=== PATIENT | male | born 1965 | race Caucasian/White ===

== ENCOUNTER 2021-02-02 20:21 | Emergency (ER) | payer SELFPAY ==
--- OUTSIDE RECORDS SUMMARY | 2021-02-02 20:24 | XMS REPORT | Continuity of Care Document ---
:1965 Author Organization [facility] t Address [address] [place] [address] Care Team Providers Name Role Phone Unavailable Unavailable Unavailable Problems This patient has no known problems. Allergies, Adverse Reactions, Alerts This patient has no known allergies or adverse reactions. Medications Ordered Filled Start Stop Current Ordering Indication Dosage Frequency Signature Comments Components Source Medication Medication Date Date Medication? Clinician (SIG) Name Name Glimepiride Glimepiride 2018-0 Yes Nichelle [address] [facility] Procedures This patient has no known procedures. Encounters Start End Encounter Admission Attending Care Care Encounter Source Date/Time Date/Time Type Type Clinicians Facility Department ID 2020-07-09 2020-07-09 Outpatient [facility] [id number] [facility] 2020-03-13 2020-03-13 Outpatient [facility] [id number] [facility] 2019-11-20 2019-11-20 [facility] [id number] [facility] 14:20[facility]00 14:20:00 [facility] Outpat[facility] ent Clinics 2019-11-19 2019-11-19 [facility] [id number] [facility] 11:47:00 11:47:00 [facility] Medicine Outpat[facility] Clinics 2019-09-19 2019-09-19 [facility] [id number] [facility] 10:20:00 10:20:00 [facility] Medicine Outpati ent Clinics 2019-09-17 2019-09-17 [facility] [id number] 09:17:00 09:17:00 [facility] Medicine Outpati ent Clinics 2019-09-10 2019-09-10 [facility] [id number] [facility] 15:32:00 15:32:00 [facility] Medicine Outpati ent Clinics 2018-09-04 2018-09-04 [facility] [id number] [facility] 15[facility]00[facility]00 15:00:00 [facility] Results This patient has no known results.
--- NOTE | 2021-02-02 21:58 | ER ---
Nurse's Notes [facility] Name: Boyd Jones Age: 55 yrs Sex: Male : 1965 Arrival Date: 02/02/2021 Time: 20:23 Bed Waiting Private MD: Diagnosis: ED Course: 02/02 20:23 Patient arrived in ED. bp1 20:38 Patient's name was called from ER lobby. No response. bb 21:58 Patient's name was called from ER lobby. No response. Unable to locate patient. Will bb disposition as left without being seen by a provider. Administered Medications: No medications were administered Outcome: 21:58 Patient left the ED. bb Signatures: Sally Astorga RN RN bb Misti Frank bp1
== END 2021-02-02 21:58 | disposition left against medical advice (07) ==
LOC: ER 20:21
DX: Z02.9 Encounter for administrative examinations, unspecified (principal)

== ENCOUNTER 2021-03-10 16:58 | Emergency (ER) | payer SELFPAY ==
[2021-03-10 19:18] LABS: SARS-COV-2 RT PCR POSITIVE (NEGATIVE)
[2021-03-10] MEDS ORDERED: IBUPROFEN 400 MG TAB ONE (21:53)
[2021-03-10] MEDS ORDERED: CASIRIVIMAB/IMDEVIMAB 10 ML VIAL ONE ×2 (22:09→22:11)
[2021-03-10] MEDS ORDERED: NA CHLORIDE 0.9% 250 ML ONE (22:11)
--- NOTE | 2021-03-11 00:48 | ER ---
[facility]'s Notes [facility] Name: Boyd Jones Age: 55 yrs Sex: Male : 1965 Arrival Date: 03/10/2021 Time: 16:59 Bed 30 Private MD: Nichelle Alvares Diagnosis: Coronavirus infection, unspecified Presentation: 03/10 17:26 Chief complaint: Patient states: Cough, SOB, low grade fever, loss of taste since ll1 Tuesday. Coronavirus screen: Vaccine status: Patient reports being unvaccinated. Client denies travel out of the [place] in the last 14 days. congestion, cough unrelated to allergies, difficulty breathing, fatigue, fever, headache, loss of taste or smell, Client presents with at least one sign or symptom that may indicate coronavirus-19. Standard/surgical mask placed on the client. Ebola Screen: Patient denies travel to an Ebola-affected area in the 21 days before illness onset. Initial Sepsis Screen: Does the patient meet any 2 criteria? HR > 90 bpm. No. Patient's initial sepsis screen is negative. Does the patient have a suspected source of infection? Yes: Productive cough/pneumonia. Risk Assessment: Do you want to hurt yourself or someone else? Patient reports no desire to harm self or others. Onset of symptoms was March 08, 2021. 17:26 Method Of Arrival: Ambulatory ll1 17:26 Acuity: LARISSA 3 ll1 Triage Assessment: 19:00 General: Appears uncomfortable. Pain: Complains of pain in face. cc4 19:00 General: Behavior is calm, cooperative. Respiratory: No deficits noted. Reports cc4 Nonproductive cough, sneezing, headache x 2 days Airway is patent. 19:00 Respiratory: Onset: The symptoms/episode began/occurred yesterday. cc4 19:00 Respiratory: the patient has mild shortness of breath. cc4 Historical: - Allergies: 17:25 No Known Allergies; ll1 - PMHx: 17:25 Diabetes - NIDDM; ll1 - PSHx: 17:25 None; ll1 - Immunization history:: Client reports having NOT received the Covid vaccine. Flu vaccine status is unknown. - Social history:: Smoking status: Patient denies any tobacco usage or history of. - Code Status:: Full code. Screenin:00 Abuse screen: Denies threats or abuse. Nutritional screening: No deficits noted. cc4 Tuberculosis screening: No symptoms or risk factors identified. Never had TB. Fall Risk None identified. Assessment: 19:00 Respiratory: Airway is patent Breath sounds are clear. cc4 19:00 Respiratory: Respiratory effort is even, unlabored, SOB on exertion. cc4 19:00 Cardiovascular: Rhythm is sinus rhythm No ectopy noted. cc4 22:10 Reassessment: Patient appears in no apparent distress at this time. IVPB Rengen-cov cc4 120mg/ml/250ml NS hung \T\ infusing with no difficulty left wrist saline lock; consent signed; information on Regen given to pt \T\ read.. 23:15 Reassessment: Patient appears in no apparent distress at this time. Reports decreasing cc4 headache; Regen-cov infusion complete with no adverse reaction; VSS; instructed on monitoring x 1 hour with v/u.. 03/11 01:15 Reassessment: Patient appears in no apparent distress at this time. Bicillin LA 1.2 mu cc4 given IM RUOQ gluteal, antonella. well.. 01:45 Reassessment: c/o chills; denies any SOB; no rash noted; no resp distress noted; J. cc4 CE Hitchcock notified with new order received; acetaminophen 1 g given po with discharge instructions, v/u.. Vital Signs: 03/10 17:26 BP 116 / 78; Pulse 93; Resp 17; Temp 98.6; Pulse Ox 99% ; Weight 108.86 kg; Height 5 ll1 ft. 9 in. (175.26 cm); Pain 8/10; 18:55 BP 116 / 76; Pulse 88; Resp 20; Pulse Ox 97% on R/A; ll1 21:30 BP 113 / 92; Pulse 81; Resp 22; Temp 99.4; Pulse Ox 100% on R/A; cc4 22:10 BP 120 / 81; Pulse 83; Resp 20; Pulse Ox 98% on R/A; cc4 23:15 BP 108 / 78; Pulse 81; Resp 20; Temp 99.2; Pulse Ox 97% on R/A; cc4 23:15 BP 108 / 78; Pulse 81; Resp 20; Temp 99.2(O); cc4 03/11 01:30 Temp 98.8(O); dc2 01:45 BP 143 / 81; Pulse 89; Resp 20; Temp 98.8(O); cc4 03/10 17:26 Body Mass Index 35.44 (108.86 kg, 175.26 cm) ll1 ED Course: 03/10 16:59 Patient arrived in ED. am2 16:59 Nichelle Alvares FNP-C is Private Physician. am2 17:25 Arm band placed on. ll1 17:27 Triage completed. ll1 19:00 Patient has correct armband on for positive identification. Bed in low position. Side cc4 rails up X 1. traffic monitor specialist on. Pulse ox on. NIBP on. 19:00 No provider procedures requiring assistance completed. COVID swab sent to lab. Flu cc4 and/or RSV swab sent to lab. Strep swab sent to lab. 19:03 Andrew Trent PA is PHCP. jacinto 19:03 Gonzalo Jones MD is Attending Physician. jacinto 19:14 Leanne Bauer is Primary Nurse. kh1 21:31 Inserted saline lock: 22 gauge in left wrist, using aseptic technique. vg1 03/11 01:45 IV discontinued, bleeding controlled, No redness/swelling at site. Pressure dressing cc4 applied. Administered Medications: 03/10 21:53 Drug: Ibuprofen 400 mg Route: PO; cc4 22:10 Drug: Casirivimab-Imdevimab Dose Pack 120 mg/mL-120 mg/mL (EUA) 1 application Route: cc4 IV; Rate: calculated rate; Site: left wrist; 23:15 Follow up: BP 108 / 78; Pulse 81 bpm; Resp 20 bpm; Temp 99.2 Oral; Response: No adverse cc4 reaction 03/11 01:10 Drug: Bicillin L-A (penicillin G Benzathine) 1.2 million units Route: IM; Site: right cc4 gluteus; 01:45 Follow up: Response: No adverse reaction cc4 01:45 Drug: Tylenol 1000 mg Route: PO; cc4 Outcome: 03/10 19:00 Condition: stable cc4 03/11 00:48 Discharge ordered by . thalia 01:45 Discharged to home via wheelchair. cc4 01:45 Condition: unchanged 01:45 Discharge instructions given to patient, Instructed on discharge instructions, follow up and referral plans. medication usage, Demonstrated understanding of instructions, follow-up care, medications. 03:13 Patient left the ED. cc4 Signatures: Andrew Trent PA PA jmm Moreno, Amanda am2 Garcia, Victoria, RN RN vg1 Nano Goncalves RN RN ll1 Leanne Bauer 1 Kathy Marin cc4 Krystal Larkin RN RN dc2 Corrections: (The following items were deleted from the chart) 03/10 23:44 23:33 Cardiovascular: Rhythm is sinus rhythm No ectopy. cc4 cc4 03/11 02:51 02:43 BP 143 / 81; Pulse 89 bpm; Resp 18 bpm; Temp 98.8; Response: No adverse reaction cc4 cc4
--- NOTE | 2021-03-11 00:48 | EDPHYS ---
Physician Documentation [facility] Name: Boyd Jones Age: 55 yrs Sex: Male : 1965 Arrival Date: 03/10/2021 Time: 16:59 Bed 30 Private MD: Nichelle Alvares ED Physician Gonzalo Jones HPI: 03/10 23:38 This 55 yrs old Male presents to ER via Ambulatory with complaints of Cough, jmm Breathing Difficulty. 23:38 The patient or guardian reports cough. Onset: The symptoms/episode began/occurred jmm gradually. Modifying factors: The symptoms are alleviated by nothing, the symptoms are aggravated by nothing. This is a 55 year old male with a history of dm that presents to the ED with complaints of sore throat, cough, shortness of breath beginning this past Tuesday. Is not immunized for coronavirus. . Historical: - Allergies: 17:25 No Known Allergies; ll1 - PMHx: 17:25 Diabetes - NIDDM; ll1 - PSHx: 17:25 None; ll1 - Immunization history:: Client reports having NOT received the Covid vaccine. Flu vaccine status is unknown. - Social history:: Smoking status: Patient denies any tobacco usage or history of. - Code Status:: Full code. ROS: 23:38 Constitutional: Positive for body aches, fatigue, fever. jmm 23:38 Cardiovascular: Positive for chest pain, with cough. 23:38 All other systems are negative. Exam: 23:38 Constitutional: This is a well developed, well nourished patient who is awake, alert, jmm and in no acute distress. Head/Face: atraumatic. Eyes: EOMI, no conjunctival erythema appreciated ENT: Moist Mucus Membranes Neck: Trachea midline, Supple Chest/axilla: Normal chest wall appearance and motion. Cardiovascular: Regular rate and rhythm. No edema appreciated Respiratory: Normal respirations, no respiratory distress appreciated Abdomen/GI: Non distended, soft Back: Normal ROM Skin: General appearance color normal MS/ Extremity: Moves all extremities, no obvious deformities appreciated, no edema noted to the lower extremities Neuro: Awake and alert, normal gait Psych: Behavior is normal, Mood is normal, Patient is cooperative and pleasant Vital Signs: 17:26 BP 116 / 78; Pulse 93; Resp 17; Temp 98.6; Pulse Ox 99% ; Weight 108.86 kg; Height 5 ll1 ft. 9 in. (175.26 cm); Pain 8/10; 18:55 BP 116 / 76; Pulse 88; Resp 20; Pulse Ox 97% on R/A; ll1 21:30 BP 113 / 92; Pulse 81; Resp 22; Temp 99.4; Pulse Ox 100% on R/A; cc4 22:10 BP 120 / 81; Pulse 83; Resp 20; Pulse Ox 98% on R/A; cc4 23:15 BP 108 / 78; Pulse 81; Resp 20; Temp 99.2; Pulse Ox 97% on R/A; cc4 23:15 BP 108 / 78; Pulse 81; Resp 20; Temp 99.2(O); cc4 03/11 01:30 Temp 98.8(O); dc2 01:45 BP 143 / 81; Pulse 89; Resp 20; Temp 98.8(O); cc4 03/10 17:26 Body Mass Index 35.44 (108.86 kg, 175.26 cm) ll1 MDM: 03/10 19:42 Patient medically screened. [facility] 03/11 00:44 Data reviewed: vital signs, nurses notes. Counseling: I had a detailed discussion with thalia the patient and/or guardian regarding: the historical points, exam findings, and any diagnostic results supporting the discharge/admit diagnosis, lab results, radiology results, the need for outpatient follow up, to return to the emergency department if symptoms worsen or persist or if there are any questions or concerns that arise at home. 03/10 17:29 Order name: Strep; Complete Time: 19:04 [facility] 03/10 19:19 Order name: COVID-19/FLU A+B; Complete Time: 19:43 [facility] 03/10 17:29 Order name: Droplet/Contact Precautions; Complete Time: 19:33 ll1 03/10 17:29 Order name: Labs collected and sent; Complete Time: 17:34 ll1 03/10 17:29 Order name: O2 Per Protocol; Complete Time: 19:33 ll1 Administered Medications: 03/10 21:53 Drug: Ibuprofen 400 mg Route: PO; cc4 22:10 Drug: Casirivimab-Imdevimab Dose Pack 120 mg/mL-120 mg/mL (EUA) 1 application Route: cc4 IV; Rate: calculated rate; Site: left wrist; 23:15 Follow up: BP 108 / 78; Pulse 81 bpm; Resp 20 bpm; Temp 99.2 Oral; Response: No adverse cc4 reaction 03/11 01:10 Drug: Bicillin L-A (penicillin G Benzathine) 1.2 million units Route: IM; Site: right cc4 gluteus; 01:45 Follow up: Response: No adverse reaction cc4 01:45 Drug: Tylenol 1000 mg Route: PO; cc4 Disposition: 07:21 Co-signature as Attending Physician, Gonzalo Jones MD I agree with the assessment and hattie plan of care. Disposition Summary: 03/11/21 00:48 Discharge Ordered Location: Home [facility] Condition: Stable [facility] Diagnosis - Coronavirus infection, unspecified [facility] Followup: jm - With: Private Physician - When: 2 - 3 days - Reason: Recheck today's complaints, Continuance of care, Re-evaluation by your physician Discharge Instructions: - Discharge Summary Sheet [facility] - COVID-19 [facility] Forms: - Medication Reconciliation Form [facility] - Thank You Letter jm - Antibiotic Education jm - Prescription Opioid Use [facility] Signatures: Dispatcher [employer] EDGonzalo Lora MD MD cha Mickail, Joel, PA PA jmm Lewis, Lynsay, RN RN ll1 Kathy Marin cc4 Corrections: (The following items were deleted from the chart) 03/10 18:00 17:30 Influenza Screen (A ordered. EDMS EDMS 18:00 17:30 Influenza Screen (A \T\ B)+[id number].BRZ ordered. EDMS EDMS
[2021-03-11] MEDS ORDERED: PEN G BENZ LA 1.2MU/2ML SYRINGE IM ONE (01:34)
[2021-03-11] MEDS ORDERED: ACETAMINOPHEN 500 MG TAB ONE (02:12)
[2021-03-11 04:46] VITALS: O2SAT 97
[2021-03-11 04:47] VITALS: TEMP 98.8
[2021-03-11 04:48] VITALS: BP 143/81
== END 2021-03-11 03:13 | disposition home or self-care (01) ==
LOC: ER 16:58
DX: U07.1 COVID-19 (principal); E11.9 Type 2 diabetes mellitus without complications
CPT/HCPCS: 0240U; 87081; 96372; 96374; 99284; J0561; J7050

== ENCOUNTER 2021-03-26 10:06 | Inpatient (IN) | payer SELFPAY ==
[2021-03-26 10:47] LABS: Absolute Lymphocytes (CBC) 1.1 K/uL (0.7-4.9); Basophils % 0.2 % (0-1.3); Hematocrit 43.3 % (39.6-49.0); Lymphocytes % 8.5 % (15.3-44.8); MPV 8.8 fL (7.6-11.3); RBC Red Blood Cell Count 4.78 M/uL (4.33-5.43)
[2021-03-26 10:53] LABS: Protime INR 1.26
[2021-03-26] MEDS ORDERED: NA CHLORIDE 0.9% 1,000 ML ONE (11:01)
[2021-03-26] MEDS ORDERED: ACETAMINOPHEN 500 MG TAB ONE (11:01)
[2021-03-26 11:10] LABS: ALT/SGPT 116 U/L (12-78); AST/SGOT 50 U/L (15-37); Alkaline Phosphatase 112 U/L (45-117); BUN Blood Urea Nitrogen 25 mg/dL (7-18); Bicarbonate 26 mmol/L (21-32); Bilirubin Direct 0.2 mg/dL (0-0.2); Bilirubin Total 0.4 mg/dL (0.2-1.0); Ferritin 1553.5 ng/mL (26-388); Glucose Level 345 mg/dL (74-106); Magnesium 1.6 mg/dL (1.8-2.4); NT PRO-BNP 1221 pg/mL (<125); Potassium 4.1 mmol/L (3.5-5.1); Protein, Total 7.9 g/dL (6.4-8.2); Sodium Level 134 mmol/L (136-145); Troponin (Emerg Dept Use Only) < 0.02 ng/mL (0.0-0.045)
--- NOTE | 2021-03-26 11:12 | RAD REPORT ---
EXAM DESCRIPTION: RAD - Chest Single View - 03/26/2021 10:59 am CLINICAL HISTORY: Cough;Dyspnea Chest pain. COMPARISON: CHEST SINGLE VIEW dated 01/27/2010 FINDINGS: Portable technique limits examination quality. Moderate bibasilar pulmonary opacities are present, greater on the right, most compatible with underl chanelle COVID infection. The heart is normal in size. No displaced fractures.
--- NOTE | 2021-03-26 11:18 | EDPHYS ---
Physician Documentation [facility] Name: Boyd Jones Age: 55 yrs Sex: Male : 1965 Arrival Date: 03/26/2021 Time: 10:08 Bed 24 Private MD: Gonzalo Ronquillo HPI: 03/26 10:45 This 55 yrs old Male presents to ER via EMS with complaints of cp and sob, hattie covid. 10:45 The patient has shortness of breath at rest, with light activity. Onset: The hattie symptoms/episode began/occurred last night. Duration: The symptoms are continuous, and are steadily getting worse. The patient's shortness of breath is aggravated by coughing, exertion, light activity, is alleviated by sitting up, application of supplemental oxygen. The patient or guardian reports chest pain that is located primarily in the anterior chest wall, chest diffusely. Onset: last night. The patient or guardian reports airway noise, cough, difficulty breathing, flu symptoms. Modifying factors: The symptoms are alleviated by elevating head, remaining still, rest, the symptoms are aggravated by activity, lying flat, talking. The pain does not radiate. Associated signs and symptoms: Pertinent positives: non-productive cough, fever. Historical: - Allergies: 10:20 No Known Allergies; tc5 - PMHx: 10:20 Hypertensive disorder; tc5 - Immunization history:: Adult Immunizations not up to date, Client reports having NOT received the Covid vaccine. Last tetanus immunization: > 10 years ago. - Social history:: Smoking status: Patient denies any tobacco usage or history of. Patient uses alcohol, occasionally. - Family history:: not pertinent. ROS: 10:45 Eyes: Negative for injury, pain, redness, and discharge, ENT: Negative for injury, hattie pain, and discharge, Neck: Negative for injury, pain, and swelling, Cardiovascular: Negative for chest pain, palpitations, and edema, Abdomen/GI: Negative for abdominal pain, nausea, vomiting, diarrhea, and constipation, Back: Negative for injury and pain, : Negative for injury, bleeding, discharge, and swelling, MS/Extremity: Negative for injury and deformity, Skin: Negative for injury, rash, and discoloration, Neuro: Negative for headache, weakness, numbness, tingling, and seizure, Psych: Negative for depression, anxiety, suicide ideation, homicidal ideation, and hallucinations, Allergy/Immunology: Negative for hives, rash, and allergies, Endocrine: Negative for neck swelling, polydipsia, polyuria, polyphagia, and marked weight changes, Hematologic/Lymphatic: Negative for swollen nodes, abnormal bleeding, and unusual bruising. 10:45 Constitutional: Positive for body aches, fatigue, fever. 10:45 Constitutional: Positive for Exam: 10:47 Head/Face: Normocephalic, atraumatic. Eyes: Pupils equal round and reactive to light, hattie extra-ocular motions intact. Lids and lashes normal. Conjunctiva and sclera are non-icteric and not injected. Cornea within normal limits. Periorbital areas with no swelling, redness, or edema. Back: No spinal tenderness. No costovertebral tenderness. Full range of motion. Neuro: Awake and alert, GCS 15, oriented to person, place, time, and situation. Cranial nerves II-XII grossly intact. Motor strength 5/5 in all extremities. Sensory grossly intact. Cerebellar exam normal. Normal gait. Psych: Awake, alert, with orientation to person, place and time. Behavior, mood, and affect are within normal limits. 10:47 Constitutional: The patient appears febrile, in obvious distress, mildly distressed, moderately distressed. 10:47 Cardiovascular: Rate: tachycardic, Rhythm: regular, Pulses: Pulses are 4+ in bilateral radial, brachial, femoral, popliteal, posterior tibial and and dorsalis pedis arteries.. Heart sounds: normal, Edema: is not appreciated, JVD: is not appreciated. 10:47 ECG was reviewed by the Attending Physician. Vital Signs: 10:17 BP 118 / 75; Pulse 114; Resp 30; Temp 100.8; Pulse Ox 96% 5 lpm ; Weight 108.86 kg; tc5 Height 5 ft. 9 in. (175.26 cm); Pain 10/10; 11:50 BP 108 / 79; Pulse 98; Resp 28; Pulse Ox 98% 5 lpm ; tc5 12:35 BP 86 / 61; Pulse 90; Resp 15; Pulse Ox 96% 5 lpm ; tc5 13:45 BP 90 / 59; Pulse 83; Resp 18; Pulse Ox 95% on 5 lpm NC; vg1 10:17 Body Mass Index 35.44 (108.86 kg, 175.26 cm) tc5 MDM: 10:08 Patient medically screened. hattie 10:49 Differential diagnosis: Anxiety Reaction Bronchitis Chronic Obstructive Pulmonary hattie Disease bronchitis, flu, URI, Myocardial Infarction pneumonia, pulmonary edema, reactive airway disease, Unstable Angina. Antibiotic administration: Rocephin and Zithromax given. HEART Score: History: Slightly Suspicious (0), ECG: Non specific repolarization disturbance / LBTB / PM (1), Age: > 45 and < 65 years (1), Risk Factors: > or = 3 Risk factors for atherosclerotic disease (2), [Hypertension] [+ Family HX] [Obesity] Troponin: < or = 1 x Normal Limit (0). The patient was not given aspirin in the Emergency Department. Not indicated due to patient's past medical history. The patient's Wells Deep Vein Thrombosis Score was calculated as follows: the patient has recently been bedridden for more than three days or has received major surgery in the last four weeks (1 Pt) Total Score: 1 to 2 points. This patient was found to be at moderate risk for a deep vein thrombosis by using the Well's assessment criteria Heart Rate >100 BPM (1.5 Pts) Imm/Surg in last 4 wks (1.5 Pts) Total Score: 3-6 Pts - Mod Risk. The patient's pulmonary embolism risk score was calculated as follows: the patients heart rate is greater than 100 beats per minute (1.5 Pts) patient has experienced immobilization or surgery in the last four weeks (1.5 Pts) the patient has a history of a previous deep vein thrombosis or pulmonary embolism (1.5 Pts) Total Score: 3-6 points. This patient was found to be at moderate risk for a pulmonary embolism by using the Well's assessment criteria the patients heart rate is greater than 100 beats per minute (1.5 Pts) patient has experienced immobilization or surgery in the last four weeks (1.5 Pts) Total Score: 3-6 points. This patient was found to be at moderate risk for a pulmonary embolism by using the Well's assessment criteria. DARLINE Risk Score: 1 - Three or more CAD risk factors, TOTAL SCORE = 1. Immunization status: Influenza vaccine: Data reviewed: vital signs, nurses notes, lab test result(s), EKG, radiologic studies, CT scan, plain films. Data interpreted: night monitor: rate is 114 beats/min, rhythm is regular, Pulse oximetry: on room air is 96 %. Test interpretation: by ED physician or midlevel provider: ECG, plain radiologic studies. 03/26 10:10 Order name: Basic Metabolic Panel; Complete Time: 11:25 [facility] 03/26 10:10 Order name: CBC with Diff [facility] 03/26 10:10 Order name: LFT's; Complete Time: 11:25 [facility] 03/26 10:10 Order name: Magnesium; Complete Time: 11:25 [facility] 03/26 10:10 Order name: NT PRO-BNP; Complete Time: 11:25 [facility] 03/26 10:10 Order name: PT-INR; Complete Time: 11:00 [facility] 03/26 10:10 Order name: Troponin (emerg Dept Use Only); Complete Time: 11:25 [facility] 03/26 10:10 Order name: Ferritin; Complete Time: 11:25 [facility] 03/26 10:10 Order name: CRP; Complete Time: 11:25 [facility] 03/26 10:26 Order name: Glucose, Ancillary Testing; Complete Time: 11:00 [facility] 03/26 10:31 Order name: Blood Culture Adult (2) [facility] 03/26 10:31 Order name: Lactate; Complete Time: 11:25 [facility] 03/26 10:59 Order name: SARS-COV-2 RT PCR [facility] 03/26 10:10 Order name: XRAY Chest (1 view); Complete Time: 11:25 [facility] 03/26 10:10 Order name: CT Chest For PE Angio [facility] 03/26 11:11 Order name: INCENTIVE SPIROMETRY [facility] 03/26 12:29 Order name: Manual Differential [facility] 03/26 13:15 Order name: Glucose, Ancillary Testing [facility] 03/26 10:10 Order name: EKG; Complete Time: 10:11 [facility] 03/26 10:10 Order name: Cardiac monitoring; Complete Time: 10:20 [facility] 03/26 10:10 Order name: EKG - Nurse/Tech; Complete Time: 10:20 [facility] 03/26 10:10 Order name: IV Saline Lock; Complete Time: 10:20 [facility] 03/26 10:10 Order name: Labs collected and sent; Complete Time: 12:24 [facility] 03/26 10:10 Order name: O2 Per Protocol; Complete Time: 10:20 [facility] 03/26 10:10 Order name: O2 Sat Monitoring; Complete Time: 10:20 [facility] 03/26 10:10 Order name: Urine Dipstick-Ancillary (obtain specimen) [facility] EC:47 Rate is 123 beats/min. Rhythm is regular. QRS [place] is Normal. MD interval is normal. hattie QRS interval is normal. QT interval is normal. No Q waves. T waves are Normal. No ST changes noted. Clinical impression: Sinus tachycardia and No evidence of ischemia. Interpreted by me. Reviewed by me. Administered Medications: 10:35 Drug: Tylenol 1000 mg Route: PO; tc5 11:18 Follow up: Response: No adverse reaction tc5 10:42 Drug: NS 0.9% 1000 ml Route: IV; Rate: 1 bolus; Site: left antecubital; tc5 11:10 Drug: Lovenox (enoxaparin) 100 mg Route: Sub-Q; Site: abdomen; tc5 16:05 Follow up: Response: No adverse reaction tc5 11:15 Drug: Rocephin (cefTRIAXone) 1 grams Route: IV; Rate: per protocol; Site: left tc5 antecubital; 11:15 Drug: Pepcid (famotidine) 20 mg Route: IVP; Site: left antecubital; tc5 16:06 Follow up: Response: No adverse reaction tc5 11:50 Drug: Zithromax (azithromycin) 500 mg Route: IVPB; Infused Over: 1 hrs; Site: left hand;tc5 12:20 Drug: Aspirin Chewable Tablet 162 mg Route: PO; tc5 16:04 Follow up: Response: No adverse reaction tc5 12:25 Drug: SOLU-Medrol (methylPrednisoLONE) 125 mg Route: IVP; Site: left antecubital; tc5 16:04 Follow up: Response: No adverse reaction tc5 12:26 Drug: Zofran (Ondansetron) 4 mg Route: IVP; Site: left antecubital; tc5 16:05 Follow up: Response: No adverse reaction tc5 12:28 Drug: morphine 2 mg Route: IVP; Site: left antecubital; tc5 16:05 Follow up: Response: No adverse reaction; Pain is decreased tc5 13:03 Drug: Singulair 10 mg Route: PO; tc5 16:05 Follow up: Response: No adverse reaction tc5 Point of Care Testing: Blood Glucose: 10:24 Blood Glucose: 334 mg/dL; tc5 Ranges: Critical Glucose Levels:Adult <50 mg/dl or >400 mg/dl <40 mg/dl or >180 mg/dl Disposition Summary: 03/26/21 11:17 Hospitalization Ordered Hospitalization Status: Inpatient Admission hattie Provider: Tao Tabor cha Location: Telemetry/MedSurg (Inpatient) hattie Condition: Fair hattie Problem: new hattie Symptoms: have improved hattie Bed/Room Type: Standard [facility] Room Assignment: 402(03/26/21 14:52) dw Diagnosis - Chest pain on breathing hattie - Coronavirus infection, unspecified hattie - Pneumonia due to SARS-associated coronavirus hattie - Pulmonary embolism without acute cor pulmonale hattie - Fever, unspecified hattie - Dyspnea hattie Forms: - Medication Reconciliation Form hattie - SBAR form hattie Signatures: Dispatcher [employer] EDMS Michelle Kaufman RN RN Gonzalo Gonzalez MD MD cha Attema, Lee la3 Kavita Rothman RN RN tc5 Corrections: (The following items were deleted from the chart) 10:59 10:45 CORONAVIRUS+[id number].BRZ ordered. EDCA EDMS 14:52 11:17 hattie dw
--- NOTE | 2021-03-26 11:18 | ER ---
Nurse's Notes [facility] Name: Boyd Jones Age: 55 yrs Sex: Male : 1965 Arrival Date: 03/26/2021 Time: 10:08 Bed 24 Private MD: Diagnosis: Chest pain on breathing;Coronavirus infection, unspecified;Pneumonia due to SARS-associated coronavirus;Pulmonary embolism without acute cor pulmonale;Fever, unspecified;Dyspnea Presentation: 03/26 10:17 Chief complaint: EMS states: increased SOB, COVID pos 03/05/21, discharged from the [facility] hospital yesterday on home 02. Coronavirus screen: Vaccine status: Patient reports being unvaccinated. Client presents with at least one sign or symptom that may indicate coronavirus-19. Provider contacted for isolation considerations. Client reports previous positive COVID test result. Ebola Screen: No symptoms or risks identified at this time. Initial Sepsis Screen: Does the patient meet any 2 criteria? RR > 20 per min. HR > 90 bpm. Risk Assessment: Do you want to hurt yourself or someone else? Patient reports no desire to harm self or others. Onset of symptoms was March 25, 2021 at 22:00. 10:17 Method Of Arrival: EMS: [facility] 10:17 Acuity: LARISSA 2 [facility] Triage Assessment: 10:22 General: Appears distressed, Behavior is cooperative, anxious. Pain: Complains of pain tc5 in diaphragm. Neuro: No deficits noted. Cardiovascular: No deficits noted. ST on monitor.. Respiratory: Reports shortness of breath pain with movement pain with respiration since yesterday Respiratory effort is shallow, Respiratory pattern is tachypnea. GI: No deficits noted. : No deficits noted. Historical: - Allergies: 10:20 No Known Allergies; tc5 - PMHx: 10:20 Hypertensive disorder; tc5 - Immunization history:: Adult Immunizations not up to date, Client reports having NOT received the Covid vaccine. Last tetanus immunization: > 10 years ago. - Social history:: Smoking status: Patient denies any tobacco usage or history of. Patient uses alcohol, occasionally. - Family history:: not pertinent. Assessment: 10:24 Reassessment: No changes from previously documented assessment. General: Appears tc5 distressed, Behavior is cooperative, anxious. Pain: Complains of pain in chest. Vital Signs: 10:17 BP 118 / 75; Pulse 114; Resp 30; Temp 100.8; Pulse Ox 96% 5 lpm ; Weight 108.86 kg; tc5 Height 5 ft. 9 in. (175.26 cm); Pain 10/10; 11:50 BP 108 / 79; Pulse 98; Resp 28; Pulse Ox 98% 5 lpm ; tc5 12:35 BP 86 / 61; Pulse 90; Resp 15; Pulse Ox 96% 5 lpm ; tc5 13:45 BP 90 / 59; Pulse 83; Resp 18; Pulse Ox 95% on 5 lpm NC; vg1 10:17 Body Mass Index 35.44 (108.86 kg, 175.26 cm) tc5 ED Course: 10:08 Patient arrived in ED. em1 10:08 Gonzalo Jones MD is Attending Physician. hattie 10:17 Kavita Rothman, RN is Primary Nurse. tc5 10:20 Triage completed. tc5 10:20 EKG done, by ED staff, reviewed by Gonzalo Jones MD. vg1 10:24 Inserted saline lock: 20 gauge in left hand, using aseptic technique. ,using aseptic tc5 technique. placed by ems. 10:30 Missed attempt(s): 20 gauge in right antecubital area. vg1 10:59 XRAY Chest (1 view) In Process Unspecified. EDMS 11:12 Tao Tabor MD is Hospitalizing Provider. hattie 11:31 CT Chest For PE Angio In Process Unspecified. EDMS Administered Medications: 10:35 Drug: Tylenol 1000 mg Route: PO; tc5 11:18 Follow up: Response: No adverse reaction tc5 10:42 Drug: NS 0.9% 1000 ml Route: IV; Rate: 1 bolus; Site: left antecubital; tc5 11:10 Drug: Lovenox (enoxaparin) 100 mg Route: Sub-Q; Site: abdomen; tc5 16:05 Follow up: Response: No adverse reaction tc5 11:15 Drug: Rocephin (cefTRIAXone) 1 grams Route: IV; Rate: per protocol; Site: left tc5 antecubital; 11:15 Drug: Pepcid (famotidine) 20 mg Route: IVP; Site: left antecubital; tc5 16:06 Follow up: Response: No adverse reaction tc5 11:50 Drug: Zithromax (azithromycin) 500 mg Route: IVPB; Infused Over: 1 hrs; Site: left hand;tc5 12:20 Drug: Aspirin Chewable Tablet 162 mg Route: PO; tc5 16:04 Follow up: Response: No adverse reaction tc5 12:25 Drug: SOLU-Medrol (methylPrednisoLONE) 125 mg Route: IVP; Site: left antecubital; tc5 16:04 Follow up: Response: No adverse reaction tc5 12:26 Drug: Zofran (Ondansetron) 4 mg Route: IVP; Site: left antecubital; tc5 16:05 Follow up: Response: No adverse reaction tc5 12:28 Drug: morphine 2 mg Route: IVP; Site: left antecubital; tc5 16:05 Follow up: Response: No adverse reaction; Pain is decreased tc5 13:03 Drug: Singulair 10 mg Route: PO; tc5 16:05 Follow up: Response: No adverse reaction tc5 Point of Care Testing: Blood Glucose: 10:24 Blood Glucose: 334 mg/dL; tc5 Ranges: Outcome: 11:17 Decision to Hospitalize by Provider. [facility] 16:53 Patient left the ED. iw Signatures: Dispatcher [employer] EDGonzalo Lora MD MD cha Williams, Irene, RN RN Azael Agawral Victoria, RN RN vg1 Kavita Rothman RN RN tc5
[2021-03-26] MEDS ORDERED: AZITHROMYCIN 500 MG INJ IVPB ONE (11:26)
[2021-03-26] MEDS ORDERED: ENOXAPARIN 100 MG/ML SYR SQ ONE (11:26)
[2021-03-26] MEDS ORDERED: FAMOTIDINE 20 MG/2 ML VIAL IV ONE (11:27)
[2021-03-26] MEDS ORDERED: NA CHLORIDE 0.9% 250 ML ONE (11:27)
[2021-03-26] MEDS ORDERED: CEFTRIAXONE 1000 MG/VIAL ONE (11:27)
--- NOTE | 2021-03-26 11:58 | RAD REPORT ---
EXAM DESCRIPTION: CT - Chest For Pe Angio - 03/26/2021 11:31 am CLINICAL HISTORY: Chest pain. Chest pain;Dyspnea COMPARISON: Chest Single View dated 03/26/2021 TECHNIQUE: CT angiogram of the pulmonary arteries was performed with MIP. All CT scans are performed using dose optimization technique as appropriate and may include automated exposure control or mA/KV adjustment according to patient size. FINDINGS: No evidence of pulmonary thromboembolism. No acute aortic finding demonstrated. There is extensive bilateral pulmonary opacities present, greater on the right. Small right pleural effusion present. Small amount of the fluid is loculated in the right fissure. No concerning bony finding. IMPRESSION: No evidence of pulmonary thromboembolism. Extensive bilateral pulmonary opacities are present, greater on the right, with small amount of right pleural fluid. Infection/ pneumonia is felt to be most likely.
[2021-03-26] MEDS ORDERED: MONTELUKAST 10 MG TAB PO ONE (12:00)
[2021-03-26] MEDS ORDERED: ACETAMINOPHEN 500 MG TAB PO PRN (12:08)
[2021-03-26] MEDS ORDERED: ONDANSETRON 4 MG/2 ML VIAL IV PRN (12:08)
[2021-03-26 12:28] LABS: Platelet Estimate ADEQ
--- NOTE | 2021-03-26 12:28 | P.HP ---
Certification for Inpatient Patient admitted to: Inpatient With expected LOS: >2 Midnights Patient will require the following post-hospital care: Other (Oxygen) Practitioner: I am a practitioner with admitting privileges, knowledge of patient current condition, hospital course, and medical plan of care. Services: Services provided to patient in accordance with Admission requirements found in Title 42 Section 412.3 of the Code of Federal Regulations <Juan Manuel James - Last Filed: 03/26/21 14:28> Patient History Date of Service: 03/26/21 Primary Care Provider: Dr. Alvares Reason for admission: Covid Pneumonia History of Present Illness: Chest Single View - 03/26/2021 10:59 am CLINICAL HISTORY: Cough;Dyspnea COMPARISON: CHEST SINGLE VIEW dated 01/27/2010 FINDINGS: Moderate bibasilar pulmonary opacities are present, greater on the right, most compatible with underlying COVID infection. The heart is normal in size. No displaced fractures. CT - Chest For Pe Angio - 03/26/2021 11:31 am CLINICAL HISTORY: Chest pain. COMPARISON: Chest Single View dated 03/26/2021 FINDINGS: No evidence of pulmonary thromboembolism. No acute aortic finding demonstrated. There is extensive bilateral pulmonary opacities present, greater on the right. Small right pleural effusion present. Small amount of the fluid is loculated in the right fissure. No concerning bony finding. IMPRESSION: No evidence of pulmonary thromboembolism. Extensive bilateral pulmonary opacities are present, greater on the right, with small amount of right pleural fluid. Infection/ pneumonia is felt to be most likely. Patient labs are remarkable for blood sugar of 345, AST of 50, ALT of 116, magnesium of 1.6, a BNP of 1221, a ferritin of 1553.5, CRP of 67. Patient's lactate was 1.5 and the troponin was less than 0.2. The patient became ill approximately 2 weeks ago. He was diagnosed with Covid and came here for the antibodies. Shortly thereafter he became more ill and went to [facility] where he was admitted for 5 days. At the end of this 5 days he was discharged to home. He was home 1 day. The evening of that first day he developed severe chest pain with inspiration. He came to the emergency room in the morning. He was noted to be short of breath and having grunting respirations. His CT did not indicate any further pulmonary emboli. He does however have multi lobar pneumonia. He is on nasal cannula oxygen at 5 L with O2 sats of 95%. Any movement causes significant dyspnea. Home medications list reviewed: Yes - Past Medical/Surgical History Diabetic: Yes -: DM -: COVID-19 pneumonia -: Dyspnea on exertion -: Multifocal pneumonia -: Pulmonary embolism -: Cholelithiasis -: Abdominal pain -: Neuropathy -: Right knee sx/repair Psychosocial/ Personal History: Currently unemployed. Lives at home by himself - Family History Father -: Diabetes Mother -: Heart disease Sister -: Heart disease - Social History Smoking Status: Never smoker Alcohol use: Yes CD- Drugs: No Caffeine use: Yes Place of Residence: Home <Juan Manuel James - Last Filed: 03/26/21 14:28> Date of Service: 03/26/21 <Tao Tabor - Last Filed: 03/29/21 20:58> Allergies No Known Allergies Allergy (Unverified 09/06/17 15:47) Home Medications: Metformin HCl 1,000 mg PO BID 12/18/18 Review of Systems 10-point ROS is otherwise unremarkable General: Fever, Weakness, Malaise Eyes: Unremarkable ENT: Unremarkable Respiratory: Cough, Shortness of Breath, SOB with Excertion Cardiovascular: Chest Pain Gastrointestinal: Abdominal Pain Genitourinary: Unremarkable Musculoskeletal: Other (Neuropathy) Integumentary: Unremarkable Neurological: Unremarkable Lymphatics: Unremarkable <Juan Manuel James - Last Filed: 03/26/21 14:28> Physical Examination - Physical Exam General: Alert, Oriented x3, Moderate distress HEENT: Atraumatic, Normocephalic Neck: Supple, JVD not distended Respiratory: Diminished, Other (Grunting on expiration, unable to take deep breaths. ) Cardiovascular: Normal pulses, Regular rate/rhythm Capillary refill: <2 Seconds Gastrointestinal: Soft and benign, Non-distended, Other (Complains of cramp like pains in lower back radiating around right abdomen) Musculoskeletal: No swelling, No contractures, No erythema Integumentary: No rashes, No breakdown Neurological: Normal speech, Normal strength at 5/5 x4 extr, Normal tone External genitalia: Deferred Rectal: Deferred - Studies Laboratory Data (last 24 hrs) 03/26/21 10:38: PT 14.5 H, INR 1.26 03/26/21 10:38: WBC 12.60 H, Hgb 14.6, Hct 43.3, Plt Count 309 03/26/21 10:38: Sodium 134 L, Potassium 4.1, BUN 25 H, Creatinine 1.09, Glucose 345 H, Magnesium 1.6 L, Total Bilirubin 0.4, AST 50 H, ALT 116 H, Alkaline Phosphatase 112 <Juan Manuel James - Last Filed: 03/26/21 14:28> Assessment and Plan - Plan Assessment: COVID-19 Pneumonia Dyspnea on exertion Multifocal pneumonia Prior pulmonary embolism Diabetes Plan: Covid 19 Pneumonia: Oxygen titrated to Sat of 93% or greater. Standard labs plus d-dimer, crp and ferritin. Solumedrol 80mg bid and vitamins. Dyspnea on exertion: Pt on O2, monitored for SATs, morphine and Ativan prn. Multifocal pneumonia: Rocephin and Zithromax IV QD Prior pulmonary embolism: Eliquis 5mg bid Diabetes: Continue Metformin and Glimepiride. Sliding scale as necessary Neuropathy : Continue Gabapentin 600mg tid. DVT PPx: Eliquis 5mg BID CODE STATUS: Full Code Discharge Plan: Home Plan to discharge in: Unknown - Advance Directives Does patient have a Living Will: No Does patient have a Durable POA for Healthcare: No - Code Status/Comfort Care Code Status Assessed: Yes Code Status: Full Code Critical Care: No Time Spent Managing Pts Care (In Minutes): 70 <Juan Manuel James - Last Filed: 03/26/21 14:28> - Problems (Diagnosis) (1) 2019 novel coronavirus-infected pneumonia (NCIP) Current Visit: Yes Status: Acute (2) Pulmonary embolism Current Visit: Yes Status: Acute Qualifiers: Pulmonary embolism type: other Chronicity: chronic Acute cor pulmonale presence: without acute cor pulmonale Qualified Code(s): I27.82 - Chronic pulmonary embolism (3) Hypoxemia Current Visit: Yes Status: Acute (4) Anxiety disorder Current Visit: Yes Status: Acute <Tao Tabor - Last Filed: 03/29/21 20:58> Date of Service: 03/26/21 Subjective Agree with plan of care per HPI as mentioned above Review of Systems 10-point ROS is otherwise unremarkable Physical Examination - Vital Signs Reviewed - Physical Exam General: Alert, In no apparent distress, Oriented x3 Respiratory: Diminished, Crackles/rales Cardiovascular: Regular rate/rhythm, Normal S1 S2, No murmurs Gastrointestinal: Normal bowel sounds, Soft and benign, Non-distended, No tenderness Neurological: Normal speech, Normal tone, Normal affect Assessment & Plan - Problems (Diagnosis) (1) 2019 novel coronavirus-infected pneumonia (NCIP) Current Visit: Yes Status: Acute (2) Pulmonary embolism Current Visit: Yes Status: Acute Qualifiers: Pulmonary embolism type: other Chronicity: chronic Acute cor pulmonale presence: without acute cor pulmonale Qualified Code(s): I27.82 - Chronic pulmonary embolism (3) Hypoxemia Current Visit: Yes Status: Acute (4) Anxiety disorder Current Visit: Yes Status: Acute - Plan Continue with plan of care as mentioned below: 1. Continue with IV steroids 2. Monitor inflammatory markers 3. Repeat chest x-ray 4. O2 per protocol 5. Pulmonary consultation 6. Continue Dulero 7. Continue anti coagulation 8. GI and DVT prophylaxis Discharge Plan: Home Plan to discharge in: Greater than 2 days - Advance Directives Does patient have a Living Will: No Does patient have a Durable POA for Healthcare: No - Code Status/Comfort Care Code Status: Full Code Critical Care: No Time Spent Managing PTS Care (In Minutes): 35 <Tao Tabor - Last Filed: 03/29/21 20:58>
[2021-03-26 12:29] LABS: Blood Morphology Comment NOT SEEN (NOT SEEN)
[2021-03-26] MEDS ORDERED: METHYLPREDNISOLONE 125 MG INJ ONE (12:39)
[2021-03-26] MEDS ORDERED: ONDANSETRON 4 MG/2 ML VIAL ONE (12:39)
[2021-03-26] MEDS ORDERED: ASPIRIN 81 MG CHEWABLE TABLET ONE (12:40)
[2021-03-26] MEDS ORDERED: MORPHINE 4 MG/ML SYR ONE (12:42)
[2021-03-26] MEDS ORDERED: MORPHINE 2 MG/ML SYR IV PRN (12:54)
[2021-03-26] MEDS ORDERED: LORazepam 2 MG/ML VIAL IV PRN (12:54)
[2021-03-26] MEDS ORDERED: NA CHLORIDE 0.9% 1,000 ML IV SCH (13:00)
[2021-03-26 13:18] VITALS: BMI 35.4
[2021-03-26] MEDS ORDERED: INSULIN -REGULAR HUMAN 50 UNIT/0.5 ML ML SQ SCH (16:30)
[2021-03-26] MEDS ORDERED: METFORMIN HCL 500 MG TAB PO SCH (17:00)
[2021-03-26] MEDS: GLIMEPIRIDE 2 MG TABLET PO SCH (17:32)
[2021-03-26] MEDS: GABAPENTIN 300 MG CAP PO SCH ×2 (17:32→20:49)
[2021-03-26] MEDS ORDERED: MORPHINE 4 MG/ML SYR IV PRN (17:52)
[2021-03-26] MEDS ORDERED: GLUCAGON 1 MG/VIAL IM PRN (17:56)
[2021-03-26] MEDS ORDERED: D50W 25 GM/50 ML SYRINGE IV PRN (17:56)
[2021-03-26] MEDS ORDERED: ALBUMIN HUMAN 25% 100 ML IV ONE (17:58)
[2021-03-26] MEDS ORDERED: FENTANYL CITR 100 MCG/2 ML IV PRN (17:59)
[2021-03-26 18:19] LABS: Urine Appearance CLEAR (Clear); Urine Bilirubin NEGATIVE (Negative); Urine Blood NEGATIVE (Negative); Urine Color YELLOW (Yellow); Urine Glucose 3+ (Negative); Urine Protein NEGATIVE (Negative); Urine Specific Gravity >=1.030 (1.005-1.030); Urine Urobilinogen 0.2 mg/dL (0.2-1.0)
[2021-03-26 18:25] LABS: Urine Microscopic Reflex NO UMIC
[2021-03-26] MEDS: FAMOTIDINE 20 MG/2 ML VIAL IV SCH (20:49)
[2021-03-26] MEDS: FENTANYL CITR 100 MCG/2 ML IV PRN (20:50)
[2021-03-26] MEDS: APIXABAN 5 MG TABLET PO SCH (20:50)
[2021-03-26] MEDS ORDERED: METHYLPREDNISOLONE 40 MG INJ IV SCH (21:00)
[2021-03-26] MEDS: METHYLPREDNISOLONE 40 MG INJ IV SCH (21:00)
[2021-03-26] MEDS: INSULIN -REGULAR HUMAN 50 UNIT/0.5 ML ML SQ SCH (21:53)
[2021-03-27 06:42] LABS: Absolute Lymphocytes (CBC) 0.8 K/uL (0.7-4.9); Basophils % 0.2 % (0-1.3); Hematocrit 35.5 % (39.6-49.0); Lymphocytes % 5.2 % (15.3-44.8); MPV 8.8 fL (7.6-11.3); RBC Red Blood Cell Count 3.95 M/uL (4.33-5.43)
[2021-03-27 07:04] LABS: ALT/SGPT 81 U/L (12-78); AST/SGOT 15 U/L (15-37); Albumin 2.5 g/dL (3.4-5.0); Alkaline Phosphatase 86 U/L (45-117); BUN Blood Urea Nitrogen 25 mg/dL (7-18); Bicarbonate 26 mmol/L (21-32); Bilirubin Total 0.3 mg/dL (0.2-1.0); Ferritin 1292.3 ng/mL (26-388); Glucose Level 231 mg/dL (74-106); HDL Cholesterol 43 mg/dL (40-60); LDL Cholesterol, Calculated 94 (<130); Magnesium 1.9 mg/dL (1.8-2.4); Potassium 4.3 mmol/L (3.5-5.1); Protein, Total 6.6 g/dL (6.4-8.2); Sodium Level 135 mmol/L (136-145)
[2021-03-27] MEDS: VITAMIN D 1000 UNIT TAB PO SCH (08:59)
[2021-03-27] MEDS: GABAPENTIN 300 MG CAP PO SCH ×3 (08:59→20:40)
[2021-03-27] MEDS: METHYLPREDNISOLONE 40 MG INJ IV SCH (08:59)
[2021-03-27] MEDS: APIXABAN 5 MG TABLET PO SCH ×2 (09:00→20:41)
[2021-03-27] MEDS ORDERED: lisinopriL 20 MG TAB PO SCH (09:00)
[2021-03-27] MEDS: ZINC SULFATE 220 MG CAP PO SCH (09:00)
[2021-03-27] MEDS: FAMOTIDINE 20 MG/2 ML VIAL IV SCH ×2 (09:00→20:42)
[2021-03-27] MEDS ORDERED: CEFTRIAXONE 1 GM/NS 50 ML 1 GM/50 ML BAG IV SCH (09:00)
[2021-03-27] MEDS ORDERED: AZITHROMYCIN IV 250 MG in NA CHLORIDE 0.9% 250 ML IVPB SCH (09:00)
[2021-03-27] MEDS: GLIMEPIRIDE 2 MG TABLET PO SCH ×2 (09:00→16:58)
[2021-03-27] MEDS: ASCORBIC ACID 500 MG TABLET PO SCH (09:00)
[2021-03-27] MEDS: THIAMINE HCL 100 MG TABLET PO SCH (09:00)
[2021-03-27] MEDS: INSULIN -REGULAR HUMAN 50 UNIT/0.5 ML ML SQ SCH ×4 (09:16→20:41)
[2021-03-27] MEDS: FENTANYL CITR 100 MCG/2 ML IV PRN ×3 (09:33→20:42)
--- NOTE | 2021-03-27 12:47 | P.CNS ---
Date of Consult: 03/27/21 Primary Care Provider: Dr. Alvares Chief Complaint: Covid Pneumonia History of Present Illness: Patient is 55 years of age 71 diagnosed with coronavirus has had progressive dyspnea became worse and it appeared in the emergency room Saturations satisfactory is on 6 L been sick for about 2 weeks and he got antibiotics for coronavirus 7 admitted to [facility] for 5 days. Dyspnea on minimal exertion Allergies No Known Allergies Allergy (Unverified 09/06/17 15:47) Home Medications: Metformin HCl 1,000 mg PO BID 12/18/18 - Past Medical/Surgical History Diabetic: Yes -: DM -: COVID-19 pneumonia -: Dyspnea on exertion -: Multifocal pneumonia -: Pulmonary embolism -: Cholelithiasis -: Abdominal pain -: Neuropathy -: Right knee sx/repair Psychosocial/ Personal History: Currently unemployed. Lives at home by himself - Family History Father Medical History: Diabetes Mother Medical History: Heart disease Sister Medical History: Heart disease - Social History Alcohol use: Yes CD- Drugs: No Caffeine use: Yes Place of Residence: Home Review of Systems General: Weakness Respiratory: Shortness of Breath Physical Examination Temp Pulse Resp BP Pulse Ox 98.1 F 78 18 131/77 96 03/27/21 12:00 03/27/21 12:00 03/27/21 12:00 03/27/21 12:00 03/27/21 12:00 General: Alert, Oriented x3, Cooperative - Problems (1) 2019 novel coronavirus-infected pneumonia (NCIP) Current Visit: Yes Status: Acute Plan: Patient is 55 years of age admitted with coronavirus pneumonia he has some loculations on the right side patchy changes in the lower lobes white count is mildly elevated CT scan reviewed no pulmonary emboli 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 l evofloxacin have underlying bacterial pneumonia titrate sat to 90% 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 prednisone
[2021-03-27] MEDS ORDERED: dexAMETHasone 4 MG/ML VIAL IV ONE (17:00)
[2021-03-27] MEDS ORDERED: clonazePAM 1 MG TAB PO ONE (17:00)
[2021-03-27] MEDS ORDERED: FUROSEMIDE 20 MG/ 2ML VIAL IV ONE (17:00)
--- NOTE | 2021-03-27 17:16 | RAD REPORT ---
EXAM DESCRIPTION: [place] Single View03/27/2021 5:03 pm CLINICAL HISTORY: Shortness of breath COMPARISON: March 26, 2021 FINDINGS: Fluid is loculated within the right major fissure. Mild improvement within the bilateral pulmonary opacities. Heart is mildly enlarged
[2021-03-27] MEDS ORDERED: INSULIN 70/30 100 UNITS/ML SQ ONE (17:56)
[2021-03-27] MEDS ORDERED: HYDRALAZINE HCL 20 MG/ML VIAL IV PRN (20:38)
[2021-03-27] MEDS: dexAMETHasone 4 MG TAB PO SCH (20:40)
[2021-03-27] MEDS: clonazePAM 0.5 MG TAB PO SCH (20:40)
[2021-03-27] MEDS: DULERA 200/5 (MOMETASONE/FORMOTEROL) INHALER IH SCH (22:06)
[2021-03-28 04:41] LABS: Absolute Lymphocytes (CBC) 0.7 K/uL (0.7-4.9); Basophils % 0.1 % (0-1.3); Hematocrit 37.3 % (39.6-49.0); RBC Red Blood Cell Count 4.12 M/uL (4.33-5.43)
[2021-03-28 05:09] LABS: ALT/SGPT 51 U/L (12-78); AST/SGOT 12 U/L (15-37); Albumin 2.2 g/dL (3.4-5.0); Alkaline Phosphatase 78 U/L (45-117); BUN Blood Urea Nitrogen 22 mg/dL (7-18); Bicarbonate 28 mmol/L (21-32); Bilirubin Total 0.3 mg/dL (0.2-1.0); Ferritin 1631.8 ng/mL (26-388); Glucose Level 239 mg/dL (74-106); Magnesium 1.8 mg/dL (1.8-2.4); Potassium 4.2 mmol/L (3.5-5.1); Protein, Total 6.7 g/dL (6.4-8.2); Sodium Level 135 mmol/L (136-145)
[2021-03-28] MEDS ORDERED: MAGNESIUM SULFATE 1 gm IVPB 1 GM/100 ML BAG IV ONE (08:00)
[2021-03-28] MEDS: FAMOTIDINE 20 MG/2 ML VIAL IV SCH ×2 (09:06→20:09)
[2021-03-28] MEDS: VITAMIN D 1000 UNIT TAB PO SCH (09:07)
[2021-03-28] MEDS: levoFLOXacin 750 MG TAB PO SCH (09:07)
[2021-03-28] MEDS: GLIMEPIRIDE 2 MG TABLET PO SCH ×2 (09:07→16:47)
[2021-03-28] MEDS: ASCORBIC ACID 500 MG TABLET PO SCH (09:07)
[2021-03-28] MEDS: dexAMETHasone 4 MG TAB PO SCH ×2 (09:07→20:09)
[2021-03-28] MEDS: ZINC SULFATE 220 MG CAP PO SCH (09:07)
[2021-03-28] MEDS: APIXABAN 5 MG TABLET PO SCH ×2 (09:07→20:08)
[2021-03-28] MEDS: GABAPENTIN 300 MG CAP PO SCH ×3 (09:07→20:08)
[2021-03-28] MEDS: clonazePAM 0.5 MG TAB PO SCH ×3 (09:08→20:08)
[2021-03-28] MEDS: THIAMINE HCL 100 MG TABLET PO SCH (09:08)
[2021-03-28] MEDS: INSULIN -REGULAR HUMAN 50 UNIT/0.5 ML ML SQ SCH ×4 (09:08→20:09)
[2021-03-28] MEDS: DULERA 200/5 (MOMETASONE/FORMOTEROL) INHALER IH SCH ×2 (10:59→20:09)
[2021-03-29 05:04] LABS: Absolute Lymphocytes (CBC) 0.5 K/uL (0.7-4.9); Basophils % 0.1 % (0-1.3); Hematocrit 35.3 % (39.6-49.0); Lymphocytes % 4.7 % (15.3-44.8); MPV 8.9 fL (7.6-11.3); RBC Red Blood Cell Count 3.94 M/uL (4.33-5.43)
[2021-03-29 06:00] LABS: ALT/SGPT 61 U/L (12-78); AST/SGOT 20 U/L (15-37); Alkaline Phosphatase 83 U/L (45-117); BUN Blood Urea Nitrogen 17 mg/dL (7-18); Bicarbonate 26 mmol/L (21-32); Bilirubin Total 0.4 mg/dL (0.2-1.0); Glucose Level 279 mg/dL (74-106); Magnesium 1.7 mg/dL (1.8-2.4); Potassium 4.3 mmol/L (3.5-5.1); Protein, Total 6.2 g/dL (6.4-8.2); Sodium Level 135 mmol/L (136-145)
[2021-03-29] MEDS: VITAMIN D 1000 UNIT TAB PO SCH (08:02)
[2021-03-29] MEDS: ASCORBIC ACID 500 MG TABLET PO SCH (08:02)
[2021-03-29] MEDS: GLIMEPIRIDE 2 MG TABLET PO SCH ×2 (08:03→16:49)
[2021-03-29] MEDS: dexAMETHasone 4 MG TAB PO SCH ×2 (08:03→20:20)
[2021-03-29] MEDS: THIAMINE HCL 100 MG TABLET PO SCH (08:03)
[2021-03-29] MEDS: levoFLOXacin 750 MG TAB PO SCH (08:03)
[2021-03-29] MEDS: GABAPENTIN 300 MG CAP PO SCH ×3 (08:03→20:20)
[2021-03-29] MEDS: ZINC SULFATE 220 MG CAP PO SCH (08:03)
[2021-03-29] MEDS: APIXABAN 5 MG TABLET PO SCH ×2 (08:04→20:20)
[2021-03-29] MEDS: clonazePAM 0.5 MG TAB PO SCH ×3 (08:04→20:20)
[2021-03-29] MEDS: INSULIN -REGULAR HUMAN 50 UNIT/0.5 ML ML SQ SCH ×4 (08:04→20:21)
[2021-03-29] MEDS: FAMOTIDINE 20 MG/2 ML VIAL IV SCH ×2 (08:04→20:20)
[2021-03-29] MEDS: DULERA 200/5 (MOMETASONE/FORMOTEROL) INHALER IH SCH ×2 (08:05→21:00)
[2021-03-29] MEDS ORDERED: MAGNESIUM SULFATE 1 gm IVPB 1 GM/100 ML BAG IV ONE (09:00)
--- NOTE | 2021-03-29 10:41 | P.PN ---
Subjective Date of Service: 03/29/21 Primary Care Provider: Dr. Alvares Chief Complaint: Covid Pneumonia Subjective: Improving (Patient is doing well no new complaints) Review of Systems Respiratory: Shortness of Breath Physical Examination - Vital Signs Temperature: 97.9 F Blood Pressure: 132/76 Pulse: 75 Respirations: 16 Pulse Ox (%): 96 - Physical Exam General: Alert, In no apparent distress, Oriented x3 Assessment & Plan - Problems (Diagnosis) (1) 2019 novel coronavirus-infected pneumonia (NCIP) Current Visit: Yes Status: Acute Plan: Patient is doing much better oxygenation satisfactory labs chemistries all reviewed evaluate for discharge
--- NOTE | 2021-03-29 20:53 | P.PN ---
Subjective Date of Service: 03/27/21 Patient's chart was reviewed. Patient was at [facility] for 2-3 weeks. Patient was treated for COVID-19 pneumonia and pulmonary embolism. Patient was on BiPAP and then placed on high-flow oxygen. Patient recovered and was sent home with prescriptions for steroids, cough medication, inhaler therapy, and anticoagulation-Eliquis 5mg po BID. However, patient did not get his prescriptions filled when he got home. I spoke to the daughter and he still has not got the prescription filled. Patient became more short of breath at home. Patient came to our emergency room for further evaluation. Patient was hypoxic. Patient will be admitted for further treatment plan. Review of Systems 10-point ROS is otherwise unremarkable Physical Examination - Vital Signs Temperature: 97.9 F Blood Pressure: 123/77 Pulse: 81 Respirations: 18 Pulse Ox (%): 95 - Physical Exam General: Alert, In no apparent distress, Oriented x3 Respiratory: Diminished, Crackles/rales Cardiovascular: Regular rate/rhythm, Normal S1 S2, No murmurs Gastrointestinal: Normal bowel sounds, Soft and benign, Non-distended, No tenderness Musculoskeletal: No tenderness Integumentary: No rashes Neurological: Normal speech, Normal tone, Normal affect Lymphatics: No axilla or inguinal lymphadenopathy - Studies Medications List Reviewed: Yes Assessment & Plan - Problems (Diagnosis) (1) 2019 novel coronavirus-infected pneumonia (NCIP) Current Visit: Yes Status: Acute (2) Pulmonary embolism Current Visit: Yes Status: Acute Qualifiers: Pulmonary embolism type: other Chronicity: chronic Acute cor pulmonale presence: without acute cor pulmonale Qualified Code(s): I27.82 - Chronic pulmonary embolism (3) Hypoxemia Current Visit: Yes Status: Acute (4) Anxiety disorder Current Visit: Yes Status: Acute - Plan 1. Continue with IV steroids 2. Monitor inflammatory markers 3. Repeat chest x-ray 4. O2 per protocol 5. Pulmonary consultation 6. Continue Dulero 7. Continue anti coagulation 8. GI and DVT prophylaxis Discharge Plan: Home Plan to discharge in: Greater than 2 days - Advance Directives Does patient have a Living Will: No Does patient have a Durable POA for Healthcare: No - Code Status/Comfort Care Code Status: Full Code Critical Care: No Time Spent Managing PTS Care (In Minutes): 35
--- NOTE | 2021-03-29 21:00 | P.PN ---
Date of Service: 03/28/21 Subjective Patient oxygenation has improved. Patient still hypoxic. Review of Systems 10-point ROS is otherwise unremarkable Physical Examination - Vital Signs Reviewed - Physical Exam General: Alert, In no apparent distress, Oriented x3 Respiratory: Diminished, Crackles/rales Cardiovascular: Regular rate/rhythm, Normal S1 S2, No murmurs Gastrointestinal: Normal bowel sounds, Soft and benign, Non-distended, No tenderness Neurological: Normal speech, Normal tone, Normal affect Assessment & Plan - Problems (Diagnosis) (1) 2019 novel coronavirus-infected pneumonia (NCIP) Current Visit: Yes Status: Acute (2) Pulmonary embolism Current Visit: Yes Status: Acute Qualifiers: Pulmonary embolism type: other Chronicity: chronic Acute cor pulmonale presence: without acute cor pulmonale Qualified Code(s): I27.82 - Chronic pulmonary embolism (3) Hypoxemia Current Visit: Yes Status: Acute (4) Anxiety disorder Current Visit: Yes Status: Acute - Plan Continue with plan of care as mentioned below: 1. Continue with oral steroids 2. Monitor inflammatory markers as they're significantly elevated 3. Anxiolytics 4. O2 per protocol 5. Pulmonary consultation appreciated 6. Continue Dulero 7. Continue anti coagulation 8. GI and DVT prophylaxis
--- NOTE | 2021-03-29 21:01 | P.PN ---
Date of Service: 03/29/21 Subjective Patient feeling much better. Patient's daughter has not got medications. They do have a card for the Eliquis. They received an Eliquis card that will take care of 6 refills. Review of Systems 10-point ROS is otherwise unremarkable Physical Examination - Vital Signs Reviewed - Physical Exam General: Alert, In no apparent distress, Oriented x3 Respiratory: Diminished, Crackles/rales Cardiovascular: Regular rate/rhythm, Normal S1 S2, No murmurs Gastrointestinal: Normal bowel sounds, Soft and benign, Non-distended, No tenderness Neurological: Normal speech, Normal tone, Normal affect Assessment & Plan - Problems (Diagnosis) (1) 2019 novel coronavirus-infected pneumonia (NCIP) Current Visit: Yes Status: Acute (2) Pulmonary embolism Current Visit: Yes Status: Acute Qualifiers: Pulmonary embolism type: other Chronicity: chronic Acute cor pulmonale presence: without acute cor pulmonale Qualified Code(s): I27.82 - Chronic pulmonary embolism (3) Hypoxemia Current Visit: Yes Status: Acute (4) Anxiety disorder Current Visit: Yes Status: Acute - Plan Continue with plan of care as mentioned below: 1. Continue with oral steroids 2. Monitor inflammatory markers as they're significantly elevated 3. Anxiolytics 4. O2 per protocol 5. Pulmonary consultation appreciated 6. Continue Dulero 7. Continue anti coagulation 8. GI and DVT prophylaxis
--- NOTE | 2021-03-30 07:48 | ECHO ---
HEIGHT: 5 ft 9 in WEIGHT: 239 lb 13.807 oz DATE OF STUDY: 03/27/[address]: Tao Tabor MD 2-DIMENSIONAL: YES M.MODE: YES DOPPLER: YES COLOR FLOW: YES TDS: NO PORTABLE: NO DEFINITY: NO BUBBLE STUDY: NO DIAGNOSIS: CONGESTION HEART FAILURE CARDIAC HISTORY: CATHERIZATION: NO SURGERY: NO PROSTHETIC VALVE: NO PACEMAKER: NO MEASUREMENTS (cm) DIASTOLIC (NORMALS) SYSTOLIC (NORMALS) IVSd 1.0 (0.6-1.2) LA Diam 3.9 (1.9-4.0) LVEF 68% LVIDd 4.1 (3.5-5.7) LVIDs 2.6 (2.0-3.5) %FS 37% LVPWd 1.1 (0.6-1.2) Ao Diam 3.1 (2.0-3.7) 2 DIMENSIONAL ASSESSMENT: RIGHT ATRIUM: NORMAL LEFT ATRIUM: NORMAL RIGHT VENTRICLE: NORMAL LEFT VENTRICLE: NORMAL TRICUSPID VALVE: NORMAL MITRAL VALVE: NORMAL PULMONIC VALVE: NORMAL AORTIC VALVE: NORMAL PERICARDIAL EFFUSION: NONE AORTIC ROOT: NORMAL LEFT VENTRICULAR WALL MOTION: NORMAL DOPPLER/COLOR FLOW: NORMAL COMMENTS: NORMAL LEFT VENTRICULAR EJECTION FRACTION 60-65%. NORMAL WALL MOTION. TECHNOLOGIST: Daniel RAMIREZ
[2021-03-30 08:12] VITALS: BP 143/84; TEMP 97.4
[2021-03-30] MEDS: ASCORBIC ACID 500 MG TABLET PO SCH (08:12)
[2021-03-30] MEDS: THIAMINE HCL 100 MG TABLET PO SCH (08:12)
[2021-03-30] MEDS: dexAMETHasone 4 MG TAB PO SCH (08:12)
[2021-03-30] MEDS: clonazePAM 0.5 MG TAB PO SCH (08:12)
[2021-03-30] MEDS: APIXABAN 5 MG TABLET PO SCH (08:12)
[2021-03-30] MEDS: GLIMEPIRIDE 2 MG TABLET PO SCH (08:12)
[2021-03-30] MEDS: INSULIN -REGULAR HUMAN 50 UNIT/0.5 ML ML SQ SCH (08:12)
[2021-03-30] MEDS: VITAMIN D 1000 UNIT TAB PO SCH (08:12)
[2021-03-30] MEDS: GABAPENTIN 300 MG CAP PO SCH (08:12)
[2021-03-30] MEDS: ZINC SULFATE 220 MG CAP PO SCH (08:12)
[2021-03-30] MEDS: DULERA 200/5 (MOMETASONE/FORMOTEROL) INHALER IH SCH (08:13)
[2021-03-30] MEDS: FAMOTIDINE 20 MG/2 ML VIAL IV SCH (08:28)
[2021-03-30 09:19] VITALS: O2SAT 94
--- NOTE | 2021-03-30 09:32 | P.DS ---
Admission Date: 03/26/21 Discharge Date: 03/30/21 Primary Care Provider: Louis Alvares NP Disposition: ROUTINE DISCHARGE Discharge Condition: GOOD Reason for Admission: Covid Pneumonia Consultations: Pulmonary-Dr. Govea Procedures: COVID: Positive CXR: FINDINGS: Moderate bibasilar pulmonary opacities are present, greater on the right, most compatible with underlying COVID infection. The heart is normal in size. No displaced fractures. CT Chest: COMPARISON: Chest Single View dated 03/26/2021 FINDINGS: No evidence of pulmonary thromboembolism. No acute aortic finding demonstrated. There is extensive bilateral pulmonary opacities present, greater on the right. Small right pleural effusion present. Small amount of the fluid is loculated in the right fissure. No concerning bony finding. IMPRESSION: No evidence of pulmonary thromboembolism. Extensive bilateral pulmonary opacities are present, greater on the right, with small amount of right pleural fluid. Infection/ pneumonia is felt to be most likely. ECHO: MEASUREMENTS (cm) DIASTOLIC (NORMALS) SYSTOLIC (NORMALS) IVSd 1.0 (0.6-1.2) LA Diam 3.9 (1.9-4.0) LVEF 68% LVIDd 4.1 (3.5-5.7) LVIDs 2.6 (2.0-3.5) %FS 37% LVPWd 1.1 (0.6-1.2) Ao Diam 3.1 (2.0-3.7) 2 DIMENSIONAL ASSESSMENT: RIGHT ATRIUM: NORMAL LEFT ATRIUM: NORMAL RIGHT VENTRICLE: NORMAL LEFT VENTRICLE: NORMAL TRICUSPID VALVE: NORMAL MITRAL VALVE: NORMAL PULMONIC VALVE: NORMAL AORTIC VALVE: NORMAL PERICARDIAL EFFUSION: NONE AORTIC ROOT: NORMAL LEFT VENTRICULAR WALL MOTION: NORMAL DOPPLER/COLOR FLOW: NORMAL COMMENTS: NORMAL LEFT VENTRICULAR EJECTION FRACTION 60-65%. NORMAL WALL MOTION. Follow up CXR: COMPARISON: March 26, 2021 FINDINGS: Fluid is loculated within the right major fissure. Mild improvement within the bilateral pulmonary opacities. Heart is mildly enlarged Medical Problem List: Dyspnea secondary to bilateral Covid pneumonia with hypoxia with loculated fluid within the right major fissure Hx of Bilateral subsegmental pulmonary embolism without strain Anxiety disorder Diabetes mellitus type 2 Brief History of Present Illness: 55-year-old male with history of anxiety who was recently diagnosed with Covid pneumonia and hospitalized at [facility]. He was there for 5 days. He was found to have subsegmental bilateral pulmonary embolism. He was discharged with home oxygen. Since his discharge he has been having some increasing shortness of breath. Patient was reevaluated in the emergency room. Patient found to have multi lobar pneumonia consistent of Covid pneumonia. Patient required 5 L of oxygen. Patient admitted for treatment. Hospital Course: Patient presented with dyspnea secondary to bilateral Covid pneumonia with hypoxia with loculated fluid within the right major fissure. Patient was recently hospitalized at [facility]. He was found to have bilateral subsegmental pulmonary embolism without any cardiac strain. The patient was treated there for 5 days and sent home with home oxygen. He returned to our hospital requiring more oxygen. He was found to have loculated fluid. Patient was seen and evaluated by pulmonology. His condition has improved. Patient now down to 3 L per nasal cannula. Patient without significant shortness of breath. At discharge the patient will continue with home oxygen to maintain sats above 93%. Currently on 3 L per nasal cannula. Recommend to monitor his oxygen saturations daily. Pulmonology will help wean him off oxygen. At discharge the patient will continue with prednisone 20 mg 1 pill twice daily for 7 days then 1 pill once daily for 7 days. The patient will also continue with Levaquin 750 mg once daily for 5 days along with Dulera 2 puffs twice daily. The patient will continue with vitamin supplementation including vitamin C 500 mg daily, vitamin D 2000 units daily, thiamine 100 mg daily, and zinc 220 mg daily. Patient will continue with COVID-19 recommendations on isolation for at least 10 days. Patient will continue with handwashing, facemask use, social distancing. Recommend to continue incentive spirometer and proning. Recommend follow-up with PCP within 1 week to follow-up this hospitalization and continue his care. Recommend follow-up with pulmonology within 1 week to follow-up his hospitalization and further help wean him off oxygen. Recommend to recheck chest x-ray in 2 to 4 weeks to monitor resolution of loculated fluid. Patient with anxiety disorder. At discharge patient will continue with his curr ent medications. Patient with diabetes mellitus type 2. At discharge patient will continue with Metformin 1000 mg 1 pill twice daily. Recommend to monitor his blood sugars at least twice daily. Recommend to maintain blood sugar less than 140 fasting and less than 200 after meals. Recommend to recheck hemoglobin A1c every 3 months to monitor his progress. Recommend follow-up with PCP in 1 week to monitor his progress and continue his care for diabetes. As mentioned above patient with history of bilateral subsegmental pulmonary embolism. Repeat echocardiogram shows no cardiac strain. At discharge patient will continue with Eliquis 5 mg 1 pill twice daily. Patient will continue with medication for at least 3 to 6 months. Recommend follow-up with pulmonology to further monitor and adjust medication. Vital Signs/Physical Exam: Temp Pulse Resp BP Pulse Ox 97.4 F 66 20 143/84 H 94 03/30/21 08:00 03/30/21 08:00 03/30/21 08:00 03/30/21 08:00 03/30/21 08:00 General: Alert, In no apparent distress, Oriented x3, Cooperative HEENT: Atraumatic Neck: Supple Respiratory: Clear to auscultation bilaterally, Normal air movement, Other (Currently on 3 L per nasal cannula) Cardiovascular: Normal pulses, Regular rate/rhythm Gastrointestinal: Normal bowel sounds, No ascites Musculoskeletal: No erythema, No tenderness, No warmth Integumentary: No tenderness/swelling Neurological: Normal speech, Normal strength at 5/5 x4 extr, Normal tone Laboratory Data at Discharge: WBC 11.30 K/uL (4.3-10.9) H D 03/29/21 04:36 Hgb 12.0 g/dL (13.6-17.9) L 03/29/21 04:36 Hct 35.3 % (39.6-49.0) L 03/29/21 04:36 Plt Count 231 K/uL (152-406) 03/29/21 04:36 PT 14.5 SECONDS (9.5-12.5) H 03/26/21 10:38 INR 1.26 03/26/21 10:38 Sodium 135 mmol/L (136-145) L 03/29/21 04:36 Potassium 4.3 mmol/L (3.5-5.1) 03/29/21 04:36 BUN 17 mg/dL (7-18) 03/29/21 04:36 Creatinine 0.77 mg/dL (0.55-1.3) 03/29/21 04:36 Glucose 279 mg/dL (74-106) H 03/29/21 04:36 Magnesium 1.7 mg/dL (1.8-2.4) L 03/29/21 04:36 Total Bilirubin 0.4 mg/dL (0.2-1.0) 03/29/21 04:36 AST 20 U/L (15-37) 03/29/21 04:36 ALT 61 U/L (12-78) 03/29/21 04:36 Alkaline Phosphatase 83 U/L (45-117) 03/29/21 04:36 Troponin I < 0.02 ng/mL (0.0-0.045) 03/26/21 20:43 Triglycerides 89 mg/dL (<150) 03/27/21 06:16 Cholesterol 155 mg/dL (<200) 03/27/21 06:16 HDL Cholesterol 43 mg/dL (40-60) 03/27/21 06:16 Cholesterol/HDL Ratio 3.60 03/27/21 06:16 Home Medications: Metformin HCl 1,000 mg PO BID 12/18/18 Apixaban [Eliquis] 5 mg PO BID tablet 03/29/21 Mometasone/Formoterol [Dulera 200 Mcg/5 Mcg Inhaler] 2 puff IH BID #1 inhaler 03/29/21 levoFLOXacin [Levaquin*] 750 mg PO DAILY #5 tab 03/29/21 Ascorbic Acid [Vitamin C*] 500 mg PO DAILY #30 tablet 03/30/21 Cholecalciferol (Vitamin D3) [Vitamin D 1000 Iu Tab*] 2,000 unit PO DAILY #60 tab 03/30/21 Thiamine HCl [Vitamin B-1*] 100 mg PO DAILY #30 tablet 03/30/21 Zinc Sulfate [Zinc Sulfate*] 220 mg PO DAILY #30 cap 03/30/21 predniSONE [Prednisone*] 20 mg PO SEECOM #21 tab 03/30/21 New Medications: Mometasone/Formoterol [Dulera 200 Mcg/5 Mcg Inhaler] 2 puff IH BID #1 inhaler levoFLOXacin [Levaquin*] 750 mg PO DAILY #5 tab predniSONE [Prednisone*] 20 mg PO SEECOM #21 tab Thiamine HCl [Vitamin B-1*] 100 mg PO DAILY #30 tablet Ascorbic Acid [Vitamin C*] 500 mg PO DAILY #30 tablet Cholecalciferol (Vitamin D3) [Vitamin D 1000 Iu Tab*] 2,000 unit PO DAILY #60 tab Zinc Sulfate [Zinc Sulfate*] 220 mg PO DAILY #30 cap Physician Discharge Instructions: Patient presented with dyspnea secondary to bilateral Covid pneumonia with hypoxia with loculated fluid within the right major fissure. Patient was recen tly hospitalized at [facility]. He was found to have bilateral subsegmental pulmonary embolism without any cardiac strain. The patient was treated there for 5 days and sent home with home oxygen. He returned to our hospital requiring more oxygen. He was found to have loculated fluid. Patient was seen and evaluated by pulmonology. His condition has improved. Patient now down to 3 L per nasal cannula. Patient without significant shortness of breath. At discharge the patient will continue with home oxygen to maintain sats above 93%. Currently on 3 L per nasal cannula. Recommend to monitor his oxygen saturations daily. Pulmonology will help wean him off oxygen. At discharge the patient will continue with prednisone 20 mg 1 pill twice daily for 7 days then 1 pill once daily for 7 days. The patient will also continue with Levaquin 750 mg once daily for 5 days along with Dulera 2 puffs twice daily. The patient will continue with vitamin supplementation including vitamin C 500 mg daily, vitamin D 2000 units daily, thiamine 100 mg daily, and zinc 220 mg daily. Patient will continue with COVID-19 recommendations on isolation for at least 10 days. Patient will continue with handwashing, facemask use, social distancing. Recommend to continue incentive spirometer and proning. Recommend follow-up with PCP within 1 week to follow-up this hospitalization and continue his care. Recommend follow-up with pulmonology within 1 week to follow-up his hospitalization and further help wean him off oxygen. Recommend to recheck chest x-ray in 2 to 4 weeks to monitor resolution of loculated fluid. Patient with anxiety disorder. At discharge patient will continue with his current medications. Patient with diabetes mellitus type 2. At discharge patient will continue with Metformin 1000 mg 1 pill twice daily. Recommend to monitor his blood sugars at least twice daily. Recommend to maintain blood sugar less than 140 fasting and less than 200 after meals. Recommend to recheck hemoglobin A1c every 3 months to monitor his progress. Recommend follow-up with PCP in 1 week to monitor his progress and continue his care for diabetes. As mentioned above patient with history of bilateral subsegmental pulmonary embolism. Repeat echocardiogram shows no cardiac strain. At discharge patient will continue with Eliquis 5 mg 1 pill twice daily. Patient will continue with medication for at least 3 to 6 months. Recommend follow-up with pulmonology to further monitor and adjust medication. RETURN TO THE ER IF symptoms worsen CALL or TEXT DR. CASAS AT [phone] IF ANY QUESTIONS REGARDING HOSPITAL STAY. PLEASE CALL THE FLOOR AT [phone] IF ANY MEDICATION OR NURSING QUESTIONS. Diet: AHA Activity: Fall precautions Followup: NONE,NONE [Primary Care Provider] - Time spent managing pt's care (in minutes): 55
[2021-03-30] MEDS: levoFLOXacin 750 MG TAB PO SCH (10:46)
== END 2021-03-30 11:57 | disposition home or self-care (01) | DRG 177 ==
LOC: ER 10:06 → ERHOLD 12:04 → 4TH 16:33
PROVIDERS: ADMIT Hospitalist; ATTEND Hospitalist
DX: U07.1 COVID-19 (principal); J12.82 Pneumonia due to coronavirus disease 2019; J91.8 Pleural effusion in other conditions classified elsewhere; F41.9 Anxiety disorder, unspecified; R09.02 Hypoxemia; E11.40 Type 2 diabetes mellitus with diabetic neuropathy, unspecified; Z86.711 Personal history of pulmonary embolism
CPT/HCPCS: 36415; 71045; 71275; 80048; 80053; 80061; 80076; 81003; 82728; 82947; 83605; 83735; 83880; 84484; 85025; 85379; 85610; 86140; 87040; 93005; 93306; 94760; 96372; 99284; J0360; J0456; J0696; J1100; J1650; J1815; J1940; J2405; J2920; J2930; J3010; J3475; J7030; J7050; J7606; J8540; P9047; Q9967; U0003

== ENCOUNTER 2021-04-07 14:03 | Inpatient (IN) | payer SELFPAY ==
[2021-04-07 16:34] LABS: Absolute Lymphocytes (CBC) 1.1 K/uL (0.7-4.9); Basophils % 0.2 % (0-1.3); Lymphocytes % 9.3 % (15.3-44.8); Protime INR 1.52
[2021-04-07 16:38] LABS: ALT/SGPT 44 U/L (12-78); AST/SGOT 10 U/L (15-37); Albumin 2.4 g/dL (3.4-5.0); Alkaline Phosphatase 101 U/L (45-117); BUN Blood Urea Nitrogen 16 mg/dL (7-18); Bicarbonate 27 mmol/L (21-32); Bilirubin Direct < 0.1 mg/dL (0-0.2); Bilirubin Total 0.3 mg/dL (0.2-1.0); Magnesium 1.7 mg/dL (1.8-2.4); NT PRO-BNP 249 pg/mL (<125); Protein, Total 7.1 g/dL (6.4-8.2); Sodium Level 132 mmol/L (136-145); Troponin (Emerg Dept Use Only) < 0.02 ng/mL (0.0-0.045)
[2021-04-07 16:40] LABS: Glucose Level 537 mg/dL (74-106)
--- NOTE | 2021-04-07 16:50 | RAD REPORT ---
EXAM DESCRIPTION: [facility] Single View04/07/2021 4:05 pm CLINICAL HISTORY: Congestion COMPARISON: March 27, 2021 FINDINGS: Moderate bilateral pulmonary opacities. Heart is mildly enlarged. Small pleural effusions IMPRESSION: Moderate bilateral pulmonary opacities may represent pneumonia
--- NOTE | 2021-04-07 17:05 | EDPHYS ---
Physician Documentation [facility] Name: Boyd Jones Age: 55 yrs Sex: Male : 1965 Arrival Date: 04/07/2021 Time: 14:08 Bed 8 Private MD: ED Physician Tao Du HPI: 04/07 15:54 This 55 yrs old Male presents to ER via Wheelchair with complaints of ma2 Shortness Of Breath - +covid pnuemonia, Back Pain. 15:54 The patient has shortness of breath with light activity. Onset: The symptoms/episode ma2 began/occurred gradually, 2 week(s) ago. Associated signs and symptoms: Pertinent negatives: productive cough, fever, loss of consciousness, numbness in extremities. Severity of symptoms: At their worst the symptoms were moderate in the emergency department the symptoms are unchanged. The patient has experienced similar episodes in the past. has covid on home O2 3 l via nc, here with right sided chest pressure and congestion and worsening of cough . Historical: - Allergies: 14:20 No Known Allergies; vg1 - Home Meds: 14:20 Unable to obtain [Active]; vg1 - PMHx: 14:20 Diabetes - NIDDM; Hypertensive disorder; vg1 - Immunization history:: Adult Immunizations up to date, Client reports having NOT received the Covid vaccine. - Social history:: Smoking status: Patient denies any tobacco usage or history of. Patient/guardian denies using alcohol, street drugs, The patient lives with family. - Family history:: not pertinent. ROS: 15:54 Constitutional: Negative for fever, chills, and weight loss. ma2 15:54 All other systems are negative. Exam: 15:54 Constitutional: This is a well developed, well nourished patient who is awake, alert, ma2 and in no acute distress. Head/Face: Normocephalic, atraumatic. Eyes: Pupils equal round and reactive to light, extra-ocular motions intact. Lids and lashes normal. Conjunctiva and sclera are non-icteric and not injected. Cornea within normal limits. Periorbital areas with no swelling, redness, or edema. ENT: Nares patent. No nasal discharge, no septal abnormalities noted. Tympanic membranes are normal and external auditory canals are clear. Oropharynx with no redness, swelling, or masses, exudates, or evidence of obstruction, uvula midline. Mucous membranes moist. Neck: Trachea midline, no thyromegaly or masses palpated, and no cervical lymphadenopathy. Supple, full range of motion without nuchal rigidity, or vertebral point tenderness. No Meningismus. Chest/axilla: Normal chest wall appearance and motion. Nontender with no deformity. No lesions are appreciated. Cardiovascular: Regular rate and rhythm with a normal S1 and S2. No gallops, murmurs, or rubs. Normal PMI, no JVD. No pulse deficits. Respiratory: on 3l O2 via NC, spo2 is 95%, otherwise Lungs have equal breath sounds bilaterally, clear to auscultation and percussion. No rales, rhonchi or wheezes noted. No increased work of breathing, no retractions or nasal flaring. Abdomen/GI: Soft, non-tender, with normal bowel sounds. No distension or tympany. No guarding or rebound. No evidence of tenderness throughout. Skin: Warm, dry with normal turgor. Normal color with no rashes, no lesions, and no evidence of cellulitis. MS/ Extremity: Pulses equal, no cyanosis. Neurovascular intact. Full, normal range of motion. Neuro: Awake and alert, GCS 15, oriented to person, place, time, and situation. Cranial nerves II-XII grossly intact. Motor strength 5/5 in all extremities. Sensory grossly intact. Cerebellar exam normal. Normal gait. Vital Signs: 14:16 BP 122 / 83; Pulse 95; Resp 24; Temp 98.5; Pulse Ox 95% on 3 lpm NC; Weight 98.88 kg; vg1 Height 5 ft. 9 in. (175.26 cm); Pain 7/10; 16:47 BP 117 / 64; Pulse 86; Pulse Ox 96% on 3 lpm NC; ap3 17:30 BP 133 / 87; Pulse 80; Pulse Ox 94% on 3 lpm NC; ap3 18:30 BP 110 / 77; Pulse 79; Pulse Ox 96% on 3 lpm NC; ap3 19:39 BP 125 / 83; Pulse 78; Resp 20; Pulse Ox 95% on 3 lpm NC; Pain 3/10; ms4 14:16 Body Mass Index 32.19 (98.88 kg, 175.26 cm) vg1 MDM: 15:29 Patient medically screened. ma2 15:54 Differential diagnosis: Anemia Anxiety Reaction Bronchitis pneumonia, Psychogenic ma2 reactive airway disease. 17:03 Data reviewed: vital signs, nurses notes. Counseling: I had a detailed discussion with ma2 the patient and/or guardian regarding: the historical points, exam findings, and any diagnostic results supporting the discharge/admit diagnosis, the presence of at least one elevated blood pressure reading (>120/80) during this emergency department visit, the need for outpatient follow up. ED course: will admit with chest pain for acs rule out . 04/07 15:43 Order name: Basic Metabolic Panel [facility] 04/07 15:43 Order name: CBC with Diff [facility] 04/07 15:43 Order name: LFT's; Complete Time: 16:41 dc2 04/07 15:43 Order name: Magnesium; Complete Time: 16:41 dc2 04/07 15:43 Order name: NT PRO-BNP; Complete Time: 16:41 dc2 04/07 15:43 Order name: PT-INR; Complete Time: 16:39 dc2 04/07 15:43 Order name: Troponin (emerg Dept Use Only); Complete Time: 16:41 ma2 04/07 15:43 Order name: XRAY Chest (1 view); Complete Time: 16:56 dc2 04/07 15:43 Order name: Basic Metabolic Panel; Complete Time: 16:41 EDMS 04/07 15:43 Order name: CBC with Automated Diff; Complete Time: 16:41 EDFL 04/07 17:59 Order name: COVID-19 (Coronavirus) Document "Date of Onset" if Symptomatic bd 04/07 19:50 Order name: Glucose, Ancillary Testing EDFL 04/07 15:43 Order name: EKG; Complete Time: 15:43 ma2 04/07 15:43 Order name: Cardiac monitoring; Complete Time: 16:08 dc2 04/07 15:43 Order name: EKG - Nurse/Tech; Complete Time: 16:24 ma2 04/07 15:43 Order name: IV Saline Lock; Complete Time: 15:59 ma2 04/07 15:43 Order name: Labs collected and sent; Complete Time: 15:59 ma2 04/07 15:43 Order name: O2 Per Protocol; Complete Time: 15:44 ma2 04/07 15:43 Order name: O2 Sat Monitoring; Complete Time: 15:44 ma2 Administered Medications: 16:58 Drug: NS 0.9% 500 ml Route: IV; Rate: 1 bolus; Site: right forearm; ap3 18:52 Follow up: IV Status: Completed infusion; IV Intake: 1000ml ap3 17:00 Drug: Insulin Regular Human 5 units {Co-Signature: ap3 (Dayan Arevalo RN).} Route: ld1 IVP; Site: right wrist; 18:34 Follow up: Response: No adverse reaction ap3 18:48 Drug: AZITHromycin 500 mg Route: IVPB; Infused Over: 1 hrs; Site: right wrist; ap3 Disposition Summary: 04/07/21 17:04 Hospitalization Ordered Hospitalization Status: Observation ma2 Provider: Cesario Magallanes ma2 Location: Telemetry/MedSurg (observation) ma2 Condition: Stable ma2 Problem: new ma2 Symptoms: are unchanged ma2 Bed/Room Type: Standard [facility] Room Assignment: [id number](04/07/21 18:46) bd Diagnosis - Chest pain, unspecified ma2 - Other viral pneumonia - COVID ma2 Discharge Instructions: - Discharge Summary Sheet ma2 Forms: - Medication Reconciliation Form ma2 - SBAR form ma2 Prescriptions: - Zithromax Z-Colton 250 mg Oral Tablet - take 1 tablet by ORAL route as directed for 5 days Day 1 - take two (2) tablets ma2 one time. Day 2, 3, 4 , 5 take one (1) tablet once daily.; 6 tablet; Refills: 0, Product Selection Permitted Signatures: Dispatcher [employer] EDDomenica Quintanilla Mohammad, MD MD ma2 Dayan Arevalo RN RN ap3 Edith Lakhani RN RN vg1 Radha Alcantara RN RN ld1 Dayan Arevalo RN ap3 Corrections: (The following items were deleted from the chart) 18:46 17:04 ma2 bd
--- NOTE | 2021-04-07 17:05 | ER ---
Nurse's Notes [facility] Name: Boyd Jones Age: 55 yrs Sex: Male : 1965 Arrival Date: 04/07/2021 Time: 14:08 Bed 8 Private MD: Diagnosis: Chest pain, unspecified;Other viral pneumonia-COVID Presentation: 04/07 14:16 Chief complaint: Patient states: Pt was d/c from hospital about a week ago. States vg1 Right side ABD pain, back pain and chest pain. States when coughing becomes shortness of breath and when taking a deep breath gets a sharp pain in back. Denies NVD. Coronavirus screen: Vaccine status: Patient reports being unvaccinated. Client denies travel out of the [place] in the last 14 days. Client presents with at least one sign or symptom that may indicate coronavirus-19. Standard/surgical mask placed on the client. Ebola Screen: Patient negative for fever greater than or equal to 101.5 degrees Fahrenheit, and additional compatible Ebola Virus Disease symptoms. Initial Sepsis Screen: Does the patient meet any 2 criteria? No. Patient's initial sepsis screen is negative. Does the patient have a suspected source of infection? No. Patient's initial sepsis screen is negative. Risk Assessment: Do you want to hurt yourself or someone else? Patient reports no desire to harm self or others. Onset of symptoms was April 07, 2021. 14:16 Method Of Arrival: Wheelchair vg1 14:16 Acuity: LARISSA 3 vg1 Triage Assessment: 14:20 General: Appears in no apparent distress. uncomfortable, Behavior is calm, cooperative. vg1 Pain: Complains of pain in posterior aspect of left lateral abdomen, right upper quadrant and right lower quadrant, upper right chest. Respiratory: Reports shortness of breath at rest on exertion cough that is productive, Onset: The symptoms/episode began/occurred yesterday, the patient has moderate shortness of breath. Historical: - Allergies: 14:20 No Known Allergies; vg1 - Home Meds: 14:20 Unable to obtain [Active]; vg1 - PMHx: 14:20 Diabetes - NIDDM; Hypertensive disorder; vg1 - Immunization history:: Adult Immunizations up to date, Client reports having NOT received the Covid vaccine. - Social history:: Smoking status: Patient denies any tobacco usage or history of. Patient/guardian denies using alcohol, street drugs, The patient lives with family. - Family history:: not pertinent. Screenin:00 Abuse screen: Denies threats or abuse. Nutritional screening: No deficits noted. ap3 Tuberculosis screening: No symptoms or risk factors identified. Fall Risk None identified. Assessment: 15:59 General: Appears in no apparent distress. comfortable, Behavior is calm, cooperative, ap3 appropriate for age. Pain: Complains of pain in chest Aggravated by coughing. Neuro: Level of Consciousness is awake, alert, obeys commands, Oriented to person, place, time, situation, Appropriate for age Moves all extremities. Gait is steady, Speech is normal. Cardiovascular: Capillary refill < 3 seconds Patient's skin is warm and dry. Cardiovascular: Rhythm is regular. Respiratory: Airway is patent Respiratory effort is even, unlabored, Breath sounds are clear bilaterally. Respiratory: Reports cough that is productive. EENT: Reports nasal congestion. 17:24 Reassessment: Patient and/or family updated on plan of care and expected duration. Pain ap3 level reassessed. Patient is alert, oriented x 3, equal unlabored respirations, skin warm/dry/pink. 19:38 Reassessment: report given to 4th floor. repeat cbg 247. patient to be transported to ne4 407. Vital Signs: 14:16 BP 122 / 83; Pulse 95; Resp 24; Temp 98.5; Pulse Ox 95% on 3 lpm NC; Weight 98.88 kg; vg1 Height 5 ft. 9 in. (175.26 cm); Pain 7/10; 16:47 BP 117 / 64; Pulse 86; Pulse Ox 96% on 3 lpm NC; ap3 17:30 BP 133 / 87; Pulse 80; Pulse Ox 94% on 3 lpm NC; ap3 18:30 BP 110 / 77; Pulse 79; Pulse Ox 96% on 3 lpm NC; ap3 19:39 BP 125 / 83; Pulse 78; Resp 20; Pulse Ox 95% on 3 lpm NC; Pain 3/10; ms4 14:16 Body Mass Index 32.19 (98.88 kg, 175.26 cm) vg1 ED Course: 14:08 Patient arrived in ED. as 14:20 Triage completed. vg1 14:20 Arm band placed on. vg1 15:23 Patient placed in an exam room, on a stretcher. ll1 15:29 Tao Du MD is Attending Physician. ma2 15:30 Dayan Arevalo, RN is Primary Nurse. ap3 15:59 Inserted saline lock: 20 gauge in right wrist, using aseptic technique. Blood collected.ap3 16:00 Patient has correct armband on for positive identification. monitoring analyst on. Pulse ap3 ox on. NIBP on. Door closed. Noise minimized. 16:05 XRAY Chest (1 view) In Process Unspecified. EDMS 17:04 Cesario Magallanes is Hospitalizing Provider. ma2 18:51 COVID swab sent to lab. ap3 19:19 Primary Nurse role handed off by Dayan Arevalo, JUVENCIO tt3 Administered Medications: 16:58 Drug: NS 0.9% 500 ml Route: IV; Rate: 1 bolus; Site: right forearm; ap3 18:52 Follow up: IV Status: Completed infusion; IV Intake: 1000ml ap3 17:00 Drug: Insulin Regular Human 5 units {Co-Signature: ap3 (Dayan Arevalo RN).} Route: ld1 IVP; Site: right wrist; 18:34 Follow up: Response: No adverse reaction ap3 18:48 Drug: AZITHromycin 500 mg Route: IVPB; Infused Over: 1 hrs; Site: right wrist; ap3 Intake: 18:52 IV: 1000ml; Total: 1000ml. ap3 Outcome: 17:04 Decision to Hospitalize by Provider. ma2 20:00 Patient left the ED. ms4 Signatures: Dispatcher [employer] EDCT Kajal Ghosh as Tao Du MD MD ma2 Dayan Arevalo, RN RN ap3 Edith Lakhani RN RN vg1 Nano Goncalves RN RN priscilla1 Diego Wood tt3 Radha Alcantara RN RN ld1 Iliana Mcnulty RN RN ms4 Dayan Arevalo RN ap3 Corrections: (The following items were deleted from the chart) 14:22 14:16 BP 122 / 83; Pulse 95bpm; Resp 20bpm; Pulse Ox 95% 3 lpm Nasal Cannula; Temp vg1 98.5F; 98.88 kg; Height 5 ft. 9 in.; BMI: 32.1; Pain 7/10; vg1
[2021-04-07] MEDS ORDERED: INSULIN -REGULAR HUMAN 50 UNIT/0.5 ML ML ONE (17:16)
[2021-04-07] MEDS ORDERED: NA CHLORIDE 0.9% 1,000 ML ONE (17:16)
--- NOTE | 2021-04-07 18:32 | P.HP ---
Certification for Inpatient Patient admitted to: Observation With expected LOS: <2 Midnights Practitioner: I am a practitioner with admitting privileges, knowledge of patient current condition, hospital course, and medical plan of care. Services: Services provided to patient in accordance with Admission requirements found in Title 42 Section 412.3 of the Code of Federal Regulations Patient History Date of Service: 04/07/21 Reason for admission: Chest pain History of Present Illness: 55-year-old gentleman with a history of pulmonary embolism, if recently hospitalized on 03/26, treated for COVID pneumonia and discharged on 03/30 presented to the emergency department with a complaint of chest pain. Patient reports for frequent nonproductive cough with chest pain as a result of the cough. He also complains of chest pain worse with deep breathing. Initial troponin negative. EKG shows right bundle branch block with no ischemic changes. Chest x-ray demonstrated moderate bilateral pulmonary infiltrates. Patient hospitalized for further management. Allergies No Known Allergies Allergy (Unverified 09/06/17 15:47) Home Medications: Metformin HCl 1,000 mg PO BID 12/18/18 Apixaban [Eliquis] 5 mg PO BID tablet 03/29/21 Mometasone/Formoterol [Dulera 200 Mcg/5 Mcg Inhaler] 2 puff IH BID #1 inhaler 03/29/21 levoFLOXacin [Levaquin*] 750 mg PO DAILY #5 tab 03/29/21 Ascorbic Acid [Vitamin C*] 500 mg PO DAILY #30 tablet 03/30/21 Cholecalciferol (Vitamin D3) [Vitamin D 1000 Iu Tab*] 2,000 unit PO DAILY #60 ta b 03/30/21 Thiamine HCl [Vitamin B-1*] 100 mg PO DAILY #30 tablet 03/30/21 Zinc Sulfate [Zinc Sulfate*] 220 mg PO DAILY #30 cap 03/30/21 predniSONE [Prednisone*] 20 mg PO SEECOM #21 tab 03/30/21 - Past Medical/Surgical History Diabetic: Yes -: DM -: COVID-19 pneumonia -: Dyspnea on exertion -: Multifocal pneumonia -: Pulmonary embolism -: Cholelithiasis -: Abdominal pain -: Neuropathy -: Right knee sx/repair Psychosocial/ Personal History: Currently unemployed. Lives at home by himself - Family History Father -: Diabetes Mother -: Heart disease Sister -: Heart disease - Social History Alcohol use: Yes CD- Drugs: No Caffeine use: Yes Review of Systems Other: Except as documented, all other systems reviewed and negative. Physical Examination - Physical Exam General: Alert, Oriented x3, Mild distress HEENT: Atraumatic, Mucous membr. moist/pink Neck: Supple, JVD not distended Respiratory: Normal air movement, Other (Bilateral crackles) Cardiovascular: No edema, Regular rate/rhythm, Normal S1 S2 Gastrointestinal: Normal bowel sounds, Soft and benign, Non-distended, No tenderness Musculoskeletal: No swelling, No tenderness Integumentary: No rashes, No erythema Neurological: Normal speech, Normal strength at 5/5 x4 extr Lymphatics: No axilla or inguinal lymphadenopathy - Studies Laboratory Data (last 24 hrs) 04/07/21 15:57: PT 17.6 H, INR 1.52 04/07/21 15:57: WBC 11.60 H, Hgb 12.4 L, Hct 38.0 L, Plt Count 236 04/07/21 15:57: Sodium 132 L, Potassium 4.0, BUN 16, Creatinine 1.00, Glucose 537 H*, Magnesium 1.7 L, Total Bilirubin 0.3, AST 10 L, ALT 44, Alkaline Phosphatase 101 Assessment and Plan - Problems (Diagnosis) (1) Chest pain Current Visit: Yes Status: Acute (2) Pleurisy Current Visit: Yes Status: Acute (3) History of pulmonary embolus (PE) Current Visit: Yes Status: Acute (4) Diabetes Current Visit: No Status: Acute - Plan Place under observation. Trend troponin. Chest pain likely noncardiac pain and secondary to cough and pleurisy. Supportive measures with antitissives. IV morphine p.r.n. for pain. Morphine may also help with the coughing. Restart IV steroid. Insulin sliding scale for glucose management. Oxygen p.r.n. - Advance Directives Does patient have a Living Will: No Does patient have a Durable POA for Healthcare: No
[2021-04-07] MEDS ORDERED: AZITHROMYCIN 500 MG INJ IVPB ONE (19:07)
[2021-04-07] MEDS ORDERED: NA CHLORIDE 0.9% 250 ML ONE (19:07)
[2021-04-07] MEDS ORDERED: GLUCAGON 1 MG/VIAL IM PRN (20:06)
[2021-04-07] MEDS ORDERED: D50W 25 GM/50 ML SYRINGE IV PRN (20:06)
[2021-04-07] MEDS ORDERED: ACETAMINOPHEN 500 MG TAB PO PRN (20:06)
[2021-04-07] MEDS: INSULIN -REGULAR HUMAN 50 UNIT/0.5 ML ML SQ SCH (21:00)
--- NOTE | 2021-04-07 21:07 | RAD REPORT ---
EXAM DESCRIPTION: CT - Chest For Pe Angio - 04/07/2021 8:47 pm CLINICAL HISTORY: Chest pain COMPARISON: March 26, 2021 TECHNIQUE: Dynamically enhanced axial 3 mm thick images of the chest were obtained during administra tion of <100> mL Isovue 370 IV contrast. Coronal and oblique reconstruction images were generated and reviewed. Exam utilizes a protocol for optimal evaluation of pulmonary arterial tree. Maximum intensity projections 3D imaging was utilized All CT scans are performed using dose optimization technique as appropriate and may include automated exposure control or mA/KV adjustment according to patient size. FINDINGS: A pulmonary embolus is not seen. A thoracic aortic aneurysm is not noted. A pericardial effusion is not seen. A 5 centimeter cavitary lesion the right lower lobe. A small to moderate right pleural effusion which contains air. Mild right middle lobe, right upper lobe and left lung opacities Esophagus is distended IMPRESSION: Negative for a pulmonary embolism. 5 centimeter cavitary lesion right lower lobe likely an abscess. Small to moderate right pleural effusion which contains air and an enhancing wall probably either an empyema or bronchopulmonary fistula Mild additional bilateral pulmonary opacities probably pneumonia
[2021-04-07 21:28] LABS: HDL Cholesterol 38 mg/dL (40-60); LDL Cholesterol, Calculated 105 (<130); Troponin I < 0.02 ng/mL (0.0-0.045)
[2021-04-07 21:36] VITALS: BMI 4402.5
[2021-04-07] MEDS: METHYLPREDNISOLONE 40 MG INJ IV SCH (22:29)
[2021-04-07] MEDS: APIXABAN 2.5 MG TABLET PO SCH (22:29)
[2021-04-07] MEDS: BENZONATATE 100 MG CAP PO PRN (22:44)
[2021-04-08 04:25] LABS: Absolute Lymphocytes (CBC) 0.3 K/uL (0.7-4.9); Basophils % 0.2 % (0-1.3); Hematocrit 35.7 % (39.6-49.0); Lymphocytes % 3.4 % (15.3-44.8); MPV 8.6 fL (7.6-11.3); RBC Red Blood Cell Count 3.96 M/uL (4.33-5.43)
[2021-04-08 04:46] LABS: BUN Blood Urea Nitrogen 16 mg/dL (7-18); Bicarbonate 27 mmol/L (21-32); Ferritin 1012.4 ng/mL (26-388); Potassium 4.6 mmol/L (3.5-5.1); Sodium Level 133 mmol/L (136-145)
[2021-04-08 05:20] LABS: Glucose Level 476 mg/dL (74-106)
[2021-04-08] MEDS ORDERED: INSULIN GLARGINE 100 UNITS/ML SQ ONE (06:10)
[2021-04-08 06:40] LABS: Blood Morphology Comment NOT SEEN (NOT SEEN); Platelet Estimate ADEQ
[2021-04-08] MEDS: ASPIRIN EC 81 MG TAB PO SCH (07:20)
[2021-04-08] MEDS: APIXABAN 2.5 MG TABLET PO SCH ×2 (07:20→20:27)
[2021-04-08] MEDS: METHYLPREDNISOLONE 40 MG INJ IV SCH ×2 (07:20→20:27)
[2021-04-08] MEDS: INSULIN -REGULAR HUMAN 50 UNIT/0.5 ML ML SQ SCH ×4 (08:28→20:27)
[2021-04-08] MEDS ORDERED: Levofloxacin 750mg IV 750 MG/150 ML BAG IV SCH (12:00)
--- NOTE | 2021-04-08 16:04 | P.PN ---
Subjective Date of Service: 04/08/21 Chief Complaint: Chest pain Patient reports persistent cough. Also reports shortness of breath. He is stable on 3 L oxygen by nasal canula. Physical Examination - Vital Signs Temperature: 97.8 F Blood Pressure: 133/71 Pulse: 75 Respirations: 18 Pulse Ox (%): 96 - Physical Exam General: Alert, In no apparent distress, Oriented x3 HEENT: Mucous membr. moist/pink Neck: JVD not distended Respiratory: Normal air movement, Crackles/rales (Bilateral) Cardiovascular: Regular rate/rhythm, Normal S1 S2 Gastrointestinal: Normal bowel sounds, Soft and benign, Non-distended, No ascites, No tenderness Musculoskeletal: No swelling, No tenderness Integumentary: No rashes, No erythema Neurological: Normal speech, Normal strength at 5/5 x4 extr Lymphatics: No axilla or inguinal lymphadenopathy - Studies Laboratory Data (last 24 hrs) 04/08/21 03:51: Sodium 133 L, Potassium 4.6, BUN 16, Creatinine 0.73, Glucose 476 H* 04/08/21 03:51: WBC 10.20, Hgb 12.4 L, Hct 35.7 L, Plt Count 209 04/08/21 00:41: Troponin I < 0.02 04/07/21 20:33: Troponin I < 0.02, Triglycerides 109, Cholesterol 165, HDL Cholesterol 38 L, Cholesterol/HDL Ratio 4.34 04/07/21 15:57: PT 17.6 H, INR 1.52 04/07/21 15:57: WBC 11.60 H, Hgb 12.4 L, Hct 38.0 L, Plt Count 236 04/07/21 15:57: Sodium 132 L, Potassium 4.0, BUN 16, Creatinine 1.00, Glucose 537 H*, Magnesium 1.7 L, Total Bilirubin 0.3, AST 10 L, ALT 44, Alkaline Phosphatase 101 Assessment And Plan - Current Problems (Diagnosis) (1) Chest pain Current Visit: Yes Status: Acute (2) Pleurisy Current Visit: Yes Status: Acute (3) History of pulmonary embolus (PE) Current Visit: Yes Status: Acute (4) Diabetes Current Visit: No Status: Acute (5) Lung abscess Current Visit: Yes Status: Acute - Plan Pneumonia due to COVID 19/secondary bacterial pneumonia/lung abscess/acute respiratory failure with hypoxia: * Patient completed oral Levaquin at home. * Patient started on IV Levaquin and Zosyn. * Follow blood cultures * Obtain sputum culture * Consult to pulmonary * Titrate oxygen * Chest physiotherapy * Supportive measures with antitussives * Pain management as needed. * Continue IV steroid Chest pain * Noncardiac secondary to pleurisy. * Troponin trended negative * IV morphine p.r.n. for pain. DM type 2 with hyperglycemia * Patient with severe hyperglycemia. * Steroid contributing to the hyperglycemia. * Blood sugar management with Lantus insulin and insulin sliding scale
[2021-04-08] MEDS ORDERED: D50W 25 GM/50 ML SYRINGE IV PRN (16:09)
[2021-04-08] MEDS ORDERED: GLUCAGON 1 MG/VIAL IM PRN (16:09)
[2021-04-08] MEDS: PIPER TAZO 3.375 GM in NA CHLORIDE 0.9% 100 ML IV SCH (17:53)
[2021-04-08] MEDS: BENZONATATE 100 MG CAP PO PRN (18:05)
[2021-04-08] MEDS: MORPHINE 2 MG/ML SYR IV PRN (18:05)
[2021-04-08] MEDS: INSULIN GLARGINE 100 UNITS/ML SQ SCH (20:27)
[2021-04-09] MEDS: PIPER TAZO 3.375 GM in NA CHLORIDE 0.9% 100 ML IV SCH ×2 (00:35→07:41)
[2021-04-09 03:43] LABS: Absolute Lymphocytes (CBC) 0.6 K/uL (0.7-4.9); Basophils % 0.1 % (0-1.3); Hematocrit 35.6 % (39.6-49.0); Lymphocytes % 5.8 % (15.3-44.8); MPV 8.6 fL (7.6-11.3); RBC Red Blood Cell Count 3.96 M/uL (4.33-5.43)
[2021-04-09 04:01] LABS: BUN Blood Urea Nitrogen 19 mg/dL (7-18); Bicarbonate 26 mmol/L (21-32); Glucose Level 351 mg/dL (74-106); Potassium 4.3 mmol/L (3.5-5.1); Sodium Level 133 mmol/L (136-145)
[2021-04-09] MEDS: INSULIN GLARGINE 100 UNITS/ML SQ SCH ×2 (07:39→20:47)
[2021-04-09] MEDS: INSULIN -REGULAR HUMAN 50 UNIT/0.5 ML ML SQ SCH ×4 (07:39→20:48)
[2021-04-09] MEDS: APIXABAN 2.5 MG TABLET PO SCH (07:40)
[2021-04-09] MEDS: METHYLPREDNISOLONE 40 MG INJ IV SCH (07:40)
[2021-04-09] MEDS: ASPIRIN EC 81 MG TAB PO SCH (07:40)
[2021-04-09] MEDS: BENZONATATE 100 MG CAP PO PRN (07:40)
[2021-04-09] MEDS ORDERED: CEFTRIAXONE 1 GM/NS 50 ML 1 GM/50 ML BAG IV SCH (09:00)
[2021-04-09] MEDS ORDERED: AZITHROMYCIN IV 500 MG in NA CHLORIDE 0.9% 250 ML IVPB SCH (09:00)
--- NOTE | 2021-04-09 11:15 | P.CNS ---
Date of Consult: 04/09/21 Chief Complaint: Chest pain History of Present Illness: Patient is a 55-year male with a past medical of history pulmonary embolism and was recently hospitalized for COVID 19 PNA on 03/26 discharged on 03/30 presented to the emergency department due to atypical chest pain. Patient s tates that is his chest pain is worse with respiration and coughing. He reports a productive cough of yellow/green tinged foul-smelling sputum for the past 2 weeks. Patient is on 3 L of oxygen at home status post COVID. Chest x-ray showed a 5 cm cavitary lesion concerning for pulmonary abscess as well as a right-sided pleural effusion with air concerning for empyema versus bronchial funding specialist. Also showed pulmonary opacities concerning for pneumonia. The Infectious disease, has been consulted to manage the patient's antibiotic regimen. The patient received a single dose of Levaquin and is now on Zosyn. Patient currently denying nausea/vomiting/diarrhea. Patient reports atypical chest pain worse with respirations/coughing and productive cough of green/yellow tinged sputum. Allergies No Known Allergies Allergy (Unverified 09/06/17 15:47) Home Medications: Metformin HCl 1,000 mg PO BID 12/18/18 Apixaban [Eliquis] 5 mg PO BID tablet 03/29/21 Thiamine HCl [Vitamin B-1*] 100 mg PO DAILY #30 tablet 03/30/21 Ascorbic Acid [Vitamin C*] 1,000 mg PO DAILY 04/07/21 Colchicine 0.6 mg PO DAILY 04/07/21 Fenofibrate 160 mg PO DAILY 04/07/21 Gabapentin 600 mg PO TID 04/07/21 Glimepiride 4 mg PO BID 04/07/21 Zinc Sulfate [Zinc Sulfate*] 50 mg PO DAILY 04/07/21 lisinopriL [Lisinopril] 20 mg PO DAILY 04/07/21 predniSONE [Prednisone*] 5 mg PO SEECOM 04/07/21 - Past Medical/Surgical History Diabetic: Yes -: DM -: COVID-19 pneumonia -: Dyspnea on exertion -: Multifocal pneumonia -: Pulmonary embolism -: Cholelithiasis -: Abdominal pain -: Neuropathy -: Right knee sx/repair Psychosocial/ Personal History: Currently unemployed. Lives at home by himself - Family History Father Medical History: Diabetes Mother Medical History: Heart disease Sister Medical History: Heart disease - Social History Alcohol use: Yes CD- Drugs: No Caffeine use: No Place of Residence: Home Review of Systems 10-point ROS is otherwise unremarkable Physical Examination Temp Pulse Resp BP Pulse Ox 97.9 F 80 20 131/76 95 04/09/21 07:36 04/09/21 07:36 04/09/21 07:36 04/09/21 07:36 04/09/21 07:36 General: Alert, In no apparent distress, Oriented x3 HEENT: Atraumatic, Normocephalic Neck: Supple, 2+ carotid pulse no bruit Respiratory: Other (Decreased breath sounds and a right lower lobe. Bibasilar crackles/rales) Cardiovascular: No edema, Normal pulses, Regular rate/rhythm Capillary refill: <2 Seconds Gastrointestinal: Normal bowel sounds, Soft and benign, Non-distended Musculoskeletal: No clubbing, No swelling, No contractures Integumentary: No rashes, No breakdown, No significant lesion Neurological: Normal speech External genitalia: Deferred Rectal: Deferred Conclusions/Impression: Antibiotics: Zosyn Start: 04/09 Assessment/plan Pulmonary absent CT chest showed a 5 cm cavitary lesion in the right lower lobe concerning for pulmonary abscess. Blood and sputum cultures pending. QuantiFERON gold pending. Patient started on IV Zosyn on 04/09. Clinically patient is improving, has been afebrile with no leukocytosis. If patient continues to improve clinically can switch to oral antibiotic such as Augmentin. Patient will need treatment for 3-4 weeks. Recommend follow up outpatient with pulmonology. Right-sided empyema vs bronchial pulmonary fistula Continue current antibiotics, recommend repeat imaging. Diabetes Continue sliding scale insulin Anemia Continue to monitor H&H Protein caloric malnutrition: Moderate Recommend supplemental Ensure protein drinks Medical management per primary team Continue to monitor CBC and BMP Continue to monitor for signs of infection Plan of care discussed with Dr. Merino Thank you for consultation.
--- NOTE | 2021-04-09 12:46 | P.CNS ---
Date of Consult: 04/09/21 Reason for Consult: Shortness of breath Chief Complaint: Chest pain History of Present Illness: Patient is 55 years of age history of Covid pulmonary embolism been having problems over the past month hospitalized twice came in worsening shortness of breath and chest pain x-ray was abnormal patient is compliant Allergies No Known Allergies Allergy (Unverified 09/06/17 15:47) Home Medications: Metformin HCl 1,000 mg PO BID 12/18/18 Apixaban [Eliquis] 5 mg PO BID tablet 03/29/21 Thiamine HCl [Vitamin B-1*] 100 mg PO DAILY #30 tablet 03/30/21 Ascorbic Acid [Vitamin C*] 1,000 mg PO DAILY 04/07/21 Colchicine 0.6 mg PO DAILY 04/07/21 Fenofibrate 160 mg PO DAILY 04/07/21 Gabapentin 600 mg PO TID 04/07/21 Glimepiride 4 mg PO BID 04/07/21 Zinc Sulfate [Zinc Sulfate*] 50 mg PO DAILY 04/07/21 lisinopriL [Lisinopril] 20 mg PO DAILY 04/07/21 predniSONE [Prednisone*] 5 mg PO SEECOM 04/07/21 - Past Medical/Surgical History Diabetic: Yes -: DM -: COVID-19 pneumonia -: Dyspnea on exertion -: Multifocal pneumonia -: Pulmonary embolism -: Cholelithiasis -: Abdominal pain -: Neuropathy -: Right knee sx/repair Psychosocial/ Personal History: Currently unemployed. Lives at home by himself - Family History Father Medical History: Diabetes Mother Medical History: Heart disease Sister Medical History: Heart disease - Social History Alcohol use: Yes CD- Drugs: No Caffeine use: No Place of Residence: Home Review of Systems 10-point ROS is otherwise unremarkable General: Weakness Respiratory: Cough, Shortness of Breath Physical Examination Temp Pulse Resp BP Pulse Ox 97.9 F 80 20 120/81 93 04/09/21 11:15 04/09/21 11:15 04/09/21 11:15 04/09/21 11:15 04/09/21 11:15 General: Alert, Oriented x3 HEENT: Atraumatic Neck: Supple Respiratory: Clear to auscultation bilaterally Cardiovascular: No edema, Normal S1 S2 Gastrointestinal: Normal bowel sounds, Soft and benign - Problems (1) Pneumonia Current Visit: Yes Status: Acute Plan: Patient is 55 years of age recurrent hospital admissions has been having problems since his Covid infection history of pulmonary embolism on anticoagulation CT scan shows stability and abscess in the right lower lobe plan to reduce his steroids continue with Zosyn later changed him over to Augmentin and doxycycline for 2-week oxygenation vital signs all stable vital signs stable oxygenation satisfactory stable for discharge follow-up with me in 2 weeks Qualifiers: Lung location: lower lobe of lung
--- NOTE | 2021-04-09 14:34 | P.PN ---
Subjective Date of Service: 04/09/21 Chief Complaint: Chest pain Patient reports persistent cough. He reports cough with minimal movement. He is not tolerating room air. He reports improvement in the pleurisy. Physical Examination - Vital Signs Temperature: 97.9 F Blood Pressure: 120/81 Pulse: 80 Respirations: 20 Pulse Ox (%): 93 - Physical Exam General: Alert, In no apparent distress, Oriented x3 HEENT: Mucous membr. moist/pink Neck: JVD not distended Respiratory: Crackles/rales (Bilateral, worse on the right) Cardiovascular: No edema, Regular rate/rhythm, Normal S1 S2 Gastrointestinal: Soft and benign, Non-distended, No tenderness Musculoskeletal: No swelling Integumentary: No rashes Neurological: Normal strength at 5/5 x4 extr Assessment And Plan - Current Problems (Diagnosis) (1) Chest pain Current Visit: Yes Status: Acute (2) Pleurisy Current Visit: Yes Status: Acute (3) History of pulmonary embolus (PE) Current Visit: Yes Status: Acute (4) Diabetes Current Visit: No Status: Acute (5) Lung abscess Current Visit: Yes Status: Acute - Plan Pneumonia due to COVID 19/secondary bacterial pneumonia/lung abscess/acute respiratory failure with hypoxia: * Patient completed oral Levaquin at home. * Pulmonary input appreciated. * Infectious disease input appreciated. * Antibiotics changed to oral argument and doxycycline. * Follow blood cultures * Sputum culture is pending * Blood cultures: No growth to date. * Patient is currently tolerating room air. * Chest physiotherapy * Supportive measures with antitussives * Pain management as needed. * Steroid discontinued by pulmonary. Chest pain * Noncardiac secondary to pleurisy. * Troponin trended negative * IV morphine p.r.n. for pain. DM type 2 with hyperglycemia * Patient with severe hyperglycemia. * Steroid contributing to the hyperglycemia. * Blood sugar management with Lantus insulin and insulin sliding scale
[2021-04-09] MEDS ORDERED: COLCHICINE 0.6 MG PO SCH (14:38)
[2021-04-09] MEDS: DOXYCYCLINE 100 MG CAP PO SCH (20:46)
[2021-04-09] MEDS: AMOX/K CLAV 875 MG TAB PO SCH (20:46)
[2021-04-09] MEDS: GABAPENTIN 300 MG CAP PO SCH (20:47)
[2021-04-09] MEDS: APIXABAN 5 MG TABLET PO SCH (20:47)
[2021-04-09] MEDS: MORPHINE 2 MG/ML SYR IV PRN (20:48)
[2021-04-09] MEDS ORDERED: APIXABAN 5 MG TABLET PO SCH (21:00)
[2021-04-09] MEDS ORDERED: HOME MED 1 EA UNK (Gabapentin [Gabapentin] 600 MG Tablet) PO SCH (21:00)
[2021-04-10] MEDS: BENZONATATE 100 MG CAP PO PRN ×2 (01:55→08:33)
[2021-04-10 05:12] LABS: Absolute Lymphocytes (CBC) 1.7 K/uL (0.7-4.9); Basophils % 0.2 % (0-1.3); Hematocrit 38.7 % (39.6-49.0); Lymphocytes % 19.1 % (15.3-44.8); MPV 8.6 fL (7.6-11.3); RBC Red Blood Cell Count 4.31 M/uL (4.33-5.43)
[2021-04-10 05:26] LABS: BUN Blood Urea Nitrogen 18 mg/dL (7-18); Bicarbonate 29 mmol/L (21-32); Glucose Level 148 mg/dL (74-106); Potassium 3.6 mmol/L (3.5-5.1); Sodium Level 138 mmol/L (136-145)
[2021-04-10] MEDS: INSULIN -REGULAR HUMAN 50 UNIT/0.5 ML ML SQ SCH ×2 (07:30→11:37)
[2021-04-10] MEDS ORDERED: ASCORBIC ACID 500 MG TABLET PO SCH (08:00)
[2021-04-10] MEDS: AMOX/K CLAV 875 MG TAB PO SCH (08:33)
[2021-04-10] MEDS: ASPIRIN EC 81 MG TAB PO SCH (08:33)
[2021-04-10] MEDS: GABAPENTIN 300 MG CAP PO SCH (08:33)
[2021-04-10] MEDS: APIXABAN 5 MG TABLET PO SCH (08:33)
[2021-04-10] MEDS: DOXYCYCLINE 100 MG CAP PO SCH (08:33)
[2021-04-10] MEDS: INSULIN GLARGINE 100 UNITS/ML SQ SCH (08:34)
[2021-04-10 08:46] VITALS: TEMP 97.9
[2021-04-10] MEDS ORDERED: COLCHICINE 0.6 MG TAB PO SCH (09:00)
[2021-04-10] MEDS ORDERED: FENOFIBRATE 160 MG TAB PO SCH (09:00)
[2021-04-10] MEDS ORDERED: lisinopriL 20 MG TAB PO SCH (09:00)
[2021-04-10] MEDS ORDERED: ZINC SULFATE 220 MG CAP PO SCH (09:00)
[2021-04-10 09:29] VITALS: O2SAT 93
[2021-04-10 11:43] VITALS: BP 120/71
--- NOTE | 2021-04-10 12:26 | P.DS ---
Admission Date: 04/08/21 Discharge Date: 04/10/21 Disposition: ROUTINE DISCHARGE Discharge Condition: FAIR Reason for Admission: Chest pain - Problems (1) Chest pain Current Visit: Yes Status: Acute (2) Pleurisy Current Visit: Yes Status: Acute (3) History of pulmonary embolus (PE) Current Visit: Yes Status: Acute (4) Diabetes Current Visit: No Status: Acute (5) Lung abscess Current Visit: Yes Status: Acute Brief History of Present Illness: 55-year-old gentleman with a history of pulmonary embolism, if recently hospitalized on 03/26, treated for COVID pneumonia and discharged on 03/30 presented to the emergency department with a complaint of chest pain. Patient reports for frequent nonproductive cough with chest pain as a result of the cough. He also complains of chest pain worse with deep breathing. Initial troponin negative. EKG shows right bundle branch block with no ischemic changes. Chest x-ray demonstrated moderate bilateral pulmonary infiltrates. Patient hospitalized for further management. Hospital Course: Patient admitted to the medical and started on aggressive antibiotic therapy- initially IV Rocephin and Zithromax. CT chest done showed right lower lung cavitary lesion consistent with lung abscess. Infectious diseases and pulmonary consulted. Antibiotics changed to IV Levaquin and Zosyn. Patient clinically improved dole was still coughing. He was weaned off oxygen and has tolerated room air for a couple of days. Patient deemed stable for discharge per pulmonary-Dr. Govea. Dr. Govea recommend Augmentin and doxycycline for 2 weeks. He will also follow up with him in the office. Infectious disease recommended Quantiferon Gold test which was sent and the result is pending. This needs to be followed as an outpatient. Vital Signs/Physical Exam: Temp Pulse Resp BP Pulse Ox 97.9 F 92 H 18 120/71 93 04/10/21 11:42 04/10/21 11:42 04/10/21 11:42 04/10/21 11:42 04/10/21 11:42 General: Alert, In no apparent distress, Oriented x3 HEENT: Mucous membr. moist/pink Neck: JVD not distended Respiratory: Normal air movement, Crackles/rales (Bibasilar) Cardiovascular: No edema, Regular rate/rhythm, Normal S1 S2 Gastrointestinal: Normal bowel sounds, Soft and benign, Non-distended Musculoskeletal: No swelling Integumentary: No rashes Neurological: Normal strength at 5/5 x4 extr Laboratory Data at Discharge: WBC 9.10 K/uL (4.3-10.9) 04/10/21 04:37 Hgb 13.0 g/dL (13.6-17.9) L 04/10/21 04:37 Hct 38.7 % (39.6-49.0) L 04/10/21 04:37 Plt Count 248 K/uL (152-406) 04/10/21 04:37 PT 17.6 SECONDS (9.5-12.5) H 04/07/21 15:57 INR 1.52 04/07/21 15:57 Sodium 138 mmol/L (136-145) 04/10/21 04:37 Potassium 3.6 mmol/L (3.5-5.1) 04/10/21 04:37 BUN 18 mg/dL (7-18) 04/10/21 04:37 Creatinine 0.68 mg/dL (0.55-1.3) 04/10/21 04:37 Glucose 148 mg/dL (74-106) H 04/10/21 04:37 Magnesium 1.7 mg/dL (1.8-2.4) L 04/07/21 15:57 Total Bilirubin 0.3 mg/dL (0.2-1.0) 04/07/21 15:57 AST 10 U/L (15-37) L 04/07/21 15:57 ALT 44 U/L (12-78) 04/07/21 15:57 Alkaline Phosphatase 101 U/L (45-117) 04/07/21 15:57 Troponin I < 0.02 ng/mL (0.0-0.045) 04/08/21 00:41 Triglycerides 109 mg/dL (<150) 04/07/21 20:33 Cholesterol 165 mg/dL (<200) 04/07/21 20:33 HDL Cholesterol 38 mg/dL (40-60) L 04/07/21 20:33 Cholesterol/HDL Ratio 4.34 04/07/21 20:33 Home Medications: Metformin HCl 1,000 mg PO BID 12/18/18 Apixaban [Eliquis] 5 mg PO BID tablet 03/29/21 Thiamine HCl [Vitamin B-1*] 100 mg PO DAILY #30 tablet 03/30/21 Ascorbic Acid [Vitamin C*] 1,000 mg PO DAILY 04/07/21 Colchicine 0.6 mg PO DAILY 04/07/21 Fenofibrate 160 mg PO DAILY 04/07/21 Gabapentin 600 mg PO TID 04/07/21 Glimepiride 4 mg PO BID 04/07/21 Zinc Sulfate [Zinc Sulfate*] 50 mg PO DAILY 04/07/21 lisinopriL [Lisinopril] 20 mg PO DAILY 04/07/21 Amox/Clavulanate [Augmentin 875-125 Tab*] 875 mg PO BID #26 tab 04/10/21 Benzonatate [Tessalon Perle*] 100 mg PO Q6H PRN #30 cap 04/10/21 Doxycycline Hyclate 100 mg PO BID #26 capsule 04/10/21 Guaif/Dm [Robitussin Dm] 10 ml PO QID PRN #60 ucup 04/10/21 New Medications: Amox/Clavulanate [Augmentin 875-125 Tab*] 875 mg PO BID #26 tab Doxycycline Hyclate 100 mg PO BID #26 capsule Guaif/Dm [Robitussin Dm] 10 ml PO QID PRN #60 ucup PRN Reason: Cough Benzonatate [Tessalon Perle*] 100 mg PO Q6H PRN #30 cap PRN Reason: Cough Diet: ADA Activity: Ad griffin Followup: Nichelle Alvares NP [Primary Care Provider] - 1-2 Weeks Ronaldo Govea MD [ACTIVE - CAN ADMIT] - 1 Week Time spent managing pt's care (in minutes): 36
== END 2021-04-10 13:45 | disposition home or self-care (01) | DRG 178 ==
LOC: ER 14:03 → ERHOLD 18:12 → 4TH 19:24 → OBSVTOIN 04-08 08:12
PROVIDERS: ADMIT Internal Medicine; ATTEND Internal Medicine
DX: J85.1 Abscess of lung with pneumonia (principal); E44.0 Moderate protein-calorie malnutrition; E11.65 Type 2 diabetes mellitus with hyperglycemia; D64.9 Anemia, unspecified; I45.10 Unspecified right bundle-branch block; U09.9 Post COVID-19 condition, unspecified; R09.1 Pleurisy; R07.9 Chest pain, unspecified; Z86.711 Personal history of pulmonary embolism; Z79.84 Long term (current) use of oral hypoglycemic drugs; Z68.32 Body mass index [BMI] 32.0-32.9, adult; Z79.01 Long term (current) use of anticoagulants; Z79.52 Long term (current) use of systemic steroids; Z79.899 Other long term (current) drug therapy; Z56.0 Unemployment, unspecified; Z60.2 Problems related to living alone; Z20.822 Contact with and (suspected) exposure to COVID-19
CPT/HCPCS: 36415; 71045; 71275; 80048; 80061; 80076; 82728; 82947; 83735; 83880; 84484; 85025; 85610; 86140; 86480; 87040; 87070; 87205; 93005; 94760; 96361; 96374; 96375; 99284; G0378; J0456; J1815; J2270; J2543; J2920; J7030; J7050; Q9967; U0003

== ENCOUNTER 2022-06-15 11:43 | Emergency (ER) | payer SELFPAY ==
--- OUTSIDE RECORDS SUMMARY | 2022-06-15 11:47 | XMS REPORT | Continuity of Care Document ---
:1965 Author Organization [facility] t Address [address] [place] [address] Care Team Providers Name Role Phone Nichelle Quevedo Attending Clinician Unavailable SOLE Attending Clinician Unavailable Tati Garcia Attending Clinician [phone] SOLE Admitting Clinician Unavailable Payers Payer Name Policy Type Policy Number Effective Date Expiration Date S ource Problems Condition Condition Condition Status Onset Resolution Last Treating Co mments Source Name Details Category Date Date Treatment Clinician Date Diabetes Diabetes Problem Active Sween y mellitus Mellitus 01-05 Commun i 00:00: ty [facility] Neuropathy Neuropathy Problem Active S weeny 01-05 Communi 00:00: ty 00 [facility] Hypertensi Hypertensi Problem Active Tosha amaya 7-19 Communi disorder Disorder 00:00: ty 00 Hospita Clinics Gout Gout Problem Active [facility] [id number] Constipati Problem Active Com mon on, [facility] Peripheral Peripheral Problem Active C ommon neuropathy neuropathy Sp khai - [facility] Hyperlipid Hyperlipid Problem Active C ommon emia emia [facility] [id number] Essential Problem Active Comm on hypertensi Spirit on [facility] [id number] 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 Social History Social Habit Start Date Stop Date Quantity Comments Source History of Tobacco Use Co mmon [facility] Sex Assigned At Com [facility] Smoking Status Start Date Stop Date Source Never Smoker [facility] Medications Ordered Filled Start Stop Current Ordering Indication Dosage Frequency Signature Comments Components Source Medication Medication Date Date Medication? Clinician (SIG) Name Name Indomethaci Indomethaci 2021- No 1{capsu QD Indomethac n ER 75 MG n ER 75 MG 08-10 le_with in ER 75 00:00: 00:00 _food} MG 00 :00 Indomethaci Indomethaci 2021- No 1{capsu QD Indomethac n ER 75 MG n ER 75 MG 08-10 le_with in ER 75 00:00: 00:00 _food} MG 00 :00 Indomethaci Indomethaci 2021- No 1{capsu QD Indomethac n ER 75 MG n ER 75 MG 08-10 le_with in ER 75 00:00: 00:00 _food} MG 00 :00 Indomethaci Indomethaci 2021- No 1{capsu QD Indomethac n ER 75 MG n ER 75 MG 08-10 le_with in ER 75 00:00: 00:00 _food} MG 00 :00 Lactulose Lactulose 2- No 15{ml} QD Lactulose 10 GM/15ML 10 GM/15ML 08-10 10 GM/15ML 00:00: 00:00 00 :00 Lactulose Lactulose 2021-0 2- No 15{ml} QD Lactulose 10 GM/15ML 10 GM/15ML 08-10 10 GM/15ML 00:00: 00:00 00 :00 Lactulose Lactulose 2021-0 2- No 15{ml} QD Lactulose 10 GM/15ML 10 GM/15ML 08-10 10 GM/15ML 00:00: 00:00 00 :00 Lactulose Lactulose 2021-0 2021- No 15{ml} QD Lactulose 10 GM/15ML 10 GM/15ML 08-10 10 GM/15ML 00:00: 00:00 00 :00 Colchicine Colchicine 2020-2021- No 1{table QD [place]icine 0.6 MG 0.6 MG 0-12 05-14 t} 0.6 MG 00:00: 00:00 00 :00 Colchicine Colchicine 2020-2021- No 1{table QD [place] 0.6 MG 0.6 MG 0-12 05-14 t} 0.6 MG 00:00: 00:00 00 :00 Colchicine Colchicine 2020-2021- No 1{table QD [place] 0.6 MG 0.6 MG 0-12 04-10 t} 0.6 MG 00:00: 00:00 00 :00 Glimepiride Glimepiride Yes Nichelle 1 tablet Common 08-19 [place] [facility] 00:00: - [facility] 00 [facility] Lisinopril Lisinopril No 1{table QD Lisinopril 20 MG 20 MG 3-02 t} 20 MG 00:00: 00 Fenofibrate Fenofibrate No 1{table QD Fenofibrat 160 MG 160 MG 3-02 t_with_ e 160 MG 00:00: food} 00 Glimepiride Glimepiride No Glimepirid 4 MG 4 MG 3-02 e 4 MG 00:00: 00 Lisinopril Lisinopril No 1{table QD Lisinopril 20 MG 20 MG 3-02 t} 20 MG 00:00: 00 Fenofibrate Fenofibrate 0 No 1{table QD Fenofibrat 160 MG 160 MG 3-02 t_with_ e 160 MG 00:00: food} 00 Glimepiride Glimepiride 2017-0 No Glimepirid 4 MG 4 MG 3-02 e 4 MG 00:00: 00 Lisinopril Lisinopril 2018-0 No 1{table QD Lisinopril 20 MG 20 MG 3-02 t} 20 MG 00:00: 00 Fenofibrate Fenofibrate No 1{table QD Fenofibrat 160 MG 160 MG 3-02 t_with_ e 160 MG 00:00: food} 00 Glimepiride Glimepiride No Glimepirid 4 MG 4 MG 3- e 4 MG 00:00: 00 Fenofibrate Fenofibrate No 1{table QD Fenofibrat 160 MG 160 MG 3-02 t_with_ e 160 MG 00:00: food} 00 Lisinopril Lisinopril No 1{table QD Lisinopril 20 MG 20 MG 3-02 t} 20 MG 00:00: 00 Glimepiride Glimepiride 2017- No Glimepirid 4 MG 4 MG 3-02 e 4 MG 00:00: 00 metFORMIN metFORMIN No 1{table BID metFORMIN HCl 1000 MG HCl 1000 MG 3-02 t_with_ HCl 1000 00:00: meals} MG 00 Fenofibrate Fenofibrate No 1{table QD Fenofibrat 160 MG 160 MG 3-02 t_with_ e 160 MG 00:00: food} 00 Lisinopril Lisinopril No 1{table QD Lisinopril 20 MG 20 MG 3-02 t} 20 MG 00:00: 00 Glimepiride Glimepiride 0 No Glimepirid 4 MG 4 MG 3-02 e 4 MG 00:00: 00 Gabapentin Gabapentin 2018- No 1{table TID Gabapentin 600 MG 600 MG 3-02 t} 600 MG 00:00: 00 Fenofibrate Fenofibrate No 1{table QD Fenofibrat 160 MG 160 MG 3-02 t_with_ e 160 MG 00:00: food} 00 Glimepiride Glimepiride No Glimepirid 4 MG 4 MG 3-02 e 4 MG 00:00: 00 Gabapentin Gabapentin No 1{table TID Gabapentin 600 MG 600 MG 3-02 t} 600 MG 00:00: 00 Lisinopril Lisinopril No 1{table QD Lisinopril 20 MG 20 MG 3-02 t} 20 MG 00:00: 00 Gabapentin Gabapentin No 1{table TID Gabapentin 600 MG 600 MG 3-02 t} 600 MG 00:00: 00 Fenofibrate Fenofibrate No 1{table QD Fenofibrat 160 MG 160 MG 3-02 t_with_ e 160 MG 00:00: food} 00 Glimepiride Glimepiride No Glimepirid 4 MG 4 MG 3-02 e 4 MG 00:00: 00 Lisinopril Lisinopril No 1{table QD Lisinopril 20 MG 20 MG 3-02 t} 20 MG 00:00: 00 Gabapentin Gabapentin No 1{table TID Gabapentin 600 MG 600 MG 3-02 t} 600 MG 00:00: 00 Glimepiride Glimepiride No Glimepirid 4 MG 4 MG 3-02 e 4 MG 00:00: 00 Fenofibrate Fenofibrate No 1{table QD Fenofibrat 160 MG 160 MG 3-02 t_with_ e 160 MG 00:00: food} 00 Lisinopril Lisinopril No 1{table QD Lisinopril 20 MG 20 MG 3-02 t} 20 MG 00:00: 00 testosteron testosteron No testostero [place] e cypionate e cypionate ne C ommuni 200 mg/mL 200 mg/mL cypionate ty intramuscul intramuscul 200 mg/mL Hospita ar oil ar oil intramuscu l INJECT 0.5 INJECT 0.5 lar oil Clinics ML (100 MG) ML (100 MG) INJECT 0.5 EVERY 2 EVERY 2 ML (100 WEEKS BY WEEKS BY MG) EVERY INTRAMUSCUL INTRAMUSCUL 2 WEEKS BY AR ROUTE. AR ROUTE. INTRAMUSCU LAR ROUTE. Thiamine Thiamine No Thiamine Vitamin D Vitamin D No 1{capsu QD Vitamin D 50 MCG 50 MCG le} 50 MCG (1999) (1999) (1999) Vitamin C Vitamin C No 1{table QD Vitamin C 1000 MG 1000 MG t} 1000 MG Zinc 50 MG Zinc 50 MG No 1{table QD Zinc 50 MG t} metFORMIN metFORMIN No 1{table BID metFORMIN HCl 1000 MG HCl 1000 MG t_with_ HCl 1000 meals} MG Thiamine Thiamine No Thiamine Vitamin D Vitamin D No 1{capsu QD Vitamin D 50 MCG 50 MCG le} 50 MCG (1999) (1999) (1999) Vitamin C Vitamin C No 1{table QD Vitamin C 1000 MG 1000 MG t} 1000 MG Zinc 50 MG Zinc 50 MG No 1{table QD Zinc 50 MG t} metFORMIN metFORMIN No 1{table BID metFORMIN HCl 1000 MG HCl 1000 MG t_with_ HCl 1000 meals} MG Thiamine Thiamine No Thiamine Vitamin D Vitamin D No 1{capsu QD Vitamin D 50 MCG 50 MCG le} 50 MCG (1999) (1999) (1999) Vitamin C Vitamin C No 1{table QD Vitamin C 1000 MG 1000 MG t} 1000 MG Zinc 50 MG Zinc 50 MG No 1{table QD Zinc 50 MG t} metFORMIN metFORMIN No 1{table BID metFORMIN HCl 1000 MG HCl 1000 MG t_with_ HCl 1000 meals} MG Thiamine Thiamine No Thiamine Vitamin D Vitamin D No 1{capsu QD Vitamin D 50 MCG 50 MCG le} 50 MCG (1999) (1999) (1999 UT) Vitamin C Vitamin C No 1{table QD Vitamin C 1000 MG 1000 MG t} 1000 MG Zinc 50 MG Zinc 50 MG No 1{table QD Zinc 50 MG t} metFORMIN metFORMIN No 1{table BID metFORMIN HCl 1000 MG HCl 1000 MG t_with_ HCl 1000 meals} MG Vitamin D Vitamin D No 1{capsu QD Vitamin D 50 MCG 50 MCG le} 50 MCG (1999) (1999 UT) (1999 UT) predniSONE predniSONE No predniSONE 5 MG (48) 5 MG (48) 5 MG (48) Oxygen Oxygen No Oxygen concentrato concentrato concentrat r n/s r n/s or n/s Thiamine Thiamine No Thiamine metFORMIN metFORMIN No 1{table BID metFORMIN HCl 1000 MG HCl 1000 MG t_with_ HCl 1000 meals} MG Vitamin C Vitamin C No 1{table QD Vitamin C 1000 MG 1000 MG t} 1000 MG Zinc 50 MG Zinc 50 MG No 1{table QD Zinc 50 MG t} Eliquis 5 Eliquis 5 No Eliquis 5 mg 5 mg mg 5 mg mg 5 mg Vitamin D Vitamin D No 1{capsu QD Vitamin D 50 MCG 50 MCG le} 50 MCG (1999) (1999) (1999) Oxygen Oxygen No Oxygen concentrato concentrato concentrat r n/s r n/s or n/s Zinc 50 MG Zinc 50 MG No 1{table QD Zinc 50 MG t} Thiamine Thiamine No Thiamine predniSONE predniSONE No predniSONE 5 MG (48) 5 MG (48) 5 MG (48) Vitamin C Vitamin C No 1{table QD Vitamin C 1000 MG 1000 MG t} 1000 MG Eliquis 5 Eliquis 5 No Eliquis 5 mg 5 mg mg 5 mg mg 5 mg metFORMIN metFORMIN No 1{table BID metFORMIN HCl 1000 MG HCl 1000 MG t_with_ HCl 1000 meals} MG Eliquis 5 Eliquis 5 No Eliquis 5 mg 5 mg mg 5 mg mg 5 mg metFORMIN metFORMIN No 1{table BID metFORMIN HCl 1000 MG HCl 1000 MG t_with_ HCl 1000 meals} MG Thiamine Thiamine No Thiamine Vitamin D Vitamin D No 1{capsu QD Vitamin D 50 MCG 50 MCG le} 50 MCG (1999) (1999) (1999) Vitamin C Vitamin C No 1{table QD Vitamin C 1000 MG 1000 MG t} 1000 MG predniSONE predniSONE No predniSONE 5 MG (48) 5 MG (48) 5 MG (48) Zinc 50 MG Zinc 50 MG No 1{table QD Zinc 50 MG t} Oxygen Oxygen No Oxygen concentrato concentrato concentrat r n/s r n/s or n/s gabapentin gabapentin No 1 TID gabapentin [place] 600 mg 600 mg 600 mg Communi tablet Take tablet Take tablet ty 1 tablet 3 1 tablet 3 Take 1 H ospita times a day times a day tablet 3 l by oral by oral times a Clinic s route for route for day by 90 days. 90 days. oral route for 90 days. glimepiride glimepiride No glimepirid [place] 4 mg tablet 4 mg tablet e 4 mg Communi TAKE 1 TAKE 1 tablet ty TABLET BY TABLET BY TAKE 1 Hos elli MOUTH TWICE MOUTH TWICE TABLET BY l DAILY WITH DAILY WITH MOUTH Cl inics MEALS MEALS TWICE DAILY WITH MEALS indomethaci indomethaci No indomethac [place] n ER 75 mg n ER 75 mg in ER 75 Communi capsule,ext capsule,ext mg t y ended ended capsule,ex Hospita release release tended l TAKE 1 TAKE 1 release Clinics CAPSULE BY CAPSULE BY TAKE 1 MOUTH WITH MOUTH WITH CAPSULE BY FOOD ONCE FOOD ONCE MOUTH WITH DAILY DAILY FOOD ONCE DAILY lactulose lactulose No 15mL Q1D lactulose [place] 10 gram/15 10 gram/15 10 gram/15 Communi mL oral mL oral mL oral ty solution solution solution Hos elli Take 15 mL Take 15 mL Take 15 mL l every day every day every day Clinics by oral by oral by oral route as route as route as needed for needed for needed for 30 days. 30 days. 30 days. lisinopril lisinopril No 1 Q1D lisinopril [place] 10 mg 10 mg 10 mg Communi tablet Take tablet Take tablet ty 1 tablet 1 tablet Take 1 Hospi ta every day every day tablet l by oral by oral every day Clin ics route. route. by oral route. metformin metformin No metformin [place] 1,000 mg 1,000 mg 1,000 mg Com julio cesar tablet TAKE tablet TAKE tablet ty 1 TABLET BY 1 TABLET BY TAKE 1 Hospita MOUTH TWICE MOUTH TWICE TABLET BY l DAILY WITH DAILY WITH MOUTH Cl inics FOOD FOOD TWICE DAILY WITH FOOD aspirin 81 aspirin 81 No aspirin 81 [place] mg daily mg daily mg daily Com julio cesar ty Hospita l Clinics atorvastati atorvastati No 1 Q1D atorvastat [place] n 40 mg n 40 mg in 40 mg Commu ni tablet Take tablet Take tablet ty 1 tablet 1 tablet Take 1 Hospi ta every day every day tablet l by oral by oral every day Clin ics route at route at by oral bedtime for bedtime for route at 90 days. 90 days. bedtime for 90 days. cholecalcif cholecalcif No 1capsul Q1W cholecalci [place] sangita sangita e(s) ferol Communi (vitamin (vitamin (vitamin ty D3) 1,250 D3) 1,250 D3) 1,250 Hospita mcg (50,000 mcg (50,000 mcg l unit) unit) (50,000 Clinics capsule capsule unit) Take 1 Take 1 capsule capsule capsule Take 1 every week every week capsule by oral by oral every week route for route for by oral 84 days. 84 days. route for 84 days. gabapentin gabapentin No 1 TID gabapentin [place] 600 mg 600 mg 600 mg Communi tablet Take tablet Take tablet ty 1 tablet 3 1 tablet 3 Take 1 H ospita times a day times a day tablet 3 l by oral by oral times a Clinic s route for route for day by 90 days. 90 days. oral route for 90 days. glimepiride glimepiride No glimepirid [place] 4 mg tablet 4 mg tablet e 4 mg Communi TAKE 1 TAKE 1 tablet ty TABLET BY TABLET BY TAKE 1 Hos elli MOUTH TWICE MOUTH TWICE TABLET BY l DAILY WITH DAILY WITH MOUTH Cl inics MEALS MEALS TWICE DAILY WITH MEALS lisinopril lisinopril No 1 Q1D lisinopril [place] 10 mg 10 mg 10 mg Communi tablet Take tablet Take tablet ty 1 tablet 1 tablet Take 1 Hospi ta every day every day tablet l by oral by oral every day Clin ics route. route. by oral route. metformin metformin No metformin [place] 1,000 mg 1,000 mg 1,000 mg Com julio cesar tablet TAKE tablet TAKE tablet ty 1 TABLET BY 1 TABLET BY TAKE 1 Hospita MOUTH TWICE MOUTH TWICE TABLET BY l DAILY WITH DAILY WITH MOUTH Cl inics FOOD FOOD TWICE DAILY WITH FOOD testosteron testosteron No 100mg Q2W testostero [place] e cypionate e cypionate ne C ommuni 200 mg/mL 200 mg/mL cypionate ty intramuscul intramuscul 200 mg/mL Hospita ar oil ar oil intramuscu l Inject 100 Inject 100 lar oil Clinics mg every 2 mg every 2 Inject 100 weeks by weeks by mg every 2 intramuscul intramuscul weeks by ar route. ar route. intramuscu lar route. aspirin 81 aspirin 81 No aspirin 81 [place] mg daily mg daily mg daily Com julio cesar ty Hospita l Clinics atorvastati atorvastati No atorvastat [place] n 40 mg n 40 mg in 40 mg Commu ni tablet TAKE tablet TAKE tablet ty 1 TABLET BY 1 TABLET BY TAKE 1 Hospita MOUTH MOUTH TABLET BY l EVERYDAY AT EVERYDAY AT MOUTH Clinics BEDTIME BEDTIME EVERYDAY AT BEDTIME cholecalcif cholecalcif No cholecalci [place] sangita sangita ferol Communi (vitamin (vitamin (vitamin ty D3) 1,250 D3) 1,250 D3) 1,250 Hospita mcg (50,000 mcg (50,000 mcg l unit) unit) (50,000 Clinics capsule capsule unit) TAKE 1 TAKE 1 capsule CAPSULE BY CAPSULE BY TAKE 1 MOUTH EVERY MOUTH EVERY CAPSULE BY WEEK FOR 84 WEEK FOR 84 MOUTH DAYS DAYS EVERY WEEK FOR 84 DAYS gabapentin gabapentin No 1 TID gabapentin [place] 600 mg 600 mg 600 mg Communi tablet Take tablet Take tablet ty 1 tablet 3 1 tablet 3 Take 1 H ospita times a day times a day tablet 3 l by oral by oral times a Clinic s route for route for day by 90 days. 90 days. oral route for 90 days. glimepiride glimepiride No glimepirid [place] 4 mg tablet 4 mg tablet e 4 mg Communi TAKE 1 TAKE 1 tablet ty TABLET BY TABLET BY TAKE 1 Hos elil MOUTH TWICE MOUTH TWICE TABLET BY l DAILY WITH DAILY WITH MOUTH Cl inics MEALS MEALS TWICE DAILY WITH MEALS lactulose lactulose No lactulose [place] 10 gram/15 10 gram/15 10 gram/15 Communi mL oral mL oral mL oral ty solution solution solution Hos elli TAKE 15 ML TAKE 15 ML TAKE 15 ML l BY MOUTH BY MOUTH BY MOUTH Cli nics ONCE DAILY ONCE DAILY ONCE DAILY lisinopril lisinopril No 1 Q1D lisinopril [place] 10 mg 10 mg 10 mg Communi tablet Take tablet Take tablet ty 1 tablet 1 tablet Take 1 Hospi ta every day every day tablet l by oral by oral every day Clin ics route. route. by oral route. metformin metformin No metformin [place] 1,000 mg 1,000 mg 1,000 mg Com julio cesar tablet TAKE tablet TAKE tablet ty 1 TABLET BY 1 TABLET BY TAKE 1 Hospita MOUTH TWICE MOUTH TWICE TABLET BY l DAILY WITH DAILY WITH MOUTH Cl inics FOOD FOOD TWICE DAILY WITH FOOD Mounjaro 5 Mounjaro 5 No 5mg Q1W Mounjaro 5 [place] mg/0.5 mL mg/0.5 mL mg/0.5 mL Communi subcutaneou subcutaneou subcutaneo ty s pen s pen us pen Hospita injector injector injector l Inject 5 mg Inject 5 mg Inject 5 Clinics every week every week mg every by by week by subcutaneou subcutaneou subcutaneo s route for s route for us route 84 days. 84 days. for 84 days. Vital Signs Vital Name Observation Time Observation Value Comments Source BP Diastolic 2022-05-20 00:00:00 82 mm[Hg] [place] [facility] s Height 2022-05-20 00:00:00 69 [in_i] [facility] s BMI (Body Mass 2022-05-20 00:00:00 36.8 kg/m2 [facility]) [facility] s BP Systolic 2022-05-20 00:00:00 145 mm[Hg] [facility] s Body Weight 2022-05-20 00:00:00 3984 [oz_av] [facility] s BP Diastolic 2022-01-05 00:00:00 92 mm[Hg] [facility] s Height 2022-01-05 00:00:00 69 [in_i] [facility] s BMI (Body Mass 2022-01-05 00:00:00 36.8 kg/m2 [facility]) [facility] s BP Systolic 2022-01-05 00:00:00 146 mm[Hg] [facility] s Body Weight 2022-01-05 00:00:00 3984 [oz_av] [facility] s height 2021-08-10 14:20:00 68 [in_i] [facility] weight 2021-08-10 14:20:00 240.8 [lb_av] Common [facility] temperature 2021-08-10 14:20:00 97.2 [degF] Common [facility] bmi 2021-08-10 14:20:00 36.61 kg/m2 [facility] oximetry 2021-08-10 14:20:00 98 % [facility] respiratory rate 2021-08-10 14:20:00 16 /min Comm on [facility] blood pressure 2021-08-10 14:20:00 132 mm[Hg] [facility] - systolic [facility] blood pressure 2021-08-10 14:20:00 84 mm[Hg] [facility] - diastolic [facility] height 2021-03-31 13:20:00 68 [in_i] Common [facility] weight 2021-03-31 13:20:00 220 [lb_av] Common [facility] temperature 2021-03-31 13:20:00 97.8 [degF] Common [facility] bmi 2021-03-31 13:20:00 33.45 kg/m2 Common [facility] oximetry 2021-03-31 13:20:00 94 % Common [facility] blood pressure 2021-03-31 13:20:00 118 mm[Hg] [facility] - systolic [facility] blood pressure 2021-03-31 13:20:00 88 mm[Hg] Common [facility] - diastolic [facility] height 2021-02-11 11:00:00 68 [in_i] Common [facility] weight 2021-02-11 11:00:00 243 [lb_av] [facility] temperature 2021-02-11 11:00:00 98.2 [degF] [facility] bmi 2021-02-11 11:00:00 36.94 kg/m2 [facility] oximetry 2021-02-11 11:00:00 96 % [facility] respiratory rate 2021-02-11 11:00:00 16 /min Comm on [facility] blood pressure 2021-02-11 11:00:00 125 mm[Hg] [facility] - systolic [facility] blood pressure 2021-02-11 11:00:00 63 mm[Hg] Common [facility] - diastolic [facility] Procedures This patient has no known procedures. Plan of Care Planned Activity Planned Date Details Comments Source Diagnostic Test 2022-05-20 glucose Shay Silvau niterika Pending 00:00:00 fingerstick, blood Hospital Clinics [code = glucose, fingerstick, blood] Diagnostic Test 2022-05-20 hemoglobin A1C, Shay Coelho mmunity Pending 00:00:00 fingerstick [code = Hospital Clinics hemoglobin A1C, fingerstick] Future Appointment 2022-08-11 Tati Radha, [facility] [place] Pending Sale To [facility] 09:00:00 Zoë Anders [facility] Clin[facility] [address]; [address], [place] [id number] Encounters Start End Encounter Admission Attending Care Care Encounter Source Date/Time Date/Time Type Type Clinicians Facility Department ID 2021-07-15 Outpatient Giorgio [facility] [id number] Common 12:23:22 Nichelle [id number] [facility] 2021-07[facility] [facility] [id number] Common 12:03:01 Nichelle [id number] [facility] 2021-07-15 Outpatient Giorgio [facility] [id number] Common 11:16:16 Nichelle [id number] [facility] 2022-05-22 2022-05-22 Outpatient [facility] [id number] [place] 00:00:00 00:00:00 1203 Commun i ty Hospita l Clinics 2022-05-20 2022-05-20 Outpatient [facility] [id number] [place] 00:00:00 00:00:00 1201 Commun i ty Hospita l Clinics 2022-05-20 2022-05-20 Tati [facility] [place] [id number] [place] 00:00:00 00:00:00 Iker Garcia MSN, E COMMERCE PROJECT MANAGER, Hospital - ty GROUP UNDERWRITER-C: [address] [place] [facility] [address], [facility] E, RadhaShay [place] MSN, GROUP UNDERWRITER-C [id number] , Ph. 2022-01-22 2022-01-22 Outpatient [facility] [id number] [place] 00:00:00 00:00:00 0805 Commun i ty Hospita l Clinics 2022-01-22 2022-01-22 Outpatient Radha [facility] [id number] 00:00:00 00:00:00 Tati [id number] 2022-01-22 2022-01-22 [facility] [place] 00:00:00 00:00:00 Iker Garcia uni MSN, E COMMERCE PROJECT MANAGER, Hospital - ty GROUP UNDERWRITER-C: [address] [place] Hospi [facility], Clinic s [address], Tati [address], Sh[place], [place] MSN, GROUP UNDERWRITER-C [id number] , Ph. 2022-01-05 2022-01-05 Outpatient [facility] [id number] [place] 05:39:00 05:39:00 0719 Commun i ty Hospita l [facility] 2022-01-05 2022-01-05 Outpatient Radha [facility] [id number] 00:00:00 00:00:00 Tati [id number] 2022-01-05 2022-01-05 [facility] [place] 00:00:00 00:00:00 Iker Garcia uni MSN, E COMMERCE PROJECT MANAGER, Hospital - ty GROUP UNDERWRITER-C: [address] [place] [facility] s [address], [facility] [address], Shay [place], [place] MSN, GROUP UNDERWRITER-C [id number] , Ph. 2021-12-29 2021-12-29 Outpatient [facility] 2021 [place] 10:22:00 10:22:00 0712 Commun i ty Hospita l Clinics 2021-09-22 2021-09-22 (TEL) [facility] [id number] Co mmon 00:00:00 00:00:00 [facility] 2021-08-10 2021-08-10 OFFICE [facility] [id number] Co mmon 00:00:00 00:00:00 VISIT EST Spir it PT LEVEL 3 - [facility] 2021-08-10 2021-08-10 (TEL) STLMLC ST[facility] [id number] Co mmon 00:00:00 00:00:00 [facility] 2021-08-10 2021-08-10 (TEL) STLMLC STLMLC [id number] Co mmon 00:00:00 00:00:00 [facility] 2021-08-07 2021-08-07 (TEL) STLMLC STLMLC [id number] Co mmon 00:00:00 00:00:00 [facility] 2021-05-01 2021-05-01 (TEL) STLMLC STL[facility] [id number] Co mmon 00:00:00 00:00:00 [facility] 2021-03-31 2021-03-31 OFFICE STLMLC STLMLC [id number] Co mmon 00:00:00 00:00:00 VISIT EST Spir it PT LEVEL 3 [facility] 2021-02-11 2021-02-11 OFFICE STLMLC ST[facility]C [id number] Co mmon 00:00:00 00:00:00 VISIT [facility] PT - [facility] LEVEL 2 [facility] 2020-07-09 2020-07-09 Outpatient [facility] [id number] Common 00:00:00 00:00:00 [facility] 2020-03-13 2020-03-13 Outpatient STLMLC ST[facility] [id number] Common 00:00:00 00:00:00 [facility] 2019-11-20 2019-11-20 [facility] [id number] Common 14:20:00 14:20:00 [facility] [address] [facility] 2019-11-19 2019-11-19 [facility] [id number] Common 11:47:00 11:47:00 [facility] [address] [facility] 2019-09-19 2019-09-19 [facility] [id number] Common 10:20:00 10:20:00 [facility] [address] [facility] 2019-09-17 2019-09-17 [id number] Common 09:17:00 09:17:00 [facility] [address] [facility] 2019-09-10 2019-09-10 [id number] Common 15:32:00 15:32:00 t [facility] [address] [facility] 2018-09-04 2018-09-04 [facility] [place] [id number] Common 15:00:00 15:00:00 t [facility] [address] [facility] Results Test Description Test Time Test Comments Results Result Comments Source Glucose [Mass/volume] in Capillary blood 2022-05-20 11:06:00 Test Item Value Reference Range Interpretation Comme nts Blood Glucose: mg/dl (test code = Blood Glucose: mg/dl) [facility] [id number] 00:00:00 Test Item Value Reference Range Interpretation Comments A1C (test code = 4548-4) 8.4 HEMOGLOBIN [id number] 00:00:00 Test Item Value Reference Range Interpretation Comments A1C (test code = 4548-4) 10.9
--- NOTE | 2022-06-15 13:48 | ER ---
Nurse's Notes [facility] Name[facility] Boyd [facility] Age: 57 yrs Sex: Male : 1965 Arrival Date: 06/15/2022 Time: 11:47 Bed Waiting Private MD: Diagnosis: Presentation: 06/15 11:54 Chief complaint: Patient states: Noticed open wound to Left outer foot on the 24. Has ll1 been treating it at home since. No fever. + diabetic. Pain radiates up leg. Coronavirus screen: Vaccine status: Patient reports being unvaccinated. Client denies travel out of the [place] in the last 14 days. At this time, the client does not indicate any symptoms associated with coronavirus-19. Ebola Screen: Patient denies travel to an Ebola-affected area in the 21 days before illness onset. Initial Sepsis Screen: Does the patient meet any 2 criteria? No. Patient's initial sepsis screen is negative. Does the patient have a suspected source of infection? Yes: Skin breakdown/wound. Risk Assessment: Do you want to hurt yourself or someone else? Patient reports no desire to harm self or others. Onset of symptoms was June 12, 2022. 11:54 Method Of Arrival: Ambulatory ll1 11:54 Acuity: LARISSA 3 ll1 Triage Assessment: 11:56 General: Appears in no apparent distress. Behavior is calm, cooperative, appropriate ll1 for age. Pain: Complains of pain in left foot Pain currently is 7 out of 10 on a pain scale. Quality of pain is described as aching. Derm: Reports open sore L lateral foot. Historical: - Allergies: 11:55 No Known Allergies; ll1 - PMHx: 11:55 Diabetes - NIDDM; Hypertensive disorder; ll1 - PSHx: 11:55 R knee SX; ll1 - Immunization history:: Client reports having NOT received the Covid vaccine. - Social history:: Smoking status: Patient denies any tobacco usage or history of. Assessment: 13:36 [facility] Unable to locate patient. Will attempt to ss call back again in a few moments. 13:46 Reassessment: called patient to exam room again. No answer. Unable to locate patient. ss Vital Signs: 11:54 BP 113 / 80; Pulse 88; Resp 18; Temp 98.2; Pulse Ox 99% ; Weight 111.13 kg; Height 5 ll1 ft. 9 in. (175.26 cm); Pain 7/10; 11:54 Body Mass Index 36.18 (111.13 kg, 175.26 cm) ll1 ED Course: 11:47 Patient arrived in ED. mr 11:55 Triage completed. ll1 11:56 Arm band placed on. ll1 13:48 Patient did not have IV access during this emergency room visit. ss Administered Medications: No medications were administered Outcome: 13:48 Eloped from waiting room, before seeing physician ss 13:48 unknown 13:48 Patient left the ED. ss Signatures: Halina Benavidez mr Griselda Harvey, RN RN Nano Goncalves RN RN 1
[2022-06-15 13:52] VITALS: BP 113/80; TEMP 98.2; O2SAT 99
== END 2022-06-15 13:48 | disposition left against medical advice (07) ==
LOC: ER 11:43
DX: Z02.9 Encounter for administrative examinations, unspecified (principal)

== ENCOUNTER 2023-02-03 21:09 | Emergency (ER) | payer OTHER, SELFPAY ==
--- OUTSIDE RECORDS SUMMARY | 2023-02-03 21:14 | XMS REPORT | Continuity of Care Document ---
:1965 Author Organization [facility] t Address [address] [place] [address] [address] [place] [address] Care Team Providers Name Role Phone NICHELLE QUEVEDO Primary Care Physician Unavailable Nichelle Quevedo Attending Clinician Unavailable GRACIE ALONSO Attending Clinician Unavailable Gracie Garcia Attending Clinician SOLE Attending Clinician Unavailable Tati Garcia Attending Clinician [phone] SOLE Admitting Clinician Unavailable Payers Payer Name Policy Type Policy Number Effective Date Expiration Date [facility] [id number] 2017 PPO/POS II 00:00:00 [facility] [id number] 2022 CHOICE (HMO) 00:00:00 Problems Condition Condition Condition Status Onset Resolution Last Treating Co mments Source Name Details Category Date Date Treatment Clinician Date Diabetes Diabetes Problem Active Sween y mellitus Mellitus 01-05 Commun i 00:00: ty [facility] Neuropathy Neuropathy Problem Active S weeny 01-05 Communi 00:00: ty 00 [facility] Hypertensi Hypertensi Problem Active S weeny ve ve 01-05 Communi disorder Disorder 00:00: ty 00 [facility]ospita Clin[facility] Gout Gout Problem Active [facility] [id number] Constipati Problem Active Com mon on, [facility]ipheral Peripheral Problem Active C ommon neuropathy neuropathy Sp khai - [facility] Hyperlipid Hyperlipid Problem Active C ommon emia emia [facility] [id number] Essential Problem Active Comm on hypertensi Spirit on - [facility] [id number] 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 - [facility] with [facility] polyneurop [facility] without long-term current use of insulin [id number] Slow Problem Active [facility] constipati - [facility] on [facility] Allergies, Adverse Reactions, Alerts Allergy Allergy Status Severity Reaction(s) Onset Inactive Treating Comm ents Source Name Type Date Date Clinician NO KNOWN Drug Active Univers ALLERGIE Class ity [facility] Social History Social Habit Start Date Stop Date Quantity Comments Source History of Tobacco [facility] Use [facility] Gender identity [facility] Sexual orientation [facility] Sex Assigned At [birth year] [facility] 00:00:00 00:00:00 [facility] Branch Smoking Status Start Date Stop Date Source Tobacco smoking consumption [facility] Never Smoker [facility] Medications Ordered Filled Start Stop Current Ordering Indication Dosage Frequency Signature Comments Components Source Medication Medication Date Date Medication? Clinician (SIG) Name Name Indomethaci Indomethaci 2021- No 1{capsu QD Indomethac n ER 75 MG n ER 75 MG 08-10 le_with in ER 75 00:00: 00:00 _food} MG 00 :00 Indomethaci Indomethaci 2- No 1{capsu QD Indomethac n ER 75 MG n ER 75 MG 08-10 le_with in ER 75 00:00: 00:00 _food} MG 00 :00 Indomethaci Indomethaci 0 2022- No 1{capsu QD Indomethac n ER 75 MG n ER 75 MG 08-10 le_with in ER 75 00:00: 00:00 _food} MG 00 :00 Indomethaci Indomethaci 0 2- No 1{capsu QD Indomethac n ER 75 MG n ER 75 MG 08-10 le_with in ER 75 00:00: 00:00 _food} MG 00 :00 Lactulose Lactulose 2021-0 2022- No 15{ml} QD Lactulose 10 GM/15ML 10 GM/15ML 08-10-22 10 GM/15ML 00:00: 00:00 00 :00 Lactulose Lactulose 2021-0 2022- No 15{ml} QD Lactulose 10 GM/15ML 10 GM/15ML 08-10-22 10 GM/15ML 00:00: 00:00 00 :00 Lactulose Lactulose 2021-0 2022- No 15{ml} QD Lactulose 10 GM/15ML 10 GM/15ML 08-10-22 10 GM/15ML 00:00: 00:00 00 :00 Lactulose Lactulose 2021-0 2022- No 15{ml} QD Lactulose 10 GM/15ML 10 GM/15ML 08-10-22 10 GM/15ML 00:00: 00:00 00 :00 Colchicine [...] t} 0.6 MG 00:00: 00:00 00 :00 meclizine 2018-0 Yes 25mg Take 1 Univer s 25 mg 8-17 tablet by ity of tablet 00:00: mouth [place] 00 every 6 Medical (six) Branch hours. ketorolac 2017- Yes 10mg Take 1 Univer s 10 mg 7-24 tablet by ity of tablet 00:00: mouth [place] 00 every 6 Medical (six) Branch hours as needed for Pain (scale 7-10). acetaminoph 2017- Yes 1{tbl} Take 1 Un breanne en-codeine 7-24 tablet by ity of (TYLENOL-CO 00:00: mouth [place] DEINE #4) 00 every 4 Medical 300-60 mg (four) Branch tablet hours as needed for Pain. Glimepiride Glimepiride Yes Nichelle 1 tablet [facility]- [facility] 00:00: - [facility] 00 [facility] Lisinopril Lisinopril 2018-0 No 1{table QD Lisinopril 20 MG 20 MG 3-02 t} 20 MG 00:00: 00 Fenofibrate Fenofibrate 2017-0 No 1{table QD Fenofibrat 160 MG 160 MG 3-02 t_with_ e 160 MG 00:00: food} 00 Glimepiride Glimepiride 2017-0 No Glimepirid 4 MG 4 MG 3-02 e 4 MG 00:00: 00 Lisinopril Lisinopril 2018-0 No 1{table QD Lisinopril 20 MG 20 MG 3-02 t} 20 MG 00:00: 00 Fenofibrate Fenofibrate 2018-0 No 1{table QD Fenofibrat 160 MG 160 MG 3-02 t_with_ e 160 MG 00:00: food} 00 Glimepiride Glimepiride 2017-0 No Glimepirid 4 MG 4 MG 3-02 e 4 MG 00:00: 00 Lisinopril Lisinopril 2018-0 No 1{table QD Lisinopril 20 MG 20 MG 3-02 t} 20 MG 00:00: 00 Fenofibrate Fenofibrate 2018-0 No 1{table QD Fenofibrat 160 MG 160 MG 3-02 t_with_ e 160 MG 00:00: food} 00 Glimepiride Glimepiride 2017- No Glimepirid 4 MG 4 MG 3-02 e 4 MG 00:00: 00 Fenofibrate Fenofibrate No 1{table QD Fenofibrat 160 MG 160 MG 3-02 t_with_ e 160 MG 00:00: food} 00 Lisinopril Lisinopril No 1{table QD Lisinopril 20 MG 20 MG 3-02 t} 20 MG 00:00: 00 Glimepiride Glimepiride No Glimepirid [...] t} 20 MG 00:00: 00 Glimepiride Glimepiride No Glimepirid [...] t} 600 MG 00:00: 00 Lisinopril Lisinopril 2018 No 1{table QD Lisinopril 20 MG 20 [...] t} 20 MG 00:00: 00 Gabapentin Gabapentin 2018- No 1{table TID Gabapentin 600 MG 600 MG 08-19 t} 600 MG 00:00: 00 Glimepiride Glimepiride No Glimepirid 4 MG 4 MG 3-02 e 4 MG 00:00: 00 Fenofibrate Fenofibrate No 1{table QD Fenofibrat 160 MG 160 MG 3- t_with_ e 160 MG 00:00: food} 00 Lisinopril Lisinopril No 1{table QD Lisinopril 20 MG 20 MG 3 t} 20 MG 00:00: 00 Thiamine Thiamine No Thiamine Vitamin D Vitamin [...] 50 MCG (1999) (1999 UT) (1999 [facility]) Vitamin C Vitamin C No [...] MCG le} 50 MCG (1999) (1999) (1999) predniSONE predniSONE No predniSONE 5 MG (48) 5 MG (48) 5 MG (48) Oxygen Oxygen No Oxygen concentrato concentrato concentrat r n/s r n/s or n/s Thiamine Thiamine No Thiamine metFORMIN metFORMIN No 1{table BID metFORMIN HCl 1000 MG HCl 1000 MG t_with_ HCl 1000 meals} MG allopurinol allopurinol No allopurino [facility] 100 mg 100 mg l 100 mg Communi tablet TAKE tablet TAKE tablet ty 1 TABLET BY 1 TABLET BY TAKE 1 Hospita MOUTH EVERY MOUTH EVERY TABLET BY l DAY DAY MOUTH Clinics EVERY DAY Vitamin C Vitamin C No 1{table QD Vitamin C 1000 MG 1000 MG t} 1000 MG aspirin 81 aspirin 81 No aspirin 81 [facility] mg daily mg daily mg daily Com julio cesar ty Hospita l Clinics Zinc 50 MG Zinc 50 MG No 1{table QD Zinc 50 MG t} atorvastati atorvastati No atorvastat Andrews n 40 mg n 40 mg in 40 mg Commu ni tablet TAKE tablet TAKE tablet ty 1 TABLET BY 1 TABLET BY TAKE 1 Hospita MOUTH MOUTH TABLET BY l EVERYDAY AT EVERYDAY AT MOUTH Clinics BEDTIME BEDTIME EVERYDAY AT BEDTIME Eliquis 5 Eliquis 5 No Eliquis 5 mg 5 mg mg 5 mg mg 5 mg Vitamin D Vitamin D No 1{capsu QD Vitamin D 50 MCG 50 MCG le} 50 MCG (1999) (1999) (1999) Bactrim DS Bactrim DS No 1 Q12H Bactrim DS [facility] 800 mg-160 800 mg-160 800 mg-160 Communi mg tablet mg tablet mg tablet ty Take 1 Take 1 Take 1 Hospita tablet tablet tablet l every 12 every 12 every 12 Cli nics hours by hours by hours by oral route oral route oral route for 10 for 10 for 10 days. days. days. Oxygen Oxygen No Oxygen concentrato concentrato concentrat r n/s r n/s or n/s cholecalcif cholecalcif No cholecalci [facility] sangita vaughn Communi (vitamin (vitamin (vitamin ty D3) 1,250 D3) 1,250 D3) 1,250 Hospita mcg (50,000 mcg (50,000 mcg l unit) unit) (50,000 Clinics capsule capsule unit) TAKE 1 TAKE 1 capsule CAPSULE BY CAPSULE BY TAKE 1 MOUTH EVERY MOUTH EVERY CAPSULE BY WEEK FOR 84 WEEK FOR 84 MOUTH DAYS DAYS EVERY WEEK FOR 84 DAYS Zinc 50 MG Zinc 50 MG No 1{table QD Zinc 50 MG t} gabapentin gabapentin No 1 TID gabapentin [facility] 600 mg 600 mg 600 mg Communi tablet Take tablet Take tablet ty 1 tablet 3 1 tablet 3 Take 1 H ospita times a day times a day tablet 3 l by oral by oral times a Clinic s route for route for day by 90 days. 90 days. oral route for 90 days. Thiamine Thiamine No Thiamine glimepiride glimepiride No glimepirid [facility] 4 mg tablet 4 mg tablet e 4 mg Communi TAKE 1 TAKE 1 tablet ty TABLET BY TABLET BY TAKE 1 Hos elli MOUTH TWICE MOUTH TWICE TABLET BY l DAILY WITH DAILY WITH MOUTH Cl inics MEALS MEALS TWICE DAILY WITH MEALS predniSONE predniSONE No predniSONE 5 MG (48) 5 MG (48) 5 MG (48) Vitamin C Vitamin C No 1{table QD Vitamin C 1000 MG 1000 MG t} 1000 MG indomethaci indomethaci No indomethac Andrews n 25 mg n 25 mg in 25 mg Commu ni capsule capsule capsule ty TAKE 1 TAKE 1 TAKE 1 Hospita CAPSULE BY CAPSULE BY CAPSULE BY l MOUTH 3 MOUTH 3 MOUTH 3 Clinic s TIMES A DAY TIMES A DAY TIMES A NEEDED NEEDED DAY FOR GOUT FOR GOUT NEEDED FOR PAIN PAIN GOUT PAIN Eliquis 5 Eliquis 5 No Eliquis 5 mg 5 mg mg 5 mg mg 5 mg lactulose lactulose No lactulose Andrews 10 gram/15 10 gram/15 10 gram/15 Communi mL oral mL oral mL oral ty solution solution solution Hos elli TAKE 15 ML TAKE 15 ML TAKE 15 ML l BY MOUTH BY MOUTH BY MOUTH Cli nics ONCE DAILY ONCE DAILY ONCE DAILY metFORMIN metFORMIN No 1{table BID metFORMIN HCl 1000 MG HCl 1000 MG t_with_ HCl 1000 meals} MG lisinopril lisinopril No 1 Q1D lisinopril [facility] 10 mg 10 mg 10 mg Communi tablet Take tablet Take tablet ty 1 tablet 1 tablet Take 1 Hospi ta every day every day tablet l by oral by oral every day Clin ics route. route. by oral route. Eliquis 5 Eliquis 5 No Eliquis 5 mg 5 mg mg 5 mg mg 5 mg metFORMIN metFORMIN No 1{table BID metFORMIN HCl 1000 MG HCl 1000 MG t_with_ HCl 1000 meals} MG metformin metformin No metformin [facility] 1,000 mg 1,000 mg 1,000 mg Com julio cesar tablet TAKE tablet TAKE tablet ty 1 TABLET BY 1 TABLET BY TAKE 1 Hospita MOUTH TWICE MOUTH TWICE TABLET BY l DAILY WITH DAILY WITH MOUTH Cl inics FOOD FOOD TWICE DAILY WITH FOOD Thiamine Thiamine No Thiamine Mounjaro 5 Mounjaro 5 No Mounjaro 5 Andrews mg/0.5 mL mg/0.5 mL mg/0.5 mL Communi subcutaneou subcutaneou subcutaneo ty s pen s pen us pen Hospita injector injector injector l INJECT 5MG INJECT 5MG INJECT 5MG Clinics UNDER THE UNDER THE UNDER THE SKIN ONCE SKIN ONCE SKIN ONCE WEEKLY. WEEKLY. WEEKLY. Vitamin D Vitamin D No 1{capsu QD Vitamin D 50 MCG 50 MCG le} 50 MCG (1999 UT) (1999 UT) (1999) Skintegrity Skintegrity No 1applic Q1D Skintegrit [facility] Skin cream Skin cream ation(s y Skin Communi Apply 1 Apply 1 ) cream ty application application Apply 1 Hospita every day every day applicatio l by topical by topical n every Clinics route for route for day by 15 days. 15 days. topical route for 15 days. Vitamin C Vitamin C No 1{table QD Vitamin C 1000 MG 1000 MG t} 1000 MG testosteron testosteron No testostero Andrews e cypionate e cypionate ne C ommuni 200 mg/mL 200 mg/mL cypionate ty intramuscul intramuscul 200 mg/mL Hospita ar oil ar oil intramuscu l INJECT 0.5 INJECT 0.5 lar oil Clinics ML (100 MG) ML (100 MG) INJECT 0.5 EVERY 2 EVERY 2 ML (100 WEEKS BY WEEKS BY MG) EVERY INTRAMUSCUL INTRAMUSCUL 2 WEEKS BY AR ROUTE. AR ROUTE. INTRAMUSCU LAR ROUTE. predniSONE predniSONE No predniSONE 5 MG (48) 5 MG (48) 5 MG (48) Triple Triple No .25g Q1D Triple [facility] [place] [facility] [facility] Collagen Collagen Collagen ty 100 % 100 % 100 % Hospita topical topical topical l powder in powder in powder in Clinics packet packet packet Apply 0.25 Apply 0.25 Apply 0.25 g every day g every day g every by topical by topical day by route for route for topical 15 days. 15 days. route for 15 days. Zinc 50 MG Zinc 50 MG No 1{table QD Zinc 50 MG t} Oxygen Oxygen No Oxygen concentrato concentrato concentrat r n/s r n/s or n/s allopurinol allopurinol No allopurino [facility] 100 mg 100 mg l 100 mg Communi tablet TAKE tablet TAKE tablet ty 1 TABLET BY 1 TABLET BY TAKE 1 Hospita MOUTH EVERY MOUTH EVERY TABLET BY l DAY DAY MOUTH Clinics EVERY DAY aspirin 81 aspirin 81 No aspirin 81 [facility] mg daily mg daily mg daily Com julio cesar ty Hospita l Clinics atorvastati atorvastati No atorvastat Andrews n 40 mg n 40 mg in 40 mg Commu ni tablet TAKE tablet TAKE tablet ty 1 TABLET BY 1 TABLET BY TAKE 1 Hospita MOUTH MOUTH TABLET BY l EVERYDAY AT EVERYDAY AT MOUTH Clinics BEDTIME BEDTIME EVERYDAY AT BEDTIME cholecalcif cholecalcif No cholecalci [facility] sangita sangita ferol Communi (vitamin (vitamin (vitamin [...] DAYS gabapentin gabapentin No 1 TID gabapentin [facility] 600 mg 600 mg 600 mg Communi tablet Take tablet Take tablet ty 1 tablet 3 1 tablet 3 Take 1 H ospita times a day times a day tablet 3 l by oral by oral times a Clinic s route for route for day by 90 days. 90 days. oral route for 90 days. glimepiride glimepiride No glimepirid [facility] 4 mg tablet 4 mg tablet e 4 mg Communi TAKE 1 TAKE 1 tablet ty TABLET BY TABLET BY TAKE 1 Hos elli MOUTH TWICE MOUTH TWICE TABLET BY l DAILY WITH DAILY WITH MOUTH Cl inics MEALS MEALS TWICE DAILY WITH MEALS indomethaci indomethaci No indomethac Andrews n 25 mg n 25 mg in 25 mg Commu ni capsule capsule capsule ty TAKE 1 TAKE 1 TAKE 1 Hospita CAPSULE BY CAPSULE BY CAPSULE BY l MOUTH 3 MOUTH 3 MOUTH 3 Clinic s TIMES A DAY TIMES A DAY TIMES A NEEDED NEEDED DAY FOR GOUT FOR GOUT NEEDED FOR PAIN PAIN GOUT PAIN lactulose lactulose No lactulose Andrews 10 gram/15 10 gram/15 10 gram/15 Communi mL oral mL oral mL oral ty solution solution solution Hos elli TAKE 15 ML TAKE 15 ML TAKE 15 ML l BY MOUTH BY MOUTH BY MOUTH Cli nics ONCE DAILY ONCE DAILY ONCE DAILY lisinopril lisinopril No 1 Q1D lisinopril Andrews 10 mg 10 mg 10 mg Communi tablet Take tablet Take tablet ty 1 tablet 1 tablet Take 1 Hospi ta every day every day tablet l by oral by oral every day Clin ics route. route. by oral route. metformin metformin No metformin [facility] 1,000 mg 1,000 mg 1,000 mg Com julio cesar tablet TAKE tablet TAKE tablet ty 1 TABLET BY 1 TABLET BY TAKE 1 Hospita MOUTH TWICE MOUTH TWICE TABLET BY l DAILY WITH DAILY WITH MOUTH Cl inics FOOD FOOD TWICE DAILY WITH FOOD Mounjaro 5 Mounjaro 5 No Mounjaro 5 Andrews mg/0.5 mL mg/0.5 mL mg/0.5 mL Communi subcutaneou subcutaneou subcutaneo ty s pen s pen us pen Hospita injector injector injector l INJECT 5MG INJECT 5MG INJECT 5MG Clinics UNDER THE UNDER THE UNDER THE SKIN ONCE SKIN ONCE SKIN ONCE WEEKLY. WEEKLY. WEEKLY. Skintegrity Skintegrity No 1applic Q1D Skintegrit [facility] Skin cream Skin cream ation(s y Skin Communi Apply 1 Apply 1 ) cream ty application application Apply 1 Hospita every day every day applicatio l by topical by topical n every Clinics route for route for day by 15 days. 15 days. topical route for 15 days. sulfamethox sulfamethox No sulfametho [facility] azole 800 azole 800 xazole 800 Communi mg-trimetho mg-trimetho mg-trimeth ty prim 160 mg prim 160 mg oprim 160 Hospita tablet TAKE tablet TAKE mg tablet l 1 TABLET BY 1 TABLET BY TAKE 1 Clinics MOUTH EVERY MOUTH EVERY TABLET BY 12 HOURS 12 HOURS MOUTH FOR 10 DAYS FOR 10 DAYS EVERY 12 HOURS FOR 10 DAYS testosteron testosteron No testostero Andrews e cypionate e cypionate ne C ommuni 200 mg/mL 200 mg/mL cypionate ty intramuscul intramuscul 200 mg/mL Hospita ar oil ar oil intramuscu l INJECT 0.5 INJECT 0.5 lar oil Clinics ML (100 MG) ML (100 MG) INJECT 0.5 EVERY 2 EVERY 2 ML (100 WEEKS BY WEEKS BY MG) EVERY INTRAMUSCUL INTRAMUSCUL 2 WEEKS BY AR ROUTE. AR ROUTE. INTRAMUSCU LAR ROUTE. Triple Triple No .25g Q1D Triple [facility] [place] [facility] Collagen Collagen Collagen ty 100 % 100 % 100 % Hospita topical topical topical l powder in powder in powder in Clinics packet packet packet Apply 0.25 Apply 0.25 Apply 0.25 g every day g every day g every by topical by topical day by route for route for topical 15 days. 15 days. route for 15 days. allopurinol allopurinol No allopurino [facility] 100 mg 100 mg l 100 mg Communi tablet TAKE tablet TAKE tablet ty 1 TABLET BY 1 TABLET BY TAKE 1 Hospita MOUTH EVERY MOUTH EVERY TABLET BY l DAY DAY MOUTH Clinics EVERY DAY aspirin 81 aspirin 81 No aspirin 81 [facility] mg daily mg daily mg daily Com julio cesar ty Hospita l Clinics atorvastati atorvastati No atorvastat Andrews n 40 mg n 40 mg in 40 mg Commu ni tablet TAKE tablet TAKE tablet ty 1 TABLET BY 1 TABLET BY TAKE 1 Hospita MOUTH MOUTH TABLET BY l EVERYDAY AT EVERYDAY AT MOUTH Clinics BEDTIME BEDTIME EVERYDAY AT BEDTIME cholecalcif cholecalcif No cholecalci [facility] sangita sangita ferol Communi (vitamin (vitamin (vitamin ty D3) 1,250 D3) 1,250 D3) 1,250 Hospita mcg (50,000 mcg (50,000 mcg l unit) unit) (50,000 Clinics capsule capsule unit) TAKE 1 TAKE 1 capsule CAPSULE BY CAPSULE BY TAKE 1 MOUTH EVERY MOUTH EVERY CAPSULE BY WEEK FOR 84 WEEK FOR 84 MOUTH DAYS DAYS EVERY WEEK FOR 84 DAYS clindamycin clindamycin No 1capsul Q6H clindamyci [facility] HCl 300 mg HCl 300 mg e(s) n HCl 300 Communi capsule capsule mg capsule ty Take 1 Take 1 Take 1 Hospita capsule capsule capsule l every 6 every 6 every 6 Clinic s hours by hours by hours by oral route oral route oral route for 10 for 10 for 10 days. days. days. gabapentin gabapentin No 1 TID gabapentin [facility] 600 mg 600 mg 600 mg Communi tablet Take tablet Take tablet ty 1 tablet 3 1 tablet 3 Take 1 H ospita times a day times a day tablet 3 l by oral by oral times a Clinic s route for route for day by 90 days. 90 days. oral route for 90 days. glimepiride glimepiride No glimepirid [facility] 4 mg tablet 4 mg tablet e 4 mg Communi TAKE 1 TAKE 1 tablet ty TABLET BY TABLET BY TAKE 1 Hos elli MOUTH TWICE MOUTH TWICE TABLET BY l DAILY WITH DAILY WITH MOUTH Cl inics MEALS MEALS TWICE DAILY WITH MEALS indomethaci indomethaci No indomethac Andrews n 25 mg n 25 mg in 25 mg Commu ni capsule capsule capsule ty TAKE 1 TAKE 1 TAKE 1 Hospita CAPSULE BY CAPSULE BY CAPSULE BY l MOUTH 3 MOUTH 3 MOUTH 3 Clinic s TIMES A DAY TIMES A DAY TIMES A NEEDED NEEDED DAY FOR GOUT FOR GOUT NEEDED FOR PAIN PAIN GOUT PAIN lactulose lactulose No lactulose Andrews 10 gram/15 10 gram/15 10 gram/15 Communi mL oral mL oral mL oral ty solution solution solution Hos elli TAKE 15 ML TAKE 15 ML TAKE 15 ML l BY MOUTH BY MOUTH BY MOUTH Cli nics ONCE DAILY ONCE DAILY ONCE DAILY Linzess 72 Linzess 72 No 1capsul Q1D Linzess 72 Andrews mcg capsule mcg capsule e(s) mcg C ommuni Take 1 Take 1 capsule ty capsule capsule Take 1 Hospita every day every day capsule l by oral by oral every day Clin ics route for route for by oral 30 days. 30 days. route for 30 days. lisinopril lisinopril No 1 Q1D lisinopril [facility] 10 mg 10 mg 10 mg Communi tablet Take tablet Take tablet ty 1 tablet 1 tablet Take 1 Hospi ta every day every day tablet l by oral by oral every day Clin ics route. route. by oral route. metformin metformin No metformin [facility] 1,000 mg 1,000 mg 1,000 mg Com julio cesar tablet TAKE tablet TAKE tablet ty 1 TABLET BY 1 TABLET BY TAKE 1 Hospita MOUTH TWICE MOUTH TWICE TABLET BY l DAILY WITH DAILY WITH MOUTH Cl inics FOOD FOOD TWICE DAILY WITH FOOD Mounjaro 5 Mounjaro 5 No Mounjaro 5 Andrews mg/0.5 mL mg/0.5 mL mg/0.5 mL Communi subcutaneou subcutaneou subcutaneo ty s pen s pen us pen Hospita injector injector injector l INJECT 5MG INJECT 5MG INJECT 5MG Clinics UNDER THE UNDER THE UNDER THE SKIN ONCE SKIN ONCE SKIN ONCE WEEKLY. WEEKLY. WEEKLY. Ozempic Ozempic No Ozempic Andrews 0.25 mg or 0.25 mg or 0.25 mg or Communi 0.5 mg (2 0.5 mg (2 0.5 mg (2 ty mg/1.5 mL) mg/1.5 mL) mg/1.5 mL) Hospita subcutaneou subcutaneou subcutaneo l s pen s pen us pen Clinics injector injector injector Start: 0.25 Start: 0.25 Start: mg SC qwk mg SC qwk 0.25 mg SC x4wk, then x4wk, then qwk x4wk, incr. to incr. to then incr. 0.5 mg SC 0.5 mg SC to 0.5 mg qwk, then qwk, then SC qwk, may incr. may incr. then may to 1 mg SC to 1 mg SC incr. to 1 qwk after qwk after mg SC qwk at least at least after at 4wk 4wk least 4wk Skintegrity Skintegrity No 1applic Q1D Skintegrit [facility] Skin cream Skin cream ation(s y Skin Communi Apply 1 Apply 1 ) cream ty application application Apply 1 Hospita every day every day applicatio l by topical by topical n every Clinics route for route for day by 15 days. 15 days. topical route for 15 days. sulfamethox sulfamethox No sulfametho [facility] azole 800 azole 800 xazole 800 Communi mg-trimetho mg-trimetho mg-trimeth ty prim 160 mg prim 160 mg oprim 160 Hospita tablet TAKE tablet TAKE mg tablet l 1 TABLET BY 1 TABLET BY TAKE 1 Clinics MOUTH EVERY MOUTH EVERY TABLET BY 12 HOURS 12 HOURS MOUTH FOR 10 DAYS FOR 10 DAYS EVERY 12 HOURS FOR 10 DAYS testosteron testosteron No testostero [facility] e cypionate e cypionate ne C ommuni 200 mg/mL 200 mg/mL cypionate ty intramuscul intramuscul 200 mg/mL Hospita ar oil ar oil intramuscu l INJECT 0.5 INJECT 0.5 lar oil Clinics ML (100 MG) ML (100 MG) INJECT 0.5 EVERY 2 EVERY 2 ML (100 WEEKS BY WEEKS BY MG) EVERY INTRAMUSCUL INTRAMUSCUL 2 WEEKS BY AR ROUTE. AR ROUTE. INTRAMUSCU LAR ROUTE. Triple Triple No .25g Q1D Triple [facility] [place] [facility] [facility] [facility] Collagen Collagen Collagen ty 100 % 100 % 100 % [facility] topical topical topical l powder in powder in powder in Clinics packet packet packet Apply 0.25 Apply 0.25 Apply 0.25 g every day g every day g every by topical by topical day by route for route for topical 15 days. 15 days. route for 15 days. albuterol albuterol No albuterol [facility] sulfate HFA sulfate HFA sulfate Communi 90 90 HFA 90 ty mcg/actuati mcg/actuati mcg/actuat [facility] on aerosol on aerosol ion l inhaler inhaler aerosol Clinic s INHALE 3 INHALE 3 inhaler PUFFS FOUR PUFFS FOUR INHALE 3 TIMES DAILY TIMES DAILY PUFFS FOUR NEEDED NEEDED TIMES FOR FOR DAILY WHEEZING . WHEEZING . NEEDED FOR USE WITH USE WITH WHEEZING . SPACER SPACER USE WITH SPACER allopurinol allopurinol No allopurino [facility] 100 mg 100 mg l 100 mg Communi tablet TAKE tablet TAKE tablet ty 1 TABLET BY 1 TABLET BY TAKE 1 Hospita MOUTH EVERY MOUTH EVERY TABLET BY l DAY DAY MOUTH Clinics EVERY DAY aspirin 81 aspirin 81 No aspirin 81 Andrews mg daily mg daily mg daily Com julio cesar ty Hospita l Clinics atorvastati atorvastati No atorvastat Andrews n 40 mg n 40 mg in 40 mg Commu ni tablet TAKE tablet TAKE tablet ty 1 TABLET BY 1 TABLET BY TAKE 1 Hospita MOUTH MOUTH TABLET BY l EVERYDAY AT EVERYDAY AT MOUTH Clinics BEDTIME BEDTIME EVERYDAY AT BEDTIME azithromyci azithromyci No azithromyc Andrews n 250 mg n 250 mg in 250 mg Co mmuni tablet TAKE tablet TAKE tablet ty 2 TABLETS 2 TABLETS TAKE 2 Hos elli BY MOUTH BY MOUTH TABLETS BY l EVERY DAY EVERY DAY MOUTH Clin ics FOR 1 DAY FOR 1 DAY EVERY DAY THEN TAKE 1 THEN TAKE 1 FOR 1 DAY TABLET BY TABLET BY THEN TAKE MOUTH EVERY MOUTH EVERY 1 TABLET DAY FOR 4 DAY FOR 4 BY MOUTH DAYS DAYS EVERY DAY FOR 4 DAYS Bactrim DS Bactrim DS No 1 Q12H Bactrim DS [facility] 800 mg-160 800 mg-160 800 mg-160 Communi mg tablet mg tablet mg tablet ty Take 1 Take 1 Take 1 Hospita tablet tablet tablet l every 12 every 12 every 12 Cli nics hours by hours by hours by oral route oral route oral route for 10 for 10 for 10 days. days. days. cholecalcif cholecalcif No cholecalci [facility] sangita sangita ferol Communi (vitamin (vitamin (vitamin ty D3) 1,250 D3) 1,250 D3) 1,250 Hospita mcg (50,000 mcg (50,000 mcg l unit) unit) (50,000 Clinics capsule capsule unit) TAKE 1 TAKE 1 capsule CAPSULE BY CAPSULE BY TAKE 1 MOUTH EVERY MOUTH EVERY CAPSULE BY WEEK FOR 84 WEEK FOR 84 MOUTH DAYS DAYS EVERY WEEK FOR 84 DAYS clindamycin clindamycin No 1capsul Q6H clindamyci [facility] HCl 300 mg HCl 300 mg e(s) n HCl 300 Communi capsule capsule mg capsule ty Take 1 Take 1 Take 1 Hospita capsule capsule capsule l every 6 every 6 every 6 Clinic s hours by hours by hours by oral route oral route oral route for 10 for 10 for 10 days. days. days. gabapentin gabapentin No 1 TID gabapentin [facility] 600 mg 600 mg 600 mg Communi tablet Take tablet Take tablet ty 1 tablet 3 1 tablet 3 Take 1 H ospita times a day times a day tablet 3 l by oral by oral times a Clinic s route for route for day by 90 days. 90 days. oral route for 90 days. glimepiride glimepiride No glimepirid [facility] 4 mg tablet 4 mg tablet e 4 mg Communi TAKE 1 TAKE 1 tablet ty TABLET BY TABLET BY TAKE 1 Hos elli MOUTH TWICE MOUTH TWICE TABLET BY l DAILY WITH DAILY WITH MOUTH Cl inics MEALS MEALS TWICE DAILY WITH MEALS indomethaci indomethaci No indomethac Andrews n 25 mg n 25 mg in 25 mg Commu ni capsule capsule capsule ty TAKE 1 TAKE 1 TAKE 1 Hospita CAPSULE BY CAPSULE BY CAPSULE BY l MOUTH 3 MOUTH 3 MOUTH 3 Clinic s TIMES A DAY TIMES A DAY TIMES A NEEDED NEEDED DAY FOR GOUT FOR GOUT NEEDED FOR PAIN PAIN GOUT PAIN lactulose lactulose No lactulose Andrews 10 gram/15 10 gram/15 10 gram/15 Communi mL oral mL oral mL oral ty solution solution solution Hos elli TAKE 15 ML TAKE 15 ML TAKE 15 ML l BY MOUTH BY MOUTH BY MOUTH Cli nics ONCE DAILY ONCE DAILY ONCE DAILY Linzess 72 Linzess 72 No 1capsul Q1D Linzess 72 Andrews mcg capsule mcg capsule e(s) mcg C ommuni Take 1 Take 1 capsule ty capsule capsule Take 1 Hospita every day every day capsule l by oral by oral every day Clin ics route for route for by oral 30 days. 30 days. route for 30 days. lisinopril lisinopril No 1 Q1D lisinopril [facility] 10 mg 10 mg 10 mg Communi tablet Take tablet Take tablet ty 1 tablet 1 tablet Take 1 Hospi ta every day every day tablet l by oral by oral every day Clin ics route. route. by oral route. metformin metformin No metformin [facility] 1,000 mg 1,000 mg 1,000 mg Com julio cesar tablet TAKE tablet TAKE tablet ty 1 TABLET BY 1 TABLET BY TAKE 1 Hospita MOUTH TWICE MOUTH TWICE TABLET BY l DAILY WITH DAILY WITH MOUTH Cl inics FOOD FOOD TWICE DAILY WITH FOOD methylpredn methylpredn No methylpred Andrews isolone 4 isolone 4 nisolone 4 Communi mg tablets mg tablets mg tablets ty in a dose in a dose in a dose Hospita pack TAKE 1 pack TAKE 1 pack TAKE l TABLET BY TABLET BY 1 TABLET C linics MOUTH EVERY MOUTH EVERY BY MOUTH DAY FOR 6 DAY FOR 6 EVERY DAY DAYS DAYS FOR 6 DAYS DIRECTED ON DIRECTED ON PACKAGE PACKAGE DIRECTED ON PACKAGE Rybelsus 7 Rybelsus 7 No 1 Q1D Rybelsus 7 Andrews mg tablet mg tablet mg tablet Communi Take 1 Take 1 Take 1 ty tablet tablet tablet Hospita every day every day every day l by oral by oral by oral Clinic s route for route for route for 84 days. 84 days. 84 days. Skintegrity Skintegrity No 1applic Q1D Skintegrit [facility] Skin cream Skin cream ation(s y Skin Communi Apply 1 Apply 1 ) cream ty application application Apply 1 Hospita every day every day applicatio l by topical by topical n every Clinics route for route for day by 15 days. 15 days. topical route for 15 days. testosteron testosteron No testostero Andrews e cypionate e cypionate ne C ommuni 200 mg/mL 200 mg/mL cypionate ty intramuscul intramuscul 200 mg/mL Hospita ar oil ar oil intramuscu l INJECT 0.5 INJECT 0.5 lar oil [facility] ML (100 MG) ML (100 MG) INJECT 0.5 EVERY 2 EVERY 2 ML (100 WEEKS BY WEEKS BY MG) EVERY INTRAMUSCUL INTRAMUSCUL 2 WEEKS BY AR ROUTE. AR ROUTE. INTRAMUSCU LAR ROUTE. Triple Triple No .25g Q1D Triple [facility] [place] [facility] Collagen Collagen Collagen ty 100 % 100 % 100 % Hospita topical topical topical l powder in powder in powder in Clinics packet packet packet Apply 0.25 Apply 0.25 Apply 0.25 g every day g every day g every by topical by topical day by route for route for topical 15 days. 15 days. route for 15 days. Trulance 3 Trulance 3 No Trulance 3 [facility] mg tablet mg tablet mg tablet Communi TAKE 1 TAKE 1 TAKE 1 ty TABLET BY TABLET BY TABLET BY Hospita MOUTH EVERY MOUTH EVERY MOUTH l DAY DAY EVERY DAY Clinics gabapentin gabapentin No 1 TID gabapentin [facility] 600 mg 600 mg 600 mg Communi tablet Take tablet Take tablet ty 1 tablet 3 1 tablet 3 Take 1 H ospita times a day times a day tablet 3 l by oral by oral times a Clinic s route for route for day by 90 days. 90 days. oral route for 90 days. glimepiride glimepiride No glimepirid [facility] 4 mg tablet 4 mg tablet e 4 mg Communi TAKE 1 TAKE 1 tablet ty TABLET BY TABLET BY TAKE 1 Hos elli MOUTH TWICE MOUTH TWICE TABLET BY l DAILY WITH DAILY WITH MOUTH Cl inics MEALS MEALS TWICE DAILY WITH MEALS indomethaci indomethaci No indomethac [facility] n ER 75 mg n ER 75 mg in ER 75 Communi capsule,ext capsule,ext mg t y ended ended capsule,ex Hospita release release tended l TAKE 1 TAKE 1 release Clinics CAPSULE BY CAPSULE BY TAKE 1 MOUTH WITH MOUTH WITH CAPSULE BY FOOD ONCE FOOD ONCE MOUTH WITH DAILY DAILY FOOD ONCE DAILY lactulose lactulose No 15mL Q1D lactulose Andrews 10 gram/15 10 gram/15 10 gram/15 Communi [...] days. lisinopril lisinopril No 1 Q1D lisinopril [facility] 10 mg 10 mg 10 mg Communi tablet Take tablet Take tablet ty 1 tablet 1 tablet Take 1 Hospi ta every day every day tablet l by oral by oral every day Clin ics route. route. by oral route. metformin metformin No metformin [facility] 1,000 mg 1,000 mg 1,000 mg Com julio cesar tablet TAKE tablet TAKE tablet ty 1 TABLET BY 1 TABLET BY TAKE 1 Hospita MOUTH TWICE MOUTH TWICE TABLET BY l DAILY WITH DAILY WITH MOUTH Cl inics FOOD FOOD TWICE DAILY WITH FOOD aspirin 81 aspirin 81 No aspirin 81 [facility] mg daily mg daily mg daily Com julio cesar ty Hospita l Clinics atorvastati atorvastati No 1 Q1D atorvastat Andrews n 40 mg n 40 mg in [...] days. cholecalcif cholecalcif No 1capsul Q1W cholecalci Andrews sangita sangita e(s) ferol Communi (vitamin (vitamin [...] days. gabapentin gabapentin No 1 TID gabapentin [facility] 600 mg 600 mg 600 mg Communi tablet Take tablet Take tablet ty 1 tablet 3 1 tablet 3 Take 1 H ospita times a day times a day tablet 3 l by oral by oral times a Clinic s route for route for day by 90 days. 90 days. oral route for 90 days. glimepiride glimepiride No glimepirid [facility] 4 mg tablet 4 mg tablet e 4 mg Communi TAKE 1 TAKE 1 tablet ty TABLET BY TABLET BY TAKE 1 Hos elli MOUTH TWICE MOUTH TWICE TABLET BY l DAILY WITH DAILY WITH MOUTH Cl inics MEALS MEALS TWICE DAILY WITH MEALS lisinopril lisinopril No 1 Q1D lisinopril [facility] 10 mg 10 mg 10 mg Communi tablet Take tablet Take tablet ty 1 tablet 1 tablet Take 1 Hospi ta every day every day tablet l by oral by oral every day Clin ics route. route. by oral route. metformin metformin No metformin [facility] 1,000 mg 1,000 mg 1,000 mg Com julio cesar tablet TAKE tablet TAKE tablet ty 1 TABLET BY 1 TABLET BY TAKE 1 Hospita MOUTH TWICE MOUTH TWICE TABLET BY l DAILY WITH DAILY WITH MOUTH Cl inics FOOD FOOD TWICE DAILY WITH FOOD testosteron testosteron No 100mg Q2W testostero Andrews e cypionate e cypionate ne C ommuni [...] aspirin 81 aspirin 81 No aspirin 81 [facility] mg daily mg daily mg daily Com julio cesar ty Hospita l Clinics atorvastati atorvastati No atorvastat Andrews n 40 mg n 40 mg in 40 mg Commu ni tablet TAKE tablet TAKE tablet ty 1 TABLET BY 1 TABLET BY TAKE 1 Hospita MOUTH MOUTH TABLET BY l EVERYDAY AT EVERYDAY AT MOUTH Clinics BEDTIME BEDTIME EVERYDAY AT BEDTIME cholecalcif cholecalcif No cholecalci Andrews sangita sangita ferol Gabii (vitamin (vitamin (vitamin ty D3) 1,250 D3) 1,250 D3) 1,250 Hospita mcg (50,000 mcg (50,000 mcg l unit) unit) (50,000 Clinics capsule capsule unit) TAKE 1 TAKE 1 capsule CAPSULE BY CAPSULE BY TAKE 1 MOUTH EVERY MOUTH EVERY CAPSULE BY WEEK FOR 84 WEEK FOR 84 MOUTH DAYS DAYS EVERY WEEK FOR 84 DAYS gabapentin gabapentin No 1 TID gabapentin [facility] 600 mg 600 mg 600 mg Communi tablet Take tablet Take tablet ty 1 tablet 3 1 tablet 3 Take 1 H ospita times a day times a day tablet 3 l by oral by oral times a Clinic s route for route for day by 90 days. 90 days. oral route for 90 days. glimepiride glimepiride No glimepirid [facility] 4 mg tablet 4 mg tablet e 4 mg Communi TAKE 1 TAKE 1 tablet ty TABLET BY TABLET BY TAKE 1 Hos elli MOUTH TWICE MOUTH TWICE TABLET BY l DAILY WITH DAILY WITH MOUTH Cl inics MEALS MEALS TWICE DAILY WITH MEALS lactulose lactulose No lactulose [facility] 10 gram/15 10 gram/15 10 gram/15 Communi mL oral mL oral mL oral ty solution solution solution Hos elli TAKE 15 ML TAKE 15 ML TAKE 15 ML l BY MOUTH BY MOUTH BY MOUTH Cli nics ONCE DAILY ONCE DAILY ONCE DAILY lisinopril lisinopril No 1 Q1D lisinopril [facility] 10 mg 10 mg 10 mg Communi tablet Take tablet Take tablet ty 1 tablet 1 tablet Take 1 Hospi ta every day every day tablet l by oral by oral every day Clin ics route. route. by oral route. metformin metformin No metformin [facility] 1,000 mg 1,000 mg 1,000 mg Com julio cesar tablet TAKE tablet TAKE tablet ty 1 TABLET BY 1 TABLET BY TAKE 1 Hospita MOUTH TWICE MOUTH TWICE TABLET BY l DAILY WITH DAILY WITH MOUTH Cl inics FOOD FOOD TWICE DAILY WITH FOOD Mounjaro 5 Mounjaro 5 No 5mg Q1W Mounjaro 5 Andrews mg/0.5 mL mg/0.5 mL mg/0.5 mL Communi subcutaneou subcutaneou subcutaneo ty s pen s pen us pen Hospita injector injector injector l Inject 5 mg Inject 5 mg Inject 5 Clinics every week every week mg every by by week by subcutaneou subcutaneou subcutaneo s route for s route for us route 84 days. 84 days. for 84 days. testosteron testosteron No testostero Andrews e cypionate e cypionate ne C ommuni 200 mg/mL 200 mg/mL cypionate ty intramuscul intramuscul 200 mg/mL Hospita ar oil ar oil intramuscu l INJECT 0.5 INJECT 0.5 lar oil Clinics ML (100 MG) ML (100 MG) INJECT 0.5 EVERY 2 EVERY 2 ML (100 WEEKS BY WEEKS BY MG) EVERY INTRAMUSCUL INTRAMUSCUL 2 WEEKS BY AR ROUTE. AR ROUTE. INTRAMUSCU LAR ROUTE. Vital Signs Vital Name Observation Time Observation Value Comments Source Systolic blood 2023-01-20 22:00:00 132 mm[Hg] [facility] Diastolic blood 2023-01-20 22:00:00 75 mm[Hg] Unive rsity [facility] Heart rate 2023-01-20 22:00:00 77 /min [facility] Respiratory rate 2023-01-20 22:00:00 18 /min [facility] Oxygen saturation in 2023-01-20 22:00:00 96 /min [facility] Arterial blood by [facility] Pulse oximetry [facility] temperature 2023-01-20 20:33:00 37.17 Consuelo [facility] Body height 2023-01-20 20:33:00 175.3 cm [facility] Body weight 2023-01-20 20:33:00 109.317 kg [facility] BMI 2023-01-20 20:33:00 35.59 kg/m2 [facility] BP Diastolic 2022-09-17 00:00:00 89 mm[Hg] [facility] s Height 2022-09-17 00:00:00 69 [in_i] [facility] s BMI (Body Mass 2022-09-17 00:00:00 35.7 kg/m2 [facility] s BP Systolic 2022-09-17 00:00:00 155 mm[Hg] [facility] s Body Weight 2022-09-17 00:00:00 3872 [oz_av] [facility] s BP Diastolic 2022-06-25 00:00:00 96 mm[Hg] [facility] s Height 2022-06-25 00:00:00 69 [in_i] [facility] s BMI (Body Mass 2022-06-25 00:00:00 35.9 kg/m2 [facility] Index) Hospital Clinic s BP Systolic 2022-06-25 00:00:00 146 mm[Hg] [facility] Clinic s Body Weight 2022-06-25 00:00:00 3888 [oz_av] [facility] Clinic s BP Diastolic 2022-05-20 00:00:00 82 mm[Hg] [facility] Clinic s Height 2022-05-20 00:00:00 69 [in_i] [facility] s BMI (Body Mass 2022-05-20 00:00:00 36.8 kg/m2 [facility]) [facility] Clinic s BP Systolic 2022-05-20 00:00:00 145 mm[Hg] [facility] s Body Weight 2022-05-20 00:00:00 3984 [oz_av] [facility] Clinic s BP Diastolic 2022-01-05 00:00:00 92 mm[Hg] [facility] Clinic s Height 2022-01-05 00:00:00 69 [in_i] [facility] s BMI (Body Mass 2022-01-05 00:00:00 36.8 kg/m2 [facility]) [facility] Clinic s BP Systolic 2022-01-05 00:00:00 146 mm[Hg] [facility] Clinic s Body Weight 2022-01-05 00:00:00 3984 [oz_av] [facility] Clinic s height 2021-08-10 14:20:00 68 [in_i] [facility] weight 2021-08-10 14:20:00 240.8 [lb_av] [facility] temperature 2021-08-10 14:20:00 97.2 [degF] [facility] bmi 2021-08-10 14:20:00 36.61 kg/m2 [facility] oximetry 2021-08-10 14:20:00 98 % [facility] respiratory rate 2021-08-10 14:20:00 16 /min Comm on [facility] blood pressure 2021-08-10 14:20:00 132 mm[Hg] [facility] systolic [facility] blood pressure 2021-08-10 14:20:00 84 mm[Hg] [facility] diastolic [facility] height 2021-03-31 13:20:00 68 [in_i] [facility] weight 2021-03-31 13:20:00 220 [lb_av] [facility] temperature 2021-03-31 13:20:00 97.8 [degF] [facility] bmi 2021-03-31 13:20:00 33.45 kg/m2 [facility] oximetry 2021-03-31 13:20:00 94 % Common [facility] blood pressure 2021-03-31 13:20:00 118 mm[Hg] Common [facility] - systolic [facility] blood pressure 2021-03-31 13:20:00 88 mm[Hg] [facility] - diastolic [facility] height 2021-02-11 11:00:00 68 [in_i] Common [facility] weight 2021-02-11 11:00:00 243 [lb_av] [facility] temperature 2021-02-11 11:00:00 98.2 [degF] Common [facility] bmi 2021-02-11 11:00:00 36.94 kg/m2 Common S p[facility] oximetry 2021-02-11 11:00:00 96 % Common [facility] respiratory rate 2021-02-11 11:00:00 16 /min Comm on [facility] blood pressure 2021-02-11 11:00:00 125 mm[Hg] [facility] - systolic [facility] blood pressure 2021-02-11 11:00:00 63 mm[Hg] Common [facility] - diastolic [facility] Procedures Procedure Date / Time Performed Performing Clinician Abhinav e COMP. METABOLIC PANEL 2023-01-20 21:07:00 Gracie Alonso [facility] ([id number]) Medical Branch CBC WITH DIFF 2023-01-20 21:07:00 Gracie Alonso [place] [facility] ACUTE CARE VENOUS 2023-01-20 21:06:00 Gracie Alonso [facility] BLOOD GAS Medical Branch POCT GLUCOSE 2023-01-20 20:35:00 Gracie Alonso [facility] (AUTOMATED) [facility] Branch CONSENT/REFUSAL FOR 2023-01-20 20:19:28 Doctor Unassigned, No [facility] DIAGNOSIS AND Name Medical Branch TREATMENT NOTICE OF PRIVACY 2023-01-20 20:18:25 Doctor Unassigned, No [facility] PRACTICES Name Medical [place] Plan of Care Planned Activity Planned Date Details Comments Source Diagnostic Test 2022-07-29 HbA1c (hemoglobin [facility] Pending 00:00:00 A1c), blood [code Hospital C linics = HbA1c (hemoglobin A1c), blood] Diagnostic Test 2022-07-29 CMP, serum or [facility] Comm unity Pending 00:00:00 plasma [code = Hospital Clin ics CMP, serum or plasma] Diagnostic Test 2022-07-29 CBC w/ auto diff [facility] C ommunity Pending 00:00:00 [code = CBC w/ Hospital Clin ics auto diff] Encounters Start End Encounter Admission Attending Care Care Encounter Source Date/Time Date/Time Type Type Clinicians Facility Department ID 2021-07-15 Outpatient GINO Quevedo [facility] [id number] Common 12:23:22 Nichelle [id number] [facility] 2021-07-15 Outpatient GINO Quevedo [facility] [id number] Common 12:03:01 Nichelle [id number] [facility] 2021-07-15 Outpatient GINO Quevedo [facility] [id number] Common 11:16:16 Nichelle 13920 [facility] 2023-01-20 2023-01-20 Emergency X TOMI ALONSO ERT [id number] Univers 15:35:00 17:41:[address] [facility] 2023-01-20 2023-01-20 Bertha Alonso [facility] [id number] Univers 15:35:00 17:41:00 Gracie IBARRA [id number] i ty of [facility] [id number] 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, Clinic s [address], [address], [place] MSN, PUMP ERECTOR-C [id number] , Ph. 2022-09-03 2022-09-03 Outpatient SISSON_C [facility] [id number] Andrews 00:00:00 00:00:00 0331 Commun i ty Hospita l Clinics 2022-09-03 2022-09-03 Outpatient [facility] [id number] Andrews 00:00:00 00:00:00 0317 Commun i ty Hospita l Clinics 2022-07-30 2022-07-30 Outpatient [facility] [id number] 2022 Andrews 00:00:00 00:00:00 0210 Commun i ty Hospita l Clinics 2022-07-29 2022-07-29 Outpatient [facility] [id number] Andrews 00:00:00 00:00:00 0209 Commun i ty Hospita l Clinics 2022-07-29 2022-07-29 [facility] [place] - [facility] Andrews 00:00:00 00:00:00 Radha [facility] Comm uni 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 Clinic s [address], [address], [place] MSN, PUMP ERECTOR-C [id number] , Ph. 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, Clinic s [address], [employer] [address], [place] MSN, PUMP ERECTOR-C [id number] , Ph. 2022-06-15 2022-06-15 Outpatient [facility] 2021 Andrews 00:00:00 00:00:00 1227 Commun i ty Hospita l Clinics 2022-06-15 2022-06-15 [facility] [place] [id number] Andrews 00:00:00 00:00:00 Radha, [facility] [place], [place] 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, Clinic s [address], [address], [place] MSN, PUMP ERECTOR-C [id number] , Ph. 2022-05-22 2022-05-22 Outpatient [facility] 2021 Andrews 00:00:00 00:00:00 1203 Commun i ty Hospita l Clinics 2022-05-20 2022-05-20 Outpatient [facility] [id number] Andrews 00:00:00 00:00:00 1201 Commun i ty Hospita l Clinics 2022-05-20 2022-05-20 [facility] [place] [id number] Andrews 00:00:00 00:00:00 Radha [facility] uni 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, Clinic s [address], [address], [place], [place] MSN, PUMP ERECTOR-C [id number] , Ph. 2022-01-22 2022-01-22 Outpatient [facility] 2021 Andrews 00:00:00 00:00:00 0805 Commun i ty Hospita l [facility] 2022-01-22 2022-01-22 [id number] 00:00:00 00:00:00 Tati [id number] 2022-01-22 2022-01-22 [facility] [place] - [facility] Andrews 00:00:00 00:00:00 Radha, [facility] [place], [place] MSN, RECYCLING ATTENDANT, Hospital - ty PUMP ERECTOR-C: [address] [facility] [address], [employer] [address], [place], [place] MSN, PUMP ERECTOR-C [id number] , Ph. 2022-01-05 2022-01-05 Outpatient [facility] [id number] Andrews 05:39:00 05:39:00 0719 Commun i ty Hospita l [facility] 2022-01-05 2022-01-05 [facility] [place] - [facility] Andrews 00:00:00 00:00:00 Radha, [facility] uni 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, Clinic s [address], [employer] [address], [place], [place] MSN, PUMP ERECTOR-C [address] , Ph. 2022-01-05 2022-01-05 Outpatient Radha [facility] [id number] 00:00:00 00:00:00 Tati [id number] 2021-12-29 2021-12-29 Outpatient RADHAAyala [facility] [id number] 2021 Andrews 10:22:00 10:22:00 07 [facility] 2021-09-22 2021-09-22 (TEL) STLMLC STLMLC [id number] Co mmon 00:00:00 00:00:00 [facility] 2021-08-10 2021-08-10 OFFICE STLMLC STLMLC [id number] Co mmon 00:00:00 00:00:00 VISIT EST Spir it PT LEVEL 3 [facility] 2021-08-10 2021-08-10 (TEL) STLMLC STLMLC [id number] Co mmon 00:00:00 00:00:00 [facility] 2021-08-10 2021-08-10 (TEL) STLMLC STLMLC [id number] Co mmon 00:00:00 00:00:00 [facility] 2021-08-07 2021-08-07 (TEL) STLMLC STLMLC [id number] Co mmon 00:00:00 00:00:00 [facility] 2021-05-01 2021-05-01 (TEL) STLMLC STLMLC [id number] Co mmon 00:00:00 00:00:00 [facility] 2021-03-31 2021-03-31 OFFICE STLMLC STLMLC [id number] Co mmon 00:00:00 00:00:00 VISIT EST Spir it PT LEVEL 3 [facility] 2021-02-11 2021-02-11 OFFICE STLMLC STLMLC [id number] Co mmon 00:00:00 00:00:00 VISIT [facility] PT - [facility] LEVEL 2 [facility] 2020-07-09 2020-07-09 Outpatient STLMLC STLC [id number] Common 00:00:00 00:00:00 [facility] 2020-03-13 2020-03-13 Outpatient STLMLC STLC [id number] Common 00:00:00 00:00:00 [facility] 2019-11-20 2019-11-20 [facility] [id number] Common 14:20:00 14:20:[address] [facility] [address] [facility] 2019-11-19 2019-11-19 Outpatient [facility] [id number] Common 11:47:00 11:47:[address] [facility] [address] [facility] 2019-09-19 2019-09-19 Outpatient [facility] [id number] Common 10:20:00 10:20:00 [address] [facility] [address] [facility] 2019-09-17 2019-09-17 Outpatient [facility] [id number] Common 09:17:00 09:17:[address] [facility] [address] [facility] 2019-09-10 2019-09-10 Out[facility] [id number] Common 15:32:00 15:32:[address] [facility] [address] [facility] 2018-09-04 2018-09-04 Outpatient [facility] [id number] Common 15:00:00 15:00:[address] [facility] [address] [facility] Results Test Description Test Time Test Comments Results Result Comments Source ACUTE CARE VENOUS BLOOD GAS 2023-01-20 21:10:57 Test Item Value Reference Range Interpretation Comme nts PH (test code = 0463871489) 7.39 7.32-7.42 PCO2 NATALIYA (test code = 1428233472) 37 See_Comment L [Automated message] The system which ge nerated this result transmit renetta reference range: 41 - 51 mmHg. The reference range was not used to interpret th is result as normal/abnormal . PO2 NATALIYA (test code = 5353514213) 51 See_Comment H [Automated message] The system which ge nerated this result transmit renetta reference range: 25 - 40 mmHg. The reference range was not used to interpret th is result as normal/abnormal . HCO3 NATALIYA (test code = [id number]) 22 See_Comment L [Automated message] The system which ge nerated this result transmit renetta reference range: 24 - 28 mEq/L. The reference range was not used to interpret th is result as normal/abnormal . AC VBE(BEAKER) (test code = -2.6 mEq/L [id number]) Lab Interpretation (test code = Abnormal 71463-5) [facility] 20:36:37 Test Item Value Reference Range Interpretation Comments POCT GLU (test code = [id number]) 356 mg/dL 70-110 H Lab Interpretation (test code = Abnormal 06221-4) [facility] 2022-05-20 11:06:00 Test Item Value Reference Range Interpretation Comments Blood Glucose: mg/dl (test code = Blood 350 Glucose: mg/dl) [facility] blood 2022-05-20 11:06:00 Test Item Value Reference Range Interpretation Comments Blood Glucose: mg/dl (test code = Blood 350 Glucose: mg/dl) [facility] [id number] 00:00:00 Test Item Value Reference Range Interpretation Comments A1C (test code = 4548-4) 8.4 HEMOGLOBIN [id number] 00:00:00 Test Item Value Reference Range Interpretation Comments A1C (test code = 4548-4) 10.9 Notes Date/Time Note Provider Source 2023-01-20 Formatting of this note might be differe nt from the original. Antonia Restrepo RN [facility] 17:41:01-00:00 Pt given printed and verbal discharge instructions regarding Hyperglycemia, encouraged hydration, NO Prescriptions provided Discussed ibuprofen and to take with food to raymon id GI distress. Pt verbalized understanding of instructions, pt awake alert oriented, resp reg unlabored, skin w/d, color appropriate for race, moves all ext well,pt encouraged to follow up with pcp Advised to seek medical attention for new/prolon ged/worsening of symptoms, No adverse reaction to meds given in ER noted up on discharge PIV d'cd, dressing to site, catheter in tact. Awake, alert oriented, resp reg unlabored, skin w/d, pt leaving amb with steady gait, in no apparent distress, Electronically signed by Antonia Restrepo, RN at 5:41 PM CDT 2023-01-20 Formatting of this note might be differe nt from the original. Leah Breen RN [facility] 15:31:18-00:00 Pt arrived ambulatory with complaints of "feelin g like shit." Pt reports his blood sugar h as been running high in the 300-400s. Pt takes metformin and gliperide. Pt reports increased tiredness thirst and urination.
[2023-02-03] MEDS ORDERED: MORPHINE 4 MG/ML SYR ONE (23:09)
[2023-02-03] MEDS ORDERED: KETOROLAC 30 MG/ML INJ ONE (23:09)
--- NOTE | 2023-02-04 01:01 | ER ---
[facility] Name[facility] Boyd [facility] Age: 57 yrs Sex: Male : 1965 Arrival Date: 02/03/2023 Time: 21:09 Bed Treatment Private MD: Diagnosis: Pain in left knee Presentation: 02/03 21:41 Chief complaint: Patient states: Left knee pain X3 days. Pt states that he was walking cm10 and felt something pop. Pt states that he was seen at [facility] and given a shot with no relief. No imaging done. Coronavirus screen: Vaccine status: Patient reports being unvaccinated. Ebola Screen: Patient denies travel to an Ebola-affected area in the 21 days before illness onset. No symptoms or risks identified at this time. Initial Sepsis Screen: Does the patient meet any 2 criteria? No. Patient's initial sepsis screen is negative. Does the patient have a suspected source of infection? No. Patient's initial sepsis screen is negative. Risk Assessment: Do you want to hurt yourself or someone else? Patient reports no desire to harm self or others. Onset of symptoms was February 03, 2023. 21:41 Method Of Arrival: Wheelchair cm10 21:41 Acuity: LARISSA 4 cm10 Triage Assessment: 02/04 01:06 General: Appears uncomfortable, Behavior is calm, cooperative. Pain: Complains of pain kl in left leg. Historical: - Allergies: 02/03 21:43 No Known Allergies; cm10 - PMHx: 21:43 Diabetes - NIDDM; Hypertensive disorder; Gout; cm10 - PSHx: 21:43 r knee SX; cm10 - Immunization history:: Adult Immunizations unknown. - Social history:: Smoking status: Patient denies any tobacco usage or history of. Screenin/18 01:05 [facility] ED Fall Risk Assessment (Adult) History of falling in the last 3 months, kl including since admission Yes- single mechanical fall (1 pt) Confusion or Disorientation No (0 pts) Intoxicated or Sedated No (0 pts) Impaired Gait Yes (1 pt) Mobility Assist Device Used Yes (1 pt) Altered Elimination No (0 pt) Score/Fall Risk Level 3 or more points = High Risk Oriented to surroundings, Maintained a safe environment, Used ambulatory aids as needed (educated on \T\ assisted with). Abuse screen: Denies threats or abuse. Nutritional screening: No deficits noted. Tuberculosis screening: Assessment: 00:15 Reassessment: Patient appears in no apparent distress at this time. Patient states kl feeling better. Patient states symptoms have improved. Vital Signs: 02/03 21:41 BP 130 / 89; Pulse 92; Resp 18; Temp 99; Pulse Ox 99% ; Weight 108.86 kg; Height 5 ft. cm10 9 in. ; Pain 10/10; 02/04 01:05 Pulse 80; Resp 20; Pulse Ox 97% on R/A; kl 02/03 21:41 Body Mass Index 35.44 (108.86 kg, 175.26 cm) cm10 02/03 21:41 Pain Scale: Adult cm10 ED Course: 02/03 21:12 Patient arrived in ED. cc5 21:43 Triage completed. cm10 21:44 Arm band placed on Patient placed in waiting room. cm10 22:36 Gonzalo Mark PA is PHCP. cp 22:36 Albaro Mendez MD is Attending Physician. cp 23:04 XRAY Knee LEFT 3 view In Process Unspecified. EDPR 02/04 01:00 Marcelino Alanis MD is Referral Physician. cp 01:06 No provider procedures requiring assistance completed. Patient did not have IV access kl during this emergency room visit. Knee immobilizer applied on right knee. Administered Medications: 02/03 23:06 Drug: Ketorolac IM 30 mg Route: IM; Site: left ventrogluteal; 02/04 00:49 Follow up: Response: No adverse reaction; Marked relief of symptoms 02/03 23:07 Drug: morphine IM 4 mg Route: IM; Site: left ventrogluteal; 02/04 00:49 Follow up: Response: No adverse reaction; Marked relief of symptoms Outcome: 01:00 Discharge ordered by . cp 01:06 Discharged to home ambulatory, with family. 01:06 Condition: improved 01:06 Discharge instructions given to patient, Instructed on discharge instructions, follow up and referral plans. medication usage, Demonstrated understanding of instructions, follow-up care, medications, Prescriptions given X 1. 01:07 Patient left the ED. kl Signatures: Dispatcher [employer] EDPR Sacha, Radha, RN RN kl Page, Gonzalo, PA PA cp Gil, Ashley cc5 Augie, Ashley, RN RN cm10
--- NOTE | 2023-02-04 01:01 | EDPHYS ---
Physician Documentation [facility] Name: Boyd Jones Age: 57 yrs Sex: Male : 1965 Arrival Date: 02/03/2023 Time: 21:09 Bed Treatment Private MD: ED Physician Albaro Mendez HPI: 02/03 22:50 This 57 yrs old Male presents to ER via Wheelchair with complaints of Knee Pain. cp 22:50 The patient presents with pain, that is acute. The complaints affect the lateral aspect cp of left knee, posterior aspect of left knee, medial aspect of left knee and left knee. Context: Patient reports felt left knee "pop" while walking 3 days ago. 22:50 Associated signs and symptoms: The patient has no apparent associated signs or symptoms.cp Historical: - Allergies: 21:43 No Known Allergies; cm10 - PMHx: 21:43 Diabetes - NIDDM; Hypertensive disorder; Gout; cm10 - PSHx: 21:43 r knee SX; cm10 - Immunization history:: Adult Immunizations unknown. - Social history:: Smoking status: Patient denies any tobacco usage or history of. ROS: 22:55 MS/extremity: Positive for pain, swelling, tenderness, of the left knee. cp 22:55 Constitutional: Negative for body aches, chills, fever. cp 22:55 Neck: Negative for pain with movement, pain at rest, stiffness. 22:55 Respiratory: Negative for cough, shortness of breath, wheezing. 22:55 Abdomen/GI: Negative for abdominal pain, nausea, vomiting, and diarrhea. 22:55 Skin: Negative for rash. 22:55 All other systems are negative. Exam: 23:00 Constitutional: The patient appears in no acute distress, alert, awake, cp non-diaphoretic, non-toxic, well developed, well nourished, in obvious pain, uncomfortable. 23:00 Head/Face: Normocephalic, atraumatic. cp 23:00 Neck: ROM/movement: is normal, is supple, without pain, no range of motions limitations. 23:00 Back: pain, is absent, ROM is normal. 23:00 Musculoskeletal/extremity: Extremities: grossly normal except: noted in the left knee: mild swelling patella tendon, pain with passive ROM, joint line tenderness noted, overlying skin warm, intact with no erythema noted. Vital Signs: 21:41 BP 130 / 89; Pulse 92; Resp 18; Temp 99; Pulse Ox 99% ; Weight 108.86 kg; Height 5 ft. cm10 9 in. ; Pain 03/29; 02/04 01:05 Pulse 80; Resp 20; Pulse Ox 97% on R/A; kl 02/03 21:41 Body Mass Index 35.44 (108.86 kg, 175.26 cm) cm10 02/03 21:41 Pain Scale: Adult cm10 Procedures: 01:00 Splinting: Splint applied to left knee using knee immobilizer, applied by nurse. cp Examined by me, post splint application: neurovascular intact, Patient tolerated well. MDM: 02/03 22:37 Patient medically screened. cp 02/04 01:00 Data reviewed: vital signs, nurses notes, radiologic studies, plain films. cp 01:00 Differential diagnosis: closed fracture, tendonitis, sprain. I considered the following cp discharge prescriptions or medication management in the emergency department Medications were administered in the Emergency Department. See MAR. Counseling: I had a detailed discussion with the patient and/or guardian regarding the historical points, exam findings, and any diagnostic results supporting the discharge/admit diagnosis, radiology results, the need for outpatient follow up, for definitive care, a orthopedic surgeon, to return to the emergency department if symptoms worsen or persist or if there are any questions or concerns that arise at home. Response to treatment: the patient's symptoms have markedly improved after treatment, and as a result, I will discharge patient. 02/03 22:42 Order name: XRAY Knee LEFT 3 view cp 02/04 00:20 Order name: Knee Immobilizer; Complete Time: 00:49 cp Administered Medications: 02/03 23:06 Drug: Ketorolac IM 30 mg Route: IM; Site: left ventrogluteal; 02/04 00:49 Follow up: Response: No adverse reaction; Marked relief of symptoms 02/03 23:07 Drug: morphine IM 4 mg Route: IM; Site: left ventrogluteal; 02/04 00:49 Follow up: Response: No adverse reaction; Marked relief of symptoms kl Disposition Summary: 02/04/23 01:00 Discharge Ordered Location: Home cp Problem: new cp Symptoms: have improved cp Condition: Stable cp Diagnosis - Pain in left knee cp Followup: cp - With: Marcelino Alanis MD - When: 2 - 3 days - Reason: Recheck today's complaints Discharge Instructions: - Discharge Summary Sheet cp - Elastic Bandage and RICE Therapy cp - How to Use a Knee Immobilizer cp - Acute Knee Pain, Adult cp Forms: - Medication Reconciliation Form cp - Thank You Letter cp - Antibiotic Education cp - Prescription Opioid Use cp - Patient Portal Instructions cp - Leadership Thank You Letter cp Prescriptions: - Diclofenac Sodium 75 mg Oral Tablet Sustained Release - take 1 tablet by ORAL route 2 times per day; 30 tablet; Refills: 0, Product cp Selection Permitted - Tramadol 50 mg Oral Tablet - take 1 tablet by ORAL route every 8 hours as needed; 12 tablet; Refills: 0, cp Product Selection Permitted Signatures: Dispatcher [employer] EDRadha Patton, RN RN Gonzalo Yuan PA PA Ashley Ramsay RN RN cm10 Corrections: (The following items were deleted from the chart) 02/05 00:46 02/03 22:40 MS/extremity: Positive for pain, swelling, tenderness, of the left knee, cp cp
[2023-02-04 01:22] VITALS: BP 130/89; TEMP 99
[2023-02-04 01:24] VITALS: O2SAT 97
--- NOTE | 2023-02-04 17:40 | RAD REPORT ---
EXAM DESCRIPTION: RAD - Knee Left 3 View - 02/03/2023 11:02 pm CLINICAL HISTORY: 57 years, Male, PAIN COMPARISON: None FINDINGS: 3 X-ray views of the left knee (Frontal, lateral and oblique views) were performed. There is no evidence for fracture or dislocation. There are no gross intraosseous lesions. Heteroto pic bony calcification is identified within the Hoffa's fat pad area at the site of insertion of the infrapatellar tendon and slightly medially perhaps related to previous ligamentous injury. There is a ssociated soft tissue thickening within the region of the infrapatellar tendon with a this is related to prior injury, hematoma/or bursitis are of consideration. Minimal vascular calcification. Small tr phillip of suprapatellar joint effusion. No periosteal reaction. IMPRESSION: No acute fracture or dislocation. Heterotopic bony calcification within the Hoffa's fat pad area at the site of insertion of the infrap atellar tendon, perhaps related to previous ligamentous injury. There is associated soft tissue swelling within the soft tissue anterior to the infrapatellar tendon perhaps corresponding to cellulitis, edema, hematoma/or bursitis. Electronically signed by: Mehran Briones MD 02/03/2023 11:28 PM CDT Due to temporary technical issues with the PACS/Fluency reporting system, reports are being signed by the in house radiologists without review as a courtesy to insure prompt reporting. The interpreting radiologist is fully responsible for the content of the report.
== END 2023-02-04 01:07 | disposition home or self-care (01) ==
LOC: ER 21:09
DX: M25.562 Pain in left knee (principal)
CPT/HCPCS: 96372; 99284

== ENCOUNTER 2024-10-07 17:25 | Emergency (ER) | payer OTHER ==
--- OUTSIDE RECORDS SUMMARY | 2024-10-07 17:35 | XMS REPORT | Continuity of Care Document ---
Author Name Unknown Address [address] [facility]. [address] [place] [address] [facility] [place] Address [address] [facility] [address] [place] [address] Support Name Relationship Address Phone Jong Rivas Personal Relationship [address] [place] [phone] Radha iRvas Emergency Contact [address] [place] [phone] TINY MONTIEL E [address] [place] [address] Carlos AlbertoTiny talavera Child [address] [place] [address] MD GRAY CASASL Admitting Provider [address] [place] [address] PHYSICIAN, NO Primary Care Physician Unknown Unav ailable MD GAIL MARY Emergency Provider Unknown Unava ilable [place] [address] [place] [address] Unavailable MD LETY ELLENVILLETosha Emergency Provider [address] [place] [address] TIN[place] [address] [place] [address] AMEYA QUEVEDO MUSIC THERAPY SPECIALIST-Ayala Primary Care Physician [address] [place] [address] YAMILET VELÁZQUEZ [place] [address] Unavailable OTHER, ENTER NAME IN NOTES Primary Care Physician Unknown Unavailable MD SERINA FRIAS Emergency Provider [facility] [place] [address] RADHA RIVAS [address] [place] [address] [place] [address] Care Team 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 Role Phone Ameya Quevedo Primary Care Physician [phone] TATI GARCIA Attending Clinician Unavailable LUANA VELÁZQUEZ Attending Clinician Unavailable SERINA FRIAS Attending Clinician Unavailable Ameya Quevedo Attending Clinician Unavailable Doctor Unassigned, [place] Attending Clinician U Marcelino Jimenes MD Attending Clinician [phone] BETTYE FLOOD Attending Clinician Unavailable SOLE Attending Clinician Unavailable Domenic Rainey Attending Clinician UnavailGracie [place] Attending Clinician [phone] GRACIE WALTON Attending Clinician Unavailable KAYLEIGH DAVIDSON Attending Clinician Unavailable GRAY CASAS Attending Clinician Unavail able SERINA FRIAS Admitting Clinician Unavailable BETTYE FLOOD Admitting Clinician Unavailable SISDENISE_Ayala Admitting Clinician Unavailable Domenic Rainey Admitting Clinician UnavailGRAY Broussard Admitting Clinician Unavail able Payers Payer Name Policy Type Policy Number Effective Date Expirati on Date Source N[employer]ilizer (O) [id number] 2022 00:00:00 [employer] [facility] [employer] [id number] 2023 00:00:00 Problems Condition Name Condition Details Condition Category Status Onset Date Resolution Date Last Treatment Date Treating Clinician Comments Source Hyperlipid emia Hyperlipid emia Problem Active 07-20 00:00: 00 [facility] Cellulitis of left foot Cellulitis of Left Foot Problem Active 06-29 00:00: 00 [facility] Cataract of right eye Cataract of Right Eye Problem Active 06-29 00:00: 00 [facility] Constipati on, unspecifie d constipati on type Constipati on, unspecifie d constipati on type Disease Active 10-30 00:00: 00 [facility] Slow transit constipati on Slow transit constipati on Disease Active 10-30 00:00: 00 [facility] Gout Gout Disease Active 10-30 00:00: 00 [facility] Essential hypertensi on Essential hypertensi on Disease Active 10-30 00:00: 00 [facility] Type 2 diabetes mellitus with diabetic polyneurop athy, without long-term current use of insulin Type 2 diabetes mellitus with diabetic polyneurop athy, without long-term current use of insulin Disease Active 10-30 00:00: 00 [facility] History of coronary artery bypass grafting History of Coronary Artery Bypass Grafting Problem Active 08-16 00:00: 00 [facility] Coronary arterioscl erosis Coronary arterioscl erosis Disease Active 2022-06 00:00: 00 [facility] Hyperlipid emia Hyperlipid emia Disease Active 2022-06 00:00: 00 [facility] Osteomyeli tis Osteomyeli tis Disease Active 2022-06 00:00: 00 [facility] Peripheral neuropathy Peripheral neuropathy Disease Active 01-05 00:00: 00 [facility] Type 2 diabetes mellitus with foot ulcer Type 2 diabetes mellitus with foot ulcer Disease Active 01-05 00:00: 00 [facility] Diabetes mellitus Diabetes Mellitus Problem Active 01-05 [facility] Neuropathy Neuropathy Problem Active 01-05 00:00: 00 [facility] Hypertensi ve disorder Hypertensi ve Disorder Problem Active 01-05 00:00: 00 [facility] Dyspnea Dyspnea Disease Active 2016-06 00:00: 00 [facility] Chest pain Chest pain Disease Active 2016-06 00:00: 00 [facility] Allergies, Adverse Reactions, Alerts Allergy Name Allergy Type Status Severity Reaction(s) Onset Date Inactive Date Treating Clinician Comments Source No Known Allergie s DA Active U 2022-06 00:00: 00 [facility] No Known Allergie s DA Active U 2016-06 0 00:00: 00 [facility] NO KNOWN ALLERGIE S Drug Class Active [facility] Social History Social Habit Start Date Stop Date Quantity Comments Source History of Tobacco Use [facility] History of Social function 2023-10-13 00:00:00 2023-10-13 00:00:00 [facility] Sex assigned at 1965 00:00:00 1965 00:00:00 [facility] Smoking Status Start Date Stop Date Source Tobacco smoking consumption unknown [facility] Never Smoker [facility] Medications Ordered Medication Name Filled Medication Name Start Date Stop Date Current Medication? Ordering Clinician Indication Dosage Frequency Signature (SIG) Comments Components Source ketorolac (TORADOL) injection 15 mg 10-30 23:00: 00 10-30 22:54 :00 No 15mg 15 mg, Intramuscu lar, ONCE, 1 dose, On Tue10/31/23 at 1800, FLASH [facility] Cholecalcif sangita, Vitamin D3, 50 mcg (2,000 unit) capsule 10-30 19:58: 23 Yes 2000U Take 1 capsule by mouth in the morning. [facility] metFORMIN 1,000 mg tablet 10-30 19:58: 23 Yes 1000mg Take 1 tablet by mouth in the morning and 1 tablet in the evening. Take with meals. [facility] indomethaci n 25 mg capsule 10-30 19:58: 23 10-30 00:00 :00 No 25mg Take 1 capsule by mouth 3 (three) times daily as needed. [facility] ketorolac 10 mg tablet 10-30 00:00: 00 Yes [id number] 10mg Take 1 tablet by mouth every 6 (six) hours as needed for Pain (scale 7-10) for up to 15 doses. [facility] metoprolol tartrate 25 mg tablet 2022-06 00:00: 00 Yes 25mg Take 1 tablet by mouth in the morning and 1 tablet in the evening. [facility] glimepiride 4 mg tablet 2022-06 00:00: 00 Yes 4mg Take 1 tablet by mouth daily with breakfast. [facility] gabapentin 600 mg tablet 2022-06 00:00: 00 Yes 600mg Take 1 tablet by mouth in the morning and 1 tablet at noon and 1 tablet in the evening. [facility] atorvastati n 40 mg tablet 08-03 00:00: 00 Yes 40mg Take 1 tablet by mouth at bedtime. [facility] Indomethaci n ER 75 MG Indomethaci n ER 75 MG 08-10 00:00: 00 02-06 00:00 :00 No 1{capsu le_with _food} QD Indomethac in ER 75 MG Lactulose 10 GM/15ML Lactulose 10 GM/15ML 08-10 00:00: 00 11-08 00:00 :00 No 15{ml} QD Lactulose 10 GM/15ML Colchicine 0.6 MG Colchicine 0.6 MG 2020-06 0 00:00: 00 09-27 00:00 :00 No 1{table t} QD Colchicine 0.6 MG meclizine 25 mg tablet 17 00:00: 00 Yes 25mg Take 1 tablet by mouth every 6 (six) hours. [facility] acetaminoph en-codeine (TYLENOL-CO DEINE #4) 300-60 mg tablet 01-10 00:00: 00 Yes 1{tbl} Take 1 tablet by mouth every 4 (four) hours as needed for Pain. [facility] ketorolac 10 mg tablet 01-10 00:00: 00 10-30 00:00 :00 No 10mg Take 1 tablet by mouth every 6 (six) hours as needed for Pain (scale 7-10). [facility] Glimepiride Glimepiride 08-19 00:00: 00 Yes Ameya Quevedo 1 tablet [facility] Lisinopril 20 MG Lisinopril 20 MG 08-19 00:00: 00 No 1{table t} QD Lisinopril 20 MG Fenofibrate 160 MG Fenofibrate 160 MG 08-19 00:00: 00 No 1{table t_with_ food} QD Fenofibrat e 160 MG Glimepiride 4 MG Glimepiride 4 MG 08-19 00:00: 00 No Glimepirid e 4 MG metFORMIN HCl 1000 MG metFORMIN HCl 1000 MG 08-19 00:00: 00 No 1{table t_with_ meals} BID metFORMIN HCl 1000 MG Fenofibrate 160 MG Fenofibrate 160 MG 08-19 00:00: 00 No 1{table t_with_ food} QD Fenofibrat e 160 MG Lisinopril 20 MG Lisinopril 20 MG 08-19 00:00: 00 No 1{table t} QD Lisinopril 20 MG Glimepiride 4 MG Glimepiride 4 MG 08-19 00:00: 00 No Glimepirid e 4 MG Gabapentin 600 MG Gabapentin 600 MG 08-19 00:00: 00 No 1{table t} TID Gabapentin 600 MG Gabapentin 600 MG Gabapentin 600 MG 08-19 00:00: 00 No 1{table t} TID Gabapentin 600 MG Zinc 50 MG Zinc 50 MG No 1{ table t} QD Zinc 50 MG allopurinol 100 mg tablet Take 1 tablet every day by oral route. allopurinol 100 mg tablet Take 1 tablet every day by oral route. No 1 Q1D allopurino l 100 mg tablet Take 1 tablet every day by oral route. [facility] atorvastati n 40 mg tablet Take 1 tablet every day by oral route at bedtime for 90 days. atorvastati n 40 mg tablet Take 1 tablet every day by oral route at bedtime for 90 days. No 1 Q1D atorvastat in 40 mg tablet Take 1 tablet every day by oral route at bedtime for 90 days. [facility] gabapentin 600 mg tablet Take 1 tablet 3 times a day by oral route for 90 days. gabapentin 600 mg tablet Take 1 tablet 3 times a day by oral route for 90 days. No 1 TID gabapentin 600 mg tablet Take 1 tablet 3 times a day by oral route for 90 days. [facility] glimepiride 4 mg tablet Take 1 tablet twice a day by oral route for 90 days. glimepiride 4 mg tablet Take 1 tablet twice a day by oral route for 90 days. No 1 BID glimepirid e 4 mg tablet Take 1 tablet twice a day by oral route for 90 days. [facility] indomethaci n 25 mg capsule Take 1 capsule 3 times a day by oral route as needed for 10 days. indomethaci n 25 mg capsule Take 1 capsule 3 times a day by oral route as needed for 10 days. No 1capsul e(s) TID indomethac in 25 mg capsule Take 1 capsule 3 times a day by oral route as needed for 10 days. [facility] metformin 1,000 mg tablet TAKE 1 TABLET BY MOUTH TWICE DAILY metformin 1,000 mg tablet TAKE 1 TABLET BY MOUTH TWICE DAILY No 1 BID metformin 1,000 mg tablet TAKE 1 TABLET BY MOUTH TWICE DAILY [facility] albuterol sulfate HFA 90 mcg/actuati on aerosol inhaler Inhale 2 puffs every 4 hours by inhalation route for 90 days. albuterol sulfate HFA 90 mcg/actuati on aerosol inhaler Inhale 2 puffs every 4 hours by inhalation route for 90 days. No 2puff(s ) Q4H albuterol sulfate HFA 90 mcg/actuat ion aerosol inhaler Inhale 2 puffs every 4 hours by inhalation route for 90 days. [facility] Trulance 3 mg tablet Trulance 3 mg tablet No Trulance 3 mg tablet [facility] aspirin 81 mg chewable tablet CHEW AND SWALLOW ONE TABLET BY MOUTH DAILY aspirin 81 mg chewable tablet CHEW AND SWALLOW ONE TABLET BY MOUTH DAILY No aspirin 81 mg chewable tablet CHEW AND SWALLOW ONE TABLET BY MOUTH DAILY [facility] clopidogrel 75 mg tablet TAKE 1 TABLET BY MOUTH DAILY clopidogrel 75 mg tablet TAKE 1 TABLET BY MOUTH DAILY No clopidogre l 75 mg tablet TAKE 1 TABLET BY MOUTH DAILY [facility] amlodipine 5 mg tablet TAKE 1 TABLET BY MOUTH EVERY DAY amlodipine 5 mg tablet TAKE 1 TABLET BY MOUTH EVERY DAY No amlodipine 5 mg tablet TAKE 1 TABLET BY MOUTH EVERY DAY [facility] Ozempic 2 mg/dose (8 mg/3 mL) subcutaneou s pen injector Inject 2 mg every week by subcutaneou s route for 84 days. Ozempic 2 mg/dose (8 mg/3 mL) subcutaneou s pen injector Inject 2 mg every week by subcutaneou s route for 84 days. No 2mg Q1W Ozempic 2 mg/dose (8 mg/3 mL) subcutaneo us pen injector Inject 2 mg every week by subcutaneo us route for 84 days. [facility] Thiamine Thiamine No Thiamine Vitamin D 50 MCG (1999) Vitamin D 50 MCG (1999) No 1{capsu le} QD Vitamin D 50 MCG (1999) Vitamin C 1000 MG Vitamin C 1000 MG No 1{table t} QD Vitamin C 1000 MG Zinc 50 MG Zinc 50 MG No 1{ table t} QD Zinc 50 MG metFORMIN HCl 1000 MG metFORMIN HCl 1000 MG No 1{table t_with_ meals} BID metFORMIN HCl 1000 MG Vitamin D 50 MCG (1999) Vitamin D 50 MCG (1999) No 1{capsu le} QD Vitamin D 50 MCG (1999) Vitamin C 1000 MG Vitamin C 1000 MG No 1{table t} QD Vitamin C 1000 MG Vitamin C 1000 MG Vitamin C 1000 MG No 1{table t} QD Vitamin C 1000 MG predniSONE 5 MG (48) predniSONE 5 MG (48) No predniSONE 5 MG (48) Vital Signs Vital Name Observation Time Observation Value Comments S ource Height 2024-07-20 00:00:00 69 [in_i] [facility] BP Diastolic 2024-07-20 00:00:00 88 mm[Hg] [facility] BP Systolic 2024-07-20 00:00:00 146 mm[Hg] [facility] BMI (Body Mass Index) 2024-07-20 00:00:00 34.6 kg/m2 [facility] Body Weight 2024-07-20 00:00:00 3750 [oz_av] [facility] Height 2024-06-29 00:00:00 69 [in_i] [facility] BP Systolic 2024-06-29 00:00:00 126 mm[Hg] [facility] BP Diastolic 2024-06-29 00:00:00 77 mm[Hg] [facility] Body Weight 2024-06-29 00:00:00 3832 [oz_av] [facility] BMI (Body Mass Index) 2024-06-29 00:00:00 35.4 kg/m2 [facility] BP Diastolic 2024-02-28 00:00:00 82 mm[Hg] [facility] BP Systolic 2024-02-28 00:00:00 143 mm[Hg] [facility] Height 2024-02-28 00:00:00 69 [in_i] [facility] Body height 2023-12-09 13:19:[address] [facility] Body weight 2023-12-09 13:19:[address] [facility] BMI 2023-12-09 13:19:00 37.07 kg/m2 [facility] Body height 2023-11-01 14:05:[address] [facility] Body weight 2023-11-01 14:05:[address] [facility] BMI 2023-11-01 14:05:00 35.15 kg/m2 [facility] Systolic blood pressure 2023-11-01 00:42:00 142 mm[Hg] [facility] Diastolic blood pressure 2023-11-01 00:42:00 98 mm[Hg] [facility] Heart rate 2023-11-01 00:42:00 74 /min [facility] Body temperature 2023-11-01 00:42:00 36.89 Consuelo [facility] Respiratory rate 2023-11-01 00:42:00 18 /min [facility] Oxygen saturation in Arterial blood by Pulse oximetry 2023-11-01 00:42:00 100 /min [facility] Body height 2023-10-31 22:10:[address] [facility] Body weight 2023-10-31 22:10:[address] [facility] BMI 2023-10-31 22:10:00 35.15 kg/m2 [facility] Systolic blood pressure 2023-10-13 14:51:00 130 mm[Hg] [facility] Diastolic blood pressure 2023-10-13 14:51:00 87 mm[Hg] [facility] Heart rate 2023-10-13 14:51:00 77 /min [facility] Body height 2023-10-13 14:51:[address] [facility] Body weight 2023-10-13 14:51:[address] [facility] BMI 2023-10-13 14:51:00 35.44 kg/m2 [facility] Oxygen saturation in Arterial blood by Pulse oximetry 2023-10-13 14:51:00 99 /min [facility] BMI (Body Mass Index) 2023-08-16 00:00:00 34.8 kg/m2 [facility] Body Weight 2023-08-16 00:00:00 3770 [oz_av] [facility] Height 2023-08-16 00:00:00 69 [in_i] [facility] BP Systolic 2023-08-16 00:00:00 155 mm[Hg] [facility] BP Diastolic 2023-08-16 00:00:00 93 mm[Hg] [facility] Height 2023-04-06 00:00:00 69 [in_i] [facility] Systolic blood pressure 2023-01-20 22:00:00 132 mm[Hg] [facility] Diastolic blood pressure 2023-01-20 22:00:00 75 mm[Hg] [facility] Heart rate 2023-01-20 22:00:00 77 /min [facility] Respiratory rate 2023-01-20 22:00:00 18 /min [facility] Oxygen saturation in Arterial blood by Pulse oximetry 2023-01-20 22:00:00 96 /min Bracey o [facility] Body temperature 2023-01-20 20:33:00 37.17 Consuelo [facility] Body height 2023-01-20 20:33:[address] [facility] Body weight 2023-01-20 20:33:[address] [facility] BMI 2023-01-20 20:33:00 35.59 kg/m2 [facility] BP Diastolic 2022-09-17 00:00:00 89 mm[Hg] Counts include 234 beds at the [facility] Height 2022-09-17 00:00:00 69 [in_i] [facility] BMI (Body Mass Index) 2022-09-17 00:00:00 35.7 kg/m2 [facility] BP Systolic 2022-09-17 00:00:00 155 mm[Hg] [facility] Body Weight 2022-09-17 00:00:00 3872 [oz_av] [facility] BP Diastolic 2022-06-25 00:00:00 96 mm[Hg] [facility] Height 2022-06-25 00:00:00 69 [in_i] [facility] BMI (Body Mass Index) 2022-06-25 00:00:00 35.9 kg/m2 [facility] BP Systolic 2022-06-25 00:00:00 146 mm[Hg] [facility] Body Weight 2022-06-25 00:00:00 3888 [oz_av] [facility] BP Diastolic 2022-05-20 00:00:00 82 mm[Hg] [facility] Height 2022-05-20 00:00:00 69 [in_i] [facility] BMI (Body Mass Index) 2022-05-20 00:00:00 36.8 kg/m2 [facility] BP Systolic 2022-05-20 00:00:00 145 mm[Hg] [facility] Body Weight 2022-05-20 00:00:00 3984 [oz_av] [facility] BP Diastolic 2022-01-05 00:00:00 92 mm[Hg] Counts include 234 beds at the [facility] Height 2022-01-05 00:00:00 69 [in_i] [facility] BMI (Body Mass Index) 2022-01-05 00:00:00 36.8 kg/m2 [facility] BP Systolic 2022-01-05 00:00:00 146 mm[Hg] [facility] Body Weight 2022-01-05 00:00:00 3984 [oz_av] [facility] height 2021-08-10 14:20:00 68 [in_i] Commo n [facility] weight 2021-08-10 14:20:00 240.8 [lb_av] Co mmon [facility] temperature 2021-08-10 14:20:00 97.2 [degF] Com mon [facility] bmi 2021-08-10 14:20:00 36.61 kg/m2 Comm on [facility] oximetry 2021-08-10 14:20:00 98 % Commo n [facility] respiratory rate 2021-08-10 14:20:00 16 /min [facility] blood pressure systolic 2021-08-10 14:20:00 132 mm[Hg] [facility] blood pressure diastolic 2021-08-10 14:20:00 84 mm[Hg] [facility] height 2021-03-31 13:20:00 68 [in_i] Commo n [facility] weight 2021-03-31 13:20:00 220 [lb_av] Comm on [facility] temperature 2021-03-31 13:20:00 97.8 [degF] Com mon [facility] bmi 2021-03-31 13:20:00 33.45 kg/m2 Comm on [facility] oximetry 2021-03-31 13:20:00 94 % Commo n [facility] blood pressure systolic 2021-03-31 13:20:00 118 mm[Hg] [facility] blood pressure diastolic 2021-03-31 13:20:00 88 mm[Hg] [facility] height 2021-02-11 11:00:00 68 [in_i] Commo n [facility] weight 2021-02-11 11:00:00 243 [lb_av] Comm on [facility] temperature 2021-02-11 11:00:00 98.2 [degF] Com mon [facility] bmi 2021-02-11 11:00:00 36.94 kg/m2 Comm on [facility] oximetry 2021-02-11 11:00:00 96 % Commo n [facility] respiratory rate 2021-02-11 11:00:00 16 /min [facility] blood pressure systolic 2021-02-11 11:00:00 125 mm[Hg] [facility] blood pressure diastolic 2021-02-11 11:00:00 63 mm[Hg] [facility] Body height 2023-11-01 14:05:[address] [facility] Body weight 2023-11-01 14:05:[address] [facility] BMI 2023-11-01 14:05:00 35.15 kg/m2 [facility] Systolic blood pressure 2023-11-01 00:42:00 142 mm[Hg] [facility] Diastolic blood pressure 2023-11-01 00:42:00 98 mm[Hg] [facility] Heart rate 2023-11-01 00:42:00 74 /min [facility] Body temperature 2023-11-01 00:42:00 36.89 Consuelo [facility] Respiratory rate 2023-11-01 00:42:00 18 /min [facility] Oxygen saturation in Arterial blood by Pulse oximetry 2023-11-01 00:42:00 100 /min [facility] Procedures Procedure Date / Time Performed Performing Clinician Source CT, chest, w/o contrast 2024-07-20 00:00:00 [facility] electrocardiogram 2024-07-17 00:00:00 [facility] XR, chest, 2 view 2024-07-17 00:00:00 [facility] Amputation of Lower Limb 2023-12-27 00:00:00 [facility] CT CERVICAL SPINE WO CONTRAST 2023-10-31 23:31:00 Bettye Flood [facility] CT CERVICAL SPINE WO CONTRAST 2023-10-31 23:31:00 Bettye Flood [facility] XR TIBIA FIBULA 2 VW RIGHT 2023-10-13 15:33:11 Marcelino Correa [facility] [id number] 2023-04-27 00:00:00 CHAAB.01 [facility] [id number] 2023-04-27 00:00:00 CHAAB.01 [facility] [id number] 2023-04-27 00:00:00 CHAA[facility].01 [facility] [id number] 2023-04-27 00:00:00 CHAA[facility].01 [facility] [id number] 2023-04-27 00:00:00 CHAAB.01 [facility] [id number] 2023-04-27 00:00:00 CHAA[facility].01 [facility] [id number] 2023-04-24 00:00:00 CHAA[facility].01 [facility] [id number] 2023-04-24 00:00:00 CHAAB.01 [facility] [id number] 2023-04-24 00:00:00 CHAAB.01 [facility] XR, foot, 2 view 2023-04-06 00:00:00 [facility] COMP. METABOLIC PANEL ([id number]) 2023-01-20 21:07:00 Gracie Walton [facility] COMP. METABOLIC PANEL ([id number]) 2023-01-20 21:07:00 Gracie Walton [facility] CBC WITH DIFF 2023-01-20 21:07:00 Gracie Walton [facility] ACUTE CARE VENOUS BLOOD GAS 2023-01-20 21:06:00 Gracie Walton [facility] POCT GLUCOSE (AUTOMATED) 2023-01-20 20:35:00 Kevin Walton [facility] CONSENT/REFUSAL FOR DIAGNOSIS AND TREATMENT 2023-01-20 20:19:28 Doctor Unassigned, [place] [facility] [facility] NOTICE OF PRIVACY PRACTICES 2023-01-20 20:18:25 Doctor Unassigned, [place] [facility] Encounters Start Date/Time End Date/Time Encounter Type Admission Type Attending [facility] Facility Care Department Encounter ID Source 2024-07-25 14:53:01 Outpatient [facility] [id number] [place] [facility] 2023-05-03 10:00:00 Inpatient [facility] [id number] [facility] 2023-04-26 09:00:00 Inpatient [facility] [id number] [facility] 2023-04-15 15:14:00 Inpatient ER ZEENAT FRIASJOHNATHAN [facility] [id number] [facility] 2021-07-15 12:23:22 [facility] [id number] [facility] 2021-07-15 12:03:01 Outpatient Ameya Quevedo [facility] [id number] [facility] 2021-07-15 11:16:16 Outpatient Ameya Quevedo [facility] [id number] [facility] 2024-07-20 00:00:00 2024-07-20 00:00:00 Tati Garcia, MSN, [employer], MUSIC THERAPY SPECIALIST-C: [address], [address], [place] [address] , Ph. [facility], Tati Garcia, MSN, MUSIC THERAPY SPECIALIST-C [id number] [facility] 2024-06-29 00:00:00 2024-06-29 00:00:00 Chanel Staples APRN-MUSIC THERAPY SPECIALIST-B C: [address] [place] [address] , [address] [facility] [id number] 0110 [facility] 2024-02-28 00:00:00 2024-02-28 00:00:00 Tati Garcia, MSN, [employer], MUSIC THERAPY SPECIALIST-C: [address], [address], [place] [address] , Ph. [facility], Tati Garcia, MSN, MUSIC THERAPY SPECIALIST-C [id number] [facility] 2023-11-08 00:00:00 2023-12-10 18:20:16 Patient Secure Msg Doctor Unassigned, [place] [facility] 1.2.840.114 350.1.13.10 4.2.7.2.686 [id number] [facility] 2023-12-09 08:37:33 2023-12-09 23:59:00 Hospital Encounter Marcelino Clemons [facility] 1.2.840.114 350.1.13.10 4.2.7.2.686 [id number] [facility] 2023-12-09 08:30:00 2023-12-09 09:03:19 Office Visit Marcelino Clemons [facility] 1.2.840.114 350.1.13.10 4.2.7.2.686 [id number] [facility] 2023-12-09 08:26:03 2023-12-09 08:36:00 Hospital Encounter Marcelino Clemons [facility] 1.2.840.114 350.1.13.10 4.2.7.2.686 [id number] [facility] 2023-11-24 00:00:00 2023-11-25 08:52:41 [facility] 1.2.840.114 350.1.13.10 4.2.7.2.686 [id number] [facility] 2023-11-01 09:15:00 2023-11-01 09:31:38 [facility] 1.2.840.114 350.1.13.10 4.2.7.2.686 [id number] [facility] 2023-10-31 17:11:00 2023-10-31 19:58:00 Emergency X [facility] [id number] [facility] 2023-10-31 17:11:00 2023-10-31 19:58:00 Emergency Bettye Flood 1.2.840.1 [id number] 3.104.2.7 .3.168671 .8 [id number] [facility] 2023-10-31 15:20:15 2023-10-31 17:10:00 Hospital Encounter Marcelino Clemons 1.2.840.1 [id number] 3.104.2.7 .3.386296 .8 [id number] [facility] 2023-10-31 00:00:00 2023-10-31 00:00:00 Travel 1.2.840.1 89736.1.1 3.104.2.7 .3.478923 .8 1.2.840.114 350.1.13.10 4.2.7.3.698 [id number] [facility] 2023-10-13 10:26:07 2023-10-13 23:59:00 Hospital Encounter Marcelino Clemons 1.2.840.1 [id number] 3.104.2.7 .3.011082 .8 [id number] [facility] 2023-10-13 10:15:00 2023-10-13 10:42:57 Office Visit Marcelino Clemons 1.2.840.1 00466.1.1 3.104.2.7 .3.132319 .8 [id number] [facility] 2023-10-12 00:00:00 2023-10-12 00:00:00 Travel 1.2.840.1 [id number] 3.104.2.7 .3.615428 .8 1.2.840.114 350.1.13.10 4.2.7.3.698 [id number] [facility] 2023-08-16 00:00:00 2023-08-16 00:00:00 Tati Garcia, DONALDO, [employer], MUSIC THERAPY SPECIALIST-C: [address], [address], [place] [address] , Ph. [facility] - [facility], DONALDO Wren, MUSIC THERAPY SPECIALIST-C [id number] [facility] 2023-05-10 00:00:00 2023-05-10 00:00:00 Outpatient SOLE [facility] [id number] [facility] 2023-04-19 20:05:00 2023-05-05 17:48:00 Inpatient UR Domenic Rainey [facility] INTE [id number] [facility] 2023-04-16 11:19:00 2023-04-19 18:10:00 Inpatient ER SERINA FRIAS [facility] [id number] [facility] 2023-04-16 11:19:00 2023-04-19 18:10:00 inpatient encounter [facility] [id number] [facility] [id number] 2023-04-12 08:33:00 2023-04-12 08:33:00 Outpatient [facility] [id number] [facility] 2023-04-11 10:08:00 2023-04-11 10:08:00 Outpatient [facility] [id number] [facility] 2023-04-06 00:00:00 2023-04-06 00:00:00 Outpatient RADHA_Ayala [facility] [id number] [facility] 2023-04-06 00:00:00 2023-04-06 00:00:00 Tati Garcia, DONALDO, [employer], MUSIC THERAPY SPECIALIST-C: [address], [address], [place] [address] , Ph. [facility] - [facility], Tati Garcia, DONALDO, MUSIC THERAPY SPECIALIST-C [id number] [facility] 2023-01-20 15:35:00 2023-01-20 17:41:00 Emergency Gracie Walton [facility] 1.2.840.114 350.1.13.10 4.2.7.2.686 [id number] [facility] 2023-01-20 15:35:00 2023-01-20 17:41:00 Emergency GRACIE KERR [facility] [id number] [facility] 2022-09-17 00:00:00 2022-09-17 00:00:00 Tati Garcia, MSN, [employer], MUSIC THERAPY SPECIALIST-C: [address], [address], [address], [place] [address] , Ph. [facility], Tati Garcia, MSN, MUSIC THERAPY SPECIALIST-C [id number] [facility] 2022-09-03 00:00:00 2022-09-03 00:00:00 Outpatient SISSON_C [facility] [id number] [facility] 2022-09-03 00:00:00 2022-09-03 00:00:00 Outpatient SISSON_C [facility] [id number] [facility] 2022-07-30 00:00:00 2022-07-30 00:00:00 Outpatient SISSON_C [facility] [id number] [facility] 2022-07-29 00:00:00 2022-07-29 00:00:00 Outpatient SISSON_C [facility] [id number] [facility] 2022-07-29 00:00:00 2022-07-29 00:00:00 Tati Garcia, MSN, [employer], MUSIC THERAPY SPECIALIST-C: [address], [address], [place] [address] , Ph. [facility], Tati Garcia, MSN, MUSIC THERAPY SPECIALIST-C [id number] [facility] 2022-07-02 00:00:00 2022-07-02 00:00:00 Outpatient SISSON_C [facility] [id number] [facility] 2022-06-26 00:00:00 2022-06-26 00:00:00 Outpatient SISSON_C [facility] [id number] [facility] 2022-06-25 00:00:00 2022-06-25 00:00:00 Outpatient SISSON_C [facility] [id number] [facility] 2022-06-25 00:00:00 2022-06-25 00:00:00 Tati Garcia MSN, [employer], MUSIC THERAPY SPECIALIST-C: [address], [place] [address] , Ph. [facility], Tati Garcia MSN, MUSIC THERAPY SPECIALIST-C [id number] [facility] 2022-06-15 00:00:00 2022-06-15 00:00:00 Outpatient SISSON_C [facility] [id number] [facility] 2022-06-15 00:00:00 2022-06-15 00:00:00 Tati Garcia MSN, [employer], MUSIC THERAPY SPECIALIST-C: [address], [place] [address] , Ph. [facility], Tati Garcia, MSN, MUSIC THERAPY SPECIALIST-C [id number] [facility] 2022-05-22 00:00:00 2022-05-22 00:00:00 Outpatient SISSON_C [facility] [id number] [facility] 2022-05-20 00:00:00 2022-05-20 00:00:00 Outpatient SISSON_C [facility] [id number] [facility] 2022-05-20 00:00:00 2022-05-20 00:00:00 Tati Radha, MSN, [employer], MUSIC THERAPY SPECIALIST-C: [address], [place] [address] , Ph. [facility], Tati Garcia, MSN, MUSIC THERAPY SPECIALIST-C [id number] [facility] 2022-01-22 00:00:00 2022-01-22 00:00:00 Outpatient SISSON_C [facility] 08 [facility] 2022-01-22 00:00:00 2022-01-22 00:00:00 Outpatient Tati Garcia [facility] [id number] 2022-01-22 00:00:00 2022-01-22 00:00:00 Tati Garcia MSN, [employer], MUSIC THERAPY SPECIALIST-C: [address], [address], [place] [address] , Ph. [facility], Tati Garcia, MSN, MUSIC THERAPY SPECIALIST-C [id number] [facility] 2022-01-05 05:39:00 2022-01-05 05:39:00 Outpatient SISSON_C [facility] [id number] [facility] 2022-01-05 00:00:00 2022-01-05 00:00:00 Tati Garcia, MSN, [employer], MUSIC THERAPY SPECIALIST-C: [address], [address], [place] [address] , Ph. [facility], Tati Garcia, MSN, MUSIC THERAPY SPECIALIST-C [id number] [facility] 2022-01-05 00:00:00 2022-01-05 00:00:00 Outpatient RadhaTati [facility] [id number] 2021-12-29 10:22:00 2021-12-29 10:22:00 Outpatient SOLE [facility] [id number] [facility] 2021-09-22 00:00:00 2021-09-22 00:00:00 (TEL) STLMLC STLMLC [id number] [facility] 2021-08-10 00:00:00 2021-08-10 00:00:00 OFFICE VISIT EST PT LEVEL 3 STLMLC STLMLC [id number] [facility] 2021-08-10 00:00:00 2021-08-10 00:00:00 (TEL) STLMLC STLMLC [id number] [facility] 2021-08-10 00:00:00 2021-08-10 00:00:00 (TEL) STLMLC STLMLC [id number] [facility] 2021-08-07 00:00:00 2021-08-07 00:00:00 (TEL) STLMLC STLMLC [id number] [facility] 2021-05-25 13:57:00 2021-05-25 17:02:00 Emergency ER LETY KAYLEIGH [facility] [id number] [facility] 2021-05-01 00:00:00 2021-05-01 00:00:00 (TEL) STLMLC STLMLC [id number] [facility] 2021-04-14 13:35:00 2021-04-14 19:30:00 Emergency ER CELIOKAYLEIGH Drew [facility] [id number] [facility] 2021-03-31 00:00:00 2021-03-31 00:00:00 OFFICE VISIT EST PT LEVEL 3 STLMLC STLMLC [id number] [facility] 2021-03-21 16:13:00 2021-03-25 17:06:00 Inpatient GRAY CASAS [facility] [id number] [facility] 2021-02-11 00:00:00 2021-02-11 00:00:00 OFFICE VISIT ESTAB PT LEVEL 2 STLMLC STLMLC [id number] [facility] 2020-07-09 00:00:00 2020-07-09 00:00:00 Outpatient STLMLC STLMLC [id number] [facility] 2020-03-13 00:00:00 2020-03-13 00:00:00 Outpatient STLMLC STLMLC [id number] [facility] 2019-11-20 14:20:00 2019-11-20 14:20:00 Outpatient [facility] [id number] [facility] 2019-11-19 11:47:00 2019-11-19 11:47:00 Outpatient [facility] [id number] [facility] 2019-09-19 10:20:00 2019-09-19 10:20:00 Outpatient [facility] [id number] [facility] 2019-09-17 09:17:00 2019-09-17 09:17:00 Outpatient [facility] [id number] [facility] 2019-09-10 15:32:00 2019-09-10 15:32:00 [facility]patient [facility] [id number] [facility] 2018-09-04 15:00:00 2018-09-04 15:00:00 [facility] [id number] [facility] Results Test Description Test Time Test Comments Results Result Comments Source CT CERVICAL SPINE WO CONTRAST 23:39:13 HISTORY:Neck pain, acute, no red flags TECHNIQUE: CT of the cervical spine was performed without IV contrast. COMPARISON:None FINDINGS: Straightening of the cervical lordosis with subtle anterolisthesis of C4 onC5. The vertebral body heights are preserved. Moderate multileveldegenerative changes in the form distress narrowing from osteophytes andfacet arthropathy. Most notable level is C6-C7. The craniocervical junctionis intact. [facility] XR TIBIA FIBULA 2 VW RIGHT 20:44:24 XR TIBIA FIBULA 2 VW RIGHT INDICATION: right tib fibula Rm 6 COMPARISON: None FINDINGS: Mildly displaced spiral fracture of the proximal fibular diaphysis. Diffusesoft tissue swelling. Moderate knee joint osteoarthrosis is partiallyvisualized. External splint material obscures soft tissue and bony detail. [facility] GLUCOSE [id number] 08:26:00* Test Item Value Reference Range Interpretation Comme nts GLUCOSE BEDSIDE (test code = GLUBED) 177 MG/DL 70-110 H Performed by mila alexandra od grinder operator at [facility] BASIC METABOLIC [id number] 06:00:00* Test Item Value Reference Range Interpretation Comme nts SODIUM (test code = NA) 138 mEq/L 134-147 N POTASSIUM (test code = K) 3.6 mEq/L 3.4-5.0 N CHLORIDE (test code = CL) 102 mEq/L 100-108 N CARBON DIOXIDE (test code = CO2) 27 mEq/l 21-33 N ANION GAP (test code = GAP) 13 0-20 N GLUCOSE (test code = GLU) 157 mg/dL 77-141 H NOTE: NEW NORMAL RANGE BLOOD UREA NITROGEN (test code = BUN) 14 mg/dL 7-25 N NOTE: NEW NORM AL RANGE GLOMERULAR FILTRATION RATE (test code = GFR) 87.8 90-95 L The Glomerular Filtration Rate is a calculated parameterbased on serum Creatinine, patient age and sex. GFR valuesless than 60 mL/min/1.73 square meters are indicative ofChronic Kidney Disease. Values less than 15 mL/min/1.73square meters indicate Kidney failure. The calculation forGFR is based on the CKD-EPI (202) calculation. This formulais race indifferent and is the recommended formula for GFRby the National Kidney Foundation for Adults.The GFR will not calculate if the sex is unknown or if thepatient's age is <18 years. CREATININE (test code = CREAT) 1.0 mg/dL 0.6-1.3 N CALCIUM (test code = CA) 8.9 mg/dL 8.0-10.5 N [id number] 06:00:00* Test Item Value Reference Range Interpretation Comme nts MAGNESIUM (test code = MAG) 1.39 mg/dL 1.6-2.6 L NOTE: NEW NORMAL RANGE CBC W/AUTO [id number] 04:30:00* Test Item Value Reference Range Interpretation Comme nts WHITE BLOOD CELL (test code = WBC) 10.3 x10 3/uL 4.5-11.0 N RED BLOOD CELL (test code = RBC) 3.23 x10 6/uL 4.00-5.60 L HEMOGLOBIN (test code = HGB) 9.8 g/dL 12.5-16.9 L HEMATOCRIT (test code = HCT) 29.6 % 37.5-50.7 L MEAN CELL VOLUME (test code = MCV) 91.6 fL 81.0-99.0 N MEAN CELL HGB (test code = MCH) 30.3 pg 27.0-33.0 N MEAN CELL HGB CONCETRATION (test code = MCHC) 33.1 g/dL 33.0-37.0 N RED CELL DISTRIBUTION WIDTH CV (test code = RDW) 13.2 % 11.5-14.5 N RED CELL DISTRIBUTION WIDTH SD (test code = RDW-SD) 43.2 fL 37.0-54.0 N PLATELET COUNT (test code = PLT) 302 x10 3/uL 150-400 N MEAN PLATELET VOLUME (test c ode = MPV) 10.2 fL 7.0-9.0 H NEUTROPHIL % (test code = NT%) 70.6 % 56.0-77.0 N IMMATURE GRANULOCYTE % (test code = IG%) 0.5 % 0.0-2.0 N LYMPHOCYTE % (test code = LY%) 18.9 % 14.0-32.0 N MONOCYTE % (test code = MO%) 6.8 % 4.8-9.0 N EOSINOPHIL % (test code = EO%) 2.8 % 0.3-3.7 N BASOPHIL % (test code = BA%) 0.4 % 0.0-2.0 N NUCLEATED RBC % (test code = NRBC%) 0.0 % 0-0 N NEUTROPHIL # (test code = NT#) 7.26 x10 3/uL 2.0-7.6 N IMMATURE GRANULOCYTE # (test code = IG#) 0.05 x10 3/uL 0.00-0.03 H LYMPHOCYTE # (test code = LY#) 1.94 x10 3/uL 1.0-3.8 N MONOCYTE # (test code = MO#) 0.70 x10 3/uL 0.1-0.8 N EOSINOPHIL # (test code = EO#) 0.29 x10 3/uL 0.0-0.2 H BASOPHIL # (test code = BA#) 0.04 x10 3/uL 0.0-0.2 N NUCLEATED RBC # (test code = NRBC#) 0.00 x10 3/uL 0.0-0.1 N GLUCOSE [id number] 20:35:00* Test Item Value Reference Range Interpretation Comme nts GLUCOSE BEDSIDE (test code = GLUBED) 246 MG/DL 70-110 H Performed by cer tified od grinder operator at [facility] GLUCOSE [id number] 17:44:00* Test Item Value Reference Range Interpretation Comme nts GLUCOSE BEDSIDE (test code = GLUBED) 242 MG/DL 70-110 H Performed by [facility] tified od grinder operator at [facility] GLUCOSE [id number] 12:32:00* Test Item Value Reference Range Interpretation Comme nts GLUCOSE BEDSIDE (test code = GLUBED) 218 MG/DL 70-110 H Performed by [facility] tified od grinder operator at [facility] GLUCOSE [id number] 08:17:00* Test Item Value Reference Range Interpretation Comme nts GLUCOSE BEDSIDE (test code = GLUBED) 233 MG/DL 70-110 H Performed by [facility] tifMindmancer od grinder operator at [facility] - XR CHEST 1 [id number] 07:43:00 [facility] 1965 Sex: M FAX: Domenic Banerjee MD [phone] [place]: St: ADM FAX: Viky Barbour y [phone] --- Name: JONG RIVAS [facility] : 1965 Age/S: 58/M [address] [place] [address] Unit #: [id number] Loc: .[address] [place] [address] Phys: Viky Mclaughlin Acct: [id number] Dis Date: Status: ADM IN PHONE #: Exam Date: 05/04/2023 05 FAX #: [phone] Reason: S/P CABG, R/O EFFUSION EXAMS: CPT CODE: [id number] XR CHEST 1 V [id number] EXAM: - XR CHEST 1 V Location code:C3 HISTORY: S/P CABG, R/O EFFUSION COMPARISON: 05/03/2023 IMPRESSION: Single AP view of the chest is provided. Support lines andtubes are unchanged. Perihilar alveolar opacities have diminished. There is no pneumothorax. No additional interval change. at 0743 Reported and signed by: Oziel Bro M.D. CC: Domenic Rainey MD; Viky Mclaughlin Technologist: Winsome Minor, (Ayla) Trnscrd Date/Time/By: 05/04/2023 (0743) : By: [email or web address] Orig Print D/T: S: 05/04/2023 (0779) PAGE 1 Signed ReportBASIC METABOLIC [id number] 06:27:00* Test Item Value Reference Range Interpretation Comme nts SODIUM (test code = NA) 137 mEq/L 134-147 N POTASSIUM (test code = K) 3.6 mEq/L 3.4-5.0 N CHLORIDE (test code = CL) 102 mEq/L 100-108 N CARBON DIOXIDE (test code = CO2) 28 mEq/l 21-33 N ANION GAP (test code = GAP) 10 0-20 N GLUCOSE (test code = GLU) 306 mg/dL 77-141 H NOTE: NEW NORMAL RANGE BLOOD UREA NITROGEN (test code = BUN) 21 mg/dL 7-25 N NOTE: NEW NORM AL RANGE GLOMERULAR FILTRATION RATE (test code = GFR) 78.3 90-95 L The Glomerular Filtration Rate is a calculated parameterbased on serum Creatinine, patient age and sex. GFR valuesless than 60 mL/min/1.73 square meters are indicative ofChronic Kidney Disease. Values less than 15 mL/min/1.73square meters indicate Kidney failure. The calculation forGFR is based on the CKD-EPI (2020) calculation. This formulais race indifferent and is the recommended formula for GFRby the National Kidney Foundation for Adults.The GFR will not calculate if the sex is unknown or if thepatient's age is <18 years. CREATININE (test code = CREAT) 1.1 mg/dL 0.6-1.3 N CALCIUM (test code = CA) 8.5 mg/dL 8.0-10.5 N [id number] 06:27:00* Test Item Value Reference Range Interpretation Comme nts MAGNESIUM (test code = MAG) 1.52 mg/dL 1.6-2.6 L NOTE: NEW NORMAL RANGE CBC W/AUTO [id number] 06:12:00* Test Item Value Reference Range Interpretation Comme nts WHITE BLOOD CELL (test code = WBC) 8.2 x10 3/uL 4.5-11.0 N RED BLOOD CELL (test code = RBC) 3.05 x10 6/uL 4.00-5.60 L HEMOGLOBIN (test code = HGB) 9.1 g/dL 12.5-16.9 L HEMATOCRIT (test code = HCT) 28.3 % 37.5-50.7 L MEAN CELL VOLUME (test code = MCV) 92.8 fL 81.0-99.0 N MEAN CELL HGB (test code = MCH) 29.8 pg 27.0-33.0 N MEAN CELL HGB CONCETRATION (test code = MCHC) 32.2 g/dL 33.0-37.0 L RED CELL DISTRIBUTION WIDTH CV (test code = RDW) 13.2 % 11.5-14.5 N RED CELL DISTRIBUTION WIDTH SD (test code = RDW-SD) 44.2 fL 37.0-54.0 N PLATELET COUNT (test code = PLT) 273 x10 3/uL 150-400 N MEAN PLATELET VOLUME (test c ode = MPV) 10.7 fL 7.0-9.0 H NEUTROPHIL % (test code = NT%) 69.6 % 56.0-77.0 N IMMATURE GRANULOCYTE % (test code = IG%) 0.4 % 0.0-2.0 N LYMPHOCYTE % (test code = LY%) 18.2 % 14.0-32.0 N MONOCYTE % (test code = MO%) 8.4 % 4.8-9.0 N EOSINOPHIL % (test code = EO%) 2.9 % 0.3-3.7 N BASOPHIL % (test code = BA%) 0.5 % 0.0-2.0 N NUCLEATED RBC % (test code = NRBC%) 0.0 % 0-0 N NEUTROPHIL # (test code = NT#) 5.73 x10 3/uL 2.0-7.6 N IMMATURE GRANULOCYTE # (test code = IG#) 0.03 x10 3/uL 0.00-0.03 N LYMPHOCYTE # (test code = LY#) 1.50 x10 3/uL 1.0-3.8 N MONOCYTE # (test code = MO#) 0.69 x10 3/uL 0.1-0.8 N EOSINOPHIL # (test code = EO#) 0.24 x10 3/uL 0.0-0.2 H BASOPHIL # (test code = BA#) 0.04 x10 3/uL 0.0-0.2 N NUCLEATED RBC # (test code = NRBC#) 0.00 x10 3/uL 0.0-0.1 N GLUCOSE [id number] 21:09:00* Test Item Value Reference Range Interpretation Comme nts GLUCOSE BEDSIDE (test code = GLUBED) 211 MG/DL 70-110 H Performed by cer tified od grinder operator at [facility] GLUCOSE [id number] 15:58:00* Test Item Value Reference Range Interpretation Comme nts GLUCOSE BEDSIDE (test code = GLUBED) 185 MG/DL 70-110 H Performed by cer tified od grinder operator at [facility] GLUCOSE [id number] 11:21:00* Test Item Value Reference Range Interpretation Comme nts GLUCOSE BEDSIDE (test code = GLUBED) 181 MG/DL 70-110 H Performed by cer tified od grinder operator at [facility] - XR CHEST 1 [id number] 08:21:00 [facility] 1965 Sex: M FAX: Domenic Banerjee MD [phone] [place]: St: ADM FAX: Viky Barbour Phy [phone] --- Name: JONG RIVAS [facility] : 1965 Age/S: 58/M 59 [place] [address] Unit #: [id number] Loc: GChuck2202 [place] [address] Phys: Viky Mclaughlin [facility] Acct: [id number] Dis Date: Status: ADM IN PHONE #: [phone] Exam Date: 05/03/2023 0646 FAX #: [phone] Reason: Cardiac Surgery Post Op EXAMS: CPTCODE: [id number] XR CHEST 1 V 10080 EXAMINATION: - XR CHEST 1 V CLINICAL INDICATION: Cardiac SurgeryPost Op COMPARISON: Chest radiograph from May 02, 2023. FINDINGS: Right-sided PICC line is stable. Postcardiac changes with median sternotomy wires redemonstrated. No significant change comparedto prior study. Decreased lung volumes with pulmonary vascular congestion and mild atelectasis involving the lung bases, left greater than right. No pneumothorax. Cardiac silhouette is enlarged. Otherwise, cardiac and mediastinal silhouettes are stable. No acute osseous abnormalities. IMPRESSION: No significant change compared to prior study. Postcardiac surgical changes and unchanged pulmonary vascular congestion. Mild atelectasis of the lung bases, left greater than right. at 0821 Reported and signed by: Phillip Butler D.O CC: Domenic Rainey MD; Viky Mclaughlin Technologist: RT Cheryl(Ayla) Trnscrd Date/Time/By: 05/03/2023 (08) : By: Orig Print D/T: S: 05/03/2023 (0824) PAGE 1 Signed ReportBASIC METABOLIC [id number] 03:03:00 * Test Item Value Reference Range Interpretation Comme nts SODIUM (test code = NA) 138 mEq/L 134-147 N POTASSIUM (test code = K) 4.1 mEq/L 3.4-5.0 N CHLORIDE (test code = CL) 104 mEq/L 100-108 N CARBON DIOXIDE (test code = CO2) 28 mEq/l 21-33 N ANION GAP (test code = GAP) 10 0-20 N GLUCOSE (test code = GLU) 147 mg/dL 77-141 H NOTE: NEW NORMAL RANGE BLOOD UREA NITROGEN (test code = BUN) 18 mg/dL 7-25 N NOTE: NEW NORM AL RANGE GLOMERULAR FILTRATION RATE (test code = GFR) 87.8 90-95 L The Glomerular Filtration Rate is a calculated parameterbased on serum Creatinine, patient age and sex. GFR valuesless than 60 mL/min/1.73 square meters are indicative ofChronic Kidney Disease. Values less than 15 mL/min/1.73square meters indicate Kidney failure. The calculation forGFR is based on the CKD-EPI (202) calculation. This formulais race indifferent and is the recommended formula for GFRby the National Kidney Foundation for Adults.The GFR will not calculate if the sex is unknown or if thepatient's age is <18 years. CREATININE (test code = CREAT) 1.0 mg/dL 0.6-1.3 N CALCIUM (test code = CA) 8.7 mg/dL 8.0-10.5 N [id number] 03:03:00* Test Item Value Reference Range Interpretation Comme nts MAGNESIUM (test code = MAG) 1.72 mg/dL 1.6-2.6 N NOTE: NEW NORMAL RANGE CBC W/AUTO [id number] 02:44:00* Test Item Value Reference Range Interpretation Comme nts WHITE BLOOD CELL (test code = WBC) 7.8 x10 3/uL 4.5-11.0 N RED BLOOD CELL (test code = RBC) 3.06 x10 6/uL 4.00-5.60 L HEMOGLOBIN (test code = HGB) 9.1 g/dL 12.5-16.9 L HEMATOCRIT (test code = HCT) 27.9 % 37.5-50.7 L MEAN CELL VOLUME (test code = MCV) 91.2 fL 81.0-99.0 N MEAN CELL HGB (test code = MCH) 29.7 pg 27.0-33.0 N MEAN CELL HGB CONCETRATION (test code = MCHC) 32.6 g/dL 33.0-37.0 L RED CELL DISTRIBUTION WIDTH CV (test code = RDW) 13.2 % 11.5-14.5 N RED CELL DISTRIBUTION WIDTH SD (test code = RDW-SD) 43.5 fL 37.0-54.0 N PLATELET COUNT (test code = PLT) 256 x10 3/uL 150-400 N MEAN PLATELET VOLUME (test c ode = MPV) 10.2 fL 7.0-9.0 H NEUTROPHIL % (test code = NT%) 68.5 % 56.0-77.0 N IMMATURE GRANULOCYTE % (test code = IG%) 0.6 % 0.0-2.0 N LYMPHOCYTE % (test code = LY%) 20.3 % 14.0-32.0 N MONOCYTE % (test code = MO%) 7.8 % 4.8-9.0 N EOSINOPHIL % (test code = EO%) 2.4 % 0.3-3.7 N BASOPHIL % (test code = BA%) 0.4 % 0.0-2.0 N NUCLEATED RBC % (test code = NRBC%) 0.0 % 0-0 N NEUTROPHIL # (test code = NT#) 5.37 x10 3/uL 2.0-7.6 N IMMATURE GRANULOCYTE # (test code = IG#) 0.05 x10 3/uL 0.00-0.03 H LYMPHOCYTE # (test code = LY#) 1.59 x10 3/uL 1.0-3.8 N MONOCYTE # (test code = MO#) 0.61 x10 3/uL 0.1-0.8 N EOSINOPHIL # (test code = EO#) 0.19 x10 3/uL 0.0-0.2 N BASOPHIL # (test code = BA#) 0.03 x10 3/uL 0.0-0.2 N NUCLEATED RBC # (test code = NRBC#) 0.00 x10 3/uL 0.0-0.1 N GLUCOSE [id number] 19:54:00* Test Item Value Reference Range Interpretation Comme [facility] GLU[facility]SE BEDSIDE (test code = GLUBED) 160 MG/DL 70-110 H Performed by cer tified od grinder operator at [facility] GLUCOSE [id number] 16:59:00* Test Item Value Reference Range Interpretation Comme [facility] GLUCOSE BEDSIDE (test code = GLUBED) 109 MG/DL 70-110 N Performed by cer tified od grinder operator at [facility] - DUP VEIN [id number] 11:52:00 [facility] 1965 Sex: M Name: JONG RIVSA [place] : 1965 Age/S: 58 / M [address] [place] [address] Bl Unit #: [id number] Loc: [place] [address] Phys: Viky Mclaughlin Acct: [id number] Dis Date: Status: ADM IN PHONE #: [phone] Exam Date: 05/02/2023 113 FAX #: [phone] Reason: R/O DVT EXAMS: CPT CODE: [id number] DUP VEIN ANALI 61837 EXAM: - DUP VEIN ANALI HISTORY: R/O DVT Location: T18 TECHNIQUE: Grayscale real-time B-mode imaging with color flow and spectral flow Doppler analysis was performed of bilateral lower extremities. COMPARISON: None available time of interpretation. FINDINGS: There is normal compressibility with no evidence of thrombus in the visualized venous structures of bilateral lower extremities. The vessels imaged include bilateral common femoral, superficial femoral, popliteal, proximal profunda femoral, and greater saphenous veins. The peroneal, posterior tibial and anterior tibial veins were seen as well. IMPRESSION: 1. No evidence of deep venous thrombosis within the visualized venous structures of bilateral lower extremities. at 1152 Reported and signed by: Ramon Smiley M.D. CC: Domenic Rainey MD; Viky Mclaughlin Technologist: Radha Francis RDMS(AB) Trnscb Date/Time: 05/02/2023 (1152) [email or web address] Orig Print D/T: S: 05/02/2023 (1155) Probe: PAGE 1 Signed ReportGLUCOSE [id number] 11:51:00 * Test Item Value Reference Range Interpretation Comme nts GLUCOSE BEDSIDE (test code = GLUBED) 151 MG/DL 70-110 H Performed by mila alexandra od grinder operator at [facility] - XR CHEST 1 [id number] 08:25:00 [facility] 1965 Sex: M FAX: Domenic Banerjee MD [phone] [place]: St: ADM FAX: Viky Barbour [facility] [phone] -- Name: JONG RIVAS [facility] : 1965 Age/S: 58/M [address] [place] [address] Unit #: [id number] Loc: G.[address] [place] [address] Phys: Viky Mclaughlin [facility] Acct: [id number] Dis Date: Status: ADM IN PHONE #: [phone] Exam Date: 05/02/2023 0500 FAX #: [phone] Reason: Cardiac Surgery Post Op EXAMS: CPT CODE: [id number] XR CHEST 1 V 44723 EXAMINATION: - XR CHEST 1 V HISTORY: Postop COMPARISON: X-ray performed the previous day LOCATION CODE: C3 FINDINGS: Single frontal view of the chest is submitted for evaluation. Right- sided PICC line is unchanged. Enlarged cardiac silhouette and pulmonary vasc ulature congestion are stable, as are mild bibasilar linear changes. No new abnormalities are seen.. IMPRESSION: No significant change from the prior at 0825 Reported and signed by: Anu Amador M.D. CC: Domenic Rainey MD; Viky Mclaughlin Technologist: Winsome Minor RT(R) Trnscrd Date/Time/By: 05/02/2023 (0894) : By: [email or web address] Orig Print D/T: S: 05/02/2023 (0105) PAGE 1 Signed ReportGLUCOSE [id number] 07:47:00* Test Item Value Reference Range Interpretation Comme nts GLUCOSE BEDSIDE (test code = GLUBED) 154 MG/DL 70-110 H Performed by cer tified od grinder operator at [facility] CBC W/AUTO [id number] 03:13:00* Test Item Value Reference Range Interpretation Comme nts WHITE BLOOD CELL (test code = WBC) 9.1 x10 3/uL 4.5-11.0 N RED BLOOD CELL (test code = RBC) 3.33 x10 6/uL 4.00-5.60 L HEMOGLOBIN (test code = HGB) 9.8 g/dL 12.5-16.9 L HEMATOCRIT (test code = HCT) 30.2 % 37.5-50.7 L MEAN CELL VOLUME (test code = MCV) 90.7 fL 81.0-99.0 N MEAN CELL HGB (test code = MCH) 29.4 pg 27.0-33.0 N MEAN CELL HGB CONCETRATION (test code = MCHC) 32.5 g/dL 33.0-37.0 L RED CELL DISTRIBUTION WIDTH CV (test code = RDW) 13.2 % 11.5-14.5 N RED CELL DISTRIBUTION WIDTH SD (test code = RDW-SD) 43.8 fL 37.0-54.0 N PLATELET COUNT (test code = PLT) 292 x10 3/uL 150-400 N MEAN PLATELET VOLUME (test c ode = MPV) 10.3 fL 7.0-9.0 H NEUTROPHIL % (test code = NT%) 71.0 % 56.0-77.0 N IMMATURE GRANULOCYTE % (test code = IG%) 0.7 % 0.0-2.0 N LYMPHOCYTE % (test code = LY%) 17.5 % 14.0-32.0 N MONOCYTE % (test code = MO%) 7.4 % 4.8-9.0 N EOSINOPHIL % (test code = EO%) 2.8 % 0.3-3.7 N BASOPHIL % (test code = BA%) 0.6 % 0.0-2.0 N NUCLEATED RBC % (test code = NRBC%) 0.0 % 0-0 N NEUTROPHIL # (test code = NT#) 6.44 x10 3/uL 2.0-7.6 N IMMATURE GRANULOCYTE # (test code = IG#) 0.06 x10 3/uL 0.00-0.03 H LYMPHOCYTE # (test code = LY#) 1.59 x10 3/uL 1.0-3.8 N MONOCYTE # (test code = MO#) 0.67 x10 3/uL 0.1-0.8 N EOSINOPHIL # (test code = EO#) 0.25 x10 3/uL 0.0-0.2 H BASOPHIL # (test code = BA#) 0.05 x10 3/uL 0.0-0.2 N NUCLEATED RBC # (test code = NRBC#) 0.00 x10 3/uL 0.0-0.1 N SED RATE [id number] 03:13:00* Test Item Value Reference Range Interpretation Comme nts SED RATE WESTERGREN (test co de = SEDW) 106 mm/hr 0-15 H C REACTIVE [id number] 03:08:00* Test Item Value Reference Range Interpretation Comme nts C REACTIVE PROTEIN (test cod e = CRP) 77.0 mg/L <10.0 H BASIC METABOLIC [id number] 03:06:00* Test Item Value Reference Range Interpretation Comme nts SODIUM (test code = NA) 133 mEq/L 134-147 L POTASSIUM (test code = K) 4.0 mEq/L 3.4-5.0 N CHLORIDE (test code = CL) 105 mEq/L 100-108 N CARBON DIOXIDE (test code = CO2) 26 mEq/l 21-33 N ANION GAP (test code = GAP) 6 0-20 N GLUCOSE (test code = GLU) 159 mg/dL 77-141 H NOTE: NEW NORMAL RANGE BLOOD UREA NITROGEN (test code = BUN) 19 mg/dL 7-25 N NOTE: NEW NORM AL RANGE GLOMERULAR FILTRATION RATE (test code = GFR) 99.6 90-95 H The Glomerular Filtration Rate is a calculated parameterbased on serum Creatinine, patient age and sex. GFR valuesless than 60 mL/min/1.73 square meters are indicative ofChronic Kidney Disease. Values less than 15 mL/min/1.73square meters indicate Kidney failure. The calculation forGFR is based on the CKD-EPI (2021) calculation. This formulais race indifferent and is the recommended formula for GFRby the National Kidney Foundation for Adults.The GFR will not calculate if the sex is unknown or if thepatient's age is <18 years. CREATININE (test code = CREAT) 0.9 mg/dL 0.6-1.3 N CALCIUM (test code = CA) 8.7 mg/dL 8.0-10.5 N [id number] 03:06:00* Test Item Value Reference Range Interpretation Comme nts MAGNESIUM (test code = MAG) 1.84 mg/dL 1.6-2.6 N NOTE: NEW NORMAL RANGE GLUCOSE [id number] 19:42:00* Test Item Value Reference Range Interpretation Comme nts GLUCOSE BEDSIDE (test code = GLUBED) 163 MG/DL 70-110 H Performed by cer tified od grinder operator at [facility] BASIC METABOLIC [id number] 15:49:00* Test Item Value Reference Range Interpretation Comme nts SODIUM (test code = NA) 136 mEq/L 134-147 N POTASSIUM (test code = K) 4.0 mEq/L 3.4-5.0 N CHLORIDE (test code = CL) 104 mEq/L 100-108 N CARBON DIOXIDE (test code = CO2) 26 mEq/l 21-33 N ANION GAP (test code = GAP) 11 0-20 N GLUCOSE (test code = GLU) 149 mg/dL 77-141 H NOTE: NEW NORMAL RANGE BLOOD UREA NITROGEN (test code = BUN) 19 mg/dL 7-25 N NOTE: NEW NORM AL RANGE GLOMERULAR FILTRATION RATE (test code = GFR) 87.8 90-95 L The Glomerular Filtration Rate is a calculated parameterbased on serum Creatinine, patient age and sex. GFR valuesless than 60 mL/min/1.73 square meters are indicative ofChronic Kidney Disease. Values less than 15 mL/min/1.73square meters indicate Kidney failure. The calculation forGFR is based on the CKD-EPI (2021) calculation. This formulais race indifferent and is the recommended formula for GFRby the National Kidney Foundation for Adults.The GFR will not calculate if the sex is unknown or if thepatient's age is <18 years. CREATININE (test code = CREAT) 1.0 mg/dL 0.6-1.3 N CALCIUM (test code = CA) 8.5 mg/dL 8.0-10.5 N [id number] 15:49:00* Test Item Value Reference Range Interpretation Comme nts PHOSPHOROUS (test code = PHOS) 3.0 MG/DL 2.5-4.9 N [id number] 15:49:00* Test Item Value Reference Range Interpretation Comme nts MAGNESIUM (test code = MAG) 1.63 mg/dL 1.6-2.6 NOTE: NEW NORMAL RANGE GLUCOSE [id number] 15:38:00* Test Item Value Reference Range Interpretation Comme nts GLUCOSE BEDSIDE (test code = GLUBED) 131 MG/DL 70-110 H Performed by cer tified od grinder operator at [facility] GLUCOSE [id number] 11:22:00* Test Item Value Reference Range Interpretation Comme nts GLUCOSE BEDSIDE (test code = GLUBED) 221 MG/DL 70-110 H Performed by [facility] tified od grinder operator at [facility] GLUCOSE [id number] 09:33:00* Test Item Value Reference Range Interpretation Comme nts GLUCOSE BEDSIDE (test code = GLUBED) 170 MG/DL 70-110 H Performed by [facility] tifMindmancer od grinder operator at [facility] - XR CHEST 1 [id number] 08:32:00 [facility] 1965 Sex: M FAX: Domenic Banerjee MD [phone] [place]: St: ADM FAX: Viky Barbour y [phone] --- Name: JONG RIVAS [facility] : 1965 Age/S: 58/M [address] [place] [address] Blvd Unit #: [id number] Loc: [address] [address] Phys: Viky Mclaughlin Physic Acct: [id number] Dis Date: Status: ADM IN PHONE #: [phone] Exam Date: 05/01/2023720 FAX #: [phone] Reason: Cardiac Surgery Post Op EXAMS: CPT CODE: [id number] XR CHEST 1 V 26681 H 20 TIME OF STUDY: 05/01/2023 5:00 AM REASON FOR EXAM: Cardiac Surgery Post Op COMPARISON: 1 day prior. FINDINGS: AP view of the chest was obtained. Support devices: Stable support devices. Lungs: Minimal left basilar atelectasis with low lung volumes. Mild ce ntral vascular congestion. Pleura: No large pleural effusion or pneumothorax. Heart and Mediastinum: Stable cardiomegaly and calcific atherosclerosis. Bones: Post CABG changes are evident. The mediansternotomy wires are in the expected configuration. IMPRESSION: 1. Expected post-CABG changes with mild central vascular congestion. at 0832 Reported and signed by: Silas Do M.D. CC: Domenic Rainey MD; Viky Mclaughlin Technologist: RT Félix(R) Trnscrd Date/Time/By: 05/01/2023 (0832) : By: [email or web address] Orig Print D/T: S:05/01/2023 (3733) PAGE 1 Signed ReportBASIC METABOLIC [id number] 02:59:00* Test Item Value Reference Range Interpretation Comme nts SODIUM (test code = NA) 134 mEq/L 134-147 N POTASSIUM (test code = K) 4.1 mEq/L 3.4-5.0 N CHLORIDE (test code = CL) 105 mEq/L 100-108 N CARBON DIOXIDE (test code = CO2) 24 mEq/l 21-33 N ANION GAP (test code = GAP) 9 0-20 N GLUCOSE (test code = GLU) 182 mg/dL 77-141 H NOTE: NEW NORMAL RANGE BLOOD UREA NITROGEN (test code = BUN) 18 mg/dL 7-25 N NOTE: NEW NORM AL RANGE GLOMERULAR FILTRATION RATE (test code = GFR) 99.6 90-95 H The Glomerular Filtration Rate is a calculated parameterbased on serum Creatinine, patient age and sex. GFR valuesless than 60 mL/min/1.73 square meters are indicative ofChronic Kidney Disease. Values less than 15 mL/min/1.73square meters indicate Kidney failure. The calculation forGFR is based on the CKD-EPI (2020) calculation. This formulais race indifferent and is the recommended formula for GFRby the National Kidney Foundation for Adults.The GFR will not calculate if the sex is unknown or if thepatient's age is <18 years. CREATININE (test code = CREAT) 0.9 mg/dL 0.6-1.3 N CALCIUM (test code = CA) 8.8 mg/dL 8.0-10.5 N [id number] 02:59:00* Test Item Value Reference Range Interpretation Comme nts MAGNESIUM (test code = MAG) 2.03 mg/dL 1.6-2.6 N NOTE: NEW NORMAL RANGE CBC W/AUTO [id number] 02:43:00* Test Item Value Reference Range Interpretation Comme nts WHITE BLOOD CELL (test code = WBC) 9.4 x10 3/uL 4.5-11.0 N RED BLOOD CELL (test code = RBC) 3.18 x10 6/uL 4.00-5.60 L HEMOGLOBIN (test code = HGB) 9.4 g/dL 12.5-16.9 L HEMATOCRIT (test code = HCT) 29.1 % 37.5-50.7 L MEAN CELL VOLUME (test code = MCV) 91.5 fL 81.0-99.0 N MEAN CELL HGB (test code = MCH) 29.6 pg 27.0-33.0 N MEAN CELL HGB CONCETRATION (test code = MCHC) 32.3 g/dL 33.0-37.0 L RED CELL DISTRIBUTION WIDTH CV (test code = RDW) 13.1 % 11.5-14.5 N RED CELL DISTRIBUTION WIDTH SD (test code = RDW-SD) 43.4 fL 37.0-54.0 N PLATELET COUNT (test code = PLT) 239 x10 3/uL 150-400 N MEAN PLATELET VOLUME (test c ode = MPV) 10.7 fL 7.0-9.0 H NEUTROPHIL % (test code = NT%) 73.4 % 56.0-77.0 N IMMATURE GRANULOCYTE % (test code = IG%) 0.6 % 0.0-2.0 N LYMPHOCYTE % (test code = LY%) 14.7 % 14.0-32.0 N MONOCYTE % (test code = MO%) 8.3 % 4.8-9.0 N EOSINOPHIL % (test code = EO%) 2.5 % 0.3-3.7 N BASOPHIL % (test code = BA%) 0.5 % 0.0-2.0 N NUCLEATED RBC % (test code = NRBC%) 0.0 % 0-0 N NEUTROPHIL # (test code = NT#) 6.86 x10 3/uL 2.0-7.6 N IMMATURE GRANULOCYTE # (test code = IG#) 0.06 x10 3/uL 0.00-0.03 H LYMPHOCYTE # (test code = LY#) 1.38 x10 3/uL 1.0-3.8 N MONOCYTE # (test code = MO#) 0.78 x10 3/uL 0.1-0.8 N EOSINOPHIL # (test code = EO#) 0.23 x10 3/uL 0.0-0.2 H BASOPHIL # (test code = BA#) 0.05 x10 3/uL 0.0-0.2 N NUCLEATED RBC # (test code = NRBC#) 0.00 x10 3/uL 0.0-0.1 N BASIC METABOLIC [id number] 20:41:00* Test Item Value Reference Range Interpretation Comme nts SODIUM (test code = NA) 134 mEq/L 134-147 N POTASSIUM (test code = K) 3.6 mEq/L 3.4-5.0 N CHLORIDE (test code = CL) 109 mEq/L 100-108 H CARBON DIOXIDE (test code = CO2) 21 mEq/l 21-33 N ANION GAP (test code = GAP) 8 0-20 N GLUCOSE (test code = GLU) 157 mg/dL 77-141 H NOTE: NEW NORMAL RANGE BLOOD UREA NITROGEN (test code = BUN) 20 mg/dL 7-25 N NOTE: NEW NORM AL RANGE GLOMERULAR FILTRATION RATE (test code = GFR) 87.8 90-95 L The Glomerular Filtration Rate is a calculated parameterbased on serum Creatinine, patient age and sex. GFR valuesless than 60 mL/min/1.73 square meters are indicative ofChronic Kidney Disease. Values less than 15 mL/min/1.73square meters indicate Kidney failure. The calculation forGFR is based on the CKD-EPI (2020) calculation. This formulais race indifferent and is the recommended formula for GFRby the National Kidney Foundation for Adults.The GFR will not calculate if the sex is unknown or if thepatient's age is <18 years. CREATININE (test code = CREAT) 1.0 mg/dL 0.6-1.3 N CALCIUM (test code = CA) 9.0 mg/dL 8.0-10.5 N [id number] 20:41:00* Test Item Value Reference Range Interpretation Comme nts MAGNESIUM (test code = MAG) 1.80 mg/dL 1.6-2.6 N NOTE: NEW NORMAL RANGE CALCIUM [id number] 20:41:00* Test Item Value Reference Range Interpretation Comme nts CALCIUM IONIZED (test code = MASSIMO) 1.09 MMOL/L 1.09-1.30 N GLUCOSE [id number] 19:14:00* Test Item Value Reference Range Interpretation Comme nts GLUCOSE BEDSIDE (test code = GLUBED) 157 MG/DL 70-110 H Performed by cer tified od grinder operator at [facility] GLUCOSE [id number] 16:44:00* Test Item Value Reference Range Interpretation Comme nts GLUCOSE BEDSIDE (test code = GLUBED) 188 MG/DL 70-110 H Performed by cer tified od grinder operator at [facility] GLUCOSE [id number] 13:54:00* Test Item Value Reference Range Interpretation Comme nts GLUCOSE BEDSIDE (test code = GLUBED) 217 MG/DL 70-110 H Performed by cer tified od grinder operator at [facility] GLUCOSE [id number] 08:29:00* Test Item Value Reference Range Interpretation Comme nts GLUCOSE BEDSIDE (test code = GLUBED) 181 MG/DL 70-110 H Performed by cer tified od grinder operator at [facility] - XR CHEST 1 [id number] 08:14:00 [facility] 1965 Sex: M FAX: Domenic Banerjee MD [phone] [place]: St: ADM FAX: Viky Barbour [facility] [phone] --- Name: JONG RIVAS [facility] : 1965 Age/S: 58/M [address] [place] [address] Unit #: [id number] Loc: G.[address] [place] [address] Phys: Viky Mclaughlin [facility] Acct: [id number] Dis Date: Status: ADM IN PHONE #: [phone] Exam Date: 04/30/2023 0746 FAX #: [phone] Reason: Cardiac Surgery Post Op EXAMS: CPTCODE: [id number] XR CHEST 1 V 72769 H 20 TIME OF STUDY: 04/30/2023 5:00 AM REASON FOR EXAM: Cardiac Surgery Post Op COMPARISON: 1 day prior. FINDINGS: AP view of the chest was obtained. Support devices: Mediastinal drains have been removed. Stable remaining support devices. Lungs: Minimal left basilar atelectasis with low lung volumes. Pleura: No large pleural effusion or pneumothorax. Heart and Mediastinum: Stable cardiomegaly and calcific atherosclerosis. Bones: Post CABG changes are evident.The median sternotomy wires are in the expected configuration. . IMPRESSION: 1. Expected post-CABG changes with interval removal of the mediastinal drains. No pneumothorax. at 0814 Reported and signed by: Silas Do M.D. CC: Domenic Rainey MD; Viky Mclaughlin Technologist: RT Ju(Ayla) Trnscrd Date/Time/By: 04/30/2023 (0814) : By: HelderSI1 Orig Print D/T: S: 04/30/2023 (0865) PAGE 1 Signed ReportBASIC METABOLIC [id number] 03:34:00* Test Item Value Reference Range Interpretation Comme nts SODIUM (test code = NA) 132 mEq/L 134-147 L POTASSIUM (test code = K) 4.2 mEq/L 3.4-5.0 N CHLORIDE (test code = CL) 105 mEq/L 100-108 N CARBON DIOXIDE (test code = CO2) 20 mEq/l 21-33 L ANION GAP (test code = GAP) 11 0-20 N GLUCOSE (test code = GLU) 205 mg/dL 77-141 H NOTE: NEW NORMAL RANGE BLOOD UREA NITROGEN (test code = BUN) 16 mg/dL 7-25 N NOTE: NEW NORM AL RANGE GLOMERULAR FILTRATION RATE (test code = GFR) 99.6 90-95 H The Glomerular Filtration Rate is a calculated parameterbased on serum Creatinine, patient age and sex. GFR valuesless than 60 mL/min/1.73 square meters are indicative ofChronic Kidney Disease. Values less than 15 mL/min/1.73square meters indicate Kidney failure. The calculation forGFR is based on the CKD-EPI (2020) calculation. This formulais race indifferent and is the recommended formula for GFRby the National Kidney Foundation for Adults.The GFR will not calculate if the sex is unknown or if thepatient's age is <18 years. CREATININE (test code = CREAT) 0.9 mg/dL 0.6-1.3 N CALCIUM (test code = CA) 8.8 mg/dL 8.0-10.5 N COMMENTS: POD #1HEPATIC FUNCTION [id number] 03:34:00* Test Item Value Reference Range Interpretation Comme nts TOTAL PROTEIN (test code = PROT) 6.5 g/dL 6.4-8.2 N ALBUMIN (test code = ALB) 3.20 g/dL 3.4-5.0 L BILIRUBIN TOTAL (test code = BILT) 0.40 mg/dL 0.0-1.0 N BILIRUBIN DIRECT (test code = BILD) 0.20 MG/DL 0.1-0.3 NOTE: NEW NORMAL RANGE BILIRUBIN INDIRECT (test code = BILIND) 0.20 MG/DL SGOT/AST (test code = AST) 23 IUnit/L 8-34 N NOTE: NEW NORMAL RANGE SGPT/ALT (test code = ALT) 19 IUnit/L 10-49 N NOTE: NEW NORMAL RANGE ALKALINE PHOSPHATASE TOTAL (test code = ALKP) 62 IUnit/L 20-125 N COMMENTS: POD #[id number] 03:34:00* Test Item Value Reference Range Interpretation Comme nts MAGNESIUM (test code = MAG) 1.87 mg/dL 1.6-2.6 N NOTE: NEW NORMAL RANGE COMMENTS: POD #1CALCIUM [id number] 03:25:00* Test Item Value Reference Range Interpretation Comme nts CALCIUM IONIZED (test code = MASSIMO) 1.05 MMOL/L 1.09-1.30 L CBC W/AUTO [id number] 03:06:00* Test Item Value Reference Range Interpretation Comme nts WHITE BLOOD CELL (test code = WBC) 13.1 x10 3/uL 4.5-11.0 H RED BLOOD CELL (test code = RBC) 3.41 x10 6/uL 4.00-5.60 L HEMOGLOBIN (test code = HGB) 10.0 g/dL 12.5-16.9 L HEMATOCRIT (test code = HCT) 31.1 % 37.5-50.7 L MEAN CELL VOLUME (test code = MCV) 91.2 fL 81.0-99.0 N MEAN CELL HGB (test code = MCH) 29.3 pg 27.0-33.0 N MEAN CELL HGB CONCETRATION (test code = MCHC) 32.2 g/dL 33.0-37.0 L RED CELL DISTRIBUTION WIDTH CV (test code = RDW) 13.1 % 11.5-14.5 N RED CELL DISTRIBUTION WIDTH SD (test code = RDW-SD) 43.5 fL 37.0-54.0 N PLATELET COUNT (test code = PLT) 249 x10 3/uL 150-400 N MEAN PLATELET VOLUME (test code = MPV) 10.8 fL 7.0-9.0 H NEUTROPHIL % (test code = NT%) 78.3 % 56.0-77.0 H IMMATURE GRANULOCYTE % (test code = IG%) 0.6 % 0.0-2.0 N LYMPHOCYTE % (test code = LY%) 11.3 % 14.0-32.0 L MONOCYTE % (test code = MO%) 8.3 % 4.8-9.0 N EOSINOPHIL % (test code = EO%) 1.3 % 0.3-3.7 N BASOPHIL % (test code = BA%) 0.2 % 0.0-2.0 N NUCLEATED RBC % (test code = NRBC%) 0.0 % 0-0 N NEUTROPHIL # (test code = NT#) 10.28 x10 3/uL 2.0-7.6 H IMMATURE GRANULOCYTE # (test code = IG#) 0.08 x10 3/uL 0.00-0.03 H LYMPHOCYTE # (test code = LY#) 1.49 x10 3/uL 1.0-3.8 N MONOCYTE # (test code = MO#) 1.09 x10 3/uL 0.1-0.8 H EOSINOPHIL # (test code = EO#) 0.17 x10 3/uL 0.0-0.2 N BASOPHIL # (test code = BA#) 0.03 x10 3/uL 0.0-0.2 N NUCLEATED RBC # (test code = NRBC#) 0.00 x10 3/uL 0.0-0.1 N GLUCOSE [id number] 19:44:00* Test Item Value Reference Range Interpretation Comme nts GLUCOSE BEDSIDE (test code = GLUBED) 267 MG/DL 70-110 H Performed by cer tified od grinder operator at [facility] GLUCOSE [id number] 17:26:00* Test Item Value Reference Range Interpretation Comme nts GLUCOSE BEDSIDE (test code = GLUBED) 216 MG/DL 70-110 H Performed by cer tified od grinder operator at [facility] BASIC METABOLIC [id number] 15:00:00* Test Item Value Reference Range Interpretation Comme nts SODIUM (test code = NA) 137 mEq/L 134-147 N POTASSIUM (test code = K) 3.8 mEq/L 3.4-5.0 N CHLORIDE (test code = CL) 106 mEq/L 100-108 N CARBON DIOXIDE (test code = CO2) 21 mEq/l 21-33 N ANION GAP (test code = GAP) 14 0-20 N GLUCOSE (test code = GLU) 246 mg/dL 77-141 H NOTE: NEW NORMAL RANGE BLOOD UREA NITROGEN (test code = BUN) 24 mg/dL 7-25 N NOTE: NEW NORM AL RANGE GLOMERULAR FILTRATION RATE (test code = GFR) 87.8 90-95 L The Glomerular Filtration Rate is a calculated parameterbased on serum Creatinine, patient age and sex. GFR valuesless than 60 mL/min/1.73 square meters are indicative ofChronic Kidney Disease. Values less than 15 mL/min/1.73square meters indicate Kidney failure. The calculation forGFR is based on the CKD-EPI (2020) calculation. This formulais race indifferent and is the recommended formula for GFRby the National Kidney Foundation for Adults.The GFR will not calculate if the sex is unknown or if thepatient's age is <18 years. CREATININE (test code = CREAT) 1.0 mg/dL 0.6-1.3 N CALCIUM (test code = CA) 8.5 mg/dL 8.0-10.5 N [id number] 15:00:00* Test Item Value Reference Range Interpretation Comme nts PHOSPHOROUS (test code = PHOS) 1.9 MG/DL 2.5-4.9 L [id number] 15:00:00* Test Item Value Reference Range Interpretation Comme nts MAGNESIUM (test code = MAG) 1.84 mg/dL 1.6-2.6 NOTE: NEW NORMAL RANGE [id number] 13:08:00* Test Item Value Reference Range Interpretation Comments SURGICAL (test code = SR) RUN DATE: 04/29/23 [place] - LAB PAGE 1 RUN TIME: 1308 Specimen Inquiry RUN USER: INTERFACE PATIENT: JONG RIVAS LOC: DHAVAL U #: [id number] AGE/SX: 58/M ROOM: [facility] RE04/19/23REG DR: Domenic Rainey MD : 67 BED: 1 DIS: STATUS: ADM IN TLOC: SPEC #: [id number] RECD: 04/28/23 STATUS: TERRA BUSTAMANTE #: [id number] KIEL: 04/27/23- SUBM DR: Domenic Rainey MD ENTERED: 04/28/23 SP TYPE: SURGICAL OTHR DR: Chinta,Viswanath MD Janes Amador MD, Jawdat DPM Hammoudeh, Fadi MD Kamana, Mallika MD Kaul,Vlad Iniguez,Temo De La Cruz,Radha Guerrero,Charissa Rousseau ProviderORDERED: [id number], ANATOMIC SPEC COPIES TO: Domenic Rainey MD [address] [place] [address]. [address] [place] [address] Nathen Wood MD [address] [place] [address] [address] [place] [address] Janes Amador MD [address] [facility] [address] [place] [address] Betty Moe DPM [address] [facility] [address] [place] [phone] Javier Marques MD [address] [place] [address] Kaci Longo MD [address] [place] [address] CONTINUED ON NEXT PAGE RUN DATE: 04/29/23 [facility] PAGE 2 RUN TIME: 1308 Specimen Inquiry RUN USER: INTERFACE SPEC #: [id number] PATIENT: JONG RIVAS #[id number] (Continued) - COPIES TO: (Continued) Vlad Lay MD [address] [place] [address] Temo Iniguez MD [address] [place] [phone] Radha De La Cruz MD [address] [place] [address] Charissa Guerrero MD [address] [facility] [address] [place] [id number] Undefined Provider PROCEDURES: 74572 (04/28/23-110) TISSUES: A. ATRIUM - LEFT ATRIAL APPENDAGE CLINICAL HISTORY SAME FINAL DIAGNOSIS Left atrial appendage, segment: Moderate intimal thickening and ischemic changes. GROSS DESCRIPTION Received in formalin and designated left atrial appendage is 1 segment of pink-spears yellowsoft tissue measuring 1.9 cm in largest dimension. Entirely submitted A. Technical component performed at [facility],[address] [place] [address] Unless gross only, the diagnosis is based upon microscopic examination.Immunohistochemistry: This test was developed and its performance characteristicsdetermined by this laboratory. It has not been approved nor does it need approvalby the [place] FDA. Appropriate positive and negative controls are reviewed and judgedto be acceptable for performedimmunohistochemistry and/or special stains. This laboratory CONTINUED ON NEXT PAGE RUN DATE: 04/29/23 [place] - LAB PAGE 3 RUN TIME: 1308 Specimen Inquiry RUN USER: INTERFACE SPEC #: [id number] PATIENT: JONG RIVAS #[id number] (Continued) - DANNY AMEZCUA (Continued) is certified under the Clinical Laboratory Improvement Amendments (CLIA-88) as qualified toperform high complexity clinical laboratory testing. CLINICAL INFORMATION CAD, HTM, DM Signed SIGNATURE ON FILE Poornima Moreland 04/29/23 1308 END OF REPORT GLUCOSE [id number] 12:30:00* Test Item Value Reference Range Interpretation Comme [facility] GLUCOSE BEDSIDE (test code = GLUBED) 171 MG/DL 70-110 H Performed by mila bell at [facility] GLUCOSE [id number] 10:20:00* Test Item Value Reference Range Interpretation Comme nts GLUCOSE BEDSIDE (test code = GLUBED) 186 MG/DL 70-110 H Performed by cer tified od grinder operator at [facility] GLUCOSE [id number] 08:14:00* Test Item Value Reference Range Interpretation Comme nts GLUCOSE BEDSIDE (test code = GLUBED) 184 MG/DL 70-110 H Performed by cer tified od grinder operator at [facility] - XR CHEST 1 [id number] 08:11:00 [facility] 1965 Sex: M FAX: Domenic Banerjee MD [phone] [place]: St: [facility] FAX: Viky Barbour [facility] [phone] --- Name: JONG RIVAS [facility] : 1965 Age/S: 58/M [address] [place] [address] Unit #: [id number] Loc: G.[address] [place] [address] Phys: Viky Mclaughlin Acct: [id number] Dis Date: Status: ADM IN PHONE #: [phone] Exam Date: 04/29/2023 0654 FAX #: [phone] Reason: Cardiac Surgery Post Op EXAMS: CPT CODE: [id number] XR CHEST 1 V 73853 EXAM: - XR CHEST 1 V CLINICAL HISTORY: Cardiac Surgery Post Op TECHNIQUE: Single frontal view. COMPARISON: Chest radiographs 04/28/2023 LOCATION: C4 FINDINGS: Sternotomy wires and mediastinal surgical clips are present. Left lung base chest tube and right-sidedPICC line are unchanged. The trachea appears normal. The mediastinum and cardiac silhouette are within normal limits for size. Signs of trace vascular congestion and central pulmonary edema. Low lungvolumes. Suspect trace pleural effusions, more pronounced on the left. Visualized soft tissues and o sseous structures are grossly unremarkable. IMPRESSION: Signs of trace vascular congestion and central pulmonary edema. Suspect trace bilateral pleural effusions. Stable lines and tubes. at 0811 Reported and signed by: Adilson Ordaz D.O. CC: Domenic Rainey MD; Viky Mclaughlin Technologist: RT Irena(R) Trnscrd Date/Time/By: 04/29/2023 (810) : By: HelderJW22 Orig Print D/T: S: 04/29/2023 (0814) PAGE 1 Signed ReportGLUCOSE [id number] 06:36:00* Test Item Value Reference Range Interpretation Comme nts GLUCOSE BEDSIDE (test code = GLUBED) 199 MG/DL 70-110 H Performed by mila alexandra od grinder operator at [facility] BASIC METABOLIC [id number] 03:28:00* Test Item Value Reference Range Interpretation Comme nts SODIUM (test code = NA) 135 mEq/L 134-147 N POTASSIUM (test code = K) 4.2 mEq/L 3.4-5.0 N CHLORIDE (test code = CL) 108 mEq/L 100-108 N CARBON DIOXIDE (test code = CO2) 21 mEq/l 21-33 N ANION GAP (test code = GAP) 11 0-20 N GLUCOSE (test code = GLU) 241 mg/dL 77-141 H NOTE: NEW NORMAL RANGE BLOOD UREA NITROGEN (test code = BUN) 24 mg/dL 7-25 N NOTE: NEW NORM AL RANGE GLOMERULAR FILTRATION RATE (test code = GFR) 78.3 90-95 L The Glomerular Filtration Rate is a calculated parameterbased on serum Creatinine, patient age and sex. GFR valuesless than 60 mL/min/1.73 square meters are indicative ofChronic Kidney Disease. Values less than 15 mL/min/1.73square meters indicate Kidney failure. The calculation forGFR is based on the CKD-EPI (202) calculation. This formulais race indifferent and is the recommended formula for GFRby the National Kidney Foundation for Adults.The GFR will not calculate if the sex is unknown or if thepatient's age is <18 years. CREATININE (test code = CREAT) 1.1 mg/dL 0.6-1.3 N CALCIUM (test code = CA) 8.9 mg/dL 8.0-10.5 N COMMENTS: POD #1HEPATIC FUNCTION [id number] 03:28:00* Test Item Value Reference Range Interpretation Comme nts TOTAL PROTEIN (test code = PROT) 6.6 g/dL 6.4-8.2 N ALBUMIN (test code = ALB) 3.50 g/dL 3.4-5.0 N BILIRUBIN TOTAL (test code = BILT) 0.50 mg/dL 0.0-1.0 N BILIRUBIN DIRECT (test code = BILD) 0.30 MG/DL 0.1-0.3 NOTE: NEW NORMAL RANGE BILIRUBIN INDIRECT (test code = BILIND) 0.20 MG/DL SGOT/AST (test code = AST) 25 IUnit/L 8-34 N NOTE: NEW NORMAL RANGE SGPT/ALT (test code = ALT) 22 IUnit/L 10-49 N NOTE: NEW NORMAL RANGE ALKALINE PHOSPHATASE TOTAL (test code = ALKP) 63 IUnit/L 20-125 N COMMENTS: POD #[id number] 03:28:00* Test Item Value Reference Range Interpretation Comme nts MAGNESIUM (test code = MAG) 2.23 mg/dL 1.6-2.6 N NOTE: NEW NORMAL RANGE COMMENTS: POD #1CBC W/AUTO [id number] 03:10:00* Test Item Value Reference Range Interpretation Comme nts WHITE BLOOD CELL (test code = WBC) 14.5 x10 3/uL 4.5-11.0 H RED BLOOD CELL (test code = RBC) 3.33 x10 6/uL 4.00-5.60 L HEMOGLOBIN (test code = HGB) 10.2 g/dL 12.5-16.9 L HEMATOCRIT (test code = HCT) 30.5 % 37.5-50.7 L MEAN CELL VOLUME (test code = MCV) 91.6 fL 81.0-99.0 N MEAN CELL HGB (test code = MCH) 30.6 pg 27.0-33.0 N MEAN CELL HGB CONCETRATION (test code = MCHC) 33.4 g/dL 33.0-37.0 N RED CELL DISTRIBUTION WIDTH CV (test code = RDW) 13.1 % 11.5-14.5 N RED CELL DISTRIBUTION WIDTH SD (test code = RDW-SD) 43.5 fL 37.0-54.0 N PLATELET COUNT (test code = PLT) 254 x10 3/uL 150-400 N MEAN PLATELET VOLUME (test code = MPV) 10.5 fL 7.0-9.0 H NEUTROPHIL % (test code = NT%) 84.5 % 56.0-77.0 H IMMATURE GRANULOCYTE % (test code = IG%) 0.7 % 0.0-2.0 N LYMPHOCYTE % (test code = LY%) 6.5 % 14.0-32.0 L MONOCYTE % (test code = MO%) 8.1 % 4.8-9.0 N EOSINOPHIL % (test code = EO%) 0.1 % 0.3-3.7 L BASOPHIL % (test code = BA%) 0.1 % 0.0-2.0 N NUCLEATED RBC % (test code = NRBC%) 0.0 % 0-0 N NEUTROPHIL # (test code = NT#) 12.28 x10 3/uL 2.0-7.6 H IMMATURE GRANULOCYTE # (test code = IG#) 0.10 x10 3/uL 0.00-0.03 H LYMPHOCYTE # (test code = LY#) 0.94 x10 3/uL 1.0-3.8 L MONOCYTE # (test code = MO#) 1.17 x10 3/uL 0.1-0.8 H EOSINOPHIL # (test code = EO#) 0.01 x10 3/uL 0.0-0.2 N BASOPHIL # (test code = BA#) 0.01 x10 3/uL 0.0-0.2 N NUCLEATED RBC # (test code = NRBC#) 0.00 x10 3/uL 0.0-0.1 N GLUCOSE [id number] 00:39:00* Test Item Value Reference Range Interpretation Comme nts GLUCOSE BEDSIDE (test code = GLUBED) 217 MG/DL 70-110 H Performed by cer tified od grinder operator at [facility] GLUCOSE [id number] 21:44:00* Test Item Value Reference Range Interpretation Comme nts GLUCOSE BEDSIDE (test code = GLUBED) 253 MG/DL 70-110 H Performed by cer tified od grinder operator at [facility] - XR CHEST 1 [id number] 17:55:00 [facility] 1965 Sex: M FAX: Domenic Banerjee MD [phone] [place]: St: ADM FAX: Javier Marques MD [phone] ------ Name: JONG RIVAS [facility] : 1965 Age/S: 58/M [address] [place] [address] Unit #: [id number] Loc: G.2205 [place] [address] Phys: Javier Marques MD Acct: [id number] Dis Date: Status: ADM IN PHONE #: [phone] Exam Date: 04/28/2023 171 FAX #: [phone] Reason: RESPIRATORY DIFFICULTY EXAMS: CPT CODE: [id number] XR CHEST 1 V 81996 CHEST X-RAY 1 VIEW Dictation Location: N13 CLINICAL HISTORY: cardiac postop Technique: A single frontal view of the chest was obtained. Comparison made to study 0516 hours11 hours prior FINDINGS: There has been prior midline sternotomy. Left chest tube and mediastinal drain remain in place. Moderate enlargement of the cardiac silhouette again seen. There is mild improvement in the bilateral interstitial infiltrates now mild. Trace bilateral pleural effusions. No pneumothorax. IMPRESSION: Improved mild bilateral interstitial infiltrates. Trace effusions. at 1755 Reported and signed by: Mimi Stone M.D. CC: Domenic Rainey MD; Javier Marques MD Technologist: RT Irene(Ayla) Trnscrd Date/Time/By: 04/28/2023 (8523) : By: HelderMVT Orig Print D/T: S: 04/28/2023 (9789) PAGE 1 Signed ReportBASIC METABOLIC PANEL 2023-04-28 15:49:00* Test Item Value Reference Range Interpretation Comme nts SODIUM (test code = NA) 135 mEq/L 134-147 N POTASSIUM (test code = K) 4.5 mEq/L 3.4-5.0 N CHLORIDE (test code = CL) 110 mEq/L 100-108 H CARBON DIOXIDE (test code = CO2) 19 mEq/l 21-33 L ANION GAP (test code = GAP) 10 0-20 N GLUCOSE (test code = GLU) 186 mg/dL 77-141 H NOTE: NEW NORMAL RANGE BLOOD UREA NITROGEN (test code = BUN) 26 mg/dL 7-25 H NOTE: NEW NORM AL RANGE GLOMERULAR FILTRATION RATE (test code = GFR) 70.5 90-95 L The Glomerular Filtration Rate is a calculated parameterbased on serum Creatinine, patient age and sex. GFR valuesless than 60 mL/min/1.73 square meters are indicative ofChronic Kidney Disease. Values less than 15 mL/min/1.73square meters indicate Kidney failure. The calculation forGFR is based on the CKD-EPI (2020) calculation. This formulais race indifferent and is the recommended formula for GFRby the National Kidney Foundation for Adults.The GFR will not calculate if the sex is unknown or if thepatient's age is <18 years. CREATININE (test code = CREAT) 1.2 mg/dL 0.6-1.3 N CALCIUM (test code = CA) 8.7 mg/dL 8.0-10.5 N [id number] 15:49:00* Test Item Value Reference Range Interpretation Comme nts MAGNESIUM (test code = MAG) 2.19 mg/dL 1.6-2.6 NOTE: NEW NORMAL RANGE CALCIUM [id number] 15:49:00* Test Item Value Reference Range Interpretation Comme nts CALCIUM IONIZED (test code = MASSIMO) 1.13 MMOL/L 1.09-1.30 N GLUCOSE [id number] 14:00:00* Test Item Value Reference Range Interpretation Comme nts GLUCOSE BEDSIDE (test code = GLUBED) 144 MG/DL 70-110 H Performed by [facility] tified od grinder operator at [facility] GLUCOSE [id number] 11:17:00* Test Item Value Reference Range Interpretation Comme nts GLUCOSE BEDSIDE (test code = GLUBED) 149 MG/DL 70-110 H Performed by [facility] tified od grinder operator at [facility] GLUCOSE [id number] 09:20:00* Test Item Value Reference Range Interpretation Comme nts GLUCOSE BEDSIDE (test code = GLUBED) 135 MG/DL 70-110 H Performed by [facility]inder operator at [facility] - XR CHEST 1 [id number] 08:27:00 [facility] 1965 Sex: M FAX: Domenic Banerjee MD [phone] [place]: St: ADM FAX: Viky Barbour Phy [phone] --- Name: JONG RIVAS [facility] : 1965 Age/S: 58/M [address] [place] [address] Blvd Unit #: [id number] Loc: G.[address] [place] [address] Phys: Viky Mclaughlin Physic Acct: [id number] Dis Date: Status: ADM IN PHONE #: [phone] Exam Date: 04/28/2023517 FAX #: [phone] Reason: Cardiac Surgery Post Op EXAMS: CPT CODE: [id number] XR CHEST 1 V 94975 Chest x-ray: Single frontal semierect view. Indication: Cardiac surgery post-op. Comparison: CXR dated 04/27/2023. FINDINGS: The visualized airway is unremarkable. The endotracheal tube has been removed in the interval. Right internal jugular vein sheath/CVC is again noted, with the tip overlying the expected location of the proximal SVC. Right upper extremity PICC is in place, in satisfactory position, with the catheter tip at the cavoatrial junction. The patient is status post median sternotomy. A left-sided chest tube is in place. The cardiomediastinalsilhouette is enlarged. The thoracic aorta is tortuous and atherosclerotic at the arch. Pulmonary edema and a small left pleural effusion are again noted. There is no visualized pneumothorax. There are degenerative changes of the thoracic spine. Surgical clips are noted in the upper abdomen just to the left of midline. IMPRESSION: Lines and tubes, as detailed above. Pulmonary edema and small left pleural effusion again noted. Enlarged cardiomediastinal silhouette. at 0827 Reported and signed by: Bora Jiménez M.D. CC: Domenic Rainey MD; Viky Mclaughlin Technologist: Winsome Minor RT(R) Trnscrd Date/Time/By: 04/28/2023 (0863) : By: Orig Print D/T: S: 04/28/2023 (5782) PAGE 1 Signed ReportGLUCOSE [id number] 06:37:00* Test Item Value Reference Range Interpretation Comme nts GLUCOSE BEDSIDE (test code = GLUBED) 140 MG/DL 70-110 H Performed by cer ibrahima od grinder operator at [facility] BASIC METABOLIC [id number] 02:43:00* Test Item Value Reference Range Interpretation Comme nts SODIUM (test code = NA) 139 mEq/L 134-147 N POTASSIUM (test code = K) 4.6 mEq/L 3.4-5.0 N CHLORIDE (test code = CL) 111 mEq/L 100-108 H CARBON DIOXIDE (test code = CO2) 21 mEq/l 21-33 N ANION GAP (test code = GAP) 12 0-20 N GLUCOSE (test code = GLU) 142 mg/dL 77-141 H NOTE: NEW NORMAL RANGE BLOOD UREA NITROGEN (test code = BUN) 25 mg/dL 7-25 N NOTE: NEW NORM AL RANGE GLOMERULAR FILTRATION RATE (test code = GFR) 99.6 90-95 H The Glomerular Filtration Rate is a calculated parameterbased on serum Creatinine, patient age and sex. GFR valuesless than 60 mL/min/1.73 square meters are indicative ofChronic Kidney Disease. Values less than 15 mL/min/1.73square meters indicate Kidney failure. The calculation forGFR is based on the CKD-EPI (202) calculation. This formulais race indifferent and is the recommended formula for GFRby the National Kidney Foundation for Adults.The GFR will not calculate if the sex is unknown or if thepatient's age is <18 years. CREATININE (test code = CREAT) 0.9 mg/dL 0.6-1.3 N CALCIUM (test code = CA) 8.5 mg/dL 8.0-10.5 N COMMENTS: POD #1HEPATIC FUNCTION [id number] 02:43:00* Test Item Value Reference Range Interpretation Comme nts TOTAL PROTEIN (test code = PROT) 6.0 g/dL 6.4-8.2 L ALBUMIN (test code = ALB) 3.20 g/dL 3.4-5.0 L BILIRUBIN TOTAL (test code = BILT) 0.40 mg/dL 0.0-1.0 N BILIRUBIN DIRECT (test code = BILD) 0.20 MG/DL 0.1-0.3 N NOTE: NEW NORMAL RANGE SGOT/AST (test code = AST) 42 IUnit/L 8-34 H NOTE: NEW NORMAL RANGE SGPT/ALT (test code = ALT) 25 IUnit/L 10-49 N NOTE: NEW NORMAL RANGE ALKALINE PHOSPHATASE TOTAL (test code = ALKP) 58 IUnit/L 20-125 N BILIRUBIN INDIRECT (test code = BILIND) 0.20 MG/DL COMMENTS: POD #[id number] 02:43:00* Test Item Value Reference Range Interpretation Comme nts MAGNESIUM (test code = MAG) 1.84 mg/dL 1.6-2.6 N NOTE: NEW NORMAL RANGE COMMENTS: POD #1POC ARTERIAL BLOOD [id number] 02:24:00* Test Item Value Reference Range Interpretation Comme nts POC ARTERIAL BLOOD GAS PH (t est code = POCPHA) 7.365 7.35-7.45 N POC ARTERIAL BLOOD GAS PCO2 (test code = LEMJVG1C) 34.0 mmHg 35.0-45 L POC TCO2 ARTERIAL (test code = POCTCO2) 20.5 POC ARTERIAL BLOOD GAS PO2 ( test code = YIRQK4F) 73.3 mmHg 80-100.0 L POC HCO3 ARTERIAL (test code = JGUXYQ0O) 19.4 MMOL/L 22.0-26.0 L POC BASE EXCESS (test code = POCBEA) -5.9 MMOL/L -4.0-4.0 L POC O2 SATURATION (test code = POCO2S) 94.0 % 90-100 N ABG DELIVERY (test code = MIRTA) Cannula ABG TEMPERATURE (test code = TEMPA) 99 F ABG SITE (test code = SITEA) Art Line BASIC METABOLIC [id number] 02:24:00* Test Item Value Reference Range Interpretation Comme nts SODIUM (test code = NA/ABG) 140 mmol/L 134-147 N POTASSIUM (test code = K/ABG) 4.7 mmol/L 3.4-5.0 N CHLORIDE (test code = CL/ABG) 110 mmol/L 100-108 H CREATININE ABG (test code = CREAABG) 0.8 mg/dL 0.8-1.3 N POC IONIZED CALCIUM (test co de = POCCA) 1.24 MMOL/L 1.12-1.32 N POC GLUCOSE (test code = POCGLU) 138 MG/DL 70-110 H HEMOGLOBIN [id number] 02:24:00* Test Item Value Reference Range Interpretation Comme nts HEMOGLOBIN ABG (test code = HGB/ABG) 10.9 G/DL 12.5-16.9 L [id number] 02:24:00* Test Item Value Reference Range Interpretation Comme nts HEMATOCRIT (test code = HCT/ABG) 32 % 37.5-50.7 L POC LACTIC [id number] 02:24:00* Test Item Value Reference Range Interpretation Comme nts POC LACTIC ACID (test code = POCLAC) 0.5 mmol/l 0.9-1.7 L CBC W/AUTO [id number] 02:15:00* Test Item Value Reference Range Interpretation Comme nts WHITE BLOOD CELL (test code = WBC) 13.8 x10 3/uL 4.5-11.0 H RED BLOOD CELL (test code = RBC) 3.44 x10 6/uL 4.00-5.60 L HEMOGLOBIN (test code = HGB) 10.2 g/dL 12.5-16.9 L HEMATOCRIT (test code = HCT) 31.1 % 37.5-50.7 L MEAN CELL VOLUME (test code = MCV) 90.4 fL 81.0-99.0 N MEAN CELL HGB (test code = MCH) 29.7 pg 27.0-33.0 N MEAN CELL HGB CONCETRATION (test code = MCHC) 32.8 g/dL 33.0-37.0 L RED CELL DISTRIBUTION WIDTH CV (test code = RDW) 12.7 % 11.5-14.5 N RED CELL DISTRIBUTION WIDTH SD (test code = RDW-SD) 41.5 fL 37.0-54.0 N PLATELET COUNT (test code = PLT) 260 x10 3/uL 150-400 N MEAN PLATELET VOLUME (test code = MPV) 10.0 fL 7.0-9.0 H NEUTROPHIL % (test code = NT%) 88.7 % 56.0-77.0 H IMMATURE GRANULOCYTE % (test code = IG%) 0.5 % 0.0-2.0 N LYMPHOCYTE % (test code = LY%) 4.0 % 14.0-32.0 L MONOCYTE % (test code = MO%) 6.7 % 4.8-9.0 N EOSINOPHIL % (test code = EO%) 0.0 % 0.3-3.7 L BASOPHIL % (test code = BA%) 0.1 % 0.0-2.0 N NUCLEATED RBC % (test code = NRBC%) 0.0 % 0-0 N NEUTROPHIL # (test code = NT#) 12.23 x10 3/uL 2.0-7.6 H IMMATURE GRANULOCYTE # (test code = IG#) 0.07 x10 3/uL 0.00-0.03 H LYMPHOCYTE # (test code = LY#) 0.55 x10 3/uL 1.0-3.8 L MONOCYTE # (test code = MO#) 0.92 x10 3/uL 0.1-0.8 H EOSINOPHIL # (test code = EO#) 0.00 x10 3/uL 0.0-0.2 N BASOPHIL # (test code = BA#) 0.01 x10 3/uL 0.0-0.2 N NUCLEATED RBC # (test code = NRBC#) 0.00 x10 3/uL 0.0-0.1 N GLUCOSE [id number] 01:18:00* Test Item Value Reference Range Interpretation Comme nts GLUCOSE BEDSIDE (test code = GLUBED) 121 MG/DL 70-110 H Performed by cer ibrahima od grinder operator at [facility] POC ARTERIAL BLOOD [id number] 22:44:00* Test Item Value Reference Range Interpretation Comme [facility] POC ARTERIAL BLOOD GAS PH (t est code = POCPHA) 7.359 7.35-7.45 N POC ARTERIAL BLOOD GAS PCO2 (test code = [id number]) 34.7 mmHg 35.0-45 L POC TCO2 ARTERIAL (test code = POCTCO2) 20.7 POC ARTERIAL BLOOD GAS PO2 ( test code = RXBXU9C) 96.9 mmHg 80-100.0 N POC HCO3 ARTERIAL (test code = IZPAGV4U) 19.6 MMOL/L 22.0-26.0 L POC BASE EXCESS (test code = POCBEA) -5.8 MMOL/L -4.0-4.0 L POC O2 SATURATION (test code = POCO2S) 97.3 % 90-100 N ABG DELIVERY (test code = MIRTA) Cannula ABG TEMPERATURE (test code = TEMPA) 98.6 F ABG SITE (test code = SITEA) Art Line BASIC METABOLIC [id number] 22:44:00* Test Item Value Reference Range Interpretation Comme nts SODIUM (test code = NA/ABG) 140 mmol/L 134-147 N POTASSIUM (test code = K/ABG) 4.8 mmol/L 3.4-5.0 N CHLORIDE (test code = CL/ABG) 110 mmol/L 100-108 H CREATININE ABG (test code = CREAABG) 1.0 mg/dL 0.8-1.3 POC IONIZED CALCIUM (test co de = POCCA) 1.20 MMOL/L 1.12-1.32 N POC GLUCOSE (test code = POCGLU) 150 MG/DL 70-110 H HEMOGLOBIN [id number] 22:44:00* Test Item Value Reference Range Interpretation Comme nts HEMOGLOBIN ABG (test code = HGB/ABG) 10.9 G/DL 12.5-16.9 L [id number] 22:44:00* Test Item Value Reference Range Interpretation Comme nts HEMATOCRIT (test code = HCT/ABG) 32 % 37.5-50.7 L POC LACTIC [id number] 22:44:00* Test Item Value Reference Range Interpretation Comme nts POC LACTIC ACID (test code = POCLAC) 0.9 mmol/l 0.9-1.7 N GLUCOSE [id number] 22:27:00* Test Item Value Reference Range Interpretation Comme nts GLUCOSE BEDSIDE (test code = GLUBED) 145 MG/DL 70-110 H Performed by cer tified od grinder operator at [facility] GLUCOSE [id number] 20:16:00* Test Item Value Reference Range Interpretation Comme nts GLUCOSE BEDSIDE (test code = GLUBED) 157 MG/DL 70-110 H Performed by cer tified od grinder operator at [facility] PROTHROMBIN [id number] 17:45:00* Test Item Value Reference Range Interpretation [facility] PROTHROMBIN TIME PATIENT (test code = PTP) 17.3 SECONDS 9.3-12.9 H INTERNATIONAL NORMAL RATIO (test code = INR) 1.6 0.8-1.2 H TARGET INR BY INDICATION Indication INR1. Prophylaxis of venous thrombosis 2.0 - 3.0 (orthopedic surgery), Prophylaxis of venous thrombosis (other than high-risk surgery), Treatment of Deep Vein Thrombosis/Pulmonary Embolism, Prevention of systemic embolism - Tissue heart valves, Acute Myocardial Infarction (to prevent systemic embolism), Valvular heart disease, Atrial Fibrillation, Bileaflet mechanical valve in aortic position.2. Mechanical prosthetic valves (high risk), 2.5 - 3.5 Presence of Lupus Anticoagulant or Antiphospholipid Antibodies, Prevention of systemic embolism - Acute Myocardial Infarction (to prevent recurrent infarct). COMMENTS: On arrivalTHROMBOPLASTIN TIME [id number] 17:45:00* Test Item Value Reference Range Interpretation [facility] THROMBOPLASTIN TIME PARTIAL (test code = PTT) 44.3 Seconds 25.0-39.5 H Therapeutic Rang e: 50.4 - 88.3 Seconds Effective 10/03/2018 [facility] [id number] 17:40:00* Test Item Value Reference Range Interpretation [facility] POC ARTERIAL BLOOD GAS PH (t est code = POCPHA) 7.332 7.35-7.45 L POC ARTERIAL BLOOD GAS PCO2 (test code = OYOHCT8M) 37.6 mmHg 35.0-45 N POC TCO2 ARTERIAL (test code = POCTCO2) 21.2 POC ARTERIAL BLOOD GAS PO2 ( test code = IZHDN9Y) 104.6 mmHg 80-100.0 H POC HCO3 ARTERIAL (test code = EEOZTF0B) 20.0 MMOL/L 22.0-26.0 L POC BASE EXCESS (test code = POCBEA) -6.0 MMOL/L -4.0-4.0 L POC O2 SATURATION (test code = POCO2S) 97.8 % 90-100 N FIO2 (test code = FIO2A) 50 % PaO2/FiO2 (test code = UNW1EOM5) 209.20 mm/Hg ABG DELIVERY (test code = MITRA) ET Tube ABG VENT MODE (test code = MODEA) CPAP/PS ABG TEMPERATURE (test code = TEMPA) 97.5 F ABG SITE (test code = SITEA) Art Line BASIC METABOLIC [id number] 17:40:00* Test Item Value Reference Range Interpretation Comme nts SODIUM (test code = NA/ABG) 141 mmol/L 134-147 N POTASSIUM (test code = K/ABG) 4.6 mmol/L 3.4-5.0 N CHLORIDE (test code = CL/ABG) 109 mmol/L 100-108 H CREATININE ABG (test code = CREAABG) 0.8 mg/dL 0.8-1.3 N POC IONIZED CALCIUM (test co de = POCCA) 1.22 MMOL/L 1.12-1.32 N POC GLUCOSE (test code = POCGLU) 180 MG/DL 70-110 H HEMOGLOBIN [id number] 17:40:00* Test Item Value Reference Range Interpretation Comme nts HEMOGLOBIN ABG (test code = HGB/ABG) 12.6 G/DL 12.5-16.9 N [id number] 17:40:00* Test Item Value Reference Range Interpretation Comme nts HEMATOCRIT (test code = HCT/ABG) 37 % 37.5-50.7 L BASIC METABOLIC [id number] 17:31:00* Test Item Value Reference Range Interpretation Comme nts SODIUM (test code = NA) 136 mEq/L 134-147 N POTASSIUM (test code = K) 4.9 mEq/L 3.4-5.0 N CHLORIDE (test code = CL) 110 mEq/L 100-108 H CARBON DIOXIDE (test code = CO2) 20 mEq/l 21-33 L ANION GAP (test code = GAP) 11 0-20 N GLUCOSE (test code = GLU) 169 mg/dL 77-141 H NOTE: NEW NORMAL RANGE BLOOD UREA NITROGEN (test code = BUN) 19 mg/dL 7-25 N NOTE: NEW NORM AL RANGE GLOMERULAR FILTRATION RATE (test code = GFR) 99.6 90-95 H The Glomerular Filtration Rate is a calculated parameterbased on serum Creatinine, patient age and sex. GFR valuesless than 60 mL/min/1.73 square meters are indicative ofChronic Kidney Disease. Values less than 15 mL/min/1.73square meters indicate Kidney failure. The calculation forGFR is based on the CKD-EPI (2021) calculation. This formulais race indifferent and is the recommended formula for GFRby the National Kidney Foundation for Adults.The GFR will not calculate if the sex is unknown or if thepatient's age is <18 years. CREATININE (test code = CREAT) 0.9 mg/dL 0.6-1.3 N CALCIUM (test code = CA) 8.3 mg/dL 8.0-10.5 N COMMENTS: On arrivalComment: On [id number] 17:31:00* Test Item Value Reference Range Interpretation Comme nts MAGNESIUM (test code = MAG) 2.02 mg/dL 1.6-2.6 NOTE: NEW NORMAL RANGE COMMENTS: On arrivalComment: On arrival- XR CHEST 1 [id number] 17:22:00 [facility] 1965 Sex: M FAX: Domenic Banerjee MD [phone] [place]: St: [facility] FAX: Viky Barbour [facility] [phone] --- Name: JONG RIVAS [facility] : 1965 Age/S: 58/M [address] [place] [address] Unit #: [id number] Loc: [address] [place] [id number] Phys: Viky Mclaughlin Physic Acct: [id number] Dis Date: Status: ADM IN PHONE #: Exam Date: 04/27/2023 1705 FAX #: [phone] Reason: Cardiac Surgery Post Op EXAMS: CPT CODE: [id number] XR CHEST 1 V [id number] Dictation location: C4. CHEST, FRONTAL VIEW HISTORY: CardiacSurgery Post Op FINDINGS: Since 04/20/23, endotracheal tube seen just above the anni in good position. Right IJ sheath within the SVC. Right PICC line in the SVC. Left pleural catheter. The lungs are underinflated. Cardiomegaly with mild pulmonary edema and probable small left pleural effusion. Nopneumothorax. Sternotomy wires. Thoracic spondylosis. IMPRESSION: Interval postoperative changes with support tubes and lines in good position. No pneumothorax. Pulmonary edema and small left pleuraleffusion. at 1722 Reported and signed by: Indira Smiley M.D. CC: Domenic Rainey MD; Viky Mclaughlin Technologist: RT Ju(Ayla) Trnscrd Date/Time/By: 04/27/2023 (172) : By: [email or web address] Orig Print D/T: S: 04/27/2023 (8578) PAGE 1 Signed ReportCBC W/AUTO [id number] 17:14:00* Test Item Value Reference Range Interpretation Comme nts WHITE BLOOD CELL (test code = WBC) 20.4 x10 3/uL 4.5-11.0 H RED BLOOD CELL (test code = RBC) 3.76 x10 6/uL 4.00-5.60 L HEMOGLOBIN (test code = HGB) 11.4 g/dL 12.5-16.9 L HEMATOCRIT (test code = HCT) 34.0 % 37.5-50.7 L MEAN CELL VOLUME (test code = MCV) 90.4 fL 81.0-99.0 N MEAN CELL HGB (test code = MCH) 30.3 pg 27.0-33.0 N MEAN CELL HGB CONCETRATION (test code = MCHC) 33.5 g/dL 33.0-37.0 N RED CELL DISTRIBUTION WIDTH CV (test code = RDW) 12.7 % 11.5-14.5 N RED CELL DISTRIBUTION WIDTH SD (test code = RDW-SD) 41.5 fL 37.0-54.0 N PLATELET COUNT (test code = PLT) 275 x10 3/uL 150-400 N MEAN PLATELET VOLUME (test code = MPV) 10.4 fL 7.0-9.0 H NEUTROPHIL % (test code = NT%) 88.5 % 56.0-77.0 H IMMATURE GRANULOCYTE % (test code = IG%) 1.0 % 0.0-2.0 N LYMPHOCYTE % (test code = LY%) 5.1 % 14.0-32.0 L MONOCYTE % (test code = MO%) 4.9 % 4.8-9.0 N EOSINOPHIL % (test code = EO%) 0.2 % 0.3-3.7 L BASOPHIL % (test code = BA%) 0.3 % 0.0-2.0 N NUCLEATED RBC % (test code = NRBC%) 0.0 % 0-0 N NEUTROPHIL # (test code = NT#) 18.07 x10 3/uL 2.0-7.6 H IMMATURE GRANULOCYTE # (test code = IG#) 0.20 x10 3/uL 0.00-0.03 H LYMPHOCYTE # (test code = LY#) 1.04 x10 3/uL 1.0-3.8 N MONOCYTE # (test code = MO#) 1.00 x10 3/uL 0.1-0.8 H EOSINOPHIL # (test code = EO#) 0.05 x10 3/uL 0.0-0.2 N BASOPHIL # (test code = BA#) 0.06 x10 3/uL 0.0-0.2 N NUCLEATED RBC # (test code = NRBC#) 0.00 x10 3/uL 0.0-0.1 N COMMENTS: [facility] [id number] 16:53:00* Test Item Value Reference Range Interpretation Comme nts POC ARTERIAL BLOOD GAS PH (t est code = POCPHA) 7.344 7.35-7.45 L POC ARTERIAL BLOOD GAS PCO2 (test code = SQXODE4V) 38.4 mmHg 35.0-45 N POC TCO2 ARTERIAL (test code = POCTCO2) 22.1 POC ARTERIAL BLOOD GAS PO2 ( test code = IHIGB0A) 80.6 mmHg 80-100.0 N POC HCO3 ARTERIAL (test code = OYCNLY8G) 20.9 MMOL/L 22.0-26.0 L POC BASE EXCESS (test code = POCBEA) -4.8 MMOL/L -4.0-4.0 L POC O2 SATURATION (test code = POCO2S) 95.2 % 90-100 N FIO2 (test code = FIO2A) 50 % PaO2/FiO2 (test code = [id number]) 161.20 mm/Hg ABG DELIVERY (test code = MIRTA) Adult Vent ABG VENT MODE (test code = MODEA) AC ABG VENT RESP RATE (test cod e = RRA) 18 /MIN ABG TIDAL VOLUME (test code = TVA) 500 ml ABG PEEP (test code = PEEPA) 5 cmH2O ABG SITE (test code = SITEA) Art Line ALFIE'S TEST (test code = ALLENS) N/A BASIC METABOLIC [id number] 16:53:00* Test Item Value Reference Range Interpretation Comme nts SODIUM (test code = NA/ABG) 138 mmol/L 134-147 N POTASSIUM (test code = K/ABG) 5.1 mmol/L 3.4-5.0 H CHLORIDE (test code = CL/ABG) 109 mmol/L 100-108 H CREATININE ABG (test code = CREAABG) 0.8 mg/dL 0.8-1.3 N POC IONIZED CALCIUM (test co de = POCCA) 1.25 MMOL/L 1.12-1.32 N POC GLUCOSE (test code = POCGLU) 181 MG/DL 70-110 H HEMOGLOBIN [id number] 16:53:00* Test Item Value Reference Range Interpretation Comme nts HEMOGLOBIN ABG (test code = HGB/ABG) 11.5 G/DL 12.5-16.9 L [id number] 16:53:00* Test Item Value Reference Range Interpretation Comme nts HEMATOCRIT (test code = HCT/ABG) 34 % 37.5-50.7 L [id number] 16:03:00* Test Item Value Reference Range Interpretation Comme nts ACT-ISTAT (test code = ACTI) 147 SEC 74-137 H Performed by cer ibrahima od grinder operator at [facility] POC ARTERIAL BLOOD [id number] 15:58:00* Test Item Value Reference Range Interpretation Comme nts POC ARTERIAL BLOOD GAS PH (t est code = POCPHA) 7.364 7.35-7.45 N POC ARTERIAL BLOOD GAS PCO2 (test code = BTHKIM7K) 34.2 mmHg 35.0-45 L POC TCO2 ARTERIAL (test code = POCTCO2) 20.5 POC ARTERIAL BLOOD GAS PO2 ( test code = NYDOZ8U) 104.1 mmHg 80-100.0 H POC HCO3 ARTERIAL (test code = ZULVIT7N) 19.5 MMOL/L 22.0-26.0 L POC BASE EXCESS (test code = POCBEA) -5.3 MMOL/L -4.0-4.0 L POC O2 SATURATION (test code = POCO2S) 97.9 % 90-100 N BASIC METABOLIC [id number] 15:58:00* Test Item Value Reference Range Interpretation Comme nts SODIUM (test code = NA/ABG) 139 mmol/L 134-147 N POTASSIUM (test code = K/ABG) 4.8 mmol/L 3.4-5.0 N CHLORIDE (test code = CL/ABG) 110 mmol/L 100-108 H CREATININE ABG (test code = CREAABG) 0.7 mg/dL 0.8-1.3 L POC IONIZED CALCIUM (test co de = POCCA) 1.22 MMOL/L 1.12-1.32 N POC GLUCOSE (test code = POCGLU) 179 MG/DL 70-110 H HEMOGLOBIN [id number] 15:58:00* Test Item Value Reference Range Interpretation Comme nts HEMOGLOBIN ABG (test code = HGB/ABG) 9.3 G/DL 12.5-16.9 L [id number] 15:58:00* Test Item Value Reference Range Interpretation Comme nts HEMATOCRIT (test code = HCT/ABG) 27 % 37.5-50.7 L POC LACTIC [id number] 15:58:00* Test Item Value Reference Range Interpretation Comme nts POC LACTIC ACID (test code = POCLAC) 1.0 mmol/l 0.9-1.7 N [id number] 15:15:00* Test Item Value Reference Range Interpretation Comme nts ACT-ISTAT (test code = ACTI) 482 SEC 74-137 H Performed by cer ibrahima od grinder operator at [facility] POC ARTERIAL BLOOD [id number] 15:11:00* Test Item Value Reference Range Interpretation Comme nts POC ARTERIAL BLOOD GAS PH (t est code = POCPHA) 7.397 7.35-7.45 N POC ARTERIAL BLOOD GAS PCO2 (test code = RZGFLU7B) 38.1 mmHg 35.0-45 N POC TCO2 ARTERIAL (test code = POCTCO2) 24.6 POC ARTERIAL BLOOD GAS PO2 ( test code = NFIWQ3H) 279.7 mmHg 80-100.0 HH POC HCO3 ARTERIAL (test code = ZXLEZL0E) 23.4 MMOL/L 22.0-26.0 N POC BASE EXCESS (test code = POCBEA) -1.2 MMOL/L -4.0-4.0 N POC O2 SATURATION (test code = POCO2S) 99.9 % 90-100 N BASIC METABOLIC [id number] 15:11:00* Test Item Value Reference Range Interpretation Comme nts SODIUM (test code = NA/ABG) 138 mmol/L 134-147 N POTASSIUM (test code = K/ABG) 5.4 mmol/L 3.4-5.0 H CHLORIDE (test code = CL/ABG) 108 mmol/L 100-108 N CREATININE ABG (test code = CREAABG) 0.7 mg/dL 0.8-1.3 L POC IONIZED CALCIUM (test co de = POCCA) 1.15 MMOL/L 1.12-1.32 N POC GLUCOSE (test code = POCGLU) 174 MG/DL 70-110 H HEMOGLOBIN [id number] 15:11:00* Test Item Value Reference Range Interpretation Comme nts HEMOGLOBIN ABG (test code = HGB/ABG) 9.5 G/DL 12.5-16.9 L [id number] 15:11:00* Test Item Value Reference Range Interpretation Comme nts HEMATOCRIT (test code = HCT/ABG) 28 % 37.5-50.7 L POC LACTIC [id number] 15:11:00* Test Item Value Reference Range Interpretation Comme nts POC LACTIC ACID (test code = POCLAC) 0.6 mmol/l 0.9-1.7 L [id number] 14:47:00* Test Item Value Reference Range Interpretation Comme nts ACT-ISTAT (test code = ACTI) > 1000 SEC 74-137 H Performed by cer tified od grinder operator at [facility] POC ARTERIAL BLOOD [id number] 14:31:00* Test Item Value Reference Range Interpretation Comme nts POC ARTERIAL BLOOD GAS PH (t est code = POCPHA) 7.380 7.35-7.45 N POC ARTERIAL BLOOD GAS PCO2 (test code = HVEUGR3X) 41.5 mmHg 35.0-45 N POC TCO2 ARTERIAL (test code = POCTCO2) 25.8 POC ARTERIAL BLOOD GAS PO2 ( test code = AVRII7R) 381.1 mmHg 80-100.0 HH POC HCO3 ARTERIAL (test code = CNVXWW3K) 24.6 MMOL/L 22.0-26.0 N POC BASE EXCESS (test code = POCBEA) -0.6 MMOL/L -4.0-4.0 N POC O2 SATURATION (test code = POCO2S) 100.0 % 90-100 N BASIC METABOLIC [id number] 14:31:00* Test Item Value Reference Range Interpretation Comme nts SODIUM (test code = NA/ABG) 140 mmol/L 134-147 N POTASSIUM (test code = K/ABG) 5.6 mmol/L 3.4-5.0 H CHLORIDE (test code = CL/ABG) 108 mmol/L 100-108 N CREATININE ABG (test code = CREAABG) 0.7 mg/dL 0.8-1.3 L POC IONIZED CALCIUM (test co de = POCCA) 1.11 MMOL/L 1.12-1.32 L POC GLUCOSE (test code = POCGLU) 155 MG/DL 70-110 H HEMOGLOBIN [id number] 14:31:00* Test Item Value Reference Range Interpretation Comme nts HEMOGLOBIN ABG (test code = HGB/ABG) 9.7 G/DL 12.5-16.9 L [id number] 14:31:00* Test Item Value Reference Range Interpretation Comme nts HEMATOCRIT (test code = HCT/ABG) 29 % 37.5-50.7 L POC LACTIC [id number] 14:31:00* Test Item Value Reference Range Interpretation Comme nts POC LACTIC ACID (test code = POCLAC) < 0.3 mmol/l 0.9-1.7 L [id number] 14:05:00* Test Item Value Reference Range Interpretation Comme nts ACT-ISTAT (test code = ACTI) 677 SEC 74-137 H Performed by cer tified od grinder operator at [facility] POC ARTERIAL BLOOD [id number] 13:54:00* Test Item Value Reference Range Interpretation Comme nts POC ARTERIAL BLOOD GAS PH (t est code = POCPHA) 7.257 7.35-7.45 LL POC ARTERIAL BLOOD GAS PCO2 (test code = LMDSHN3N) 45.1 mmHg 35.0-45 H POC TCO2 ARTERIAL (test code = POCTCO2) 21.5 POC ARTERIAL BLOOD GAS PO2 ( test code = RAQBG0W) 238.6 mmHg 80-100.0 HH POC HCO3 ARTERIAL (test code = PWFGAM1R) 20.1 MMOL/L 22.0-26.0 L POC BASE EXCESS (test code = POCBEA) -6.8 MMOL/L -4.0-4.0 L POC O2 SATURATION (test code = POCO2S) 99.7 % 90-100 N BASIC METABOLIC [id number] 13:54:00* Test Item Value Reference Range Interpretation Comme nts SODIUM (test code = NA/ABG) 139 mmol/L 134-147 N POTASSIUM (test code = K/ABG) 4.1 mmol/L 3.4-5.0 N CHLORIDE (test code = CL/ABG) 108 mmol/L 100-108 N CREATININE ABG (test code = CREAABG) 0.5 mg/dL 0.8-1.3 L POC IONIZED CALCIUM (test co de = POCCA) 1.14 MMOL/L 1.12-1.32 N POC GLUCOSE (test code = POCGLU) 165 MG/DL 70-110 H HEMOGLOBIN [id number] 13:54:00* Test Item Value Reference Range Interpretation Comme nts HEMOGLOBIN ABG (test code = HGB/ABG) 11.3 G/DL 12.5-16.9 L [id number] 13:54:00* Test Item Value Reference Range Interpretation Comme nts HEMATOCRIT (test code = HCT/ABG) 33 % 37.5-50.7 L POC LACTIC [id number] 13:54:00* Test Item Value Reference Range Interpretation Comme nts POC LACTIC ACID (test code = POCLAC) 0.3 mmol/l 0.9-1.7 L [id number] 12:38:00* Test Item Value Reference Range Interpretation Comme nts ACT-ISTAT (test code = ACTI) 152 SEC 74-137 H Performed by cer tified od grinder operator at [facility] POC ARTERIAL BLOOD [id number] 12:35:00* Test Item Value Reference Range Interpretation Comme nts POC ARTERIAL BLOOD GAS PH (t est code = POCPHA) 7.331 7.35-7.45 L POC ARTERIAL BLOOD GAS PCO2 (test code = JYZRUZ1E) 32.2 mmHg 35.0-45 L POC TCO2 ARTERIAL (test code = POCTCO2) 18.0 POC ARTERIAL BLOOD GAS PO2 ( test code = FMORC5W) 252.0 mmHg 80-100.0 HH POC HCO3 ARTERIAL (test code = VREYUI7F) 17.0 MMOL/L 22.0-26.0 LL POC BASE EXCESS (test code = POCBEA) -8.0 MMOL/L -4.0-4.0 L POC O2 SATURATION (test code = POCO2S) 99.8 % 90-100 N BASIC METABOLIC [id number] 12:35:00* Test Item Value Reference Range Interpretation Comme nts SODIUM (test code = NA/ABG) 143 mmol/L 134-147 N POTASSIUM (test code = K/ABG) 3.5 mmol/L 3.4-5.0 N CHLORIDE (test code = CL/ABG) 113 mmol/L 100-108 H CREATININE ABG (test code = CREAABG) 0.5 mg/dL 0.8-1.3 L POC IONIZED CALCIUM (test co de = POCCA) 1.09 MMOL/L 1.12-1.32 L POC GLUCOSE (test code = POCGLU) 139 MG/DL 70-110 H HEMOGLOBIN [id number] 12:35:00* Test Item Value Reference Range Interpretation [facility] HEMO[facility]IN ABG (test code = HGB/ABG) 11.0 G/DL 12.5-16.9 L [id number] 12:35:00* Test Item Value Reference Range Interpretation [facility] HEMATOCRIT (test code = HCT/ABG) 32 % 37.5-50.7 L POC LACTIC [id number] 12:35:00* Test Item Value Reference Range Interpretation [facility] POC LACTIC ACID (test code = POCLAC) < 0.3 mmol/l 0.9-1.7 L COVID 19 Asymptomatic IH [id number] 09:02:00* Test Item Value Reference Range Interpretation [facility] Asymptomatic IH AG (test code = COVNONPUIAG) Negative Negative A negative resul t is presumptive and should be confirmedwith an FDA authorized molecular assay, if necessary forpatient management.A positive result does not rule out co-infections withother pathogens.This test detects both viable (live) and non-viable,SARS-CoV, and SARS-CoV-2. Test performance depends on theamount of virus (antigen) in the sample.This test has not been FDA cleared or approved; the test hasbeen authorized by FDA under an Emergency Use Authorization(EUA) for use by laboratories certified under the CLIA thatmeet the requirements to perform moderate, high or waivedcomplexity tests. PROTHROMBIN [id number] 08:56:00* Test Item Value Reference Range Interpretation [facility] PROTHROMBIN TIME PATIENT (test code = PTP) 16.4 SECONDS 9.3-12.9 H INTERNATIONAL NORMAL RATIO (test code = INR) 1.5 0.8-1.2 H TARGET INR BY INDICATION Indication INR1. Prophylaxis of venous thrombosis 2.0 - 3.0 (orthopedic surgery), Prophylaxis of venous thrombosis (other than high-risk surgery), Treatment of Deep Vein Thrombosis/Pulmonary Embolism, Prevention of systemic embolism - Tissue heart valves, Acute Myocardial Infarction (to prevent systemic embolism), Valvular heart disease, Atrial Fibrillation, Bileaflet mechanical valve in aortic position.2. Mechanical prosthetic valves (high risk), 2.5 - 3.5 Presence of Lupus Anticoagulant or Antiphospholipid Antibodies, Prevention of systemic embolism - Acute Myocardial Infarction (to prevent recurrent infarct). THROMBOPLASTIN TIME [id number] 08:56:00* Test Item Value Reference Range Interpretation Comme nts THROMBOPLASTIN TIME PARTIAL (test code = PTT) 32.7 Seconds 25.0-39.5 N Therapeutic Rang e: 50.4 - 88.3 Seconds Effective 10/03/2018 GLUCOSE [id number] 07:28:00* Test Item Value Reference Range Interpretation Comme nts GLUCOSE BEDSIDE (test code = GLUBED) 150 MG/DL 70-110 H Performed by cer tified od grinder operator at [facility] BASIC METABOLIC [id number] 03:54:00* Test Item Value Reference Range Interpretation Comme nts SODIUM (test code = NA) 135 mEq/L 134-147 N POTASSIUM (test code = K) 4.5 mEq/L 3.4-5.0 N CHLORIDE (test code = CL) 108 mEq/L 100-108 N CARBON DIOXIDE (test code = CO2) 23 mEq/l 21-33 N ANION GAP (test code = GAP) 8 0-20 N GLUCOSE (test code = GLU) 131 mg/dL 77-141 N NOTE: NEW NORMAL RANGE BLOOD UREA NITROGEN (test code = BUN) 22 mg/dL 7-25 N NOTE: NEW NORM AL RANGE GLOMERULAR FILTRATION RATE (test code = GFR) 99.6 90-95 H The Glomerular Filtration Rate is a calculated parameterbased on serum Creatinine, patient age and sex. GFR valuesless than 60 mL/min/1.73 square meters are indicative ofChronic Kidney Disease. Values less than 15 mL/min/1.73square meters indicate Kidney failure. The calculation forGFR is based on the CKD-EPI (2021) calculation. This formulais race indifferent and is the recommended formula for GFRby the National Kidney Foundation for Adults.The GFR will not calculate if the sex is unknown or if thepatient's age is <18 years. CREATININE (test code = CREAT) 0.9 mg/dL 0.6-1.3 N CALCIUM (test code = CA) 9.2 mg/dL 8.0-10.5 N [id number] 03:54:00* Test Item Value Reference Range Interpretation Comme nts MAGNESIUM (test code = MAG) 1.66 mg/dL 1.6-2.6 N NOTE: NEW NORMAL RANGE CBC W/AUTO [id number] 03:38:00* Test Item Value Reference Range Interpretation Comme nts WHITE BLOOD CELL (test code = WBC) 7.1 x10 3/uL 4.5-11.0 N RED BLOOD CELL (test code = RBC) 4.00 x10 6/uL 4.00-5.60 N HEMOGLOBIN (test code = HGB) 12.0 g/dL 12.5-16.9 L HEMATOCRIT (test code = HCT) 36.3 % 37.5-50.7 L MEAN CELL VOLUME (test code = MCV) 90.8 fL 81.0-99.0 N MEAN CELL HGB (test code = MCH) 30.0 pg 27.0-33.0 N MEAN CELL HGB CONCETRATION (test code = MCHC) 33.1 g/dL 33.0-37.0 N RED CELL DISTRIBUTION WIDTH CV (test code = RDW) 12.3 % 11.5-14.5 N RED CELL DISTRIBUTION WIDTH SD (test code = RDW-SD) 40.6 fL 37.0-54.0 N PLATELET COUNT (test code = PLT) 277 x10 3/uL 150-400 N MEAN PLATELET VOLUME (test c ode = MPV) 10.1 fL 7.0-9.0 H NEUTROPHIL % (test code = NT%) 60.0 % 56.0-77.0 N IMMATURE GRANULOCYTE % (test code = IG%) 0.6 % 0.0-2.0 N LYMPHOCYTE % (test code = LY%) 29.4 % 14.0-32.0 N MONOCYTE % (test code = MO%) 7.5 % 4.8-9.0 N EOSINOPHIL % (test code = EO%) 1.8 % 0.3-3.7 N BASOPHIL % (test code = BA%) 0.7 % 0.0-2.0 N NUCLEATED RBC % (test code = NRBC%) 0.0 % 0-0 N NEUTROPHIL # (test code = NT#) 4.27 x10 3/uL 2.0-7.6 N IMMATURE GRANULOCYTE # (test code = IG#) 0.04 x10 3/uL 0.00-0.03 H LYMPHOCYTE # (test code = LY#) 2.09 x10 3/uL 1.0-3.8 N MONOCYTE # (test code = MO#) 0.53 x10 3/uL 0.1-0.8 N EOSINOPHIL # (test code = EO#) 0.13 x10 3/uL 0.0-0.2 N BASOPHIL # (test code = BA#) 0.05 x10 3/uL 0.0-0.2 N NUCLEATED RBC # (test code = NRBC#) 0.00 x10 3/uL 0.0-0.1 N GLUCOSE [id number] 20:42:00* Test Item Value Reference Range Interpretation Comme nts GLUCOSE BEDSIDE (test code = GLUBED) 175 MG/DL 70-110 H Performed by cer tified od grinder operator at [facility] GLUCOSE [id number] 17:46:00* Test Item Value Reference Range Interpretation Comme nts GLUCOSE BEDSIDE (test code = GLUBED) 164 MG/DL 70-110 H Performed by cer tified od grinder operator at [facility] GLUCOSE [id number] 14:42:00* Test Item Value Reference Range Interpretation Comme nts GLUCOSE BEDSIDE (test code = GLUBED) 192 MG/DL 70-110 H Performed by cer tified od grinder operator at [facility] GLUCOSE [id number] 09:02:00* Test Item Value Reference Range Interpretation Comme nts GLUCOSE BEDSIDE (test code = GLUBED) 137 MG/DL 70-110 H Performed by cer tified od grinder operator at [facility] BASIC METABOLIC [id number] 07:06:00* Test Item Value Reference Range Interpretation Comme nts SODIUM (test code = NA) 137 mEq/L 134-147 N POTASSIUM (test code = K) 4.6 mEq/L 3.4-5.0 N CHLORIDE (test code = CL) 107 mEq/L 100-108 N CARBON DIOXIDE (test code = CO2) 23 mEq/l 21-33 N ANION GAP (test code = GAP) 12 0-20 N GLUCOSE (test code = GLU) 137 mg/dL 77-141 N NOTE: NEW NORMAL RANGE BLOOD UREA NITROGEN (test code = BUN) 28 mg/dL 7-25 H NOTE: NEW NORM AL RANGE GLOMERULAR FILTRATION RATE (test code = GFR) 87.8 90-95 L The Glomerular Filtration Rate is a calculated parameterbased on serum Creatinine, patient age and sex. GFR valuesless than 60 mL/min/1.73 square meters are indicative ofChronic Kidney Disease. Values less than 15 mL/min/1.73square meters indicate Kidney failure. The calculation forGFR is based on the CKD-EPI (202) calculation. This formulais race indifferent and is the recommended formula for GFRby the National Kidney Foundation for Adults.The GFR will not calculate if the sex is unknown or if thepatient's age is <18 years. CREATININE (test code = CREAT) 1.0 mg/dL 0.6-1.3 N CALCIUM (test code = CA) 9.2 mg/dL 8.0-10.5 N [id number] 07:06:00* Test Item Value Reference Range Interpretation Comme nts MAGNESIUM (test code = MAG) 1.64 mg/dL 1.6-2.6 N NOTE: NEW NORMAL RANGE CBC W/AUTO [id number] 06:26:00* Test Item Value Reference Range Interpretation Comme nts WHITE BLOOD CELL (test code = WBC) 7.5 x10 3/uL 4.5-11.0 N RED BLOOD CELL (test code = RBC) 3.95 x10 6/uL 4.00-5.60 L HEMOGLOBIN (test code = HGB) 11.9 g/dL 12.5-16.9 L HEMATOCRIT (test code = HCT) 35.8 % 37.5-50.7 L MEAN CELL VOLUME (test code = MCV) 90.6 fL 81.0-99.0 N MEAN CELL HGB (test code = MCH) 30.1 pg 27.0-33.0 N MEAN CELL HGB CONCETRATION (test code = MCHC) 33.2 g/dL 33.0-37.0 N RED CELL DISTRIBUTION WIDTH CV (test code = RDW) 12.4 % 11.5-14.5 N RED CELL DISTRIBUTION WIDTH SD (test code = RDW-SD) 41.0 fL 37.0-54.0 N PLATELET COUNT (test code = PLT) 289 x10 3/uL 150-400 N MEAN PLATELET VOLUME (test c ode = MPV) 10.2 fL 7.0-9.0 H NEUTROPHIL % (test code = NT%) 58.7 % 56.0-77.0 N IMMATURE GRANULOCYTE % (test code = IG%) 0.5 % 0.0-2.0 N LYMPHOCYTE % (test code = LY%) 30.8 % 14.0-32.0 N MONOCYTE % (test code = MO%) 7.8 % 4.8-9.0 N EOSINOPHIL % (test code = EO%) 1.7 % 0.3-3.7 N BASOPHIL % (test code = BA%) 0.5 % 0.0-2.0 N NUCLEATED RBC % (test code = NRBC%) 0.0 % 0-0 N NEUTROPHIL # (test code = NT#) 4.38 x10 3/uL 2.0-7.6 N IMMATURE GRANULOCYTE # (test code = IG#) 0.04 x10 3/uL 0.00-0.03 H LYMPHOCYTE # (test code = LY#) 2.30 x10 3/uL 1.0-3.8 N MONOCYTE # (test code = MO#) 0.58 x10 3/uL 0.1-0.8 N EOSINOPHIL # (test code = EO#) 0.13 x10 3/uL 0.0-0.2 N BASOPHIL # (test code = BA#) 0.04 x10 3/uL 0.0-0.2 N NUCLEATED RBC # (test code = NRBC#) 0.00 x10 3/uL 0.0-0.1 N GLUCOSE [id number] 04:10:00* Test Item Value Reference Range Interpretation Comme nts GLUCOSE BEDSIDE (test code = GLUBED) 214 MG/DL 70-110 H Performed by cer tified od grinder operator at [facility] GLUCOSE [id number] 17:53:00* Test Item Value Reference Range Interpretation Comme nts GLUCOSE BEDSIDE (test code = GLUBED) 212 MG/DL 70-110 H Performed by cer tified od grinder operator at [facility] GLUCOSE [id number] 12:59:00* Test Item Value Reference Range Interpretation Comme nts GLUCOSE BEDSIDE (test code = GLUBED) 214 MG/DL 70-110 H Performed by cer tified od grinder operator at [facility] GLUCOSE [id number] 08:30:00* Test Item Value Reference Range Interpretation Comme nts GLUCOSE BEDSIDE (test code = GLUBED) 158 MG/DL 70-110 H Performed by cer tified od grinder operator at [facility] BASIC METABOLIC [id number] 06:47:00* Test Item Value Reference Range Interpretation Comme nts SODIUM (test code = NA) 134 mEq/L 134-147 N POTASSIUM (test code = K) 4.2 mEq/L 3.4-5.0 N CHLORIDE (test code = CL) 105 mEq/L 100-108 N CARBON DIOXIDE (test code = CO2) 23 mEq/l 21-33 N ANION GAP (test code = GAP) 11 0-20 N GLUCOSE (test code = GLU) 168 mg/dL 77-141 H NOTE: NEW NORMAL RANGE BLOOD UREA NITROGEN (test code = BUN) 26 mg/dL 7-25 H NOTE: NEW NORM AL RANGE GLOMERULAR FILTRATION RATE (test code = GFR) 87.8 90-95 L The Glomerular Filtration Rate is a calculated parameterbased on serum Creatinine, patient age and sex. GFR valuesless than 60 mL/min/1.73 square meters are indicative ofChronic Kidney Disease. Values less than 15 mL/min/1.73square meters indicate Kidney failure. The calculation forGFR is based on the CKD-EPI (2020) calculation. This formulais race indifferent and is the recommended formula for GFRby the National Kidney Foundation for Adults.The GFR will not calculate if the sex is unknown or if thepatient's age is <18 years. CREATININE (test code = CREAT) 1.0 mg/dL 0.6-1.3 N CALCIUM (test code = CA) 9.2 mg/dL 8.0-10.5 N [id number] 06:47:00* Test Item Value Reference Range Interpretation Comme nts MAGNESIUM (test code = MAG) 1.60 mg/dL 1.6-2.6 N NOTE: NEW NORMAL RANGE CBC W/AUTO [id number] 06:05:00* Test Item Value Reference Range Interpretation Comme nts WHITE BLOOD CELL (test code = WBC) 11.9 x10 3/uL 4.5-11.0 H RED BLOOD CELL (test code = RBC) 3.89 x10 6/uL 4.00-5.60 L HEMOGLOBIN (test code = HGB) 11.6 g/dL 12.5-16.9 L HEMATOCRIT (test code = HCT) 34.7 % 37.5-50.7 L MEAN CELL VOLUME (test code = MCV) 89.2 fL 81.0-99.0 N MEAN CELL HGB (test code = MCH) 29.8 pg 27.0-33.0 N MEAN CELL HGB CONCETRATION (test code = MCHC) 33.4 g/dL 33.0-37.0 N RED CELL DISTRIBUTION WIDTH CV (test code = RDW) 12.5 % 11.5-14.5 N RED CELL DISTRIBUTION WIDTH SD (test code = RDW-SD) 40.4 fL 37.0-54.0 N PLATELET COUNT (test code = PLT) 316 x10 3/uL 150-400 N MEAN PLATELET VOLUME (test c ode = MPV) 10.5 fL 7.0-9.0 H NEUTROPHIL % (test code = NT%) 80.7 % 56.0-77.0 H IMMATURE GRANULOCYTE % (test code = IG%) 0.5 % 0.0-2.0 N LYMPHOCYTE % (test code = LY%) 11.5 % 14.0-32.0 L MONOCYTE % (test code = MO%) 6.9 % 4.8-9.0 N EOSINOPHIL % (test code = EO%) 0.2 % 0.3-3.7 L BASOPHIL % (test code = BA%) 0.2 % 0.0-2.0 N NUCLEATED RBC % (test code = NRBC%) 0.0 % 0-0 N NEUTROPHIL # (test code = NT#) 9.65 x10 3/uL 2.0-7.6 H IMMATURE GRANULOCYTE # (test code = IG#) 0.06 x10 3/uL 0.00-0.03 H LYMPHOCYTE # (test code = LY#) 1.37 x10 3/uL 1.0-3.8 N MONOCYTE # (test code = MO#) 0.82 x10 3/uL 0.1-0.8 H EOSINOPHIL # (test code = EO#) 0.02 x10 3/uL 0.0-0.2 N BASOPHIL # (test code = BA#) 0.02 x10 3/uL 0.0-0.2 N NUCLEATED RBC # (test code = NRBC#) 0.00 x10 3/uL 0.0-0.1 N MANUAL DIFF REQUIRED (test c ode = MDIFF) NO GLUCOSE [id number] 20:19:00* Test Item Value Reference Range Interpretation Comme nts GLUCOSE BEDSIDE (test code = GLUBED) 347 MG/DL 70-110 H Performed by cer tified od grinder operator at [facility] GLUCOSE [id number] 16:41:00* Test Item Value Reference Range Interpretation Comme nts GLUCOSE BEDSIDE (test code = GLUBED) 310 MG/DL 70-110 H Performed by cer tified od grinder operator at [facility] GLUCOSE [id number] 11:52:00* Test Item Value Reference Range Interpretation Comme nts GLUCOSE BEDSIDE (test code = GLUBED) 176 MG/DL 70-110 H Performed by cer tified od grinder operator at [facility] GLUCOSE [id number] 10:24:00* Test Item Value Reference Range Interpretation Comme nts GLUCOSE BEDSIDE (test code = GLUBED) 149 MG/DL 70-110 H Performed by cer tified od grinder operator at [facility] GLUCOSE [id number] 06:59:00* Test Item Value Reference Range Interpretation Comme nts GLUCOSE BEDSIDE (test code = GLUBED) 141 MG/DL 70-110 H Performed by cer tified od grinder operator at [facility] BASIC METABOLIC [id number] 04:19:00* Test Item Value Reference Range Interpretation Comme nts SODIUM (test code = NA) 135 mEq/L 134-147 N POTASSIUM (test code = K) 4.3 mEq/L 3.4-5.0 N CHLORIDE (test code = CL) 106 mEq/L 100-108 N CARBON DIOXIDE (test code = CO2) 21 mEq/l 21-33 N ANION GAP (test code = GAP) 13 0-20 N GLUCOSE (test code = GLU) 113 mg/dL 77-141 N NOTE: NEW NORMAL RANGE BLOOD UREA NITROGEN (test code = BUN) 18 mg/dL 7-25 N NOTE: NEW NORM AL RANGE GLOMERULAR FILTRATION RATE (test code = GFR) 99.6 90-95 H The Glomerular Filtration Rate is a calculated parameterbased on serum Creatinine, patient age and sex. GFR valuesless than 60 mL/min/1.73 square meters are indicative ofChronic Kidney Disease. Values less than 15 mL/min/1.73square meters indicate Kidney failure. The calculation forGFR is based on the CKD-EPI (202) calculation. This formulais race indifferent and is the recommended formula for GFRby the National Kidney Foundation for Adults.The GFR will not calculate if the sex is unknown or if thepatient's age is <18 years. CREATININE (test code = CREAT) 0.9 mg/dL 0.6-1.3 N CALCIUM (test code = CA) 9.2 mg/dL 8.0-10.5 N [id number] 04:19:00* Test Item Value Reference Range Interpretation Comme nts MAGNESIUM (test code = MAG) 1.68 mg/dL 1.6-2.6 N NOTE: NEW NORMAL RANGE CBC W/AUTO [id number] 04:12:00* Test Item Value Reference Range Interpretation Comme nts WHITE BLOOD CELL (test code = WBC) 7.8 x10 3/uL 4.5-11.0 N RED BLOOD CELL (test code = RBC) 3.93 x10 6/uL 4.00-5.60 L HEMOGLOBIN (test code = HGB) 11.7 g/dL 12.5-16.9 L HEMATOCRIT (test code = HCT) 35.6 % 37.5-50.7 L MEAN CELL VOLUME (test code = MCV) 90.6 fL 81.0-99.0 N MEAN CELL HGB (test code = MCH) 29.8 pg 27.0-33.0 N MEAN CELL HGB CONCETRATION (test code = MCHC) 32.9 g/dL 33.0-37.0 L RED CELL DISTRIBUTION WIDTH CV (test code = RDW) 12.3 % 11.5-14.5 N RED CELL DISTRIBUTION WIDTH SD (test code = RDW-SD) 40.6 fL 37.0-54.0 N PLATELET COUNT (test code = PLT) 278 x10 3/uL 150-400 N MEAN PLATELET VOLUME (test c ode = MPV) 10.0 fL 7.0-9.0 H NEUTROPHIL % (test code = NT%) 68.0 % 56.0-77.0 N IMMATURE GRANULOCYTE % (test code = IG%) 0.6 % 0.0-2.0 N LYMPHOCYTE % (test code = LY%) 21.2 % 14.0-32.0 N MONOCYTE % (test code = MO%) 7.9 % 4.8-9.0 N EOSINOPHIL % (test code = EO%) 1.9 % 0.3-3.7 N BASOPHIL % (test code = BA%) 0.4 % 0.0-2.0 N NUCLEATED RBC % (test code = NRBC%) 0.0 % 0-0 N NEUTROPHIL # (test code = NT#) 5.28 x10 3/uL 2.0-7.6 N IMMATURE GRANULOCYTE # (test code = IG#) 0.05 x10 3/uL 0.00-0.03 H LYMPHOCYTE # (test code = LY#) 1.65 x10 3/uL 1.0-3.8 N MONOCYTE # (test code = MO#) 0.61 x10 3/uL 0.1-0.8 N EOSINOPHIL # (test code = EO#) 0.15 x10 3/uL 0.0-0.2 N BASOPHIL # (test code = BA#) 0.03 x10 3/uL 0.0-0.2 N NUCLEATED RBC # (test code = NRBC#) 0.00 x10 3/uL 0.0-0.1 N GLUCOSE [id number] 20:48:00* Test Item Value Reference Range Interpretation Comme [facility] GLU[facility]SE BEDSIDE (test code = GLUBED) 276 MG/DL 70-110 H Performed by [facility] at [facility] GLUCOSE [id number] 17:27:00* Test Item Value Reference Range Interpretation Comme [facility] GLUCOSE BEDSIDE (test code = GLUBED) 265 MG/DL 70-110 H Performed by [facility] at [facility] GLUCOSE [id number] 12:42:00* Test Item Value Reference Range Interpretation Comme [facility] GLUCOSE BEDSIDE (test code = GLUBED) 284 MG/DL 70-110 H Performed by [facility] at [facility] - MRI LOW EXT W/O CONT [id number] 12:04:00 [facility] 1965 Sex: M FAX: Domenic Banerjee MD [phone] [place]: St: ADM FAX: Miguel MoeBetty DPM [phone] ------ Name: JONG RIVAS [facility] : 1965 Age/S: 58/M [address] [place] [address] Unit #: [id number] Loc: .[address] [place] [address] Phys: Betty Moe DP Acct: [id number] Dis Date: Status: ADM IN PHONE #: [phone] Exam Date: 04/23/2023 1034 FAX #: [phone] Reason: WOUND LEFT FOOT, OSTEOMYELITIS EXAMS: CPT CODE: [id number] [place] [address] Site ID: [id number] HISTORY: Left foot wound, osteomyelitis COMPARISON: Left foot x-rays April 21, 2023 TECHNIQUE: Multiplanar, multisequence MRI of the left mid to forefoot was performed without intravenous contrast FINDINGS: 1 cm long focus of deep tissue ulceration at the plantar/lateral aspect of the 5th metatarsal phalangeal joint is associated with 5th MTP joint effusion and aggressive osteomyelitis type signal changes throughout the 5th metatarsalhead and shaft and proximal 2/3rds of the 5th proximal phalanx. This is superimposed upon what appears to be an occult stress fracture of the 5th metatarsal neck. No drainable soft tissue abscess. Noother site of concern for active bony infection. IMPRESSION: 5th MTP effusion/possible septic arthritis with osteomyelitis changes as detailed. No drainable soft tissue abscess. at 1204 Reported and signed by: Aaron Goldberg M.D. CC: Domenic Rainey MD; Betty Moe DPM Technologist: RT Melissa(R)(MR) Trnscrd Date/Time/By: 04/23/2023 (4629) : By: [email or web address] Orig Print D/T: S: 04/23/2023 (0535) PAGE 1 Signed [id number] 10:09:00* Test Item Value Reference Range Interpretation Comme nts MAGNESIUM (test code = MAG) 1.72 mg/dL 1.6-2.6 N NOTE: NEW NORMAL RANGE GLUCOSE [id number] 09:19:00* Test Item Value Reference Range Interpretation Comme nts GLUCOSE BEDSIDE (test code = GLUBED) 143 MG/DL 70-110 H Performed by mila alexandra od grinder operator at [facility] BASIC METABOLIC [id number] 06:22:00* Test Item Value Reference Range Interpretation Comme nts SODIUM (test code = NA) 137 mEq/L 134-147 N POTASSIUM (test code = K) 3.9 mEq/L 3.4-5.0 N CHLORIDE (test code = CL) 105 mEq/L 100-108 N CARBON DIOXIDE (test code = CO2) 22 mEq/l 21-33 N ANION GAP (test code = GAP) 14 0-20 N GLUCOSE (test code = GLU) 131 mg/dL 77-141 N NOTE: NEW NORMAL RANGE BLOOD UREA NITROGEN (test code = BUN) 25 mg/dL 7-25 N NOTE: NEW NORM AL RANGE GLOMERULAR FILTRATION RATE (test code = GFR) 78.3 90-95 L The Glomerular Filtration Rate is a calculated parameterbased on serum Creatinine, patient age and sex. GFR valuesless than 60 mL/min/1.73 square meters are indicative ofChronic Kidney Disease. Values less than 15 mL/min/1.73square meters indicate Kidney failure. The calculation forGFR is based on the CKD-EPI (2020) calculation. This formulais race indifferent and is the recommended formula for GFRby the National Kidney Foundation for Adults.The GFR will not calculate if the sex is unknown or if thepatient's age is <18 years. CREATININE (test code = CREAT) 1.1 mg/dL 0.6-1.3 N CALCIUM (test code = CA) 9.4 mg/dL 8.0-10.5 N CBC W/AUTO [id number] 06:06:00* Test Item Value Reference Range Interpretation Comme nts WHITE BLOOD CELL (test code = WBC) 10.1 x10 3/uL 4.5-11.0 N RED BLOOD CELL (test code = RBC) 4.24 x10 6/uL 4.00-5.60 N HEMOGLOBIN (test code = HGB) 12.7 g/dL 12.5-16.9 N HEMATOCRIT (test code = HCT) 38.4 % 37.5-50.7 N MEAN CELL VOLUME (test code = MCV) 90.6 fL 81.0-99.0 N MEAN CELL HGB (test code = MCH) 30.0 pg 27.0-33.0 N MEAN CELL HGB CONCETRATION (test code = MCHC) 33.1 g/dL 33.0-37.0 N RED CELL DISTRIBUTION WIDTH CV (test code = RDW) 12.3 % 11.5-14.5 N RED CELL DISTRIBUTION WIDTH SD (test code = RDW-SD) 40.8 fL 37.0-54.0 N PLATELET COUNT (test code = PLT) 332 x10 3/uL 150-400 N MEAN PLATELET VOLUME (test c ode = MPV) 10.3 fL 7.0-9.0 H NEUTROPHIL % (test code = NT%) 71.8 % 56.0-77.0 N IMMATURE GRANULOCYTE % (test code = IG%) 0.6 % 0.0-2.0 N LYMPHOCYTE % (test code = LY%) 18.0 % 14.0-32.0 N MONOCYTE % (test code = MO%) 8.4 % 4.8-9.0 N EOSINOPHIL % (test code = EO%) 0.8 % 0.3-3.7 N BASOPHIL % (test code = BA%) 0.4 % 0.0-2.0 N NUCLEATED RBC % (test code = NRBC%) 0.0 % 0-0 N NEUTROPHIL # (test code = NT#) 7.28 x10 3/uL 2.0-7.6 N IMMATURE GRANULOCYTE # (test code = IG#) 0.06 x10 3/uL 0.00-0.03 H LYMPHOCYTE # (test code = LY#) 1.82 x10 3/uL 1.0-3.8 N MONOCYTE # (test code = MO#) 0.85 x10 3/uL 0.1-0.8 H EOSINOPHIL # (test code = EO#) 0.08 x10 3/uL 0.0-0.2 N BASOPHIL # (test code = BA#) 0.04 x10 3/uL 0.0-0.2 N NUCLEATED RBC # (test code = NRBC#) 0.00 x10 3/uL 0.0-0.1 N VANCOMYCIN [id number] 03:56:00* Test Item Value Reference Range Interpretation Comme nts VANCOMYCIN TROUGH (test code = VANCT) 12.1 mcg/mL 10.0-20.0 N 10-15 mcg/mL - Cellulitis, Urinary Tract Infection. 15-20 mcg/mL - Bacteremia, Infective Endocarditis, Meningitis, Osteomyelitis, Pneumonia, Severe Skin/Soft-Tissue Infection, Spinal Abscess. GLUCOSE [id number] 21:34:00* Test Item Value Reference Range Interpretation Comme nts GLUCOSE BEDSIDE (test code = GLUBED) 197 MG/DL 70-110 H Performed by cer tified od grinder operator at [facility] GLUCOSE [id number] 17:54:00* Test Item Value Reference Range Interpretation Comme nts GLUCOSE BEDSIDE (test code = GLUBED) 182 MG/DL 70-110 H Performed by cer tifMindmancer od grinder operator at [facility] - XR KNEE 1 OR 2 V [id number] 14:35:00 [facility] 1965 Sex: M FAX: Mirian Robin NP [phone] [place]: St: ADM FAX: Domenic Banerjee MD [phone] Name: JONG RIVAS [facility] : 1965 Age/S: 58/M [address] [place] [address] Unit #: [id number] Loc: G.33[address] [place] [address] Phys: Mirian Robin NP Acct: [id number] Dis Date: Status: ADM IN PHONE #: [phone] Exam Date: 04/22/20238 FAX #: [phone] Reason: PAIN ON LEFT KNEE EXAMS: CPT CODE: [id number] XR KNEE 1 OR 2 V LT [address]91 Left knee History: PAIN ON LEFT KNEE Comparison: None at this time Location: [facility] 2 views of the left knee are submitted. No acute fractures and no dislocations are identified. There is fragmentation of the anterior tibial tuberosity The joint space is unremarkable. There is soft tissue swelling anteriorly. IMPRESSION: There is no radiographic evidence of acute bone injury. There is fragmentation of the anterior tibial tuberosity, which could be due to an old or chronic injury. There is anterior soft tissue swelling. at 1435 Reported and signed by: Montana Salomon M.D. CC: Mirian Robin NP; Domenic Rainey MD Technologist: RT Cedric(R) Trnscrd Date/Time/By: 04/22/2023 (7795) : By: HelderPMT Orig Print D/T: S: 04/22/2023 (7695) PAGE 1 Signed ReportBASIC METABOLIC [id number] 05:54:00* Test Item Value Reference Range Interpretation Comme nts SODIUM (test code = NA) 139 mEq/L 134-147 N POTASSIUM (test code = K) 4.3 mEq/L 3.4-5.0 N CHLORIDE (test code = CL) 108 mEq/L 100-108 N CARBON DIOXIDE (test code = CO2) 22 mEq/l 21-33 N ANION GAP (test code = GAP) 14 0-20 N GLUCOSE (test code = GLU) 124 mg/dL 77-141 NOTE: NEW NORMAL RANGE BLOOD UREA NITROGEN (test code = BUN) 17 mg/dL 7-25 N NOTE: NEW NORM AL RANGE GLOMERULAR FILTRATION RATE (test code = GFR) 99.6 90-95 H The Glomerular Filtration Rate is a calculated parameterbased on serum Creatinine, patient age and sex. GFR valuesless than 60 mL/min/1.73 square meters are indicative ofChronic Kidney Disease. Values less than 15 mL/min/1.73square meters indicate Kidney failure. The calculation forGFR is based on the CKD-EPI (202) calculation. This formulais race indifferent and is the recommended formula for GFRby the National Kidney Foundation for Adults.The GFR will not calculate if the sex is unknown or if thepatient's age is <18 years. CREATININE (test code = CREAT) 0.9 mg/dL 0.6-1.3 N CALCIUM (test code = CA) 9.0 mg/dL 8.0-10.5 N CBC W/AUTO [id number] 05:20:00* Test Item Value Reference Range Interpretation Comme nts WHITE BLOOD CELL (test code = WBC) 8.6 x10 3/uL 4.5-11.0 N RED BLOOD CELL (test code = RBC) 3.89 x10 6/uL 4.00-5.60 L HEMOGLOBIN (test code = HGB) 11.5 g/dL 12.5-16.9 L HEMATOCRIT (test code = HCT) 36.2 % 37.5-50.7 L MEAN CELL VOLUME (test code = MCV) 93.1 fL 81.0-99.0 MEAN CELL HGB (test code = MCH) 29.6 pg 27.0-33.0 N MEAN CELL HGB CONCETRATION (test code = MCHC) 31.8 g/dL 33.0-37.0 L RED CELL DISTRIBUTION WIDTH CV (test code = RDW) 12.5 % 11.5-14.5 N RED CELL DISTRIBUTION WIDTH SD (test code = RDW-SD) 42.6 fL 37.0-54.0 N PLATELET COUNT (test code = PLT) 301 x10 3/uL 150-400 N MEAN PLATELET VOLUME (test c ode = MPV) 10.1 fL 7.0-9.0 H NEUTROPHIL % (test code = NT%) 66.1 % 56.0-77.0 N IMMATURE GRANULOCYTE % (test code = IG%) 0.4 % 0.0-2.0 N LYMPHOCYTE % (test code = LY%) 23.5 % 14.0-32.0 N MONOCYTE % (test code = MO%) 7.4 % 4.8-9.0 N EOSINOPHIL % (test code = EO%) 2.0 % 0.3-3.7 N BASOPHIL % (test code = BA%) 0.6 % 0.0-2.0 N NUCLEATED RBC % (test code = NRBC%) 0.0 % 0-0 N NEUTROPHIL # (test code = NT#) 5.66 x10 3/uL 2.0-7.6 N IMMATURE GRANULOCYTE # (test code = IG#) 0.03 x10 3/uL 0.00-0.03 N LYMPHOCYTE # (test code = LY#) 2.01 x10 3/uL 1.0-3.8 N MONOCYTE # (test code = MO#) 0.63 x10 3/uL 0.1-0.8 N EOSINOPHIL # (test code = EO#) 0.17 x10 3/uL 0.0-0.2 N BASOPHIL # (test code = BA#) 0.05 x10 3/uL 0.0-0.2 N NUCLEATED RBC # (test code = NRBC#) 0.00 x10 3/uL 0.0-0.1 N GLUCOSE [id number] 21:11:00* Test Item Value Reference Range Interpretation Comme [facility] GL[facility] B[facility] (test code = GLUBED) 232 MG/DL 70-110 H Performed by cer tified od grinder operator at [facility] GLUCOSE [id number] 17:54:00* Test Item Value Reference Range Interpretation Comme [facility] GLU[facility]SE BEDSIDE (test code = GLUBED) 133 MG/DL 70-110 H Performed by cer tified od grinder operator at [facility] - XR FOOT 3 + V [id number] 14:35:00 [facility] : 1965 Sex: M FAX: Domenic Banerjee MD [phone] [place]: St: ADM FAX: Temo Browning MD [phone] ------ Name: JONG RIVAS [facility] : 1965 Age/S: 58/M [address] [place] [address] Unit #: [id number] Loc: G.[id number] [place] [address] Phys: Temo Iniguez MD Acct: [id number] Dis Date: Status: ADM IN PHONE #: [phone] Exam Date: 04/21/2023 1423 FAX #: [phone] Reason: left foot ulcer with bone exposure EXAMS: CPT CODE: [id number] XR FOOT 3 + [place] [id number] EXAM: - XR FOOT 3 + V LT HISTORY: left foot ulcer with bone exposure LOCATION CODE:T18 COMPARISON: Radiographs 04/16/2023 FINDINGS: Interval increased osteopenia and erosion involving the fifth metatarsal head and adjacent fifth proximal phalanx base about the fifth MTP joint compared to recent prior imaging. Adjacent soft tissue gas is consistent with known ulcer. Remaining osseous structures are stable in appearance and without distinct acute abnormality. IMPRESSION: Interval progression of osteomyelitis involving the fifth metatarsal head and fifth proximal phalanx base about the MTP joint since the prior study from 04/16/2023. at 1435 Reported and signed by: Brett Elizabeth M.D. CC: Domenic Rainey MD; Temo Iniguez MD Technologist: Merlin Lyn RT(R) Trnscrd Date/Time/By: 04/21/2023 (2597) : By: [email or web address] Orig Print D/T: S: 04/21/2023 (9928) PAGE 1 Signed ReportGLUCOSE [id number] 12:58:00* Test Item Value Reference Range Interpretation Comme nts GLUCOSE BEDSIDE (test code = GLUBED) 172 MG/DL 70-110 H Performed by cer tified od grinder operator at [facility] SED RATE [id number] 10:33:00* Test Item Value Reference Range Interpretation Comme nts SED RATE WESTERGREN (test co de = SEDW) 87 mm/hr 0-15 H C REACTIVE [id number] 10:30:00* Test Item Value Reference Range Interpretation Comme nts C REACTIVE PROTEIN (test cod e = CRP) 25.0 mg/L <10.0 H UA RFLX MICR CULT IF [id number] 05:51:00* Test Item Value Reference Range Interpretation Comme nts UA COLOR (test code = COLU) YELLOW YEL/STRAW UA APPEARANCE (test code = APPU) CLEAR CLEAR UA GLUCOSE DIPSTICK (test co de = DGLUU) 3+ NEGATIVE A UA BILIRUBIN DIPSTICK (test code = BILU) NEGATIVE NEGATIVE UA KETONE DIPSTICK (test cod e = KETU) NEGATIVE NEGATIVE UA SPECIFIC GRAVITY (test co de = SGU) 1.011 1.005-1.030 N UA BLOOD DIPSTICK (test code = BECKY) NEGATIVE NEGATIVE UA PH DIPSTICK (test code = [place]) 5.0 5.0-7.0 N UA PROTEIN DIPSTICK (test co de = PROU) NEGATIVE NEGATIVE UA UROBILINIOGEN DIPSTICK (t est code = URO) 0.2 mg/dL 0.2-1.0 UA NITRITE DIPSTICK (test co de = JASMINA) NEGATIVE NEGATIVE UA LEUKOCYTE ESTERASE DIPSTI CK (test code = LEUU) NEGATIVE NEGATIVE UA WBC (test code = WBCU) 0-3 WBC/HPF 0-3 UA RBC (test code = RBCU) 0-3 RBC/HPF 0-3 UA WBC NO REFLEX (test code = WBCUCL) 0-3 WBC/HPF 0-3 UA BACTERIA (test code = BACU) TRACE /HPF NONE SEEN UA SQUAMOUS CELLS (test code = SQU) 0-5 /HPF NONE SEEN UA TRANSITIONAL CELLS (test code = TRANU) TRACE /HPF NONE SEEN UA MUCUS (test code = MUCU) TRACE /LPF NONE SEEN Indication for culture: RiskForSepsis-no oth srcSpecimen Description: CLEAN CATCHBASIC METABOLIC [id number] 03:13:00* Test Item Value Reference Range Interpretation Comme nts SODIUM (test code = NA) 137 mEq/L 134-147 N POTASSIUM (test code = K) 4.0 mEq/L 3.4-5.0 N CHLORIDE (test code = CL) 105 mEq/L 100-108 N CARBON DIOXIDE (test code = CO2) 24 mEq/l 21-33 N ANION GAP (test code = GAP) 12 0-20 N GLUCOSE (test code = GLU) 181 mg/dL 77-141 H NOTE: NEW NORMAL RANGE BLOOD UREA NITROGEN (test code = BUN) 18 mg/dL 7-25 N NOTE: NEW NORM AL RANGE GLOMERULAR FILTRATION RATE (test code = GFR) 78.3 90-95 L The Glomerular Filtration Rate is a calculated parameterbased on serum Creatinine, patient age and sex. GFR valuesless than 60 mL/min/1.73 square meters are indicative ofChronic Kidney Disease. Values less than 15 mL/min/1.73square meters indicate Kidney failure. The calculation forGFR is based on the CKD-EPI (2020) calculation. This formulais race indifferent and is the recommended formula for GFRby the National Kidney Foundation for Adults.The GFR will not calculate if the sex is unknown or if thepatient's age is <18 years. CREATININE (test code = CREAT) 1.1 mg/dL 0.6-1.3 N CALCIUM (test code = CA) 9.3 mg/dL 8.0-10.5 N [id number] 03:13:00* Test Item Value Reference Range Interpretation Comme nts MAGNESIUM (test code = MAG) 1.61 mg/dL 1.6-2.6 N NOTE: NEW NORMAL RANGE CBC W/AUTO [id number] 02:56:00* Test Item Value Reference Range Interpretation Comme nts WHITE BLOOD CELL (test code = WBC) 7.0 x10 3/uL 4.5-11.0 N RED BLOOD CELL (test code = RBC) 4.05 x10 6/uL 4.00-5.60 N HEMOGLOBIN (test code = HGB) 12.0 g/dL 12.5-16.9 L HEMATOCRIT (test code = HCT) 36.5 % 37.5-50.7 L MEAN CELL VOLUME (test code = MCV) 90.1 fL 81.0-99.0 N MEAN CELL HGB (test code = MCH) 29.6 pg 27.0-33.0 N MEAN CELL HGB CONCETRATION (test code = MCHC) 32.9 g/dL 33.0-37.0 L RED CELL DISTRIBUTION WIDTH CV (test code = RDW) 12.0 % 11.5-14.5 N RED CELL DISTRIBUTION WIDTH SD (test code = RDW-SD) 39.7 fL 37.0-54.0 N PLATELET COUNT (test code = PLT) 305 x10 3/uL 150-400 N MEAN PLATELET VOLUME (test c ode = MPV) 10.5 fL 7.0-9.0 H NEUTROPHIL % (test code = NT%) 61.3 % 56.0-77.0 N IMMATURE GRANULOCYTE % (test code = IG%) 0.4 % 0.0-2.0 N LYMPHOCYTE % (test code = LY%) 27.0 % 14.0-32.0 N MONOCYTE % (test code = MO%) 8.9 % 4.8-9.0 N EOSINOPHIL % (test code = EO%) 1.7 % 0.3-3.7 N BASOPHIL % (test code = BA%) 0.7 % 0.0-2.0 N NUCLEATED RBC % (test code = NRBC%) 0.0 % 0-0 N NEUTROPHIL # (test code = NT#) 4.28 x10 3/uL 2.0-7.6 N IMMATURE GRANULOCYTE # (test code = IG#) 0.03 x10 3/uL 0.00-0.03 N LYMPHOCYTE # (test code = LY#) 1.89 x10 3/uL 1.0-3.8 N MONOCYTE # (test code = MO#) 0.62 x10 3/uL 0.1-0.8 N EOSINOPHIL # (test code = EO#) 0.12 x10 3/uL 0.0-0.2 N BASOPHIL # (test code = BA#) 0.05 x10 3/uL 0.0-0.2 N NUCLEATED RBC # (test code = NRBC#) 0.00 x10 3/uL 0.0-0.1 N PROTHROMBIN [id number] 22:47:00* Test Item Value Reference Range Interpretation Comme nts PROTHROMBIN TIME PATIENT (test code = PTP) 14.5 SECONDS 9.3-12.9 H INTERNATIONAL NORMAL RATIO (test code = INR) 1.3 0.8-1.2 H TARGET INR BY INDICATION Indication INR1. Prophylaxis of venous thrombosis 2.0 - 3.0 (orthopedic surgery), Prophylaxis of venous thrombosis (other than high-risk surgery), Treatment of Deep Vein Thrombosis/Pulmonary Embolism, Prevention of systemic embolism - Tissue heart valves, Acute Myocardial Infarction (to prevent systemic embolism), Valvular heart disease, Atrial Fibrillation, Bileaflet mechanical valve in aortic position.2. Mechanical prosthetic valves (high risk), 2.5 - 3.5 Presence of Lupus Anticoagulant or Antiphospholipid Antibodies, Prevention of systemic embolism - Acute Myocardial Infarction (to prevent recurrent infarct). THROMBOPLASTIN TIME [id number] 22:47:00* Test Item Value Reference Range Interpretation Comme nts THROMBOPLASTIN TIME PARTIAL (test code = PTT) 39.3 Seconds 25.0-39.5 N Therapeutic Rang e: 50.4 - 88.3 Seconds Effective 10/03/2018 GLUCOSE [id number] 21:27:00* Test Item Value Reference Range Interpretation Comme nts GLUCOSE BEDSIDE (test code = GLUBED) 325 MG/DL 70-110 H Performed by cer tified od grinder operator at [facility] GLUCOSE [id number] 17:40:00* Test Item Value Reference Range Interpretation Comme nts GLUCOSE BEDSIDE (test code = GLUBED) 266 MG/DL 70-110 H Performed by cer tified od grinder operator at [facility] - DOP ART SGL LEVEL [id number] 16:22:00 CHRIS PICKERINGName: JONG RIVAS : 1965 Sex: M Name: JONG RIVAS [facility] Robert Pickering : 1965 Age/S: 58 / M [address] [place] [address] Blvd Unit #: [id number] Loc: [place] [address] Phys: Mirian Robin NP Acct: [id number] Dis Date: Status: ADM IN PHONE #: [phone] Exam Date: 2023 1608 FAX #: [phone] Reason: EVALUATE FOR PAD, HX FOOT ULCER EXAMS: CPT CODE: [id number] DOP ART SGL LEVEL ANALI 22988 EXAM: - DOP ART SGL LEVEL ANALI INDICATION: EVALUATE FOR PAD, HX FOOT ULCER Technique: Grayscale, color and duplex Doppler spectral analysis utilized during sonographic imaging. Location: T18. Findings: Right Mixed triphasic, biphasic and monophasic waveforms. No focal areas of abnormally elevated velocities identified to suggest hemodynamically significant narrowing. Major arteries appear to be patent. Three-vessel runoff. Dorsalis pedis artery appears to be patent. PRUDENCE: Appear to be within normal limits. Left Mixed triphasic, biphasic and monophasic waveforms. No focal areas of abnormally elevated velocities identified to sugg est hemodynamically significant narrowing. Major arteries appear to be patent. Three-vessel runoff.Dorsalis pedis artery appears to be patent. PRUDENCE: Could not be calculated. IMPRESSION: No hemodynamically significant narrowing noted involving the major arteries. Left PRUDENCE could not be calculated. Please refer to the findings section for additional details. at 1622 Reported and signed by: Ko Montgomery M.D. CC: Mirian Robin NP; Domenic Rainey MD Technologist: Radha Francis RDMS(AB) Trnscb Date/Time: 2023 (9533) [email or web address] Orig Print D/T: S: 2023 (2309) Probe: PAGE 1 Signed Report- CT CHEST W/O [id number] 13:36:00 [facility] 1965 Sex: M Name: JONG RIVAS [facility] : 1965 Age/S: 58 / M [address] [place] [address] Blvd Unit #: [id number] Loc: [place] [address] Phys: Mirian Robin NP Acct: [id number] Dis Date: Status: ADM IN PHONE #: [phone] Exam Date: 2023 1328 FAX #: [phone] Reason: Cardiac Surgery Pre Op EXAMS: CPT CODE: [id number] CT CHEST W/O CONTRAST 73055 EXAM: - CT CHEST W/O CONTRAST INDICATION:Cardiac Surgery Pre Op TECHNIQUE: Volumetric CT acquisition of the chest with no intravenous contrast. Location:T18 One or more of the following dose-optimizing techniques was utilized for this exam:automated exposure control, adjustment of the mA and/or kV according to patient size, and/or use of iterative reconstruction technique. Unless otherwise specified, incidental findings do not require dedicated imaging follow-up. FINDINGS: Lung and Pleura: No pneumonia, pleural effusion or pneumothorax seen. Small amount of right lung base scarring/atelectasis with a cystic focus measuring 2.3 cm.Mediastinum: No cardiomegaly or pericardial effusion seen. Aorta does not appear aneurysmal. Coronary artery calcifications identified. Lower Neck: Visualized thyroid appears unremarkable. Lymph Nodes: No enlarged lymph nodes seen. Upper abdomen: Cholelithiasis. Right nephrolithiasis. Soft Tissues: No significant abnormality seen Bones:No acute or destructive osseous process seen. IMPRESSION: No cardiomegaly or pericardial effusion seen. Aorta does not appear aneurysmal. Please refer to the findings section for additional details. at 1336 Reported and signed by: Ko Montgomery M.D. PAGE 1 Signed Report (CONTINUED) Name: EVELYNJONG [facility] : 1965 Age/S: 58 / M [address] [place] [address] Unit #: [id number] Loc: [place] [address] Phys: Mirian Robin NP Acct: [id number] Dis Date: Status: ADM IN PHONE #: [phone] Exam Date: 2023 1328 FAX #: [phone] Reason: Cardiac Surgery Pre Op EXAMS: CPT CODE: [id number] CT CHEST W/O CONTRAST 68326 (Continued) CC: Mirian Robin NP; Domenic Rainey MD Technologist:Steven Fang Jr, RT(R)(CT) CTDI: DLP: Trnscb Date/Time: 2023 (1336) t.SDR.AH26 OrigPrint D/T: S: 2023 (1340) PAGE 2 Signed Report GLUCOSE [id number] 12:46:00* Test Item Value Reference Range Interpretation Comme nts GLUCOSE BEDSIDE (test code = GLUBED) 207 MG/DL 70-110 H Performed by mila alexandra od grinder operator at [facility] - US EXTREM NON VASC [id number] 12:16:00 [facility] 1965 Sex: M Name: [facility] [place] [facility] 1965 Age/S: 58 / M [address] [place] [address] Blvd Unit #: [id number] Loc: [place] [address] Phys: Viky Mclaughlin Acct: [id number] Dis Date: Status: ADM IN PHONE #: [phone] Exam Date: 2023 1048 FAX #: [phone] Reason: bilateral vein mapping and marking EXAMS: CPT CODE: [id number] US EXTREM NON VASC COMP 25126 LOCATION: B2 EXAM: Bilateral lower extremity soft tissue ultrasound INDICATION: bilateral vein mapping and marking COMPARISON:None TECHNIQUE: Real time sonography was performed with a variable frequency linear transducer. FINDINGS: Greater saphenous vein diameters were measured bilaterally for vein mapping. All veins were compressible. Right: Proximal thigh: 0.25 cm Mid thigh: 0.24 cm Distal thigh: 0.19 cm Proximal calf: 0.19 cm Mid calf: 0.13 cm Distal calf: 0.29 cm Left: Proximal thigh: 0.54 cm Mid thigh: 0.42 cm Distal thigh: 0.41 cm Proximal calf: 0.40 cm Mid calf: 0.36 cm Distal calf: 0.41 cm IMPRESSION: Vein ryley urements as above without evidence of intraluminal thrombus. at 1216 Reported and signed by: Sylvain Christina M.D. CC: Domenic Rainey MD;Viky Mclaughlin Technologist: Ariadne Field RDMS(Claudia)(BR) Trnscb Date/Time: 2023 (1216)HelderVB7 Orig Print D/T: S: 2023 (1220) Probe: PAGE 1 Signed ReportCOMPREHENSIVE METABOLIC [id number] 11:42:00* Test Item Value Reference Range Interpretation Comme nts SODIUM (test code = NA) 136 mEq/L 134-147 N POTASSIUM (test code = K) 4.4 mEq/L 3.4-5.0 N CHLORIDE (test code = CL) 106 mEq/L 100-108 N CARBON DIOXIDE (test code = CO2) 22 mEq/l 21-33 N ANION GAP (test code = GAP) 13 0-20 N GLUCOSE (test code = GLU) 203 mg/dL 77-141 H NOTE: NEW NORMAL RANGE BLOOD UREA NITROGEN (test code = BUN) 17 mg/dL 7-25 N NOTE: NEW NORM AL RANGE GLOMERULAR FILTRATION RATE (test code = GFR) 87.8 90-95 L The Glomerular Filtration Rate is a calculated parameterbased on serum Creatinine, patient age and sex. GFR valuesless than 60 mL/min/1.73 square meters are indicative ofChronic Kidney Disease. Values less than 15 mL/min/1.73square meters indicate Kidney failure. The calculation forGFR is based on the CKD-EPI (2020) calculation. This formulais race indifferent and is the recommended formula for GFRby the National Kidney Foundation for Adults.The GFR will not calculate if the sex is unknown or if thepatient's age is <18 years. CREATININE (test code = CREAT) 1.0 mg/dL 0.6-1.3 N TOTAL PROTEIN (test code = PROT) 7.3 g/dL 6.4-8.2 N ALBUMIN (test code = ALB) 3.40 g/dL 3.4-5.0 N CALCIUM (test code = CA) 9.1 mg/dL 8.0-10.5 N BILIRUBIN TOTAL (test code = BILT) 0.20 mg/dL 0.0-1.0 N SGOT/AST (test code = AST) 62 IUnit/L 8-34 H NOTE: NEW NORMAL RANGE SGPT/ALT (test code = ALT) 80 IUnit/L 10-49 H NOTE: NEW NORMAL RANGE ALKALINE PHOSPHATASE TOTAL (test code = ALKP) 101 IUnit/L 20-125 N LIPID PROFILE (CORONARY RISK)2023 11:42:00* Test Item Value Reference Range Interpretation Comme nts TRIGLYCERIDES (test code = TRIG) 160 mg/dL 40-150 H CHOLESTEROL (test code = CHOL) 145 mg/dL <200 CHOLESTEROL/HDL RATIO (test code = CHOLHDL) 6.84 RATIO 3.43-4.97 H RISK ASSOCIATED WITH CHOL/HDL RATIOS: RISK MALE FEMALE1/2 AVERAGE 3.43 3.27AVERAGE 4.97 4.442X AVERAGE 9.55 7.053X AVERAGE 23.39 11.04 NOTE THAT THE REFERENCE VALUE IS RELATEDTO RISK LEVELS RECOMMENDED BY THE NATL.HEART, LUNG, AND BLOOD INST. HDL CHOLESTEROL (test code = HDL) 21.2 MG/DL 40-60 L Note change in REFERENCE RANGE due to change in REAGENT.HDL Interpretation < 40.0 mg/dL Low (undesirable, high risk)> 60.0 mg/dL High (desirable, low risk) Reference interval for healthy adults was established by theNational Cholesterol Education Program (NCEP). LIPOPROTEIN LDL (test code = LDL) 92.0 mg/dL 0-100 N <100 [id number] 0-129 NEAR OPTIMAL/ABOVE [id number] HIGH>VU=488 VERY HIGH*Guidelines provided by the National Cholesterol EducationProgram Adult Treatment Panel III PROTHROMBIN [id number] 11:33:00* Test Item Value Reference Range Interpretation Comme [facility] PROT[facility]OMBIN TIME PATIENT (test code = PTP) 15.5 SECONDS 9.3-12.9 H INTERNATIONAL NORMAL RATIO (test code = INR) 1.4 0.8-1.2 H TARGET INR BY INDICATION Indication INR1. Prophylaxis of venous thrombosis 2.0 - 3.0 (orthopedic surgery), Prophylaxis of venous thrombosis (other than high-risk surgery), Treatment of Deep Vein Thrombosis/Pulmonary Embolism, Prevention of systemic embolism - Tissue heart valves, Acute Myocardial Infarction (to prevent systemic embolism), Valvular heart disease, Atrial Fibrillation, Bileaflet mechanical valve in aortic position.2. Mechanical prosthetic valves (high risk), 2.5 - 3.5 Presence of Lupus Anticoagulant or Antiphospholipid Antibodies, Prevention of systemic embolism - Acute Myocardial Infarction (to prevent recurrent infarct). THROMBOPLASTIN TIME [id number] 11:33:00* Test Item Value Reference Range Interpretation Comme [facility] THROMBOPLASTIN TIME PARTIAL (test code = PTT) 35.6 Seconds 25.0-39.5 N Therapeutic Rang e: 50.4 - 88.3 Seconds Effective 10/03/2018 HGBA1C%2023 11:31:00* Test Item Value Reference Range Interpretation Comme nts HGBA1C% (test code = HGBA1C%) 8.3 %A1C 4.8-6.0 H - XR CHEST 1 [id number] 10:51:00 [facility] 1965 Sex: M FAX: Mirian Robin NP [phone] [place]: St: ADM FAX: Domenic Banerjee MD [phone] Name: JONG RIVAS [facility] : 1965 Age/S: 58/M [address] [place] [address] Unit #: [id number] Loc: G.4412 [place] [address] Phys: Mirian Robin NP Acct: [id number] Dis Date: Status: ADM IN PHONE #: [phone] Exam Date: 2023 1048 FAX #: [phone] Reason: Cardiac Surgery Pre Op EXAMS: CPT CODE: [id number] XR CHEST 1 V 08697 LOCATION: B2 EXAM: - XR CHEST 1 V HISTORY: Cardiac Surgery Pre Op COMPARISON: 03/28/2017 FINDINGS: A right peripherally inserted central catheter tip projects over the superior vena cava. The lungs are clear. No pleural effusion or pneumothorax. The cardiac silhouette is within normal limits. No acute osseous abnormalities. IMPRESSION: Right PICC in place. No acute cardiopulmonary disease. at 1051 Reported and signed by: Sylvain Christina M.D. CC: Mirian Robin COPPER PLATER; Domenic Rainey MD Technologist: RT Humera(R) Trnscrd Date/Time/By: 2023 (4786) : By: Felix.VB7 Orig Print D/T: S: 2023 (9584) PAGE 1 Signed Report- DUP EXTRACRANIAL ANLAI 2023 10:19:00 [facility] 1965 Sex: M Name: JONG RIVAS [facility] : 1965 Age/S: 58 / M [address] [place] [address] Unit #: [id number] Loc: [place] [address] Phys: Viky Mclaughlin Acct: [id number] Dis Date: Status: ADM IN PHONE #: [phone] Exam Date: 2023 1010 FAX #: [phone] Reason: R/O stenosis EXAMS: CPT CODE: [id number] DUP EXTRACRANIAL ANALI 26986 LOCATION: B2 CAROTID DUPLEX ULTRASOUND HISTORY: R/O stenosis TECHNIQUE: Grayscale real-time B-mode imaging with spectral and color flow Doppler analysis was performed of the neck to evaluate the extracranial carotid system. COMPARISON: None FINDINGS: Degree of stenosis is based on velocity criteria as defined by the Society of Radiologists in Ultra sound Consensus Conference Radiology 2003. Peak systolic velocities in cm/sec: Right CCA: 51 RightICA: 82 Right ECA: 68 Left CCA: 72 Left ICA: 94 Left ECA: 57 Right IC/CC ratio: 1.0 Left IC/CC ratio: 1.2 Mild scattered atherosclerotic plaque without hemodynamically significant stenosis. Antegradeflow seen in both vertebral arteries. IMPRESSION: Mild stenosis in bilateral internal carotid arteries (less than 50%). at 1019 Reportedand signed by: Sylvain Christina M.D. PAGE 1 Signed Report (CONTINUED) Name: JONG RIVAS [facility] : 1965 Age/S: 58 / M [address] [place] [address] Blvd Unit #: [id number] Loc: [place] [address] Phys: Viky Mclaughlin Acct: [id number] Dis Date: Status: ADM IN PHONE #: [phone] Exam Date: 2023 1010 FAX #: [phone] Reason: R/O stenosis EXAMS: CPT CODE: [id number] DUP EXTRACRANIAL ANALI 00722 (Continued) CC: Domenic Rainey MD; Viky Mclaughlin Technologist: MARY Enamorado)(BR) Trnscb Date/Time: 2023 (1019) t.[email or web address].VB7 Orig Print D/T: S: 2023 (102 2) Probe: PAGE 2 Signed ReportGLUCOSE [id number] 09:13:00* Test Item Value Reference Range Interpretation Comme [facility] GLUCOSE BEDSIDE (test code = GLUBED) 127 MG/DL 70-110 H Performed by mila alexandra od grinder operator at [facility] B-TYPE NATRIURETIC [id number] 07:00:00* Test Item Value Reference Range Interpretation Comme nts B-TYPE NATRIURETIC PEPTIDE ( test code = BNP) 159.0 PG/ML 0-100 H BASIC METABOLIC [id number] 05:06:00* Test Item Value Reference Range Interpretation Comme nts SODIUM (test code = NA) 137 mEq/L 134-147 N POTASSIUM (test code = K) 4.2 mEq/L 3.4-5.0 N CHLORIDE (test code = CL) 106 mEq/L 100-108 N CARBON DIOXIDE (test code = CO2) 22 mEq/l 21-33 N ANION GAP (test code = GAP) 14 0-20 N GLUCOSE (test code = GLU) 156 mg/dL 77-141 H NOTE: NEW NORMAL RANGE BLOOD UREA NITROGEN (test code = BUN) 19 mg/dL 7-25 N NOTE: NEW NORM AL RANGE GLOMERULAR FILTRATION RATE (test code = GFR) 78.3 90-95 L The Glomerular Filtration Rate is a calculated parameterbased on serum Creatinine, patient age and sex. GFR valuesless than 60 mL/min/1.73 square meters are indicative ofChronic Kidney Disease. Values less than 15 mL/min/1.73square meters indicate Kidney failure. The calculation forGFR is based on the CKD-EPI (2020) calculation. This formulais race indifferent and is the recommended formula for GFRby the National Kidney Foundation for Adults.The GFR will not calculate if the sex is unknown or if thepatient's age is <18 years. CREATININE (test code = CREAT) 1.1 mg/dL 0.6-1.3 N CALCIUM (test code = CA) 8.7 mg/dL 8.0-10.5 N CBC W/AUTO [id number] 04:57:00* Test Item Value Reference Range Interpretation Comme nts WHITE BLOOD CELL (test code = WBC) 6.6 x10 3/uL 4.5-11.0 N RED BLOOD CELL (test code = RBC) 3.91 x10 6/uL 4.00-5.60 L HEMOGLOBIN (test code = HGB) 11.9 g/dL 12.5-16.9 L HEMATOCRIT (test code = HCT) 35.4 % 37.5-50.7 L MEAN CELL VOLUME (test code = MCV) 90.5 fL 81.0-99.0 N MEAN CELL HGB (test code = MCH) 30.4 pg 27.0-33.0 N MEAN CELL HGB CONCETRATION (test code = MCHC) 33.6 g/dL 33.0-37.0 N RED CELL DISTRIBUTION WIDTH CV (test code = RDW) 12.4 % 11.5-14.5 N RED CELL DISTRIBUTION WIDTH SD (test code = RDW-SD) 41.0 fL 37.0-54.0 N PLATELET COUNT (test code = PLT) 289 x10 3/uL 150-400 N MEAN PLATELET VOLUME (test c ode = MPV) 10.4 fL 7.0-9.0 H NEUTROPHIL % (test code = NT%) 61.7 % 56.0-77.0 N IMMATURE GRANULOCYTE % (test code = IG%) 0.3 % 0.0-2.0 N LYMPHOCYTE % (test code = LY%) 25.9 % 14.0-32.0 N MONOCYTE % (test code = MO%) 9.7 % 4.8-9.0 H EOSINOPHIL % (test code = EO%) 1.8 % 0.3-3.7 N BASOPHIL % (test code = BA%) 0.6 % 0.0-2.0 N NUCLEATED RBC % (test code = NRBC%) 0.0 % 0-0 N NEUTROPHIL # (test code = NT#) 4.06 x10 3/uL 2.0-7.6 N IMMATURE GRANULOCYTE # (test code = IG#) 0.02 x10 3/uL 0.00-0.03 N LYMPHOCYTE # (test code = LY#) 1.71 x10 3/uL 1.0-3.8 N MONOCYTE # (test code = MO#) 0.64 x10 3/uL 0.1-0.8 N EOSINOPHIL # (test code = EO#) 0.12 x10 3/uL 0.0-0.2 N BASOPHIL # (test code = BA#) 0.04 x10 3/uL 0.0-0.2 N NUCLEATED RBC # (test code = NRBC#) 0.00 x10 3/uL 0.0-0.1 N GLUCOSE [id number] 20:37:00* Test Item Value Reference Range Interpretation Comme nts GLUCOSE BEDSIDE (test code = GLUBED) 123 MG/DL 70-110 H Performed by cer ibrahima od grinder operator at [facility] ACUTE CARE VENOUS BLOOD [id number] 21:10:57* Test Item Value Reference Range Interpretation Comme nts PH (test code = 2702755314) 7.39 7.32-7.42 PCO2 NATALIYA (test code = 1842435681) 37 See_Comment L [Automated messa ge] The system which generated this result transmitted reference range: 41 - 51 mmHg. The reference range was not used to interpret this result as normal/abnormal. PO2 NATALIYA (test code = 9310672813) 51 See_Comment H [Automated messa ge] The system which generated this result transmitted reference range: 25 - 40 mmHg. The reference range was not used to interpret this result as normal/abnormal. HCO3 NATALIYA (test code = 1671012005) 22 See_Comment L [Automated messa ge] The system which generated this result transmitted reference range: 24 - 28 mEq/L. The reference range was not used to interpret this result as normal/abnormal. AC VBE(BEAKER) (test code = 6054275547) -2.6 mEq/L Lab Interpretation (test code = 59440-5) [facility]2023-01-20 20:36:37* Test Item Value Reference Range Interpretation Comme [facility] POCT GLU (test code = 2905265104) 356 mg/dL 70-110 H Lab Interpretation (test cod e = 23686-3) Abnormal [facility] [Mass/volume] in Capillary blood 2022-05-20 11:06:00* Test Item Value Reference Range Interpretation Comme [facility] Blood Glucose: mg/dl (test c ode = Blood Glucose: mg/dl) 350 [facility] [id number] 00:00:00* Test Item Value Reference Range Interpretation Comme [facility] A1C (test code = 4548-4) 8.4 HEMOGLOBIN [id number] 00:00:00* Test Item Value Reference Range Interpretation Comme [facility] A1C (test code = 4548-4) 10.9 Notes Date/Time Note Provider Source 2023-11-25 08:52:17 LVM, placed pt on waitlist Cynthia Nicolas [facility] 2023-11-24 16:21:07 Patient was last seen for a fibula fracture . Not sure what deformity this patient is referring to . [facility] 2023-11-24 15:12:40 Does pt need to be overbooked for his deformity? If so, please let PSS know [facility] 2023-11-24 14:10:24 Patient is needing appointment as he is still having issues after recent visits and has complained of a deformity. Please call to schedule sooner than December 08. Gunner Jason [facility] 2023-10-31 19:56:20 Prescriptions provided Pt verbalized understanding of instructions, pt awake alert oriented, resp reg unlabored, skin w/d, color appropriate for race, moves all ext well,pt encouraged to follow up with pcp & neuro sx. Advised to seek medical attention for new/prolonged/worsening of symptoms. No adverse reaction to meds given in ER noted upon discharge Awake, alert oriented, resp reg unlabored, skin w/d, pt leaving amb with steady gait, in no apparent distress. Dayan Szymanski RN [facility] 2023-10-31 17:11:56 Patient drove himself to ER and is unsure if he can get a ride home. [facility] 2023-10-31 17:08:54 CC: patient presents to the ER with complaints of neck pain that month ago and has worsened the past three weeks. Patient states he has been taking ibuprofen 800 mg with minimal relief. PMHx: none Awake, alert, oriented, resp reg unlabored, skin warm and dry, color appropriate for race, moves all ext without difficulty, amb without assistance. Appears in no distress. AT Alexandria Benavidez RN [facility] 2023-05-17 12:38:00 [id number] [place] [id number] PATIENT NAME: JONG RIVAS ADMIT DATE: 04/19/23 ACCOUNT NO: [id number] ROOM NO: [id number] AGE: 58 REPORT TYPE: 360 - QUERY RESPONSE DOCUMENT SEX: M ADMITTING PHYSICIAN:Domenic Rainey MD ATTENDING PHYSICIAN:Domenic Rainey MD Provider Query QUERY TEXT: Condition General 360MD Query related questions should be directed to:[facility] Coding Query Helpline Based on your clinical judgment, can you please clarify if Acute on chronic HFpEF was confirmed, Acute on chronic HFpEF not confirmed, or other more appropriate diagnosis? The patient's Clinical Indicators include: Acute on chronic heart failure with preserved ejection fraction grade I diastolic dysfunction/ Ischemic Cardiomyopathy EF 63 % 52 - 72-ECHO -04/20/23 Patient was found to have initial troponin I of 0.045. In addition, his BNP was thousand 54 pg/mL. NS 1,000 mL-MAR NS 250 mL-MAR Furosemide 40 mg/4 mL Inj-MAR Options provided: -- Respond - Create new note now -- Dismiss - Not applicable / Not valid -- Dismiss - Clinically unable to determine / Unknown -- Assign to another provider QUERY RESPONSE: Provider was clinically unable to determine a response for this query it was not heart failure Query created by: Garth Espinoza on 05/09/2023 2:15 AM at 1238 PATIENT NAME: JONG RIVAS [facility] 2023-05-17 12:38:00 [id number] [address] PATIENT NAME: JONG RIVAS ADMIT DATE: 04/19/23 ACCOUNT NO: [id number] ROOM NO: [id number] AGE: 58 REPORT TYPE: 360 - QUERY RESPONSE DOCUMENT SEX: M ADMITTING PHYSICIAN:Domenic Rainey MD ATTENDING PHYSICIAN:Domenic Rainey MD Provider Query QUERY TEXT: Condition General 360MD Query related questions should be directed to:[facility] Coding Query Helpline Based on your clinical judgment, can you please clarify if NSTEMI was confirmed, NSTEMI not confirmed, or other more appropriate diagnosis? The patient's Clinical Indicators include: NSTEMI : Cardiology Progress Note 05/04/2023 (1) Demand ischemia Acute on chronic HFpEF-Heart Failure Consultation -04/28/23 # Acute on chronic heart failure with preserved ejection fraction grade I diastolic dysfunction/ Ischemic Cardiomyopathy EF 63 % 52 - 72-ECHO -04/20/23 Patient was found to have initial troponin I of 0.045. In addition, his BNP was thousand 54 pg/mL. 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 NS 1,000 mL-MAR NS 250 mL-MAR Furosemide 40 mg/4 mL Inj-MAR Options provided: -- Respond - Create new note now -- Dismiss - Not applicable / Not valid -- Dismiss - Clinically unable to determine / Unknown -- Assign to another provider QUERY RESPONSE: Provider was clinically unable to determine a response for this query It was at outside hospital. I will not bill for NSTEMI Query created by: Garth Espinoza on 05/09/2023 2:20 AM at 1238 PATIENT NAME: JONG RIVAS [facility] 2023-05-05 14:48:00 [facility]) Endocrinology Progress Note REPORT#:[id number] REPORT STATUS: Signed REPORT INITIALIZATION DATE:05/05/23 TIME: 1448 PATIENT: JONG RIVAS UNIT #: [id number] [place] [facility] [place] AGE: 58 SEX: M ATTEND: Domenic Rainey MD ADM AUTHOR: Vlad Lay MD REPT SERVICE DT/TIME: 05/05/23 1448 * ALL edits or amendments must be made on the electronic/computer document * Subjective Patient reports: no complaints Objective General VS: Last Documented: Result Date Time Pulse Ox 97 05/05 1117 B/P 108/65 05/05 1117 B/P Mean 0.0 05/05 111 O2 Delivery Room air 05/05 111 Temp 36.8 05/05 1117 Pulse 85 05/05 1117 Resp 14 05/05 1117 FiO2 21 05/02 1527 O2 Flow Rate 0 05/01 1800 PATIENT WEIGHT: Weight (lb): 238 Weight (oz): 1.59 Weight (kg): 108.000 Medications: Active Meds + DC'd Last 24 Hrs Furosemide (LASIX) 20 MG DAILY PO Amoxicillin/Clavulanate Potassium (AUGMENTIN 875) 875 MG Q12HR PO (CKD) Ciprofloxacin HCl (CIPRO) 500 MG Q12HR PO Insulin Glargine (Semglee) 23 UNIT BEDTIME SUBQ Oxycodone HCl (ROXICODONE) 5 MG Q6H PRN PRN PO Furosemide (LASIX 40 mg/4 mL INJECTION) 40 MG DAILY IV (DC) Insulin Glargine (Semglee) 20 UNIT BEDTIME SUBQ (DC) Insulin Human Lispro (HUMALOG) 7 UNIT AC SUBQ Ipratropium [place] (ATROVENT) 500 MCG RTQ2H PRN PRN INH Cyanocobalamin (Vitamin B-12 500 mcg tab) 500 MCG DAILY PO Ferrous Sulfate (FERROUS SULFATE) 325 MG DAILY PO Mupirocin (BACTROBAN 2% 22 GM OINTMENT) 1 APPLIC BID NASAL (DC) Doxycycline Monohydrate (DOXYCYCLINE MONOHYDRATE) 100 MG Q12HR PO Insulin Human Lispro (HUMALOG) 0 AC HS SUBQ Bisacodyl (DULCOLAX) 10 MG ONCE PRN RECTAL Magnesium Hydroxide (MILK OF MAGNESIA) 30 ML ONCE PRN PO Atorvastatin Calcium (LIPITOR) 40 MG 2100 PO Dextrose/Water (DEXTROSE 10% IN WATER) 250 ML ASDIR PRN IV (CKD) Insulin Human Regular (HumuLIN R) 100 UNIT ASDIR IV (CKD) Sodium Chloride (SODIUM CHLORIDE 0.9%) 99 ML Benzonatate (TESSALON PERLE) 200 MG Q8H PRN PRN PO Clopidogrel Bisulfate (Plavix) 75 MG DAILY PO Polyethylene Glycol (MIRALAX) 17 GM DAILY PO Docusate Sodium (COLACE) 100 MG BID PO Metoprolol Tartrate (LOPRESSOR) 12.5 MG Q12HR PO Sennosides (Senna Lax 8.6 MG TABLET) 17.2 MG BEDTIME PO Aspirin (ASPIRIN) 81 MG DAILY PO Pantoprazole (PROTONIX) 40 MG DAILY@0600 PO Acetaminophen (TYLENOL) 650 MG Q4H PRN PRN PO Acetaminophen (TYLENOL) 650 MG Q4H PRN PRN RECTAL Calcium Chloride (CALCIUM CHLORIDE) 1 GM ASDIR PRN IV Dextrose/Water (DEXTROSE 10% IN WATER) 125 ML ASDIR PRN IV (CKD) Dextrose/Water (DEXTROSE 10% IN WATER) 250 ML ASDIR PRN IV (CKD) Epinephrine (ADRENALIN CHLORIDE) 4 MG ASDIR IV Dextrose/Water (DEXTROSE 5% WATER) 246 ML Glucagon (GLUCAGON) 1 MG ASDIR PRN IM Magnesium Sulfate (MAGNESIUM SULFATE 4GM/SWFI 100ML) 100 ML ASDIR PRN IV Magnesium Sulfate (MAGNESIUM SULFATE 2GM/SWFI 50ML) 50 ML ASDIR PRN IV Magnesium Sulfate/Dextrose (MAGNESIUM SULFATE 1GM/D5W 100ML) 100 ML ASDIR PRN IV Nitroglycerin/Dextrose (NITROGLYCERIN 50,000MCG/D5W 250ML) 250 ML ASDIR IV Norepinephrine Bitartrate (NOREPINEPHRINE 8 MG/NS 250 ML) 250 ML TITRATE IV Ondansetron HCl (ZOFRAN) 4 MG Q6H PRN PRN IV Potassium Chloride (KCL 20MEQ/SWFI 100ML) 100 ML ASDIR PRN IV Sodium Bicarbonate (SODIUM BICARBONATE) 50 MEQ ASDIR PRN IV Silver Sulfadiazine (SILVADENE 1% 50 GM CREAM) 1 APPLIC Q12HR TOPICAL Gabapentin (NEURONTIN) 200 MG TID PO Physical Exam General appearance: alert, awake Diagnosis, Assessment Plan Hospital course to date: Laboratory Tests: 05/05 05/05 05/05 05/04 05/04 1114 0659 0346 2016 172 Chemistry Sodium (134 - 147 mEq/L) 138 Potassium (3.4 - 5.0 mEq/L) 3.6 Chloride (100 - 108 mEq/L) 102 Carbon Dioxide (21 - 33 mEq/l) 27 Anion Gap (0 - 20) 13 BUN (7 - 25 mg/dL) 14 Creatinine (0.6 - 1.3 mg/dL) 1.0 Glomerular Filtr Rate (90 - 95) 87.8 L Glucose (77 - 141 mg/dL) 157 H POC Glucose (70 - 110 MG/DL) 246 H 177 H 246 H 242 H Calcium (8.0 - 10.5 mg/dL) 8.9 Magnesium (1.6 - 2.6 mg/dL) 1.39 L Hematology WBC (4.5 - 11.0 x10 3/uL) 10.3 RBC (4.00 - 5.60 x10 6/uL) 3.23 L Hgb (12.5 - 16.9 g/dL) 9.8 L Hct (37.5 - 50.7 %) 29.6 L MCV (81.0 - 99.0 fL) 91.6 MCH (27.0 - 33.0 pg) 30.3 MCHC (33.0 - 37.0 g/dL) 33.1 RDW (11.5 - 14.5 %) 13.2 Plt Count (150 - 400 x10 3/uL) 302 MPV (7.0 - 9.0 fL) 10.2 H Neut % (Auto) (56.0 - 77.0 %) 70.6 Lymph % (Auto) (14.0 - 32.0 %) 18.9 [place] % (Auto) (4.8 - 9.0 %) 6.8 Eos % (Auto) (0.3 - 3.7 %) 2.8 Baso % (Auto) (0.0 - 2.0 %) 0.4 Neut # (Auto) (2.0 - 7.6 x10 3/uL) 7.26 Lymph # (Auto) (1.0 - 3.8 x10 3/uL) 1.94 [place] # (Auto) (0.1 - 0.8 x10 3/uL) 0.70 Eos # (Auto) (0.0 - 0.2 x10 3/uL) 0.29 H Baso # (Auto) (0.0 - 0.2 x10 3/uL) 0.04 Abs Immat Gran (auto) (0.00 - 0.03 0.05 H x10 3/uL) Immature Gran % (0.0 - 2.0 %) 0.5 Nucleated RBC % (0 - 0 %) 0.0 Nucleated RBCs # (Man) (0.0 - 0.1 0.00 x10 3/uL) Laboratory Tests: 05/04 05/04 05/04 05/03 1157 0759 5263 5167 Chemistry Sodium (134 - 147 mEq/L) 137 Potassium (3.4 - 5.0 mEq/L) 3.6 Chloride (100 - 108 mEq/L) 102 Carbon Dioxide (21 - 33 mEq/l) 28 Anion Gap (0 - 20) 10 BUN (7 - 25 mg/dL) 21 Creatinine (0.6 - 1.3 mg/dL) 1.1 Glomerular Filtr Rate (90 - 95) 78.3 L Glucose (77 - 141 mg/dL) 306 H POC Glucose (70 - 110 MG/DL) 218 H 233 H 211 H Calcium (8.0 - 10.5 mg/dL) 8.5 Magnesium (1.6 - 2.6 mg/dL) 1.52 L Hematology WBC (4.5 - 11.0 x10 3/uL) 8.2 RBC (4.00 - 5.60 x10 6/uL) 3.05 L Hgb (12.5 - 16.9 g/dL) 9.1 L Hct (37.5 - 50.7 %) 28.3 L MCV (81.0 - 99.0 fL) 92.8 MCH (27.0 - 33.0 pg) 29.8 MCHC (33.0 - 37.0 g/dL) 32.2 L RDW (11.5 - 14.5 %) 13.2 Plt Count (150 - 400 x10 3/uL) 273 MPV (7.0 - 9.0 fL) 10.7 H Neut % (Auto) (56.0 - 77.0 %) 69.6 Lymph % (Auto) (14.0 - 32.0 %) 18.2 [place] % (Auto) (4.8 - 9.0 %) 8.4 Eos % (Auto) (0.3 - 3.7 %) 2.9 Baso % (Auto) (0.0 - 2.0 %) 0.5 Neut # (Auto) (2.0 - 7.6 x10 3/uL) 5.73 Lymph # (Auto) (1.0 - 3.8 x10 3/uL) 1.50 [place] # (Auto) (0.1 - 0.8 x10 3/uL) 0.69 Eos # (Auto) (0.0 - 0.2 x10 3/uL) 0.24 H Baso # (Auto) (0.0 - 0.2 x10 3/uL) 0.04 Abs Immat Gran (auto) (0.00 - 0.03 x10 3/uL) 0.03 Immature Gran % (0.0 - 2.0 %) 0.4 Nucleated RBC % (0 - 0 %) 0.0 Nucleated RBCs # (Man) (0.0 - 0.1 x10 3/uL) 0.00 Recent Impressions: RADIOLOGY - XR CHEST 1 V 05/04 7941 Report Impression - Status: SIGNED Entered: 05/04/2023 9946 IMPRESSION: Single AP view of the chest is provided. Support lines and tubes are unchanged. Perihilar alveolar opacities have diminished. There is no pneumothorax. No additional interval change. Impression By: [email or web address] - Oziel Bro M.D. Laboratory Tests: 05/03 05/03 05/02 05/02 1110 0224 1929 1647 Chemistry Sodium (134 - 147 mEq/L) 138 Potassium (3.4 - 5.0 mEq/L) 4.1 Chloride (100 - 108 mEq/L) 104 Carbon Dioxide (21 - 33 mEq/l) 28 Anion Gap (0 - 20) 10 BUN (7 - 25 mg/dL) 18 Creatinine (0.6 - 1.3 mg/dL) 1.0 Glomerular Filtr Rate (90 - 95) 87.8 L Glucose (77 - 141 mg/dL) 147 H POC Glucose (70 - 110 MG/DL) 181 H 160 H 109 Calcium (8.0 - 10.5 mg/dL) 8.7 Magnesium (1.6 - 2.6 mg/dL) 1.72 Hematology WBC (4.5 - 11.0 x10 3/uL) 7.8 RBC (4.00 - 5.60 x10 6/uL) 3.06 L Hgb (12.5 - 16.9 g/dL) 9.1 L Hct (37.5 - 50.7 %) 27.9 L MCV (81.0 - 99.0 fL) 91.2 MCH (27.0 - 33.0 pg) 29.7 MCHC (33.0 - 37.0 g/dL) 32.6 L RDW (11.5 - 14.5 %) 13.2 Plt Count (150 - 400 x10 3/uL) 256 MPV (7.0 - 9.0 fL) 10.2 H Neut % (Auto) (56.0 - 77.0 %) 68.5 Lymph % (Auto) (14.0 - 32.0 %) 20.3 [place] % (Auto) (4.8 - 9.0 %) 7.8 Eos % (Auto) (0.3 - 3.7 %) 2.4 Baso % (Auto) (0.0 - 2.0 %) 0.4 Neut # (Auto) (2.0 - 7.6 x10 3/uL) 5.37 Lymph # (Auto) (1.0 - 3.8 x10 3/uL) 1.59 [place] # (Auto) (0.1 - 0.8 x10 3/uL) 0.61 Eos # (Auto) (0.0 - 0.2 x10 3/uL) 0.19 Baso # (Auto) (0.0 - 0.2 x10 3/uL) 0.03 Abs Immat Gran (auto) (0.00 - 0.03 x10 3/uL) 0.05 H Immature Gran % (0.0 - 2.0 %) 0.6 Nucleated RBC % (0 - 0 %) 0.0 Nucleated RBCs # (Man) (0.0 - 0.1 x10 3/uL) 0.00 Recent Impressions: RADIOLOGY - XR CHEST 1 V 05/03 0646 Report Impression - Status: SIGNED Entered: 05/03/2023 0824 IMPRESSION: No significant change compared to prior study. Postcardiac surgical changes and unchanged pulmonary vascular congestion. Mild atelectasis of the lung bases, left greater than right. Impression By: DR.[email or web address] Janiya Butler D.O Laboratory Tests: 05/02 05/02 05/02 05/02 1140 0736 0205 0205 Chemistry Sodium (134 - 147 mEq/L) 133 L Potassium (3.4 - 5.0 mEq/L) 4.0 Chloride (100 - 108 mEq/L) 105 Carbon Dioxide (21 - 33 mEq/l) 26 Anion Gap (0 - 20) 6 BUN (7 - 25 mg/dL) 19 Creatinine (0.6 - 1.3 mg/dL) 0.9 Glomerular Filtr Rate (90 - 95) 99.6 H Glucose (77 - 141 mg/dL) 159 H POC Glucose (70 - 110 MG/DL) 151 H 154 H Calcium (8.0 - 10.5 mg/dL) 8.7 Magnesium (1.6 - 2.6 mg/dL) 1.84 C-Reactive Protein (<10.0 mg/L) 77.0 H Hematology WBC (4.5 - 11.0 x10 3/uL) 9.1 RBC (4.00 - 5.60 x10 6/uL) 3.33 L Hgb (12.5 - 16.9 g/dL) 9.8 L Hct (37.5 - 50.7 %) 30.2 L MCV (81.0 - 99.0 fL) 90.7 MCH (27.0 - 33.0 pg) 29.4 MCHC (33.0 - 37.0 g/dL) 32.5 L RDW (11.5 - 14.5 %) 13.2 Plt Count (150 - 400 x10 3/uL) 292 MPV (7.0 - 9.0 fL) 10.3 H Neut % (Auto) (56.0 - 77.0 %) 71.0 Lymph % (Auto) (14.0 - 32.0 %) 17.5 [place] % (Auto) (4.8 - 9.0 %) 7.4 Eos % (Auto) (0.3 - 3.7 %) 2.8 Baso % (Auto) (0.0 - 2.0 %) 0.6 Neut # (Auto) (2.0 - 7.6 x10 3/uL) 6.44 Lymph # (Auto) (1.0 - 3.8 x10 3/uL) 1.59 [place] # (Auto) (0.1 - 0.8 x10 3/uL) 0.67 Eos # (Auto) (0.0 - 0.2 x10 3/uL) 0.25 H Baso # (Auto) (0.0 - 0.2 x10 3/uL) 0.05 Abs Immat Gran (auto) (0.00 - 0.03 x10 3/uL) 0.06 H Immature Gran % (0.0 - 2.0 %) 0.7 Nucleated RBC % (0 - 0 %) 0.0 Nucleated RBCs # (Man) (0.0 - 0.1 x10 3/uL) 0.00 ESR Westergren (0 - 15 mm/hr) 106 H 05/01 05/01 05/01 1929 1520 1518 Chemistry Sodium (134 - 147 mEq/L) 136 Potassium (3.4 - 5.0 mEq/L) 4.0 Chloride (100 - 108 mEq/L) 104 Carbon Dioxide (21 - 33 mEq/l) 26 Anion Gap (0 - 20) 11 BUN (7 - 25 mg/dL) 19 Creatinine (0.6 - 1.3 mg/dL) 1.0 Glomerular Filtr Rate (90 - 95) 87.8 L Glucose (77 - 141 mg/dL) 149 H POC Glucose (70 - 110 MG/DL) 163 H 131 H Calcium (8.0 - 10.5 mg/dL) 8.5 Phosphorus (2.5 - 4.9 MG/DL) 3.0 Magnesium (1.6 - 2.6 mg/dL) 1.63 Recent Impressions: RADIOLOGY - XR CHEST 1 V 05/02 0500 Report Impression - Status: SIGNED Entered: 05/02/2023 0828 IMPRESSION: No significant change from the prior Impression By: [email or web address] - Anu Amador M.D. ULTRASOUND - DUP VEIN ANALI 05/02 1132 Report Impression - Status: SIGNED Entered: 05/02/2023 1155 IMPRESSION: 1. No evidence of deep venous thrombosis within the visualized venous structures of bilateral lower extremities. Impression By: [email or web address] - Ramon Smiley M.D. Laboratory Tests: 05/01 05/01 05/01 04/30 04/30 1054 0830 0203 1902 1857 Chemistry Sodium (134 - 147 mEq/L) 134 134 Potassium (3.4 - 5.0 mEq/L) 4.1 3.6 Chloride (100 - 108 mEq/L) 105 109 H Carbon Dioxide (21 - 33 mEq/l) 24 21 Anion Gap (0 - 20) 9 8 BUN (7 - 25 mg/dL) 18 20 Creatinine (0.6 - 1.3 mg/dL) 0.9 1.0 Glomerular Filtr Rate (90 - 95) 99.6 H 87.8 L Glucose (77 - 141 mg/dL) 182 H 157 H POC Glucose (70 - 110 MG/DL) 221 H 170 H 157 H Calcium (8.0 - 10.5 mg/dL) 8.8 9.0 Ionized Calcium [place] (1.09 - 1.30 MMOL/L) 1.09 Magnesium (1.6 - 2.6 mg/dL) 2.03 1.80 Hematology WBC (4.5 - 11.0 x10 3/uL) 9.4 RBC (4.00 - 5.60 x10 6/uL) 3.18 L Hgb (12.5 - 16.9 g/dL) 9.4 L Hct (37.5 - 50.7 %) 29.1 L MCV (81.0 - 99.0 fL) 91.5 MCH (27.0 - 33.0 pg) 29.6 MCHC (33.0 - 37.0 g/dL) 32.3 L RDW (11.5 - 14.5 %) 13.1 Plt Count (150 - 400 x10 3/uL) 239 MPV (7.0 - 9.0 fL) 10.7 H Neut % (Auto) (56.0 - 77.0 %) 73.4 Lymph % (Auto) (14.0 - 32.0 %) 14.7 [place] % (Auto) (4.8 - 9.0 %) 8.3 Eos % (Auto) (0.3 - 3.7 %) 2.5 Baso % (Auto) (0.0 - 2.0 %) 0.5 Neut # (Auto) (2.0 - 7.6 x10 3/uL) 6.86 Lymph # (Auto) (1.0 - 3.8 x10 3/uL) 1.38 [place] # (Auto) (0.1 - 0.8 x10 3/uL) 0.78 Eos # (Auto) (0.0 - 0.2 x10 3/uL) 0.23 H Baso # (Auto) (0.0 - 0.2 x10 3/uL) 0.05 Abs Immat Gran (auto) (0.00 - 0.03 0.06 H x10 3/uL) Immature Gran % (0.0 - 2.0 %) 0.6 Nucleated RBC % (0 - 0 %) 0.0 Nucleated RBCs # (Man) (0.0 - 0.1 0.00 x10 3/uL) 04/30 1632 Chemistry POC Glucose (70 - 110 MG/DL) 188 H Recent Impressions: RADIOLOGY - XR CHEST 1 V 05/01 0721 Report Impression - Status: SIGNED Entered: 05/01/2023 0835 IMPRESSION: 1. Expected post-CABG changes with mild central vascular congestion. Impression By: Christine Do M.D. Laboratory Tests: 04/30 04/30 04/30 04/29 0809 0221 0221 1932 Chemistry Sodium (134 - 147 mEq/L) 132 L Potassium (3.4 - 5.0 mEq/L) 4.2 Chloride (100 - 108 mEq/L) 105 Carbon Dioxide (21 - 33 mEq/l) 20 L Anion Gap (0 - 20) 11 BUN (7 - 25 mg/dL) 16 Creatinine (0.6 - 1.3 mg/dL) 0.9 Glomerular Filtr Rate (90 - 95) 99.6 H Glucose (77 - 141 mg/dL) 205 H POC Glucose (70 - 110 MG/DL) 181 H 267 H Calcium (8.0 - 10.5 mg/dL) 8.8 Ionized Calcium [place] (1.09 - 1.30 MMOL/L) 1.05 L Magnesium (1.6 - 2.6 mg/dL) 1.87 Total Bilirubin (0.0 - 1.0 mg/dL) 0.40 Direct Bilirubin (0.1 - 0.3 MG/DL) 0.20 Indirect Bilirubin (MG/DL) 0.20 AST (8 - 34 IUnit/L) 23 ALT (10 - 49 IUnit/L) 19 Total Alk Phosphatase (20 - 125 IUnit/L) 62 Total Protein (6.4 - 8.2 g/dL) 6.5 Albumin (3.4 - 5.0 g/dL) 3.20 L Hematology WBC (4.5 - 11.0 x10 3/uL) 13.1 H RBC (4.00 - 5.60 x10 6/uL) 3.41 L Hgb (12.5 - 16.9 g/dL) 10.0 L Hct (37.5 - 50.7 %) 31.1 L MCV (81.0 - 99.0 fL) 91.2 MCH (27.0 - 33.0 pg) 29.3 MCHC (33.0 - 37.0 g/dL) 32.2 L RDW (11.5 - 14.5 %) 13.1 Plt Count (150 - 400 x10 3/uL) 249 MPV (7.0 - 9.0 fL) 10.8 H Neut % (Auto) (56.0 - 77.0 %) 78.3 H Lymph % (Auto) (14.0 - 32.0 %) 11.3 L [place] % (Auto) (4.8 - 9.0 %) 8.3 Eos % (Auto) (0.3 - 3.7 %) 1.3 Baso % (Auto) (0.0 - 2.0 %) 0.2 Neut # (Auto) (2.0 - 7.6 x10 3/uL) 10.28 H Lymph # (Auto) (1.0 - 3.8 x10 3/uL) 1.49 [place] # (Auto) (0.1 - 0.8 x10 3/uL) 1.09 H Eos # (Auto) (0.0 - 0.2 x10 3/uL) 0.17 Baso # (Auto) (0.0 - 0.2 x10 3/uL) 0.03 Abs Immat Gran (auto) (0.00 - 0.03 0.08 H x10 3/uL) Immature Gran % (0.0 - 2.0 %) 0.6 Nucleated RBC % (0 - 0 %) 0.0 Nucleated RBCs # (Man) (0.0 - 0.1 x10 3/uL) 0.00 04/29 04/29 1706 1413 Chemistry Sodium (134 - 147 mEq/L) 137 Potassium (3.4 - 5.0 mEq/L) 3.8 Chloride (100 - 108 mEq/L) 106 Carbon Dioxide (21 - 33 mEq/l) 21 Anion Gap (0 - 20) 14 BUN (7 - 25 mg/dL) 24 Creatinine (0.6 - 1.3 mg/dL) 1.0 Glomerular Filtr Rate (90 - 95) 87.8 L Glucose (77 - 141 mg/dL) 246 H POC Glucose (70 - 110 MG/DL) 216 H Calcium (8.0 - 10.5 mg/dL) 8.5 Phosphorus (2.5 - 4.9 MG/DL) 1.9 L Magnesium (1.6 - 2.6 mg/dL) 1.84 Recent Impressions: RADIOLOGY - XR CHEST 1 V 04/30 0746 Report Impression - Status: SIGNED Entered: 04/30/2023 0817 IMPRESSION: 1. Expected post-CABG changes with interval removal of the mediastinal drains. No pneumothorax. Impression By: Christine Do M.D. Laboratory Tests: 04/29 04/29 04/29 04/29 04/29 1706 1413 1207 1007 0802 Chemistry Sodium (134 - 147 mEq/L) 137 Potassium (3.4 - 5.0 mEq/L) 3.8 Chloride (100 - 108 mEq/L) 106 Carbon Dioxide (21 - 33 mEq/l) 21 Anion Gap (0 - 20) 14 BUN (7 - 25 mg/dL) 24 Creatinine (0.6 - 1.3 mg/dL) 1.0 Glomerular Filtr Rate (90 - 95) 87.8 L Glucose (77 - 141 mg/dL) 246 H POC Glucose (70 - 110 MG/DL) 216 H 171 H 186 H 184 H Calcium (8.0 - 10.5 mg/dL) 8.5 Phosphorus (2.5 - 4.9 MG/DL) 1.9 L Magnesium (1.6 - 2.6 mg/dL) 1.84 04/29 04/29 04/29 04/28 0624 0228 0026 2131 Chemistry Sodium (134 - 147 mEq/L) 135 Potassium (3.4 - 5.0 mEq/L) 4.2 Chloride (100 - 108 mEq/L) 108 Carbon Dioxide (21 - 33 mEq/l) 21 Anion Gap (0 - 20) 11 BUN (7 - 25 mg/dL) 24 Creatinine (0.6 - 1.3 mg/dL) 1.1 Glomerular Filtr Rate (90 - 95) 78.3 L Glucose (77 - 141 mg/dL) 241 H POC Glucose (70 - 110 MG/DL) 199 H 217 H 253 H Calcium (8.0 - 10.5 mg/dL) 8.9 Magnesium (1.6 - 2.6 mg/dL) 2.23 Total Bilirubin (0.0 - 1.0 mg/dL) 0.50 Direct Bilirubin (0.1 - 0.3 MG/DL) 0.30 Indirect Bilirubin (MG/DL) 0.20 AST (8 - 34 IUnit/L) 25 ALT (10 - 49 IUnit/L) 22 Total Alk Phosphatase (20 - 125 IUnit/L) 63 Total Protein (6.4 - 8.2 g/dL) 6.6 Albumin (3.4 - 5.0 g/dL) 3.50 Hematology WBC (4.5 - 11.0 x10 3/uL) 14.5 H RBC (4.00 - 5.60 x10 6/uL) 3.33 L Hgb (12.5 - 16.9 g/dL) 10.2 L Hct (37.5 - 50.7 %) 30.5 L MCV (81.0 - 99.0 fL) 91.6 MCH (27.0 - 33.0 pg) 30.6 MCHC (33.0 - 37.0 g/dL) 33.4 RDW (11.5 - 14.5 %) 13.1 Plt Count (150 - 400 x10 3/uL) 254 MPV (7.0 - 9.0 fL) 10.5 H Neut % (Auto) (56.0 - 77.0 %) 84.5 H Lymph % (Auto) (14.0 - 32.0 %) 6.5 L [place] % (Auto) (4.8 - 9.0 %) 8.1 Eos % (Auto) (0.3 - 3.7 %) 0.1 L Baso % (Auto) (0.0 - 2.0 %) 0.1 Neut # (Auto) (2.0 - 7.6 x10 3/uL) 12.28 H Lymph # (Auto) (1.0 - 3.8 x10 3/uL) 0.94 L [place] # (Auto) (0.1 - 0.8 x10 3/uL) 1.17 H Eos # (Auto) (0.0 - 0.2 x10 3/uL) 0.01 Baso # (Auto) (0.0 - 0.2 x10 3/uL) 0.01 Abs Immat Gran (auto) (0.00 - 0.03 x10 3/uL) 0.10 H Immature Gran % (0.0 - 2.0 %) 0.7 Nucleated RBC % (0 - 0 %) 0.0 Nucleated RBCs # (Man) (0.0 - 0.1 x10 3/uL) 0.00 Recent Impressions: RADIOLOGY - XR CHEST 1 V 04/29 654 Report Impression - Status: SIGNED Entered: 04/29/2023 0814 IMPRESSION: Signs of trace vascular congestion and central pulmonary edema. Suspect trace bilateral pleural effusions. Stable lines and tubes. Impression By: [email or web address] - Adilson Ordaz D.O. Laboratory Tests: 04/28 04/28 04/28 04/28 04/28 1449 1346 1054 0908 0626 Chemistry Sodium (134 - 147 mEq/L) 135 Potassium (3.4 - 5.0 mEq/L) 4.5 Chloride (100 - 108 mEq/L) 110 H Carbon Dioxide (21 - 33 mEq/l) 19 L Anion Gap (0 - 20) 10 BUN (7 - 25 mg/dL) 26 H Creatinine (0.6 - 1.3 mg/dL) 1.2 Glomerular Filtr Rate (90 - 95) 70.5 L Glucose (77 - 141 mg/dL) 186 H POC Glucose (70 - 110 MG/DL) 144 H 149 H 135 H 140 H Calcium (8.0 - 10.5 mg/dL) 8.7 Ionized Calcium [place] (1.09 - 1.30 MMOL/L) 1.13 Magnesium (1.6 - 2.6 mg/dL) 2.19 04/28 04/28 04/28 04/27 0211 0201 0104 2233 Blood Gas Puncture Site Art Line Art Line O2 Saturation (90 - 100 %) 94.0 97.3 ABG pH (7.35 - 7.45) 7.365 7.359 ABG pCO2 (35.0 - 45 mmHg) 34.0 L 34.7 L ABG pO2 (80 - 100.0 mmHg) 73.3 L 96.9 ABG HCO3 (22.0 - 26.0 MMOL/L) 19.4 L 19.6 L ABG Total CO2 20.5 20.7 ABG Base Excess (-4.0 - 4.0 MMOL/L) -5.9 L -5.8 L ABG Hematocrit (37.5 - 50.7 %) 32 L 32 L ABG Hemoglobin (12.5 - 16.9 G/DL) 10.9 L 10.9 L Sodium (134 - 147 mmol/L) 140 140 Potassium (3.4 - 5.0 mmol/L) 4.7 4.8 Chloride (100 - 108 mmol/L) 110 H 110 H Ionized Calcium (1.12 - 1.32 MMOL/L) 1.24 1.20 Lactic Acid (0.9 - 1.7 mmol/l) 0.5 L 0.9 Temperature (F) 99 98.6 O2 Delivery Device Cannula Cannula Chemistry Sodium (134 - 147 mEq/L) 139 Potassium (3.4 - 5.0 mEq/L) 4.6 Chloride (100 - 108 mEq/L) 111 H Carbon Dioxide (21 - 33 mEq/l) 21 Anion Gap (0 - 20) 12 BUN (7 - 25 mg/dL) 25 Creatinine (0.6 - 1.3 mg/dL) 0.9 POC Creatinine (0.8 - 1.3 mg/dL) 0.8 1.0 Glomerular Filtr Rate (90 - 95) 99.6 H Glucose (77 - 141 mg/dL) 142 H POC Glucose (70 - 110 MG/DL) 121 H POC Glucose (mg/dL) (70 - 110 MG/DL) 138 H 150 H Calcium (8.0 - 10.5 mg/dL) 8.5 Magnesium (1.6 - 2.6 mg/dL) 1.84 Total Bilirubin (0.0 - 1.0 mg/dL) 0.40 Direct Bilirubin (0.1 - 0.3 MG/DL) 0.20 Indirect Bilirubin (MG/DL) 0.20 AST (8 - 34 IUnit/L) 42 H ALT (10 - 49 IUnit/L) 25 Total Alk Phosphatase (20 - 125 IUnit/L) 58 Total Protein (6.4 - 8.2 g/dL) 6.0 L Albumin (3.4 - 5.0 g/dL) 3.20 L Hematology WBC (4.5 - 11.0 x10 3/uL) 13.8 H RBC (4.00 - 5.60 x10 6/uL) 3.44 L Hgb (12.5 - 16.9 g/dL) 10.2 L Hct (37.5 - 50.7 %) 31.1 L MCV (81.0 - 99.0 fL) 90.4 MCH (27.0 - 33.0 pg) 29.7 MCHC (33.0 - 37.0 g/dL) 32.8 L RDW (11.5 - 14.5 %) 12.7 Plt Count (150 - 400 x10 3/uL) 260 MPV (7.0 - 9.0 fL) 10.0 H Neut % (Auto) (56.0 - 77.0 %) 88.7 H Lymph % (Auto) (14.0 - 32.0 %) 4.0 L [place] % (Auto) (4.8 - 9.0 %) 6.7 Eos % (Auto) (0.3 - 3.7 %) 0.0 L Baso % (Auto) (0.0 - 2.0 %) 0.1 Neut # (Auto) (2.0 - 7.6 x10 3/uL) 12.23 H Lymph # (Auto) (1.0 - 3.8 x10 3/uL) 0.55 L [place] # (Auto) (0.1 - 0.8 x10 3/uL) 0.92 H Eos # (Auto) (0.0 - 0.2 x10 3/uL) 0.00 Baso # (Auto) (0.0 - 0.2 x10 3/uL) 0.01 Abs Immat Gran (auto) (0.00 - 0.03 0.07 H x10 3/uL) Immature Gran % (0.0 - 2.0 %) 0.5 Nucleated RBC % (0 - 0 %) 0.0 Nucleated RBCs # (Man) (0.0 - 0.1 0.00 x10 3/uL) 04/27 Chemistry POC Glucose (70 - 110 MG/DL) 145 H 157 H Recent Impressions: RADIOLOGY - XR CHEST 1 V 04/28 518 Report Impression - Status: SIGNED Entered: 04/28/2023829 IMPRESSION: Lines and tubes, as detailed above. Pulmonary edema and small left pleural effusion again noted. Enlarged cardiomediastinal silhouette. Impression By: DR.SHEAL Janiya Jiménez M.D. RADIOLOGY - XR CHEST 1 V 04/28 1716 Report Impression - Status: SIGNED Entered: 04/28/2023 8824 IMPRESSION: Improved mild bilateral interstitial infiltrates. Trace effusions. Impression By: Zane - Mimi Powers M.D. Laboratory Tests: 04/27 04/27 04/27 04/27 04/27 1424 1422 1348 1347 1235 Blood Gas O2 Saturation (90 - 100 %) 100.0 99.7 ABG pH (7.35 - 7.45) 7.380 7.257 *L ABG pCO2 (35.0 - 45 mmHg) 41.5 45.1 H ABG pO2 (80 - 100.0 mmHg) 381.1 *H 238.6 *H ABG HCO3 (22.0 - 26.0 MMOL/L) 24.6 20.1 L ABG Total CO2 25.8 21.5 ABG Base Excess (-4.0 - 4.0 -0.6 -6.8 L MMOL/L) ABG Hematocrit (37.5 - 50.7 %) 29 L 33 L ABG Hemoglobin (12.5 - 16.9 G/DL) 9.7 L 11.3 L Sodium (134 - 147 mmol/L) 140 139 Potassium (3.4 - 5.0 mmol/L) 5.6 H 4.1 Chloride (100 - 108 mmol/L) 108 108 Ionized Calcium (1.12 - 1.32 1.11 L 1.14 MMOL/L) Lactic Acid (0.9 - 1.7 mmol/l) < 0.3 L 0.3 L Chemistry POC Creatinine (0.8 - 1.3 mg/dL) 0.7 L 0.5 L POC Glucose (mg/dL) (70 - 110 155 H 165 H MG/DL) Coagulation Activated Coag Time (74 - 137 SEC) > 1000 H 677 H 152 H 04/27 04/27 04/27 04/27 1233 0891 0651 0322 Blood Gas O2 Saturation (90 - 100 %) 99.8 ABG pH (7.35 - 7.45) 7.331 L ABG pCO2 (35.0 - 45 mmHg) 32.2 L ABG pO2 (80 - 100.0 mmHg) 252.0 *H ABG HCO3 (22.0 - 26.0 MMOL/L) 17.0 *L ABG Total CO2 18.0 ABG Base Excess (-4.0 - 4.0 MMOL/L) -8.0 L ABG Hematocrit (37.5 - 50.7 %) 32 L ABG Hemoglobin (12.5 - 16.9 G/DL) 11.0 L Sodium (134 - 147 mmol/L) 143 Potassium (3.4 - 5.0 mmol/L) 3.5 Chloride (100 - 108 mmol/L) 113 H Ionized Calcium (1.12 - 1.32 MMOL/L) 1.09 L Lactic Acid (0.9 - 1.7 mmol/l) < 0.3 L Chemistry Sodium (134 - 147 mEq/L) 135 Potassium (3.4 - 5.0 mEq/L) 4.5 Chloride (100 - 108 mEq/L) 108 Carbon Dioxide (21 - 33 mEq/l) 23 Anion Gap (0 - 20) 8 BUN (7 - 25 mg/dL) 22 Creatinine (0.6 - 1.3 mg/dL) 0.9 POC Creatinine (0.8 - 1.3 mg/dL) 0.5 L Glomerular Filtr Rate (90 - 95) 99.6 H Glucose (77 - 141 mg/dL) 131 POC Glucose (70 - 110 MG/DL) 150 H POC Glucose (mg/dL) (70 - 110 MG/DL) 139 H Calcium (8.0 - 10.5 mg/dL) 9.2 Magnesium (1.6 - 2.6 mg/dL) 1.66 Coagulation INR (0.8 - 1.2) 1.5 H PTT ([place]) (25.0 - 39.5 Seconds) 32.7 PT Patient/Control Mix (9.3 - 12.9 SECONDS) 16.4 H Hematology WBC (4.5 - 11.0 x10 3/uL) 7.1 RBC (4.00 - 5.60 x10 6/uL) 4.00 Hgb (12.5 - 16.9 g/dL) 12.0 L Hct (37.5 - 50.7 %) 36.3 L MCV (81.0 - 99.0 fL) 90.8 MCH (27.0 - 33.0 pg) 30.0 MCHC (33.0 - 37.0 g/dL) 33.1 RDW (11.5 - 14.5 %) 12.3 Plt Count (150 - 400 x10 3/uL) 277 MPV (7.0 - 9.0 fL) 10.1 H Neut % (Auto) (56.0 - 77.0 %) 60.0 Lymph % (Auto) (14.0 - 32.0 %) 29.4 [place] % (Auto) (4.8 - 9.0 %) 7.5 Eos % (Auto) (0.3 - 3.7 %) 1.8 Baso % (Auto) (0.0 - 2.0 %) 0.7 Neut # (Auto) (2.0 - 7.6 x10 3/uL) 4.27 Lymph # (Auto) (1.0 - 3.8 x10 3/uL) 2.09 [place] # (Auto) (0.1 - 0.8 x10 3/uL) 0.53 Eos # (Auto) (0.0 - 0.2 x10 3/uL) 0.13 Baso # (Auto) (0.0 - 0.2 x10 3/uL) 0.05 Abs Immat Gran (auto) (0.00 - 0.03 0.04 H x10 3/uL) Immature Gran % (0.0 - 2.0 %) 0.6 Nucleated RBC % (0 - 0 %) 0.0 Nucleated RBCs # (Man) (0.0 - 0.1 x10 3/uL) 0.00 Serology SARS-CoV-2 Ag (Rapid) (Negative) Negative 04/26 1601 Chemistry POC Glucose (70 - 110 MG/DL) 175 H 164 H Microbiology: Date/Time Procedure - Status Source Growth 04/27 828 MSSA Surveillance Screen - RECD NASAL 04/27 828 MRSA DNA Surveillance Screen - RECD NASAL Laboratory Tests: 04/26 04/26 04/26 04/25 1123 0714 1250 2028 Chemistry Sodium (134 - 147 mEq/L) 137 Potassium (3.4 - 5.0 mEq/L) 4.6 Chloride (100 - 108 mEq/L) 107 Carbon Dioxide (21 - 33 mEq/l) 23 Anion Gap (0 - 20) 12 BUN (7 - 25 mg/dL) 28 H Creatinine (0.6 - 1.3 mg/dL) 1.0 Glomerular Filtr Rate (90 - 95) 87.8 L Glucose (77 - 141 mg/dL) 137 POC Glucose (70 - 110 MG/DL) 192 H 137 H 214 H Calcium (8.0 - 10.5 mg/dL) 9.2 Magnesium (1.6 - 2.6 mg/dL) 1.64 Hematology WBC (4.5 - 11.0 x10 3/uL) 7.5 RBC (4.00 - 5.60 x10 6/uL) 3.95 L Hgb (12.5 - 16.9 g/dL) 11.9 L Hct (37.5 - 50.7 %) 35.8 L MCV (81.0 - 99.0 fL) 90.6 MCH (27.0 - 33.0 pg) 30.1 MCHC (33.0 - 37.0 g/dL) 33.2 RDW (11.5 - 14.5 %) 12.4 Plt Count (150 - 400 x10 3/uL) 289 MPV (7.0 - 9.0 fL) 10.2 H Neut % (Auto) (56.0 - 77.0 %) 58.7 Lymph % (Auto) (14.0 - 32.0 %) 30.8 [place] % (Auto) (4.8 - 9.0 %) 7.8 Eos % (Auto) (0.3 - 3.7 %) 1.7 Baso % (Auto) (0.0 - 2.0 %) 0.5 Neut # (Auto) (2.0 - 7.6 x10 3/uL) 4.38 Lymph # (Auto) (1.0 - 3.8 x10 3/uL) 2.30 [place] # (Auto) (0.1 - 0.8 x10 3/uL) 0.58 Eos # (Auto) (0.0 - 0.2 x10 3/uL) 0.13 Baso # (Auto) (0.0 - 0.2 x10 3/uL) 0.04 Abs Immat Gran (auto) (0.00 - 0.03 x10 3/uL) 0.04 H Immature Gran % (0.0 - 2.0 %) 0.5 Nucleated RBC % (0 - 0 %) 0.0 Nucleated RBCs # (Man) (0.0 - 0.1 x10 3/uL) 0.00 Laboratory Tests: 04/25 04/25 04/25 04/24 1126 0720 0222 2002 Chemistry Sodium (134 - 147 mEq/L) 134 Potassium (3.4 - 5.0 mEq/L) 4.2 Chloride (100 - 108 mEq/L) 105 Carbon Dioxide (21 - 33 mEq/l) 23 Anion Gap (0 - 20) 11 BUN (7 - 25 mg/dL) 26 H Creatinine (0.6 - 1.3 mg/dL) 1.0 Glomerular Filtr Rate (90 - 95) 87.8 L Glucose (77 - 141 mg/dL) 168 H POC Glucose (70 - 110 MG/DL) 214 H 158 H 347 H Calcium (8.0 - 10.5 mg/dL) 9.2 Magnesium (1.6 - 2.6 mg/dL) 1.60 Hematology WBC (4.5 - 11.0 x10 3/uL) 11.9 H RBC (4.00 - 5.60 x10 6/uL) 3.89 L Hgb (12.5 - 16.9 g/dL) 11.6 L Hct (37.5 - 50.7 %) 34.7 L MCV (81.0 - 99.0 fL) 89.2 MCH (27.0 - 33.0 pg) 29.8 MCHC (33.0 - 37.0 g/dL) 33.4 RDW (11.5 - 14.5 %) 12.5 Plt Count (150 - 400 x10 3/uL) 316 MPV (7.0 - 9.0 fL) 10.5 H Neut % (Auto) (56.0 - 77.0 %) 80.7 H Lymph % (Auto) (14.0 - 32.0 %) 11.5 L [place] % (Auto) (4.8 - 9.0 %) 6.9 Eos % (Auto) (0.3 - 3.7 %) 0.2 L Baso % (Auto) (0.0 - 2.0 %) 0.2 Neut # (Auto) (2.0 - 7.6 x10 3/uL) 9.65 H Lymph # (Auto) (1.0 - 3.8 x10 3/uL) 1.37 [place] # (Auto) (0.1 - 0.8 x10 3/uL) 0.82 H Eos # (Auto) (0.0 - 0.2 x10 3/uL) 0.02 Baso # (Auto) (0.0 - 0.2 x10 3/uL) 0.02 Abs Immat Gran (auto) (0.00 - 0.03 x10 3/uL) 0.06 H Add Manual Diff NO Immature Gran % (0.0 - 2.0 %) 0.5 Nucleated RBC % (0 - 0 %) 0.0 Nucleated RBCs # (Man) (0.0 - 0.1 x10 3/uL) 0.00 Laboratory Tests: 04/24 04/24 04/24 04/24 04/24 1532 1108 1013 0645 0301 Chemistry Sodium (134 - 147 mEq/L) 135 Potassium (3.4 - 5.0 mEq/L) 4.3 Chloride (100 - 108 mEq/L) 106 Carbon Dioxide (21 - 33 mEq/l) 21 Anion Gap (0 - 20) 13 BUN (7 - 25 mg/dL) 18 Creatinine (0.6 - 1.3 mg/dL) 0.9 Glomerular Filtr Rate (90 - 95) 99.6 H Glucose (77 - 141 mg/dL) 113 POC Glucose (70 - 110 MG/DL) 310 H 176 H 149 H 141 H Calcium (8.0 - 10.5 mg/dL) 9.2 Magnesium (1.6 - 2.6 mg/dL) 1.68 Hematology WBC (4.5 - 11.0 x10 3/uL) 7.8 RBC (4.00 - 5.60 x10 6/uL) 3.93 L Hgb (12.5 - 16.9 g/dL) 11.7 L Hct (37.5 - 50.7 %) 35.6 L MCV (81.0 - 99.0 fL) 90.6 MCH (27.0 - 33.0 pg) 29.8 MCHC (33.0 - 37.0 g/dL) 32.9 L RDW (11.5 - 14.5 %) 12.3 Plt Count (150 - 400 x10 3/uL) 278 MPV (7.0 - 9.0 fL) 10.0 H Neut % (Auto) (56.0 - 77.0 %) 68.0 Lymph % (Auto) (14.0 - 32.0 %) 21.2 [place] % (Auto) (4.8 - 9.0 %) 7.9 Eos % (Auto) (0.3 - 3.7 %) 1.9 Baso % (Auto) (0.0 - 2.0 %) 0.4 Neut # (Auto) (2.0 - 7.6 x10 3/uL) 5.28 Lymph # (Auto) (1.0 - 3.8 x10 3/uL) 1.65 [place] # (Auto) (0.1 - 0.8 x10 3/uL) 0.61 Eos # (Auto) (0.0 - 0.2 x10 3/uL) 0.15 Baso # (Auto) (0.0 - 0.2 x10 3/uL) 0.03 Abs Immat Gran (auto) (0.00 - 0.03 0.05 H x10 3/uL) Immature Gran % (0.0 - 2.0 %) 0.6 Nucleated RBC % (0 - 0 %) 0.0 Nucleated RBCs # (Man) (0.0 - 0.1 0.00 x10 3/uL) 04/23 2019 Chemistry POC Glucose (70 - 110 MG/DL) 276 H Microbiology: Date/Time Procedure - Status Source Growth 04/24 1000 Tissue Culture - RES TISSUE 04/24 1000 Anaerobic Culture - RES TISSUE 04/24 1000 Gram Stain - RES TISSUE Laboratory Tests: 04/23 04/23 04/23 04/23 04/23 1550 1110 0703 0330 0330 Chemistry Sodium (134 - 147 mEq/L) 137 Potassium (3.4 - 5.0 mEq/L) 3.9 Chloride (100 - 108 mEq/L) 105 Carbon Dioxide (21 - 33 mEq/l) 22 Anion Gap (0 - 20) 14 BUN (7 - 25 mg/dL) 25 Creatinine (0.6 - 1.3 mg/dL) 1.1 Glomerular Filtr Rate (90 - 95) 78.3 L Glucose (77 - 141 mg/dL) 131 POC Glucose (70 - 110 MG/DL) 265 H 284 H 143 H Calcium (8.0 - 10.5 mg/dL) 9.4 Magnesium (1.6 - 2.6 mg/dL) 1.72 Hematology WBC (4.5 - 11.0 x10 3/uL) 10.1 RBC (4.00 - 5.60 x10 6/uL) 4.24 Hgb (12.5 - 16.9 g/dL) 12.7 Hct (37.5 - 50.7 %) 38.4 MCV (81.0 - 99.0 fL) 90.6 MCH (27.0 - 33.0 pg) 30.0 MCHC (33.0 - 37.0 g/dL) 33.1 RDW (11.5 - 14.5 %) 12.3 Plt Count (150 - 400 x10 3/uL) 332 MPV (7.0 - 9.0 fL) 10.3 H Neut % (Auto) (56.0 - 77.0 %) 71.8 Lymph % (Auto) (14.0 - 32.0 %) 18.0 [place] % (Auto) (4.8 - 9.0 %) 8.4 Eos % (Auto) (0.3 - 3.7 %) 0.8 Baso % (Auto) (0.0 - 2.0 %) 0.4 Neut # (Auto) (2.0 - 7.6 x10 3/uL) 7.28 Lymph # (Auto) (1.0 - 3.8 x10 3/uL) 1.82 [place] # (Auto) (0.1 - 0.8 x10 3/uL) 0.85 H Eos # (Auto) (0.0 - 0.2 x10 3/uL) 0.08 Baso # (Auto) (0.0 - 0.2 x10 3/uL) 0.04 Abs Immat Gran (auto) (0.00 - 0.03 0.06 H x10 3/uL) Immature Gran % (0.0 - 2.0 %) 0.6 Nucleated RBC % (0 - 0 %) 0.0 Nucleated RBCs # (Man) (0.0 - 0.1 0.00 x10 3/uL) 04/232 2121 Chemistry POC Glucose (70 - 110 MG/DL) 197 H Toxicology Vancomycin Trough (10.0 - 20.0 mcg/mL) 12.1 Recent Impressions: MAGNETIC RESONANCE IMAGING - MRI LOW EXT W/O CONT LT 04/23 1034 Report Impression - Status: SIGNED Entered: 04/23/2023 1207 IMPRESSION: 5th MTP effusion/possible septic arthritis with osteomyelitis changes as detailed. No drainable soft tissue abscess. Impression By: [email or web address] - Aaron Lemuel Goldberg M.D. Laboratory Tests: 04/22 1555 Chemistry Sodium (134 - 147 mEq/L) 139 Potassium (3.4 - 5.0 mEq/L) 4.3 Chloride (100 - 108 mEq/L) 108 Carbon Dioxide (21 - 33 mEq/l) 22 Anion Gap (0 - 20) 14 BUN (7 - 25 mg/dL) 17 Creatinine (0.6 - 1.3 mg/dL) 0.9 Glomerular Filtr Rate (90 - 95) 99.6 H Glucose (77 - 141 mg/dL) 124 POC Glucose (70 - 110 MG/DL) 232 H 133 H Calcium (8.0 - 10.5 mg/dL) 9.0 Hematology WBC (4.5 - 11.0 x10 3/uL) 8.6 RBC (4.00 - 5.60 x10 6/uL) 3.89 L Hgb (12.5 - 16.9 g/dL) 11.5 L Hct (37.5 - 50.7 %) 36.2 L MCV (81.0 - 99.0 fL) 93.1 MCH (27.0 - 33.0 pg) 29.6 MCHC (33.0 - 37.0 g/dL) 31.8 L RDW (11.5 - 14.5 %) 12.5 Plt Count (150 - 400 x10 3/uL) 301 MPV (7.0 - 9.0 fL) 10.1 H Neut % (Auto) (56.0 - 77.0 %) 66.1 Lymph % (Auto) (14.0 - 32.0 %) 23.5 [place] % (Auto) (4.8 - 9.0 %) 7.4 Eos % (Auto) (0.3 - 3.7 %) 2.0 Baso % (Auto) (0.0 - 2.0 %) 0.6 Neut # (Auto) (2.0 - 7.6 x10 3/uL) 5.66 Lymph # (Auto) (1.0 - 3.8 x10 3/uL) 2.01 [place] # (Auto) (0.1 - 0.8 x10 3/uL) 0.63 Eos # (Auto) (0.0 - 0.2 x10 3/uL) 0.17 Baso # (Auto) (0.0 - 0.2 x10 3/uL) 0.05 Abs Immat Gran (auto) (0.00 - 0.03 x10 3/uL) 0.03 Immature Gran % (0.0 - 2.0 %) 0.4 Nucleated RBC % (0 - 0 %) 0.0 Nucleated RBCs # (Man) (0.0 - 0.1 x10 3/uL) 0.00 Microbiology: Date/Time Procedure - Status Source Growth 04/21 153 Blood Culture - RECD BLOOD 04/21 153 Blood Culture Gram Stain - RECD BLOOD 04/21 153 Blood Culture - RECD BLOOD 04/21 153 Blood Culture Gram Stain - RECD BLOOD Recent Impressions: RADIOLOGY - XR FOOT 3 + V LT 04/21 1423 Report Impression - Status: SIGNED Entered: 04/21/2023 1438 IMPRESSION: Interval progression of osteomyelitis involving the fifth metatarsal head and fifth proximal phalanx base about the MTP joint since the prior study from 04/16/2023. Impression By: [email or web address] - Brett Elizabeth M.D. Laboratory Tests: 04/21 04/21 04/21 04/21 1128 0931 0534 0132 Chemistry Sodium (134 - 147 mEq/L) 137 Potassium (3.4 - 5.0 mEq/L) 4.0 Chloride (100 - 108 mEq/L) 105 Carbon Dioxide (21 - 33 mEq/l) 24 Anion Gap (0 - 20) 12 BUN (7 - 25 mg/dL) 18 Creatinine (0.6 - 1.3 mg/dL) 1.1 Glomerular Filtr Rate (90 - 95) 78.3 L Glucose (77 - 141 mg/dL) 181 H POC Glucose (70 - 110 MG/DL) 172 H Calcium (8.0 - 10.5 mg/dL) 9.3 Magnesium (1.6 - 2.6 mg/dL) 1.61 C-Reactive Protein (<10.0 mg/L) 25.0 H Hematology WBC (4.5 - 11.0 x10 3/uL) 7.0 RBC (4.00 - 5.60 x10 6/uL) 4.05 Hgb (12.5 - 16.9 g/dL) 12.0 L Hct (37.5 - 50.7 %) 36.5 L MCV (81.0 - 99.0 fL) 90.1 MCH (27.0 - 33.0 pg) 29.6 MCHC (33.0 - 37.0 g/dL) 32.9 L RDW (11.5 - 14.5 %) 12.0 Plt Count (150 - 400 x10 3/uL) 305 MPV (7.0 - 9.0 fL) 10.5 H Neut % (Auto) (56.0 - 77.0 %) 61.3 Lymph % (Auto) (14.0 - 32.0 %) 27.0 [place] % (Auto) (4.8 - 9.0 %) 8.9 Eos % (Auto) (0.3 - 3.7 %) 1.7 Baso % (Auto) (0.0 - 2.0 %) 0.7 Neut # (Auto) (2.0 - 7.6 x10 3/uL) 4.28 Lymph # (Auto) (1.0 - 3.8 x10 3/uL) 1.89 [place] # (Auto) (0.1 - 0.8 x10 3/uL) 0.62 Eos # (Auto) (0.0 - 0.2 x10 3/uL) 0.12 Baso # (Auto) (0.0 - 0.2 x10 3/uL) 0.05 Abs Immat Gran (auto) (0.00 - 0.03 x10 3/uL) 0.03 Immature Gran % (0.0 - 2.0 %) 0.4 Nucleated RBC % (0 - 0 %) 0.0 Nucleated RBCs # (Man) (0.0 - 0.1 x10 3/uL) 0.00 ESR Westergren (0 - 15 mm/hr) 87 H Urines Urine Color (YEL/STRAW) YELLOW Urine Appearance (CLEAR) CLEAR Urine pH (5.0 - 7.0) 5.0 Ur Specific [place] (1.005 - 1.030) 1.011 Urine Protein (NEGATIVE) NEGATIVE Urine Glucose (UA) (NEGATIVE) 3+ H Urine Ketones (NEGATIVE) NEGATIVE Urine Blood (NEGATIVE) NEGATIVE Urine Nitrite (NEGATIVE) NEGATIVE Urine Bilirubin (NEGATIVE) NEGATIVE Urine Urobilinogen (0.2 - 1.0 mg/dL) 0.2 Ur Leukocyte Esterase (NEGATIVE) NEGATIVE Urine RBC (0 - 3 RBC/HPF) 0-3 Urine WBC (0 - 3 WBC/HPF) 0-3 Ur Squamous Epith Cells (NONE SEEN /HPF) 0-5 Ur Transition Epith Cell (NONE SEEN /HPF) TRACE Urine Bacteria (NONE SEEN /HPF) TRACE Urine Mucus (NONE SEEN /LPF) TRACE 04/20 Chemistry POC Glucose (70 - 110 MG/DL) 325 H Coagulation INR (0.8 - 1.2) 1.3 H PTT ([place]) (25.0 - 39.5 Seconds) 39.3 PT Patient/Control Mix (9.3 - 12.9 SECONDS) 14.5 H Microbiology: Date/Time Procedure - Status Source Growth 04/21 153 Blood Culture - RECD BLOOD 04/21 153 Blood Culture Gram Stain - RECD BLOOD 04/21 1535 Blood Culture - RECD BLOOD 04/21 1535 Blood Culture Gram Stain - RECD BLOOD Recent Impressions: RADIOLOGY - XR FOOT 3 + V LT 04/21 1423 Report Impression - Status: SIGNED Entered: 04/21/2023 1438 IMPRESSION: Interval progression of osteomyelitis involving the fifth metatarsal head and fifth proximal phalanx base about the MTP joint since the prior study from 04/16/2023. Impression By: [email or web address] - Brett Elizabeth M.D. 1. 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 2. Coronary artery disease. 6 3. S/P CABG 4. Ex-smoker 5.Left foot wound 6.Hypertension. 7. Hyperlipidemia Blood sugar 177-246 mg/dL. HbA1c 8.3%. Lipids elevated.This Adjust insulin dose. Diabetes dietary education. at 1449 RPT #:[id number] END OF REPORT [facility] 2023-05-05 13:12:00 [facility] ([facility]) Cardiology Progress Note REPORT#:[id number] REPORT STATUS: Signed REPORT INITIALIZATION DATE:05/05/23 TIME: 1312 PATIENT: JONG RIVAS UNIT #: [id number] [place] [facility] [place] : 66 AGE: 58 SEX: M ATTEND: Domenic Rainey MD ADM AUTHOR: Noemí Nieto MD REPT SERVICE DT/TIME: 05/05/23 1312 * ALL edits or amendments must be made on the electronic/computer document * Objective General VS/I O: 24 hour I O ending at 0700: 05/05 0700 05/04 1900 Intake Total 800 Output Total 800 Balance 0 Intake, Oral 800 Output, Urine 800 Patient 108 kg Weight Weight Standing scale Measurement Method Vital Signs: Date Time Temp Pulse Resp B/P B/P Pulse O2 O2 Flow FiO2 Mean Ox Delivery Rate 05/05 1117 98.2 85 14 108/65 0.0 97 Room air 05/05 0831 99 Room air 05/05 0703 98.2 77 12 118/65 0.0 94 Room air 05/05 0316 98.2 76 20 123/66 0.0 94 Room air 05/04 2313 98.2 77 20 118/66 0.0 94 Room air 05/04 2000 100 Room air 05/04 1805 98.6 79 16 113/62 0.0 96 Room air 05/04 1729 98.1 80 14 112/66 0.0 99 PATIENT WEIGHT: Weight (lb): 238 Weight (oz): 1.59 Weight (kg): 108.000 Medications: Active Meds + DC'd Last 24 Hrs Amoxicillin/Clavulanate Potassium (AUGMENTIN 875) 875 MG Q12HR PO (CKD) Ciprofloxacin HCl (CIPRO) 500 MG Q12HR PO Insulin Glargine (Semglee) 23 UNIT BEDTIME SUBQ Oxycodone HCl (ROXICODONE) 5 MG Q6H PRN PRN PO Furosemide (LASIX 40 mg/4 mL INJECTION) 40 MG DAILY IV Insulin Glargine (Semglee) 20 UNIT BEDTIME SUBQ (DC) Insulin Human Lispro (HUMALOG) 7 UNIT AC SUBQ Ipratropium [place] (ATROVENT) 500 MCG RTQ2H PRN PRN INH Cyanocobalamin (Vitamin B-12 500 mcg tab) 500 MCG DAILY PO Ferrous Sulfate (FERROUS SULFATE) 325 MG DAILY PO Mupirocin (BACTROBAN 2% 22 GM OINTMENT) 1 APPLIC BID NASAL (DC) Doxycycline Monohydrate (DOXYCYCLINE MONOHYDRATE) 100 MG Q12HR PO Insulin Human Lispro (HUMALOG) 0 AC HS SUBQ Bisacodyl (DULCOLAX) 10 MG ONCE PRN RECTAL Magnesium Hydroxide (MILK OF MAGNESIA) 30 ML ONCE PRN PO Atorvastatin Calcium (LIPITOR) 40 MG 2100 PO Dextrose/Water (DEXTROSE 10% IN WATER) 250 ML ASDIR PRN IV (CKD) Insulin Human Regular (HumuLIN R) 100 UNIT ASDIR IV (CKD) Sodium Chloride (SODIUM CHLORIDE 0.9%) 99 ML Benzonatate (TESSALON PERLE) 200 MG Q8H PRN PRN PO Piperacillin Sod/Tazobactam Sod (ZOSYN 3.375GM) 3.375 GM Q8H IV (DC) Sodium Chloride (SODIUM CHLORIDE 0.9% 100 ML) 100 ML Clopidogrel Bisulfate (Plavix) 75 MG DAILY PO Polyethylene Glycol (MIRALAX) 17 GM DAILY PO Docusate Sodium (COLACE) 100 MG BID PO Metoprolol Tartrate (LOPRESSOR) 12.5 MG Q12HR PO Sennosides (Senna Lax 8.6 MG TABLET) 17.2 MG BEDTIME PO Aspirin (ASPIRIN) 81 MG DAILY PO Pantoprazole (PROTONIX) 40 MG DAILY@0600 PO Acetaminophen (TYLENOL) 650 MG Q4H PRN PRN PO Acetaminophen (TYLENOL) 650 MG Q4H PRN PRN RECTAL Calcium Chloride (CALCIUM CHLORIDE) 1 GM ASDIR PRN IV Dextrose/Water (DEXTROSE 10% IN WATER) 125 ML ASDIR PRN IV (CKD) Dextrose/Water (DEXTROSE 10% IN WATER) 250 ML ASDIR PRN IV (CKD) Epinephrine (ADRENALIN CHLORIDE) 4 MG ASDIR IV Dextrose/Water (DEXTROSE 5% WATER) 246 ML Glucagon (GLUCAGON) 1 MG ASDIR PRN IM Magnesium Sulfate (MAGNESIUM SULFATE 4GM/SWFI 100ML) 100 ML ASDIR PRN IV Magnesium Sulfate (MAGNESIUM SULFATE 2GM/SWFI 50ML) 50 ML ASDIR PRN IV Magnesium Sulfate/Dextrose (MAGNESIUM SULFATE 1GM/D5W 100ML) 100 ML ASDIR PRN IV Nitroglycerin/Dextrose (NITROGLYCERIN 50,000MCG/D5W 250ML) 250 ML ASDIR IV Norepinephrine Bitartrate (NOREPINEPHRINE 8 MG/NS 250 ML) 250 ML TITRATE IV Ondansetron HCl (ZOFRAN) 4 MG Q6H PRN PRN IV Potassium Chloride (KCL 20MEQ/SWFI 100ML) 100 ML ASDIR PRN IV Sodium Bicarbonate (SODIUM BICARBONATE) 50 MEQ ASDIR PRN IV Silver Sulfadiazine (SILVADENE 1% 50 GM CREAM) 1 APPLIC Q12HR TOPICAL Gabapentin (NEURONTIN) 200 MG TID PO Results Findings/Data: Laboratory Tests 05/05 05/05 05/05 05/04 05/04 1114 0659 0346 2016 1726 Chemistry Sodium (134 - 147 mEq/L) 138 Potassium (3.4 - 5.0 mEq/L) 3.6 Chloride (100 - 108 mEq/L) 102 Carbon Dioxide (21 - 33 mEq/l) 27 Anion Gap (0 - 20) 13 BUN (7 - 25 mg/dL) 14 Creatinine (0.6 - 1.3 mg/dL) 1.0 Glomerular Filtr Rate (90 - 95) 87.8 L Glucose (77 - 141 mg/dL) 157 H POC Glucose (70 - 110 MG/DL) 246 H 177 H 246 H 242 H Calcium (8.0 - 10.5 mg/dL) 8.9 Magnesium (1.6 - 2.6 mg/dL) 1.39 L Laboratory Tests 05/05 0346 Hematology WBC (4.5 - 11.0 x10 3/uL) 10.3 RBC (4.00 - 5.60 x10 6/uL) 3.23 L Hgb (12.5 - 16.9 g/dL) 9.8 L Hct (37.5 - 50.7 %) 29.6 L MCV (81.0 - 99.0 fL) 91.6 MCH (27.0 - 33.0 pg) 30.3 MCHC (33.0 - 37.0 g/dL) 33.1 RDW (11.5 - 14.5 %) 13.2 Plt Count (150 - 400 x10 3/uL) 302 MPV (7.0 - 9.0 fL) 10.2 H Neut % (Auto) (56.0 - 77.0 %) 70.6 Lymph % (Auto) (14.0 - 32.0 %) 18.9 [place] % (Auto) (4.8 - 9.0 %) 6.8 Eos % (Auto) (0.3 - 3.7 %) 2.8 Baso % (Auto) (0.0 - 2.0 %) 0.4 Neut # (Auto) (2.0 - 7.6 x10 3/uL) 7.26 Lymph # (Auto) (1.0 - 3.8 x10 3/uL) 1.94 [place] # (Auto) (0.1 - 0.8 x10 3/uL) 0.70 Eos # (Auto) (0.0 - 0.2 x10 3/uL) 0.29 H Baso # (Auto) (0.0 - 0.2 x10 3/uL) 0.04 Abs Immat Gran (auto) (0.00 - 0.03 x10 3/uL) 0.05 H Immature Gran % (0.0 - 2.0 %) 0.5 Nucleated RBC % (0 - 0 %) 0.0 Nucleated RBCs # (Man) (0.0 - 0.1 x10 3/uL) 0.00 Laboratory Tests 05/05 0346 Chemistry Magnesium (1.6 - 2.6 mg/dL) 1.39 L Free Text Obj Notes Free Text Obj Notes: GENERAL: Sitting in bedside chair, HEENT: Normocephalic, atraumatic NECK: JVP is raised LUNGS: Equal air entry bilaterally, normal vesicular breathing HEART: regular rate, normal S1 and S2, No murmurs, ABDOMEN: Soft, lax, non-tender, non-distended PERIPHERAL PULSES: 2+ dorsalis pedis pulses, left foot covered with dressing EXTREMITIES: +1 edema Diagnosis, Assessment Plan Consultants: cardiology, cardiovascular surgery, pulmonary Free Text DxA P Notes Free Text DxA P Notes: #NSTEMI #Severe multivessel CAD s/p CABG x6 with RICHARDS to LAD, sequential diagonal, SVG to ramus, SVG to OM, SVG to PDA, SVG to RPL, and amputation of the left atrial appendage. #Left foot diabetic foot infection with osteomyelitis S/P successful left foot fifth proximal phalanx and fifth metatarsal head resection on 04/25- on IV antibiotics per ID #Urinary tract infection #Hyperlipidemia #Diabetes mellitus-A1c 8.3 #Essential hypertension #Right lung cavitary lesion PLAN: -CABG work-up per CT surgery versus high risk PCI. -We will get arterial Doppler bilateral lower extremities to evaluate for PAD given left diabetic foot infection. -IV antibiotics per ID -Continue aspirin 81 mg daily. Increase atorvastatin from 40 mg to 80 mg nightly. Start metoprolol tartrate 12.5 mg twice daily. -Continue lisinopril 10 mg daily. 04/21/2023 -Patient seen and examined. Telemetry reviewed. Remains in sinus rhythm. Arterial duplex yesterday showed no evidence of any hemodynamically significant stenosis in the bilateral lower extremity arteries. LDL 92 mg/dL. Atorvastatin increased to 80 mg nightly yesterday. Continue aspirin 81 mg daily, lisinopril 10 mg daily, metoprolol tartrate 12.5 mg twice daily. ID on board for osteomyelitis. CT surgery on board for consideration of CABG. Timing will depend on treatment of foot infection. 04/22/2023: -Patient seen and examined. Telemetry reviewed. Remains in normal sinus rhythm. Increase metoprolol to tartrate to 25 mg twice daily. ID on board for osteomyelitis. Plan for CABG per CT surgery when medically stable and infection improved/resolved. Continue aspirin, high intensity atorvastatin, and lisinopril 10 mg daily. 04/25/2023: -Patient seen and examined. Telemetry reviewed. Remains in normal sinus rhythm. Underwent successful left foot fifth proximal phalanx and fifth metatarsal head resection yesterday. 6 weeks of IV antibiotic treatment plan per ID for osteomyelitis. Planning for CABG per CT surgery. No chest pain or shortness of breath currently. Continue aspirin 81 mg daily, atorvastatin 80 mg nightly, lisinopril 10 mg daily, and metoprolol tartrate 25 mg p.o. every 12 hourly. 04/26/2023: -Patient seen and examined. Telemetry reviewed. Remains in normal sinus rhythm. Plan for CABG likely next week per CT surgery. On IV antibiotics per ID. Denies any chest pain or shortness of breath. Continue aspirin 81 mg daily, atorvastatin 80 mg nightly, lisinopril 10 mg daily, and metoprolol tartrate 25 mg p.o. every 12 hourly. 04/27/2023: Patient seen and examined. Telemetry reviewed. In sinus rhythm. Plan for CABG next week per CT surgery. On IV cefepime and Flagyl per ID. Continue aspirin 81 mg daily, atorvastatin 80 mg nightly, lisinopril 10 mg daily, and metoprolol tartrate 25 mg p.o. every 12 hourly. 04/28/2023-postoperative day 1: -Patient seen and examined in CVICU. Telemetry reviewed. Remains in sinus rhythm. Underwent successful CABG x6 yesterday and amputation of left atrial appendage. Extubated successfully. Currently off pressors. Has a mediastinal and left chest tube with minimal output this morning. Not on any pressors. Advanced heart failure team consulted. Continue aspirin 81 mg daily, Plavix 75 mg daily, metoprolol tartrate 12.5 mg every 12 hourly, high intensity atorvastatin, and amiodarone 200 mg 3 times daily. 04/29/2023-postoperative day 2: -Patient seen and examined. Telemetry reviewed. Remains in sinus rhythm with occasional epicardial pacing noted yesterday evening. Appears volume overloaded today. Ported shortness of breath overnight. We will give Lasix 40 mg IV once. Advanced heart failure team on board. Continue aspirin 81 mg daily, Plavix 75 mg daily, metoprolol tartrate 12.5 mg every 12 hourly, high intensity atorvastatin and amiodarone 200 mg 3 times daily. 05/02/2023-Postoperative day 5: -Patient seen and examined. Telemetry reviewed. Remains in sinus rhythm. Chest tubes removed over the weekend. Epicardial pacing wires removed today. On IV antibiotics per ID. Continue aspirin 81 mg daily, Plavix 75 mg daily, metoprolol tartrate 12.5 mg every 12 hourly, high intensity atorvastatin and amiodarone 200 mg 3 times daily. Switch amiodarone to 200 mg once a day upon discharge. 05/03/2023-postoperative day 6: -Patient seen and examined. Telemetry reviewed. In sinus rhythm. Epicardial pacing wires removed and echocardiogram showed no pericardial effusion with normal EF. Appears volume overloaded. Diuresis per advanced heart failure team. Continue aspirin 81 mg daily, Plavix 75 mg daily, metoprolol tartrate 12.5 mg every 12 hourly, high intensity atorvastatin and amiodarone 200 mg 3 times daily. Switch amiodarone to 200 mg once a day upon discharge. 05/04/2023-postoperative day 7: -Patient seen and examined. Telemetry reviewed. In sinus rhythm. Amiodarone discontinued as patient initiated on IV ciprofloxacin due to concern for QT prolongation. Patient received a dose of IV ciprofloxacin and corrected QT on my calculation is 510 ms. We will keep him in-house today. We will continue ciprofloxacin for tonight and tomorrow followed by EKGs. Reassess tomorrow if he can be safely discharged on ciprofloxacin. Otherwise, ID will consider alternative IV antibiotic. Continue aspirin 81 mg daily, Plavix 75 mg daily, metoprolol tartrate 12.5 mg p.o. every 12 hourly and high intensity statin. 05/05/23-postoperative day 8: -Patient seen and examined. Telemetry reviewed. In sinus rhythm. EKGs reviewed. EKG in normal sinus rhythm with normal QRS duration showed no significant QT presentation. When he has baseline QRS widening, QT is prolonged but JTC is normal. Okay from cardiology perspective to continue ciprofloxacin on discharge. Continue aspirin 81 mg daily, Plavix 75 mg daily, metoprolol tartrate 12.5 mg p.o. every 12 hourly and high intensity statin. Patient will follow-up in the office in 1 to 2 weeks. at 1317 at 1501 [facility] #:[id number] END OF REPORT [facility] 2023-05-05 12:10:00 [id number] [place] [address] PATIENT NAME: JONG RIVAS ADMIT DATE: 04/19/23 ACCOUNT NO: [id number] ROOM NO: [facility] [place] AGE: 58 REPORT TYPE: eELECTROCARDIOGRAM REPORT SEX: M ADMITTING PHYSICIAN:Domenic Rainey MD ATTENDING PHYSICIAN:Domenic Rainey MD Order: [id number] Test Reason : QTC MONITORING Test Date/Time Stamp: TueMay 05 2023 12:10:51 Blood Pressure : / mmHG Vent. Rate : 083 BPM Atrial Rate : 083 BPM P-R Int : 158 ms QRS Dur : 132 ms QT Int : 488 ms P-R-T Axes : 061 -40 081 degrees QTc Int : 573 ms Normal sinus rhythm Left axis deviation Right bundle branch block Abnormal ECG When compared with ECG of 16-NOV-2023 06:57, Significant changes have occurred Confirmed by CHARISSA GUERRERO MD ([id number]) on 05/19/2023 5:10:52 PM Referred By: Domenic Rainey Confirmed by:CHARISSA GUERRERO MD at 1710 PATIENT NAME: JONG RIVAS [facility] 2023-05-05 11:00:00 [facility] ([facility]) Infectious Dis. Progress Note REPORT#:[id number] REPORT STATUS: Signed REPORT INITIALIZATION DATE:05/05/23 TIME: 1100 PATIENT: JONG RIVAS UNIT #: [id number] ROOM/BED: [place] [id number] : 66 AGE: 58 SEX: M ATTEND: Domenic Rainey MD ADM AUTHOR: Kirk Wakefield MD REPT SERVICE DT/TIME: 05/05/23 1100 * ALL edits or amendments must be made on the electronic/computer document * Subjective Chief complaint: Left-sided diabetic foot infection with osteomyelitis HPI: Reports feeling okay and denies acute or new complaints currently. Wants to go home. No major overnight events. Objective General VS/I O: Vital Signs Date Temp Pulse Resp B/P B/P Mean Pulse Ox FiO2 05/04-05/05 98.1-98.6 73-80 12-25 112-129/62-67 0.0 94-100 Last Documented: Result Date Time Pulse Ox 99 05/05 0831 O2 Delivery Room air 05/05 0831 B/P 118/65 05/05 0703 B/P Mean 0.0 05/05 0703 Temp 98.2 05/05 0703 Pulse 77 05/05 0703 Resp 12 05/05 0703 FiO2 21 05/02 1527 O2 Flow Rate 0 05/01 1800 Vital Signs: Date Time Temp Pulse Resp B/P B/P Pulse O2 O2 Flow FiO2 Mean Ox Delivery Rate 05/05 0831 99 Room air 05/05 0703 98.2 77 12 118/65 0.0 94 Room air 05/05 0316 98.2 76 20 123/66 0.0 94 Room air 05/04 2313 98.2 77 20 118/66 0.0 94 Room air 11/15 2000 100 Room air 05/04 1805 98.6 79 16 113/62 0.0 96 Room air 05/04 1729 98.1 80 14 112/66 0.0 99 05/04 1158 98.1 73 25 129/67 0.0 98 24 hour I O ending at 0700: 05/05 0700 05/04 1900 Intake Total 800 Output Total 800 Balance 0 Intake, Oral 800 Output, Urine 800 Patient 108 kg Weight Weight Standing scale Measurement Method PATIENT WEIGHT: Weight (lb): 238 Weight (oz): 1.59 Weight (kg): 108.000 Physical Exam General appearance: alert, awake, no acute distress Cardiovascular: normal heart sounds, regular rate rhythm, no murmur Respiratory: clear to auscultation, symmetric expansion Abdomen: non-tender, soft, no distention Extremities: no cyanosis, left foot dressed; dressing clean, dry and intact; dressing not removed for exam bilateral legs pitting edema noted pitting edema of legs noted 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 Rivas is a 58-year-old male with history of diabetes mellitus type 2, hypertension, prior smoking history, chronic PE, chronic left foot ulcer. He was admitted at [facility] with complaints of chest pain. He had a coronary angiogram done which showed multivessel CAD and EF of 50%. Patient also has a right lower lobe cavitary lung lesion, which is suspected to be from prior PE. TB QuantiFERON has been requested at the outside facility and was pending at the time of transfer. Infectious disease consultation is requested because patient has a chronic, nonhealing wound in the left lateral foot for last 7 to 8 months according to him. The wound is obviously infected and foul-smelling on exam. He had an MRI done at the outside facility, which shows osteomyelitis of the fifth metatarsal. Patient has a PICC line in place, from outside facility. I was able to review blood cultures, which were reportedly negative at 48 hours. He did have a urine culture positive for Pseudomonas. Other culture data is not available to me. Infectious disease consultation is requested for left-sided diabetic foot infection with osteomyelitis. Patient is being evaluated for possible CABG versus high risk PCI *Left-sided diabetic foot infection with osteomyelitis *Left foot cellulitis *Multivessel CAD, s/p CABG times 5 on 04/27/2023 *RLL cavitary lung lesion, question due to prior PE *Pseudomonas UTI, treated with cefepime *Diabetes mellitus type 2 *Hypertension *Peripheral neuropathy *Prior PE -Afebrile. -Remains on room air. -Normal WBC count on today's CBC. -ESR 106; CRP 77 on 05/02/2023 (previous values: ESR 87; CRP 25 on 04/21/2023). -Blood cultures 04/21/23 negative x 2. -MRSA screen negative. -Called [facility] earlier. Patient's blood cultures have been negative there. Wound culture is positive for MSSA and Pseudomonas ( pansensitive isolate). -Podiatry service is following. Patient is s/p left foot I D and fifth proximal phalanx and metatarsal head resection on 04/24/2023. -Surgical cultures with growth of Pseudomonas aeruginosa, alpha Streptococcus species, many Staphylococcus epidermidis, methicillin-resistant (MRSE) and also with growth of Enterococcus raffinosus (ampicillin sensitive). -S/p CABG times 5 on 04/27/2023. Plan: -See antimicrobial history below. -Patient had been on piperacillin-tazobactam between 04/28/2023-05/04/2023. -Treatment switched to oral regimen 05/04/2023 in preparation for discharge: Augmentin 875 mg p.o. twice daily + ciprofloxacin 500 mg p.o. twice daily + doxycycline 100 mg p.o. twice daily. -However, patient's QTc seems to have prolonged on fluoroquinolone treatment. -Therefore, making arrangements for home IV antibiotic, piperacillin-tazobactam, plus oral doxycycline, as it would avoid need for fluoroquinolone. -Patient already has a PICC line in place. -Discussed with case management in person. -Given osteomyelitis, would plan for a 6-week course of antibiotic treatment in total. -Tentative stop date: 06/09/2023. -Safety labs while on IV antibiotics (on discharge): CBC with differential, CMP , ESR, CRP weekly. -Patient has my clinic information and has been advised to follow-up with us as outpatient. CURRENT ANTIMICROBIALS: Doxycycline, started 04/27/2023 Augmentin + ciprofloxacin, started 05/04/2023 Tentative stop date of antimicrobials: 06/09/2023 (Previously on: Cefepime + metronidazole between 04/21/2023-04/27/2023 Piperacillin-tazobactam between 04/28/2023-05/04/2023) at 1107 [facility] #:[id number] END OF REPORT [facility] 2023-05-05 06:57:00 [id number] [facility] [place] [address] PATIENT NAME: JONG RIVAS ADMIT DATE: 04/19/23 ACCOUNT NO: [id number] ROOM NO: [facility] [place] AGE: 58 REPORT TYPE: eELECTROCARDIOGRAM REPORT SEX: M ADMITTING PHYSICIAN:Domenic Rainey MD ATTENDING PHYSICIAN:Domenic Rainey MD Order: [id number] Test Reason : QTc monitoring Test Date/Time Stamp: TueMay 05 2023 06:57:04 Blood Pressure : / mmHG Vent. Rate : 077 BPM Atrial Rate : 077 BPM P-R Int : 164 ms QRS Dur : 132 ms QT Int : 492 ms P-R-T Axes : 049 -09 075 degrees QTc Int : 556 ms Normal sinus rhythm Right bundle branch block Possible Inferior infarct , age undetermined Abnormal ECG When compared with ECG of 04-MAY-2023 20:48, Significant changes have occurred Confirmed by YOL[facility]DA [facility] ([id number]) on 05/19/2023 5:10:04 PM Referred By: Domenic Rainey Confirmed by:CHARISSA GUERRERO MD at 1710 PATIENT NAME: JONG RIVAS [facility] 2023-05-05 06:15:00 [facility] ([facility]) Cardiothoracic Surgery Prog REPORT#:[id number] REPORT STATUS: Signed REPORT INITIALIZATION DATE:05/05/23 TIME: 0615 PATIENT: JONG RIVAS UNIT #: [id number] ROOM/BED: [place] [id number] : 66 AGE: 58 SEX: M ATTEND: Domenic Rainey MD ADM AUTHOR: Viky Mclaughlin Physic REPT SERVICE DT/TIME: 05/05/2315 * ALL edits or amendments must be made on the electronic/computer document * General Post-op: day 8 Status post: 04/27/23 CABG x 5 (RICHARDS-LAD, Seq-diag, SVG-OM1, SVG-OM2, SVG-PDA) EVH (LGSV) ALAA Subjective Chief complaint: Postop CABG Currently no complaints, resting comfortable Review of Systems Constitutional: Reports: fatigue. Skin: Denies: bruising, contusion, diaphoresis, ecchymosis. Allergy/Immun: Denies: allergic reaction, itching, rhinorrhea, sneezing. Eyes: Denies: redness, discharge, visual loss/blurred. ENT: Denies: throat pain, throat swelling, tongue pain, tongue swelling, toothache. Respiratory: Reports: MENDES (dyspnea on exertion). Denies: SOB, wheezing. Cardiovascular: Denies: chest pain, edema, orthopnea, palpitations. GI: Denies: abdominal pain, nausea, vomiting. : Denies: dysuria, flank pain. Musculoskeletal: Denies: extremity pain, extremity swelling. Psych: Denies: agitation, anxiety, auditory hallucination, visual hallucination. All systems rev neg: except as marked Objective General VS/I O Last Documented: Result Date Time Pulse Ox 94 05/05 316 B/P 123/66 05/05 316 B/P Mean 0.0 05/05 316 O2 Delivery Room air 05/05 316 Temp 98.2 05/05 316 Pulse 76 05/05 316 Resp 20 05/05 316 FiO2 21 05/02 1527 O2 Flow Rate 0 05/01 1800 24 hour I O ending at 0700: 05/05 0700 05/04 1900 Intake Total 800 Output Total 800 Balance 0 Intake, Oral 800 Output, Urine 800 Patient 108 kg Weight Weight Standing scale Measurement Method PATIENT WEIGHT: Weight (lb): 238 Weight (oz): 1.59 Weight (kg): 108.000 Physical Exam General appearance: alert, awake, oriented Wound/incision: Location: Left foot toe amputation HEENT: anicteric, mucosal membranes moist, pupils reactive to light Neck: full range of motion, non-tender Cardiovascular: normal heart sounds, regular rate rhythm Respiratory: aerating well, clear to auscultation, symmetric expansion, no distress Abdomen: soft, non-tender Genitourinary: no bladder distention, no flank pain Extremities: dry, moves all, normal capillary refill, normal temperature Musculoskeletal: full range of motion, painless range of motion 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 Patient transferred from [facility], referred to us from Dr. Forde for acute coronary syndrome, unstable angina, ischemic heart disease status post coronary angiogram, with findings of multivessel CAD, EF 50%. Upon further chart review patient found to have chronic cavitary lung lesion on CT chest pending QuantiFERON, left lower extremity diabetic foot ulcer concerning for osteomyelitis MRI done at [place] and will upload imaging, foot wound culture with pseudomonas, UTI with urine culture Pseudomonas treated with cefepime. Patient reports dyspnea on exertion and mild chest pain x1 year. 04/18/23: Coronary angiogram done at [facility] Left main patent LAD with high-grade and tortuous calcified lesion just after the first diagonal estimated 95% stenosis first diagonal branch with severe calcified disease 99% Ramus 90 to 95% stenosis, left circumflex artery 99% proximal stenosis OM branches severe disease as well. RCA 90%. LVEDP 11 mmHg and angiography demonstrated preserved LV systolic function, EF 50%. Inferior wall demonstrated mild hypokinesis. 1-2+ MR on LV angio. RICHARDS patent Carotid angiogram, patent carotids Assessment: CAD, severe multivessel Left foot nonhealing foot ulcer Chronic cavitary lesion noted on CT chest UTI Pseudomonas 2023 Patient seen and evaluated by Dr. Rainey CABG eval underway -Consult pulmonology, cardiology, wound care -Lovenox DVT prophylaxis Continue supportive care Further recommendations to follow 04/21/2023 CABG eval underway Patient sitting up in bed, room air, no distress. No complaints Patient with multiple complex medical issues ongoing. Timing of major CV surgery pending medical optimization. We will discuss patient at high risk CV Case conference on Tuesday. -Continue supportive care Seen and examined by Dr. Rainey 04/23/2023 CABG eval underway Patient sitting up in bed, room air, no distress. No complaints Patient with multiple complex medical issues ongoing. Timing of major CV surgery pending medical optimization. Left foot MRI complete with fifth MTP effusion/possible septic arthritis with osteomyelitis changes, no drainable soft tissue abscess. -Amputation left fifth toe and metatarsal scheduled by podiatry for tomorrow -Blood cultures 04/21/2023 no growth after 24-hour -UA negative -Lovenox DVT prophylaxis Continue supportive care Further recommendations to follow 04/24/2023 CABG eval underway Patient sitting up in bed, room air, no distress. No complaints -Amputation left fifth toe and metatarsal scheduled by podiatry for today -Blood cultures 04/21/2023 no growth after 48-hour -follow tissue culture Continue supportive care Further recommendations to follow 04/25/2023 CABG eval underway, plan for OR likely next week to allow patient some time to recover from amputation. Patient sitting up in bed, room air, no distress. No complaints S/P Amputation left fifth toe and metatarsal -Blood cultures 04/21/2023 no growth after 72-hour Encourage OOBTC, IS, PT/OT Continue supportive care Further recommendations to follow 04/26/2023 CABG eval underway, plan for OR likely next week to allow patient some time to recover from amputation. Patient sitting up in bed, room air, no distress. No complaints S/P Amputation left fifth toe and metatarsal -Blood cultures 04/21/2023 no growth after 72-hour Encourage OOBTC, IS, PT/OT Continue supportive care Further recommendations to follow 04/27/23 Patient resting comfortable. Denies complaints AAO x 3 respiratory spi: on room air. Remains sinus rhythm ID following - CABG after 04/27/23 completed ABX Carotid Dopplers showed less than 50% stenosis. Vein mapping complete CT of the chest completed Consider surgery this afternoon. Ryan brown NPO. Patient seen and Examined with Dr. Rainey. STS score calculated. 0.8% Coronary bypass graft surgery was discussed with the patient. The risk of the operation including the STS score, risk of bleeding, infection, , heart attack, stroke, prolonged ICU stay, renal failure, dialysis, need for long-term rehabilitation etc. was discussed with the patient. The patient's questions were answered and the patient agreed to proceed with surgery. 04/27/23 1. Coronary artery bypass graft surgery x5 (RICHARDS to LAD, sequential to diagonal, saphenous vein to first marginal, saphenous vein to second marginal, saphenous vein to PDA). 2. Amputation of left atrial appendage. 3. Posterior pericardiotomy. 4. Endoscopic vein harvest (left greater saphenous vein). 04/28/23 On room air. POD 1 AAOx3 Patient reports pain controlled. Respiratory: on room air. Encourage IS, Deep Breathing, CXR reviewed, CT outputs- Re-access after walking. Cardiac: Remains sinus rhythm, pacing wires on standby GI: Tolerating diet, passing gas. Continue Bowel regimen : Walton in place. UO:650 Continue PT/OT Disposition: Patient lives alone. We will consult rehab. Patient DVT prophylaxis, SCDs in place Labs reveiwed- replace electrolytes as needed Patient seen and examined by Dr. Rainey. Plan of care discussed with multidisciplinary team Continue supportive care. 04/29/23 On room air. POD 2 AAOx3 Patient reports pain controlled. Respiratory: on room air. Encourage IS, Deep Breathing, CXR reviewed, Cardiac: Remains sinus rhythm, pacing wires on standby GI: Tolerating diet, passing gas. Continue Bowel regimen : Walton in place. Will DC Walton later today UO:580, 40 Lasix ordered today. Continue PT/OT out of bed walking with PT today. Disposition: Patient lives alone. We will consult rehab. Patient DVT prophylaxis, SCDs in place Labs reveiwed- replace electrolytes as needed Plan of care discussed with multidisciplinary team Continue supportive care. 04/30/23 POD 3 AAOx3 Patient reports pain controlled. Respiratory: on room air. ALL CT out. Encourage IS, Deep Breathing, CXR reviewed, Cardiac: Remains sinus rhythm, pacing wires on standby GI: Tolerating diet,+ BM. Continue Bowel regimen UO: 1740 Continue PT/OT out of bed walking with PT today. Disposition: Patient lives alone. Rehab consulted however Patient walked 400 feet yesterday DVT prophylaxis, SCDs in place Labs reveiwed- replace electrolytes as needed Plan of care discussed with multidisciplinary team Continue supportive care. ABX as per ID recommendations. Making good progress., Patient was seen and examined with Dr. Prince 05/01/23 POD 4 AAOx3 Patient reports pain controlled. Respiratory: on room air. ALL CT out., Encourage IS, Deep Breathing, CXR reviewed, Cardiac: Remains sinus rhythm, pacing wires on standby GI: Tolerating diet,+ BM yesterday. Continue Bowel regimen UO: 1450 Continue PT/OT out of bed walking with PT today. Disposition: Patient lives alone. Rehab consulted however Patient walked 400 feet yesterday DVT prophylaxis, SCDs in place Labs reveiwed- replace electrolytes as needed Plan of care discussed with multidisciplinary team ABX as per ID recommendations. Give Lasix today, Continuie 05/02/23 POD 5 AAOx3 Patient reports pain controlled. Respiratory: on room air. ALL CT out., Encourage IS, Deep Breathing, CXR reviewed, Cardiac: Remains sinus rhythm, pacing wires on standby GI: Tolerating diet,+ BM Continue Bowel regimen UO: 2500 Continue PT/OT out of bed walking with PT today. Disposition: home DVT prophylaxis, SCDs in place Labs reveiwed- replace electrolytes as needed Plan of care discussed with multidisciplinary team ABX as per ID recommendations. Switch to PO? DVT studies negative Home Tomorrow? 05/03/23 POD 6 AAOx3 Patient reports pain controlled. Respiratory: on room air. ALL CT out., Encourage IS, Deep Breathing, CXR reviewed, Cardiac: Remains sinus rhythm, pacing wires dc'd yesterday, Pending echo report. GI: Tolerating diet,+ BM Continue Bowel regimen Patient has been out of bed walking Disposition: home DVT prophylaxis, SCDs in place Labs reveiwed- replace electrolytes as needed Plan of care discussed with multidisciplinary team ABX as per ID recommendations. Switch to PO upon discharge. DVT studies negative Patient seen and examined by Dr. Rainey. We will give additional Lasix this afternoon. Consider home tomorrow. 05/04/23 POD 7 AAOx3 Patient reports pain controlled. Respiratory: on room air. ALL CT out., Encourage IS, Deep Breathing, CXR reviewed, Cardiac: Remains sinus rhythm, . GI: Tolerating diet,+ BM Continue Bowel regimen Patient has been out of bed walking Disposition: home DVT prophylaxis, SCDs in place Labs reveiwed- replace electrolytes as needed Plan of care discussed with multidisciplinary team ABX as per ID recommendations. Switch to PO upon discharge. DVT studies negative Okay to DC patient home today. 05/05/23 POD 8 AAOx3 Patient reports pain controlled. Respiratory: on room air. Cardiac: Remains sinus rhythm, GI: Tolerating diet,+ BM Continue Bowel regimen Disposition: home Labs reveiwed- replace electrolytes as needed Plan of care discussed with multidisciplinary team Started on PO antibiotics yesterday, Kept overnight for observation. Okay to DC patient home today when okay with cardiology and ID. Consultants: cardiology, cardiovascular surgery, pulmonary at 1412 at 0750 RPT #:[id number] END OF REPORT [facility] 2023-05-04 20:48:00 [id number] [place] [address] PATIENT NAME: JONG RIVAS ADMIT DATE: 04/19/23 ACCOUNT NO: [id number] ROOM NO: [facility] [place] AGE: 58 REPORT TYPE: eELECTROCARDIOGRAM REPORT SEX: M ADMITTING PHYSICIAN:Domenic Rainey MD ATTENDING PHYSICIAN:Domenic Rainey MD Order: [id number] Test Reason : QTc monitoring Test Date/Time Stamp: TueMay 04 2023 20:48:04 Blood Pressure : / mmHG Vent. Rate : 087 BPM Atrial Rate : 087 BPM P-R Int : 158 ms QRS Dur : 084 ms QT Int : 392 ms P-R-T Axes : 060 045 032 degrees QTc Int : 471 ms Normal sinus rhythm Normal ECG When compared with ECG of 04-MAY-2023 13:58, Significant changes have occurred See Emergency Department physician record for final interpretation. Confirmed by CHARISSA GUERRERO MD ([id number]) on 05/19/2023 5:09:19 PM Referred By: Domenic Rainey Confirmed by:CHARISSA GUERRERO MD at 1701 PATIENT NAME: JONG RIVAS [facility] 2023-05-04 16:50:00 [facility] ([facility]) Endocrinology Progress Note REPORT#:[id number] REPORT STATUS: Signed REPORT INITIALIZATION DATE:05/04/23 TIME: 1649 PATIENT: JONG RIVAS UNIT #: [id number] ROOM/BED: [place] [id number] : 66 AGE: 58 SEX: M ATTEND: Domenic Rainey MD ADM AUTHOR: Vlad Lay MD REPT SERVICE DT/TIME: 05/04/231649 * ALL edits or amendments must be made on the electronic/computer document * Subjective Patient reports: no complaints Objective General VS: Last Documented: Result Date Time Pulse Ox 98 05/04 1158 B/P 129/67 05/04 1158 B/P Mean 0.0 05/04 1158 Temp 36.7 05/04 1158 Pulse 73 05/04 1158 Resp 25 05/04 1158 O2 Delivery Room air 05/04 0301 FiO2 21 05/02 1527 O2 Flow Rate 0 05/01 1800 PATIENT WEIGHT: Weight (lb): 233 Weight (oz): 11.04 Weight (kg): 106.000 Medications: Active Meds + DC'd Last 24 Hrs Amoxicillin/Clavulanate Potassium (AUGMENTIN 875) 875 MG Q12HR PO (CKD) Ciprofloxacin HCl (CIPRO) 500 MG Q12HR PO Ciprofloxacin HCl (CIPRO) 500 MG ONCE ONE PO (DC) Oxycodone HCl (ROXICODONE) 5 MG Q6H PRN PRN PO Furosemide (LASIX 40 mg/4 mL INJECTION) 40 MG ONCE ONE IV (DC) Furosemide (LASIX 40 mg/4 mL INJECTION) 40 MG DAILY IV Insulin Glargine (Semglee) 20 UNIT BEDTIME SUBQ Insulin Human Lispro (HUMALOG) 7 UNIT AC SUBQ Ipratropium [place] (ATROVENT) 500 MCG RTQ2H PRN PRN INH Cyanocobalamin (Vitamin B-12 500 mcg tab) 500 MCG DAILY PO Ferrous Sulfate (FERROUS SULFATE) 325 MG DAILY PO Mupirocin (BACTROBAN 2% 22 GM OINTMENT) 1 APPLIC BID NASAL Doxycycline Monohydrate (DOXYCYCLINE MONOHYDRATE) 100 MG Q12HR PO Insulin Human Lispro (HUMALOG) 0 AC HS SUBQ Bisacodyl (DULCOLAX) 10 MG ONCE PRN RECTAL Magnesium Hydroxide (MILK OF MAGNESIA) 30 ML ONCE PRN PO Atorvastatin Calcium (LIPITOR) 40 MG 2100 PO Dextrose/Water (DEXTROSE 10% IN WATER) 250 ML ASDIR PRN IV (CKD) Insulin Human Regular (HumuLIN R) 100 UNIT ASDIR IV (CKD) Sodium Chloride (SODIUM CHLORIDE 0.9%) 99 ML Benzonatate (TESSALON PERLE) 200 MG Q8H PRN PRN PO Piperacillin Sod/Tazobactam Sod (ZOSYN 3.375GM) 3.375 GM Q8H IV (DC) Sodium Chloride (SODIUM CHLORIDE 0.9% 100 ML) 100 ML Clopidogrel Bisulfate (Plavix) 75 MG DAILY PO Polyethylene Glycol (MIRALAX) 17 GM DAILY PO Docusate Sodium (COLACE) 100 MG BID PO Metoprolol Tartrate (LOPRESSOR) 12.5 MG Q12HR PO Sennosides (Senna Lax 8.6 MG TABLET) 17.2 MG BEDTIME PO Aspirin (ASPIRIN) 81 MG DAILY PO Pantoprazole (PROTONIX) 40 MG DAILY@0600 PO Amiodarone HCl (CORDARONE) 200 MG TID PO (DC) Acetaminophen (TYLENOL) 650 MG Q4H PRN PRN PO Acetaminophen (TYLENOL) 650 MG Q4H PRN PRN RECTAL Calcium Chloride (CALCIUM CHLORIDE) 1 GM ASDIR PRN IV Dextrose/Water (DEXTROSE 10% IN WATER) 125 ML ASDIR PRN IV (CKD) Dextrose/Water (DEXTROSE 10% IN WATER) 250 ML ASDIR PRN IV (CKD) Epinephrine (ADRENALIN CHLORIDE) 4 MG ASDIR IV Dextrose/Water (DEXTROSE 5% WATER) 246 ML Glucagon (GLUCAGON) 1 MG ASDIR PRN IM Magnesium Sulfate (MAGNESIUM SULFATE 4GM/SWFI 100ML) 100 ML ASDIR PRN IV Magnesium Sulfate (MAGNESIUM SULFATE 2GM/SWFI 50ML) 50 ML ASDIR PRN IV Magnesium Sulfate/Dextrose (MAGNESIUM SULFATE 1GM/D5W 100ML) 100 ML ASDIR PRN IV Nitroglycerin/Dextrose (NITROGLYCERIN 50,000MCG/D5W 250ML) 250 ML ASDIR IV Norepinephrine Bitartrate (NOREPINEPHRINE 8 MG/NS 250 ML) 250 ML TITRATE IV Ondansetron HCl (ZOFRAN) 4 MG Q6H PRN PRN IV Potassium Chloride (KCL 20MEQ/SWFI 100ML) 100 ML ASDIR PRN IV Sodium Bicarbonate (SODIUM BICARBONATE) 50 MEQ ASDIR PRN IV Silver Sulfadiazine (SILVADENE 1% 50 GM CREAM) 1 APPLIC Q12HR TOPICAL Gabapentin (NEURONTIN) 200 MG TID PO Physical Exam General appearance: alert, awake Diagnosis, Assessment Plan Hospital course to date: Laboratory Tests: 05/04 05/04 05/04 05/03 1157 0759 0328 9 Chemistry Sodium (134 - 147 mEq/L) 137 Potassium (3.4 - 5.0 mEq/L) 3.6 Chloride (100 - 108 mEq/L) 102 Carbon Dioxide (21 - 33 mEq/l) 28 Anion Gap (0 - 20) 10 BUN (7 - 25 mg/dL) 21 Creatinine (0.6 - 1.3 mg/dL) 1.1 Glomerular Filtr Rate (90 - 95) 78.3 L Glucose (77 - 141 mg/dL) 306 H POC Glucose (70 - 110 MG/DL) 218 H 233 H 211 H Calcium (8.0 - 10.5 mg/dL) 8.5 Magnesium (1.6 - 2.6 mg/dL) 1.52 L Hematology WBC (4.5 - 11.0 x10 3/uL) 8.2 RBC (4.00 - 5.60 x10 6/uL) 3.05 L Hgb (12.5 - 16.9 g/dL) 9.1 L Hct (37.5 - 50.7 %) 28.3 L MCV (81.0 - 99.0 fL) 92.8 MCH (27.0 - 33.0 pg) 29.8 MCHC (33.0 - 37.0 g/dL) 32.2 L RDW (11.5 - 14.5 %) 13.2 Plt Count (150 - 400 x10 3/uL) 273 MPV (7.0 - 9.0 fL) 10.7 H Neut % (Auto) (56.0 - 77.0 %) 69.6 Lymph % (Auto) (14.0 - 32.0 %) 18.2 [place] % (Auto) (4.8 - 9.0 %) 8.4 Eos % (Auto) (0.3 - 3.7 %) 2.9 Baso % (Auto) (0.0 - 2.0 %) 0.5 Neut # (Auto) (2.0 - 7.6 x10 3/uL) 5.73 Lymph # (Auto) (1.0 - 3.8 x10 3/uL) 1.50 [place] # (Auto) (0.1 - 0.8 x10 3/uL) 0.69 Eos # (Auto) (0.0 - 0.2 x10 3/uL) 0.24 H Baso # (Auto) (0.0 - 0.2 x10 3/uL) 0.04 Abs Immat Gran (auto) (0.00 - 0.03 x10 3/uL) 0.03 Immature Gran % (0.0 - 2.0 %) 0.4 Nucleated RBC % (0 - 0 %) 0.0 Nucleated RBCs # (Man) (0.0 - 0.1 x10 3/uL) 0.00 Recent Impressions: RADIOLOGY - XR CHEST 1 V 05/04 1187 Report Impression - Status: SIGNED Entered: 05/04/2023 0746 IMPRESSION: Single AP view of the chest is provided. Support lines and tubes are unchanged. Perihilar alveolar opacities have diminished. There is no pneumothorax. No additional interval change. Impression By: [email or web address] - Oziel Bro M.D. Laboratory Tests: 05/03 05/03 05/02 05/02 1110 0224 1922 1647 Chemistry Sodium (134 - 147 mEq/L) 138 Potassium (3.4 - 5.0 mEq/L) 4.1 Chloride (100 - 108 mEq/L) 104 Carbon Dioxide (21 - 33 mEq/l) 28 Anion Gap (0 - 20) 10 BUN (7 - 25 mg/dL) 18 Creatinine (0.6 - 1.3 mg/dL) 1.0 Glomerular Filtr Rate (90 - 95) 87.8 L Glucose (77 - 141 mg/dL) 147 H POC Glucose (70 - 110 MG/DL) 181 H 160 H 109 Calcium (8.0 - 10.5 mg/dL) 8.7 Magnesium (1.6 - 2.6 mg/dL) 1.72 Hematology WBC (4.5 - 11.0 x10 3/uL) 7.8 RBC (4.00 - 5.60 x10 6/uL) 3.06 L Hgb (12.5 - 16.9 g/dL) 9.1 L Hct (37.5 - 50.7 %) 27.9 L MCV (81.0 - 99.0 fL) 91.2 MCH (27.0 - 33.0 pg) 29.7 MCHC (33.0 - 37.0 g/dL) 32.6 L RDW (11.5 - 14.5 %) 13.2 Plt Count (150 - 400 x10 3/uL) 256 MPV (7.0 - 9.0 fL) 10.2 H Neut % (Auto) (56.0 - 77.0 %) 68.5 Lymph % (Auto) (14.0 - 32.0 %) 20.3 [place] % (Auto) (4.8 - 9.0 %) 7.8 Eos % (Auto) (0.3 - 3.7 %) 2.4 Baso % (Auto) (0.0 - 2.0 %) 0.4 Neut # (Auto) (2.0 - 7.6 x10 3/uL) 5.37 Lymph # (Auto) (1.0 - 3.8 x10 3/uL) 1.59 [place] # (Auto) (0.1 - 0.8 x10 3/uL) 0.61 Eos # (Auto) (0.0 - 0.2 x10 3/uL) 0.19 Baso # (Auto) (0.0 - 0.2 x10 3/uL) 0.03 Abs Immat Gran (auto) (0.00 - 0.03 x10 3/uL) 0.05 H Immature Gran % (0.0 - 2.0 %) 0.6 Nucleated RBC % (0 - 0 %) 0.0 Nucleated RBCs # (Man) (0.0 - 0.1 x10 3/uL) 0.00 Recent Impressions: RADIOLOGY - XR CHEST 1 V 05/03 0646 Report Impression - Status: SIGNED Entered: 05/03/2023 0824 IMPRESSION: No significant change compared to prior study. Postcardiac surgical changes and unchanged pulmonary vascular congestion. Mild atelectasis of the lung bases, left greater than right. Impression By: DR.BAGAR Janiya Butler D.O Laboratory Tests: 05/02 05/02 05/02 05/02 1140 0736 0205 0205 Chemistry Sodium (134 - 147 mEq/L) 133 L Potassium (3.4 - 5.0 mEq/L) 4.0 Chloride (100 - 108 mEq/L) 105 Carbon Dioxide (21 - 33 mEq/l) 26 Anion Gap (0 - 20) 6 BUN (7 - 25 mg/dL) 19 Creatinine (0.6 - 1.3 mg/dL) 0.9 Glomerular Filtr Rate (90 - 95) 99.6 H Glucose (77 - 141 mg/dL) 159 H POC Glucose (70 - 110 MG/DL) 151 H 154 H Calcium (8.0 - 10.5 mg/dL) 8.7 Magnesium (1.6 - 2.6 mg/dL) 1.84 C-Reactive Protein (<10.0 mg/L) 77.0 H Hematology WBC (4.5 - 11.0 x10 3/uL) 9.1 RBC (4.00 - 5.60 x10 6/uL) 3.33 L Hgb (12.5 - 16.9 g/dL) 9.8 L Hct (37.5 - 50.7 %) 30.2 L MCV (81.0 - 99.0 fL) 90.7 MCH (27.0 - 33.0 pg) 29.4 MCHC (33.0 - 37.0 g/dL) 32.5 L RDW (11.5 - 14.5 %) 13.2 Plt Count (150 - 400 x10 3/uL) 292 MPV (7.0 - 9.0 fL) 10.3 H Neut % (Auto) (56.0 - 77.0 %) 71.0 Lymph % (Auto) (14.0 - 32.0 %) 17.5 [place] % (Auto) (4.8 - 9.0 %) 7.4 Eos % (Auto) (0.3 - 3.7 %) 2.8 Baso % (Auto) (0.0 - 2.0 %) 0.6 Neut # (Auto) (2.0 - 7.6 x10 3/uL) 6.44 Lymph # (Auto) (1.0 - 3.8 x10 3/uL) 1.59 [place] # (Auto) (0.1 - 0.8 x10 3/uL) 0.67 Eos # (Auto) (0.0 - 0.2 x10 3/uL) 0.25 H Baso # (Auto) (0.0 - 0.2 x10 3/uL) 0.05 Abs Immat Gran (auto) (0.00 - 0.03 x10 3/uL) 0.06 H Immature Gran % (0.0 - 2.0 %) 0.7 Nucleated RBC % (0 - 0 %) 0.0 Nucleated RBCs # (Man) (0.0 - 0.1 x10 3/uL) 0.00 ESR Westergren (0 - 15 mm/hr) 106 H 05/01 05/01 05/01 1929 1520 1518 Chemistry Sodium (134 - 147 mEq/L) 136 Potassium (3.4 - 5.0 mEq/L) 4.0 Chloride (100 - 108 mEq/L) 104 Carbon Dioxide (21 - 33 mEq/l) 26 Anion Gap (0 - 20) 11 BUN (7 - 25 mg/dL) 19 Creatinine (0.6 - 1.3 mg/dL) 1.0 Glomerular Filtr Rate (90 - 95) 87.8 L Glucose (77 - 141 mg/dL) 149 H POC Glucose (70 - 110 MG/DL) 163 H 131 H Calcium (8.0 - 10.5 mg/dL) 8.5 Phosphorus (2.5 - 4.9 MG/DL) 3.0 Magnesium (1.6 - 2.6 mg/dL) 1.63 Recent Impressions: RADIOLOGY - XR CHEST 1 V 05/02 0500 Report Impression - Status: SIGNED Entered: 05/02/2023 0828 IMPRESSION: No significant change from the prior Impression By: [email or web address] - Anu Amador M.D. ULTRASOUND - DUP VEIN ANALI 05/02 1132 Report Impression - Status: SIGNED Entered: 05/02/2023 1155 IMPRESSION: 1. No evidence of deep venous thrombosis within the visualized venous structures of bilateral lower extremities. Impression By: [email or web address] - Ramon Smiley M.D. Laboratory Tests: 05/01 05/01 05/01 04/30 04/30 1054 0830 0203 1902 1857 Chemistry Sodium (134 - 147 mEq/L) 134 134 Potassium (3.4 - 5.0 mEq/L) 4.1 3.6 Chloride (100 - 108 mEq/L) 105 109 H Carbon Dioxide (21 - 33 mEq/l) 24 21 Anion Gap (0 - 20) 9 8 BUN (7 - 25 mg/dL) 18 20 Creatinine (0.6 - 1.3 mg/dL) 0.9 1.0 Glomerular Filtr Rate (90 - 95) 99.6 H 87.8 L Glucose (77 - 141 mg/dL) 182 H 157 H POC Glucose (70 - 110 MG/DL) 221 H 170 H 157 H Calcium (8.0 - 10.5 mg/dL) 8.8 9.0 Ionized Calcium Ryley (1.09 - 1.30 MMOL/L) 1.09 Magnesium (1.6 - 2.6 mg/dL) 2.03 1.80 Hematology WBC (4.5 - 11.0 x10 3/uL) 9.4 RBC (4.00 - 5.60 x10 6/uL) 3.18 L Hgb (12.5 - 16.9 g/dL) 9.4 L Hct (37.5 - 50.7 %) 29.1 L MCV (81.0 - 99.0 fL) 91.5 MCH (27.0 - 33.0 pg) 29.6 MCHC (33.0 - 37.0 g/dL) 32.3 L RDW (11.5 - 14.5 %) 13.1 Plt Count (150 - 400 x10 3/uL) 239 MPV (7.0 - 9.0 fL) 10.7 H Neut % (Auto) (56.0 - 77.0 %) 73.4 Lymph % (Auto) (14.0 - 32.0 %) 14.7 [place] % (Auto) (4.8 - 9.0 %) 8.3 Eos % (Auto) (0.3 - 3.7 %) 2.5 Baso % (Auto) (0.0 - 2.0 %) 0.5 Neut # (Auto) (2.0 - 7.6 x10 3/uL) 6.86 Lymph # (Auto) (1.0 - 3.8 x10 3/uL) 1.38 [place] # (Auto) (0.1 - 0.8 x10 3/uL) 0.78 Eos # (Auto) (0.0 - 0.2 x10 3/uL) 0.23 H Baso # (Auto) (0.0 - 0.2 x10 3/uL) 0.05 Abs Immat Gran (auto) (0.00 - 0.03 0.06 H x10 3/uL) Immature Gran % (0.0 - 2.0 %) 0.6 Nucleated RBC % (0 - 0 %) 0.0 Nucleated RBCs # (Man) (0.0 - 0.1 0.00 x10 3/uL) 04/30 1632 Chemistry POC Glucose (70 - 110 MG/DL) 188 H Recent Impressions: RADIOLOGY - XR CHEST 1 V 05/01 0721 Report Impression - Status: SIGNED Entered: 05/01/2023 0835 IMPRESSION: 1. Expected post-CABG changes with mild central vascular congestion. Impression By: Christine Do M.D. Laboratory Tests: 04/30 04/30 04/30 04/29 0809 0221 0221 1932 Chemistry Sodium (134 - 147 mEq/L) 132 L Potassium (3.4 - 5.0 mEq/L) 4.2 Chloride (100 - 108 mEq/L) 105 Carbon Dioxide (21 - 33 mEq/l) 20 L Anion Gap (0 - 20) 11 BUN (7 - 25 mg/dL) 16 Creatinine (0.6 - 1.3 mg/dL) 0.9 Glomerular Filtr Rate (90 - 95) 99.6 H Glucose (77 - 141 mg/dL) 205 H POC Glucose (70 - 110 MG/DL) 181 H 267 H Calcium (8.0 - 10.5 mg/dL) 8.8 Ionized Calcium Ryley (1.09 - 1.30 MMOL/L) 1.05 L Magnesium (1.6 - 2.6 mg/dL) 1.87 Total Bilirubin (0.0 - 1.0 mg/dL) 0.40 Direct Bilirubin (0.1 - 0.3 MG/DL) 0.20 Indirect Bilirubin (MG/DL) 0.20 AST (8 - 34 IUnit/L) 23 ALT (10 - 49 IUnit/L) 19 Total Alk Phosphatase (20 - 125 IUnit/L) 62 Total Protein (6.4 - 8.2 g/dL) 6.5 Albumin (3.4 - 5.0 g/dL) 3.20 L Hematology WBC (4.5 - 11.0 x10 3/uL) 13.1 H RBC (4.00 - 5.60 x10 6/uL) 3.41 L Hgb (12.5 - 16.9 g/dL) 10.0 L Hct (37.5 - 50.7 %) 31.1 L MCV (81.0 - 99.0 fL) 91.2 MCH (27.0 - 33.0 pg) 29.3 MCHC (33.0 - 37.0 g/dL) 32.2 L RDW (11.5 - 14.5 %) 13.1 Plt Count (150 - 400 x10 3/uL) 249 MPV (7.0 - 9.0 fL) 10.8 H Neut % (Auto) (56.0 - 77.0 %) 78.3 H Lymph % (Auto) (14.0 - 32.0 %) 11.3 L [place] % (Auto) (4.8 - 9.0 %) 8.3 Eos % (Auto) (0.3 - 3.7 %) 1.3 Baso % (Auto) (0.0 - 2.0 %) 0.2 Neut # (Auto) (2.0 - 7.6 x10 3/uL) 10.28 H Lymph # (Auto) (1.0 - 3.8 x10 3/uL) 1.49 [place] # (Auto) (0.1 - 0.8 x10 3/uL) 1.09 H Eos # (Auto) (0.0 - 0.2 x10 3/uL) 0.17 Baso # (Auto) (0.0 - 0.2 x10 3/uL) 0.03 Abs Immat Gran (auto) (0.00 - 0.03 0.08 H x10 3/uL) Immature Gran % (0.0 - 2.0 %) 0.6 Nucleated RBC % (0 - 0 %) 0.0 Nucleated RBCs # (Man) (0.0 - 0.1 x10 3/uL) 0.00 04/29 04/29 1706 1413 Chemistry Sodium (134 - 147 mEq/L) 137 Potassium (3.4 - 5.0 mEq/L) 3.8 Chloride (100 - 108 mEq/L) 106 Carbon Dioxide (21 - 33 mEq/l) 21 Anion Gap (0 - 20) 14 BUN (7 - 25 mg/dL) 24 Creatinine (0.6 - 1.3 mg/dL) 1.0 Glomerular Filtr Rate (90 - 95) 87.8 L Glucose (77 - 141 mg/dL) 246 H POC Glucose (70 - 110 MG/DL) 216 H Calcium (8.0 - 10.5 mg/dL) 8.5 Phosphorus (2.5 - 4.9 MG/DL) 1.9 L Magnesium (1.6 - 2.6 mg/dL) 1.84 Recent Impressions: RADIOLOGY - XR CHEST 1 V 04/30 0746 Report Impression - Status: SIGNED Entered: 04/30/2023 0817 IMPRESSION: 1. Expected post-CABG changes with interval removal of the mediastinal drains. No pneumothorax. Impression By: Christine Do M.D. Laboratory Tests: 04/29 04/29 04/29 04/29 04/29 1706 1413 1207 1007 0802 Chemistry Sodium (134 - 147 mEq/L) 137 Potassium (3.4 - 5.0 mEq/L) 3.8 Chloride (100 - 108 mEq/L) 106 Carbon Dioxide (21 - 33 mEq/l) 21 Anion Gap (0 - 20) 14 BUN (7 - 25 mg/dL) 24 Creatinine (0.6 - 1.3 mg/dL) 1.0 Glomerular Filtr Rate (90 - 95) 87.8 L Glucose (77 - 141 mg/dL) 246 H POC Glucose (70 - 110 MG/DL) 216 H 171 H 186 H 184 H Calcium (8.0 - 10.5 mg/dL) 8.5 Phosphorus (2.5 - 4.9 MG/DL) 1.9 L Magnesium (1.6 - 2.6 mg/dL) 1.84 04/29 04/29 04/29 04/28 0624 0228 0026 2131 Chemistry Sodium (134 - 147 mEq/L) 135 Potassium (3.4 - 5.0 mEq/L) 4.2 Chloride (100 - 108 mEq/L) 108 Carbon Dioxide (21 - 33 mEq/l) 21 Anion Gap (0 - 20) 11 BUN (7 - 25 mg/dL) 24 Creatinine (0.6 - 1.3 mg/dL) 1.1 Glomerular Filtr Rate (90 - 95) 78.3 L Glucose (77 - 141 mg/dL) 241 H POC Glucose (70 - 110 MG/DL) 199 H 217 H 253 H Calcium (8.0 - 10.5 mg/dL) 8.9 Magnesium (1.6 - 2.6 mg/dL) 2.23 Total Bilirubin (0.0 - 1.0 mg/dL) 0.50 Direct Bilirubin (0.1 - 0.3 MG/DL) 0.30 Indirect Bilirubin (MG/DL) 0.20 AST (8 - 34 IUnit/L) 25 ALT (10 - 49 IUnit/L) 22 Total Alk Phosphatase (20 - 125 IUnit/L) 63 Total Protein (6.4 - 8.2 g/dL) 6.6 Albumin (3.4 - 5.0 g/dL) 3.50 Hematology WBC (4.5 - 11.0 x10 3/uL) 14.5 H RBC (4.00 - 5.60 x10 6/uL) 3.33 L Hgb (12.5 - 16.9 g/dL) 10.2 L Hct (37.5 - 50.7 %) 30.5 L MCV (81.0 - 99.0 fL) 91.6 MCH (27.0 - 33.0 pg) 30.6 MCHC (33.0 - 37.0 g/dL) 33.4 RDW (11.5 - 14.5 %) 13.1 Plt Count (150 - 400 x10 3/uL) 254 MPV (7.0 - 9.0 fL) 10.5 H Neut % (Auto) (56.0 - 77.0 %) 84.5 H Lymph % (Auto) (14.0 - 32.0 %) 6.5 L [place] % (Auto) (4.8 - 9.0 %) 8.1 Eos % (Auto) (0.3 - 3.7 %) 0.1 L Baso % (Auto) (0.0 - 2.0 %) 0.1 Neut # (Auto) (2.0 - 7.6 x10 3/uL) 12.28 H Lymph # (Auto) (1.0 - 3.8 x10 3/uL) 0.94 L [place] # (Auto) (0.1 - 0.8 x10 3/uL) 1.17 H Eos # (Auto) (0.0 - 0.2 x10 3/uL) 0.01 Baso # (Auto) (0.0 - 0.2 x10 3/uL) 0.01 Abs Immat Gran (auto) (0.00 - 0.03 x10 3/uL) 0.10 H Immature Gran % (0.0 - 2.0 %) 0.7 Nucleated RBC % (0 - 0 %) 0.0 Nucleated RBCs # (Man) (0.0 - 0.1 x10 3/uL) 0.00 Recent Impressions: RADIOLOGY - XR CHEST 1 V 04/29 654 Report Impression - Status: SIGNED Entered: 04/29/2023 0814 IMPRESSION: Signs of trace vascular congestion and central pulmonary edema. Suspect trace bilateral pleural effusions. Stable lines and tubes. Impression By: [email or web address] - Adilson Ordaz D.O. Laboratory Tests: 04/28 04/28 04/28 04/28 04/28 1449 1346 1054 0908 0626 Chemistry Sodium (134 - 147 mEq/L) 135 Potassium (3.4 - 5.0 mEq/L) 4.5 Chloride (100 - 108 mEq/L) 110 H Carbon Dioxide (21 - 33 mEq/l) 19 L Anion Gap (0 - 20) 10 BUN (7 - 25 mg/dL) 26 H Creatinine (0.6 - 1.3 mg/dL) 1.2 Glomerular Filtr Rate (90 - 95) 70.5 L Glucose (77 - 141 mg/dL) 186 H POC Glucose (70 - 110 MG/DL) 144 H 149 H 135 H 140 H Calcium (8.0 - 10.5 mg/dL) 8.7 Ionized Calcium Ryley (1.09 - 1.30 MMOL/L) 1.13 Magnesium (1.6 - 2.6 mg/dL) 2.19 04/28 04/28 04/28 04/27 0211 0201 0104 2233 Blood Gas Puncture Site Art Line Art Line O2 Saturation (90 - 100 %) 94.0 97.3 ABG pH (7.35 - 7.45) 7.365 7.359 ABG pCO2 (35.0 - 45 mmHg) 34.0 L 34.7 L ABG pO2 (80 - 100.0 mmHg) 73.3 L 96.9 ABG HCO3 (22.0 - 26.0 MMOL/L) 19.4 L 19.6 L ABG Total CO2 20.5 20.7 ABG Base Excess (-4.0 - 4.0 MMOL/L) -5.9 L -5.8 L ABG Hematocrit (37.5 - 50.7 %) 32 L 32 L ABG Hemoglobin (12.5 - 16.9 G/DL) 10.9 L 10.9 L Sodium (134 - 147 mmol/L) 140 140 Potassium (3.4 - 5.0 mmol/L) 4.7 4.8 Chloride (100 - 108 mmol/L) 110 H 110 H Ionized Calcium (1.12 - 1.32 MMOL/L) 1.24 1.20 Lactic Acid (0.9 - 1.7 mmol/l) 0.5 L 0.9 Temperature (F) 99 98.6 O2 Delivery Device Cannula Cannula Chemistry Sodium (134 - 147 mEq/L) 139 Potassium (3.4 - 5.0 mEq/L) 4.6 Chloride (100 - 108 mEq/L) 111 H Carbon Dioxide (21 - 33 mEq/l) 21 Anion Gap (0 - 20) 12 BUN (7 - 25 mg/dL) 25 Creatinine (0.6 - 1.3 mg/dL) 0.9 POC Creatinine (0.8 - 1.3 mg/dL) 0.8 1.0 Glomerular Filtr Rate (90 - 95) 99.6 H Glucose (77 - 141 mg/dL) 142 H POC Glucose (70 - 110 MG/DL) 121 H POC Glucose (mg/dL) (70 - 110 MG/DL) 138 H 150 H Calcium (8.0 - 10.5 mg/dL) 8.5 Magnesium (1.6 - 2.6 mg/dL) 1.84 Total Bilirubin (0.0 - 1.0 mg/dL) 0.40 Direct Bilirubin (0.1 - 0.3 MG/DL) 0.20 Indirect Bilirubin (MG/DL) 0.20 AST (8 - 34 IUnit/L) 42 H ALT (10 - 49 IUnit/L) 25 Total Alk Phosphatase (20 - 125 IUnit/L) 58 Total Protein (6.4 - 8.2 g/dL) 6.0 L Albumin (3.4 - 5.0 g/dL) 3.20 L Hematology WBC (4.5 - 11.0 x10 3/uL) 13.8 H RBC (4.00 - 5.60 x10 6/uL) 3.44 L Hgb (12.5 - 16.9 g/dL) 10.2 L Hct (37.5 - 50.7 %) 31.1 L MCV (81.0 - 99.0 fL) 90.4 MCH (27.0 - 33.0 pg) 29.7 MCHC (33.0 - 37.0 g/dL) 32.8 L RDW (11.5 - 14.5 %) 12.7 Plt Count (150 - 400 x10 3/uL) 260 MPV (7.0 - 9.0 fL) 10.0 H Neut % (Auto) (56.0 - 77.0 %) 88.7 H Lymph % (Auto) (14.0 - 32.0 %) 4.0 L [place] % (Auto) (4.8 - 9.0 %) 6.7 Eos % (Auto) (0.3 - 3.7 %) 0.0 L Baso % (Auto) (0.0 - 2.0 %) 0.1 Neut # (Auto) (2.0 - 7.6 x10 3/uL) 12.23 H Lymph # (Auto) (1.0 - 3.8 x10 3/uL) 0.55 L [place] # (Auto) (0.1 - 0.8 x10 3/uL) 0.92 H Eos # (Auto) (0.0 - 0.2 x10 3/uL) 0.00 Baso # (Auto) (0.0 - 0.2 x10 3/uL) 0.01 Abs Immat Gran (auto) (0.00 - 0.03 0.07 H x10 3/uL) Immature Gran % (0.0 - 2.0 %) 0.5 Nucleated RBC % (0 - 0 %) 0.0 Nucleated RBCs # (Man) (0.0 - 0.1 0.00 x10 3/uL) 04/275 2004 Chemistry POC Glucose (70 - 110 MG/DL) 145 H 157 H Recent Impressions: RADIOLOGY - XR CHEST 1 V 04/28 0518 Report Impression - Status: SIGNED Entered: 04/28/2023 0830 IMPRESSION: Lines and tubes, as detailed above. Pulmonary edema and small left pleural effusion again noted. Enlarged cardiomediastinal silhouette. Impression By: DR.SHEAL Janiya Jiménez M.D. RADIOLOGY - XR CHEST 1 V 04/28 1716 Report Impression - Status: SIGNED Entered: 04/28/2023 1759 IMPRESSION: Improved mild bilateral interstitial infiltrates. Trace effusions. Impression By: Zane Powers M.D. Laboratory Tests: 04/27 04/27 04/27 04/27 04/27 1424 1422 1348 1347 1235 Blood Gas O2 Saturation (90 - 100 %) 100.0 99.7 ABG pH (7.35 - 7.45) 7.380 7.257 *L ABG pCO2 (35.0 - 45 mmHg) 41.5 45.1 H ABG pO2 (80 - 100.0 mmHg) 381.1 *H 238.6 *H ABG HCO3 (22.0 - 26.0 MMOL/L) 24.6 20.1 L ABG Total CO2 25.8 21.5 ABG Base Excess (-4.0 - 4.0 -0.6 -6.8 L MMOL/L) ABG Hematocrit (37.5 - 50.7 %) 29 L 33 L ABG Hemoglobin (12.5 - 16.9 G/DL) 9.7 L 11.3 L Sodium (134 - 147 mmol/L) 140 139 Potassium (3.4 - 5.0 mmol/L) 5.6 H 4.1 Chloride (100 - 108 mmol/L) 108 108 Ionized Calcium (1.12 - 1.32 1.11 L 1.14 MMOL/L) Lactic Acid (0.9 - 1.7 mmol/l) < 0.3 L 0.3 L Chemistry POC Creatinine (0.8 - 1.3 mg/dL) 0.7 L 0.5 L POC Glucose (mg/dL) (70 - 110 155 H 165 H MG/DL) Coagulation Activated Coag Time (74 - 137 SEC) > 1000 H 677 H 152 H 04/27 04/27 04/27 04/27 0163 2281 0678 0322 Blood Gas O2 Saturation (90 - 100 %) 99.8 ABG pH (7.35 - 7.45) 7.331 L ABG pCO2 (35.0 - 45 mmHg) 32.2 L ABG pO2 (80 - 100.0 mmHg) 252.0 *H ABG HCO3 (22.0 - 26.0 MMOL/L) 17.0 *L ABG Total CO2 18.0 ABG Base Excess (-4.0 - 4.0 MMOL/L) -8.0 L ABG Hematocrit (37.5 - 50.7 %) 32 L ABG Hemoglobin (12.5 - 16.9 G/DL) 11.0 L Sodium (134 - 147 mmol/L) 143 Potassium (3.4 - 5.0 mmol/L) 3.5 Chloride (100 - 108 mmol/L) 113 H Ionized Calcium (1.12 - 1.32 MMOL/L) 1.09 L Lactic Acid (0.9 - 1.7 mmol/l) < 0.3 L Chemistry Sodium (134 - 147 mEq/L) 135 Potassium (3.4 - 5.0 mEq/L) 4.5 Chloride (100 - 108 mEq/L) 108 Carbon Dioxide (21 - 33 mEq/l) 23 Anion Gap (0 - 20) 8 BUN (7 - 25 mg/dL) 22 Creatinine (0.6 - 1.3 mg/dL) 0.9 POC Creatinine (0.8 - 1.3 mg/dL) 0.5 L Glomerular Filtr Rate (90 - 95) 99.6 H Glucose (77 - 141 mg/dL) 131 POC Glucose (70 - 110 MG/DL) 150 H POC Glucose (mg/dL) (70 - 110 MG/DL) 139 H Calcium (8.0 - 10.5 mg/dL) 9.2 Magnesium (1.6 - 2.6 mg/dL) 1.66 Coagulation INR (0.8 - 1.2) 1.5 H PTT ([place]) (25.0 - 39.5 Seconds) 32.7 PT Patient/Control Mix (9.3 - 12.9 SECONDS) 16.4 H Hematology WBC (4.5 - 11.0 x10 3/uL) 7.1 RBC (4.00 - 5.60 x10 6/uL) 4.00 Hgb (12.5 - 16.9 g/dL) 12.0 L Hct (37.5 - 50.7 %) 36.3 L MCV (81.0 - 99.0 fL) 90.8 MCH (27.0 - 33.0 pg) 30.0 MCHC (33.0 - 37.0 g/dL) 33.1 RDW (11.5 - 14.5 %) 12.3 Plt Count (150 - 400 x10 3/uL) 277 MPV (7.0 - 9.0 fL) 10.1 H Neut % (Auto) (56.0 - 77.0 %) 60.0 Lymph % (Auto) (14.0 - 32.0 %) 29.4 [place] % (Auto) (4.8 - 9.0 %) 7.5 Eos % (Auto) (0.3 - 3.7 %) 1.8 Baso % (Auto) (0.0 - 2.0 %) 0.7 Neut # (Auto) (2.0 - 7.6 x10 3/uL) 4.27 Lymph # (Auto) (1.0 - 3.8 x10 3/uL) 2.09 [place] # (Auto) (0.1 - 0.8 x10 3/uL) 0.53 Eos # (Auto) (0.0 - 0.2 x10 3/uL) 0.13 Baso # (Auto) (0.0 - 0.2 x10 3/uL) 0.05 Abs Immat Gran (auto) (0.00 - 0.03 0.04 H x10 3/uL) Immature Gran % (0.0 - 2.0 %) 0.6 Nucleated RBC % (0 - 0 %) 0.0 Nucleated RBCs # (Man) (0.0 - 0.1 x10 3/uL) 0.00 Serology SARS-CoV-2 Ag (Rapid) (Negative) Negative 04/26 1601 Chemistry POC Glucose (70 - 110 MG/DL) 175 H 164 H Microbiology: Date/Time Procedure - Status Source Growth 04/27 828 MSSA Surveillance Screen - RECD NASAL 04/27 828 MRSA DNA Surveillance Screen - RECD NASAL Laboratory Tests: 04/26 04/26 04/26 04/25 1123 0714 2105 2 Chemistry Sodium (134 - 147 mEq/L) 137 Potassium (3.4 - 5.0 mEq/L) 4.6 Chloride (100 - 108 mEq/L) 107 Carbon Dioxide (21 - 33 mEq/l) 23 Anion Gap (0 - 20) 12 BUN (7 - 25 mg/dL) 28 H Creatinine (0.6 - 1.3 mg/dL) 1.0 Glomerular Filtr Rate (90 - 95) 87.8 L Glucose (77 - 141 mg/dL) 137 POC Glucose (70 - 110 MG/DL) 192 H 137 H 214 H Calcium (8.0 - 10.5 mg/dL) 9.2 Magnesium (1.6 - 2.6 mg/dL) 1.64 Hematology WBC (4.5 - 11.0 x10 3/uL) 7.5 RBC (4.00 - 5.60 x10 6/uL) 3.95 L Hgb (12.5 - 16.9 g/dL) 11.9 L Hct (37.5 - 50.7 %) 35.8 L MCV (81.0 - 99.0 fL) 90.6 MCH (27.0 - 33.0 pg) 30.1 MCHC (33.0 - 37.0 g/dL) 33.2 RDW (11.5 - 14.5 %) 12.4 Plt Count (150 - 400 x10 3/uL) 289 MPV (7.0 - 9.0 fL) 10.2 H Neut % (Auto) (56.0 - 77.0 %) 58.7 Lymph % (Auto) (14.0 - 32.0 %) 30.8 [place] % (Auto) (4.8 - 9.0 %) 7.8 Eos % (Auto) (0.3 - 3.7 %) 1.7 Baso % (Auto) (0.0 - 2.0 %) 0.5 Neut # (Auto) (2.0 - 7.6 x10 3/uL) 4.38 Lymph # (Auto) (1.0 - 3.8 x10 3/uL) 2.30 [place] # (Auto) (0.1 - 0.8 x10 3/uL) 0.58 Eos # (Auto) (0.0 - 0.2 x10 3/uL) 0.13 Baso # (Auto) (0.0 - 0.2 x10 3/uL) 0.04 Abs Immat Gran (auto) (0.00 - 0.03 x10 3/uL) 0.04 H Immature Gran % (0.0 - 2.0 %) 0.5 Nucleated RBC % (0 - 0 %) 0.0 Nucleated RBCs # (Man) (0.0 - 0.1 x10 3/uL) 0.00 Laboratory Tests: 04/25 04/25 04/25 04/24 1126 0772 022 2002 Chemistry Sodium (134 - 147 mEq/L) 134 Potassium (3.4 - 5.0 mEq/L) 4.2 Chloride (100 - 108 mEq/L) 105 Carbon Dioxide (21 - 33 mEq/l) 23 Anion Gap (0 - 20) 11 BUN (7 - 25 mg/dL) 26 H Creatinine (0.6 - 1.3 mg/dL) 1.0 Glomerular Filtr Rate (90 - 95) 87.8 L Glucose (77 - 141 mg/dL) 168 H POC Glucose (70 - 110 MG/DL) 214 H 158 H 347 H Calcium (8.0 - 10.5 mg/dL) 9.2 Magnesium (1.6 - 2.6 mg/dL) 1.60 Hematology WBC (4.5 - 11.0 x10 3/uL) 11.9 H RBC (4.00 - 5.60 x10 6/uL) 3.89 L Hgb (12.5 - 16.9 g/dL) 11.6 L Hct (37.5 - 50.7 %) 34.7 L MCV (81.0 - 99.0 fL) 89.2 MCH (27.0 - 33.0 pg) 29.8 MCHC (33.0 - 37.0 g/dL) 33.4 RDW (11.5 - 14.5 %) 12.5 Plt Count (150 - 400 x10 3/uL) 316 MPV (7.0 - 9.0 fL) 10.5 H Neut % (Auto) (56.0 - 77.0 %) 80.7 H Lymph % (Auto) (14.0 - 32.0 %) 11.5 L [place] % (Auto) (4.8 - 9.0 %) 6.9 Eos % (Auto) (0.3 - 3.7 %) 0.2 L Baso % (Auto) (0.0 - 2.0 %) 0.2 Neut # (Auto) (2.0 - 7.6 x10 3/uL) 9.65 H Lymph # (Auto) (1.0 - 3.8 x10 3/uL) 1.37 [place] # (Auto) (0.1 - 0.8 x10 3/uL) 0.82 H Eos # (Auto) (0.0 - 0.2 x10 3/uL) 0.02 Baso # (Auto) (0.0 - 0.2 x10 3/uL) 0.02 Abs Immat Gran (auto) (0.00 - 0.03 x10 3/uL) 0.06 H Add Manual Diff NO Immature Gran % (0.0 - 2.0 %) 0.5 Nucleated RBC % (0 - 0 %) 0.0 Nucleated RBCs # (Man) (0.0 - 0.1 x10 3/uL) 0.00 Laboratory Tests: 04/24 04/24 04/24 04/24 04/24 1532 1108 1013 0645 0301 Chemistry Sodium (134 - 147 mEq/L) 135 Potassium (3.4 - 5.0 mEq/L) 4.3 Chloride (100 - 108 mEq/L) 106 Carbon Dioxide (21 - 33 mEq/l) 21 Anion Gap (0 - 20) 13 BUN (7 - 25 mg/dL) 18 Creatinine (0.6 - 1.3 mg/dL) 0.9 Glomerular Filtr Rate (90 - 95) 99.6 H Glucose (77 - 141 mg/dL) 113 POC Glucose (70 - 110 MG/DL) 310 H 176 H 149 H 141 H Calcium (8.0 - 10.5 mg/dL) 9.2 Magnesium (1.6 - 2.6 mg/dL) 1.68 Hematology WBC (4.5 - 11.0 x10 3/uL) 7.8 RBC (4.00 - 5.60 x10 6/uL) 3.93 L Hgb (12.5 - 16.9 g/dL) 11.7 L Hct (37.5 - 50.7 %) 35.6 L MCV (81.0 - 99.0 fL) 90.6 MCH (27.0 - 33.0 pg) 29.8 MCHC (33.0 - 37.0 g/dL) 32.9 L RDW (11.5 - 14.5 %) 12.3 Plt Count (150 - 400 x10 3/uL) 278 MPV (7.0 - 9.0 fL) 10.0 H Neut % (Auto) (56.0 - 77.0 %) 68.0 Lymph % (Auto) (14.0 - 32.0 %) 21.2 [place] % (Auto) (4.8 - 9.0 %) 7.9 Eos % (Auto) (0.3 - 3.7 %) 1.9 Baso % (Auto) (0.0 - 2.0 %) 0.4 Neut # (Auto) (2.0 - 7.6 x10 3/uL) 5.28 Lymph # (Auto) (1.0 - 3.8 x10 3/uL) 1.65 [place] # (Auto) (0.1 - 0.8 x10 3/uL) 0.61 Eos # (Auto) (0.0 - 0.2 x10 3/uL) 0.15 Baso # (Auto) (0.0 - 0.2 x10 3/uL) 0.03 Abs Immat Gran (auto) (0.00 - 0.03 0.05 H x10 3/uL) Immature Gran % (0.0 - 2.0 %) 0.6 Nucleated RBC % (0 - 0 %) 0.0 Nucleated RBCs # (Man) (0.0 - 0.1 0.00 x10 3/uL) 04/23 2019 Chemistry POC Glucose (70 - 110 MG/DL) 276 H Microbiology: Date/Time Procedure - Status Source Growth 04/24 1000 Tissue Culture - RES TISSUE 04/24 1000 Anaerobic Culture - RES TISSUE 04/24 1000 Gram Stain - RES TISSUE Laboratory Tests: 04/23 04/23 04/23 04/23 04/23 1550 1110 0703 0330 0330 Chemistry Sodium (134 - 147 mEq/L) 137 Potassium (3.4 - 5.0 mEq/L) 3.9 Chloride (100 - 108 mEq/L) 105 Carbon Dioxide (21 - 33 mEq/l) 22 Anion Gap (0 - 20) 14 BUN (7 - 25 mg/dL) 25 Creatinine (0.6 - 1.3 mg/dL) 1.1 Glomerular Filtr Rate (90 - 95) 78.3 L Glucose (77 - 141 mg/dL) 131 POC Glucose (70 - 110 MG/DL) 265 H 284 H 143 H Calcium (8.0 - 10.5 mg/dL) 9.4 Magnesium (1.6 - 2.6 mg/dL) 1.72 Hematology WBC (4.5 - 11.0 x10 3/uL) 10.1 RBC (4.00 - 5.60 x10 6/uL) 4.24 Hgb (12.5 - 16.9 g/dL) 12.7 Hct (37.5 - 50.7 %) 38.4 MCV (81.0 - 99.0 fL) 90.6 MCH (27.0 - 33.0 pg) 30.0 MCHC (33.0 - 37.0 g/dL) 33.1 RDW (11.5 - 14.5 %) 12.3 Plt Count (150 - 400 x10 3/uL) 332 MPV (7.0 - 9.0 fL) 10.3 H Neut % (Auto) (56.0 - 77.0 %) 71.8 Lymph % (Auto) (14.0 - 32.0 %) 18.0 [place] % (Auto) (4.8 - 9.0 %) 8.4 Eos % (Auto) (0.3 - 3.7 %) 0.8 Baso % (Auto) (0.0 - 2.0 %) 0.4 Neut # (Auto) (2.0 - 7.6 x10 3/uL) 7.28 Lymph # (Auto) (1.0 - 3.8 x10 3/uL) 1.82 [place] # (Auto) (0.1 - 0.8 x10 3/uL) 0.85 H Eos # (Auto) (0.0 - 0.2 x10 3/uL) 0.08 Baso # (Auto) (0.0 - 0.2 x10 3/uL) 0.04 Abs Immat Gran (auto) (0.00 - 0.03 0.06 H x10 3/uL) Immature Gran % (0.0 - 2.0 %) 0.6 Nucleated RBC % (0 - 0 %) 0.0 Nucleated RBCs # (Man) (0.0 - 0.1 0.00 x10 3/uL) 04/232 1 Chemistry POC Glucose (70 - 110 MG/DL) 197 H Toxicology Vancomycin Trough (10.0 - 20.0 mcg/mL) 12.1 Recent Impressions: MAGNETIC RESONANCE IMAGING - MRI LOW EXT W/O CONT LT 04/23 1034 Report Impression - Status: SIGNED Entered: 04/23/2023 1207 IMPRESSION: 5th MTP effusion/possible septic arthritis with osteomyelitis changes as detailed. No drainable soft tissue abscess. Impression By: [email or web address] - Aaron Lemuel Goldberg M.D. Laboratory Tests: 04/221 7 1555 Chemistry Sodium (134 - 147 mEq/L) 139 Potassium (3.4 - 5.0 mEq/L) 4.3 Chloride (100 - 108 mEq/L) 108 Carbon Dioxide (21 - 33 mEq/l) 22 Anion Gap (0 - 20) 14 BUN (7 - 25 mg/dL) 17 Creatinine (0.6 - 1.3 mg/dL) 0.9 Glomerular Filtr Rate (90 - 95) 99.6 H Glucose (77 - 141 mg/dL) 124 POC Glucose (70 - 110 MG/DL) 232 H 133 H Calcium (8.0 - 10.5 mg/dL) 9.0 Hematology WBC (4.5 - 11.0 x10 3/uL) 8.6 RBC (4.00 - 5.60 x10 6/uL) 3.89 L Hgb (12.5 - 16.9 g/dL) 11.5 L Hct (37.5 - 50.7 %) 36.2 L MCV (81.0 - 99.0 fL) 93.1 MCH (27.0 - 33.0 pg) 29.6 MCHC (33.0 - 37.0 g/dL) 31.8 L RDW (11.5 - 14.5 %) 12.5 Plt Count (150 - 400 x10 3/uL) 301 MPV (7.0 - 9.0 fL) 10.1 H Neut % (Auto) (56.0 - 77.0 %) 66.1 Lymph % (Auto) (14.0 - 32.0 %) 23.5 [place] % (Auto) (4.8 - 9.0 %) 7.4 Eos % (Auto) (0.3 - 3.7 %) 2.0 Baso % (Auto) (0.0 - 2.0 %) 0.6 Neut # (Auto) (2.0 - 7.6 x10 3/uL) 5.66 Lymph # (Auto) (1.0 - 3.8 x10 3/uL) 2.01 [place] # (Auto) (0.1 - 0.8 x10 3/uL) 0.63 Eos # (Auto) (0.0 - 0.2 x10 3/uL) 0.17 Baso # (Auto) (0.0 - 0.2 x10 3/uL) 0.05 Abs Immat Gran (auto) (0.00 - 0.03 x10 3/uL) 0.03 Immature Gran % (0.0 - 2.0 %) 0.4 Nucleated RBC % (0 - 0 %) 0.0 Nucleated RBCs # (Man) (0.0 - 0.1 x10 3/uL) 0.00 Microbiology: Date/Time Procedure - Status Source Growth 04/21 1535 Blood Culture - RECD BLOOD 04/21 1535 Blood Culture Gram Stain - RECD BLOOD 04/21 1535 Blood Culture - RECD BLOOD 04/21 1535 Blood Culture Gram Stain - RECD BLOOD Recent Impressions: RADIOLOGY - XR FOOT 3 + V LT 04/21 1423 Report Impression - Status: SIGNED Entered: 04/21/2023 1438 IMPRESSION: Interval progression of osteomyelitis involving the fifth metatarsal head and fifth proximal phalanx base about the MTP joint since the prior study from 04/16/2023. Impression By: [email or web address] Janiya Elizabeth M.D. Laboratory Tests: 04/21 04/21 04/21 04/21 1128 0931 0534 0132 Chemistry Sodium (134 - 147 mEq/L) 137 Potassium (3.4 - 5.0 mEq/L) 4.0 Chloride (100 - 108 mEq/L) 105 Carbon Dioxide (21 - 33 mEq/l) 24 Anion Gap (0 - 20) 12 BUN (7 - 25 mg/dL) 18 Creatinine (0.6 - 1.3 mg/dL) 1.1 Glomerular Filtr Rate (90 - 95) 78.3 L Glucose (77 - 141 mg/dL) 181 H POC Glucose (70 - 110 MG/DL) 172 H Calcium (8.0 - 10.5 mg/dL) 9.3 Magnesium (1.6 - 2.6 mg/dL) 1.61 C-Reactive Protein (<10.0 mg/L) 25.0 H Hematology WBC (4.5 - 11.0 x10 3/uL) 7.0 RBC (4.00 - 5.60 x10 6/uL) 4.05 Hgb (12.5 - 16.9 g/dL) 12.0 L Hct (37.5 - 50.7 %) 36.5 L MCV (81.0 - 99.0 fL) 90.1 MCH (27.0 - 33.0 pg) 29.6 MCHC (33.0 - 37.0 g/dL) 32.9 L RDW (11.5 - 14.5 %) 12.0 Plt Count (150 - 400 x10 3/uL) 305 MPV (7.0 - 9.0 fL) 10.5 H Neut % (Auto) (56.0 - 77.0 %) 61.3 Lymph % (Auto) (14.0 - 32.0 %) 27.0 [place] % (Auto) (4.8 - 9.0 %) 8.9 Eos % (Auto) (0.3 - 3.7 %) 1.7 Baso % (Auto) (0.0 - 2.0 %) 0.7 Neut # (Auto) (2.0 - 7.6 x10 3/uL) 4.28 Lymph # (Auto) (1.0 - 3.8 x10 3/uL) 1.89 [place] # (Auto) (0.1 - 0.8 x10 3/uL) 0.62 Eos # (Auto) (0.0 - 0.2 x10 3/uL) 0.12 Baso # (Auto) (0.0 - 0.2 x10 3/uL) 0.05 Abs Immat Gran (auto) (0.00 - 0.03 x10 3/uL) 0.03 Immature Gran % (0.0 - 2.0 %) 0.4 Nucleated RBC % (0 - 0 %) 0.0 Nucleated RBCs # (Man) (0.0 - 0.1 x10 3/uL) 0.00 ESR Westergren (0 - 15 mm/hr) 87 H Urines Urine Color (YEL/STRAW) YELLOW Urine Appearance (CLEAR) CLEAR Urine pH (5.0 - 7.0) 5.0 Ur Specific [place] (1.005 - 1.030) 1.011 Urine Protein (NEGATIVE) NEGATIVE Urine Glucose (UA) (NEGATIVE) 3+ H Urine Ketones (NEGATIVE) NEGATIVE Urine Blood (NEGATIVE) NEGATIVE Urine Nitrite (NEGATIVE) NEGATIVE Urine Bilirubin (NEGATIVE) NEGATIVE Urine Urobilinogen (0.2 - 1.0 mg/dL) 0.2 Ur Leukocyte Esterase (NEGATIVE) NEGATIVE Urine RBC (0 - 3 RBC/HPF) 0-3 Urine WBC (0 - 3 WBC/HPF) 0-3 Ur Squamous Epith Cells (NONE SEEN /HPF) 0-5 Ur Transition Epith Cell (NONE SEEN /HPF) TRACE Urine Bacteria (NONE SEEN /HPF) TRACE Urine Mucus (NONE SEEN /LPF) TRACE 04/20 Chemistry POC Glucose (70 - 110 MG/DL) 325 H Coagulation INR (0.8 - 1.2) 1.3 H PTT ([place]) (25.0 - 39.5 Seconds) 39.3 PT Patient/Control Mix (9.3 - 12.9 SECONDS) 14.5 H Microbiology: Date/Time Procedure - Status Source Growth 04/21 153 Blood Culture - RECD BLOOD 04/21 1535 Blood Culture Gram Stain - RECD BLOOD 04/21 1535 Blood Culture - RECD BLOOD 04/21 1535 Blood Culture Gram Stain - RECD BLOOD Recent Impressions: RADIOLOGY - XR FOOT 3 + V LT 04/21 1423 Report Impression - Status: SIGNED Entered: 04/21/2023 1438 IMPRESSION: Interval progression of osteomyelitis involving the fifth metatarsal head and fifth proximal phalanx base about the MTP joint since the prior study from 04/16/2023. Impression By: [email or web address] - Brett Elizabeth M.D. 1. 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 2. Coronary artery disease. 6 3. S/P CABG 4. Ex-smoker 5.Left foot wound 6.Hypertension. 7. Hyperlipidemia Blood sugar 233-211 mg/dL. HbA1c 8.3%. Lipids elevated.This Adjust insulin dose. Diabetes dietary education. at 1652 RPT #:[id number] END OF REPORT [facility] 2023-05-04 13:59:00 [facility] ([facility]) Cardiology Progress Note REPORT#:[id number] REPORT STATUS: Signed REPORT INITIALIZATION DATE:05/04/23 TIME: 135 PATIENT: JONG RIVAS UNIT #: [id number] ROOM/BED: [place] [id number] : 66 AGE: 58 SEX: M ATTEND: Domenic Rainey MD ADM AUTHOR: Noemí Nieto MD REPT SERVICE DT/TIME: 05/04/23 1359 * ALL edits or amendments must be made on the electronic/computer document * Objective General VS/I O: 24 hour I O ending at 0700: 05/04 0700 05/03 1900 Intake Total 1400 1160 Output Total 1625 1600 Balance -225 -440 Intake, Oral 1400 1160 Intake, Oral 0 Supplement Number Voids 3 Output, Urine 1625 1600 Patient 106 kg Weight Weight Standing scale Measurement Method Vital Signs: Date Time Temp Pulse Resp B/P B/P Pulse O2 O2 Flow FiO2 Mean Ox Delivery Rate 05/04 1158 98.1 73 25 129/67 0.0 98 05/04 0628 97.5 80 29 128/77 0.0 97 05/04 0301 98.2 72 18 123/67 0.0 95 Room air 05/03 2333 97.9 85 15 139/79 0.0 95 Room air 05/03 1829 98.6 76 15 131/73 0.0 95 Room air 05/03 1615 82 19 129/76 97 98 05/03 1600 80 24 134/72 97 98 05/03 1500 82 21 136/78 102 98 PATIENT WEIGHT: Weight (lb): 233 Weight (oz): 11.04 Weight (kg): 106.000 Medications: Active Meds + DC'd Last 24 Hrs Ciprofloxacin HCl (CIPRO) 500 MG ONCE ONE PO (DC) Oxycodone HCl (ROXICODONE) 5 MG Q6H PRN PRN PO Furosemide (LASIX 40 mg/4 mL INJECTION) 40 MG ONCE ONE IV (DC) Furosemide (LASIX 40 mg/4 mL INJECTION) 40 MG DAILY IV Insulin Glargine (Semglee) 20 UNIT BEDTIME SUBQ Insulin Human Lispro (HUMALOG) 7 UNIT AC SUBQ Ipratropium [place] (ATROVENT) 500 MCG RTQ2H PRN PRN INH Cyanocobalamin (Vitamin B-12 500 mcg tab) 500 MCG DAILY PO Ferrous Sulfate (FERROUS SULFATE) 325 MG DAILY PO Mupirocin (BACTROBAN 2% 22 GM OINTMENT) 1 APPLIC BID NASAL Doxycycline Monohydrate (DOXYCYCLINE MONOHYDRATE) 100 MG Q12HR PO Insulin Human Lispro (HUMALOG) 0 AC HS SUBQ Bisacodyl (DULCOLAX) 10 MG ONCE PRN RECTAL Magnesium Hydroxide (MILK OF MAGNESIA) 30 ML ONCE PRN PO Atorvastatin Calcium (LIPITOR) 40 MG 2100 PO Dextrose/Water (DEXTROSE 10% IN WATER) 250 ML ASDIR PRN IV (CKD) Insulin Human Regular (HumuLIN R) 100 UNIT ASDIR IV (CKD) Sodium Chloride (SODIUM CHLORIDE 0.9%) 99 ML Benzonatate (TESSALON PERLE) 200 MG Q8H PRN PRN PO Piperacillin Sod/Tazobactam Sod (ZOSYN 3.375GM) 3.375 GM Q8H IV Sodium Chloride (SODIUM CHLORIDE 0.9% 100 ML) 100 ML Clopidogrel Bisulfate (Plavix) 75 MG DAILY PO Polyethylene Glycol (MIRALAX) 17 GM DAILY PO Docusate Sodium (COLACE) 100 MG BID PO Metoprolol Tartrate (LOPRESSOR) 12.5 MG Q12HR PO Sennosides (Senna Lax 8.6 MG TABLET) 17.2 MG BEDTIME PO Aspirin (ASPIRIN) 81 MG DAILY PO Pantoprazole (PROTONIX) 40 MG DAILY@0600 PO Amiodarone HCl (CORDARONE) 200 MG TID PO (DC) Acetaminophen (TYLENOL) 650 MG Q4H PRN PRN PO Acetaminophen (TYLENOL) 650 MG Q4H PRN PRN RECTAL Calcium Chloride (CALCIUM CHLORIDE) 1 GM ASDIR PRN IV Dextrose/Water (DEXTROSE 10% IN WATER) 125 ML ASDIR PRN IV (CKD) Dextrose/Water (DEXTROSE 10% IN WATER) 250 ML ASDIR PRN IV (CKD) Epinephrine (ADRENALIN CHLORIDE) 4 MG ASDIR IV Dextrose/Water (DEXTROSE 5% WATER) 246 ML Glucagon (GLUCAGON) 1 MG ASDIR PRN IM Magnesium Sulfate (MAGNESIUM SULFATE 4GM/SWFI 100ML) 100 ML ASDIR PRN IV Magnesium Sulfate (MAGNESIUM SULFATE 2GM/SWFI 50ML) 50 ML ASDIR PRN IV Magnesium Sulfate/Dextrose (MAGNESIUM SULFATE 1GM/D5W 100ML) 100 ML ASDIR PRN IV Nitroglycerin/Dextrose (NITROGLYCERIN 50,000MCG/D5W 250ML) 250 ML ASDIR IV Norepinephrine Bitartrate (NOREPINEPHRINE 8 MG/NS 250 ML) 250 ML TITRATE IV Ondansetron HCl (ZOFRAN) 4 MG Q6H PRN PRN IV Potassium Chloride (KCL 20MEQ/SWFI 100ML) 100 ML ASDIR PRN IV Sodium Bicarbonate (SODIUM BICARBONATE) 50 MEQ ASDIR PRN IV Silver Sulfadiazine (SILVADENE 1% 50 GM CREAM) 1 APPLIC Q12HR TOPICAL Gabapentin (NEURONTIN) 200 MG TID PO Results Findings/Data: Laboratory Tests 05/04 05/04 05/04 05/03 05/03 1157 0759 0328 2058 1546 Chemistry Sodium (134 - 147 mEq/L) 137 Potassium (3.4 - 5.0 mEq/L) 3.6 Chloride (100 - 108 mEq/L) 102 Carbon Dioxide (21 - 33 mEq/l) 28 Anion Gap (0 - 20) 10 BUN (7 - 25 mg/dL) 21 Creatinine (0.6 - 1.3 mg/dL) 1.1 Glomerular Filtr Rate (90 - 95) 78.3 L Glucose (77 - 141 mg/dL) 306 H POC Glucose (70 - 110 MG/DL) 218 H 233 H 211 H 185 H Calcium (8.0 - 10.5 mg/dL) 8.5 Magnesium (1.6 - 2.6 mg/dL) 1.52 L Laboratory Tests 05/04 0328 Hematology WBC (4.5 - 11.0 x10 3/uL) 8.2 RBC (4.00 - 5.60 x10 6/uL) 3.05 L Hgb (12.5 - 16.9 g/dL) 9.1 L Hct (37.5 - 50.7 %) 28.3 L MCV (81.0 - 99.0 fL) 92.8 MCH (27.0 - 33.0 pg) 29.8 MCHC (33.0 - 37.0 g/dL) 32.2 L RDW (11.5 - 14.5 %) 13.2 Plt Count (150 - 400 x10 3/uL) 273 MPV (7.0 - 9.0 fL) 10.7 H Neut % (Auto) (56.0 - 77.0 %) 69.6 Lymph % (Auto) (14.0 - 32.0 %) 18.2 [place] % (Auto) (4.8 - 9.0 %) 8.4 Eos % (Auto) (0.3 - 3.7 %) 2.9 Baso % (Auto) (0.0 - 2.0 %) 0.5 Neut # (Auto) (2.0 - 7.6 x10 3/uL) 5.73 Lymph # (Auto) (1.0 - 3.8 x10 3/uL) 1.50 [place] # (Auto) (0.1 - 0.8 x10 3/uL) 0.69 Eos # (Auto) (0.0 - 0.2 x10 3/uL) 0.24 H Baso # (Auto) (0.0 - 0.2 x10 3/uL) 0.04 Abs Immat Gran (auto) (0.00 - 0.03 x10 3/uL) 0.03 Immature Gran % (0.0 - 2.0 %) 0.4 Nucleated RBC % (0 - 0 %) 0.0 Nucleated RBCs # (Man) (0.0 - 0.1 x10 3/uL) 0.00 Laboratory Tests 05/04 0328 Chemistry Magnesium (1.6 - 2.6 mg/dL) 1.52 L Radiology data: Recent Impressions: RADIOLOGY - XR CHEST 1 V 05/04 0520 Report Impression - Status: SIGNED Entered: 05/04/2023 46 IMPRESSION: Single AP view of the chest is provided. Support lines and tubes are unchanged. Perihilar alveolar opacities have diminished. There is no pneumothorax. No additional interval change. Impression By: [email or web address] - Oziel Bro M.D. Free Text Obj Notes Free Text Obj Notes: GENERAL: Sitting in bedside chair, HEENT: Normocephalic, atraumatic NECK: JVP is raised LUNGS: Equal air entry bilaterally, normal vesicular breathing HEART: regular rate, normal S1 and S2, No murmurs, ABDOMEN: Soft, lax, non-tender, non-distended PERIPHERAL PULSES: 2+ dorsalis pedis pulses, left foot covered with dressing EXTREMITIES: +1 edema Diagnosis, Assessment Plan Consultants: cardiology, cardiovascular surgery, pulmonary Free Text DxA P Notes Free Text DxA P Notes: #NSTEMI #Severe multivessel CAD s/p CABG x6 with RICHARDS to LAD, sequential diagonal, SVG to ramus, SVG to OM, SVG to PDA, SVG to RPL, and amputation of the left atrial appendage. #Left foot diabetic foot infection with osteomyelitis S/P successful left foot fifth proximal phalanx and fifth metatarsal head resection on 04/25- on IV antibiotics per ID #Urinary tract infection #Hyperlipidemia #Diabetes mellitus-A1c 8.3 #Essential hypertension #Right lung cavitary lesion PLAN: -CABG work-up per CT surgery versus high risk PCI. -We will get arterial Doppler bilateral lower extremities to evaluate for PAD given left diabetic foot infection. -IV antibiotics per ID -Continue aspirin 81 mg daily. Increase atorvastatin from 40 mg to 80 mg nightly. Start metoprolol tartrate 12.5 mg twice daily. -Continue lisinopril 10 mg daily. 04/21/2023 -Patient seen and examined. Telemetry reviewed. Remains in sinus rhythm. Arterial duplex yesterday showed no evidence of any hemodynamically significant stenosis in the bilateral lower extremity arteries. LDL 92 mg/dL. Atorvastatin increased to 80 mg nightly yesterday. Continue aspirin 81 mg daily, lisinopril 10 mg daily, metoprolol tartrate 12.5 mg twice daily. ID on board for osteomyelitis. CT surgery on board for consideration of CABG. Timing will depend on treatment of foot infection. 04/22/2023: -Patient seen and examined. Telemetry reviewed. Remains in normal sinus rhythm. Increase metoprolol to tartrate to 25 mg twice daily. ID on board for osteomyelitis. Plan for CABG per CT surgery when medically stable and infection improved/resolved. Continue aspirin, high intensity atorvastatin, and lisinopril 10 mg daily. 04/25/2023: -Patient seen and examined. Telemetry reviewed. Remains in normal sinus rhythm. Underwent successful left foot fifth proximal phalanx and fifth metatarsal head resection yesterday. 6 weeks of IV antibiotic treatment plan per ID for osteomyelitis. Planning for CABG per CT surgery. No chest pain or shortness of breath currently. Continue aspirin 81 mg daily, atorvastatin 80 mg nightly, lisinopril 10 mg daily, and metoprolol tartrate 25 mg p.o. every 12 hourly. 04/26/2023: -Patient seen and examined. Telemetry reviewed. Remains in normal sinus rhythm. Plan for CABG likely next week per CT surgery. On IV antibiotics per ID. Denies any chest pain or shortness of breath. Continue aspirin 81 mg daily, atorvastatin 80 mg nightly, lisinopril 10 mg daily, and metoprolol tartrate 25 mg p.o. every 12 hourly. 04/27/2023: Patient seen and examined. Telemetry reviewed. In sinus rhythm. Plan for CABG next week per CT surgery. On IV cefepime and Flagyl per ID. Continue aspirin 81 mg daily, atorvastatin 80 mg nightly, lisinopril 10 mg daily, and metoprolol tartrate 25 mg p.o. every 12 hourly. 04/28/2023-postoperative day 1: -Patient seen and examined in CVICU. Telemetry reviewed. Remains in sinus rhythm. Underwent successful CABG x6 yesterday and amputation of left atrial appendage. Extubated successfully. Currently off pressors. Has a mediastinal and left chest tube with minimal output this morning. Not on any pressors. Advanced heart failure team consulted. Continue aspirin 81 mg daily, Plavix 75 mg daily, metoprolol tartrate 12.5 mg every 12 hourly, high intensity atorvastatin, and amiodarone 200 mg 3 times daily. 04/29/2023-postoperative day 2: -Patient seen and examined. Telemetry reviewed. Remains in sinus rhythm with occasional epicardial pacing noted yesterday evening. Appears volume overloaded today. Ported shortness of breath overnight. We will give Lasix 40 mg IV once. Advanced heart failure team on board. Continue aspirin 81 mg daily, Plavix 75 mg daily, metoprolol tartrate 12.5 mg every 12 hourly, high intensity atorvastatin and amiodarone 200 mg 3 times daily. 05/02/2023-Postoperative day 5: -Patient seen and examined. Telemetry reviewed. Remains in sinus rhythm. Chest tubes removed over the weekend. Epicardial pacing wires removed today. On IV antibiotics per ID. Continue aspirin 81 mg daily, Plavix 75 mg daily, metoprolol tartrate 12.5 mg every 12 hourly, high intensity atorvastatin and amiodarone 200 mg 3 times daily. Switch amiodarone to 200 mg once a day upon discharge. 05/03/2023-postoperative day 6: -Patient seen and examined. Telemetry reviewed. In sinus rhythm. Epicardial pacing wires removed and echocardiogram showed no pericardial effusion with normal EF. Appears volume overloaded. Diuresis per advanced heart failure team. Continue aspirin 81 mg daily, Plavix 75 mg daily, metoprolol tartrate 12.5 mg every 12 hourly, high intensity atorvastatin and amiodarone 200 mg 3 times daily. Switch amiodarone to 200 mg once a day upon discharge. 05/04/2023-postoperative day 7: -Patient seen and examined. Telemetry reviewed. In sinus rhythm. Amiodarone discontinued as patient initiated on IV ciprofloxacin due to concern for QT prolongation. Patient received a dose of IV ciprofloxacin and corrected QT on my calculation is 510 ms. We will keep him in-house today. We will continue ciprofloxacin for tonight and tomorrow followed by EKGs. Reassess tomorrow if he can be safely discharged on ciprofloxacin. Otherwise, ID will consider alternative IV antibiotic. Continue aspirin 81 mg daily, Plavix 75 mg daily, metoprolol tartrate 12.5 mg p.o. every 12 hourly and high intensity statin. at 1412 at 0310 [facility] #:[id number] END OF REPORT [facility] 2023-05-04 13:58:00 [id number] [address] PATIENT NAME: JONG RIVAS ADMIT DATE: 04/19/23 ACCOUNT NO: [id number] ROOM NO: [id number] AGE: 58 REPORT TYPE: eELECTROCARDIOGRAM REPORT SEX: M ADMITTING PHYSICIAN:Domenic Rainey MD ATTENDING PHYSICIAN:Domenic Rainey MD Order: [id number] Test Reason : Monitor QTc Test Date/Time Stamp: TueMay 04 2023 13:58:13 Blood Pressure : / mmHG Vent. Rate : 069 BPM Atrial Rate : 069 BPM P-R Int : 168 ms QRS Dur : 134 ms QT Int : 508 ms P-R-T Axes : 060 -25 089 degrees QTc Int : 544 ms Normal sinus rhythm Nonspecific intraventricular block Abnormal ECG When compared with ECG of 29-APR-2023 02:41, Significant changes have occurred Confirmed by CHARISSA GUERRERO MD ([id number]) on 05/19/2023 5:09:01 PM Referred By: Domneic Rainey Confirmed by:CHARISSA GUERRERO MD at 1709 PATIENT NAME: JONG RIVAS [facility] 2023-05-04 12:52:00 [facility] Infectious Dis. Progress Note REPORT#:[id number] REPORT STATUS: Signed REPORT INITIALIZATION DATE:05/04/23 TIME: 1252 PATIENT: JONG RIVAS UNIT #: [id number] ROOM/BED: [place] [id number] : 66 AGE: 58 SEX: M ATTEND: Domenic Rainey MD ADM AUTHOR: Kirk Wakefield MD REPT SERVICE DT/TIME: 05/04/23 1252 * ALL edits or amendments must be made on the electronic/computer document * See Addendum Subjective Chief complaint: Left-sided diabetic foot infection with osteomyelitis HPI: Transferred to [facility]. Reports feeling okay and denies acute or new complaints currently. Wants to go home. No major overnight events. Objective General VS/I O: Vital Signs Date Temp Pulse Resp B/P B/P Mean Pulse Ox FiO2 05/03-05/04 97.5-98.6 72-85 15-29 123-139/67-79 0.0-102 95-99 Last Documented: Result Date Time Pulse Ox 98 05/04 1158 B/P 129/67 05/04 1158 B/P Mean 0.0 05/04 1158 Temp 98.1 05/04 1158 Pulse 73 05/04 1158 Resp 25 05/04 1158 O2 Delivery Room air 05/04 0301 FiO2 21 05/02 1527 O2 Flow Rate 0 05/01 1800 Vital Signs: Date Time Temp Pulse Resp B/P B/P Pulse O2 O2 Flow FiO2 Mean Ox Delivery Rate 05/04 1158 98.1 73 25 129/67 0.0 98 05/04 0628 97.5 80 29 128/77 0.0 97 05/04 0301 98.2 72 18 123/67 0.0 95 Room air 05/03 2333 97.9 85 15 139/79 0.0 95 Room air 05/03 1829 98.6 76 15 131/73 0.0 95 Room air 05/03 1615 82 19 129/76 97 98 05/03 1600 80 24 134/72 97 98 05/03 1500 82 21 136/78 102 98 05/03 1400 80 27 130/71 95 99 05/03 1300 76 29 126/75 96 96 24 hour I O ending at 0700: 05/04 0700 05/03 1900 Intake Total 1400 1160 Output Total 1625 1600 Balance -225 -440 Intake, Oral 1400 1160 Intake, Oral 0 Supplement Number Voids 3 Output, Urine 1625 1600 Patient 106 kg Weight Weight Standing scale Measurement Method PATIENT WEIGHT: Weight (lb): 233 Weight (oz): 11.04 Weight (kg): 106.000 Physical Exam General appearance: alert, awake, no acute distress Cardiovascular: normal heart sounds, regular rate rhythm, no murmur Respiratory: clear to auscultation, symmetric expansion Abdomen: non-tender, soft, no distention Extremities: no cyanosis, left foot dressed; dressing clean, dry and intact; dressing not removed for exam bilateral legs pitting edema noted pitting edema of legs noted 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 Rivas is a 58-year-old male with history of diabetes mellitus type 2, hypertension, prior smoking history, chronic PE, chronic left foot ulcer. He was admitted at [facility] with complaints of chest pain. He had a coronary angiogram done which showed multivessel CAD and EF of 50%. Patient also has a right lower lobe cavitary lung lesion, which is suspected to be from prior PE. TB QuantiFERON has been requested at the outside facility and was pending at the time of transfer. Infectious disease consultation is requested because patient has a chronic, nonhealing wound in the left lateral foot for last 7 to 8 months according to him. The wound is obviously infected and foul-smelling on exam. He had an MRI done at the outside facility, which shows osteomyelitis of the fifth metatarsal. Patient has a PICC line in place, from outside facility. I was able to review blood cultures, which were reportedly negative at 48 hours. He did have a urine culture positive for Pseudomonas. Other culture data is not available to me. Infectious disease consultation is requested for left-sided diabetic foot infection with osteomyelitis. Patient is being evaluated for possible CABG versus high risk PCI *Left-sided diabetic foot infection with osteomyelitis *Left foot cellulitis *Multivessel CAD, s/p CABG times 5 on 04/27/2023 *RLL cavitary lung lesion, question due to prior PE *Pseudomonas UTI, treated with cefepime *Diabetes mellitus type 2 *Hypertension *Peripheral neuropathy *Prior PE -Afebrile. -Remains on room air. -Normal WBC count on today's CBC. -ESR 106; CRP 77 on 05/02/2023 (previous values: ESR 87; CRP 25 on 04/21/2023). -Blood cultures 04/21/23 negative x 2. -MRSA screen negative. -Called [facility] earlier. Patient's blood cultures have been negative there. Wound culture is positive for MSSA and Pseudomonas ( pansensitive isolate). -Podiatry service is following. Patient is s/p left foot I D and fifth proximal phalanx and metatarsal head resection on 04/24/2023. -Surgical cultures with growth of Pseudomonas aeruginosa, alpha Streptococcus species, many Staphylococcus epidermidis, methicillin-resistant (MRSE) and also with growth of Enterococcus raffinosus (ampicillin sensitive). -S/p CABG times 5 on 04/27/2023. Plan: -Continue piperacillin-tazobactam while here. -Continue doxycycline. -Continue local wound care. -Glycemic control. -Given osteomyelitis, would plan for a 6-week course of antibiotic treatment in total. -Patient is nonfunded and, therefore, would finish treatment with oral agents on discharge. -Based on available sensitivities, a combination of Augmentin 875 mg PO BID + ciprofloxacin 500 mg PO BID + doxycycline 100 mg PO BID would provide adequate coverage, although with associated fluoroquinolone toxicities. -Due to drug-drug interaction between fluoroquinolone and amiodarone, one of the agents would have to be discontinued. -Discussed with cardiology and they are okay with stopping amiodarone. -Amiodarone prescriptions have already been sent to patient's pharmacy. -I called patient's pharmacy in [place], [place] and canceled amiodarone. Spoke to the pharmacist. -Patient was given one dose of ciprofloxacin this am. Will repeat EKG 2 hours after that dose to make sure QTc stays okay. -If it does, okay to dicharge home from ID standpoint. -Antibiotic prescriptions already sent to patient's pharmacy. -Patient has my clinic information and has been advised to follow-up with us as outpatient. -Patient has a right-sided PICC line, which would need to be discontinued upon discharge. CURRENT ANTIMICROBIALS: Doxycycline, started 04/27/2023 Piperacillin-tazobactam, started 04/28/2023 Tentative stop date of antimicrobials: 06/09/2023 (Previously on: Cefepime + metronidazole between 04/21/2023-04/27/2023) at 7645 Addendum 1: 05/04/23 1449 by Kirk Wakefield MD Patient received a dose of ciprofloxacin this morning. Repeat EKG, however, shows prolonged QTc of 544. Discussed with cardiology service. For additional monitoring, will keep patient here overnight. Continue ciprofloxacin 500 mg p.o. every 12 hours. Repeat EKG tonight and tomorrow morning. Continue telemetry monitoring. If patient remains stable, would consider discharging tomorrow morning with the same oral antibiotic regimen mentioned in the original note. If not, he would need to be discharged on IV piperacillin-tazobactam + oral doxycycline. Discussed with case management and requested case management consult to get IV piperacillin-tazobactam arranged, in case he cannot be discharged on oral ciprofloxacin. at 8623 RPT #:[id number] END OF REPORT [facility] 2023-05-04 09:50:00 [facility] ([facility]) Discharge Summary REPORT#:[id number] REPORT STATUS: Signed REPORT INITIALIZATION DATE:05/04/23 TIME: 09 PATIENT: JONG RIVAS UNIT #: [id number] ROOM/BED: G3343-1 : 66 AGE: 58 SEX: M ATTEND: Domenic Rainey MD ADM AUTHOR: Viky Mclaughlin Physic REPT SERVICE DT/TIME: 05/04/23 0950 * ALL edits or amendments must be made on the electronic/computer document * General Information Discharge date: 05/04/23 Discharge diagnosis: CAD, S/p CABG Hospital course: 57-year-old male, poor historian, PMHx diabetes on metformin, neuropathy, HTN, former smoker, PE chronic nonhealing left foot ulcer at the fifth metatarsal located posterior lateral, with no known prior cardiovascular disease. Patient transferred from [facility], referred to us from Dr. Forde for acute coronary syndrome, unstable angina, ischemic heart disease status post coronary angiogram, with findings of multivessel CAD, EF 50%. Upon further chart review patient found to have chronic cavitary lung lesion on CT chest pending QuantiFERON, left lower extremity diabetic foot ulcer concerning for osteomyelitis MRI done at [place] and will upload imaging, foot wound culture with pseudomonas, UTI with urine culture Pseudomonas treated with cefepime. Patient reports dyspnea on exertion and mild chest pain x1 year. 04/18/23: Coronary angiogram done at [facility] Left main patent LAD with high-grade and tortuous calcified lesion just after the first diagonal estimated 95% stenosis first diagonal branch with severe calcified disease 99% Ramus 90 to 95% stenosis, left circumflex artery 99% proximal stenosis OM branches severe disease as well. RCA 90%. LVEDP 11 mmHg and angiography demonstrated preserved LV systolic function, EF 50%. Inferior wall demonstrated mild hypokinesis. 1-2+ MR on LV angio. RICHARDS patent Carotid angiogram, patent carotids Assessment: CAD, severe multivessel Left foot nonhealing foot ulcer Chronic cavitary lesion noted on CT chest UTI Pseudomonas 2023 Patient seen and evaluated by Dr. Rainey CABG eval underway -Consult pulmonology, cardiology, wound care -Lovenox DVT prophylaxis Continue supportive care Further recommendations to follow 04/21/2023 CABG eval underway Patient sitting up in bed, room air, no distress. No complaints Patient with multiple complex medical issues ongoing. Timing of major CV surgery pending medical optimization. We will discuss patient at high risk CV Case conference on Tuesday. -Continue supportive care Seen and examined by Dr. Rainey 04/23/2023 CABG eval underway Patient sitting up in bed, room air, no distress. No complaints Patient with multiple complex medical issues ongoing. Timing of major CV surgery pending medical optimization. Left foot MRI complete with fifth MTP effusion/possible septic arthritis with osteomyelitis changes, no drainable soft tissue abscess. -Amputation left fifth toe and metatarsal scheduled by podiatry for tomorrow -Blood cultures 04/21/2023 no growth after 24-hour -UA negative -Lovenox DVT prophylaxis Continue supportive care Further recommendations to follow 04/24/2023 CABG eval underway Patient sitting up in bed, room air, no distress. No complaints -Amputation left fifth toe and metatarsal scheduled by podiatry for today -Blood cultures 04/21/2023 no growth after 48-hour -follow tissue culture Continue supportive care Further recommendations to follow 04/25/2023 CABG eval underway, plan for OR likely next week to allow patient some time to recover from amputation. Patient sitting up in bed, room air, no distress. No complaints S/P Amputation left fifth toe and metatarsal -Blood cultures 04/21/2023 no growth after 72-hour Encourage OOBTC, IS, PT/OT Continue supportive care Further recommendations to follow 04/26/2023 CABG eval underway, plan for OR likely next week to allow patient some time to recover from amputation. Patient sitting up in bed, room air, no distress. No complaints S/P Amputation left fifth toe and metatarsal -Blood cultures 04/21/2023 no growth after 72-hour Encourage OOBTC, IS, PT/OT Continue supportive care Further recommendations to follow 04/27/23 Patient resting comfortable. Denies complaints AAO x 3 respiratory spi: on room air. Remains sinus rhythm ID following - CABG after 04/27/23 completed ABX Carotid Dopplers showed less than 50% stenosis. Vein mapping complete CT of the chest completed Consider surgery this afternoon. Will stephanie NPO. Patient seen and Examined with Dr. Rainey. STS score calculated. 0.8% Coronary bypass graft surgery was discussed with the patient. The risk of the operation including the STS score, risk of bleeding, infection, , heart attack, stroke, prolonged ICU stay, renal failure, dialysis, need for long-term rehabilitation etc. was discussed with the patient. The patient's questions were answered and the patient agreed to proceed with surgery. 04/27/23 1. Coronary artery bypass graft surgery x5 (RICHARDS to LAD, sequential to diagonal, saphenous vein to first marginal, saphenous vein to second marginal, saphenous vein to PDA). 2. Amputation of left atrial appendage. 3. Posterior pericardiotomy. 4. Endoscopic vein harvest (left greater saphenous vein). 04/28/23 On room air. POD 1 AAOx3 Patient reports pain controlled. Respiratory: on room air. Encourage IS, Deep Breathing, CXR reviewed, CT outputs- Re-access after walking. Cardiac: Remains sinus rhythm, pacing wires on standby GI: Tolerating diet, passing gas. Continue Bowel regimen : Walton in place. UO:650 Continue PT/OT Disposition: Patient lives alone. We will consult rehab. Patient DVT prophylaxis, SCDs in place Labs reveiwed- replace electrolytes as needed Patient seen and examined by Dr. Rainey. Plan of care discussed with multidisciplinary team Continue supportive care. 04/29/23 On room air. POD 2 AAOx3 Patient reports pain controlled. Respiratory: on room air. Encourage IS, Deep Breathing, CXR reviewed, Cardiac: Remains sinus rhythm, pacing wires on standby GI: Tolerating diet, passing gas. Continue Bowel regimen : Walton in place. Will DC Walton later today UO:580, 40 Lasix ordered today. Continue PT/OT out of bed walking with PT today. Disposition: Patient lives alone. We will consult rehab. Patient DVT prophylaxis, SCDs in place Labs reveiwed- replace electrolytes as needed Plan of care discussed with multidisciplinary team Continue supportive care. 04/30/23 POD 3 AAOx3 Patient reports pain controlled. Respiratory: on room air. ALL CT out. Encourage IS, Deep Breathing, CXR reviewed, Cardiac: Remains sinus rhythm, pacing wires on standby GI: Tolerating diet,+ BM. Continue Bowel regimen UO: 1740 Continue PT/OT out of bed walking with PT today. Disposition: Patient lives alone. Rehab consulted however Patient walked 400 feet yesterday DVT prophylaxis, SCDs in place Labs reveiwed- replace electrolytes as needed Plan of care discussed with multidisciplinary team Continue supportive care. ABX as per ID recommendations. Making good progress., Patient was seen and examined with Dr. Prince 05/01/23 POD 4 AAOx3 Patient reports pain controlled. Respiratory: on room air. ALL CT out., Encourage IS, Deep Breathing, CXR reviewed, Cardiac: Remains sinus rhythm, pacing wires on standby GI: Tolerating diet,+ BM yesterday. Continue Bowel regimen UO: 1450 Continue PT/OT out of bed walking with PT today. Disposition: Patient lives alone. Rehab consulted however Patient walked 400 feet yesterday DVT prophylaxis, SCDs in place Labs reveiwed- replace electrolytes as needed Plan of care discussed with multidisciplinary team ABX as per ID recommendations. Give Lasix today, Continuie 05/02/23 POD 5 AAOx3 Patient reports pain controlled. Respiratory: on room air. ALL CT out., Encourage IS, Deep Breathing, CXR reviewed, Cardiac: Remains sinus rhythm, pacing wires on standby GI: Tolerating diet,+ BM Continue Bowel regimen UO: 2500 Continue PT/OT out of bed walking with PT today. Disposition: home DVT prophylaxis, SCDs in place Labs reveiwed- replace electrolytes as needed Plan of care discussed with multidisciplinary team ABX as per ID recommendations. Switch to PO? DVT studies negative Home Tomorrow? 05/03/23 POD 6 AAOx3 Patient reports pain controlled. Respiratory: on room air. ALL CT out., Encourage IS, Deep Breathing, CXR reviewed, Cardiac: Remains sinus rhythm, pacing wires dc'd yesterday, Pending echo report. GI: Tolerating diet,+ BM Continue Bowel regimen Patient has been out of bed walking Disposition: home DVT prophylaxis, SCDs in place Labs reveiwed- replace electrolytes as needed Plan of care discussed with multidisciplinary team ABX as per ID recommendations. Switch to PO upon discharge. DVT studies negative Patient seen and examined by Dr. Rainey. We will give additional Lasix this afternoon. Consider home tomorrow. 05/04/23 POD 7 AAOx3 Patient reports pain controlled. Respiratory: on room air. ALL CT out, Encourage IS, Deep Breathing, CXR reviewed, Cardiac: Remains sinus rhythm, GI: Tolerating diet,+ BM Continue Bowel regimen Patient has been out of bed walking Disposition: home DVT prophylaxis, SCDs in place Labs reveiwed- replace electrolytes as needed Plan of care discussed with multidisciplinary team ABX as per ID recommendations. Switch to PO upon discharge. DVT studies negative Okay to DC patient home today. Consultants: cardiology, cardiovascular surgery, pulmonary Med Rec Med Rec Discharge meds: Stop taking the following medications: LISINOPRIL (ZESTRIL) 10 MG TAB 10 MILLIGRAM ORAL DAILY. ATORVASTATIN (LIPITOR) 40 MG TAB 40 MILLIGRAM ORAL BEDTIME. Qty = 30 ASPIRIN (ASPIRIN) 325 MG TAB 325 MILLIGRAM ORAL DAILY. Qty = 30 VANCOMYCIN (VANCOCIN) (Unknown Strength) VIAL Unknown Dose INTRAVENOUS EVERY 12 HOURS. CEFEPIME (MAXIPIME) (Unknown Strength) VIAL Unknown Dose INTRAVENOUS EVERY 8 HOURS. ASPIRIN EC (ECOTRIN) 325 MG TAB.EC 325 MILLIGRAM ORAL DAILY. ATORVASTATIN (LIPITOR) 40 MG TAB 40 MILLIGRAM ORAL DAILY. LISINOPRIL (ZESTRIL) 20 MG TAB 20 MILLIGRAM ORAL DAILY. METOPROLOL SUCC XL (TOPROL XL) 25 MG TAB.SR.24H 12.5 MILLIGRAM ORAL TWICE DAILY. GABAPENTIN (NEURONTIN) 600 MG TAB 600 MILLIGRAM ORAL THREE TIMES A DAY. ENOXAPARIN (LOVENOX) 30 MG/0.3 ML DISP.SYRIN 30 MILLIGRAM SUBCUTANEOUS EVERY 12 HOURS. ENOXAPARIN (LOVENOX) 80 MG/0.8 ML DISP.SYRIN 80 MILLIGRAM SUBCUTANEOUS EVERY 12 HOURS. Continue taking these medications: metFORMIN (GLUCOPHAGE) 1,000 MG TAB 1,000 MILLIGRAM ORAL TWICE DAILY. glipiZIDE (GLUCOTROL) 10 MG TAB 10 MILLIGRAM ORAL DAILY. GABAPENTIN (NEURONTIN) 600 MG TAB 600 ORAL THREE TIMES A DAY. POLYETHYLENE GLYCOL 3350 (MIRALAX) 17 GRAM POWDER 17 GRAM ORAL DAILY. GLIMEPIRIDE (AMARYL) 4 MG TAB 4 MILLIGRAM ORAL TWICE DAILY. INDOMETHACIN SR (INDOCIN SR) 75 MG CAP.SA 75 MILLIGRAM ORAL DAILY. Start taking the following new medications: CLOPIDOGREL (PLAVIX) 75 MG TAB 75 MILLIGRAM ORAL DAILY. Days = 30 Qty = 30 No Refills FERROUS SULFATE (FEOSOL) 325 MG (65 MG IRON) TAB 325 MILLIGRAM ORAL DAILY. Days = 14 Qty = 14 No Refills AMIODARONE (PACERONE) 200 MG TAB 200 MILLIGRAM ORAL TWICE DAILY. Days = 14 Qty = 21 No Refills Instructions: take 200 mg BID x 1 week, then 200mg QD x 1 week ATORVASTATIN (LIPITOR) 40 MG TAB 40 MILLIGRAM ORAL 2100 Days = 30 Qty = 30 No Refills METOPROLOL TARTRATE (LOPRESSOR) 25 MG TAB 12.5 MILLIGRAM ORAL EVERY 12 HOURS. Days = 30 Qty = 60 No Refills ASPIRIN (ASPIRIN) 81 MG TAB.CHEW 81 MILLIGRAM ORAL DAILY. Days = 30 Qty = [address] (PROTONIX) 40 MG TAB.DR 40 MILLIGRAM ORAL DAILY. Days = 30 Qty = 30 No Refills Discharge Instructions PCP )( Discharge to: Home/Self Care Discharge Instructions Additional Discharge Routines: Attending Follow-Up )( Diet: Cardiac )( Activity: Light Duty, No Driving Follow-up Appointments Attending Physician: Attending Physician: Domenic Rainey MD Attending physician follow up timeframe: In 1-2 weeks at 0955 at 0810 RPT #:[id number] END OF REPORT [facility] 2023-05-04 05:42:00 [facility] Cardiothoracic Surgery Prog REPORT#:[id number] REPORT STATUS: Signed REPORT INITIALIZATION DATE:05/04/23 TIME: 541 PATIENT: JONG RIVAS UNIT #: [id number] ROOM[address]BED: [address] : [address] AGE: 58 SEX: M ATTEND: Domenic Rainey MD ADM AUTHOR: Viky Mclaughlin REPT SERVICE DT/TIME: 05/04/23 0542 * ALL edits or amendments must be made on the electronic/computer document * General Post-op: day 7 Status post: 04/27/23 CABG x 5 (RICHARDS-LAD, Seq-diag, SVG-OM1, SVG-OM2, SVG-PDA) EVH (LGSV) ALAA Subjective Chief complaint: Postop CABG Currently no complaints, resting comfortable Review of Systems Constitutional: Reports: fatigue. Skin: Denies: bruising, contusion, diaphoresis, ecchymosis. Allergy/Immun: Denies: allergic reaction, itching, rhinorrhea, sneezing. Eyes: Denies: redness, discharge, visual loss/blurred. ENT: Denies: throat pain, throat swelling, tongue pain, tongue swelling, toothache. Respiratory: Reports: MENDES (dyspnea on exertion). Denies: SOB, wheezing. Cardiovascular: Denies: chest pain, edema, orthopnea, palpitations. GI: Denies: abdominal pain, nausea, vomiting. : Denies: dysuria, flank pain. Musculoskeletal: Denies: extremity pain, extremity swelling. Psych: Denies: agitation, anxiety, auditory hallucination, visual hallucination. All systems rev neg: except as marked Objective General VS/I O Last Documented: Result Date Time Pulse Ox 95 05/04 301 B/P 123/67 05/04 301 B/P Mean 0.0 05/04 301 O2 Delivery Room air 05/04 301 Temp 98.2 05/04 301 Pulse 72 05/04 301 Resp 18 05/04 301 FiO2 21 05/02 1527 O2 Flow Rate 0 05/01 1800 24 hour I O ending at 0700: 05/04 0700 05/03 1900 Intake Total 1400 1160 Output Total 1075 1600 Balance 325 -440 Intake, Oral 1400 1160 Intake, Oral 0 Supplement Number Voids 2 Output, Urine 1075 1600 PATIENT WEIGHT: Weight (lb): 237 Weight (oz): 10.53 Weight (kg): 107.800 Physical Exam General appearance: alert, awake, oriented Wound/incision: Location: Left foot toe amputation HEENT: anicteric, mucosal membranes moist, pupils reactive to light Neck: full range of motion, non-tender Cardiovascular: normal heart sounds, regular rate rhythm Respiratory: aerating well, clear to auscultation, symmetric expansion, no distress Abdomen: soft, non-tender Genitourinary: no bladder distention, no flank pain Extremities: dry, moves all, normal capillary refill, normal temperature Musculoskeletal: full range of motion, painless range of motion 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 Patient transferred from [facility], referred to us from Dr. Forde for acute coronary syndrome, unstable angina, ischemic heart disease status post coronary angiogram, with findings of multivessel CAD, EF 50%. Upon further chart review patient found to have chronic cavitary lung lesion on CT chest pending QuantiFERON, left lower extremity diabetic foot ulcer concerning for osteomyelitis MRI done at [place] and will upload imaging, foot wound culture with pseudomonas, UTI with urine culture Pseudomonas treated with cefepime. Patient reports dyspnea on exertion and mild chest pain x1 year. 04/18/23: Coronary angiogram done at [facility] Left main patent LAD with high-grade and tortuous calcified lesion just after the first diagonal estimated 95% stenosis first diagonal branch with severe calcified disease 99% Ramus 90 to 95% stenosis, left circumflex artery 99% proximal stenosis OM branches severe disease as well. RCA 90%. LVEDP 11 mmHg and angiography demonstrated preserved LV systolic function, EF 50%. Inferior wall demonstrated mild hypokinesis. 1-2+ MR on LV angio. RICHARDS patent Carotid angiogram, patent carotids Assessment: CAD, severe multivessel Left foot nonhealing foot ulcer Chronic cavitary lesion noted on CT chest UTI Pseudomonas 2023 Patient seen and evaluated by Dr. Rainey CABG eval underway -Consult pulmonology, cardiology, wound care -Lovenox DVT prophylaxis Continue supportive care Further recommendations to follow 04/21/2023 CABG eval underway Patient sitting up in bed, room air, no distress. No complaints Patient with multiple complex medical issues ongoing. Timing of major CV surgery pending medical optimization. We will discuss patient at high risk CV Case conference on Tuesday. -Continue supportive care Seen and examined by Dr. Rainey 04/23/2023 CABG eval underway Patient sitting up in bed, room air, no distress. No complaints Patient with multiple complex medical issues ongoing. Timing of major CV surgery pending medical optimization. Left foot MRI complete with fifth MTP effusion/possible septic arthritis with osteomyelitis changes, no drainable soft tissue abscess. -Amputation left fifth toe and metatarsal scheduled by podiatry for tomorrow -Blood cultures 04/21/2023 no growth after 24-hour -UA negative -Lovenox DVT prophylaxis Continue supportive care Further recommendations to follow 04/24/2023 CABG eval underway Patient sitting up in bed, room air, no distress. No complaints -Amputation left fifth toe and metatarsal scheduled by podiatry for today -Blood cultures 04/21/2023 no growth after 48-hour -follow tissue culture Continue supportive care Further recommendations to follow 04/25/2023 CABG eval underway, plan for OR likely next week to allow patient some time to recover from amputation. Patient sitting up in bed, room air, no distress. No complaints S/P Amputation left fifth toe and metatarsal -Blood cultures 04/21/2023 no growth after 72-hour Encourage OOBTC, IS, PT/OT Continue supportive care Further recommendations to follow 04/26/2023 CABG eval underway, plan for OR likely next week to allow patient some time to recover from amputation. Patient sitting up in bed, room air, no distress. No complaints S/P Amputation left fifth toe and metatarsal -Blood cultures 04/21/2023 no growth after 72-hour Encourage OOBTC, IS, PT/OT Continue supportive care Further recommendations to follow 04/27/23 Patient resting comfortable. Denies complaints AAO x 3 respiratory spi: on room air. Remains sinus rhythm ID following - CABG after 04/27/23 completed ABX Carotid Dopplers showed less than 50% stenosis. Vein mapping complete CT of the chest completed Consider surgery this afternoon. Ryan brown NPO. Patient seen and Examined with Dr. Rainey. STS score calculated. 0.8% Coronary bypass graft surgery was discussed with the patient. The risk of the operation including the STS score, risk of bleeding, infection, , heart attack, stroke, prolonged ICU stay, renal failure, dialysis, need for long-term rehabilitation etc. was discussed with the patient. The patient's questions were answered and the patient agreed to proceed with surgery. 04/27/23 1. Coronary artery bypass graft surgery x5 (RICHARDS to LAD, sequential to diagonal, saphenous vein to first marginal, saphenous vein to second marginal, saphenous vein to PDA). 2. Amputation of left atrial appendage. 3. Posterior pericardiotomy. 4. Endoscopic vein harvest (left greater saphenous vein). 04/28/23 On room air. POD 1 AAOx3 Patient reports pain controlled. Respiratory: on room air. Encourage IS, Deep Breathing, CXR reviewed, CT outputs- Re-access after walking. Cardiac: Remains sinus rhythm, pacing wires on standby GI: Tolerating diet, passing gas. Continue Bowel regimen : Walton in place. UO:650 Continue PT/OT Disposition: Patient lives alone. We will consult rehab. Patient DVT prophylaxis, SCDs in place Labs reveiwed- replace electrolytes as needed Patient seen and examined by Dr. Rainey. Plan of care discussed with multidisciplinary team Continue supportive care. 04/29/23 On room air. POD 2 AAOx3 Patient reports pain controlled. Respiratory: on room air. Encourage IS, Deep Breathing, CXR reviewed, Cardiac: Remains sinus rhythm, pacing wires on standby GI: Tolerating diet, passing gas. Continue Bowel regimen : Walton in place. Will DC Walton later today UO:580, 40 Lasix ordered today. Continue PT/OT out of bed walking with PT today. Disposition: Patient lives alone. We will consult rehab. Patient DVT prophylaxis, SCDs in place Labs reveiwed- replace electrolytes as needed Plan of care discussed with multidisciplinary team Continue supportive care. 04/30/23 POD 3 AAOx3 Patient reports pain controlled. Respiratory: on room air. ALL CT out. Encourage IS, Deep Breathing, CXR reviewed, Cardiac: Remains sinus rhythm, pacing wires on standby GI: Tolerating diet,+ BM. Continue Bowel regimen UO: 1740 Continue PT/OT out of bed walking with PT today. Disposition: Patient lives alone. Rehab consulted however Patient walked 400 feet yesterday DVT prophylaxis, SCDs in place Labs reveiwed- replace electrolytes as needed Plan of care discussed with multidisciplinary team Continue supportive care. ABX as per ID recommendations. Making good progress., Patient was seen and examined with Dr. Prince 05/01/23 POD 4 AAOx3 Patient reports pain controlled. Respiratory: on room air. ALL CT out., Encourage IS, Deep Breathing, CXR reviewed, Cardiac: Remains sinus rhythm, pacing wires on standby GI: Tolerating diet,+ BM yesterday. Continue Bowel regimen UO: 1450 Continue PT/OT out of bed walking with PT today. Disposition: Patient lives alone. Rehab consulted however Patient walked 400 feet yesterday DVT prophylaxis, SCDs in place Labs reveiwed- replace electrolytes as needed Plan of care discussed with multidisciplinary team ABX as per ID recommendations. Give Lasix today, Continuie 05/02/23 POD 5 AAOx3 Patient reports pain controlled. Respiratory: on room air. ALL CT out., Encourage IS, Deep Breathing, CXR reviewed, Cardiac: Remains sinus rhythm, pacing wires on standby GI: Tolerating diet,+ BM Continue Bowel regimen UO: 2500 Continue PT/OT out of bed walking with PT today. Disposition: home DVT prophylaxis, SCDs in place Labs reveiwed- replace electrolytes as needed Plan of care discussed with multidisciplinary team ABX as per ID recommendations. Switch to PO? DVT studies negative Home Tomorrow? 05/03/23 POD 6 AAOx3 Patient reports pain controlled. Respiratory: on room air. ALL CT out., Encourage IS, Deep Breathing, CXR reviewed, Cardiac: Remains sinus rhythm, pacing wires dc'd yesterday, Pending echo report. GI: Tolerating diet,+ BM Continue Bowel regimen Patient has been out of bed walking Disposition: home DVT prophylaxis, SCDs in place Labs reveiwed- replace electrolytes as needed Plan of care discussed with multidisciplinary team ABX as per ID recommendations. Switch to PO upon discharge. DVT studies negative Patient seen and examined by Dr. Rainey. We will give additional Lasix this afternoon. Consider home tomorrow. 05/04/23 POD 7 AAOx3 Patient reports pain controlled. Respiratory: on room air. ALL CT out., Encourage IS, Deep Breathing, CXR reviewed, Cardiac: Remains sinus rhythm, . GI: Tolerating diet,+ BM Continue Bowel regimen Patient has been out of bed walking Disposition: home DVT prophylaxis, SCDs in place Labs reveiwed- replace electrolytes as needed Plan of care discussed with multidisciplinary team ABX as per ID recommendations. Switch to PO upon discharge. DVT studies negative Okay to DC patient home today. Consultants: cardiology, cardiovascular surgery, pulmonary at [phone] at [phone] [facility] #:[id number] END OF REPORT [facility] 2023-05-03 14:38:00 [facility] Endocrinology Progress Note REPORT#:[id number] REPORT STATUS: Signed REPORT INITIALIZATION DATE:05/03/23 TIME: 1437 PATIENT: JONG RIVAS UNIT #: [id number] ROOM/BED: [place] [id number] : 67 AGE: 58 SEX: M ATTEND: Domenic Rainey MD ADM AUTHOR: Vlad Lay MD REPT SERVICE DT/TIME: 05/03/231437 * ALL edits or amendments must be made on the electronic/computer document * Subjective Patient reports: no complaints Objective General VS: Last Documented: Result Date Time Pulse Ox 99 05/03 1400 B/P 130/71 05/03 1400 B/P Mean 95 05/03 1400 Pulse 80 05/03 1400 Resp 27 05/03 1400 Temp 36.8 05/03 0800 O2 Delivery Room air 05/02 2100 FiO2 21 05/02 1527 O2 Flow Rate 0 05/01 1800 PATIENT WEIGHT: Weight (lb): 237 Weight (oz): 10.53 Weight (kg): 107.800 Medications: Active Meds + DC'd Last 24 Hrs Furosemide (LASIX 40 mg/4 mL INJECTION) 40 MG DAILY IV Insulin Glargine (Semglee) 20 UNIT BEDTIME SUBQ Insulin Human Lispro (HUMALOG) 7 UNIT AC SUBQ Ipratropium [place] (ATROVENT) 500 MCG RTQ2H PRN PRN INH Cyanocobalamin (Vitamin B-12 500 mcg tab) 500 MCG DAILY PO Ferrous Sulfate (FERROUS SULFATE) 325 MG DAILY PO Mupirocin (BACTROBAN 2% 22 GM OINTMENT) 1 APPLIC BID NASAL Doxycycline Monohydrate (DOXYCYCLINE MONOHYDRATE) 100 MG Q12HR PO Insulin Human Lispro (HUMALOG) 0 AC HS SUBQ Bisacodyl (DULCOLAX) 10 MG ONCE PRN RECTAL Magnesium Hydroxide (MILK OF MAGNESIA) 30 ML ONCE PRN PO Atorvastatin Calcium (LIPITOR) 40 MG 2100 PO Dextrose/Water (DEXTROSE 10% IN WATER) 250 ML ASDIR PRN IV (CKD) Insulin Human Regular (HumuLIN R) 100 UNIT ASDIR IV (CKD) Sodium Chloride (SODIUM CHLORIDE 0.9%) 99 ML Benzonatate (TESSALON PERLE) 200 MG Q8H PRN PRN PO Piperacillin Sod/Tazobactam Sod (ZOSYN 3.375GM) 3.375 GM Q8H IV Sodium Chloride (SODIUM CHLORIDE 0.9% 100 ML) 100 ML Clopidogrel Bisulfate (Plavix) 75 MG DAILY PO Polyethylene Glycol (MIRALAX) 17 GM DAILY PO Docusate Sodium (COLACE) 100 MG BID PO Metoprolol Tartrate (LOPRESSOR) 12.5 MG Q12HR PO Sennosides (Senna Lax 8.6 MG TABLET) 17.2 MG BEDTIME PO Aspirin (ASPIRIN) 81 MG DAILY PO Pantoprazole (PROTONIX) 40 MG DAILY@0600 PO Amiodarone HCl (CORDARONE) 200 MG TID PO Acetaminophen (TYLENOL) 650 MG Q4H PRN PRN PO Acetaminophen (TYLENOL) 650 MG Q4H PRN PRN RECTAL Calcium Chloride (CALCIUM CHLORIDE) 1 GM ASDIR PRN IV Dextrose/Water (DEXTROSE 10% IN WATER) 125 ML ASDIR PRN IV (CKD) Dextrose/Water (DEXTROSE 10% IN WATER) 250 ML ASDIR PRN IV (CKD) Epinephrine (ADRENALIN CHLORIDE) 4 MG ASDIR IV Dextrose/Water (DEXTROSE 5% WATER) 246 ML Glucagon (GLUCAGON) 1 MG ASDIR PRN IM Magnesium Sulfate (MAGNESIUM SULFATE 4GM/SWFI 100ML) 100 ML ASDIR PRN IV Magnesium Sulfate (MAGNESIUM SULFATE 2GM/SWFI 50ML) 50 ML ASDIR PRN IV Magnesium Sulfate/Dextrose (MAGNESIUM SULFATE 1GM/D5W 100ML) 100 ML ASDIR PRN IV Nitroglycerin/Dextrose (NITROGLYCERIN 50,000MCG/D5W 250ML) 250 ML ASDIR IV Norepinephrine Bitartrate (NOREPINEPHRINE 8 MG/NS 250 ML) 250 ML TITRATE IV Ondansetron HCl (ZOFRAN) 4 MG Q6H PRN PRN IV Oxycodone HCl (ROXICODONE) 5 MG Q4H PRN PRN PO (DC) Oxycodone HCl (ROXICODONE) 10 MG Q4H PRN PRN PO (DC) Potassium Chloride (KCL 20MEQ/SWFI 100ML) 100 ML ASDIR PRN IV Sodium Bicarbonate (SODIUM BICARBONATE) 50 MEQ ASDIR PRN IV Sodium Chloride (SODIUM CHLORIDE 0.9%) 1,000 ML .Q20H IV (DC) Silver Sulfadiazine (SILVADENE 1% 50 GM CREAM) 1 APPLIC Q12HR TOPICAL Gabapentin (NEURONTIN) 200 MG TID PO Physical Exam General appearance: alert, awake Diagnosis, Assessment Plan Hospital course to date: Laboratory Tests: 05/03 05/03 05/02 05/02 1110 0224 1929 1647 Chemistry Sodium (134 - 147 mEq/L) 138 Potassium (3.4 - 5.0 mEq/L) 4.1 Chloride (100 - 108 mEq/L) 104 Carbon Dioxide (21 - 33 mEq/l) 28 Anion Gap (0 - 20) 10 BUN (7 - 25 mg/dL) 18 Creatinine (0.6 - 1.3 mg/dL) 1.0 Glomerular Filtr Rate (90 - 95) 87.8 L Glucose (77 - 141 mg/dL) 147 H POC Glucose (70 - 110 MG/DL) 181 H 160 H 109 Calcium (8.0 - 10.5 mg/dL) 8.7 Magnesium (1.6 - 2.6 mg/dL) 1.72 Hematology WBC (4.5 - 11.0 x10 3/uL) 7.8 RBC (4.00 - 5.60 x10 6/uL) 3.06 L Hgb (12.5 - 16.9 g/dL) 9.1 L Hct (37.5 - 50.7 %) 27.9 L MCV (81.0 - 99.0 fL) 91.2 MCH (27.0 - 33.0 pg) 29.7 MCHC (33.0 - 37.0 g/dL) 32.6 L RDW (11.5 - 14.5 %) 13.2 Plt Count (150 - 400 x10 3/uL) 256 MPV (7.0 - 9.0 fL) 10.2 H Neut % (Auto) (56.0 - 77.0 %) 68.5 Lymph % (Auto) (14.0 - 32.0 %) 20.3 [place] % (Auto) (4.8 - 9.0 %) 7.8 Eos % (Auto) (0.3 - 3.7 %) 2.4 Baso % (Auto) (0.0 - 2.0 %) 0.4 Neut # (Auto) (2.0 - 7.6 x10 3/uL) 5.37 Lymph # (Auto) (1.0 - 3.8 x10 3/uL) 1.59 [place] # (Auto) (0.1 - 0.8 x10 3/uL) 0.61 Eos # (Auto) (0.0 - 0.2 x10 3/uL) 0.19 Baso # (Auto) (0.0 - 0.2 x10 3/uL) 0.03 Abs Immat Gran (auto) (0.00 - 0.03 x10 3/uL) 0.05 H Immature Gran % (0.0 - 2.0 %) 0.6 Nucleated RBC % (0 - 0 %) 0.0 Nucleated RBCs # (Man) (0.0 - 0.1 x10 3/uL) 0.00 Recent Impressions: RADIOLOGY - XR CHEST 1 V 05/03 0646 Report Impression - Status: SIGNED Entered: 05/03/2023 0824 IMPRESSION: No significant change compared to prior study. Postcardiac surgical changes and unchanged pulmonary vascular congestion. Mild atelectasis of the lung bases, left greater than right. Impression By: DR.BAGAR Janiya Butler D.O Laboratory Tests: 05/02 05/02 05/02 05/02 1140 0736 0205 0205 Chemistry Sodium (134 - 147 mEq/L) 133 L Potassium (3.4 - 5.0 mEq/L) 4.0 Chloride (100 - 108 mEq/L) 105 Carbon Dioxide (21 - 33 mEq/l) 26 Anion Gap (0 - 20) 6 BUN (7 - 25 mg/dL) 19 Creatinine (0.6 - 1.3 mg/dL) 0.9 Glomerular Filtr Rate (90 - 95) 99.6 H Glucose (77 - 141 mg/dL) 159 H POC Glucose (70 - 110 MG/DL) 151 H 154 H Calcium (8.0 - 10.5 mg/dL) 8.7 Magnesium (1.6 - 2.6 mg/dL) 1.84 C-Reactive Protein (<10.0 mg/L) 77.0 H Hematology WBC (4.5 - 11.0 x10 3/uL) 9.1 RBC (4.00 - 5.60 x10 6/uL) 3.33 L Hgb (12.5 - 16.9 g/dL) 9.8 L Hct (37.5 - 50.7 %) 30.2 L MCV (81.0 - 99.0 fL) 90.7 MCH (27.0 - 33.0 pg) 29.4 MCHC (33.0 - 37.0 g/dL) 32.5 L RDW (11.5 - 14.5 %) 13.2 Plt Count (150 - 400 x10 3/uL) 292 MPV (7.0 - 9.0 fL) 10.3 H Neut % (Auto) (56.0 - 77.0 %) 71.0 Lymph % (Auto) (14.0 - 32.0 %) 17.5 [place] % (Auto) (4.8 - 9.0 %) 7.4 Eos % (Auto) (0.3 - 3.7 %) 2.8 Baso % (Auto) (0.0 - 2.0 %) 0.6 Neut # (Auto) (2.0 - 7.6 x10 3/uL) 6.44 Lymph # (Auto) (1.0 - 3.8 x10 3/uL) 1.59 [place] # (Auto) (0.1 - 0.8 x10 3/uL) 0.67 Eos # (Auto) (0.0 - 0.2 x10 3/uL) 0.25 H Baso # (Auto) (0.0 - 0.2 x10 3/uL) 0.05 Abs Immat Gran (auto) (0.00 - 0.03 x10 3/uL) 0.06 H Immature Gran % (0.0 - 2.0 %) 0.7 Nucleated RBC % (0 - 0 %) 0.0 Nucleated RBCs # (Man) (0.0 - 0.1 x10 3/uL) 0.00 ESR Westergren (0 - 15 mm/hr) 106 H 05/01 05/01 05/01 1929 1520 1518 Chemistry Sodium (134 - 147 mEq/L) 136 Potassium (3.4 - 5.0 mEq/L) 4.0 Chloride (100 - 108 mEq/L) 104 Carbon Dioxide (21 - 33 mEq/l) 26 Anion Gap (0 - 20) 11 BUN (7 - 25 mg/dL) 19 Creatinine (0.6 - 1.3 mg/dL) 1.0 Glomerular Filtr Rate (90 - 95) 87.8 L Glucose (77 - 141 mg/dL) 149 H POC Glucose (70 - 110 MG/DL) 163 H 131 H Calcium (8.0 - 10.5 mg/dL) 8.5 Phosphorus (2.5 - 4.9 MG/DL) 3.0 Magnesium (1.6 - 2.6 mg/dL) 1.63 Recent Impressions: RADIOLOGY - XR CHEST 1 V 05/02 0500 Report Impression - Status: SIGNED Entered: 05/02/2023 0828 IMPRESSION: No significant change from the prior Impression By: [email or web address] - Anu Amador M.D. ULTRASOUND - DUP VEIN ANALI 05/02 1132 Report Impression - Status: SIGNED Entered: 05/02/2023 1155 IMPRESSION: 1. No evidence of deep venous thrombosis within the visualized venous structures of bilateral lower extremities. Impression By: [email or web address] - Ramon Smiley M.D. Laboratory Tests: 05/01 05/01 05/01 04/30 04/30 1054 0830 0203 1902 1857 Chemistry Sodium (134 - 147 mEq/L) 134 134 Potassium (3.4 - 5.0 mEq/L) 4.1 3.6 Chloride (100 - 108 mEq/L) 105 109 H Carbon Dioxide (21 - 33 mEq/l) 24 21 Anion Gap (0 - 20) 9 8 BUN (7 - 25 mg/dL) 18 20 Creatinine (0.6 - 1.3 mg/dL) 0.9 1.0 Glomerular Filtr Rate (90 - 95) 99.6 H 87.8 L Glucose (77 - 141 mg/dL) 182 H 157 H POC Glucose (70 - 110 MG/DL) 221 H 170 H 157 H Calcium (8.0 - 10.5 mg/dL) 8.8 9.0 Ionized Calcium [place] (1.09 - 1.30 MMOL/L) 1.09 Magnesium (1.6 - 2.6 mg/dL) 2.03 1.80 Hematology WBC (4.5 - 11.0 x10 3/uL) 9.4 RBC (4.00 - 5.60 x10 6/uL) 3.18 L Hgb (12.5 - 16.9 g/dL) 9.4 L Hct (37.5 - 50.7 %) 29.1 L MCV (81.0 - 99.0 fL) 91.5 MCH (27.0 - 33.0 pg) 29.6 MCHC (33.0 - 37.0 g/dL) 32.3 L RDW (11.5 - 14.5 %) 13.1 Plt Count (150 - 400 x10 3/uL) 239 MPV (7.0 - 9.0 fL) 10.7 H Neut % (Auto) (56.0 - 77.0 %) 73.4 Lymph % (Auto) (14.0 - 32.0 %) 14.7 [place] % (Auto) (4.8 - 9.0 %) 8.3 Eos % (Auto) (0.3 - 3.7 %) 2.5 Baso % (Auto) (0.0 - 2.0 %) 0.5 Neut # (Auto) (2.0 - 7.6 x10 3/uL) 6.86 Lymph # (Auto) (1.0 - 3.8 x10 3/uL) 1.38 [place] # (Auto) (0.1 - 0.8 x10 3/uL) 0.78 Eos # (Auto) (0.0 - 0.2 x10 3/uL) 0.23 H Baso # (Auto) (0.0 - 0.2 x10 3/uL) 0.05 Abs Immat Gran (auto) (0.00 - 0.03 0.06 H x10 3/uL) Immature Gran % (0.0 - 2.0 %) 0.6 Nucleated RBC % (0 - 0 %) 0.0 Nucleated RBCs # (Man) (0.0 - 0.1 0.00 x10 3/uL) 04/30 1632 Chemistry POC Glucose (70 - 110 MG/DL) 188 H Recent Impressions: RADIOLOGY - XR CHEST 1 V 05/01 0721 Report Impression - Status: SIGNED Entered: 05/01/2023 9503 IMPRESSION: 1. Expected post-CABG changes with mild central vascular congestion. Impression By: [email or web address] - Silas Do M.D. Laboratory Tests: 04/30 04/30 04/30 04/29 0809 220 220 1931 Chemistry Sodium (134 - 147 mEq/L) 132 L Potassium (3.4 - 5.0 mEq/L) 4.2 Chloride (100 - 108 mEq/L) 105 Carbon Dioxide (21 - 33 mEq/l) 20 L Anion Gap (0 - 20) 11 BUN (7 - 25 mg/dL) 16 Creatinine (0.6 - 1.3 mg/dL) 0.9 Glomerular Filtr Rate (90 - 95) 99.6 H Glucose (77 - 141 mg/dL) 205 H POC Glucose (70 - 110 MG/DL) 181 H 267 H Calcium (8.0 - 10.5 mg/dL) 8.8 Ionized Calcium [place] (1.09 - 1.30 MMOL/L) 1.05 L Magnesium (1.6 - 2.6 mg/dL) 1.87 Total Bilirubin (0.0 - 1.0 mg/dL) 0.40 Direct Bilirubin (0.1 - 0.3 MG/DL) 0.20 Indirect Bilirubin (MG/DL) 0.20 AST (8 - 34 IUnit/L) 23 ALT (10 - 49 IUnit/L) 19 Total Alk Phosphatase (20 - 125 IUnit/L) 62 Total Protein (6.4 - 8.2 g/dL) 6.5 Albumin (3.4 - 5.0 g/dL) 3.20 L Hematology WBC (4.5 - 11.0 x10 3/uL) 13.1 H RBC (4.00 - 5.60 x10 6/uL) 3.41 L Hgb (12.5 - 16.9 g/dL) 10.0 L Hct (37.5 - 50.7 %) 31.1 L MCV (81.0 - 99.0 fL) 91.2 MCH (27.0 - 33.0 pg) 29.3 MCHC (33.0 - 37.0 g/dL) 32.2 L RDW (11.5 - 14.5 %) 13.1 Plt Count (150 - 400 x10 3/uL) 249 MPV (7.0 - 9.0 fL) 10.8 H Neut % (Auto) (56.0 - 77.0 %) 78.3 H Lymph % (Auto) (14.0 - 32.0 %) 11.3 L [place] % (Auto) (4.8 - 9.0 %) 8.3 Eos % (Auto) (0.3 - 3.7 %) 1.3 Baso % (Auto) (0.0 - 2.0 %) 0.2 Neut # (Auto) (2.0 - 7.6 x10 3/uL) 10.28 H Lymph # (Auto) (1.0 - 3.8 x10 3/uL) 1.49 [place] # (Auto) (0.1 - 0.8 x10 3/uL) 1.09 H Eos # (Auto) (0.0 - 0.2 x10 3/uL) 0.17 Baso # (Auto) (0.0 - 0.2 x10 3/uL) 0.03 Abs Immat Gran (auto) (0.00 - 0.03 0.08 H x10 3/uL) Immature Gran % (0.0 - 2.0 %) 0.6 Nucleated RBC % (0 - 0 %) 0.0 Nucleated RBCs # (Man) (0.0 - 0.1 x10 3/uL) 0.00 04/29 04/29 1706 1413 Chemistry Sodium (134 - 147 mEq/L) 137 Potassium (3.4 - 5.0 mEq/L) 3.8 Chloride (100 - 108 mEq/L) 106 Carbon Dioxide (21 - 33 mEq/l) 21 Anion Gap (0 - 20) 14 BUN (7 - 25 mg/dL) 24 Creatinine (0.6 - 1.3 mg/dL) 1.0 Glomerular Filtr Rate (90 - 95) 87.8 L Glucose (77 - 141 mg/dL) 246 H POC Glucose (70 - 110 MG/DL) 216 H Calcium (8.0 - 10.5 mg/dL) 8.5 Phosphorus (2.5 - 4.9 MG/DL) 1.9 L Magnesium (1.6 - 2.6 mg/dL) 1.84 Recent Impressions: RADIOLOGY - XR CHEST 1 V 04/30 2546 Report Impression - Status: SIGNED Entered: 04/30/2023 0828 IMPRESSION: 1. Expected post-CABG changes with interval removal of the mediastinal drains. No pneumothorax. Impression By: Christine Do M.D. Laboratory Tests: 04/29 04/29 04/29 04/29 04/29 1706 1413 1207 1007 0802 Chemistry Sodium (134 - 147 mEq/L) 137 Potassium (3.4 - 5.0 mEq/L) 3.8 Chloride (100 - 108 mEq/L) 106 Carbon Dioxide (21 - 33 mEq/l) 21 Anion Gap (0 - 20) 14 BUN (7 - 25 mg/dL) 24 Creatinine (0.6 - 1.3 mg/dL) 1.0 Glomerular Filtr Rate (90 - 95) 87.8 L Glucose (77 - 141 mg/dL) 246 H POC Glucose (70 - 110 MG/DL) 216 H 171 H 186 H 184 H Calcium (8.0 - 10.5 mg/dL) 8.5 Phosphorus (2.5 - 4.9 MG/DL) 1.9 L Magnesium (1.6 - 2.6 mg/dL) 1.84 04/29 04/29 04/29 04/28 0624 0228 0026 2131 Chemistry Sodium (134 - 147 mEq/L) 135 Potassium (3.4 - 5.0 mEq/L) 4.2 Chloride (100 - 108 mEq/L) 108 Carbon Dioxide (21 - 33 mEq/l) 21 Anion Gap (0 - 20) 11 BUN (7 - 25 mg/dL) 24 Creatinine (0.6 - 1.3 mg/dL) 1.1 Glomerular Filtr Rate (90 - 95) 78.3 L Glucose (77 - 141 mg/dL) 241 H POC Glucose (70 - 110 MG/DL) 199 H 217 H 253 H Calcium (8.0 - 10.5 mg/dL) 8.9 Magnesium (1.6 - 2.6 mg/dL) 2.23 Total Bilirubin (0.0 - 1.0 mg/dL) 0.50 Direct Bilirubin (0.1 - 0.3 MG/DL) 0.30 Indirect Bilirubin (MG/DL) 0.20 AST (8 - 34 IUnit/L) 25 ALT (10 - 49 IUnit/L) 22 Total Alk Phosphatase (20 - 125 IUnit/L) 63 Total Protein (6.4 - 8.2 g/dL) 6.6 Albumin (3.4 - 5.0 g/dL) 3.50 Hematology WBC (4.5 - 11.0 x10 3/uL) 14.5 H RBC (4.00 - 5.60 x10 6/uL) 3.33 L Hgb (12.5 - 16.9 g/dL) 10.2 L Hct (37.5 - 50.7 %) 30.5 L MCV (81.0 - 99.0 fL) 91.6 MCH (27.0 - 33.0 pg) 30.6 MCHC (33.0 - 37.0 g/dL) 33.4 RDW (11.5 - 14.5 %) 13.1 Plt Count (150 - 400 x10 3/uL) 254 MPV (7.0 - 9.0 fL) 10.5 H Neut % (Auto) (56.0 - 77.0 %) 84.5 H Lymph % (Auto) (14.0 - 32.0 %) 6.5 L [place] % (Auto) (4.8 - 9.0 %) 8.1 Eos % (Auto) (0.3 - 3.7 %) 0.1 L Baso % (Auto) (0.0 - 2.0 %) 0.1 Neut # (Auto) (2.0 - 7.6 x10 3/uL) 12.28 H Lymph # (Auto) (1.0 - 3.8 x10 3/uL) 0.94 L [place] # (Auto) (0.1 - 0.8 x10 3/uL) 1.17 H Eos # (Auto) (0.0 - 0.2 x10 3/uL) 0.01 Baso # (Auto) (0.0 - 0.2 x10 3/uL) 0.01 Abs Immat Gran (auto) (0.00 - 0.03 x10 3/uL) 0.10 H Immature Gran % (0.0 - 2.0 %) 0.7 Nucleated RBC % (0 - 0 %) 0.0 Nucleated RBCs # (Man) (0.0 - 0.1 x10 3/uL) 0.00 Recent Impressions: RADIOLOGY - XR CHEST 1 V 04/29 1954 Report Impression - Status: SIGNED Entered: 04/29/2023 3614 IMPRESSION: Signs of trace vascular congestion and central pulmonary edema. Suspect trace bilateral pleural effusions. Stable lines and tubes. Impression By: [email or web address] - Adilson Ordaz D.O. Laboratory Tests: 04/28 04/28 04/28 04/28 04/28 1449 1346 1054 0908 0626 Chemistry Sodium (134 - 147 mEq/L) 135 Potassium (3.4 - 5.0 mEq/L) 4.5 Chloride (100 - 108 mEq/L) 110 H Carbon Dioxide (21 - 33 mEq/l) 19 L Anion Gap (0 - 20) 10 BUN (7 - 25 mg/dL) 26 H Creatinine (0.6 - 1.3 mg/dL) 1.2 Glomerular Filtr Rate (90 - 95) 70.5 L Glucose (77 - 141 mg/dL) 186 H POC Glucose (70 - 110 MG/DL) 144 H 149 H 135 H 140 H Calcium (8.0 - 10.5 mg/dL) 8.7 Ionized Calcium [place] (1.09 - 1.30 MMOL/L) 1.13 Magnesium (1.6 - 2.6 mg/dL) 2.19 04/28 04/28 04/28 04/27 0211 0201 0104 2233 Blood Gas Puncture Site Art Line Art Line O2 Saturation (90 - 100 %) 94.0 97.3 ABG pH (7.35 - 7.45) 7.365 7.359 ABG pCO2 (35.0 - 45 mmHg) 34.0 L 34.7 L ABG pO2 (80 - 100.0 mmHg) 73.3 L 96.9 ABG HCO3 (22.0 - 26.0 MMOL/L) 19.4 L 19.6 L ABG Total CO2 20.5 20.7 ABG Base Excess (-4.0 - 4.0 MMOL/L) -5.9 L -5.8 L ABG Hematocrit (37.5 - 50.7 %) 32 L 32 L ABG Hemoglobin (12.5 - 16.9 G/DL) 10.9 L 10.9 L Sodium (134 - 147 mmol/L) 140 140 Potassium (3.4 - 5.0 mmol/L) 4.7 4.8 Chloride (100 - 108 mmol/L) 110 H 110 H Ionized Calcium (1.12 - 1.32 MMOL/L) 1.24 1.20 Lactic Acid (0.9 - 1.7 mmol/l) 0.5 L 0.9 Temperature (F) 99 98.6 O2 Delivery Device Cannula Cannula Chemistry Sodium (134 - 147 mEq/L) 139 Potassium (3.4 - 5.0 mEq/L) 4.6 Chloride (100 - 108 mEq/L) 111 H Carbon Dioxide (21 - 33 mEq/l) 21 Anion Gap (0 - 20) 12 BUN (7 - 25 mg/dL) 25 Creatinine (0.6 - 1.3 mg/dL) 0.9 POC Creatinine (0.8 - 1.3 mg/dL) 0.8 1.0 Glomerular Filtr Rate (90 - 95) 99.6 H Glucose (77 - 141 mg/dL) 142 H POC Glucose (70 - 110 MG/DL) 121 H POC Glucose (mg/dL) (70 - 110 MG/DL) 138 H 150 H Calcium (8.0 - 10.5 mg/dL) 8.5 Magnesium (1.6 - 2.6 mg/dL) 1.84 Total Bilirubin (0.0 - 1.0 mg/dL) 0.40 Direct Bilirubin (0.1 - 0.3 MG/DL) 0.20 Indirect Bilirubin (MG/DL) 0.20 AST (8 - 34 IUnit/L) 42 H ALT (10 - 49 IUnit/L) 25 Total Alk Phosphatase (20 - 125 IUnit/L) 58 Total Protein (6.4 - 8.2 g/dL) 6.0 L Albumin (3.4 - 5.0 g/dL) 3.20 L Hematology WBC (4.5 - 11.0 x10 3/uL) 13.8 H RBC (4.00 - 5.60 x10 6/uL) 3.44 L Hgb (12.5 - 16.9 g/dL) 10.2 L Hct (37.5 - 50.7 %) 31.1 L MCV (81.0 - 99.0 fL) 90.4 MCH (27.0 - 33.0 pg) 29.7 MCHC (33.0 - 37.0 g/dL) 32.8 L RDW (11.5 - 14.5 %) 12.7 Plt Count (150 - 400 x10 3/uL) 260 MPV (7.0 - 9.0 fL) 10.0 H Neut % (Auto) (56.0 - 77.0 %) 88.7 H Lymph % (Auto) (14.0 - 32.0 %) 4.0 L [place] % (Auto) (4.8 - 9.0 %) 6.7 Eos % (Auto) (0.3 - 3.7 %) 0.0 L Baso % (Auto) (0.0 - 2.0 %) 0.1 Neut # (Auto) (2.0 - 7.6 x10 3/uL) 12.23 H Lymph # (Auto) (1.0 - 3.8 x10 3/uL) 0.55 L [place] # (Auto) (0.1 - 0.8 x10 3/uL) 0.92 H Eos # (Auto) (0.0 - 0.2 x10 3/uL) 0.00 Baso # (Auto) (0.0 - 0.2 x10 3/uL) 0.01 Abs Immat Gran (auto) (0.00 - 0.03 0.07 H x10 3/uL) Immature Gran % (0.0 - 2.0 %) 0.5 Nucleated RBC % (0 - 0 %) 0.0 Nucleated RBCs # (Man) (0.0 - 0.1 0.00 x10 3/uL) 04/275 2004 Chemistry POC Glucose (70 - 110 MG/DL) 145 H 157 H Recent Impressions: RADIOLOGY - XR CHEST 1 V 04/28 0518 Report Impression - Status: SIGNED Entered: 04/28/2023 0830 IMPRESSION: Lines and tubes, as detailed above. Pulmonary edema and small left pleural effusion again noted. Enlarged cardiomediastinal silhouette. Impression By: DR.SHEAL Janiya Jiménez M.D. RADIOLOGY - XR CHEST 1 V 04/28 1716 Report Impression - Status: SIGNED Entered: 04/28/2023 1751 IMPRESSION: Improved mild bilateral interstitial infiltrates. Trace effusions. Impression By: Zane Powers M.D. Laboratory Tests: 04/27 04/27 04/27 04/27 04/27 1424 1422 1348 1347 1235 Blood Gas O2 Saturation (90 - 100 %) 100.0 99.7 ABG pH (7.35 - 7.45) 7.380 7.257 *L ABG pCO2 (35.0 - 45 mmHg) 41.5 45.1 H ABG pO2 (80 - 100.0 mmHg) 381.1 *H 238.6 *H ABG HCO3 (22.0 - 26.0 MMOL/L) 24.6 20.1 L ABG Total CO2 25.8 21.5 ABG Base Excess (-4.0 - 4.0 -0.6 -6.8 L MMOL/L) ABG Hematocrit (37.5 - 50.7 %) 29 L 33 L ABG Hemoglobin (12.5 - 16.9 G/DL) 9.7 L 11.3 L Sodium (134 - 147 mmol/L) 140 139 Potassium (3.4 - 5.0 mmol/L) 5.6 H 4.1 Chloride (100 - 108 mmol/L) 108 108 Ionized Calcium (1.12 - 1.32 1.11 L 1.14 MMOL/L) Lactic Acid (0.9 - 1.7 mmol/l) < 0.3 L 0.3 L Chemistry POC Creatinine (0.8 - 1.3 mg/dL) 0.7 L 0.5 L POC Glucose (mg/dL) (70 - 110 155 H 165 H MG/DL) Coagulation Activated Coag Time (74 - 137 SEC) > 1000 H 677 H 152 H 04/27 04/27 04/27 04/27 1233 0828 0651 0322 Blood Gas O2 Saturation (90 - 100 %) 99.8 ABG pH (7.35 - 7.45) 7.331 L ABG pCO2 (35.0 - 45 mmHg) 32.2 L ABG pO2 (80 - 100.0 mmHg) 252.0 *H ABG HCO3 (22.0 - 26.0 MMOL/L) 17.0 *L ABG Total CO2 18.0 ABG Base Excess (-4.0 - 4.0 MMOL/L) -8.0 L ABG Hematocrit (37.5 - 50.7 %) 32 L ABG Hemoglobin (12.5 - 16.9 G/DL) 11.0 L Sodium (134 - 147 mmol/L) 143 Potassium (3.4 - 5.0 mmol/L) 3.5 Chloride (100 - 108 mmol/L) 113 H Ionized Calcium (1.12 - 1.32 MMOL/L) 1.09 L Lactic Acid (0.9 - 1.7 mmol/l) < 0.3 L Chemistry Sodium (134 - 147 mEq/L) 135 Potassium (3.4 - 5.0 mEq/L) 4.5 Chloride (100 - 108 mEq/L) 108 Carbon Dioxide (21 - 33 mEq/l) 23 Anion Gap (0 - 20) 8 BUN (7 - 25 mg/dL) 22 Creatinine (0.6 - 1.3 mg/dL) 0.9 POC Creatinine (0.8 - 1.3 mg/dL) 0.5 L Glomerular Filtr Rate (90 - 95) 99.6 H Glucose (77 - 141 mg/dL) 131 POC Glucose (70 - 110 MG/DL) 150 H POC Glucose (mg/dL) (70 - 110 MG/DL) 139 H Calcium (8.0 - 10.5 mg/dL) 9.2 Magnesium (1.6 - 2.6 mg/dL) 1.66 Coagulation INR (0.8 - 1.2) 1.5 H PTT (Jalen) (25.0 - 39.5 Seconds) 32.7 PT Patient/Control Mix (9.3 - 12.9 SECONDS) 16.4 H Hematology WBC (4.5 - 11.0 x10 3/uL) 7.1 RBC (4.00 - 5.60 x10 6/uL) 4.00 Hgb (12.5 - 16.9 g/dL) 12.0 L Hct (37.5 - 50.7 %) 36.3 L MCV (81.0 - 99.0 fL) 90.8 MCH (27.0 - 33.0 pg) 30.0 MCHC (33.0 - 37.0 g/dL) 33.1 RDW (11.5 - 14.5 %) 12.3 Plt Count (150 - 400 x10 3/uL) 277 MPV (7.0 - 9.0 fL) 10.1 H Neut % (Auto) (56.0 - 77.0 %) 60.0 Lymph % (Auto) (14.0 - 32.0 %) 29.4 [place] % (Auto) (4.8 - 9.0 %) 7.5 Eos % (Auto) (0.3 - 3.7 %) 1.8 Baso % (Auto) (0.0 - 2.0 %) 0.7 Neut # (Auto) (2.0 - 7.6 x10 3/uL) 4.27 Lymph # (Auto) (1.0 - 3.8 x10 3/uL) 2.09 [place] # (Auto) (0.1 - 0.8 x10 3/uL) 0.53 Eos # (Auto) (0.0 - 0.2 x10 3/uL) 0.13 Baso # (Auto) (0.0 - 0.2 x10 3/uL) 0.05 Abs Immat Gran (auto) (0.00 - 0.03 0.04 H x10 3/uL) Immature Gran % (0.0 - 2.0 %) 0.6 Nucleated RBC % (0 - 0 %) 0.0 Nucleated RBCs # (Man) (0.0 - 0.1 x10 3/uL) 0.00 Serology SARS-CoV-2 Ag (Rapid) (Negative) Negative 04/26 1601 Chemistry POC Glucose (70 - 110 MG/DL) 175 H 164 H Microbiology: Date/Time Procedure - Status Source Growth 04/27 828 MSSA Surveillance Screen - RECD NASAL 04/27 828 MRSA DNA Surveillance Screen - RECD NASAL Laboratory Tests: 04/26 04/26 04/26 04/25 1123 0714 0545 2028 Chemistry Sodium (134 - 147 mEq/L) 137 Potassium (3.4 - 5.0 mEq/L) 4.6 Chloride (100 - 108 mEq/L) 107 Carbon Dioxide (21 - 33 mEq/l) 23 Anion Gap (0 - 20) 12 BUN (7 - 25 mg/dL) 28 H Creatinine (0.6 - 1.3 mg/dL) 1.0 Glomerular Filtr Rate (90 - 95) 87.8 L Glucose (77 - 141 mg/dL) 137 POC Glucose (70 - 110 MG/DL) 192 H 137 H 214 H Calcium (8.0 - 10.5 mg/dL) 9.2 Magnesium (1.6 - 2.6 mg/dL) 1.64 Hematology WBC (4.5 - 11.0 x10 3/uL) 7.5 RBC (4.00 - 5.60 x10 6/uL) 3.95 L Hgb (12.5 - 16.9 g/dL) 11.9 L Hct (37.5 - 50.7 %) 35.8 L MCV (81.0 - 99.0 fL) 90.6 MCH (27.0 - 33.0 pg) 30.1 MCHC (33.0 - 37.0 g/dL) 33.2 RDW (11.5 - 14.5 %) 12.4 Plt Count (150 - 400 x10 3/uL) 289 MPV (7.0 - 9.0 fL) 10.2 H Neut % (Auto) (56.0 - 77.0 %) 58.7 Lymph % (Auto) (14.0 - 32.0 %) 30.8 [place] % (Auto) (4.8 - 9.0 %) 7.8 Eos % (Auto) (0.3 - 3.7 %) 1.7 Baso % (Auto) (0.0 - 2.0 %) 0.5 Neut # (Auto) (2.0 - 7.6 x10 3/uL) 4.38 Lymph # (Auto) (1.0 - 3.8 x10 3/uL) 2.30 [place] # (Auto) (0.1 - 0.8 x10 3/uL) 0.58 Eos # (Auto) (0.0 - 0.2 x10 3/uL) 0.13 Baso # (Auto) (0.0 - 0.2 x10 3/uL) 0.04 Abs Immat Gran (auto) (0.00 - 0.03 x10 3/uL) 0.04 H Immature Gran % (0.0 - 2.0 %) 0.5 Nucleated RBC % (0 - 0 %) 0.0 Nucleated RBCs # (Man) (0.0 - 0.1 x10 3/uL) 0.00 Laboratory Tests: 04/25 04/25 04/25 04/24 1126 0786 0224 2002 Chemistry Sodium (134 - 147 mEq/L) 134 Potassium (3.4 - 5.0 mEq/L) 4.2 Chloride (100 - 108 mEq/L) 105 Carbon Dioxide (21 - 33 mEq/l) 23 Anion Gap (0 - 20) 11 BUN (7 - 25 mg/dL) 26 H Creatinine (0.6 - 1.3 mg/dL) 1.0 Glomerular Filtr Rate (90 - 95) 87.8 L Glucose (77 - 141 mg/dL) 168 H POC Glucose (70 - 110 MG/DL) 214 H 158 H 347 H Calcium (8.0 - 10.5 mg/dL) 9.2 Magnesium (1.6 - 2.6 mg/dL) 1.60 Hematology WBC (4.5 - 11.0 x10 3/uL) 11.9 H RBC (4.00 - 5.60 x10 6/uL) 3.89 L Hgb (12.5 - 16.9 g/dL) 11.6 L Hct (37.5 - 50.7 %) 34.7 L MCV (81.0 - 99.0 fL) 89.2 MCH (27.0 - 33.0 pg) 29.8 MCHC (33.0 - 37.0 g/dL) 33.4 RDW (11.5 - 14.5 %) 12.5 Plt Count (150 - 400 x10 3/uL) 316 MPV (7.0 - 9.0 fL) 10.5 H Neut % (Auto) (56.0 - 77.0 %) 80.7 H Lymph % (Auto) (14.0 - 32.0 %) 11.5 L [place] % (Auto) (4.8 - 9.0 %) 6.9 Eos % (Auto) (0.3 - 3.7 %) 0.2 L Baso % (Auto) (0.0 - 2.0 %) 0.2 Neut # (Auto) (2.0 - 7.6 x10 3/uL) 9.65 H Lymph # (Auto) (1.0 - 3.8 x10 3/uL) 1.37 [place] # (Auto) (0.1 - 0.8 x10 3/uL) 0.82 H Eos # (Auto) (0.0 - 0.2 x10 3/uL) 0.02 Baso # (Auto) (0.0 - 0.2 x10 3/uL) 0.02 Abs Immat Gran (auto) (0.00 - 0.03 x10 3/uL) 0.06 H Add Manual Diff NO Immature Gran % (0.0 - 2.0 %) 0.5 Nucleated RBC % (0 - 0 %) 0.0 Nucleated RBCs # (Man) (0.0 - 0.1 x10 3/uL) 0.00 Laboratory Tests: 04/24 04/24 04/24 04/24 04/24 1532 1108 1013 0645 0301 Chemistry Sodium (134 - 147 mEq/L) 135 Potassium (3.4 - 5.0 mEq/L) 4.3 Chloride (100 - 108 mEq/L) 106 Carbon Dioxide (21 - 33 mEq/l) 21 Anion Gap (0 - 20) 13 BUN (7 - 25 mg/dL) 18 Creatinine (0.6 - 1.3 mg/dL) 0.9 Glomerular Filtr Rate (90 - 95) 99.6 H Glucose (77 - 141 mg/dL) 113 POC Glucose (70 - 110 MG/DL) 310 H 176 H 149 H 141 H Calcium (8.0 - 10.5 mg/dL) 9.2 Magnesium (1.6 - 2.6 mg/dL) 1.68 Hematology WBC (4.5 - 11.0 x10 3/uL) 7.8 RBC (4.00 - 5.60 x10 6/uL) 3.93 L Hgb (12.5 - 16.9 g/dL) 11.7 L Hct (37.5 - 50.7 %) 35.6 L MCV (81.0 - 99.0 fL) 90.6 MCH (27.0 - 33.0 pg) 29.8 MCHC (33.0 - 37.0 g/dL) 32.9 L RDW (11.5 - 14.5 %) 12.3 Plt Count (150 - 400 x10 3/uL) 278 MPV (7.0 - 9.0 fL) 10.0 H Neut % (Auto) (56.0 - 77.0 %) 68.0 Lymph % (Auto) (14.0 - 32.0 %) 21.2 [place] % (Auto) (4.8 - 9.0 %) 7.9 Eos % (Auto) (0.3 - 3.7 %) 1.9 Baso % (Auto) (0.0 - 2.0 %) 0.4 Neut # (Auto) (2.0 - 7.6 x10 3/uL) 5.28 Lymph # (Auto) (1.0 - 3.8 x10 3/uL) 1.65 [place] # (Auto) (0.1 - 0.8 x10 3/uL) 0.61 Eos # (Auto) (0.0 - 0.2 x10 3/uL) 0.15 Baso # (Auto) (0.0 - 0.2 x10 3/uL) 0.03 Abs Immat Gran (auto) (0.00 - 0.03 0.05 H x10 3/uL) Immature Gran % (0.0 - 2.0 %) 0.6 Nucleated RBC % (0 - 0 %) 0.0 Nucleated RBCs # (Man) (0.0 - 0.1 0.00 x10 3/uL) 04/23 2019 Chemistry POC Glucose (70 - 110 MG/DL) 276 H Microbiology: Date/Time Procedure - Status Source Growth 04/24 1000 Tissue Culture - RES TISSUE 04/24 1000 Anaerobic Culture - RES TISSUE 04/24 1000 Gram Stain - RES TISSUE Laboratory Tests: 04/23 04/23 04/23 04/23 04/23 1550 1110 0703 0330 0330 Chemistry Sodium (134 - 147 mEq/L) 137 Potassium (3.4 - 5.0 mEq/L) 3.9 Chloride (100 - 108 mEq/L) 105 Carbon Dioxide (21 - 33 mEq/l) 22 Anion Gap (0 - 20) 14 BUN (7 - 25 mg/dL) 25 Creatinine (0.6 - 1.3 mg/dL) 1.1 Glomerular Filtr Rate (90 - 95) 78.3 L Glucose (77 - 141 mg/dL) 131 POC Glucose (70 - 110 MG/DL) 265 H 284 H 143 H Calcium (8.0 - 10.5 mg/dL) 9.4 Magnesium (1.6 - 2.6 mg/dL) 1.72 Hematology WBC (4.5 - 11.0 x10 3/uL) 10.1 RBC (4.00 - 5.60 x10 6/uL) 4.24 Hgb (12.5 - 16.9 g/dL) 12.7 Hct (37.5 - 50.7 %) 38.4 MCV (81.0 - 99.0 fL) 90.6 MCH (27.0 - 33.0 pg) 30.0 MCHC (33.0 - 37.0 g/dL) 33.1 RDW (11.5 - 14.5 %) 12.3 Plt Count (150 - 400 x10 3/uL) 332 MPV (7.0 - 9.0 fL) 10.3 H Neut % (Auto) (56.0 - 77.0 %) 71.8 Lymph % (Auto) (14.0 - 32.0 %) 18.0 [place] % (Auto) (4.8 - 9.0 %) 8.4 Eos % (Auto) (0.3 - 3.7 %) 0.8 Baso % (Auto) (0.0 - 2.0 %) 0.4 Neut # (Auto) (2.0 - 7.6 x10 3/uL) 7.28 Lymph # (Auto) (1.0 - 3.8 x10 3/uL) 1.82 [place] # (Auto) (0.1 - 0.8 x10 3/uL) 0.85 H Eos # (Auto) (0.0 - 0.2 x10 3/uL) 0.08 Baso # (Auto) (0.0 - 0.2 x10 3/uL) 0.04 Abs Immat Gran (auto) (0.00 - 0.03 0.06 H x10 3/uL) Immature Gran % (0.0 - 2.0 %) 0.6 Nucleated RBC % (0 - 0 %) 0.0 Nucleated RBCs # (Man) (0.0 - 0.1 0.00 x10 3/uL) 04/23 04/22 0252 2121 Chemistry POC Glucose (70 - 110 MG/DL) 197 H Toxicology Vancomycin Trough (10.0 - 20.0 mcg/mL) 12.1 Recent Impressions: MAGNETIC RESONANCE IMAGING - MRI LOW EXT W/O CONT LT 04/23 1034 Report Impression - Status: SIGNED Entered: 04/23/2023 1207 IMPRESSION: 5th MTP effusion/possible septic arthritis with osteomyelitis changes as detailed. No drainable soft tissue abscess. Impression By: [email or web address] - Aaron Lemuel Goldberg M.D. Laboratory Tests: 04/22 04/21 04/21 0421 1957 1555 Chemistry Sodium (134 - 147 mEq/L) 139 Potassium (3.4 - 5.0 mEq/L) 4.3 Chloride (100 - 108 mEq/L) 108 Carbon Dioxide (21 - 33 mEq/l) 22 Anion Gap (0 - 20) 14 BUN (7 - 25 mg/dL) 17 Creatinine (0.6 - 1.3 mg/dL) 0.9 Glomerular Filtr Rate (90 - 95) 99.6 H Glucose (77 - 141 mg/dL) 124 POC Glucose (70 - 110 MG/DL) 232 H 133 H Calcium (8.0 - 10.5 mg/dL) 9.0 Hematology WBC (4.5 - 11.0 x10 3/uL) 8.6 RBC (4.00 - 5.60 x10 6/uL) 3.89 L Hgb (12.5 - 16.9 g/dL) 11.5 L Hct (37.5 - 50.7 %) 36.2 L MCV (81.0 - 99.0 fL) 93.1 MCH (27.0 - 33.0 pg) 29.6 MCHC (33.0 - 37.0 g/dL) 31.8 L RDW (11.5 - 14.5 %) 12.5 Plt Count (150 - 400 x10 3/uL) 301 MPV (7.0 - 9.0 fL) 10.1 H Neut % (Auto) (56.0 - 77.0 %) 66.1 Lymph % (Auto) (14.0 - 32.0 %) 23.5 [place] % (Auto) (4.8 - 9.0 %) 7.4 Eos % (Auto) (0.3 - 3.7 %) 2.0 Baso % (Auto) (0.0 - 2.0 %) 0.6 Neut # (Auto) (2.0 - 7.6 x10 3/uL) 5.66 Lymph # (Auto) (1.0 - 3.8 x10 3/uL) 2.01 [place] # (Auto) (0.1 - 0.8 x10 3/uL) 0.63 Eos # (Auto) (0.0 - 0.2 x10 3/uL) 0.17 Baso # (Auto) (0.0 - 0.2 x10 3/uL) 0.05 Abs Immat Gran (auto) (0.00 - 0.03 x10 3/uL) 0.03 Immature Gran % (0.0 - 2.0 %) 0.4 Nucleated RBC % (0 - 0 %) 0.0 Nucleated RBCs # (Man) (0.0 - 0.1 x10 3/uL) 0.00 Microbiology: Date/Time Procedure - Status Source Growth 04/21 1535 Blood Culture - RECD BLOOD 04/21 153 Blood Culture Gram Stain - RECD BLOOD 04/21 153 Blood Culture - RECD BLOOD 04/21 153 Blood Culture Gram Stain - RECD BLOOD Recent Impressions: RADIOLOGY - XR FOOT 3 + V LT 04/21 1423 Report Impression - Status: SIGNED Entered: 04/21/2023 1438 IMPRESSION: Interval progression of osteomyelitis involving the fifth metatarsal head and fifth proximal phalanx base about the MTP joint since the prior study from 04/16/2023. Impression By: [email or web address] - Brett Elizabeth M.D. Laboratory Tests: 04/21 04/21 04/21 04/21 1128 0931 0534 0132 Chemistry Sodium (134 - 147 mEq/L) 137 Potassium (3.4 - 5.0 mEq/L) 4.0 Chloride (100 - 108 mEq/L) 105 Carbon Dioxide (21 - 33 mEq/l) 24 Anion Gap (0 - 20) 12 BUN (7 - 25 mg/dL) 18 Creatinine (0.6 - 1.3 mg/dL) 1.1 Glomerular Filtr Rate (90 - 95) 78.3 L Glucose (77 - 141 mg/dL) 181 H POC Glucose (70 - 110 MG/DL) 172 H Calcium (8.0 - 10.5 mg/dL) 9.3 Magnesium (1.6 - 2.6 mg/dL) 1.61 C-Reactive Protein (<10.0 mg/L) 25.0 H Hematology WBC (4.5 - 11.0 x10 3/uL) 7.0 RBC (4.00 - 5.60 x10 6/uL) 4.05 Hgb (12.5 - 16.9 g/dL) 12.0 L Hct (37.5 - 50.7 %) 36.5 L MCV (81.0 - 99.0 fL) 90.1 MCH (27.0 - 33.0 pg) 29.6 MCHC (33.0 - 37.0 g/dL) 32.9 L RDW (11.5 - 14.5 %) 12.0 Plt Count (150 - 400 x10 3/uL) 305 MPV (7.0 - 9.0 fL) 10.5 H Neut % (Auto) (56.0 - 77.0 %) 61.3 Lymph % (Auto) (14.0 - 32.0 %) 27.0 [place] % (Auto) (4.8 - 9.0 %) 8.9 Eos % (Auto) (0.3 - 3.7 %) 1.7 Baso % (Auto) (0.0 - 2.0 %) 0.7 Neut # (Auto) (2.0 - 7.6 x10 3/uL) 4.28 Lymph # (Auto) (1.0 - 3.8 x10 3/uL) 1.89 [place] # (Auto) (0.1 - 0.8 x10 3/uL) 0.62 Eos # (Auto) (0.0 - 0.2 x10 3/uL) 0.12 Baso # (Auto) (0.0 - 0.2 x10 3/uL) 0.05 Abs Immat Gran (auto) (0.00 - 0.03 x10 3/uL) 0.03 Immature Gran % (0.0 - 2.0 %) 0.4 Nucleated RBC % (0 - 0 %) 0.0 Nucleated RBCs # (Man) (0.0 - 0.1 x10 3/uL) 0.00 ESR Westergren (0 - 15 mm/hr) 87 H Urines Urine Color (YEL/STRAW) YELLOW Urine Appearance (CLEAR) CLEAR Urine pH (5.0 - 7.0) 5.0 Ur Specific [place] (1.005 - 1.030) 1.011 Urine Protein (NEGATIVE) NEGATIVE Urine Glucose (UA) (NEGATIVE) 3+ H Urine Ketones (NEGATIVE) NEGATIVE Urine Blood (NEGATIVE) NEGATIVE Urine Nitrite (NEGATIVE) NEGATIVE Urine Bilirubin (NEGATIVE) NEGATIVE Urine Urobilinogen (0.2 - 1.0 mg/dL) 0.2 Ur Leukocyte Esterase (NEGATIVE) NEGATIVE Urine RBC (0 - 3 RBC/HPF) 0-3 Urine WBC (0 - 3 WBC/HPF) 0-3 Ur Squamous Epith Cells (NONE SEEN /HPF) 0-5 Ur Transition Epith Cell (NONE SEEN /HPF) TRACE Urine Bacteria (NONE SEEN /HPF) TRACE Urine Mucus (NONE SEEN /LPF) TRACE 04/20 Chemistry POC Glucose (70 - 110 MG/DL) 325 H Coagulation INR (0.8 - 1.2) 1.3 H PTT (Jalen) (25.0 - 39.5 Seconds) 39.3 PT Patient/Control Mix (9.3 - 12.9 SECONDS) 14.5 H Microbiology: Date/Time Procedure - Status Source Growth 04/21 153 Blood Culture - RECD BLOOD 04/21 153 Blood Culture Gram Stain - RECD BLOOD 04/21 1535 Blood Culture - RECD BLOOD 04/21 1535 Blood Culture Gram Stain - RECD BLOOD Recent Impressions: RADIOLOGY - XR FOOT 3 + V LT 04/21 1423 Report Impression - Status: SIGNED Entered: 04/21/2023 1438 IMPRESSION: Interval progression of osteomyelitis involving the fifth metatarsal head and fifth proximal phalanx base about the MTP joint since the prior study from 04/16/2023. Impression By: [email or web address] - Brett Elizabeth M.D. 1. 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 2. Coronary artery disease. 6 3. S/P CABG 4. Ex-smoker 5.Left foot wound 6.Hypertension. 7. Hyperlipidemia Blood sugar 147-181 mg/dL. HbA1c 8.3%. Lipids elevated.This Adjust insulin dose. Diabetes dietary education. at 1439 RPT #:[id number] END OF REPORT [facility] 2023-05-03 14:07:00 [facility] ([facility]) Heart Failure Progress Note REPORT#:[id number] REPORT STATUS: Signed REPORT INITIALIZATION DATE:05/03/23 TIME: 140 PATIENT: JONG RIVAS UNIT #: [id number] ROOM/BED: [place] [id number] : 66 AGE: 58 SEX: M ATTEND: Domenic Rainey MD ADM AUTHOR: Domingo Irving [employer]PER [employer]ATER REPT SERVICE DT/TIME: 05/03/23 1030 * ALL edits or amendments must be made on the electronic/computer document * Fiona Irvingmarcie T 05/03/23 1407: Subjective HPI: This is a 58 year old male with a past medical history of DM type II, hypertension PE on anticoagulation, right lung lesion, and hypertension that presented initially to [facility] as an NSTEMI, he underwent angiogram and transffered to [facility] after patient was found to have multivessel CAD. The patient underwent CABG x 5 (04/27/2023) and is now recovering. Echocardiogram was performe and showed EF 50-55% with grade I diastolic dysfunction. We were asked to evaluate and make recommendations from a heart failure standpoint. Currently, the patient sitting in chair, reports doing well, and expects to go home soon. Dr Wood explained the need for IV lasix. Patient reports: no shortness of breath Objective General VS/I O: Vital Signs Date Temp Pulse Resp B/P B/P Mean Pulse Ox FiO2 05/02-05/03 98.3-98.7 68-90 16-44 101-173/59-95 79-122 92-99 21 24 hour I O ending at 0700: 05/03 0700 05/02 1900 Intake Total 500.00 Output Total 1200 800 Balance -700.00 -800 Intake, IV 250.00 Intake, Oral 250 Number 1 Bowel Movements Number Voids 3 2 Output, Urine 1200 800 Patient 238 lb Weight Weight Standing scale Measurement Method PATIENT WEIGHT: Weight (lb): 237 Weight (oz): 10.53 Weight (kg): 107.800 Medications: Medication(s) Ordered: Anti-Infective Agents Sig/Katie Start time Last Medication Dose Route Stop Time Status Admin Doxycycline 100 MG Q12HR 04/29 2100 AC 05/03 Monohydrate PO 06/09 2059 0746 Piperacillin Sod/ 3.375 GM Q8H 04/28 1100 AC 05/03 Tazobactam Sod IV 06/09 1059 1212 Sodium Chloride 100 ML Autonomic Drugs Sig/Katie Start time Last Medication Dose Route Stop Time Status Admin Ipratropium [place] 500 MCG RTQ2H PRN PRN 04/30 1438 AC INH 07/29 1437 Epinephrine 4 MG ASDIR 04/27 1445 AC Dextrose/Water 246 ML IV 07/26 1444 Norepinephrine 250 ML TITRATE 04/27 1445 AC Bitartrate IV 07/26 1444 Blood Formation,Coagulation Sig/Katie Start time Last Medication Dose Route Stop Time Status Admin Ferrous Sulfate 325 MG DAILY 04/30 900 AC 05/03 PO 07/29 0859 0745 Clopidogrel Bisulfate 75 MG DAILY 04/28 900 AC 05/03 PO 07/27 0859 0746 Cardiovascular Drugs Sig/Katie Start time Last Medication Dose Route Stop Time Status Admin Atorvastatin Calcium 40 MG 2100 04/28 2100 AC 05/02 PO 05/28 Metoprolol Tartrate 12.5 MG Q12HR 04/27 2100 AC 05/03 PO 07/26 205 0746 Amiodarone HCl 200 MG TID 04/27 1500 AC 05/03 PO 07/26 1459 0746 Nitroglycerin/ 250 ML ASDIR 04/27 1445 AC Dextrose IV 07/26 1444 Central Nervous System Agents Sig/Katie Start time Last Medication Dose Route Stop Time Status Admin Aspirin 81 MG DAILY 04/27 2038 AC 05/03 PO 07/26 203 0746 Acetaminophen 650 MG Q4H PRN PRN 04/27 1445 AC 05/02 PO 07/26 1444 2012 Acetaminophen 650 MG Q4H PRN PRN 04/27 1445 AC RECTAL 07/26 1444 Magnesium Sulfate 100 ML ASDIR PRN 04/27 1445 AC IV 07/26 1444 Magnesium Sulfate 50 ML ASDIR PRN 04/27 1445 AC 05/03 IV 07/26 1444 0321 Magnesium Sulfate/ 100 ML ASDIR PRN 04/27 1445 AC 05/01 Dextrose IV 07/26 1444 0307 Oxycodone HCl 5 MG Q4H PRN PRN 04/27 1445 DC 05/01 PO 05/02 1444 0553 Oxycodone HCl 10 MG Q4H PRN PRN 04/27 1445 DC 04/29 PO 05/02 1444 2339 Gabapentin 200 MG TID 04/20 1500 AC 05/03 PO 07/19 1459 0746 Electrolytic, Caloric, And Alen Sig/Katie Start time Last Medication Dose Route Stop Time Status Admin Furosemide 40 MG DAILY 05/03 1315 AC IV 08/01 1314 Dextrose/Water 250 ML ASDIR PRN 04/28 1830 CKD IV 07/27 1829 Calcium Chloride 1 GM ASDIR PRN 04/27 1445 AC IV 07/26 1444 Dextrose/Water 125 ML ASDIR PRN 04/27 1445 CKD IV 07/26 1444 Dextrose/Water 250 ML ASDIR PRN 04/27 1445 CKD IV 07/26 1444 Potassium Chloride 100 ML ASDIR PRN 04/27 1445 AC 04/30 IV 07/26 1444 2111 Sodium Bicarbonate 50 MEQ ASDIR PRN 04/27 1445 AC IV 07/26 1444 Sodium Chloride 1,000 ML .Q20H 04/27 1445 DC 04/28 IV 07/26 1444 0341 Gastrointestinal Drugs Sig/Katie Start time Last Medication Dose Route Stop Time Status Admin Bisacodyl 10 MG ONCE PRN 04/29 1200 AC RECTAL 07/28 1159 Magnesium Hydroxide 30 ML ONCE PRN 04/29 1200 AC PO Polyethylene Glycol 17 GM DAILY 04/28 900 AC 05/02 PO 07/27 0859 0801 Docusate Sodium 100 MG BID 04/27 2100 AC 05/02 PO 07/26 205 0802 Sennosides 17.2 MG BEDTIME 04/27 2100 AC 05/01 PO 07/26 205 1940 Pantoprazole 40 MG DAILY@0600 04/27 1600 AC 05/03 PO 07/26 1559 0537 Ondansetron HCl 4 MG Q6H PRN PRN 04/27 1445 AC IV 07/26 1444 Hormones And Synthetic Substit Sig/Katie Start time Last Medication Dose Route Stop Time Status Admin Prednisone 40 MG ONCE ONE 05/02 1415 DC PO 05/02 1416 Insulin Glargine 20 UNIT BEDTIME 05/01 2100 AC 05/02 SUBQ 07/30 Insulin Human Lispro 7 UNIT AC 05/01 1630 AC 05/03 SUBQ 07/30 1629 1211 Insulin Human Lispro 0 AC HS 04/29 2100 AC 05/03 SUBQ 07/28 205 1211 Insulin Human Regular 100 UNIT ASDIR 04/28 1830 CKD Sodium Chloride 99 ML IV 07/27 1829 Glucagon 1 MG ASDIR PRN 04/27 1445 AC IM 07/26 1444 Respiratory Tract Agents Sig/Katie Start time Last Medication Dose Route Stop Time Status Admin Benzonatate 200 MG Q8H PRN PRN 04/28 1745 AC 05/02 PO 07/27 1744 0232 Skin And Mucous Membrane Agent Sig/Katie Start time Last Medication Dose Route Stop Time Status Admin Mupirocin 1 APPLIC BID 04/30 900 AC 05/03 NASAL 11/15 2101 0747 Silver Sulfadiazine 1 APPLIC Q12HR 04/22 2100 AC 05/03 TOPICAL 07/21 2058 0747 Vitamins Sig/Katie Start time Last Medication Dose Route Stop Time Status Admin Cyanocobalamin 500 MCG DAILY 04/30 0900 AC 05/03 PO 07/29 0859 0746 Physical Exam General appearance: alert, awake, oriented, no acute distress, conversational, no respiratory distress Neck: full range of motion, non-tender, no bruit/NL carotids, no JVD Cardiovascular: regular rate and rhythm, no ectopy Respiratory: no distress Abdomen: soft, non-tender Extremities: moves all, edema (pitting edema) 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, 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 Postcardiac surgical changes and unchanged pulmonary vascular congestion. Mild atelectasis of the lung bases, left greater than right. Impression By: DR.BAGAR Janiya Butler D.O Telemetry interpretation: SR rate 72 Diagnosis, Assessment Plan Free Text DxA P Notes Free text DxA P notes: Patient presented with symptoms of CAD/chest pain. patient underwent successful CABG x 5 with ALAA. Patient does not appear fluid overloaded at this point. Renal function is WNL. Last TTE 2023 showed: Left ventricle: The cavity size is normal. Wall thickness is increased. Systolic function is normal. The estimated ejection fraction is 55-60%. Wall motion is normal; there are no regional wall motion abnormalities. Doppler parameters are consistent with abnormal left ventricular relaxation (grade 1 diastolic dysfunction). CAD status post CABG x5 (RICHARDS-LAD, Seq-diag, SVG-OM1, SVG-OM2, SVG-PDA) Meds- aspirin, plavix, Amiodarone, and statin BP 12s/70s SR rate 72 LE pitting edema bilaterally start lasix IV 40mg daily, per Dr Wood DM type 2 per PCP Non-healing left leg ulcer/osteomyelitis ID managing antibiotics Plan * Con't post CABG care * con't PT * discussed with Dr Wood, IV lasix 40mg daily Nathen Wood 05/03/23 1457: Attestations Physician Attestation Agree w/findings plan: Agree with the findings and plan as documented by DAVIN I have seen and examined this patient I have reviewed the history and repeated the quiñonez elements I have reviewed the progress in the clinical course since the last examination I have discussed the patient's condition with other members of the care team I have independently interpreted avaialble diagnostic studies (EKG CXR Echo Cardiac cath) * my personal evaluation is Patient is volume overloaded on physical exam CAD status post CABG x5 (RICHARDS-LAD, Seq-diag, SVG-OM1, SVG-OM2, SVG-PDA) Diabetes mellitus type 2 Nonhealing left leg ulcer/osteomyelitis IV Lasix for volume overload Continue DAPT with aspirin and Plavix Continue Lipitor Continue metoprolol Maintain MAP 70-90 Trend BMP, lactate I devoted my full attention for this service to the direct care of this patient Life threatening disease due to CAD-status post CABG during this admission Invasive hemodynamic monitoring Organ systems impaired or failing: Cardiac at 1412 at 1522 RPT #:[id number] END OF REPORT [facility] 2023-05-03 12:35:00 [facility] ([facility]) Infectious Dis. Progress Note REPORT#:[id number] REPORT STATUS: Signed REPORT INITIALIZATION DATE:05/03/23 TIME: 1235 PATIENT: JONG RIVAS UNIT #: [id number] ROOM/BED: [place] [address] : 66 AGE: 58 SEX: M ATTEND: Domenic Rainey MD ADM AUTHOR: Kirk Wakefield MD REPT SERVICE DT/TIME: 05/03/23 1235 * ALL edits or amendments must be made on the electronic/computer document * Subjective Chief complaint: Left-sided diabetic foot infection with osteomyelitis HPI: Remains in CVICU. Reports feeling okay and denies acute or new complaints currently. Wants to go home. No major overnight events. Objective General VS/I O: Vital Signs Date Temp Pulse Resp B/P B/P Mean Pulse Ox FiO2 05/02-05/03 98.6-98.7 68-90 16-44 101-173/59-95 79-122 92-99 21 Last Documented: Result Date Time Pulse Ox 95 05/03 0621 B/P 101/60 05/03 0621 B/P Mean 79 05/03 0621 Pulse 84 05/03 0621 Resp 31 05/03 0621 O2 Delivery Room air 05/02 2100 Temp 98.7 05/02 2000 FiO2 21 05/02 1527 O2 Flow Rate 0 05/01 1800 Vital Signs: Date Time Temp Pulse Resp B/P B/P Pulse O2 O2 Flow FiO2 Mean Ox Delivery Rate 05/03 0621 84 31 101/60 79 95 05/03 0601 90 31 05/03 0500 71 18 139/76 101 98 05/03 0400 70 20 148/69 99 95 05/03 0301 68 19 130/69 95 96 05/03 0200 68 20 117/59 82 95 05/03 0100 73 23 127/68 92 97 05/03 0000 80 16 154/75 106 92 05/02 2300 76 17 161/73 105 95 05/02 2200 74 21 162/95 122 94 05/02 2100 75 24 155/82 113 94 05/02 2100 97 Room air 05/02 2000 98.7 05/02 2000 75 23 173/82 118 96 05/02 1900 80 23 147/87 112 98 05/02 1745 80 27 98 05/02 1701 86 44 155/83 112 95 05/02 1700 83 42 94 05/02 1600 98.6 05/02 1600 72 23 127/61 87 99 05/02 1527 97 Room air 21 05/02 1500 70 17 165/82 116 93 05/02 1400 71 18 131/72 95 95 05/02 1300 70 19 148/79 107 92 24 hour I O ending at 0700: 05/03 0700 05/02 1900 Intake Total 500.00 Output Total 1200 800 Balance -700.00 -800 Intake, IV 250.00 Intake, Oral 250 Number 1 Bowel Movements Number Voids 3 2 Output, Urine 1200 800 Patient 107.8 kg Weight Weight Standing scale Measurement Method PATIENT WEIGHT: Weight (lb): 237 Weight (oz): 10.53 Weight (kg): 107.800 Physical Exam General appearance: alert, awake, no acute distress Cardiovascular: normal heart sounds, regular rate rhythm, no murmur Respiratory: clear to auscultation, symmetric expansion Abdomen: non-tender, soft, no distention Extremities: no cyanosis, left foot dressed; dressing clean, dry and intact; dressing not removed for exam bilateral legs pitting edema noted, pitting edema of legs noted 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 Rivas is a 58-year-old male with history of diabetes mellitus type 2, hypertension, prior smoking history, chronic PE, chronic left foot ulcer. He was admitted at [facility] with complaints of chest pain. He had a coronary angiogram done which showed multivessel CAD and EF of 50%. Patient also has a right lower lobe cavitary lung lesion, which is suspected to be from prior PE. TB QuantiFERON has been requested at the outside facility and was pending at the time of transfer. Infectious disease consultation is requested because patient has a chronic, nonhealing wound in the left lateral foot for last 7 to 8 months according to him. The wound is obviously infected and foul-smelling on exam. He had an MRI done at the outside facility, which shows osteomyelitis of the fifth metatarsal. Patient has a PICC line in place, from outside facility. I was able to review blood cultures, which were reportedly negative at 48 hours. He did have a urine culture positive for Pseudomonas. Other culture data is not available to me. Infectious disease consultation is requested for left-sided diabetic foot infection with osteomyelitis. Patient is being evaluated for possible CABG versus high risk PCI *Left-sided diabetic foot infection with osteomyelitis *Left foot cellulitis *Multivessel CAD, s/p CABG times 5 on 04/27/2023 *RLL cavitary lung lesion, question due to prior PE *Pseudomonas UTI, treated with cefepime *Diabetes mellitus type 2 *Hypertension *Peripheral neuropathy *Prior PE -Afebrile. -On room air now. -Normal WBC count on today's CBC. -ESR 106; CRP 77 on 05/02/2023 (previous values: ESR 87; CRP 25 on 04/21/2023). -Blood cultures 04/21/23 negative x 2. -MRSA screen negative. -Called [facility] earlier. Patient's blood cultures have been negative there. Wound culture is positive for MSSA and Pseudomonas ( pansensitive isolate). -Podiatry service is following. Patient is s/p left foot I D and fifth proximal phalanx and metatarsal head resection on 04/24/2023. -Surgical cultures with growth of Pseudomonas aeruginosa, alpha Streptococcus species, many Staphylococcus epidermidis, methicillin-resistant (MRSE) and also with growth of Enterococcus raffinosus (ampicillin sensitive). -S/p CABG times 5 on 04/27/2023. Plan: -Continue piperacillin-tazobactam 3.375 g IV every 8 hours, which would adequately cover Pseudomonas, alpha Strep, Enterococcus. -Continue doxycycline for MRSE coverage. -Continue local wound care. -Glycemic control. -Given osteomyelitis, would plan for a 6-week course of antibiotic treatment in total. -Patient is nonfunded and, therefore, would finish treatment with oral agents on discharge. Based on available sensitivities, a combination of Augmentin 875 mg PO BID + ciprofloxacin 500 mg PO BID + doxycycline 100 mg PO BID would provide adequate coverage, although with associated fluoroquinolone toxicities. -No objections to discharge from ID standpoint. -Patient has my clinic information and has been advised to follow-up with us as outpatient. -Patient has a right-sided PICC line, which would need to be discontinued upon discharge. CURRENT ANTIMICROBIALS: Doxycycline, started 04/27/2023 Piperacillin-tazobactam, started 04/28/2023 Tentative stop date of antimicrobials: 06/09/2023 (Previously on: Cefepime + metronidazole between 04/21/2023-04/27/2023) Consultants: cardiology, cardiovascular surgery, pulmonary at 1239 RPT #:[id number] END OF REPORT [facility] 2023-05-03 09:27:00 THIS REPORT HAS BEEN APPENDED [phone] [place] [address] PATIENT NAME: JONG RIVAS ADMIT DATE: 04/19/23 ACCOUNT NO: [id number] ROOM NO: 3343 AGE: 58 REPORT TYPE: eECHOCARDIOGRAM REPORT SEX: M ADMITTING PHYSICIAN:Domenic Rainey MD ATTENDING PHYSICIAN:Domenic Rainey MD *[address] [place] [id number] Limited Transthoracic Echocardiogram Patient: Jong Rivas Study Date: 05/02/2023 BP: 130 / 78 Location: [facility] URN: [id number] : 1965 Age: 58 Height: 69 in / 175.3 cm Gender: M Weight: 238.5 lb / 108.4 kg BMI/BSA: 35.3 kg/m 2 / 2.34 m 2 *Ordering Physician: * Viky Mclaughlin *Interpreting Physician: Noemí Aponte *Metal Extrusion Supervisor: Vera [place]la [facility] Indications: R/O EFFUSION. Study data: Transthoracic echocardiogram, limited study. Procedure: Transthoracic echocardiography was performed. Images were obtained using a [employer] cardiac ultrasound machine. Limited 2D and limited spectral Doppler. Location: ICU Patient status: Inpatient. Patient room number: 2201. Study status: Routine. Findings Left ventricle: Wall thickness is normal. Systolic function is normal. The estimated ejection fraction is 55-59%. Right ventricle: Systolic function is normal. Pericardium: There is no pericardial effusion. PATIENT NAME: JONG RIVAS Systemic veins: Inferior vena cava: The respirophasic diameter changes are in the normal range (= 50%). Measurements Left ventricle Value 2023 Ref MINA, LAX 4.8 cm 4.0 4.2 - 5.8 ESD, LAX 3.5 cm 2.7 2.5 - 4.0 ESD/bsa, 1.5 cm/m 2 1.1 1.3 LAX - 2.1 FS, LAX 28 % 33 25 - 43 PW, ED 1.1 cm 1.2 0.6 - 1.0 IVS/PW, ED 0.97 1.02 ---- EF 54 % 63 52 - 72 LVOT Value 2023 Ref Diam, S 2.12 cm 2.00 ---- Area 3.5 cm 2 3.1 ---- Peak ciera, -1.33 m/sec 1.04 ---- S Mean ciera, 0.91 m/sec 0.75 ---- S VTI, S 24.4 cm 26.5 ---- Peak grad, 7 mm Hg 4 ---- S Mean grad, 4 mm Hg 2 ---- S SV 86 ml 83 ---- Qs 19.23 L/min 5.38 ---- Qs/bsa 8.2 L/(min-m 2) 2.3 ---- SV/bsa 37 ml/m 2 36 ---- Ventricular septum Value 2023 Ref IVS, ED 1.0 cm 1.2 0.6 - 1.0 Right ventricle Value 2023 Ref MINA, LAX 3.7 cm 2.8 ---- TAPSE, MM 1.3 cm 2.6 1.7 - 3.1 PATIENT NAME: JONG RIVAS Left atrium Value 2023 Ref AP dim, ES 4.31 cm 3.77 3.00 - 4.00 Aortic valve Value 2023 Ref Peak v, S 2.21 m/sec 1.78 ---- Mean v, S 1.49 m/sec 1.28 ---- VTI, S 40.2 cm 35.4 ---- Mean grad, 10.2 mm Hg 7.1 ---- S Peak grad, 19.6 mm Hg 12.7 ---- S LVOT/AV, 0.61 0.75 ---- VTI ratio NADJA, VTI 2.13 cm 2 2.35 ---- NADJA, Vmax 2.12 cm 2 1.83 ---- Pulmonic valve Value 2023 Ref UT v, ED 2.24 m/sec 0.65 ---- UT grad, 20 mm Hg ---- ED Aortic root Value 2023 Ref Root diam 3.8 cm 2.8 <4.4 Conclusions Summary: 1. Left ventricle: Systolic function is normal. The estimated ejection fraction is 55-59%. 2. Pericardium, extracardiac: There is no pericardial effusion. Prepared and electronically signed by Noemí Nieto 05/03/2023 09:27 at 0927 SECTION 2 ADDENDUM 1: 07/06/23 0947 GCD.CPS *[facility] [address] [address] Limited Transthoracic Echocardiogram PATIENT NAME: JONG RIVAS (Report amended [id number]) Patient: Jong Rivas Study Date: 05/02/2023 BP: 130 / 78 Location: [facility] URN: [id number] : 1965 Age: 58 Height: 69 in / 175.3 cm Gender: M Weight: 238.5 lb / 108.4 kg BMI/BSA: 35.3 kg/m 2 / 2.34 m 2 *Ordering Physician: * Viky Mclaughlin *Interpreting Physician: * Job Guerrero MD *Metal Extrusion Supervisor: * Vera Gómez [facility] Indications: R/O EFFUSION. Study data: Transthoracic echocardiogram, limited study. Procedure: Transthoracic echocardiography was performed. Images were obtained using a [employer] cardiac ultrasound machine. Limited 2D and limited spectral Doppler. Location: ICU Patient status: Inpatient. Patient room number: 2201. Study status: Routine. Findings Left ventricle: Wall thickness is normal. Systolic function is normal. The estimated ejection fraction is 55-59%. Right ventricle: Systolic function is normal. Pericardium: There is no pericardial effusion. Systemic veins: Inferior vena cava: The respirophasic diameter changes are in the normal range (= 50%). Measurements Left ventricle Value 2023 Ref MINA, LAX 4.8 cm 4.0 4.2 - 5.8 ESD, LAX 3.5 cm 2.7 2.5 - 4.0 ESD/bsa, LAX 1.5 cm/m 2 1.1 1.3 - 2.1 FS, LAX 28 % 33 25 - 43 PW, ED 1.1 cm 1.2 0.6 - 1.0 IVS/PW, ED 0.97 1.02 EF 54 % 63 52 - 72 LVOT Value 2023 Ref Diam, S 2.12 cm 2.00 Area 3.5 cm 2 3.1 Peak ciera, S -1.33 m/sec 1.04 Mean ciera, S 0.91 m/sec 0.75 VTI, S 24.4 cm 26.5 PATIENT NAME: JONG RIVAS Peak grad, S 7 mm Hg 4 Mean grad, S 4 mm Hg 2 SV 86 ml 83 Qs 19.23 L/min 5.38 Qs/bsa 8.2 L/(min-m 2) 2.3 SV/bsa 37 ml/m 2 36 Ventricular septum Value 2023 Ref IVS, ED 1.0 cm 1.2 0.6 - 1.0 Right ventricle Value 2023 Ref MINA, LAX 3.7 cm 2.8 TAPSE, MM 1.3 cm 2.6 1.7 - 3.1 Left atrium Value 2023 Ref AP dim, ES 4.31 cm 3.77 3.00 - 4.00 Aortic valve Value 2023 Ref Peak v, S 2.21 m/sec 1.78 Mean v, S 1.49 m/sec 1.28 VTI, S 40.2 cm 35.4 Mean grad, S 10.2 mm Hg 7.1 Peak grad, S 19.6 mm Hg 12.7 LVOT/AV, VTI ratio 0.61 0.75 NADJA, VTI 2.13 cm 2 2.35 NADJA, Vmax 2.12 cm 2 1.83 Pulmonic valve Value 2023 Ref UT v, ED 2.24 m/sec 0.65 UT grad, ED 20 mm Hg Aortic root Value 2023 Ref Root diam 3.8 cm 2.8 <4.4 Conclusions Summary: 1. Left ventricle: Systolic function is normal. The estimated ejection fraction is 55-59%. 2. Pericardium, extracardiac: There is no pericardial effusion. Amended Job Guerrero MD 07/06/2023 09:46 PATIENT NAME: JONG RIVAS [facility] 2023-05-03 09:23:00 [facility] Cardiology Progress Note REPORT#:[id number] REPORT STATUS: Signed REPORT INITIALIZATION DATE:05/03/23 TIME: 922 PATIENT: JONG RIVAS UNIT #: [id number] ROOM/BED: [place] [address] : [birth year] AGE: 58 SEX: M ATTEND: Domenic Rainey MD ADM AUTHOR: Noemí Nieto MD REPT SERVICE DT/TIME: 05/03/23922 * ALL edits or amendments must be made on the electronic/computer document * Objective General VS/I O: 24 hour I O ending at 0700: 05/03 0700 05/02 1900 Intake Total 500.00 Output Total 1200 800 Balance -700.00 -800 Intake, IV 250.00 Intake, Oral 250 Number 1 Bowel Movements Number Voids 3 2 Output, Urine 1200 800 Patient 107.8 kg Weight Weight Standing scale Measurement Method Vital Signs: Date Time Temp Pulse Resp B/P B/P Pulse O2 O2 Flow FiO2 Mean Ox Delivery Rate 05/03 0621 84 31 101/60 79 95 05/03 0601 90 31 05/03 0500 71 18 139/76 101 98 05/03 0400 70 20 148/69 99 95 05/03 0301 68 19 130/69 95 96 05/03 0200 68 20 117/59 82 95 05/03 0100 73 23 127/68 92 97 05/03 0000 80 16 154/75 106 92 05/02 2300 76 17 161/73 105 95 05/02 2200 74 21 162/95 122 94 05/02 2100 75 24 155/82 113 94 05/02 2100 97 Room air 05/02 2000 98.7 05/02 2000 75 23 173/82 118 96 05/02 1900 80 23 147/87 112 98 05/02 1745 80 27 98 05/02 1701 86 44 155/83 112 95 05/02 1700 83 42 94 05/02 1600 98.6 05/02 1600 72 23 127/61 87 99 05/02 1527 97 Room air 21 05/02 1500 70 17 165/82 116 93 05/02 1400 71 18 131/72 95 95 05/02 1300 70 19 148/79 107 92 05/02 1200 98.4 05/02 1200 80 34 137/90 110 97 05/02 1120 97 Room air 21 05/02 1100 71 20 131/75 97 95 05/02 1000 77 17 157/82 112 92 05/02 0955 74 16 98 PATIENT WEIGHT: Weight (lb): 237 Weight (oz): 10.53 Weight (kg): 107.800 Medications: Active Meds + DC'd Last 24 Hrs Prednisone (predniSONE) 40 MG ONCE ONE PO (DC) Insulin Glargine (Semglee) 20 UNIT BEDTIME SUBQ Insulin Human Lispro (HUMALOG) 7 UNIT AC SUBQ Ipratropium [place] (ATROVENT) 500 MCG RTQ2H PRN PRN INH Cyanocobalamin (Vitamin B-12 500 mcg tab) 500 MCG DAILY PO Ferrous Sulfate (FERROUS SULFATE) 325 MG DAILY PO Mupirocin (BACTROBAN 2% 22 GM OINTMENT) 1 APPLIC BID NASAL Doxycycline Monohydrate (DOXYCYCLINE MONOHYDRATE) 100 MG Q12HR PO Insulin Human Lispro (HUMALOG) 0 AC HS SUBQ Bisacodyl (DULCOLAX) 10 MG ONCE PRN RECTAL Magnesium Hydroxide (MILK OF MAGNESIA) 30 ML ONCE PRN PO Atorvastatin Calcium (LIPITOR) 40 MG 2100 PO Dextrose/Water (DEXTROSE 10% IN WATER) 250 ML ASDIR PRN IV (CKD) Insulin Human Regular (HumuLIN R) 100 UNIT ASDIR IV (CKD) Sodium Chloride (SODIUM CHLORIDE 0.9%) 99 ML Benzonatate (TESSALON PERLE) 200 MG Q8H PRN PRN PO Piperacillin Sod/Tazobactam Sod (ZOSYN 3.375GM) 3.375 GM Q8H IV Sodium Chloride (SODIUM CHLORIDE 0.9% 100 ML) 100 ML Clopidogrel Bisulfate (Plavix) 75 MG DAILY PO Polyethylene Glycol (MIRALAX) 17 GM DAILY PO Docusate Sodium (COLACE) 100 MG BID PO Metoprolol Tartrate (LOPRESSOR) 12.5 MG Q12HR PO Sennosides (Senna Lax 8.6 MG TABLET) 17.2 MG BEDTIME PO Aspirin (ASPIRIN) 81 MG DAILY PO Pantoprazole (PROTONIX) 40 MG DAILY@0600 PO Amiodarone HCl (CORDARONE) 200 MG TID PO Acetaminophen (TYLENOL) 650 MG Q4H PRN PRN PO Acetaminophen (TYLENOL) 650 MG Q4H PRN PRN RECTAL Calcium Chloride (CALCIUM CHLORIDE) 1 GM ASDIR PRN IV Dextrose/Water (DEXTROSE 10% IN WATER) 125 ML ASDIR PRN IV (CKD) Dextrose/Water (DEXTROSE 10% IN WATER) 250 ML ASDIR PRN IV (CKD) Epinephrine (ADRENALIN CHLORIDE) 4 MG ASDIR IV Dextrose/Water (DEXTROSE 5% WATER) 246 ML Glucagon (GLUCAGON) 1 MG ASDIR PRN IM Magnesium Sulfate (MAGNESIUM SULFATE 4GM/SWFI 100ML) 100 ML ASDIR PRN IV Magnesium Sulfate (MAGNESIUM SULFATE 2GM/SWFI 50ML) 50 ML ASDIR PRN IV Magnesium Sulfate/Dextrose (MAGNESIUM SULFATE 1GM/D5W 100ML) 100 ML ASDIR PRN IV Nitroglycerin/Dextrose (NITROGLYCERIN 50,000MCG/D5W 250ML) 250 ML ASDIR IV Norepinephrine Bitartrate (NOREPINEPHRINE 8 MG/NS 250 ML) 250 ML TITRATE IV Ondansetron HCl (ZOFRAN) 4 MG Q6H PRN PRN IV Oxycodone HCl (ROXICODONE) 5 MG Q4H PRN PRN PO (DC) Oxycodone HCl (ROXICODONE) 10 MG Q4H PRN PRN PO (DC) Potassium Chloride (KCL 20MEQ/SWFI 100ML) 100 ML ASDIR PRN IV Sodium Bicarbonate (SODIUM BICARBONATE) 50 MEQ ASDIR PRN IV Sodium Chloride (SODIUM CHLORIDE 0.9%) 1,000 ML .Q20H IV Silver Sulfadiazine (SILVADENE 1% 50 GM CREAM) 1 APPLIC Q12HR TOPICAL Gabapentin (NEURONTIN) 200 MG TID PO Results Findings/Data: Laboratory Tests 05/03 05/02 05/02 05/02 0224 1929 1647 1140 Chemistry Sodium (134 - 147 mEq/L) 138 Potassium (3.4 - 5.0 mEq/L) 4.1 Chloride (100 - 108 mEq/L) 104 Carbon Dioxide (21 - 33 mEq/l) 28 Anion Gap (0 - 20) 10 BUN (7 - 25 mg/dL) 18 Creatinine (0.6 - 1.3 mg/dL) 1.0 Glomerular Filtr Rate (90 - 95) 87.8 L Glucose (77 - 141 mg/dL) 147 H POC Glucose (70 - 110 MG/DL) 160 H 109 151 H Calcium (8.0 - 10.5 mg/dL) 8.7 Magnesium (1.6 - 2.6 mg/dL) 1.72 Laboratory Tests 05/03 0224 Hematology WBC (4.5 - 11.0 x10 3/uL) 7.8 RBC (4.00 - 5.60 x10 6/uL) 3.06 L Hgb (12.5 - 16.9 g/dL) 9.1 L Hct (37.5 - 50.7 %) 27.9 L MCV (81.0 - 99.0 fL) 91.2 MCH (27.0 - 33.0 pg) 29.7 MCHC (33.0 - 37.0 g/dL) 32.6 L RDW (11.5 - 14.5 %) 13.2 Plt Count (150 - 400 x10 3/uL) 256 MPV (7.0 - 9.0 fL) 10.2 H Neut % (Auto) (56.0 - 77.0 %) 68.5 Lymph % (Auto) (14.0 - 32.0 %) 20.3 [place] % (Auto) (4.8 - 9.0 %) 7.8 Eos % (Auto) (0.3 - 3.7 %) 2.4 Baso % (Auto) (0.0 - 2.0 %) 0.4 Neut # (Auto) (2.0 - 7.6 x10 3/uL) 5.37 Lymph # (Auto) (1.0 - 3.8 x10 3/uL) 1.59 [place] # (Auto) (0.1 - 0.8 x10 3/uL) 0.61 Eos # (Auto) (0.0 - 0.2 x10 3/uL) 0.19 Baso # (Auto) (0.0 - 0.2 x10 3/uL) 0.03 Abs Immat Gran (auto) (0.00 - 0.03 x10 3/uL) 0.05 H Immature Gran % (0.0 - 2.0 %) 0.6 Nucleated RBC % (0 - 0 %) 0.0 Nucleated RBCs # (Man) (0.0 - 0.1 x10 3/uL) 0.00 Laboratory Tests 05/03 0224 Chemistry Magnesium (1.6 - 2.6 mg/dL) 1.72 Radiology data: Recent Impressions: ULTRASOUND - DUP VEIN ANALI 05/02 1132 Report Impression - Status: SIGNED Entered: 05/02/2023 1155 IMPRESSION: 1. No evidence of deep venous thrombosis within the visualized venous structures of bilateral lower extremities. Impression By: HelderSHDianna - Ramon Smiley M.D. RADIOLOGY - XR CHEST 1 V 05/03 0646 Report Impression - Status: SIGNED Entered: 05/03/2023 0824 IMPRESSION: No significant change compared to prior study. Postcardiac surgical changes and unchanged pulmonary vascular congestion. Mild atelectasis of the lung bases, left greater than right. Impression By: DR.BAGAR Janiya Butler D.O Free Text Obj Notes Free Text Obj Notes: GENERAL: Sitting in bedside chair, HEENT: Normocephalic, atraumatic NECK: JVP is raised LUNGS: Equal air entry bilaterally, normal vesicular breathing HEART: regular rate, normal S1 and S2, No murmurs, ABDOMEN: Soft, lax, non-tender, non-distended PERIPHERAL PULSES: 2+ dorsalis pedis pulses, left foot covered with dressing EXTREMITIES: +1 edema Diagnosis, Assessment Plan Consultants: cardiology, cardiovascular surgery, pulmonary Free Text DxA P Notes Free Text DxA P Notes: #NSTEMI #Severe multivessel CAD s/p CABG x6 with RICHARDS to LAD, sequential diagonal, SVG to ramus, SVG to OM, SVG to PDA, SVG to RPL, and amputation of the left atrial appendage. #Left foot diabetic foot infection with osteomyelitis S/P successful left foot fifth proximal phalanx and fifth metatarsal head resection on 04/25- on IV antibiotics per ID #Urinary tract infection #Hyperlipidemia #Diabetes mellitus-A1c 8.3 #Essential hypertension #Right lung cavitary lesion PLAN: -CABG work-up per CT surgery versus high risk PCI. -We will get arterial Doppler bilateral lower extremities to evaluate for PAD given left diabetic foot infection. -IV antibiotics per ID -Continue aspirin 81 mg daily. Increase atorvastatin from 40 mg to 80 mg nightly. Start metoprolol tartrate 12.5 mg twice daily. -Continue lisinopril 10 mg daily. 04/21/2023 -Patient seen and examined. Telemetry reviewed. Remains in sinus rhythm. Arterial duplex yesterday showed no evidence of any hemodynamically significant stenosis in the bilateral lower extremity arteries. LDL 92 mg/dL. Atorvastatin increased to 80 mg nightly yesterday. Continue aspirin 81 mg daily, lisinopril 10 mg daily, metoprolol tartrate 12.5 mg twice daily. ID on board for osteomyelitis. CT surgery on board for consideration of CABG. Timing will depend on treatment of foot infection. 04/22/2023: -Patient seen and examined. Telemetry reviewed. Remains in normal sinus rhythm. Increase metoprolol to tartrate to 25 mg twice daily. ID on board for osteomyelitis. Plan for CABG per CT surgery when medically stable and infection improved/resolved. Continue aspirin, high intensity atorvastatin, and lisinopril 10 mg daily. 04/25/2023: -Patient seen and examined. Telemetry reviewed. Remains in normal sinus rhythm. Underwent successful left foot fifth proximal phalanx and fifth metatarsal head resection yesterday. 6 weeks of IV antibiotic treatment plan per ID for osteomyelitis. Planning for CABG per CT surgery. No chest pain or shortness of breath currently. Continue aspirin 81 mg daily, atorvastatin 80 mg nightly, lisinopril 10 mg daily, and metoprolol tartrate 25 mg p.o. every 12 hourly. 04/26/2023: -Patient seen and examined. Telemetry reviewed. Remains in normal sinus rhythm. Plan for CABG likely next week per CT surgery. On IV antibiotics per ID. Denies any chest pain or shortness of breath. Continue aspirin 81 mg daily, atorvastatin 80 mg nightly, lisinopril 10 mg daily, and metoprolol tartrate 25 mg p.o. every 12 hourly. 04/27/2023: Patient seen and examined. Telemetry reviewed. In sinus rhythm. Plan for CABG next week per CT surgery. On IV cefepime and Flagyl per ID. Continue aspirin 81 mg daily, atorvastatin 80 mg nightly, lisinopril 10 mg daily, and metoprolol tartrate 25 mg p.o. every 12 hourly. 04/28/2023-postoperative day 1: -Patient seen and examined in CVICU. Telemetry reviewed. Remains in sinus rhythm. Underwent successful CABG x6 yesterday and amputation of left atrial appendage. Extubated successfully. Currently off pressors. Has a mediastinal and left chest tube with minimal output this morning. Not on any pressors. Advanced heart failure team consulted. Continue aspirin 81 mg daily, Plavix 75 mg daily, metoprolol tartrate 12.5 mg every 12 hourly, high intensity atorvastatin, and amiodarone 200 mg 3 times daily. 04/29/2023-postoperative day 2: -Patient seen and examined. Telemetry reviewed. Remains in sinus rhythm with occasional epicardial pacing noted yesterday evening. Appears volume overloaded today. Ported shortness of breath overnight. We will give Lasix 40 mg IV once. Advanced heart failure team on board. Continue aspirin 81 mg daily, Plavix 75 mg daily, metoprolol tartrate 12.5 mg every 12 hourly, high intensity atorvastatin and amiodarone 200 mg 3 times daily. 05/02/2023-Postoperative day 5: -Patient seen and examined. Telemetry reviewed. Remains in sinus rhythm. Chest tubes removed over the weekend. Epicardial pacing wires removed today. On IV antibiotics per ID. Continue aspirin 81 mg daily, Plavix 75 mg daily, metoprolol tartrate 12.5 mg every 12 hourly, high intensity atorvastatin and amiodarone 200 mg 3 times daily. Switch amiodarone to 200 mg once a day upon discharge. 05/03/2023-postoperative day 6: -Patient seen and examined. Telemetry reviewed. In sinus rhythm. Epicardial pacing wires removed and echocardiogram showed no pericardial effusion with normal EF. Appears volume overloaded. Diuresis per advanced heart failure team. Continue aspirin 81 mg daily, Plavix 75 mg daily, metoprolol tartrate 12.5 mg every 12 hourly, high intensity atorvastatin and amiodarone 200 mg 3 times daily. Switch amiodarone to 200 mg once a day upon discharge. at 0931 at 0310 RPT #:[id number] END OF REPORT [facility] 2023-05-03 06:53:00 [facility]) Cardiothoracic Surgery Prog REPORT#:[id number] REPORT STATUS: Signed REPORT INITIALIZATION DATE:05/03/23 TIME: 652 PATIENT: JONG RIVAS UNIT #: [id number] ROOM/BED: [place] [address] : 66 AGE: 58 SEX: M ATTEND: Domenic Rainey MD ADM AUTHOR: Viky Mclaughlin Physic REPT SERVICE DT/TIME: 05/03/23 0653 * ALL edits or amendments must be made on the electronic/computer document * General Post-op: day 6 Status post: 04/27/23 CABG x 5 (RICHARDS-LAD, Seq-diag, SVG-OM1, SVG-OM2, SVG-PDA) EVH (LGSV) ALAA Subjective Chief complaint: Postop CABG Currently no complaints, resting comfortable Review of Systems Constitutional: Reports: fatigue. Skin: Denies: bruising, contusion, diaphoresis, ecchymosis. Allergy/Immun: Denies: allergic reaction, itching, rhinorrhea, sneezing. Eyes: Denies: redness, discharge, visual loss/blurred. ENT: Denies: throat pain, throat swelling, tongue pain, tongue swelling, toothache. Respiratory: Reports: MENDES (dyspnea on exertion). Denies: SOB, wheezing. Cardiovascular: Denies: chest pain, edema, orthopnea, palpitations. GI: Denies: abdominal pain, nausea, vomiting. : Denies: dysuria, flank pain. Musculoskeletal: Denies: extremity pain, extremity swelling. Psych: Denies: agitation, anxiety, auditory hallucination, visual hallucination. All systems rev neg: except as marked Objective General VS/I O Last Documented: Result Date Time Pulse Ox 95 05/03 621 B/P 101/60 05/03 621 B/P Mean 79 05/03 621 Pulse 84 05/03 621 Resp 31 05/03 621 O2 Delivery Room air 05/02 2100 Temp 98.7 05/02 2000 FiO2 21 05/02 1527 O2 Flow Rate 0 05/01 1800 24 hour I O ending at 0700: 05/03 0700 05/02 1900 Intake Total 500.00 Output Total 1200 800 Balance -700.00 -800 Intake, IV 250.00 Intake, Oral 250 Number 1 Bowel Movements Number Voids 3 2 Output, Urine 1200 800 Patient 107.8 kg Weight Weight Standing scale Measurement Method PATIENT WEIGHT: Weight (lb): 237 Weight (oz): 10.53 Weight (kg): 107.800 Physical Exam General appearance: alert, awake, oriented Wound/incision: Location: Left foot toe amputation HEENT: anicteric, mucosal membranes moist, pupils reactive to light Neck: full range of motion, non-tender Cardiovascular: normal heart sounds, regular rate rhythm Respiratory: aerating well, clear to auscultation, symmetric expansion, no distress Abdomen: soft, non-tender Genitourinary: no bladder distention, no flank pain Extremities: dry, moves all, normal capillary refill, normal temperature Musculoskeletal: full range of motion, painless range of motion 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 Patient transferred from [facility], referred to us from Dr. Forde for acute coronary syndrome, unstable angina, ischemic heart disease status post coronary angiogram, with findings of multivessel CAD, EF 50%. Upon further chart review patient found to have chronic cavitary lung lesion on CT chest pending QuantiFERON, left lower extremity diabetic foot ulcer concerning for osteomyelitis MRI done at [place] and will upload imaging, foot wound culture with pseudomonas, UTI with urine culture Pseudomonas treated with cefepime. Patient reports dyspnea on exertion and mild chest pain x1 year. 04/18/23: Coronary angiogram done at [facility] Left main patent LAD with high-grade and tortuous calcified lesion just after the first diagonal estimated 95% stenosis first diagonal branch with severe calcified disease 99% Ramus 90 to 95% stenosis, left circumflex artery 99% proximal stenosis OM branches severe disease as well. RCA 90%. LVEDP 11 mmHg and angiography demonstrated preserved LV systolic function, EF 50%. Inferior wall demonstrated mild hypokinesis. 1-2+ MR on LV angio. RICHARDS patent Carotid angiogram, patent carotids Assessment: CAD, severe multivessel Left foot nonhealing foot ulcer Chronic cavitary lesion noted on CT chest UTI Pseudomonas 2023 Patient seen and evaluated by Dr. Rainey CABG eval underway -Consult pulmonology, cardiology, wound care -Lovenox DVT prophylaxis Continue supportive care Further recommendations to follow 04/21/2023 CABG eval underway Patient sitting up in bed, room air, no distress. No complaints Patient with multiple complex medical issues ongoing. Timing of major CV surgery pending medical optimization. We will discuss patient at high risk CV Case conference on Tuesday. -Continue supportive care Seen and examined by Dr. Rainey 04/23/2023 CABG eval underway Patient sitting up in bed, room air, no distress. No complaints Patient with multiple complex medical issues ongoing. Timing of major CV surgery pending medical optimization. Left foot MRI complete with fifth MTP effusion/possible septic arthritis with osteomyelitis changes, no drainable soft tissue abscess. -Amputation left fifth toe and metatarsal scheduled by podiatry for tomorrow -Blood cultures 04/21/2023 no growth after 24-hour -UA negative -Lovenox DVT prophylaxis Continue supportive care Further recommendations to follow 04/24/2023 CABG eval underway Patient sitting up in bed, room air, no distress. No complaints -Amputation left fifth toe and metatarsal scheduled by podiatry for today -Blood cultures 04/21/2023 no growth after 48-hour -follow tissue culture Continue supportive care Further recommendations to follow 04/25/2023 CABG eval underway, plan for OR likely next week to allow patient some time to recover from amputation. Patient sitting up in bed, room air, no distress. No complaints S/P Amputation left fifth toe and metatarsal -Blood cultures 04/21/2023 no growth after 72-hour Encourage OOBTC, IS, PT/OT Continue supportive care Further recommendations to follow 04/26/2023 CABG eval underway, plan for OR likely next week to allow patient some time to recover from amputation. Patient sitting up in bed, room air, no distress. No complaints S/P Amputation left fifth toe and metatarsal -Blood cultures 04/21/2023 no growth after 72-hour Encourage OOBTC, IS, PT/OT Continue supportive care Further recommendations to follow 04/27/23 Patient resting comfortable. Denies complaints AAO x 3 respiratory spi: on room air. Remains sinus rhythm ID following - CABG after 04/27/23 completed ABX Carotid Dopplers showed less than 50% stenosis. Vein mapping complete CT of the chest completed Consider surgery this afternoon. Will stephanie NPO. Patient seen and Examined with Dr. Rainey. STS score calculated. 0.8% Coronary bypass graft surgery was discussed with the patient. The risk of the operation including the STS score, risk of bleeding, infection, , heart attack, stroke, prolonged ICU stay, renal failure, dialysis, need for long-term rehabilitation etc. was discussed with the patient. The patient's questions were answered and the patient agreed to proceed with surgery. 04/27/23 1. Coronary artery bypass graft surgery x5 (RICHARDS to LAD, sequential to diagonal, saphenous vein to first marginal, saphenous vein to second marginal, saphenous vein to PDA). 2. Amputation of left atrial appendage. 3. Posterior pericardiotomy. 4. Endoscopic vein harvest (left greater saphenous vein). 04/28/23 On room air. POD 1 AAOx3 Patient reports pain controlled. Respiratory: on room air. Encourage IS, Deep Breathing, CXR reviewed, CT outputs- Re-access after walking. Cardiac: Remains sinus rhythm, pacing wires on standby GI: Tolerating diet, passing gas. Continue Bowel regimen : Walton in place. UO:650 Continue PT/OT Disposition: Patient lives alone. We will consult rehab. Patient DVT prophylaxis, SCDs in place Labs reveiwed- replace electrolytes as needed Patient seen and examined by Dr. Rainey. Plan of care discussed with multidisciplinary team Continue supportive care. 04/29/23 On room air. POD 2 AAOx3 Patient reports pain controlled. Respiratory: on room air. Encourage IS, Deep Breathing, CXR reviewed, Cardiac: Remains sinus rhythm, pacing wires on standby GI: Tolerating diet, passing gas. Continue Bowel regimen : Walton in place. Will DC Walton later today UO:580, 40 Lasix ordered today. Continue PT/OT out of bed walking with PT today. Disposition: Patient lives alone. We will consult rehab. Patient DVT prophylaxis, SCDs in place Labs reveiwed- replace electrolytes as needed Plan of care discussed with multidisciplinary team Continue supportive care. 04/30/23 POD 3 AAOx3 Patient reports pain controlled. Respiratory: on room air. ALL CT out. Encourage IS, Deep Breathing, CXR reviewed, Cardiac: Remains sinus rhythm, pacing wires on standby GI: Tolerating diet,+ BM. Continue Bowel regimen UO: 1740 Continue PT/OT out of bed walking with PT today. Disposition: Patient lives alone. Rehab consulted however Patient walked 400 feet yesterday DVT prophylaxis, SCDs in place Labs reveiwed- replace electrolytes as needed Plan of care discussed with multidisciplinary team Continue supportive care. ABX as per ID recommendations. Making good progress., Patient was seen and examined with Dr. Prince 05/01/23 POD 4 AAOx3 Patient reports pain controlled. Respiratory: on room air. ALL CT out., Encourage IS, Deep Breathing, CXR reviewed, Cardiac: Remains sinus rhythm, pacing wires on standby GI: Tolerating diet,+ BM yesterday. Continue Bowel regimen UO: 1450 Continue PT/OT out of bed walking with PT today. Disposition: Patient lives alone. Rehab consulted however Patient walked 400 feet yesterday DVT prophylaxis, SCDs in place Labs reveiwed- replace electrolytes as needed Plan of care discussed with multidisciplinary team ABX as per ID recommendations. Give Lasix today, Continuie 05/02/23 POD 5 AAOx3 Patient reports pain controlled. Respiratory: on room air. ALL CT out., Encourage IS, Deep Breathing, CXR reviewed, Cardiac: Remains sinus rhythm, pacing wires on standby GI: Tolerating diet,+ BM Continue Bowel regimen UO: 2500 Continue PT/OT out of bed walking with PT today. Disposition: home DVT prophylaxis, SCDs in place Labs reveiwed- replace electrolytes as needed Plan of care discussed with multidisciplinary team ABX as per ID recommendations. Switch to PO? DVT studies negative Home Tomorrow? 05/03/23 POD 6 AAOx3 Patient reports pain controlled. Respiratory: on room air. ALL CT out., Encourage IS, Deep Breathing, CXR reviewed, Cardiac: Remains sinus rhythm, pacing wires dc'd yesterday, Pending echo report. GI: Tolerating diet,+ BM Continue Bowel regimen Patient has been out of bed walking Disposition: home DVT prophylaxis, SCDs in place Labs reveiwed- replace electrolytes as needed Plan of care discussed with multidisciplinary team ABX as per ID recommendations. Switch to PO upon discharge. DVT studies negative Patient seen and examined by Dr. Rainey. We will give additional Lasix this afternoon. Consider home tomorrow. Consultants: cardiology, cardiovascular surgery, pulmonary at 1508 at 1050 RPT #:[id number] END OF REPORT [facility] 2023-05-02 15:04:00 [facility] ([facility] Heart Failure Progress Note REPORT#:[id number] REPORT STATUS: Signed REPORT INITIALIZATION DATE:05/02/23 TIME: 150 PATIENT: JONG RIVAS UNIT #: [id number] ROOM/BED: [place] [id number] : 66 AGE: 58 SEX: M ATTEND: Domenic Rainey MD ADM AUTHOR: Domingo Irving COPPER PLATER REPT SERVICE DT/TIME: 05/02/23 1504 * ALL edits or amendments must be made on the electronic/computer document * See Addendum Domingo Irving 05/02/23 1504: Subjective HPI: This is a 58 year old male with a past medical history of DM type II, hypertension PE on anticoagulation, right lung lesion, and hypertension that presented initially to [facility] as an NSTEMI, he underwent angiogram and transffered to [facility] after patient was found to have multivessel CAD. The patient underwent CABG x 5 (04/27/2023) and is now recovering. Echocardiogram was performe and showed EF 50-55% with grade I diastolic dysfunction. We were asked to evaluate and make recommendations from a heart failure standpoint. Currently, the patient sitting in chair, reports post op pain better today. Reports didn't sleep well last night, no sig issues. Dr Wood answered questions and explained Objective General VS/I O: Vital Signs Date Temp Pulse Resp B/P B/P Mean Pulse Ox FiO2 05/01-05/02 98.0-99.3 73-96 12-46 108-162/60-102 81-114 94-98 21 24 hour I O ending at 0700: 05/02 0700 05/01 1900 Intake Total 393.20 1751.80 Output Total 400 2500 Balance -6.80 -748.20 Intake, IV 143.20 341.80 Intake, Oral 250 1410 Intake, Oral 0 Supplement Output, Urine 400 2500 Patient 239 lb 186 lb Weight Weight Standing scale Bed scale Measurement Method PATIENT WEIGHT: Weight (lb): 238 Weight (oz): 15.7 Weight (kg): 108.400 Medications: Medication(s) Ordered: Anti-Infective Agents Sig/Katie Start time Last Medication Dose Route Stop Time Status Admin Doxycycline 100 MG Q12HR 04/29 2100 AC 05/02 Monohydrate PO 06/09 2059 0803 Piperacillin Sod/ 3.375 GM Q8H 04/28 1100 AC 05/02 Tazobactam Sod IV 06/09 1059 1150 Sodium Chloride 100 ML Autonomic Drugs Sig/Katie Start time Last Medication Dose Route Stop Time Status Admin Ipratropium [place] 500 MCG RTQ2H PRN PRN 04/30 143 AC INH 07/29 1437 Epinephrine 4 MG ASDIR 04/27 1445 AC Dextrose/Water 246 ML IV 07/26 1444 Norepinephrine 250 ML TITRATE 04/27 144 AC Bitartrate IV 07/26 1444 Blood Formation,Coagulation Sig/Katie Start time Last Medication Dose Route Stop Time Status Admin Ferrous Sulfate 325 MG DAILY 04/30 900 AC 05/02 PO 07/29 0859 0802 Clopidogrel Bisulfate 75 MG DAILY 04/28 900 AC 05/02 PO 07/27 0859 0802 Cardiovascular Drugs Sig/Katie Start time Last Medication Dose Route Stop Time Status Admin Atorvastatin Calcium 40 MG 04/28 AC 05/01 PO 05/28 2059 1939 Metoprolol Tartrate 12.5 MG Q12HR 04/27 2100 AC 05/02 PO 07/26 2059 0802 Amiodarone HCl 200 MG TID 04/27 1500 AC 05/02 PO 07/26 1459 0803 Nitroglycerin/ 250 ML ASDIR 04/27 144 AC Dextrose IV 07/26 1444 Central Nervous System Agents Sig/Katie Start time Last Medication Dose Route Stop Time Status Admin Magnesium Sulfate 50 ML ONCE ONE 05/01 1845 DC IV 05/01 204 Aspirin 81 MG DAILY 04/27 2038 AC 05/02 PO 07/26 2037 0802 Acetaminophen 650 MG Q4H PRN PRN 04/27 1445 AC 05/01 PO 07/26 1444 0552 Acetaminophen 650 MG Q4H PRN PRN 04/27 1445 AC RECTAL 07/26 1444 Magnesium Sulfate 100 ML ASDIR PRN 04/27 1445 AC IV 07/26 1444 Magnesium Sulfate 50 ML ASDIR PRN 04/27 1445 AC 05/02 IV 07/26 1444 0317 Magnesium Sulfate/ 100 ML ASDIR PRN 04/27 1445 AC 05/01 Dextrose IV 07/26 1444 0307 Oxycodone HCl 5 MG Q4H PRN PRN 04/27 1445 DC 05/01 PO 05/02 1444 0553 Oxycodone HCl 10 MG Q4H PRN PRN 04/27 1445 DC 04/29 PO 05/02 1444 2339 Gabapentin 200 MG TID 04/20 1500 AC 05/02 PO 07/19 1459 0801 Electrolytic, Caloric, And Alen Sig/Katie Start time Last Medication Dose Route Stop Time Status Admin Potassium Chloride 20 MEQ ONCE ONE 05/01 1600 DC 05/01 PO 05/01 1601 1608 Dextrose/Water 250 ML ASDIR PRN 04/28 1830 CKD IV 07/27 1829 Calcium Chloride 1 GM ASDIR PRN 04/27 1445 AC IV 07/26 1444 Dextrose/Water 125 ML ASDIR PRN 04/27 1445 CKD IV 07/26 1444 Dextrose/Water 250 ML ASDIR PRN 04/27 1445 CKD IV 07/26 1444 Potassium Chloride 100 ML ASDIR PRN 04/27 1445 AC 04/30 IV 07/26 1444 2111 Sodium Bicarbonate 50 MEQ ASDIR PRN 04/27 1445 AC IV 07/26 1444 Sodium Chloride 1,000 ML .Q20H 04/27 1445 AC 04/28 IV 07/26 1444 0341 Gastrointestinal Drugs Sig/Katie Start time Last Medication Dose Route Stop Time Status Admin Bisacodyl 10 MG ONCE PRN 04/29 1200 AC RECTAL 07/28 1159 Magnesium Hydroxide 30 ML ONCE PRN 04/29 1200 AC PO Polyethylene Glycol 17 GM DAILY 04/28 0900 AC 05/02 PO 07/27 0859 0801 Docusate Sodium 100 MG BID 04/27 2100 AC 05/02 PO 07/26 2059 0802 Sennosides 17.2 MG BEDTIME 04/27 2100 AC 05/01 PO 07/26 205 1940 Pantoprazole 40 MG DAILY@0600 04/27 1600 AC 05/02 PO 07/26 1559 0602 Ondansetron HCl 4 MG Q6H PRN PRN 04/27 1445 AC IV 07/26 1444 Hormones And Synthetic Substit Sig/Katie Start time Last Medication Dose Route Stop Time Status Admin Prednisone 40 MG ONCE ONE 05/02 1415 DC PO 05/02 1416 Insulin Glargine 20 UNIT BEDTIME 05/01 2100 AC 05/01 SUBQ 07/30 2058 194 Insulin Human Lispro 7 UNIT AC 05/01 1630 AC 05/02 SUBQ 07/30 162 1150 Insulin Human Lispro 0 AC HS 04/29 2100 AC 05/02 SUBQ 07/28 2058 1149 Insulin Human Regular 100 UNIT ASDIR 04/28 1830 CKD Sodium Chloride 99 ML IV 07/27 1829 Glucagon 1 MG ASDIR PRN 04/27 1445 AC IM 07/26 1444 Respiratory Tract Agents Sig/Katie Start time Last Medication Dose Route Stop Time Status Admin Benzonatate 200 MG Q8H PRN PRN 04/28 1745 AC 05/02 PO 07/27 1744 0232 Skin And Mucous Membrane Agent Sig/Katie Start time Last Medication Dose Route Stop Time Status Admin Mupirocin 1 APPLIC BID 04/30 900 AC 05/02 NASAL 05/04 2101 0804 Silver Sulfadiazine 1 APPLIC Q12HR 04/22 2100 AC 05/02 TOPICAL 07/21 205 0946 Vitamins Sig/Katie Start time Last Medication Dose Route Stop Time Status Admin Cyanocobalamin 500 MCG DAILY 04/30 900 AC 05/02 PO 07/29 0859 0802 Physical Exam General appearance: alert, awake, oriented, no acute distress, pleasant, conversational, no respiratory distress Cardiovascular: regular rate and rhythm, no ectopy Respiratory: no distress Abdomen: soft, non-tender 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, oriented X 3, normal speech Skin: dry Psychiatry: normal affect, normal judgment/insight, normal mood Results Findings/data: 05/02/23 0205: [Embedded Image Not Available] 05/01/23 1520: [Embedded Image Not Available] 05/01/23 0203: [Embedded Image Not Available] 04/30/23 1857: [Embedded Image Not Available] Laboratory Tests Test Result Date Time Chemistry B-Natriuretic Peptide (0 - 100 PG/ML) 159.0 H 04/20 0315 Recent Impressions: RADIOLOGY - XR CHEST 1 V 05/02 0500 Report Impression - Status: SIGNED Entered: 05/02/2023 0828 IMPRESSION: No significant change from the prior Impression By: [email or web address] - Anu Amador M.D. ULTRASOUND - DUP VEIN ANALI 05/02 1132 Report Impression - Status: SIGNED Entered: 05/02/2023 1155 IMPRESSION: 1. No evidence of deep venous thrombosis within the visualized venous structures of bilateral lower extremities. Impression By: [email or web address] - Ramon Smiley M.D. Results: labs reviewed, vital signs reviewed, rhythm personally rev'd, current med profile rev'd Telemetry interpretation: SR rate 71 Diagnosis, Assessment Plan Free Text DxA P Notes Free text DxA P notes: Patient presented with symptoms of CAD/chest pain. patient underwent successful CABG x 5 with ALAA. Patient does not appear fluid overloaded at this point. Renal function is WNL. Last TTE 2023 showed: Left ventricle: The cavity size is normal. Wall thickness is increased. Systolic function is normal. The estimated ejection fraction is 55-60%. Wall motion is normal; there are no regional wall motion abnormalities. Doppler parameters are consistent with abnormal left ventricular relaxation (grade 1 diastolic dysfunction). CAD status post CABG x5 (RICHARDS-LAD, Seq-diag, SVG-OM1, SVG-OM2, SVG-PDA) Meds- aspirin, plavix, Amiodarone, and statin BP 130s/70s SR rate 71 post op pain- well controlled DM type 2 per PCP Non-healing left leg ulcer/osteomyelitis ID managing antibiotics Plan * Con't post CABG care * con't PT * recommend IV lasix as needed Nathen Wood 05/03/23 1419: Attestations Physician Attestation Agree w/findings plan: Agree with the findings and plan as documented by DAVIN I have seen and examined this patient I have reviewed the history and repeated the quioñnez elements I have reviewed the progress in the clinical course since the last examination I have discussed the patient's condition with other members of the care team I have independently interpreted avaialble diagnostic studies (EKG CXR Echo Cardiac cath) * my personal evaluation is Patient is volume overloaded on physical exam CAD status post CABG x5 (RICHARDS-LAD, Seq-diag, SVG-OM1, SVG-OM2, SVG-PDA) Diabetes mellitus type 2 Nonhealing left leg ulcer/osteomyelitis Recommend IV Lasix for volume overload Continue DAPT with aspirin and Plavix Continue Lipitor Continue metoprolol Maintain MAP 70-90 Trend BMP, lactate I devoted my full attention for this service to the direct care of this patient and time devoted to teaching and other procedures is not included. Total time spent providing critical care (non-overlapping/non-continuous time): 35 minutes Life threatening disease due to CAD-status post CABG during this admission Invasive hemodynamic monitoring Organ systems impaired or failing: Cardiac at 1511 at 1438 Addendum 1: 05/02/23 1522 by Domingo Irving NP IVC per ECHO this AM was 2.5 at 1523 RPT #:[id number] END OF REPORT [facility] 2023-05-02 14:00:00 [facility] Critical Care Progress Note REPORT#:[id number] REPORT STATUS: Signed REPORT INITIALIZATION DATE:05/02/23 TIME: 1399 PATIENT: JONG RIVAS UNIT #: [id number] ROOM/BED: [place] [address] : 66 AGE: 58 SEX: M ATTEND: Domenic Rianey MD ADM AUTHOR: Carole Mccauley MD REPT SERVICE DT/TIME: 05/02/23 1400 * ALL edits or amendments must be made on the electronic/computer document * See Addendum Subjective Chief complaint: CABG x 5 (RICHARDS-LAD, Seq-diag, SVG-OM1, SVG-OM2, SVG-PDA) EVH (LGSV) YULIA HPI: 58-year-old male, poor historian, PMHx diabetes on metformin, neuropathy, HTN, former smoker, chronic nonhealing left foot ulcer at the fifth metatarsal located posterior lateral found to have multivessel CAD underwent CABG x5 today. Patient received 1200 cc crystalloid, 450 Cell Saver. EBL was 300. Urine output was 400. On arrival to ICU patient was off pressors. He was on insulin 3 units drip. Patient was intubated on ventilatory support. [address] Comments: Interval history- hemodynamically stable Objective General VS/I O Last Documented: Result Date Time Pulse Ox 97 05/02 1120 FiO2 21 05/02 1120 O2 Delivery Room air 05/02 1120 Pulse 74 05/02 0955 Resp 16 05/02 0955 B/P 130/78 05/02 0900 B/P Mean 98 05/02 0900 Temp 36.9 05/02 0800 O2 Flow Rate 0 05/01 1800 24 hour I O ending at 0700: 05/02 0700 05/01 1900 Intake Total 393.20 1751.80 Output Total 400 2500 Balance -6.80 -748.20 Intake, IV 143.20 341.80 Intake, Oral 250 1410 Intake, Oral 0 Supplement Output, Urine 400 2500 Patient 108.4 kg 84.4 kg Weight Weight Standing scale Bed scale Measurement Method PATIENT WEIGHT: Weight (lb): 238 Weight (oz): 15.7 Weight (kg): 108.400 Medications: Active Meds + DC'd Last 24 Hrs Prednisone (predniSONE) 40 MG ONCE ONE PO (DC) Insulin Glargine (Semglee) 20 UNIT BEDTIME SUBQ Magnesium Sulfate (MAGNESIUM SULFATE 2GM/SWFI 50ML) 50 ML ONCE ONE IV ( DC) Insulin Human Lispro (HUMALOG) 7 UNIT AC SUBQ Potassium Chloride (POTASSIUM CHLORIDE 20MEQ TAB.ER) 20 MEQ ONCE ONE PO (DC) Insulin Glargine (Semglee) 18 UNIT BEDTIME SUBQ (DC) Ipratropium [place] (ATROVENT) 500 MCG RTQ2H PRN PRN INH Cyanocobalamin (Vitamin B-12 500 mcg tab) 500 MCG DAILY PO Ferrous Sulfate (FERROUS SULFATE) 325 MG DAILY PO Mupirocin (BACTROBAN 2% 22 GM OINTMENT) 1 APPLIC BID NASAL Doxycycline Monohydrate (DOXYCYCLINE MONOHYDRATE) 100 MG Q12HR PO Insulin Human Lispro (HUMALOG) 0 AC HS SUBQ Insulin Human Lispro (HUMALOG) 5 UNIT AC SUBQ (DC) Bisacodyl (DULCOLAX) 10 MG ONCE PRN RECTAL Magnesium Hydroxide (MILK OF MAGNESIA) 30 ML ONCE PRN PO Atorvastatin Calcium (LIPITOR) 40 MG 2100 PO Dextrose/Water (DEXTROSE 10% IN WATER) 250 ML ASDIR PRN IV (CKD) Insulin Human Regular (HumuLIN R) 100 UNIT ASDIR IV (CKD) Sodium Chloride (SODIUM CHLORIDE 0.9%) 99 ML Benzonatate (TESSALON PERLE) 200 MG Q8H PRN PRN PO Piperacillin Sod/Tazobactam Sod (ZOSYN 3.375GM) 3.375 GM Q8H IV Sodium Chloride (SODIUM CHLORIDE 0.9% 100 ML) 100 ML Clopidogrel Bisulfate (Plavix) 75 MG DAILY PO Polyethylene Glycol (MIRALAX) 17 GM DAILY PO Docusate Sodium (COLACE) 100 MG BID PO Metoprolol Tartrate (LOPRESSOR) 12.5 MG Q12HR PO Sennosides (Senna Lax 8.6 MG TABLET) 17.2 MG BEDTIME PO Aspirin (ASPIRIN) 81 MG DAILY PO Pantoprazole (PROTONIX) 40 MG DAILY@0600 PO Amiodarone HCl (CORDARONE) 200 MG TID PO Acetaminophen (TYLENOL) 650 MG Q4H PRN PRN PO Acetaminophen (TYLENOL) 650 MG Q4H PRN PRN RECTAL Calcium Chloride (CALCIUM CHLORIDE) 1 GM ASDIR PRN IV Dextrose/Water (DEXTROSE 10% IN WATER) 125 ML ASDIR PRN IV (CKD) Dextrose/Water (DEXTROSE 10% IN WATER) 250 ML ASDIR PRN IV (CKD) Epinephrine (ADRENALIN CHLORIDE) 4 MG ASDIR IV Dextrose/Water (DEXTROSE 5% WATER) 246 ML Glucagon (GLUCAGON) 1 MG ASDIR PRN IM Magnesium Sulfate (MAGNESIUM SULFATE 4GM/SWFI 100ML) 100 ML ASDIR PRN IV Magnesium Sulfate (MAGNESIUM SULFATE 2GM/SWFI 50ML) 50 ML ASDIR PRN IV Magnesium Sulfate/Dextrose (MAGNESIUM SULFATE 1GM/D5W 100ML) 100 ML ASDIR PRN IV Nitroglycerin/Dextrose (NITROGLYCERIN 50,000MCG/D5W 250ML) 250 ML ASDIR IV Norepinephrine Bitartrate (NOREPINEPHRINE 8 MG/NS 250 ML) 250 ML TITRATE IV Ondansetron HCl (ZOFRAN) 4 MG Q6H PRN PRN IV Oxycodone HCl (ROXICODONE) 5 MG Q4H PRN PRN PO Oxycodone HCl (ROXICODONE) 10 MG Q4H PRN PRN PO Potassium Chloride (KCL 20MEQ/SWFI 100ML) 100 ML ASDIR PRN IV Sodium Bicarbonate (SODIUM BICARBONATE) 50 MEQ ASDIR PRN IV Sodium Chloride (SODIUM CHLORIDE 0.9%) 1,000 ML .Q20H IV Sodium Chloride (SODIUM CHLORIDE 0.9%) 250 ML Q24H IV (DC) Silver Sulfadiazine (SILVADENE 1% 50 GM CREAM) 1 APPLIC Q12HR TOPICAL Gabapentin (NEURONTIN) 200 MG TID PO Physical Exam Head/eyes: PERRLA Cardiovascular: normal capillary refill, normal heart sounds, regular rate and rhythm, normal S1/S2 Respiratory: aerating well, clear to auscultation, symmetric expansion Abdomen: soft, non-tender, normal bowel sounds Extremities: moves all 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, 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 3, CNII-XII intact, normal speech Results Findings/data: Laboratory Tests 05/02 05/02 05/02 05/02 05/01 1140 0736 0205 0205 1929 Chemistry Sodium (134 - 147 mEq/L) 133 L Potassium (3.4 - 5.0 mEq/L) 4.0 Chloride (100 - 108 mEq/L) 105 Carbon Dioxide (21 - 33 mEq/l) 26 Anion Gap (0 - 20) 6 BUN (7 - 25 mg/dL) 19 Creatinine (0.6 - 1.3 mg/dL) 0.9 Glomerular Filtr Rate (90 - 95) 99.6 H Glucose (77 - 141 mg/dL) 159 H POC Glucose (70 - 110 MG/DL) 151 H 154 H 163 H Calcium (8.0 - 10.5 mg/dL) 8.7 Magnesium (1.6 - 2.6 mg/dL) 1.84 C-Reactive Protein (<10.0 mg/L) 77.0 H 05/01 05/01 1520 1518 Chemistry Sodium (134 - 147 mEq/L) 136 Potassium (3.4 - 5.0 mEq/L) 4.0 Chloride (100 - 108 mEq/L) 104 Carbon Dioxide (21 - 33 mEq/l) 26 Anion Gap (0 - 20) 11 BUN (7 - 25 mg/dL) 19 Creatinine (0.6 - 1.3 mg/dL) 1.0 Glomerular Filtr Rate (90 - 95) 87.8 L Glucose (77 - 141 mg/dL) 149 H POC Glucose (70 - 110 MG/DL) 131 H Calcium (8.0 - 10.5 mg/dL) 8.5 Phosphorus (2.5 - 4.9 MG/DL) 3.0 Magnesium (1.6 - 2.6 mg/dL) 1.63 Laboratory Tests 05/02 0205 Hematology WBC (4.5 - 11.0 x10 3/uL) 9.1 RBC (4.00 - 5.60 x10 6/uL) 3.33 L Hgb (12.5 - 16.9 g/dL) 9.8 L Hct (37.5 - 50.7 %) 30.2 L MCV (81.0 - 99.0 fL) 90.7 MCH (27.0 - 33.0 pg) 29.4 MCHC (33.0 - 37.0 g/dL) 32.5 L RDW (11.5 - 14.5 %) 13.2 Plt Count (150 - 400 x10 3/uL) 292 MPV (7.0 - 9.0 fL) 10.3 H Neut % (Auto) (56.0 - 77.0 %) 71.0 Lymph % (Auto) (14.0 - 32.0 %) 17.5 [place] % (Auto) (4.8 - 9.0 %) 7.4 Eos % (Auto) (0.3 - 3.7 %) 2.8 Baso % (Auto) (0.0 - 2.0 %) 0.6 Neut # (Auto) (2.0 - 7.6 x10 3/uL) 6.44 Lymph # (Auto) (1.0 - 3.8 x10 3/uL) 1.59 [place] # (Auto) (0.1 - 0.8 x10 3/uL) 0.67 Eos # (Auto) (0.0 - 0.2 x10 3/uL) 0.25 H Baso # (Auto) (0.0 - 0.2 x10 3/uL) 0.05 Abs Immat Gran (auto) (0.00 - 0.03 x10 3/uL) 0.06 H Immature Gran % (0.0 - 2.0 %) 0.7 Nucleated RBC % (0 - 0 %) 0.0 Nucleated RBCs # (Man) (0.0 - 0.1 x10 3/uL) 0.00 ESR Westergren (0 - 15 mm/hr) 106 H Laboratory Tests 05/02/23 0205: [Embedded Image Not Available] 05/01/23 1520: [Embedded Image Not Available] Radiology data Recent Impressions: RADIOLOGY - XR CHEST 1 V 05/02 0500 Report Impression - Status: SIGNED Entered: 05/02/2023 0828 IMPRESSION: No significant change from the prior Impression By: [email or web address] - Anu Amador M.D. ULTRASOUND - DUP VEIN ANALI 05/02 1132 Report Impression - Status: SIGNED Entered: 05/02/2023 1155 IMPRESSION: 1. No evidence of deep venous thrombosis within the visualized venous structures of bilateral lower extremities. Impression By: [email or web address] - Ramon Smiley M.D. Diagnosis, Assessment Plan Free text A P: Multivessel CAD status post CABG x5 (RICHARDS-LAD, Seq-diag, SVG-OM1, SVG-OM2, SVG- PDA) Postoperative hypoxemic respiratory insufficiency Postoperative pain Leukocytosis Diabetes hyperglycemia Nonhealing left leg ulcer Patient underwent CABG x5 today, on arrival to ICU he was on ventilatory support with assist control ventilation. We will wean down to extubate. We will continue insulin drip to keep sugar below 200. Keep MAP above 65. Monitor chest tube output. Pain management. Monitor urine output monitor kidney function replace electrolyte as needed. Monitor H H. GI and DVT prophylaxis. Continue antibiotic per ID recommendation. 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 Case was discussed at bedside with the nursing staff and respiratory therapist. 04/28 Patient was seen this morning, he is on room air, will keep saturation of 92%. Continue incentive spirometry, pulmonary toileting, bronchodilator as needed. His blood pressure is soft, will keep MAP above 65, off pressors. Monitor urine output, replace electrolyte as needed. May consider diuresing if needed. Monitor chest tube output, will assess later in the day for possible removal. Continue insulin to keep sugar below 200. Continue antibiotic per ID recommendation. Pain management. GI and DVT prophylaxis. Out of bed to chair. PT and OT. Continue metoprolol, amiodarone, aspirin, Plavix and statin. Case was discussed at bedside with the nursing staff, respiratory therapist, pharmacist, social work faculty member and cardiothoracic surgery team. 05/01 Pain is better controlled today. Hemodynamically stable. Continue beta-james and amiodarone. Aspirin Plavix. Transition to oral antibiotics at the time of discharge. Will need antibiotics till 06/09. Diuresed well. chest x-ray reviewed. Endocrine following for the sugars, long-acting and sliding scale Creatinine stable. Replete electrolytes. Hemoglobin stable. White count downtrending no fevers. SCDs for DVT prophylaxis Consultants: cardiology, cardiovascular surgery, pulmonary at 1429 Addendum 1: 05/02/23 1436 by Carole Mccauley MD [facility] above plan is for date 05/02 at 1437 RPT #:[id number] END OF REPORT [facility] 2023-05-02 13:20:00 [facility] Endocrinology Progress Note REPORT#:[id number] REPORT STATUS: Signed REPORT INITIALIZATION DATE:05/02/23 TIME: 1320 PATIENT: JONG RIVAS UNIT #: [id number] ROOM/BED: [place] [id number] : 67 AGE: 58 SEX: M ATTEND: Domenic Rainey MD ADM AUTHOR: Vlad Lay MD REPT SERVICE DT/TIME: 05/02/23 1320 * ALL edits or amendments must be made on the electronic/computer document * Subjective Patient reports: no complaints Objective General VS: Last Documented: Result Date Time Pulse Ox 97 05/02 1120 FiO2 21 05/02 1120 O2 Delivery Room air 05/02 1120 Pulse 74 05/02 0955 Resp 16 05/02 0955 B/P 130/78 05/02 0900 B/P Mean 98 05/02 0900 Temp 36.9 05/02 0800 O2 Flow Rate 0 05/01 1800 PATIENT WEIGHT: Weight (lb): 238 Weight (oz): 15.7 Weight (kg): 108.400 Medications: Active Meds + DC'd Last 24 Hrs Insulin Glargine (Semglee) 20 UNIT BEDTIME SUBQ Magnesium Sulfate (MAGNESIUM SULFATE 2GM/SWFI 50ML) 50 ML ONCE ONE IV ( DC) Insulin Human Lispro (HUMALOG) 7 UNIT AC SUBQ Potassium Chloride (POTASSIUM CHLORIDE 20MEQ TAB.ER) 20 MEQ ONCE ONE PO (DC) Insulin Glargine (Semglee) 18 UNIT BEDTIME SUBQ (DC) Ipratropium [place] (ATROVENT) 500 MCG RTQ2H PRN PRN INH Cyanocobalamin (Vitamin B-12 500 mcg tab) 500 MCG DAILY PO Ferrous Sulfate (FERROUS SULFATE) 325 MG DAILY PO Mupirocin (BACTROBAN 2% 22 GM OINTMENT) 1 APPLIC BID NASAL Doxycycline Monohydrate (DOXYCYCLINE MONOHYDRATE) 100 MG Q12HR PO Insulin Human Lispro (HUMALOG) 0 AC HS SUBQ Insulin Human Lispro (HUMALOG) 5 UNIT AC SUBQ (DC) Bisacodyl (DULCOLAX) 10 MG ONCE PRN RECTAL Magnesium Hydroxide (MILK OF MAGNESIA) 30 ML ONCE PRN PO Atorvastatin Calcium (LIPITOR) 40 MG 2100 PO Dextrose/Water (DEXTROSE 10% IN WATER) 250 ML ASDIR PRN IV (CKD) Insulin Human Regular (HumuLIN R) 100 UNIT ASDIR IV (CKD) Sodium Chloride (SODIUM CHLORIDE 0.9%) 99 ML Benzonatate (TESSALON PERLE) 200 MG Q8H PRN PRN PO Piperacillin Sod/Tazobactam Sod (ZOSYN 3.375GM) 3.375 GM Q8H IV Sodium Chloride (SODIUM CHLORIDE 0.9% 100 ML) 100 ML Clopidogrel Bisulfate (Plavix) 75 MG DAILY PO Polyethylene Glycol (MIRALAX) 17 GM DAILY PO Docusate Sodium (COLACE) 100 MG BID PO Metoprolol Tartrate (LOPRESSOR) 12.5 MG Q12HR PO Sennosides (Senna Lax 8.6 MG TABLET) 17.2 MG BEDTIME PO Aspirin (ASPIRIN) 81 MG DAILY PO Pantoprazole (PROTONIX) 40 MG DAILY@0600 PO Amiodarone HCl (CORDARONE) 200 MG TID PO Acetaminophen (TYLENOL) 650 MG Q4H PRN PRN PO Acetaminophen (TYLENOL) 650 MG Q4H PRN PRN RECTAL Calcium Chloride (CALCIUM CHLORIDE) 1 GM ASDIR PRN IV Dextrose/Water (DEXTROSE 10% IN WATER) 125 ML ASDIR PRN IV (CKD) Dextrose/Water (DEXTROSE 10% IN WATER) 250 ML ASDIR PRN IV (CKD) Epinephrine (ADRENALIN CHLORIDE) 4 MG ASDIR IV Dextrose/Water (DEXTROSE 5% WATER) 246 ML Glucagon (GLUCAGON) 1 MG ASDIR PRN IM Magnesium Sulfate (MAGNESIUM SULFATE 4GM/SWFI 100ML) 100 ML ASDIR PRN IV Magnesium Sulfate (MAGNESIUM SULFATE 2GM/SWFI 50ML) 50 ML ASDIR PRN IV Magnesium Sulfate/Dextrose (MAGNESIUM SULFATE 1GM/D5W 100ML) 100 ML ASDIR PRN IV Nitroglycerin/Dextrose (NITROGLYCERIN 50,000MCG/D5W 250ML) 250 ML ASDIR IV Norepinephrine Bitartrate (NOREPINEPHRINE 8 MG/NS 250 ML) 250 ML TITRATE IV Ondansetron HCl (ZOFRAN) 4 MG Q6H PRN PRN IV Oxycodone HCl (ROXICODONE) 5 MG Q4H PRN PRN PO Oxycodone HCl (ROXICODONE) 10 MG Q4H PRN PRN PO Potassium Chloride (KCL 20MEQ/SWFI 100ML) 100 ML ASDIR PRN IV Sodium Bicarbonate (SODIUM BICARBONATE) 50 MEQ ASDIR PRN IV Sodium Chloride (SODIUM CHLORIDE 0.9%) 1,000 ML .Q20H IV Sodium Chloride (SODIUM CHLORIDE 0.9%) 250 ML Q24H IV (DC) Silver Sulfadiazine (SILVADENE 1% 50 GM CREAM) 1 APPLIC Q12HR TOPICAL Gabapentin (NEURONTIN) 200 MG TID PO Physical Exam General appearance: alert, awake Diagnosis, Assessment Plan Hospital course to date: Laboratory Tests: 05/02 05/02 05/02 05/02 1140 0736 0205 0205 Chemistry Sodium (134 - 147 mEq/L) 133 L Potassium (3.4 - 5.0 mEq/L) 4.0 Chloride (100 - 108 mEq/L) 105 Carbon Dioxide (21 - 33 mEq/l) 26 Anion Gap (0 - 20) 6 BUN (7 - 25 mg/dL) 19 Creatinine (0.6 - 1.3 mg/dL) 0.9 Glomerular Filtr Rate (90 - 95) 99.6 H Glucose (77 - 141 mg/dL) 159 H POC Glucose (70 - 110 MG/DL) 151 H 154 H Calcium (8.0 - 10.5 mg/dL) 8.7 Magnesium (1.6 - 2.6 mg/dL) 1.84 C-Reactive Protein (<10.0 mg/L) 77.0 H Hematology WBC (4.5 - 11.0 x10 3/uL) 9.1 RBC (4.00 - 5.60 x10 6/uL) 3.33 L Hgb (12.5 - 16.9 g/dL) 9.8 L Hct (37.5 - 50.7 %) 30.2 L MCV (81.0 - 99.0 fL) 90.7 MCH (27.0 - 33.0 pg) 29.4 MCHC (33.0 - 37.0 g/dL) 32.5 L RDW (11.5 - 14.5 %) 13.2 Plt Count (150 - 400 x10 3/uL) 292 MPV (7.0 - 9.0 fL) 10.3 H Neut % (Auto) (56.0 - 77.0 %) 71.0 Lymph % (Auto) (14.0 - 32.0 %) 17.5 [place] % (Auto) (4.8 - 9.0 %) 7.4 Eos % (Auto) (0.3 - 3.7 %) 2.8 Baso % (Auto) (0.0 - 2.0 %) 0.6 Neut # (Auto) (2.0 - 7.6 x10 3/uL) 6.44 Lymph # (Auto) (1.0 - 3.8 x10 3/uL) 1.59 [place] # (Auto) (0.1 - 0.8 x10 3/uL) 0.67 Eos # (Auto) (0.0 - 0.2 x10 3/uL) 0.25 H Baso # (Auto) (0.0 - 0.2 x10 3/uL) 0.05 Abs Immat Gran (auto) (0.00 - 0.03 x10 3/uL) 0.06 H Immature Gran % (0.0 - 2.0 %) 0.7 Nucleated RBC % (0 - 0 %) 0.0 Nucleated RBCs # (Man) (0.0 - 0.1 x10 3/uL) 0.00 ESR [place] (0 - 15 mm/hr) 106 H 05/01 05/01 05/01 1929 1520 1518 Chemistry Sodium (134 - 147 mEq/L) 136 Potassium (3.4 - 5.0 mEq/L) 4.0 Chloride (100 - 108 mEq/L) 104 Carbon Dioxide (21 - 33 mEq/l) 26 Anion Gap (0 - 20) 11 BUN (7 - 25 mg/dL) 19 Creatinine (0.6 - 1.3 mg/dL) 1.0 Glomerular Filtr Rate (90 - 95) 87.8 L Glucose (77 - 141 mg/dL) 149 H POC Glucose (70 - 110 MG/DL) 163 H 131 H Calcium (8.0 - 10.5 mg/dL) 8.5 Phosphorus (2.5 - 4.9 MG/DL) 3.0 Magnesium (1.6 - 2.6 mg/dL) 1.63 Recent Impressions: RADIOLOGY - XR CHEST 1 V 05/02 0500 Report Impression - Status: SIGNED Entered: 05/02/2023 0828 IMPRESSION: No significant change from the prior Impression By: [email or web address] - Anu Amador M.D. ULTRASOUND - DUP VEIN ANALI 05/02 1132 Report Impression - Status: SIGNED Entered: 05/02/2023 1155 IMPRESSION: 1. No evidence of deep venous thrombosis within the visualized venous structures of bilateral lower extremities. Impression By: [email or web address] - Ramon Smiley M.D. Laboratory Tests: 05/01 05/01 05/01 04/30 04/30 1054 0830 0203 1902 1857 Chemistry Sodium (134 - 147 mEq/L) 134 134 Potassium (3.4 - 5.0 mEq/L) 4.1 3.6 Chloride (100 - 108 mEq/L) 105 109 H Carbon Dioxide (21 - 33 mEq/l) 24 21 Anion Gap (0 - 20) 9 8 BUN (7 - 25 mg/dL) 18 20 Creatinine (0.6 - 1.3 mg/dL) 0.9 1.0 Glomerular Filtr Rate (90 - 95) 99.6 H 87.8 L Glucose (77 - 141 mg/dL) 182 H 157 H POC Glucose (70 - 110 MG/DL) 221 H 170 H 157 H Calcium (8.0 - 10.5 mg/dL) 8.8 9.0 Ionized Calcium [place] (1.09 - 1.30 MMOL/L) 1.09 Magnesium (1.6 - 2.6 mg/dL) 2.03 1.80 Hematology WBC (4.5 - 11.0 x10 3/uL) 9.4 RBC (4.00 - 5.60 x10 6/uL) 3.18 L Hgb (12.5 - 16.9 g/dL) 9.4 L Hct (37.5 - 50.7 %) 29.1 L MCV (81.0 - 99.0 fL) 91.5 MCH (27.0 - 33.0 pg) 29.6 MCHC (33.0 - 37.0 g/dL) 32.3 L RDW (11.5 - 14.5 %) 13.1 Plt Count (150 - 400 x10 3/uL) 239 MPV (7.0 - 9.0 fL) 10.7 H Neut % (Auto) (56.0 - 77.0 %) 73.4 Lymph % (Auto) (14.0 - 32.0 %) 14.7 [place] % (Auto) (4.8 - 9.0 %) 8.3 Eos % (Auto) (0.3 - 3.7 %) 2.5 Baso % (Auto) (0.0 - 2.0 %) 0.5 Neut # (Auto) (2.0 - 7.6 x10 3/uL) 6.86 Lymph # (Auto) (1.0 - 3.8 x10 3/uL) 1.38 [place] # (Auto) (0.1 - 0.8 x10 3/uL) 0.78 Eos # (Auto) (0.0 - 0.2 x10 3/uL) 0.23 H Baso # (Auto) (0.0 - 0.2 x10 3/uL) 0.05 Abs Immat Gran (auto) (0.00 - 0.03 0.06 H x10 3/uL) Immature Gran % (0.0 - 2.0 %) 0.6 Nucleated RBC % (0 - 0 %) 0.0 Nucleated RBCs # (Man) (0.0 - 0.1 0.00 x10 3/uL) 04/30 1632 Chemistry POC Glucose (70 - 110 MG/DL) 188 H Recent Impressions: RADIOLOGY - XR CHEST 1 V 05/01 0721 Report Impression - Status: SIGNED Entered: 05/01/2023 0835 IMPRESSION: 1. Expected post-CABG changes with mild central vascular congestion. Impression By: Christine Do M.D. Laboratory Tests: 04/30 04/30 04/30 04/29 0809 0221 1 1932 Chemistry Sodium (134 - 147 mEq/L) 132 L Potassium (3.4 - 5.0 mEq/L) 4.2 Chloride (100 - 108 mEq/L) 105 Carbon Dioxide (21 - 33 mEq/l) 20 L Anion Gap (0 - 20) 11 BUN (7 - 25 mg/dL) 16 Creatinine (0.6 - 1.3 mg/dL) 0.9 Glomerular Filtr Rate (90 - 95) 99.6 H Glucose (77 - 141 mg/dL) 205 H POC Glucose (70 - 110 MG/DL) 181 H 267 H Calcium (8.0 - 10.5 mg/dL) 8.8 Ionized Calcium [place] (1.09 - 1.30 MMOL/L) 1.05 L Magnesium (1.6 - 2.6 mg/dL) 1.87 Total Bilirubin (0.0 - 1.0 mg/dL) 0.40 Direct Bilirubin (0.1 - 0.3 MG/DL) 0.20 Indirect Bilirubin (MG/DL) 0.20 AST (8 - 34 IUnit/L) 23 ALT (10 - 49 IUnit/L) 19 Total Alk Phosphatase (20 - 125 IUnit/L) 62 Total Protein (6.4 - 8.2 g/dL) 6.5 Albumin (3.4 - 5.0 g/dL) 3.20 L Hematology WBC (4.5 - 11.0 x10 3/uL) 13.1 H RBC (4.00 - 5.60 x10 6/uL) 3.41 L Hgb (12.5 - 16.9 g/dL) 10.0 L Hct (37.5 - 50.7 %) 31.1 L MCV (81.0 - 99.0 fL) 91.2 MCH (27.0 - 33.0 pg) 29.3 MCHC (33.0 - 37.0 g/dL) 32.2 L RDW (11.5 - 14.5 %) 13.1 Plt Count (150 - 400 x10 3/uL) 249 MPV (7.0 - 9.0 fL) 10.8 H Neut % (Auto) (56.0 - 77.0 %) 78.3 H Lymph % (Auto) (14.0 - 32.0 %) 11.3 L [place] % (Auto) (4.8 - 9.0 %) 8.3 Eos % (Auto) (0.3 - 3.7 %) 1.3 Baso % (Auto) (0.0 - 2.0 %) 0.2 Neut # (Auto) (2.0 - 7.6 x10 3/uL) 10.28 H Lymph # (Auto) (1.0 - 3.8 x10 3/uL) 1.49 [place] # (Auto) (0.1 - 0.8 x10 3/uL) 1.09 H Eos # (Auto) (0.0 - 0.2 x10 3/uL) 0.17 Baso # (Auto) (0.0 - 0.2 x10 3/uL) 0.03 Abs Immat Gran (auto) (0.00 - 0.03 0.08 H x10 3/uL) Immature Gran % (0.0 - 2.0 %) 0.6 Nucleated RBC % (0 - 0 %) 0.0 Nucleated RBCs # (Man) (0.0 - 0.1 x10 3/uL) 0.00 04/29 04/29 1706 1413 Chemistry Sodium (134 - 147 mEq/L) 137 Potassium (3.4 - 5.0 mEq/L) 3.8 Chloride (100 - 108 mEq/L) 106 Carbon Dioxide (21 - 33 mEq/l) 21 Anion Gap (0 - 20) 14 BUN (7 - 25 mg/dL) 24 Creatinine (0.6 - 1.3 mg/dL) 1.0 Glomerular Filtr Rate (90 - 95) 87.8 L Glucose (77 - 141 mg/dL) 246 H POC Glucose (70 - 110 MG/DL) 216 H Calcium (8.0 - 10.5 mg/dL) 8.5 Phosphorus (2.5 - 4.9 MG/DL) 1.9 L Magnesium (1.6 - 2.6 mg/dL) 1.84 Recent Impressions: RADIOLOGY - XR CHEST 1 V 04/30 0746 Report Impression - Status: SIGNED Entered: 04/30/2023 0817 IMPRESSION: 1. Expected post-CABG changes with interval removal of the mediastinal drains. No pneumothorax. Impression By: Christine Do M.D. Laboratory Tests: 04/29 04/29 04/29 04/29 04/29 1706 1413 1207 1007 0802 Chemistry Sodium (134 - 147 mEq/L) 137 Potassium (3.4 - 5.0 mEq/L) 3.8 Chloride (100 - 108 mEq/L) 106 Carbon Dioxide (21 - 33 mEq/l) 21 Anion Gap (0 - 20) 14 BUN (7 - 25 mg/dL) 24 Creatinine (0.6 - 1.3 mg/dL) 1.0 Glomerular Filtr Rate (90 - 95) 87.8 L Glucose (77 - 141 mg/dL) 246 H POC Glucose (70 - 110 MG/DL) 216 H 171 H 186 H 184 H Calcium (8.0 - 10.5 mg/dL) 8.5 Phosphorus (2.5 - 4.9 MG/DL) 1.9 L Magnesium (1.6 - 2.6 mg/dL) 1.84 04/29 04/29 04/29 04/28 0624 0228 0026 2131 Chemistry Sodium (134 - 147 mEq/L) 135 Potassium (3.4 - 5.0 mEq/L) 4.2 Chloride (100 - 108 mEq/L) 108 Carbon Dioxide (21 - 33 mEq/l) 21 Anion Gap (0 - 20) 11 BUN (7 - 25 mg/dL) 24 Creatinine (0.6 - 1.3 mg/dL) 1.1 Glomerular Filtr Rate (90 - 95) 78.3 L Glucose (77 - 141 mg/dL) 241 H POC Glucose (70 - 110 MG/DL) 199 H 217 H 253 H Calcium (8.0 - 10.5 mg/dL) 8.9 Magnesium (1.6 - 2.6 mg/dL) 2.23 Total Bilirubin (0.0 - 1.0 mg/dL) 0.50 Direct Bilirubin (0.1 - 0.3 MG/DL) 0.30 Indirect Bilirubin (MG/DL) 0.20 AST (8 - 34 IUnit/L) 25 ALT (10 - 49 IUnit/L) 22 Total Alk Phosphatase (20 - 125 IUnit/L) 63 Total Protein (6.4 - 8.2 g/dL) 6.6 Albumin (3.4 - 5.0 g/dL) 3.50 Hematology WBC (4.5 - 11.0 x10 3/uL) 14.5 H RBC (4.00 - 5.60 x10 6/uL) 3.33 L Hgb (12.5 - 16.9 g/dL) 10.2 L Hct (37.5 - 50.7 %) 30.5 L MCV (81.0 - 99.0 fL) 91.6 MCH (27.0 - 33.0 pg) 30.6 MCHC (33.0 - 37.0 g/dL) 33.4 RDW (11.5 - 14.5 %) 13.1 Plt Count (150 - 400 x10 3/uL) 254 MPV (7.0 - 9.0 fL) 10.5 H Neut % (Auto) (56.0 - 77.0 %) 84.5 H Lymph % (Auto) (14.0 - 32.0 %) 6.5 L [place] % (Auto) (4.8 - 9.0 %) 8.1 Eos % (Auto) (0.3 - 3.7 %) 0.1 L Baso % (Auto) (0.0 - 2.0 %) 0.1 Neut # (Auto) (2.0 - 7.6 x10 3/uL) 12.28 H Lymph # (Auto) (1.0 - 3.8 x10 3/uL) 0.94 L [place] # (Auto) (0.1 - 0.8 x10 3/uL) 1.17 H Eos # (Auto) (0.0 - 0.2 x10 3/uL) 0.01 Baso # (Auto) (0.0 - 0.2 x10 3/uL) 0.01 Abs Immat Gran (auto) (0.00 - 0.03 x10 3/uL) 0.10 H Immature Gran % (0.0 - 2.0 %) 0.7 Nucleated RBC % (0 - 0 %) 0.0 Nucleated RBCs # (Man) (0.0 - 0.1 x10 3/uL) 0.00 Recent Impressions: RADIOLOGY - XR CHEST 1 V 04/29 654 Report Impression - Status: SIGNED Entered: 04/29/2023 0814 IMPRESSION: Signs of trace vascular congestion and central pulmonary edema. Suspect trace bilateral pleural effusions. Stable lines and tubes. Impression By: [email or web address] - Adilson Ordaz D.O. Laboratory Tests: 04/28 04/28 04/28 04/28 04/28 1449 1346 1054 0908 0626 Chemistry Sodium (134 - 147 mEq/L) 135 Potassium (3.4 - 5.0 mEq/L) 4.5 Chloride (100 - 108 mEq/L) 110 H Carbon Dioxide (21 - 33 mEq/l) 19 L Anion Gap (0 - 20) 10 BUN (7 - 25 mg/dL) 26 H Creatinine (0.6 - 1.3 mg/dL) 1.2 Glomerular Filtr Rate (90 - 95) 70.5 L Glucose (77 - 141 mg/dL) 186 H POC Glucose (70 - 110 MG/DL) 144 H 149 H 135 H 140 H Calcium (8.0 - 10.5 mg/dL) 8.7 Ionized Calcium [place] (1.09 - 1.30 MMOL/L) 1.13 Magnesium (1.6 - 2.6 mg/dL) 2.19 04/28 04/28 04/28 04/27 0211 0201 0104 2233 Blood Gas Puncture Site Art Line Art Line O2 Saturation (90 - 100 %) 94.0 97.3 ABG pH (7.35 - 7.45) 7.365 7.359 ABG pCO2 (35.0 - 45 mmHg) 34.0 L 34.7 L ABG pO2 (80 - 100.0 mmHg) 73.3 L 96.9 ABG HCO3 (22.0 - 26.0 MMOL/L) 19.4 L 19.6 L ABG Total CO2 20.5 20.7 ABG Base Excess (-4.0 - 4.0 MMOL/L) -5.9 L -5.8 L ABG Hematocrit (37.5 - 50.7 %) 32 L 32 L ABG Hemoglobin (12.5 - 16.9 G/DL) 10.9 L 10.9 L Sodium (134 - 147 mmol/L) 140 140 Potassium (3.4 - 5.0 mmol/L) 4.7 4.8 Chloride (100 - 108 mmol/L) 110 H 110 H Ionized Calcium (1.12 - 1.32 MMOL/L) 1.24 1.20 Lactic Acid (0.9 - 1.7 mmol/l) 0.5 L 0.9 Temperature (F) 99 98.6 O2 Delivery Device Cannula Cannula Chemistry Sodium (134 - 147 mEq/L) 139 Potassium (3.4 - 5.0 mEq/L) 4.6 Chloride (100 - 108 mEq/L) 111 H Carbon Dioxide (21 - 33 mEq/l) 21 Anion Gap (0 - 20) 12 BUN (7 - 25 mg/dL) 25 Creatinine (0.6 - 1.3 mg/dL) 0.9 POC Creatinine (0.8 - 1.3 mg/dL) 0.8 1.0 Glomerular Filtr Rate (90 - 95) 99.6 H Glucose (77 - 141 mg/dL) 142 H POC Glucose (70 - 110 MG/DL) 121 H POC Glucose (mg/dL) (70 - 110 MG/DL) 138 H 150 H Calcium (8.0 - 10.5 mg/dL) 8.5 Magnesium (1.6 - 2.6 mg/dL) 1.84 Total Bilirubin (0.0 - 1.0 mg/dL) 0.40 Direct Bilirubin (0.1 - 0.3 MG/DL) 0.20 Indirect Bilirubin (MG/DL) 0.20 AST (8 - 34 IUnit/L) 42 H ALT (10 - 49 IUnit/L) 25 Total Alk Phosphatase (20 - 125 IUnit/L) 58 Total Protein (6.4 - 8.2 g/dL) 6.0 L Albumin (3.4 - 5.0 g/dL) 3.20 L Hematology WBC (4.5 - 11.0 x10 3/uL) 13.8 H RBC (4.00 - 5.60 x10 6/uL) 3.44 L Hgb (12.5 - 16.9 g/dL) 10.2 L Hct (37.5 - 50.7 %) 31.1 L MCV (81.0 - 99.0 fL) 90.4 MCH (27.0 - 33.0 pg) 29.7 MCHC (33.0 - 37.0 g/dL) 32.8 L RDW (11.5 - 14.5 %) 12.7 Plt Count (150 - 400 x10 3/uL) 260 MPV (7.0 - 9.0 fL) 10.0 H Neut % (Auto) (56.0 - 77.0 %) 88.7 H Lymph % (Auto) (14.0 - 32.0 %) 4.0 L [place] % (Auto) (4.8 - 9.0 %) 6.7 Eos % (Auto) (0.3 - 3.7 %) 0.0 L Baso % (Auto) (0.0 - 2.0 %) 0.1 Neut # (Auto) (2.0 - 7.6 x10 3/uL) 12.23 H Lymph # (Auto) (1.0 - 3.8 x10 3/uL) 0.55 L [place] # (Auto) (0.1 - 0.8 x10 3/uL) 0.92 H Eos # (Auto) (0.0 - 0.2 x10 3/uL) 0.00 Baso # (Auto) (0.0 - 0.2 x10 3/uL) 0.01 Abs Immat Gran (auto) (0.00 - 0.03 0.07 H x10 3/uL) Immature Gran % (0.0 - 2.0 %) 0.5 Nucleated RBC % (0 - 0 %) 0.0 Nucleated RBCs # (Man) (0.0 - 0.1 0.00 x10 3/uL) 04/27 Chemistry POC Glucose (70 - 110 MG/DL) 145 H 157 H Recent Impressions: RADIOLOGY - XR CHEST 1 V 04/28 518 Report Impression - Status: SIGNED Entered: 04/28/2023 7708 IMPRESSION: Lines and tubes, as detailed above. Pulmonary edema and small left pleural effusion again noted. Enlarged cardiomediastinal silhouette. Impression By: DR.SHEAL Janiya Jiménez M.D. RADIOLOGY - XR CHEST 1 V 04/28 1716 Report Impression - Status: SIGNED Entered: 04/28/2023 2281 IMPRESSION: Improved mild bilateral interstitial infiltrates. Trace effusions. Impression By: Zane - Mimi Powers M.D. Laboratory Tests: 04/27 04/27 04/27 04/27 04/27 1424 1422 1348 1347 1235 Blood Gas O2 Saturation (90 - 100 %) 100.0 99.7 ABG pH (7.35 - 7.45) 7.380 7.257 *L ABG pCO2 (35.0 - 45 mmHg) 41.5 45.1 H ABG pO2 (80 - 100.0 mmHg) 381.1 *H 238.6 *H ABG HCO3 (22.0 - 26.0 MMOL/L) 24.6 20.1 L ABG Total CO2 25.8 21.5 ABG Base Excess (-4.0 - 4.0 -0.6 -6.8 L MMOL/L) ABG Hematocrit (37.5 - 50.7 %) 29 L 33 L ABG Hemoglobin (12.5 - 16.9 G/DL) 9.7 L 11.3 L Sodium (134 - 147 mmol/L) 140 139 Potassium (3.4 - 5.0 mmol/L) 5.6 H 4.1 Chloride (100 - 108 mmol/L) 108 108 Ionized Calcium (1.12 - 1.32 1.11 L 1.14 MMOL/L) Lactic Acid (0.9 - 1.7 mmol/l) < 0.3 L 0.3 L Chemistry POC Creatinine (0.8 - 1.3 mg/dL) 0.7 L 0.5 L POC Glucose (mg/dL) (70 - 110 155 H 165 H MG/DL) Coagulation Activated Coag Time (74 - 137 SEC) > 1000 H 677 H 152 H 04/27 04/27 04/27 04/27 1233 0834 0652 0322 Blood Gas O2 Saturation (90 - 100 %) 99.8 ABG pH (7.35 - 7.45) 7.331 L ABG pCO2 (35.0 - 45 mmHg) 32.2 L ABG pO2 (80 - 100.0 mmHg) 252.0 *H ABG HCO3 (22.0 - 26.0 MMOL/L) 17.0 *L ABG Total CO2 18.0 ABG Base Excess (-4.0 - 4.0 MMOL/L) -8.0 L ABG Hematocrit (37.5 - 50.7 %) 32 L ABG Hemoglobin (12.5 - 16.9 G/DL) 11.0 L Sodium (134 - 147 mmol/L) 143 Potassium (3.4 - 5.0 mmol/L) 3.5 Chloride (100 - 108 mmol/L) 113 H Ionized Calcium (1.12 - 1.32 MMOL/L) 1.09 L Lactic Acid (0.9 - 1.7 mmol/l) < 0.3 L Chemistry Sodium (134 - 147 mEq/L) 135 Potassium (3.4 - 5.0 mEq/L) 4.5 Chloride (100 - 108 mEq/L) 108 Carbon Dioxide (21 - 33 mEq/l) 23 Anion Gap (0 - 20) 8 BUN (7 - 25 mg/dL) 22 Creatinine (0.6 - 1.3 mg/dL) 0.9 POC Creatinine (0.8 - 1.3 mg/dL) 0.5 L Glomerular Filtr Rate (90 - 95) 99.6 H Glucose (77 - 141 mg/dL) 131 POC Glucose (70 - 110 MG/DL) 150 H POC Glucose (mg/dL) (70 - 110 MG/DL) 139 H Calcium (8.0 - 10.5 mg/dL) 9.2 Magnesium (1.6 - 2.6 mg/dL) 1.66 Coagulation INR (0.8 - 1.2) 1.5 H PTT (Jalen) (25.0 - 39.5 Seconds) 32.7 PT Patient/Control Mix (9.3 - 12.9 SECONDS) 16.4 H Hematology WBC (4.5 - 11.0 x10 3/uL) 7.1 RBC (4.00 - 5.60 x10 6/uL) 4.00 Hgb (12.5 - 16.9 g/dL) 12.0 L Hct (37.5 - 50.7 %) 36.3 L MCV (81.0 - 99.0 fL) 90.8 MCH (27.0 - 33.0 pg) 30.0 MCHC (33.0 - 37.0 g/dL) 33.1 RDW (11.5 - 14.5 %) 12.3 Plt Count (150 - 400 x10 3/uL) 277 MPV (7.0 - 9.0 fL) 10.1 H Neut % (Auto) (56.0 - 77.0 %) 60.0 Lymph % (Auto) (14.0 - 32.0 %) 29.4 [place] % (Auto) (4.8 - 9.0 %) 7.5 Eos % (Auto) (0.3 - 3.7 %) 1.8 Baso % (Auto) (0.0 - 2.0 %) 0.7 Neut # (Auto) (2.0 - 7.6 x10 3/uL) 4.27 Lymph # (Auto) (1.0 - 3.8 x10 3/uL) 2.09 [place] # (Auto) (0.1 - 0.8 x10 3/uL) 0.53 Eos # (Auto) (0.0 - 0.2 x10 3/uL) 0.13 Baso # (Auto) (0.0 - 0.2 x10 3/uL) 0.05 Abs Immat Gran (auto) (0.00 - 0.03 0.04 H x10 3/uL) Immature Gran % (0.0 - 2.0 %) 0.6 Nucleated RBC % (0 - 0 %) 0.0 Nucleated RBCs # (Man) (0.0 - 0.1 x10 3/uL) 0.00 Serology SARS-CoV-2 Ag (Rapid) (Negative) Negative 04/26 1601 Chemistry POC Glucose (70 - 110 MG/DL) 175 H 164 H Microbiology: Date/Time Procedure - Status Source Growth 04/27 828 MSSA Surveillance Screen - RECD NASAL 04/27 828 MRSA DNA Surveillance Screen - RECD NASAL Laboratory Tests: 04/26 04/26 04/26 04/25 1123 0714 0545 2028 Chemistry Sodium (134 - 147 mEq/L) 137 Potassium (3.4 - 5.0 mEq/L) 4.6 Chloride (100 - 108 mEq/L) 107 Carbon Dioxide (21 - 33 mEq/l) 23 Anion Gap (0 - 20) 12 BUN (7 - 25 mg/dL) 28 H Creatinine (0.6 - 1.3 mg/dL) 1.0 Glomerular Filtr Rate (90 - 95) 87.8 L Glucose (77 - 141 mg/dL) 137 POC Glucose (70 - 110 MG/DL) 192 H 137 H 214 H Calcium (8.0 - 10.5 mg/dL) 9.2 Magnesium (1.6 - 2.6 mg/dL) 1.64 Hematology WBC (4.5 - 11.0 x10 3/uL) 7.5 RBC (4.00 - 5.60 x10 6/uL) 3.95 L Hgb (12.5 - 16.9 g/dL) 11.9 L Hct (37.5 - 50.7 %) 35.8 L MCV (81.0 - 99.0 fL) 90.6 MCH (27.0 - 33.0 pg) 30.1 MCHC (33.0 - 37.0 g/dL) 33.2 RDW (11.5 - 14.5 %) 12.4 Plt Count (150 - 400 x10 3/uL) 289 MPV (7.0 - 9.0 fL) 10.2 H Neut % (Auto) (56.0 - 77.0 %) 58.7 Lymph % (Auto) (14.0 - 32.0 %) 30.8 [place] % (Auto) (4.8 - 9.0 %) 7.8 Eos % (Auto) (0.3 - 3.7 %) 1.7 Baso % (Auto) (0.0 - 2.0 %) 0.5 Neut # (Auto) (2.0 - 7.6 x10 3/uL) 4.38 Lymph # (Auto) (1.0 - 3.8 x10 3/uL) 2.30 [place] # (Auto) (0.1 - 0.8 x10 3/uL) 0.58 Eos # (Auto) (0.0 - 0.2 x10 3/uL) 0.13 Baso # (Auto) (0.0 - 0.2 x10 3/uL) 0.04 Abs Immat Gran (auto) (0.00 - 0.03 x10 3/uL) 0.04 H Immature Gran % (0.0 - 2.0 %) 0.5 Nucleated RBC % (0 - 0 %) 0.0 Nucleated RBCs # (Man) (0.0 - 0.1 x10 3/uL) 0.00 Laboratory Tests: 04/25 04/25 04/25 04/24 1126 0709 0223 2002 Chemistry Sodium (134 - 147 mEq/L) 134 Potassium (3.4 - 5.0 mEq/L) 4.2 Chloride (100 - 108 mEq/L) 105 Carbon Dioxide (21 - 33 mEq/l) 23 Anion Gap (0 - 20) 11 BUN (7 - 25 mg/dL) 26 H Creatinine (0.6 - 1.3 mg/dL) 1.0 Glomerular Filtr Rate (90 - 95) 87.8 L Glucose (77 - 141 mg/dL) 168 H POC Glucose (70 - 110 MG/DL) 214 H 158 H 347 H Calcium (8.0 - 10.5 mg/dL) 9.2 Magnesium (1.6 - 2.6 mg/dL) 1.60 Hematology WBC (4.5 - 11.0 x10 3/uL) 11.9 H RBC (4.00 - 5.60 x10 6/uL) 3.89 L Hgb (12.5 - 16.9 g/dL) 11.6 L Hct (37.5 - 50.7 %) 34.7 L MCV (81.0 - 99.0 fL) 89.2 MCH (27.0 - 33.0 pg) 29.8 MCHC (33.0 - 37.0 g/dL) 33.4 RDW (11.5 - 14.5 %) 12.5 Plt Count (150 - 400 x10 3/uL) 316 MPV (7.0 - 9.0 fL) 10.5 H Neut % (Auto) (56.0 - 77.0 %) 80.7 H Lymph % (Auto) (14.0 - 32.0 %) 11.5 L [place] % (Auto) (4.8 - 9.0 %) 6.9 Eos % (Auto) (0.3 - 3.7 %) 0.2 L Baso % (Auto) (0.0 - 2.0 %) 0.2 Neut # (Auto) (2.0 - 7.6 x10 3/uL) 9.65 H Lymph # (Auto) (1.0 - 3.8 x10 3/uL) 1.37 [place] # (Auto) (0.1 - 0.8 x10 3/uL) 0.82 H Eos # (Auto) (0.0 - 0.2 x10 3/uL) 0.02 Baso # (Auto) (0.0 - 0.2 x10 3/uL) 0.02 Abs Immat Gran (auto) (0.00 - 0.03 x10 3/uL) 0.06 H Add Manual Diff NO Immature Gran % (0.0 - 2.0 %) 0.5 Nucleated RBC % (0 - 0 %) 0.0 Nucleated RBCs # (Man) (0.0 - 0.1 x10 3/uL) 0.00 Laboratory Tests: 04/24 04/24 04/24 04/24 04/24 1532 1108 1013 0645 0301 Chemistry Sodium (134 - 147 mEq/L) 135 Potassium (3.4 - 5.0 mEq/L) 4.3 Chloride (100 - 108 mEq/L) 106 Carbon Dioxide (21 - 33 mEq/l) 21 Anion Gap (0 - 20) 13 BUN (7 - 25 mg/dL) 18 Creatinine (0.6 - 1.3 mg/dL) 0.9 Glomerular Filtr Rate (90 - 95) 99.6 H Glucose (77 - 141 mg/dL) 113 POC Glucose (70 - 110 MG/DL) 310 H 176 H 149 H 141 H Calcium (8.0 - 10.5 mg/dL) 9.2 Magnesium (1.6 - 2.6 mg/dL) 1.68 Hematology WBC (4.5 - 11.0 x10 3/uL) 7.8 RBC (4.00 - 5.60 x10 6/uL) 3.93 L Hgb (12.5 - 16.9 g/dL) 11.7 L Hct (37.5 - 50.7 %) 35.6 L MCV (81.0 - 99.0 fL) 90.6 MCH (27.0 - 33.0 pg) 29.8 MCHC (33.0 - 37.0 g/dL) 32.9 L RDW (11.5 - 14.5 %) 12.3 Plt Count (150 - 400 x10 3/uL) 278 MPV (7.0 - 9.0 fL) 10.0 H Neut % (Auto) (56.0 - 77.0 %) 68.0 Lymph % (Auto) (14.0 - 32.0 %) 21.2 [place] % (Auto) (4.8 - 9.0 %) 7.9 Eos % (Auto) (0.3 - 3.7 %) 1.9 Baso % (Auto) (0.0 - 2.0 %) 0.4 Neut # (Auto) (2.0 - 7.6 x10 3/uL) 5.28 Lymph # (Auto) (1.0 - 3.8 x10 3/uL) 1.65 [place] # (Auto) (0.1 - 0.8 x10 3/uL) 0.61 Eos # (Auto) (0.0 - 0.2 x10 3/uL) 0.15 Baso # (Auto) (0.0 - 0.2 x10 3/uL) 0.03 Abs Immat Gran (auto) (0.00 - 0.03 0.05 H x10 3/uL) Immature Gran % (0.0 - 2.0 %) 0.6 Nucleated RBC % (0 - 0 %) 0.0 Nucleated RBCs # (Man) (0.0 - 0.1 0.00 x10 3/uL) 04/23 2019 Chemistry POC Glucose (70 - 110 MG/DL) 276 H Microbiology: Date/Time Procedure - Status Source Growth 04/24 1000 Tissue Culture - RES TISSUE 04/24 1000 Anaerobic Culture - RES TISSUE 04/24 1000 Gram Stain - RES TISSUE Laboratory Tests: 04/23 04/23 04/23 04/23 04/23 1550 1110 0703 0330 0330 Chemistry Sodium (134 - 147 mEq/L) 137 Potassium (3.4 - 5.0 mEq/L) 3.9 Chloride (100 - 108 mEq/L) 105 Carbon Dioxide (21 - 33 mEq/l) 22 Anion Gap (0 - 20) 14 BUN (7 - 25 mg/dL) 25 Creatinine (0.6 - 1.3 mg/dL) 1.1 Glomerular Filtr Rate (90 - 95) 78.3 L Glucose (77 - 141 mg/dL) 131 POC Glucose (70 - 110 MG/DL) 265 H 284 H 143 H Calcium (8.0 - 10.5 mg/dL) 9.4 Magnesium (1.6 - 2.6 mg/dL) 1.72 Hematology WBC (4.5 - 11.0 x10 3/uL) 10.1 RBC (4.00 - 5.60 x10 6/uL) 4.24 Hgb (12.5 - 16.9 g/dL) 12.7 Hct (37.5 - 50.7 %) 38.4 MCV (81.0 - 99.0 fL) 90.6 MCH (27.0 - 33.0 pg) 30.0 MCHC (33.0 - 37.0 g/dL) 33.1 RDW (11.5 - 14.5 %) 12.3 Plt Count (150 - 400 x10 3/uL) 332 MPV (7.0 - 9.0 fL) 10.3 H Neut % (Auto) (56.0 - 77.0 %) 71.8 Lymph % (Auto) (14.0 - 32.0 %) 18.0 [place] % (Auto) (4.8 - 9.0 %) 8.4 Eos % (Auto) (0.3 - 3.7 %) 0.8 Baso % (Auto) (0.0 - 2.0 %) 0.4 Neut # (Auto) (2.0 - 7.6 x10 3/uL) 7.28 Lymph # (Auto) (1.0 - 3.8 x10 3/uL) 1.82 [place] # (Auto) (0.1 - 0.8 x10 3/uL) 0.85 H Eos # (Auto) (0.0 - 0.2 x10 3/uL) 0.08 Baso # (Auto) (0.0 - 0.2 x10 3/uL) 0.04 Abs Immat Gran (auto) (0.00 - 0.03 0.06 H x10 3/uL) Immature Gran % (0.0 - 2.0 %) 0.6 Nucleated RBC % (0 - 0 %) 0.0 Nucleated RBCs # (Man) (0.0 - 0.1 0.00 x10 3/uL) 04/23 04/22 0252 2121 Chemistry POC Glucose (70 - 110 MG/DL) 197 H Toxicology Vancomycin Trough (10.0 - 20.0 mcg/mL) 12.1 Recent Impressions: MAGNETIC RESONANCE IMAGING - MRI LOW EXT W/O CONT LT 04/23 1034 Report Impression - Status: SIGNED Entered: 04/23/2023 1207 IMPRESSION: 5th MTP effusion/possible septic arthritis with osteomyelitis changes as detailed. No drainable soft tissue abscess. Impression By: [email or web address] - Aaron Lemuel Goldberg M.D. Laboratory Tests: 04/22 04/21 04/21 0421 1957 1555 Chemistry Sodium (134 - 147 mEq/L) 139 Potassium (3.4 - 5.0 mEq/L) 4.3 Chloride (100 - 108 mEq/L) 108 Carbon Dioxide (21 - 33 mEq/l) 22 Anion Gap (0 - 20) 14 BUN (7 - 25 mg/dL) 17 Creatinine (0.6 - 1.3 mg/dL) 0.9 Glomerular Filtr Rate (90 - 95) 99.6 H Glucose (77 - 141 mg/dL) 124 POC Glucose (70 - 110 MG/DL) 232 H 133 H Calcium (8.0 - 10.5 mg/dL) 9.0 Hematology WBC (4.5 - 11.0 x10 3/uL) 8.6 RBC (4.00 - 5.60 x10 6/uL) 3.89 L Hgb (12.5 - 16.9 g/dL) 11.5 L Hct (37.5 - 50.7 %) 36.2 L MCV (81.0 - 99.0 fL) 93.1 MCH (27.0 - 33.0 pg) 29.6 MCHC (33.0 - 37.0 g/dL) 31.8 L RDW (11.5 - 14.5 %) 12.5 Plt Count (150 - 400 x10 3/uL) 301 MPV (7.0 - 9.0 fL) 10.1 H Neut % (Auto) (56.0 - 77.0 %) 66.1 Lymph % (Auto) (14.0 - 32.0 %) 23.5 [place] % (Auto) (4.8 - 9.0 %) 7.4 Eos % (Auto) (0.3 - 3.7 %) 2.0 Baso % (Auto) (0.0 - 2.0 %) 0.6 Neut # (Auto) (2.0 - 7.6 x10 3/uL) 5.66 Lymph # (Auto) (1.0 - 3.8 x10 3/uL) 2.01 [place] # (Auto) (0.1 - 0.8 x10 3/uL) 0.63 Eos # (Auto) (0.0 - 0.2 x10 3/uL) 0.17 Baso # (Auto) (0.0 - 0.2 x10 3/uL) 0.05 Abs Immat Gran (auto) (0.00 - 0.03 x10 3/uL) 0.03 Immature Gran % (0.0 - 2.0 %) 0.4 Nucleated RBC % (0 - 0 %) 0.0 Nucleated RBCs # (Man) (0.0 - 0.1 x10 3/uL) 0.00 Microbiology: Date/Time Procedure - Status Source Growth 04/21 153 Blood Culture - RECD BLOOD 04/21 153 Blood Culture Gram Stain - RECD BLOOD 04/21 153 Blood Culture - RECD BLOOD 04/21 153 Blood Culture Gram Stain - RECD BLOOD Recent Impressions: RADIOLOGY - XR FOOT 3 + V LT 04/21 1423 Report Impression - Status: SIGNED Entered: 04/21/2023 1438 IMPRESSION: Interval progression of osteomyelitis involving the fifth metatarsal head and fifth proximal phalanx base about the MTP joint since the prior study from 04/16/2023. Impression By: [email or web address] - Brett Elizabeth M.D. Laboratory Tests: 04/21 04/21 04/21 04/21 1128 0931 0534 0132 Chemistry Sodium (134 - 147 mEq/L) 137 Potassium (3.4 - 5.0 mEq/L) 4.0 Chloride (100 - 108 mEq/L) 105 Carbon Dioxide (21 - 33 mEq/l) 24 Anion Gap (0 - 20) 12 BUN (7 - 25 mg/dL) 18 Creatinine (0.6 - 1.3 mg/dL) 1.1 Glomerular Filtr Rate (90 - 95) 78.3 L Glucose (77 - 141 mg/dL) 181 H POC Glucose (70 - 110 MG/DL) 172 H Calcium (8.0 - 10.5 mg/dL) 9.3 Magnesium (1.6 - 2.6 mg/dL) 1.61 C-Reactive Protein (<10.0 mg/L) 25.0 H Hematology WBC (4.5 - 11.0 x10 3/uL) 7.0 RBC (4.00 - 5.60 x10 6/uL) 4.05 Hgb (12.5 - 16.9 g/dL) 12.0 L Hct (37.5 - 50.7 %) 36.5 L MCV (81.0 - 99.0 fL) 90.1 MCH (27.0 - 33.0 pg) 29.6 MCHC (33.0 - 37.0 g/dL) 32.9 L RDW (11.5 - 14.5 %) 12.0 Plt Count (150 - 400 x10 3/uL) 305 MPV (7.0 - 9.0 fL) 10.5 H Neut % (Auto) (56.0 - 77.0 %) 61.3 Lymph % (Auto) (14.0 - 32.0 %) 27.0 [place] % (Auto) (4.8 - 9.0 %) 8.9 Eos % (Auto) (0.3 - 3.7 %) 1.7 Baso % (Auto) (0.0 - 2.0 %) 0.7 Neut # (Auto) (2.0 - 7.6 x10 3/uL) 4.28 Lymph # (Auto) (1.0 - 3.8 x10 3/uL) 1.89 [place] # (Auto) (0.1 - 0.8 x10 3/uL) 0.62 Eos # (Auto) (0.0 - 0.2 x10 3/uL) 0.12 Baso # (Auto) (0.0 - 0.2 x10 3/uL) 0.05 Abs Immat Gran (auto) (0.00 - 0.03 x10 3/uL) 0.03 Immature Gran % (0.0 - 2.0 %) 0.4 Nucleated RBC % (0 - 0 %) 0.0 Nucleated RBCs # (Man) (0.0 - 0.1 x10 3/uL) 0.00 ESR Westergren (0 - 15 mm/hr) 87 H Urines Urine Color (YEL/STRAW) YELLOW Urine Appearance (CLEAR) CLEAR Urine pH (5.0 - 7.0) 5.0 Ur Specific [place] (1.005 - 1.030) 1.011 Urine Protein (NEGATIVE) NEGATIVE Urine Glucose (UA) (NEGATIVE) 3+ H Urine Ketones (NEGATIVE) NEGATIVE Urine Blood (NEGATIVE) NEGATIVE Urine Nitrite (NEGATIVE) NEGATIVE Urine Bilirubin (NEGATIVE) NEGATIVE Urine Urobilinogen (0.2 - 1.0 mg/dL) 0.2 Ur Leukocyte Esterase (NEGATIVE) NEGATIVE Urine RBC (0 - 3 RBC/HPF) 0-3 Urine WBC (0 - 3 WBC/HPF) 0-3 Ur Squamous Epith Cells (NONE SEEN /HPF) 0-5 Ur Transition Epith Cell (NONE SEEN /HPF) TRACE Urine Bacteria (NONE SEEN /HPF) TRACE Urine Mucus (NONE SEEN /LPF) TRACE 04/20 Chemistry POC Glucose (70 - 110 MG/DL) 325 H Coagulation INR (0.8 - 1.2) 1.3 H PTT ([place]) (25.0 - 39.5 Seconds) 39.3 PT Patient/Control Mix (9.3 - 12.9 SECONDS) 14.5 H Microbiology: Date/Time Procedure - Status Source Growth 04/21 1535 Blood Culture - RECD BLOOD 04/21 1535 Blood Culture Gram Stain - RECD BLOOD 04/21 1535 Blood Culture - RECD BLOOD 04/21 1535 Blood Culture Gram Stain - RECD BLOOD Recent Impressions: RADIOLOGY - XR FOOT 3 + V LT 04/21 1423 Report Impression - Status: SIGNED Entered: 04/21/2023 1438 IMPRESSION: Interval progression of osteomyelitis involving the fifth metatarsal head and fifth proximal phalanx base about the MTP joint since the prior study from 04/16/2023. Impression By: [email or web address] - Brett Elizabeth M.D. 1. 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 2. Coronary artery disease. 6 3. S/P CABG 4. Ex-smoker 5.Left foot wound 6.Hypertension. 7. Hyperlipidemia Blood sugar 154-176 mg/dL. HbA1c 8.3%. Lipids elevated.This Adjust insulin dose. Diabetes dietary education. at 1320 RPT #:[id number] END OF REPORT [facility] 2023-05-02 12:36:00 [facility] ([facility]) Infectious Dis. Progress Note REPORT#:[id number] REPORT STATUS: Signed REPORT INITIALIZATION DATE:05/02/23 TIME: 1236 PATIENT: JONG RIVAS UNIT #: [id number] ROOM/BED: 2201-1 : 66 AGE: 58 SEX: M ATTEND: Domenic Rainey MD ADM AUTHOR: Kirk Wakefield MD REPT SERVICE DT/TIME: 05/02/23 1236 * ALL edits or amendments must be made on the electronic/computer document * Subjective Chief complaint: Left-sided diabetic foot infection with osteomyelitis HPI: Remains in CVICU. Reports feeling okay and denies acute or new complaints currently. No major overnight events. Objective General VS/I O: Vital Signs Date Temp Pulse Resp B/P B/P Mean Pulse Ox FiO2 05/01-05/02 98.0-99.1 70-96 16-46 114-165/60-102 81-116 92-99 21 Last Documented: Result Date Time Pulse Ox 98 05/02 1745 Pulse 80 05/02 1745 Resp 27 05/02 1745 B/P 155/83 05/02 1701 B/P Mean 112 05/02 1701 Temp 98.6 05/02 1600 FiO2 21 05/02 1527 O2 Delivery Room air 05/02 1527 O2 Flow Rate 0 05/01 1800 Vital Signs: Date Time Temp Pulse Resp B/P B/P Pulse O2 O2 Flow FiO2 Mean Ox Delivery Rate 05/02 1745 80 27 98 05/02 1701 86 44 155/83 112 95 05/02 1700 83 42 94 05/02 1600 98.6 05/02 1600 72 23 127/61 87 99 05/02 1527 97 Room air 05/02 1500 70 17 165/82 116 93 05/02 1400 71 18 131/72 95 95 05/02 1300 70 19 148/79 107 92 05/02 1200 98.4 05/02 1200 80 34 137/90 110 97 05/02 1120 97 Room air 05/02 1100 71 20 131/75 97 95 05/02 1000 77 17 157/82 112 92 05/02 0955 74 16 98 05/02 0900 74 22 130/78 98 96 05/02 0825 96 Room air 21 05/02 0803 97 Room air 21 05/02 0800 98.4 05/02 0800 86 43 149/102 113 95 05/02 0701 96 46 134/68 95 97 05/02 0700 95 42 94 05/02 0501 82 28 114/60 81 95 05/02 0400 75 18 161/81 114 95 05/02 0319 95 Room air 21 05/02 0300 74 19 154/74 107 95 05/02 0200 82 19 121/69 88 95 05/02 0100 75 22 157/78 110 94 05/02 0000 74 20 128/75 97 95 05/01 2300 75 16 117/67 84 94 05/01 2200 73 19 140/73 100 95 05/01 2100 77 20 162/75 108 96 05/01 2000 98.0 05/01 2000 79 25 135/71 96 96 05/01 1949 96 Room air 21 05/01 1900 82 22 118/72 90 97 05/01 1800 99.1 78 23 115/66 83 96 0 24 hour I O ending at 0700: 05/02 0700 05/01 1900 Intake Total 393.20 1751.80 Output Total 400 2500 Balance -6.80 -748.20 Intake, IV 143.20 341.80 Intake, Oral 250 1410 Intake, Oral 0 Supplement Output, Urine 400 2500 Patient 108.4 kg 84.4 kg Weight Weight Standing scale Bed scale Measurement Method PATIENT WEIGHT: Weight (lb): 238 Weight (oz): 15.7 Weight (kg): 108.400 Physical Exam General appearance: alert, awake, no acute distress Cardiovascular: normal heart sounds, regular rate rhythm, no murmur Respiratory: clear to auscultation, symmetric expansion Abdomen: non-tender, soft, no distention Extremities: no cyanosis, left foot dressed; dressing clean, dry and intact; dressing not removed for exam bilateral legs pitting edema noted 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 Rivas is a 58-year-old male with history of diabetes mellitus type 2, hypertension, prior smoking history, chronic PE, chronic left foot ulcer. He was admitted at [facility] with complaints of chest pain. He had a coronary angiogram done which showed multivessel CAD and EF of 50%. Patient also has a right lower lobe cavitary lung lesion, which is suspected to be from prior PE. TB QuantiFERON has been requested at the outside facility and was pending at the time of transfer. Infectious disease consultation is requested because patient has a chronic, nonhealing wound in the left lateral foot for last 7 to 8 months according to him. The wound is obviously infected and foul-smelling on exam. He had an MRI done at the outside facility, which shows osteomyelitis of the fifth metatarsal. Patient has a PICC line in place, from outside facility. I was able to review blood cultures, which were reportedly negative at 48 hours. He did have a urine culture positive for Pseudomonas. Other culture data is not available to me. Infectious disease consultation is requested for left-sided diabetic foot infection with osteomyelitis. Patient is being evaluated for possible CABG versus high risk PCI *Left-sided diabetic foot infection with osteomyelitis *Left foot cellulitis *Multivessel CAD, s/p CABG times 5 on 04/27/2023 *RLL cavitary lung lesion, question due to prior PE *Pseudomonas UTI, treated with cefepime *Diabetes mellitus type 2 *Hypertension *Peripheral neuropathy *Prior PE -Afebrile. -On room air now. -Normal WBC count on today's CBC. -ESR 106; CRP 77 on 05/02/2023 (previous values: ESR 87; CRP 25 on 04/21/2023). -Blood cultures 04/21/23 negative x 2. -MRSA screen negative. -Called [facility] earlier. Patient's blood cultures have been negative there. Wound culture is positive for MSSA and Pseudomonas ( pansensitive isolate). -Podiatry service is following. Patient is s/p left foot I D and fifth proximal phalanx and metatarsal head resection on 04/24/2023. -Surgical cultures with growth of Pseudomonas aeruginosa, alpha Streptococcus species, many Staphylococcus epidermidis, methicillin-resistant (MRSE) and also with growth of Enterococcus raffinosus (ampicillin sensitive). -S/p CABG times 5 on 04/27/2023. Plan: -Continue piperacillin-tazobactam 3.375 g IV every 8 hours, which would adequately cover Pseudomonas, alpha Strep, Enterococcus. -Continue doxycycline for MRSE coverage. Okay to switch to p.o. formulation. -Continue local wound care. -Glycemic control. -Given osteomyelitis, would plan for a 6-week course of antibiotic treatment in total. -Patient is nonfunded and, therefore, would finish treatment with oral agents on discharge. Based on available sensitivities, a combination of Augmentin 875 mg PO BID + ciprofloxacin 500 mg PO BID + doxycycline 100 mg PO BID would provide adequate coverage, although with associated fluoroquinolone toxicities. CURRENT ANTIMICROBIALS: Doxycycline, started 04/27/2023 Piperacillin-tazobactam, started 04/28/2023 Tentative stop date of antimicrobials: 06/09/2023 (Previously on: Cefepime + metronidazole between 04/21/2023-04/27/2023) at 1759 RPT #:[id number] END OF REPORT [facility] 2023-05-02 11:24:00 [facility] ([facility]) Cardiology Progress Note REPORT#:[id number] REPORT STATUS: Signed REPORT INITIALIZATION DATE:05/02/23 TIME: 1123 PATIENT: JONG RIVAS UNIT #: [id number] ROOM/BED: [place] [id number] : 66 AGE: 58 SEX: M ATTEND: Domenic Rainey MD ADM AUTHOR: Noemí Nieto MD REPT SERVICE DT/TIME: 05/02/23 1124 * ALL edits or amendments must be made on the electronic/computer document * Objective General VS/I O: 24 hour I O ending at 0700: 05/02 0700 05/01 1900 Intake Total 393.20 1751.80 Output Total 400 2500 Balance -6.80 -748.20 Intake, IV 143.20 341.80 Intake, Oral 250 1410 Intake, Oral 0 Supplement Output, Urine 400 2500 Patient 108.4 kg 84.4 kg Weight Weight Standing scale Bed scale Measurement Method Vital Signs: Date Time Temp Pulse Resp B/P B/P Pulse O2 O2 Flow FiO2 Mean Ox Delivery Rate 05/02 0955 74 16 98 05/02 900 74 22 130/78 98 96 05/02 0803 97 Room air 21 05/02 800 98.4 11/13 0800 86 43 149/102 113 95 05/02 0701 96 46 134/68 95 97 05/02 0700 95 42 94 05/02 0501 82 28 114/60 81 95 05/02 0400 75 18 161/81 114 95 05/02 0319 95 Room air 21 05/02 0300 74 19 154/74 107 95 05/02 0200 82 19 121/69 88 95 05/02 0100 75 22 157/78 110 94 05/02 0000 74 20 128/75 97 95 05/01 2300 75 16 117/67 84 94 05/01 2200 73 19 140/73 100 95 05/01 2100 77 20 162/75 108 96 05/01 2000 98.0 05/01 2000 79 25 135/71 96 96 05/01 1949 96 Room air 21 05/01 1900 82 22 118/72 90 97 05/01 1800 99.1 78 23 115/66 83 96 0 05/01 1700 80 12 119/67 89 96 05/01 1600 99.3 75 20 108/74 87 96 0 05/01 1500 83 28 104/67 81 97 05/01 1432 99 Room air 21 05/01 1401 100.1 84 19 117/62 83 97 0 05/01 1350 97 22 131/72 96 97 05/01 1300 69 17 119/70 88 99 05/01 1201 98.1 72 23 134/72 98 97 0 05/01 1126 97 Room air 21 PATIENT WEIGHT: Weight (lb): 238 Weight (oz): 15.7 Weight (kg): 108.400 Medications: Active Meds + DC'd Last 24 Hrs Insulin Glargine (Semglee) 20 UNIT BEDTIME SUBQ Magnesium Sulfate (MAGNESIUM SULFATE 2GM/SWFI 50ML) 50 ML ONCE ONE IV ( DC) Insulin Human Lispro (HUMALOG) 7 UNIT AC SUBQ Potassium Chloride (POTASSIUM CHLORIDE 20MEQ TAB.ER) 20 MEQ ONCE ONE PO (DC) Insulin Glargine (Semglee) 18 UNIT BEDTIME SUBQ (DC) Ipratropium [place] (ATROVENT) 500 MCG RTQ2H PRN PRN INH Cyanocobalamin (Vitamin B-12 500 mcg tab) 500 MCG DAILY PO Ferrous Sulfate (FERROUS SULFATE) 325 MG DAILY PO Mupirocin (BACTROBAN 2% 22 GM OINTMENT) 1 APPLIC BID NASAL Doxycycline Monohydrate (DOXYCYCLINE MONOHYDRATE) 100 MG Q12HR PO Insulin Human Lispro (HUMALOG) 0 AC HS SUBQ Insulin Human Lispro (HUMALOG) 5 UNIT AC SUBQ (DC) Bisacodyl (DULCOLAX) 10 MG ONCE PRN RECTAL Magnesium Hydroxide (MILK OF MAGNESIA) 30 ML ONCE PRN PO Atorvastatin Calcium (LIPITOR) 40 MG 2100 PO Dextrose/Water (DEXTROSE 10% IN WATER) 250 ML ASDIR PRN IV (CKD) Insulin Human Regular (HumuLIN R) 100 UNIT ASDIR IV (CKD) Sodium Chloride (SODIUM CHLORIDE 0.9%) 99 ML Benzonatate (TESSALON PERLE) 200 MG Q8H PRN PRN PO Piperacillin Sod/Tazobactam Sod (ZOSYN 3.375GM) 3.375 GM Q8H IV Sodium Chloride (SODIUM CHLORIDE 0.9% 100 ML) 100 ML Clopidogrel Bisulfate (Plavix) 75 MG DAILY PO Polyethylene Glycol (MIRALAX) 17 GM DAILY PO Docusate Sodium (COLACE) 100 MG BID PO Metoprolol Tartrate (LOPRESSOR) 12.5 MG Q12HR PO Sennosides (Senna Lax 8.6 MG TABLET) 17.2 MG BEDTIME PO Aspirin (ASPIRIN) 81 MG DAILY PO Pantoprazole (PROTONIX) 40 MG DAILY@0600 PO Amiodarone HCl (CORDARONE) 200 MG TID PO Acetaminophen (TYLENOL) 650 MG Q4H PRN PRN PO Acetaminophen (TYLENOL) 650 MG Q4H PRN PRN RECTAL Calcium Chloride (CALCIUM CHLORIDE) 1 GM ASDIR PRN IV Dextrose/Water (DEXTROSE 10% IN WATER) 125 ML ASDIR PRN IV (CKD) Dextrose/Water (DEXTROSE 10% IN WATER) 250 ML ASDIR PRN IV (CKD) Epinephrine (ADRENALIN CHLORIDE) 4 MG ASDIR IV Dextrose/Water (DEXTROSE 5% WATER) 246 ML Glucagon (GLUCAGON) 1 MG ASDIR PRN IM Magnesium Sulfate (MAGNESIUM SULFATE 4GM/SWFI 100ML) 100 ML ASDIR PRN IV Magnesium Sulfate (MAGNESIUM SULFATE 2GM/SWFI 50ML) 50 ML ASDIR PRN IV Magnesium Sulfate/Dextrose (MAGNESIUM SULFATE 1GM/D5W 100ML) 100 ML ASDIR PRN IV Nitroglycerin/Dextrose (NITROGLYCERIN 50,000MCG/D5W 250ML) 250 ML ASDIR IV Norepinephrine Bitartrate (NOREPINEPHRINE 8 MG/NS 250 ML) 250 ML TITRATE IV Ondansetron HCl (ZOFRAN) 4 MG Q6H PRN PRN IV Oxycodone HCl (ROXICODONE) 5 MG Q4H PRN PRN PO Oxycodone HCl (ROXICODONE) 10 MG Q4H PRN PRN PO Potassium Chloride (KCL 20MEQ/SWFI 100ML) 100 ML ASDIR PRN IV Sodium Bicarbonate (SODIUM BICARBONATE) 50 MEQ ASDIR PRN IV Sodium Chloride (SODIUM CHLORIDE 0.9%) 1,000 ML .Q20H IV Sodium Chloride (SODIUM CHLORIDE 0.9%) 250 ML Q24H IV (DC) Silver Sulfadiazine (SILVADENE 1% 50 GM CREAM) 1 APPLIC Q12HR TOPICAL Gabapentin (NEURONTIN) 200 MG TID PO Results Findings/Data: Laboratory Tests 05/02 05/02 05/02 05/01 05/01 0736 0205 0205 1929 1520 Chemistry Sodium (134 - 147 mEq/L) 133 L 136 Potassium (3.4 - 5.0 mEq/L) 4.0 4.0 Chloride (100 - 108 mEq/L) 105 104 Carbon Dioxide (21 - 33 mEq/l) 26 26 Anion Gap (0 - 20) 6 11 BUN (7 - 25 mg/dL) 19 19 Creatinine (0.6 - 1.3 mg/dL) 0.9 1.0 Glomerular Filtr Rate (90 - 95) 99.6 H 87.8 L Glucose (77 - 141 mg/dL) 159 H 149 H POC Glucose (70 - 110 MG/DL) 154 H 163 H Calcium (8.0 - 10.5 mg/dL) 8.7 8.5 Phosphorus (2.5 - 4.9 MG/DL) 3.0 Magnesium (1.6 - 2.6 mg/dL) 1.84 1.63 C-Reactive Protein (<10.0 mg/L) 77.0 H 05/01 1518 Chemistry POC Glucose (70 - 110 MG/DL) 131 H Laboratory Tests 05/02 0205 Hematology WBC (4.5 - 11.0 x10 3/uL) 9.1 RBC (4.00 - 5.60 x10 6/uL) 3.33 L Hgb (12.5 - 16.9 g/dL) 9.8 L Hct (37.5 - 50.7 %) 30.2 L MCV (81.0 - 99.0 fL) 90.7 MCH (27.0 - 33.0 pg) 29.4 MCHC (33.0 - 37.0 g/dL) 32.5 L RDW (11.5 - 14.5 %) 13.2 Plt Count (150 - 400 x10 3/uL) 292 MPV (7.0 - 9.0 fL) 10.3 H Neut % (Auto) (56.0 - 77.0 %) 71.0 Lymph % (Auto) (14.0 - 32.0 %) 17.5 [place] % (Auto) (4.8 - 9.0 %) 7.4 Eos % (Auto) (0.3 - 3.7 %) 2.8 Baso % (Auto) (0.0 - 2.0 %) 0.6 Neut # (Auto) (2.0 - 7.6 x10 3/uL) 6.44 Lymph # (Auto) (1.0 - 3.8 x10 3/uL) 1.59 [place] # (Auto) (0.1 - 0.8 x10 3/uL) 0.67 Eos # (Auto) (0.0 - 0.2 x10 3/uL) 0.25 H Baso # (Auto) (0.0 - 0.2 x10 3/uL) 0.05 Abs Immat Gran (auto) (0.00 - 0.03 x10 3/uL) 0.06 H Immature Gran % (0.0 - 2.0 %) 0.7 Nucleated RBC % (0 - 0 %) 0.0 Nucleated RBCs # (Man) (0.0 - 0.1 x10 3/uL) 0.00 ESR Westergren (0 - 15 mm/hr) 106 H Laboratory Tests 05/02 05/01 0205 1520 Chemistry Magnesium (1.6 - 2.6 mg/dL) 1.84 1.63 Radiology data: Recent Impressions: RADIOLOGY - XR CHEST 1 V 05/02 0500 Report Impression - Status: SIGNED Entered: 05/02/2023 0828 IMPRESSION: No significant change from the prior Impression By: [email or web address] - Anu Perry, M.D. Free Text Obj Notes Free Text Obj Notes: GENERAL: Sitting in bedside chair, HEENT: Normocephalic, atraumatic NECK: JVP is raised LUNGS: Equal air entry bilaterally, normal vesicular breathing HEART: regular rate, normal S1 and S2, No murmurs, ABDOMEN: Soft, lax, non-tender, non-distended PERIPHERAL PULSES: 2+ dorsalis pedis pulses, left foot covered with dressing EXTREMITIES: +1 edema Diagnosis, Assessment Plan Consultants: cardiology, cardiovascular surgery, pulmonary Free Text DxA P Notes Free Text DxA P Notes: #NSTEMI #Severe multivessel CAD s/p CABG x6 with RICHARDS to LAD, sequential diagonal, SVG to ramus, SVG to OM, SVG to PDA, SVG to RPL, and amputation of the left atrial appendage. #Left foot diabetic foot infection with osteomyelitis S/P successful left foot fifth proximal phalanx and fifth metatarsal head resection on 04/25- on IV antibiotics per ID #Urinary tract infection #Hyperlipidemia #Diabetes mellitus-A1c 8.3 #Essential hypertension #Right lung cavitary lesion PLAN: -CABG work-up per CT surgery versus high risk PCI. -We will get arterial Doppler bilateral lower extremities to evaluate for PAD given left diabetic foot infection. -IV antibiotics per ID -Continue aspirin 81 mg daily. Increase atorvastatin from 40 mg to 80 mg nightly. Start metoprolol tartrate 12.5 mg twice daily. -Continue lisinopril 10 mg daily. 04/21/2023 -Patient seen and examined. Telemetry reviewed. Remains in sinus rhythm. Arterial duplex yesterday showed no evidence of any hemodynamically significant stenosis in the bilateral lower extremity arteries. LDL 92 mg/dL. Atorvastatin increased to 80 mg nightly yesterday. Continue aspirin 81 mg daily, lisinopril 10 mg daily, metoprolol tartrate 12.5 mg twice daily. ID on board for osteomyelitis. CT surgery on board for consideration of CABG. Timing will depend on treatment of foot infection. 04/22/2023: -Patient seen and examined. Telemetry reviewed. Remains in normal sinus rhythm. Increase metoprolol to tartrate to 25 mg twice daily. ID on board for osteomyelitis. Plan for CABG per CT surgery when medically stable and infection improved/resolved. Continue aspirin, high intensity atorvastatin, and lisinopril 10 mg daily. 04/25/2023: -Patient seen and examined. Telemetry reviewed. Remains in normal sinus rhythm. Underwent successful left foot fifth proximal phalanx and fifth metatarsal head resection yesterday. 6 weeks of IV antibiotic treatment plan per ID for osteomyelitis. Planning for CABG per CT surgery. No chest pain or shortness of breath currently. Continue aspirin 81 mg daily, atorvastatin 80 mg nightly, lisinopril 10 mg daily, and metoprolol tartrate 25 mg p.o. every 12 hourly. 04/26/2023: -Patient seen and examined. Telemetry reviewed. Remains in normal sinus rhythm. Plan for CABG likely next week per CT surgery. On IV antibiotics per ID. Denies any chest pain or shortness of breath. Continue aspirin 81 mg daily, atorvastatin 80 mg nightly, lisinopril 10 mg daily, and metoprolol tartrate 25 mg p.o. every 12 hourly. 04/27/2023: Patient seen and examined. Telemetry reviewed. In sinus rhythm. Plan for CABG next week per CT surgery. On IV cefepime and Flagyl per ID. Continue aspirin 81 mg daily, atorvastatin 80 mg nightly, lisinopril 10 mg daily, and metoprolol tartrate 25 mg p.o. every 12 hourly. 04/28/2023-postoperative day 1: -Patient seen and examined in CVICU. Telemetry reviewed. Remains in sinus rhythm. Underwent successful CABG x6 yesterday and amputation of left atrial appendage. Extubated successfully. Currently off pressors. Has a mediastinal and left chest tube with minimal output this morning. Not on any pressors. Advanced heart failure team consulted. Continue aspirin 81 mg daily, Plavix 75 mg daily, metoprolol tartrate 12.5 mg every 12 hourly, high intensity atorvastatin, and amiodarone 200 mg 3 times daily. 04/29/2023-postoperative day 2: -Patient seen and examined. Telemetry reviewed. Remains in sinus rhythm with occasional epicardial pacing noted yesterday evening. Appears volume overloaded today. Ported shortness of breath overnight. We will give Lasix 40 mg IV once. Advanced heart failure team on board. Continue aspirin 81 mg daily, Plavix 75 mg daily, metoprolol tartrate 12.5 mg every 12 hourly, high intensity atorvastatin and amiodarone 200 mg 3 times daily. 05/02/2023-Postoperative day 5: -Patient seen and examined. Telemetry reviewed. Remains in sinus rhythm. Chest tubes removed over the weekend. Epicardial pacing wires removed today. On IV antibiotics per ID. Continue aspirin 81 mg daily, Plavix 75 mg daily, metoprolol tartrate 12.5 mg every 12 hourly, high intensity atorvastatin and amiodarone 200 mg 3 times daily. Switch amiodarone to 200 mg once a day upon discharge. at 1127 at 0305 RPT #:[id number] END OF REPORT [facility] 2023-05-02 07:09:00 [facility] Cardiothoracic Surgery Prog REPORT#:[id number] REPORT STATUS: Signed REPORT INITIALIZATION DATE:05/02/23 TIME: 708 PATIENT: JONG RIVAS UNIT #: [id number] ROOM/BED: [place] [id number] : 67 AGE: 58 SEX: M ATTEND: Domenic Rainey MD ADM AUTHOR: Viky Mclaughlin Physic REPT SERVICE DT/TIME: 05/02/23 0709 * ALL edits or amendments must be made on the electronic/computer document * General Post-op: day 5 Status post: 04/27/23 CABG x 5 (RICHARDS-LAD, Seq-diag, SVG-OM1, SVG-OM2, SVG-PDA) EVH (LGSV) ALAA Subjective Chief complaint: Postop CABG Currently no complaints, resting comfortable Review of Systems Constitutional: Reports: fatigue. Skin: Denies: bruising, contusion, diaphoresis, ecchymosis. Allergy/Immun: Denies: allergic reaction, itching, rhinorrhea, sneezing. Eyes: Denies: redness, discharge, visual loss/blurred. ENT: Denies: throat pain, throat swelling, tongue pain, tongue swelling, toothache. Respiratory: Reports: MENDES (dyspnea on exertion). Denies: SOB, wheezing. Cardiovascular: Denies: chest pain, edema, orthopnea, palpitations. GI: Denies: abdominal pain, nausea, vomiting. : Denies: dysuria, flank pain. Musculoskeletal: Denies: extremity pain, extremity swelling. Psych: Denies: agitation, anxiety, auditory hallucination, visual hallucination. All systems rev neg: except as marked Objective General VS/I O Last Documented: Result Date Time Pulse Ox 95 05/02 501 B/P 114/60 05/02 501 B/P Mean 81 05/02 501 Pulse 82 05/02 501 Resp 28 05/02 501 FiO2 21 05/02 319 O2 Delivery Room air 05/02 319 Temp 98.0 05/01 2000 O2 Flow Rate 0 05/01 1800 24 hour I O ending at 0700: 05/02 0700 05/01 1900 Intake Total 393.20 1751.80 Output Total 400 2500 Balance -6.80 -748.20 Intake, IV 143.20 341.80 Intake, Oral 250 1410 Intake, Oral 0 Supplement Output, Urine 400 2500 Patient 108.4 kg 84.4 kg Weight Weight Standing scale Bed scale Measurement Method PATIENT WEIGHT: Weight (lb): 238 Weight (oz): 15.7 Weight (kg): 108.400 Physical Exam General appearance: alert, awake, oriented Wound/incision: Location: Left foot toe amputation HEENT: anicteric, mucosal membranes moist, pupils reactive to light Neck: full range of motion, non-tender Cardiovascular: normal heart sounds, regular rate rhythm Respiratory: aerating well, clear to auscultation, symmetric expansion, no distress Abdomen: soft, non-tender Genitourinary: no bladder distention, no flank pain Extremities: dry, moves all, normal capillary refill, normal temperature Musculoskeletal: full range of motion, painless range of motion 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 Patient transferred from [facility], referred to us from Dr. Forde for acute coronary syndrome, unstable angina, ischemic heart disease status post coronary angiogram, with findings of multivessel CAD, EF 50%. Upon further chart review patient found to have chronic cavitary lung lesion on CT chest pending QuantiFERON, left lower extremity diabetic foot ulcer concerning for osteomyelitis MRI done at [place] and will upload imaging, foot wound culture with pseudomonas, UTI with urine culture Pseudomonas treated with cefepime. Patient reports dyspnea on exertion and mild chest pain x1 year. 04/18/23: Coronary angiogram done at [facility] Left main patent LAD with high-grade and tortuous calcified lesion just after the first diagonal estimated 95% stenosis first diagonal branch with severe calcified disease 99% Ramus 90 to 95% stenosis, left circumflex artery 99% proximal stenosis OM branches severe disease as well. RCA 90%. LVEDP 11 mmHg and angiography demonstrated preserved LV systolic function, EF 50%. Inferior wall demonstrated mild hypokinesis. 1-2+ MR on LV angio. RICHARDS patent Carotid angiogram, patent carotids Assessment: CAD, severe multivessel Left foot nonhealing foot ulcer Chronic cavitary lesion noted on CT chest UTI Pseudomonas 2023 Patient seen and evaluated by Dr. Rainey CABG eval underway -Consult pulmonology, cardiology, wound care -Lovenox DVT prophylaxis Continue supportive care Further recommendations to follow 04/21/2023 CABG eval underway Patient sitting up in bed, room air, no distress. No complaints Patient with multiple complex medical issues ongoing. Timing of major CV surgery pending medical optimization. We will discuss patient at high risk CV Case conference on Tuesday. -Continue supportive care Seen and examined by Dr. Rainey 04/23/2023 CABG eval underway Patient sitting up in bed, room air, no distress. No complaints Patient with multiple complex medical issues ongoing. Timing of major CV surgery pending medical optimization. Left foot MRI complete with fifth MTP effusion/possible septic arthritis with osteomyelitis changes, no drainable soft tissue abscess. -Amputation left fifth toe and metatarsal scheduled by podiatry for tomorrow -Blood cultures 04/21/2023 no growth after 24-hour -UA negative -Lovenox DVT prophylaxis Continue supportive care Further recommendations to follow 04/24/2023 CABG eval underway Patient sitting up in bed, room air, no distress. No complaints -Amputation left fifth toe and metatarsal scheduled by podiatry for today -Blood cultures 04/21/2023 no growth after 48-hour -follow tissue culture Continue supportive care Further recommendations to follow 04/25/2023 CABG eval underway, plan for OR likely next week to allow patient some time to recover from amputation. Patient sitting up in bed, room air, no distress. No complaints S/P Amputation left fifth toe and metatarsal -Blood cultures 04/21/2023 no growth after 72-hour Encourage OOBTC, IS, PT/OT Continue supportive care Further recommendations to follow 04/26/2023 CABG eval underway, plan for OR likely next week to allow patient some time to recover from amputation. Patient sitting up in bed, room air, no distress. No complaints S/P Amputation left fifth toe and metatarsal -Blood cultures 04/21/2023 no growth after 72-hour Encourage OOBTC, IS, PT/OT Continue supportive care Further recommendations to follow 04/27/23 Patient resting comfortable. Denies complaints AAO x 3 respiratory spi: on room air. Remains sinus rhythm ID following - CABG after 04/27/23 completed ABX Carotid Dopplers showed less than 50% stenosis. Vein mapping complete CT of the chest completed Consider surgery this afternoon. Ryan brown NPO. Patient seen and Examined with Dr. Rainey. STS score calculated. 0.8% Coronary bypass graft surgery was discussed with the patient. The risk of the operation including the STS score, risk of bleeding, infection, , heart attack, stroke, prolonged ICU stay, renal failure, dialysis, need for long-term rehabilitation etc. was discussed with the patient. The patient's questions were answered and the patient agreed to proceed with surgery. 04/27/23 1. Coronary artery bypass graft surgery x5 (RICHARDS to LAD, sequential to diagonal, saphenous vein to first marginal, saphenous vein to second marginal, saphenous vein to PDA). 2. Amputation of left atrial appendage. 3. Posterior pericardiotomy. 4. Endoscopic vein harvest (left greater saphenous vein). 04/28/23 On room air. POD 1 AAOx3 Patient reports pain controlled. Respiratory: on room air. Encourage IS, Deep Breathing, CXR reviewed, CT outputs- Re-access after walking. Cardiac: Remains sinus rhythm, pacing wires on standby GI: Tolerating diet, passing gas. Continue Bowel regimen : Walton in place. UO:650 Continue PT/OT Disposition: Patient lives alone. We will consult rehab. Patient DVT prophylaxis, SCDs in place Labs reveiwed- replace electrolytes as needed Patient seen and examined by Dr. Rainey. Plan of care discussed with multidisciplinary team Continue supportive care. 04/29/23 On room air. POD 2 AAOx3 Patient reports pain controlled. Respiratory: on room air. Encourage IS, Deep Breathing, CXR reviewed, Cardiac: Remains sinus rhythm, pacing wires on standby GI: Tolerating diet, passing gas. Continue Bowel regimen : Walton in place. Will DC Walton later today UO:580, 40 Lasix ordered today. Continue PT/OT out of bed walking with PT today. Disposition: Patient lives alone. We will consult rehab. Patient DVT prophylaxis, SCDs in place Labs reveiwed- replace electrolytes as needed Plan of care discussed with multidisciplinary team Continue supportive care. 04/30/23 POD 3 AAOx3 Patient reports pain controlled. Respiratory: on room air. ALL CT out. Encourage IS, Deep Breathing, CXR reviewed, Cardiac: Remains sinus rhythm, pacing wires on standby GI: Tolerating diet,+ BM. Continue Bowel regimen UO: 1740 Continue PT/OT out of bed walking with PT today. Disposition: Patient lives alone. Rehab consulted however Patient walked 400 feet yesterday DVT prophylaxis, SCDs in place Labs reveiwed- replace electrolytes as needed Plan of care discussed with multidisciplinary team Continue supportive care. ABX as per ID recommendations. Making good progress., Patient was seen and examined with Dr. Prince 05/01/23 POD 4 AAOx3 Patient reports pain controlled. Respiratory: on room air. ALL CT out., Encourage IS, Deep Breathing, CXR reviewed, Cardiac: Remains sinus rhythm, pacing wires on standby GI: Tolerating diet,+ BM yesterday. Continue Bowel regimen UO: 1450 Continue PT/OT out of bed walking with PT today. Disposition: Patient lives alone. Rehab consulted however Patient walked 400 feet yesterday DVT prophylaxis, SCDs in place Labs reveiwed- replace electrolytes as needed Plan of care discussed with multidisciplinary team ABX as per ID recommendations. Give Lasix today, Continuie 05/02/23 POD 5 AAOx3 Patient reports pain controlled. Respiratory: on room air. ALL CT out., Encourage IS, Deep Breathing, CXR reviewed, Cardiac: Remains sinus rhythm, pacing wires on standby GI: Tolerating diet,+ BM Continue Bowel regimen UO: 2500 Continue PT/OT out of bed walking with PT today. Disposition: home DVT prophylaxis, SCDs in place Labs reveiwed- replace electrolytes as needed Plan of care discussed with multidisciplinary team ABX as per ID recommendations. Switch to PO? DVT studies negative Home Tomorrow? Consultants: cardiology, cardiovascular surgery, pulmonary at 1403 at 1725 RPT #:[id number] END OF REPORT [facility] 2023-05-02 06:58:00 [facility] ([facility]) Rehab Progress Note REPORT#:[id number] REPORT STATUS: Signed REPORT INITIALIZATION DATE:05/02/23 TIME: 657 PATIENT: JONG RIVAS UNIT #: [id number] ROOM/BED: [place] [id number] : 67 AGE: 58 SEX: M ATTEND: Domenic Rainey MD ADM AUTHOR: Mayco Wiggins REPT SERVICE DT/TIME: 05/02/23 0658 * ALL edits or amendments must be made on the electronic/computer document * Subjective Chief complaint: PMR follow-up Seen in CVICU Doing well NAD Eating fair Denies ERWIN/N/V/D/CP 14 systems reviewed and neg. except that above. Objective General VS: Vital Signs: Date Time Temp Pulse Resp B/P B/P Pulse O2 O2 Flow FiO2 Mean Ox Delivery Rate 05/02 0501 82 28 114/60 81 95 05/02 0400 75 18 161/81 114 95 05/02 0319 95 Room air 21 05/02 0300 74 19 154/74 107 95 05/02 0200 82 19 121/69 88 95 05/02 0100 75 22 157/78 110 94 05/02 0000 74 20 128/75 97 95 05/01 2300 75 16 117/67 84 94 05/01 2200 73 19 140/73 100 95 05/01 2100 77 20 162/75 108 96 05/01 2000 98.0 05/01 2000 79 25 135/71 96 96 05/01 1949 96 Room air 21 05/01 1900 82 22 118/72 90 97 05/01 1800 99.1 78 23 115/66 83 96 0 05/01 1700 80 12 119/67 89 96 05/01 1600 99.3 75 20 108/74 87 96 0 05/01 1500 83 28 104/67 81 97 05/01 1432 99 Room air 21 05/01 1401 100.1 84 19 117/62 83 97 0 05/01 1350 97 22 131/72 96 97 05/01 1300 69 17 119/70 88 99 05/01 1201 98.1 72 23 134/72 98 97 0 05/01 1126 97 Room air 21 05/01 1100 71 20 124/82 96 97 05/01 1000 77 21 123/74 95 97 05/01 0900 79 22 116/69 87 96 05/01 0800 98.6 73 19 108/68 84 95 0 05/01 0738 96 Room air 21 05/01 0700 80 20 114/65 82 94 PATIENT WEIGHT: Weight (lb): 238 Weight (oz): 15.7 Weight (kg): 108.400 Medications: Active Meds + DC'd Last 24 Hrs Insulin Glargine (Semglee) 20 UNIT BEDTIME SUBQ Magnesium Sulfate (MAGNESIUM SULFATE 2GM/SWFI 50ML) 50 ML ONCE ONE IV ( DC) Insulin Human Lispro (HUMALOG) 7 UNIT AC SUBQ Potassium Chloride (POTASSIUM CHLORIDE 20MEQ TAB.ER) 20 MEQ ONCE ONE PO (DC) Furosemide (LASIX 40 mg/4 mL INJECTION) 40 MG ONCE ONE IV (DC) Insulin Glargine (Semglee) 18 UNIT BEDTIME SUBQ (DC) Ipratropium [place] (ATROVENT) 500 MCG RTQ2H PRN PRN INH Cyanocobalamin (Vitamin B-12 500 mcg tab) 500 MCG DAILY PO Ferrous Sulfate (FERROUS SULFATE) 325 MG DAILY PO Mupirocin (BACTROBAN 2% 22 GM OINTMENT) 1 APPLIC BID NASAL Doxycycline Monohydrate (DOXYCYCLINE MONOHYDRATE) 100 MG Q12HR PO Insulin Human Lispro (HUMALOG) 0 AC HS SUBQ Insulin Human Lispro (HUMALOG) 5 UNIT AC SUBQ (DC) Bisacodyl (DULCOLAX) 10 MG ONCE PRN RECTAL Magnesium Hydroxide (MILK OF MAGNESIA) 30 ML ONCE PRN PO Atorvastatin Calcium (LIPITOR) 40 MG 2100 PO Dextrose/Water (DEXTROSE 10% IN WATER) 250 ML ASDIR PRN IV (CKD) Insulin Human Regular (HumuLIN R) 100 UNIT ASDIR IV (CKD) Sodium Chloride (SODIUM CHLORIDE 0.9%) 99 ML Benzonatate (TESSALON PERLE) 200 MG Q8H PRN PRN PO Piperacillin Sod/Tazobactam Sod (ZOSYN 3.375GM) 3.375 GM Q8H IV Sodium Chloride (SODIUM CHLORIDE 0.9% 100 ML) 100 ML Clopidogrel Bisulfate (Plavix) 75 MG DAILY PO Polyethylene Glycol (MIRALAX) 17 GM DAILY PO Docusate Sodium (COLACE) 100 MG BID PO Metoprolol Tartrate (LOPRESSOR) 12.5 MG Q12HR PO Sennosides (Senna Lax 8.6 MG TABLET) 17.2 MG BEDTIME PO Aspirin (ASPIRIN) 81 MG DAILY PO Pantoprazole (PROTONIX) 40 MG DAILY@0600 PO Amiodarone HCl (CORDARONE) 200 MG TID PO Acetaminophen (TYLENOL) 650 MG Q4H PRN PRN PO Acetaminophen (TYLENOL) 650 MG Q4H PRN PRN RECTAL Calcium Chloride (CALCIUM CHLORIDE) 1 GM ASDIR PRN IV Dextrose/Water (DEXTROSE 10% IN WATER) 125 ML ASDIR PRN IV (CKD) Dextrose/Water (DEXTROSE 10% IN WATER) 250 ML ASDIR PRN IV (CKD) Epinephrine (ADRENALIN CHLORIDE) 4 MG ASDIR IV Dextrose/Water (DEXTROSE 5% WATER) 246 ML Glucagon (GLUCAGON) 1 MG ASDIR PRN IM Magnesium Sulfate (MAGNESIUM SULFATE 4GM/SWFI 100ML) 100 ML ASDIR PRN IV Magnesium Sulfate (MAGNESIUM SULFATE 2GM/SWFI 50ML) 50 ML ASDIR PRN IV Magnesium Sulfate/Dextrose (MAGNESIUM SULFATE 1GM/D5W 100ML) 100 ML ASDIR PRN IV Nitroglycerin/Dextrose (NITROGLYCERIN 50,000MCG/D5W 250ML) 250 ML ASDIR IV Norepinephrine Bitartrate (NOREPINEPHRINE 8 MG/NS 250 ML) 250 ML TITRATE IV Ondansetron HCl (ZOFRAN) 4 MG Q6H PRN PRN IV Oxycodone HCl (ROXICODONE) 5 MG Q4H PRN PRN PO Oxycodone HCl (ROXICODONE) 10 MG Q4H PRN PRN PO Potassium Chloride (KCL 20MEQ/SWFI 100ML) 100 ML ASDIR PRN IV Sodium Bicarbonate (SODIUM BICARBONATE) 50 MEQ ASDIR PRN IV Sodium Chloride (SODIUM CHLORIDE 0.9%) 1,000 ML .Q20H IV Sodium Chloride (SODIUM CHLORIDE 0.9%) 250 ML Q24H IV (DC) Silver Sulfadiazine (SILVADENE 1% 50 GM CREAM) 1 APPLIC Q12HR TOPICAL Gabapentin (NEURONTIN) 200 MG TID PO Functional Progress Functional progress: Ambulating up to 400 feet Physical Exam General appearance: alert, awake Psych: alert, oriented x 3 HEENT: anicteric, sclera clear Neck: supple, no JVD Cardiovascular: regular rate rhythm, S1/S2 Respiratory: aerating well, clear bilaterally Abdomen: bowel sounds present, non-distended, soft Skin: no rash, surgical incisions C/D/I Musculoskeletal - general: Musculoskeletal - general: joints normal, normal muscle mass 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, oriented X 3, CNII-XII intact Results Findings/Data: Laboratory Tests: 05/02 05/02 05/01 05/01 05/01 0205 0205 1929 1520 1518 Chemistry Sodium (134 - 147 mEq/L) 133 L 136 Potassium (3.4 - 5.0 mEq/L) 4.0 4.0 Chloride (100 - 108 mEq/L) 105 104 Carbon Dioxide (21 - 33 mEq/l) 26 26 Anion Gap (0 - 20) 6 11 BUN (7 - 25 mg/dL) 19 19 Creatinine (0.6 - 1.3 mg/dL) 0.9 1.0 Glomerular Filtr Rate (90 - 95) 99.6 H 87.8 L Glucose (77 - 141 mg/dL) 159 H 149 H POC Glucose (70 - 110 MG/DL) 163 H 131 H Calcium (8.0 - 10.5 mg/dL) 8.7 8.5 Phosphorus (2.5 - 4.9 MG/DL) 3.0 Magnesium (1.6 - 2.6 mg/dL) 1.84 1.63 C-Reactive Protein (<10.0 mg/L) 77.0 H Hematology WBC (4.5 - 11.0 x10 3/uL) 9.1 RBC (4.00 - 5.60 x10 6/uL) 3.33 L Hgb (12.5 - 16.9 g/dL) 9.8 L Hct (37.5 - 50.7 %) 30.2 L MCV (81.0 - 99.0 fL) 90.7 MCH (27.0 - 33.0 pg) 29.4 MCHC (33.0 - 37.0 g/dL) 32.5 L RDW (11.5 - 14.5 %) 13.2 Plt Count (150 - 400 x10 3/uL) 292 MPV (7.0 - 9.0 fL) 10.3 H Neut % (Auto) (56.0 - 77.0 %) 71.0 Lymph % (Auto) (14.0 - 32.0 %) 17.5 [place] % (Auto) (4.8 - 9.0 %) 7.4 Eos % (Auto) (0.3 - 3.7 %) 2.8 Baso % (Auto) (0.0 - 2.0 %) 0.6 Neut # (Auto) (2.0 - 7.6 x10 3/uL) 6.44 Lymph # (Auto) (1.0 - 3.8 x10 3/uL) 1.59 [place] # (Auto) (0.1 - 0.8 x10 3/uL) 0.67 Eos # (Auto) (0.0 - 0.2 x10 3/uL) 0.25 H Baso # (Auto) (0.0 - 0.2 x10 3/uL) 0.05 Abs Immat Gran (auto) (0.00 - 0.03 0.06 H x10 3/uL) Immature Gran % (0.0 - 2.0 %) 0.7 Nucleated RBC % (0 - 0 %) 0.0 Nucleated RBCs # (Man) (0.0 - 0.1 0.00 x10 3/uL) ESR Westergren (0 - 15 mm/hr) 106 H 05/01 05/01 1054 0830 Chemistry POC Glucose (70 - 110 MG/DL) 221 H 170 H Diagnosis, Assessment Plan Free Text A P: CABG x5 on 04/27/2023 Postop hypoxemia respiratory insufficiency Generalized weakness Impaired mobility, gait, balance and endurance Postop pain Leukocytosis Diabetes with hyperglycemia Nonhealing left leg ulcer Plan: Continue PT/OT Out of bed to chair Work on ADLs, strength, bed mobility, transfers, gait DVT prophylaxis on SCD Strict fall and safety precautions Monitor p.o. intake and nutrition Strict decubitus precautions Monitor labs Sternal precautions Advance therapies as tolerated. Patient walking between 250 and 400 feet with supervision DC planning for home when appropriate. Consultants: cardiology, cardiovascular surgery, pulmonary Rehab attestation: . at 1646 RPT #:[id number] END OF REPORT [facility] 2023-05-01 14:56:00 [facility] ([facility]) Endocrinology Progress Note REPORT#:[id number] REPORT STATUS: Signed REPORT INITIALIZATION DATE:05/01/23 TIME: 1455 PATIENT: JONG RIVAS UNIT #: [id number] ROOM/BED: [place] [address] : 66 AGE: 58 SEX: M ATTEND: Domenic Rainey MD ADM AUTHOR: Vlad Lay MD REPT SERVICE DT/TIME: 05/01/231455 * ALL edits or amendments must be made on the electronic/computer document * Subjective Patient reports: no complaints Objective General VS: Last Documented: Result Date Time Pulse Ox 99 05/01 1432 FiO2 21 05/01 1432 O2 Delivery Room air 05/01 1432 B/P 117/62 05/01 1401 B/P Mean 83 05/01 1401 Pulse 84 05/01 1401 Resp 19 05/01 1401 O2 Flow Rate 0 05/01 1201 Temp 36.7 05/01 1201 PATIENT WEIGHT: Weight (lb): 186 Weight (oz): 1.12 Weight (kg): 84.400 Medications: Active Meds + DC'd Last 24 Hrs Furosemide (LASIX 40 mg/4 mL INJECTION) 40 MG ONCE ONE IV (DC) Potassium Chloride (POTASSIUM CHLORIDE 20MEQ TAB.ER) 20 MEQ ONCE ONE PO (CAN) Calcium Gluconate (Calcium Gluconate 1 GM/NS 50 mL (B2)) 50 ML ONCE ONE IV (DC) Insulin Glargine (Semglee) 18 UNIT BEDTIME SUBQ Ipratropium [place] (ATROVENT) 500 MCG RTQ2H PRN PRN INH Cyanocobalamin (Vitamin B-12 500 mcg tab) 500 MCG DAILY PO Ferrous Sulfate (FERROUS SULFATE) 325 MG DAILY PO Mupirocin (BACTROBAN 2% 22 GM OINTMENT) 1 APPLIC BID NASAL Tramadol HCl (ULTRAM) 25 MG Q8H PO (DC) Doxycycline Monohydrate (DOXYCYCLINE MONOHYDRATE) 100 MG Q12HR PO Insulin Human Lispro (HUMALOG) 0 AC HS SUBQ Insulin Human Lispro (HUMALOG) 5 UNIT AC SUBQ Bisacodyl (DULCOLAX) 10 MG ONCE PRN RECTAL Magnesium Hydroxide (MILK OF MAGNESIA) 30 ML ONCE PRN PO Atorvastatin Calcium (LIPITOR) 40 MG 2100 PO Dextrose/Water (DEXTROSE 10% IN WATER) 250 ML ASDIR PRN IV (CKD) Insulin Human Regular (HumuLIN R) 100 UNIT ASDIR IV (CKD) Sodium Chloride (SODIUM CHLORIDE 0.9%) 99 ML Benzonatate (TESSALON PERLE) 200 MG Q8H PRN PRN PO Piperacillin Sod/Tazobactam Sod (ZOSYN 3.375GM) 3.375 GM Q8H IV Sodium Chloride (SODIUM CHLORIDE 0.9% 100 ML) 100 ML Clopidogrel Bisulfate (Plavix) 75 MG DAILY PO Polyethylene Glycol (MIRALAX) 17 GM DAILY PO Docusate Sodium (COLACE) 100 MG BID PO Metoprolol Tartrate (LOPRESSOR) 12.5 MG Q12HR PO Sennosides (Senna Lax 8.6 MG TABLET) 17.2 MG BEDTIME PO Aspirin (ASPIRIN) 81 MG DAILY PO Pantoprazole (PROTONIX) 40 MG DAILY@0600 PO Amiodarone HCl (CORDARONE) 200 MG TID PO Acetaminophen (TYLENOL) 650 MG Q4H PRN PRN PO Acetaminophen (TYLENOL) 650 MG Q4H PRN PRN RECTAL Calcium Chloride (CALCIUM CHLORIDE) 1 GM ASDIR PRN IV Dextrose/Water (DEXTROSE 10% IN WATER) 125 ML ASDIR PRN IV (CKD) Dextrose/Water (DEXTROSE 10% IN WATER) 250 ML ASDIR PRN IV (CKD) Epinephrine (ADRENALIN CHLORIDE) 4 MG ASDIR IV Dextrose/Water (DEXTROSE 5% WATER) 246 ML Glucagon (GLUCAGON) 1 MG ASDIR PRN IM Magnesium Sulfate (MAGNESIUM SULFATE 4GM/SWFI 100ML) 100 ML ASDIR PRN IV Magnesium Sulfate (MAGNESIUM SULFATE 2GM/SWFI 50ML) 50 ML ASDIR PRN IV Magnesium Sulfate/Dextrose (MAGNESIUM SULFATE 1GM/D5W 100ML) 100 ML ASDIR PRN IV Nitroglycerin/Dextrose (NITROGLYCERIN 50,000MCG/D5W 250ML) 250 ML ASDIR IV Norepinephrine Bitartrate (NOREPINEPHRINE 8 MG/NS 250 ML) 250 ML TITRATE IV Ondansetron HCl (ZOFRAN) 4 MG Q6H PRN PRN IV Oxycodone HCl (ROXICODONE) 5 MG Q4H PRN PRN PO Oxycodone HCl (ROXICODONE) 10 MG Q4H PRN PRN PO Potassium Chloride (KCL 20MEQ/SWFI 100ML) 100 ML ASDIR PRN IV Sodium Bicarbonate (SODIUM BICARBONATE) 50 MEQ ASDIR PRN IV Sodium Chloride (SODIUM CHLORIDE 0.9%) 1,000 ML .Q20H IV Sodium Chloride (SODIUM CHLORIDE 0.9%) 250 ML Q24H IV (DC) Silver Sulfadiazine (SILVADENE 1% 50 GM CREAM) 1 APPLIC Q12HR TOPICAL Gabapentin (NEURONTIN) 200 MG TID PO Physical Exam General appearance: alert, awake Diagnosis, Assessment Plan Hospital course to date: Laboratory Tests: 05/01 05/01 05/01 04/30 04/30 1054 0830 0203 1902 1857 Chemistry Sodium (134 - 147 mEq/L) 134 134 Potassium (3.4 - 5.0 mEq/L) 4.1 3.6 Chloride (100 - 108 mEq/L) 105 109 H Carbon Dioxide (21 - 33 mEq/l) 24 21 Anion Gap (0 - 20) 9 8 BUN (7 - 25 mg/dL) 18 20 Creatinine (0.6 - 1.3 mg/dL) 0.9 1.0 Glomerular Filtr Rate (90 - 95) 99.6 H 87.8 L Glucose (77 - 141 mg/dL) 182 H 157 H POC Glucose (70 - 110 MG/DL) 221 H 170 H 157 H Calcium (8.0 - 10.5 mg/dL) 8.8 9.0 Ionized Calcium [place] (1.09 - 1.30 MMOL/L) 1.09 Magnesium (1.6 - 2.6 mg/dL) 2.03 1.80 Hematology WBC (4.5 - 11.0 x10 3/uL) 9.4 RBC (4.00 - 5.60 x10 6/uL) 3.18 L Hgb (12.5 - 16.9 g/dL) 9.4 L Hct (37.5 - 50.7 %) 29.1 L MCV (81.0 - 99.0 fL) 91.5 MCH (27.0 - 33.0 pg) 29.6 MCHC (33.0 - 37.0 g/dL) 32.3 L RDW (11.5 - 14.5 %) 13.1 Plt Count (150 - 400 x10 3/uL) 239 MPV (7.0 - 9.0 fL) 10.7 H Neut % (Auto) (56.0 - 77.0 %) 73.4 Lymph % (Auto) (14.0 - 32.0 %) 14.7 [place] % (Auto) (4.8 - 9.0 %) 8.3 Eos % (Auto) (0.3 - 3.7 %) 2.5 Baso % (Auto) (0.0 - 2.0 %) 0.5 Neut # (Auto) (2.0 - 7.6 x10 3/uL) 6.86 Lymph # (Auto) (1.0 - 3.8 x10 3/uL) 1.38 [place] # (Auto) (0.1 - 0.8 x10 3/uL) 0.78 Eos # (Auto) (0.0 - 0.2 x10 3/uL) 0.23 H Baso # (Auto) (0.0 - 0.2 x10 3/uL) 0.05 Abs Immat Gran (auto) (0.00 - 0.03 0.06 H x10 3/uL) Immature Gran % (0.0 - 2.0 %) 0.6 Nucleated RBC % (0 - 0 %) 0.0 Nucleated RBCs # (Man) (0.0 - 0.1 0.00 x10 3/uL) 04/30 1632 Chemistry POC Glucose (70 - 110 MG/DL) 188 H Recent Impressions: RADIOLOGY - XR CHEST 1 V 05/01 0721 Report Impression - Status: SIGNED Entered: 05/01/2023 7252 IMPRESSION: 1. Expected post-CABG changes with mild central vascular congestion. Impression By: Christine Do M.D. Laboratory Tests: 04/30 04/30 04/30 04/29 0809 0221 220 1931 Chemistry Sodium (134 - 147 mEq/L) 132 L Potassium (3.4 - 5.0 mEq/L) 4.2 Chloride (100 - 108 mEq/L) 105 Carbon Dioxide (21 - 33 mEq/l) 20 L Anion Gap (0 - 20) 11 BUN (7 - 25 mg/dL) 16 Creatinine (0.6 - 1.3 mg/dL) 0.9 Glomerular Filtr Rate (90 - 95) 99.6 H Glucose (77 - 141 mg/dL) 205 H POC Glucose (70 - 110 MG/DL) 181 H 267 H Calcium (8.0 - 10.5 mg/dL) 8.8 Ionized Calcium [place] (1.09 - 1.30 MMOL/L) 1.05 L Magnesium (1.6 - 2.6 mg/dL) 1.87 Total Bilirubin (0.0 - 1.0 mg/dL) 0.40 Direct Bilirubin (0.1 - 0.3 MG/DL) 0.20 Indirect Bilirubin (MG/DL) 0.20 AST (8 - 34 IUnit/L) 23 ALT (10 - 49 IUnit/L) 19 Total Alk Phosphatase (20 - 125 IUnit/L) 62 Total Protein (6.4 - 8.2 g/dL) 6.5 Albumin (3.4 - 5.0 g/dL) 3.20 L Hematology WBC (4.5 - 11.0 x10 3/uL) 13.1 H RBC (4.00 - 5.60 x10 6/uL) 3.41 L Hgb (12.5 - 16.9 g/dL) 10.0 L Hct (37.5 - 50.7 %) 31.1 L MCV (81.0 - 99.0 fL) 91.2 MCH (27.0 - 33.0 pg) 29.3 MCHC (33.0 - 37.0 g/dL) 32.2 L RDW (11.5 - 14.5 %) 13.1 Plt Count (150 - 400 x10 3/uL) 249 MPV (7.0 - 9.0 fL) 10.8 H Neut % (Auto) (56.0 - 77.0 %) 78.3 H Lymph % (Auto) (14.0 - 32.0 %) 11.3 L [place] % (Auto) (4.8 - 9.0 %) 8.3 Eos % (Auto) (0.3 - 3.7 %) 1.3 Baso % (Auto) (0.0 - 2.0 %) 0.2 Neut # (Auto) (2.0 - 7.6 x10 3/uL) 10.28 H Lymph # (Auto) (1.0 - 3.8 x10 3/uL) 1.49 [place] # (Auto) (0.1 - 0.8 x10 3/uL) 1.09 H Eos # (Auto) (0.0 - 0.2 x10 3/uL) 0.17 Baso # (Auto) (0.0 - 0.2 x10 3/uL) 0.03 Abs Immat Gran (auto) (0.00 - 0.03 0.08 H x10 3/uL) Immature Gran % (0.0 - 2.0 %) 0.6 Nucleated RBC % (0 - 0 %) 0.0 Nucleated RBCs # (Man) (0.0 - 0.1 x10 3/uL) 0.00 04/29 04/29 1706 1413 Chemistry Sodium (134 - 147 mEq/L) 137 Potassium (3.4 - 5.0 mEq/L) 3.8 Chloride (100 - 108 mEq/L) 106 Carbon Dioxide (21 - 33 mEq/l) 21 Anion Gap (0 - 20) 14 BUN (7 - 25 mg/dL) 24 Creatinine (0.6 - 1.3 mg/dL) 1.0 Glomerular Filtr Rate (90 - 95) 87.8 L Glucose (77 - 141 mg/dL) 246 H POC Glucose (70 - 110 MG/DL) 216 H Calcium (8.0 - 10.5 mg/dL) 8.5 Phosphorus (2.5 - 4.9 MG/DL) 1.9 L Magnesium (1.6 - 2.6 mg/dL) 1.84 Recent Impressions: RADIOLOGY - XR CHEST 1 V 04/30 0746 Report Impression - Status: SIGNED Entered: 04/30/2023 0817 IMPRESSION: 1. Expected post-CABG changes with interval removal of the mediastinal drains. No pneumothorax. Impression By: [email or web address] - Silas Do M.D. Laboratory Tests: 04/29 04/29 04/29 04/29 04/29 1706 1413 1207 1007 0802 Chemistry Sodium (134 - 147 mEq/L) 137 Potassium (3.4 - 5.0 mEq/L) 3.8 Chloride (100 - 108 mEq/L) 106 Carbon Dioxide (21 - 33 mEq/l) 21 Anion Gap (0 - 20) 14 BUN (7 - 25 mg/dL) 24 Creatinine (0.6 - 1.3 mg/dL) 1.0 Glomerular Filtr Rate (90 - 95) 87.8 L Glucose (77 - 141 mg/dL) 246 H POC Glucose (70 - 110 MG/DL) 216 H 171 H 186 H 184 H Calcium (8.0 - 10.5 mg/dL) 8.5 Phosphorus (2.5 - 4.9 MG/DL) 1.9 L Magnesium (1.6 - 2.6 mg/dL) 1.84 04/29 04/29 04/29 04/28 0624 0228 0026 2131 Chemistry Sodium (134 - 147 mEq/L) 135 Potassium (3.4 - 5.0 mEq/L) 4.2 Chloride (100 - 108 mEq/L) 108 Carbon Dioxide (21 - 33 mEq/l) 21 Anion Gap (0 - 20) 11 BUN (7 - 25 mg/dL) 24 Creatinine (0.6 - 1.3 mg/dL) 1.1 Glomerular Filtr Rate (90 - 95) 78.3 L Glucose (77 - 141 mg/dL) 241 H POC Glucose (70 - 110 MG/DL) 199 H 217 H 253 H Calcium (8.0 - 10.5 mg/dL) 8.9 Magnesium (1.6 - 2.6 mg/dL) 2.23 Total Bilirubin (0.0 - 1.0 mg/dL) 0.50 Direct Bilirubin (0.1 - 0.3 MG/DL) 0.30 Indirect Bilirubin (MG/DL) 0.20 AST (8 - 34 IUnit/L) 25 ALT (10 - 49 IUnit/L) 22 Total Alk Phosphatase (20 - 125 IUnit/L) 63 Total Protein (6.4 - 8.2 g/dL) 6.6 Albumin (3.4 - 5.0 g/dL) 3.50 Hematology WBC (4.5 - 11.0 x10 3/uL) 14.5 H RBC (4.00 - 5.60 x10 6/uL) 3.33 L Hgb (12.5 - 16.9 g/dL) 10.2 L Hct (37.5 - 50.7 %) 30.5 L MCV (81.0 - 99.0 fL) 91.6 MCH (27.0 - 33.0 pg) 30.6 MCHC (33.0 - 37.0 g/dL) 33.4 RDW (11.5 - 14.5 %) 13.1 Plt Count (150 - 400 x10 3/uL) 254 MPV (7.0 - 9.0 fL) 10.5 H Neut % (Auto) (56.0 - 77.0 %) 84.5 H Lymph % (Auto) (14.0 - 32.0 %) 6.5 L [place] % (Auto) (4.8 - 9.0 %) 8.1 Eos % (Auto) (0.3 - 3.7 %) 0.1 L Baso % (Auto) (0.0 - 2.0 %) 0.1 Neut # (Auto) (2.0 - 7.6 x10 3/uL) 12.28 H Lymph # (Auto) (1.0 - 3.8 x10 3/uL) 0.94 L [place] # (Auto) (0.1 - 0.8 x10 3/uL) 1.17 H Eos # (Auto) (0.0 - 0.2 x10 3/uL) 0.01 Baso # (Auto) (0.0 - 0.2 x10 3/uL) 0.01 Abs Immat Gran (auto) (0.00 - 0.03 x10 3/uL) 0.10 H Immature Gran % (0.0 - 2.0 %) 0.7 Nucleated RBC % (0 - 0 %) 0.0 Nucleated RBCs # (Man) (0.0 - 0.1 x10 3/uL) 0.00 Recent Impressions: RADIOLOGY - XR CHEST 1 V 04/29 9954 Report Impression - Status: SIGNED Entered: 04/29/2023 0814 IMPRESSION: Signs of trace vascular congestion and central pulmonary edema. Suspect trace bilateral pleural effusions. Stable lines and tubes. Impression By: [email or web address] - Adilson Ordaz D.O. Laboratory Tests: 04/28 04/28 04/28 04/28 04/28 1449 1346 1054 0908 0626 Chemistry Sodium (134 - 147 mEq/L) 135 Potassium (3.4 - 5.0 mEq/L) 4.5 Chloride (100 - 108 mEq/L) 110 H Carbon Dioxide (21 - 33 mEq/l) 19 L Anion Gap (0 - 20) 10 BUN (7 - 25 mg/dL) 26 H Creatinine (0.6 - 1.3 mg/dL) 1.2 Glomerular Filtr Rate (90 - 95) 70.5 L Glucose (77 - 141 mg/dL) 186 H POC Glucose (70 - 110 MG/DL) 144 H 149 H 135 H 140 H Calcium (8.0 - 10.5 mg/dL) 8.7 Ionized Calcium [place] (1.09 - 1.30 MMOL/L) 1.13 Magnesium (1.6 - 2.6 mg/dL) 2.19 04/28 04/28 04/28 04/27 0211 0201 0104 2233 Blood Gas Puncture Site Art Line Art Line O2 Saturation (90 - 100 %) 94.0 97.3 ABG pH (7.35 - 7.45) 7.365 7.359 ABG pCO2 (35.0 - 45 mmHg) 34.0 L 34.7 L ABG pO2 (80 - 100.0 mmHg) 73.3 L 96.9 ABG HCO3 (22.0 - 26.0 MMOL/L) 19.4 L 19.6 L ABG Total CO2 20.5 20.7 ABG Base Excess (-4.0 - 4.0 MMOL/L) -5.9 L -5.8 L ABG Hematocrit (37.5 - 50.7 %) 32 L 32 L ABG Hemoglobin (12.5 - 16.9 G/DL) 10.9 L 10.9 L Sodium (134 - 147 mmol/L) 140 140 Potassium (3.4 - 5.0 mmol/L) 4.7 4.8 Chloride (100 - 108 mmol/L) 110 H 110 H Ionized Calcium (1.12 - 1.32 MMOL/L) 1.24 1.20 Lactic Acid (0.9 - 1.7 mmol/l) 0.5 L 0.9 Temperature (F) 99 98.6 O2 Delivery Device Cannula Cannula Chemistry Sodium (134 - 147 mEq/L) 139 Potassium (3.4 - 5.0 mEq/L) 4.6 Chloride (100 - 108 mEq/L) 111 H Carbon Dioxide (21 - 33 mEq/l) 21 Anion Gap (0 - 20) 12 BUN (7 - 25 mg/dL) 25 Creatinine (0.6 - 1.3 mg/dL) 0.9 POC Creatinine (0.8 - 1.3 mg/dL) 0.8 1.0 Glomerular Filtr Rate (90 - 95) 99.6 H Glucose (77 - 141 mg/dL) 142 H POC Glucose (70 - 110 MG/DL) 121 H POC Glucose (mg/dL) (70 - 110 MG/DL) 138 H 150 H Calcium (8.0 - 10.5 mg/dL) 8.5 Magnesium (1.6 - 2.6 mg/dL) 1.84 Total Bilirubin (0.0 - 1.0 mg/dL) 0.40 Direct Bilirubin (0.1 - 0.3 MG/DL) 0.20 Indirect Bilirubin (MG/DL) 0.20 AST (8 - 34 IUnit/L) 42 H ALT (10 - 49 IUnit/L) 25 Total Alk Phosphatase (20 - 125 IUnit/L) 58 Total Protein (6.4 - 8.2 g/dL) 6.0 L Albumin (3.4 - 5.0 g/dL) 3.20 L Hematology WBC (4.5 - 11.0 x10 3/uL) 13.8 H RBC (4.00 - 5.60 x10 6/uL) 3.44 L Hgb (12.5 - 16.9 g/dL) 10.2 L Hct (37.5 - 50.7 %) 31.1 L MCV (81.0 - 99.0 fL) 90.4 MCH (27.0 - 33.0 pg) 29.7 MCHC (33.0 - 37.0 g/dL) 32.8 L RDW (11.5 - 14.5 %) 12.7 Plt Count (150 - 400 x10 3/uL) 260 MPV (7.0 - 9.0 fL) 10.0 H Neut % (Auto) (56.0 - 77.0 %) 88.7 H Lymph % (Auto) (14.0 - 32.0 %) 4.0 L [place] % (Auto) (4.8 - 9.0 %) 6.7 Eos % (Auto) (0.3 - 3.7 %) 0.0 L Baso % (Auto) (0.0 - 2.0 %) 0.1 Neut # (Auto) (2.0 - 7.6 x10 3/uL) 12.23 H Lymph # (Auto) (1.0 - 3.8 x10 3/uL) 0.55 L [place] # (Auto) (0.1 - 0.8 x10 3/uL) 0.92 H Eos # (Auto) (0.0 - 0.2 x10 3/uL) 0.00 Baso # (Auto) (0.0 - 0.2 x10 3/uL) 0.01 Abs Immat Gran (auto) (0.00 - 0.03 0.07 H x10 3/uL) Immature Gran % (0.0 - 2.0 %) 0.5 Nucleated RBC % (0 - 0 %) 0.0 Nucleated RBCs # (Man) (0.0 - 0.1 0.00 x10 3/uL) 04/275 2004 Chemistry POC Glucose (70 - 110 MG/DL) 145 H 157 H Recent Impressions: RADIOLOGY - XR CHEST 1 V 04/28 0518 Report Impression - Status: SIGNED Entered: 04/28/2023 0830 IMPRESSION: Lines and tubes, as detailed above. Pulmonary edema and small left pleural effusion again noted. Enlarged cardiomediastinal silhouette. Impression By: DR.SHEAL Janiya Jiménez M.D. RADIOLOGY - XR CHEST 1 V 04/28 1716 Report Impression - Status: SIGNED Entered: 04/28/2023 4799 IMPRESSION: Improved mild bilateral interstitial infiltrates. Trace effusions. Impression By: Zane Powers M.D. Laboratory Tests: 04/27 04/27 04/27 04/27 04/27 1424 1422 1348 1347 1235 Blood Gas O2 Saturation (90 - 100 %) 100.0 99.7 ABG pH (7.35 - 7.45) 7.380 7.257 *L ABG pCO2 (35.0 - 45 mmHg) 41.5 45.1 H ABG pO2 (80 - 100.0 mmHg) 381.1 *H 238.6 *H ABG HCO3 (22.0 - 26.0 MMOL/L) 24.6 20.1 L ABG Total CO2 25.8 21.5 ABG Base Excess (-4.0 - 4.0 -0.6 -6.8 L MMOL/L) ABG Hematocrit (37.5 - 50.7 %) 29 L 33 L ABG Hemoglobin (12.5 - 16.9 G/DL) 9.7 L 11.3 L Sodium (134 - 147 mmol/L) 140 139 Potassium (3.4 - 5.0 mmol/L) 5.6 H 4.1 Chloride (100 - 108 mmol/L) 108 108 Ionized Calcium (1.12 - 1.32 1.11 L 1.14 MMOL/L) Lactic Acid (0.9 - 1.7 mmol/l) < 0.3 L 0.3 L Chemistry POC Creatinine (0.8 - 1.3 mg/dL) 0.7 L 0.5 L POC Glucose (mg/dL) (70 - 110 155 H 165 H MG/DL) Coagulation Activated Coag Time (74 - 137 SEC) > 1000 H 677 H 152 H 04/27 04/27 04/27 04/27 1233 0828 0651 0322 Blood Gas O2 Saturation (90 - 100 %) 99.8 ABG pH (7.35 - 7.45) 7.331 L ABG pCO2 (35.0 - 45 mmHg) 32.2 L ABG pO2 (80 - 100.0 mmHg) 252.0 *H ABG HCO3 (22.0 - 26.0 MMOL/L) 17.0 *L ABG Total CO2 18.0 ABG Base Excess (-4.0 - 4.0 MMOL/L) -8.0 L ABG Hematocrit (37.5 - 50.7 %) 32 L ABG Hemoglobin (12.5 - 16.9 G/DL) 11.0 L Sodium (134 - 147 mmol/L) 143 Potassium (3.4 - 5.0 mmol/L) 3.5 Chloride (100 - 108 mmol/L) 113 H Ionized Calcium (1.12 - 1.32 MMOL/L) 1.09 L Lactic Acid (0.9 - 1.7 mmol/l) < 0.3 L Chemistry Sodium (134 - 147 mEq/L) 135 Potassium (3.4 - 5.0 mEq/L) 4.5 Chloride (100 - 108 mEq/L) 108 Carbon Dioxide (21 - 33 mEq/l) 23 Anion Gap (0 - 20) 8 BUN (7 - 25 mg/dL) 22 Creatinine (0.6 - 1.3 mg/dL) 0.9 POC Creatinine (0.8 - 1.3 mg/dL) 0.5 L Glomerular Filtr Rate (90 - 95) 99.6 H Glucose (77 - 141 mg/dL) 131 POC Glucose (70 - 110 MG/DL) 150 H POC Glucose (mg/dL) (70 - 110 MG/DL) 139 H Calcium (8.0 - 10.5 mg/dL) 9.2 Magnesium (1.6 - 2.6 mg/dL) 1.66 Coagulation INR (0.8 - 1.2) 1.5 H PTT ([place]) (25.0 - 39.5 Seconds) 32.7 PT Patient/Control Mix (9.3 - 12.9 SECONDS) 16.4 H Hematology WBC (4.5 - 11.0 x10 3/uL) 7.1 RBC (4.00 - 5.60 x10 6/uL) 4.00 Hgb (12.5 - 16.9 g/dL) 12.0 L Hct (37.5 - 50.7 %) 36.3 L MCV (81.0 - 99.0 fL) 90.8 MCH (27.0 - 33.0 pg) 30.0 MCHC (33.0 - 37.0 g/dL) 33.1 RDW (11.5 - 14.5 %) 12.3 Plt Count (150 - 400 x10 3/uL) 277 MPV (7.0 - 9.0 fL) 10.1 H Neut % (Auto) (56.0 - 77.0 %) 60.0 Lymph % (Auto) (14.0 - 32.0 %) 29.4 [place] % (Auto) (4.8 - 9.0 %) 7.5 Eos % (Auto) (0.3 - 3.7 %) 1.8 Baso % (Auto) (0.0 - 2.0 %) 0.7 Neut # (Auto) (2.0 - 7.6 x10 3/uL) 4.27 Lymph # (Auto) (1.0 - 3.8 x10 3/uL) 2.09 [place] # (Auto) (0.1 - 0.8 x10 3/uL) 0.53 Eos # (Auto) (0.0 - 0.2 x10 3/uL) 0.13 Baso # (Auto) (0.0 - 0.2 x10 3/uL) 0.05 Abs Immat Gran (auto) (0.00 - 0.03 0.04 H x10 3/uL) Immature Gran % (0.0 - 2.0 %) 0.6 Nucleated RBC % (0 - 0 %) 0.0 Nucleated RBCs # (Man) (0.0 - 0.1 x10 3/uL) 0.00 Serology SARS-CoV-2 Ag (Rapid) (Negative) Negative 04/26 1601 Chemistry POC Glucose (70 - 110 MG/DL) 175 H 164 H Microbiology: Date/Time Procedure - Status Source Growth 04/27 828 MSSA Surveillance Screen - RECD NASAL 04/27 828 MRSA DNA Surveillance Screen - RECD NASAL Laboratory Tests: 04/26 04/26 04/26 04/25 1123 0714 0545 2028 Chemistry Sodium (134 - 147 mEq/L) 137 Potassium (3.4 - 5.0 mEq/L) 4.6 Chloride (100 - 108 mEq/L) 107 Carbon Dioxide (21 - 33 mEq/l) 23 Anion Gap (0 - 20) 12 BUN (7 - 25 mg/dL) 28 H Creatinine (0.6 - 1.3 mg/dL) 1.0 Glomerular Filtr Rate (90 - 95) 87.8 L Glucose (77 - 141 mg/dL) 137 POC Glucose (70 - 110 MG/DL) 192 H 137 H 214 H Calcium (8.0 - 10.5 mg/dL) 9.2 Magnesium (1.6 - 2.6 mg/dL) 1.64 Hematology WBC (4.5 - 11.0 x10 3/uL) 7.5 RBC (4.00 - 5.60 x10 6/uL) 3.95 L Hgb (12.5 - 16.9 g/dL) 11.9 L Hct (37.5 - 50.7 %) 35.8 L MCV (81.0 - 99.0 fL) 90.6 MCH (27.0 - 33.0 pg) 30.1 MCHC (33.0 - 37.0 g/dL) 33.2 RDW (11.5 - 14.5 %) 12.4 Plt Count (150 - 400 x10 3/uL) 289 MPV (7.0 - 9.0 fL) 10.2 H Neut % (Auto) (56.0 - 77.0 %) 58.7 Lymph % (Auto) (14.0 - 32.0 %) 30.8 [place] % (Auto) (4.8 - 9.0 %) 7.8 Eos % (Auto) (0.3 - 3.7 %) 1.7 Baso % (Auto) (0.0 - 2.0 %) 0.5 Neut # (Auto) (2.0 - 7.6 x10 3/uL) 4.38 Lymph # (Auto) (1.0 - 3.8 x10 3/uL) 2.30 [place] # (Auto) (0.1 - 0.8 x10 3/uL) 0.58 Eos # (Auto) (0.0 - 0.2 x10 3/uL) 0.13 Baso # (Auto) (0.0 - 0.2 x10 3/uL) 0.04 Abs Immat Gran (auto) (0.00 - 0.03 x10 3/uL) 0.04 H Immature Gran % (0.0 - 2.0 %) 0.5 Nucleated RBC % (0 - 0 %) 0.0 Nucleated RBCs # (Man) (0.0 - 0.1 x10 3/uL) 0.00 Laboratory Tests: 04/25 04/25 04/25 04/24 1129 7055 5146 2002 Chemistry Sodium (134 - 147 mEq/L) 134 Potassium (3.4 - 5.0 mEq/L) 4.2 Chloride (100 - 108 mEq/L) 105 Carbon Dioxide (21 - 33 mEq/l) 23 Anion Gap (0 - 20) 11 BUN (7 - 25 mg/dL) 26 H Creatinine (0.6 - 1.3 mg/dL) 1.0 Glomerular Filtr Rate (90 - 95) 87.8 L Glucose (77 - 141 mg/dL) 168 H POC Glucose (70 - 110 MG/DL) 214 H 158 H 347 H Calcium (8.0 - 10.5 mg/dL) 9.2 Magnesium (1.6 - 2.6 mg/dL) 1.60 Hematology WBC (4.5 - 11.0 x10 3/uL) 11.9 H RBC (4.00 - 5.60 x10 6/uL) 3.89 L Hgb (12.5 - 16.9 g/dL) 11.6 L Hct (37.5 - 50.7 %) 34.7 L MCV (81.0 - 99.0 fL) 89.2 MCH (27.0 - 33.0 pg) 29.8 MCHC (33.0 - 37.0 g/dL) 33.4 RDW (11.5 - 14.5 %) 12.5 Plt Count (150 - 400 x10 3/uL) 316 MPV (7.0 - 9.0 fL) 10.5 H Neut % (Auto) (56.0 - 77.0 %) 80.7 H Lymph % (Auto) (14.0 - 32.0 %) 11.5 L [place] % (Auto) (4.8 - 9.0 %) 6.9 Eos % (Auto) (0.3 - 3.7 %) 0.2 L Baso % (Auto) (0.0 - 2.0 %) 0.2 Neut # (Auto) (2.0 - 7.6 x10 3/uL) 9.65 H Lymph # (Auto) (1.0 - 3.8 x10 3/uL) 1.37 [place] # (Auto) (0.1 - 0.8 x10 3/uL) 0.82 H Eos # (Auto) (0.0 - 0.2 x10 3/uL) 0.02 Baso # (Auto) (0.0 - 0.2 x10 3/uL) 0.02 Abs Immat Gran (auto) (0.00 - 0.03 x10 3/uL) 0.06 H Add Manual Diff NO Immature Gran % (0.0 - 2.0 %) 0.5 Nucleated RBC % (0 - 0 %) 0.0 Nucleated RBCs # (Man) (0.0 - 0.1 x10 3/uL) 0.00 Laboratory Tests: 04/24 04/24 04/24 04/24 04/24 1532 1108 1013 0645 0301 Chemistry Sodium (134 - 147 mEq/L) 135 Potassium (3.4 - 5.0 mEq/L) 4.3 Chloride (100 - 108 mEq/L) 106 Carbon Dioxide (21 - 33 mEq/l) 21 Anion Gap (0 - 20) 13 BUN (7 - 25 mg/dL) 18 Creatinine (0.6 - 1.3 mg/dL) 0.9 Glomerular Filtr Rate (90 - 95) 99.6 H Glucose (77 - 141 mg/dL) 113 POC Glucose (70 - 110 MG/DL) 310 H 176 H 149 H 141 H Calcium (8.0 - 10.5 mg/dL) 9.2 Magnesium (1.6 - 2.6 mg/dL) 1.68 Hematology WBC (4.5 - 11.0 x10 3/uL) 7.8 RBC (4.00 - 5.60 x10 6/uL) 3.93 L Hgb (12.5 - 16.9 g/dL) 11.7 L Hct (37.5 - 50.7 %) 35.6 L MCV (81.0 - 99.0 fL) 90.6 MCH (27.0 - 33.0 pg) 29.8 MCHC (33.0 - 37.0 g/dL) 32.9 L RDW (11.5 - 14.5 %) 12.3 Plt Count (150 - 400 x10 3/uL) 278 MPV (7.0 - 9.0 fL) 10.0 H Neut % (Auto) (56.0 - 77.0 %) 68.0 Lymph % (Auto) (14.0 - 32.0 %) 21.2 [place] % (Auto) (4.8 - 9.0 %) 7.9 Eos % (Auto) (0.3 - 3.7 %) 1.9 Baso % (Auto) (0.0 - 2.0 %) 0.4 Neut # (Auto) (2.0 - 7.6 x10 3/uL) 5.28 Lymph # (Auto) (1.0 - 3.8 x10 3/uL) 1.65 [place] # (Auto) (0.1 - 0.8 x10 3/uL) 0.61 Eos # (Auto) (0.0 - 0.2 x10 3/uL) 0.15 Baso # (Auto) (0.0 - 0.2 x10 3/uL) 0.03 Abs Immat Gran (auto) (0.00 - 0.03 0.05 H x10 3/uL) Immature Gran % (0.0 - 2.0 %) 0.6 Nucleated RBC % (0 - 0 %) 0.0 Nucleated RBCs # (Man) (0.0 - 0.1 0.00 x10 3/uL) 04/23 2019 Chemistry POC Glucose (70 - 110 MG/DL) 276 H Microbiology: Date/Time Procedure - Status Source Growth 04/24 1000 Tissue Culture - RES TISSUE 04/24 1000 Anaerobic Culture - RES TISSUE 04/24 1000 Gram Stain - RES TISSUE Laboratory Tests: 04/23 04/23 04/23 04/23 04/23 1550 1110 0703 0330 0330 Chemistry Sodium (134 - 147 mEq/L) 137 Potassium (3.4 - 5.0 mEq/L) 3.9 Chloride (100 - 108 mEq/L) 105 Carbon Dioxide (21 - 33 mEq/l) 22 Anion Gap (0 - 20) 14 BUN (7 - 25 mg/dL) 25 Creatinine (0.6 - 1.3 mg/dL) 1.1 Glomerular Filtr Rate (90 - 95) 78.3 L Glucose (77 - 141 mg/dL) 131 POC Glucose (70 - 110 MG/DL) 265 H 284 H 143 H Calcium (8.0 - 10.5 mg/dL) 9.4 Magnesium (1.6 - 2.6 mg/dL) 1.72 Hematology WBC (4.5 - 11.0 x10 3/uL) 10.1 RBC (4.00 - 5.60 x10 6/uL) 4.24 Hgb (12.5 - 16.9 g/dL) 12.7 Hct (37.5 - 50.7 %) 38.4 MCV (81.0 - 99.0 fL) 90.6 MCH (27.0 - 33.0 pg) 30.0 MCHC (33.0 - 37.0 g/dL) 33.1 RDW (11.5 - 14.5 %) 12.3 Plt Count (150 - 400 x10 3/uL) 332 MPV (7.0 - 9.0 fL) 10.3 H Neut % (Auto) (56.0 - 77.0 %) 71.8 Lymph % (Auto) (14.0 - 32.0 %) 18.0 [place] % (Auto) (4.8 - 9.0 %) 8.4 Eos % (Auto) (0.3 - 3.7 %) 0.8 Baso % (Auto) (0.0 - 2.0 %) 0.4 Neut # (Auto) (2.0 - 7.6 x10 3/uL) 7.28 Lymph # (Auto) (1.0 - 3.8 x10 3/uL) 1.82 [place] # (Auto) (0.1 - 0.8 x10 3/uL) 0.85 H Eos # (Auto) (0.0 - 0.2 x10 3/uL) 0.08 Baso # (Auto) (0.0 - 0.2 x10 3/uL) 0.04 Abs Immat Gran (auto) (0.00 - 0.03 0.06 H x10 3/uL) Immature Gran % (0.0 - 2.0 %) 0.6 Nucleated RBC % (0 - 0 %) 0.0 Nucleated RBCs # (Man) (0.0 - 0.1 0.00 x10 3/uL) 04/23 04/22 0252 2121 Chemistry POC Glucose (70 - 110 MG/DL) 197 H Toxicology Vancomycin Trough (10.0 - 20.0 mcg/mL) 12.1 Recent Impressions: MAGNETIC RESONANCE IMAGING - MRI LOW EXT W/O CONT LT 04/23 1034 Report Impression - Status: SIGNED Entered: 04/23/2023 1207 IMPRESSION: 5th MTP effusion/possible septic arthritis with osteomyelitis changes as detailed. No drainable soft tissue abscess. Impression By: [email or web address] - Aaron Lemuel Goldberg M.D. Laboratory Tests: 04/227 1555 Chemistry Sodium (134 - 147 mEq/L) 139 Potassium (3.4 - 5.0 mEq/L) 4.3 Chloride (100 - 108 mEq/L) 108 Carbon Dioxide (21 - 33 mEq/l) 22 Anion Gap (0 - 20) 14 BUN (7 - 25 mg/dL) 17 Creatinine (0.6 - 1.3 mg/dL) 0.9 Glomerular Filtr Rate (90 - 95) 99.6 H Glucose (77 - 141 mg/dL) 124 POC Glucose (70 - 110 MG/DL) 232 H 133 H Calcium (8.0 - 10.5 mg/dL) 9.0 Hematology WBC (4.5 - 11.0 x10 3/uL) 8.6 RBC (4.00 - 5.60 x10 6/uL) 3.89 L Hgb (12.5 - 16.9 g/dL) 11.5 L Hct (37.5 - 50.7 %) 36.2 L MCV (81.0 - 99.0 fL) 93.1 MCH (27.0 - 33.0 pg) 29.6 MCHC (33.0 - 37.0 g/dL) 31.8 L RDW (11.5 - 14.5 %) 12.5 Plt Count (150 - 400 x10 3/uL) 301 MPV (7.0 - 9.0 fL) 10.1 H Neut % (Auto) (56.0 - 77.0 %) 66.1 Lymph % (Auto) (14.0 - 32.0 %) 23.5 [place] % (Auto) (4.8 - 9.0 %) 7.4 Eos % (Auto) (0.3 - 3.7 %) 2.0 Baso % (Auto) (0.0 - 2.0 %) 0.6 Neut # (Auto) (2.0 - 7.6 x10 3/uL) 5.66 Lymph # (Auto) (1.0 - 3.8 x10 3/uL) 2.01 [place] # (Auto) (0.1 - 0.8 x10 3/uL) 0.63 Eos # (Auto) (0.0 - 0.2 x10 3/uL) 0.17 Baso # (Auto) (0.0 - 0.2 x10 3/uL) 0.05 Abs Immat Gran (auto) (0.00 - 0.03 x10 3/uL) 0.03 Immature Gran % (0.0 - 2.0 %) 0.4 Nucleated RBC % (0 - 0 %) 0.0 Nucleated RBCs # (Man) (0.0 - 0.1 x10 3/uL) 0.00 Microbiology: Date/Time Procedure - Status Source Growth 04/21 1535 Blood Culture - RECD BLOOD 04/21 153 Blood Culture Gram Stain - RECD BLOOD 04/21 153 Blood Culture - RECD BLOOD 04/21 153 Blood Culture Gram Stain - RECD BLOOD Recent Impressions: RADIOLOGY - XR FOOT 3 + V LT 04/21 1423 Report Impression - Status: SIGNED Entered: 04/21/2023 1438 IMPRESSION: Interval progression of osteomyelitis involving the fifth metatarsal head and fifth proximal phalanx base about the MTP joint since the prior study from 04/16/2023. Impression By: [email or web address] - Brett Elizabeth M.D. Laboratory Tests: 04/21 04/21 04/21 04/21 1128 0931 0534 0132 Chemistry Sodium (134 - 147 mEq/L) 137 Potassium (3.4 - 5.0 mEq/L) 4.0 Chloride (100 - 108 mEq/L) 105 Carbon Dioxide (21 - 33 mEq/l) 24 Anion Gap (0 - 20) 12 BUN (7 - 25 mg/dL) 18 Creatinine (0.6 - 1.3 mg/dL) 1.1 Glomerular Filtr Rate (90 - 95) 78.3 L Glucose (77 - 141 mg/dL) 181 H POC Glucose (70 - 110 MG/DL) 172 H Calcium (8.0 - 10.5 mg/dL) 9.3 Magnesium (1.6 - 2.6 mg/dL) 1.61 C-Reactive Protein (<10.0 mg/L) 25.0 H Hematology WBC (4.5 - 11.0 x10 3/uL) 7.0 RBC (4.00 - 5.60 x10 6/uL) 4.05 Hgb (12.5 - 16.9 g/dL) 12.0 L Hct (37.5 - 50.7 %) 36.5 L MCV (81.0 - 99.0 fL) 90.1 MCH (27.0 - 33.0 pg) 29.6 MCHC (33.0 - 37.0 g/dL) 32.9 L RDW (11.5 - 14.5 %) 12.0 Plt Count (150 - 400 x10 3/uL) 305 MPV (7.0 - 9.0 fL) 10.5 H Neut % (Auto) (56.0 - 77.0 %) 61.3 Lymph % (Auto) (14.0 - 32.0 %) 27.0 [place] % (Auto) (4.8 - 9.0 %) 8.9 Eos % (Auto) (0.3 - 3.7 %) 1.7 Baso % (Auto) (0.0 - 2.0 %) 0.7 Neut # (Auto) (2.0 - 7.6 x10 3/uL) 4.28 Lymph # (Auto) (1.0 - 3.8 x10 3/uL) 1.89 [place] # (Auto) (0.1 - 0.8 x10 3/uL) 0.62 Eos # (Auto) (0.0 - 0.2 x10 3/uL) 0.12 Baso # (Auto) (0.0 - 0.2 x10 3/uL) 0.05 Abs Immat Gran (auto) (0.00 - 0.03 x10 3/uL) 0.03 Immature Gran % (0.0 - 2.0 %) 0.4 Nucleated RBC % (0 - 0 %) 0.0 Nucleated RBCs # (Man) (0.0 - 0.1 x10 3/uL) 0.00 ESR Westergren (0 - 15 mm/hr) 87 H Urines Urine Color (YEL/STRAW) YELLOW Urine Appearance (CLEAR) CLEAR Urine pH (5.0 - 7.0) 5.0 Ur Specific [place] (1.005 - 1.030) 1.011 Urine Protein (NEGATIVE) NEGATIVE Urine Glucose (UA) (NEGATIVE) 3+ H Urine Ketones (NEGATIVE) NEGATIVE Urine Blood (NEGATIVE) NEGATIVE Urine Nitrite (NEGATIVE) NEGATIVE Urine Bilirubin (NEGATIVE) NEGATIVE Urine Urobilinogen (0.2 - 1.0 mg/dL) 0.2 Ur Leukocyte Esterase (NEGATIVE) NEGATIVE Urine RBC (0 - 3 RBC/HPF) 0-3 Urine WBC (0 - 3 WBC/HPF) 0-3 Ur Squamous Epith Cells (NONE SEEN /HPF) 0-5 Ur Transition Epith Cell (NONE SEEN /HPF) TRACE Urine Bacteria (NONE SEEN /HPF) TRACE Urine Mucus (NONE SEEN /LPF) TRACE 04/20 Chemistry POC Glucose (70 - 110 MG/DL) 325 H Coagulation INR (0.8 - 1.2) 1.3 H PTT (Jalen) (25.0 - 39.5 Seconds) 39.3 PT Patient/Control Mix (9.3 - 12.9 SECONDS) 14.5 H Microbiology: Date/Time Procedure - Status Source Growth 04/21 153 Blood Culture - RECD BLOOD 04/21 153 Blood Culture Gram Stain - RECD BLOOD 04/21 153 Blood Culture - RECD BLOOD 04/21 153 Blood Culture Gram Stain - RECD BLOOD Recent Impressions: RADIOLOGY - XR FOOT 3 + V LT 04/21 1423 Report Impression - Status: SIGNED Entered: 04/21/20231437 IMPRESSION: Interval progression of osteomyelitis involving the fifth metatarsal head and fifth proximal phalanx base about the MTP joint since the prior study from 04/16/2023. Impression By: [email or web address] - Brett Elizabeth M.D. 1. 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 2. Coronary artery disease. 6 3. S/P CABG 4. Ex-smoker 5.Left foot wound 6.Hypertension. 7. Hyperlipidemia Blood sugar 170-221 mg/dL. HbA1c 8.3%. Lipids elevated.This Adjust insulin dose. Diabetes dietary education. at 1457 RPT #:[id number] END OF REPORT [facility] 2023-05-01 08:56:00 [facility] Critical Care Progress Note REPORT#:[id number] REPORT STATUS: Signed REPORT INITIALIZATION DATE:05/01/23 TIME: 855 PATIENT: JONG RIVAS UNIT #: [id number] ROOM/BED: [place] [id number] : 66 AGE: 58 SEX: M ATTEND: Domenic Rainey MD ADM AUTHOR: Carole Mccauley MD REPT SERVICE DT/TIME: 05/01/23 0856 * ALL edits or amendments must be made on the electronic/computer document * Subjective Chief complaint: CABG x 5 (RICHARDS-LAD, Seq-diag, SVG-OM1, SVG-OM2, SVG-PDA) EVH (LGSV) YULIA HPI: 58-year-old male, poor historian, PMHx diabetes on metformin, neuropathy, HTN, former smoker, chronic nonhealing left foot ulcer at the fifth metatarsal located posterior lateral found to have multivessel CAD underwent CABG x5 today. Patient received 1200 cc crystalloid, 450 Cell Saver. EBL was 300. Urine output was 400. On arrival to ICU patient was off pressors. He was on insulin 3 units drip. Patient was intubated on ventilatory support. [address] Comments: Interval history- No Overnight events Objective General VS/I O Last Documented: Result Date Time Pulse Ox 95 05/01 0600 B/P 128/75 05/01 0600 B/P Mean 96 05/01 0600 Pulse 94 05/01 0600 Resp 24 05/01 06 FiO2 21 05/01 0413 O2 Delivery Room air 05/01 413 Temp 36.8 05/01 0000 O2 Flow Rate 2 04/29 2000 24 hour I O ending at 0700: 05/01 0700 04/30 1900 Intake Total 774.20 680 Output Total 450 1000 Balance 324.20 -320 Intake, IV 534.20 Intake, Oral 240 680 Number Voids 2 Output, Urine 450 1000 PATIENT WEIGHT: Weight (lb): 241 Weight (oz): 2.97 Weight (kg): 109.400 Medications: Active Meds + DC'd Last 24 Hrs Furosemide (LASIX 40 mg/4 mL INJECTION) 40 MG ONCE ONE IV (DC) Potassium Chloride (POTASSIUM CHLORIDE 20MEQ TAB.ER) 20 MEQ ONCE ONE PO (CAN) Calcium Gluconate (Calcium Gluconate 1 GM/NS 50 mL (B2)) 50 ML ONCE ONE IV (DC) Insulin Glargine (Semglee) 18 UNIT BEDTIME SUBQ Ipratropium [place] (ATROVENT) 500 MCG RTQ2H PRN PRN INH Cyanocobalamin (Vitamin B-12 500 mcg tab) 500 MCG DAILY PO Ferrous Sulfate (FERROUS SULFATE) 325 MG DAILY PO Mupirocin (BACTROBAN 2% 22 GM OINTMENT) 1 APPLIC BID NASAL Tramadol HCl (ULTRAM) 25 MG Q8H PO (DC) Doxycycline Monohydrate (DOXYCYCLINE MONOHYDRATE) 100 MG Q12HR PO Insulin Glargine (Semglee) 15 UNIT BEDTIME SUBQ (DC) Insulin Human Lispro (HUMALOG) 0 AC HS SUBQ Insulin Human Lispro (HUMALOG) 5 UNIT AC SUBQ Bisacodyl (DULCOLAX) 10 MG ONCE PRN RECTAL Magnesium Hydroxide (MILK OF MAGNESIA) 30 ML ONCE PRN PO Atorvastatin Calcium (LIPITOR) 40 MG 2100 PO Dextrose/Water (DEXTROSE 10% IN WATER) 250 ML ASDIR PRN IV (CKD) Insulin Human Regular (HumuLIN R) 100 UNIT ASDIR IV (CKD) Sodium Chloride (SODIUM CHLORIDE 0.9%) 99 ML Benzonatate (TESSALON PERLE) 200 MG Q8H PRN PRN PO Piperacillin Sod/Tazobactam Sod (ZOSYN 3.375GM) 3.375 GM Q8H IV Sodium Chloride (SODIUM CHLORIDE 0.9% 100 ML) 100 ML Clopidogrel Bisulfate (Plavix) 75 MG DAILY PO Polyethylene Glycol (MIRALAX) 17 GM DAILY PO Docusate Sodium (COLACE) 100 MG BID PO Metoprolol Tartrate (LOPRESSOR) 12.5 MG Q12HR PO Sennosides (Senna Lax 8.6 MG TABLET) 17.2 MG BEDTIME PO Aspirin (ASPIRIN) 81 MG DAILY PO Ipratropium [place] (ATROVENT) 500 MCG RTQ4H INH (DC) Pantoprazole (PROTONIX) 40 MG DAILY@0600 PO Amiodarone HCl (CORDARONE) 200 MG TID PO Acetaminophen (TYLENOL) 650 MG Q4H PRN PRN PO Acetaminophen (TYLENOL) 650 MG Q4H PRN PRN RECTAL Calcium Chloride (CALCIUM CHLORIDE) 1 GM ASDIR PRN IV Dextrose/Water (DEXTROSE 10% IN WATER) 125 ML ASDIR PRN IV (CKD) Dextrose/Water (DEXTROSE 10% IN WATER) 250 ML ASDIR PRN IV (CKD) Epinephrine (ADRENALIN CHLORIDE) 4 MG ASDIR IV Dextrose/Water (DEXTROSE 5% WATER) 246 ML Glucagon (GLUCAGON) 1 MG ASDIR PRN IM Magnesium Sulfate (MAGNESIUM SULFATE 4GM/SWFI 100ML) 100 ML ASDIR PRN IV Magnesium Sulfate (MAGNESIUM SULFATE 2GM/SWFI 50ML) 50 ML ASDIR PRN IV Magnesium Sulfate/Dextrose (MAGNESIUM SULFATE 1GM/D5W 100ML) 100 ML ASDIR PRN IV Nitroglycerin/Dextrose (NITROGLYCERIN 50,000MCG/D5W 250ML) 250 ML ASDIR IV Norepinephrine Bitartrate (NOREPINEPHRINE 8 MG/NS 250 ML) 250 ML TITRATE IV Ondansetron HCl (ZOFRAN) 4 MG Q6H PRN PRN IV Oxycodone HCl (ROXICODONE) 5 MG Q4H PRN PRN PO Oxycodone HCl (ROXICODONE) 10 MG Q4H PRN PRN PO Potassium Chloride (KCL 20MEQ/SWFI 100ML) 100 ML ASDIR PRN IV Sodium Bicarbonate (SODIUM BICARBONATE) 50 MEQ ASDIR PRN IV Sodium Chloride (SODIUM CHLORIDE 0.9%) 1,000 ML .Q20H IV Sodium Chloride (SODIUM CHLORIDE 0.9%) 250 ML Q24H IV Silver Sulfadiazine (SILVADENE 1% 50 GM CREAM) 1 APPLIC Q12HR TOPICAL Gabapentin (NEURONTIN) 200 MG TID PO Physical Exam Head/eyes: PERRLA Cardiovascular: normal capillary refill, normal heart sounds, regular rate and rhythm, normal S1/S2 Respiratory: aerating well, clear to auscultation, symmetric expansion Abdomen: soft, non-tender, normal bowel sounds Extremities: moves all 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, oriented X 3, CNII-XII intact, normal speech Results Findings/data: Laboratory Tests 05/01 04/30 04/30 04/30 0203 1902 1857 1632 Chemistry Sodium (134 - 147 mEq/L) 134 134 Potassium (3.4 - 5.0 mEq/L) 4.1 3.6 Chloride (100 - 108 mEq/L) 105 109 H Carbon Dioxide (21 - 33 mEq/l) 24 21 Anion Gap (0 - 20) 9 8 BUN (7 - 25 mg/dL) 18 20 Creatinine (0.6 - 1.3 mg/dL) 0.9 1.0 Glomerular Filtr Rate (90 - 95) 99.6 H 87.8 L Glucose (77 - 141 mg/dL) 182 H 157 H POC Glucose (70 - 110 MG/DL) 157 H 188 H Calcium (8.0 - 10.5 mg/dL) 8.8 9.0 Ionized Calcium Ryley (1.09 - 1.30 MMOL/L) 1.09 Magnesium (1.6 - 2.6 mg/dL) 2.03 1.80 04/30 1340 Chemistry POC Glucose (70 - 110 MG/DL) 217 H Laboratory Tests 05/013 Hematology WBC (4.5 - 11.0 x10 3/uL) 9.4 RBC (4.00 - 5.60 x10 6/uL) 3.18 L Hgb (12.5 - 16.9 g/dL) 9.4 L Hct (37.5 - 50.7 %) 29.1 L MCV (81.0 - 99.0 fL) 91.5 MCH (27.0 - 33.0 pg) 29.6 MCHC (33.0 - 37.0 g/dL) 32.3 L RDW (11.5 - 14.5 %) 13.1 Plt Count (150 - 400 x10 3/uL) 239 MPV (7.0 - 9.0 fL) 10.7 H Neut % (Auto) (56.0 - 77.0 %) 73.4 Lymph % (Auto) (14.0 - 32.0 %) 14.7 [place] % (Auto) (4.8 - 9.0 %) 8.3 Eos % (Auto) (0.3 - 3.7 %) 2.5 Baso % (Auto) (0.0 - 2.0 %) 0.5 Neut # (Auto) (2.0 - 7.6 x10 3/uL) 6.86 Lymph # (Auto) (1.0 - 3.8 x10 3/uL) 1.38 [place] # (Auto) (0.1 - 0.8 x10 3/uL) 0.78 Eos # (Auto) (0.0 - 0.2 x10 3/uL) 0.23 H Baso # (Auto) (0.0 - 0.2 x10 3/uL) 0.05 Abs Immat Gran (auto) (0.00 - 0.03 x10 3/uL) 0.06 H Immature Gran % (0.0 - 2.0 %) 0.6 Nucleated RBC % (0 - 0 %) 0.0 Nucleated RBCs # (Man) (0.0 - 0.1 x10 3/uL) 0.00 Laboratory Tests 05/01/23 0203: [Embedded Image Not Available] 04/30/23 1857: [Embedded Image Not Available] Radiology data Recent Impressions: RADIOLOGY - XR CHEST 1 V 05/01 0752 Report Impression - Status: SIGNED Entered: 05/01/2023 0835 IMPRESSION: 1. Expected post-CABG changes with mild central vascular congestion. Impression By: Christine Do M.D. Diagnosis, Assessment Plan Free text A P: Multivessel CAD status post CABG x5 (RICHARDS-LAD, Seq-diag, SVG-OM1, SVG-OM2, SVG- PDA) Postoperative hypoxemic respiratory insufficiency Postoperative pain Leukocytosis Diabetes hyperglycemia Nonhealing left leg ulcer Patient underwent CABG x5 today, on arrival to ICU he was on ventilatory support with assist control ventilation. We will wean down to extubate. We will continue insulin drip to keep sugar below 200. Keep MAP above 65. Monitor chest tube output. Pain management. Monitor urine output monitor kidney function replace electrolyte as needed. Monitor H H. GI and DVT prophylaxis. Continue antibiotic per ID recommendation. 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 Case was discussed at bedside with the nursing staff and respiratory therapist. 04/28 Patient was seen this morning, he is on room air, will keep saturation of 92%. Continue incentive spirometry, pulmonary toileting, bronchodilator as needed. His blood pressure is soft, will keep MAP above 65, off pressors. Monitor urine output, replace electrolyte as needed. May consider diuresing if needed. Monitor chest tube output, will assess later in the day for possible removal. Continue insulin to keep sugar below 200. Continue antibiotic per ID recommendation. Pain management. GI and DVT prophylaxis. Out of bed to chair. PT and OT. Continue metoprolol, amiodarone, aspirin, Plavix and statin. Case was discussed at bedside with the nursing staff, respiratory therapist, pharmacist, social work faculty member and cardiothoracic surgery team. 05/01 Pain is better controlled today. Hemodynamically stable. Continue beta-james and amiodarone. Aspirin Plavix. Patient is currently on Zosyn and doxycycline. Will need antibiotics till . Continue. We will give 1 dose of Lasix. ABG and chest x-ray reviewed. Endocrine following for the sugars, long-acting and sliding scale Creatinine stable. Replete electrolytes. Hemoglobin stable. White count downtrending no fevers. SCDs for DVT prophylaxis Total critical care team: 32 minutes Consultants: cardiology, cardiovascular surgery, pulmonary at 0858 RPT #:[id number] END OF REPORT [facility] 2023-05-01 08:18:00 [facility] ([facility]) Cardiothoracic Surgery Prog REPORT#:[id number] REPORT STATUS: Signed REPORT INITIALIZATION DATE:05/01/23 TIME: 817 PATIENT: JONG RIVAS UNIT #: [id number] ROOM/BED: [place] [address] : 66 AGE: 58 SEX: M ATTEND: Domenic Rainey MD ADM AUTHOR: Viky Mclaughlin Physic REPT SERVICE DT/TIME: 05/01/23817 * ALL edits or amendments must be made on the electronic/computer document * General Post-op: day 4 Status post: 04/27/23 CABG x 5 (RICHARDS-LAD, Seq-diag, SVG-OM1, SVG-OM2, SVG-PDA) EVH (LGSV) ALAA Subjective Chief complaint: Postop CABG Currently no complaints, resting comfortable Review of Systems Constitutional: Reports: fatigue. Skin: Denies: bruising, contusion, diaphoresis, ecchymosis. Allergy/Immun: Denies: allergic reaction, itching, rhinorrhea, sneezing. Eyes: Denies: redness, discharge, visual loss/blurred. ENT: Denies: throat pain, throat swelling, tongue pain, tongue swelling, toothache. Respiratory: Reports: MENDES (dyspnea on exertion). Denies: SOB, wheezing. Cardiovascular: Denies: chest pain, edema, orthopnea, palpitations. GI: Denies: abdominal pain, nausea, vomiting. : Denies: dysuria, flank pain. Musculoskeletal: Denies: extremity pain, extremity swelling. Psych: Denies: agitation, anxiety, auditory hallucination, visual hallucination. All systems rev neg: except as marked Objective General VS/I O Last Documented: Result Date Time Pulse Ox 95 05/01 0600 B/P 128/75 05/01 0600 B/P Mean 96 05/01 0600 Pulse 94 05/01 0600 Resp 24 11/12 0600 FiO2 21 05/01 0413 O2 Delivery Room air 05/01 413 Temp 98.3 05/01 0000 O2 Flow Rate 2 04/29 2000 24 hour I O ending at 0700: 05/01 0700 04/30 1900 Intake Total 774.20 680 Output Total 450 1000 Balance 324.20 -320 Intake, IV 534.20 Intake, Oral 240 680 Number Voids 2 Output, Urine 450 1000 PATIENT WEIGHT: Weight (lb): 241 Weight (oz): 2.97 Weight (kg): 109.400 Physical Exam General appearance: alert, awake, oriented Wound/incision: Location: Left foot toe amputation HEENT: anicteric, mucosal membranes moist, pupils reactive to light Neck: full range of motion, non-tender Cardiovascular: normal heart sounds, regular rate rhythm Respiratory: aerating well, clear to auscultation, symmetric expansion, no distress Abdomen: soft, non-tender Genitourinary: no bladder distention, no flank pain Extremities: dry, moves all, normal capillary refill, normal temperature Musculoskeletal: full range of motion, painless range of motion 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 Patient transferred from [facility], referred to us from Dr. Forde for acute coronary syndrome, unstable angina, ischemic heart disease status post coronary angiogram, with findings of multivessel CAD, EF 50%. Upon further chart review patient found to have chronic cavitary lung lesion on CT chest pending QuantiFERON, left lower extremity diabetic foot ulcer concerning for osteomyelitis MRI done at [place] and will upload imaging, foot wound culture with pseudomonas, UTI with urine culture Pseudomonas treated with cefepime. Patient reports dyspnea on exertion and mild chest pain x1 year. 04/18/23: Coronary angiogram done at [facility] Left main patent LAD with high-grade and tortuous calcified lesion just after the first diagonal estimated 95% stenosis first diagonal branch with severe calcified disease 99% Ramus 90 to 95% stenosis, left circumflex artery 99% proximal stenosis OM branches severe disease as well. RCA 90%. LVEDP 11 mmHg and angiography demonstrated preserved LV systolic function, EF 50%. Inferior wall demonstrated mild hypokinesis. 1-2+ MR on LV angio. RICHARDS patent Carotid angiogram, patent carotids Assessment: CAD, severe multivessel Left foot nonhealing foot ulcer Chronic cavitary lesion noted on CT chest UTI Pseudomonas 2023 Patient seen and evaluated by Dr. Rainey CABG eval underway -Consult pulmonology, cardiology, wound care -Lovenox DVT prophylaxis Continue supportive care Further recommendations to follow 04/21/2023 CABG eval underway Patient sitting up in bed, room air, no distress. No complaints Patient with multiple complex medical issues ongoing. Timing of major CV surgery pending medical optimization. We will discuss patient at high risk CV Case conference on Tuesday. -Continue supportive care Seen and examined by Dr. Rainey 04/23/2023 CABG eval underway Patient sitting up in bed, room air, no distress. No complaints Patient with multiple complex medical issues ongoing. Timing of major CV surgery pending medical optimization. Left foot MRI complete with fifth MTP effusion/possible septic arthritis with osteomyelitis changes, no drainable soft tissue abscess. -Amputation left fifth toe and metatarsal scheduled by podiatry for tomorrow -Blood cultures 04/21/2023 no growth after 24-hour -UA negative -Lovenox DVT prophylaxis Continue supportive care Further recommendations to follow 04/24/2023 CABG eval underway Patient sitting up in bed, room air, no distress. No complaints -Amputation left fifth toe and metatarsal scheduled by podiatry for today -Blood cultures 04/21/2023 no growth after 48-hour -follow tissue culture Continue supportive care Further recommendations to follow 04/25/2023 CABG eval underway, plan for OR likely next week to allow patient some time to recover from amputation. Patient sitting up in bed, room air, no distress. No complaints S/P Amputation left fifth toe and metatarsal -Blood cultures 04/21/2023 no growth after 72-hour Encourage OOBTC, IS, PT/OT Continue supportive care Further recommendations to follow 04/26/2023 CABG eval underway, plan for OR likely next week to allow patient some time to recover from amputation. Patient sitting up in bed, room air, no distress. No complaints S/P Amputation left fifth toe and metatarsal -Blood cultures 04/21/2023 no growth after 72-hour Encourage OOBTC, IS, PT/OT Continue supportive care Further recommendations to follow 04/27/23 Patient resting comfortable. Denies complaints AAO x 3 respiratory spi: on room air. Remains sinus rhythm ID following - CABG after 04/27/23 completed ABX Carotid Dopplers showed less than 50% stenosis. Vein mapping complete CT of the chest completed Consider surgery this afternoon. Will stephanie NPO. Patient seen and Examined with Dr. Rainey. STS score calculated. 0.8% Coronary bypass graft surgery was discussed with the patient. The risk of the operation including the STS score, risk of bleeding, infection, , heart attack, stroke, prolonged ICU stay, renal failure, dialysis, need for long-term rehabilitation etc. was discussed with the patient. The patient's questions were answered and the patient agreed to proceed with surgery. 04/27/23 1. Coronary artery bypass graft surgery x5 (RICHARDS to LAD, sequential to diagonal, saphenous vein to first marginal, saphenous vein to second marginal, saphenous vein to PDA). 2. Amputation of left atrial appendage. 3. Posterior pericardiotomy. 4. Endoscopic vein harvest (left greater saphenous vein). 04/28/23 On room air. POD 1 AAOx3 Patient reports pain controlled. Respiratory: on room air. Encourage IS, Deep Breathing, CXR reviewed, CT outputs- Re-access after walking. Cardiac: Remains sinus rhythm, pacing wires on standby GI: Tolerating diet, passing gas. Continue Bowel regimen : Walton in place. UO:650 Continue PT/OT Disposition: Patient lives alone. We will consult rehab. Patient DVT prophylaxis, SCDs in place Labs reveiwed- replace electrolytes as needed Patient seen and examined by Dr. Rainey. Plan of care discussed with multidisciplinary team Continue supportive care. 04/29/23 On room air. POD 2 AAOx3 Patient reports pain controlled. Respiratory: on room air. Encourage IS, Deep Breathing, CXR reviewed, Cardiac: Remains sinus rhythm, pacing wires on standby GI: Tolerating diet, passing gas. Continue Bowel regimen : Walton in place. Will DC Walton later today UO:580, 40 Lasix ordered today. Continue PT/OT out of bed walking with PT today. Disposition: Patient lives alone. We will consult rehab. Patient DVT prophylaxis, SCDs in place Labs reveiwed- replace electrolytes as needed Plan of care discussed with multidisciplinary team Continue supportive care. 04/30/23 POD 3 AAOx3 Patient reports pain controlled. Respiratory: on room air. ALL CT out. Encourage IS, Deep Breathing, CXR reviewed, Cardiac: Remains sinus rhythm, pacing wires on standby GI: Tolerating diet,+ BM. Continue Bowel regimen UO: 1740 Continue PT/OT out of bed walking with PT today. Disposition: Patient lives alone. Rehab consulted however Patient walked 400 feet yesterday DVT prophylaxis, SCDs in place Labs reveiwed- replace electrolytes as needed Plan of care discussed with multidisciplinary team Continue supportive care. ABX as per ID recommendations. Making good progress., Patient was seen and examined with Dr. Prince 05/01/23 POD 4 AAOx3 Patient reports pain controlled. Respiratory: on room air. ALL CT out., Encourage IS, Deep Breathing, CXR reviewed, Cardiac: Remains sinus rhythm, pacing wires on standby GI: Tolerating diet,+ BM yesterday. Continue Bowel regimen UO: 1450 Continue PT/OT out of bed walking with PT today. Disposition: Patient lives alone. Rehab consulted however Patient walked 400 feet yesterday DVT prophylaxis, SCDs in place Labs reveiwed- replace electrolytes as needed Plan of care discussed with multidisciplinary team ABX as per ID recommendations. Give Lasix today, Continuie Consultants: cardiology, cardiovascular surgery, pulmonary at 0826 at 0933 RPT #:[id number] END OF REPORT [facility] 2023-04-30 18:21:00 [facility] ([facility]) Critical Care Progress Note REPORT#:[id number] REPORT STATUS: Signed REPORT INITIALIZATION DATE:04/30/23 TIME: 1820 PATIENT: JONG RIVAS UNIT #: [id number] ROOM/BED: [place] [address] : 67 AGE: 58 SEX: M ATTEND: Domenic Rainey MD ADM AUTHOR: Carole Mccauley MD REPT SERVICE DT/TIME: 04/30/231820 * ALL edits or amendments must be made on the electronic/computer document * Subjective Chief complaint: CABG x 5 (RICHARDS-LAD, Seq-diag, SVG-OM1, SVG-OM2, SVG-PDA) EVH (LGSV) YULIA HPI: 58-year-old male, poor historian, PMHx diabetes on metformin, neuropathy, HTN, former smoker, chronic nonhealing left foot ulcer at the fifth metatarsal located posterior lateral found to have multivessel CAD underwent CABG x5 today. Patient received 1200 cc crystalloid, 450 Cell Saver. EBL was 300. Urine output was 400. On arrival to ICU patient was off pressors. He was on insulin 3 units drip. Patient was intubated on ventilatory support. [address] Comments: Interval history- Patient also complaining of some pain. Hemodynamically stable. Objective General VS/I O Last Documented: Result Date Time Pulse Ox 93 04/30 1800 B/P 123/77 04/30 1800 B/P Mean 89 04/30 1800 Pulse 87 04/30 1800 Resp 22 04/30 1800 FiO2 21 04/30 1236 O2 Delivery Room air 04/30 1236 Temp 36.8 04/30 0800 O2 Flow Rate 2 04/29 2000 24 hour I O ending at 0700: 04/30 0700 04/29 1900 Intake Total 980.10 700 Output Total 1010 1390 Balance -29.90 -690 Intake, IV 500.10 Intake, Oral 480 700 Intake, Oral 0 Supplement Number 1 Bowel Movements Output, Urine 1010 1390 Patient 109.4 kg Weight Weight Standing scale Measurement Method PATIENT WEIGHT: Weight (lb): 241 Weight (oz): 2.97 Weight (kg): 109.400 Medications: Active Meds + DC'd Last 24 Hrs Insulin Glargine (Semglee) 18 UNIT BEDTIME SUBQ Ipratropium [place] (ATROVENT) 500 MCG RTQ2H PRN PRN INH Cyanocobalamin (Vitamin B-12 500 mcg tab) 500 MCG DAILY PO Ferrous Sulfate (FERROUS SULFATE) 325 MG DAILY PO Mupirocin (BACTROBAN 2% 22 GM OINTMENT) 1 APPLIC BID NASAL Furosemide (LASIX 40 mg/4 mL INJECTION) 40 MG ONCE ONE IV (DC) Tramadol HCl (ULTRAM) 25 MG Q8H PO Calcium Gluconate (Calcium Gluconate 1 GM/NS 50 mL (B2)) 50 ML ONCE ONE IV (DC) Hydralazine HCl (APRESOLINE) 5 MG ONCE ONE IV (DC) Doxycycline Monohydrate (DOXYCYCLINE MONOHYDRATE) 100 MG Q12HR PO Insulin Glargine (Semglee) 15 UNIT BEDTIME SUBQ (DC) Insulin Human Lispro (HUMALOG) 0 AC HS SUBQ Insulin Human Lispro (HUMALOG) 5 UNIT AC SUBQ Potassium Phosphate (POTASSIUM PHOSPHATE) 20 MM ONCE ONE IV (DC) Sodium Chloride (SODIUM CHLORIDE 0.9%) 250 ML Bisacodyl (DULCOLAX) 10 MG ONCE PRN RECTAL Magnesium Hydroxide (MILK OF MAGNESIA) 30 ML ONCE PRN PO Sterile Water (WATER FOR INJECTION) 2.2 ML ASDIR PRN IV (DC) Atorvastatin Calcium (LIPITOR) 40 MG 2100 PO Dextrose/Water (DEXTROSE 10% IN WATER) 250 ML ASDIR PRN IV (CKD) Insulin Human Regular (HumuLIN R) 100 UNIT ASDIR IV (CKD) Sodium Chloride (SODIUM CHLORIDE 0.9%) 99 ML Benzonatate (TESSALON PERLE) 200 MG Q8H PRN PRN PO Piperacillin Sod/Tazobactam Sod (ZOSYN 3.375GM) 3.375 GM Q8H IV Sodium Chloride (SODIUM CHLORIDE 0.9% 100 ML) 100 ML Clopidogrel Bisulfate (Plavix) 75 MG DAILY PO Polyethylene Glycol (MIRALAX) 17 GM DAILY PO Docusate Sodium (COLACE) 100 MG BID PO Metoprolol Tartrate (LOPRESSOR) 12.5 MG Q12HR PO Sennosides (Senna Lax 8.6 MG TABLET) 17.2 MG BEDTIME PO Aspirin (ASPIRIN) 81 MG DAILY PO Ipratropium [place] (ATROVENT) 500 MCG RTQ4H INH (DC) Pantoprazole (PROTONIX) 40 MG DAILY@0600 PO Amiodarone HCl (CORDARONE) 200 MG TID PO Acetaminophen (TYLENOL) 650 MG Q4H PRN PRN PO Acetaminophen (TYLENOL) 650 MG Q4H PRN PRN RECTAL Calcium Chloride (CALCIUM CHLORIDE) 1 GM ASDIR PRN IV Dextrose/Water (DEXTROSE 10% IN WATER) 125 ML ASDIR PRN IV (CKD) Dextrose/Water (DEXTROSE 10% IN WATER) 250 ML ASDIR PRN IV (CKD) Epinephrine (ADRENALIN CHLORIDE) 4 MG ASDIR IV Dextrose/Water (DEXTROSE 5% WATER) 246 ML Glucagon (GLUCAGON) 1 MG ASDIR PRN IM Magnesium Sulfate (MAGNESIUM SULFATE 4GM/SWFI 100ML) 100 ML ASDIR PRN IV Magnesium Sulfate (MAGNESIUM SULFATE 2GM/SWFI 50ML) 50 ML ASDIR PRN IV Magnesium Sulfate/Dextrose (MAGNESIUM SULFATE 1GM/D5W 100ML) 100 ML ASDIR PRN IV Nitroglycerin/Dextrose (NITROGLYCERIN 50,000MCG/D5W 250ML) 250 ML ASDIR IV Norepinephrine Bitartrate (NOREPINEPHRINE 8 MG/NS 250 ML) 250 ML TITRATE IV Ondansetron HCl (ZOFRAN) 4 MG Q6H PRN PRN IV Oxycodone HCl (ROXICODONE) 5 MG Q4H PRN PRN PO Oxycodone HCl (ROXICODONE) 10 MG Q4H PRN PRN PO Potassium Chloride (KCL 20MEQ/SWFI 100ML) 100 ML ASDIR PRN IV Sodium Bicarbonate (SODIUM BICARBONATE) 50 MEQ ASDIR PRN IV Sodium Chloride (SODIUM CHLORIDE 0.9%) 1,000 ML .Q20H IV Sodium Chloride (SODIUM CHLORIDE 0.9%) 250 ML Q24H IV Silver Sulfadiazine (SILVADENE 1% 50 GM CREAM) 1 APPLIC Q12HR TOPICAL Gabapentin (NEURONTIN) 200 MG TID PO Physical Exam Head/eyes: PERRLA Cardiovascular: normal capillary refill, normal heart sounds, regular rate and rhythm, normal S1/S2 Respiratory: aerating well, clear to auscultation, symmetric expansion Abdomen: soft, non-tender, normal bowel sounds Extremities: moves all 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, oriented X 3, CNII-XII intact, normal speech Results Findings/data: Laboratory Tests 04/30 04/30 04/30 04/30 1632 1340 0809 0221 Chemistry POC Glucose (70 - 110 MG/DL) 188 H 217 H 181 H Ionized Calcium Ryley (1.09 - 1.30 MMOL/L) 1.05 L 04/301 1932 Chemistry Sodium (134 - 147 mEq/L) 132 L Potassium (3.4 - 5.0 mEq/L) 4.2 Chloride (100 - 108 mEq/L) 105 Carbon Dioxide (21 - 33 mEq/l) 20 L Anion Gap (0 - 20) 11 BUN (7 - 25 mg/dL) 16 Creatinine (0.6 - 1.3 mg/dL) 0.9 Glomerular Filtr Rate (90 - 95) 99.6 H Glucose (77 - 141 mg/dL) 205 H POC Glucose (70 - 110 MG/DL) 267 H Calcium (8.0 - 10.5 mg/dL) 8.8 Magnesium (1.6 - 2.6 mg/dL) 1.87 Total Bilirubin (0.0 - 1.0 mg/dL) 0.40 Direct Bilirubin (0.1 - 0.3 MG/DL) 0.20 Indirect Bilirubin (MG/DL) 0.20 AST (8 - 34 IUnit/L) 23 ALT (10 - 49 IUnit/L) 19 Total Alk Phosphatase (20 - 125 IUnit/L) 62 Total Protein (6.4 - 8.2 g/dL) 6.5 Albumin (3.4 - 5.0 g/dL) 3.20 L Laboratory Tests 04/30 0221 Hematology WBC (4.5 - 11.0 x10 3/uL) 13.1 H RBC (4.00 - 5.60 x10 6/uL) 3.41 L Hgb (12.5 - 16.9 g/dL) 10.0 L Hct (37.5 - 50.7 %) 31.1 L MCV (81.0 - 99.0 fL) 91.2 MCH (27.0 - 33.0 pg) 29.3 MCHC (33.0 - 37.0 g/dL) 32.2 L RDW (11.5 - 14.5 %) 13.1 Plt Count (150 - 400 x10 3/uL) 249 MPV (7.0 - 9.0 fL) 10.8 H Neut % (Auto) (56.0 - 77.0 %) 78.3 H Lymph % (Auto) (14.0 - 32.0 %) 11.3 L [place] % (Auto) (4.8 - 9.0 %) 8.3 Eos % (Auto) (0.3 - 3.7 %) 1.3 Baso % (Auto) (0.0 - 2.0 %) 0.2 Neut # (Auto) (2.0 - 7.6 x10 3/uL) 10.28 H Lymph # (Auto) (1.0 - 3.8 x10 3/uL) 1.49 [place] # (Auto) (0.1 - 0.8 x10 3/uL) 1.09 H Eos # (Auto) (0.0 - 0.2 x10 3/uL) 0.17 Baso # (Auto) (0.0 - 0.2 x10 3/uL) 0.03 Abs Immat Gran (auto) (0.00 - 0.03 x10 3/uL) 0.08 H Immature Gran % (0.0 - 2.0 %) 0.6 Nucleated RBC % (0 - 0 %) 0.0 Nucleated RBCs # (Man) (0.0 - 0.1 x10 3/uL) 0.00 Laboratory Tests 04/30/23 0221: [Embedded Image Not Available] Radiology data Recent Impressions: RADIOLOGY - XR CHEST 1 V 04/30 0746 Report Impression - Status: SIGNED Entered: 04/30/2023 0817 IMPRESSION: 1. Expected post-CABG changes with interval removal of the mediastinal drains. No pneumothorax. Impression By: Christine Do M.D. Diagnosis, Assessment Plan Free text A P: Multivessel CAD status post CABG x5 (RICHARDS-LAD, Seq-diag, SVG-OM1, SVG-OM2, SVG- PDA) Postoperative hypoxemic respiratory insufficiency Postoperative pain Leukocytosis Diabetes hyperglycemia Nonhealing left leg ulcer Patient underwent CABG x5 today, on arrival to ICU he was on ventilatory support with assist control ventilation. We will wean down to extubate. We will continue insulin drip to keep sugar below 200. Keep MAP above 65. Monitor chest tube output. Pain management. Monitor urine output monitor kidney function replace electrolyte as needed. Monitor H H. GI and DVT prophylaxis. Continue antibiotic per ID recommendation. 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 Case was discussed at bedside with the nursing staff and respiratory therapist. 04/28 Patient was seen this morning, he is on room air, will keep saturation of 92%. Continue incentive spirometry, pulmonary toileting, bronchodilator as needed. His blood pressure is soft, will keep MAP above 65, off pressors. Monitor urine output, replace electrolyte as needed. May consider diuresing if needed. Monitor chest tube output, will assess later in the day for possible removal. Continue insulin to keep sugar below 200. Continue antibiotic per ID recommendation. Pain management. GI and DVT prophylaxis. Out of bed to chair. PT and OT. Continue metoprolol, amiodarone, aspirin, Plavix and statin. Case was discussed at bedside with the nursing staff, respiratory therapist, pharmacist, social work faculty member and cardiothoracic surgery team. 04/30 Pain control. Will give dose of tramadol. Hemodynamically stable. Continue beta-james and amiodarone. Aspirin Plavix. Patient is currently on Zosyn and doxycycline. Will need antibiotics till . Continue. We will give 1 dose of Lasix. ABG and chest x-ray reviewed. Endocrine following for the sugars. Creatinine stable. Replete electrolytes. Hemoglobin stable. White count downtrending no fevers. SCDs for DVT prophylaxis Total critical care team: 32 minutes Consultants: cardiology, cardiovascular surgery, pulmonary at 1825 RPT #:[id number] END OF REPORT [facility] 2023-04-30 13:47:00 [facility] ([facility]) Endocrinology Progress Note REPORT#:[id number] REPORT STATUS: Signed REPORT INITIALIZATION DATE:04/30/23 TIME: 1346 PATIENT: JONG RIVAS UNIT #: [id number] ROOM/BED: [place] [id number] : 67 AGE: 58 SEX: M ATTEND: Domenic Rainey MD ADM AUTHOR: Vlad Lay MD REPT SERVICE DT/TIME: 04/30/23 1347 * ALL edits or amendments must be made on the electronic/computer document * Subjective Patient reports: no complaints Objective General VS: Last Documented: Result Date Time Pulse Ox 95 04/30 1236 FiO2 21 04/30 1236 O2 Delivery Room air 04/30 1236 B/P 172/86 04/30 1031 B/P Mean 120 04/30 1031 Pulse 106 04/30 1031 Resp 18 04/30 1000 Temp 36.8 04/30 0800 O2 Flow Rate 2 04/29 2000 PATIENT WEIGHT: Weight (lb): 241 Weight (oz): 2.97 Weight (kg): 109.400 Medications: Active Meds + DC'd Last 24 Hrs Ipratropium [place] (ATROVENT) 500 MCG RTQ2H PRN PRN INH Cyanocobalamin (Vitamin B-12 500 mcg tab) 500 MCG DAILY PO Ferrous Sulfate (FERROUS SULFATE) 325 MG DAILY PO Mupirocin (BACTROBAN 2% 22 GM OINTMENT) 1 APPLIC BID NASAL Furosemide (LASIX 40 mg/4 mL INJECTION) 40 MG ONCE ONE IV (DC) Tramadol HCl (ULTRAM) 25 MG Q8H PO Calcium Gluconate (Calcium Gluconate 1 GM/NS 50 mL (B2)) 50 ML ONCE ONE IV (DC) Hydralazine HCl (APRESOLINE) 5 MG ONCE ONE IV (DC) Doxycycline Monohydrate (DOXYCYCLINE MONOHYDRATE) 100 MG Q12HR PO Insulin Glargine (Semglee) 15 UNIT BEDTIME SUBQ Insulin Human Lispro (HUMALOG) 0 AC HS SUBQ Insulin Human Lispro (HUMALOG) 5 UNIT AC SUBQ Calcium Gluconate (Calcium Gluconate 1 GM/NS 50 mL (B2)) 50 ML ONCE ONE IV (DC) Furosemide (LASIX 40 mg/4 mL INJECTION) 40 MG ONCE ONE IV (DC) Potassium Phosphate (POTASSIUM PHOSPHATE) 20 MM ONCE ONE IV (DC) Sodium Chloride (SODIUM CHLORIDE 0.9%) 250 ML Bisacodyl (DULCOLAX) 10 MG ONCE PRN RECTAL Magnesium Hydroxide (MILK OF MAGNESIA) 30 ML ONCE PRN PO Sterile Water (WATER FOR INJECTION) 2.2 ML ASDIR PRN IV (DC) Atorvastatin Calcium (LIPITOR) 40 MG 2100 PO Dextrose/Water (DEXTROSE 10% IN WATER) 250 ML ASDIR PRN IV (CKD) Insulin Human Regular (HumuLIN R) 100 UNIT ASDIR IV (CKD) Sodium Chloride (SODIUM CHLORIDE 0.9%) 99 ML Benzonatate (TESSALON PERLE) 200 MG Q8H PRN PRN PO Sterile Water (WATER FOR INJECTION) 2.2 ML ASDIR PRN IV (DC) Piperacillin Sod/Tazobactam Sod (ZOSYN 3.375GM) 3.375 GM Q8H IV Sodium Chloride (SODIUM CHLORIDE 0.9% 100 ML) 100 ML Clopidogrel Bisulfate (Plavix) 75 MG DAILY PO Polyethylene Glycol (MIRALAX) 17 GM DAILY PO Docusate Sodium (COLACE) 100 MG BID PO Metoprolol Tartrate (LOPRESSOR) 12.5 MG Q12HR PO Sennosides (Senna Lax 8.6 MG TABLET) 17.2 MG BEDTIME PO Aspirin (ASPIRIN) 81 MG DAILY PO Ipratropium [place] (ATROVENT) 500 MCG RTQ4H INH Pantoprazole (PROTONIX) 40 MG DAILY@0600 PO Amiodarone HCl (CORDARONE) 200 MG TID PO Acetaminophen (TYLENOL) 650 MG Q4H PRN PRN PO Acetaminophen (TYLENOL) 650 MG Q4H PRN PRN RECTAL Calcium Chloride (CALCIUM CHLORIDE) 1 GM ASDIR PRN IV Dextrose/Water (DEXTROSE 10% IN WATER) 125 ML ASDIR PRN IV (CKD) Dextrose/Water (DEXTROSE 10% IN WATER) 250 ML ASDIR PRN IV (CKD) Epinephrine (ADRENALIN CHLORIDE) 4 MG ASDIR IV Dextrose/Water (DEXTROSE 5% WATER) 246 ML Glucagon (GLUCAGON) 1 MG ASDIR PRN IM Magnesium Sulfate (MAGNESIUM SULFATE 4GM/SWFI 100ML) 100 ML ASDIR PRN IV Magnesium Sulfate (MAGNESIUM SULFATE 2GM/SWFI 50ML) 50 ML ASDIR PRN IV Magnesium Sulfate/Dextrose (MAGNESIUM SULFATE 1GM/D5W 100ML) 100 ML ASDIR PRN IV Nitroglycerin/Dextrose (NITROGLYCERIN 50,000MCG/D5W 250ML) 250 ML ASDIR IV Norepinephrine Bitartrate (NOREPINEPHRINE 8 MG/NS 250 ML) 250 ML TITRATE IV Ondansetron HCl (ZOFRAN) 4 MG Q6H PRN PRN IV Oxycodone HCl (ROXICODONE) 5 MG Q4H PRN PRN PO Oxycodone HCl (ROXICODONE) 10 MG Q4H PRN PRN PO Potassium Chloride (KCL 20MEQ/SWFI 100ML) 100 ML ASDIR PRN IV Sodium Bicarbonate (SODIUM BICARBONATE) 50 MEQ ASDIR PRN IV Sodium Chloride (SODIUM CHLORIDE 0.9%) 1,000 ML .Q20H IV Sodium Chloride (SODIUM CHLORIDE 0.9%) 250 ML Q24H IV Silver Sulfadiazine (SILVADENE 1% 50 GM CREAM) 1 APPLIC Q12HR TOPICAL Gabapentin (NEURONTIN) 200 MG TID PO Physical Exam General appearance: alert, awake Diagnosis, Assessment Plan Hospital course to date: Laboratory Tests: 04/30 04/30 04/30 04/29 0809 220 220 1931 Chemistry Sodium (134 - 147 mEq/L) 132 L Potassium (3.4 - 5.0 mEq/L) 4.2 Chloride (100 - 108 mEq/L) 105 Carbon Dioxide (21 - 33 mEq/l) 20 L Anion Gap (0 - 20) 11 BUN (7 - 25 mg/dL) 16 Creatinine (0.6 - 1.3 mg/dL) 0.9 Glomerular Filtr Rate (90 - 95) 99.6 H Glucose (77 - 141 mg/dL) 205 H POC Glucose (70 - 110 MG/DL) 181 H 267 H Calcium (8.0 - 10.5 mg/dL) 8.8 Ionized Calcium [place] (1.09 - 1.30 MMOL/L) 1.05 L Magnesium (1.6 - 2.6 mg/dL) 1.87 Total Bilirubin (0.0 - 1.0 mg/dL) 0.40 Direct Bilirubin (0.1 - 0.3 MG/DL) 0.20 Indirect Bilirubin (MG/DL) 0.20 AST (8 - 34 IUnit/L) 23 ALT (10 - 49 IUnit/L) 19 Total Alk Phosphatase (20 - 125 IUnit/L) 62 Total Protein (6.4 - 8.2 g/dL) 6.5 Albumin (3.4 - 5.0 g/dL) 3.20 L Hematology WBC (4.5 - 11.0 x10 3/uL) 13.1 H RBC (4.00 - 5.60 x10 6/uL) 3.41 L Hgb (12.5 - 16.9 g/dL) 10.0 L Hct (37.5 - 50.7 %) 31.1 L MCV (81.0 - 99.0 fL) 91.2 MCH (27.0 - 33.0 pg) 29.3 MCHC (33.0 - 37.0 g/dL) 32.2 L RDW (11.5 - 14.5 %) 13.1 Plt Count (150 - 400 x10 3/uL) 249 MPV (7.0 - 9.0 fL) 10.8 H Neut % (Auto) (56.0 - 77.0 %) 78.3 H Lymph % (Auto) (14.0 - 32.0 %) 11.3 L [place] % (Auto) (4.8 - 9.0 %) 8.3 Eos % (Auto) (0.3 - 3.7 %) 1.3 Baso % (Auto) (0.0 - 2.0 %) 0.2 Neut # (Auto) (2.0 - 7.6 x10 3/uL) 10.28 H Lymph # (Auto) (1.0 - 3.8 x10 3/uL) 1.49 [place] # (Auto) (0.1 - 0.8 x10 3/uL) 1.09 H Eos # (Auto) (0.0 - 0.2 x10 3/uL) 0.17 Baso # (Auto) (0.0 - 0.2 x10 3/uL) 0.03 Abs Immat Gran (auto) (0.00 - 0.03 0.08 H x10 3/uL) Immature Gran % (0.0 - 2.0 %) 0.6 Nucleated RBC % (0 - 0 %) 0.0 Nucleated RBCs # (Man) (0.0 - 0.1 x10 3/uL) 0.00 04/29 04/29 1706 1413 Chemistry Sodium (134 - 147 mEq/L) 137 Potassium (3.4 - 5.0 mEq/L) 3.8 Chloride (100 - 108 mEq/L) 106 Carbon Dioxide (21 - 33 mEq/l) 21 Anion Gap (0 - 20) 14 BUN (7 - 25 mg/dL) 24 Creatinine (0.6 - 1.3 mg/dL) 1.0 Glomerular Filtr Rate (90 - 95) 87.8 L Glucose (77 - 141 mg/dL) 246 H POC Glucose (70 - 110 MG/DL) 216 H Calcium (8.0 - 10.5 mg/dL) 8.5 Phosphorus (2.5 - 4.9 MG/DL) 1.9 L Magnesium (1.6 - 2.6 mg/dL) 1.84 Recent Impressions: RADIOLOGY - XR CHEST 1 V 04/30 4246 Report Impression - Status: SIGNED Entered: 04/30/2023 0817 IMPRESSION: 1. Expected post-CABG changes with interval removal of the mediastinal drains. No pneumothorax. Impression By: Christine Do M.D. Laboratory Tests: 04/29 04/29 04/29 04/29 04/29 1706 1413 1207 1007 0802 Chemistry Sodium (134 - 147 mEq/L) 137 Potassium (3.4 - 5.0 mEq/L) 3.8 Chloride (100 - 108 mEq/L) 106 Carbon Dioxide (21 - 33 mEq/l) 21 Anion Gap (0 - 20) 14 BUN (7 - 25 mg/dL) 24 Creatinine (0.6 - 1.3 mg/dL) 1.0 Glomerular Filtr Rate (90 - 95) 87.8 L Glucose (77 - 141 mg/dL) 246 H POC Glucose (70 - 110 MG/DL) 216 H 171 H 186 H 184 H Calcium (8.0 - 10.5 mg/dL) 8.5 Phosphorus (2.5 - 4.9 MG/DL) 1.9 L Magnesium (1.6 - 2.6 mg/dL) 1.84 04/29 04/29 04/29 04/28 0624 0228 0026 2131 Chemistry Sodium (134 - 147 mEq/L) 135 Potassium (3.4 - 5.0 mEq/L) 4.2 Chloride (100 - 108 mEq/L) 108 Carbon Dioxide (21 - 33 mEq/l) 21 Anion Gap (0 - 20) 11 BUN (7 - 25 mg/dL) 24 Creatinine (0.6 - 1.3 mg/dL) 1.1 Glomerular Filtr Rate (90 - 95) 78.3 L Glucose (77 - 141 mg/dL) 241 H POC Glucose (70 - 110 MG/DL) 199 H 217 H 253 H Calcium (8.0 - 10.5 mg/dL) 8.9 Magnesium (1.6 - 2.6 mg/dL) 2.23 Total Bilirubin (0.0 - 1.0 mg/dL) 0.50 Direct Bilirubin (0.1 - 0.3 MG/DL) 0.30 Indirect Bilirubin (MG/DL) 0.20 AST (8 - 34 IUnit/L) 25 ALT (10 - 49 IUnit/L) 22 Total Alk Phosphatase (20 - 125 IUnit/L) 63 Total Protein (6.4 - 8.2 g/dL) 6.6 Albumin (3.4 - 5.0 g/dL) 3.50 Hematology WBC (4.5 - 11.0 x10 3/uL) 14.5 H RBC (4.00 - 5.60 x10 6/uL) 3.33 L Hgb (12.5 - 16.9 g/dL) 10.2 L Hct (37.5 - 50.7 %) 30.5 L MCV (81.0 - 99.0 fL) 91.6 MCH (27.0 - 33.0 pg) 30.6 MCHC (33.0 - 37.0 g/dL) 33.4 RDW (11.5 - 14.5 %) 13.1 Plt Count (150 - 400 x10 3/uL) 254 MPV (7.0 - 9.0 fL) 10.5 H Neut % (Auto) (56.0 - 77.0 %) 84.5 H Lymph % (Auto) (14.0 - 32.0 %) 6.5 L [place] % (Auto) (4.8 - 9.0 %) 8.1 Eos % (Auto) (0.3 - 3.7 %) 0.1 L Baso % (Auto) (0.0 - 2.0 %) 0.1 Neut # (Auto) (2.0 - 7.6 x10 3/uL) 12.28 H Lymph # (Auto) (1.0 - 3.8 x10 3/uL) 0.94 L [place] # (Auto) (0.1 - 0.8 x10 3/uL) 1.17 H Eos # (Auto) (0.0 - 0.2 x10 3/uL) 0.01 Baso # (Auto) (0.0 - 0.2 x10 3/uL) 0.01 Abs Immat Gran (auto) (0.00 - 0.03 x10 3/uL) 0.10 H Immature Gran % (0.0 - 2.0 %) 0.7 Nucleated RBC % (0 - 0 %) 0.0 Nucleated RBCs # (Man) (0.0 - 0.1 x10 3/uL) 0.00 Recent Impressions: RADIOLOGY - XR CHEST 1 V 04/29 0454 Report Impression - Status: SIGNED Entered: 04/29/2023 3614 IMPRESSION: Signs of trace vascular congestion and central pulmonary edema. Suspect trace bilateral pleural effusions. Stable lines and tubes. Impression By: [email or web address] - Adilson Ordaz D.O. Laboratory Tests: 04/28 04/28 04/28 04/28 04/28 1449 1346 1054 0908 0626 Chemistry Sodium (134 - 147 mEq/L) 135 Potassium (3.4 - 5.0 mEq/L) 4.5 Chloride (100 - 108 mEq/L) 110 H Carbon Dioxide (21 - 33 mEq/l) 19 L Anion Gap (0 - 20) 10 BUN (7 - 25 mg/dL) 26 H Creatinine (0.6 - 1.3 mg/dL) 1.2 Glomerular Filtr Rate (90 - 95) 70.5 L Glucose (77 - 141 mg/dL) 186 H POC Glucose (70 - 110 MG/DL) 144 H 149 H 135 H 140 H Calcium (8.0 - 10.5 mg/dL) 8.7 Ionized Calcium [place] (1.09 - 1.30 MMOL/L) 1.13 Magnesium (1.6 - 2.6 mg/dL) 2.19 04/28 04/28 04/28 04/27 0211 0201 0104 2233 Blood Gas Puncture Site Art Line Art Line O2 Saturation (90 - 100 %) 94.0 97.3 ABG pH (7.35 - 7.45) 7.365 7.359 ABG pCO2 (35.0 - 45 mmHg) 34.0 L 34.7 L ABG pO2 (80 - 100.0 mmHg) 73.3 L 96.9 ABG HCO3 (22.0 - 26.0 MMOL/L) 19.4 L 19.6 L ABG Total CO2 20.5 20.7 ABG Base Excess (-4.0 - 4.0 MMOL/L) -5.9 L -5.8 L ABG Hematocrit (37.5 - 50.7 %) 32 L 32 L ABG Hemoglobin (12.5 - 16.9 G/DL) 10.9 L 10.9 L Sodium (134 - 147 mmol/L) 140 140 Potassium (3.4 - 5.0 mmol/L) 4.7 4.8 Chloride (100 - 108 mmol/L) 110 H 110 H Ionized Calcium (1.12 - 1.32 MMOL/L) 1.24 1.20 Lactic Acid (0.9 - 1.7 mmol/l) 0.5 L 0.9 Temperature (F) 99 98.6 O2 Delivery Device Cannula Cannula Chemistry Sodium (134 - 147 mEq/L) 139 Potassium (3.4 - 5.0 mEq/L) 4.6 Chloride (100 - 108 mEq/L) 111 H Carbon Dioxide (21 - 33 mEq/l) 21 Anion Gap (0 - 20) 12 BUN (7 - 25 mg/dL) 25 Creatinine (0.6 - 1.3 mg/dL) 0.9 POC Creatinine (0.8 - 1.3 mg/dL) 0.8 1.0 Glomerular Filtr Rate (90 - 95) 99.6 H Glucose (77 - 141 mg/dL) 142 H POC Glucose (70 - 110 MG/DL) 121 H POC Glucose (mg/dL) (70 - 110 MG/DL) 138 H 150 H Calcium (8.0 - 10.5 mg/dL) 8.5 Magnesium (1.6 - 2.6 mg/dL) 1.84 Total Bilirubin (0.0 - 1.0 mg/dL) 0.40 Direct Bilirubin (0.1 - 0.3 MG/DL) 0.20 Indirect Bilirubin (MG/DL) 0.20 AST (8 - 34 IUnit/L) 42 H ALT (10 - 49 IUnit/L) 25 Total Alk Phosphatase (20 - 125 IUnit/L) 58 Total Protein (6.4 - 8.2 g/dL) 6.0 L Albumin (3.4 - 5.0 g/dL) 3.20 L Hematology WBC (4.5 - 11.0 x10 3/uL) 13.8 H RBC (4.00 - 5.60 x10 6/uL) 3.44 L Hgb (12.5 - 16.9 g/dL) 10.2 L Hct (37.5 - 50.7 %) 31.1 L MCV (81.0 - 99.0 fL) 90.4 MCH (27.0 - 33.0 pg) 29.7 MCHC (33.0 - 37.0 g/dL) 32.8 L RDW (11.5 - 14.5 %) 12.7 Plt Count (150 - 400 x10 3/uL) 260 MPV (7.0 - 9.0 fL) 10.0 H Neut % (Auto) (56.0 - 77.0 %) 88.7 H Lymph % (Auto) (14.0 - 32.0 %) 4.0 L [place] % (Auto) (4.8 - 9.0 %) 6.7 Eos % (Auto) (0.3 - 3.7 %) 0.0 L Baso % (Auto) (0.0 - 2.0 %) 0.1 Neut # (Auto) (2.0 - 7.6 x10 3/uL) 12.23 H Lymph # (Auto) (1.0 - 3.8 x10 3/uL) 0.55 L [place] # (Auto) (0.1 - 0.8 x10 3/uL) 0.92 H Eos # (Auto) (0.0 - 0.2 x10 3/uL) 0.00 Baso # (Auto) (0.0 - 0.2 x10 3/uL) 0.01 Abs Immat Gran (auto) (0.00 - 0.03 0.07 H x10 3/uL) Immature Gran % (0.0 - 2.0 %) 0.5 Nucleated RBC % (0 - 0 %) 0.0 Nucleated RBCs # (Man) (0.0 - 0.1 0.00 x10 3/uL) 04/275 2004 Chemistry POC Glucose (70 - 110 MG/DL) 145 H 157 H Recent Impressions: RADIOLOGY - XR CHEST 1 V 04/28 0518 Report Impression - Status: SIGNED Entered: 04/28/2023 0830 IMPRESSION: Lines and tubes, as detailed above. Pulmonary edema and small left pleural effusion again noted. Enlarged cardiomediastinal silhouette. Impression By: DR.SHEAL Janiya Jiménez M.D. RADIOLOGY - XR CHEST 1 V 04/28 1716 Report Impression - Status: SIGNED Entered: 04/28/2023 1759 IMPRESSION: Improved mild bilateral interstitial infiltrates. Trace effusions. Impression By: Zane Powers M.D. Laboratory Tests: 04/27 04/27 04/27 04/27 04/27 1424 1422 1348 1347 1235 Blood Gas O2 Saturation (90 - 100 %) 100.0 99.7 ABG pH (7.35 - 7.45) 7.380 7.257 *L ABG pCO2 (35.0 - 45 mmHg) 41.5 45.1 H ABG pO2 (80 - 100.0 mmHg) 381.1 *H 238.6 *H ABG HCO3 (22.0 - 26.0 MMOL/L) 24.6 20.1 L ABG Total CO2 25.8 21.5 ABG Base Excess (-4.0 - 4.0 -0.6 -6.8 L MMOL/L) ABG Hematocrit (37.5 - 50.7 %) 29 L 33 L ABG Hemoglobin (12.5 - 16.9 G/DL) 9.7 L 11.3 L Sodium (134 - 147 mmol/L) 140 139 Potassium (3.4 - 5.0 mmol/L) 5.6 H 4.1 Chloride (100 - 108 mmol/L) 108 108 Ionized Calcium (1.12 - 1.32 1.11 L 1.14 MMOL/L) Lactic Acid (0.9 - 1.7 mmol/l) < 0.3 L 0.3 L Chemistry POC Creatinine (0.8 - 1.3 mg/dL) 0.7 L 0.5 L POC Glucose (mg/dL) (70 - 110 155 H 165 H MG/DL) Coagulation Activated Coag Time (74 - 137 SEC) > 1000 H 677 H 152 H 04/27 04/27 04/27 04/27 1233 0828 0651 0322 Blood Gas O2 Saturation (90 - 100 %) 99.8 ABG pH (7.35 - 7.45) 7.331 L ABG pCO2 (35.0 - 45 mmHg) 32.2 L ABG pO2 (80 - 100.0 mmHg) 252.0 *H ABG HCO3 (22.0 - 26.0 MMOL/L) 17.0 *L ABG Total CO2 18.0 ABG Base Excess (-4.0 - 4.0 MMOL/L) -8.0 L ABG Hematocrit (37.5 - 50.7 %) 32 L ABG Hemoglobin (12.5 - 16.9 G/DL) 11.0 L Sodium (134 - 147 mmol/L) 143 Potassium (3.4 - 5.0 mmol/L) 3.5 Chloride (100 - 108 mmol/L) 113 H Ionized Calcium (1.12 - 1.32 MMOL/L) 1.09 L Lactic Acid (0.9 - 1.7 mmol/l) < 0.3 L Chemistry Sodium (134 - 147 mEq/L) 135 Potassium (3.4 - 5.0 mEq/L) 4.5 Chloride (100 - 108 mEq/L) 108 Carbon Dioxide (21 - 33 mEq/l) 23 Anion Gap (0 - 20) 8 BUN (7 - 25 mg/dL) 22 Creatinine (0.6 - 1.3 mg/dL) 0.9 POC Creatinine (0.8 - 1.3 mg/dL) 0.5 L Glomerular Filtr Rate (90 - 95) 99.6 H Glucose (77 - 141 mg/dL) 131 POC Glucose (70 - 110 MG/DL) 150 H POC Glucose (mg/dL) (70 - 110 MG/DL) 139 H Calcium (8.0 - 10.5 mg/dL) 9.2 Magnesium (1.6 - 2.6 mg/dL) 1.66 Coagulation INR (0.8 - 1.2) 1.5 H PTT ([place]) (25.0 - 39.5 Seconds) 32.7 PT Patient/Control Mix (9.3 - 12.9 SECONDS) 16.4 H Hematology WBC (4.5 - 11.0 x10 3/uL) 7.1 RBC (4.00 - 5.60 x10 6/uL) 4.00 Hgb (12.5 - 16.9 g/dL) 12.0 L Hct (37.5 - 50.7 %) 36.3 L MCV (81.0 - 99.0 fL) 90.8 MCH (27.0 - 33.0 pg) 30.0 MCHC (33.0 - 37.0 g/dL) 33.1 RDW (11.5 - 14.5 %) 12.3 Plt Count (150 - 400 x10 3/uL) 277 MPV (7.0 - 9.0 fL) 10.1 H Neut % (Auto) (56.0 - 77.0 %) 60.0 Lymph % (Auto) (14.0 - 32.0 %) 29.4 [place] % (Auto) (4.8 - 9.0 %) 7.5 Eos % (Auto) (0.3 - 3.7 %) 1.8 Baso % (Auto) (0.0 - 2.0 %) 0.7 Neut # (Auto) (2.0 - 7.6 x10 3/uL) 4.27 Lymph # (Auto) (1.0 - 3.8 x10 3/uL) 2.09 [place] # (Auto) (0.1 - 0.8 x10 3/uL) 0.53 Eos # (Auto) (0.0 - 0.2 x10 3/uL) 0.13 Baso # (Auto) (0.0 - 0.2 x10 3/uL) 0.05 Abs Immat Gran (auto) (0.00 - 0.03 0.04 H x10 3/uL) Immature Gran % (0.0 - 2.0 %) 0.6 Nucleated RBC % (0 - 0 %) 0.0 Nucleated RBCs # (Man) (0.0 - 0.1 x10 3/uL) 0.00 Serology SARS-CoV-2 Ag (Rapid) (Negative) Negative 04/26 1601 Chemistry POC Glucose (70 - 110 MG/DL) 175 H 164 H Microbiology: Date/Time Procedure - Status Source Growth 04/27 828 MSSA Surveillance Screen - RECD NASAL 04/27 828 MRSA DNA Surveillance Screen - RECD NASAL Laboratory Tests: 04/26 04/26 04/26 04/25 1123 0714 0545 2028 Chemistry Sodium (134 - 147 mEq/L) 137 Potassium (3.4 - 5.0 mEq/L) 4.6 Chloride (100 - 108 mEq/L) 107 Carbon Dioxide (21 - 33 mEq/l) 23 Anion Gap (0 - 20) 12 BUN (7 - 25 mg/dL) 28 H Creatinine (0.6 - 1.3 mg/dL) 1.0 Glomerular Filtr Rate (90 - 95) 87.8 L Glucose (77 - 141 mg/dL) 137 POC Glucose (70 - 110 MG/DL) 192 H 137 H 214 H Calcium (8.0 - 10.5 mg/dL) 9.2 Magnesium (1.6 - 2.6 mg/dL) 1.64 Hematology WBC (4.5 - 11.0 x10 3/uL) 7.5 RBC (4.00 - 5.60 x10 6/uL) 3.95 L Hgb (12.5 - 16.9 g/dL) 11.9 L Hct (37.5 - 50.7 %) 35.8 L MCV (81.0 - 99.0 fL) 90.6 MCH (27.0 - 33.0 pg) 30.1 MCHC (33.0 - 37.0 g/dL) 33.2 RDW (11.5 - 14.5 %) 12.4 Plt Count (150 - 400 x10 3/uL) 289 MPV (7.0 - 9.0 fL) 10.2 H Neut % (Auto) (56.0 - 77.0 %) 58.7 Lymph % (Auto) (14.0 - 32.0 %) 30.8 [place] % (Auto) (4.8 - 9.0 %) 7.8 Eos % (Auto) (0.3 - 3.7 %) 1.7 Baso % (Auto) (0.0 - 2.0 %) 0.5 Neut # (Auto) (2.0 - 7.6 x10 3/uL) 4.38 Lymph # (Auto) (1.0 - 3.8 x10 3/uL) 2.30 [place] # (Auto) (0.1 - 0.8 x10 3/uL) 0.58 Eos # (Auto) (0.0 - 0.2 x10 3/uL) 0.13 Baso # (Auto) (0.0 - 0.2 x10 3/uL) 0.04 Abs Immat Gran (auto) (0.00 - 0.03 x10 3/uL) 0.04 H Immature Gran % (0.0 - 2.0 %) 0.5 Nucleated RBC % (0 - 0 %) 0.0 Nucleated RBCs # (Man) (0.0 - 0.1 x10 3/uL) 0.00 Laboratory Tests: 04/25 04/25 04/25 04/24 1126 0720 0222 2002 Chemistry Sodium (134 - 147 mEq/L) 134 Potassium (3.4 - 5.0 mEq/L) 4.2 Chloride (100 - 108 mEq/L) 105 Carbon Dioxide (21 - 33 mEq/l) 23 Anion Gap (0 - 20) 11 BUN (7 - 25 mg/dL) 26 H Creatinine (0.6 - 1.3 mg/dL) 1.0 Glomerular Filtr Rate (90 - 95) 87.8 L Glucose (77 - 141 mg/dL) 168 H POC Glucose (70 - 110 MG/DL) 214 H 158 H 347 H Calcium (8.0 - 10.5 mg/dL) 9.2 Magnesium (1.6 - 2.6 mg/dL) 1.60 Hematology WBC (4.5 - 11.0 x10 3/uL) 11.9 H RBC (4.00 - 5.60 x10 6/uL) 3.89 L Hgb (12.5 - 16.9 g/dL) 11.6 L Hct (37.5 - 50.7 %) 34.7 L MCV (81.0 - 99.0 fL) 89.2 MCH (27.0 - 33.0 pg) 29.8 MCHC (33.0 - 37.0 g/dL) 33.4 RDW (11.5 - 14.5 %) 12.5 Plt Count (150 - 400 x10 3/uL) 316 MPV (7.0 - 9.0 fL) 10.5 H Neut % (Auto) (56.0 - 77.0 %) 80.7 H Lymph % (Auto) (14.0 - 32.0 %) 11.5 L [place] % (Auto) (4.8 - 9.0 %) 6.9 Eos % (Auto) (0.3 - 3.7 %) 0.2 L Baso % (Auto) (0.0 - 2.0 %) 0.2 Neut # (Auto) (2.0 - 7.6 x10 3/uL) 9.65 H Lymph # (Auto) (1.0 - 3.8 x10 3/uL) 1.37 [place] # (Auto) (0.1 - 0.8 x10 3/uL) 0.82 H Eos # (Auto) (0.0 - 0.2 x10 3/uL) 0.02 Baso # (Auto) (0.0 - 0.2 x10 3/uL) 0.02 Abs Immat Gran (auto) (0.00 - 0.03 x10 3/uL) 0.06 H Add Manual Diff NO Immature Gran % (0.0 - 2.0 %) 0.5 Nucleated RBC % (0 - 0 %) 0.0 Nucleated RBCs # (Man) (0.0 - 0.1 x10 3/uL) 0.00 Laboratory Tests: 04/24 04/24 04/24 04/24 04/24 1532 1108 1013 0645 0301 Chemistry Sodium (134 - 147 mEq/L) 135 Potassium (3.4 - 5.0 mEq/L) 4.3 Chloride (100 - 108 mEq/L) 106 Carbon Dioxide (21 - 33 mEq/l) 21 Anion Gap (0 - 20) 13 BUN (7 - 25 mg/dL) 18 Creatinine (0.6 - 1.3 mg/dL) 0.9 Glomerular Filtr Rate (90 - 95) 99.6 H Glucose (77 - 141 mg/dL) 113 POC Glucose (70 - 110 MG/DL) 310 H 176 H 149 H 141 H Calcium (8.0 - 10.5 mg/dL) 9.2 Magnesium (1.6 - 2.6 mg/dL) 1.68 Hematology WBC (4.5 - 11.0 x10 3/uL) 7.8 RBC (4.00 - 5.60 x10 6/uL) 3.93 L Hgb (12.5 - 16.9 g/dL) 11.7 L Hct (37.5 - 50.7 %) 35.6 L MCV (81.0 - 99.0 fL) 90.6 MCH (27.0 - 33.0 pg) 29.8 MCHC (33.0 - 37.0 g/dL) 32.9 L RDW (11.5 - 14.5 %) 12.3 Plt Count (150 - 400 x10 3/uL) 278 MPV (7.0 - 9.0 fL) 10.0 H Neut % (Auto) (56.0 - 77.0 %) 68.0 Lymph % (Auto) (14.0 - 32.0 %) 21.2 [place] % (Auto) (4.8 - 9.0 %) 7.9 Eos % (Auto) (0.3 - 3.7 %) 1.9 Baso % (Auto) (0.0 - 2.0 %) 0.4 Neut # (Auto) (2.0 - 7.6 x10 3/uL) 5.28 Lymph # (Auto) (1.0 - 3.8 x10 3/uL) 1.65 [place] # (Auto) (0.1 - 0.8 x10 3/uL) 0.61 Eos # (Auto) (0.0 - 0.2 x10 3/uL) 0.15 Baso # (Auto) (0.0 - 0.2 x10 3/uL) 0.03 Abs Immat Gran (auto) (0.00 - 0.03 0.05 H x10 3/uL) Immature Gran % (0.0 - 2.0 %) 0.6 Nucleated RBC % (0 - 0 %) 0.0 Nucleated RBCs # (Man) (0.0 - 0.1 0.00 x10 3/uL) 04/23 2019 Chemistry POC Glucose (70 - 110 MG/DL) 276 H Microbiology: Date/Time Procedure - Status Source Growth 04/24 1000 Tissue Culture - RES TISSUE 04/24 1000 Anaerobic Culture - RES TISSUE 04/24 1000 Gram Stain - RES TISSUE Laboratory Tests: 04/23 04/23 04/23 04/23 04/23 1550 1110 0703 0330 0330 Chemistry Sodium (134 - 147 mEq/L) 137 Potassium (3.4 - 5.0 mEq/L) 3.9 Chloride (100 - 108 mEq/L) 105 Carbon Dioxide (21 - 33 mEq/l) 22 Anion Gap (0 - 20) 14 BUN (7 - 25 mg/dL) 25 Creatinine (0.6 - 1.3 mg/dL) 1.1 Glomerular Filtr Rate (90 - 95) 78.3 L Glucose (77 - 141 mg/dL) 131 POC Glucose (70 - 110 MG/DL) 265 H 284 H 143 H Calcium (8.0 - 10.5 mg/dL) 9.4 Magnesium (1.6 - 2.6 mg/dL) 1.72 Hematology WBC (4.5 - 11.0 x10 3/uL) 10.1 RBC (4.00 - 5.60 x10 6/uL) 4.24 Hgb (12.5 - 16.9 g/dL) 12.7 Hct (37.5 - 50.7 %) 38.4 MCV (81.0 - 99.0 fL) 90.6 MCH (27.0 - 33.0 pg) 30.0 MCHC (33.0 - 37.0 g/dL) 33.1 RDW (11.5 - 14.5 %) 12.3 Plt Count (150 - 400 x10 3/uL) 332 MPV (7.0 - 9.0 fL) 10.3 H Neut % (Auto) (56.0 - 77.0 %) 71.8 Lymph % (Auto) (14.0 - 32.0 %) 18.0 [place] % (Auto) (4.8 - 9.0 %) 8.4 Eos % (Auto) (0.3 - 3.7 %) 0.8 Baso % (Auto) (0.0 - 2.0 %) 0.4 Neut # (Auto) (2.0 - 7.6 x10 3/uL) 7.28 Lymph # (Auto) (1.0 - 3.8 x10 3/uL) 1.82 [place] # (Auto) (0.1 - 0.8 x10 3/uL) 0.85 H Eos # (Auto) (0.0 - 0.2 x10 3/uL) 0.08 Baso # (Auto) (0.0 - 0.2 x10 3/uL) 0.04 Abs Immat Gran (auto) (0.00 - 0.03 0.06 H x10 3/uL) Immature Gran % (0.0 - 2.0 %) 0.6 Nucleated RBC % (0 - 0 %) 0.0 Nucleated RBCs # (Man) (0.0 - 0.1 0.00 x10 3/uL) 04/23 04/22 0252 2121 Chemistry POC Glucose (70 - 110 MG/DL) 197 H Toxicology Vancomycin Trough (10.0 - 20.0 mcg/mL) 12.1 Recent Impressions: MAGNETIC RESONANCE IMAGING - MRI LOW EXT W/O CONT LT 04/23 1034 Report Impression - Status: SIGNED Entered: 04/23/2023 1207 IMPRESSION: 5th MTP effusion/possible septic arthritis with osteomyelitis changes as detailed. No drainable soft tissue abscess. Impression By: [email or web address] - Aaron Lemuel Goldberg M.D. Laboratory Tests: 04/221 1957 1555 Chemistry Sodium (134 - 147 mEq/L) 139 Potassium (3.4 - 5.0 mEq/L) 4.3 Chloride (100 - 108 mEq/L) 108 Carbon Dioxide (21 - 33 mEq/l) 22 Anion Gap (0 - 20) 14 BUN (7 - 25 mg/dL) 17 Creatinine (0.6 - 1.3 mg/dL) 0.9 Glomerular Filtr Rate (90 - 95) 99.6 H Glucose (77 - 141 mg/dL) 124 POC Glucose (70 - 110 MG/DL) 232 H 133 H Calcium (8.0 - 10.5 mg/dL) 9.0 Hematology WBC (4.5 - 11.0 x10 3/uL) 8.6 RBC (4.00 - 5.60 x10 6/uL) 3.89 L Hgb (12.5 - 16.9 g/dL) 11.5 L Hct (37.5 - 50.7 %) 36.2 L MCV (81.0 - 99.0 fL) 93.1 MCH (27.0 - 33.0 pg) 29.6 MCHC (33.0 - 37.0 g/dL) 31.8 L RDW (11.5 - 14.5 %) 12.5 Plt Count (150 - 400 x10 3/uL) 301 MPV (7.0 - 9.0 fL) 10.1 H Neut % (Auto) (56.0 - 77.0 %) 66.1 Lymph % (Auto) (14.0 - 32.0 %) 23.5 [place] % (Auto) (4.8 - 9.0 %) 7.4 Eos % (Auto) (0.3 - 3.7 %) 2.0 Baso % (Auto) (0.0 - 2.0 %) 0.6 Neut # (Auto) (2.0 - 7.6 x10 3/uL) 5.66 Lymph # (Auto) (1.0 - 3.8 x10 3/uL) 2.01 [place] # (Auto) (0.1 - 0.8 x10 3/uL) 0.63 Eos # (Auto) (0.0 - 0.2 x10 3/uL) 0.17 Baso # (Auto) (0.0 - 0.2 x10 3/uL) 0.05 Abs Immat Gran (auto) (0.00 - 0.03 x10 3/uL) 0.03 Immature Gran % (0.0 - 2.0 %) 0.4 Nucleated RBC % (0 - 0 %) 0.0 Nucleated RBCs # (Man) (0.0 - 0.1 x10 3/uL) 0.00 Microbiology: Date/Time Procedure - Status Source Growth 04/21 1535 Blood Culture - RECD BLOOD 04/21 153 Blood Culture Gram Stain - RECD BLOOD 04/21 153 Blood Culture - RECD BLOOD 04/21 153 Blood Culture Gram Stain - RECD BLOOD Recent Impressions: RADIOLOGY - XR FOOT 3 + V LT 04/21 1423 Report Impression - Status: SIGNED Entered: 04/21/2023 1438 IMPRESSION: Interval progression of osteomyelitis involving the fifth metatarsal head and fifth proximal phalanx base about the MTP joint since the prior study from 04/16/2023. Impression By: [email or web address] - Brett Elizabeth M.D. Laboratory Tests: 04/21 04/21 04/21 04/21 1128 0931 0534 0132 Chemistry Sodium (134 - 147 mEq/L) 137 Potassium (3.4 - 5.0 mEq/L) 4.0 Chloride (100 - 108 mEq/L) 105 Carbon Dioxide (21 - 33 mEq/l) 24 Anion Gap (0 - 20) 12 BUN (7 - 25 mg/dL) 18 Creatinine (0.6 - 1.3 mg/dL) 1.1 Glomerular Filtr Rate (90 - 95) 78.3 L Glucose (77 - 141 mg/dL) 181 H POC Glucose (70 - 110 MG/DL) 172 H Calcium (8.0 - 10.5 mg/dL) 9.3 Magnesium (1.6 - 2.6 mg/dL) 1.61 C-Reactive Protein (<10.0 mg/L) 25.0 H Hematology WBC (4.5 - 11.0 x10 3/uL) 7.0 RBC (4.00 - 5.60 x10 6/uL) 4.05 Hgb (12.5 - 16.9 g/dL) 12.0 L Hct (37.5 - 50.7 %) 36.5 L MCV (81.0 - 99.0 fL) 90.1 MCH (27.0 - 33.0 pg) 29.6 MCHC (33.0 - 37.0 g/dL) 32.9 L RDW (11.5 - 14.5 %) 12.0 Plt Count (150 - 400 x10 3/uL) 305 MPV (7.0 - 9.0 fL) 10.5 H Neut % (Auto) (56.0 - 77.0 %) 61.3 Lymph % (Auto) (14.0 - 32.0 %) 27.0 [place] % (Auto) (4.8 - 9.0 %) 8.9 Eos % (Auto) (0.3 - 3.7 %) 1.7 Baso % (Auto) (0.0 - 2.0 %) 0.7 Neut # (Auto) (2.0 - 7.6 x10 3/uL) 4.28 Lymph # (Auto) (1.0 - 3.8 x10 3/uL) 1.89 [place] # (Auto) (0.1 - 0.8 x10 3/uL) 0.62 Eos # (Auto) (0.0 - 0.2 x10 3/uL) 0.12 Baso # (Auto) (0.0 - 0.2 x10 3/uL) 0.05 Abs Immat Gran (auto) (0.00 - 0.03 x10 3/uL) 0.03 Immature Gran % (0.0 - 2.0 %) 0.4 Nucleated RBC % (0 - 0 %) 0.0 Nucleated RBCs # (Man) (0.0 - 0.1 x10 3/uL) 0.00 ESR Westergren (0 - 15 mm/hr) 87 H Urines Urine Color (YEL/STRAW) YELLOW Urine Appearance (CLEAR) CLEAR Urine pH (5.0 - 7.0) 5.0 Ur Specific [place] (1.005 - 1.030) 1.011 Urine Protein (NEGATIVE) NEGATIVE Urine Glucose (UA) (NEGATIVE) 3+ H Urine Ketones (NEGATIVE) NEGATIVE Urine Blood (NEGATIVE) NEGATIVE Urine Nitrite (NEGATIVE) NEGATIVE Urine Bilirubin (NEGATIVE) NEGATIVE Urine Urobilinogen (0.2 - 1.0 mg/dL) 0.2 Ur Leukocyte Esterase (NEGATIVE) NEGATIVE Urine RBC (0 - 3 RBC/HPF) 0-3 Urine WBC (0 - 3 WBC/HPF) 0-3 Ur Squamous Epith Cells (NONE SEEN /HPF) 0-5 Ur Transition Epith Cell (NONE SEEN /HPF) TRACE Urine Bacteria (NONE SEEN /HPF) TRACE Urine Mucus (NONE SEEN /LPF) TRACE 04/20 Chemistry POC Glucose (70 - 110 MG/DL) 325 H Coagulation INR (0.8 - 1.2) 1.3 H PTT ([place]) (25.0 - 39.5 Seconds) 39.3 PT Patient/Control Mix (9.3 - 12.9 SECONDS) 14.5 H Microbiology: Date/Time Procedure - Status Source Growth 04/21 153 Blood Culture - RECD BLOOD 04/21 153 Blood Culture Gram Stain - RECD BLOOD 04/21 153 Blood Culture - RECD BLOOD 04/21 153 Blood Culture Gram Stain - RECD BLOOD Recent Impressions: RADIOLOGY - XR FOOT 3 + V LT 04/21 142 Report Impression - Status: SIGNED Entered: 04/21/20231437 IMPRESSION: Interval progression of osteomyelitis involving the fifth metatarsal head and fifth proximal phalanx base about the MTP joint since the prior study from 04/16/2023. Impression By: [email or web address] - Brett Elizabeth M.D. 1. 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 2. Coronary artery disease. 6 3. S/P CABG 4. Ex-smoker 5.Left foot wound 6.Hypertension. 7. Hyperlipidemia Blood sugar 181-200 mg/dL. HbA1c 8.3%. Lipids elevated.This Adjust insulin dose. Diabetes dietary education. at 1348 RPT #:[id number] END OF REPORT [facility] 2023-04-30 05:45:00 [facility]) Cardiothoracic Surgery Prog REPORT#:[id number] REPORT STATUS: Signed REPORT INITIALIZATION DATE:04/30/23 TIME: 544 PATIENT: JONG RIVAS UNIT #: [id number] ROOM/BED: 3343-1 : 66 AGE: 58 SEX: M ATTEND: Domenic Rainey MD ADM AUTHOR: Viky Mclaughlin Physic REPT SERVICE DT/TIME: 04/30/2345 * ALL edits or amendments must be made on the electronic/computer document * General Post-op: day 3 Status post: 04/27/23 CABG x 6 (RICHARDS-LAD, Seq-Diag, SVG-ramus, SVG-OM, SVG-PDA, SVG-ALDAIR) EVH (RGSV, LGSV) ALAA PP Subjective Chief complaint: Postop CABG Currently no complaints, resting comfortable Review of Systems Constitutional: Reports: fatigue. Skin: Denies: bruising, contusion, diaphoresis, ecchymosis. Allergy/Immun: Denies: allergic reaction, itching, rhinorrhea, sneezing. Eyes: Denies: redness, discharge, visual loss/blurred. ENT: Denies: throat pain, throat swelling, tongue pain, tongue swelling, toothache. Respiratory: Reports: MENDES (dyspnea on exertion). Denies: SOB, wheezing. Cardiovascular: Denies: chest pain, edema, orthopnea, palpitations. GI: Denies: abdominal pain, nausea, vomiting. : Denies: dysuria, flank pain. Musculoskeletal: Denies: extremity pain, extremity swelling. Psych: Denies: agitation, anxiety, auditory hallucination, visual hallucination. All systems rev neg: except as marked Objective General VS/I O Last Documented: Result Date Time Temp 98.0 04/30 040 Pulse Ox 95 04/30 0400 B/P 120/76 04/30 0400 B/P Mean 93 04/30 0400 Pulse 86 04/30 0400 Resp 27 04/30 0400 O2 Delivery Room air 04/30 0319 O2 Flow Rate 2 04/29 2000 FiO2 28 04/28 2047 24 hour I O ending at 0700: 04/30 0700 04/29 1900 Intake Total 640.00 700 Output Total 1010 1390 Balance -370.00 -690 Intake, IV 400.00 Intake, Oral 240 700 Intake, Oral 0 Supplement Number 1 Bowel Movements Output, Urine 1010 1390 PATIENT WEIGHT: Weight (lb): 242 Weight (oz): 1.08 Weight (kg): 109.800 Physical Exam General appearance: alert, awake, oriented Wound/incision: Location: Left foot toe amputation HEENT: anicteric, mucosal membranes moist, pupils reactive to light Neck: full range of motion, non-tender Cardiovascular: normal heart sounds, regular rate rhythm Respiratory: aerating well, clear to auscultation, symmetric expansion, no distress Abdomen: soft, non-tender Genitourinary: no bladder distention, no flank pain Extremities: dry, moves all, normal capillary refill, normal temperature Musculoskeletal: full range of motion, painless range of motion 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 Patient transferred from [facility], referred to us from Dr. Forde for acute coronary syndrome, unstable angina, ischemic heart disease status post coronary angiogram, with findings of multivessel CAD, EF 50%. Upon further chart review patient found to have chronic cavitary lung lesion on CT chest pending QuantiFERON, left lower extremity diabetic foot ulcer concerning for osteomyelitis MRI done at [place] and will upload imaging, foot wound culture with pseudomonas, UTI with urine culture Pseudomonas treated with cefepime. Patient reports dyspnea on exertion and mild chest pain x1 year. 04/18/23: Coronary angiogram done at [facility] Left main patent LAD with high-grade and tortuous calcified lesion just after the first diagonal estimated 95% stenosis first diagonal branch with severe calcified disease 99% Ramus 90 to 95% stenosis, left circumflex artery 99% proximal stenosis OM branches severe disease as well. RCA 90%. LVEDP 11 mmHg and angiography demonstrated preserved LV systolic function, EF 50%. Inferior wall demonstrated mild hypokinesis. 1-2+ MR on LV angio. RICHARDS patent Carotid angiogram, patent carotids Assessment: CAD, severe multivessel Left foot nonhealing foot ulcer Chronic cavitary lesion noted on CT chest UTI Pseudomonas 2023 Patient seen and evaluated by Dr. Rainey CABG eval underway -Consult pulmonology, cardiology, wound care -Lovenox DVT prophylaxis Continue supportive care Further recommendations to follow 04/21/2023 CABG eval underway Patient sitting up in bed, room air, no distress. No complaints Patient with multiple complex medical issues ongoing. Timing of major CV surgery pending medical optimization. We will discuss patient at high risk CV Case conference on Tuesday. -Continue supportive care Seen and examined by Dr. Rainey 04/23/2023 CABG eval underway Patient sitting up in bed, room air, no distress. No complaints Patient with multiple complex medical issues ongoing. Timing of major CV surgery pending medical optimization. Left foot MRI complete with fifth MTP effusion/possible septic arthritis with osteomyelitis changes, no drainable soft tissue abscess. -Amputation left fifth toe and metatarsal scheduled by podiatry for tomorrow -Blood cultures 04/21/2023 no growth after 24-hour -UA negative -Lovenox DVT prophylaxis Continue supportive care Further recommendations to follow 04/24/2023 CABG eval underway Patient sitting up in bed, room air, no distress. No complaints -Amputation left fifth toe and metatarsal scheduled by podiatry for today -Blood cultures 04/21/2023 no growth after 48-hour -follow tissue culture Continue supportive care Further recommendations to follow 04/25/2023 CABG eval underway, plan for OR likely next week to allow patient some time to recover from amputation. Patient sitting up in bed, room air, no distress. No complaints S/P Amputation left fifth toe and metatarsal -Blood cultures 04/21/2023 no growth after 72-hour Encourage OOBTC, IS, PT/OT Continue supportive care Further recommendations to follow 04/26/2023 CABG eval underway, plan for OR likely next week to allow patient some time to recover from amputation. Patient sitting up in bed, room air, no distress. No complaints S/P Amputation left fifth toe and metatarsal -Blood cultures 04/21/2023 no growth after 72-hour Encourage OOBTC, IS, PT/OT Continue supportive care Further recommendations to follow 04/27/23 Patient resting comfortable. Denies complaints AAO x 3 respiratory spi: on room air. Remains sinus rhythm ID following - CABG after 04/27/23 completed ABX Carotid Dopplers showed less than 50% stenosis. Vein mapping complete CT of the chest completed Consider surgery this afternoon. Ryan brown NPO. Patient seen and Examined with Dr. Rainey. STS score calculated. 0.8% Coronary bypass graft surgery was discussed with the patient. The risk of the operation including the STS score, risk of bleeding, infection, , heart attack, stroke, prolonged ICU stay, renal failure, dialysis, need for long-term rehabilitation etc. was discussed with the patient. The patient's questions were answered and the patient agreed to proceed with surgery. 04/27/23 1. Coronary artery bypass graft surgery x5 (RICHARDS to LAD, sequential to diagonal, saphenous vein to first marginal, saphenous vein to second marginal, saphenous vein to PDA). 2. Amputation of left atrial appendage. 3. Posterior pericardiotomy. 4. Endoscopic vein harvest (left greater saphenous vein). 04/28/23 On room air. POD 1 AAOx3 Patient reports pain controlled. Respiratory: on room air. Encourage IS, Deep Breathing, CXR reviewed, CT outputs- Re-access after walking. Cardiac: Remains sinus rhythm, pacing wires on standby GI: Tolerating diet, passing gas. Continue Bowel regimen : Walton in place. UO:650 Continue PT/OT Disposition: Patient lives alone. We will consult rehab. Patient DVT prophylaxis, SCDs in place Labs reveiwed- replace electrolytes as needed Patient seen and examined by Dr. Rainey. Plan of care discussed with multidisciplinary team Continue supportive care. 04/29/23 On room air. POD 2 AAOx3 Patient reports pain controlled. Respiratory: on room air. Encourage IS, Deep Breathing, CXR reviewed, Cardiac: Remains sinus rhythm, pacing wires on standby GI: Tolerating diet, passing gas. Continue Bowel regimen : Walton in place. Will DC Walton later today UO:580, 40 Lasix ordered today. Continue PT/OT out of bed walking with PT today. Disposition: Patient lives alone. We will consult rehab. Patient DVT prophylaxis, SCDs in place Labs reveiwed- replace electrolytes as needed Plan of care discussed with multidisciplinary team Continue supportive care. 04/30/23 POD 3 AAOx3 Patient reports pain controlled. Respiratory: on room air. ALL CT out. Encourage IS, Deep Breathing, CXR reviewed, Cardiac: Remains sinus rhythm, pacing wires on standby GI: Tolerating diet,+ BM. Continue Bowel regimen UO: 1740 Continue PT/OT out of bed walking with PT today. Disposition: Patient lives alone. Rehab consulted however Patient walked 400 feet yesterday DVT prophylaxis, SCDs in place Labs reveiwed- replace electrolytes as needed Plan of care discussed with multidisciplinary team Continue supportive care. ABX as per ID recommendations. Making good progress., Patient was seen and examined with Dr. Prince Consultants: cardiology, cardiovascular surgery, pulmonary at 0828 at 1729 RPT #:[id number] END OF REPORT [facility] 2023-04-29 17:38:00 [facility] ([facility]) Endocrinology Progress Note REPORT#:[id number] REPORT STATUS: Signed REPORT INITIALIZATION DATE:04/29/23 TIME: 1737 PATIENT: JONG RIVAS UNIT #: [id number] ROOM/BED: [place] [address] : 67 AGE: 58 SEX: M ATTEND: Domenic Rainey MD ADM AUTHOR: Vlad Lay MD REPT SERVICE DT/TIME: 04/29/231737 * ALL edits or amendments must be made on the electronic/computer document * Subjective Patient reports: no complaints Objective General VS: Last Documented: Result Date Time Pulse Ox 98 04/29 1300 B/P 145/97 04/29 1300 B/P Mean 116 04/29 1300 Temp 37.3 04/29 1300 Pulse 84 04/29 1300 Resp 13 04/29 1300 O2 Delivery High flow nasal cannula 04/29 0800 O2 Flow Rate 2 04/29 0800 FiO2 28 04/28 2047 PATIENT WEIGHT: Weight (lb): 242 Weight (oz): 1.08 Weight (kg): 109.800 Medications: Active Meds + DC'd Last 24 Hrs Ipratropium [place] (ATROVENT) 500 MCG RTQ2H PRN PRN INH Cyanocobalamin (Vitamin B-12 500 mcg tab) 500 MCG DAILY PO Ferrous Sulfate (FERROUS SULFATE) 325 MG DAILY PO Doxycycline Monohydrate (DOXYCYCLINE MONOHYDRATE) 100 MG Q12HR PO Insulin Glargine (Semglee) 15 UNIT BEDTIME SUBQ Insulin Human Lispro (HUMALOG) 0 AC HS SUBQ (UNV) Insulin Human Lispro (HUMALOG) 5 UNIT AC SUBQ (UNVr) Calcium Gluconate (Calcium Gluconate 1 GM/NS 50 mL (B2)) 50 ML ONCE ONE IV (DC) Furosemide (LASIX 40 mg/4 mL INJECTION) 40 MG ONCE ONE IV (DC) Potassium Phosphate (POTASSIUM PHOSPHATE) 20 MM ONCE ONE IV Sodium Chloride (SODIUM CHLORIDE 0.9%) 250 ML Bisacodyl (DULCOLAX) 10 MG ONCE PRN RECTAL Magnesium Hydroxide (MILK OF MAGNESIA) 30 ML ONCE PRN PO Alteplase, Recombinant (CATHFLO ACTIVASE) 4 MG ONCE ONE I-CATHETER (DC) Alteplase, Recombinant (CATHFLO ACTIVASE) 2 MG ONCE ONE I-CATHETER (DC) Sterile Water (WATER FOR INJECTION) 2.2 ML ASDIR PRN IV Furosemide (LASIX 40 mg/4 mL INJECTION) 40 MG ONCE ONE IV (DC) Hydralazine HCl (APRESOLINE) 5 MG ONCE ONE IV (DC) Atorvastatin Calcium (LIPITOR) 40 MG 2100 PO Dextrose/Water (DEXTROSE 10% IN WATER) 250 ML ASDIR PRN IV (CKD) Insulin Human Regular (HumuLIN R) 100 UNIT ASDIR IV (CKD) Sodium Chloride (SODIUM CHLORIDE 0.9%) 99 ML Alteplase, Recombinant (CATHFLO ACTIVASE) 2 MG ONCE ONE I-CATHETER (DC) Benzonatate (TESSALON PERLE) 200 MG Q8H PRN PRN PO Sterile Water (WATER FOR INJECTION) 2.2 ML ASDIR PRN IV (DC) Piperacillin Sod/Tazobactam Sod (ZOSYN 3.375GM) 3.375 GM Q8H IV Sodium Chloride (SODIUM CHLORIDE 0.9% 100 ML) 100 ML Clopidogrel Bisulfate (Plavix) 75 MG DAILY PO Polyethylene Glycol (MIRALAX) 17 GM DAILY PO Docusate Sodium (COLACE) 100 MG BID PO Metoprolol Tartrate (LOPRESSOR) 12.5 MG Q12HR PO Sennosides (Senna Lax 8.6 MG TABLET) 17.2 MG BEDTIME PO Aspirin (ASPIRIN) 81 MG DAILY PO Ipratropium [place] (ATROVENT) 500 MCG RTQ4H INH Pantoprazole (PROTONIX) 40 MG DAILY@0600 PO Amiodarone HCl (CORDARONE) 200 MG TID PO Acetaminophen (TYLENOL) 650 MG Q4H PRN PRN PO Acetaminophen (TYLENOL) 650 MG Q4H PRN PRN RECTAL Calcium Chloride (CALCIUM CHLORIDE) 1 GM ASDIR PRN IV Dextrose/Water (DEXTROSE 10% IN WATER) 125 ML ASDIR PRN IV (CKD) Dextrose/Water (DEXTROSE 10% IN WATER) 250 ML ASDIR PRN IV (CKD) Epinephrine (ADRENALIN CHLORIDE) 4 MG ASDIR IV Dextrose/Water (DEXTROSE 5% WATER) 246 ML Glucagon (GLUCAGON) 1 MG ASDIR PRN IM Insulin Human Regular (HumuLIN R) 100 UNIT ASDIR IV (DC) Sodium Chloride (SODIUM CHLORIDE 0.9%) 99 ML Magnesium Sulfate (MAGNESIUM SULFATE 4GM/SWFI 100ML) 100 ML ASDIR PRN IV Magnesium Sulfate (MAGNESIUM SULFATE 2GM/SWFI 50ML) 50 ML ASDIR PRN IV Magnesium Sulfate/Dextrose (MAGNESIUM SULFATE 1GM/D5W 100ML) 100 ML ASDIR PRN IV Nitroglycerin/Dextrose (NITROGLYCERIN 50,000MCG/D5W 250ML) 250 ML ASDIR IV Norepinephrine Bitartrate (NOREPINEPHRINE 8 MG/NS 250 ML) 250 ML TITRATE IV Ondansetron HCl (ZOFRAN) 4 MG Q6H PRN PRN IV Oxycodone HCl (ROXICODONE) 5 MG Q4H PRN PRN PO Oxycodone HCl (ROXICODONE) 10 MG Q4H PRN PRN PO Potassium Chloride (KCL 20MEQ/SWFI 100ML) 100 ML ASDIR PRN IV Sodium Bicarbonate (SODIUM BICARBONATE) 50 MEQ ASDIR PRN IV Sodium Chloride (SODIUM CHLORIDE 0.9%) 1,000 ML .Q20H IV Sodium Chloride (SODIUM CHLORIDE 0.9%) 250 ML Q24H IV Doxycycline Hyclate (VIBRAMYCIN) 100 MG Q12H IV (DC) Sodium Chloride (SODIUM CHLORIDE 0.9% 100 ML) 100 ML Silver Sulfadiazine (SILVADENE 1% 50 GM CREAM) 1 APPLIC Q12HR TOPICAL Gabapentin (NEURONTIN) 200 MG TID PO Dietitian nutrition assessment The data set between the solid lines has been imported from the dietitian's assessment. ___ BMI Calculated: 35.7 Nutrition related diagnosis: Obese Nutrition diagnosis details: BMI 30-39.9 Nutrition problem: Increased nutrient needs Nutrition etiology: Chronic disease Nutrition signs and symptoms: HEALING NEEDS S/P SURGERY Nutrition prescription: 1. RECOMMEND ADVANCE TO A CCD6 CARDIAC DIET. 2. PROVIDE GLUCERNA BID WITH MEALS. 3. MONITOR PO, WT, LABS, BM. 4. HEALTHY HEART DIET EDUCATION PRIOR TO DISCHARGE. Dietitian name: Luana Pacheco, DIET Assessment completed: 04/28/23 ___ Physical Exam General appearance: alert, awake Diagnosis, Assessment Plan Hospital course to date: Laboratory Tests: 04/29 04/29 04/29 04/29 04/29 1706 1413 1207 1007 0802 Chemistry Sodium (134 - 147 mEq/L) 137 Potassium (3.4 - 5.0 mEq/L) 3.8 Chloride (100 - 108 mEq/L) 106 Carbon Dioxide (21 - 33 mEq/l) 21 Anion Gap (0 - 20) 14 BUN (7 - 25 mg/dL) 24 Creatinine (0.6 - 1.3 mg/dL) 1.0 Glomerular Filtr Rate (90 - 95) 87.8 L Glucose (77 - 141 mg/dL) 246 H POC Glucose (70 - 110 MG/DL) 216 H 171 H 186 H 184 H Calcium (8.0 - 10.5 mg/dL) 8.5 Phosphorus (2.5 - 4.9 MG/DL) 1.9 L Magnesium (1.6 - 2.6 mg/dL) 1.84 04/29 04/29 04/29 04/28 0624 0228 0026 2131 Chemistry Sodium (134 - 147 mEq/L) 135 Potassium (3.4 - 5.0 mEq/L) 4.2 Chloride (100 - 108 mEq/L) 108 Carbon Dioxide (21 - 33 mEq/l) 21 Anion Gap (0 - 20) 11 BUN (7 - 25 mg/dL) 24 Creatinine (0.6 - 1.3 mg/dL) 1.1 Glomerular Filtr Rate (90 - 95) 78.3 L Glucose (77 - 141 mg/dL) 241 H POC Glucose (70 - 110 MG/DL) 199 H 217 H 253 H Calcium (8.0 - 10.5 mg/dL) 8.9 Magnesium (1.6 - 2.6 mg/dL) 2.23 Total Bilirubin (0.0 - 1.0 mg/dL) 0.50 Direct Bilirubin (0.1 - 0.3 MG/DL) 0.30 Indirect Bilirubin (MG/DL) 0.20 AST (8 - 34 IUnit/L) 25 ALT (10 - 49 IUnit/L) 22 Total Alk Phosphatase (20 - 125 IUnit/L) 63 Total Protein (6.4 - 8.2 g/dL) 6.6 Albumin (3.4 - 5.0 g/dL) 3.50 Hematology WBC (4.5 - 11.0 x10 3/uL) 14.5 H RBC (4.00 - 5.60 x10 6/uL) 3.33 L Hgb (12.5 - 16.9 g/dL) 10.2 L Hct (37.5 - 50.7 %) 30.5 L MCV (81.0 - 99.0 fL) 91.6 MCH (27.0 - 33.0 pg) 30.6 MCHC (33.0 - 37.0 g/dL) 33.4 RDW (11.5 - 14.5 %) 13.1 Plt Count (150 - 400 x10 3/uL) 254 MPV (7.0 - 9.0 fL) 10.5 H Neut % (Auto) (56.0 - 77.0 %) 84.5 H Lymph % (Auto) (14.0 - 32.0 %) 6.5 L [place] % (Auto) (4.8 - 9.0 %) 8.1 Eos % (Auto) (0.3 - 3.7 %) 0.1 L Baso % (Auto) (0.0 - 2.0 %) 0.1 Neut # (Auto) (2.0 - 7.6 x10 3/uL) 12.28 H Lymph # (Auto) (1.0 - 3.8 x10 3/uL) 0.94 L [place] # (Auto) (0.1 - 0.8 x10 3/uL) 1.17 H Eos # (Auto) (0.0 - 0.2 x10 3/uL) 0.01 Baso # (Auto) (0.0 - 0.2 x10 3/uL) 0.01 Abs Immat Gran (auto) (0.00 - 0.03 x10 3/uL) 0.10 H Immature Gran % (0.0 - 2.0 %) 0.7 Nucleated RBC % (0 - 0 %) 0.0 Nucleated RBCs # (Man) (0.0 - 0.1 x10 3/uL) 0.00 Recent Impressions: RADIOLOGY - XR CHEST 1 V 04/29 654 Report Impression - Status: SIGNED Entered: 04/29/2023813 IMPRESSION: Signs of trace vascular congestion and central pulmonary edema. Suspect trace bilateral pleural effusions. Stable lines and tubes. Impression By: [email or web address] - Adilson Ordaz D.O. Laboratory Tests: 04/28 04/28 04/28 04/28 04/28 1449 1346 1054 0908 0626 Chemistry Sodium (134 - 147 mEq/L) 135 Potassium (3.4 - 5.0 mEq/L) 4.5 Chloride (100 - 108 mEq/L) 110 H Carbon Dioxide (21 - 33 mEq/l) 19 L Anion Gap (0 - 20) 10 BUN (7 - 25 mg/dL) 26 H Creatinine (0.6 - 1.3 mg/dL) 1.2 Glomerular Filtr Rate (90 - 95) 70.5 L Glucose (77 - 141 mg/dL) 186 H POC Glucose (70 - 110 MG/DL) 144 H 149 H 135 H 140 H Calcium (8.0 - 10.5 mg/dL) 8.7 Ionized Calcium [place] (1.09 - 1.30 MMOL/L) 1.13 Magnesium (1.6 - 2.6 mg/dL) 2.19 04/28 04/28 04/28 04/27 0211 0201 0104 2233 Blood Gas Puncture Site Art Line Art Line O2 Saturation (90 - 100 %) 94.0 97.3 ABG pH (7.35 - 7.45) 7.365 7.359 ABG pCO2 (35.0 - 45 mmHg) 34.0 L 34.7 L ABG pO2 (80 - 100.0 mmHg) 73.3 L 96.9 ABG HCO3 (22.0 - 26.0 MMOL/L) 19.4 L 19.6 L ABG Total CO2 20.5 20.7 ABG Base Excess (-4.0 - 4.0 MMOL/L) -5.9 L -5.8 L ABG Hematocrit (37.5 - 50.7 %) 32 L 32 L ABG Hemoglobin (12.5 - 16.9 G/DL) 10.9 L 10.9 L Sodium (134 - 147 mmol/L) 140 140 Potassium (3.4 - 5.0 mmol/L) 4.7 4.8 Chloride (100 - 108 mmol/L) 110 H 110 H Ionized Calcium (1.12 - 1.32 MMOL/L) 1.24 1.20 Lactic Acid (0.9 - 1.7 mmol/l) 0.5 L 0.9 Temperature (F) 99 98.6 O2 Delivery Device Cannula Cannula Chemistry Sodium (134 - 147 mEq/L) 139 Potassium (3.4 - 5.0 mEq/L) 4.6 Chloride (100 - 108 mEq/L) 111 H Carbon Dioxide (21 - 33 mEq/l) 21 Anion Gap (0 - 20) 12 BUN (7 - 25 mg/dL) 25 Creatinine (0.6 - 1.3 mg/dL) 0.9 POC Creatinine (0.8 - 1.3 mg/dL) 0.8 1.0 Glomerular Filtr Rate (90 - 95) 99.6 H Glucose (77 - 141 mg/dL) 142 H POC Glucose (70 - 110 MG/DL) 121 H POC Glucose (mg/dL) (70 - 110 MG/DL) 138 H 150 H Calcium (8.0 - 10.5 mg/dL) 8.5 Magnesium (1.6 - 2.6 mg/dL) 1.84 Total Bilirubin (0.0 - 1.0 mg/dL) 0.40 Direct Bilirubin (0.1 - 0.3 MG/DL) 0.20 Indirect Bilirubin (MG/DL) 0.20 AST (8 - 34 IUnit/L) 42 H ALT (10 - 49 IUnit/L) 25 Total Alk Phosphatase (20 - 125 IUnit/L) 58 Total Protein (6.4 - 8.2 g/dL) 6.0 L Albumin (3.4 - 5.0 g/dL) 3.20 L Hematology WBC (4.5 - 11.0 x10 3/uL) 13.8 H RBC (4.00 - 5.60 x10 6/uL) 3.44 L Hgb (12.5 - 16.9 g/dL) 10.2 L Hct (37.5 - 50.7 %) 31.1 L MCV (81.0 - 99.0 fL) 90.4 MCH (27.0 - 33.0 pg) 29.7 MCHC (33.0 - 37.0 g/dL) 32.8 L RDW (11.5 - 14.5 %) 12.7 Plt Count (150 - 400 x10 3/uL) 260 MPV (7.0 - 9.0 fL) 10.0 H Neut % (Auto) (56.0 - 77.0 %) 88.7 H Lymph % (Auto) (14.0 - 32.0 %) 4.0 L [place] % (Auto) (4.8 - 9.0 %) 6.7 Eos % (Auto) (0.3 - 3.7 %) 0.0 L Baso % (Auto) (0.0 - 2.0 %) 0.1 Neut # (Auto) (2.0 - 7.6 x10 3/uL) 12.23 H Lymph # (Auto) (1.0 - 3.8 x10 3/uL) 0.55 L [place] # (Auto) (0.1 - 0.8 x10 3/uL) 0.92 H Eos # (Auto) (0.0 - 0.2 x10 3/uL) 0.00 Baso # (Auto) (0.0 - 0.2 x10 3/uL) 0.01 Abs Immat Gran (auto) (0.00 - 0.03 0.07 H x10 3/uL) Immature Gran % (0.0 - 2.0 %) 0.5 Nucleated RBC % (0 - 0 %) 0.0 Nucleated RBCs # (Man) (0.0 - 0.1 0.00 x10 3/uL) 04/27 Chemistry POC Glucose (70 - 110 MG/DL) 145 H 157 H Recent Impressions: RADIOLOGY - XR CHEST 1 V 04/28 518 Report Impression - Status: SIGNED Entered: 04/28/202381 IMPRESSION: Lines and tubes, as detailed above. Pulmonary edema and small left pleural effusion again noted. Enlarged cardiomediastinal silhouette. Impression By: DR.SHEAL Janiya Jiménez M.D. RADIOLOGY - XR CHEST 1 V 04/28 1716 Report Impression - Status: SIGNED Entered: 04/28/2023 3475 IMPRESSION: Improved mild bilateral interstitial infiltrates. Trace effusions. Impression By: HelderMVT - Mimi Powers M.D. Laboratory Tests: 04/27 04/27 04/27 04/27 04/27 1424 1422 1348 1347 1235 Blood Gas O2 Saturation (90 - 100 %) 100.0 99.7 ABG pH (7.35 - 7.45) 7.380 7.257 *L ABG pCO2 (35.0 - 45 mmHg) 41.5 45.1 H ABG pO2 (80 - 100.0 mmHg) 381.1 *H 238.6 *H ABG HCO3 (22.0 - 26.0 MMOL/L) 24.6 20.1 L ABG Total CO2 25.8 21.5 ABG Base Excess (-4.0 - 4.0 -0.6 -6.8 L MMOL/L) ABG Hematocrit (37.5 - 50.7 %) 29 L 33 L ABG Hemoglobin (12.5 - 16.9 G/DL) 9.7 L 11.3 L Sodium (134 - 147 mmol/L) 140 139 Potassium (3.4 - 5.0 mmol/L) 5.6 H 4.1 Chloride (100 - 108 mmol/L) 108 108 Ionized Calcium (1.12 - 1.32 1.11 L 1.14 MMOL/L) Lactic Acid (0.9 - 1.7 mmol/l) < 0.3 L 0.3 L Chemistry POC Creatinine (0.8 - 1.3 mg/dL) 0.7 L 0.5 L POC Glucose (mg/dL) (70 - 110 155 H 165 H MG/DL) Coagulation Activated Coag Time (74 - 137 SEC) > 1000 H 677 H 152 H 04/27 04/27 04/27 04/27 1233 0828 0625 0322 Blood Gas O2 Saturation (90 - 100 %) 99.8 ABG pH (7.35 - 7.45) 7.331 L ABG pCO2 (35.0 - 45 mmHg) 32.2 L ABG pO2 (80 - 100.0 mmHg) 252.0 *H ABG HCO3 (22.0 - 26.0 MMOL/L) 17.0 *L ABG Total CO2 18.0 ABG Base Excess (-4.0 - 4.0 MMOL/L) -8.0 L ABG Hematocrit (37.5 - 50.7 %) 32 L ABG Hemoglobin (12.5 - 16.9 G/DL) 11.0 L Sodium (134 - 147 mmol/L) 143 Potassium (3.4 - 5.0 mmol/L) 3.5 Chloride (100 - 108 mmol/L) 113 H Ionized Calcium (1.12 - 1.32 MMOL/L) 1.09 L Lactic Acid (0.9 - 1.7 mmol/l) < 0.3 L Chemistry Sodium (134 - 147 mEq/L) 135 Potassium (3.4 - 5.0 mEq/L) 4.5 Chloride (100 - 108 mEq/L) 108 Carbon Dioxide (21 - 33 mEq/l) 23 Anion Gap (0 - 20) 8 BUN (7 - 25 mg/dL) 22 Creatinine (0.6 - 1.3 mg/dL) 0.9 POC Creatinine (0.8 - 1.3 mg/dL) 0.5 L Glomerular Filtr Rate (90 - 95) 99.6 H Glucose (77 - 141 mg/dL) 131 POC Glucose (70 - 110 MG/DL) 150 H POC Glucose (mg/dL) (70 - 110 MG/DL) 139 H Calcium (8.0 - 10.5 mg/dL) 9.2 Magnesium (1.6 - 2.6 mg/dL) 1.66 Coagulation INR (0.8 - 1.2) 1.5 H PTT (Jalen) (25.0 - 39.5 Seconds) 32.7 PT Patient/Control Mix (9.3 - 12.9 SECONDS) 16.4 H Hematology WBC (4.5 - 11.0 x10 3/uL) 7.1 RBC (4.00 - 5.60 x10 6/uL) 4.00 Hgb (12.5 - 16.9 g/dL) 12.0 L Hct (37.5 - 50.7 %) 36.3 L MCV (81.0 - 99.0 fL) 90.8 MCH (27.0 - 33.0 pg) 30.0 MCHC (33.0 - 37.0 g/dL) 33.1 RDW (11.5 - 14.5 %) 12.3 Plt Count (150 - 400 x10 3/uL) 277 MPV (7.0 - 9.0 fL) 10.1 H Neut % (Auto) (56.0 - 77.0 %) 60.0 Lymph % (Auto) (14.0 - 32.0 %) 29.4 [place] % (Auto) (4.8 - 9.0 %) 7.5 Eos % (Auto) (0.3 - 3.7 %) 1.8 Baso % (Auto) (0.0 - 2.0 %) 0.7 Neut # (Auto) (2.0 - 7.6 x10 3/uL) 4.27 Lymph # (Auto) (1.0 - 3.8 x10 3/uL) 2.09 [place] # (Auto) (0.1 - 0.8 x10 3/uL) 0.53 Eos # (Auto) (0.0 - 0.2 x10 3/uL) 0.13 Baso # (Auto) (0.0 - 0.2 x10 3/uL) 0.05 Abs Immat Gran (auto) (0.00 - 0.03 0.04 H x10 3/uL) Immature Gran % (0.0 - 2.0 %) 0.6 Nucleated RBC % (0 - 0 %) 0.0 Nucleated RBCs # (Man) (0.0 - 0.1 x10 3/uL) 0.00 Serology SARS-CoV-2 Ag (Rapid) (Negative) Negative 04/26 1601 Chemistry POC Glucose (70 - 110 MG/DL) 175 H 164 H Microbiology: Date/Time Procedure - Status Source Growth 04/27 828 MSSA Surveillance Screen - RECD NASAL 04/27 828 MRSA DNA Surveillance Screen - RECD NASAL Laboratory Tests: 04/26 04/26 04/26 04/25 1123 0714 0545 2028 Chemistry Sodium (134 - 147 mEq/L) 137 Potassium (3.4 - 5.0 mEq/L) 4.6 Chloride (100 - 108 mEq/L) 107 Carbon Dioxide (21 - 33 mEq/l) 23 Anion Gap (0 - 20) 12 BUN (7 - 25 mg/dL) 28 H Creatinine (0.6 - 1.3 mg/dL) 1.0 Glomerular Filtr Rate (90 - 95) 87.8 L Glucose (77 - 141 mg/dL) 137 POC Glucose (70 - 110 MG/DL) 192 H 137 H 214 H Calcium (8.0 - 10.5 mg/dL) 9.2 Magnesium (1.6 - 2.6 mg/dL) 1.64 Hematology WBC (4.5 - 11.0 x10 3/uL) 7.5 RBC (4.00 - 5.60 x10 6/uL) 3.95 L Hgb (12.5 - 16.9 g/dL) 11.9 L Hct (37.5 - 50.7 %) 35.8 L MCV (81.0 - 99.0 fL) 90.6 MCH (27.0 - 33.0 pg) 30.1 MCHC (33.0 - 37.0 g/dL) 33.2 RDW (11.5 - 14.5 %) 12.4 Plt Count (150 - 400 x10 3/uL) 289 MPV (7.0 - 9.0 fL) 10.2 H Neut % (Auto) (56.0 - 77.0 %) 58.7 Lymph % (Auto) (14.0 - 32.0 %) 30.8 [place] % (Auto) (4.8 - 9.0 %) 7.8 Eos % (Auto) (0.3 - 3.7 %) 1.7 Baso % (Auto) (0.0 - 2.0 %) 0.5 Neut # (Auto) (2.0 - 7.6 x10 3/uL) 4.38 Lymph # (Auto) (1.0 - 3.8 x10 3/uL) 2.30 [place] # (Auto) (0.1 - 0.8 x10 3/uL) 0.58 Eos # (Auto) (0.0 - 0.2 x10 3/uL) 0.13 Baso # (Auto) (0.0 - 0.2 x10 3/uL) 0.04 Abs Immat Gran (auto) (0.00 - 0.03 x10 3/uL) 0.04 H Immature Gran % (0.0 - 2.0 %) 0.5 Nucleated RBC % (0 - 0 %) 0.0 Nucleated RBCs # (Man) (0.0 - 0.1 x10 3/uL) 0.00 Laboratory Tests: 04/25 04/25 04/25 04/24 1126 0720 0222 2002 Chemistry Sodium (134 - 147 mEq/L) 134 Potassium (3.4 - 5.0 mEq/L) 4.2 Chloride (100 - 108 mEq/L) 105 Carbon Dioxide (21 - 33 mEq/l) 23 Anion Gap (0 - 20) 11 BUN (7 - 25 mg/dL) 26 H Creatinine (0.6 - 1.3 mg/dL) 1.0 Glomerular Filtr Rate (90 - 95) 87.8 L Glucose (77 - 141 mg/dL) 168 H POC Glucose (70 - 110 MG/DL) 214 H 158 H 347 H Calcium (8.0 - 10.5 mg/dL) 9.2 Magnesium (1.6 - 2.6 mg/dL) 1.60 Hematology WBC (4.5 - 11.0 x10 3/uL) 11.9 H RBC (4.00 - 5.60 x10 6/uL) 3.89 L Hgb (12.5 - 16.9 g/dL) 11.6 L Hct (37.5 - 50.7 %) 34.7 L MCV (81.0 - 99.0 fL) 89.2 MCH (27.0 - 33.0 pg) 29.8 MCHC (33.0 - 37.0 g/dL) 33.4 RDW (11.5 - 14.5 %) 12.5 Plt Count (150 - 400 x10 3/uL) 316 MPV (7.0 - 9.0 fL) 10.5 H Neut % (Auto) (56.0 - 77.0 %) 80.7 H Lymph % (Auto) (14.0 - 32.0 %) 11.5 L [place] % (Auto) (4.8 - 9.0 %) 6.9 Eos % (Auto) (0.3 - 3.7 %) 0.2 L Baso % (Auto) (0.0 - 2.0 %) 0.2 Neut # (Auto) (2.0 - 7.6 x10 3/uL) 9.65 H Lymph # (Auto) (1.0 - 3.8 x10 3/uL) 1.37 [place] # (Auto) (0.1 - 0.8 x10 3/uL) 0.82 H Eos # (Auto) (0.0 - 0.2 x10 3/uL) 0.02 Baso # (Auto) (0.0 - 0.2 x10 3/uL) 0.02 Abs Immat Gran (auto) (0.00 - 0.03 x10 3/uL) 0.06 H Add Manual Diff NO Immature Gran % (0.0 - 2.0 %) 0.5 Nucleated RBC % (0 - 0 %) 0.0 Nucleated RBCs # (Man) (0.0 - 0.1 x10 3/uL) 0.00 Laboratory Tests: 04/24 04/24 04/24 04/24 04/24 1532 1108 1013 0645 0301 Chemistry Sodium (134 - 147 mEq/L) 135 Potassium (3.4 - 5.0 mEq/L) 4.3 Chloride (100 - 108 mEq/L) 106 Carbon Dioxide (21 - 33 mEq/l) 21 Anion Gap (0 - 20) 13 BUN (7 - 25 mg/dL) 18 Creatinine (0.6 - 1.3 mg/dL) 0.9 Glomerular Filtr Rate (90 - 95) 99.6 H Glucose (77 - 141 mg/dL) 113 POC Glucose (70 - 110 MG/DL) 310 H 176 H 149 H 141 H Calcium (8.0 - 10.5 mg/dL) 9.2 Magnesium (1.6 - 2.6 mg/dL) 1.68 Hematology WBC (4.5 - 11.0 x10 3/uL) 7.8 RBC (4.00 - 5.60 x10 6/uL) 3.93 L Hgb (12.5 - 16.9 g/dL) 11.7 L Hct (37.5 - 50.7 %) 35.6 L MCV (81.0 - 99.0 fL) 90.6 MCH (27.0 - 33.0 pg) 29.8 MCHC (33.0 - 37.0 g/dL) 32.9 L RDW (11.5 - 14.5 %) 12.3 Plt Count (150 - 400 x10 3/uL) 278 MPV (7.0 - 9.0 fL) 10.0 H Neut % (Auto) (56.0 - 77.0 %) 68.0 Lymph % (Auto) (14.0 - 32.0 %) 21.2 [place] % (Auto) (4.8 - 9.0 %) 7.9 Eos % (Auto) (0.3 - 3.7 %) 1.9 Baso % (Auto) (0.0 - 2.0 %) 0.4 Neut # (Auto) (2.0 - 7.6 x10 3/uL) 5.28 Lymph # (Auto) (1.0 - 3.8 x10 3/uL) 1.65 [place] # (Auto) (0.1 - 0.8 x10 3/uL) 0.61 Eos # (Auto) (0.0 - 0.2 x10 3/uL) 0.15 Baso # (Auto) (0.0 - 0.2 x10 3/uL) 0.03 Abs Immat Gran (auto) (0.00 - 0.03 0.05 H x10 3/uL) Immature Gran % (0.0 - 2.0 %) 0.6 Nucleated RBC % (0 - 0 %) 0.0 Nucleated RBCs # (Man) (0.0 - 0.1 0.00 x10 3/uL) 04/23 2019 Chemistry POC Glucose (70 - 110 MG/DL) 276 H Microbiology: Date/Time Procedure - Status Source Growth 04/24 1000 Tissue Culture - RES TISSUE 04/24 1000 Anaerobic Culture - RES TISSUE 04/24 1000 Gram Stain - RES TISSUE Laboratory Tests: 04/23 04/23 04/23 04/23 04/23 1550 1110 0703 0330 0330 Chemistry Sodium (134 - 147 mEq/L) 137 Potassium (3.4 - 5.0 mEq/L) 3.9 Chloride (100 - 108 mEq/L) 105 Carbon Dioxide (21 - 33 mEq/l) 22 Anion Gap (0 - 20) 14 BUN (7 - 25 mg/dL) 25 Creatinine (0.6 - 1.3 mg/dL) 1.1 Glomerular Filtr Rate (90 - 95) 78.3 L Glucose (77 - 141 mg/dL) 131 POC Glucose (70 - 110 MG/DL) 265 H 284 H 143 H Calcium (8.0 - 10.5 mg/dL) 9.4 Magnesium (1.6 - 2.6 mg/dL) 1.72 Hematology WBC (4.5 - 11.0 x10 3/uL) 10.1 RBC (4.00 - 5.60 x10 6/uL) 4.24 Hgb (12.5 - 16.9 g/dL) 12.7 Hct (37.5 - 50.7 %) 38.4 MCV (81.0 - 99.0 fL) 90.6 MCH (27.0 - 33.0 pg) 30.0 MCHC (33.0 - 37.0 g/dL) 33.1 RDW (11.5 - 14.5 %) 12.3 Plt Count (150 - 400 x10 3/uL) 332 MPV (7.0 - 9.0 fL) 10.3 H Neut % (Auto) (56.0 - 77.0 %) 71.8 Lymph % (Auto) (14.0 - 32.0 %) 18.0 [place] % (Auto) (4.8 - 9.0 %) 8.4 Eos % (Auto) (0.3 - 3.7 %) 0.8 Baso % (Auto) (0.0 - 2.0 %) 0.4 Neut # (Auto) (2.0 - 7.6 x10 3/uL) 7.28 Lymph # (Auto) (1.0 - 3.8 x10 3/uL) 1.82 [place] # (Auto) (0.1 - 0.8 x10 3/uL) 0.85 H Eos # (Auto) (0.0 - 0.2 x10 3/uL) 0.08 Baso # (Auto) (0.0 - 0.2 x10 3/uL) 0.04 Abs Immat Gran (auto) (0.00 - 0.03 0.06 H x10 3/uL) Immature Gran % (0.0 - 2.0 %) 0.6 Nucleated RBC % (0 - 0 %) 0.0 Nucleated RBCs # (Man) (0.0 - 0.1 0.00 x10 3/uL) 04/23 04/22 0252 1 Chemistry POC Glucose (70 - 110 MG/DL) 197 H Toxicology Vancomycin Trough (10.0 - 20.0 mcg/mL) 12.1 Recent Impressions: MAGNETIC RESONANCE IMAGING - MRI LOW EXT W/O CONT LT 04/23 1034 Report Impression - Status: SIGNED Entered: 04/23/2023 1207 IMPRESSION: 5th MTP effusion/possible septic arthritis with osteomyelitis changes as detailed. No drainable soft tissue abscess. Impression By: [email or web address] - Aaron Lemuel Goldberg M.D. Laboratory Tests: 04/22 04/21 04/21 0421 1957 1555 Chemistry Sodium (134 - 147 mEq/L) 139 Potassium (3.4 - 5.0 mEq/L) 4.3 Chloride (100 - 108 mEq/L) 108 Carbon Dioxide (21 - 33 mEq/l) 22 Anion Gap (0 - 20) 14 BUN (7 - 25 mg/dL) 17 Creatinine (0.6 - 1.3 mg/dL) 0.9 Glomerular Filtr Rate (90 - 95) 99.6 H Glucose (77 - 141 mg/dL) 124 POC Glucose (70 - 110 MG/DL) 232 H 133 H Calcium (8.0 - 10.5 mg/dL) 9.0 Hematology WBC (4.5 - 11.0 x10 3/uL) 8.6 RBC (4.00 - 5.60 x10 6/uL) 3.89 L Hgb (12.5 - 16.9 g/dL) 11.5 L Hct (37.5 - 50.7 %) 36.2 L MCV (81.0 - 99.0 fL) 93.1 MCH (27.0 - 33.0 pg) 29.6 MCHC (33.0 - 37.0 g/dL) 31.8 L RDW (11.5 - 14.5 %) 12.5 Plt Count (150 - 400 x10 3/uL) 301 MPV (7.0 - 9.0 fL) 10.1 H Neut % (Auto) (56.0 - 77.0 %) 66.1 Lymph % (Auto) (14.0 - 32.0 %) 23.5 [place] % (Auto) (4.8 - 9.0 %) 7.4 Eos % (Auto) (0.3 - 3.7 %) 2.0 Baso % (Auto) (0.0 - 2.0 %) 0.6 Neut # (Auto) (2.0 - 7.6 x10 3/uL) 5.66 Lymph # (Auto) (1.0 - 3.8 x10 3/uL) 2.01 [place] # (Auto) (0.1 - 0.8 x10 3/uL) 0.63 Eos # (Auto) (0.0 - 0.2 x10 3/uL) 0.17 Baso # (Auto) (0.0 - 0.2 x10 3/uL) 0.05 Abs Immat Gran (auto) (0.00 - 0.03 x10 3/uL) 0.03 Immature Gran % (0.0 - 2.0 %) 0.4 Nucleated RBC % (0 - 0 %) 0.0 Nucleated RBCs # (Man) (0.0 - 0.1 x10 3/uL) 0.00 Microbiology: Date/Time Procedure - Status Source Growth 04/21 1535 Blood Culture - RECD BLOOD 04/21 153 Blood Culture Gram Stain - RECD BLOOD 04/21 153 Blood Culture - RECD BLOOD 04/21 153 Blood Culture Gram Stain - RECD BLOOD Recent Impressions: RADIOLOGY - XR FOOT 3 + V LT 04/21 1423 Report Impression - Status: SIGNED Entered: 04/21/2023 1438 IMPRESSION: Interval progression of osteomyelitis involving the fifth metatarsal head and fifth proximal phalanx base about the MTP joint since the prior study from 04/16/2023. Impression By: [email or web address] - Brett Elizabeth M.D. Laboratory Tests: 04/21 04/21 04/21 04/21 1128 0931 0534 0132 Chemistry Sodium (134 - 147 mEq/L) 137 Potassium (3.4 - 5.0 mEq/L) 4.0 Chloride (100 - 108 mEq/L) 105 Carbon Dioxide (21 - 33 mEq/l) 24 Anion Gap (0 - 20) 12 BUN (7 - 25 mg/dL) 18 Creatinine (0.6 - 1.3 mg/dL) 1.1 Glomerular Filtr Rate (90 - 95) 78.3 L Glucose (77 - 141 mg/dL) 181 H POC Glucose (70 - 110 MG/DL) 172 H Calcium (8.0 - 10.5 mg/dL) 9.3 Magnesium (1.6 - 2.6 mg/dL) 1.61 C-Reactive Protein (<10.0 mg/L) 25.0 H Hematology WBC (4.5 - 11.0 x10 3/uL) 7.0 RBC (4.00 - 5.60 x10 6/uL) 4.05 Hgb (12.5 - 16.9 g/dL) 12.0 L Hct (37.5 - 50.7 %) 36.5 L MCV (81.0 - 99.0 fL) 90.1 MCH (27.0 - 33.0 pg) 29.6 MCHC (33.0 - 37.0 g/dL) 32.9 L RDW (11.5 - 14.5 %) 12.0 Plt Count (150 - 400 x10 3/uL) 305 MPV (7.0 - 9.0 fL) 10.5 H Neut % (Auto) (56.0 - 77.0 %) 61.3 Lymph % (Auto) (14.0 - 32.0 %) 27.0 [place] % (Auto) (4.8 - 9.0 %) 8.9 Eos % (Auto) (0.3 - 3.7 %) 1.7 Baso % (Auto) (0.0 - 2.0 %) 0.7 Neut # (Auto) (2.0 - 7.6 x10 3/uL) 4.28 Lymph # (Auto) (1.0 - 3.8 x10 3/uL) 1.89 [place] # (Auto) (0.1 - 0.8 x10 3/uL) 0.62 Eos # (Auto) (0.0 - 0.2 x10 3/uL) 0.12 Baso # (Auto) (0.0 - 0.2 x10 3/uL) 0.05 Abs Immat Gran (auto) (0.00 - 0.03 x10 3/uL) 0.03 Immature Gran % (0.0 - 2.0 %) 0.4 Nucleated RBC % (0 - 0 %) 0.0 Nucleated RBCs # (Man) (0.0 - 0.1 x10 3/uL) 0.00 ESR Westergren (0 - 15 mm/hr) 87 H Urines Urine Color (YEL/STRAW) YELLOW Urine Appearance (CLEAR) CLEAR Urine pH (5.0 - 7.0) 5.0 Ur Specific [place] (1.005 - 1.030) 1.011 Urine Protein (NEGATIVE) NEGATIVE Urine Glucose (UA) (NEGATIVE) 3+ H Urine Ketones (NEGATIVE) NEGATIVE Urine Blood (NEGATIVE) NEGATIVE Urine Nitrite (NEGATIVE) NEGATIVE Urine Bilirubin (NEGATIVE) NEGATIVE Urine Urobilinogen (0.2 - 1.0 mg/dL) 0.2 Ur Leukocyte Esterase (NEGATIVE) NEGATIVE Urine RBC (0 - 3 RBC/HPF) 0-3 Urine WBC (0 - 3 WBC/HPF) 0-3 Ur Squamous Epith Cells (NONE SEEN /HPF) 0-5 Ur Transition Epith Cell (NONE SEEN /HPF) TRACE Urine Bacteria (NONE SEEN /HPF) TRACE Urine Mucus (NONE SEEN /LPF) TRACE 04/20 Chemistry POC Glucose (70 - 110 MG/DL) 325 H Coagulation INR (0.8 - 1.2) 1.3 H PTT (Jalen) (25.0 - 39.5 Seconds) 39.3 PT Patient/Control Mix (9.3 - 12.9 SECONDS) 14.5 H Microbiology: Date/Time Procedure - Status Source Growth 04/21 1535 Blood Culture - RECD BLOOD 04/21 1535 Blood Culture Gram Stain - RECD BLOOD 04/21 1535 Blood Culture - RECD BLOOD 04/21 1535 Blood Culture Gram Stain - RECD BLOOD Recent Impressions: RADIOLOGY - XR FOOT 3 + V LT 04/21 1423 Report Impression - Status: SIGNED Entered: 04/21/2023 1438 IMPRESSION: Interval progression of osteomyelitis involving the fifth metatarsal head and fifth proximal phalanx base about the MTP joint since the prior study from 04/16/2023. Impression By: [email or web address] - Brett Elizabeth M.D. 1. 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 2. Coronary artery disease. 6 3. S/P CABG 4. Ex-smoker 5.Left foot wound 6.Hypertension. 7. Hyperlipidemia Blood sugar 184-186 mg/dL. HbA1c 8.3%. Lipids elevated.This Adjust insulin dose. Diabetes dietary education. Consultants: cardiology, cardiovascular surgery, pulmonary at 1739 RPT #:[id number] END OF REPORT [facility] 2023-04-29 16:05:00 [facility] ([facility]) Critical Care Progress Note REPORT#:[id number] REPORT STATUS: Signed REPORT INITIALIZATION DATE:04/29/23 TIME: 1604 PATIENT: JONG RIVAS UNIT #: [id number] ROOM/BED: 2201-1 : 66 AGE: 58 SEX: M ATTEND: Domenic Rainey MD ADM AUTHOR: Mayito nEcarnacion Jr, MD REPT SERVICE DT/TIME: 04/29/23 1605 * ALL edits or amendments must be made on the electronic/computer document * Subjective Chief complaint: CABG x 5 (RICHARDS-LAD, Seq-diag, SVG-OM1, SVG-OM2, SVG-PDA) EVH (LGSV) ALAA HPI: 58-year-old male, poor historian, PMHx diabetes on metformin, neuropathy, HTN, former smoker, chronic nonhealing left foot ulcer at the fifth metatarsal located posterior lateral found to have multivessel CAD underwent CABG x5 today. Patient received 1200 cc crystalloid, 450 Cell Saver. EBL was 300. Urine output was 400. On arrival to ICU patient was off pressors. He was on insulin 3 units drip. Patient was intubated on ventilatory support. [address] Comments: 04/29/2023: Overnight events - no major issues. This morning given lasix 40 mg IV. His PICC line was not functioning well - pending evaluation by PICC team. Objective General VS/I O Last Documented: Result Date Time Pulse Ox 98 04/29 1300 B/P 145/97 04/29 1300 B/P Mean 116 04/29 1300 Temp 99.1 04/29 1300 Pulse 84 04/29 1300 Resp 13 04/29 1300 O2 Delivery High flow nasal cannula 04/29 0800 O2 Flow Rate 2 04/29 0800 FiO2 28 04/28 2047 24 hour I O ending at 0700: 04/29 0700 04/28 1900 Intake Total 997.00 860.00 Output Total 615 625 Balance 382.00 235.00 Intake, IV 757.00 320.00 Intake, Oral 240 540 Output, Chest 80 205 Tube Drainage Output, Urine 535 420 Patient 109.8 kg Weight Weight Standing scale Measurement Method PATIENT WEIGHT: Weight (lb): 242 Weight (oz): 1.08 Weight (kg): 109.800 Physical Exam General appearance: alert, awake, oriented Head/eyes: PERRLA Cardiovascular: normal capillary refill, normal heart sounds, regular rate and rhythm, normal S1/S2 Respiratory: aerating well, clear to auscultation, symmetric expansion Abdomen: soft, non-tender, normal bowel sounds Extremities: moves all 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, oriented X 3, CNII-XII intact, normal speech Results Findings/data: Laboratory Tests 04/29 04/29 04/29 04/29 04/29 1413 1207 1007 0802 0624 Chemistry Sodium (134 - 147 mEq/L) 137 Potassium (3.4 - 5.0 mEq/L) 3.8 Chloride (100 - 108 mEq/L) 106 Carbon Dioxide (21 - 33 mEq/l) 21 Anion Gap (0 - 20) 14 BUN (7 - 25 mg/dL) 24 Creatinine (0.6 - 1.3 mg/dL) 1.0 Glomerular Filtr Rate (90 - 95) 87.8 L Glucose (77 - 141 mg/dL) 246 H POC Glucose (70 - 110 MG/DL) 171 H 186 H 184 H 199 H Calcium (8.0 - 10.5 mg/dL) 8.5 Phosphorus (2.5 - 4.9 MG/DL) 1.9 L Magnesium (1.6 - 2.6 mg/dL) 1.84 04/29 04/29 04/28 0228 0026 2131 Chemistry Sodium (134 - 147 mEq/L) 135 Potassium (3.4 - 5.0 mEq/L) 4.2 Chloride (100 - 108 mEq/L) 108 Carbon Dioxide (21 - 33 mEq/l) 21 Anion Gap (0 - 20) 11 BUN (7 - 25 mg/dL) 24 Creatinine (0.6 - 1.3 mg/dL) 1.1 Glomerular Filtr Rate (90 - 95) 78.3 L Glucose (77 - 141 mg/dL) 241 H POC Glucose (70 - 110 MG/DL) 217 H 253 H Calcium (8.0 - 10.5 mg/dL) 8.9 Magnesium (1.6 - 2.6 mg/dL) 2.23 Total Bilirubin (0.0 - 1.0 mg/dL) 0.50 Direct Bilirubin (0.1 - 0.3 MG/DL) 0.30 Indirect Bilirubin (MG/DL) 0.20 AST (8 - 34 IUnit/L) 25 ALT (10 - 49 IUnit/L) 22 Total Alk Phosphatase (20 - 125 IUnit/L) 63 Total Protein (6.4 - 8.2 g/dL) 6.6 Albumin (3.4 - 5.0 g/dL) 3.50 Laboratory Tests 04/29 0228 Hematology WBC (4.5 - 11.0 x10 3/uL) 14.5 H RBC (4.00 - 5.60 x10 6/uL) 3.33 L Hgb (12.5 - 16.9 g/dL) 10.2 L Hct (37.5 - 50.7 %) 30.5 L MCV (81.0 - 99.0 fL) 91.6 MCH (27.0 - 33.0 pg) 30.6 MCHC (33.0 - 37.0 g/dL) 33.4 RDW (11.5 - 14.5 %) 13.1 Plt Count (150 - 400 x10 3/uL) 254 MPV (7.0 - 9.0 fL) 10.5 H Neut % (Auto) (56.0 - 77.0 %) 84.5 H Lymph % (Auto) (14.0 - 32.0 %) 6.5 L [place] % (Auto) (4.8 - 9.0 %) 8.1 Eos % (Auto) (0.3 - 3.7 %) 0.1 L Baso % (Auto) (0.0 - 2.0 %) 0.1 Neut # (Auto) (2.0 - 7.6 x10 3/uL) 12.28 H Lymph # (Auto) (1.0 - 3.8 x10 3/uL) 0.94 L [place] # (Auto) (0.1 - 0.8 x10 3/uL) 1.17 H Eos # (Auto) (0.0 - 0.2 x10 3/uL) 0.01 Baso # (Auto) (0.0 - 0.2 x10 3/uL) 0.01 Abs Immat Gran (auto) (0.00 - 0.03 x10 3/uL) 0.10 H Immature Gran % (0.0 - 2.0 %) 0.7 Nucleated RBC % (0 - 0 %) 0.0 Nucleated RBCs # (Man) (0.0 - 0.1 x10 3/uL) 0.00 Laboratory Tests 04/29/23 1413: [Embedded Image Not Available] 04/29/23 0228: [Embedded Image Not Available] Microbiology: 04/27 828 NASAL: MSSA Surveillance Screen - COMP 04/27 828 NASAL: MRSA DNA Surveillance Screen - COMP Radiology data Recent Impressions: RADIOLOGY - XR CHEST 1 V 04/28 1716 Report Impression - Status: SIGNED Entered: 04/28/2023 1759 IMPRESSION: Improved mild bilateral interstitial infiltrates. Trace effusions. Impression By: Zane Powers M.D. RADIOLOGY - XR CHEST 1 V 04/29 0654 Report Impression - Status: SIGNED Entered: 04/29/2023 0814 IMPRESSION: Signs of trace vascular congestion and central pulmonary edema. Suspect trace bilateral pleural effusions. Stable lines and tubes. Impression By: [email or web address] - Adilson Ordaz D.O. Diagnosis, Assessment Plan Free text A P: Multivessel CAD status post CABG x5 (RICHARDS-LAD, Seq-diag, SVG-OM1, SVG-OM2, SVG- PDA) Postoperative hypoxemic respiratory insufficiency Postoperative pain Leukocytosis Diabetes hyperglycemia Nonhealing left leg ulcer Patient underwent CABG x5 today, on arrival to ICU he was on ventilatory support with assist control ventilation. We will wean down to extubate. We will continue insulin drip to keep sugar below 200. Keep MAP above 65. Monitor chest tube output. Pain management. Monitor urine output monitor kidney function replace electrolyte as needed. Monitor H H. GI and DVT prophylaxis. Continue antibiotic per ID recommendation. 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 Case was discussed at bedside with the nursing staff and respiratory therapist. 04/28 Patient was seen this morning, he is on room air, will keep saturation of 92%. Continue incentive spirometry, pulmonary toileting, bronchodilator as needed. His blood pressure is soft, will keep MAP above 65, off pressors. Monitor urine output, replace electrolyte as needed. May consider diuresing if needed. Monitor chest tube output, will assess later in the day for possible removal. Continue insulin to keep sugar below 200. Continue antibiotic per ID recommendation. Pain management. GI and DVT prophylaxis. Out of bed to chair. PT and OT. Continue metoprolol, amiodarone, aspirin, Plavix and statin. Case was discussed at bedside with the nursing staff, respiratory therapist, pharmacist, social work faculty member and cardiothoracic surgery team. 04/29 Neuro: Pain control, avoid narcotics CV: Hemodynamically stable - off pressors Resp: On room air this morning - continue IS / pulmonary toilet GI: Tolerating diet Endo: On insulin drip - will convert to SSI : Monitor UOP closely - will give lasix 40 mg x 1 - repeat this afternoon for goal of negative 1 L per heart failure team - replace electrolytes Heme: Stable ID: Continue senior living antibiotics per ID Total critical care team: 35 minutes Consultants: cardiology, cardiovascular surgery, pulmonary at 1617 RPT #:[id number] END OF REPORT [facility] 2023-04-29 15:38:00 [facility] ([facility] Heart Failure Progress Note REPORT#:[id number] REPORT STATUS: Signed REPORT INITIALIZATION DATE:04/29/23 TIME: 1537 PATIENT: JONG RIVAS UNIT #: [id number] ROOM/BED: [place] [id number] : 66 AGE: 58 SEX: M ATTEND: Domenic Rainey MD ADM AUTHOR: Domingo Irving [employer] REPT SERVICE DT/TIME: 04/29/23 153 * ALL edits or amendments must be made on the electronic/computer document * Domingo Irving 04/29/23 1538: Subjective HPI: This is a 58 year old male with a past medical history of DM type II, hypertension PE on anticoagulation, right lung lesion, and hypertension that presented initially to [facility] as an NSTEMI, he underwent angiogram and transffered to [facility] after patient was found to have multivessel CAD. The patient underwent CABG x 5 (04/27/2023) and is now recovering. Echocardiogram was performe and showed EF 50-55% with grade I diastolic dysfunction. We were asked to evaluate and make recommendations from a heart failure standpoint. Currently, the patient sitting in chair, reports post op pain better today. Pt's concerning for post op fever and depression. Dr Wood answered questions and explained Objective General VS/I O: Vital Signs Date Temp Pulse Resp B/P B/P Mean Pulse Ox FiO2 04/28-04/29 99.0-99.4 76-109 13-34 109-183/67-97 85-123 84-100 28 24 hour I O ending at 0700: 04/29 0700 04/28 1900 Intake Total 997.00 860.00 Output Total 615 625 Balance 382.00 235.00 Intake, IV 757.00 320.00 Intake, Oral 240 540 Output, Chest 80 205 Tube Drainage Output, Urine 535 420 Patient 242 lb Weight Weight Standing scale Measurement Method PATIENT WEIGHT: Weight (lb): 242 Weight (oz): 1.08 Weight (kg): 109.800 Medications: Medication(s) Ordered: Anti-Infective Agents Sig/Katie Start time Last Medication Dose Route Stop Time Status Admin Doxycycline 100 MG Q12HR 04/29 2100 AC Monohydrate PO 06/09 205 Piperacillin Sod/ 3.375 GM Q8H 04/28 1100 AC 04/29 Tazobactam Sod IV 06/09 1059 1040 Sodium Chloride 100 ML Doxycycline Hyclate 100 MG Q12H 04/27 1200 DC 04/29 Sodium Chloride 100 ML IV 05/25 1159 1213 Autonomic Drugs Sig/Katie Start time Last Medication Dose Route Stop Time Status Admin Ipratropium [place] 500 MCG RTQ2H PRN PRN 04/30 1438 AC INH 07/29 1437 Ipratropium [place] 500 MCG RTQ4H 04/27 1600 AC 04/29 INH 04/30 1438 0745 Epinephrine 4 MG ASDIR 04/27 1445 AC Dextrose/Water 246 ML IV 07/26 1444 Norepinephrine 250 ML TITRATE 04/27 1445 AC Bitartrate IV 07/26 1444 Blood Derivatives Sig/Katie Start time Last Medication Dose Route Stop Time Status Admin Albumin Human 250 ML ONCE ONE 04/28 1630 DC 04/28 IV 04/28 1659 1829 Blood Formation,Coagulation Sig/Katie Start time Last Medication Dose Route Stop Time Status Admin Ferrous Sulfate 325 MG DAILY 04/30 09 AC PO 07/29 0859 Alteplase, 4 MG ONCE ONE 04/29 1000 DC Recombinant I-CATHETER 04/29 1001 Alteplase, 2 MG ONCE ONE 04/29 0945 DC Recombinant I-CATHETER 04/29 0946 Alteplase, 2 MG ONCE ONE 04/28 1745 DC 04/28 Recombinant I-CATHETER 04/28 1746 1825 Clopidogrel Bisulfate 75 MG DAILY 04/28 900 AC 04/29 PO 07/27 0859 0954 Cardiovascular Drugs Sig/Katie Start time Last Medication Dose Route Stop Time Status Admin Hydralazine HCl 5 MG ONCE ONE 04/28 2250 DC IV 04/28 2251 Atorvastatin Calcium 40 MG 2100 04/28 2100 AC 04/28 PO 05/28 2059 205 Metoprolol Tartrate 12.5 MG Q12HR 04/27 2100 AC 04/29 PO 07/26 205 0953 Amiodarone HCl 200 MG TID 04/27 1500 AC 04/29 PO 07/26 1459 0952 Nitroglycerin/ 250 ML ASDIR 04/27 144 AC Dextrose IV 07/26 1444 Central Nervous System Agents Sig/Katie Start time Last Medication Dose Route Stop Time Status Admin Aspirin 81 MG DAILY 04/27 2038 AC 04/29 PO 07/26 203 0953 Acetaminophen 650 MG Q4H PRN PRN 04/27 1445 AC PO 07/26 1444 Acetaminophen 650 MG Q4H PRN PRN 04/27 1445 AC RECTAL 07/26 1444 Magnesium Sulfate 100 ML ASDIR PRN 04/27 1445 AC IV 07/26 1444 Magnesium Sulfate 50 ML ASDIR PRN 04/27 1445 AC 04/28 IV 07/26 1444 0337 Magnesium Sulfate/ 100 ML ASDIR PRN 04/27 1445 AC 04/29 Dextrose IV 07/26 1444 0413 Oxycodone HCl 5 MG Q4H PRN PRN 04/27 1445 AC 04/28 PO 05/02 1444 1204 Oxycodone HCl 10 MG Q4H PRN PRN 04/27 1445 AC 04/29 PO 05/02 1444 1423 Gabapentin 200 MG TID 04/20 1500 AC 04/29 PO 07/19 1459 0955 Electrolytic, Caloric, And Alen Sig/Katie Start time Last Medication Dose Route Stop Time Status Admin Furosemide 40 MG ONCE ONE 04/29 700 DC 04/29 IV 04/29 0701 0807 Dextrose/Water 250 ML ASDIR PRN 04/28 1830 CKD IV 07/27 1829 Calcium Gluconate 50 ML ONCE ONE 04/28 1700 DC IV 04/28 1709 Calcium Chloride 1 GM ASDIR PRN 04/27 1445 AC IV 07/26 1444 Dextrose/Water 125 ML ASDIR PRN 04/27 1445 CKD IV 07/26 1444 Dextrose/Water 250 ML ASDIR PRN 04/27 1445 CKD IV 07/26 1444 Potassium Chloride 100 ML ASDIR PRN 04/27 1445 AC IV 07/26 1444 Sodium Bicarbonate 50 MEQ ASDIR PRN 04/27 1445 AC IV 07/26 1444 Sodium Chloride 1,000 ML .Q20H 04/27 1445 AC 04/28 IV 07/26 1444 0341 Sodium Chloride 250 ML Q24H 04/27 1445 AC IV 07/26 1444 Gastrointestinal Drugs Sig/Katie Start time Last Medication Dose Route Stop Time Status Admin Bisacodyl 10 MG ONCE PRN 04/29 1200 AC RECTAL 07/28 1159 Magnesium Hydroxide 30 ML ONCE PRN 04/29 1200 AC PO Polyethylene Glycol 17 GM DAILY 04/28 0900 AC 04/29 PO 07/27 0859 0952 Docusate Sodium 100 MG BID 04/27 2100 AC 04/29 PO 07/26 2059 0955 Sennosides 17.2 MG BEDTIME 04/27 2100 AC PO 07/26 205 Pantoprazole 40 MG DAILY@0600 04/27 1600 AC 04/29 PO 07/26 1559 0519 Ondansetron HCl 4 MG Q6H PRN PRN 04/27 1445 AC IV 07/26 1444 Hormones And Synthetic Substit Sig/Katie Start time Last Medication Dose Route Stop Time Status Admin Insulin Human Regular 100 UNIT ASDIR 04/28 1830 CKD Sodium Chloride 99 ML IV 07/27 1829 Glucagon 1 MG ASDIR PRN 04/27 1445 AC IM 07/26 1444 Insulin Human Regular 100 UNIT ASDIR 04/27 1445 DC Sodium Chloride 99 ML IV 07/26 1444 Pharmaceutical Aids Sig/Katie Start time Last Medication Dose Route Stop Time Status Admin Sterile Water 2.2 ML ASDIR PRN 04/29 0945 AC IV 04/30 0840 Sterile Water 2.2 ML ASDIR PRN 04/28 1745 AC IV 04/29 1634 Respiratory Tract Agents Sig/Katie Start time Last Medication Dose Route Stop Time Status Admin Benzonatate 200 MG Q8H PRN PRN 04/28 174 AC 04/28 PO 07/27 1744 1851 Skin And Mucous Membrane Agent Sig/Katie Start time Last Medication Dose Route Stop Time Status Admin Silver Sulfadiazine 1 APPLIC Q12HR 04/22 2100 AC 04/29 TOPICAL 07/21 2059 0954 Vitamins Sig/Katie Start time Last Medication Dose Route Stop Time Status Admin Cyanocobalamin 500 MCG DAILY 04/30 0900 AC PO 07/29 0859 Physical Exam General appearance: alert, awake, oriented, no acute distress, pleasant, conversational, no respiratory distress Neck: full range of motion, non-tender, no bruit/NL carotids, no JVD Cardiovascular: regular rate and rhythm, no ectopy Respiratory: no distress Extremities: moves all, no edema 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, oriented X 3, normal speech Skin: dry Psychiatry: normal affect, normal judgment/insight, normal mood Results Findings/data: 04/29/23 1413: [Embedded Image Not Available] 04/29/23 0228: [Embedded Image Not Available] 04/28/23 1449: [Embedded Image Not Available] 04/28/23 0201: [Embedded Image Not Available] 04/27/23 1643: [Embedded Image Not Available] Laboratory Tests Test Result Date Time Chemistry B-Natriuretic Peptide (0 - 100 PG/ML) 159.0 H 04/20 0315 Recent Impressions: RADIOLOGY - XR CHEST 1 V 04/28 1716 Report Impression - Status: SIGNED Entered: 04/28/2023 1759 IMPRESSION: Improved mild bilateral interstitial infiltrates. Trace effusions. Impression By: Zane Powers M.D. RADIOLOGY - XR CHEST 1 V 04/29 0654 Report Impression - Status: SIGNED Entered: 04/29/2023 0814 IMPRESSION: Signs of trace vascular congestion and central pulmonary edema. Suspect trace bilateral pleural effusions. Stable lines and tubes. Impression By: [email or web address] Janiya Ordaz D.O. Results: no new labs, labs reviewed, vital signs reviewed, rhythm personally rev 'd, current med profile rev'd Telemetry interpretation: SR rate 8 Diagnosis, Assessment Plan Consultants: cardiology, cardiovascular surgery, pulmonary Free Text DxA P Notes Free text DxA P notes: Patient presented with symptoms of CAD/chest pain. patient underwent successful CABG x 5 with ALAA. Patient does not appear fluid overloaded at this point. Renal function is WNL. Last TTE 2023 showed: Left ventricle: The cavity size is normal. Wall thickness is increased. Systolic function is normal. The estimated ejection fraction is 55-60%. Wall motion is normal; there are no regional wall motion abnormalities. Doppler parameters are consistent with abnormal left ventricular relaxation (grade 1 diastolic dysfunction). CAD status post CABG x5 (RICHARDS-LAD, Seq-diag, SVG-OM1, SVG-OM2, SVG-PDA) Meds- aspirin, plavix, and statin BP 140s/70s SR rate 80 post op pain- well controlled lasix 20mg IV x1, per ICC DM type 2 per PCP Non-healing left leg ulcer/osteomyelitis ID managing Plan * Con't post CABG care * con't PT * Con't IV lasix Nathen Wood 05/02/23 1328: Attestations Physician Attestation Agree w/findings plan: Agree with the findings and plan as documented by DAVIN I have seen and examined this patient I have reviewed the history and repeated the quiñonez elements I have reviewed the progress in the clinical course since the last examination I have discussed the patient's condition with other members of the care team I have independently interpreted avaialble diagnostic studies (EKG CXR Echo Cardiac cath) * my personal evaluation is Patient is volume overloaded on physical exam CAD status post CABG x5 (RICHARDS-LAD, Seq-diag, SVG-OM1, SVG-OM2, SVG-PDA) Diabetes mellitus type 2 Nonhealing left leg ulcer/osteomyelitis Recommend IV Lasix for volume overload Continue DAPT with aspirin and Plavix Continue Lipitor Continue metoprolol Maintain MAP 70-90 Maintain CVP 8-10 Trend BMP, lactate I devoted my full attention for this service to the direct care of this patient and time devoted to teaching and other procedures is not included. Total time spent providing critical care (non-overlapping/non-continuous time): 35 minutes Life threatening disease due to CAD-status post CABG during this admission Invasive hemodynamic monitoring Organ systems impaired or failing: Cardiac at 1553 at 1352 RPT #:[id number] END OF REPORT [facility] 2023-04-29 10:46:00 [facility] ([facility]) Infectious Dis. Progress Note REPORT#:[id number] REPORT STATUS: Signed REPORT INITIALIZATION DATE:04/29/23 TIME: 104 PATIENT: JONG RIVAS UNIT #: [id number] ROOM/BED: [place] [address] : 67 AGE: 58 SEX: M ATTEND: Domenic Rainey MD ADM AUTHOR: Kirk Wakefield MD REPT SERVICE DT/TIME: 04/29/23 1046 * ALL edits or amendments must be made on the electronic/computer document * Subjective Chief complaint: Left-sided diabetic foot infection with osteomyelitis HPI: Remains in CVICU. On supplemental oxygen at 2 L/min via NC. Reports feeling okay and denies acute or new complaints currently. No major overnight events. Objective General VS/I O: Vital Signs Date Temp Pulse Resp B/P B/P Mean Pulse Ox FiO2 04/28-04/29 98.8-99.4 75-109 9-34 99-183/54-86 69-123 84-99 28 Last Documented: Result Date Time Pulse Ox 96 04/29 1000 B/P 140/80 04/29 1000 B/P Mean 104 04/29 1000 Temp 99.0 04/29 1000 Pulse 84 04/29 1000 Resp 26 04/29 1000 O2 Delivery Nasal cannula 04/29 0431 O2 Flow Rate 2 04/29 0431 FiO2 28 04/28 2047 Vital Signs: Date Time Temp Pulse Resp B/P B/P Pulse O2 O2 Flow FiO2 Mean Ox Delivery Rate 04/29 1000 99.0 84 26 140/80 104 96 04/29 0917 90 29 146/85 110 96 04/29 0800 87 27 130/77 97 93 04/29 0700 83 30 132/81 102 93 04/29 0557 79 22 93 04/29 0530 85 34 94 04/29 0500 83 23 133/67 93 96 04/29 0437 84 17 96 04/29 0431 95 Nasal 2 cannula 04/29 0430 85 14 96 04/29 0400 81 22 130/67 92 97 04/29 0330 82 22 97 04/29 0300 81 15 128/68 91 97 04/29 0252 80 18 96 04/29 0230 81 24 84 04/29 0200 86 125/72 93 87 04/29 0149 86 28 109/68 85 96 04/29 0148 85 124/70 92 97 04/29 0130 85 31 99 04/29 0100 85 28 98 04/29 0030 91 24 98 04/29 0000 90 28 168/81 116 97 04/28 2330 90 25 98 04/28 2301 90 28 148/76 107 96 04/28 2300 90 34 160/83 113 97 04/28 2244 90 22 183/86 123 97 04/28 2230 91 26 97 04/28 2216 91 25 98 04/28 2200 91 26 179/84 120 97 04/28 2130 94 30 98 04/28 2100 102 32 164/82 113 95 04/28 2047 93 Nasal 2 28 cannula 04/28 2030 109 31 04/28 2003 101 33 149/73 104 97 04/28 2000 99.4 04/28 2000 99 29 95 04/28 1930 90 28 97 04/28 1900 90 29 152/73 104 97 04/28 1130 79 29 99/62 76 95 04/28 1100 103/62 77 04/28 1100 98.8 75 9 114/54 69 96 24 hour I O ending at 0700: 04/29 0700 04/28 1900 Intake Total 997.00 860.00 Output Total 615 625 Balance 382.00 235.00 Intake, IV 757.00 320.00 Intake, Oral 240 540 Output, Chest 80 205 Tube Drainage Output, Urine 535 420 Patient 109.8 kg Weight Weight Standing scale Measurement Method PATIENT WEIGHT: Weight (lb): 242 Weight (oz): 1.08 Weight (kg): 109.800 Physical Exam General appearance: alert, awake, no acute distress Cardiovascular: normal heart sounds, regular rate rhythm, no murmur Respiratory: bibasilar crackles, worse of left; no rhonchi Abdomen: non-tender, soft, no distention Extremities: no cyanosis, left foot dressed; dressing clean, dry and intact; dressing not removed for exam, bilateral legs pitting edema noted 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 Rivas is a 58-year-old male with history of diabetes mellitus type 2, hypertension, prior smoking history, chronic PE, chronic left foot ulcer. He was admitted at [facility] with complaints of chest pain. He had a coronary angiogram done which showed multivessel CAD and EF of 50%. Patient also has a right lower lobe cavitary lung lesion, which is suspected to be from prior PE. TB QuantiFERON has been requested at the outside facility and was pending at the time of transfer. Infectious disease consultation is requested because patient has a chronic, nonhealing wound in the left lateral foot for last 7 to 8 months according to him. The wound is obviously infected and foul-smelling on exam. He had an MRI done at the outside facility, which shows osteomyelitis of the fifth metatarsal. Patient has a PICC line in place, from outside facility. I was able to review blood cultures, which were reportedly negative at 48 hours. He did have a urine culture positive for Pseudomonas. Other culture data is not available to me. Infectious disease consultation is requested for left-sided diabetic foot infection with osteomyelitis. Patient is being evaluated for possible CABG versus high risk PCI *Left-sided diabetic foot infection with osteomyelitis *Left foot cellulitis *Multivessel CAD, s/p CABG times 5 on 04/27/2023 *RLL cavitary lung lesion, question due to prior PE *Pseudomonas UTI, treated with cefepime *Diabetes mellitus type 2 *Hypertension *Peripheral neuropathy *Prior PE -Afebrile. -On supplemental oxygen at 2 L/min via nasal cannula. -WBC count 14.5 today slightly worse, compared to yesterday. -ESR 87; CRP 25 on 04/21/2023. -Blood cultures 04/21/23 negative x 2. -MRSA screen negative. -Called [facility] earlier. Patient's blood cultures have been negative there. Wound culture is positive for MSSA and Pseudomonas ( pansensitive isolate). -Podiatry service is following. Patient is s/p left foot I D and fifth proximal phalanx and metatarsal head resection on 04/24/2023. -Surgical cultures with growth of Pseudomonas aeruginosa, alpha Streptococcus species, many Staphylococcus epidermidis, methicillin-resistant (MRSE) and also with growth of Enterococcus raffinosus (ampicillin sensitive). -S/p CABG times 5 on 04/27/2023. Plan: -Continue piperacillin-tazobactam 3.375 g IV every 8 hours, which would adequately cover Pseudomonas, alpha Strep, Enterococcus. -Continue doxycycline for MRSE coverage. Okay to switch to p.o. formulation. -Continue local wound care. -Glycemic control. -Given osteomyelitis, would plan for a 6-week course of antibiotic treatment in total. -Patient is nonfunded and may have to finish treatment with oral agents on discharge. Based on available sensitivities, a combination of Augmentin + ciprofloxacin + doxycycline would provide adequate coverage, although with associated fluoroquinolone toxicities. -Repeat inflammatory markers with a.m. labs. -Further recommendations to follow based upon clinical course. CURRENT ANTIMICROBIALS: Doxycycline, started 04/27/2023 Piperacillin-tazobactam, started 04/28/2023 Tentative stop date of antimicrobials: 06/09/2023 (Previously on: Cefepime + metronidazole between 04/21/2023-04/27/2023) at 1051 RPT #:[id number] END OF REPORT [facility] 2023-04-29 07:16:00 [facility] Progress Note REPORT#:[id number] REPORT STATUS: Signed REPORT INITIALIZATION DATE:04/29/23 TIME: 715 PATIENT: JONG RIVAS UNIT #: [id number] ROOM/BED: [place] [address] : 67 AGE: 58 SEX: M ATTEND: Domenic Rainey MD ADM AUTHOR: Mayco Wiggins REPT SERVICE DT/TIME: 04/29/23 0716 * ALL edits or amendments must be made on the electronic/computer document * Subjective Chief complaint: PMR follow-up Seen in CVICU NAD Eating fair Denies ERWIN/N/V/D/CP 14 systems reviewed and neg. except that above. Objective General VS: Vital Signs: Date Time Temp Pulse Resp B/P B/P Pulse O2 O2 Flow FiO2 Mean Ox Delivery Rate 04/29 0557 79 22 93 04/29 0530 85 34 94 04/29 0500 83 23 133/67 93 96 04/29 0437 84 17 96 04/29 0431 95 Nasal 2 cannula 04/29 0430 85 14 96 04/29 0400 81 22 130/67 92 97 04/29 0330 82 22 97 04/29 0300 81 15 128/68 91 97 04/29 0252 80 18 96 04/29 0230 81 24 84 04/29 0200 86 125/72 93 87 04/29 0149 86 28 109/68 85 96 04/29 0148 85 124/70 92 97 04/29 0130 85 31 99 04/29 0100 85 28 98 04/29 0030 91 24 98 04/29 0000 90 28 168/81 116 97 04/28 2330 90 25 98 04/28 2301 90 28 148/76 107 96 04/28 2300 90 34 160/83 113 97 04/28 2244 90 22 183/86 123 97 04/28 2230 91 26 97 04/28 2216 91 25 98 04/28 2200 91 26 179/84 120 97 04/28 2130 94 30 98 04/28 2100 102 32 164/82 113 95 04/28 2047 93 Nasal 2 28 cannula 04/28 2030 109 31 04/28 2003 101 33 149/73 104 97 04/28 2000 99.4 04/28 2000 99 29 95 04/28 1930 90 28 97 04/28 1900 90 29 152/73 104 97 04/28 1130 79 29 99/62 76 95 04/28 1100 103/62 77 04/28 1100 98.8 75 9 114/54 69 96 04/28 1030 96/61 74 04/28 1030 98.6 71 27 100/50 63 94 04/28 1004 74 37 106/52 66 95 04/28 1000 75 04/28 0930 99.0 70 18 106/51 66 95 04/28 0900 99.0 73 9 101/52 65 95 04/28 0800 94/57 69 04/28 0800 99.0 69 8 106/53 67 95 04/28 0730 98.8 67 23 97/48 61 95 PATIENT WEIGHT: Weight (lb): 242 Weight (oz): 1.08 Weight (kg): 109.800 Medications: Active Meds + DC'd Last 24 Hrs Ipratropium [place] (ATROVENT) 500 MCG RTQ2H PRN PRN INH Cyanocobalamin (Vitamin B-12 500 mcg tab) 500 MCG DAILY PO Ferrous Sulfate (FERROUS SULFATE) 325 MG DAILY PO Bisacodyl (DULCOLAX) 10 MG ONCE PRN RECTAL Magnesium Hydroxide (MILK OF MAGNESIA) 30 ML ONCE PRN PO Furosemide (LASIX 40 mg/4 mL INJECTION) 40 MG ONCE ONE IV (DC) Hydralazine HCl (APRESOLINE) 5 MG ONCE ONE IV (DC) Atorvastatin Calcium (LIPITOR) 40 MG 2100 PO Dextrose/Water (DEXTROSE 10% IN WATER) 250 ML ASDIR PRN IV (CKD) Insulin Human Regular (HumuLIN R) 100 UNIT ASDIR IV (CKD) Sodium Chloride (SODIUM CHLORIDE 0.9%) 99 ML Alteplase, Recombinant (CATHFLO ACTIVASE) 2 MG ONCE ONE I-CATHETER (DC) Benzonatate (TESSALON PERLE) 200 MG Q8H PRN PRN PO Sterile Water (WATER FOR INJECTION) 2.2 ML ASDIR PRN IV Calcium Gluconate (Calcium Gluconate 1 GM/NS 50 mL (B2)) 50 ML ONCE ONE IV (DC) Albumin Human (ALBUMINAR 5% 12.5GM/250ML) 250 ML ONCE ONE IV (DC) Piperacillin Sod/Tazobactam Sod (ZOSYN 3.375GM) 3.375 GM Q8H IV Sodium Chloride (SODIUM CHLORIDE 0.9% 100 ML) 100 ML Clopidogrel Bisulfate (Plavix) 75 MG DAILY PO Polyethylene Glycol (MIRALAX) 17 GM DAILY PO Acetaminophen (OFIRMEV 10MG/ML) 100 ML Q6H IV (DC) Docusate Sodium (COLACE) 100 MG BID PO Metoprolol Tartrate (LOPRESSOR) 12.5 MG Q12HR PO Sennosides (Senna Lax 8.6 MG TABLET) 17.2 MG BEDTIME PO Aspirin (ASPIRIN) 81 MG DAILY PO Ipratropium [place] (ATROVENT) 500 MCG RTQ4H INH Pantoprazole (PROTONIX) 40 MG DAILY@0600 PO Amiodarone HCl (CORDARONE) 200 MG TID PO Acetaminophen (TYLENOL) 650 MG Q4H PRN PRN PO Acetaminophen (TYLENOL) 650 MG Q4H PRN PRN RECTAL Albumin Human (ALBUMINAR 25%) 25 GM ASDIR PRN IV (DC) Calcium Chloride (CALCIUM CHLORIDE) 1 GM ASDIR PRN IV Dextrose/Water (DEXTROSE 10% IN WATER) 125 ML ASDIR PRN IV (CKD) Dextrose/Water (DEXTROSE 10% IN WATER) 250 ML ASDIR PRN IV (CKD) Epinephrine (ADRENALIN CHLORIDE) 4 MG ASDIR IV Dextrose/Water (DEXTROSE 5% WATER) 246 ML Glucagon (GLUCAGON) 1 MG ASDIR PRN IM Insulin Human Regular (HumuLIN R) 100 UNIT ASDIR IV (CKD) Sodium Chloride (SODIUM CHLORIDE 0.9%) 99 ML Magnesium Sulfate (MAGNESIUM SULFATE 4GM/SWFI 100ML) 100 ML ASDIR PRN IV Magnesium Sulfate (MAGNESIUM SULFATE 2GM/SWFI 50ML) 50 ML ASDIR PRN IV Magnesium Sulfate/Dextrose (MAGNESIUM SULFATE 1GM/D5W 100ML) 100 ML ASDIR PRN IV Nitroglycerin/Dextrose (NITROGLYCERIN 50,000MCG/D5W 250ML) 250 ML ASDIR IV Norepinephrine Bitartrate (NOREPINEPHRINE 8 MG/NS 250 ML) 250 ML TITRATE IV Ondansetron HCl (ZOFRAN) 4 MG Q6H PRN PRN IV Oxycodone HCl (ROXICODONE) 5 MG Q4H PRN PRN PO Oxycodone HCl (ROXICODONE) 10 MG Q4H PRN PRN PO Potassium Chloride (KCL 20MEQ/SWFI 100ML) 100 ML ASDIR PRN IV Sodium Bicarbonate (SODIUM BICARBONATE) 50 MEQ ASDIR PRN IV Sodium Chloride (SODIUM CHLORIDE 0.9%) 1,000 ML .Q20H IV Sodium Chloride (SODIUM CHLORIDE 0.9%) 250 ML Q24H IV Doxycycline Hyclate (VIBRAMYCIN) 100 MG Q12H IV Sodium Chloride (SODIUM CHLORIDE 0.9% 100 ML) 100 ML Silver Sulfadiazine (SILVADENE 1% 50 GM CREAM) 1 APPLIC Q12HR TOPICAL Cefepime HCl (MAXIPIME) 1 GM Q6H IV (DC) Sodium Chloride (SODIUM CHLORIDE) 10 ML Metronidazole (FLAGYL) 500 MG Q8H PO (DC) Gabapentin (NEURONTIN) 200 MG TID PO Functional Progress Functional progress: Weightbearing: No Restriction Ambulation Distance: 75 FT Progression: Forward Assistance Level: Minimal Assistance [facility] Mobility: No Document Pain/Education: No Advanced Progression: No Effects of Treatment: Cardio tolerance improved Post TX Precautions: In Chair Call Light in Reach Nursing Notified Review Plan of Care: Yes Gait Cmt: SEE REEVAL POST CABG. If this is the patient's last treatment, this entry serves as the discharge summary: Y Start Time: 932 Stop Time: 944 Treatment Time: ( minutes) 0:12 Completed by: Montana Davis TRANSFERS: Yes Bed to/from chair: Minimal Assistance Sit to/from stand: Minimal Assistance Physical Exam General appearance: alert, awake Psych: alert, oriented x 3 HEENT: anicteric, sclera clear Neck: supple, no JVD Cardiovascular: regular rate rhythm, S1/S2 Respiratory: aerating well, clear bilaterally Abdomen: bowel sounds present, non-distended, soft Skin: no rash, surgical incisions C/D/I Musculoskeletal - general: Musculoskeletal - general: joints normal, normal muscle mass 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, oriented X 3, CNII-XII intact Results Findings/Data: Laboratory Tests: 04/29 04/29 04/29 04/28 0624 0228 0026 2131 Chemistry Sodium (134 - 147 mEq/L) 135 Potassium (3.4 - 5.0 mEq/L) 4.2 Chloride (100 - 108 mEq/L) 108 Carbon Dioxide (21 - 33 mEq/l) 21 Anion Gap (0 - 20) 11 BUN (7 - 25 mg/dL) 24 Creatinine (0.6 - 1.3 mg/dL) 1.1 Glomerular Filtr Rate (90 - 95) 78.3 L Glucose (77 - 141 mg/dL) 241 H POC Glucose (70 - 110 MG/DL) 199 H 217 H 253 H Calcium (8.0 - 10.5 mg/dL) 8.9 Magnesium (1.6 - 2.6 mg/dL) 2.23 Total Bilirubin (0.0 - 1.0 mg/dL) 0.50 Direct Bilirubin (0.1 - 0.3 MG/DL) 0.30 Indirect Bilirubin (MG/DL) 0.20 AST (8 - 34 IUnit/L) 25 ALT (10 - 49 IUnit/L) 22 Total Alk Phosphatase (20 - 125 IUnit/L) 63 Total Protein (6.4 - 8.2 g/dL) 6.6 Albumin (3.4 - 5.0 g/dL) 3.50 Hematology WBC (4.5 - 11.0 x10 3/uL) 14.5 H RBC (4.00 - 5.60 x10 6/uL) 3.33 L Hgb (12.5 - 16.9 g/dL) 10.2 L Hct (37.5 - 50.7 %) 30.5 L MCV (81.0 - 99.0 fL) 91.6 MCH (27.0 - 33.0 pg) 30.6 MCHC (33.0 - 37.0 g/dL) 33.4 RDW (11.5 - 14.5 %) 13.1 Plt Count (150 - 400 x10 3/uL) 254 MPV (7.0 - 9.0 fL) 10.5 H Neut % (Auto) (56.0 - 77.0 %) 84.5 H Lymph % (Auto) (14.0 - 32.0 %) 6.5 L [place] % (Auto) (4.8 - 9.0 %) 8.1 Eos % (Auto) (0.3 - 3.7 %) 0.1 L Baso % (Auto) (0.0 - 2.0 %) 0.1 Neut # (Auto) (2.0 - 7.6 x10 3/uL) 12.28 H Lymph # (Auto) (1.0 - 3.8 x10 3/uL) 0.94 L [place] # (Auto) (0.1 - 0.8 x10 3/uL) 1.17 H Eos # (Auto) (0.0 - 0.2 x10 3/uL) 0.01 Baso # (Auto) (0.0 - 0.2 x10 3/uL) 0.01 Abs Immat Gran (auto) (0.00 - 0.03 x10 3/uL) 0.10 H Immature Gran % (0.0 - 2.0 %) 0.7 Nucleated RBC % (0 - 0 %) 0.0 Nucleated RBCs # (Man) (0.0 - 0.1 x10 3/uL) 0.00 04/28 04/28 04/28 04/28 1449 1346 1054 0908 Chemistry Sodium (134 - 147 mEq/L) 135 Potassium (3.4 - 5.0 mEq/L) 4.5 Chloride (100 - 108 mEq/L) 110 H Carbon Dioxide (21 - 33 mEq/l) 19 L Anion Gap (0 - 20) 10 BUN (7 - 25 mg/dL) 26 H Creatinine (0.6 - 1.3 mg/dL) 1.2 Glomerular Filtr Rate (90 - 95) 70.5 L Glucose (77 - 141 mg/dL) 186 H POC Glucose (70 - 110 MG/DL) 144 H 149 H 135 H Calcium (8.0 - 10.5 mg/dL) 8.7 Ionized Calcium [place] (1.09 - 1.30 MMOL/L) 1.13 Magnesium (1.6 - 2.6 mg/dL) 2.19 Diagnosis, Assessment Plan Free Text A P: CABG x5 on 04/27/2023 Postop hypoxemia respiratory insufficiency Generalized weakness Impaired mobility, gait, balance and endurance Postop pain Leukocytosis Diabetes with hyperglycemia Nonhealing left leg ulcer Plan: Continue PT/OT Out of bed to chair Work on ADLs, strength, bed mobility, transfers, gait DVT prophylaxis on SCD Strict fall and safety precautions Monitor p.o. intake and nutrition Strict decubitus precautions Monitor labs Sternal precautions Walked 190 feet today. Supervision with transfers Still has 1 Linus drain in Plan for home early next week Rehab attestation: . at 0501 RPT #:[id number] END OF REPORT [facility] 2023-04-29 06:57:00 [facility] ([facility]) Cardiology Progress Note REPORT#:[id number] REPORT STATUS: Signed REPORT INITIALIZATION DATE:04/29/23 TIME: 656 PATIENT: JONG RIVAS UNIT #: [id number] ROOM/BED: [facility] : 67 AGE: 58 SEX: M ATTEND: Domenic Rainey MD ADM AUTHOR: Noemí Nieto MD REPT SERVICE DT/TIME: 04/29/23 0657 * ALL edits or amendments must be made on the electronic/computer document * Objective General VS/I O: 24 hour I O ending at 0700: 11/10 0700 04/28 1900 Intake Total 997.00 860.00 Output Total 615 625 Balance 382.00 235.00 Intake, IV 757.00 320.00 Intake, Oral 240 540 Output, Chest 80 205 Tube Drainage Output, Urine 535 420 Patient 109.8 kg Weight Weight Standing scale Measurement Method Vital Signs: Date Time Temp Pulse Resp B/P B/P Pulse O2 O2 Flow FiO2 Mean Ox Delivery Rate 04/29 0557 79 22 93 04/29 0530 85 34 94 04/29 0500 83 23 133/67 93 96 04/29 0437 84 17 96 04/29 0431 95 Nasal 2 cannula 04/29 0430 85 14 96 04/29 0400 81 22 130/67 92 97 04/29 0330 82 22 97 04/29 0300 81 15 128/68 91 97 04/29 0252 80 18 96 04/29 0230 81 24 84 04/29 0200 86 125/72 93 87 04/29 0149 86 28 109/68 85 96 04/29 0148 85 124/70 92 97 04/29 0130 85 31 99 04/29 0100 85 28 98 04/29 0030 91 24 98 04/29 0000 90 28 168/81 116 97 04/28 2330 90 25 98 04/28 2301 90 28 148/76 107 96 04/28 2300 90 34 160/83 113 97 04/28 2244 90 22 183/86 123 97 04/28 2230 91 26 97 04/28 2216 91 25 98 04/28 2200 91 26 179/84 120 97 04/28 2130 94 30 98 04/28 2100 102 32 164/82 113 95 04/287 93 Nasal 2 28 cannula 04/28 2030 109 31 04/28 2003 101 33 149/73 104 97 04/28 2000 99.4 04/28 2000 99 29 95 04/28 1930 90 28 97 04/28 1900 90 29 152/73 104 97 04/28 1130 79 29 99/62 76 95 04/28 1100 103/62 77 04/28 1100 98.8 75 9 114/54 69 96 04/28 1030 96/61 74 04/28 1030 98.6 71 27 100/50 63 94 04/28 1004 74 37 106/52 66 95 04/28 1000 75 11/09 0930 99.0 70 18 106/51 66 95 04/28 900 99.0 73 9 101/52 65 95 04/28 800 94/57 69 04/28 800 99.0 69 8 106/53 67 95 04/28 730 98.8 67 23 97/48 61 95 04/28 700 83/48 60 04/28 700 98.6 65 15 97/49 62 95 PATIENT WEIGHT: Weight (lb): 242 Weight (oz): 1.08 Weight (kg): 109.800 Medications: Active Meds + DC'd Last 24 Hrs Ipratropium [place] (ATROVENT) 500 MCG RTQ2H PRN PRN INH Cyanocobalamin (Vitamin B-12 500 mcg tab) 500 MCG DAILY PO Ferrous Sulfate (FERROUS SULFATE) 325 MG DAILY PO Bisacodyl (DULCOLAX) 10 MG ONCE PRN RECTAL Magnesium Hydroxide (MILK OF MAGNESIA) 30 ML ONCE PRN PO Furosemide (LASIX 40 mg/4 mL INJECTION) 40 MG ONCE ONE IV Hydralazine HCl (APRESOLINE) 5 MG ONCE ONE IV (DC) Atorvastatin Calcium (LIPITOR) 40 MG 2100 PO Dextrose/Water (DEXTROSE 10% IN WATER) 250 ML ASDIR PRN IV (CKD) Insulin Human Regular (HumuLIN R) 100 UNIT ASDIR IV (CKD) Sodium Chloride (SODIUM CHLORIDE 0.9%) 99 ML Alteplase, Recombinant (CATHFLO ACTIVASE) 2 MG ONCE ONE I-CATHETER (DC) Benzonatate (TESSALON PERLE) 200 MG Q8H PRN PRN PO Sterile Water (WATER FOR INJECTION) 2.2 ML ASDIR PRN IV Calcium Gluconate (Calcium Gluconate 1 GM/NS 50 mL (B2)) 50 ML ONCE ONE IV (DC) Albumin Human (ALBUMINAR 5% 12.5GM/250ML) 250 ML ONCE ONE IV (DC) Piperacillin Sod/Tazobactam Sod (ZOSYN 3.375GM) 3.375 GM Q8H IV Sodium Chloride (SODIUM CHLORIDE 0.9% 100 ML) 100 ML Clopidogrel Bisulfate (Plavix) 75 MG DAILY PO Polyethylene Glycol (MIRALAX) 17 GM DAILY PO Acetaminophen (OFIRMEV 10MG/ML) 100 ML Q6H IV (DC) Docusate Sodium (COLACE) 100 MG BID PO Metoprolol Tartrate (LOPRESSOR) 12.5 MG Q12HR PO Sennosides (Senna Lax 8.6 MG TABLET) 17.2 MG BEDTIME PO Aspirin (ASPIRIN) 81 MG DAILY PO Ipratropium [place] (ATROVENT) 500 MCG RTQ4H INH Pantoprazole (PROTONIX) 40 MG DAILY@0600 PO Amiodarone HCl (CORDARONE) 200 MG TID PO Acetaminophen (TYLENOL) 650 MG Q4H PRN PRN PO Acetaminophen (TYLENOL) 650 MG Q4H PRN PRN RECTAL Albumin Human (ALBUMINAR 25%) 25 GM ASDIR PRN IV (DC) Calcium Chloride (CALCIUM CHLORIDE) 1 GM ASDIR PRN IV Dextrose/Water (DEXTROSE 10% IN WATER) 125 ML ASDIR PRN IV (CKD) Dextrose/Water (DEXTROSE 10% IN WATER) 250 ML ASDIR PRN IV (CKD) Epinephrine (ADRENALIN CHLORIDE) 4 MG ASDIR IV Dextrose/Water (DEXTROSE 5% WATER) 246 ML Glucagon (GLUCAGON) 1 MG ASDIR PRN IM Insulin Human Regular (HumuLIN R) 100 UNIT ASDIR IV (CKD) Sodium Chloride (SODIUM CHLORIDE 0.9%) 99 ML Magnesium Sulfate (MAGNESIUM SULFATE 4GM/SWFI 100ML) 100 ML ASDIR PRN IV Magnesium Sulfate (MAGNESIUM SULFATE 2GM/SWFI 50ML) 50 ML ASDIR PRN IV Magnesium Sulfate/Dextrose (MAGNESIUM SULFATE 1GM/D5W 100ML) 100 ML ASDIR PRN IV Nitroglycerin/Dextrose (NITROGLYCERIN 50,000MCG/D5W 250ML) 250 ML ASDIR IV Norepinephrine Bitartrate (NOREPINEPHRINE 8 MG/NS 250 ML) 250 ML TITRATE IV Ondansetron HCl (ZOFRAN) 4 MG Q6H PRN PRN IV Oxycodone HCl (ROXICODONE) 5 MG Q4H PRN PRN PO Oxycodone HCl (ROXICODONE) 10 MG Q4H PRN PRN PO Potassium Chloride (KCL 20MEQ/SWFI 100ML) 100 ML ASDIR PRN IV Sodium Bicarbonate (SODIUM BICARBONATE) 50 MEQ ASDIR PRN IV Sodium Chloride (SODIUM CHLORIDE 0.9%) 1,000 ML .Q20H IV Sodium Chloride (SODIUM CHLORIDE 0.9%) 250 ML Q24H IV Doxycycline Hyclate (VIBRAMYCIN) 100 MG Q12H IV Sodium Chloride (SODIUM CHLORIDE 0.9% 100 ML) 100 ML Silver Sulfadiazine (SILVADENE 1% 50 GM CREAM) 1 APPLIC Q12HR TOPICAL Cefepime HCl (MAXIPIME) 1 GM Q6H IV (DC) Sodium Chloride (SODIUM CHLORIDE) 10 ML Metronidazole (FLAGYL) 500 MG Q8H PO (DC) Gabapentin (NEURONTIN) 200 MG TID PO Results Findings/Data: Laboratory Tests 04/29 04/29 04/29 04/28 0624 0228 0026 2131 Chemistry Sodium (134 - 147 mEq/L) 135 Potassium (3.4 - 5.0 mEq/L) 4.2 Chloride (100 - 108 mEq/L) 108 Carbon Dioxide (21 - 33 mEq/l) 21 Anion Gap (0 - 20) 11 BUN (7 - 25 mg/dL) 24 Creatinine (0.6 - 1.3 mg/dL) 1.1 Glomerular Filtr Rate (90 - 95) 78.3 L Glucose (77 - 141 mg/dL) 241 H POC Glucose (70 - 110 MG/DL) 199 H 217 H 253 H Calcium (8.0 - 10.5 mg/dL) 8.9 Magnesium (1.6 - 2.6 mg/dL) 2.23 Total Bilirubin (0.0 - 1.0 mg/dL) 0.50 Direct Bilirubin (0.1 - 0.3 MG/DL) 0.30 Indirect Bilirubin (MG/DL) 0.20 AST (8 - 34 IUnit/L) 25 ALT (10 - 49 IUnit/L) 22 Total Alk Phosphatase (20 - 125 IUnit/L) 63 Total Protein (6.4 - 8.2 g/dL) 6.6 Albumin (3.4 - 5.0 g/dL) 3.50 04/28 04/28 04/28 04/28 1449 1346 1054 0908 Chemistry Sodium (134 - 147 mEq/L) 135 Potassium (3.4 - 5.0 mEq/L) 4.5 Chloride (100 - 108 mEq/L) 110 H Carbon Dioxide (21 - 33 mEq/l) 19 L Anion Gap (0 - 20) 10 BUN (7 - 25 mg/dL) 26 H Creatinine (0.6 - 1.3 mg/dL) 1.2 Glomerular Filtr Rate (90 - 95) 70.5 L Glucose (77 - 141 mg/dL) 186 H POC Glucose (70 - 110 MG/DL) 144 H 149 H 135 H Calcium (8.0 - 10.5 mg/dL) 8.7 Ionized Calcium [place] (1.09 - 1.30 MMOL/L) 1.13 Magnesium (1.6 - 2.6 mg/dL) 2.19 Laboratory Tests 04/29 0228 Hematology WBC (4.5 - 11.0 x10 3/uL) 14.5 H RBC (4.00 - 5.60 x10 6/uL) 3.33 L Hgb (12.5 - 16.9 g/dL) 10.2 L Hct (37.5 - 50.7 %) 30.5 L MCV (81.0 - 99.0 fL) 91.6 MCH (27.0 - 33.0 pg) 30.6 MCHC (33.0 - 37.0 g/dL) 33.4 RDW (11.5 - 14.5 %) 13.1 Plt Count (150 - 400 x10 3/uL) 254 MPV (7.0 - 9.0 fL) 10.5 H Neut % (Auto) (56.0 - 77.0 %) 84.5 H Lymph % (Auto) (14.0 - 32.0 %) 6.5 L [place] % (Auto) (4.8 - 9.0 %) 8.1 Eos % (Auto) (0.3 - 3.7 %) 0.1 L Baso % (Auto) (0.0 - 2.0 %) 0.1 Neut # (Auto) (2.0 - 7.6 x10 3/uL) 12.28 H Lymph # (Auto) (1.0 - 3.8 x10 3/uL) 0.94 L [place] # (Auto) (0.1 - 0.8 x10 3/uL) 1.17 H Eos # (Auto) (0.0 - 0.2 x10 3/uL) 0.01 Baso # (Auto) (0.0 - 0.2 x10 3/uL) 0.01 Abs Immat Gran (auto) (0.00 - 0.03 x10 3/uL) 0.10 H Immature Gran % (0.0 - 2.0 %) 0.7 Nucleated RBC % (0 - 0 %) 0.0 Nucleated RBCs # (Man) (0.0 - 0.1 x10 3/uL) 0.00 Laboratory Tests 04/29 04/28 0228 1449 Chemistry Magnesium (1.6 - 2.6 mg/dL) 2.23 2.19 Radiology data: Recent Impressions: RADIOLOGY - XR CHEST 1 V 04/28 1716 Report Impression - Status: SIGNED Entered: 04/28/2023 5742 IMPRESSION: Improved mild bilateral interstitial infiltrates. Trace effusions. Impression By: Zane - Mimi Powers M.D. Free Text Obj Notes Free Text Obj Notes: GENERAL: Sitting in bedside chair, HEENT: Normocephalic, atraumatic NECK: JVP is raised LUNGS: Equal air entry bilaterally, normal vesicular breathing HEART: regular rate, normal S1 and S2, No murmurs, ABDOMEN: Soft, lax, non-tender, non-distended PERIPHERAL PULSES: 2+ dorsalis pedis pulses, left foot covered with dressing EXTREMITIES: +1 edema Diagnosis, Assessment Plan Consultants: cardiology, cardiovascular surgery, pulmonary Free Text DxA P Notes Free Text DxA P Notes: #NSTEMI #Severe multivessel CAD s/p CABG x6 with RICHARDS to LAD, sequential diagonal, SVG to ramus, SVG to OM, SVG to PDA, SVG to RPL, and amputation of the left atrial appendage. #Left foot diabetic foot infection with osteomyelitis S/P successful left foot fifth proximal phalanx and fifth metatarsal head resection on 04/25- on IV antibiotics per ID #Urinary tract infection #Hyperlipidemia #Diabetes mellitus-A1c 8.3 #Essential hypertension #Right lung cavitary lesion PLAN: -CABG work-up per CT surgery versus high risk PCI. -We will get arterial Doppler bilateral lower extremities to evaluate for PAD given left diabetic foot infection. -IV antibiotics per ID -Continue aspirin 81 mg daily. Increase atorvastatin from 40 mg to 80 mg nightly. Start metoprolol tartrate 12.5 mg twice daily. -Continue lisinopril 10 mg daily. 04/21/2023 -Patient seen and examined. Telemetry reviewed. Remains in sinus rhythm. Arterial duplex yesterday showed no evidence of any hemodynamically significant stenosis in the bilateral lower extremity arteries. LDL 92 mg/dL. Atorvastatin increased to 80 mg nightly yesterday. Continue aspirin 81 mg daily, lisinopril 10 mg daily, metoprolol tartrate 12.5 mg twice daily. ID on board for osteomyelitis. CT surgery on board for consideration of CABG. Timing will depend on treatment of foot infection. 04/22/2023: -Patient seen and examined. Telemetry reviewed. Remains in normal sinus rhythm. Increase metoprolol to tartrate to 25 mg twice daily. ID on board for osteomyelitis. Plan for CABG per CT surgery when medically stable and infection improved/resolved. Continue aspirin, high intensity atorvastatin, and lisinopril 10 mg daily. 04/25/2023: -Patient seen and examined. Telemetry reviewed. Remains in normal sinus rhythm. Underwent successful left foot fifth proximal phalanx and fifth metatarsal head resection yesterday. 6 weeks of IV antibiotic treatment plan per ID for osteomyelitis. Planning for CABG per CT surgery. No chest pain or shortness of breath currently. Continue aspirin 81 mg daily, atorvastatin 80 mg nightly, lisinopril 10 mg daily, and metoprolol tartrate 25 mg p.o. every 12 hourly. 04/26/2023: -Patient seen and examined. Telemetry reviewed. Remains in normal sinus rhythm. Plan for CABG likely next week per CT surgery. On IV antibiotics per ID. Denies any chest pain or shortness of breath. Continue aspirin 81 mg daily, atorvastatin 80 mg nightly, lisinopril 10 mg daily, and metoprolol tartrate 25 mg p.o. every 12 hourly. 04/27/2023: Patient seen and examined. Telemetry reviewed. In sinus rhythm. Plan for CABG next week per CT surgery. On IV cefepime and Flagyl per ID. Continue aspirin 81 mg daily, atorvastatin 80 mg nightly, lisinopril 10 mg daily, and metoprolol tartrate 25 mg p.o. every 12 hourly. 04/28/2023-postoperative day 1: -Patient seen and examined in CVICU. Telemetry reviewed. Remains in sinus rhythm. Underwent successful CABG x6 yesterday and amputation of left atrial appendage. Extubated successfully. Currently off pressors. Has a mediastinal and left chest tube with minimal output this morning. Not on any pressors. Advanced heart failure team consulted. Continue aspirin 81 mg daily, Plavix 75 mg daily, metoprolol tartrate 12.5 mg every 12 hourly, high intensity atorvastatin, and amiodarone 200 mg 3 times daily. 04/29/2023-postoperative day 2: -Patient seen and examined. Telemetry reviewed. Remains in sinus rhythm with occasional epicardial pacing noted yesterday evening. Appears volume overloaded today. Ported shortness of breath overnight. We will give Lasix 40 mg IV once. Advanced heart failure team on board. Continue aspirin 81 mg daily, Plavix 75 mg daily, metoprolol tartrate 12.5 mg every 12 hourly, high intensity atorvastatin and amiodarone 200 mg 3 times daily. at 0700 at 0137 RPT #:[id number] END OF REPORT [facility] 2023-04-29 06:09:00 [facility] Cardiothoracic Surgery Prog REPORT#:[id number] REPORT STATUS: Signed REPORT INITIALIZATION DATE:04/29/23 TIME: 608 PATIENT: JONG RIVAS UNIT #: [id number] ROOM/BED: [place] [id number] : 66 AGE: 58 SEX: M ATTEND: Domenic Rainey MD ADM AUTHOR: Viky Mclaughlin Physic REPT SERVICE DT/TIME: 04/29/23 0609 * ALL edits or amendments must be made on the electronic/computer document * General Post-op: day 2 Status post: 04/27/23 CABG x 6 (RICHARDS-LAD, Seq-Diag, SVG-ramus, SVG-OM, SVG-PDA, SVG-ALDAIR) EVH (RGSV, LGSV) ALAA PP Subjective Chief complaint: Postop CABG Currently no complaints, resting comfortable Review of Systems Constitutional: Reports: fatigue. Skin: Denies: bruising, contusion, diaphoresis, ecchymosis. Allergy/Immun: Denies: allergic reaction, itching, rhinorrhea, sneezing. Eyes: Denies: redness, discharge, visual loss/blurred. ENT: Denies: throat pain, throat swelling, tongue pain, tongue swelling, toothache. Respiratory: Reports: MENDES (dyspnea on exertion). Denies: SOB, wheezing. Cardiovascular: Denies: chest pain, edema, orthopnea, palpitations. GI: Denies: abdominal pain, nausea, vomiting. : Denies: dysuria, flank pain. Musculoskeletal: Denies: extremity pain, extremity swelling. Psych: Denies: agitation, anxiety, auditory hallucination, visual hallucination. All systems rev neg: except as marked Objective General VS/I O Last Documented: Result Date Time Pulse Ox 93 04/29 557 Pulse 79 04/29 557 Resp 22 04/29 557 B/P 133/67 04/29 0500 B/P Mean 93 04/29 0500 O2 Delivery Nasal cannula 04/29 431 O2 Flow Rate 2 04/29 431 FiO2 28 04/287 Temp 99.4 04/28 2000 24 hour I O ending at 0700: 04/29 0700 04/28 1900 Intake Total 997.00 860.00 Output Total 615 625 Balance 382.00 235.00 Intake, IV 757.00 320.00 Intake, Oral 240 540 Output, Chest 80 205 Tube Drainage Output, Urine 535 420 Patient 109.8 kg Weight Weight Standing scale Measurement Method PATIENT WEIGHT: Weight (lb): 242 Weight (oz): 1.08 Weight (kg): 109.800 Physical Exam General appearance: alert, awake, oriented Wound/incision: Location: Left foot ulcer HEENT: anicteric, mucosal membranes moist, pupils reactive to light Neck: full range of motion, non-tender Cardiovascular: normal heart sounds, regular rate rhythm Respiratory: aerating well, clear to auscultation, symmetric expansion, no distress Abdomen: soft, non-tender Genitourinary: no bladder distention, no flank pain Extremities: dry, moves all, normal capillary refill, normal temperature Musculoskeletal: full range of motion, painless range of motion 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 Patient transferred from [facility], referred to us from Dr. Forde for acute coronary syndrome, unstable angina, ischemic heart disease status post coronary angiogram, with findings of multivessel CAD, EF 50%. Upon further chart review patient found to have chronic cavitary lung lesion on CT chest pending QuantiFERON, left lower extremity diabetic foot ulcer concerning for osteomyelitis MRI done at [place] and will upload imaging, foot wound culture with pseudomonas, UTI with urine culture Pseudomonas treated with cefepime. Patient reports dyspnea on exertion and mild chest pain x1 year. 04/18/23: Coronary angiogram done at [facility] Left main patent LAD with high-grade and tortuous calcified lesion just after the first diagonal estimated 95% stenosis first diagonal branch with severe calcified disease 99% Ramus 90 to 95% stenosis, left circumflex artery 99% proximal stenosis OM branches severe disease as well. RCA 90%. LVEDP 11 mmHg and angiography demonstrated preserved LV systolic function, EF 50%. Inferior wall demonstrated mild hypokinesis. 1-2+ MR on LV angio. RICHARDS patent Carotid angiogram, patent carotids Assessment: CAD, severe multivessel Left foot nonhealing foot ulcer Chronic cavitary lesion noted on CT chest UTI Pseudomonas 2023 Patient seen and evaluated by Dr. Rainey CABG eval underway -Consult pulmonology, cardiology, wound care -Lovenox DVT prophylaxis Continue supportive care Further recommendations to follow 04/21/2023 CABG eval underway Patient sitting up in bed, room air, no distress. No complaints Patient with multiple complex medical issues ongoing. Timing of major CV surgery pending medical optimization. We will discuss patient at high risk CV Case conference on Tuesday. -Continue supportive care Seen and examined by Dr. Rainey 04/23/2023 CABG eval underway Patient sitting up in bed, room air, no distress. No complaints Patient with multiple complex medical issues ongoing. Timing of major CV surgery pending medical optimization. Left foot MRI complete with fifth MTP effusion/possible septic arthritis with osteomyelitis changes, no drainable soft tissue abscess. -Amputation left fifth toe and metatarsal scheduled by podiatry for tomorrow -Blood cultures 04/21/2023 no growth after 24-hour -UA negative -Lovenox DVT prophylaxis Continue supportive care Further recommendations to follow 04/24/2023 CABG eval underway Patient sitting up in bed, room air, no distress. No complaints -Amputation left fifth toe and metatarsal scheduled by podiatry for today -Blood cultures 04/21/2023 no growth after 48-hour -follow tissue culture Continue supportive care Further recommendations to follow 04/25/2023 CABG eval underway, plan for OR likely next week to allow patient some time to recover from amputation. Patient sitting up in bed, room air, no distress. No complaints S/P Amputation left fifth toe and metatarsal -Blood cultures 04/21/2023 no growth after 72-hour Encourage OOBTC, IS, PT/OT Continue supportive care Further recommendations to follow 04/26/2023 CABG eval underway, plan for OR likely next week to allow patient some time to recover from amputation. Patient sitting up in bed, room air, no distress. No complaints S/P Amputation left fifth toe and metatarsal -Blood cultures 04/21/2023 no growth after 72-hour Encourage OOBTC, IS, PT/OT Continue supportive care Further recommendations to follow 04/27/23 Patient resting comfortable. Denies complaints AAO x 3 respiratory spi: on room air. Remains sinus rhythm ID following - CABG after 04/27/23 completed ABX Carotid Dopplers showed less than 50% stenosis. Vein mapping complete CT of the chest completed Consider surgery this afternoon. Ryan brown NPO. Patient seen and Examined with Dr. Rainey. STS score calculated. 0.8% Coronary bypass graft surgery was discussed with the patient. The risk of the operation including the V score, risk of bleeding, infection, , heart attack, stroke, prolonged ICU stay, renal failure, dialysis, need for long-term rehabilitation etc. was discussed with the patient. The patient's questions were answered and the patient agreed to proceed with surgery. 04/27/23 1. Coronary artery bypass graft surgery x5 (RICHARDS to LAD, sequential to diagonal, saphenous vein to first marginal, saphenous vein to second marginal, saphenous vein to PDA). 2. Amputation of left atrial appendage. 3. Posterior pericardiotomy. 4. Endoscopic vein harvest (left greater saphenous vein). 04/28/23 On room air. POD 1 AAOx3 Patient reports pain controlled. Respiratory: on room air. Encourage IS, Deep Breathing, CXR reviewed, CT outputs- Re-access after walking. Cardiac: Remains sinus rhythm, pacing wires on standby GI: Tolerating diet, passing gas. Continue Bowel regimen : Walton in place. UO:650 Continue PT/OT Disposition: Patient lives alone. We will consult rehab. Patient DVT prophylaxis, SCDs in place Labs reveiwed- replace electrolytes as needed Patient seen and examined by Dr. Rainey. Plan of care discussed with multidisciplinary team Continue supportive care. 04/29/23 On room air. POD 2 AAOx3 Patient reports pain controlled. Respiratory: on room air. Encourage IS, Deep Breathing, CXR reviewed, Cardiac: Remains sinus rhythm, pacing wires on standby GI: Tolerating diet, passing gas. Continue Bowel regimen : Walton in place. Will DC Walton later today UO:580, 40 Lasix ordered today. Continue PT/OT out of bed walking with PT today. Disposition: Patient lives alone. We will consult rehab. Patient DVT prophylaxis, SCDs in place Labs reveiwed- replace electrolytes as needed Plan of care discussed with multidisciplinary team Continue supportive care. Consultants: cardiology, cardiovascular surgery, pulmonary at 1111 at 1724 RPT #:[id number] END OF REPORT [facility] 2023-04-29 02:41:00 [id number] [place] [address] PATIENT NAME: JONG RIVAS ADMIT DATE: 04/19/23 ACCOUNT NO: [id number] ROOM NO: 334 AGE: 58 REPORT TYPE: eELECTROCARDIOGRAM REPORT SEX: M ADMITTING PHYSICIAN:Domenic Rainey MD ATTENDING PHYSICIAN:Domenic Rainey MD Order: [id number] Test Reason : Cardiac Surgery Post Op Test Date/Time Stamp: TueApr 29 2023 02:41:43 Blood Pressure : / mmHG Vent. Rate : 084 BPM Atrial Rate : 084 BPM P-R Int : 166 ms QRS Dur : 128 ms QT Int : 388 ms P-R-T Axes : 048 -17 041 degrees QTc Int : 458 ms Normal sinus rhythm Nonspecific intraventricular block Abnormal ECG When compared with ECG of 28-APR-2023 04:12, Significant changes have occurred Confirmed by YOLANDA LOPEZ RAKESH ([id number]) on 05/19/2023 5:04:22 PM Referred By: Domenic Rainey Confirmed by:CHARISSA GUERRERO MD at 1704 PATIENT NAME: JONG RIVAS [facility] 2023-04-28 18:26:00 [facility] ([facility]) Endocrinology Progress Note REPORT#:[id number] REPORT STATUS: Signed REPORT INITIALIZATION DATE:04/28/23 TIME: 1825 PATIENT: JONG RIVAS UNIT #: [id number] ROOM/BED: [place] [address] : 67 AGE: 58 SEX: M ATTEND: Domenic Rainey MD ADM AUTHOR: Vlad Lay MD REPT SERVICE DT/TIME: 04/28/231825 * ALL edits or amendments must be made on the electronic/computer document * Subjective Patient reports: no complaints Objective General VS: Last Documented: Result Date Time Pulse Ox 95 04/28 1130 B/P 99/62 04/28 1130 B/P Mean 76 04/28 1130 Pulse 79 04/28 1130 Resp 29 04/28 1130 Temp 37.1 04/28 1100 FiO2 28 04/28 418 O2 Delivery Nasal cannula 04/28 418 O2 Flow Rate 2 04/28 418 PATIENT WEIGHT: Weight (lb): 213 Weight (oz): 10.05 Weight (kg): 96.900 Medications: Active Meds + DC'd Last 24 Hrs Ipratropium [place] (ATROVENT) 500 MCG RTQ2H PRN PRN INH Cyanocobalamin (Vitamin B-12 500 mcg tab) 500 MCG DAILY PO Ferrous Sulfate (FERROUS SULFATE) 325 MG DAILY PO Bisacodyl (DULCOLAX) 10 MG ONCE PRN RECTAL Magnesium Hydroxide (MILK OF MAGNESIA) 30 ML ONCE PRN PO Atorvastatin Calcium (LIPITOR) 40 MG 2100 PO Alteplase, Recombinant (CATHFLO ACTIVASE) 2 MG ONCE ONE I-CATHETER (DC) Benzonatate (TESSALON PERLE) 200 MG Q8H PRN PRN PO Sterile Water (WATER FOR INJECTION) 2.2 ML ASDIR PRN IV Calcium Gluconate (Calcium Gluconate 1 GM/NS 50 mL (B2)) 50 ML ONCE ONE IV (DC) Albumin Human (ALBUMINAR 5% 12.5GM/250ML) 250 ML ONCE ONE IV (DC) Piperacillin Sod/Tazobactam Sod (ZOSYN 3.375GM) 3.375 GM Q8H IV Sodium Chloride (SODIUM CHLORIDE 0.9% 100 ML) 100 ML Clopidogrel Bisulfate (Plavix) 75 MG DAILY PO Polyethylene Glycol (MIRALAX) 17 GM DAILY PO Vancomycin HCl (VANCOMYCIN HCL) 1,500 MG PREOP ONCALL IV (DC) Sodium Chloride (SODIUM CHLORIDE 0.9%) 500 ML Albumin Human (ALBUMINAR 5% 12.5GM/250ML) 250 ML ONCE ONE IV (DC) Acetaminophen (OFIRMEV 10MG/ML) 100 ML Q6H IV (DC) Docusate Sodium (COLACE) 100 MG BID PO Metoprolol Tartrate (LOPRESSOR) 12.5 MG Q12HR PO Sennosides (Senna Lax 8.6 MG TABLET) 17.2 MG BEDTIME PO Aspirin (ASPIRIN) 81 MG DAILY PO Albumin Human (ALBUMINAR 5% 12.5GM/250ML) 250 ML ONCE ONE IV (DC) Fentanyl Citrate (SUBLIMAZE) 25 MCG ONCE ONE IV (DC) Ipratropium [place] (ATROVENT) 500 MCG RTQ4H INH Pantoprazole (PROTONIX) 40 MG DAILY@0600 PO Amiodarone HCl (CORDARONE) 200 MG TID PO Acetaminophen (TYLENOL) 650 MG Q4H PRN PRN PO Acetaminophen (TYLENOL) 650 MG Q4H PRN PRN RECTAL Albumin Human (ALBUMINAR 25%) 25 GM ASDIR PRN IV (DC) Calcium Chloride (CALCIUM CHLORIDE) 1 GM ASDIR PRN IV Dextrose/Water (DEXTROSE 10% IN WATER) 125 ML ASDIR PRN IV (CKD) Dextrose/Water (DEXTROSE 10% IN WATER) 250 ML ASDIR PRN IV (CKD) Epinephrine (ADRENALIN CHLORIDE) 4 MG ASDIR IV Dextrose/Water (DEXTROSE 5% WATER) 246 ML Glucagon (GLUCAGON) 1 MG ASDIR PRN IM Insulin Human Regular (HumuLIN R) 100 UNIT ASDIR IV (CKD) Sodium Chloride (SODIUM CHLORIDE 0.9%) 99 ML Magnesium Sulfate (MAGNESIUM SULFATE 4GM/SWFI 100ML) 100 ML ASDIR PRN IV Magnesium Sulfate (MAGNESIUM SULFATE 2GM/SWFI 50ML) 50 ML ASDIR PRN IV Magnesium Sulfate/Dextrose (MAGNESIUM SULFATE 1GM/D5W 100ML) 100 ML ASDIR PRN IV Nitroglycerin/Dextrose (NITROGLYCERIN 50,000MCG/D5W 250ML) 250 ML ASDIR IV Norepinephrine Bitartrate (NOREPINEPHRINE 8 MG/NS 250 ML) 250 ML TITRATE IV Ondansetron HCl (ZOFRAN) 4 MG Q6H PRN PRN IV Oxycodone HCl (ROXICODONE) 5 MG Q4H PRN PRN PO Oxycodone HCl (ROXICODONE) 10 MG Q4H PRN PRN PO Potassium Chloride (KCL 20MEQ/SWFI 100ML) 100 ML ASDIR PRN IV Sodium Bicarbonate (SODIUM BICARBONATE) 50 MEQ ASDIR PRN IV Sodium Chloride (SODIUM CHLORIDE 0.9%) 1,000 ML .Q20H IV Sodium Chloride (SODIUM CHLORIDE 0.9%) 250 ML Q24H IV Doxycycline Hyclate (VIBRAMYCIN) 100 MG Q12H IV Sodium Chloride (SODIUM CHLORIDE 0.9% 100 ML) 100 ML Silver Sulfadiazine (SILVADENE 1% 50 GM CREAM) 1 APPLIC Q12HR TOPICAL Cefepime HCl (MAXIPIME) 1 GM Q6H IV (DC) Sodium Chloride (SODIUM CHLORIDE) 10 ML Metronidazole (FLAGYL) 500 MG Q8H PO (DC) Gabapentin (NEURONTIN) 200 MG TID PO Physical Exam General appearance: alert, awake Diagnosis, Assessment Plan Hospital course to date: Laboratory Tests: 04/28 04/28 04/28 04/28 04/28 1449 1346 1054 0908 0626 Chemistry Sodium (134 - 147 mEq/L) 135 Potassium (3.4 - 5.0 mEq/L) 4.5 Chloride (100 - 108 mEq/L) 110 H Carbon Dioxide (21 - 33 mEq/l) 19 L Anion Gap (0 - 20) 10 BUN (7 - 25 mg/dL) 26 H Creatinine (0.6 - 1.3 mg/dL) 1.2 Glomerular Filtr Rate (90 - 95) 70.5 L Glucose (77 - 141 mg/dL) 186 H POC Glucose (70 - 110 MG/DL) 144 H 149 H 135 H 140 H Calcium (8.0 - 10.5 mg/dL) 8.7 Ionized Calcium [place] (1.09 - 1.30 MMOL/L) 1.13 Magnesium (1.6 - 2.6 mg/dL) 2.19 04/28 04/28 04/28 04/27 0211 0201 0104 2233 Blood Gas Puncture Site Art Line Art Line O2 Saturation (90 - 100 %) 94.0 97.3 ABG pH (7.35 - 7.45) 7.365 7.359 ABG pCO2 (35.0 - 45 mmHg) 34.0 L 34.7 L ABG pO2 (80 - 100.0 mmHg) 73.3 L 96.9 ABG HCO3 (22.0 - 26.0 MMOL/L) 19.4 L 19.6 L ABG Total CO2 20.5 20.7 ABG Base Excess (-4.0 - 4.0 MMOL/L) -5.9 L -5.8 L ABG Hematocrit (37.5 - 50.7 %) 32 L 32 L ABG Hemoglobin (12.5 - 16.9 G/DL) 10.9 L 10.9 L Sodium (134 - 147 mmol/L) 140 140 Potassium (3.4 - 5.0 mmol/L) 4.7 4.8 Chloride (100 - 108 mmol/L) 110 H 110 H Ionized Calcium (1.12 - 1.32 MMOL/L) 1.24 1.20 Lactic Acid (0.9 - 1.7 mmol/l) 0.5 L 0.9 Temperature (F) 99 98.6 O2 Delivery Device Cannula Cannula Chemistry Sodium (134 - 147 mEq/L) 139 Potassium (3.4 - 5.0 mEq/L) 4.6 Chloride (100 - 108 mEq/L) 111 H Carbon Dioxide (21 - 33 mEq/l) 21 Anion Gap (0 - 20) 12 BUN (7 - 25 mg/dL) 25 Creatinine (0.6 - 1.3 mg/dL) 0.9 POC Creatinine (0.8 - 1.3 mg/dL) 0.8 1.0 Glomerular Filtr Rate (90 - 95) 99.6 H Glucose (77 - 141 mg/dL) 142 H POC Glucose (70 - 110 MG/DL) 121 H POC Glucose (mg/dL) (70 - 110 MG/DL) 138 H 150 H Calcium (8.0 - 10.5 mg/dL) 8.5 Magnesium (1.6 - 2.6 mg/dL) 1.84 Total Bilirubin (0.0 - 1.0 mg/dL) 0.40 Direct Bilirubin (0.1 - 0.3 MG/DL) 0.20 Indirect Bilirubin (MG/DL) 0.20 AST (8 - 34 IUnit/L) 42 H ALT (10 - 49 IUnit/L) 25 Total Alk Phosphatase (20 - 125 IUnit/L) 58 Total Protein (6.4 - 8.2 g/dL) 6.0 L Albumin (3.4 - 5.0 g/dL) 3.20 L Hematology WBC (4.5 - 11.0 x10 3/uL) 13.8 H RBC (4.00 - 5.60 x10 6/uL) 3.44 L Hgb (12.5 - 16.9 g/dL) 10.2 L Hct (37.5 - 50.7 %) 31.1 L MCV (81.0 - 99.0 fL) 90.4 MCH (27.0 - 33.0 pg) 29.7 MCHC (33.0 - 37.0 g/dL) 32.8 L RDW (11.5 - 14.5 %) 12.7 Plt Count (150 - 400 x10 3/uL) 260 MPV (7.0 - 9.0 fL) 10.0 H Neut % (Auto) (56.0 - 77.0 %) 88.7 H Lymph % (Auto) (14.0 - 32.0 %) 4.0 L [place] % (Auto) (4.8 - 9.0 %) 6.7 Eos % (Auto) (0.3 - 3.7 %) 0.0 L Baso % (Auto) (0.0 - 2.0 %) 0.1 Neut # (Auto) (2.0 - 7.6 x10 3/uL) 12.23 H Lymph # (Auto) (1.0 - 3.8 x10 3/uL) 0.55 L [place] # (Auto) (0.1 - 0.8 x10 3/uL) 0.92 H Eos # (Auto) (0.0 - 0.2 x10 3/uL) 0.00 Baso # (Auto) (0.0 - 0.2 x10 3/uL) 0.01 Abs Immat Gran (auto) (0.00 - 0.03 0.07 H x10 3/uL) Immature Gran % (0.0 - 2.0 %) 0.5 Nucleated RBC % (0 - 0 %) 0.0 Nucleated RBCs # (Man) (0.0 - 0.1 0.00 x10 3/uL) 04/27 Chemistry POC Glucose (70 - 110 MG/DL) 145 H 157 H Recent Impressions: RADIOLOGY - XR CHEST 1 V 04/28 0518 Report Impression - Status: SIGNED Entered: 04/28/2023 0830 IMPRESSION: Lines and tubes, as detailed above. Pulmonary edema and small left pleural effusion again noted. Enlarged cardiomediastinal silhouette. Impression By: DR.SHEAL Janiya Jiménez M.D. RADIOLOGY - XR CHEST 1 V 04/28 1716 Report Impression - Status: SIGNED Entered: 04/28/2023 1759 IMPRESSION: Improved mild bilateral interstitial infiltrates. Trace effusions. Impression By: Zane Powers M.D. Laboratory Tests: 04/27 04/27 04/27 04/27 04/27 1424 1422 1348 1347 1235 Blood Gas O2 Saturation (90 - 100 %) 100.0 99.7 ABG pH (7.35 - 7.45) 7.380 7.257 *L ABG pCO2 (35.0 - 45 mmHg) 41.5 45.1 H ABG pO2 (80 - 100.0 mmHg) 381.1 *H 238.6 *H ABG HCO3 (22.0 - 26.0 MMOL/L) 24.6 20.1 L ABG Total CO2 25.8 21.5 ABG Base Excess (-4.0 - 4.0 -0.6 -6.8 L MMOL/L) ABG Hematocrit (37.5 - 50.7 %) 29 L 33 L ABG Hemoglobin (12.5 - 16.9 G/DL) 9.7 L 11.3 L Sodium (134 - 147 mmol/L) 140 139 Potassium (3.4 - 5.0 mmol/L) 5.6 H 4.1 Chloride (100 - 108 mmol/L) 108 108 Ionized Calcium (1.12 - 1.32 1.11 L 1.14 MMOL/L) Lactic Acid (0.9 - 1.7 mmol/l) < 0.3 L 0.3 L Chemistry POC Creatinine (0.8 - 1.3 mg/dL) 0.7 L 0.5 L POC Glucose (mg/dL) (70 - 110 155 H 165 H MG/DL) Coagulation Activated Coag Time (74 - 137 SEC) > 1000 H 677 H 152 H 04/27 04/27 04/27 04/27 1233 0828 0651 0322 Blood Gas O2 Saturation (90 - 100 %) 99.8 ABG pH (7.35 - 7.45) 7.331 L ABG pCO2 (35.0 - 45 mmHg) 32.2 L ABG pO2 (80 - 100.0 mmHg) 252.0 *H ABG HCO3 (22.0 - 26.0 MMOL/L) 17.0 *L ABG Total CO2 18.0 ABG Base Excess (-4.0 - 4.0 MMOL/L) -8.0 L ABG Hematocrit (37.5 - 50.7 %) 32 L ABG Hemoglobin (12.5 - 16.9 G/DL) 11.0 L Sodium (134 - 147 mmol/L) 143 Potassium (3.4 - 5.0 mmol/L) 3.5 Chloride (100 - 108 mmol/L) 113 H Ionized Calcium (1.12 - 1.32 MMOL/L) 1.09 L Lactic Acid (0.9 - 1.7 mmol/l) < 0.3 L Chemistry Sodium (134 - 147 mEq/L) 135 Potassium (3.4 - 5.0 mEq/L) 4.5 Chloride (100 - 108 mEq/L) 108 Carbon Dioxide (21 - 33 mEq/l) 23 Anion Gap (0 - 20) 8 BUN (7 - 25 mg/dL) 22 Creatinine (0.6 - 1.3 mg/dL) 0.9 POC Creatinine (0.8 - 1.3 mg/dL) 0.5 L Glomerular Filtr Rate (90 - 95) 99.6 H Glucose (77 - 141 mg/dL) 131 POC Glucose (70 - 110 MG/DL) 150 H POC Glucose (mg/dL) (70 - 110 MG/DL) 139 H Calcium (8.0 - 10.5 mg/dL) 9.2 Magnesium (1.6 - 2.6 mg/dL) 1.66 Coagulation INR (0.8 - 1.2) 1.5 H PTT ([place]) (25.0 - 39.5 Seconds) 32.7 PT Patient/Control Mix (9.3 - 12.9 SECONDS) 16.4 H Hematology WBC (4.5 - 11.0 x10 3/uL) 7.1 RBC (4.00 - 5.60 x10 6/uL) 4.00 Hgb (12.5 - 16.9 g/dL) 12.0 L Hct (37.5 - 50.7 %) 36.3 L MCV (81.0 - 99.0 fL) 90.8 MCH (27.0 - 33.0 pg) 30.0 MCHC (33.0 - 37.0 g/dL) 33.1 RDW (11.5 - 14.5 %) 12.3 Plt Count (150 - 400 x10 3/uL) 277 MPV (7.0 - 9.0 fL) 10.1 H Neut % (Auto) (56.0 - 77.0 %) 60.0 Lymph % (Auto) (14.0 - 32.0 %) 29.4 [place] % (Auto) (4.8 - 9.0 %) 7.5 Eos % (Auto) (0.3 - 3.7 %) 1.8 Baso % (Auto) (0.0 - 2.0 %) 0.7 Neut # (Auto) (2.0 - 7.6 x10 3/uL) 4.27 Lymph # (Auto) (1.0 - 3.8 x10 3/uL) 2.09 [place] # (Auto) (0.1 - 0.8 x10 3/uL) 0.53 Eos # (Auto) (0.0 - 0.2 x10 3/uL) 0.13 Baso # (Auto) (0.0 - 0.2 x10 3/uL) 0.05 Abs Immat Gran (auto) (0.00 - 0.03 0.04 H x10 3/uL) Immature Gran % (0.0 - 2.0 %) 0.6 Nucleated RBC % (0 - 0 %) 0.0 Nucleated RBCs # (Man) (0.0 - 0.1 x10 3/uL) 0.00 Serology SARS-CoV-2 Ag (Rapid) (Negative) Negative 04/26 160 Chemistry POC Glucose (70 - 110 MG/DL) 175 H 164 H Microbiology: Date/Time Procedure - Status Source Growth 04/27 828 MSSA Surveillance Screen - RECD NASAL 04/27 828 MRSA DNA Surveillance Screen - RECD NASAL Laboratory Tests: 04/26 04/26 04/26 04/25 1123 0714 0545 2028 Chemistry Sodium (134 - 147 mEq/L) 137 Potassium (3.4 - 5.0 mEq/L) 4.6 Chloride (100 - 108 mEq/L) 107 Carbon Dioxide (21 - 33 mEq/l) 23 Anion Gap (0 - 20) 12 BUN (7 - 25 mg/dL) 28 H Creatinine (0.6 - 1.3 mg/dL) 1.0 Glomerular Filtr Rate (90 - 95) 87.8 L Glucose (77 - 141 mg/dL) 137 POC Glucose (70 - 110 MG/DL) 192 H 137 H 214 H Calcium (8.0 - 10.5 mg/dL) 9.2 Magnesium (1.6 - 2.6 mg/dL) 1.64 Hematology WBC (4.5 - 11.0 x10 3/uL) 7.5 RBC (4.00 - 5.60 x10 6/uL) 3.95 L Hgb (12.5 - 16.9 g/dL) 11.9 L Hct (37.5 - 50.7 %) 35.8 L MCV (81.0 - 99.0 fL) 90.6 MCH (27.0 - 33.0 pg) 30.1 MCHC (33.0 - 37.0 g/dL) 33.2 RDW (11.5 - 14.5 %) 12.4 Plt Count (150 - 400 x10 3/uL) 289 MPV (7.0 - 9.0 fL) 10.2 H Neut % (Auto) (56.0 - 77.0 %) 58.7 Lymph % (Auto) (14.0 - 32.0 %) 30.8 [place] % (Auto) (4.8 - 9.0 %) 7.8 Eos % (Auto) (0.3 - 3.7 %) 1.7 Baso % (Auto) (0.0 - 2.0 %) 0.5 Neut # (Auto) (2.0 - 7.6 x10 3/uL) 4.38 Lymph # (Auto) (1.0 - 3.8 x10 3/uL) 2.30 [place] # (Auto) (0.1 - 0.8 x10 3/uL) 0.58 Eos # (Auto) (0.0 - 0.2 x10 3/uL) 0.13 Baso # (Auto) (0.0 - 0.2 x10 3/uL) 0.04 Abs Immat Gran (auto) (0.00 - 0.03 x10 3/uL) 0.04 H Immature Gran % (0.0 - 2.0 %) 0.5 Nucleated RBC % (0 - 0 %) 0.0 Nucleated RBCs # (Man) (0.0 - 0.1 x10 3/uL) 0.00 Laboratory Tests: 04/25 04/25 04/25 04/24 1126 0781 3300 2002 Chemistry Sodium (134 - 147 mEq/L) 134 Potassium (3.4 - 5.0 mEq/L) 4.2 Chloride (100 - 108 mEq/L) 105 Carbon Dioxide (21 - 33 mEq/l) 23 Anion Gap (0 - 20) 11 BUN (7 - 25 mg/dL) 26 H Creatinine (0.6 - 1.3 mg/dL) 1.0 Glomerular Filtr Rate (90 - 95) 87.8 L Glucose (77 - 141 mg/dL) 168 H POC Glucose (70 - 110 MG/DL) 214 H 158 H 347 H Calcium (8.0 - 10.5 mg/dL) 9.2 Magnesium (1.6 - 2.6 mg/dL) 1.60 Hematology WBC (4.5 - 11.0 x10 3/uL) 11.9 H RBC (4.00 - 5.60 x10 6/uL) 3.89 L Hgb (12.5 - 16.9 g/dL) 11.6 L Hct (37.5 - 50.7 %) 34.7 L MCV (81.0 - 99.0 fL) 89.2 MCH (27.0 - 33.0 pg) 29.8 MCHC (33.0 - 37.0 g/dL) 33.4 RDW (11.5 - 14.5 %) 12.5 Plt Count (150 - 400 x10 3/uL) 316 MPV (7.0 - 9.0 fL) 10.5 H Neut % (Auto) (56.0 - 77.0 %) 80.7 H Lymph % (Auto) (14.0 - 32.0 %) 11.5 L [place] % (Auto) (4.8 - 9.0 %) 6.9 Eos % (Auto) (0.3 - 3.7 %) 0.2 L Baso % (Auto) (0.0 - 2.0 %) 0.2 Neut # (Auto) (2.0 - 7.6 x10 3/uL) 9.65 H Lymph # (Auto) (1.0 - 3.8 x10 3/uL) 1.37 [place] # (Auto) (0.1 - 0.8 x10 3/uL) 0.82 H Eos # (Auto) (0.0 - 0.2 x10 3/uL) 0.02 Baso # (Auto) (0.0 - 0.2 x10 3/uL) 0.02 Abs Immat Gran (auto) (0.00 - 0.03 x10 3/uL) 0.06 H Add Manual Diff NO Immature Gran % (0.0 - 2.0 %) 0.5 Nucleated RBC % (0 - 0 %) 0.0 Nucleated RBCs # (Man) (0.0 - 0.1 x10 3/uL) 0.00 Laboratory Tests: 04/24 04/24 04/24 04/24 04/24 1532 1108 1013 0645 0301 Chemistry Sodium (134 - 147 mEq/L) 135 Potassium (3.4 - 5.0 mEq/L) 4.3 Chloride (100 - 108 mEq/L) 106 Carbon Dioxide (21 - 33 mEq/l) 21 Anion Gap (0 - 20) 13 BUN (7 - 25 mg/dL) 18 Creatinine (0.6 - 1.3 mg/dL) 0.9 Glomerular Filtr Rate (90 - 95) 99.6 H Glucose (77 - 141 mg/dL) 113 POC Glucose (70 - 110 MG/DL) 310 H 176 H 149 H 141 H Calcium (8.0 - 10.5 mg/dL) 9.2 Magnesium (1.6 - 2.6 mg/dL) 1.68 Hematology WBC (4.5 - 11.0 x10 3/uL) 7.8 RBC (4.00 - 5.60 x10 6/uL) 3.93 L Hgb (12.5 - 16.9 g/dL) 11.7 L Hct (37.5 - 50.7 %) 35.6 L MCV (81.0 - 99.0 fL) 90.6 MCH (27.0 - 33.0 pg) 29.8 MCHC (33.0 - 37.0 g/dL) 32.9 L RDW (11.5 - 14.5 %) 12.3 Plt Count (150 - 400 x10 3/uL) 278 MPV (7.0 - 9.0 fL) 10.0 H Neut % (Auto) (56.0 - 77.0 %) 68.0 Lymph % (Auto) (14.0 - 32.0 %) 21.2 [place] % (Auto) (4.8 - 9.0 %) 7.9 Eos % (Auto) (0.3 - 3.7 %) 1.9 Baso % (Auto) (0.0 - 2.0 %) 0.4 Neut # (Auto) (2.0 - 7.6 x10 3/uL) 5.28 Lymph # (Auto) (1.0 - 3.8 x10 3/uL) 1.65 [place] # (Auto) (0.1 - 0.8 x10 3/uL) 0.61 Eos # (Auto) (0.0 - 0.2 x10 3/uL) 0.15 Baso # (Auto) (0.0 - 0.2 x10 3/uL) 0.03 Abs Immat Gran (auto) (0.00 - 0.03 0.05 H x10 3/uL) Immature Gran % (0.0 - 2.0 %) 0.6 Nucleated RBC % (0 - 0 %) 0.0 Nucleated RBCs # (Man) (0.0 - 0.1 0.00 x10 3/uL) 04/23 2019 Chemistry POC Glucose (70 - 110 MG/DL) 276 H Microbiology: Date/Time Procedure - Status Source Growth 04/24 1000 Tissue Culture - RES TISSUE 04/24 1000 Anaerobic Culture - RES TISSUE 04/24 1000 Gram Stain - RES TISSUE Laboratory Tests: 04/23 04/23 04/23 04/23 04/23 1550 1110 0703 0330 0330 Chemistry Sodium (134 - 147 mEq/L) 137 Potassium (3.4 - 5.0 mEq/L) 3.9 Chloride (100 - 108 mEq/L) 105 Carbon Dioxide (21 - 33 mEq/l) 22 Anion Gap (0 - 20) 14 BUN (7 - 25 mg/dL) 25 Creatinine (0.6 - 1.3 mg/dL) 1.1 Glomerular Filtr Rate (90 - 95) 78.3 L Glucose (77 - 141 mg/dL) 131 POC Glucose (70 - 110 MG/DL) 265 H 284 H 143 H Calcium (8.0 - 10.5 mg/dL) 9.4 Magnesium (1.6 - 2.6 mg/dL) 1.72 Hematology WBC (4.5 - 11.0 x10 3/uL) 10.1 RBC (4.00 - 5.60 x10 6/uL) 4.24 Hgb (12.5 - 16.9 g/dL) 12.7 Hct (37.5 - 50.7 %) 38.4 MCV (81.0 - 99.0 fL) 90.6 MCH (27.0 - 33.0 pg) 30.0 MCHC (33.0 - 37.0 g/dL) 33.1 RDW (11.5 - 14.5 %) 12.3 Plt Count (150 - 400 x10 3/uL) 332 MPV (7.0 - 9.0 fL) 10.3 H Neut % (Auto) (56.0 - 77.0 %) 71.8 Lymph % (Auto) (14.0 - 32.0 %) 18.0 [place] % (Auto) (4.8 - 9.0 %) 8.4 Eos % (Auto) (0.3 - 3.7 %) 0.8 Baso % (Auto) (0.0 - 2.0 %) 0.4 Neut # (Auto) (2.0 - 7.6 x10 3/uL) 7.28 Lymph # (Auto) (1.0 - 3.8 x10 3/uL) 1.82 [place] # (Auto) (0.1 - 0.8 x10 3/uL) 0.85 H Eos # (Auto) (0.0 - 0.2 x10 3/uL) 0.08 Baso # (Auto) (0.0 - 0.2 x10 3/uL) 0.04 Abs Immat Gran (auto) (0.00 - 0.03 0.06 H x10 3/uL) Immature Gran % (0.0 - 2.0 %) 0.6 Nucleated RBC % (0 - 0 %) 0.0 Nucleated RBCs # (Man) (0.0 - 0.1 0.00 x10 3/uL) 04/23 04/22 0252 2121 Chemistry POC Glucose (70 - 110 MG/DL) 197 H Toxicology Vancomycin Trough (10.0 - 20.0 mcg/mL) 12.1 Recent Impressions: MAGNETIC RESONANCE IMAGING - MRI LOW EXT W/O CONT LT 04/23 1034 Report Impression - Status: SIGNED Entered: 04/23/2023 1207 IMPRESSION: 5th MTP effusion/possible septic arthritis with osteomyelitis changes as detailed. No drainable soft tissue abscess. Impression By: [email or web address] - Aaron Lemuel Goldberg M.D. Laboratory Tests: 04/22 04/21 04/21 0421 1957 1555 Chemistry Sodium (134 - 147 mEq/L) 139 Potassium (3.4 - 5.0 mEq/L) 4.3 Chloride (100 - 108 mEq/L) 108 Carbon Dioxide (21 - 33 mEq/l) 22 Anion Gap (0 - 20) 14 BUN (7 - 25 mg/dL) 17 Creatinine (0.6 - 1.3 mg/dL) 0.9 Glomerular Filtr Rate (90 - 95) 99.6 H Glucose (77 - 141 mg/dL) 124 POC Glucose (70 - 110 MG/DL) 232 H 133 H Calcium (8.0 - 10.5 mg/dL) 9.0 Hematology WBC (4.5 - 11.0 x10 3/uL) 8.6 RBC (4.00 - 5.60 x10 6/uL) 3.89 L Hgb (12.5 - 16.9 g/dL) 11.5 L Hct (37.5 - 50.7 %) 36.2 L MCV (81.0 - 99.0 fL) 93.1 MCH (27.0 - 33.0 pg) 29.6 MCHC (33.0 - 37.0 g/dL) 31.8 L RDW (11.5 - 14.5 %) 12.5 Plt Count (150 - 400 x10 3/uL) 301 MPV (7.0 - 9.0 fL) 10.1 H Neut % (Auto) (56.0 - 77.0 %) 66.1 Lymph % (Auto) (14.0 - 32.0 %) 23.5 [place] % (Auto) (4.8 - 9.0 %) 7.4 Eos % (Auto) (0.3 - 3.7 %) 2.0 Baso % (Auto) (0.0 - 2.0 %) 0.6 Neut # (Auto) (2.0 - 7.6 x10 3/uL) 5.66 Lymph # (Auto) (1.0 - 3.8 x10 3/uL) 2.01 [place] # (Auto) (0.1 - 0.8 x10 3/uL) 0.63 Eos # (Auto) (0.0 - 0.2 x10 3/uL) 0.17 Baso # (Auto) (0.0 - 0.2 x10 3/uL) 0.05 Abs Immat Gran (auto) (0.00 - 0.03 x10 3/uL) 0.03 Immature Gran % (0.0 - 2.0 %) 0.4 Nucleated RBC % (0 - 0 %) 0.0 Nucleated RBCs # (Man) (0.0 - 0.1 x10 3/uL) 0.00 Microbiology: Date/Time Procedure - Status Source Growth 04/21 1535 Blood Culture - RECD BLOOD 04/21 1535 Blood Culture Gram Stain - RECD BLOOD 04/21 1535 Blood Culture - RECD BLOOD 04/21 1535 Blood Culture Gram Stain - RECD BLOOD Recent Impressions: RADIOLOGY - XR FOOT 3 + V LT 04/21 1423 Report Impression - Status: SIGNED Entered: 04/21/2023 1438 IMPRESSION: Interval progression of osteomyelitis involving the fifth metatarsal head and fifth proximal phalanx base about the MTP joint since the prior study from 04/16/2023. Impression By: [email or web address] Janiya Elizabeth M.D. Laboratory Tests: 04/21 04/21 04/21 04/21 1128 0931 0534 0132 Chemistry Sodium (134 - 147 mEq/L) 137 Potassium (3.4 - 5.0 mEq/L) 4.0 Chloride (100 - 108 mEq/L) 105 Carbon Dioxide (21 - 33 mEq/l) 24 Anion Gap (0 - 20) 12 BUN (7 - 25 mg/dL) 18 Creatinine (0.6 - 1.3 mg/dL) 1.1 Glomerular Filtr Rate (90 - 95) 78.3 L Glucose (77 - 141 mg/dL) 181 H POC Glucose (70 - 110 MG/DL) 172 H Calcium (8.0 - 10.5 mg/dL) 9.3 Magnesium (1.6 - 2.6 mg/dL) 1.61 C-Reactive Protein (<10.0 mg/L) 25.0 H Hematology WBC (4.5 - 11.0 x10 3/uL) 7.0 RBC (4.00 - 5.60 x10 6/uL) 4.05 Hgb (12.5 - 16.9 g/dL) 12.0 L Hct (37.5 - 50.7 %) 36.5 L MCV (81.0 - 99.0 fL) 90.1 MCH (27.0 - 33.0 pg) 29.6 MCHC (33.0 - 37.0 g/dL) 32.9 L RDW (11.5 - 14.5 %) 12.0 Plt Count (150 - 400 x10 3/uL) 305 MPV (7.0 - 9.0 fL) 10.5 H Neut % (Auto) (56.0 - 77.0 %) 61.3 Lymph % (Auto) (14.0 - 32.0 %) 27.0 [place] % (Auto) (4.8 - 9.0 %) 8.9 Eos % (Auto) (0.3 - 3.7 %) 1.7 Baso % (Auto) (0.0 - 2.0 %) 0.7 Neut # (Auto) (2.0 - 7.6 x10 3/uL) 4.28 Lymph # (Auto) (1.0 - 3.8 x10 3/uL) 1.89 [place] # (Auto) (0.1 - 0.8 x10 3/uL) 0.62 Eos # (Auto) (0.0 - 0.2 x10 3/uL) 0.12 Baso # (Auto) (0.0 - 0.2 x10 3/uL) 0.05 Abs Immat Gran (auto) (0.00 - 0.03 x10 3/uL) 0.03 Immature Gran % (0.0 - 2.0 %) 0.4 Nucleated RBC % (0 - 0 %) 0.0 Nucleated RBCs # (Man) (0.0 - 0.1 x10 3/uL) 0.00 ESR Westergren (0 - 15 mm/hr) 87 H Urines Urine Color (YEL/STRAW) YELLOW Urine Appearance (CLEAR) CLEAR Urine pH (5.0 - 7.0) 5.0 Ur Specific [place] (1.005 - 1.030) 1.011 Urine Protein (NEGATIVE) NEGATIVE Urine Glucose (UA) (NEGATIVE) 3+ H Urine Ketones (NEGATIVE) NEGATIVE Urine Blood (NEGATIVE) NEGATIVE Urine Nitrite (NEGATIVE) NEGATIVE Urine Bilirubin (NEGATIVE) NEGATIVE Urine Urobilinogen (0.2 - 1.0 mg/dL) 0.2 Ur Leukocyte Esterase (NEGATIVE) NEGATIVE Urine RBC (0 - 3 RBC/HPF) 0-3 Urine WBC (0 - 3 WBC/HPF) 0-3 Ur Squamous Epith Cells (NONE SEEN /HPF) 0-5 Ur Transition Epith Cell (NONE SEEN /HPF) TRACE Urine Bacteria (NONE SEEN /HPF) TRACE Urine Mucus (NONE SEEN /LPF) TRACE 04/20 Chemistry POC Glucose (70 - 110 MG/DL) 325 H Coagulation INR (0.8 - 1.2) 1.3 H PTT ([place]) (25.0 - 39.5 Seconds) 39.3 PT Patient/Control Mix (9.3 - 12.9 SECONDS) 14.5 H Microbiology: Date/Time Procedure - Status Source Growth 04/21 153 Blood Culture - RECD BLOOD 04/21 153 Blood Culture Gram Stain - RECD BLOOD 04/21 1535 Blood Culture - RECD BLOOD 04/21 153 Blood Culture Gram Stain - RECD BLOOD Recent Impressions: RADIOLOGY - XR FOOT 3 + V LT 04/21 142 Report Impression - Status: SIGNED Entered: 04/21/2023 1438 IMPRESSION: Interval progression of osteomyelitis involving the fifth metatarsal head and fifth proximal phalanx base about the MTP joint since the prior study from 04/16/2023. Impression By: [email or web address] - Brett Elizabeth M.D. 1. 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 2. Coronary artery disease. 6 3. S/P CABG 4. Ex-smoker 5.Left foot wound 6.Hypertension. 7. Hyperlipidemia Blood sugar 150-200 mg/dL. HbA1c 8.3%. Lipids elevated.This Adjust insulin dose. Adjust Insulin drip Diabetes dietary education. at 1827 RPT #:[id number] END OF REPORT [facility] 2023-04-28 16:05:00 [facility] Cardiology Progress Note REPORT#:[id number] REPORT STATUS: Signed REPORT INITIALIZATION DATE:04/28/23 TIME: 1604 PATIENT: JONG RIVAS UNIT #: [id number] ROOM/BED: [place] [id number] : 67 AGE: 58 SEX: M ATTEND: Domenic Rainey MD ADM AUTHOR: Noemí Nieto MD REPT SERVICE DT/TIME: 04/28/23 1605 * ALL edits or amendments must be made on the electronic/computer document * Subjective HPI: 58-year-old male with past medical history of [id number] diabetes mellitus, hypertension, history of PE previously on anticoagulation, right lung cavitary lesion was seen at [facility] on 04/15/2023 with a complaint of shortness of breath for few weeks and chest pain. Patient was found to have initial troponin I of 0.045. In addition, his BNP was thousand 54 pg/mL. Initial EKG showed normal sinus rhythm with right bundle branch block. He was deemed to have NSTEMI. Subsequently, he underwent coronary angiogram via right femoral approach and was found to have multivessel CAD including severe proximal LAD stenosis, severe ostial to proximal circumflex stenosis and a dominant vessel, and nondominant RCA. LVEDP was 13 mmHg. During hospital stay, he was also diagnosed with left diabetic foot infection. Subsequently MRI of the foot showed osteomyelitis of the left fifth toe. Patient was started on IV antibiotics. Cultures grew Pseudomonas aeruginosa and Staph aureus. In addition, patient was deemed to have UTI. Patient was transferred to [facility] for further work-up including possible evaluation for CABG versus high risk PCI. Patient seen this afternoon. Denies any chest pain or shortness of breath at this point. Overall, poor historian. Not able to tell what medications he takes at home. EKG done today 2023 showed normal sinus rhythm with right bundle branch block. Echocardiogram done today showed normal EF, no wall motion normalities, no significant valvular abnormalities. Objective General VS/I O: 24 hour I O ending at 0700: 04/28 0704/27 1900 Intake Total 1936.00 388.00 Output Total 715 735 Balance 1221.00 -347.00 Intake, IV 1816.00 388.00 Intake, Oral 120 Output, Chest 180 130 Tube Drainage Output, Urine 535 605 Vital Signs: Date Time Temp Pulse Resp B/P B/P Pulse O2 O2 Flow FiO2 Mean Ox Delivery Rate 04/28 1130 79 29 99/62 76 95 04/28 1100 103/62 77 04/28 1100 98.8 75 9 114/54 69 96 04/28 1030 96/61 74 04/28 1030 98.6 71 27 100/50 63 94 04/28 1004 74 37 106/52 66 95 04/28 1000 75 04/28 0930 99.0 70 18 106/51 66 95 04/28 0900 99.0 73 9 101/52 65 95 04/28 0800 94/57 69 04/28 0800 99.0 69 8 106/53 67 95 04/28 0730 98.8 67 23 97/48 61 95 04/28 0700 83/48 60 04/28 0700 98.6 65 15 97/49 62 95 04/28 0631 98.6 68 26 95/46 60 96 04/28 0630 98.6 64 25 88/43 60 95 04/28 0629 83/52 62 04/28 0629 98.6 66 27 95/45 58 94 04/28 0623 86/54 65 04/28 0623 98.6 67 25 98/47 61 94 04/28 0600 99/59 74 04/28 0600 98.8 66 25 117/54 71 95 04/28 0543 87/55 65 04/28 0543 98.8 68 22 99/48 62 94 11/09 0530 98.8 70 27 109/53 69 96 11/09 0520 116/61 82 11/09 0520 99.0 68 25 122/63 75 95 11/09 0514 84/54 65 11/09 0514 99.0 68 25 92/46 59 11/09 0508 72/48 55 11/09 0508 69 25 58/38 44 11/09 0500 68 33 11/09 0430 99.0 69 28 92/46 62 96 11/09 0424 99.0 69 16 112/51 68 97 11/09 0418 96 Nasal 2 28 cannula 11/09 0403 96/53 68 11/09 0403 99.0 71 27 105/47 65 97 11/09 0400 99.0 72 27 63/25 44 91 11/09 0330 99.0 74 16 115/50 69 98 11/09 0300 133/74 98 11/09 0300 99.0 81 20 140/66 83 99 11/09 0230 99.0 73 19 153/59 85 97 11/09 0200 115/70 87 11/09 0200 99.0 83 25 123/56 74 98 11/09 0130 99.0 75 22 130/55 76 98 11/09 0114 99.0 75 22 126/54 75 98 11/09 0100 116/66 86 11/09 0100 99.0 76 26 120/56 74 99 11/09 0030 99.0 74 22 122/56 74 100 11/09 0000 103/59 75 11/09 0000 99.0 83 18 103/51 67 99 11/08 2330 99.0 73 22 107/53 68 100 11/08 2300 102/60 74 11/08 2300 98.8 72 21 92/55 64 100 11/08 2235 114/68 85 11/08 2235 98.6 74 23 113/58 75 100 11/08 2230 98.6 73 22 105/55 69 100 11/08 2219 80/57 64 11/08 2219 98.6 71 19 86/48 58 98 11/08 2200 83/59 66 11/08 2200 98.4 73 23 98/52 65 99 11/08 2153 98.4 74 19 98/51 65 98 11/08 2147 90/61 70 11/08 2147 98.4 75 22 96/51 64 99 11/08 2130 98.2 75 25 99/53 66 99 04/27 2100 81/58 65 04/27 2100 98.1 74 23 83/48 58 99 04/27 2057 84/57 65 04/27 2057 98.1 74 23 80/48 57 99 04/27 2045 83/55 64 04/27 2045 97.9 74 20 88/49 61 100 04/27 2031 100 Nasal 5 40 cannula 04/27 2030 97.7 73 20 94/52 64 99 04/27 2000 High flow 7 nasal cannula 04/27 2000 93/58 70 04/27 2000 97.5 81 25 98/50 63 100 04/27 1930 97.3 74 21 98/49 62 99 04/27 1916 90/60 71 04/27 1916 97.5 74 24 101/50 64 100 04/27 1900 84/53 63 04/27 1900 97.5 72 21 76/50 58 98 04/27 181 High flow 7 nasal cannula 04/27 1725 76 28 98 04/27 1725 79 98 45 04/27 1640 98 Ventilator 50 04/27 1640 81 98 50 PATIENT WEIGHT: Weight (lb): 213 Weight (oz): 10.05 Weight (kg): 96.900 Medications: Active Meds + DC'd Last 24 Hrs Ipratropium [place] (ATROVENT) 500 MCG RTQ2H PRN PRN INH Cyanocobalamin (Vitamin B-12 500 mcg tab) 500 MCG DAILY PO Ferrous Sulfate (FERROUS SULFATE) 325 MG DAILY PO Bisacodyl (DULCOLAX) 10 MG ONCE PRN RECTAL Magnesium Hydroxide (MILK OF MAGNESIA) 30 ML ONCE PRN PO Atorvastatin Calcium (LIPITOR) 40 MG 2100 PO Piperacillin Sod/Tazobactam Sod (ZOSYN 3.375GM) 3.375 GM Q8H IV Sodium Chloride (SODIUM CHLORIDE 0.9% 100 ML) 100 ML Clopidogrel Bisulfate (Plavix) 75 MG DAILY PO Polyethylene Glycol (MIRALAX) 17 GM DAILY PO Vancomycin HCl (VANCOMYCIN HCL) 1,500 MG PREOP ONCALL IV (DC) Sodium Chloride (SODIUM CHLORIDE 0.9%) 500 ML Albumin Human (ALBUMINAR 5% 12.5GM/250ML) 250 ML ONCE ONE IV (DC) Acetaminophen (OFIRMEV 10MG/ML) 100 ML Q6H IV (DC) Docusate Sodium (COLACE) 100 MG BID PO Metoprolol Tartrate (LOPRESSOR) 12.5 MG Q12HR PO Sennosides (Senna Lax 8.6 MG TABLET) 17.2 MG BEDTIME PO Aspirin (ASPIRIN) 81 MG DAILY PO Albumin Human (ALBUMINAR 5% 12.5GM/250ML) 250 ML ONCE ONE IV (DC) Fentanyl Citrate (SUBLIMAZE) 25 MCG ONCE ONE IV (DC) Ipratropium [place] (ATROVENT) 500 MCG RTQ4H INH Pantoprazole (PROTONIX) 40 MG DAILY@0600 PO Amiodarone HCl (CORDARONE) 200 MG TID PO Acetaminophen (TYLENOL) 650 MG Q4H PRN PRN PO Acetaminophen (TYLENOL) 650 MG Q4H PRN PRN RECTAL Albumin Human (ALBUMINAR 25%) 25 GM ASDIR PRN IV (DC) Calcium Chloride (CALCIUM CHLORIDE) 1 GM ASDIR PRN IV Dextrose/Water (DEXTROSE 10% IN WATER) 125 ML ASDIR PRN IV (CKD) Dextrose/Water (DEXTROSE 10% IN WATER) 250 ML ASDIR PRN IV (CKD) Epinephrine (ADRENALIN CHLORIDE) 4 MG ASDIR IV Dextrose/Water (DEXTROSE 5% WATER) 246 ML Glucagon (GLUCAGON) 1 MG ASDIR PRN IM Insulin Human Regular (HumuLIN R) 100 UNIT ASDIR IV (CKD) Sodium Chloride (SODIUM CHLORIDE 0.9%) 99 ML Magnesium Sulfate (MAGNESIUM SULFATE 4GM/SWFI 100ML) 100 ML ASDIR PRN IV Magnesium Sulfate (MAGNESIUM SULFATE 2GM/SWFI 50ML) 50 ML ASDIR PRN IV Magnesium Sulfate/Dextrose (MAGNESIUM SULFATE 1GM/D5W 100ML) 100 ML ASDIR PRN IV Nitroglycerin/Dextrose (NITROGLYCERIN 50,000MCG/D5W 250ML) 250 ML ASDIR IV Norepinephrine Bitartrate (NOREPINEPHRINE 8 MG/NS 250 ML) 250 ML TITRATE IV Ondansetron HCl (ZOFRAN) 4 MG Q6H PRN PRN IV Oxycodone HCl (ROXICODONE) 5 MG Q4H PRN PRN PO Oxycodone HCl (ROXICODONE) 10 MG Q4H PRN PRN PO Potassium Chloride (KCL 20MEQ/SWFI 100ML) 100 ML ASDIR PRN IV Sodium Bicarbonate (SODIUM BICARBONATE) 50 MEQ ASDIR PRN IV Sodium Chloride (SODIUM CHLORIDE 0.9%) 1,000 ML .Q20H IV Sodium Chloride (SODIUM CHLORIDE 0.9%) 250 ML Q24H IV Doxycycline Hyclate (VIBRAMYCIN) 100 MG Q12H IV Sodium Chloride (SODIUM CHLORIDE 0.9% 100 ML) 100 ML Verapamil HCl (ISOPTIN) 16.6 MG .Q24H ONE IV (DC) Heparin Sodium (Porcine) (HEPARIN SODIUM) 1,660 UNIT Sodium Bicarbonate (SODIUM BICARBONATE) 0.7 ML Nitroglycerin/Dextrose (NITROGLYCERIN 50MG/D5W 250ML) 8.3 MG Lactated Ringer's (LACTATED RINGERS) 949.5 ML Silver Sulfadiazine (SILVADENE 1% 50 GM CREAM) 1 APPLIC Q12HR TOPICAL Cefepime HCl (MAXIPIME) 1 GM Q6H IV (DC) Sodium Chloride (SODIUM CHLORIDE) 10 ML Metronidazole (FLAGYL) 500 MG Q8H PO (DC) Gabapentin (NEURONTIN) 200 MG TID PO Results Findings/Data: Laboratory Tests 04/28 04/27 04/27 04/27 0211 2233 1736 1650 Blood Gas Puncture Site Art Line Art Line Art Line Art Line O2 Saturation (90 - 100 %) 94.0 97.3 97.8 95.2 ABG pH (7.35 - 7.45) 7.365 7.359 7.332 L 7.344 L ABG pCO2 (35.0 - 45 mmHg) 34.0 L 34.7 L 37.6 38.4 ABG pO2 (80 - 100.0 mmHg) 73.3 L 96.9 104.6 H 80.6 ABG PO2/FiO2 Ratio (mm/Hg) 209.20 161.20 ABG HCO3 (22.0 - 26.0 MMOL/L) 19.4 L 19.6 L 20.0 L 20.9 L ABG Total CO2 20.5 20.7 21.2 22.1 ABG Base Excess (-4.0 - 4.0 MMOL/L) -5.9 L -5.8 L -6.0 L -4.8 L ABG Hematocrit (37.5 - 50.7 %) 32 L 32 L 37 L 34 L ABG Hemoglobin (12.5 - 16.9 G/DL) 10.9 L 10.9 L 12.6 11.5 L Alfie Test N/A Sodium (134 - 147 mmol/L) 140 140 141 138 Potassium (3.4 - 5.0 mmol/L) 4.7 4.8 4.6 5.1 H Chloride (100 - 108 mmol/L) 110 H 110 H 109 H 109 H Ionized Calcium (1.12 - 1.32 MMOL/L) 1.24 1.20 1.22 1.25 Lactic Acid (0.9 - 1.7 mmol/l) 0.5 L 0.9 Temperature (F) 99 98.6 97.5 O2 Delivery Device Cannula Cannula ET Tube Adult Vent Vent Mode CPAP/PS AC Vent Rate (/MIN) 18 FiO2 (%) 50 50 Tidal Volume (ml) 500 PEEP (cmH2O) 5 Laboratory Tests 04/28 04/28 04/28 04/28 04/28 1449 1346 1054 0908 0626 Chemistry Sodium (134 - 147 mEq/L) 135 Potassium (3.4 - 5.0 mEq/L) 4.5 Chloride (100 - 108 mEq/L) 110 H Carbon Dioxide (21 - 33 mEq/l) 19 L Anion Gap (0 - 20) 10 BUN (7 - 25 mg/dL) 26 H Creatinine (0.6 - 1.3 mg/dL) 1.2 Glomerular Filtr Rate (90 - 95) 70.5 L Glucose (77 - 141 mg/dL) 186 H POC Glucose (70 - 110 MG/DL) 144 H 149 H 135 H 140 H Calcium (8.0 - 10.5 mg/dL) 8.7 Ionized Calcium [place] (1.09 - 1.30 MMOL/L) 1.13 Magnesium (1.6 - 2.6 mg/dL) 2.19 04/28 04/28 04/28 04/27 04/27 0211 0201 0104 7059 2143 Chemistry Sodium (134 - 147 mEq/L) 139 Potassium (3.4 - 5.0 mEq/L) 4.6 Chloride (100 - 108 mEq/L) 111 H Carbon Dioxide (21 - 33 mEq/l) 21 Anion Gap (0 - 20) 12 BUN (7 - 25 mg/dL) 25 Creatinine (0.6 - 1.3 mg/dL) 0.9 POC Creatinine (0.8 - 1.3 mg/dL) 0.8 1.0 Glomerular Filtr Rate (90 - 95) 99.6 H Glucose (77 - 141 mg/dL) 142 H POC Glucose (70 - 110 MG/DL) 121 H 145 H POC Glucose (mg/dL) (70 - 110 MG/DL) 138 H 150 H Calcium (8.0 - 10.5 mg/dL) 8.5 Magnesium (1.6 - 2.6 mg/dL) 1.84 Total Bilirubin (0.0 - 1.0 mg/dL) 0.40 Direct Bilirubin (0.1 - 0.3 MG/DL) 0.20 Indirect Bilirubin (MG/DL) 0.20 AST (8 - 34 IUnit/L) 42 H ALT (10 - 49 IUnit/L) 25 Total Alk Phosphatase (20 - 125 IUnit/L) 58 Total Protein (6.4 - 8.2 g/dL) 6.0 L Albumin (3.4 - 5.0 g/dL) 3.20 L 04/27 1736 1650 1643 Chemistry Sodium (134 - 147 mEq/L) 136 Potassium (3.4 - 5.0 mEq/L) 4.9 Chloride (100 - 108 mEq/L) 110 H Carbon Dioxide (21 - 33 mEq/l) 20 L Anion Gap (0 - 20) 11 BUN (7 - 25 mg/dL) 19 Creatinine (0.6 - 1.3 mg/dL) 0.9 POC Creatinine (0.8 - 1.3 mg/dL) 0.8 0.8 Glomerular Filtr Rate (90 - 95) 99.6 H Glucose (77 - 141 mg/dL) 169 H POC Glucose (70 - 110 MG/DL) 157 H POC Glucose (mg/dL) (70 - 110 MG/DL) 180 H 181 H Calcium (8.0 - 10.5 mg/dL) 8.3 Magnesium (1.6 - 2.6 mg/dL) 2.02 Laboratory Tests 04/27 1643 Coagulation INR (0.8 - 1.2) 1.6 H PTT (Jalen) (25.0 - 39.5 Seconds) 44.3 H PT Patient/Control Mix (9.3 - 12.9 SECONDS) 17.3 H Laboratory Tests 04/281 1643 Hematology WBC (4.5 - 11.0 x10 3/uL) 13.8 H 20.4 H RBC (4.00 - 5.60 x10 6/uL) 3.44 L 3.76 L Hgb (12.5 - 16.9 g/dL) 10.2 L 11.4 L Hct (37.5 - 50.7 %) 31.1 L 34.0 L MCV (81.0 - 99.0 fL) 90.4 90.4 MCH (27.0 - 33.0 pg) 29.7 30.3 MCHC (33.0 - 37.0 g/dL) 32.8 L 33.5 RDW (11.5 - 14.5 %) 12.7 12.7 Plt Count (150 - 400 x10 3/uL) 260 275 MPV (7.0 - 9.0 fL) 10.0 H 10.4 H Neut % (Auto) (56.0 - 77.0 %) 88.7 H 88.5 H Lymph % (Auto) (14.0 - 32.0 %) 4.0 L 5.1 L [place] % (Auto) (4.8 - 9.0 %) 6.7 4.9 Eos % (Auto) (0.3 - 3.7 %) 0.0 L 0.2 L Baso % (Auto) (0.0 - 2.0 %) 0.1 0.3 Neut # (Auto) (2.0 - 7.6 x10 3/uL) 12.23 H 18.07 H Lymph # (Auto) (1.0 - 3.8 x10 3/uL) 0.55 L 1.04 [place] # (Auto) (0.1 - 0.8 x10 3/uL) 0.92 H 1.00 H Eos # (Auto) (0.0 - 0.2 x10 3/uL) 0.00 0.05 Baso # (Auto) (0.0 - 0.2 x10 3/uL) 0.01 0.06 Abs Immat Gran (auto) (0.00 - 0.03 x10 3/uL) 0.07 H 0.20 H Immature Gran % (0.0 - 2.0 %) 0.5 1.0 Nucleated RBC % (0 - 0 %) 0.0 0.0 Nucleated RBCs # (Man) (0.0 - 0.1 x10 3/uL) 0.00 0.00 Laboratory Tests 04/28 04/28 04/27 1449 0201 1643 Chemistry Magnesium (1.6 - 2.6 mg/dL) 2.19 1.84 2.02 Radiology data: Recent Impressions: RADIOLOGY - XR CHEST 1 V 04/27 1705 Report Impression - Status: SIGNED Entered: 04/27/2023 1726 IMPRESSION: Interval postoperative changes with support tubes and lines in good position. No pneumothorax. Pulmonary edema and small left pleural effusion. Impression By: [email or web address] Janiya Smiley M.D. RADIOLOGY - XR CHEST 1 V 04/28 0518 Report Impression - Status: SIGNED Entered: 04/28/2023 0830 IMPRESSION: Lines and tubes, as detailed above. Pulmonary edema and small left pleural effusion again noted. Enlarged cardiomediastinal silhouette. Impression By: DR.SHEAL Janiya Jiménez M.D. Free Text Obj Notes Free Text Obj Notes: GENERAL: Sitting in bedside chair, HEENT: Normocephalic, atraumatic NECK: JVP not raised LUNGS: Equal air entry bilaterally, normal vesicular breathing HEART: regular rate, normal S1 and S2, No murmurs, ABDOMEN: Soft, lax, non-tender, non-distended PERIPHERAL PULSES: 2+ dorsalis pedis pulses, left foot covered with dressing EXTREMITIES: No edema Diagnosis, Assessment Plan Consultants: cardiology, cardiovascular surgery, pulmonary Free Text DxA P Notes Free Text DxA P Notes: #NSTEMI #Severe multivessel CAD s/p CABG x6 with RICHARDS to LAD, sequential diagonal, SVG to ramus, SVG to OM, SVG to PDA, SVG to RPL, and amputation of the left atrial appendage. #Left foot diabetic foot infection with osteomyelitis S/P successful left foot fifth proximal phalanx and fifth metatarsal head resection on 04/25- on IV antibiotics per ID #Urinary tract infection #Hyperlipidemia #Diabetes mellitus-A1c 8.3 #Essential hypertension #Right lung cavitary lesion PLAN: -CABG work-up per CT surgery versus high risk PCI. -We will get arterial Doppler bilateral lower extremities to evaluate for PAD given left diabetic foot infection. -IV antibiotics per ID -Continue aspirin 81 mg daily. Increase atorvastatin from 40 mg to 80 mg nightly. Start metoprolol tartrate 12.5 mg twice daily. -Continue lisinopril 10 mg daily. 04/21/2023 -Patient seen and examined. Telemetry reviewed. Remains in sinus rhythm. Arterial duplex yesterday showed no evidence of any hemodynamically significant stenosis in the bilateral lower extremity arteries. LDL 92 mg/dL. Atorvastatin increased to 80 mg nightly yesterday. Continue aspirin 81 mg daily, lisinopril 10 mg daily, metoprolol tartrate 12.5 mg twice daily. ID on board for osteomyelitis. CT surgery on board for consideration of CABG. Timing will depend on treatment of foot infection. 04/22/2023: -Patient seen and examined. Telemetry reviewed. Remains in normal sinus rhythm. Increase metoprolol to tartrate to 25 mg twice daily. ID on board for osteomyelitis. Plan for CABG per CT surgery when medically stable and infection improved/resolved. Continue aspirin, high intensity atorvastatin, and lisinopril 10 mg daily. 04/25/2023: -Patient seen and examined. Telemetry reviewed. Remains in normal sinus rhythm. Underwent successful left foot fifth proximal phalanx and fifth metatarsal head resection yesterday. 6 weeks of IV antibiotic treatment plan per ID for osteomyelitis. Planning for CABG per CT surgery. No chest pain or shortness of breath currently. Continue aspirin 81 mg daily, atorvastatin 80 mg nightly, lisinopril 10 mg daily, and metoprolol tartrate 25 mg p.o. every 12 hourly. 04/26/2023: -Patient seen and examined. Telemetry reviewed. Remains in normal sinus rhythm. Plan for CABG likely next week per CT surgery. On IV antibiotics per ID. Denies any chest pain or shortness of breath. Continue aspirin 81 mg daily, atorvastatin 80 mg nightly, lisinopril 10 mg daily, and metoprolol tartrate 25 mg p.o. every 12 hourly. 04/27/2023: Patient seen and examined. Telemetry reviewed. In sinus rhythm. Plan for CABG next week per CT surgery. On IV cefepime and Flagyl per ID. Continue aspirin 81 mg daily, atorvastatin 80 mg nightly, lisinopril 10 mg daily, and metoprolol tartrate 25 mg p.o. every 12 hourly. 04/28/2023-postoperative day 1: -Patient seen and examined in CVICU. Telemetry reviewed. Remains in sinus rhythm. Underwent successful CABG x6 yesterday and amputation of left atrial appendage. Extubated successfully. Currently off pressors. Has a mediastinal and left chest tube with minimal output this morning. Not on any pressors. Advanced heart failure team consulted. Continue aspirin 81 mg daily, Plavix 75 mg daily, metoprolol tartrate 12.5 mg every 12 hourly, high intensity atorvastatin, and amiodarone 200 mg 3 times daily. at 1609 at 0137 RPT #:[id number] END OF REPORT [facility] 2023-04-28 13:20:00 [facility] ([facility] Adult General Consultation REPORT#:[id number] REPORT STATUS: Signed REPORT INITIALIZATION DATE:04/28/23 TIME: 1320 PATIENT: JONG RIVAS UNIT #: [id number] ROOM/BED: [place] [id number] : 67 AGE: 58 SEX: M ATTEND: Domenic Rainey MD ADM AUTHOR: Funmi Wiggins NP REPT SERVICE DT/TIME: 04/28/23 1320 * ALL edits or amendments must be made on the electronic/computer document * History of Present Illness Requesting Clinician: IM Reason for consult: PMR EVAL and support Chief complaint: s/p cabg with weakness PCP: PCP: Undefined Provider HPI: 57-year-old male, poor historian, PMHx diabetes on metformin, neuropathy, HTN, former smoker, PE chronic nonhealing left foot ulcer at the fifth metatarsal located posterior lateral, with no known prior cardiovascular disease. Patient transferred from [facility], referred to us from Dr. Forde for acute coronary syndrome, unstable angina, ischemic heart disease status post coronary angiogram, with findings of multivessel CAD, EF 50%. Upon further chart review patient found to have chronic cavitary lung lesion on CT chest pending QuantiFERON, left lower extremity diabetic foot ulcer concerning for osteomyelitis MRI done at [place] and will upload imaging, foot wound culture with pseudomonas, UTI with urine culture Pseudomonas treated with cefepime. Patient underwent CABG x6 on 04/27/2023. We have been consulted for PMR evaluation and support. History - Adult longitudinal Past medical history: Reports: Anemia, Diabetes mellitus, Hypertension. Past surgical history: Reports: Knee procedure. Family history: Reports: Diabetes, Heart disease. Alcohol use: Alcohol use (1-7 drinks per week) Drug use: Denies recreational drugs Smoking status for patients 13 years old or older: Never Smoker Medications: Home Medications: Medication Dose/Rte/Freq Days Qty Entered Last Max Daily Dose Reviewed GABAPENTIN (NEURONTIN) 600 PO TID 04/20/23 04/20/23 Strength: 600 MG TAB 1211 1211 POLYETHYLENE GLYCOL 17 GM PO DAILY 04/21/23 04/21/23 3350 0522 0522 (MIRALAX) Strength: 17 GRAM POWDER VANCOMYCIN (VANCOCIN) (Unknown Dose) IV 04/21/23 04/21/23 Strength: (Unknown Q12HR 0548 0558 Strength) VIAL CEFEPIME (MAXIPIME) (Unknown Dose) IV 04/21/23 04/21/23 Strength: (Unknown Q8HR 0549 0558 Strength) VIAL ASPIRIN EC (ECOTRIN) 325 MG PO DAILY 04/21/23 04/21/23 Strength: 325 MG TAB.EC 0550 0557 ATORVASTATIN (LIPITOR) 40 MG PO DAILY 04/21/23 04/21/23 Strength: 40 MG TAB 0551 0557 GLIMEPIRIDE (AMARYL) 4 MG PO BID 04/21/23 04/21/23 Strength: 4 MG TAB 0552 0557 LISINOPRIL (ZESTRIL) 20 MG PO DAILY 04/21/23 04/21/23 Strength: 20 MG TAB 0552 0558 METOPROLOL SUCC XL 12.5 MG PO BID 04/21/23 04/21/23 (TOPROL XL) 0553 0558 Strength: 25 MG TAB.SR.24H GABAPENTIN (NEURONTIN) 600 MG PO TID 04/21/23 04/21/23 Strength: 600 MG TAB 0554 0558 ENOXAPARIN (LOVENOX) 30 MG SUBQ Q12H 04/21/23 04/21/23 Strength: 30 MG/0.3 ML 0556 0557 DISP.SYRIN ENOXAPARIN (LOVENOX) 80 MG SUBQ Q12H 04/21/23 04/21/23 Strength: 80 MG/0.8 ML 0557 0557 DISP.SYRIN INDOMETHACIN SR 75 MG PO DAILY 04/22/23 (INDOCIN SR) 1551 Strength: 75 MG CAP.SA metFORMIN (GLUCOPHAGE) 1,000 MG PO BID 03/28/17 04/20/23 Strength: 1,000 MG TAB 1445 1208 glipiZIDE (GLUCOTROL) 10 MG PO DAILY 03/28/17 04/20/23 Strength: 10 MG TAB 1445 1208 LISINOPRIL (ZESTRIL) 10 MG PO DAILY 03/28/17 04/20/23 Strength: 10 MG TAB 1445 1208 ATORVASTATIN (LIPITOR) 40 MG PO BEDTIME 30 03/29/17 04/20/23 Strength: 40 MG TAB 1657 1208 ASPIRIN 325 MG PO DAILY 30 03/29/17 04/20/23 Strength: 325 MG TAB 1657 1207 Current Hospital Medications: Anti-Infective Agents Sig/Katie Start time Last Medication Dose Route Stop Time Status Admin Piperacillin Sod/ 3.375 GM Q8H 04/28 1100 AC 04/28 Tazobactam Sod IV 05/26 1059 1206 (ZOSYN 3.375GM) Sodium Chloride 100 ML (SODIUM CHLORIDE 0.9% 100 ML) Vancomycin HCl 1,500 MG PREOP ONCALL 04/28 0500 DC (VANCOMYCIN HCL) IV 04/28 2359 Sodium Chloride 500 ML (SODIUM CHLORIDE 0.9%) Doxycycline Hyclate 100 MG Q12H 04/27 1200 AC 04/28 (VIBRAMYCIN) IV 05/25 1159 1205 Sodium Chloride 100 ML (SODIUM CHLORIDE 0.9% 100 ML) Cefepime HCl 1 GM Q6H 04/21 1300 DC 04/28 (MAXIPIME) IV 05/19 1259 0551 Sodium Chloride 10 ML (SODIUM CHLORIDE) Metronidazole 500 MG Q8H 04/21 1300 DC 04/28 (FLAGYL) PO 05/19 1259 0550 Autonomic Drugs Sig/Katie Start time Last Medication Dose Route Stop Time Status Admin Ipratropium [place] 500 MCG RTQ2H PRN PRN 04/30 1438 AC (ATROVENT) INH 07/29 1437 Ipratropium [place] 500 MCG RTQ4H 04/27 1600 AC 04/28 (ATROVENT) INH 04/30 1438 1557 Epinephrine 4 MG ASDIR 04/27 144 AC (ADRENALIN CHLORIDE) IV 07/26 1444 Dextrose/Water 246 ML (DEXTROSE 5% WATER) Norepinephrine 250 ML TITRATE 04/27 144 AC Bitartrate IV 07/26 1444 (NOREPINEPHRINE 8 MG/ NS 250 ML) Blood Derivatives Sig/Katie Start time Last Medication Dose Route Stop Time Status Admin Albumin Human 250 ML ONCE ONE 04/28 1630 DC 04/28 (ALBUMINAR 5% 12.5GM/ IV 04/28 1659 1829 250ML) Albumin Human 250 ML ONCE ONE 04/27 230 DC 04/27 (ALBUMINAR 5% 12.5GM/ IV 04/27 232 2304 250ML) Albumin Human 250 ML ONCE ONE 04/27 2015 DC 04/27 (ALBUMINAR 5% 12.5GM/ IV 04/27 2044 2020 250ML) Albumin Human 25 GM ASDIR PRN 04/27 144 DC (ALBUMINAR 25%) IV 04/28 143 Blood Formation,Coagulation Sig/Katie Start time Last Medication Dose Route Stop Time Status Admin Ferrous Sulfate 325 MG DAILY 04/30 900 AC (FERROUS SULFATE) PO 07/29 0859 Alteplase, 2 MG ONCE ONE 04/28 174 DC 04/28 Recombinant I-CATHETER 04/28 174 1825 (CATHFLO ACTIVASE) Clopidogrel Bisulfate 75 MG DAILY 04/28 900 AC 04/28 (Plavix) PO 07/27 0859 0744 Cardiovascular Drugs Sig/Katie Start time Last Medication Dose Route Stop Time Status Admin Atorvastatin Calcium 40 MG 2100 04/28 2100 AC (LIPITOR) PO 05/28 2059 Metoprolol Tartrate 12.5 MG Q12HR 04/27 2100 AC (LOPRESSOR) PO 07/26 2058 Amiodarone HCl 200 MG TID 04/27 1500 AC 04/28 (CORDARONE) PO 07/26 1459 1445 Nitroglycerin/ 250 ML ASDIR 04/27 144 AC Dextrose IV 07/26 144 (NITROGLYCERIN 50,000MCG/D5W 250ML) Central Nervous System Agents Sig/Katie Start time Last Medication Dose Route Stop Time Status Admin Acetaminophen 100 ML Q6H 04/27 2115 DC 04/28 (OFIRMEV 10MG/ML) IV 04/28 929 0741 Aspirin 81 MG DAILY 04/27 2038 AC 04/28 (ASPIRIN) PO 07/26 2036 0743 Acetaminophen 650 MG Q4H PRN PRN 04/27 1445 AC (TYLENOL) PO 07/26 144 Acetaminophen 650 MG Q4H PRN PRN 04/27 1445 AC (TYLENOL) RECTAL 07/26 1444 Magnesium Sulfate 100 ML ASDIR PRN 04/27 1445 AC (MAGNESIUM SULFATE IV 07/26 1444 4GM/SWFI 100ML) Magnesium Sulfate 50 ML ASDIR PRN 04/27 1445 AC 04/28 (MAGNESIUM SULFATE IV 07/26 1444 0337 2GM/SWFI 50ML) Magnesium Sulfate/ 100 ML ASDIR PRN 04/27 1445 AC Dextrose IV 07/26 1444 (MAGNESIUM SULFATE 1GM/D5W 100ML) Oxycodone HCl 5 MG Q4H PRN PRN 04/27 1445 AC 04/28 (ROXICODONE) PO 05/02 1444 1204 Oxycodone HCl 10 MG Q4H PRN PRN 04/27 1445 AC 04/28 (ROXICODONE) PO 05/02 1444 1444 Gabapentin 200 MG TID 04/20 1500 AC 04/28 (NEURONTIN) PO 07/19 1459 1444 Electrolytic, Caloric, And Alen Sig/Katie Start time Last Medication Dose Route Stop Time Status Admin Dextrose/Water 250 ML ASDIR PRN 04/28 1830 CKD (DEXTROSE 10% IN IV 07/27 1829 WATER) Calcium Gluconate 50 ML ONCE ONE 04/28 1700 DC (Calcium Gluconate 1 IV 04/28 1709 GM/NS 50 mL (B2)) Calcium Chloride 1 GM ASDIR PRN 04/27 1445 AC (CALCIUM CHLORIDE) IV 07/26 1444 Dextrose/Water 125 ML ASDIR PRN 04/27 1445 CKD (DEXTROSE 10% IN IV 07/26 1444 WATER) Dextrose/Water 250 ML ASDIR PRN 04/27 144 CKD (DEXTROSE 10% IN IV 07/26 144 WATER) Potassium Chloride 100 ML ASDIR PRN 04/27 1445 AC (KCL 20MEQ/SWFI IV 07/26 1444 100ML) Sodium Bicarbonate 50 MEQ ASDIR PRN 04/27 1445 AC (SODIUM BICARBONATE) IV 07/26 1444 Sodium Chloride 1,000 ML .Q20H 04/27 1445 AC 04/28 (SODIUM CHLORIDE IV 07/26 1444 0341 0.9%) Sodium Chloride 250 ML Q24H 04/27 1445 AC (SODIUM CHLORIDE IV 07/26 1444 0.9%) Gastrointestinal Drugs Sig/Katie Start time Last Medication Dose Route Stop Time Status Admin Bisacodyl 10 MG ONCE PRN 04/29 1200 AC (DULCOLAX) RECTAL 07/28 1159 Magnesium Hydroxide 30 ML ONCE PRN 04/29 1200 AC (MILK OF MAGNESIA) PO Polyethylene Glycol 17 GM DAILY 04/28 900 AC 04/28 (MIRALAX) PO 07/27 0859 0745 Docusate Sodium 100 MG BID 04/27 2100 AC 04/28 (COLACE) PO 07/26 2058 0744 Sennosides 17.2 MG BEDTIME 04/27 2100 AC (Senna Lax 8.6 MG PO 07/26 2058 TABLET) Pantoprazole 40 MG DAILY@0600 04/27 1600 AC 04/28 (PROTONIX) PO 07/26 1559 0554 Ondansetron HCl 4 MG Q6H PRN PRN 04/27 1445 AC (ZOFRAN) IV 07/26 1444 Hormones And Synthetic Substit Sig/Katie Start time Last Medication Dose Route Stop Time Status Admin Insulin Human Regular 100 UNIT ASDIR 04/28 1830 CKD (HumuLIN R) IV 07/27 1829 Sodium Chloride 99 ML (SODIUM CHLORIDE 0.9%) Glucagon 1 MG ASDIR PRN 04/27 1445 AC (GLUCAGON) IM 07/26 1444 Insulin Human Regular 100 UNIT ASDIR 04/27 1445 CKD (HumuLIN R) IV 07/26 1444 Sodium Chloride 99 ML (SODIUM CHLORIDE 0.9%) Pharmaceutical Aids Sig/Katie Start time Last Medication Dose Route Stop Time Status Admin Sterile Water 2.2 ML ASDIR PRN 04/28 1745 AC (WATER FOR INJECTION) IV 04/29 1634 Respiratory Tract Agents Sig/Katie Start time Last Medication Dose Route Stop Time Status Admin Benzonatate 200 MG Q8H PRN PRN 04/28 1745 AC (TESSALON PERLE) PO 07/27 174 Skin And Mucous Membrane Agent Sig/Katie Start time Last Medication Dose Route Stop Time Status Admin Silver Sulfadiazine 1 APPLIC Q12HR 04/22 2100 AC 04/28 (SILVADENE 1% 50 GM TOPICAL 07/21 2058 1048 CREAM) Vitamins Sig/Katie Start time Last Medication Dose Route Stop Time Status Admin Cyanocobalamin 500 MCG DAILY 04/30 900 AC (Vitamin B-12 500 PO 07/29 0859 mcg tab) Allergies: Coded Allergies: No Known Allergies (04/20/23) Review of Systems Constitutional: fatigue, generalized weakness. Respiratory: Reports: MENDES (dyspnea on exertion). Denies: hemoptysis, non productive cough, parox nocturnal dyspnea, pleurisy, pleuritic pain, pneumonia, productive cough ( sputum), SOB, wheezing, other. Musculoskeletal: extremity pain, extremity swelling (ble). Neuro: gait problem, weakness. Objective VS/I O: Last Documented: Result Date Time Pulse Ox 95 04/28 113 B/P 99/62 04/28 1130 B/P Mean 76 04/28 1130 Pulse 79 04/28 113 Resp 29 04/28 113 Temp 98.8 04/28 1100 FiO2 28 04/28 418 O2 Delivery Nasal cannula 04/28 418 O2 Flow Rate 2 04/288 24 hour I O ending at 0700: 04/28 0700 04/27 1900 Intake Total 1936.00 388.00 Output Total 715 735 Balance 1221.00 -347.00 Intake, IV 1816.00 388.00 Intake, Oral 120 Output, Chest 180 130 Tube Drainage Output, Urine 535 605 PATIENT WEIGHT: Weight (lb): 213 Weight (oz): 10.05 Weight (kg): 96.900 General appearance: alert, awake Head/Eyes: atraumatic, clear cornea, EOMI, normocephalic, normal conjunctiva/ sclera, normal eyelids/periorb., PERRLA ENT: normal dentition, normal ear left, normal ear right, normal nose, normal pharynx, normal sinus Neck: full range of motion, non-tender, no bruit/NL carotids, no JVD, no lymphadenopathy, no masses or swelling, normal thyroid, supple/no meningismus Breast: symmetrical, no mass Cardiovascular: normal capillary refill, regular rate rhythm Respiratory: decreased breath sounds, clear to auscultation, no distress, no tenderness Abdomen: soft, non-tender, normal abdominal aorta, no guarding, no rebound, no distention, no mass/organomegaly, no pulsatile mass, no hernia Abdomen quadrants: LLQ normal bowel sounds, LUQ normal bowel sounds, RLQ normal bowel sounds, RUQ normal bowel sounds Genitourinary: not indicated Extremities: decreased range of motion, edema (BLE), moves all Musculoskeletal: tarp repairer -4/5 BLE -4/5 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, oriented X 3 Skin: dry, intact, no rash, all surgical incision D/I Psychiatry: normal affect, normal judgment/insight, normal mood, not homicidal, not suicidal, no hallucinations Results Findings/Data: Laboratory Tests: 04/28 04/28 04/28 04/28 04/28 1449 1346 1054 0908 0626 Chemistry Sodium (134 - 147 mEq/L) 135 Potassium (3.4 - 5.0 mEq/L) 4.5 Chloride (100 - 108 mEq/L) 110 H Carbon Dioxide (21 - 33 mEq/l) 19 L Anion Gap (0 - 20) 10 BUN (7 - 25 mg/dL) 26 H Creatinine (0.6 - 1.3 mg/dL) 1.2 Glomerular Filtr Rate (90 - 95) 70.5 L Glucose (77 - 141 mg/dL) 186 H POC Glucose (70 - 110 MG/DL) 144 H 149 H 135 H 140 H Calcium (8.0 - 10.5 mg/dL) 8.7 Ionized Calcium [place] (1.09 - 1.30 1.13 MMOL/L) Magnesium (1.6 - 2.6 mg/dL) 2.19 04/28 04/28 04/28 0211 0201 0104 Blood Gas Puncture Site Art Line O2 Saturation (90 - 100 %) 94.0 ABG pH (7.35 - 7.45) 7.365 ABG pCO2 (35.0 - 45 mmHg) 34.0 L ABG pO2 (80 - 100.0 mmHg) 73.3 L ABG HCO3 (22.0 - 26.0 MMOL/L) 19.4 L ABG Total CO2 20.5 ABG Base Excess (-4.0 - 4.0 MMOL/L) -5.9 L ABG Hematocrit (37.5 - 50.7 %) 32 L ABG Hemoglobin (12.5 - 16.9 G/DL) 10.9 L Sodium (134 - 147 mmol/L) 140 Potassium (3.4 - 5.0 mmol/L) 4.7 Chloride (100 - 108 mmol/L) 110 H Ionized Calcium (1.12 - 1.32 MMOL/L) 1.24 Lactic Acid (0.9 - 1.7 mmol/l) 0.5 L Temperature (F) 99 O2 Delivery Device Cannula Chemistry Sodium (134 - 147 mEq/L) 139 Potassium (3.4 - 5.0 mEq/L) 4.6 Chloride (100 - 108 mEq/L) 111 H Carbon Dioxide (21 - 33 mEq/l) 21 Anion Gap (0 - 20) 12 BUN (7 - 25 mg/dL) 25 Creatinine (0.6 - 1.3 mg/dL) 0.9 POC Creatinine (0.8 - 1.3 mg/dL) 0.8 Glomerular Filtr Rate (90 - 95) 99.6 H Glucose (77 - 141 mg/dL) 142 H POC Glucose (70 - 110 MG/DL) 121 H POC Glucose (mg/dL) (70 - 110 MG/DL) 138 H Calcium (8.0 - 10.5 mg/dL) 8.5 Magnesium (1.6 - 2.6 mg/dL) 1.84 Total Bilirubin (0.0 - 1.0 mg/dL) 0.40 Direct Bilirubin (0.1 - 0.3 MG/DL) 0.20 Indirect Bilirubin (MG/DL) 0.20 AST (8 - 34 IUnit/L) 42 H ALT (10 - 49 IUnit/L) 25 Total Alk Phosphatase (20 - 125 IUnit/L) 58 Total Protein (6.4 - 8.2 g/dL) 6.0 L Albumin (3.4 - 5.0 g/dL) 3.20 L Hematology WBC (4.5 - 11.0 x10 3/uL) 13.8 H RBC (4.00 - 5.60 x10 6/uL) 3.44 L Hgb (12.5 - 16.9 g/dL) 10.2 L Hct (37.5 - 50.7 %) 31.1 L MCV (81.0 - 99.0 fL) 90.4 MCH (27.0 - 33.0 pg) 29.7 MCHC (33.0 - 37.0 g/dL) 32.8 L RDW (11.5 - 14.5 %) 12.7 Plt Count (150 - 400 x10 3/uL) 260 MPV (7.0 - 9.0 fL) 10.0 H Neut % (Auto) (56.0 - 77.0 %) 88.7 H Lymph % (Auto) (14.0 - 32.0 %) 4.0 L [place] % (Auto) (4.8 - 9.0 %) 6.7 Eos % (Auto) (0.3 - 3.7 %) 0.0 L Baso % (Auto) (0.0 - 2.0 %) 0.1 Neut # (Auto) (2.0 - 7.6 x10 3/uL) 12.23 H Lymph # (Auto) (1.0 - 3.8 x10 3/uL) 0.55 L [place] # (Auto) (0.1 - 0.8 x10 3/uL) 0.92 H Eos # (Auto) (0.0 - 0.2 x10 3/uL) 0.00 Baso # (Auto) (0.0 - 0.2 x10 3/uL) 0.01 Abs Immat Gran (auto) (0.00 - 0.03 x10 3/uL) 0.07 H Immature Gran % (0.0 - 2.0 %) 0.5 Nucleated RBC % (0 - 0 %) 0.0 Nucleated RBCs # (Man) (0.0 - 0.1 x10 3/uL) 0.00 04/27 04/27 04/27 1152 2210 2004 Blood Gas Puncture Site Art Line O2 Saturation (90 - 100 %) 97.3 ABG pH (7.35 - 7.45) 7.359 ABG pCO2 (35.0 - 45 mmHg) 34.7 L ABG pO2 (80 - 100.0 mmHg) 96.9 ABG HCO3 (22.0 - 26.0 MMOL/L) 19.6 L ABG Total CO2 20.7 ABG Base Excess (-4.0 - 4.0 MMOL/L) -5.8 L ABG Hematocrit (37.5 - 50.7 %) 32 L ABG Hemoglobin (12.5 - 16.9 G/DL) 10.9 L Sodium (134 - 147 mmol/L) 140 Potassium (3.4 - 5.0 mmol/L) 4.8 Chloride (100 - 108 mmol/L) 110 H Ionized Calcium (1.12 - 1.32 MMOL/L) 1.20 Lactic Acid (0.9 - 1.7 mmol/l) 0.9 Temperature (F) 98.6 O2 Delivery Device Cannula Chemistry POC Creatinine (0.8 - 1.3 mg/dL) 1.0 POC Glucose (70 - 110 MG/DL) 145 H 157 H POC Glucose (mg/dL) (70 - 110 MG/DL) 150 H Recent Impressions: RADIOLOGY - XR CHEST 1 V 04/28 0518 Report Impression - Status: SIGNED Entered: 04/28/2023 0830 IMPRESSION: Lines and tubes, as detailed above. Pulmonary edema and small left pleural effusion again noted. Enlarged cardiomediastinal silhouette. Impression By: DR.SHEAL Janiya Jiménez M.D. RADIOLOGY - XR CHEST 1 V 04/28 1716 Report Impression - Status: SIGNED Entered: 04/28/2023 1759 IMPRESSION: Improved mild bilateral interstitial infiltrates. Trace effusions. Impression By: Zane Powers M.D. Diagnosis, Assessment Plan Consultants: cardiology, cardiovascular surgery, pulmonary Free Text DxA P Notes Free Text DxA P Notes: CABG x5 on 04/27/2023 Postop hypoxemia respiratory insufficiency Generalized weakness Impaired mobility, gait, balance and endurance Postop pain Leukocytosis Diabetes with hyperglycemia Nonhealing left leg ulcer Plan: Continue PT/OT Out of bed to chair Work on ADLs, strength, bed mobility, transfers, gait DVT prophylaxis on SCD Strict fall and safety precautions Monitor p.o. intake and nutrition Strict decubitus precautions Monitor labs Sternal precaution Current level of function Transfers min assist Patient is ambulating 75 feet min assist Recommendation: Recommend a few more therapy sessions prior to discharge Continue with PT/ OT-advancing as tolerated Patient nonfunded-no [facility] beds on rehab unit Case management for discharge plan of care Patient should do well in home environment with family assistance at 1849 RPT #:[id number] END OF REPORT [facility] 2023-04-28 12:52:00 [facility] ([facility]) Heart Failure Consultation REPORT#:[id number] REPORT STATUS: Signed REPORT INITIALIZATION DATE:04/28/23 TIME: 1252 PATIENT: JONG RIVAS UNIT #: [id number] ROOM/BED: [place] [address] : 66 AGE: 58 SEX: M ATTEND: Domenic Rainey MD ADM AUTHOR: Deniz Steward NP REPT SERVICE DT/TIME: 04/28/23 125 * ALL edits or amendments must be made on the electronic/computer document * Deniz Steward 04/28/23 1252: History of Present Illness HPI Requesting Clinician: Dr. Rainey Reason for consult: Acute on chronic HFpEF Chief complaint: Chest Pain NYHA Classification: III HPI: This is a 58 year old male with a past medical history of DM type II, hypertension PE on anticoagulation, right lung lesion, and hypertension that presented initially to [facility] as an NSTEMI, he underwent angiogram and transffered to [facility] after patient was found to have multivessel CAD. The patient underwent CABG x 5 (04/27/2023) and is now recovering. Echocardiogram was performe and showed EF 50-55% with grade I diastolic dysfunction. We were asked to evaluate and make recommendations from a heart failure standpoint. Hx Obtained From Patient History - Adult longitudinal Past medical history: Reports: Anemia, Diabetes mellitus, Hypertension. Past surgical history: Reports: Knee procedure. Family history: Reports: Diabetes, Heart disease. Alcohol use: Alcohol use (1-7 drinks per week) Drug use: Denies recreational drugs Smoking status for patients 13 years old or older: Never Smoker Allergies: Coded Allergies: No Known Allergies (04/20/23) Review of Systems Cardiovascular: Reports: chest pain (likely from incision). Denies: dyspnea on exertion, edema, orthopnea, palpitations, parox noctural dyspnea, unstable angina. Objective Physical Exam VS/I O: Vital Signs: Date Time Temp Pulse Resp B/P B/P Pulse O2 O2 Flow FiO2 Mean Ox Delivery Rate 04/28 1130 79 29 99/62 76 95 04/28 1100 103/62 77 04/28 1100 37.1 75 9 114/54 69 96 04/28 1030 96/61 74 04/28 1030 37.0 71 27 100/50 63 94 04/28 1004 74 37 106/52 66 95 04/28 1000 75 11/09 0930 37.2 70 18 106/51 66 95 11/09 0900 37.2 73 9 101/52 65 95 11/09 0800 94/57 69 11/09 0800 37.2 69 8 106/53 67 95 11/09 0730 37.1 67 23 97/48 61 95 11/09 0700 83/48 60 11/09 0700 37.0 65 15 97/49 62 95 11/09 0631 37.0 68 26 95/46 60 96 11/09 0630 37.0 64 25 88/43 60 95 11/09 0629 83/52 62 11/09 0629 37.0 66 27 95/45 58 94 11/09 0623 86/54 65 11/09 0623 37.0 67 25 98/47 61 94 11/09 0600 99/59 74 11/09 0600 37.1 66 25 117/54 71 95 11/09 0543 87/55 65 11/09 0543 37.1 68 22 99/48 62 94 11/09 0530 37.1 70 27 109/53 69 96 11/09 0520 116/61 82 11/09 0520 37.2 68 25 122/63 75 95 11/09 0514 84/54 65 11/09 0514 37.2 68 25 92/46 59 11/09 0508 72/48 55 11/09 0508 69 25 58/38 44 11/09 0500 68 33 11/09 0430 37.2 69 28 92/46 62 96 11/09 0424 37.2 69 16 112/51 68 97 11/09 0418 96 Nasal 2 28 cannula 11/09 0403 96/53 68 11/09 0403 37.2 71 27 105/47 65 97 11/09 0400 37.2 72 27 63/25 44 91 11/09 0330 37.2 74 16 115/50 69 98 11/09 0300 133/74 98 11/09 0300 37.2 81 20 140/66 83 99 11/09 0230 37.2 73 19 153/59 85 97 11/09 0200 115/70 87 11/09 0200 37.2 83 25 123/56 74 98 11/09 0130 37.2 75 22 130/55 76 98 11/09 0114 37.2 75 22 126/54 75 98 11/09 0100 116/66 86 11/09 0100 37.2 76 26 120/56 74 99 / 0030 37.2 74 22 122/56 74 100 11/09 0000 103/59 75 11/09 0000 37.2 83 18 103/51 67 99 /08 2330 37.2 73 22 107/53 68 100 /08 2300 102/60 74 11/08 2300 37.1 72 21 92/55 64 100 / 2235 114/68 85 /08 2235 37.0 74 23 113/58 75 100 11/08 2230 37.0 73 22 105/55 69 100 /08 2219 80/57 64 04/27 2219 37.0 71 19 86/48 58 98 / 2200 83/59 66 04/27 2200 36.9 73 23 98/52 65 99 04/27 2153 36.9 74 19 98/51 65 98 04/27 2147 90/61 70 04/27 2147 36.9 75 22 96/51 64 99 04/27 2130 36.8 75 25 99/53 66 99 04/27 2100 81/58 65 08 2100 36.7 74 23 83/48 58 99 04/277 84/57 65 08 2056 36.7 74 23 80/48 57 99 08 5 83/55 64 04/27 2045 36.6 74 20 88/49 61 100 04/27 2031 100 Nasal 5 40 cannula 04/27 2030 36.5 73 20 94/52 64 99 08 1999 High flow 7 nasal cannula 04/27 2000 93/58 70 04/27 2000 36.4 81 25 98/50 63 100 04/27 1930 36.3 74 21 98/49 62 99 04/27 1916 90/60 71 04/27 1916 36.4 74 24 101/50 64 100 04/27 1900 84/53 63 04/27 1900 36.4 72 21 76/50 58 98 04/27 1817 High flow 7 nasal cannula 04/27 1725 76 28 98 04/27 1725 79 98 45 04/27 1640 98 Ventilator 50 04/27 1640 81 98 50 24 hour I O ending at 0700: 04/28 0700 04/27 1900 Intake Total 1936.00 388.00 Output Total 715 735 Balance 1221.00 -347.00 Intake, IV 1816.00 388.00 Intake, Oral 120 Output, Chest 180 130 Tube Drainage Output, Urine 535 605 PATIENT WEIGHT: Weight (lb): 213 Weight (oz): 10.05 Weight (kg): 96.900 General appearance: alert, awake, oriented ENT: normal dentition, normal ear left, normal ear right Neck: full range of motion, non-tender, no bruit/NL carotids, no JVD Cardiovascular: normal capillary refill, regular rate and rhythm, normal heart sounds, BP/pulses equal bilat., no ectopy Respiratory: no distress, decreased breath sounds Abdomen: soft, non-tender Genitourinary: not indicated Extremities: moves all, no edema Musculoskeletal: full range of motion, normal inspection, no CVA tenderness, no midline vertebral tend 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, oriented X 3 Skin: dry Results Telemetry Interpretation: Sinus rhythm Diagnosis, Assessment Plan Consultants: cardiology, cardiovascular surgery, pulmonary Free Text DxA P Notes Free Text DxA P Notes: # Acute on chronic heart failure with preserved ejection fraction grade I diastolic dysfunction/ Ischemic Cardiomyopathy Patient presented with symptoms of CAD/chest pain. patient underwent successful CABG x 5 with ALAA. Patient does not appear fluid overloaded at this point. Renal function is WNL. Last TTE 2023 showed: Left ventricle: The cavity size is normal. Wall thickness is increased. Systolic function is normal. The estimated ejection fraction is 55-60%. Wall motion is normal; there are no regional wall motion abnormalities. Doppler parameters are consistent with abnormal left ventricular relaxation (grade 1 diastolic dysfunction). - trend CBC, CMP, BNP - check A1c, Lipids - Keep K>4, Mg>2 - Strict I/O, daily standing/bed weights Preload: appears euvolemic at this point , Goal net: balanced I/O Contractility No indications for inotropes, not on pressors at this time Afterload - Keep BP 130/80 continue metoprolol GDMT: RAAS/ARNI: Patient on ACEI NHB: Patient on metoprolol tartate 12.5mg MRA: consider starting spironolactone SGLT2: consider starting Farxiga in the next few days if no contraindications #Coronary Artery Disase/NSTEMI Patient without ST changes or chest pain. Continue aspirin, plavix, and statin Cardiology is following. #Anemia Hgb is 10.9, no overt bleeding Nathen Wood 04/29/23 1424: Attestations Physician Attestation Agree w/findings plan: [ ] Reviewed findings plan: Agree with the findings and plan as documented by DAVIN I have seen and examined this patient I have reviewed the history and repeated the quiñonez elements I have reviewed the progress in the clinical course since the last examination I have discussed the patient's condition with other members of the care team I have independently interpreted avaialble diagnostic studies (EKG CXR Echo Cardiac cath) * my personal evaluation is Patient is volume overloaded on physical exam CAD status post CABG x5 (RICHARDS-LAD, Seq-diag, SVG-OM1, SVG-OM2, SVG-PDA) Diabetes mellitus type 2 Nonhealing left leg ulcer/osteomyelitis No evidence of heart failure. No indications for GDMT Recommend IV Lasix for volume overload Continue DAPT with aspirin and Plavix Continue Lipitor Continue metoprolol Maintain MAP 70-90 Maintain CVP 8-10 Trend BMP, lactate I devoted my full attention for this service to the direct care of this patient and time devoted to teaching and other procedures is not included. Total time spent providing critical care (non-overlapping/non-continuous time): 35 minutes Life threatening disease due to CAD-status post CABG during this admission Invasive hemodynamic monitoring Heart failure with reduced ejection fraction: acute on chronic Organ systems impaired or failing: Cardiac at 1426 at 1458 RPT #:[id number] END OF REPORT [facility] 2023-04-28 11:00:00 [facility] ([facility]) Critical Care Progress Note REPORT#:[id number] REPORT STATUS: Signed REPORT INITIALIZATION DATE:04/28/23 TIME: 1100 PATIENT: JONG RIVAS UNIT #: [id number] ROOM[address]BED: [address] : [birth year] AGE: 58 SEX: M ATTEND: Domenic Rainey MD ADM AUTHOR: Javier Marques MD REPT SERVICE DT/TIME: 04/28/23 1100 * ALL edits or amendments must be made on the electronic/computer document * Subjective Chief complaint: CABG x 5 (RICHARDS-LAD, Seq-diag, SVG-OM1, SVG-OM2, SVG-PDA) EVH (LGSV) YULIA HPI: 58-year-old male, poor historian, PMHx diabetes on metformin, neuropathy, HTN, former smoker, chronic nonhealing left foot ulcer at the fifth metatarsal located posterior lateral found to have multivessel CAD underwent CABG x5 today. Patient received 1200 cc crystalloid, 450 Cell Saver. EBL was 300. Urine output was 400. On arrival to ICU patient was off pressors. He was on insulin 3 units drip. Patient was intubated on ventilatory support. [address] Comments: Interval history: Patient was extubated yesterday, was on nasal cannula overnight, on room air this morning. Blood pressure on the lower side but off pressors. On insulin drip. Received albumin overnight. Urine output 650 cc overnight. Left pleural chest tube output 60 cc and mediastinal chest tube 200 cc overnight. Objective General VS/I O Last Documented: Result Date Time Pulse Ox 96 04/28 631 B/P 95/46 04/28 631 B/P Mean 60 04/28 631 Temp 37.0 04/28 631 Pulse 68 04/28 631 Resp 26 04/28 631 FiO2 28 04/28 418 O2 Delivery Nasal cannula 04/28 418 O2 Flow Rate 2 04/28 418 24 hour I O ending at 0700: 04/28 0700 04/27 1900 Intake Total 1936.00 388.00 Output Total 715 735 Balance 1221.00 -347.00 Intake, IV 1816.00 388.00 Intake, Oral 120 Output, Chest 180 130 Tube Drainage Output, Urine 535 605 PATIENT WEIGHT: Weight (lb): 213 Weight (oz): 10.05 Weight (kg): 96.900 Medications: Active Meds + DC'd Last 24 Hrs Ipratropium [place] (ATROVENT) 500 MCG RTQ2H PRN PRN INH Cyanocobalamin (Vitamin B-12 500 mcg tab) 500 MCG DAILY PO Ferrous Sulfate (FERROUS SULFATE) 325 MG DAILY PO Bisacodyl (DULCOLAX) 10 MG ONCE PRN RECTAL Magnesium Hydroxide (MILK OF MAGNESIA) 30 ML ONCE PRN PO Atorvastatin Calcium (LIPITOR) 40 MG 2100 PO Piperacillin Sod/Tazobactam Sod (ZOSYN 3.375GM) 3.375 GM Q8H IV Sodium Chloride (SODIUM CHLORIDE 0.9% 100 ML) 100 ML Clopidogrel Bisulfate (Plavix) 75 MG DAILY PO Polyethylene Glycol (MIRALAX) 17 GM DAILY PO Metoprolol Tartrate (LOPRESSOR) 6.25 MG ONCE ONE PO (CAN) Vancomycin HCl (VANCOMYCIN HCL) 1,500 MG PREOP ONCALL IV (DC) Sodium Chloride (SODIUM CHLORIDE 0.9%) 500 ML Verapamil HCl (ISOPTIN) 16.6 MG .Q24H ONE IV (CAN) Heparin Sodium (Porcine) (HEPARIN SODIUM) 1,660 UNIT Sodium Bicarbonate (SODIUM BICARBONATE) 0.7 ML Nitroglycerin/Dextrose (NITROGLYCERIN 50MG/D5W 250ML) 8.3 MG Lactated Ringer's (LACTATED RINGERS) 949.5 ML Albumin Human (ALBUMINAR 5% 12.5GM/250ML) 250 ML ONCE ONE IV (DC) Acetaminophen (OFIRMEV 10MG/ML) 100 ML Q6H IV (DC) Docusate Sodium (COLACE) 100 MG BID PO Metoprolol Tartrate (LOPRESSOR) 12.5 MG Q12HR PO Sennosides (Senna Lax 8.6 MG TABLET) 17.2 MG BEDTIME PO Aspirin (ASPIRIN) 81 MG DAILY PO Albumin Human (ALBUMINAR 5% 12.5GM/250ML) 250 ML ONCE ONE IV (DC) Fentanyl Citrate (SUBLIMAZE) 25 MCG ONCE ONE IV (DC) Ipratropium [place] (ATROVENT) 500 MCG RTQ4H INH Pantoprazole (PROTONIX) 40 MG DAILY@0600 PO Amiodarone HCl (CORDARONE) 200 MG TID PO Acetaminophen (TYLENOL) 650 MG Q4H PRN PRN PO Acetaminophen (TYLENOL) 650 MG Q4H PRN PRN RECTAL Albumin Human (ALBUMINAR 25%) 25 GM ASDIR PRN IV Calcium Chloride (CALCIUM CHLORIDE) 1 GM ASDIR PRN IV Dextrose/Water (DEXTROSE 10% IN WATER) 125 ML ASDIR PRN IV (CKD) Dextrose/Water (DEXTROSE 10% IN WATER) 250 ML ASDIR PRN IV (CKD) Epinephrine (ADRENALIN CHLORIDE) 4 MG ASDIR IV Dextrose/Water (DEXTROSE 5% WATER) 246 ML Glucagon (GLUCAGON) 1 MG ASDIR PRN IM Insulin Human Regular (HumuLIN R) 100 UNIT ASDIR IV (CKD) Sodium Chloride (SODIUM CHLORIDE 0.9%) 99 ML Magnesium Sulfate (MAGNESIUM SULFATE 4GM/SWFI 100ML) 100 ML ASDIR PRN IV Magnesium Sulfate (MAGNESIUM SULFATE 2GM/SWFI 50ML) 50 ML ASDIR PRN IV Magnesium Sulfate/Dextrose (MAGNESIUM SULFATE 1GM/D5W 100ML) 100 ML ASDIR PRN IV Nitroglycerin/Dextrose (NITROGLYCERIN 50,000MCG/D5W 250ML) 250 ML ASDIR IV Norepinephrine Bitartrate (NOREPINEPHRINE 8 MG/NS 250 ML) 250 ML TITRATE IV Ondansetron HCl (ZOFRAN) 4 MG Q6H PRN PRN IV Oxycodone HCl (ROXICODONE) 5 MG Q4H PRN PRN PO Oxycodone HCl (ROXICODONE) 10 MG Q4H PRN PRN PO Potassium Chloride (KCL 20MEQ/SWFI 100ML) 100 ML ASDIR PRN IV Sodium Bicarbonate (SODIUM BICARBONATE) 50 MEQ ASDIR PRN IV Sodium Chloride (SODIUM CHLORIDE 0.9%) 1,000 ML .Q20H IV Sodium Chloride (SODIUM CHLORIDE 0.9%) 250 ML Q24H IV Rocuronium [place] (ZEMURON) 0 .STK-MED ONE IV (DC) Doxycycline Hyclate (VIBRAMYCIN) 100 MG Q12H IV Sodium Chloride (SODIUM CHLORIDE 0.9% 100 ML) 100 ML Verapamil HCl (ISOPTIN) 16.6 MG .Q24H ONE IV (DC) Heparin Sodium (Porcine) (HEPARIN SODIUM) 1,660 UNIT Sodium Bicarbonate (SODIUM BICARBONATE) 0.7 ML Nitroglycerin/Dextrose (NITROGLYCERIN 50MG/D5W 250ML) 8.3 MG Lactated Ringer's (LACTATED RINGERS) 949.5 ML Papaverine HCl (PAPAVERINE HCL) 0 .STK-MED ONE IV (DC) Sodium Chloride (SODIUM CHLORIDE 0.9%) 250 ML .STK-MED ONE IV (DC) Vancomycin HCl (Vancomycin 1,500 mg Inj (B2)) 0 .STK-MED ONE IV (DC) Magnesium Sulfate (MAGNESIUM SULFATE 2GM/SWFI 50ML) 50 ML ONCE ONE IV ( DC) Aminocaproic Acid (AMICAR) 0 .STK-MED ONE .ROUTE (DC) Fentanyl Citrate (SUBLIMAZE) 0 .STK-MED ONE .ROUTE (DC) Lidocaine HCl (XYLOCAINE) 0 .STK-MED ONE .ROUTE (DC) Ropivacaine (NAROPIN 0.5% 150 MG/30mL) 0 .STK-MED ONE .ROUTE (DC) Epinephrine HCl (EPINEPHrine 4 mg/D5W 250 mL) 250 ML .STK-MED ONE IV (DC ) Insulin Human Regular (HumuLIN R 100 UNITS/NS 100ML) 100 ML .STK-MED ONE IV (DC) Heparin Sodium (HEPARIN SODIUM) 0 .STK-MED ONE .ROUTE (DC) Magnesium Sulfate (MAGNESIUM SULFATE) 0 .STK-MED ONE .ROUTE (DC) Norepinephrine Bitartrate (NOREPINEPHRINE 8 MG/NS 250 ML) 250 ML .STK-MED ONE IV (DC) Protamine Sulfate (PROTAMINE SULFATE) 0 .STK-MED ONE IV (DC) Ropivacaine (NAROPIN 0.5% 150 MG/30mL) 0 .STK-MED ONE .ROUTE (DC) Fentanyl Citrate (SUBLIMAZE) 0 .STK-MED ONE IV (DC) Midazolam HCl (VERSED) 0 .STK-MED ONE .ROUTE (DC) Propofol (DIPRIVAN 200MG/20ML INJECTION) 20 ML .STK-MED ONE IV (DC) Dexamethasone Sodium Phosphate (DECADRON) 0 .STK-MED ONE .ROUTE (DC) Heparin Sodium (HEPARIN SODIUM) 0 .STK-MED ONE .ROUTE (DC) Lidocaine HCl (XYLOCAINE) 0 .STK-MED ONE .ROUTE (DC) Ondansetron HCl (ZOFRAN) 0 .STK-MED ONE .ROUTE (DC) Rocuronium [place] (ZEMURON) 0 .STK-MED ONE IV (DC) Albumin Human (ALBUMINAR-25%) 50 ML .STK-MED ONE IV (DC) Heparin Sodium (HEPARIN SODIUM) 0 .STK-MED ONE .ROUTE (DC) Sodium Chloride (SODIUM CHLORIDE 0.9%) 100 ML .STK-MED ONE IV (DC) Lidocaine HCl (XYLOCAINE IV) 0 .STK-MED ONE IV (DC) Magnesium Sulfate (MAGNESIUM SULFATE) 0 .STK-MED ONE IV (DC) Phenylephrine HCl (ESTRELLA-SYNEPHRINE 10MG/ML AMP) 0 .STK-MED ONE .ROUTE (DC ) Sodium Bicarbonate (SODIUM BICARBONATE) 0 .STK-MED ONE IV (DC) Sodium Biphosphate/Sodium Phosphate (FLEET SALINE ENEMA ADULT) 1 ENEMA BEDTIME RECTAL (DC) Insulin Human Lispro (HUMALOG) 7 UNIT AC SUBQ (DC) Insulin Glargine (Semglee) 15 UNIT BEDTIME SUBQ (DC) Metoprolol Tartrate (LOPRESSOR) 25 MG Q12HR PO (DC) Silver Sulfadiazine (SILVADENE 1% 50 GM CREAM) 1 APPLIC Q12HR TOPICAL Indomethacin (INDOCIN) 75 MG C BK PO (DC) Insulin Human Lispro (HUMALOG) 0 AC HS SUBQ (DC) Dextrose/Water (DEXTROSE 10% IN WATER) 125 ML ASDIR PRN IV (DC) Dextrose/Water (DEXTROSE 10% IN WATER) 250 ML ASDIR PRN IV (DC) Glucagon (GLUCAGON) 1 MG ASDIR PRN IM (DC) Cefepime HCl (MAXIPIME) 1 GM Q6H IV (DC) Sodium Chloride (SODIUM CHLORIDE) 10 ML Metronidazole (FLAGYL) 500 MG Q8H PO (DC) Sodium Hypochlorite (DAKIN'S 1/2 STRENGTH 0.25% 480 ML TOP SOLN) 1 APPLIC BID TOPICAL (DC) Aspirin (ASPIRIN) 81 MG DAILY PO (DC) Lisinopril (ZESTRIL) 10 MG DAILY PO (DC) Polyethylene Glycol (MIRALAX) 17 GM DAILY PO (DC) Atorvastatin Calcium (LIPITOR) 80 MG BEDTIME PO (DC) Gabapentin (NEURONTIN) 200 MG TID PO Acetaminophen (TYLENOL) 650 MG Q6H PRN PRN PO (DC) Docusate Sodium (COLACE) 100 MG Q12H PRN PRN PO (DC) Ondansetron HCl (ZOFRAN ODT) 4 MG Q6H PRN PRN PO (DC) Results Findings/data: Laboratory Tests 04/28 04/27 04/27 04/27 0211 2233 1736 1650 Blood Gas Puncture Site Art Line Art Line Art Line Art Line O2 Saturation (90 - 100 %) 94.0 97.3 97.8 95.2 ABG pH (7.35 - 7.45) 7.365 7.359 7.332 L 7.344 L ABG pCO2 (35.0 - 45 mmHg) 34.0 L 34.7 L 37.6 38.4 ABG pO2 (80 - 100.0 mmHg) 73.3 L 96.9 104.6 H 80.6 ABG PO2/FiO2 Ratio (mm/Hg) 209.20 161.20 ABG HCO3 (22.0 - 26.0 MMOL/L) 19.4 L 19.6 L 20.0 L 20.9 L ABG Total CO2 20.5 20.7 21.2 22.1 ABG Base Excess (-4.0 - 4.0 MMOL/L) -5.9 L -5.8 L -6.0 L -4.8 L ABG Hematocrit (37.5 - 50.7 %) 32 L 32 L 37 L 34 L ABG Hemoglobin (12.5 - 16.9 G/DL) 10.9 L 10.9 L 12.6 11.5 L Alfie Test N/A Sodium (134 - 147 mmol/L) 140 140 141 138 Potassium (3.4 - 5.0 mmol/L) 4.7 4.8 4.6 5.1 H Chloride (100 - 108 mmol/L) 110 H 110 H 109 H 109 H Ionized Calcium (1.12 - 1.32 MMOL/L) 1.24 1.20 1.22 1.25 Lactic Acid (0.9 - 1.7 mmol/l) 0.5 L 0.9 Temperature (F) 99 98.6 97.5 O2 Delivery Device Cannula Cannula ET Tube Adult Vent Vent Mode CPAP/PS AC Vent Rate (/MIN) 18 FiO2 (%) 50 50 Tidal Volume (ml) 500 PEEP (cmH2O) 5 04/27 04/27 04/27 04/27 1552 1500 1422 1347 Blood Gas O2 Saturation (90 - 100 %) 97.9 99.9 100.0 99.7 ABG pH (7.35 - 7.45) 7.364 7.397 7.380 7.257 *L ABG pCO2 (35.0 - 45 mmHg) 34.2 L 38.1 41.5 45.1 H ABG pO2 (80 - 100.0 mmHg) 104.1 H 279.7 *H 381.1 *H 238.6 *H ABG HCO3 (22.0 - 26.0 MMOL/L) 19.5 L 23.4 24.6 20.1 L ABG Total CO2 20.5 24.6 25.8 21.5 ABG Base Excess (-4.0 - 4.0 MMOL/L) -5.3 L -1.2 -0.6 -6.8 L ABG Hematocrit (37.5 - 50.7 %) 27 L 28 L 29 L 33 L ABG Hemoglobin (12.5 - 16.9 G/DL) 9.3 L 9.5 L 9.7 L 11.3 L Sodium (134 - 147 mmol/L) 139 138 140 139 Potassium (3.4 - 5.0 mmol/L) 4.8 5.4 H 5.6 H 4.1 Chloride (100 - 108 mmol/L) 110 H 108 108 108 Ionized Calcium (1.12 - 1.32 MMOL/L) 1.22 1.15 1.11 L 1.14 Lactic Acid (0.9 - 1.7 mmol/l) 1.0 0.6 L < 0.3 L 0.3 L 04/27 1233 Blood Gas O2 Saturation (90 - 100 %) 99.8 ABG pH (7.35 - 7.45) 7.331 L ABG pCO2 (35.0 - 45 mmHg) 32.2 L ABG pO2 (80 - 100.0 mmHg) 252.0 *H ABG HCO3 (22.0 - 26.0 MMOL/L) 17.0 *L ABG Total CO2 18.0 ABG Base Excess (-4.0 - 4.0 MMOL/L) -8.0 L ABG Hematocrit (37.5 - 50.7 %) 32 L ABG Hemoglobin (12.5 - 16.9 G/DL) 11.0 L Sodium (134 - 147 mmol/L) 143 Potassium (3.4 - 5.0 mmol/L) 3.5 Chloride (100 - 108 mmol/L) 113 H Ionized Calcium (1.12 - 1.32 MMOL/L) 1.09 L Lactic Acid (0.9 - 1.7 mmol/l) < 0.3 L Laboratory Tests 04/28 04/28 04/28 04/28 04/28 09 0626 0211 0201 0104 Chemistry Sodium (134 - 147 mEq/L) 139 Potassium (3.4 - 5.0 mEq/L) 4.6 Chloride (100 - 108 mEq/L) 111 H Carbon Dioxide (21 - 33 mEq/l) 21 Anion Gap (0 - 20) 12 BUN (7 - 25 mg/dL) 25 Creatinine (0.6 - 1.3 mg/dL) 0.9 POC Creatinine (0.8 - 1.3 mg/dL) 0.8 Glomerular Filtr Rate (90 - 95) 99.6 H Glucose (77 - 141 mg/dL) 142 H POC Glucose (70 - 110 MG/DL) 135 H 140 H 121 H POC Glucose (mg/dL) (70 - 110 MG/DL) 138 H Calcium (8.0 - 10.5 mg/dL) 8.5 Magnesium (1.6 - 2.6 mg/dL) 1.84 Total Bilirubin (0.0 - 1.0 mg/dL) 0.40 Direct Bilirubin (0.1 - 0.3 MG/DL) 0.20 Indirect Bilirubin (MG/DL) 0.20 AST (8 - 34 IUnit/L) 42 H ALT (10 - 49 IUnit/L) 25 Total Alk Phosphatase (20 - 125 58 IUnit/L) Total Protein (6.4 - 8.2 g/dL) 6.0 L Albumin (3.4 - 5.0 g/dL) 3.20 L 04/27 04/27 04/27 04/27 04/27 2233 2215 2004 1736 1650 Chemistry POC Creatinine (0.8 - 1.3 mg/dL) 1.0 0.8 0.8 POC Glucose (70 - 110 MG/DL) 145 H 157 H POC Glucose (mg/dL) (70 - 110 MG/DL) 150 H 180 H 181 H 04/27 04/27 04/27 04/27 04/27 1643 1552 1500 1422 1347 Chemistry Sodium (134 - 147 mEq/L) 136 Potassium (3.4 - 5.0 mEq/L) 4.9 Chloride (100 - 108 mEq/L) 110 H Carbon Dioxide (21 - 33 mEq/l) 20 L Anion Gap (0 - 20) 11 BUN (7 - 25 mg/dL) 19 Creatinine (0.6 - 1.3 mg/dL) 0.9 POC Creatinine (0.8 - 1.3 mg/dL) 0.7 L 0.7 L 0.7 L 0.5 L Glomerular Filtr Rate (90 - 95) 99.6 H Glucose (77 - 141 mg/dL) 169 H POC Glucose (mg/dL) (70 - 110 MG/DL) 179 H 174 H 155 H 165 H Calcium (8.0 - 10.5 mg/dL) 8.3 Magnesium (1.6 - 2.6 mg/dL) 2.02 04/27 1233 Chemistry POC Creatinine (0.8 - 1.3 mg/dL) 0.5 L POC Glucose (mg/dL) (70 - 110 MG/DL) 139 H Laboratory Tests 04/27 04/27 04/27 04/27 1643 1554 1502 1424 Coagulation INR (0.8 - 1.2) 1.6 H PTT (Jalen) (25.0 - 39.5 Seconds) 44.3 H PT Patient/Control Mix (9.3 - 12.9 17.3 H SECONDS) Activated Coag Time (74 - 137 SEC) 147 H 482 H > 1000 H 04/27 04/27 1348 1235 Coagulation Activated Coag Time (74 - 137 SEC) 677 H 152 H Laboratory Tests 04/28 04/27 0201 1643 Hematology WBC (4.5 - 11.0 x10 3/uL) 13.8 H 20.4 H RBC (4.00 - 5.60 x10 6/uL) 3.44 L 3.76 L Hgb (12.5 - 16.9 g/dL) 10.2 L 11.4 L Hct (37.5 - 50.7 %) 31.1 L 34.0 L MCV (81.0 - 99.0 fL) 90.4 90.4 MCH (27.0 - 33.0 pg) 29.7 30.3 MCHC (33.0 - 37.0 g/dL) 32.8 L 33.5 RDW (11.5 - 14.5 %) 12.7 12.7 Plt Count (150 - 400 x10 3/uL) 260 275 MPV (7.0 - 9.0 fL) 10.0 H 10.4 H Neut % (Auto) (56.0 - 77.0 %) 88.7 H 88.5 H Lymph % (Auto) (14.0 - 32.0 %) 4.0 L 5.1 L [place] % (Auto) (4.8 - 9.0 %) 6.7 4.9 Eos % (Auto) (0.3 - 3.7 %) 0.0 L 0.2 L Baso % (Auto) (0.0 - 2.0 %) 0.1 0.3 Neut # (Auto) (2.0 - 7.6 x10 3/uL) 12.23 H 18.07 H Lymph # (Auto) (1.0 - 3.8 x10 3/uL) 0.55 L 1.04 [place] # (Auto) (0.1 - 0.8 x10 3/uL) 0.92 H 1.00 H Eos # (Auto) (0.0 - 0.2 x10 3/uL) 0.00 0.05 Baso # (Auto) (0.0 - 0.2 x10 3/uL) 0.01 0.06 Abs Immat Gran (auto) (0.00 - 0.03 x10 3/uL) 0.07 H 0.20 H Immature Gran % (0.0 - 2.0 %) 0.5 1.0 Nucleated RBC % (0 - 0 %) 0.0 0.0 Nucleated RBCs # (Man) (0.0 - 0.1 x10 3/uL) 0.00 0.00 Laboratory Tests 04/28/23 0201: [Embedded Image Not Available] 04/27/23 1643: [Embedded Image Not Available] Microbiology: 04/27 828 NASAL: MSSA Surveillance Screen - COMP 04/27 828 NASAL: MRSA DNA Surveillance Screen - COMP Radiology data Recent Impressions: RADIOLOGY - XR CHEST 1 V 04/27 1705 Report Impression - Status: SIGNED Entered: 04/27/2023 1726 IMPRESSION: Interval postoperative changes with support tubes and lines in good position. No pneumothorax. Pulmonary edema and small left pleural effusion. Impression By: [email or web address] - Indira Smiley M.D. RADIOLOGY - XR CHEST 1 V 04/28 0518 Report Impression - Status: SIGNED Entered: 04/28/2023 0830 IMPRESSION: Lines and tubes, as detailed above. Pulmonary edema and small left pleural effusion again noted. Enlarged cardiomediastinal silhouette. Impression By: Nishant JimenezD. 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 We will wean down to extubate. We will continue insulin drip to keep sugar below 200. Keep MAP above 65. Monitor chest tube output. Pain management. Monitor urine output monitor kidney function replace electrolyte as needed. Monitor H H. GI and DVT prophylaxis. Continue antibiotic per ID recommendation. 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 Case was discussed at bedside with the nursing staff and respiratory therapist. 04/28 Patient was seen this morning, he is on room air, will keep saturation of 92%. Continue incentive spirometry, pulmonary toileting, bronchodilator as needed. His blood pressure is soft, will keep MAP above 65, off pressors. Monitor urine output, replace electrolyte as needed. May consider diuresing if needed. Monitor chest tube output, will assess later in the day for possible removal. Continue insulin to keep sugar below 200. Continue antibiotic per ID recommendation. Pain management. GI and DVT prophylaxis. Out of bed to chair. PT and OT. Continue metoprolol, amiodarone, aspirin, Plavix and statin. Case was discussed at bedside with the nursing staff, respiratory therapist, pharmacist, social work faculty member and cardiothoracic surgery team. Critical care time spent in excess of 41 minutes, excluding a procedure time Consultants: cardiology, cardiovascular surgery, pulmonary at 0636 RPT #:[id number] END OF REPORT [facility] 2023-04-28 10:36:00 [facility] ([facility]) Infectious Dis. Progress Note REPORT#:[id number] REPORT STATUS: Signed REPORT INITIALIZATION DATE:04/28/23 TIME: 1036 PATIENT: JONG RIVAS UNIT #: [id number] ROOM/BED: [place] [address] : 66 AGE: 58 SEX: M ATTEND: Domenic Rainey MD ADM AUTHOR: Kirk Wakefield MD REPT SERVICE DT/TIME: 04/28/23 1036 * ALL edits or amendments must be made on the electronic/computer document * Subjective Chief complaint: Left-sided diabetic foot infection with osteomyelitis HPI: Underwent CABG x5 yesterday. Currently in CVICU. Not on any pressors. Oxygen saturation stable on room air. Working with physical therapy. Objective General VS/I O: Vital Signs Date Temp Pulse Resp B/P B/P Mean Pulse Ox FiO2 04/27-04/28 97.3-99.0 64-83 16-33 58-153/25-74 44-98 91-100 28-50 Last Documented: Result Date Time Pulse Ox 96 04/28 631 B/P 95/46 04/28 631 B/P Mean 60 04/28 631 Temp 98.6 04/28 631 Pulse 68 04/28 631 Resp 26 04/28 631 FiO2 28 04/288 O2 Delivery Nasal cannula 04/28 418 O2 Flow Rate 2 04/28 418 Vital Signs: Date Time Temp Pulse Resp B/P B/P Pulse O2 O2 Flow FiO2 Mean Ox Delivery Rate 04/28 631 98.6 68 26 95/46 60 96 04/28 630 98.6 64 25 88/43 60 95 04/28 0629 83/52 62 04/28 0629 98.6 66 27 95/45 58 94 04/28 0623 86/54 65 04/28 623 98.6 67 25 98/47 61 94 04/28 0600 99/59 74 04/28 0600 98.8 66 25 117/54 71 95 04/28 0543 87/55 65 04/28 0543 98.8 68 22 99/48 62 94 04/28 0530 98.8 70 27 109/53 69 96 04/28 0520 116/61 82 04/28 520 99.0 68 25 122/63 75 95 04/28 0514 84/54 65 11/09 0514 99.0 68 25 92/46 59 11/09 0508 72/48 55 11/09 0508 69 25 58/38 44 11/09 0500 68 33 11/09 0430 99.0 69 28 92/46 62 96 11/09 0424 99.0 69 16 112/51 68 97 11/09 0418 96 Nasal 2 28 cannula 11/09 0403 96/53 68 11/09 0403 99.0 71 27 105/47 65 97 11/09 0400 99.0 72 27 63/25 44 91 11/09 0330 99.0 74 16 115/50 69 98 11/09 0300 133/74 98 11/09 0300 99.0 81 20 140/66 83 99 11/09 0230 99.0 73 19 153/59 85 97 11/09 0200 115/70 87 11/09 0200 99.0 83 25 123/56 74 98 11/09 0130 99.0 75 22 130/55 76 98 11/09 0114 99.0 75 22 126/54 75 98 11/09 0100 116/66 86 11/09 0100 99.0 76 26 120/56 74 99 11/09 0030 99.0 74 22 122/56 74 100 11/09 0000 103/59 75 11/09 0000 99.0 83 18 103/51 67 99 11/08 2330 99.0 73 22 107/53 68 100 11/08 2300 102/60 74 11/08 2300 98.8 72 21 92/55 64 100 11/08 2235 114/68 85 11/08 2235 98.6 74 23 113/58 75 100 11/08 2230 98.6 73 22 105/55 69 100 11/08 2219 80/57 64 11/08 2219 98.6 71 19 86/48 58 98 11/08 2200 83/59 66 11/08 2200 98.4 73 23 98/52 65 99 11/08 2153 98.4 74 19 98/51 65 98 11/08 2147 90/61 70 11/08 2147 98.4 75 22 96/51 64 99 11/08 2130 98.2 75 25 99/53 66 99 11/08 2100 81/58 65 11/08 2100 98.1 74 23 83/48 58 99 11/08 2056 84/57 65 11/08 2056 98.1 74 23 80/48 57 99 04/27 2045 83/55 64 04/27 2045 97.9 74 20 88/49 61 100 04/27 2031 100 Nasal 5 40 cannula 04/27 2030 97.7 73 20 94/52 64 99 04/27 2000 High flow 7 nasal cannula 04/27 2000 93/58 70 04/27 2000 97.5 81 25 98/50 63 100 04/27 1930 97.3 74 21 98/49 62 99 04/27 1916 90/60 71 04/27 1916 97.5 74 24 101/50 64 100 04/27 1900 84/53 63 04/27 1900 97.5 72 21 76/50 58 98 04/27 181 High flow 7 nasal cannula 04/27 1725 76 28 98 04/27 1725 79 98 45 04/27 1640 98 Ventilator 50 04/27 1640 81 98 50 24 hour I O ending at 0700: 04/28 0700 04/27 1900 Intake Total 1936.00 388.00 Output Total 715 735 Balance 1221.00 -347.00 Intake, IV 1816.00 388.00 Intake, Oral 120 Output, Chest 180 130 Tube Drainage Output, Urine 535 605 PATIENT WEIGHT: Weight (lb): 213 Weight (oz): 10.05 Weight (kg): 96.900 Physical Exam General appearance: alert, awake, no acute distress Cardiovascular: normal heart sounds, regular rate rhythm, no murmur Respiratory: clear to auscultation, aerating well, symmetric expansion Abdomen: non-tender, soft, no distention Extremities: no cyanosis, no edema, left foot dressed; dressing clean, dry and intact; dressing not removed for exam 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 Rivas is a 58-year-old male with history of diabetes mellitus type 2, hypertension, prior smoking history, chronic PE, chronic left foot ulcer. He was admitted at [facility] with complaints of chest pain. He had a coronary angiogram done which showed multivessel CAD and EF of 50%. Patient also has a right lower lobe cavitary lung lesion, which is suspected to be from prior PE. TB QuantiFERON has been requested at the outside facility and was pending at the time of transfer. Infectious disease consultation is requested because patient has a chronic, nonhealing wound in the left lateral foot for last 7 to 8 months according to him. The wound is obviously infected and foul-smelling on exam. He had an MRI done at the outside facility, which shows osteomyelitis of the fifth metatarsal. Patient has a PICC line in place, from outside facility. I was able to review blood cultures, which were reportedly negative at 48 hours. He did have a urine culture positive for Pseudomonas. Other culture data is not available to me. Infectious disease consultation is requested for left-sided diabetic foot infection with osteomyelitis. Patient is being evaluated for possible CABG versus high risk PCI *Left-sided diabetic foot infection with osteomyelitis *Left foot cellulitis *Multivessel CAD, s/p CABG times 5 on 04/27/2023 *RLL cavitary lung lesion, question due to prior PE *Pseudomonas UTI, treated with cefepime *Diabetes mellitus type 2 *Hypertension *Peripheral neuropathy *Prior PE -Afebrile. -Oxygen saturation stable on room air. -WBC count 13.8 today; likely reactive from yesterday surgery. -ESR 87; CRP 25 on 04/21/2023. -Blood cultures 04/21/23 negative x 2. -MRSA screen negative. -Called [facility] today. Patient's blood cultures have been negative there. Wound culture is positive for MSSA and Pseudomonas ( pansensitive isolate). -Podiatry service is following. Patient is now s/p left foot I D and fifth proximal phalanx and metatarsal head resection on 04/24/2023. -Surgical cultures with growth of Pseudomonas aeruginosa, alpha Streptococcus species, many Staphylococcus epidermidis, methicillin-resistant (MRSE) and also with growth of Enterococcus raffinosus (ampicillin sensitive). -S/p CABG times 5 on 04/27/2023. Plan: -Current regimen would not cover for Enterococcus. -Discontinue cefepime and metronidazole. -Start piperacillin-tazobactam 3.375 g IV every 8 hours, which would adequately cover Pseudomonas, alpha Strep, Enterococcus. -Continue doxycycline for MRSE coverage. -Continue local wound care. -Glycemic control. -Given osteomyelitis, would plan for a 6-week course of antibiotic treatment in total. -Patient is nonfunded and may have to finish treatment with oral agents on discharge. Based on available sensitivities, a combination of Augmentin + ciprofloxacin + doxycycline would provide adequate coverage, although with associated fluoroquinolone toxicities. -Further recommendations to follow based upon clinical course. CURRENT ANTIMICROBIALS: Doxycycline, started 04/27/2023, day 1 Depression-tazobactam, started 04/28/2023, day 1 (Previously on: Cefepime + metronidazole between 04/21/2023-04/27/2023) at 1043 RPT #[id number] END OF REPORT [facility] 2023-04-28 10:05:00 [facility] Cardiothoracic Surgery Prog REPORT#:[id number] REPORT STATUS: Signed REPORT INITIALIZATION DATE:04/28/23 TIME: 1005 PATIENT: JONG RIVAS UNIT #: [id number] ROOM/BED: [place] [address] : 66 AGE: 58 SEX: M ATTEND: Domenic Rainey MD ADM AUTHOR: Viky Mclaughlin Physic REPT SERVICE DT/TIME: 04/28/23 1005 * ALL edits or amendments must be made on the electronic/computer document * General Post-op: day 1 Status post: 04/27/23 CABG x 6 (RICHARDS-LAD, Seq-Diag, SVG-ramus, SVG-OM, SVG-PDA, SVG-ALDAIR) EVH (RGSV, LGSV) ALAA PP Subjective Chief complaint: Postop CABG Currently no complaints, resting comfortable Review of Systems Constitutional: Reports: fatigue. Skin: Denies: bruising, contusion, diaphoresis, ecchymosis. Allergy/Immun: Denies: allergic reaction, itching, rhinorrhea, sneezing. Eyes: Denies: redness, discharge, visual loss/blurred. ENT: Denies: throat pain, throat swelling, tongue pain, tongue swelling, toothache. Respiratory: Reports: MENDES (dyspnea on exertion). Denies: SOB, wheezing. Cardiovascular: Denies: chest pain, edema, orthopnea, palpitations. GI: Denies: abdominal pain, nausea, vomiting. : Denies: dysuria, flank pain. Musculoskeletal: Denies: extremity pain, extremity swelling. Psych: Denies: agitation, anxiety, auditory hallucination, visual hallucination. All systems rev neg: except as marked Objective General VS/I O Last Documented: Result Date Time Pulse Ox 96 04/28 631 B/P 95/46 04/28 631 B/P Mean 60 04/28 631 Temp 98.6 04/28 631 Pulse 68 04/28 631 Resp 26 04/28 631 FiO2 28 04/28 418 O2 Delivery Nasal cannula 04/28 418 O2 Flow Rate 2 04/28 418 24 hour I O ending at 0700: 04/28 0700 04/27 1900 Intake Total 1936.00 388.00 Output Total 715 735 Balance 1221.00 -347.00 Intake, IV 1816.00 388.00 Intake, Oral 120 Output, Chest 180 130 Tube Drainage Output, Urine 535 605 PATIENT WEIGHT: Weight (lb): 213 Weight (oz): 10.05 Weight (kg): 96.900 Physical Exam General appearance: alert, awake, oriented Wound/incision: Location: Left foot ulcer HEENT: anicteric, mucosal membranes moist, pupils reactive to light Neck: full range of motion, non-tender Cardiovascular: normal heart sounds, regular rate rhythm Respiratory: aerating well, clear to auscultation, symmetric expansion, no distress Abdomen: soft, non-tender Genitourinary: no bladder distention, no flank pain Extremities: dry, moves all, normal capillary refill, normal temperature Musculoskeletal: full range of motion, painless range of motion 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 Patient transferred from [facility], referred to us from Dr. Forde for acute coronary syndrome, unstable angina, ischemic heart disease status post coronary angiogram, with findings of multivessel CAD, EF 50%. Upon further chart review patient found to have chronic cavitary lung lesion on CT chest pending QuantiFERON, left lower extremity diabetic foot ulcer concerning for osteomyelitis MRI done at [place] and will upload imaging, foot wound culture with pseudomonas, UTI with urine culture Pseudomonas treated with cefepime. Patient reports dyspnea on exertion and mild chest pain x1 year. 04/18/23: Coronary angiogram done at [facility] Left main patent LAD with high-grade and tortuous calcified lesion just after the first diagonal estimated 95% stenosis first diagonal branch with severe calcified disease 99% Ramus 90 to 95% stenosis, left circumflex artery 99% proximal stenosis OM branches severe disease as well. RCA 90%. LVEDP 11 mmHg and angiography demonstrated preserved LV systolic function, EF 50%. Inferior wall demonstrated mild hypokinesis. 1-2+ MR on LV angio. RICHARDS patent Carotid angiogram, patent carotids Assessment: CAD, severe multivessel Left foot nonhealing foot ulcer Chronic cavitary lesion noted on CT chest UTI Pseudomonas 2023 Patient seen and evaluated by Dr. Rainey CABG eval underway -Consult pulmonology, cardiology, wound care -Lovenox DVT prophylaxis Continue supportive care Further recommendations to follow 04/21/2023 CABG eval underway Patient sitting up in bed, room air, no distress. No complaints Patient with multiple complex medical issues ongoing. Timing of major CV surgery pending medical optimization. We will discuss patient at high risk CV Case conference on Tuesday. -Continue supportive care Seen and examined by Dr. Rainey 04/23/2023 CABG eval underway Patient sitting up in bed, room air, no distress. No complaints Patient with multiple complex medical issues ongoing. Timing of major CV surgery pending medical optimization. Left foot MRI complete with fifth MTP effusion/possible septic arthritis with osteomyelitis changes, no drainable soft tissue abscess. -Amputation left fifth toe and metatarsal scheduled by podiatry for tomorrow -Blood cultures 04/21/2023 no growth after 24-hour -UA negative -Lovenox DVT prophylaxis Continue supportive care Further recommendations to follow 04/24/2023 CABG eval underway Patient sitting up in bed, room air, no distress. No complaints -Amputation left fifth toe and metatarsal scheduled by podiatry for today -Blood cultures 04/21/2023 no growth after 48-hour -follow tissue culture Continue supportive care Further recommendations to follow 04/25/2023 CABG eval underway, plan for OR likely next week to allow patient some time to recover from amputation. Patient sitting up in bed, room air, no distress. No complaints S/P Amputation left fifth toe and metatarsal -Blood cultures 04/21/2023 no growth after 72-hour Encourage OOBTC, IS, PT/OT Continue supportive care Further recommendations to follow 04/26/2023 CABG eval underway, plan for OR likely next week to allow patient some time to recover from amputation. Patient sitting up in bed, room air, no distress. No complaints S/P Amputation left fifth toe and metatarsal -Blood cultures 04/21/2023 no growth after 72-hour Encourage OOBTC, IS, PT/OT Continue supportive care Further recommendations to follow 04/27/23 Patient resting comfortable. Denies complaints AAO x 3 respiratory spi: on room air. Remains sinus rhythm ID following - CABG after 04/27/23 completed ABX Carotid Dopplers showed less than 50% stenosis. Vein mapping complete CT of the chest completed Consider surgery this afternoon. Ryan brown NPO. Patient seen and Examined with Dr. Rainey. STS score calculated. 0.8% Coronary bypass graft surgery was discussed with the patient. The risk of the operation including the V score, risk of bleeding, infection, , heart attack, stroke, prolonged ICU stay, renal failure, dialysis, need for long-term rehabilitation etc. was discussed with the patient. The patient's questions were answered and the patient agreed to proceed with surgery. 04/27/23 1. Coronary artery bypass graft surgery x5 (RICHARDS to LAD, sequential to diagonal, saphenous vein to first marginal, saphenous vein to second marginal, saphenous vein to PDA). 2. Amputation of left atrial appendage. 3. Posterior pericardiotomy. 4. Endoscopic vein harvest (left greater saphenous vein). 04/28/23 On room air. POD 1 AAOx3 Patient reports pain controlled. Respiratory: on room air. Encourage IS, Deep Breathing, CXR reviewed, CT outputs- Re-access after walking. Cardiac: Remains sinus rhythm, pacing wires on standby GI: Tolerating diet, passing gas. Continue Bowel regimen : Walton in place. UO:650 Continue PT/OT Disposition: Patient lives alone. We will consult rehab. Patient DVT prophylaxis, SCDs in place Labs reveiwed- replace electrolytes as needed Patient seen and examined by Dr. Rainey. Plan of care discussed with multidisciplinary team Continue supportive care. Consultants: cardiology, cardiovascular surgery, pulmonary at 1028 at 2242 RPT #:[id number] END OF REPORT [facility] 2023-04-28 08:49:00 [facility] ([facility]) Clinical Note REPORT#:[id number] REPORT STATUS: Signed REPORT INITIALIZATION DATE:04/28/23 TIME: 0849 PATIENT: JONG RIVAS UNIT #: [id number] ROOM/BED: [place] [address] : 67 AGE: 58 SEX: M ATTEND: Domenic Rainey MD ADM AUTHOR: Mehran Jewell MD REPT SERVICE DT/TIME: 04/28/23 0849 * ALL edits or amendments must be made on the electronic/computer document * Clinical Note Note: Procedure Type: Isolated CABG Perioperative Outcome Estimate % Operative Mortality 0.807% Morbidity Mortality 6.52% Stroke 0.907% Renal Failure 1.16% Reoperation 1.62% Prolonged Ventilation 3.65% Deep Sternal Wound Infection 0.776% Long Hospital Stay (>14 days) 4.27% Short Hospital Stay (<6 days)* 45% Revised STS with complete data at 0850 RPT #:[id number] END OF REPORT [facility] 2023-04-28 04:12:00 [id number] [place] [address] PATIENT NAME: JONG RIVAS ADMIT DATE: 04/19/23 ACCOUNT NO: [id number] ROOM NO: [facility] AGE: 58 REPORT TYPE: eELECTROCARDIOGRAM REPORT SEX: M ADMITTING PHYSICIAN:Domenic Rainey MD ATTENDING PHYSICIAN:Domenic Rainey MD Order: [id number] Test Reason : Cardiac Surgery Post Op Test Date/Time Stamp: TueApr 28 2023 04:12:50 Blood Pressure : / mmHG Vent. Rate : 071 BPM Atrial Rate : 071 BPM P-R Int : 170 ms QRS Dur : 126 ms QT Int : 430 ms P-R-T Axes : 050 -19 039 degrees QTc Int : 467 ms Normal sinus rhythm Nonspecific intraventricular block Abnormal ECG When compared with ECG of 27-APR-2023 16:59, Significant changes have occurred Confirmed by CHARISSA GUERRERO MD ([id number]) on 05/19/2023 4:54:56 PM Referred By: Domenic Rainey Confirmed by:CHARISSA GUERRERO MD at 1654 PATIENT NAME: JONG IRVAS [facility] 2023-04-27 21:30:00 [id number] [address] PATIENT NAME: JONG RIVAS ADMIT DATE: 04/19/23 ACCOUNT NO: [id number] ROOM NO: G.[id number] AGE: 58 REPORT TYPE: OPERATIVE REPORT SEX: M ADMITTING PHYSICIAN:Domenic Rainey MD ATTENDING PHYSICIAN:Domenic Rainey MD OPERATION DATE: 04/22/2023 PREOPERATIVE DIAGNOSES: 1. Coronary artery disease. 2. Peripheral vascular disease. POSTOPERATIVE DIAGNOSES: 1. Coronary artery disease. 2. Peripheral vascular disease. PROCEDURE: 1. Coronary artery bypass graft surgery x5 (RICHARDS to LAD, sequential to diagonal, saphenous vein to first marginal, saphenous vein to second marginal, saphenous vein to PDA). 2. Amputation of left atrial appendage. 3. Posterior pericardiotomy. 4. Endoscopic vein harvest (left greater saphenous vein). SURGEON: Deepti Rainey M.D. SHANK SKINNER: Marcy Prince M.D. ANESTHESIOLOGIST: Dr. Hernandez. ANESTHESIA: General endotracheal anesthesia. ESTIMATED BLOOD LOSS: 100 mL. INDICATIONS: Mr. Rivas is a 58-year-old gentleman with severe triple-vessel coronary artery disease. After due preoperative consent, he was brought to the operating room today for surgical revascularization. FINDINGS: 1. Vein was harvested from the left leg using endoscopic vein harvest technique. Vein was satisfactory quality, measuring about 4 mm in size. 2. Normal sternum. 3. Good quality RICHARDS measuring 2 mm in size with excellent flow. 4. Normal pericardium without any intrapericardial adhesions and minimal intrapericardial fluid. 5. LAD 2 mm, good quality artery. 6. Diagonal 1.5 mm, slightly diseased artery. 7. Marginal 1.5 mm, slightly diseased artery. 8. Second marginal 1.5 mm, slightly diseased artery. PATIENT NAME: JONG RIVAS 9. PDA 2 mm, good quality artery. 10. Left atrial appendage was amputated 0.5 cm from the base. This was then repaired with two layers of running pledgeted 4-0 Prolene suture. Posterior pericardiotomy was performed by making a cruciate incision in the posterior pericardium. PROCEDURE IN DETAIL: Mr. Rivas was identified in the preoperative holding area and brought to the operating room and placed supine on the operating table. After induction of general endotracheal anesthesia, Walton catheter, radial arterial line, and antibiotics were placed. The patient's anterior torso and both legs were prepped and draped in standard sterile fashion. Vein was harvested from the left leg using endoscopic vein harvest technique. Following harvesting of the vein, subcutaneous tissue was closed with 2-0 Vicryl and skin with 4-0 Vicryl. Simultaneously, median sternotomy was performed. Left internal mammary artery was harvested. The patient was heparinized. Pericardium was opened longitudinally. Pericardial well was created. Cardiopulmonary bypass was instituted using ascending aorta and 3-stage cannula in the right atrium. The patient was cooled to 34 degrees centigrade. Crossclamp was applied and the heart was arrested with 1.5 liters antegrade cold blood cardioplegia. Cardioplegia was repeated at interval of 10 minutes all throughout duration of cross-clamp. We began by exploring the PDA. This was good quality artery, measuring 2 mm in size. Arteriotomy was performed with [place] blade and extended with Fitzgerald scissors. A segment of previously harvested reverse saphenous vein was sewn an end-to-side manner using 7-0 Prolene suture. Vein graft to PDA was brought along the right side of the heart and sized. Aortotomy was performed on the right aspect of the aorta using 4-mm punch. Proximal anastomosis of the PDA graft was then performed using running 6-0 Prolene suture. Next, the left atrial appendage was amputated 0.5 cm from the base. This was then repaired with two layers of running pledgeted 4-0 Prolene suture. A posterior pericardiotomy was performed by making a cruciate incision in the posterior pericardium. Next, the second marginal was explored. This was diseased artery measuring 1.5 mm in size. Arteriotomy was performed with a [place] blade and extended with Fitzgerald scissors. A segment of previously harvested reverse saphenous vein was anastomosed in end-to-side manner using running 7-0 Prolene suture. Vein graft to second marginal was brought along the left side of the heart and sized. Aortotomy was performed on the left aspect of the aorta using 4-mm punch. Proximal anastomosis of the second marginal graft was then performed running 6-0 Prolene suture. Next, the first marginal was explored. This was a slightly diseased artery measuring about 1.5 mm in size. Arteriotomy was performed with a [place] blade and extended with Fitzgerald scissors. A segment of previously harvested reverse saphenous vein was anastomosed in an end-to-side manner using 7-0 Prolene suture. Vein graft to the first marginal was then brought along the left side of the heart and sized. Aortotomy was performed on the left aspect of the heart using 4-mm punch. Proximal anastomosis of the first marginal graft was then performed using running 6-0 Prolene suture. Rewarming was commenced at this stage. Next, the diagonal was explored. This was slightly diseased artery measuring 1.75 mm in size. Arteriotomy was performed with a [place] blade and extended with Fitzgerald scissors. RICHARDS was sized. Arteriotomy was performed on the RICHARDS at appropriate site and [id number] anastomosis was created between RICHARDS and diagonal using running 8-0 Prolene suture. Finally, LAD was explored. This was a good quality artery, measuring 2 mm in size. Arteriotomy was performed with a [place] blade and extended with Fitzgerald scissors. RICHARDS was anastomosed in end-to-side manner using running 8-0 Prolene suture. RICHARDS pedicle was tacked to epicardium using two PATIENT NAME: JONG RIVAS interrupted 6-0 Prolene suture. A slit was made in the pericardium on the left aspect so as to accommodate the RICHARDS. Careful de-aeration was performed and the crossclamp was released. One ventricular wire was placed. A 28-Sami chest tube was placed in the mediastinum and a 28 angled chest tube was placed in the left pleural space. Once the patient had temperature, he was weaned off cardiopulmonary bypass with minimal inotropic support. Heparin was reversed with protamine. Decannulation was uneventful. After confirming hemostasis, the chest was closed in layers using stainless steel wires for the sternum, #1 Vicryl for the fascia, 2-0 Vicryl for subcutaneous tissue and 4-0 Vicryl for the skin. The patient was transferred to intensive care unit, intubated, in stable condition. Dictated By: Deepti Rainey MD Date Dictated: 04/27/2023 21:30:26 Date Transcribed: 04/27/2023 22:07:30 AC/MAN Receipt ID: [id number] Authenticated by Domenic Rainey MD On 04/28/2023 09:48:03 PM at 0948 PATIENT NAME: JONG RIVAS [facility] 2023-04-27 17:32:00 [facility]) Critical Care Consult Note REPORT#:[id number] REPORT STATUS: Signed REPORT INITIALIZATION DATE:04/27/23 TIME: 1731 PATIENT: JONG RIVAS UNIT #: [id number] ROOM/BED: [place] [id number] : 66 AGE: 58 SEX: M ATTEND: Domenic Rainey MD ADM AUTHOR: Javier Marques MD REPT SERVICE DT/TIME: 04/27/231731 * ALL edits or amendments must be made on the electronic/computer document * History of Present Illness HPI Requesting clinician: Dr Rainey Reason for consult: Critical care management Chief complaint: CABG x 5 (RICHARDS-LAD, Seq-diag, SVG-OM1, SVG-OM2, SVG-PDA) EVH (LGSV) ALAA PCP: PCP: Undefined Provider HPI: 58-year-old male, poor historian, PMHx diabetes on metformin, neuropathy, HTN, former smoker, chronic nonhealing left foot ulcer at the fifth metatarsal located posterior lateral found to have multivessel CAD underwent CABG x5 today. Patient received 1200 cc crystalloid, 450 Cell Saver. EBL was 300. Urine output was 400. On arrival to ICU patient was off pressors. He was on insulin 3 units drip. Patient was intubated on ventilatory support. [address] History - Adult longitudinal Past medical history: Reports: Anemia, Diabetes mellitus, Hypertension. Past surgical history: Reports: Knee procedure. Family history: Reports: Diabetes, Heart disease. Alcohol use: Alcohol use (1-7 drinks per week) Drug use: Denies recreational drugs Smoking status for patients 13 years old or older: Never Smoker Allergies: Coded Allergies: No Known Allergies (04/20/23) Review of Systems ROS Unable to obtain due to: Patient intubated on mechanical ventilation Objective Physical Exam VS/I O: Last Documented: Result Date Time Pulse Ox 98 04/27 0650 B/P 130/77 04/27 0650 B/P Mean 0.0 04/27 0650 O2 Delivery Room air 04/27 0650 Temp 36.9 04/27 0650 Pulse 67 04/27 0650 Resp 14 04/27 0650 O2 Flow Rate 7 04/24 1013 24 hour I O ending at 0700: 04/27 0700 04/26 1900 Intake Total 1100 Output Total Balance 1100 Intake, Oral 1100 Number Voids 5 Patient 96.9 kg Weight Weight Standing scale Measurement Method Patient Weight and BMI Weight (kg): 96.900 BMI: 34.2 Medications: Active Meds + DC'd Last 24 Hrs Ipratropium [place] (ATROVENT) 500 MCG RTQ2H PRN PRN INH Cyanocobalamin (Vitamin B-12 500 mcg tab) 500 MCG DAILY PO Ferrous Sulfate (FERROUS SULFATE) 325 MG DAILY PO Bisacodyl (DULCOLAX) 10 MG ONCE PRN RECTAL Magnesium Hydroxide (MILK OF MAGNESIA) 30 ML ONCE PRN PO Atorvastatin Calcium (LIPITOR) 40 MG 2100 PO Clopidogrel Bisulfate (Plavix) 75 MG DAILY PO Polyethylene Glycol (MIRALAX) 17 GM DAILY PO Metoprolol Tartrate (LOPRESSOR) 6.25 MG ONCE ONE PO (CAN) Vancomycin HCl (VANCOMYCIN HCL) 1,500 MG PREOP ONCALL IV (DC) Sodium Chloride (SODIUM CHLORIDE 0.9%) 500 ML Verapamil HCl (ISOPTIN) 16.6 MG .Q24H ONE IV (CAN) Heparin Sodium (Porcine) (HEPARIN SODIUM) 1,660 UNIT Sodium Bicarbonate (SODIUM BICARBONATE) 0.7 ML Nitroglycerin/Dextrose (NITROGLYCERIN 50MG/D5W 250ML) 8.3 MG Lactated Ringer's (LACTATED RINGERS) 949.5 ML Docusate Sodium (COLACE) 100 MG BID PO Metoprolol Tartrate (LOPRESSOR) 12.5 MG Q12HR PO Sennosides (Senna Lax 8.6 MG TABLET) 17.2 MG BEDTIME PO Aspirin (ASPIRIN) 81 MG DAILY PO Ipratropium [place] (ATROVENT) 500 MCG RTQ4H INH Pantoprazole (PROTONIX) 40 MG DAILY@0600 PO Amiodarone HCl (CORDARONE) 200 MG TID PO Acetaminophen (TYLENOL) 650 MG Q4H PRN PRN PO Acetaminophen (TYLENOL) 650 MG Q4H PRN PRN RECTAL Albumin Human (ALBUMINAR 25%) 25 GM ASDIR PRN IV Calcium Chloride (CALCIUM CHLORIDE) 1 GM ASDIR PRN IV Dextrose/Water (DEXTROSE 10% IN WATER) 125 ML ASDIR PRN IV (CKD) Dextrose/Water (DEXTROSE 10% IN WATER) 250 ML ASDIR PRN IV (CKD) Epinephrine (ADRENALIN CHLORIDE) 4 MG ASDIR IV Dextrose/Water (DEXTROSE 5% WATER) 246 ML Glucagon (GLUCAGON) 1 MG ASDIR PRN IM Insulin Human Regular (HumuLIN R) 100 UNIT ASDIR IV (CKD) Sodium Chloride (SODIUM CHLORIDE 0.9%) 99 ML Magnesium Sulfate (MAGNESIUM SULFATE 4GM/SWFI 100ML) 100 ML ASDIR PRN IV Magnesium Sulfate (MAGNESIUM SULFATE 2GM/SWFI 50ML) 50 ML ASDIR PRN IV Magnesium Sulfate/Dextrose (MAGNESIUM SULFATE 1GM/D5W 100ML) 100 ML ASDIR PRN IV Nitroglycerin/Dextrose (NITROGLYCERIN 50,000MCG/D5W 250ML) 250 ML ASDIR IV Norepinephrine Bitartrate (NOREPINEPHRINE 8 MG/NS 250 ML) 250 ML TITRATE IV Ondansetron HCl (ZOFRAN) 4 MG Q6H PRN PRN IV Oxycodone HCl (ROXICODONE) 5 MG Q4H PRN PRN PO Oxycodone HCl (ROXICODONE) 10 MG Q4H PRN PRN PO Potassium Chloride (KCL 20MEQ/SWFI 100ML) 100 ML ASDIR PRN IV Sodium Bicarbonate (SODIUM BICARBONATE) 50 MEQ ASDIR PRN IV Sodium Chloride (SODIUM CHLORIDE 0.9%) 1,000 ML .Q20H IV Sodium Chloride (SODIUM CHLORIDE 0.9%) 250 ML Q24H IV Rocuronium [place] (ZEMURON) 0 .STK-MED ONE IV (DC) Doxycycline Hyclate (VIBRAMYCIN) 100 MG Q12H IV Sodium Chloride (SODIUM CHLORIDE 0.9% 100 ML) 100 ML Verapamil HCl (ISOPTIN) 16.6 MG .Q24H ONE IV (DC) Heparin Sodium (Porcine) (HEPARIN SODIUM) 1,660 UNIT Sodium Bicarbonate (SODIUM BICARBONATE) 0.7 ML Nitroglycerin/Dextrose (NITROGLYCERIN 50MG/D5W 250ML) 8.3 MG Lactated Ringer's (LACTATED RINGERS) 949.5 ML Papaverine HCl (PAPAVERINE HCL) 0 .STK-MED ONE IV (DC) Sodium Chloride (SODIUM CHLORIDE 0.9%) 250 ML .STK-MED ONE IV (DC) Vancomycin HCl (Vancomycin 1,500 mg Inj (B2)) 0 .STK-MED ONE IV (DC) Magnesium Sulfate (MAGNESIUM SULFATE 2GM/SWFI 50ML) 50 ML ONCE ONE IV ( DC) Aminocaproic Acid (AMICAR) 0 .STK-MED ONE .ROUTE (DC) Fentanyl Citrate (SUBLIMAZE) 0 .STK-MED ONE .ROUTE (DC) Lidocaine HCl (XYLOCAINE) 0 .STK-MED ONE .ROUTE (DC) Ropivacaine (NAROPIN 0.5% 150 MG/30mL) 0 .STK-MED ONE .ROUTE (DC) Epinephrine HCl (EPINEPHrine 4 mg/D5W 250 mL) 250 ML .STK-MED ONE IV (DC ) Insulin Human Regular (HumuLIN R 100 UNITS/NS 100ML) 100 ML .STK-MED ONE IV (DC) Heparin Sodium (HEPARIN SODIUM) 0 .STK-MED ONE .ROUTE (DC) Magnesium Sulfate (MAGNESIUM SULFATE) 0 .STK-MED ONE .ROUTE (DC) Norepinephrine Bitartrate (NOREPINEPHRINE 8 MG/NS 250 ML) 250 ML .STK-MED ONE IV (DC) Protamine Sulfate (PROTAMINE SULFATE) 0 .STK-MED ONE IV (DC) Ropivacaine (NAROPIN 0.5% 150 MG/30mL) 0 .STK-MED ONE .ROUTE (DC) Fentanyl Citrate (SUBLIMAZE) 0 .STK-MED ONE IV (DC) Midazolam HCl (VERSED) 0 .STK-MED ONE .ROUTE (DC) Propofol (DIPRIVAN 200MG/20ML INJECTION) 20 ML .STK-MED ONE IV (DC) Dexamethasone Sodium Phosphate (DECADRON) 0 .STK-MED ONE .ROUTE (DC) Heparin Sodium (HEPARIN SODIUM) 0 .STK-MED ONE .ROUTE (DC) Lidocaine HCl (XYLOCAINE) 0 .STK-MED ONE .ROUTE (DC) Ondansetron HCl (ZOFRAN) 0 .STK-MED ONE .ROUTE (DC) Rocuronium [place] (ZEMURON) 0 .STK-MED ONE IV (DC) Albumin Human (ALBUMINAR-25%) 50 ML .STK-MED ONE IV (DC) Heparin Sodium (HEPARIN SODIUM) 0 .STK-MED ONE .ROUTE (DC) Sodium Chloride (SODIUM CHLORIDE 0.9%) 100 ML .STK-MED ONE IV (DC) Lidocaine HCl (XYLOCAINE IV) 0 .STK-MED ONE IV (DC) Magnesium Sulfate (MAGNESIUM SULFATE) 0 .STK-MED ONE IV (DC) Phenylephrine HCl (ESTRELLA-SYNEPHRINE 10MG/ML AMP) 0 .STK-MED ONE .ROUTE (DC ) Sodium Bicarbonate (SODIUM BICARBONATE) 0 .STK-MED ONE IV (DC) Sodium Biphosphate/Sodium Phosphate (FLEET SALINE ENEMA ADULT) 1 ENEMA BEDTIME RECTAL (DC) Insulin Human Lispro (HUMALOG) 7 UNIT AC SUBQ (DC) Insulin Glargine (Semglee) 15 UNIT BEDTIME SUBQ (DC) Metoprolol Tartrate (LOPRESSOR) 25 MG Q12HR PO (DC) Silver Sulfadiazine (SILVADENE 1% 50 GM CREAM) 1 APPLIC Q12HR TOPICAL Indomethacin (INDOCIN) 75 MG C BK PO (DC) Insulin Human Lispro (HUMALOG) 0 AC HS SUBQ (DC) Dextrose/Water (DEXTROSE 10% IN WATER) 125 ML ASDIR PRN IV (DC) Dextrose/Water (DEXTROSE 10% IN WATER) 250 ML ASDIR PRN IV (DC) Glucagon (GLUCAGON) 1 MG ASDIR PRN IM (DC) Cefepime HCl (MAXIPIME) 1 GM Q6H IV Sodium Chloride (SODIUM CHLORIDE) 10 ML Metronidazole (FLAGYL) 500 MG Q8H PO Sodium Hypochlorite (DAKIN'S 1/2 STRENGTH 0.25% 480 ML TOP SOLN) 1 APPLIC BID TOPICAL (DC) Aspirin (ASPIRIN) 81 MG DAILY PO (DC) Lisinopril (ZESTRIL) 10 MG DAILY PO (DC) Polyethylene Glycol (MIRALAX) 17 GM DAILY PO (DC) Atorvastatin Calcium (LIPITOR) 80 MG BEDTIME PO (DC) Enoxaparin Sodium (lovENOX) 40 MG Q24H SUBQ (DC) Gabapentin (NEURONTIN) 200 MG TID PO Acetaminophen (TYLENOL) 650 MG Q6H PRN PRN PO (DC) Docusate Sodium (COLACE) 100 MG Q12H PRN PRN PO (DC) Ondansetron HCl (ZOFRAN ODT) 4 MG Q6H PRN PRN PO (DC) Results Findings/Data: Laboratory Tests 04/27/23 1643: [Embedded Image Not Available] 04/27/23 0322: [Embedded Image Not Available] Laboratory Tests 04/27 04/27 04/27 04/27 1650 1552 1500 1422 Blood Gas Puncture Site Art Line O2 Saturation (90 - 100 %) 95.2 97.9 99.9 100.0 ABG pH (7.35 - 7.45) 7.344 L 7.364 7.397 7.380 ABG pCO2 (35.0 - 45 mmHg) 38.4 34.2 L 38.1 41.5 ABG pO2 (80 - 100.0 mmHg) 80.6 104.1 H 279.7 *H 381.1 *H ABG PO2/FiO2 Ratio (mm/Hg) 161.20 ABG HCO3 (22.0 - 26.0 MMOL/L) 20.9 L 19.5 L 23.4 24.6 ABG Total CO2 22.1 20.5 24.6 25.8 ABG Base Excess (-4.0 - 4.0 MMOL/L) -4.8 L -5.3 L -1.2 -0.6 ABG Hematocrit (37.5 - 50.7 %) 34 L 27 L 28 L 29 L ABG Hemoglobin (12.5 - 16.9 G/DL) 11.5 L 9.3 L 9.5 L 9.7 L Alfie Test N/A Sodium (134 - 147 mmol/L) 138 139 138 140 Potassium (3.4 - 5.0 mmol/L) 5.1 H 4.8 5.4 H 5.6 H Chloride (100 - 108 mmol/L) 109 H 110 H 108 108 Ionized Calcium (1.12 - 1.32 MMOL/L) 1.25 1.22 1.15 1.11 L Lactic Acid (0.9 - 1.7 mmol/l) 1.0 0.6 L < 0.3 L O2 Delivery Device Adult Vent Vent Mode AC Vent Rate (/MIN) 18 FiO2 (%) 50 Tidal Volume (ml) 500 PEEP (cmH2O) 5 04/27 04/27 1347 1233 Blood Gas O2 Saturation (90 - 100 %) 99.7 99.8 ABG pH (7.35 - 7.45) 7.257 *L 7.331 L ABG pCO2 (35.0 - 45 mmHg) 45.1 H 32.2 L ABG pO2 (80 - 100.0 mmHg) 238.6 *H 252.0 *H ABG HCO3 (22.0 - 26.0 MMOL/L) 20.1 L 17.0 *L ABG Total CO2 21.5 18.0 ABG Base Excess (-4.0 - 4.0 MMOL/L) -6.8 L -8.0 L ABG Hematocrit (37.5 - 50.7 %) 33 L 32 L ABG Hemoglobin (12.5 - 16.9 G/DL) 11.3 L 11.0 L Sodium (134 - 147 mmol/L) 139 143 Potassium (3.4 - 5.0 mmol/L) 4.1 3.5 Chloride (100 - 108 mmol/L) 108 113 H Ionized Calcium (1.12 - 1.32 MMOL/L) 1.14 1.09 L Lactic Acid (0.9 - 1.7 mmol/l) 0.3 L < 0.3 L Laboratory Tests 04/27 04/27 04/27 04/27 04/27 1650 1643 1552 1500 1422 Chemistry Sodium (134 - 147 mEq/L) 136 Potassium (3.4 - 5.0 mEq/L) 4.9 Chloride (100 - 108 mEq/L) 110 H Carbon Dioxide (21 - 33 mEq/l) 20 L Anion Gap (0 - 20) 11 BUN (7 - 25 mg/dL) 19 Creatinine (0.6 - 1.3 mg/dL) 0.9 POC Creatinine (0.8 - 1.3 mg/dL) 0.8 0.7 L 0.7 L 0.7 L Glomerular Filtr Rate (90 - 95) 99.6 H Glucose (77 - 141 mg/dL) 169 H POC Glucose (mg/dL) (70 - 110 MG/DL) 181 H 179 H 174 H 155 H Calcium (8.0 - 10.5 mg/dL) 8.3 Magnesium (1.6 - 2.6 mg/dL) 2.02 04/27 04/27 04/27 04/27 04/26 1347 1233 0651 0322 2022 Chemistry Sodium (134 - 147 mEq/L) 135 Potassium (3.4 - 5.0 mEq/L) 4.5 Chloride (100 - 108 mEq/L) 108 Carbon Dioxide (21 - 33 mEq/l) 23 Anion Gap (0 - 20) 8 BUN (7 - 25 mg/dL) 22 Creatinine (0.6 - 1.3 mg/dL) 0.9 POC Creatinine (0.8 - 1.3 mg/dL) 0.5 L 0.5 L Glomerular Filtr Rate (90 - 95) 99.6 H Glucose (77 - 141 mg/dL) 131 POC Glucose (70 - 110 MG/DL) 150 H 175 H POC Glucose (mg/dL) (70 - 110 MG/DL) 165 H 139 H Calcium (8.0 - 10.5 mg/dL) 9.2 Magnesium (1.6 - 2.6 mg/dL) 1.66 Laboratory Tests 04/27 04/27 04/27 04/27 04/27 1554 1502 1424 1348 1235 Coagulation Activated Coag Time (74 - 137 SEC) 147 H 482 H > 1000 H 677 H 152 H 04/27 0828 Coagulation INR (0.8 - 1.2) 1.5 H PTT (Jalen) (25.0 - 39.5 Seconds) 32.7 PT Patient/Control Mix (9.3 - 12.9 SECONDS) 16.4 H Laboratory Tests 04/27 04/27 1643 0322 Hematology WBC (4.5 - 11.0 x10 3/uL) 20.4 H 7.1 RBC (4.00 - 5.60 x10 6/uL) 3.76 L 4.00 Hgb (12.5 - 16.9 g/dL) 11.4 L 12.0 L Hct (37.5 - 50.7 %) 34.0 L 36.3 L MCV (81.0 - 99.0 fL) 90.4 90.8 MCH (27.0 - 33.0 pg) 30.3 30.0 MCHC (33.0 - 37.0 g/dL) 33.5 33.1 RDW (11.5 - 14.5 %) 12.7 12.3 Plt Count (150 - 400 x10 3/uL) 275 277 MPV (7.0 - 9.0 fL) 10.4 H 10.1 H Neut % (Auto) (56.0 - 77.0 %) 88.5 H 60.0 Lymph % (Auto) (14.0 - 32.0 %) 5.1 L 29.4 [place] % (Auto) (4.8 - 9.0 %) 4.9 7.5 Eos % (Auto) (0.3 - 3.7 %) 0.2 L 1.8 Baso % (Auto) (0.0 - 2.0 %) 0.3 0.7 Neut # (Auto) (2.0 - 7.6 x10 3/uL) 18.07 H 4.27 Lymph # (Auto) (1.0 - 3.8 x10 3/uL) 1.04 2.09 [place] # (Auto) (0.1 - 0.8 x10 3/uL) 1.00 H 0.53 Eos # (Auto) (0.0 - 0.2 x10 3/uL) 0.05 0.13 Baso # (Auto) (0.0 - 0.2 x10 3/uL) 0.06 0.05 Abs Immat Gran (auto) (0.00 - 0.03 x10 3/uL) 0.20 H 0.04 H Immature Gran % (0.0 - 2.0 %) 1.0 0.6 Nucleated RBC % (0 - 0 %) 0.0 0.0 Nucleated RBCs # (Man) (0.0 - 0.1 x10 3/uL) 0.00 0.00 Laboratory Tests 04/27 828 Serology SARS-CoV-2 Ag (Rapid) (Negative) Negative Microbiology: 04/27 828 NASAL: MSSA Surveillance Screen - COMP 04/27 828 NASAL: MRSA DNA Surveillance Screen - COMP Radiology data: Recent Impressions: RADIOLOGY - XR CHEST 1 V 04/27 1705 Report Impression - Status: SIGNED Entered: 04/27/2023 1726 IMPRESSION: Interval postoperative changes with support tubes and lines in good position. No pneumothorax. Pulmonary edema and small left pleural effusion. Impression By: [email or web address] Janiya Smiley M.D. 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 We will wean down to extubate. We will continue insulin drip to keep sugar below 200. Keep MAP above 65. Monitor chest tube output. Pain management. Monitor urine output monitor kidney function replace electrolyte as needed. Monitor H H. GI and DVT prophylaxis. Continue antibiotic per ID recommendation. 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 Case was discussed at bedside with the nursing staff and respiratory therapist. Critical care time spent in excess of 45 minutes, excluding a procedure time at 0820 RPT #:[id number] END OF REPORT [facility] 2023-04-27 16:59:00 [id number] [address] PATIENT NAME: JONG RIVAS ADMIT DATE: 04/19/23 ACCOUNT NO: [id number] ROOM NO: [id number] AGE: 58 REPORT TYPE: eELECTROCARDIOGRAM REPORT SEX: M ADMITTING PHYSICIAN:Domenic Rainey MD ATTENDING PHYSICIAN:Domenic Rainey MD Order: [id number] Test Reason : Cardiac Surgery Post Op Test Date/Time Stamp: TueApr 27 2023 16:59:54 Blood Pressure : / mmHG Vent. Rate : 088 BPM Atrial Rate : 088 BPM P-R Int : 134 ms QRS Dur : 136 ms QT Int : 410 ms P-R-T Axes : 052 -39 067 degrees QTc Int : 496 ms Normal sinus rhythm Left axis deviation Right bundle branch block Abnormal ECG When compared with ECG of 20-APR-2023 10:42, Significant changes have occurred Confirmed by CHARISSA GUERRERO MD ([id number]) on 05/19/2023 4:54:53 PM Referred By: Domenic Rainey Confirmed by:CHARISSA GUERRERO MD at 1654 PATIENT NAME: JONG RIVAS [facility] 2023-04-27 16:09:00 [facility] ([facility]) Brief Op Note REPORT#:[id number] REPORT STATUS: Signed REPORT INITIALIZATION DATE:04/27/23 TIME: 1608 PATIENT: JONG RIVAS UNIT #: [id number] ROOM/BED: [place] [address] : 67 AGE: 58 SEX: M ATTEND: Domenic Rainey MD ADM AUTHOR: Domenic Rainey MD REPT SERVICE DT/TIME: 04/27/23 1609 * ALL edits or amendments must be made on the electronic/computer document * Op/Inv Proc Note - Brief Pre-procedure diagnosis: CAD Post-procedure diagnosis: same as pre procedure dx Procedures performed: CABG x 5 (RICHARDS-LAD, Seq-diag, SVG-OM1, SVG-OM2, SVG-PDA) EVH (LGSV) ALAA Primary Surgeon: Brigid [employer] Cente[employer] And Edger(s): Marcy Prince Findings: LAD-2mm Complications: none Estimated blood loss in ml's: 100 cc Specimens removed/altered: ANNA at 0610 RPT #:[id number] END OF REPORT [facility] 2023-04-27 15:05:00 [phone] [address] PATIENT NAME: JONG RIVAS ADMIT DATE: 04/19/23 ACCOUNT NO: [id number] ROOM NO: AGE: 58 REPORT TYPE: OPERATIVE REPORT SEX: M ADMITTING PHYSICIAN:Domenic Rainey MD ATTENDING PHYSICIAN:Domenic Rainey MD OPERATION DATE: 04/27/2023 PREOPERATIVE DIAGNOSIS: Coronary artery disease. POSTOPERATIVE DIAGNOSIS: Coronary artery disease. PROCEDURE: Coronary artery bypass grafting. SURGEON: Deepti Rainey MD. SHANK SKINNER SURGEON: Marcy Prince MD. ANESTHESIA: PROCEDURE IN DETAIL: Please refer to the detailed operative note by Dr. Rainey. I assisted Dr. Rainey during all the critical portions of the surgery including conduits, .. Dictated By: Marcy Prince MD Date Dictated: 04/27/2023 15:05:28 Date Transcribed: 04/27/2023 15:16:42 ABILIO/MONISHA Gray #: [id number] Receipt ID: [id number] Authenticated by Marcy Prince MD, FACS On 04/28/2023 10:00:59 AM at 1000 PATIENT NAME: JONG RIVAS [facility] 2023-04-27 15:01:00 [facility] ([facility] Endocrinology Progress Note REPORT#:[id number] REPORT STATUS: Signed REPORT INITIALIZATION DATE:04/27/23 TIME: 1501 PATIENT: JONG RIVAS UNIT #: [id number] ROOM/BED: -1 : 67 AGE: 58 SEX: M ATTEND: Domenic Rainey MD ADM AUTHOR: Vlad Lay MD REPT SERVICE DT/TIME: 04/27/23 1501 * ALL edits or amendments must be made on the electronic/computer document * Subjective Patient reports: no complaints Objective General VS: Last Documented: Result Date Time Pulse Ox 98 04/27 0650 B/P 130/77 04/27 0650 B/P Mean 0.0 04/27 0650 O2 Delivery Room air 04/27 0650 Temp 36.9 04/27 0650 Pulse 67 04/27 0650 Resp 14 04/27 0650 O2 Flow Rate 7 04/24 1013 PATIENT WEIGHT: Weight (lb): 213 Weight (oz): 10.05 Weight (kg): 96.900 Medications: Active Meds + DC'd Last 24 Hrs Ipratropium [place] (ATROVENT) 500 MCG RTQ2H PRN PRN INH (UNV) Cyanocobalamin (Vitamin B-12 500 mcg tab) 500 MCG DAILY PO (UNV) Ferrous Sulfate (FERROUS SULFATE) 325 MG DAILY PO Bisacodyl (DULCOLAX) 10 MG ONCE PRN RECTAL Magnesium Hydroxide (MILK OF MAGNESIA) 30 ML ONCE PRN PO Atorvastatin Calcium (LIPITOR) 40 MG 2100 PO Clopidogrel Bisulfate (Plavix) 75 MG DAILY PO Polyethylene Glycol (MIRALAX) 17 GM DAILY PO Pantoprazole (PROTONIX) 40 MG DAILY@0600 PO (UNV) Metoprolol Tartrate (LOPRESSOR) 6.25 MG ONCE ONE PO (CAN) Vancomycin HCl (VANCOMYCIN HCL) 1,500 MG PREOP ONCALL IV (CKD) Sodium Chloride (SODIUM CHLORIDE 0.9%) 500 ML Verapamil HCl (ISOPTIN) 16.6 MG .Q24H ONE IV (CAN) Heparin Sodium (Porcine) (HEPARIN SODIUM) 1,660 UNIT Sodium Bicarbonate (SODIUM BICARBONATE) 0.7 ML Nitroglycerin/Dextrose (NITROGLYCERIN 50MG/D5W 250ML) 8.3 MG Lactated Ringer's (LACTATED RINGERS) 949.5 ML Docusate Sodium (COLACE) 100 MG BID PO Metoprolol Tartrate (LOPRESSOR) 12.5 MG Q12HR PO Sennosides (Senna Lax 8.6 MG TABLET) 17.2 MG BEDTIME PO (UNV) Aspirin (ASPIRIN) 81 MG DAILY PO Ipratropium [place] (ATROVENT) 500 MCG RTQ4H INH (UNV) Amiodarone HCl (CORDARONE) 200 MG TID PO Acetaminophen (TYLENOL) 650 MG Q4H PRN PRN PO (UNV) Acetaminophen (TYLENOL) 650 MG Q4H PRN PRN RECTAL (UNV) Albumin Human (ALBUMINAR 25%) 25 GM ASDIR PRN IV Calcium Chloride (CALCIUM CHLORIDE) 1 GM ASDIR PRN IV (UNV) Dextrose/Water (DEXTROSE 10% IN WATER) 125 ML ASDIR PRN IV (CKD) Dextrose/Water (DEXTROSE 10% IN WATER) 250 ML ASDIR PRN IV (CKD) Epinephrine (ADRENALIN CHLORIDE) 4 MG ASDIR IV Dextrose/Water (DEXTROSE 5% WATER) 246 ML Glucagon (GLUCAGON) 1 MG ASDIR PRN IM Insulin Human Regular (HumuLIN R) 100 UNIT ASDIR IV (CKD) Sodium Chloride (SODIUM CHLORIDE 0.9%) 99 ML Magnesium Sulfate (MAGNESIUM SULFATE 4GM/SWFI 100ML) 100 ML ASDIR PRN IV Magnesium Sulfate (MAGNESIUM SULFATE 2GM/SWFI 50ML) 50 ML ASDIR PRN IV Magnesium Sulfate/Dextrose (MAGNESIUM SULFATE 1GM/D5W 100ML) 100 ML ASDIR PRN IV Nitroglycerin/Dextrose (NITROGLYCERIN 50,000MCG/D5W 250ML) 250 ML ASDIR IV Norepinephrine Bitartrate (NOREPINEPHRINE 8 MG/NS 250 ML) 250 ML TITRATE IV Ondansetron HCl (ZOFRAN) 4 MG Q6H PRN PRN IV (UNV) Oxycodone HCl (ROXICODONE) 5 MG Q4H PRN PRN PO (UNV) Oxycodone HCl (ROXICODONE) 10 MG Q4H PRN PRN PO (UNV) Potassium Chloride (KCL 20MEQ/SWFI 100ML) 100 ML ASDIR PRN IV (UNV) Sodium Bicarbonate (SODIUM BICARBONATE) 50 MEQ ASDIR PRN IV (UNV) Sodium Chloride (SODIUM CHLORIDE 0.9%) 1,000 ML .Q20H IV Sodium Chloride (SODIUM CHLORIDE 0.9%) 250 ML Q24H IV Rocuronium [place] (ZEMURON) 0 .STK-MED ONE IV (DC) Doxycycline Hyclate (VIBRAMYCIN) 100 MG Q12H IV Sodium Chloride (SODIUM CHLORIDE 0.9% 100 ML) 100 ML Verapamil HCl (ISOPTIN) 16.6 MG .Q24H ONE IV (CKD) Heparin Sodium (Porcine) (HEPARIN SODIUM) 1,660 UNIT Sodium Bicarbonate (SODIUM BICARBONATE) 0.7 ML Nitroglycerin/Dextrose (NITROGLYCERIN 50MG/D5W 250ML) 8.3 MG Lactated Ringer's (LACTATED RINGERS) 949.5 ML Papaverine HCl (PAPAVERINE HCL) 0 .STK-MED ONE IV (DC) Sodium Chloride (SODIUM CHLORIDE 0.9%) 250 ML .STK-MED ONE IV (DC) Vancomycin HCl (Vancomycin 1,500 mg Inj (B2)) 0 .STK-MED ONE IV (DC) Magnesium Sulfate (MAGNESIUM SULFATE 2GM/SWFI 50ML) 50 ML ONCE ONE IV ( DC) Aminocaproic Acid (AMICAR) 0 .STK-MED ONE .ROUTE (DC) Fentanyl Citrate (SUBLIMAZE) 0 .STK-MED ONE .ROUTE (DC) Lidocaine HCl (XYLOCAINE) 0 .STK-MED ONE .ROUTE (DC) Ropivacaine (NAROPIN 0.5% 150 MG/30mL) 0 .STK-MED ONE .ROUTE (DC) Epinephrine HCl (EPINEPHrine 4 mg/D5W 250 mL) 250 ML .STK-MED ONE IV (DC ) Insulin Human Regular (HumuLIN R 100 UNITS/NS 100ML) 100 ML .STK-MED ONE IV (DC) Heparin Sodium (HEPARIN SODIUM) 0 .STK-MED ONE .ROUTE (DC) Magnesium Sulfate (MAGNESIUM SULFATE) 0 .STK-MED ONE .ROUTE (DC) Norepinephrine Bitartrate (NOREPINEPHRINE 8 MG/NS 250 ML) 250 ML .STK-MED ONE IV (DC) Protamine Sulfate (PROTAMINE SULFATE) 0 .STK-MED ONE IV (DC) Ropivacaine (NAROPIN 0.5% 150 MG/30mL) 0 .STK-MED ONE .ROUTE (DC) Fentanyl Citrate (SUBLIMAZE) 0 .STK-MED ONE IV (DC) Midazolam HCl (VERSED) 0 .STK-MED ONE .ROUTE (DC) Propofol (DIPRIVAN 200MG/20ML INJECTION) 20 ML .STK-MED ONE IV (DC) Dexamethasone Sodium Phosphate (DECADRON) 0 .STK-MED ONE .ROUTE (DC) Heparin Sodium (HEPARIN SODIUM) 0 .STK-MED ONE .ROUTE (DC) Lidocaine HCl (XYLOCAINE) 0 .STK-MED ONE .ROUTE (DC) Ondansetron HCl (ZOFRAN) 0 .STK-MED ONE .ROUTE (DC) Rocuronium [place] (ZEMURON) 0 .STK-MED ONE IV (DC) Albumin Human (ALBUMINAR-25%) 100 ML .STK-MED ONE IV (DC) Heparin Sodium (HEPARIN SODIUM) 0 .STK-MED ONE .ROUTE (DC) Sodium Chloride (SODIUM CHLORIDE 0.9%) 100 ML .STK-MED ONE IV (DC) Lidocaine HCl (XYLOCAINE IV) 0 .STK-MED ONE IV (DC) Magnesium Sulfate (MAGNESIUM SULFATE) 0 .STK-MED ONE IV (DC) Phenylephrine HCl (ESTRELLA-SYNEPHRINE 10MG/ML AMP) 0 .STK-MED ONE .ROUTE (DC ) Sodium Bicarbonate (SODIUM BICARBONATE) 0 .STK-MED ONE IV (DC) Sodium Biphosphate/Sodium Phosphate (FLEET SALINE ENEMA ADULT) 1 ENEMA BEDTIME RECTAL (CKD) Insulin Human Lispro (HUMALOG) 7 UNIT AC SUBQ Insulin Glargine (Semglee) 15 UNIT BEDTIME SUBQ Metoprolol Tartrate (LOPRESSOR) 25 MG Q12HR PO Silver Sulfadiazine (SILVADENE 1% 50 GM CREAM) 1 APPLIC Q12HR TOPICAL Indomethacin (INDOCIN) 75 MG C BK PO Insulin Human Lispro (HUMALOG) 0 AC HS SUBQ Dextrose/Water (DEXTROSE 10% IN WATER) 125 ML ASDIR PRN IV (CKD) Dextrose/Water (DEXTROSE 10% IN WATER) 250 ML ASDIR PRN IV (CKD) Glucagon (GLUCAGON) 1 MG ASDIR PRN IM Cefepime HCl (MAXIPIME) 1 GM Q6H IV Sodium Chloride (SODIUM CHLORIDE) 10 ML Metronidazole (FLAGYL) 500 MG Q8H PO Sodium Hypochlorite (DAKIN'S 1/2 STRENGTH 0.25% 480 ML TOP SOLN) 1 APPLIC BID TOPICAL Aspirin (ASPIRIN) 81 MG DAILY PO Lisinopril (ZESTRIL) 10 MG DAILY PO Polyethylene Glycol (MIRALAX) 17 GM DAILY PO Atorvastatin Calcium (LIPITOR) 80 MG BEDTIME PO Enoxaparin Sodium (lovENOX) 40 MG Q24H SUBQ (DC) Gabapentin (NEURONTIN) 200 MG TID PO Acetaminophen (TYLENOL) 650 MG Q6H PRN PRN PO Docusate Sodium (COLACE) 100 MG Q12H PRN PRN PO Ondansetron HCl (ZOFRAN ODT) 4 MG Q6H PRN PRN PO Physical Exam General appearance: alert, awake Diagnosis, Assessment Plan Hospital course to date: Laboratory Tests: 04/27 04/27 04/27 04/27 04/27 1424 1422 1348 1347 1235 Blood Gas O2 Saturation (90 - 100 %) 100.0 99.7 ABG pH (7.35 - 7.45) 7.380 7.257 *L ABG pCO2 (35.0 - 45 mmHg) 41.5 45.1 H ABG pO2 (80 - 100.0 mmHg) 381.1 *H 238.6 *H ABG HCO3 (22.0 - 26.0 MMOL/L) 24.6 20.1 L ABG Total CO2 25.8 21.5 ABG Base Excess (-4.0 - 4.0 -0.6 -6.8 L MMOL/L) ABG Hematocrit (37.5 - 50.7 %) 29 L 33 L ABG Hemoglobin (12.5 - 16.9 G/DL) 9.7 L 11.3 L Sodium (134 - 147 mmol/L) 140 139 Potassium (3.4 - 5.0 mmol/L) 5.6 H 4.1 Chloride (100 - 108 mmol/L) 108 108 Ionized Calcium (1.12 - 1.32 1.11 L 1.14 MMOL/L) Lactic Acid (0.9 - 1.7 mmol/l) < 0.3 L 0.3 L Chemistry POC Creatinine (0.8 - 1.3 mg/dL) 0.7 L 0.5 L POC Glucose (mg/dL) (70 - 110 155 H 165 H MG/DL) Coagulation Activated Coag Time (74 - 137 SEC) > 1000 H 677 H 152 H 04/27 04/27 04/27 04/27 1233 0828 0651 0322 Blood Gas O2 Saturation (90 - 100 %) 99.8 ABG pH (7.35 - 7.45) 7.331 L ABG pCO2 (35.0 - 45 mmHg) 32.2 L ABG pO2 (80 - 100.0 mmHg) 252.0 *H ABG HCO3 (22.0 - 26.0 MMOL/L) 17.0 *L ABG Total CO2 18.0 ABG Base Excess (-4.0 - 4.0 MMOL/L) -8.0 L ABG Hematocrit (37.5 - 50.7 %) 32 L ABG Hemoglobin (12.5 - 16.9 G/DL) 11.0 L Sodium (134 - 147 mmol/L) 143 Potassium (3.4 - 5.0 mmol/L) 3.5 Chloride (100 - 108 mmol/L) 113 H Ionized Calcium (1.12 - 1.32 MMOL/L) 1.09 L Lactic Acid (0.9 - 1.7 mmol/l) < 0.3 L Chemistry Sodium (134 - 147 mEq/L) 135 Potassium (3.4 - 5.0 mEq/L) 4.5 Chloride (100 - 108 mEq/L) 108 Carbon Dioxide (21 - 33 mEq/l) 23 Anion Gap (0 - 20) 8 BUN (7 - 25 mg/dL) 22 Creatinine (0.6 - 1.3 mg/dL) 0.9 POC Creatinine (0.8 - 1.3 mg/dL) 0.5 L Glomerular Filtr Rate (90 - 95) 99.6 H Glucose (77 - 141 mg/dL) 131 POC Glucose (70 - 110 MG/DL) 150 H POC Glucose (mg/dL) (70 - 110 MG/DL) 139 H Calcium (8.0 - 10.5 mg/dL) 9.2 Magnesium (1.6 - 2.6 mg/dL) 1.66 Coagulation INR (0.8 - 1.2) 1.5 H PTT ([place]) (25.0 - 39.5 Seconds) 32.7 PT Patient/Control Mix (9.3 - 12.9 SECONDS) 16.4 H Hematology WBC (4.5 - 11.0 x10 3/uL) 7.1 RBC (4.00 - 5.60 x10 6/uL) 4.00 Hgb (12.5 - 16.9 g/dL) 12.0 L Hct (37.5 - 50.7 %) 36.3 L MCV (81.0 - 99.0 fL) 90.8 MCH (27.0 - 33.0 pg) 30.0 MCHC (33.0 - 37.0 g/dL) 33.1 RDW (11.5 - 14.5 %) 12.3 Plt Count (150 - 400 x10 3/uL) 277 MPV (7.0 - 9.0 fL) 10.1 H Neut % (Auto) (56.0 - 77.0 %) 60.0 Lymph % (Auto) (14.0 - 32.0 %) 29.4 [place] % (Auto) (4.8 - 9.0 %) 7.5 Eos % (Auto) (0.3 - 3.7 %) 1.8 Baso % (Auto) (0.0 - 2.0 %) 0.7 Neut # (Auto) (2.0 - 7.6 x10 3/uL) 4.27 Lymph # (Auto) (1.0 - 3.8 x10 3/uL) 2.09 [place] # (Auto) (0.1 - 0.8 x10 3/uL) 0.53 Eos # (Auto) (0.0 - 0.2 x10 3/uL) 0.13 Baso # (Auto) (0.0 - 0.2 x10 3/uL) 0.05 Abs Immat Gran (auto) (0.00 - 0.03 0.04 H x10 3/uL) Immature Gran % (0.0 - 2.0 %) 0.6 Nucleated RBC % (0 - 0 %) 0.0 Nucleated RBCs # (Man) (0.0 - 0.1 x10 3/uL) 0.00 Serology SARS-CoV-2 Ag (Rapid) (Negative) Negative 04/26 1601 Chemistry POC Glucose (70 - 110 MG/DL) 175 H 164 H Microbiology: Date/Time Procedure - Status Source Growth 04/27 828 MSSA Surveillance Screen - RECD NASAL 04/27 828 MRSA DNA Surveillance Screen - RECD NASAL Laboratory Tests: 04/26 04/26 04/26 04/25 1123 0714 5322 2028 Chemistry Sodium (134 - 147 mEq/L) 137 Potassium (3.4 - 5.0 mEq/L) 4.6 Chloride (100 - 108 mEq/L) 107 Carbon Dioxide (21 - 33 mEq/l) 23 Anion Gap (0 - 20) 12 BUN (7 - 25 mg/dL) 28 H Creatinine (0.6 - 1.3 mg/dL) 1.0 Glomerular Filtr Rate (90 - 95) 87.8 L Glucose (77 - 141 mg/dL) 137 POC Glucose (70 - 110 MG/DL) 192 H 137 H 214 H Calcium (8.0 - 10.5 mg/dL) 9.2 Magnesium (1.6 - 2.6 mg/dL) 1.64 Hematology WBC (4.5 - 11.0 x10 3/uL) 7.5 RBC (4.00 - 5.60 x10 6/uL) 3.95 L Hgb (12.5 - 16.9 g/dL) 11.9 L Hct (37.5 - 50.7 %) 35.8 L MCV (81.0 - 99.0 fL) 90.6 MCH (27.0 - 33.0 pg) 30.1 MCHC (33.0 - 37.0 g/dL) 33.2 RDW (11.5 - 14.5 %) 12.4 Plt Count (150 - 400 x10 3/uL) 289 MPV (7.0 - 9.0 fL) 10.2 H Neut % (Auto) (56.0 - 77.0 %) 58.7 Lymph % (Auto) (14.0 - 32.0 %) 30.8 [place] % (Auto) (4.8 - 9.0 %) 7.8 Eos % (Auto) (0.3 - 3.7 %) 1.7 Baso % (Auto) (0.0 - 2.0 %) 0.5 Neut # (Auto) (2.0 - 7.6 x10 3/uL) 4.38 Lymph # (Auto) (1.0 - 3.8 x10 3/uL) 2.30 [place] # (Auto) (0.1 - 0.8 x10 3/uL) 0.58 Eos # (Auto) (0.0 - 0.2 x10 3/uL) 0.13 Baso # (Auto) (0.0 - 0.2 x10 3/uL) 0.04 Abs Immat Gran (auto) (0.00 - 0.03 x10 3/uL) 0.04 H Immature Gran % (0.0 - 2.0 %) 0.5 Nucleated RBC % (0 - 0 %) 0.0 Nucleated RBCs # (Man) (0.0 - 0.1 x10 3/uL) 0.00 Laboratory Tests: 04/25 04/25 04/25 04/24 1126 0739 0228 2002 Chemistry Sodium (134 - 147 mEq/L) 134 Potassium (3.4 - 5.0 mEq/L) 4.2 Chloride (100 - 108 mEq/L) 105 Carbon Dioxide (21 - 33 mEq/l) 23 Anion Gap (0 - 20) 11 BUN (7 - 25 mg/dL) 26 H Creatinine (0.6 - 1.3 mg/dL) 1.0 Glomerular Filtr Rate (90 - 95) 87.8 L Glucose (77 - 141 mg/dL) 168 H POC Glucose (70 - 110 MG/DL) 214 H 158 H 347 H Calcium (8.0 - 10.5 mg/dL) 9.2 Magnesium (1.6 - 2.6 mg/dL) 1.60 Hematology WBC (4.5 - 11.0 x10 3/uL) 11.9 H RBC (4.00 - 5.60 x10 6/uL) 3.89 L Hgb (12.5 - 16.9 g/dL) 11.6 L Hct (37.5 - 50.7 %) 34.7 L MCV (81.0 - 99.0 fL) 89.2 MCH (27.0 - 33.0 pg) 29.8 MCHC (33.0 - 37.0 g/dL) 33.4 RDW (11.5 - 14.5 %) 12.5 Plt Count (150 - 400 x10 3/uL) 316 MPV (7.0 - 9.0 fL) 10.5 H Neut % (Auto) (56.0 - 77.0 %) 80.7 H Lymph % (Auto) (14.0 - 32.0 %) 11.5 L [place] % (Auto) (4.8 - 9.0 %) 6.9 Eos % (Auto) (0.3 - 3.7 %) 0.2 L Baso % (Auto) (0.0 - 2.0 %) 0.2 Neut # (Auto) (2.0 - 7.6 x10 3/uL) 9.65 H Lymph # (Auto) (1.0 - 3.8 x10 3/uL) 1.37 [place] # (Auto) (0.1 - 0.8 x10 3/uL) 0.82 H Eos # (Auto) (0.0 - 0.2 x10 3/uL) 0.02 Baso # (Auto) (0.0 - 0.2 x10 3/uL) 0.02 Abs Immat Gran (auto) (0.00 - 0.03 x10 3/uL) 0.06 H Add Manual Diff NO Immature Gran % (0.0 - 2.0 %) 0.5 Nucleated RBC % (0 - 0 %) 0.0 Nucleated RBCs # (Man) (0.0 - 0.1 x10 3/uL) 0.00 Laboratory Tests: 04/24 04/24 04/24 04/24 04/24 1532 1108 1013 0645 0301 Chemistry Sodium (134 - 147 mEq/L) 135 Potassium (3.4 - 5.0 mEq/L) 4.3 Chloride (100 - 108 mEq/L) 106 Carbon Dioxide (21 - 33 mEq/l) 21 Anion Gap (0 - 20) 13 BUN (7 - 25 mg/dL) 18 Creatinine (0.6 - 1.3 mg/dL) 0.9 Glomerular Filtr Rate (90 - 95) 99.6 H Glucose (77 - 141 mg/dL) 113 POC Glucose (70 - 110 MG/DL) 310 H 176 H 149 H 141 H Calcium (8.0 - 10.5 mg/dL) 9.2 Magnesium (1.6 - 2.6 mg/dL) 1.68 Hematology WBC (4.5 - 11.0 x10 3/uL) 7.8 RBC (4.00 - 5.60 x10 6/uL) 3.93 L Hgb (12.5 - 16.9 g/dL) 11.7 L Hct (37.5 - 50.7 %) 35.6 L MCV (81.0 - 99.0 fL) 90.6 MCH (27.0 - 33.0 pg) 29.8 MCHC (33.0 - 37.0 g/dL) 32.9 L RDW (11.5 - 14.5 %) 12.3 Plt Count (150 - 400 x10 3/uL) 278 MPV (7.0 - 9.0 fL) 10.0 H Neut % (Auto) (56.0 - 77.0 %) 68.0 Lymph % (Auto) (14.0 - 32.0 %) 21.2 [place] % (Auto) (4.8 - 9.0 %) 7.9 Eos % (Auto) (0.3 - 3.7 %) 1.9 Baso % (Auto) (0.0 - 2.0 %) 0.4 Neut # (Auto) (2.0 - 7.6 x10 3/uL) 5.28 Lymph # (Auto) (1.0 - 3.8 x10 3/uL) 1.65 [place] # (Auto) (0.1 - 0.8 x10 3/uL) 0.61 Eos # (Auto) (0.0 - 0.2 x10 3/uL) 0.15 Baso # (Auto) (0.0 - 0.2 x10 3/uL) 0.03 Abs Immat Gran (auto) (0.00 - 0.03 0.05 H x10 3/uL) Immature Gran % (0.0 - 2.0 %) 0.6 Nucleated RBC % (0 - 0 %) 0.0 Nucleated RBCs # (Man) (0.0 - 0.1 0.00 x10 3/uL) 04/23 2019 Chemistry POC Glucose (70 - 110 MG/DL) 276 H Microbiology: Date/Time Procedure - Status Source Growth 04/24 1000 Tissue Culture - RES TISSUE 04/24 1000 Anaerobic Culture - RES TISSUE 04/24 1000 Gram Stain - RES TISSUE Laboratory Tests: 04/23 04/23 04/23 04/23 04/23 1550 1110 0703 0330 0330 Chemistry Sodium (134 - 147 mEq/L) 137 Potassium (3.4 - 5.0 mEq/L) 3.9 Chloride (100 - 108 mEq/L) 105 Carbon Dioxide (21 - 33 mEq/l) 22 Anion Gap (0 - 20) 14 BUN (7 - 25 mg/dL) 25 Creatinine (0.6 - 1.3 mg/dL) 1.1 Glomerular Filtr Rate (90 - 95) 78.3 L Glucose (77 - 141 mg/dL) 131 POC Glucose (70 - 110 MG/DL) 265 H 284 H 143 H Calcium (8.0 - 10.5 mg/dL) 9.4 Magnesium (1.6 - 2.6 mg/dL) 1.72 Hematology WBC (4.5 - 11.0 x10 3/uL) 10.1 RBC (4.00 - 5.60 x10 6/uL) 4.24 Hgb (12.5 - 16.9 g/dL) 12.7 Hct (37.5 - 50.7 %) 38.4 MCV (81.0 - 99.0 fL) 90.6 MCH (27.0 - 33.0 pg) 30.0 MCHC (33.0 - 37.0 g/dL) 33.1 RDW (11.5 - 14.5 %) 12.3 Plt Count (150 - 400 x10 3/uL) 332 MPV (7.0 - 9.0 fL) 10.3 H Neut % (Auto) (56.0 - 77.0 %) 71.8 Lymph % (Auto) (14.0 - 32.0 %) 18.0 [place] % (Auto) (4.8 - 9.0 %) 8.4 Eos % (Auto) (0.3 - 3.7 %) 0.8 Baso % (Auto) (0.0 - 2.0 %) 0.4 Neut # (Auto) (2.0 - 7.6 x10 3/uL) 7.28 Lymph # (Auto) (1.0 - 3.8 x10 3/uL) 1.82 [place] # (Auto) (0.1 - 0.8 x10 3/uL) 0.85 H Eos # (Auto) (0.0 - 0.2 x10 3/uL) 0.08 Baso # (Auto) (0.0 - 0.2 x10 3/uL) 0.04 Abs Immat Gran (auto) (0.00 - 0.03 0.06 H x10 3/uL) Immature Gran % (0.0 - 2.0 %) 0.6 Nucleated RBC % (0 - 0 %) 0.0 Nucleated RBCs # (Man) (0.0 - 0.1 0.00 x10 3/uL) 04/23 04/22 0252 1 Chemistry POC Glucose (70 - 110 MG/DL) 197 H Toxicology Vancomycin Trough (10.0 - 20.0 mcg/mL) 12.1 Recent Impressions: MAGNETIC RESONANCE IMAGING - MRI LOW EXT W/O CONT LT 04/23 1034 Report Impression - Status: SIGNED Entered: 04/23/2023 1207 IMPRESSION: 5th MTP effusion/possible septic arthritis with osteomyelitis changes as detailed. No drainable soft tissue abscess. Impression By: [email or web address] - Aaron Lemuel Goldberg M.D. Laboratory Tests: 04/22 04/21 04/21 0421 1957 1555 Chemistry Sodium (134 - 147 mEq/L) 139 Potassium (3.4 - 5.0 mEq/L) 4.3 Chloride (100 - 108 mEq/L) 108 Carbon Dioxide (21 - 33 mEq/l) 22 Anion Gap (0 - 20) 14 BUN (7 - 25 mg/dL) 17 Creatinine (0.6 - 1.3 mg/dL) 0.9 Glomerular Filtr Rate (90 - 95) 99.6 H Glucose (77 - 141 mg/dL) 124 POC Glucose (70 - 110 MG/DL) 232 H 133 H Calcium (8.0 - 10.5 mg/dL) 9.0 Hematology WBC (4.5 - 11.0 x10 3/uL) 8.6 RBC (4.00 - 5.60 x10 6/uL) 3.89 L Hgb (12.5 - 16.9 g/dL) 11.5 L Hct (37.5 - 50.7 %) 36.2 L MCV (81.0 - 99.0 fL) 93.1 MCH (27.0 - 33.0 pg) 29.6 MCHC (33.0 - 37.0 g/dL) 31.8 L RDW (11.5 - 14.5 %) 12.5 Plt Count (150 - 400 x10 3/uL) 301 MPV (7.0 - 9.0 fL) 10.1 H Neut % (Auto) (56.0 - 77.0 %) 66.1 Lymph % (Auto) (14.0 - 32.0 %) 23.5 [place] % (Auto) (4.8 - 9.0 %) 7.4 Eos % (Auto) (0.3 - 3.7 %) 2.0 Baso % (Auto) (0.0 - 2.0 %) 0.6 Neut # (Auto) (2.0 - 7.6 x10 3/uL) 5.66 Lymph # (Auto) (1.0 - 3.8 x10 3/uL) 2.01 [place] # (Auto) (0.1 - 0.8 x10 3/uL) 0.63 Eos # (Auto) (0.0 - 0.2 x10 3/uL) 0.17 Baso # (Auto) (0.0 - 0.2 x10 3/uL) 0.05 Abs Immat Gran (auto) (0.00 - 0.03 x10 3/uL) 0.03 Immature Gran % (0.0 - 2.0 %) 0.4 Nucleated RBC % (0 - 0 %) 0.0 Nucleated RBCs # (Man) (0.0 - 0.1 x10 3/uL) 0.00 Microbiology: Date/Time Procedure - Status Source Growth 04/21 153 Blood Culture - RECD BLOOD 04/21 153 Blood Culture Gram Stain - RECD BLOOD 04/21 153 Blood Culture - RECD BLOOD 04/21 153 Blood Culture Gram Stain - RECD BLOOD Recent Impressions: RADIOLOGY - XR FOOT 3 + V LT 04/21 1423 Report Impression - Status: SIGNED Entered: 04/21/2023 1438 IMPRESSION: Interval progression of osteomyelitis involving the fifth metatarsal head and fifth proximal phalanx base about the MTP joint since the prior study from 04/16/2023. Impression By: [email or web address] - Brett Elizabeth M.D. Laboratory Tests: 04/21 04/21 04/21 04/21 1128 0931 0534 0132 Chemistry Sodium (134 - 147 mEq/L) 137 Potassium (3.4 - 5.0 mEq/L) 4.0 Chloride (100 - 108 mEq/L) 105 Carbon Dioxide (21 - 33 mEq/l) 24 Anion Gap (0 - 20) 12 BUN (7 - 25 mg/dL) 18 Creatinine (0.6 - 1.3 mg/dL) 1.1 Glomerular Filtr Rate (90 - 95) 78.3 L Glucose (77 - 141 mg/dL) 181 H POC Glucose (70 - 110 MG/DL) 172 H Calcium (8.0 - 10.5 mg/dL) 9.3 Magnesium (1.6 - 2.6 mg/dL) 1.61 C-Reactive Protein (<10.0 mg/L) 25.0 H Hematology WBC (4.5 - 11.0 x10 3/uL) 7.0 RBC (4.00 - 5.60 x10 6/uL) 4.05 Hgb (12.5 - 16.9 g/dL) 12.0 L Hct (37.5 - 50.7 %) 36.5 L MCV (81.0 - 99.0 fL) 90.1 MCH (27.0 - 33.0 pg) 29.6 MCHC (33.0 - 37.0 g/dL) 32.9 L RDW (11.5 - 14.5 %) 12.0 Plt Count (150 - 400 x10 3/uL) 305 MPV (7.0 - 9.0 fL) 10.5 H Neut % (Auto) (56.0 - 77.0 %) 61.3 Lymph % (Auto) (14.0 - 32.0 %) 27.0 [place] % (Auto) (4.8 - 9.0 %) 8.9 Eos % (Auto) (0.3 - 3.7 %) 1.7 Baso % (Auto) (0.0 - 2.0 %) 0.7 Neut # (Auto) (2.0 - 7.6 x10 3/uL) 4.28 Lymph # (Auto) (1.0 - 3.8 x10 3/uL) 1.89 [place] # (Auto) (0.1 - 0.8 x10 3/uL) 0.62 Eos # (Auto) (0.0 - 0.2 x10 3/uL) 0.12 Baso # (Auto) (0.0 - 0.2 x10 3/uL) 0.05 Abs Immat Gran (auto) (0.00 - 0.03 x10 3/uL) 0.03 Immature Gran % (0.0 - 2.0 %) 0.4 Nucleated RBC % (0 - 0 %) 0.0 Nucleated RBCs # (Man) (0.0 - 0.1 x10 3/uL) 0.00 ESR Westergren (0 - 15 mm/hr) 87 H Urines Urine Color (YEL/STRAW) YELLOW Urine Appearance (CLEAR) CLEAR Urine pH (5.0 - 7.0) 5.0 Ur Specific [place] (1.005 - 1.030) 1.011 Urine Protein (NEGATIVE) NEGATIVE Urine Glucose (UA) (NEGATIVE) 3+ H Urine Ketones (NEGATIVE) NEGATIVE Urine Blood (NEGATIVE) NEGATIVE Urine Nitrite (NEGATIVE) NEGATIVE Urine Bilirubin (NEGATIVE) NEGATIVE Urine Urobilinogen (0.2 - 1.0 mg/dL) 0.2 Ur Leukocyte Esterase (NEGATIVE) NEGATIVE Urine RBC (0 - 3 RBC/HPF) 0-3 Urine WBC (0 - 3 WBC/HPF) 0-3 Ur Squamous Epith Cells (NONE SEEN /HPF) 0-5 Ur Transition Epith Cell (NONE SEEN /HPF) TRACE Urine Bacteria (NONE SEEN /HPF) TRACE Urine Mucus (NONE SEEN /LPF) TRACE 04/20 Chemistry POC Glucose (70 - 110 MG/DL) 325 H Coagulation INR (0.8 - 1.2) 1.3 H PTT ([place]) (25.0 - 39.5 Seconds) 39.3 PT Patient/Control Mix (9.3 - 12.9 SECONDS) 14.5 H Microbiology: Date/Time Procedure - Status Source Growth 04/21 1535 Blood Culture - RECD BLOOD 04/21 1535 Blood Culture Gram Stain - RECD BLOOD 04/21 1535 Blood Culture - RECD BLOOD 04/21 1535 Blood Culture Gram Stain - RECD BLOOD Recent Impressions: RADIOLOGY - XR FOOT 3 + V LT 04/21 1423 Report Impression - Status: SIGNED Entered: 04/21/2023 1438 IMPRESSION: Interval progression of osteomyelitis involving the fifth metatarsal head and fifth proximal phalanx base about the MTP joint since the prior study from 04/16/2023. Impression By: [email or web address] - Brett Elizabeth M.D. 1. 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 2. Coronary artery disease. 6 3. S/P CABG 4. Ex-smoker 5.Left foot wound 6.Hypertension. 7. Hyperlipidemia Blood sugar 150-200 mg/dL. HbA1c 8.3%. Lipids elevated.This Adjust insulin dose. Insulin drip post op. Diabetes dietary education. at 1503 RPT #:[id number] END OF REPORT [facility] 2023-04-27 10:49:00 [facility]) Cardiology Progress Note REPORT#:[id number] REPORT STATUS: Signed REPORT INITIALIZATION DATE:04/27/23 TIME: 104 PATIENT: JONG RIVAS UNIT #: [id number] ROOM/BED: 3343-1 : 66 AGE: 58 SEX: M ATTEND: Domenic Rainey MD ADM AUTHOR: Noemí Nieto MD REPT SERVICE DT/TIME: 04/27/23 1049 * ALL edits or amendments must be made on the electronic/computer document * Subjective HPI: 58-year-old male with past medical history of [id number] diabetes mellitus, hypertension, history of PE previously on anticoagulation, right lung cavitary lesion was seen at [facility] on 04/15/2023 with a complaint of shortness of breath for few weeks and chest pain. Patient was found to have initial troponin I of 0.045. In addition, his BNP was thousand 54 pg/mL. Initial EKG showed normal sinus rhythm with right bundle branch block. He was deemed to have NSTEMI. Subsequently, he underwent coronary angiogram via right femoral approach and was found to have multivessel CAD including severe proximal LAD stenosis, severe ostial to proximal circumflex stenosis and a dominant vessel, and nondominant RCA. LVEDP was 13 mmHg. During hospital stay, he was also diagnosed with left diabetic foot infection. Subsequently MRI of the foot showed osteomyelitis of the left fifth toe. Patient was started on IV antibiotics. Cultures grew Pseudomonas aeruginosa and Staph aureus. In addition, patient was deemed to have UTI. Patient was transferred to [facility] for further work-up including possible evaluation for CABG versus high risk PCI. Patient seen this afternoon. Denies any chest pain or shortness of breath at this point. Overall, poor historian. Not able to tell what medications he takes at home. EKG done today 2023 showed normal sinus rhythm with right bundle branch block. Echocardiogram done today showed normal EF, no wall motion normalities, no significant valvular abnormalities. Objective General VS/I O: 24 hour I O ending at 0700: 04/27 0700 04/26 1900 Intake Total 1100 Output Total Balance 1100 Intake, Oral 1100 Number Voids 5 Patient 96.9 kg Weight Weight Standing scale Measurement Method Vital Signs: Date Time Temp Pulse Resp B/P B/P Pulse O2 O2 Flow FiO2 Mean Ox Delivery Rate 04/27 0650 98.4 67 14 130/77 0.0 98 Room air 04/27 0410 97.9 85 19 109/58 0.0 98 Room air 04/26 2319 98.2 61 20 141/77 0.0 97 Room air 04/26 1830 98.6 65 20 115/68 0.0 96 Room air 04/26 1606 98.2 96 12 120/71 0.0 96 Room air 04/26 1125 98.2 61 18 126/75 0.0 96 Room air PATIENT WEIGHT: Weight (lb): 213 Weight (oz): 10.05 Weight (kg): 96.900 Medications: Active Meds + DC'd Last 24 Hrs Metoprolol Tartrate (LOPRESSOR) 6.25 MG ONCE ONE PO (UNV) Vancomycin HCl (VANCOMYCIN HCL) 1,453.5 MG PREOP ONCALL IV (UNi) Sodium Chloride (SODIUM CHLORIDE 0.9%) 250 ML Verapamil HCl (ISOPTIN) 16.6 MG .Q24H ONE IV (UNV) Heparin Sodium (Porcine) (HEPARIN SODIUM) 1,660 UNIT Sodium Bicarbonate (SODIUM BICARBONATE) 0.7 ML Nitroglycerin/Dextrose (NITROGLYCERIN 50MG/D5W 250ML) 8.3 MG Lactated Ringer's (LACTATED RINGERS) 949.5 ML Doxycycline Hyclate (VIBRAMYCIN) 100 MG Q12HR IV (UNV) Sodium Chloride (SODIUM CHLORIDE 0.9% 100 ML) 100 ML Sodium Biphosphate/Sodium Phosphate (FLEET SALINE ENEMA ADULT) 1 ENEMA BEDTIME RECTAL (CKD) Insulin Human Lispro (HUMALOG) 7 UNIT AC SUBQ Insulin Glargine (Semglee) 15 UNIT BEDTIME SUBQ Metoprolol Tartrate (LOPRESSOR) 25 MG Q12HR PO Silver Sulfadiazine (SILVADENE 1% 50 GM CREAM) 1 APPLIC Q12HR TOPICAL Indomethacin (INDOCIN) 75 MG C BK PO Insulin Human Lispro (HUMALOG) 0 AC HS SUBQ Dextrose/Water (DEXTROSE 10% IN WATER) 125 ML ASDIR PRN IV (CKD) Dextrose/Water (DEXTROSE 10% IN WATER) 250 ML ASDIR PRN IV (CKD) Glucagon (GLUCAGON) 1 MG ASDIR PRN IM Cefepime HCl (MAXIPIME) 1 GM Q6H IV Sodium Chloride (SODIUM CHLORIDE) 10 ML Metronidazole (FLAGYL) 500 MG Q8H PO Sodium Hypochlorite (DAKIN'S 1/2 STRENGTH 0.25% 480 ML TOP SOLN) 1 APPLIC BID TOPICAL Aspirin (ASPIRIN) 81 MG DAILY PO Lisinopril (ZESTRIL) 10 MG DAILY PO Polyethylene Glycol (MIRALAX) 17 GM DAILY PO Atorvastatin Calcium (LIPITOR) 80 MG BEDTIME PO Enoxaparin Sodium (lovENOX) 40 MG Q24H SUBQ (DC) Gabapentin (NEURONTIN) 200 MG TID PO Acetaminophen (TYLENOL) 650 MG Q6H PRN PRN PO Docusate Sodium (COLACE) 100 MG Q12H PRN PRN PO Ondansetron HCl (ZOFRAN ODT) 4 MG Q6H PRN PRN PO Results Findings/Data: Laboratory Tests 04/27 04/27 04/26 04/26 04/26 0651 0322 2023 1601 1123 Chemistry Sodium (134 - 147 mEq/L) 135 Potassium (3.4 - 5.0 mEq/L) 4.5 Chloride (100 - 108 mEq/L) 108 Carbon Dioxide (21 - 33 mEq/l) 23 Anion Gap (0 - 20) 8 BUN (7 - 25 mg/dL) 22 Creatinine (0.6 - 1.3 mg/dL) 0.9 Glomerular Filtr Rate (90 - 95) 99.6 H Glucose (77 - 141 mg/dL) 131 POC Glucose (70 - 110 MG/DL) 150 H 175 H 164 H 192 H Calcium (8.0 - 10.5 mg/dL) 9.2 Magnesium (1.6 - 2.6 mg/dL) 1.66 Laboratory Tests 04/27 828 Coagulation INR (0.8 - 1.2) 1.5 H PTT (Jalen) (25.0 - 39.5 Seconds) 32.7 PT Patient/Control Mix (9.3 - 12.9 SECONDS) 16.4 H Laboratory Tests 04/27 322 Hematology WBC (4.5 - 11.0 x10 3/uL) 7.1 RBC (4.00 - 5.60 x10 6/uL) 4.00 Hgb (12.5 - 16.9 g/dL) 12.0 L Hct (37.5 - 50.7 %) 36.3 L MCV (81.0 - 99.0 fL) 90.8 MCH (27.0 - 33.0 pg) 30.0 MCHC (33.0 - 37.0 g/dL) 33.1 RDW (11.5 - 14.5 %) 12.3 Plt Count (150 - 400 x10 3/uL) 277 MPV (7.0 - 9.0 fL) 10.1 H Neut % (Auto) (56.0 - 77.0 %) 60.0 Lymph % (Auto) (14.0 - 32.0 %) 29.4 [place] % (Auto) (4.8 - 9.0 %) 7.5 Eos % (Auto) (0.3 - 3.7 %) 1.8 Baso % (Auto) (0.0 - 2.0 %) 0.7 Neut # (Auto) (2.0 - 7.6 x10 3/uL) 4.27 Lymph # (Auto) (1.0 - 3.8 x10 3/uL) 2.09 [place] # (Auto) (0.1 - 0.8 x10 3/uL) 0.53 Eos # (Auto) (0.0 - 0.2 x10 3/uL) 0.13 Baso # (Auto) (0.0 - 0.2 x10 3/uL) 0.05 Abs Immat Gran (auto) (0.00 - 0.03 x10 3/uL) 0.04 H Immature Gran % (0.0 - 2.0 %) 0.6 Nucleated RBC % (0 - 0 %) 0.0 Nucleated RBCs # (Man) (0.0 - 0.1 x10 3/uL) 0.00 Laboratory Tests 04/27 828 Serology SARS-CoV-2 Ag (Rapid) (Negative) Negative Laboratory Tests 04/27 032 Chemistry Magnesium (1.6 - 2.6 mg/dL) 1.66 Free Text Obj Notes Free Text Obj Notes: GENERAL: Well developed, in no distress HEENT: Normocephalic, atraumatic NECK: JVP not raised LUNGS: Equal air entry bilaterally, normal vesicular breathing HEART: regular rate, normal S1 and S2, No murmurs, ABDOMEN: Soft, lax, non-tender, non-distended PERIPHERAL PULSES: 2+ dorsalis pedis pulses, left foot covered with dressing EXTREMITIES: No edema Diagnosis, Assessment Plan Consultants: cardiology, cardiovascular surgery, pulmonary Free Text DxA P Notes Free Text DxA P Notes: #NSTEMI #Severe multivessel CAD #Left foot diabetic foot infection with osteomyelitis #Urinary tract infection #Hyperlipidemia #Diabetes mellitus-A1c 8.3 #Essential hypertension #Right lung cavitary lesion PLAN: -CABG work-up per CT surgery versus high risk PCI. -We will get arterial Doppler bilateral lower extremities to evaluate for PAD given left diabetic foot infection. -IV antibiotics per ID -Continue aspirin 81 mg daily. Increase atorvastatin from 40 mg to 80 mg nightly. Start metoprolol tartrate 12.5 mg twice daily. -Continue lisinopril 10 mg daily. 04/21/2023 -Patient seen and examined. Telemetry reviewed. Remains in sinus rhythm. Arterial duplex yesterday showed no evidence of any hemodynamically significant stenosis in the bilateral lower extremity arteries. LDL 92 mg/dL. Atorvastatin increased to 80 mg nightly yesterday. Continue aspirin 81 mg daily, lisinopril 10 mg daily, metoprolol tartrate 12.5 mg twice daily. ID on board for osteomyelitis. CT surgery on board for consideration of CABG. Timing will depend on treatment of foot infection. 04/22/2023: -Patient seen and examined. Telemetry reviewed. Remains in normal sinus rhythm. Increase metoprolol to tartrate to 25 mg twice daily. ID on board for osteomyelitis. Plan for CABG per CT surgery when medically stable and infection improved/resolved. Continue aspirin, high intensity atorvastatin, and lisinopril 10 mg daily. 04/25/2023: -Patient seen and examined. Telemetry reviewed. Remains in normal sinus rhythm. Underwent successful left foot fifth proximal phalanx and fifth metatarsal head resection yesterday. 6 weeks of IV antibiotic treatment plan per ID for osteomyelitis. Planning for CABG per CT surgery. No chest pain or shortness of breath currently. Continue aspirin 81 mg daily, atorvastatin 80 mg nightly, lisinopril 10 mg daily, and metoprolol tartrate 25 mg p.o. every 12 hourly. 04/26/2023: -Patient seen and examined. Telemetry reviewed. Remains in normal sinus rhythm. Plan for CABG likely next week per CT surgery. On IV antibiotics per ID. Denies any chest pain or shortness of breath. Continue aspirin 81 mg daily, atorvastatin 80 mg nightly, lisinopril 10 mg daily, and metoprolol tartrate 25 mg p.o. every 12 hourly. 04/27/2023: Patient seen and examined. Telemetry reviewed. In sinus rhythm. Plan for CABG next week per CT surgery. On IV cefepime and Flagyl per ID. Continue aspirin 81 mg daily, atorvastatin 80 mg nightly, lisinopril 10 mg daily, and metoprolol tartrate 25 mg p.o. every 12 hourly. at 1051 at 0129 RPT #:[id number] END OF REPORT [facility] 2023-04-27 10:40:00 [facility] Infectious Dis. Progress Note REPORT#:[id number] REPORT STATUS: Signed REPORT INITIALIZATION DATE:04/27/23 TIME: 1040 PATIENT: JONG RIVAS UNIT #: [id number] ROOM/BED: [place] [address] : 66 AGE: 58 SEX: M ATTEND: Domenic Rainey MD ADM AUTHOR: Kirk Wakefield MD REPT SERVICE DT/TIME: 04/27/23 1040 * ALL edits or amendments must be made on the electronic/computer document * Subjective Chief complaint: Left-sided diabetic foot infection with osteomyelitis HPI: Patient reports feeling okay subjectively and denies acute or new complaints currently. No major overnight events. Objective General VS/I O: Vital Signs Date Temp Pulse Resp B/P B/P Mean Pulse Ox FiO2 04/26-04/27 97.9-98.6 61-96 12-20 109-141/58-77 0.0 96-98 Last Documented: Result Date Time Pulse Ox 98 04/27 0650 B/P 130/77 04/27 0650 B/P Mean 0.0 04/27 0650 O2 Delivery Room air 04/27 0650 Temp 98.4 04/27 0650 Pulse 67 04/27 0650 Resp 14 04/27 0650 O2 Flow Rate 7 04/24 1013 Vital Signs: Date Time Temp Pulse Resp B/P B/P Pulse O2 O2 Flow FiO2 Mean Ox Delivery Rate 04/27 0650 98.4 67 14 130/77 0.0 98 Room air 04/27 0410 97.9 85 19 109/58 0.0 98 Room air 04/26 2319 98.2 61 20 141/77 0.0 97 Room air 04/26 1830 98.6 65 20 115/68 0.0 96 Room air 04/26 1606 98.2 96 12 120/71 0.0 96 Room air 04/26 1125 98.2 61 18 126/75 0.0 96 Room air 24 hour I O ending at 0700: 04/27 0700 04/26 1900 Intake Total 1100 Output Total Balance 1100 Intake, Oral 1100 Number Voids 5 Patient 96.9 kg Weight Weight Standing scale Measurement Method PATIENT WEIGHT: Weight (lb): 213 Weight (oz): 10.05 Weight (kg): 96.900 Physical Exam General appearance: alert, awake, no acute distress Cardiovascular: normal heart sounds, regular rate rhythm, no murmur Respiratory: clear to auscultation, aerating well, symmetric expansion Abdomen: non-tender, soft, no distention Extremities: no cyanosis, no edema, left foot dressed; dressing clean, dry and intact; dressing not removed for exam 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 Rivas is a 58-year-old male with history of diabetes mellitus type 2, hypertension, prior smoking history, chronic PE, chronic left foot ulcer. He was admitted at [facility] with complaints of chest pain. He had a coronary angiogram done which showed multivessel CAD and EF of 50%. Patient also has a right lower lobe cavitary lung lesion, which is suspected to be from prior PE. TB QuantiFERON has been requested at the outside facility and was pending at the time of transfer. Infectious disease consultation is requested because patient has a chronic, nonhealing wound in the left lateral foot for last 7 to 8 months according to him. The wound is obviously infected and foul-smelling on exam. He had an MRI done at the outside facility, which shows osteomyelitis of the fifth metatarsal. Patient has a PICC line in place, from outside facility. I was able to review blood cultures, which were reportedly negative at 48 hours. He did have a urine culture positive for Pseudomonas. Other culture data is not available to me. Infectious disease consultation is requested for left-sided diabetic foot infection with osteomyelitis. Patient is being evaluated for possible CABG versus high risk PCI *Left-sided diabetic foot infection with osteomyelitis *Left foot cellulitis *Multivessel CAD *RLL cavitary lung lesion, question due to prior PE *Pseudomonas UTI, treated with cefepime *Diabetes mellitus type 2 *Hypertension *Peripheral neuropathy *Prior PE -Afebrile. -Normal WBC count on today's CBC. -ESR 87; CRP 25 on 04/21/2023. -Blood cultures 04/21/23 negative x 2. -MRSA screen negative. -Called [facility] today. Patient's blood cultures have been negative there. Wound culture is positive for MSSA and Pseudomonas ( pansensitive isolate). -Podiatry service is following. Patient is now s/p left foot I D and fifth proximal phalanx and metatarsal head resection on 04/24/2023. -Surgical cultures with growth of Pseudomonas aeruginosa, alpha Streptococcus species and many Staphylococcus epidermidis, methicillin-resistant (MRSE). Plan: -Continue cefepime and metronidazole. -Add doxycycline for MRSE coverage. -Continue local wound care. -Glycemic control. -Patient is now s/p I D per podiatry. -This should provide source control. -He has been on antibiotics for at least 1 week. -From ID standpoint, CABG can be planned at this point. -Given osteomyelitis, would plan for a 6-week course of antibiotic treatment in total. -Further recommendations to follow based upon clinical course. CURRENT ANTIMICROBIALS: Cefepime + metronidazole, started 04/21/2023, day 7 Doxycycline, started 04/27/2023, day 1 at 1044 RPT #:[id number] END OF REPORT [facility] 2023-04-27 09:25:00 [facility] ([facility]) Clinical Note REPORT#:[id number] REPORT STATUS: Signed REPORT INITIALIZATION DATE:04/27/23 TIME: 924 PATIENT: JONG RIVAS UNIT #: [id number] [place] [facility] [place] : 66 AGE: 58 SEX: M ATTEND: Domenic Rainey MD ADM AUTHOR: Mehran Jewell MD REPT SERVICE DT/TIME: 04/27/23 0925 * ALL edits or amendments must be made on the electronic/computer document * See Addendum Clinical Note Note: STS SCORES MORT 0.47% CVA 0.83% JOZEF 0.49% VENT 1.38% DSWI 0.22% LOS 1.74% at 0928 Addendum 1: 04/27/23 1303 by Mehran Jewell MD please see ammended STS scores based on additional data at 1304 RPT #:[id number] END OF REPORT [facility] 2023-04-27 07:13:00 [facility] Cardiothoracic Surgery Prog REPORT#:[id number] REPORT STATUS: Signed REPORT INITIALIZATION DATE:04/27/23 TIME: 712 PATIENT: JONG RIVAS UNIT #: [id number] ROOM/BED: 2201-1 : 66 AGE: 58 SEX: M ATTEND: Domenic Rainey MD ADM AUTHOR: Viky Mclaughlin REPT SERVICE DT/TIME: 04/27/23 0713 * ALL edits or amendments must be made on the electronic/computer document * General Status post: CABG Eval Subjective Chief complaint: Referral for CAD, CABG Eval Currently no complaints, resting comfortable Review of Systems Constitutional: Reports: fatigue. Skin: Denies: bruising, contusion, diaphoresis, ecchymosis. Allergy/Immun: Denies: allergic reaction, itching, rhinorrhea, sneezing. Eyes: Denies: redness, discharge, visual loss/blurred. ENT: Denies: throat pain, throat swelling, tongue pain, tongue swelling, toothache. Respiratory: Reports: MENDES (dyspnea on exertion). Denies: SOB, wheezing. Cardiovascular: Denies: chest pain, edema, orthopnea, palpitations. GI: Denies: abdominal pain, nausea, vomiting. : Denies: dysuria, flank pain. Musculoskeletal: Denies: extremity pain, extremity swelling. Psych: Denies: agitation, anxiety, auditory hallucination, visual hallucination. All systems rev neg: except as marked Objective General VS/I O Last Documented: Result Date Time Pulse Ox 98 04/27 0650 B/P 130/77 04/27 0650 B/P Mean 0.0 04/27 0650 O2 Delivery Room air 04/27 0650 Temp 98.4 04/27 0650 Pulse 67 04/27 0650 Resp 14 04/27 0650 O2 Flow Rate 7 04/24 1013 24 hour I O ending at 0700: 04/27 0700 04/26 1900 Intake Total 1100 Output Total Balance 1100 Intake, Oral 1100 Number Voids 5 Patient 96.9 kg Weight Weight Standing scale Measurement Method PATIENT WEIGHT: Weight (lb): 213 Weight (oz): 10.05 Weight (kg): 96.900 Physical Exam General appearance: alert, awake, oriented Wound/incision: Location: Left foot ulcer HEENT: anicteric, mucosal membranes moist, pupils reactive to light Neck: full range of motion, non-tender Cardiovascular: normal heart sounds, regular rate rhythm Respiratory: aerating well, clear to auscultation, symmetric expansion, no distress Abdomen: soft, non-tender Genitourinary: no bladder distention, no flank pain Extremities: dry, moves all, normal capillary refill, normal temperature Musculoskeletal: full range of motion, painless range of motion 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 Patient transferred from [facility], referred to us from Dr. Forde for acute coronary syndrome, unstable angina, ischemic heart disease status post coronary angiogram, with findings of multivessel CAD, EF 50%. Upon further chart review patient found to have chronic cavitary lung lesion on CT chest pending QuantiFERON, left lower extremity diabetic foot ulcer concerning for osteomyelitis MRI done at [place] and will upload imaging, foot wound culture with pseudomonas, UTI with urine culture Pseudomonas treated with cefepime. Patient reports dyspnea on exertion and mild chest pain x1 year. 04/18/23: Coronary angiogram done at [facility] Left main patent LAD with high-grade and tortuous calcified lesion just after the first diagonal estimated 95% stenosis first diagonal branch with severe calcified disease 99% Ramus 90 to 95% stenosis, left circumflex artery 99% proximal stenosis OM branches severe disease as well. RCA 90%. LVEDP 11 mmHg and angiography demonstrated preserved LV systolic function, EF 50%. Inferior wall demonstrated mild hypokinesis. 1-2+ MR on LV angio. RICHARDS patent Carotid angiogram, patent carotids Assessment: CAD, severe multivessel Left foot nonhealing foot ulcer Chronic cavitary lesion noted on CT chest UTI Pseudomonas 2023 Patient seen and evaluated by Dr. Rainey CABG eval underway -Consult pulmonology, cardiology, wound care -Lovenox DVT prophylaxis Continue supportive care Further recommendations to follow 04/21/2023 CABG eval underway Patient sitting up in bed, room air, no distress. No complaints Patient with multiple complex medical issues ongoing. Timing of major CV surgery pending medical optimization. We will discuss patient at high risk CV Case conference on Tuesday. -Continue supportive care Seen and examined by Dr. Rainey 04/23/2023 CABG eval underway Patient sitting up in bed, room air, no distress. No complaints Patient with multiple complex medical issues ongoing. Timing of major CV surgery pending medical optimization. Left foot MRI complete with fifth MTP effusion/possible septic arthritis with osteomyelitis changes, no drainable soft tissue abscess. -Amputation left fifth toe and metatarsal scheduled by podiatry for tomorrow -Blood cultures 04/21/2023 no growth after 24-hour -UA negative -Lovenox DVT prophylaxis Continue supportive care Further recommendations to follow 04/24/2023 CABG eval underway Patient sitting up in bed, room air, no distress. No complaints -Amputation left fifth toe and metatarsal scheduled by podiatry for today -Blood cultures 04/21/2023 no growth after 48-hour -follow tissue culture Continue supportive care Further recommendations to follow 04/25/2023 CABG eval underway, plan for OR likely next week to allow patient some time to recover from amputation. Patient sitting up in bed, room air, no distress. No complaints S/P Amputation left fifth toe and metatarsal -Blood cultures 04/21/2023 no growth after 72-hour Encourage OOBTC, IS, PT/OT Continue supportive care Further recommendations to follow 04/26/2023 CABG eval underway, plan for OR likely next week to allow patient some time to recover from amputation. Patient sitting up in bed, room air, no distress. No complaints S/P Amputation left fifth toe and metatarsal -Blood cultures 04/21/2023 no growth after 72-hour Encourage OOBTC, IS, PT/OT Continue supportive care Further recommendations to follow 04/27/23 Patient resting comfortable. Denies complaints AAO x 3 respiratory spi: on room air. Remains sinus rhythm ID following - CABG after 04/27/23 completed ABX Carotid Dopplers showed less than 50% stenosis. Vein mapping complete CT of the chest completed Consider surgery this afternoon. Will stephanie NPO. Patient seen and Examined with Dr. Rainey. STS score calculated. 0.8% Coronary bypass graft surgery was discussed with the patient. The risk of the operation including the V score, risk of bleeding, infection, , heart attack, stroke, prolonged ICU stay, renal failure, dialysis, need for long-term rehabilitation etc. was discussed with the patient. The patient's questions were answered and the patient agreed to proceed with surgery. Consultants: cardiology, cardiovascular surgery, pulmonary at 1452 at 0613 RPT #:[id number] END OF REPORT [facility] 2023-04-26 17:35:00 [facility] ([facility]) Endocrinology Progress Note REPORT#:[id number] REPORT STATUS: Signed REPORT INITIALIZATION DATE:04/26/23 TIME: 1734 PATIENT: JONG RIVAS UNIT #: [id number] ROOM/BED: 3357-1 : 66 AGE: 58 SEX: M ATTEND: Domenic Rainey MD ADM AUTHOR: Vlad Lay MD REPT SERVICE DT/TIME: 04/26/23 1224 * ALL edits or amendments must be made on the electronic/computer document * Subjective Patient reports: no complaints Objective General VS: Last Documented: Result Date Time Pulse Ox 96 04/26 1606 B/P 120/71 04/26 1606 B/P Mean 0.0 04/26 160 O2 Delivery Room air 04/26 160 Temp 36.8 04/26 160 Pulse 96 04/26 1606 Resp 12 04/26 160 O2 Flow Rate 7 04/24 1013 PATIENT WEIGHT: Weight (lb): 231 Weight (oz): 0.71 Weight (kg): 104.800 Medications: Active Meds + DC'd Last 24 Hrs Alteplase, Recombinant (CATHFLO ACTIVASE) 2 MG ONCE ONE I-CATHETER (DC) Sterile Water (WATER FOR INJECTION) 2.2 ML ASDIR PRN IV (DC) Insulin Human Lispro (HUMALOG) 7 UNIT AC SUBQ Insulin Glargine (Semglee) 15 UNIT BEDTIME SUBQ Metoprolol Tartrate (LOPRESSOR) 25 MG Q12HR PO Silver Sulfadiazine (SILVADENE 1% 50 GM CREAM) 1 APPLIC Q12HR TOPICAL Indomethacin (INDOCIN) 75 MG C BK PO Insulin Human Lispro (HUMALOG) 0 AC HS SUBQ Dextrose/Water (DEXTROSE 10% IN WATER) 125 ML ASDIR PRN IV (CKD) Dextrose/Water (DEXTROSE 10% IN WATER) 250 ML ASDIR PRN IV (CKD) Glucagon (GLUCAGON) 1 MG ASDIR PRN IM Mupirocin (BACTROBAN 2% 22 GM OINTMENT) 1 APPLIC BID NASAL (DC) Cefepime HCl (MAXIPIME) 1 GM Q6H IV Sodium Chloride (SODIUM CHLORIDE) 10 ML Metronidazole (FLAGYL) 500 MG Q8H PO Sodium Hypochlorite (DAKIN'S 1/2 STRENGTH 0.25% 480 ML TOP SOLN) 1 APPLIC BID TOPICAL Aspirin (ASPIRIN) 81 MG DAILY PO Lisinopril (ZESTRIL) 10 MG DAILY PO Polyethylene Glycol (MIRALAX) 17 GM DAILY PO Atorvastatin Calcium (LIPITOR) 80 MG BEDTIME PO Enoxaparin Sodium (lovENOX) 40 MG Q24H SUBQ Gabapentin (NEURONTIN) 200 MG TID PO Acetaminophen (TYLENOL) 650 MG Q6H PRN PRN PO Docusate Sodium (COLACE) 100 MG Q12H PRN PRN PO Ondansetron HCl (ZOFRAN ODT) 4 MG Q6H PRN PRN PO Physical Exam General appearance: alert, awake Diagnosis, Assessment Plan Hospital course to date: Laboratory Tests: 04/26 04/26 04/26 04/25 1123 0714 0596 2028 Chemistry Sodium (134 - 147 mEq/L) 137 Potassium (3.4 - 5.0 mEq/L) 4.6 Chloride (100 - 108 mEq/L) 107 Carbon Dioxide (21 - 33 mEq/l) 23 Anion Gap (0 - 20) 12 BUN (7 - 25 mg/dL) 28 H Creatinine (0.6 - 1.3 mg/dL) 1.0 Glomerular Filtr Rate (90 - 95) 87.8 L Glucose (77 - 141 mg/dL) 137 POC Glucose (70 - 110 MG/DL) 192 H 137 H 214 H Calcium (8.0 - 10.5 mg/dL) 9.2 Magnesium (1.6 - 2.6 mg/dL) 1.64 Hematology WBC (4.5 - 11.0 x10 3/uL) 7.5 RBC (4.00 - 5.60 x10 6/uL) 3.95 L Hgb (12.5 - 16.9 g/dL) 11.9 L Hct (37.5 - 50.7 %) 35.8 L MCV (81.0 - 99.0 fL) 90.6 MCH (27.0 - 33.0 pg) 30.1 MCHC (33.0 - 37.0 g/dL) 33.2 RDW (11.5 - 14.5 %) 12.4 Plt Count (150 - 400 x10 3/uL) 289 MPV (7.0 - 9.0 fL) 10.2 H Neut % (Auto) (56.0 - 77.0 %) 58.7 Lymph % (Auto) (14.0 - 32.0 %) 30.8 [place] % (Auto) (4.8 - 9.0 %) 7.8 Eos % (Auto) (0.3 - 3.7 %) 1.7 Baso % (Auto) (0.0 - 2.0 %) 0.5 Neut # (Auto) (2.0 - 7.6 x10 3/uL) 4.38 Lymph # (Auto) (1.0 - 3.8 x10 3/uL) 2.30 [place] # (Auto) (0.1 - 0.8 x10 3/uL) 0.58 Eos # (Auto) (0.0 - 0.2 x10 3/uL) 0.13 Baso # (Auto) (0.0 - 0.2 x10 3/uL) 0.04 Abs Immat Gran (auto) (0.00 - 0.03 x10 3/uL) 0.04 H Immature Gran % (0.0 - 2.0 %) 0.5 Nucleated RBC % (0 - 0 %) 0.0 Nucleated RBCs # (Man) (0.0 - 0.1 x10 3/uL) 0.00 Laboratory Tests: 04/25 04/25 04/25 04/24 1126 0720 0222 2002 Chemistry Sodium (134 - 147 mEq/L) 134 Potassium (3.4 - 5.0 mEq/L) 4.2 Chloride (100 - 108 mEq/L) 105 Carbon Dioxide (21 - 33 mEq/l) 23 Anion Gap (0 - 20) 11 BUN (7 - 25 mg/dL) 26 H Creatinine (0.6 - 1.3 mg/dL) 1.0 Glomerular Filtr Rate (90 - 95) 87.8 L Glucose (77 - 141 mg/dL) 168 H POC Glucose (70 - 110 MG/DL) 214 H 158 H 347 H Calcium (8.0 - 10.5 mg/dL) 9.2 Magnesium (1.6 - 2.6 mg/dL) 1.60 Hematology WBC (4.5 - 11.0 x10 3/uL) 11.9 H RBC (4.00 - 5.60 x10 6/uL) 3.89 L Hgb (12.5 - 16.9 g/dL) 11.6 L Hct (37.5 - 50.7 %) 34.7 L MCV (81.0 - 99.0 fL) 89.2 MCH (27.0 - 33.0 pg) 29.8 MCHC (33.0 - 37.0 g/dL) 33.4 RDW (11.5 - 14.5 %) 12.5 Plt Count (150 - 400 x10 3/uL) 316 MPV (7.0 - 9.0 fL) 10.5 H Neut % (Auto) (56.0 - 77.0 %) 80.7 H Lymph % (Auto) (14.0 - 32.0 %) 11.5 L [place] % (Auto) (4.8 - 9.0 %) 6.9 Eos % (Auto) (0.3 - 3.7 %) 0.2 L Baso % (Auto) (0.0 - 2.0 %) 0.2 Neut # (Auto) (2.0 - 7.6 x10 3/uL) 9.65 H Lymph # (Auto) (1.0 - 3.8 x10 3/uL) 1.37 [place] # (Auto) (0.1 - 0.8 x10 3/uL) 0.82 H Eos # (Auto) (0.0 - 0.2 x10 3/uL) 0.02 Baso # (Auto) (0.0 - 0.2 x10 3/uL) 0.02 Abs Immat Gran (auto) (0.00 - 0.03 x10 3/uL) 0.06 H Add Manual Diff NO Immature Gran % (0.0 - 2.0 %) 0.5 Nucleated RBC % (0 - 0 %) 0.0 Nucleated RBCs # (Man) (0.0 - 0.1 x10 3/uL) 0.00 Laboratory Tests: 04/24 04/24 04/24 04/24 04/24 1532 1108 1013 0645 0301 Chemistry Sodium (134 - 147 mEq/L) 135 Potassium (3.4 - 5.0 mEq/L) 4.3 Chloride (100 - 108 mEq/L) 106 Carbon Dioxide (21 - 33 mEq/l) 21 Anion Gap (0 - 20) 13 BUN (7 - 25 mg/dL) 18 Creatinine (0.6 - 1.3 mg/dL) 0.9 Glomerular Filtr Rate (90 - 95) 99.6 H Glucose (77 - 141 mg/dL) 113 POC Glucose (70 - 110 MG/DL) 310 H 176 H 149 H 141 H Calcium (8.0 - 10.5 mg/dL) 9.2 Magnesium (1.6 - 2.6 mg/dL) 1.68 Hematology WBC (4.5 - 11.0 x10 3/uL) 7.8 RBC (4.00 - 5.60 x10 6/uL) 3.93 L Hgb (12.5 - 16.9 g/dL) 11.7 L Hct (37.5 - 50.7 %) 35.6 L MCV (81.0 - 99.0 fL) 90.6 MCH (27.0 - 33.0 pg) 29.8 MCHC (33.0 - 37.0 g/dL) 32.9 L RDW (11.5 - 14.5 %) 12.3 Plt Count (150 - 400 x10 3/uL) 278 MPV (7.0 - 9.0 fL) 10.0 H Neut % (Auto) (56.0 - 77.0 %) 68.0 Lymph % (Auto) (14.0 - 32.0 %) 21.2 [place] % (Auto) (4.8 - 9.0 %) 7.9 Eos % (Auto) (0.3 - 3.7 %) 1.9 Baso % (Auto) (0.0 - 2.0 %) 0.4 Neut # (Auto) (2.0 - 7.6 x10 3/uL) 5.28 Lymph # (Auto) (1.0 - 3.8 x10 3/uL) 1.65 [place] # (Auto) (0.1 - 0.8 x10 3/uL) 0.61 Eos # (Auto) (0.0 - 0.2 x10 3/uL) 0.15 Baso # (Auto) (0.0 - 0.2 x10 3/uL) 0.03 Abs Immat Gran (auto) (0.00 - 0.03 0.05 H x10 3/uL) Immature Gran % (0.0 - 2.0 %) 0.6 Nucleated RBC % (0 - 0 %) 0.0 Nucleated RBCs # (Man) (0.0 - 0.1 0.00 x10 3/uL) 04/23 2019 Chemistry POC Glucose (70 - 110 MG/DL) 276 H Microbiology: Date/Time Procedure - Status Source Growth 04/24 1000 Tissue Culture - RES TISSUE 04/24 1000 Anaerobic Culture - RES TISSUE 04/24 1000 Gram Stain - RES TISSUE Laboratory Tests: 04/23 04/23 04/23 04/23 04/23 1550 1110 0703 0330 0330 Chemistry Sodium (134 - 147 mEq/L) 137 Potassium (3.4 - 5.0 mEq/L) 3.9 Chloride (100 - 108 mEq/L) 105 Carbon Dioxide (21 - 33 mEq/l) 22 Anion Gap (0 - 20) 14 BUN (7 - 25 mg/dL) 25 Creatinine (0.6 - 1.3 mg/dL) 1.1 Glomerular Filtr Rate (90 - 95) 78.3 L Glucose (77 - 141 mg/dL) 131 POC Glucose (70 - 110 MG/DL) 265 H 284 H 143 H Calcium (8.0 - 10.5 mg/dL) 9.4 Magnesium (1.6 - 2.6 mg/dL) 1.72 Hematology WBC (4.5 - 11.0 x10 3/uL) 10.1 RBC (4.00 - 5.60 x10 6/uL) 4.24 Hgb (12.5 - 16.9 g/dL) 12.7 Hct (37.5 - 50.7 %) 38.4 MCV (81.0 - 99.0 fL) 90.6 MCH (27.0 - 33.0 pg) 30.0 MCHC (33.0 - 37.0 g/dL) 33.1 RDW (11.5 - 14.5 %) 12.3 Plt Count (150 - 400 x10 3/uL) 332 MPV (7.0 - 9.0 fL) 10.3 H Neut % (Auto) (56.0 - 77.0 %) 71.8 Lymph % (Auto) (14.0 - 32.0 %) 18.0 [place] % (Auto) (4.8 - 9.0 %) 8.4 Eos % (Auto) (0.3 - 3.7 %) 0.8 Baso % (Auto) (0.0 - 2.0 %) 0.4 Neut # (Auto) (2.0 - 7.6 x10 3/uL) 7.28 Lymph # (Auto) (1.0 - 3.8 x10 3/uL) 1.82 [place] # (Auto) (0.1 - 0.8 x10 3/uL) 0.85 H Eos # (Auto) (0.0 - 0.2 x10 3/uL) 0.08 Baso # (Auto) (0.0 - 0.2 x10 3/uL) 0.04 Abs Immat Gran (auto) (0.00 - 0.03 0.06 H x10 3/uL) Immature Gran % (0.0 - 2.0 %) 0.6 Nucleated RBC % (0 - 0 %) 0.0 Nucleated RBCs # (Man) (0.0 - 0.1 0.00 x10 3/uL) 04/23 04/22 0252 2121 Chemistry POC Glucose (70 - 110 MG/DL) 197 H Toxicology Vancomycin Trough (10.0 - 20.0 mcg/mL) 12.1 Recent Impressions: MAGNETIC RESONANCE IMAGING - MRI LOW EXT W/O CONT LT 04/23 1034 Report Impression - Status: SIGNED Entered: 04/23/2023 1207 IMPRESSION: 5th MTP effusion/possible septic arthritis with osteomyelitis changes as detailed. No drainable soft tissue abscess. Impression By: [email or web address] - Aaron Lemuel Goldberg M.D. Laboratory Tests: 04/22 04/21 04/21 0421 1957 1555 Chemistry Sodium (134 - 147 mEq/L) 139 Potassium (3.4 - 5.0 mEq/L) 4.3 Chloride (100 - 108 mEq/L) 108 Carbon Dioxide (21 - 33 mEq/l) 22 Anion Gap (0 - 20) 14 BUN (7 - 25 mg/dL) 17 Creatinine (0.6 - 1.3 mg/dL) 0.9 Glomerular Filtr Rate (90 - 95) 99.6 H Glucose (77 - 141 mg/dL) 124 POC Glucose (70 - 110 MG/DL) 232 H 133 H Calcium (8.0 - 10.5 mg/dL) 9.0 Hematology WBC (4.5 - 11.0 x10 3/uL) 8.6 RBC (4.00 - 5.60 x10 6/uL) 3.89 L Hgb (12.5 - 16.9 g/dL) 11.5 L Hct (37.5 - 50.7 %) 36.2 L MCV (81.0 - 99.0 fL) 93.1 MCH (27.0 - 33.0 pg) 29.6 MCHC (33.0 - 37.0 g/dL) 31.8 L RDW (11.5 - 14.5 %) 12.5 Plt Count (150 - 400 x10 3/uL) 301 MPV (7.0 - 9.0 fL) 10.1 H Neut % (Auto) (56.0 - 77.0 %) 66.1 Lymph % (Auto) (14.0 - 32.0 %) 23.5 [place] % (Auto) (4.8 - 9.0 %) 7.4 Eos % (Auto) (0.3 - 3.7 %) 2.0 Baso % (Auto) (0.0 - 2.0 %) 0.6 Neut # (Auto) (2.0 - 7.6 x10 3/uL) 5.66 Lymph # (Auto) (1.0 - 3.8 x10 3/uL) 2.01 [place] # (Auto) (0.1 - 0.8 x10 3/uL) 0.63 Eos # (Auto) (0.0 - 0.2 x10 3/uL) 0.17 Baso # (Auto) (0.0 - 0.2 x10 3/uL) 0.05 Abs Immat Gran (auto) (0.00 - 0.03 x10 3/uL) 0.03 Immature Gran % (0.0 - 2.0 %) 0.4 Nucleated RBC % (0 - 0 %) 0.0 Nucleated RBCs # (Man) (0.0 - 0.1 x10 3/uL) 0.00 Microbiology: Date/Time Procedure - Status Source Growth 04/21 153 Blood Culture - RECD BLOOD 04/21 1535 Blood Culture Gram Stain - RECD BLOOD 04/21 1535 Blood Culture - RECD BLOOD 04/21 1535 Blood Culture Gram Stain - RECD BLOOD Recent Impressions: RADIOLOGY - XR FOOT 3 + V LT 04/21 1423 Report Impression - Status: SIGNED Entered: 04/21/2023 1438 IMPRESSION: Interval progression of osteomyelitis involving the fifth metatarsal head and fifth proximal phalanx base about the MTP joint since the prior study from 04/16/2023. Impression By: [email or web address] - Brett Elizabeth M.D. Laboratory Tests: 04/21 04/21 04/21 04/21 1128 0931 0534 0132 Chemistry Sodium (134 - 147 mEq/L) 137 Potassium (3.4 - 5.0 mEq/L) 4.0 Chloride (100 - 108 mEq/L) 105 Carbon Dioxide (21 - 33 mEq/l) 24 Anion Gap (0 - 20) 12 BUN (7 - 25 mg/dL) 18 Creatinine (0.6 - 1.3 mg/dL) 1.1 Glomerular Filtr Rate (90 - 95) 78.3 L Glucose (77 - 141 mg/dL) 181 H POC Glucose (70 - 110 MG/DL) 172 H Calcium (8.0 - 10.5 mg/dL) 9.3 Magnesium (1.6 - 2.6 mg/dL) 1.61 C-Reactive Protein (<10.0 mg/L) 25.0 H Hematology WBC (4.5 - 11.0 x10 3/uL) 7.0 RBC (4.00 - 5.60 x10 6/uL) 4.05 Hgb (12.5 - 16.9 g/dL) 12.0 L Hct (37.5 - 50.7 %) 36.5 L MCV (81.0 - 99.0 fL) 90.1 MCH (27.0 - 33.0 pg) 29.6 MCHC (33.0 - 37.0 g/dL) 32.9 L RDW (11.5 - 14.5 %) 12.0 Plt Count (150 - 400 x10 3/uL) 305 MPV (7.0 - 9.0 fL) 10.5 H Neut % (Auto) (56.0 - 77.0 %) 61.3 Lymph % (Auto) (14.0 - 32.0 %) 27.0 [place] % (Auto) (4.8 - 9.0 %) 8.9 Eos % (Auto) (0.3 - 3.7 %) 1.7 Baso % (Auto) (0.0 - 2.0 %) 0.7 Neut # (Auto) (2.0 - 7.6 x10 3/uL) 4.28 Lymph # (Auto) (1.0 - 3.8 x10 3/uL) 1.89 [place] # (Auto) (0.1 - 0.8 x10 3/uL) 0.62 Eos # (Auto) (0.0 - 0.2 x10 3/uL) 0.12 Baso # (Auto) (0.0 - 0.2 x10 3/uL) 0.05 Abs Immat Gran (auto) (0.00 - 0.03 x10 3/uL) 0.03 Immature Gran % (0.0 - 2.0 %) 0.4 Nucleated RBC % (0 - 0 %) 0.0 Nucleated RBCs # (Man) (0.0 - 0.1 x10 3/uL) 0.00 ESR Westergren (0 - 15 mm/hr) 87 H Urines Urine Color (YEL/STRAW) YELLOW Urine Appearance (CLEAR) CLEAR Urine pH (5.0 - 7.0) 5.0 Ur Specific [place] (1.005 - 1.030) 1.011 Urine Protein (NEGATIVE) NEGATIVE Urine Glucose (UA) (NEGATIVE) 3+ H Urine Ketones (NEGATIVE) NEGATIVE Urine Blood (NEGATIVE) NEGATIVE Urine Nitrite (NEGATIVE) NEGATIVE Urine Bilirubin (NEGATIVE) NEGATIVE Urine Urobilinogen (0.2 - 1.0 mg/dL) 0.2 Ur Leukocyte Esterase (NEGATIVE) NEGATIVE Urine RBC (0 - 3 RBC/HPF) 0-3 Urine WBC (0 - 3 WBC/HPF) 0-3 Ur Squamous Epith Cells (NONE SEEN /HPF) 0-5 Ur Transition Epith Cell (NONE SEEN /HPF) TRACE Urine Bacteria (NONE SEEN /HPF) TRACE Urine Mucus (NONE SEEN /LPF) TRACE 04/20 Chemistry POC Glucose (70 - 110 MG/DL) 325 H Coagulation INR (0.8 - 1.2) 1.3 H PTT (Jalen) (25.0 - 39.5 Seconds) 39.3 PT Patient/Control Mix (9.3 - 12.9 SECONDS) 14.5 H Microbiology: Date/Time Procedure - Status Source Growth 04/21 153 Blood Culture - RECD BLOOD 04/21 1535 Blood Culture Gram Stain - RECD BLOOD 04/21 1535 Blood Culture - RECD BLOOD 04/21 1535 Blood Culture Gram Stain - RECD BLOOD Recent Impressions: RADIOLOGY - XR FOOT 3 + V LT 04/21 1423 Report Impression - Status: SIGNED Entered: 04/21/2023 1438 IMPRESSION: Interval progression of osteomyelitis involving the fifth metatarsal head and fifth proximal phalanx base about the MTP joint since the prior study from 04/16/2023. Impression By: [email or web address] Janiya Elizabeth M.D. 1. 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 2. Coronary artery disease. 6 3. For CABG 4. Ex-smoker 5.Left foot wound 6.Hypertension. 7. Hyperlipidemia Blood sugar 137-150 mg/dL. HbA1c 8.3%. Lipids elevated.This Adjust insulin dose. Diabetes dietary education. at 1736 RPT #:[id number] END OF REPORT [facility] 2023-04-26 15:20:00 [facility] Cardiothoracic Surgery Prog REPORT#:[id number] REPORT STATUS: Signed REPORT INITIALIZATION DATE:04/26/23 TIME: 1519 PATIENT: JONG RIVAS UNIT #: [id number] ROOM/BED: [place] [id number] : 66 AGE: 58 SEX: M ATTEND: Domenic Rainey MD ADM AUTHOR: Mirian Robin NP REPT SERVICE DT/TIME: 04/26/23 1520 * ALL edits or amendments must be made on the electronic/computer document * General Status post: CABG Eval Subjective Chief complaint: Referral for CAD, CABG Eval Currently no complaints, resting comfortable Patient reports: No: complaints. Review of Systems Constitutional: Reports: fatigue. Skin: Denies: bruising, contusion, diaphoresis, ecchymosis. Allergy/Immun: Denies: allergic reaction, itching, rhinorrhea, sneezing. Eyes: Denies: redness, discharge, visual loss/blurred. ENT: Denies: throat pain, throat swelling, tongue pain, tongue swelling, toothache. Respiratory: Reports: MENDES (dyspnea on exertion). Denies: SOB, wheezing. Cardiovascular: Denies: chest pain, edema, orthopnea, palpitations. GI: Denies: abdominal pain, nausea, vomiting. : Denies: dysuria, flank pain. Musculoskeletal: Denies: extremity pain, extremity swelling. Psych: Denies: agitation, anxiety, auditory hallucination, visual hallucination. All systems rev neg: except as marked Objective General VS/I O Last Documented: Result Date Time Pulse Ox 96 04/26 1125 B/P 126/75 04/26 1125 B/P Mean 0.0 04/26 1125 O2 Delivery Room air 04/26 1125 Temp 98.2 04/26 1125 Pulse 61 04/26 1125 Resp 18 04/26 1125 O2 Flow Rate 7 04/24 1013 24 hour I O ending at 0700: 04/26 0700 04/25 1900 Intake Total 1050 Output Total Balance 1050 Intake, Oral 1050 Number Voids 5 Patient 104.8 kg Weight Weight Standing scale Measurement Method PATIENT WEIGHT: Weight (lb): 231 Weight (oz): 0.71 Weight (kg): 104.800 Physical Exam General appearance: alert, awake, oriented, no acute distress Wound/incision: Location: Left foot ulcer HEENT: anicteric, mucosal membranes moist, pupils reactive to light Neck: full range of motion, non-tender Cardiovascular: normal heart sounds, regular rate rhythm Respiratory: aerating well, clear to auscultation, symmetric expansion, no distress Abdomen: soft, non-tender Genitourinary: no bladder distention, no flank pain Extremities: dry, moves all, normal capillary refill, normal temperature Musculoskeletal: full range of motion, painless range of motion 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, 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 X 3 Psychiatry: normal affect, normal judgment/insight Current Medications Medications: Active Meds + DC'd Last 24 Hrs Alteplase, Recombinant (CATHFLO ACTIVASE) 2 MG ONCE ONE I-CATHETER (DC) Sterile Water (WATER FOR INJECTION) 2.2 ML ASDIR PRN IV (DC) Insulin Human Lispro (HUMALOG) 7 UNIT AC SUBQ Insulin Glargine (Semglee) 15 UNIT BEDTIME SUBQ Metoprolol Tartrate (LOPRESSOR) 25 MG Q12HR PO Silver Sulfadiazine (SILVADENE 1% 50 GM CREAM) 1 APPLIC Q12HR TOPICAL Indomethacin (INDOCIN) 75 MG C BK PO Insulin Human Lispro (HUMALOG) 0 AC HS SUBQ Dextrose/Water (DEXTROSE 10% IN WATER) 125 ML ASDIR PRN IV (CKD) Dextrose/Water (DEXTROSE 10% IN WATER) 250 ML ASDIR PRN IV (CKD) Glucagon (GLUCAGON) 1 MG ASDIR PRN IM Mupirocin (BACTROBAN 2% 22 GM OINTMENT) 1 APPLIC BID NASAL (DC) Cefepime HCl (MAXIPIME) 1 GM Q6H IV Sodium Chloride (SODIUM CHLORIDE) 10 ML Metronidazole (FLAGYL) 500 MG Q8H PO Sodium Hypochlorite (DAKIN'S 1/2 STRENGTH 0.25% 480 ML TOP SOLN) 1 APPLIC BID TOPICAL Aspirin (ASPIRIN) 81 MG DAILY PO Lisinopril (ZESTRIL) 10 MG DAILY PO Polyethylene Glycol (MIRALAX) 17 GM DAILY PO Atorvastatin Calcium (LIPITOR) 80 MG BEDTIME PO Enoxaparin Sodium (lovENOX) 40 MG Q24H SUBQ Gabapentin (NEURONTIN) 200 MG TID PO Acetaminophen (TYLENOL) 650 MG Q6H PRN PRN PO Docusate Sodium (COLACE) 100 MG Q12H PRN PRN PO Ondansetron HCl (ZOFRAN ODT) 4 MG Q6H PRN PRN PO Results Findings/Data: Laboratory Tests 04/26 04/26 04/26 04/25 04/25 1123 0714 0545 2029 1627 Chemistry Sodium (134 - 147 mEq/L) 137 Potassium (3.4 - 5.0 mEq/L) 4.6 Chloride (100 - 108 mEq/L) 107 Carbon Dioxide (21 - 33 mEq/l) 23 Anion Gap (0 - 20) 12 BUN (7 - 25 mg/dL) 28 H Creatinine (0.6 - 1.3 mg/dL) 1.0 Glomerular Filtr Rate (90 - 95) 87.8 L Glucose (77 - 141 mg/dL) 137 POC Glucose (70 - 110 MG/DL) 192 H 137 H 214 H 212 H Calcium (8.0 - 10.5 mg/dL) 9.2 Magnesium (1.6 - 2.6 mg/dL) 1.64 Laboratory Tests 04/26 0545 Hematology WBC (4.5 - 11.0 x10 3/uL) 7.5 RBC (4.00 - 5.60 x10 6/uL) 3.95 L Hgb (12.5 - 16.9 g/dL) 11.9 L Hct (37.5 - 50.7 %) 35.8 L MCV (81.0 - 99.0 fL) 90.6 MCH (27.0 - 33.0 pg) 30.1 MCHC (33.0 - 37.0 g/dL) 33.2 RDW (11.5 - 14.5 %) 12.4 Plt Count (150 - 400 x10 3/uL) 289 MPV (7.0 - 9.0 fL) 10.2 H Neut % (Auto) (56.0 - 77.0 %) 58.7 Lymph % (Auto) (14.0 - 32.0 %) 30.8 [place] % (Auto) (4.8 - 9.0 %) 7.8 Eos % (Auto) (0.3 - 3.7 %) 1.7 Baso % (Auto) (0.0 - 2.0 %) 0.5 Neut # (Auto) (2.0 - 7.6 x10 3/uL) 4.38 Lymph # (Auto) (1.0 - 3.8 x10 3/uL) 2.30 [place] # (Auto) (0.1 - 0.8 x10 3/uL) 0.58 Eos # (Auto) (0.0 - 0.2 x10 3/uL) 0.13 Baso # (Auto) (0.0 - 0.2 x10 3/uL) 0.04 Abs Immat Gran (auto) (0.00 - 0.03 x10 3/uL) 0.04 H Immature Gran % (0.0 - 2.0 %) 0.5 Nucleated RBC % (0 - 0 %) 0.0 Nucleated RBCs # (Man) (0.0 - 0.1 x10 3/uL) 0.00 Diagnosis, Assessment Plan Free Text A P: 57-year-old male, poor historian, PMHx diabetes on metformin, neuropathy, HTN, former smoker, PE chronic nonhealing left foot ulcer at the fifth metatarsal located posterior lateral, with no known prior cardiovascular disease. Patient transferred from [facility], referred to us from Dr. Forde for acute coronary syndrome, unstable angina, ischemic heart disease status post coronary angiogram, with findings of multivessel CAD, EF 50%. Upon further chart review patient found to have chronic cavitary lung lesion on CT chest pending QuantiFERON, left lower extremity diabetic foot ulcer concerning for osteomyelitis MRI done at [place] and will upload imaging, foot wound culture with pseudomonas, UTI with urine culture Pseudomonas treated with cefepime. Patient reports dyspnea on exertion and mild chest pain x1 year. 04/18/23: Coronary angiogram done at [facility] Left main patent LAD with high-grade and tortuous calcified lesion just after the first diagonal estimated 95% stenosis first diagonal branch with severe calcified disease 99% Ramus 90 to 95% stenosis, left circumflex artery 99% proximal stenosis OM branches severe disease as well. RCA 90%. LVEDP 11 mmHg and angiography demonstrated preserved LV systolic function, EF 50%. Inferior wall demonstrated mild hypokinesis. 1-2+ MR on LV angio. RICHARDS patent Carotid angiogram, patent carotids Assessment: CAD, severe multivessel Left foot nonhealing foot ulcer Chronic cavitary lesion noted on CT chest UTI Pseudomonas 2023 Patient seen and evaluated by Dr. Rainey CABG eval underway -Consult pulmonology, cardiology, wound care -Lovenox DVT prophylaxis Continue supportive care Further recommendations to follow 04/21/2023 CABG eval underway Patient sitting up in bed, room air, no distress. No complaints Patient with multiple complex medical issues ongoing. Timing of major CV surgery pending medical optimization. We will discuss patient at high risk CV Case conference on Tuesday. -Continue supportive care Seen and examined by Dr. Rainey 04/23/2023 CABG eval underway Patient sitting up in bed, room air, no distress. No complaints Patient with multiple complex medical issues ongoing. Timing of major CV surgery pending medical optimization. Left foot MRI complete with fifth MTP effusion/possible septic arthritis with osteomyelitis changes, no drainable soft tissue abscess. -Amputation left fifth toe and metatarsal scheduled by podiatry for tomorrow -Blood cultures 04/21/2023 no growth after 24-hour -UA negative -Lovenox DVT prophylaxis Continue supportive care Further recommendations to follow 04/24/2023 CABG eval underway Patient sitting up in bed, room air, no distress. No complaints -Amputation left fifth toe and metatarsal scheduled by podiatry for today -Blood cultures 04/21/2023 no growth after 48-hour -follow tissue culture Continue supportive care Further recommendations to follow 04/25/2023 CABG eval underway, plan for OR likely next week to allow patient some time to recover from amputation. Patient sitting up in bed, room air, no distress. No complaints S/P Amputation left fifth toe and metatarsal -Blood cultures 04/21/2023 no growth after 72-hour Encourage OOBTC, IS, PT/OT Continue supportive care Further recommendations to follow 04/26/2023 CABG eval underway, plan for OR likely next week to allow patient some time to recover from amputation. Patient sitting up in bed, room air, no distress. No complaints S/P Amputation left fifth toe and metatarsal -Blood cultures 04/21/2023 no growth after 72-hour Encourage OOBTC, IS, PT/OT Continue supportive care Further recommendations to follow Consultants: cardiology, cardiovascular surgery, pulmonary Plan discussed with: patient, collaborating MD, nurse at 1521 at 0536 RPT #:[id number] END OF REPORT [facility] 2023-04-26 12:22:00 [facility] Cardiology Progress Note REPORT#:[id number] REPORT STATUS: Signed REPORT INITIALIZATION DATE:04/26/23 TIME: 122 PATIENT: JONG RIVAS UNIT #: [id number] ROOM/BED: [address] : [birth year] AGE: 58 SEX: M ATTEND: Domenic Rainey MD ADM AUTHOR: Noemí Nieto MD REPT SERVICE DT/TIME: 04/26/23 1222 * ALL edits or amendments must be made on the electronic/computer document * Subjective HPI: 58-year-old male with past medical history of [id number] diabetes mellitus, hypertension, history of PE previously on anticoagulation, right lung cavitary lesion was seen at [facility] on 04/15/2023 with a complaint of shortness of breath for few weeks and chest pain. Patient was found to have initial troponin I of 0.045. In addition, his BNP was thousand 54 pg/mL. Initial EKG showed normal sinus rhythm with right bundle branch block. He was deemed to have NSTEMI. Subsequently, he underwent coronary angiogram via right femoral approach and was found to have multivessel CAD including severe proximal LAD stenosis, severe ostial to proximal circumflex stenosis and a dominant vessel, and nondominant RCA. LVEDP was 13 mmHg. During hospital stay, he was also diagnosed with left diabetic foot infection. Subsequently MRI of the foot showed osteomyelitis of the left fifth toe. Patient was started on IV antibiotics. Cultures grew Pseudomonas aeruginosa and Staph aureus. In addition, patient was deemed to have UTI. Patient was transferred to [facility] for further work-up including possible evaluation for CABG versus high risk PCI. Patient seen this afternoon. Denies any chest pain or shortness of breath at this point. Overall, poor historian. Not able to tell what medications he takes at home. EKG done today 2023 showed normal sinus rhythm with right bundle branch block. Echocardiogram done today showed normal EF, no wall motion normalities, no significant valvular abnormalities. Objective General VS/I O: 24 hour I O ending at 0700: 04/26 0700 04/25 1900 Intake Total 1050 Output Total Balance 1050 Intake, Oral 1050 Number Voids 5 Patient 104.8 kg Weight Weight Standing scale Measurement Method Vital Signs: Date Time Temp Pulse Resp B/P B/P Pulse O2 O2 Flow FiO2 Mean Ox Delivery Rate 04/26 1125 98.2 61 18 126/75 0.0 96 Room air 04/26 0719 98.1 67 18 105/63 0.0 96 Room air 04/26 0453 98.1 62 13 117/65 0.0 100 Room air 04/25 2307 98.1 60 20 95/52 0.0 95 Room air 04/25 1820 97.9 62 20 141/81 0.0 95 Room air 04/25 1638 98.1 59 18 157/80 105.5 96 Room air PATIENT WEIGHT: Weight (lb): 231 Weight (oz): 0.71 Weight (kg): 104.800 Medications: Active Meds + DC'd Last 24 Hrs Alteplase, Recombinant (CATHFLO ACTIVASE) 2 MG ONCE ONE I-CATHETER (DC) Sterile Water (WATER FOR INJECTION) 2.2 ML ASDIR PRN IV (DC) Insulin Human Lispro (HUMALOG) 7 UNIT AC SUBQ Insulin Glargine (Semglee) 15 UNIT BEDTIME SUBQ Metoprolol Tartrate (LOPRESSOR) 25 MG Q12HR PO Silver Sulfadiazine (SILVADENE 1% 50 GM CREAM) 1 APPLIC Q12HR TOPICAL Indomethacin (INDOCIN) 75 MG C BK PO Insulin Human Lispro (HUMALOG) 0 AC HS SUBQ Dextrose/Water (DEXTROSE 10% IN WATER) 125 ML ASDIR PRN IV (CKD) Dextrose/Water (DEXTROSE 10% IN WATER) 250 ML ASDIR PRN IV (CKD) Glucagon (GLUCAGON) 1 MG ASDIR PRN IM Mupirocin (BACTROBAN 2% 22 GM OINTMENT) 1 APPLIC BID NASAL (DC) Cefepime HCl (MAXIPIME) 1 GM Q6H IV Sodium Chloride (SODIUM CHLORIDE) 10 ML Metronidazole (FLAGYL) 500 MG Q8H PO Sodium Hypochlorite (DAKIN'S 1/2 STRENGTH 0.25% 480 ML TOP SOLN) 1 APPLIC BID TOPICAL Aspirin (ASPIRIN) 81 MG DAILY PO Lisinopril (ZESTRIL) 10 MG DAILY PO Polyethylene Glycol (MIRALAX) 17 GM DAILY PO Atorvastatin Calcium (LIPITOR) 80 MG BEDTIME PO Enoxaparin Sodium (lovENOX) 40 MG Q24H SUBQ Gabapentin (NEURONTIN) 200 MG TID PO Acetaminophen (TYLENOL) 650 MG Q6H PRN PRN PO Docusate Sodium (COLACE) 100 MG Q12H PRN PRN PO Ondansetron HCl (ZOFRAN ODT) 4 MG Q6H PRN PRN PO Results Findings/Data: Laboratory Tests 04/26 04/26 04/25 04/25 0714 0545 9 1627 Chemistry Sodium (134 - 147 mEq/L) 137 Potassium (3.4 - 5.0 mEq/L) 4.6 Chloride (100 - 108 mEq/L) 107 Carbon Dioxide (21 - 33 mEq/l) 23 Anion Gap (0 - 20) 12 BUN (7 - 25 mg/dL) 28 H Creatinine (0.6 - 1.3 mg/dL) 1.0 Glomerular Filtr Rate (90 - 95) 87.8 L Glucose (77 - 141 mg/dL) 137 POC Glucose (70 - 110 MG/DL) 137 H 214 H 212 H Calcium (8.0 - 10.5 mg/dL) 9.2 Magnesium (1.6 - 2.6 mg/dL) 1.64 Laboratory Tests 04/26 0545 Hematology WBC (4.5 - 11.0 x10 3/uL) 7.5 RBC (4.00 - 5.60 x10 6/uL) 3.95 L Hgb (12.5 - 16.9 g/dL) 11.9 L Hct (37.5 - 50.7 %) 35.8 L MCV (81.0 - 99.0 fL) 90.6 MCH (27.0 - 33.0 pg) 30.1 MCHC (33.0 - 37.0 g/dL) 33.2 RDW (11.5 - 14.5 %) 12.4 Plt Count (150 - 400 x10 3/uL) 289 MPV (7.0 - 9.0 fL) 10.2 H Neut % (Auto) (56.0 - 77.0 %) 58.7 Lymph % (Auto) (14.0 - 32.0 %) 30.8 [place] % (Auto) (4.8 - 9.0 %) 7.8 Eos % (Auto) (0.3 - 3.7 %) 1.7 Baso % (Auto) (0.0 - 2.0 %) 0.5 Neut # (Auto) (2.0 - 7.6 x10 3/uL) 4.38 Lymph # (Auto) (1.0 - 3.8 x10 3/uL) 2.30 [place] # (Auto) (0.1 - 0.8 x10 3/uL) 0.58 Eos # (Auto) (0.0 - 0.2 x10 3/uL) 0.13 Baso # (Auto) (0.0 - 0.2 x10 3/uL) 0.04 Abs Immat Gran (auto) (0.00 - 0.03 x10 3/uL) 0.04 H Immature Gran % (0.0 - 2.0 %) 0.5 Nucleated RBC % (0 - 0 %) 0.0 Nucleated RBCs # (Man) (0.0 - 0.1 x10 3/uL) 0.00 Laboratory Tests 04/26 0545 Chemistry Magnesium (1.6 - 2.6 mg/dL) 1.64 Free Text Obj Notes Free Text Obj Notes: GENERAL: Well developed, in no distress HEENT: Normocephalic, atraumatic NECK: JVP not raised LUNGS: Equal air entry bilaterally, normal vesicular breathing HEART: regular rate, normal S1 and S2, No murmurs, ABDOMEN: Soft, lax, non-tender, non-distended PERIPHERAL PULSES: 2+ dorsalis pedis pulses, left foot covered with dressing EXTREMITIES: No edema Diagnosis, Assessment Plan Consultants: cardiology, cardiovascular surgery, pulmonary Free Text DxA P Notes Free Text DxA P Notes: #NSTEMI #Severe multivessel CAD #Left foot diabetic foot infection with osteomyelitis #Urinary tract infection #Hyperlipidemia #Diabetes mellitus-A1c 8.3 #Essential hypertension #Right lung cavitary lesion PLAN: -CABG work-up per CT surgery versus high risk PCI. -We will get arterial Doppler bilateral lower extremities to evaluate for PAD given left diabetic foot infection. -IV antibiotics per ID -Continue aspirin 81 mg daily. Increase atorvastatin from 40 mg to 80 mg nightly. Start metoprolol tartrate 12.5 mg twice daily. -Continue lisinopril 10 mg daily. 04/21/2023 -Patient seen and examined. Telemetry reviewed. Remains in sinus rhythm. Arterial duplex yesterday showed no evidence of any hemodynamically significant stenosis in the bilateral lower extremity arteries. LDL 92 mg/dL. Atorvastatin increased to 80 mg nightly yesterday. Continue aspirin 81 mg daily, lisinopril 10 mg daily, metoprolol tartrate 12.5 mg twice daily. ID on board for osteomyelitis. CT surgery on board for consideration of CABG. Timing will depend on treatment of foot infection. 04/22/2023: -Patient seen and examined. Telemetry reviewed. Remains in normal sinus rhythm. Increase metoprolol to tartrate to 25 mg twice daily. ID on board for osteomyelitis. Plan for CABG per CT surgery when medically stable and infection improved/resolved. Continue aspirin, high intensity atorvastatin, and lisinopril 10 mg daily. 04/25/2023: -Patient seen and examined. Telemetry reviewed. Remains in normal sinus rhythm. Underwent successful left foot fifth proximal phalanx and fifth metatarsal head resection yesterday. 6 weeks of IV antibiotic treatment plan per ID for osteomyelitis. Planning for CABG per CT surgery. No chest pain or shortness of breath currently. Continue aspirin 81 mg daily, atorvastatin 80 mg nightly, lisinopril 10 mg daily, and metoprolol tartrate 25 mg p.o. every 12 hourly. 04/26/2023: -Patient seen and examined. Telemetry reviewed. Remains in normal sinus rhythm. Plan for CABG likely next week per CT surgery. On IV antibiotics per ID. Denies any chest pain or shortness of breath. Continue aspirin 81 mg daily, atorvastatin 80 mg nightly, lisinopril 10 mg daily, and metoprolol tartrate 25 mg p.o. every 12 hourly. at 1223 at 0714 RPT #:[id number] END OF REPORT [facility] 2023-04-25 17:38:00 [facility] Endocrinology Progress Note REPORT#:[id number] REPORT STATUS: Signed REPORT INITIALIZATION DATE:04/25/23 TIME: 1737 PATIENT: JONG RIVAS UNIT #: [id number] ROOM/BED: [place] [address] : 66 AGE: 58 SEX: M ATTEND: Domenic Rainey MD ADM AUTHOR: Vlad Lay MD REPT SERVICE DT/TIME: 04/25/231737 * ALL edits or amendments must be made on the electronic/computer document * Subjective Patient reports: no complaints Objective General VS: Last Documented: Result Date Time Pulse Ox 96 04/25 1638 B/P 157/80 04/25 1638 B/P Mean 105.5 04/25 1638 O2 Delivery Room air 04/25 1638 Temp 36.7 04/25 1638 Pulse 59 04/25 1638 Resp 18 04/25 1638 O2 Flow Rate 7 04/24 1013 PATIENT WEIGHT: Weight (lb): 231 Weight (oz): 4.24 Weight (kg): 104.900 Medications: Active Meds + DC'd Last 24 Hrs Insulin Human Lispro (HUMALOG) 7 UNIT AC SUBQ Insulin Glargine (Semglee) 15 UNIT BEDTIME SUBQ Diphenhydramine HCl (BENADRYL) 12.5 MG PACU ONCE PRN IV (DC) Fentanyl Citrate (SUBLIMAZE) 100 MCG PACU Q10MIN PRN PRN IV (DC) Fentanyl Citrate (SUBLIMAZE) 50 MCG PACU Q10MIN PRN PRN IV (DC) Hydralazine HCl (APRESOLINE) 5 MG PACU Q10MIN PRN PRN IV (DC) Hydrocodone Bitart/Acetaminophen (NORCO 5/325) 1 TAB PACU ONCE PO (DC) Hydromorphone HCl (DILAUDID) 1 MG PACU Q10MIN PRN PRN IV (DC) Hydromorphone HCl (DILAUDID) 0.5 MG PACU Q5MIN PRN PRN IV (DC) Insulin Human Lispro (HUMALOG) 0 PACU ONCE PRN SUBQ (DC) Labetalol HCl (LABETALOL HCL) 5 MG PACU Q10MIN PRN PRN IV (DC) Lactated Ringer's (LACTATED RINGERS) 1,000 ML .Q24H IV (DC) Meperidine HCl (MEPERIDINE HCL/PF) 12.5 MG PACU ONCE PRN IV (DC) Morphine Sulfate (morphine SULFATE) 2 MG PACU Q10MIN PRN PRN IV (DC) Ondansetron HCl (ZOFRAN) 4 MG PACU ONCE PRN IV (DC) Promethazine HCl (PHENERGAN) 25 MG PACU ONCE PRN PO (DC) Ropivacaine (NAROPIN 0.5% 150 MG/30mL) 150 MG ASDIR PRN LOCAL (DC) Tramadol HCl (ULTRAM) 50 MG PACU ONCE PO (DC) Metoprolol Tartrate (LOPRESSOR) 25 MG Q12HR PO Silver Sulfadiazine (SILVADENE 1% 50 GM CREAM) 1 APPLIC Q12HR TOPICAL Indomethacin (INDOCIN) 75 MG C BK PO Insulin Human Lispro (HUMALOG) 0 AC HS SUBQ Dextrose/Water (DEXTROSE 10% IN WATER) 125 ML ASDIR PRN IV (CKD) Dextrose/Water (DEXTROSE 10% IN WATER) 250 ML ASDIR PRN IV (CKD) Glucagon (GLUCAGON) 1 MG ASDIR PRN IM Mupirocin (BACTROBAN 2% 22 GM OINTMENT) 1 APPLIC BID NASAL Cefepime HCl (MAXIPIME) 1 GM Q6H IV Sodium Chloride (SODIUM CHLORIDE) 10 ML Metronidazole (FLAGYL) 500 MG Q8H PO Sodium Hypochlorite (DAKIN'S 1/2 STRENGTH 0.25% 480 ML TOP SOLN) 1 APPLIC BID TOPICAL Aspirin (ASPIRIN) 81 MG DAILY PO Lisinopril (ZESTRIL) 10 MG DAILY PO Polyethylene Glycol (MIRALAX) 17 GM DAILY PO Atorvastatin Calcium (LIPITOR) 80 MG BEDTIME PO Enoxaparin Sodium (lovENOX) 40 MG Q24H SUBQ (r) Gabapentin (NEURONTIN) 200 MG TID PO Acetaminophen (TYLENOL) 650 MG Q6H PRN PRN PO Docusate Sodium (COLACE) 100 MG Q12H PRN PRN PO Ondansetron HCl (ZOFRAN ODT) 4 MG Q6H PRN PRN PO Physical Exam General appearance: alert, awake Diagnosis, Assessment Plan Hospital course to date: Laboratory Tests: 04/25 04/25 04/25 04/24 1126 0720 0222 2002 Chemistry Sodium (134 - 147 mEq/L) 134 Potassium (3.4 - 5.0 mEq/L) 4.2 Chloride (100 - 108 mEq/L) 105 Carbon Dioxide (21 - 33 mEq/l) 23 Anion Gap (0 - 20) 11 BUN (7 - 25 mg/dL) 26 H Creatinine (0.6 - 1.3 mg/dL) 1.0 Glomerular Filtr Rate (90 - 95) 87.8 L Glucose (77 - 141 mg/dL) 168 H POC Glucose (70 - 110 MG/DL) 214 H 158 H 347 H Calcium (8.0 - 10.5 mg/dL) 9.2 Magnesium (1.6 - 2.6 mg/dL) 1.60 Hematology WBC (4.5 - 11.0 x10 3/uL) 11.9 H RBC (4.00 - 5.60 x10 6/uL) 3.89 L Hgb (12.5 - 16.9 g/dL) 11.6 L Hct (37.5 - 50.7 %) 34.7 L MCV (81.0 - 99.0 fL) 89.2 MCH (27.0 - 33.0 pg) 29.8 MCHC (33.0 - 37.0 g/dL) 33.4 RDW (11.5 - 14.5 %) 12.5 Plt Count (150 - 400 x10 3/uL) 316 MPV (7.0 - 9.0 fL) 10.5 H Neut % (Auto) (56.0 - 77.0 %) 80.7 H Lymph % (Auto) (14.0 - 32.0 %) 11.5 L [place] % (Auto) (4.8 - 9.0 %) 6.9 Eos % (Auto) (0.3 - 3.7 %) 0.2 L Baso % (Auto) (0.0 - 2.0 %) 0.2 Neut # (Auto) (2.0 - 7.6 x10 3/uL) 9.65 H Lymph # (Auto) (1.0 - 3.8 x10 3/uL) 1.37 [place] # (Auto) (0.1 - 0.8 x10 3/uL) 0.82 H Eos # (Auto) (0.0 - 0.2 x10 3/uL) 0.02 Baso # (Auto) (0.0 - 0.2 x10 3/uL) 0.02 Abs Immat Gran (auto) (0.00 - 0.03 x10 3/uL) 0.06 H Add Manual Diff NO Immature Gran % (0.0 - 2.0 %) 0.5 Nucleated RBC % (0 - 0 %) 0.0 Nucleated RBCs # (Man) (0.0 - 0.1 x10 3/uL) 0.00 Laboratory Tests: 04/24 04/24 04/24 04/24 04/24 1532 1108 1013 0645 0301 Chemistry Sodium (134 - 147 mEq/L) 135 Potassium (3.4 - 5.0 mEq/L) 4.3 Chloride (100 - 108 mEq/L) 106 Carbon Dioxide (21 - 33 mEq/l) 21 Anion Gap (0 - 20) 13 BUN (7 - 25 mg/dL) 18 Creatinine (0.6 - 1.3 mg/dL) 0.9 Glomerular Filtr Rate (90 - 95) 99.6 H Glucose (77 - 141 mg/dL) 113 POC Glucose (70 - 110 MG/DL) 310 H 176 H 149 H 141 H Calcium (8.0 - 10.5 mg/dL) 9.2 Magnesium (1.6 - 2.6 mg/dL) 1.68 Hematology WBC (4.5 - 11.0 x10 3/uL) 7.8 RBC (4.00 - 5.60 x10 6/uL) 3.93 L Hgb (12.5 - 16.9 g/dL) 11.7 L Hct (37.5 - 50.7 %) 35.6 L MCV (81.0 - 99.0 fL) 90.6 MCH (27.0 - 33.0 pg) 29.8 MCHC (33.0 - 37.0 g/dL) 32.9 L RDW (11.5 - 14.5 %) 12.3 Plt Count (150 - 400 x10 3/uL) 278 MPV (7.0 - 9.0 fL) 10.0 H Neut % (Auto) (56.0 - 77.0 %) 68.0 Lymph % (Auto) (14.0 - 32.0 %) 21.2 [place] % (Auto) (4.8 - 9.0 %) 7.9 Eos % (Auto) (0.3 - 3.7 %) 1.9 Baso % (Auto) (0.0 - 2.0 %) 0.4 Neut # (Auto) (2.0 - 7.6 x10 3/uL) 5.28 Lymph # (Auto) (1.0 - 3.8 x10 3/uL) 1.65 [place] # (Auto) (0.1 - 0.8 x10 3/uL) 0.61 Eos # (Auto) (0.0 - 0.2 x10 3/uL) 0.15 Baso # (Auto) (0.0 - 0.2 x10 3/uL) 0.03 Abs Immat Gran (auto) (0.00 - 0.03 0.05 H x10 3/uL) Immature Gran % (0.0 - 2.0 %) 0.6 Nucleated RBC % (0 - 0 %) 0.0 Nucleated RBCs # (Man) (0.0 - 0.1 0.00 x10 3/uL) 04/23 2019 Chemistry POC Glucose (70 - 110 MG/DL) 276 H Microbiology: Date/Time Procedure - Status Source Growth 04/24 1000 Tissue Culture - RES TISSUE 04/24 1000 Anaerobic Culture - RES TISSUE 04/24 1000 Gram Stain - RES TISSUE Laboratory Tests: 04/23 04/23 04/23 04/23 04/23 1550 1110 0703 0330 0330 Chemistry Sodium (134 - 147 mEq/L) 137 Potassium (3.4 - 5.0 mEq/L) 3.9 Chloride (100 - 108 mEq/L) 105 Carbon Dioxide (21 - 33 mEq/l) 22 Anion Gap (0 - 20) 14 BUN (7 - 25 mg/dL) 25 Creatinine (0.6 - 1.3 mg/dL) 1.1 Glomerular Filtr Rate (90 - 95) 78.3 L Glucose (77 - 141 mg/dL) 131 POC Glucose (70 - 110 MG/DL) 265 H 284 H 143 H Calcium (8.0 - 10.5 mg/dL) 9.4 Magnesium (1.6 - 2.6 mg/dL) 1.72 Hematology WBC (4.5 - 11.0 x10 3/uL) 10.1 RBC (4.00 - 5.60 x10 6/uL) 4.24 Hgb (12.5 - 16.9 g/dL) 12.7 Hct (37.5 - 50.7 %) 38.4 MCV (81.0 - 99.0 fL) 90.6 MCH (27.0 - 33.0 pg) 30.0 MCHC (33.0 - 37.0 g/dL) 33.1 RDW (11.5 - 14.5 %) 12.3 Plt Count (150 - 400 x10 3/uL) 332 MPV (7.0 - 9.0 fL) 10.3 H Neut % (Auto) (56.0 - 77.0 %) 71.8 Lymph % (Auto) (14.0 - 32.0 %) 18.0 [place] % (Auto) (4.8 - 9.0 %) 8.4 Eos % (Auto) (0.3 - 3.7 %) 0.8 Baso % (Auto) (0.0 - 2.0 %) 0.4 Neut # (Auto) (2.0 - 7.6 x10 3/uL) 7.28 Lymph # (Auto) (1.0 - 3.8 x10 3/uL) 1.82 [place] # (Auto) (0.1 - 0.8 x10 3/uL) 0.85 H Eos # (Auto) (0.0 - 0.2 x10 3/uL) 0.08 Baso # (Auto) (0.0 - 0.2 x10 3/uL) 0.04 Abs Immat Gran (auto) (0.00 - 0.03 0.06 H x10 3/uL) Immature Gran % (0.0 - 2.0 %) 0.6 Nucleated RBC % (0 - 0 %) 0.0 Nucleated RBCs # (Man) (0.0 - 0.1 0.00 x10 3/uL) 04/23 04/22 0252 2121 Chemistry POC Glucose (70 - 110 MG/DL) 197 H Toxicology Vancomycin Trough (10.0 - 20.0 mcg/mL) 12.1 Recent Impressions: MAGNETIC RESONANCE IMAGING - MRI LOW EXT W/O CONT LT 04/23 1034 Report Impression - Status: SIGNED Entered: 04/23/2023 1207 IMPRESSION: 5th MTP effusion/possible septic arthritis with osteomyelitis changes as detailed. No drainable soft tissue abscess. Impression By: [email or web address] - Aaron Lemuel Goldberg M.D. Laboratory Tests: 04/22 04/21 04/21 0421 1957 1555 Chemistry Sodium (134 - 147 mEq/L) 139 Potassium (3.4 - 5.0 mEq/L) 4.3 Chloride (100 - 108 mEq/L) 108 Carbon Dioxide (21 - 33 mEq/l) 22 Anion Gap (0 - 20) 14 BUN (7 - 25 mg/dL) 17 Creatinine (0.6 - 1.3 mg/dL) 0.9 Glomerular Filtr Rate (90 - 95) 99.6 H Glucose (77 - 141 mg/dL) 124 POC Glucose (70 - 110 MG/DL) 232 H 133 H Calcium (8.0 - 10.5 mg/dL) 9.0 Hematology WBC (4.5 - 11.0 x10 3/uL) 8.6 RBC (4.00 - 5.60 x10 6/uL) 3.89 L Hgb (12.5 - 16.9 g/dL) 11.5 L Hct (37.5 - 50.7 %) 36.2 L MCV (81.0 - 99.0 fL) 93.1 MCH (27.0 - 33.0 pg) 29.6 MCHC (33.0 - 37.0 g/dL) 31.8 L RDW (11.5 - 14.5 %) 12.5 Plt Count (150 - 400 x10 3/uL) 301 MPV (7.0 - 9.0 fL) 10.1 H Neut % (Auto) (56.0 - 77.0 %) 66.1 Lymph % (Auto) (14.0 - 32.0 %) 23.5 [place] % (Auto) (4.8 - 9.0 %) 7.4 Eos % (Auto) (0.3 - 3.7 %) 2.0 Baso % (Auto) (0.0 - 2.0 %) 0.6 Neut # (Auto) (2.0 - 7.6 x10 3/uL) 5.66 Lymph # (Auto) (1.0 - 3.8 x10 3/uL) 2.01 [place] # (Auto) (0.1 - 0.8 x10 3/uL) 0.63 Eos # (Auto) (0.0 - 0.2 x10 3/uL) 0.17 Baso # (Auto) (0.0 - 0.2 x10 3/uL) 0.05 Abs Immat Gran (auto) (0.00 - 0.03 x10 3/uL) 0.03 Immature Gran % (0.0 - 2.0 %) 0.4 Nucleated RBC % (0 - 0 %) 0.0 Nucleated RBCs # (Man) (0.0 - 0.1 x10 3/uL) 0.00 Microbiology: Date/Time Procedure - Status Source Growth 04/21 1535 Blood Culture - RECD BLOOD 04/21 1535 Blood Culture Gram Stain - RECD BLOOD 04/21 1535 Blood Culture - RECD BLOOD 04/21 1535 Blood Culture Gram Stain - RECD BLOOD Recent Impressions: RADIOLOGY - XR FOOT 3 + V LT 04/21 1423 Report Impression - Status: SIGNED Entered: 04/21/2023 1438 IMPRESSION: Interval progression of osteomyelitis involving the fifth metatarsal head and fifth proximal phalanx base about the MTP joint since the prior study from 04/16/2023. Impression By: [email or web address] - Brett Elizabeth M.D. Laboratory Tests: 04/21 04/21 04/21 04/21 1128 0931 0534 0132 Chemistry Sodium (134 - 147 mEq/L) 137 Potassium (3.4 - 5.0 mEq/L) 4.0 Chloride (100 - 108 mEq/L) 105 Carbon Dioxide (21 - 33 mEq/l) 24 Anion Gap (0 - 20) 12 BUN (7 - 25 mg/dL) 18 Creatinine (0.6 - 1.3 mg/dL) 1.1 Glomerular Filtr Rate (90 - 95) 78.3 L Glucose (77 - 141 mg/dL) 181 H POC Glucose (70 - 110 MG/DL) 172 H Calcium (8.0 - 10.5 mg/dL) 9.3 Magnesium (1.6 - 2.6 mg/dL) 1.61 C-Reactive Protein (<10.0 mg/L) 25.0 H Hematology WBC (4.5 - 11.0 x10 3/uL) 7.0 RBC (4.00 - 5.60 x10 6/uL) 4.05 Hgb (12.5 - 16.9 g/dL) 12.0 L Hct (37.5 - 50.7 %) 36.5 L MCV (81.0 - 99.0 fL) 90.1 MCH (27.0 - 33.0 pg) 29.6 MCHC (33.0 - 37.0 g/dL) 32.9 L RDW (11.5 - 14.5 %) 12.0 Plt Count (150 - 400 x10 3/uL) 305 MPV (7.0 - 9.0 fL) 10.5 H Neut % (Auto) (56.0 - 77.0 %) 61.3 Lymph % (Auto) (14.0 - 32.0 %) 27.0 [place] % (Auto) (4.8 - 9.0 %) 8.9 Eos % (Auto) (0.3 - 3.7 %) 1.7 Baso % (Auto) (0.0 - 2.0 %) 0.7 Neut # (Auto) (2.0 - 7.6 x10 3/uL) 4.28 Lymph # (Auto) (1.0 - 3.8 x10 3/uL) 1.89 [place] # (Auto) (0.1 - 0.8 x10 3/uL) 0.62 Eos # (Auto) (0.0 - 0.2 x10 3/uL) 0.12 Baso # (Auto) (0.0 - 0.2 x10 3/uL) 0.05 Abs Immat Gran (auto) (0.00 - 0.03 x10 3/uL) 0.03 Immature Gran % (0.0 - 2.0 %) 0.4 Nucleated RBC % (0 - 0 %) 0.0 Nucleated RBCs # (Man) (0.0 - 0.1 x10 3/uL) 0.00 ESR Westergren (0 - 15 mm/hr) 87 H Urines Urine Color (YEL/STRAW) YELLOW Urine Appearance (CLEAR) CLEAR Urine pH (5.0 - 7.0) 5.0 Ur Specific [place] (1.005 - 1.030) 1.011 Urine Protein (NEGATIVE) NEGATIVE Urine Glucose (UA) (NEGATIVE) 3+ H Urine Ketones (NEGATIVE) NEGATIVE Urine Blood (NEGATIVE) NEGATIVE Urine Nitrite (NEGATIVE) NEGATIVE Urine Bilirubin (NEGATIVE) NEGATIVE Urine Urobilinogen (0.2 - 1.0 mg/dL) 0.2 Ur Leukocyte Esterase (NEGATIVE) NEGATIVE Urine RBC (0 - 3 RBC/HPF) 0-3 Urine WBC (0 - 3 WBC/HPF) 0-3 Ur Squamous Epith Cells (NONE SEEN /HPF) 0-5 Ur Transition Epith Cell (NONE SEEN /HPF) TRACE Urine Bacteria (NONE SEEN /HPF) TRACE Urine Mucus (NONE SEEN /LPF) TRACE 04/20 Chemistry POC Glucose (70 - 110 MG/DL) 325 H Coagulation INR (0.8 - 1.2) 1.3 H PTT ([place]) (25.0 - 39.5 Seconds) 39.3 PT Patient/Control Mix (9.3 - 12.9 SECONDS) 14.5 H Microbiology: Date/Time Procedure - Status Source Growth 04/21 153 Blood Culture - RECD BLOOD 04/21 1535 Blood Culture Gram Stain - RECD BLOOD 04/21 1535 Blood Culture - RECD BLOOD 04/21 1535 Blood Culture Gram Stain - RECD BLOOD Recent Impressions: RADIOLOGY - XR FOOT 3 + V LT 04/21 1423 Report Impression - Status: SIGNED Entered: 04/21/2023 1438 IMPRESSION: Interval progression of osteomyelitis involving the fifth metatarsal head and fifth proximal phalanx base about the MTP joint since the prior study from 04/16/2023. Impression By: [email or web address] - Brett Elizabeth M.D. 1. 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 2. Coronary artery disease. 6 3. For CABG 4. Ex-smoker 5.Left foot wound 6.Hypertension. 7. Hyperlipidemia Blood sugar 158-116 mg/dL. HbA1c 8.3%. Lipids elevated.This Adjust insulin dose. Diabetes dietary education. 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 Review of Systems Constitutional: Reports: fatigue. Skin: Denies: bruising, contusion, diaphoresis, ecchymosis. Allergy/Immun: Denies: allergic reaction, itching, rhinorrhea, sneezing. Eyes: Denies: redness, discharge, visual loss/blurred. ENT: Denies: throat pain, throat swelling, tongue pain, tongue swelling, toothache. Respiratory: Reports: MENDES (dyspnea on exertion). Denies: SOB, wheezing. Cardiovascular: Denies: chest pain, edema, orthopnea, palpitations. GI: Denies: abdominal pain, nausea, vomiting. : Denies: dysuria, flank pain. Musculoskeletal: Denies: extremity pain, extremity swelling. Psych: Denies: agitation, anxiety, auditory hallucination, visual hallucination. All systems rev neg: except as marked Objective General VS/I O Last Documented: Result Date Time Pulse Ox 94 04/25 1130 B/P 98/56 04/25 1130 B/P Mean 0.0 04/25 1130 O2 Delivery Room air 04/25 1130 Temp 97.3 04/25 113 Pulse 64 04/25 1130 Resp 16 04/25 113 O2 Flow Rate 7 04/24 1013 24 hour I O ending at 0700: 04/25 0700 04/24 1900 Intake Total 600 Output Total 600 930 Balance -600 -330 Intake, Oral 600 Number Voids 1 Output, Urine 600 930 PATIENT WEIGHT: Weight (lb): 231 Weight (oz): 4.24 Weight (kg): 104.900 Physical Exam General appearance: alert, awake, oriented, no acute distress Wound/incision: Location: Left foot ulcer HEENT: anicteric, mucosal membranes moist, pupils reactive to light Neck: full range of motion, non-tender Cardiovascular: normal heart sounds, regular rate rhythm Respiratory: aerating well, clear to auscultation, symmetric expansion, no distress Abdomen: soft, non-tender Genitourinary: no bladder distention, no flank pain Extremities: dry, moves all, normal capillary refill, normal temperature Musculoskeletal: full range of motion, painless range of motion 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, 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 X 3 Psychiatry: normal affect, normal judgment/insight Current Medications Medications: Active Meds + DC'd Last 24 Hrs Insulin Human Lispro (HUMALOG) 7 UNIT AC SUBQ Insulin Glargine (Semglee) 15 UNIT BEDTIME SUBQ Diphenhydramine HCl (BENADRYL) 12.5 MG PACU ONCE PRN IV (DC) Fentanyl Citrate (SUBLIMAZE) 100 MCG PACU Q10MIN PRN PRN IV (DC) Fentanyl Citrate (SUBLIMAZE) 50 MCG PACU Q10MIN PRN PRN IV (DC) Hydralazine HCl (APRESOLINE) 5 MG PACU Q10MIN PRN PRN IV (DC) Hydrocodone Bitart/Acetaminophen (NORCO 5/325) 1 TAB PACU ONCE PO (DC) Hydromorphone HCl (DILAUDID) 1 MG PACU Q10MIN PRN PRN IV (DC) Hydromorphone HCl (DILAUDID) 0.5 MG PACU Q5MIN PRN PRN IV (DC) Insulin Human Lispro (HUMALOG) 0 PACU ONCE PRN SUBQ (DC) Labetalol HCl (LABETALOL HCL) 5 MG PACU Q10MIN PRN PRN IV (DC) Lactated Ringer's (LACTATED RINGERS) 1,000 ML .Q24H IV (DC) Meperidine HCl (MEPERIDINE HCL/PF) 12.5 MG PACU ONCE PRN IV (DC) Morphine Sulfate (morphine SULFATE) 2 MG PACU Q10MIN PRN PRN IV (DC) Ondansetron HCl (ZOFRAN) 4 MG PACU ONCE PRN IV (DC) Promethazine HCl (PHENERGAN) 25 MG PACU ONCE PRN PO (DC) Ropivacaine (NAROPIN 0.5% 150 MG/30mL) 150 MG ASDIR PRN LOCAL (DC) Tramadol HCl (ULTRAM) 50 MG PACU ONCE PO (DC) Insulin Human Lispro (HUMALOG) 5 UNIT AC SUBQ (DC) Insulin Glargine (Semglee) 13 UNIT BEDTIME SUBQ (DC) Metoprolol Tartrate (LOPRESSOR) 25 MG Q12HR PO Silver Sulfadiazine (SILVADENE 1% 50 GM CREAM) 1 APPLIC Q12HR TOPICAL Indomethacin (INDOCIN) 75 MG C BK PO Insulin Human Lispro (HUMALOG) 0 AC HS SUBQ Dextrose/Water (DEXTROSE 10% IN WATER) 125 ML ASDIR PRN IV (CKD) Dextrose/Water (DEXTROSE 10% IN WATER) 250 ML ASDIR PRN IV (CKD) Glucagon (GLUCAGON) 1 MG ASDIR PRN IM Mupirocin (BACTROBAN 2% 22 GM OINTMENT) 1 APPLIC BID NASAL Cefepime HCl (MAXIPIME) 1 GM Q6H IV Sodium Chloride (SODIUM CHLORIDE) 10 ML Metronidazole (FLAGYL) 500 MG Q8H PO Sodium Hypochlorite (DAKIN'S 1/2 STRENGTH 0.25% 480 ML TOP SOLN) 1 APPLIC BID TOPICAL Aspirin (ASPIRIN) 81 MG DAILY PO Lisinopril (ZESTRIL) 10 MG DAILY PO Polyethylene Glycol (MIRALAX) 17 GM DAILY PO Atorvastatin Calcium (LIPITOR) 80 MG BEDTIME PO Enoxaparin Sodium (lovENOX) 40 MG Q24H SUBQ (DA) Gabapentin (NEURONTIN) 200 MG TID PO Acetaminophen (TYLENOL) 650 MG Q6H PRN PRN PO Docusate Sodium (COLACE) 100 MG Q12H PRN PRN PO Ondansetron HCl (ZOFRAN ODT) 4 MG Q6H PRN PRN PO Results Findings/Data: Laboratory Tests 04/25 04/25 04/25 04/24 04/24 1126 0720 0222 2002 1532 Chemistry Sodium (134 - 147 mEq/L) 134 Potassium (3.4 - 5.0 mEq/L) 4.2 Chloride (100 - 108 mEq/L) 105 Carbon Dioxide (21 - 33 mEq/l) 23 Anion Gap (0 - 20) 11 BUN (7 - 25 mg/dL) 26 H Creatinine (0.6 - 1.3 mg/dL) 1.0 Glomerular Filtr Rate (90 - 95) 87.8 L Glucose (77 - 141 mg/dL) 168 H POC Glucose (70 - 110 MG/DL) 214 H 158 H 347 H 310 H Calcium (8.0 - 10.5 mg/dL) 9.2 Magnesium (1.6 - 2.6 mg/dL) 1.60 Laboratory Tests 04/25 0222 Hematology WBC (4.5 - 11.0 x10 3/uL) 11.9 H RBC (4.00 - 5.60 x10 6/uL) 3.89 L Hgb (12.5 - 16.9 g/dL) 11.6 L Hct (37.5 - 50.7 %) 34.7 L MCV (81.0 - 99.0 fL) 89.2 MCH (27.0 - 33.0 pg) 29.8 MCHC (33.0 - 37.0 g/dL) 33.4 RDW (11.5 - 14.5 %) 12.5 Plt Count (150 - 400 x10 3/uL) 316 MPV (7.0 - 9.0 fL) 10.5 H Neut % (Auto) (56.0 - 77.0 %) 80.7 H Lymph % (Auto) (14.0 - 32.0 %) 11.5 L [place] % (Auto) (4.8 - 9.0 %) 6.9 Eos % (Auto) (0.3 - 3.7 %) 0.2 L Baso % (Auto) (0.0 - 2.0 %) 0.2 Neut # (Auto) (2.0 - 7.6 x10 3/uL) 9.65 H Lymph # (Auto) (1.0 - 3.8 x10 3/uL) 1.37 [place] # (Auto) (0.1 - 0.8 x10 3/uL) 0.82 H Eos # (Auto) (0.0 - 0.2 x10 3/uL) 0.02 Baso # (Auto) (0.0 - 0.2 x10 3/uL) 0.02 Abs Immat Gran (auto) (0.00 - 0.03 x10 3/uL) 0.06 H Add Manual Diff NO Immature Gran % (0.0 - 2.0 %) 0.5 Nucleated RBC % (0 - 0 %) 0.0 Nucleated RBCs # (Man) (0.0 - 0.1 x10 3/uL) 0.00 Diagnosis, Assessment Plan Free Text A P: 57-year-old male, poor historian, PMHx diabetes on metformin, neuropathy, HTN, former smoker, PE chronic nonhealing left foot ulcer at the fifth metatarsal located posterior lateral, with no known prior cardiovascular disease. Patient transferred from [facility], referred to us from Dr. Forde for acute coronary syndrome, unstable angina, ischemic heart disease status post coronary angiogram, with findings of multivessel CAD, EF 50%. Upon further chart review patient found to have chronic cavitary lung lesion on CT chest pending QuantiFERON, left lower extremity diabetic foot ulcer concerning for osteomyelitis MRI done at [place] and will upload imaging, foot wound culture with pseudomonas, UTI with urine culture Pseudomonas treated with cefepime. Patient reports dyspnea on exertion and mild chest pain x1 year. 04/18/23: Coronary angiogram done at [facility] Left main patent LAD with high-grade and tortuous calcified lesion just after the first diagonal estimated 95% stenosis first diagonal branch with severe calcified disease 99% Ramus 90 to 95% stenosis, left circumflex artery 99% proximal stenosis OM branches severe disease as well. RCA 90%. LVEDP 11 mmHg and angiography demonstrated preserved LV systolic function, EF 50%. Inferior wall demonstrated mild hypokinesis. 1-2+ MR on LV angio. RICHARDS patent Carotid angiogram, patent carotids Assessment: CAD, severe multivessel Left foot nonhealing foot ulcer Chronic cavitary lesion noted on CT chest UTI Pseudomonas 2023 Patient seen and evaluated by Dr. Rainey CABG eval underway -Consult pulmonology, cardiology, wound care -Lovenox DVT prophylaxis Continue supportive care Further recommendations to follow 04/21/2023 CABG eval underway Patient sitting up in bed, room air, no distress. No complaints Patient with multiple complex medical issues ongoing. Timing of major CV surgery pending medical optimization. We will discuss patient at high risk CV Case conference on Tuesday. -Continue supportive care Seen and examined by Dr. Rainey 04/23/2023 CABG eval underway Patient sitting up in bed, room air, no distress. No complaints Patient with multiple complex medical issues ongoing. Timing of major CV surgery pending medical optimization. Left foot MRI complete with fifth MTP effusion/possible septic arthritis with osteomyelitis changes, no drainable soft tissue abscess. -Amputation left fifth toe and metatarsal scheduled by podiatry for tomorrow -Blood cultures 04/21/2023 no growth after 24-hour -UA negative -Lovenox DVT prophylaxis Continue supportive care Further recommendations to follow 04/24/2023 CABG eval underway Patient sitting up in bed, room air, no distress. No complaints -Amputation left fifth toe and metatarsal scheduled by podiatry for today -Blood cultures 04/21/2023 no growth after 48-hour -follow tissue culture Continue supportive care Further recommendations to follow 04/25/2023 CABG eval underway, plan for OR likely next week to allow patient some time to recover from amputation. Patient sitting up in bed, room air, no distress. No complaints S/P Amputation left fifth toe and metatarsal -Blood cultures 04/21/2023 no growth after 72-hour Encourage OOBTC, IS, PT/OT Continue supportive care Further recommendations to follow Consultants: cardiology, cardiovascular surgery, pulmonary Code status: full code Plan discussed with: patient, collaborating MD, nurse at 1444 at 0536 RPT #:[id number] END OF REPORT [facility] 2023-04-25 12:14:00 [facility] ([facility]) Cardiology Progress Note REPORT#:[id number] REPORT STATUS: Signed REPORT INITIALIZATION DATE:04/25/23 TIME: 1214 PATIENT: JONG RIVAS UNIT #: [id number] ROOM/BED: [id number] : 67 AGE: 58 SEX: M ATTEND: Domenic Rainey MD ADM AUTHOR: Noemí Nieto MD REPT SERVICE DT/TIME: 04/25/23 1214 * ALL edits or amendments must be made on the electronic/computer document * Subjective HPI: 58-year-old male with past medical history of [id number] diabetes mellitus, hypertension, history of PE previously on anticoagulation, right lung cavitary lesion was seen at [facility] on 04/15/2023 with a complaint of shortness of breath for few weeks and chest pain. Patient was found to have initial troponin I of 0.045. In addition, his BNP was thousand 54 pg/mL. Initial EKG showed normal sinus rhythm with right bundle branch block. He was deemed to have NSTEMI. Subsequently, he underwent coronary angiogram via right femoral approach and was found to have multivessel CAD including severe proximal LAD stenosis, severe ostial to proximal circumflex stenosis and a dominant vessel, and nondominant RCA. LVEDP was 13 mmHg. During hospital stay, he was also diagnosed with left diabetic foot infection. Subsequently MRI of the foot showed osteomyelitis of the left fifth toe. Patient was started on IV antibiotics. Cultures grew Pseudomonas aeruginosa and Staph aureus. In addition, patient was deemed to have UTI. Patient was transferred to [facility] for further work-up including possible evaluation for CABG versus high risk PCI. Patient seen this afternoon. Denies any chest pain or shortness of breath at this point. Overall, poor historian. Not able to tell what medications he takes at home. EKG done today 2023 showed normal sinus rhythm with right bundle branch block. Echocardiogram done today showed normal EF, no wall motion normalities, no significant valvular abnormalities. Objective General VS/I O: 24 hour I O ending at 0700: 04/25 0700 04/24 1900 Intake Total 600 Output Total 600 930 Balance -600 -330 Intake, Oral 600 Number Voids 1 Output, Urine 600 930 Vital Signs: Date Time Temp Pulse Resp B/P B/P Pulse O2 O2 Flow FiO2 Mean Ox Delivery Rate 04/25 1130 97.3 64 16 98/56 0.0 94 Room air 04/25 0722 98.2 63 18 109/64 0.0 97 Room air 04/25 0404 69 21 107/61 78 94 04/25 0404 98.1 71 15 107/61 0.0 97 Room air 04/25 0300 68 16 95 04/25 0000 79 25 96 04/24 2339 98.2 73 15 108/64 0.0 96 Room air 04/24 2300 76 14 96 04/24 2200 78 20 94 04/24 2000 86 24 98 04/24 1900 96 99 04/24 1828 97.9 94 20 128/82 0.0 97 Room air 04/24 1709 84 25 97 04/24 1700 83 21 97 04/24 1600 81 13 95 04/24 1531 98.1 82 18 117/73 87.3 95 04/24 1500 80 13 93 04/24 1400 87 31 98 04/24 1300 89 23 98 04/24 1230 81 21 127/72 95 99 PATIENT WEIGHT: Weight (lb): 231 Weight (oz): 4.24 Weight (kg): 104.900 Medications: Active Meds + DC'd Last 24 Hrs Insulin Human Lispro (HUMALOG) 7 UNIT AC SUBQ Insulin Glargine (Semglee) 15 UNIT BEDTIME SUBQ Diphenhydramine HCl (BENADRYL) 12.5 MG PACU ONCE PRN IV (DC) Fentanyl Citrate (SUBLIMAZE) 100 MCG PACU Q10MIN PRN PRN IV (DC) Fentanyl Citrate (SUBLIMAZE) 50 MCG PACU Q10MIN PRN PRN IV (DC) Hydralazine HCl (APRESOLINE) 5 MG PACU Q10MIN PRN PRN IV (DC) Hydrocodone Bitart/Acetaminophen (NORCO 5/325) 1 TAB PACU ONCE PO (DC) Hydromorphone HCl (DILAUDID) 1 MG PACU Q10MIN PRN PRN IV (DC) Hydromorphone HCl (DILAUDID) 0.5 MG PACU Q5MIN PRN PRN IV (DC) Insulin Human Lispro (HUMALOG) 0 PACU ONCE PRN SUBQ (DC) Labetalol HCl (LABETALOL HCL) 5 MG PACU Q10MIN PRN PRN IV (DC) Lactated Ringer's (LACTATED RINGERS) 1,000 ML .Q24H IV (DC) Meperidine HCl (MEPERIDINE HCL/PF) 12.5 MG PACU ONCE PRN IV (DC) Morphine Sulfate (morphine SULFATE) 2 MG PACU Q10MIN PRN PRN IV (DC) Ondansetron HCl (ZOFRAN) 4 MG PACU ONCE PRN IV (DC) Promethazine HCl (PHENERGAN) 25 MG PACU ONCE PRN PO (DC) Ropivacaine (NAROPIN 0.5% 150 MG/30mL) 150 MG ASDIR PRN LOCAL (DC) Tramadol HCl (ULTRAM) 50 MG PACU ONCE PO (DC) Insulin Human Lispro (HUMALOG) 5 UNIT AC SUBQ (DC) Insulin Glargine (Semglee) 13 UNIT BEDTIME SUBQ (DC) Metoprolol Tartrate (LOPRESSOR) 25 MG Q12HR PO Silver Sulfadiazine (SILVADENE 1% 50 GM CREAM) 1 APPLIC Q12HR TOPICAL Indomethacin (INDOCIN) 75 MG C BK PO Insulin Human Lispro (HUMALOG) 0 AC HS SUBQ Dextrose/Water (DEXTROSE 10% IN WATER) 125 ML ASDIR PRN IV (CKD) Dextrose/Water (DEXTROSE 10% IN WATER) 250 ML ASDIR PRN IV (CKD) Glucagon (GLUCAGON) 1 MG ASDIR PRN IM Mupirocin (BACTROBAN 2% 22 GM OINTMENT) 1 APPLIC BID NASAL Cefepime HCl (MAXIPIME) 1 GM Q6H IV Sodium Chloride (SODIUM CHLORIDE) 10 ML Metronidazole (FLAGYL) 500 MG Q8H PO Sodium Hypochlorite (DAKIN'S 1/2 STRENGTH 0.25% 480 ML TOP SOLN) 1 APPLIC BID TOPICAL Aspirin (ASPIRIN) 81 MG DAILY PO Lisinopril (ZESTRIL) 10 MG DAILY PO Polyethylene Glycol (MIRALAX) 17 GM DAILY PO Atorvastatin Calcium (LIPITOR) 80 MG BEDTIME PO Enoxaparin Sodium (lovENOX) 40 MG Q24H SUBQ (DA) Gabapentin (NEURONTIN) 200 MG TID PO Acetaminophen (TYLENOL) 650 MG Q6H PRN PRN PO Docusate Sodium (COLACE) 100 MG Q12H PRN PRN PO Ondansetron HCl (ZOFRAN ODT) 4 MG Q6H PRN PRN PO Results Findings/Data: Laboratory Tests 04/25 04/25 04/24 04/24 07 [id number] 1532 Chemistry Sodium (134 - 147 mEq/L) 134 Potassium (3.4 - 5.0 mEq/L) 4.2 Chloride (100 - 108 mEq/L) 105 Carbon Dioxide (21 - 33 mEq/l) 23 Anion Gap (0 - 20) 11 BUN (7 - 25 mg/dL) 26 H Creatinine (0.6 - 1.3 mg/dL) 1.0 Glomerular Filtr Rate (90 - 95) 87.8 L Glucose (77 - 141 mg/dL) 168 H POC Glucose (70 - 110 MG/DL) 158 H 347 H 310 H Calcium (8.0 - 10.5 mg/dL) 9.2 Magnesium (1.6 - 2.6 mg/dL) 1.60 Laboratory Tests 04/25 0222 Hematology WBC (4.5 - 11.0 x10 3/uL) 11.9 H RBC (4.00 - 5.60 x10 6/uL) 3.89 L Hgb (12.5 - 16.9 g/dL) 11.6 L Hct (37.5 - 50.7 %) 34.7 L MCV (81.0 - 99.0 fL) 89.2 MCH (27.0 - 33.0 pg) 29.8 MCHC (33.0 - 37.0 g/dL) 33.4 RDW (11.5 - 14.5 %) 12.5 Plt Count (150 - 400 x10 3/uL) 316 MPV (7.0 - 9.0 fL) 10.5 H Neut % (Auto) (56.0 - 77.0 %) 80.7 H Lymph % (Auto) (14.0 - 32.0 %) 11.5 L [place] % (Auto) (4.8 - 9.0 %) 6.9 Eos % (Auto) (0.3 - 3.7 %) 0.2 L Baso % (Auto) (0.0 - 2.0 %) 0.2 Neut # (Auto) (2.0 - 7.6 x10 3/uL) 9.65 H Lymph # (Auto) (1.0 - 3.8 x10 3/uL) 1.37 [place] # (Auto) (0.1 - 0.8 x10 3/uL) 0.82 H Eos # (Auto) (0.0 - 0.2 x10 3/uL) 0.02 Baso # (Auto) (0.0 - 0.2 x10 3/uL) 0.02 Abs Immat Gran (auto) (0.00 - 0.03 x10 3/uL) 0.06 H Add Manual Diff NO Immature Gran % (0.0 - 2.0 %) 0.5 Nucleated RBC % (0 - 0 %) 0.0 Nucleated RBCs # (Man) (0.0 - 0.1 x10 3/uL) 0.00 Laboratory Tests 04/25 222 Chemistry Magnesium (1.6 - 2.6 mg/dL) 1.60 Free Text Obj Notes Free Text Obj Notes: GENERAL: Well developed, in no distress HEENT: Normocephalic, atraumatic NECK: JVP not raised LUNGS: Equal air entry bilaterally, normal vesicular breathing HEART: regular rate, normal S1 and S2, No murmurs, ABDOMEN: Soft, lax, non-tender, non-distended PERIPHERAL PULSES: 2+ dorsalis pedis pulses, left foot covered with dressing EXTREMITIES: No edema Diagnosis, Assessment Plan Consultants: cardiology, cardiovascular surgery, pulmonary Free Text DxA P Notes Free Text DxA P Notes: #NSTEMI #Severe multivessel CAD #Left foot diabetic foot infection with osteomyelitis #Urinary tract infection #Hyperlipidemia #Diabetes mellitus-A1c 8.3 #Essential hypertension #Right lung cavitary lesion PLAN: -CABG work-up per CT surgery versus high risk PCI. -We will get arterial Doppler bilateral lower extremities to evaluate for PAD given left diabetic foot infection. -IV antibiotics per ID -Continue aspirin 81 mg daily. Increase atorvastatin from 40 mg to 80 mg nightly. Start metoprolol tartrate 12.5 mg twice daily. -Continue lisinopril 10 mg daily. 04/21/2023 -Patient seen and examined. Telemetry reviewed. Remains in sinus rhythm. Arterial duplex yesterday showed no evidence of any hemodynamically significant stenosis in the bilateral lower extremity arteries. LDL 92 mg/dL. Atorvastatin increased to 80 mg nightly yesterday. Continue aspirin 81 mg daily, lisinopril 10 mg daily, metoprolol tartrate 12.5 mg twice daily. ID on board for osteomyelitis. CT surgery on board for consideration of CABG. Timing will depend on treatment of foot infection. 04/22/2023: -Patient seen and examined. Telemetry reviewed. Remains in normal sinus rhythm. Increase metoprolol to tartrate to 25 mg twice daily. ID on board for osteomyelitis. Plan for CABG per CT surgery when medically stable and infection improved/resolved. Continue aspirin, high intensity atorvastatin, and lisinopril 10 mg daily. 04/25/2023: -Patient seen and examined. Telemetry reviewed. Remains in normal sinus rhythm. Underwent successful left foot fifth proximal phalanx and fifth metatarsal head resection yesterday. 6 weeks of IV antibiotic treatment plan per ID for osteomyelitis. Planning for CABG per CT surgery. No chest pain or shortness of breath currently. Continue aspirin 81 mg daily, atorvastatin 80 mg nightly, lisinopril 10 mg daily, and metoprolol tartrate 25 mg p.o. every 12 hourly. at 1218 at 0713 RPT #:[id number] END OF REPORT [facility] 2023-04-25 10:02:00 [facility] ([facility] Infectious Dis. Progress Note REPORT#:[id number] REPORT STATUS: Signed REPORT INITIALIZATION DATE:04/25/23 TIME: 1002 PATIENT: JONG RIVAS UNIT #: [id number] ROOM/BED: [address] : 67 AGE: 58 SEX: M ATTEND: Domenic Rainey MD ADM AUTHOR: Kirk Wakefield MD REPT SERVICE DT/TIME: 04/25/23 1002 * ALL edits or amendments must be made on the electronic/computer document * Subjective Chief complaint: Left-sided diabetic foot infection with osteomyelitis HPI: Patient reports feeling okay subjectively and denies acute or new complaints currently. No major overnight events. Objective General VS/I O: Vital Signs Date Temp Pulse Resp B/P B/P Mean Pulse Ox FiO2 04/24-04/25 97.3-98.2 59-96 14-25 98-157/56-82 0.0-105.5 94-99 Last Documented: Result Date Time Pulse Ox 96 04/25 1638 B/P 157/80 04/25 1638 B/P Mean 105.5 04/25 1638 O2 Delivery Room air 04/25 1638 Temp 98.1 04/25 1638 Pulse 59 04/25 1638 Resp 18 04/25 1638 O2 Flow Rate 7 04/24 1013 Vital Signs: Date Time Temp Pulse Resp B/P B/P Pulse O2 O2 Flow FiO2 Mean Ox Delivery Rate 04/25 1638 98.1 59 18 157/80 105.5 96 Room air 04/25 1130 97.3 64 16 98/56 0.0 94 Room air 04/25 0722 98.2 63 18 109/64 0.0 97 Room air 04/25 0404 69 21 107/61 78 94 04/25 0404 98.1 71 15 107/61 0.0 97 Room air 04/25 0300 68 16 95 04/25 0000 79 25 96 04/24 2339 98.2 73 15 108/64 0.0 96 Room air 04/24 2300 76 14 96 04/24 2200 78 20 94 04/24 2000 86 24 98 04/24 1900 96 99 04/24 1828 97.9 94 20 128/82 0.0 97 Room air 04/24 1709 84 25 97 04/24 1700 83 21 97 24 hour I O ending at 0700: 04/25 0700 04/24 1900 Intake Total 600 Output Total 600 930 Balance -600 -330 Intake, Oral 600 Number Voids 1 Output, Urine 600 930 PATIENT WEIGHT: Weight (lb): 231 Weight (oz): 4.24 Weight (kg): 104.900 Physical Exam General appearance: alert, awake, no acute distress Cardiovascular: normal heart sounds, regular rate rhythm, no murmur Respiratory: clear to auscultation, aerating well, symmetric expansion Abdomen: non-tender, soft, no distention Extremities: no cyanosis, no edema 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 Rivas is a 58-year-old male with history of diabetes mellitus type 2, hypertension, prior smoking history, chronic PE, chronic left foot ulcer. He was admitted at [facility] with complaints of chest pain. He had a coronary angiogram done which showed multivessel CAD and EF of 50%. Patient also has a right lower lobe cavitary lung lesion, which is suspected to be from prior PE. TB QuantiFERON has been requested at the outside facility and was pending at the time of transfer. Infectious disease consultation is requested because patient has a chronic, nonhealing wound in the left lateral foot for last 7 to 8 months according to him. The wound is obviously infected and foul-smelling on exam. He had an MRI done at the outside facility, which shows osteomyelitis of the fifth metatarsal. Patient has a PICC line in place, from outside facility. I was able to review blood cultures, which were reportedly negative at 48 hours. He did have a urine culture positive for Pseudomonas. Other culture data is not available to me. Infectious disease consultation is requested for left-sided diabetic foot infection with osteomyelitis. Patient is being evaluated for possible CABG versus high risk PCI *Left-sided diabetic foot infection with osteomyelitis *Left foot cellulitis *Multivessel CAD *RLL cavitary lung lesion, question due to prior PE *Pseudomonas UTI, treated with cefepime *Diabetes mellitus type 2 *Hypertension *Peripheral neuropathy *Prior PE -Afebrile. -Leukocytosis of 11.9 on today's CBC noted. -ESR 87; CRP 25 on 04/21/2023. -Blood cultures 04/21/23 negative x 2. -MRSA screen negative. -Called [facility] today. Patient's blood cultures have been negative there. Wound culture is positive for MSSA and Pseudomonas ( pansensitive isolate). -Podiatry service is following. Patient is now s/p left foot I D and fifth proximal phalanx and metatarsal head resection on 04/24/2023. Plan: -Continue cefepime and metronidazole -Continue local wound care. -Glycemic control. -Patient is now s/p I D per podiatry. -This should provide source control. -He has been on antibiotics x 5 days approximately. -From ID standpoint, CABG can be planned after he has been on antibiotics for at least 1 week (that is after 04/27/2023). -Overall, plan for a 6-week course of antibiotic treatment, given osteomyelitis. -Further recommendations to follow based upon clinical course. CURRENT ANTIMICROBIALS: Cefepime + metronidazole, started 04/21/2023, day 5 at 1656 RPT #:[id number] END OF REPORT [facility] 2023-04-24 17:33:00 [facility] ([facility]) Endocrinology Progress Note REPORT#:[id number] REPORT STATUS: Signed REPORT INITIALIZATION DATE:04/24/23 TIME: 1732 PATIENT: JONG RIVAS UNIT #: [id number] ROOM/BED: [place] [address] : 66 AGE: 58 SEX: M ATTEND: Domenic Rainey MD ADM AUTHOR: Vlad Lay MD REPT SERVICE DT/TIME: 04/24/231732 * ALL edits or amendments must be made on the electronic/computer document * Subjective Patient reports: no complaints Objective General VS: Last Documented: Result Date Time Pulse Ox 97 04/24 1709 Pulse 84 04/24 1709 Resp 25 04/24 1709 B/P 117/73 04/24 1531 B/P Mean 87.3 04/24 1531 Temp 36.7 04/24 1531 O2 Delivery Room air 04/24 1025 O2 Flow Rate 7 04/24 1013 PATIENT WEIGHT: Weight (lb): 231 Weight (oz): 4.24 Weight (kg): 104.900 Medications: Active Meds + DC'd Last 24 Hrs Diphenhydramine HCl (BENADRYL) 12.5 MG PACU ONCE PRN IV Fentanyl Citrate (SUBLIMAZE) 100 MCG PACU Q10MIN PRN PRN IV Fentanyl Citrate (SUBLIMAZE) 50 MCG PACU Q10MIN PRN PRN IV Hydralazine HCl (APRESOLINE) 5 MG PACU Q10MIN PRN PRN IV Hydrocodone Bitart/Acetaminophen (NORCO 5/325) 1 TAB PACU ONCE PO (CKD) Hydromorphone HCl (DILAUDID) 1 MG PACU Q10MIN PRN PRN IV Hydromorphone HCl (DILAUDID) 0.5 MG PACU Q5MIN PRN PRN IV Insulin Human Lispro (HUMALOG) 0 PACU ONCE PRN SUBQ Labetalol HCl (LABETALOL HCL) 5 MG PACU Q10MIN PRN PRN IV Lactated Ringer's (LACTATED RINGERS) 1,000 ML .Q24H IV Meperidine HCl (MEPERIDINE HCL/PF) 12.5 MG PACU ONCE PRN IV Morphine Sulfate (morphine SULFATE) 2 MG PACU Q10MIN PRN PRN IV Ondansetron HCl (ZOFRAN) 4 MG PACU ONCE PRN IV Promethazine HCl (PHENERGAN) 25 MG PACU ONCE PRN PO Ropivacaine (NAROPIN 0.5% 150 MG/30mL) 150 MG ASDIR PRN LOCAL Tramadol HCl (ULTRAM) 50 MG PACU ONCE PO (CKD) Vancomycin HCl (VANCOMYCIN HCL) 0 .STK-MED ONE .ROUTE (DC) Lidocaine/Epinephrine (XYLOCAINE 1% W/EPI 5mcg/mL MPF) 0 .STK-MED ONE LOCAL (DC) Diphenhydramine HCl (BENADRYL) 12.5 MG PACU ONCE PRN IV (DC) Fentanyl Citrate (SUBLIMAZE) 100 MCG PACU Q10MIN PRN PRN IV (DC) Fentanyl Citrate (SUBLIMAZE) 50 MCG PACU Q10MIN PRN PRN IV (DC) Hydralazine HCl (APRESOLINE) 5 MG PACU Q10MIN PRN PRN IV (DC) Hydrocodone Bitart/Acetaminophen (NORCO 5/325) 1 TAB PACU ONCE PO (DC) Hydromorphone HCl (DILAUDID) 1 MG PACU Q10MIN PRN PRN IV (DC) Hydromorphone HCl (DILAUDID) 0.5 MG PACU Q5MIN PRN PRN IV (DC) Insulin Human Lispro (HUMALOG) 0 PACU ONCE PRN SUBQ (DC) Labetalol HCl (LABETALOL HCL) 5 MG PACU Q10MIN PRN PRN IV (DC) Lactated Ringer's (LACTATED RINGERS) 1,000 ML .Q24H IV (DC) Meperidine HCl (MEPERIDINE HCL/PF) 12.5 MG PACU ONCE PRN IV (DC) Morphine Sulfate (morphine SULFATE) 2 MG PACU Q10MIN PRN PRN IV (DC) Ondansetron HCl (ZOFRAN) 4 MG PACU ONCE PRN IV (DC) Promethazine HCl (PHENERGAN) 25 MG PACU ONCE PRN PO (DC) Ropivacaine (NAROPIN 0.5% 150 MG/30mL) 150 MG ASDIR PRN LOCAL (DC) Tramadol HCl (ULTRAM) 50 MG PACU ONCE PO (DC) Vasopressin (VASOSTRICT) 0 .STK-MED ONE .ROUTE (DC) Etomidate (AMIDATE) 0 .STK-MED ONE IV (DC) Sevoflurane (ULTANE) 0 .STK-MED ONE INH (DC) Dexamethasone Sodium Phosphate (DECADRON) 0 .STK-MED ONE .ROUTE (DC) Fentanyl Citrate (SUBLIMAZE) 0 .STK-MED ONE .ROUTE (DC) Lidocaine HCl (XYLOCAINE) 0 .STK-MED ONE .ROUTE (DC) Midazolam HCl (VERSED) 0 .STK-MED ONE .ROUTE (DC) Ondansetron HCl (ZOFRAN) 0 .STK-MED ONE .ROUTE (DC) Phenylephrine HCl (Phenylephrine PF 500 mcg/5 mL Inj) 0 .STK-MED ONE .ROUTE (DC) Propofol (DIPRIVAN 200MG/20ML INJECTION) 20 ML .STK-MED ONE IV (DC) Insulin Human Lispro (HUMALOG) 5 UNIT AC SUBQ Acetaminophen (TYLENOL EXTRA STRENGTH) 1,000 MG PREOP ONCALL PO (DC) Lactated Ringer's (LACTATED RINGERS) 1,000 ML PREOP ONCALL IV (DC) Lidocaine HCl (LIDOCAINE HCL/PF) 2 ML PREOP ONCALL LOCAL (DC) Lidocaine HCl (LIDOCAINE HCL/PF) 2 ML PREOP ONCALL LOCAL (DC) Sodium Chloride (SODIUM CHLORIDE 0.9%) 500 ML PREOP ONCALL IV (DC) Sodium Chloride (SODIUM CHLORIDE 0.9%) 500 ML PREOP ONCALL IV (DC) Sodium Chloride (SODIUM CHLORIDE 0.9%) 1,000 ML PREOP ONCALL IV (DC) Sodium Chloride (SODIUM CHLORIDE) 5 ML ASDIR PRN IV (DC) Sodium Chloride (SODIUM CHLORIDE) 10 ML ASDIR PRN IV (DC) Sodium Chloride (SODIUM CHLORIDE 0.9%) 250 ML ASDIR PRN IV (DC) Insulin Glargine (Semglee) 13 UNIT BEDTIME SUBQ Insulin Glargine (Semglee) 10 UNIT BEDTIME SUBQ (DC) Metoprolol Tartrate (LOPRESSOR) 25 MG Q12HR PO Silver Sulfadiazine (SILVADENE 1% 50 GM CREAM) 1 APPLIC Q12HR TOPICAL Indomethacin (INDOCIN) 75 MG C BK PO Insulin Human Lispro (HUMALOG) 0 AC HS SUBQ Dextrose/Water (DEXTROSE 10% IN WATER) 125 ML ASDIR PRN IV (CKD) Dextrose/Water (DEXTROSE 10% IN WATER) 250 ML ASDIR PRN IV (CKD) Glucagon (GLUCAGON) 1 MG ASDIR PRN IM Mupirocin (BACTROBAN 2% 22 GM OINTMENT) 1 APPLIC BID NASAL Cefepime HCl (MAXIPIME) 1 GM Q6H IV Sodium Chloride (SODIUM CHLORIDE) 10 ML Metronidazole (FLAGYL) 500 MG Q8H PO Sodium Hypochlorite (DAKIN'S 1/2 STRENGTH 0.25% 480 ML TOP SOLN) 1 APPLIC BID TOPICAL Aspirin (ASPIRIN) 81 MG DAILY PO Lisinopril (ZESTRIL) 10 MG DAILY PO Polyethylene Glycol (MIRALAX) 17 GM DAILY PO Atorvastatin Calcium (LIPITOR) 80 MG BEDTIME PO Enoxaparin Sodium (lovENOX) 40 MG Q24H SUBQ (DA) Gabapentin (NEURONTIN) 200 MG TID PO Acetaminophen (TYLENOL) 650 MG Q6H PRN PRN PO Docusate Sodium (COLACE) 100 MG Q12H PRN PRN PO Ondansetron HCl (ZOFRAN ODT) 4 MG Q6H PRN PRN PO Physical Exam General appearance: alert, awake Diagnosis, Assessment Plan Hospital course to date: Laboratory Tests: 04/24 04/24 04/24 04/24 04/24 1532 1108 1013 0645 0301 Chemistry Sodium (134 - 147 mEq/L) 135 Potassium (3.4 - 5.0 mEq/L) 4.3 Chloride (100 - 108 mEq/L) 106 Carbon Dioxide (21 - 33 mEq/l) 21 Anion Gap (0 - 20) 13 BUN (7 - 25 mg/dL) 18 Creatinine (0.6 - 1.3 mg/dL) 0.9 Glomerular Filtr Rate (90 - 95) 99.6 H Glucose (77 - 141 mg/dL) 113 POC Glucose (70 - 110 MG/DL) 310 H 176 H 149 H 141 H Calcium (8.0 - 10.5 mg/dL) 9.2 Magnesium (1.6 - 2.6 mg/dL) 1.68 Hematology WBC (4.5 - 11.0 x10 3/uL) 7.8 RBC (4.00 - 5.60 x10 6/uL) 3.93 L Hgb (12.5 - 16.9 g/dL) 11.7 L Hct (37.5 - 50.7 %) 35.6 L MCV (81.0 - 99.0 fL) 90.6 MCH (27.0 - 33.0 pg) 29.8 MCHC (33.0 - 37.0 g/dL) 32.9 L RDW (11.5 - 14.5 %) 12.3 Plt Count (150 - 400 x10 3/uL) 278 MPV (7.0 - 9.0 fL) 10.0 H Neut % (Auto) (56.0 - 77.0 %) 68.0 Lymph % (Auto) (14.0 - 32.0 %) 21.2 [place] % (Auto) (4.8 - 9.0 %) 7.9 Eos % (Auto) (0.3 - 3.7 %) 1.9 Baso % (Auto) (0.0 - 2.0 %) 0.4 Neut # (Auto) (2.0 - 7.6 x10 3/uL) 5.28 Lymph # (Auto) (1.0 - 3.8 x10 3/uL) 1.65 [place] # (Auto) (0.1 - 0.8 x10 3/uL) 0.61 Eos # (Auto) (0.0 - 0.2 x10 3/uL) 0.15 Baso # (Auto) (0.0 - 0.2 x10 3/uL) 0.03 Abs Immat Gran (auto) (0.00 - 0.03 0.05 H x10 3/uL) Immature Gran % (0.0 - 2.0 %) 0.6 Nucleated RBC % (0 - 0 %) 0.0 Nucleated RBCs # (Man) (0.0 - 0.1 0.00 x10 3/uL) 04/23 2019 Chemistry POC Glucose (70 - 110 MG/DL) 276 H Microbiology: Date/Time Procedure - Status Source Growth 04/24 1000 Tissue Culture - RES TISSUE 04/24 1000 Anaerobic Culture - RES TISSUE 04/24 1000 Gram Stain - RES TISSUE Laboratory Tests: 04/23 04/23 04/23 04/23 04/23 1550 1110 0703 0330 0330 Chemistry Sodium (134 - 147 mEq/L) 137 Potassium (3.4 - 5.0 mEq/L) 3.9 Chloride (100 - 108 mEq/L) 105 Carbon Dioxide (21 - 33 mEq/l) 22 Anion Gap (0 - 20) 14 BUN (7 - 25 mg/dL) 25 Creatinine (0.6 - 1.3 mg/dL) 1.1 Glomerular Filtr Rate (90 - 95) 78.3 L Glucose (77 - 141 mg/dL) 131 POC Glucose (70 - 110 MG/DL) 265 H 284 H 143 H Calcium (8.0 - 10.5 mg/dL) 9.4 Magnesium (1.6 - 2.6 mg/dL) 1.72 Hematology WBC (4.5 - 11.0 x10 3/uL) 10.1 RBC (4.00 - 5.60 x10 6/uL) 4.24 Hgb (12.5 - 16.9 g/dL) 12.7 Hct (37.5 - 50.7 %) 38.4 MCV (81.0 - 99.0 fL) 90.6 MCH (27.0 - 33.0 pg) 30.0 MCHC (33.0 - 37.0 g/dL) 33.1 RDW (11.5 - 14.5 %) 12.3 Plt Count (150 - 400 x10 3/uL) 332 MPV (7.0 - 9.0 fL) 10.3 H Neut % (Auto) (56.0 - 77.0 %) 71.8 Lymph % (Auto) (14.0 - 32.0 %) 18.0 [place] % (Auto) (4.8 - 9.0 %) 8.4 Eos % (Auto) (0.3 - 3.7 %) 0.8 Baso % (Auto) (0.0 - 2.0 %) 0.4 Neut # (Auto) (2.0 - 7.6 x10 3/uL) 7.28 Lymph # (Auto) (1.0 - 3.8 x10 3/uL) 1.82 [place] # (Auto) (0.1 - 0.8 x10 3/uL) 0.85 H Eos # (Auto) (0.0 - 0.2 x10 3/uL) 0.08 Baso # (Auto) (0.0 - 0.2 x10 3/uL) 0.04 Abs Immat Gran (auto) (0.00 - 0.03 0.06 H x10 3/uL) Immature Gran % (0.0 - 2.0 %) 0.6 Nucleated RBC % (0 - 0 %) 0.0 Nucleated RBCs # (Man) (0.0 - 0.1 0.00 x10 3/uL) 04/23 04/22 0252 2121 Chemistry POC Glucose (70 - 110 MG/DL) 197 H Toxicology Vancomycin Trough (10.0 - 20.0 mcg/mL) 12.1 Recent Impressions: MAGNETIC RESONANCE IMAGING - MRI LOW EXT W/O CONT LT 04/23 1034 Report Impression - Status: SIGNED Entered: 04/23/2023 1207 IMPRESSION: 5th MTP effusion/possible septic arthritis with osteomyelitis changes as detailed. No drainable soft tissue abscess. Impression By: [email or web address] - Aaron Lemuel Goldberg M.D. Laboratory Tests: 04/22 04/21 04/21 0421 1957 1555 Chemistry Sodium (134 - 147 mEq/L) 139 Potassium (3.4 - 5.0 mEq/L) 4.3 Chloride (100 - 108 mEq/L) 108 Carbon Dioxide (21 - 33 mEq/l) 22 Anion Gap (0 - 20) 14 BUN (7 - 25 mg/dL) 17 Creatinine (0.6 - 1.3 mg/dL) 0.9 Glomerular Filtr Rate (90 - 95) 99.6 H Glucose (77 - 141 mg/dL) 124 POC Glucose (70 - 110 MG/DL) 232 H 133 H Calcium (8.0 - 10.5 mg/dL) 9.0 Hematology WBC (4.5 - 11.0 x10 3/uL) 8.6 RBC (4.00 - 5.60 x10 6/uL) 3.89 L Hgb (12.5 - 16.9 g/dL) 11.5 L Hct (37.5 - 50.7 %) 36.2 L MCV (81.0 - 99.0 fL) 93.1 MCH (27.0 - 33.0 pg) 29.6 MCHC (33.0 - 37.0 g/dL) 31.8 L RDW (11.5 - 14.5 %) 12.5 Plt Count (150 - 400 x10 3/uL) 301 MPV (7.0 - 9.0 fL) 10.1 H Neut % (Auto) (56.0 - 77.0 %) 66.1 Lymph % (Auto) (14.0 - 32.0 %) 23.5 [place] % (Auto) (4.8 - 9.0 %) 7.4 Eos % (Auto) (0.3 - 3.7 %) 2.0 Baso % (Auto) (0.0 - 2.0 %) 0.6 Neut # (Auto) (2.0 - 7.6 x10 3/uL) 5.66 Lymph # (Auto) (1.0 - 3.8 x10 3/uL) 2.01 [place] # (Auto) (0.1 - 0.8 x10 3/uL) 0.63 Eos # (Auto) (0.0 - 0.2 x10 3/uL) 0.17 Baso # (Auto) (0.0 - 0.2 x10 3/uL) 0.05 Abs Immat Gran (auto) (0.00 - 0.03 x10 3/uL) 0.03 Immature Gran % (0.0 - 2.0 %) 0.4 Nucleated RBC % (0 - 0 %) 0.0 Nucleated RBCs # (Man) (0.0 - 0.1 x10 3/uL) 0.00 Microbiology: Date/Time Procedure - Status Source Growth 04/21 1535 Blood Culture - RECD BLOOD 04/21 1535 Blood Culture Gram Stain - RECD BLOOD 04/21 1535 Blood Culture - RECD BLOOD 04/21 1535 Blood Culture Gram Stain - RECD BLOOD Recent Impressions: RADIOLOGY - XR FOOT 3 + V LT 04/21 1423 Report Impression - Status: SIGNED Entered: 04/21/2023 1438 IMPRESSION: Interval progression of osteomyelitis involving the fifth metatarsal head and fifth proximal phalanx base about the MTP joint since the prior study from 04/16/2023. Impression By: [email or web address] - Brett Elizabeth M.D. Laboratory Tests: 04/21 04/21 04/21 04/21 1128 0931 0534 0132 Chemistry Sodium (134 - 147 mEq/L) 137 Potassium (3.4 - 5.0 mEq/L) 4.0 Chloride (100 - 108 mEq/L) 105 Carbon Dioxide (21 - 33 mEq/l) 24 Anion Gap (0 - 20) 12 BUN (7 - 25 mg/dL) 18 Creatinine (0.6 - 1.3 mg/dL) 1.1 Glomerular Filtr Rate (90 - 95) 78.3 L Glucose (77 - 141 mg/dL) 181 H POC Glucose (70 - 110 MG/DL) 172 H Calcium (8.0 - 10.5 mg/dL) 9.3 Magnesium (1.6 - 2.6 mg/dL) 1.61 C-Reactive Protein (<10.0 mg/L) 25.0 H Hematology WBC (4.5 - 11.0 x10 3/uL) 7.0 RBC (4.00 - 5.60 x10 6/uL) 4.05 Hgb (12.5 - 16.9 g/dL) 12.0 L Hct (37.5 - 50.7 %) 36.5 L MCV (81.0 - 99.0 fL) 90.1 MCH (27.0 - 33.0 pg) 29.6 MCHC (33.0 - 37.0 g/dL) 32.9 L RDW (11.5 - 14.5 %) 12.0 Plt Count (150 - 400 x10 3/uL) 305 MPV (7.0 - 9.0 fL) 10.5 H Neut % (Auto) (56.0 - 77.0 %) 61.3 Lymph % (Auto) (14.0 - 32.0 %) 27.0 [place] % (Auto) (4.8 - 9.0 %) 8.9 Eos % (Auto) (0.3 - 3.7 %) 1.7 Baso % (Auto) (0.0 - 2.0 %) 0.7 Neut # (Auto) (2.0 - 7.6 x10 3/uL) 4.28 Lymph # (Auto) (1.0 - 3.8 x10 3/uL) 1.89 [place] # (Auto) (0.1 - 0.8 x10 3/uL) 0.62 Eos # (Auto) (0.0 - 0.2 x10 3/uL) 0.12 Baso # (Auto) (0.0 - 0.2 x10 3/uL) 0.05 Abs Immat Gran (auto) (0.00 - 0.03 x10 3/uL) 0.03 Immature Gran % (0.0 - 2.0 %) 0.4 Nucleated RBC % (0 - 0 %) 0.0 Nucleated RBCs # (Man) (0.0 - 0.1 x10 3/uL) 0.00 ESR Westergren (0 - 15 mm/hr) 87 H Urines Urine Color (YEL/STRAW) YELLOW Urine Appearance (CLEAR) CLEAR Urine pH (5.0 - 7.0) 5.0 Ur Specific [place] (1.005 - 1.030) 1.011 Urine Protein (NEGATIVE) NEGATIVE Urine Glucose (UA) (NEGATIVE) 3+ H Urine Ketones (NEGATIVE) NEGATIVE Urine Blood (NEGATIVE) NEGATIVE Urine Nitrite (NEGATIVE) NEGATIVE Urine Bilirubin (NEGATIVE) NEGATIVE Urine Urobilinogen (0.2 - 1.0 mg/dL) 0.2 Ur Leukocyte Esterase (NEGATIVE) NEGATIVE Urine RBC (0 - 3 RBC/HPF) 0-3 Urine WBC (0 - 3 WBC/HPF) 0-3 Ur Squamous Epith Cells (NONE SEEN /HPF) 0-5 Ur Transition Epith Cell (NONE SEEN /HPF) TRACE Urine Bacteria (NONE SEEN /HPF) TRACE Urine Mucus (NONE SEEN /LPF) TRACE 04/20 Chemistry POC Glucose (70 - 110 MG/DL) 325 H Coagulation INR (0.8 - 1.2) 1.3 H PTT ([place]) (25.0 - 39.5 Seconds) 39.3 PT Patient/Control Mix (9.3 - 12.9 SECONDS) 14.5 H Microbiology: Date/Time Procedure - Status Source Growth 04/21 1535 Blood Culture - RECD BLOOD 04/21 1535 Blood Culture Gram Stain - RECD BLOOD 04/21 1535 Blood Culture - RECD BLOOD 04/21 1535 Blood Culture Gram Stain - RECD BLOOD Recent Impressions: RADIOLOGY - XR FOOT 3 + V LT 04/21 1423 Report Impression - Status: SIGNED Entered: 04/21/2023 1438 IMPRESSION: Interval progression of osteomyelitis involving the fifth metatarsal head and fifth proximal phalanx base about the MTP joint since the prior study from 04/16/2023. Impression By: [email or web address] - Brett Elizabeth M.D. 1. 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 2. Coronary artery disease. 6 3. For CABG 4. Ex-smoker 5.Left foot wound 6.Hypertension. 7. Hyperlipidemia Blood sugar 149,176-310 mg/dL. HbA1c 8.3%. Lipids elevated.This Adjust insulin dose. Diabetes dietary education. at 1733 RPT #:[id number] END OF REPORT [facility] 2023-04-24 13:06:00 [id number] [place] [id number] PATIENT NAME: JONG RIVAS ADMIT DATE: 04/19/23 ACCOUNT NO: [id number] ROOM NO: [id number] AGE: 58 REPORT TYPE: OPERATIVE REPORT SEX: M ADMITTING PHYSICIAN:Domenic Rainey MD ATTENDING PHYSICIAN:Domenic Rainey MD OPERATION DATE: 04/24/2023 PREPROCEDURE DIAGNOSES: 1. Osteomyelitis of the fifth proximal phalanx and fifth metatarsal head, left foot. 2. Diabetic foot ulcer, sub-fifth metatarsal, left foot. 3. Septic arthritis, left foot. 4. Cellulitis, left foot. POSTPROCEDURE DIAGNOSES: 1. Osteomyelitis of the fifth proximal phalanx and fifth metatarsal head, left foot. 2. Diabetic foot ulcer, sub-fifth metatarsal, left foot. 3. Septic arthritis, left foot. 4. Cellulitis, left foot. PROCEDURES: 1. Left foot incision and drainage of the fifth metatarsophalangeal joint. 2. Left foot fifth proximal phalanx and fifth metatarsal head resection. SURGEON: Betty Moe DPM. SHANK SKINNER: YAMILET, PGY-1. ANESTHESIA: General and local block. HEMOSTASIS: Manual pressure. ESTIMATED BLOOD LOSS: 10 mL. PATHOLOGY: Left fifth metatarsal head. MATERIALS USED: None. INJECTABLES: 10 mL of 0.5% Marcaine plain. COMPLICATIONS: None. INDICATIONS FOR PROCEDURE: This is a 58-year-old male with past medical history of type 2 diabetes and septic arthritis presents today for infected diabetic left foot ulcer, osteomyelitis of left fifth metatarsal head with bone exposed, cellulitis and septic arthritis. Based on clinical examination and recent radiographic findings, it was deemed medically necessary to proceed with left PATIENT NAME: JONG RIVAS foot incision and drainage and left foot fifth proximal phalanx and fifth metatarsal head resection. All alternatives, risks, and complications of the procedures were thoroughly explained to the patient. The patient exhibits appropriate understanding of all discussion points and informed consent signed and obtained in chart with no guarantees of surgical outcome given or implied. DESCRIPTION OF PROCEDURE: The patient was brought to the operating room and placed on the operative table in the supine position. The patient was secured to the table with safety belt, contralateral SCD placed and all bony prominences were padded. Following surgical timeout where all members of the operating room and surgical site were identified, general anesthesia occurred. The left foot was then prepped and draped in the usual sterile manner and the following procedures then began. PROCEDURE #1: Left foot incision and drainage of fifth MPJ. Attention was directed to the left fifth metatarsal ulcer. Using #15 blade, a full-thickness linear incision was made over the lateral aspect of the left foot along the fifth ray. Dissection was carried down to joint and bone, being careful to protect all neurovascular structures. Manual pressure was applied to evacuate any purulent pus from the plantar and dorsal foot. Using a [place], the subcutaneous tissue layers were explored with any sinus tract gross debris and to free up any remaining fluid matter bone, capsule, tendon and other deep structures. PROCEDURE #2: Left foot fifth proximal phalanx and fifth metatarsal head resection. Attention was directed to the left foot fifth proximal phalanx and fifth metatarsal head. Using a [place], all periosteum was lifted off the bone. Using an oscillating saw, the metatarsal head was cut in a dorsal distal to plantar proximal orientation. The fifth metatarsal was the lateral cortex was shorter than the . The specimen was passed off the field and sent for gross pathology. Using a rongeur, the fifth proximal phalanx was resected, all remaining necrotic and devitalized soft tissue structures were visualized and dissected away using sharp and dull dissection. Care was taken to protect all neurovascular structures throughout the dissection. All bleeders were cauterized as necessary. The area was then flushed with copious amounts of sterile saline. The site was then closed using 3-0 and 4-0 nylon sutures for skin closure. The skin was well approximated under minimal tension. The distal portion of the cavity was left open to drain. Local anesthesia was then administered on the operative field utilizing 10 mL of 0.5% Marcaine plain. The surgical site was then dressed with Betadine-soaked gauze, 4 x 4 gauze, Kerlix and Garcia wrap. The patient tolerated both the procedure and anesthesia well with vital signs stable throughout. The patient was transferred from the OR to recovery under the discretion of anesthesia with vital signs stable and neurovascular status intact to the operative limb. POSTOPERATIVE PLAN: The patient will be readmitted under primary service for continued medical management. Dr. Moe will follow the patient throughout the entire postoperative course and the patient is aware of all postoperative protocols in place. Dictated By: Betty Moe DPM Date Dictated: 04/24/2023 13:06:22 Date Transcribed: 04/24/2023 16:09:44 PATIENT NAME: JONG RIVAS /BENNETT/HEM/NAG Receipt ID: [id number] Authenticated by Betty Moe DPM On 05/23/2023 09:42:34 PM at 0942 PATIENT NAME: JONG RIVAS [facility] 2023-04-24 12:50:00 [facility] Cardiothoracic Surgery Prog REPORT#:[id number] REPORT STATUS: Signed REPORT INITIALIZATION DATE:04/24/23 TIME: 1250 PATIENT: JONG RIVAS UNIT #: [id number] ROOM/BED: [place] [id number] : 66 AGE: 58 SEX: M ATTEND: Domenic Rainey MD ADM AUTHOR: Mirian Robin NP REPT SERVICE DT/TIME: 04/24/23 1250 * ALL edits or amendments must be made on the electronic/computer document * General Status post: CABG Eval Subjective Chief complaint: Referral for CAD, CABG Eval Currently no complaints, resting comfortable Review of Systems Constitutional: Reports: fatigue. Skin: Denies: bruising, contusion, diaphoresis, ecchymosis. Allergy/Immun: Denies: allergic reaction, itching, rhinorrhea, sneezing. Eyes: Denies: redness, discharge, visual loss/blurred. ENT: Denies: throat pain, throat swelling, tongue pain, tongue swelling, toothache. Respiratory: Reports: MENDES (dyspnea on exertion). Denies: SOB, wheezing. Cardiovascular: Denies: chest pain, edema, orthopnea, palpitations. GI: Denies: abdominal pain, nausea, vomiting. : Denies: dysuria, flank pain. Musculoskeletal: Denies: extremity pain, extremity swelling. Psych: Denies: agitation, anxiety, auditory hallucination, visual hallucination. All systems rev neg: except as marked Objective General VS/I O Last Documented: Result Date Time Pulse Ox 97 04/24 111 B/P 123/77 04/24 111 B/P Mean 92.5 04/24 1113 Temp 98.8 04/24 1113 Pulse 74 04/24 1113 Resp 16 04/24 111 O2 Delivery Room air 04/24 1025 O2 Flow Rate 7 04/24 1013 24 hour I O ending at 0700: 04/24 0700 04/23 1900 Intake Total 650 Output Total 2650 400 Balance -2650 250 Intake, Oral 650 Number 1 Bowel Movements Number Voids 2 Output, Urine 2650 400 Patient 104.9 kg Weight Weight Standing scale Measurement Method PATIENT WEIGHT: Weight (lb): 231 Weight (oz): 4.24 Weight (kg): 104.900 Physical Exam General appearance: alert, awake, oriented, no acute distress Wound/incision: Location: Left foot ulcer HEENT: anicteric, mucosal membranes moist, pupils reactive to light Neck: full range of motion, non-tender Cardiovascular: normal heart sounds, regular rate rhythm Respiratory: aerating well, clear to auscultation, symmetric expansion, no distress Abdomen: soft, non-tender Genitourinary: no bladder distention, no flank pain Extremities: dry, moves all, normal capillary refill, normal temperature Musculoskeletal: full range of motion, painless range of motion 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, oriented X 3 Psychiatry: normal affect, normal judgment/insight Current Medications Medications: Active Meds + DC'd Last 24 Hrs Diphenhydramine HCl (BENADRYL) 12.5 MG PACU ONCE PRN IV Fentanyl Citrate (SUBLIMAZE) 100 MCG PACU Q10MIN PRN PRN IV Fentanyl Citrate (SUBLIMAZE) 50 MCG PACU Q10MIN PRN PRN IV Hydralazine HCl (APRESOLINE) 5 MG PACU Q10MIN PRN PRN IV Hydrocodone Bitart/Acetaminophen (NORCO 5/325) 1 TAB PACU ONCE PO (CKD) Hydromorphone HCl (DILAUDID) 1 MG PACU Q10MIN PRN PRN IV Hydromorphone HCl (DILAUDID) 0.5 MG PACU Q5MIN PRN PRN IV Insulin Human Lispro (HUMALOG) 0 PACU ONCE PRN SUBQ Labetalol HCl (LABETALOL HCL) 5 MG PACU Q10MIN PRN PRN IV Lactated Ringer's (LACTATED RINGERS) 1,000 ML .Q24H IV Meperidine HCl (MEPERIDINE HCL/PF) 12.5 MG PACU ONCE PRN IV Morphine Sulfate (morphine SULFATE) 2 MG PACU Q10MIN PRN PRN IV Ondansetron HCl (ZOFRAN) 4 MG PACU ONCE PRN IV Promethazine HCl (PHENERGAN) 25 MG PACU ONCE PRN PO Ropivacaine (NAROPIN 0.5% 150 MG/30mL) 150 MG ASDIR PRN LOCAL Tramadol HCl (ULTRAM) 50 MG PACU ONCE PO (CKD) Vancomycin HCl (VANCOMYCIN HCL) 0 .STK-MED ONE .ROUTE (DC) Lidocaine/Epinephrine (XYLOCAINE 1% W/EPI 5mcg/mL MPF) 0 .STK-MED ONE LOCAL (DC) Diphenhydramine HCl (BENADRYL) 12.5 MG PACU ONCE PRN IV (DC) Fentanyl Citrate (SUBLIMAZE) 100 MCG PACU Q10MIN PRN PRN IV (DC) Fentanyl Citrate (SUBLIMAZE) 50 MCG PACU Q10MIN PRN PRN IV (DC) Hydralazine HCl (APRESOLINE) 5 MG PACU Q10MIN PRN PRN IV (DC) Hydrocodone Bitart/Acetaminophen (NORCO 5/325) 1 TAB PACU ONCE PO (DC) Hydromorphone HCl (DILAUDID) 1 MG PACU Q10MIN PRN PRN IV (DC) Hydromorphone HCl (DILAUDID) 0.5 MG PACU Q5MIN PRN PRN IV (DC) Insulin Human Lispro (HUMALOG) 0 PACU ONCE PRN SUBQ (DC) Labetalol HCl (LABETALOL HCL) 5 MG PACU Q10MIN PRN PRN IV (DC) Lactated Ringer's (LACTATED RINGERS) 1,000 ML .Q24H IV (DC) Meperidine HCl (MEPERIDINE HCL/PF) 12.5 MG PACU ONCE PRN IV (DC) Morphine Sulfate (morphine SULFATE) 2 MG PACU Q10MIN PRN PRN IV (DC) Ondansetron HCl (ZOFRAN) 4 MG PACU ONCE PRN IV (DC) Promethazine HCl (PHENERGAN) 25 MG PACU ONCE PRN PO (DC) Ropivacaine (NAROPIN 0.5% 150 MG/30mL) 150 MG ASDIR PRN LOCAL (DC) Tramadol HCl (ULTRAM) 50 MG PACU ONCE PO (DC) Vasopressin (VASOSTRICT) 0 .STK-MED ONE .ROUTE (DC) Etomidate (AMIDATE) 0 .STK-MED ONE IV (DC) Sevoflurane (ULTANE) 0 .STK-MED ONE INH (DC) Dexamethasone Sodium Phosphate (DECADRON) 0 .STK-MED ONE .ROUTE (DC) Fentanyl Citrate (SUBLIMAZE) 0 .STK-MED ONE .ROUTE (DC) Lidocaine HCl (XYLOCAINE) 0 .STK-MED ONE .ROUTE (DC) Midazolam HCl (VERSED) 0 .STK-MED ONE .ROUTE (DC) Ondansetron HCl (ZOFRAN) 0 .STK-MED ONE .ROUTE (DC) Phenylephrine HCl (Phenylephrine PF 500 mcg/5 mL Inj) 0 .STK-MED ONE .ROUTE (DC) Propofol (DIPRIVAN 200MG/20ML INJECTION) 20 ML .STK-MED ONE IV (DC) Insulin Human Lispro (HUMALOG) 5 UNIT AC SUBQ Acetaminophen (TYLENOL EXTRA STRENGTH) 1,000 MG PREOP ONCALL PO (DC) Lactated Ringer's (LACTATED RINGERS) 1,000 ML PREOP ONCALL IV (DC) Lidocaine HCl (LIDOCAINE HCL/PF) 2 ML PREOP ONCALL LOCAL (DC) Lidocaine HCl (LIDOCAINE HCL/PF) 2 ML PREOP ONCALL LOCAL (DC) Sodium Chloride (SODIUM CHLORIDE 0.9%) 500 ML PREOP ONCALL IV (DC) Sodium Chloride (SODIUM CHLORIDE 0.9%) 500 ML PREOP ONCALL IV (DC) Sodium Chloride (SODIUM CHLORIDE 0.9%) 1,000 ML PREOP ONCALL IV (DC) Sodium Chloride (SODIUM CHLORIDE) 5 ML ASDIR PRN IV (DC) Sodium Chloride (SODIUM CHLORIDE) 10 ML ASDIR PRN IV (DC) Sodium Chloride (SODIUM CHLORIDE 0.9%) 250 ML ASDIR PRN IV (DC) Insulin Glargine (Semglee) 13 UNIT BEDTIME SUBQ Insulin Glargine (Semglee) 10 UNIT BEDTIME SUBQ (DC) Metoprolol Tartrate (LOPRESSOR) 25 MG Q12HR PO Silver Sulfadiazine (SILVADENE 1% 50 GM CREAM) 1 APPLIC Q12HR TOPICAL Indomethacin (INDOCIN) 75 MG C BK PO Insulin Human Lispro (HUMALOG) 0 AC HS SUBQ Dextrose/Water (DEXTROSE 10% IN WATER) 125 ML ASDIR PRN IV (CKD) Dextrose/Water (DEXTROSE 10% IN WATER) 250 ML ASDIR PRN IV (CKD) Glucagon (GLUCAGON) 1 MG ASDIR PRN IM Mupirocin (BACTROBAN 2% 22 GM OINTMENT) 1 APPLIC BID NASAL Cefepime HCl (MAXIPIME) 1 GM Q6H IV Sodium Chloride (SODIUM CHLORIDE) 10 ML Metronidazole (FLAGYL) 500 MG Q8H PO Sodium Hypochlorite (DAKIN'S 1/2 STRENGTH 0.25% 480 ML TOP SOLN) 1 APPLIC BID TOPICAL Aspirin (ASPIRIN) 81 MG DAILY PO Lisinopril (ZESTRIL) 10 MG DAILY PO Polyethylene Glycol (MIRALAX) 17 GM DAILY PO Atorvastatin Calcium (LIPITOR) 80 MG BEDTIME PO Enoxaparin Sodium (lovENOX) 40 MG Q24H SUBQ Gabapentin (NEURONTIN) 200 MG TID PO Acetaminophen (TYLENOL) 650 MG Q6H PRN PRN PO Docusate Sodium (COLACE) 100 MG Q12H PRN PRN PO Ondansetron HCl (ZOFRAN ODT) 4 MG Q6H PRN PRN PO Results Findings/Data: Laboratory Tests 04/24 04/24 04/24 04/24 04/23 1108 1013 [id number] [id number] 2019 Chemistry Sodium (134 - 147 mEq/L) 135 Potassium (3.4 - 5.0 mEq/L) 4.3 Chloride (100 - 108 mEq/L) 106 Carbon Dioxide (21 - 33 mEq/l) 21 Anion Gap (0 - 20) 13 BUN (7 - 25 mg/dL) 18 Creatinine (0.6 - 1.3 mg/dL) 0.9 Glomerular Filtr Rate (90 - 95) 99.6 H Glucose (77 - 141 mg/dL) 113 POC Glucose (70 - 110 MG/DL) 176 H 149 H 141 H 276 H Calcium (8.0 - 10.5 mg/dL) 9.2 Magnesium (1.6 - 2.6 mg/dL) 1.68 04/23 1550 Chemistry POC Glucose (70 - 110 MG/DL) 265 H Laboratory Tests 04/24 0301 Hematology WBC (4.5 - 11.0 x10 3/uL) 7.8 RBC (4.00 - 5.60 x10 6/uL) 3.93 L Hgb (12.5 - 16.9 g/dL) 11.7 L Hct (37.5 - 50.7 %) 35.6 L MCV (81.0 - 99.0 fL) 90.6 MCH (27.0 - 33.0 pg) 29.8 MCHC (33.0 - 37.0 g/dL) 32.9 L RDW (11.5 - 14.5 %) 12.3 Plt Count (150 - 400 x10 3/uL) 278 MPV (7.0 - 9.0 fL) 10.0 H Neut % (Auto) (56.0 - 77.0 %) 68.0 Lymph % (Auto) (14.0 - 32.0 %) 21.2 [place] % (Auto) (4.8 - 9.0 %) 7.9 Eos % (Auto) (0.3 - 3.7 %) 1.9 Baso % (Auto) (0.0 - 2.0 %) 0.4 Neut # (Auto) (2.0 - 7.6 x10 3/uL) 5.28 Lymph # (Auto) (1.0 - 3.8 x10 3/uL) 1.65 [place] # (Auto) (0.1 - 0.8 x10 3/uL) 0.61 Eos # (Auto) (0.0 - 0.2 x10 3/uL) 0.15 Baso # (Auto) (0.0 - 0.2 x10 3/uL) 0.03 Abs Immat Gran (auto) (0.00 - 0.03 x10 3/uL) 0.05 H Immature Gran % (0.0 - 2.0 %) 0.6 Nucleated RBC % (0 - 0 %) 0.0 Nucleated RBCs # (Man) (0.0 - 0.1 x10 3/uL) 0.00 Diagnosis, Assessment Plan Free Text A P: 57-year-old male, poor historian, PMHx diabetes on metformin, neuropathy, HTN, former smoker, PE chronic nonhealing left foot ulcer at the fifth metatarsal located posterior lateral, with no known prior cardiovascular disease. Patient transferred from [facility], referred to us from Dr. Forde for acute coronary syndrome, unstable angina, ischemic heart disease status post coronary angiogram, with findings of multivessel CAD, EF 50%. Upon further chart review patient found to have chronic cavitary lung lesion on CT chest pending QuantiFERON, left lower extremity diabetic foot ulcer concerning for osteomyelitis MRI done at [place] and will upload imaging, foot wound culture with pseudomonas, UTI with urine culture Pseudomonas treated with cefepime. Patient reports dyspnea on exertion and mild chest pain x1 year. 04/18/23: Coronary angiogram done at [facility] Left main patent LAD with high-grade and tortuous calcified lesion just after the first diagonal estimated 95% stenosis first diagonal branch with severe calcified disease 99% Ramus 90 to 95% stenosis, left circumflex artery 99% proximal stenosis OM branches severe disease as well. RCA 90%. LVEDP 11 mmHg and angiography demonstrated preserved LV systolic function, EF 50%. Inferior wall demonstrated mild hypokinesis. 1-2+ MR on LV angio. RICHARDS patent Carotid angiogram, patent carotids Assessment: CAD, severe multivessel Left foot nonhealing foot ulcer Chronic cavitary lesion noted on CT chest UTI Pseudomonas 2023 Patient seen and evaluated by Dr. Rainey CABG eval underway -Consult pulmonology, cardiology, wound care -Lovenox DVT prophylaxis Continue supportive care Further recommendations to follow 04/21/2023 CABG eval underway Patient sitting up in bed, room air, no distress. No complaints Patient with multiple complex medical issues ongoing. Timing of major CV surgery pending medical optimization. We will discuss patient at high risk CV Case conference on Tuesday. -Continue supportive care Seen and examined by Dr. Rainey 04/23/2023 CABG eval underway Patient sitting up in bed, room air, no distress. No complaints Patient with multiple complex medical issues ongoing. Timing of major CV surgery pending medical optimization. Left foot MRI complete with fifth MTP effusion/possible septic arthritis with osteomyelitis changes, no drainable soft tissue abscess. -Amputation left fifth toe and metatarsal scheduled by podiatry for tomorrow -Blood cultures 04/21/2023 no growth after 24-hour -UA negative -Lovenox DVT prophylaxis Continue supportive care Further recommendations to follow 04/24/2023 CABG eval underway Patient sitting up in bed, room air, no distress. No complaints -Amputation left fifth toe and metatarsal scheduled by podiatry for today -Blood cultures 04/21/2023 no growth after 48-hour -follow tissue culture Continue supportive care Further recommendations to follow Consultants: cardiology, cardiovascular surgery, pulmonary Code status: full code Plan discussed with: patient, collaborating MD, nurse at 1255 at 0535 RPT #:[id number] END OF REPORT [facility] 2023-04-24 11:55:00 [facility] Internal Medicine Prog. Note REPORT#:[id number] REPORT STATUS: Signed REPORT INITIALIZATION DATE:04/24/23 TIME: 115 PATIENT: JONG RIVAS UNIT #: [id number] ROOM/BED: 3357-1 : 66 AGE: 58 SEX: M ATTEND: Domenic Rainey MD ADM AUTHOR: Mal Baez DO REPT SERVICE DT/TIME: 04/24/23 1155 * ALL edits or amendments must be made on the electronic/computer document * Subjective Chief complaint: Patient just returned from the OR, denies any specific pain or discomfort, sitting comfortably in bed on room air Objective General VS/I O: Vital Signs Date Temp Pulse Resp B/P B/P Mean Pulse Ox FiO2 04/23-04/24 97.2-98.8 59-78 0-54 98-143/55-79 0.0-94 93-100 Last Documented: Result Date Time Pulse Ox 97 04/24 1113 B/P 123/77 04/24 1113 B/P Mean 92.5 04/24 1113 Temp 98.8 04/24 1113 Pulse 74 04/24 111 Resp 16 04/24 111 O2 Delivery Room air 04/24 1025 O2 Flow Rate 7 04/24 1013 24 hour I O ending at 0700: 04/24 0700 04/23 1900 Intake Total 650 Output Total 2650 400 Balance -2650 250 Intake, Oral 650 Number 1 Bowel Movements Number Voids 2 Output, Urine 2650 400 Patient 104.9 kg Weight Weight Standing scale Measurement Method PATIENT WEIGHT: Weight (lb): 231 Weight (oz): 4.24 Weight (kg): 104.900 Medications: Active Meds + DC'd Last 24 Hrs Diphenhydramine HCl (BENADRYL) 12.5 MG PACU ONCE PRN IV Fentanyl Citrate (SUBLIMAZE) 100 MCG PACU Q10MIN PRN PRN IV Fentanyl Citrate (SUBLIMAZE) 50 MCG PACU Q10MIN PRN PRN IV Hydralazine HCl (APRESOLINE) 5 MG PACU Q10MIN PRN PRN IV Hydrocodone Bitart/Acetaminophen (NORCO 5/325) 1 TAB PACU ONCE PO (CKD) Hydromorphone HCl (DILAUDID) 1 MG PACU Q10MIN PRN PRN IV Hydromorphone HCl (DILAUDID) 0.5 MG PACU Q5MIN PRN PRN IV Insulin Human Lispro (HUMALOG) 0 PACU ONCE PRN SUBQ Labetalol HCl (LABETALOL HCL) 5 MG PACU Q10MIN PRN PRN IV Lactated Ringer's (LACTATED RINGERS) 1,000 ML .Q24H IV Meperidine HCl (MEPERIDINE HCL/PF) 12.5 MG PACU ONCE PRN IV Morphine Sulfate (morphine SULFATE) 2 MG PACU Q10MIN PRN PRN IV Ondansetron HCl (ZOFRAN) 4 MG PACU ONCE PRN IV Promethazine HCl (PHENERGAN) 25 MG PACU ONCE PRN PO Ropivacaine (NAROPIN 0.5% 150 MG/30mL) 150 MG ASDIR PRN LOCAL Tramadol HCl (ULTRAM) 50 MG PACU ONCE PO (CKD) Vancomycin HCl (VANCOMYCIN HCL) 0 .STK-MED ONE .ROUTE (DC) Lidocaine/Epinephrine (XYLOCAINE 1% W/EPI 5mcg/mL MPF) 0 .STK-MED ONE LOCAL (DC) Diphenhydramine HCl (BENADRYL) 12.5 MG PACU ONCE PRN IV (DC) Fentanyl Citrate (SUBLIMAZE) 100 MCG PACU Q10MIN PRN PRN IV (DC) Fentanyl Citrate (SUBLIMAZE) 50 MCG PACU Q10MIN PRN PRN IV (DC) Hydralazine HCl (APRESOLINE) 5 MG PACU Q10MIN PRN PRN IV (DC) Hydrocodone Bitart/Acetaminophen (NORCO 5/325) 1 TAB PACU ONCE PO (DC) Hydromorphone HCl (DILAUDID) 1 MG PACU Q10MIN PRN PRN IV (DC) Hydromorphone HCl (DILAUDID) 0.5 MG PACU Q5MIN PRN PRN IV (DC) Insulin Human Lispro (HUMALOG) 0 PACU ONCE PRN SUBQ (DC) Labetalol HCl (LABETALOL HCL) 5 MG PACU Q10MIN PRN PRN IV (DC) Lactated Ringer's (LACTATED RINGERS) 1,000 ML .Q24H IV (DC) Meperidine HCl (MEPERIDINE HCL/PF) 12.5 MG PACU ONCE PRN IV (DC) Morphine Sulfate (morphine SULFATE) 2 MG PACU Q10MIN PRN PRN IV (DC) Ondansetron HCl (ZOFRAN) 4 MG PACU ONCE PRN IV (DC) Promethazine HCl (PHENERGAN) 25 MG PACU ONCE PRN PO (DC) Ropivacaine (NAROPIN 0.5% 150 MG/30mL) 150 MG ASDIR PRN LOCAL (DC) Tramadol HCl (ULTRAM) 50 MG PACU ONCE PO (DC) Vasopressin (VASOSTRICT) 0 .STK-MED ONE .ROUTE (DC) Etomidate (AMIDATE) 0 .STK-MED ONE IV (DC) Sevoflurane (ULTANE) 0 .STK-MED ONE INH (DC) Dexamethasone Sodium Phosphate (DECADRON) 0 .STK-MED ONE .ROUTE (DC) Fentanyl Citrate (SUBLIMAZE) 0 .STK-MED ONE .ROUTE (DC) Lidocaine HCl (XYLOCAINE) 0 .STK-MED ONE .ROUTE (DC) Midazolam HCl (VERSED) 0 .STK-MED ONE .ROUTE (DC) Ondansetron HCl (ZOFRAN) 0 .STK-MED ONE .ROUTE (DC) Phenylephrine HCl (Phenylephrine PF 500 mcg/5 mL Inj) 0 .STK-MED ONE .ROUTE (DC) Propofol (DIPRIVAN 200MG/20ML INJECTION) 20 ML .STK-MED ONE IV (DC) Insulin Human Lispro (HUMALOG) 5 UNIT AC SUBQ Acetaminophen (TYLENOL EXTRA STRENGTH) 1,000 MG PREOP ONCALL PO (DC) Lactated Ringer's (LACTATED RINGERS) 1,000 ML PREOP ONCALL IV (DC) Lidocaine HCl (LIDOCAINE HCL/PF) 2 ML PREOP ONCALL LOCAL (DC) Lidocaine HCl (LIDOCAINE HCL/PF) 2 ML PREOP ONCALL LOCAL (DC) Sodium Chloride (SODIUM CHLORIDE 0.9%) 500 ML PREOP ONCALL IV (DC) Sodium Chloride (SODIUM CHLORIDE 0.9%) 500 ML PREOP ONCALL IV (DC) Sodium Chloride (SODIUM CHLORIDE 0.9%) 1,000 ML PREOP ONCALL IV (DC) Sodium Chloride (SODIUM CHLORIDE) 5 ML ASDIR PRN IV (DC) Sodium Chloride (SODIUM CHLORIDE) 10 ML ASDIR PRN IV (DC) Sodium Chloride (SODIUM CHLORIDE 0.9%) 250 ML ASDIR PRN IV (DC) Insulin Glargine (Semglee) 13 UNIT BEDTIME SUBQ Insulin Glargine (Semglee) 10 UNIT BEDTIME SUBQ (DC) Metoprolol Tartrate (LOPRESSOR) 25 MG Q12HR PO Silver Sulfadiazine (SILVADENE 1% 50 GM CREAM) 1 APPLIC Q12HR TOPICAL Indomethacin (INDOCIN) 75 MG C BK PO Insulin Human Lispro (HUMALOG) 0 AC HS SUBQ Dextrose/Water (DEXTROSE 10% IN WATER) 125 ML ASDIR PRN IV (CKD) Dextrose/Water (DEXTROSE 10% IN WATER) 250 ML ASDIR PRN IV (CKD) Glucagon (GLUCAGON) 1 MG ASDIR PRN IM Mupirocin (BACTROBAN 2% 22 GM OINTMENT) 1 APPLIC BID NASAL Cefepime HCl (MAXIPIME) 1 GM Q6H IV Sodium Chloride (SODIUM CHLORIDE) 10 ML Metronidazole (FLAGYL) 500 MG Q8H PO Sodium Hypochlorite (DAKIN'S 1/2 STRENGTH 0.25% 480 ML TOP SOLN) 1 APPLIC BID TOPICAL Aspirin (ASPIRIN) 81 MG DAILY PO Lisinopril (ZESTRIL) 10 MG DAILY PO Polyethylene Glycol (MIRALAX) 17 GM DAILY PO Atorvastatin Calcium (LIPITOR) 80 MG BEDTIME PO Enoxaparin Sodium (lovENOX) 40 MG Q24H SUBQ Gabapentin (NEURONTIN) 200 MG TID PO Acetaminophen (TYLENOL) 650 MG Q6H PRN PRN PO Docusate Sodium (COLACE) 100 MG Q12H PRN PRN PO Ondansetron HCl (ZOFRAN ODT) 4 MG Q6H PRN PRN PO Physical Exam Neck: no lymphadenopathy, no masses or swelling Cardiovascular: normal heart sounds Respiratory: aerating well, clear to auscultation Extremities: Extremities: no clubbing (left foot dressing), no cyanosis Results Findings/Data: Laboratory Tests 04/24/23 030: [Embedded Image Not Available] Laboratory Tests 04/24 04/24 04/24 04/24 04/23 1108 1013 0645 030 2019 Chemistry Sodium (134 - 147 mEq/L) 135 Potassium (3.4 - 5.0 mEq/L) 4.3 Chloride (100 - 108 mEq/L) 106 Carbon Dioxide (21 - 33 mEq/l) 21 Anion Gap (0 - 20) 13 BUN (7 - 25 mg/dL) 18 Creatinine (0.6 - 1.3 mg/dL) 0.9 Glomerular Filtr Rate (90 - 95) 99.6 H Glucose (77 - 141 mg/dL) 113 POC Glucose (70 - 110 MG/DL) 176 H 149 H 141 H 276 H Calcium (8.0 - 10.5 mg/dL) 9.2 Magnesium (1.6 - 2.6 mg/dL) 1.68 04/23 1550 Chemistry POC Glucose (70 - 110 MG/DL) 265 H Laboratory Tests 04/24 0301 Hematology WBC (4.5 - 11.0 x10 3/uL) 7.8 RBC (4.00 - 5.60 x10 6/uL) 3.93 L Hgb (12.5 - 16.9 g/dL) 11.7 L Hct (37.5 - 50.7 %) 35.6 L MCV (81.0 - 99.0 fL) 90.6 MCH (27.0 - 33.0 pg) 29.8 MCHC (33.0 - 37.0 g/dL) 32.9 L RDW (11.5 - 14.5 %) 12.3 Plt Count (150 - 400 x10 3/uL) 278 MPV (7.0 - 9.0 fL) 10.0 H Neut % (Auto) (56.0 - 77.0 %) 68.0 Lymph % (Auto) (14.0 - 32.0 %) 21.2 [place] % (Auto) (4.8 - 9.0 %) 7.9 Eos % (Auto) (0.3 - 3.7 %) 1.9 Baso % (Auto) (0.0 - 2.0 %) 0.4 Neut # (Auto) (2.0 - 7.6 x10 3/uL) 5.28 Lymph # (Auto) (1.0 - 3.8 x10 3/uL) 1.65 [place] # (Auto) (0.1 - 0.8 x10 3/uL) 0.61 Eos # (Auto) (0.0 - 0.2 x10 3/uL) 0.15 Baso # (Auto) (0.0 - 0.2 x10 3/uL) 0.03 Abs Immat Gran (auto) (0.00 - 0.03 x10 3/uL) 0.05 H Immature Gran % (0.0 - 2.0 %) 0.6 Nucleated RBC % (0 - 0 %) 0.0 Nucleated RBCs # (Man) (0.0 - 0.1 x10 3/uL) 0.00 Diagnosis, Assessment Plan Problem List/A P: 1. Diabetic foot ulcer with osteomyelitis 2. Diabetic peripheral neuropathy 3. Coronary artery disease 4. Diabetes mellitus with hyperglycemia Free Text DxA P Notes Free text DxA P notes: Patient admitted with left diabetic foot ulcer/osteomyelitis with significant CAD S/p left fifth toe amputation -Appreciated input from cardiology, podiatry, and endocrinology -S/p left fifth toe amputation this morning -Continue on broad-spectrum antibiotics -Awaiting high risk PCI versus CABG -Lovenox for DVT prophylaxis -Tight glycemic control -Family is at the bedside and all concerns addressed at 1156 RPT #:[id number] END OF REPORT [facility] 2023-04-23 17:47:00 [facility] Endocrinology Progress Note REPORT#:[id number] REPORT STATUS: Signed REPORT INITIALIZATION DATE:04/23/23 TIME: 1746 PATIENT: JONG RIVAS UNIT #: [id number] ROOM/BED: [place] [id number] : 67 AGE: 58 SEX: M ATTEND: Domenic Rainey MD ADM AUTHOR: Vlad Lay MD REPT SERVICE DT/TIME: 04/23/231746 * ALL edits or amendments must be made on the electronic/computer document * Subjective Patient reports: no complaints Objective General VS: Last Documented: Result Date Time Pulse Ox 96 04/23 1555 B/P 127/72 04/23 1555 B/P Mean 0.0 04/23 1555 O2 Delivery Room air 04/23 1555 Temp 36.9 04/23 155 Pulse 61 04/23 1555 Resp 12 04/23 1555 PATIENT WEIGHT: Weight (lb): 230 Weight (oz): 13.18 Weight (kg): 104.700 Medications: Active Meds + DC'd Last 24 Hrs Insulin Glargine (Semglee) 10 UNIT BEDTIME SUBQ Metoprolol Tartrate (LOPRESSOR) 25 MG Q12HR PO Silver Sulfadiazine (SILVADENE 1% 50 GM CREAM) 1 APPLIC Q12HR TOPICAL Indomethacin (INDOCIN) 75 MG C BK PO Insulin Human Lispro (HUMALOG) 0 AC HS SUBQ Dextrose/Water (DEXTROSE 10% IN WATER) 125 ML ASDIR PRN IV (CKD) Dextrose/Water (DEXTROSE 10% IN WATER) 250 ML ASDIR PRN IV (CKD) Glucagon (GLUCAGON) 1 MG ASDIR PRN IM Mupirocin (BACTROBAN 2% 22 GM OINTMENT) 1 APPLIC BID NASAL Cefepime HCl (MAXIPIME) 1 GM Q6H IV Sodium Chloride (SODIUM CHLORIDE) 10 ML Metronidazole (FLAGYL) 500 MG Q8H PO Sodium Hypochlorite (DAKIN'S 1/2 STRENGTH 0.25% 480 ML TOP SOLN) 1 APPLIC BID TOPICAL Aspirin (ASPIRIN) 81 MG DAILY PO Lisinopril (ZESTRIL) 10 MG DAILY PO Polyethylene Glycol (MIRALAX) 17 GM DAILY PO Atorvastatin Calcium (LIPITOR) 80 MG BEDTIME PO Enoxaparin Sodium (lovENOX) 40 MG Q24H SUBQ Gabapentin (NEURONTIN) 200 MG TID PO Acetaminophen (TYLENOL) 650 MG Q6H PRN PRN PO Docusate Sodium (COLACE) 100 MG Q12H PRN PRN PO Ondansetron HCl (ZOFRAN ODT) 4 MG Q6H PRN PRN PO Physical Exam General appearance: alert, awake Diagnosis, Assessment Plan Hospital course to date: Laboratory Tests: 04/23 04/23 04/23 04/23 04/23 1550 1110 0703 0330 0330 Chemistry Sodium (134 - 147 mEq/L) 137 Potassium (3.4 - 5.0 mEq/L) 3.9 Chloride (100 - 108 mEq/L) 105 Carbon Dioxide (21 - 33 mEq/l) 22 Anion Gap (0 - 20) 14 BUN (7 - 25 mg/dL) 25 Creatinine (0.6 - 1.3 mg/dL) 1.1 Glomerular Filtr Rate (90 - 95) 78.3 L Glucose (77 - 141 mg/dL) 131 POC Glucose (70 - 110 MG/DL) 265 H 284 H 143 H Calcium (8.0 - 10.5 mg/dL) 9.4 Magnesium (1.6 - 2.6 mg/dL) 1.72 Hematology WBC (4.5 - 11.0 x10 3/uL) 10.1 RBC (4.00 - 5.60 x10 6/uL) 4.24 Hgb (12.5 - 16.9 g/dL) 12.7 Hct (37.5 - 50.7 %) 38.4 MCV (81.0 - 99.0 fL) 90.6 MCH (27.0 - 33.0 pg) 30.0 MCHC (33.0 - 37.0 g/dL) 33.1 RDW (11.5 - 14.5 %) 12.3 Plt Count (150 - 400 x10 3/uL) 332 MPV (7.0 - 9.0 fL) 10.3 H Neut % (Auto) (56.0 - 77.0 %) 71.8 Lymph % (Auto) (14.0 - 32.0 %) 18.0 [place] % (Auto) (4.8 - 9.0 %) 8.4 Eos % (Auto) (0.3 - 3.7 %) 0.8 Baso % (Auto) (0.0 - 2.0 %) 0.4 Neut # (Auto) (2.0 - 7.6 x10 3/uL) 7.28 Lymph # (Auto) (1.0 - 3.8 x10 3/uL) 1.82 [place] # (Auto) (0.1 - 0.8 x10 3/uL) 0.85 H Eos # (Auto) (0.0 - 0.2 x10 3/uL) 0.08 Baso # (Auto) (0.0 - 0.2 x10 3/uL) 0.04 Abs Immat Gran (auto) (0.00 - 0.03 0.06 H x10 3/uL) Immature Gran % (0.0 - 2.0 %) 0.6 Nucleated RBC % (0 - 0 %) 0.0 Nucleated RBCs # (Man) (0.0 - 0.1 0.00 x10 3/uL) 04/23 04/22 0252 2121 Chemistry POC Glucose (70 - 110 MG/DL) 197 H Toxicology Vancomycin Trough (10.0 - 20.0 mcg/mL) 12.1 Recent Impressions: MAGNETIC RESONANCE IMAGING - MRI LOW EXT W/O CONT LT 04/23 1034 Report Impression - Status: SIGNED Entered: 04/23/2023 1207 IMPRESSION: 5th MTP effusion/possible septic arthritis with osteomyelitis changes as detailed. No drainable soft tissue abscess. Impression By: [email or web address] - Aaron Lemuel Goldberg M.D. Laboratory Tests: 04/22 04/21 04/21 0421 1957 1555 Chemistry Sodium (134 - 147 mEq/L) 139 Potassium (3.4 - 5.0 mEq/L) 4.3 Chloride (100 - 108 mEq/L) 108 Carbon Dioxide (21 - 33 mEq/l) 22 Anion Gap (0 - 20) 14 BUN (7 - 25 mg/dL) 17 Creatinine (0.6 - 1.3 mg/dL) 0.9 Glomerular Filtr Rate (90 - 95) 99.6 H Glucose (77 - 141 mg/dL) 124 POC Glucose (70 - 110 MG/DL) 232 H 133 H Calcium (8.0 - 10.5 mg/dL) 9.0 Hematology WBC (4.5 - 11.0 x10 3/uL) 8.6 RBC (4.00 - 5.60 x10 6/uL) 3.89 L Hgb (12.5 - 16.9 g/dL) 11.5 L Hct (37.5 - 50.7 %) 36.2 L MCV (81.0 - 99.0 fL) 93.1 MCH (27.0 - 33.0 pg) 29.6 MCHC (33.0 - 37.0 g/dL) 31.8 L RDW (11.5 - 14.5 %) 12.5 Plt Count (150 - 400 x10 3/uL) 301 MPV (7.0 - 9.0 fL) 10.1 H Neut % (Auto) (56.0 - 77.0 %) 66.1 Lymph % (Auto) (14.0 - 32.0 %) 23.5 [place] % (Auto) (4.8 - 9.0 %) 7.4 Eos % (Auto) (0.3 - 3.7 %) 2.0 Baso % (Auto) (0.0 - 2.0 %) 0.6 Neut # (Auto) (2.0 - 7.6 x10 3/uL) 5.66 Lymph # (Auto) (1.0 - 3.8 x10 3/uL) 2.01 [place] # (Auto) (0.1 - 0.8 x10 3/uL) 0.63 Eos # (Auto) (0.0 - 0.2 x10 3/uL) 0.17 Baso # (Auto) (0.0 - 0.2 x10 3/uL) 0.05 Abs Immat Gran (auto) (0.00 - 0.03 x10 3/uL) 0.03 Immature Gran % (0.0 - 2.0 %) 0.4 Nucleated RBC % (0 - 0 %) 0.0 Nucleated RBCs # (Man) (0.0 - 0.1 x10 3/uL) 0.00 Microbiology: Date/Time Procedure - Status Source Growth 04/21 1535 Blood Culture - RECD BLOOD 04/21 153 Blood Culture Gram Stain - RECD BLOOD 04/21 153 Blood Culture - RECD BLOOD 04/21 1535 Blood Culture Gram Stain - RECD BLOOD Recent Impressions: RADIOLOGY - XR FOOT 3 + V LT 04/21 1423 Report Impression - Status: SIGNED Entered: 04/21/2023 1438 IMPRESSION: Interval progression of osteomyelitis involving the fifth metatarsal head and fifth proximal phalanx base about the MTP joint since the prior study from 04/16/2023. Impression By: [email or web address] - Brett Elizabeth M.D. Laboratory Tests: 04/21 04/21 04/21 04/21 1128 0931 0534 0132 Chemistry Sodium (134 - 147 mEq/L) 137 Potassium (3.4 - 5.0 mEq/L) 4.0 Chloride (100 - 108 mEq/L) 105 Carbon Dioxide (21 - 33 mEq/l) 24 Anion Gap (0 - 20) 12 BUN (7 - 25 mg/dL) 18 Creatinine (0.6 - 1.3 mg/dL) 1.1 Glomerular Filtr Rate (90 - 95) 78.3 L Glucose (77 - 141 mg/dL) 181 H POC Glucose (70 - 110 MG/DL) 172 H Calcium (8.0 - 10.5 mg/dL) 9.3 Magnesium (1.6 - 2.6 mg/dL) 1.61 C-Reactive Protein (<10.0 mg/L) 25.0 H Hematology WBC (4.5 - 11.0 x10 3/uL) 7.0 RBC (4.00 - 5.60 x10 6/uL) 4.05 Hgb (12.5 - 16.9 g/dL) 12.0 L Hct (37.5 - 50.7 %) 36.5 L MCV (81.0 - 99.0 fL) 90.1 MCH (27.0 - 33.0 pg) 29.6 MCHC (33.0 - 37.0 g/dL) 32.9 L RDW (11.5 - 14.5 %) 12.0 Plt Count (150 - 400 x10 3/uL) 305 MPV (7.0 - 9.0 fL) 10.5 H Neut % (Auto) (56.0 - 77.0 %) 61.3 Lymph % (Auto) (14.0 - 32.0 %) 27.0 [place] % (Auto) (4.8 - 9.0 %) 8.9 Eos % (Auto) (0.3 - 3.7 %) 1.7 Baso % (Auto) (0.0 - 2.0 %) 0.7 Neut # (Auto) (2.0 - 7.6 x10 3/uL) 4.28 Lymph # (Auto) (1.0 - 3.8 x10 3/uL) 1.89 [place] # (Auto) (0.1 - 0.8 x10 3/uL) 0.62 Eos # (Auto) (0.0 - 0.2 x10 3/uL) 0.12 Baso # (Auto) (0.0 - 0.2 x10 3/uL) 0.05 Abs Immat Gran (auto) (0.00 - 0.03 x10 3/uL) 0.03 Immature Gran % (0.0 - 2.0 %) 0.4 Nucleated RBC % (0 - 0 %) 0.0 Nucleated RBCs # (Man) (0.0 - 0.1 x10 3/uL) 0.00 ESR Westergren (0 - 15 mm/hr) 87 H Urines Urine Color (YEL/STRAW) YELLOW Urine Appearance (CLEAR) CLEAR Urine pH (5.0 - 7.0) 5.0 Ur Specific [place] (1.005 - 1.030) 1.011 Urine Protein (NEGATIVE) NEGATIVE Urine Glucose (UA) (NEGATIVE) 3+ H Urine Ketones (NEGATIVE) NEGATIVE Urine Blood (NEGATIVE) NEGATIVE Urine Nitrite (NEGATIVE) NEGATIVE Urine Bilirubin (NEGATIVE) NEGATIVE Urine Urobilinogen (0.2 - 1.0 mg/dL) 0.2 Ur Leukocyte Esterase (NEGATIVE) NEGATIVE Urine RBC (0 - 3 RBC/HPF) 0-3 Urine WBC (0 - 3 WBC/HPF) 0-3 Ur Squamous Epith Cells (NONE SEEN /HPF) 0-5 Ur Transition Epith Cell (NONE SEEN /HPF) TRACE Urine Bacteria (NONE SEEN /HPF) TRACE Urine Mucus (NONE SEEN /LPF) TRACE 04/20 Chemistry POC Glucose (70 - 110 MG/DL) 325 H Coagulation INR (0.8 - 1.2) 1.3 H PTT ([place]) (25.0 - 39.5 Seconds) 39.3 PT Patient/Control Mix (9.3 - 12.9 SECONDS) 14.5 H Microbiology: Date/Time Procedure - Status Source Growth 04/21 153 Blood Culture - RECD BLOOD 04/21 153 Blood Culture Gram Stain - RECD BLOOD 04/21 153 Blood Culture - RECD BLOOD 04/21 153 Blood Culture Gram Stain - RECD BLOOD Recent Impressions: RADIOLOGY - XR FOOT 3 + V LT 04/21 1423 Report Impression - Status: SIGNED Entered: 04/21/2023 143 IMPRESSION: Interval progression of osteomyelitis involving the fifth metatarsal head and fifth proximal phalanx base about the MTP joint since the prior study from 04/16/2023. Impression By: [email or web address] - Brett Elizabeth M.D. 1. 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 2. Coronary artery disease. 6 3. For CABG 4. Ex-smoker 5.Left foot wound 6.Hypertension. 7. Hyperlipidemia Blood sugar 143-284 mg/dL. HbA1c 8.3%. Lipids elevated.This Adjust insulin dose. Diabetes dietary education. at 1747 RPT #:[id number] END OF REPORT [facility] 2023-04-23 14:14:00 [facility]) Cardiothoracic Surgery Prog REPORT#:[id number] REPORT STATUS: Signed REPORT INITIALIZATION DATE:04/23/23 TIME: 1413 PATIENT: JONG RIVAS UNIT #: [id number] [place]: [facility] : 66 AGE: 58 SEX: M ATTEND: Domenic Rainey MD ADM AUTHOR: Mirian Robin COPPER PLATER REPT SERVICE DT/TIME: 04/23/23 1414 * ALL edits or amendments must be made on the electronic/computer document * General Status post: CABG Eval Subjective Chief complaint: Referral for CAD, CABG Eval Currently no complaints, resting comfortable Patient reports: No: complaints. Review of Systems Constitutional: Reports: fatigue. Skin: Denies: bruising, contusion, diaphoresis, ecchymosis. Allergy/Immun: Denies: allergic reaction, itching, rhinorrhea, sneezing. Eyes: Denies: redness, discharge, visual loss/blurred. ENT: Denies: throat pain, throat swelling, tongue pain, tongue swelling, toothache. Respiratory: Reports: MENDES (dyspnea on exertion). Denies: SOB, wheezing. Cardiovascular: Denies: chest pain, edema, orthopnea, palpitations. GI: Denies: abdominal pain, nausea, vomiting. : Denies: dysuria, flank pain. Musculoskeletal: Denies: extremity pain, extremity swelling. Psych: Denies: agitation, anxiety, auditory hallucination, visual hallucination. All systems rev neg: except as marked Objective General VS/I O Last Documented: Result Date Time Pulse Ox 96 04/23 1114 B/P 134/79 04/23 111 B/P Mean 0.0 04/23 1114 O2 Delivery Room air 04/23 1114 Temp 97.9 04/23 1114 Pulse 62 04/23 111 Resp 16 04/23 111 24 hour I O ending at 0700: 04/23 0700 04/22 1900 Intake Total 660.00 Output Total 300 Balance 360.00 Intake, IV 60.00 Intake, Oral 600 Number 2 Bowel Movements Output, Urine 300 Patient 104.7 kg 104.78 kg Weight Weight Wheelchair scale Measurement Method PATIENT WEIGHT: Weight (lb): 230 Weight (oz): 13.18 Weight (kg): 104.700 Physical Exam General appearance: alert, awake, oriented, no acute distress Wound/incision: Location: Left foot ulcer HEENT: anicteric, mucosal membranes moist, pupils reactive to light Neck: full range of motion, non-tender Cardiovascular: normal heart sounds, regular rate rhythm Respiratory: aerating well, clear to auscultation, symmetric expansion, no distress Abdomen: soft, non-tender Genitourinary: no bladder distention, no flank pain Extremities: dry, moves all, normal capillary refill, normal temperature Musculoskeletal: full range of motion, painless range of motion 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, oriented X 3 Psychiatry: normal affect, normal judgment/insight Current Medications Medications: Active Meds + DC'd Last 24 Hrs Insulin Glargine (Semglee) 10 UNIT BEDTIME SUBQ Metoprolol Tartrate (LOPRESSOR) 25 MG Q12HR PO Silver Sulfadiazine (SILVADENE 1% 50 GM CREAM) 1 APPLIC Q12HR TOPICAL Indomethacin (INDOCIN) 75 MG C BK PO Insulin Human Lispro (HUMALOG) 0 AC HS SUBQ Dextrose/Water (DEXTROSE 10% IN WATER) 125 ML ASDIR PRN IV (CKD) Dextrose/Water (DEXTROSE 10% IN WATER) 250 ML ASDIR PRN IV (CKD) Glucagon (GLUCAGON) 1 MG ASDIR PRN IM Mupirocin (BACTROBAN 2% 22 GM OINTMENT) 1 APPLIC BID NASAL Cefepime HCl (MAXIPIME) 1 GM Q6H IV Sodium Chloride (SODIUM CHLORIDE) 10 ML Metronidazole (FLAGYL) 500 MG Q8H PO Sodium Hypochlorite (DAKIN'S 1/2 STRENGTH 0.25% 480 ML TOP SOLN) 1 APPLIC BID TOPICAL Aspirin (ASPIRIN) 81 MG DAILY PO Lisinopril (ZESTRIL) 10 MG DAILY PO Polyethylene Glycol (MIRALAX) 17 GM DAILY PO Insulin Human Lispro (HUMALOG) 0 AC HS SUBQ (DC) Dextrose/Water (DEXTROSE 10% IN WATER) 125 ML ASDIR PRN IV (CAN) Dextrose/Water (DEXTROSE 10% IN WATER) 250 ML ASDIR PRN IV (CAN) Glucagon (GLUCAGON) 1 MG ASDIR PRN IM (CAN) Atorvastatin Calcium (LIPITOR) 80 MG BEDTIME PO Enoxaparin Sodium (lovENOX) 40 MG Q24H SUBQ Gabapentin (NEURONTIN) 200 MG TID PO Acetaminophen (TYLENOL) 650 MG Q6H PRN PRN PO Docusate Sodium (COLACE) 100 MG Q12H PRN PRN PO Ondansetron HCl (ZOFRAN ODT) 4 MG Q6H PRN PRN PO Results Findings/Data: Laboratory Tests 04/23 04/23 04/23 04/23 04/22 1110 0703 0330 0330 8531 Chemistry Sodium (134 - 147 mEq/L) 137 Potassium (3.4 - 5.0 mEq/L) 3.9 Chloride (100 - 108 mEq/L) 105 Carbon Dioxide (21 - 33 mEq/l) 22 Anion Gap (0 - 20) 14 BUN (7 - 25 mg/dL) 25 Creatinine (0.6 - 1.3 mg/dL) 1.1 Glomerular Filtr Rate (90 - 95) 78.3 L Glucose (77 - 141 mg/dL) 131 POC Glucose (70 - 110 MG/DL) 284 H 143 H 197 H Calcium (8.0 - 10.5 mg/dL) 9.4 Magnesium (1.6 - 2.6 mg/dL) 1.72 04/22 1739 Chemistry POC Glucose (70 - 110 MG/DL) 182 H Laboratory Tests 04/23 0330 Hematology WBC (4.5 - 11.0 x10 3/uL) 10.1 RBC (4.00 - 5.60 x10 6/uL) 4.24 Hgb (12.5 - 16.9 g/dL) 12.7 Hct (37.5 - 50.7 %) 38.4 MCV (81.0 - 99.0 fL) 90.6 MCH (27.0 - 33.0 pg) 30.0 MCHC (33.0 - 37.0 g/dL) 33.1 RDW (11.5 - 14.5 %) 12.3 Plt Count (150 - 400 x10 3/uL) 332 MPV (7.0 - 9.0 fL) 10.3 H Neut % (Auto) (56.0 - 77.0 %) 71.8 Lymph % (Auto) (14.0 - 32.0 %) 18.0 [place] % (Auto) (4.8 - 9.0 %) 8.4 Eos % (Auto) (0.3 - 3.7 %) 0.8 Baso % (Auto) (0.0 - 2.0 %) 0.4 Neut # (Auto) (2.0 - 7.6 x10 3/uL) 7.28 Lymph # (Auto) (1.0 - 3.8 x10 3/uL) 1.82 [place] # (Auto) (0.1 - 0.8 x10 3/uL) 0.85 H Eos # (Auto) (0.0 - 0.2 x10 3/uL) 0.08 Baso # (Auto) (0.0 - 0.2 x10 3/uL) 0.04 Abs Immat Gran (auto) (0.00 - 0.03 x10 3/uL) 0.06 H Immature Gran % (0.0 - 2.0 %) 0.6 Nucleated RBC % (0 - 0 %) 0.0 Nucleated RBCs # (Man) (0.0 - 0.1 x10 3/uL) 0.00 Laboratory Tests 04/23 0252 Toxicology Vancomycin Trough (10.0 - 20.0 mcg/mL) 12.1 Radiology data: Recent Impressions: RADIOLOGY - XR KNEE 1 OR 2 V LT 04/22 1418 Report Impression - Status: SIGNED Entered: 04/22/2023 1439 IMPRESSION: There is no radiographic evidence of acute bone injury. There is fragmentation of the anterior tibial tuberosity, which could be due to an old or chronic injury. There is anterior soft tissue swelling. Impression By: Norm - Montana Salomon M.D. MAGNETIC RESONANCE IMAGING - MRI LOW EXT W/O CONT LT 04/23 1034 Report Impression - Status: SIGNED Entered: 04/23/2023 1207 IMPRESSION: 5th MTP effusion/possible septic arthritis with osteomyelitis changes as detailed. No drainable soft tissue abscess. Impression By: [email or web address] - Aaron Goldberg M.D. Diagnosis, Assessment Plan Free Text A P: 57-year-old male, poor historian, PMHx diabetes on metformin, neuropathy, HTN, former smoker, PE chronic nonhealing left foot ulcer at the fifth metatarsal located posterior lateral, with no known prior cardiovascular disease. Patient transferred from [facility], referred to us from Dr. Forde for acute coronary syndrome, unstable angina, ischemic heart disease status post coronary angiogram, with findings of multivessel CAD, EF 50%. Upon further chart review patient found to have chronic cavitary lung lesion on CT chest pending QuantiFERON, left lower extremity diabetic foot ulcer concerning for osteomyelitis MRI done at [place] and will upload imaging, foot wound culture with pseudomonas, UTI with urine culture Pseudomonas treated with cefepime. Patient reports dyspnea on exertion and mild chest pain x1 year. 04/18/23: Coronary angiogram done at [facility] Left main patent LAD with high-grade and tortuous calcified lesion just after the first diagonal estimated 95% stenosis first diagonal branch with severe calcified disease 99% Ramus 90 to 95% stenosis, left circumflex artery 99% proximal stenosis OM branches severe disease as well. RCA 90%. LVEDP 11 mmHg and angiography demonstrated preserved LV systolic function, EF 50%. Inferior wall demonstrated mild hypokinesis. 1-2+ MR on LV angio. RICHARDS patent Carotid angiogram, patent carotids Assessment: CAD, severe multivessel Left foot nonhealing foot ulcer Chronic cavitary lesion noted on CT chest UTI Pseudomonas 2023 Patient seen and evaluated by Dr. Rainey CABG eval underway -Consult pulmonology, cardiology, wound care -Lovenox DVT prophylaxis Continue supportive care Further recommendations to follow 04/21/2023 CABG eval underway Patient sitting up in bed, room air, no distress. No complaints Patient with multiple complex medical issues ongoing. Timing of major CV surgery pending medical optimization. We will discuss patient at high risk CV Case conference on Tuesday. -Continue supportive care Seen and examined by Dr. Rainey 04/23/2023 CABG eval underway Patient sitting up in bed, room air, no distress. No complaints Patient with multiple complex medical issues ongoing. Timing of major CV surgery pending medical optimization. Left foot MRI complete with fifth MTP effusion/possible septic arthritis with osteomyelitis changes, no drainable soft tissue abscess. -Amputation left fifth toe and metatarsal scheduled by podiatry for tomorrow -Blood cultures 04/21/2023 no growth after 24-hour -UA negative -Lovenox DVT prophylaxis Continue supportive care Further recommendations to follow Consultants: cardiology, cardiovascular surgery, pulmonary at 1419 at 0535 RPT #:[id number] END OF REPORT [facility] 2023-04-23 09:31:00 [facility] Internal Medicine Prog. Note REPORT#:[id number] REPORT STATUS: Signed REPORT INITIALIZATION DATE:04/23/23 TIME: 930 PATIENT: JONG RIVAS UNIT #: [id number] ROOM/BED: [place] [id number] : 67 AGE: 58 SEX: M ATTEND: Domenic Rainey MD ADM AUTHOR: NegarsauravMal DO [facility] DT/TIME: 04/23/23930 * ALL edits or amendments must be made on the electronic/computer document * Subjective Chief complaint: Patient is resting comfortably in bed, was able to ambulate to the restroom and back, with minimal shortness of breath. Denies any fevers or chills Objective General VS/I O: Vital Signs Date Temp Pulse Resp B/P B/P Mean Pulse Ox FiO2 04/22-04/23 98.2-99.0 64-83 14-18 105-152/66-85 0.0-107 18-100 Last Documented: Result Date Time Pulse Ox 95 04/23 0708 B/P 105/66 04/23 0708 B/P Mean 0.0 04/23 708 O2 Delivery Room air 04/23 708 Temp 98.4 04/23 708 Pulse 66 04/23 07 Resp 15 04/23 07 24 hour I O ending at 0700: 04/23 0700 04/22 1900 Intake Total 660.00 Output Total 300 Balance 360.00 Intake, IV 60.00 Intake, Oral 600 Number 2 Bowel Movements Output, Urine 300 Patient 104.7 kg 104.78 kg Weight Weight Wheelchair scale Measurement Method PATIENT WEIGHT: Weight (lb): 230 Weight (oz): 13.18 Weight (kg): 104.700 Medications: Active Meds + DC'd Last 24 Hrs Insulin Glargine (Semglee) 10 UNIT BEDTIME SUBQ Metoprolol Tartrate (LOPRESSOR) 25 MG Q12HR PO Silver Sulfadiazine (SILVADENE 1% 50 GM CREAM) 1 APPLIC Q12HR TOPICAL Indomethacin (INDOCIN) 75 MG C BK PO Insulin Human Lispro (HUMALOG) 0 AC HS SUBQ Dextrose/Water (DEXTROSE 10% IN WATER) 125 ML ASDIR PRN IV (CKD) Dextrose/Water (DEXTROSE 10% IN WATER) 250 ML ASDIR PRN IV (CKD) Glucagon (GLUCAGON) 1 MG ASDIR PRN IM Vancomycin HCl (Vancomycin 1,250 mg Inj (B2)) 1,250 MG Q12H IV (DC) Sodium Chloride (SODIUM CHLORIDE 0.9%) 250 ML Mupirocin (BACTROBAN 2% 22 GM OINTMENT) 1 APPLIC BID NASAL Cefepime HCl (MAXIPIME) 1 GM Q6H IV Sodium Chloride (SODIUM CHLORIDE) 10 ML Metronidazole (FLAGYL) 500 MG Q8H PO Miscellaneous Information (VANCOMYCIN PHARMACY TO DOSE) 1 EACH ASDIR IV (DC) Sodium Hypochlorite (DAKIN'S 1/2 STRENGTH 0.25% 480 ML TOP SOLN) 1 APPLIC BID TOPICAL Aspirin (ASPIRIN) 81 MG DAILY PO Lisinopril (ZESTRIL) 10 MG DAILY PO Polyethylene Glycol (MIRALAX) 17 GM DAILY PO Insulin Human Lispro (HUMALOG) 0 AC HS SUBQ (DC) Dextrose/Water (DEXTROSE 10% IN WATER) 125 ML ASDIR PRN IV (CAN) Dextrose/Water (DEXTROSE 10% IN WATER) 250 ML ASDIR PRN IV (CAN) Glucagon (GLUCAGON) 1 MG ASDIR PRN IM (CAN) Atorvastatin Calcium (LIPITOR) 80 MG BEDTIME PO Metoprolol Tartrate (LOPRESSOR) 12.5 MG Q12HR PO (DC) Enoxaparin Sodium (lovENOX) 40 MG Q24H SUBQ Gabapentin (NEURONTIN) 200 MG TID PO Miscellaneous Information (LOVENOX PHARMACY TO DOSE) 1 EACH ASDIR SUBQ ( DC) Acetaminophen (TYLENOL) 650 MG Q6H PRN PRN PO Docusate Sodium (COLACE) 100 MG Q12H PRN PRN PO Ondansetron HCl (ZOFRAN ODT) 4 MG Q6H PRN PRN PO Physical Exam General appearance: alert, awake, oriented Neck: no lymphadenopathy, no masses or swelling Cardiovascular: normal heart sounds Respiratory: aerating well, clear to auscultation Extremities: Extremities: no clubbing (left foot dressing), no cyanosis Results Findings/Data: Laboratory Tests 04/23/23 0330: [Embedded Image Not Available] Laboratory Tests 04/23 04/23 04/22 04/22 0703 0330 2121 1739 Chemistry Sodium (134 - 147 mEq/L) 137 Potassium (3.4 - 5.0 mEq/L) 3.9 Chloride (100 - 108 mEq/L) 105 Carbon Dioxide (21 - 33 mEq/l) 22 Anion Gap (0 - 20) 14 BUN (7 - 25 mg/dL) 25 Creatinine (0.6 - 1.3 mg/dL) 1.1 Glomerular Filtr Rate (90 - 95) 78.3 L Glucose (77 - 141 mg/dL) 131 POC Glucose (70 - 110 MG/DL) 143 H 197 H 182 H Calcium (8.0 - 10.5 mg/dL) 9.4 Laboratory Tests 04/23 0330 Hematology WBC (4.5 - 11.0 x10 3/uL) 10.1 RBC (4.00 - 5.60 x10 6/uL) 4.24 Hgb (12.5 - 16.9 g/dL) 12.7 Hct (37.5 - 50.7 %) 38.4 MCV (81.0 - 99.0 fL) 90.6 MCH (27.0 - 33.0 pg) 30.0 MCHC (33.0 - 37.0 g/dL) 33.1 RDW (11.5 - 14.5 %) 12.3 Plt Count (150 - 400 x10 3/uL) 332 MPV (7.0 - 9.0 fL) 10.3 H Neut % (Auto) (56.0 - 77.0 %) 71.8 Lymph % (Auto) (14.0 - 32.0 %) 18.0 [place] % (Auto) (4.8 - 9.0 %) 8.4 Eos % (Auto) (0.3 - 3.7 %) 0.8 Baso % (Auto) (0.0 - 2.0 %) 0.4 Neut # (Auto) (2.0 - 7.6 x10 3/uL) 7.28 Lymph # (Auto) (1.0 - 3.8 x10 3/uL) 1.82 [place] # (Auto) (0.1 - 0.8 x10 3/uL) 0.85 H Eos # (Auto) (0.0 - 0.2 x10 3/uL) 0.08 Baso # (Auto) (0.0 - 0.2 x10 3/uL) 0.04 Abs Immat Gran (auto) (0.00 - 0.03 x10 3/uL) 0.06 H Immature Gran % (0.0 - 2.0 %) 0.6 Nucleated RBC % (0 - 0 %) 0.0 Nucleated RBCs # (Man) (0.0 - 0.1 x10 3/uL) 0.00 Laboratory Tests 04/23 025 Toxicology Vancomycin Trough (10.0 - 20.0 mcg/mL) 12.1 Diagnosis, Assessment Plan Problem List/A P: 1. Diabetic foot ulcer with osteomyelitis 2. Diabetic peripheral neuropathy 3. Coronary artery disease 4. Diabetes mellitus with hyperglycemia Free Text DxA P Notes Free text DxA P notes: Patient admitted with left diabetic foot ulcer/osteomyelitis with significant CAD -Appreciated input from cardiology, podiatry, and endocrinology -Continue on broad-spectrum antibiotics -Awaiting high risk PCI versus CABG -Lovenox for DVT prophylaxis -Tight glycemic control -Follow-up with morning labs at 0934 RPT #:[id number] END OF REPORT [facility] 2023-04-22 17:51:00 [facility]) Podiatry Consult Note REPORT#:[id number] REPORT STATUS: Signed REPORT INITIALIZATION DATE:04/22/23 TIME: 1750 PATIENT: JONG RIVAS UNIT #: [id number] ROOM/BED: [place] [id number] : 67 AGE: 58 SEX: M ATTEND: Domenic Rainey MD ADM AUTHOR: Betty Moe DPM REPT SERVICE DT/TIME: 04/22/231750 * ALL edits or amendments must be made on the electronic/computer document * History - Adult longitudinal Past medical history: Reports: Anemia, Diabetes mellitus, Hypertension. Past surgical history: Reports: Knee procedure. Family history: Reports: Diabetes, Heart disease. Alcohol use: Alcohol use (1-7 drinks per week) Drug use: Denies recreational drugs Smoking status for patients 13 years old or older: Never Smoker Allergies: Coded Allergies: No Known Allergies (04/20/23) Objective General VS: Last Documented: Result Date Time Pulse Ox 100 04/22 1743 B/P 127/70 04/22 1743 B/P Mean 88.9 04/22 1743 Temp 37.1 04/22 1743 Pulse 79 04/22 1743 Resp 17 04/22 1743 O2 Delivery Room air 04/22 351 PATIENT WEIGHT: Weight (lb): 231 Weight (oz): 14.82 Weight (kg): 104.78 Medications: Active Meds + DC'd Last 24 Hrs Insulin Glargine (Semglee) 10 UNIT BEDTIME SUBQ Metoprolol Tartrate (LOPRESSOR) 25 MG Q12HR PO Indomethacin (INDOCIN) 75 MG C BK PO Insulin Human Lispro (HUMALOG) 0 AC HS SUBQ Dextrose/Water (DEXTROSE 10% IN WATER) 125 ML ASDIR PRN IV (CKD) Dextrose/Water (DEXTROSE 10% IN WATER) 250 ML ASDIR PRN IV (CKD) Glucagon (GLUCAGON) 1 MG ASDIR PRN IM Vancomycin HCl (Vancomycin 1,250 mg Inj (B2)) 1,250 MG Q12H IV (DC) Sodium Chloride (SODIUM CHLORIDE 0.9%) 250 ML Mupirocin (BACTROBAN 2% 22 GM OINTMENT) 1 APPLIC BID NASAL Cefepime HCl (MAXIPIME) 1 GM Q6H IV Sodium Chloride (SODIUM CHLORIDE) 10 ML Metronidazole (FLAGYL) 500 MG Q8H PO Miscellaneous Information (VANCOMYCIN PHARMACY TO DOSE) 1 EACH ASDIR IV (DC) Sodium Hypochlorite (DAKIN'S 1/2 STRENGTH 0.25% 480 ML TOP SOLN) 1 APPLIC BID TOPICAL Aspirin (ASPIRIN) 81 MG DAILY PO Lisinopril (ZESTRIL) 10 MG DAILY PO Polyethylene Glycol (MIRALAX) 17 GM DAILY PO Insulin Human Lispro (HUMALOG) 0 AC HS SUBQ (DC) Dextrose/Water (DEXTROSE 10% IN WATER) 125 ML ASDIR PRN IV (CAN) Dextrose/Water (DEXTROSE 10% IN WATER) 250 ML ASDIR PRN IV (CAN) Glucagon (GLUCAGON) 1 MG ASDIR PRN IM (CAN) Atorvastatin Calcium (LIPITOR) 80 MG BEDTIME PO Metoprolol Tartrate (LOPRESSOR) 12.5 MG Q12HR PO (DC) Enoxaparin Sodium (lovENOX) 40 MG Q24H SUBQ Gabapentin (NEURONTIN) 200 MG TID PO Miscellaneous Information (LOVENOX PHARMACY TO DOSE) 1 EACH ASDIR SUBQ ( DC) Acetaminophen (TYLENOL) 650 MG Q6H PRN PRN PO Docusate Sodium (COLACE) 100 MG Q12H PRN PRN PO Ondansetron HCl (ZOFRAN ODT) 4 MG Q6H PRN PRN PO I O: 24 hour I O ending at 0700: 04/22 0700 04/21 1900 Intake Total 450.00 1360.00 Output Total 700 550 Balance -250.00 810.00 Intake, IV 250.00 560.00 Intake, Oral 200 800 Number 1 Bowel Movements Output, Urine 700 550 Patient 105.2 kg Weight Weight Standing scale Measurement Method Dietitian nutrition assessment The data set between the solid lines has been imported from the dietitian's assessment. ___ BMI Calculated: 34.7 Nutrition related diagnosis: Nutrition diagnosis details: Nutrition problem: Nutrition etiology: Nutrition signs and symptoms: Nutrition prescription: Dietitian name: Assessment completed: ___ Results Findings/Data: Laboratory Tests: 04/22 04/21 0421 1957 Chemistry Sodium (134 - 147 mEq/L) 139 Potassium (3.4 - 5.0 mEq/L) 4.3 Chloride (100 - 108 mEq/L) 108 Carbon Dioxide (21 - 33 mEq/l) 22 Anion Gap (0 - 20) 14 BUN (7 - 25 mg/dL) 17 Creatinine (0.6 - 1.3 mg/dL) 0.9 Glomerular Filtr Rate (90 - 95) 99.6 H Glucose (77 - 141 mg/dL) 124 POC Glucose (70 - 110 MG/DL) 232 H Calcium (8.0 - 10.5 mg/dL) 9.0 Hematology WBC (4.5 - 11.0 x10 3/uL) 8.6 RBC (4.00 - 5.60 x10 6/uL) 3.89 L Hgb (12.5 - 16.9 g/dL) 11.5 L Hct (37.5 - 50.7 %) 36.2 L MCV (81.0 - 99.0 fL) 93.1 MCH (27.0 - 33.0 pg) 29.6 MCHC (33.0 - 37.0 g/dL) 31.8 L RDW (11.5 - 14.5 %) 12.5 Plt Count (150 - 400 x10 3/uL) 301 MPV (7.0 - 9.0 fL) 10.1 H Neut % (Auto) (56.0 - 77.0 %) 66.1 Lymph % (Auto) (14.0 - 32.0 %) 23.5 [place] % (Auto) (4.8 - 9.0 %) 7.4 Eos % (Auto) (0.3 - 3.7 %) 2.0 Baso % (Auto) (0.0 - 2.0 %) 0.6 Neut # (Auto) (2.0 - 7.6 x10 3/uL) 5.66 Lymph # (Auto) (1.0 - 3.8 x10 3/uL) 2.01 [place] # (Auto) (0.1 - 0.8 x10 3/uL) 0.63 Eos # (Auto) (0.0 - 0.2 x10 3/uL) 0.17 Baso # (Auto) (0.0 - 0.2 x10 3/uL) 0.05 Abs Immat Gran (auto) (0.00 - 0.03 x10 3/uL) 0.03 Immature Gran % (0.0 - 2.0 %) 0.4 Nucleated RBC % (0 - 0 %) 0.0 Nucleated RBCs # (Man) (0.0 - 0.1 x10 3/uL) 0.00 Recent Impressions: RADIOLOGY - XR KNEE 1 OR 2 V LT 04/22 1418 Report Impression - Status: SIGNED Entered: 04/22/2023 5001 IMPRESSION: There is no radiographic evidence of acute bone injury. There is fragmentation of the anterior tibial tuberosity, which could be due to an old or chronic injury. There is anterior soft tissue swelling. Impression By: Norm Salomon M.D. Diagnosis, Assessment Plan Consultants: cardiology, cardiovascular surgery, pulmonary at 2150 RPT #:[id number] END OF REPORT [facility] 2023-04-22 14:16:00 [facility] ([facility]) Endocrinology Progress Note REPORT#:[id number] REPORT STATUS: Signed REPORT INITIALIZATION DATE:04/22/23 TIME: 1415 PATIENT: JONG RIVAS UNIT #: [id number] ROOM/BED: [place] [id number] : 66 AGE: 58 SEX: M ATTEND: Domenic Rainey MD ADM AUTHOR: Vlad Lay MD REPT SERVICE DT/TIME: 04/22/231415 * ALL edits or amendments must be made on the electronic/computer document * Subjective Patient reports: no complaints Objective General VS: Last Documented: Result Date Time Pulse Ox 97 04/22 351 B/P 111/73 04/22 351 B/P Mean 0.0 04/22 351 O2 Delivery Room air 04/22 351 Temp 36.5 04/22 351 Pulse 69 04/22 351 Resp 14 04/22 351 PATIENT WEIGHT: Weight (lb): 231 Weight (oz): 14.82 Weight (kg): 105.200 Medications: Active Meds + DC'd Last 24 Hrs Metoprolol Tartrate (LOPRESSOR) 25 MG Q12HR PO Vancomycin HCl (Vancomycin 1,250 mg Inj (B2)) 1,250 MG Q12H IV (DC) Sodium Chloride (SODIUM CHLORIDE 0.9%) 250 ML Mupirocin (BACTROBAN 2% 22 GM OINTMENT) 1 APPLIC BID NASAL Vancomycin HCl (VANCOMYCIN HCL) 2,500 MG ONCE ONE IV (DC) Sodium Chloride (NS 0.9%) 500 ML Cefepime HCl (MAXIPIME) 1 GM Q6H IV Sodium Chloride (SODIUM CHLORIDE) 10 ML Metronidazole (FLAGYL) 500 MG Q8H PO Miscellaneous Information (VANCOMYCIN PHARMACY TO DOSE) 1 EACH ASDIR IV (DC) Sodium Hypochlorite (DAKIN'S 1/2 STRENGTH 0.25% 480 ML TOP SOLN) 1 APPLIC BID TOPICAL Aspirin (ASPIRIN) 81 MG DAILY PO Lisinopril (ZESTRIL) 10 MG DAILY PO Polyethylene Glycol (MIRALAX) 17 GM DAILY PO Insulin Human Lispro (HUMALOG) 0 AC HS SUBQ Dextrose/Water (DEXTROSE 10% IN WATER) 125 ML ASDIR PRN IV (CKD) Dextrose/Water (DEXTROSE 10% IN WATER) 250 ML ASDIR PRN IV (CKD) Glucagon (GLUCAGON) 1 MG ASDIR PRN IM Atorvastatin Calcium (LIPITOR) 80 MG BEDTIME PO Metoprolol Tartrate (LOPRESSOR) 12.5 MG Q12HR PO (DC) Enoxaparin Sodium (lovENOX) 40 MG Q24H SUBQ Gabapentin (NEURONTIN) 200 MG TID PO Miscellaneous Information (LOVENOX PHARMACY TO DOSE) 1 EACH ASDIR SUBQ ( DC) Acetaminophen (TYLENOL) 650 MG Q6H PRN PRN PO Docusate Sodium (COLACE) 100 MG Q12H PRN PRN PO Ondansetron HCl (ZOFRAN ODT) 4 MG Q6H PRN PRN PO Physical Exam General appearance: alert, awake Diagnosis, Assessment Plan Hospital course to date: Laboratory Tests: 04/22 04/21 04/21 0421 1957 1555 Chemistry Sodium (134 - 147 mEq/L) 139 Potassium (3.4 - 5.0 mEq/L) 4.3 Chloride (100 - 108 mEq/L) 108 Carbon Dioxide (21 - 33 mEq/l) 22 Anion Gap (0 - 20) 14 BUN (7 - 25 mg/dL) 17 Creatinine (0.6 - 1.3 mg/dL) 0.9 Glomerular Filtr Rate (90 - 95) 99.6 H Glucose (77 - 141 mg/dL) 124 POC Glucose (70 - 110 MG/DL) 232 H 133 H Calcium (8.0 - 10.5 mg/dL) 9.0 Hematology WBC (4.5 - 11.0 x10 3/uL) 8.6 RBC (4.00 - 5.60 x10 6/uL) 3.89 L Hgb (12.5 - 16.9 g/dL) 11.5 L Hct (37.5 - 50.7 %) 36.2 L MCV (81.0 - 99.0 fL) 93.1 MCH (27.0 - 33.0 pg) 29.6 MCHC (33.0 - 37.0 g/dL) 31.8 L RDW (11.5 - 14.5 %) 12.5 Plt Count (150 - 400 x10 3/uL) 301 MPV (7.0 - 9.0 fL) 10.1 H Neut % (Auto) (56.0 - 77.0 %) 66.1 Lymph % (Auto) (14.0 - 32.0 %) 23.5 [place] % (Auto) (4.8 - 9.0 %) 7.4 Eos % (Auto) (0.3 - 3.7 %) 2.0 Baso % (Auto) (0.0 - 2.0 %) 0.6 Neut # (Auto) (2.0 - 7.6 x10 3/uL) 5.66 Lymph # (Auto) (1.0 - 3.8 x10 3/uL) 2.01 [place] # (Auto) (0.1 - 0.8 x10 3/uL) 0.63 Eos # (Auto) (0.0 - 0.2 x10 3/uL) 0.17 Baso # (Auto) (0.0 - 0.2 x10 3/uL) 0.05 Abs Immat Gran (auto) (0.00 - 0.03 x10 3/uL) 0.03 Immature Gran % (0.0 - 2.0 %) 0.4 Nucleated RBC % (0 - 0 %) 0.0 Nucleated RBCs # (Man) (0.0 - 0.1 x10 3/uL) 0.00 Microbiology: Date/Time Procedure - Status Source Growth 04/21 153 Blood Culture - RECD BLOOD 04/21 1535 Blood Culture Gram Stain - RECD BLOOD 04/21 1535 Blood Culture - RECD BLOOD 04/21 1535 Blood Culture Gram Stain - RECD BLOOD Recent Impressions: RADIOLOGY - XR FOOT 3 + V LT 04/21 1423 Report Impression - Status: SIGNED Entered: 04/21/2023 1438 IMPRESSION: Interval progression of osteomyelitis involving the fifth metatarsal head and fifth proximal phalanx base about the MTP joint since the prior study from 04/16/2023. Impression By: [email or web address] - Brett Elizabeth M.D. Laboratory Tests: 04/21 04/21 04/21 04/21 1128 0931 0534 0132 Chemistry Sodium (134 - 147 mEq/L) 137 Potassium (3.4 - 5.0 mEq/L) 4.0 Chloride (100 - 108 mEq/L) 105 Carbon Dioxide (21 - 33 mEq/l) 24 Anion Gap (0 - 20) 12 BUN (7 - 25 mg/dL) 18 Creatinine (0.6 - 1.3 mg/dL) 1.1 Glomerular Filtr Rate (90 - 95) 78.3 L Glucose (77 - 141 mg/dL) 181 H POC Glucose (70 - 110 MG/DL) 172 H Calcium (8.0 - 10.5 mg/dL) 9.3 Magnesium (1.6 - 2.6 mg/dL) 1.61 C-Reactive Protein (<10.0 mg/L) 25.0 H Hematology WBC (4.5 - 11.0 x10 3/uL) 7.0 RBC (4.00 - 5.60 x10 6/uL) 4.05 Hgb (12.5 - 16.9 g/dL) 12.0 L Hct (37.5 - 50.7 %) 36.5 L MCV (81.0 - 99.0 fL) 90.1 MCH (27.0 - 33.0 pg) 29.6 MCHC (33.0 - 37.0 g/dL) 32.9 L RDW (11.5 - 14.5 %) 12.0 Plt Count (150 - 400 x10 3/uL) 305 MPV (7.0 - 9.0 fL) 10.5 H Neut % (Auto) (56.0 - 77.0 %) 61.3 Lymph % (Auto) (14.0 - 32.0 %) 27.0 [place] % (Auto) (4.8 - 9.0 %) 8.9 Eos % (Auto) (0.3 - 3.7 %) 1.7 Baso % (Auto) (0.0 - 2.0 %) 0.7 Neut # (Auto) (2.0 - 7.6 x10 3/uL) 4.28 Lymph # (Auto) (1.0 - 3.8 x10 3/uL) 1.89 [place] # (Auto) (0.1 - 0.8 x10 3/uL) 0.62 Eos # (Auto) (0.0 - 0.2 x10 3/uL) 0.12 Baso # (Auto) (0.0 - 0.2 x10 3/uL) 0.05 Abs Immat Gran (auto) (0.00 - 0.03 x10 3/uL) 0.03 Immature Gran % (0.0 - 2.0 %) 0.4 Nucleated RBC % (0 - 0 %) 0.0 Nucleated RBCs # (Man) (0.0 - 0.1 x10 3/uL) 0.00 ESR Westergren (0 - 15 mm/hr) 87 H Urines Urine Color (YEL/STRAW) YELLOW Urine Appearance (CLEAR) CLEAR Urine pH (5.0 - 7.0) 5.0 Ur Specific [place] (1.005 - 1.030) 1.011 Urine Protein (NEGATIVE) NEGATIVE Urine Glucose (UA) (NEGATIVE) 3+ H Urine Ketones (NEGATIVE) NEGATIVE Urine Blood (NEGATIVE) NEGATIVE Urine Nitrite (NEGATIVE) NEGATIVE Urine Bilirubin (NEGATIVE) NEGATIVE Urine Urobilinogen (0.2 - 1.0 mg/dL) 0.2 Ur Leukocyte Esterase (NEGATIVE) NEGATIVE Urine RBC (0 - 3 RBC/HPF) 0-3 Urine WBC (0 - 3 WBC/HPF) 0-3 Ur Squamous Epith Cells (NONE SEEN /HPF) 0-5 Ur Transition Epith Cell (NONE SEEN /HPF) TRACE Urine Bacteria (NONE SEEN /HPF) TRACE Urine Mucus (NONE SEEN /LPF) TRACE 04/20 Chemistry POC Glucose (70 - 110 MG/DL) 325 H Coagulation INR (0.8 - 1.2) 1.3 H PTT ([place]) (25.0 - 39.5 Seconds) 39.3 PT Patient/Control Mix (9.3 - 12.9 SECONDS) 14.5 H Microbiology: Date/Time Procedure - Status Source Growth 04/21 1535 Blood Culture - RECD BLOOD 04/21 1535 Blood Culture Gram Stain - RECD BLOOD 04/21 1535 Blood Culture - RECD BLOOD 04/21 1535 Blood Culture Gram Stain - RECD BLOOD Recent Impressions: RADIOLOGY - XR FOOT 3 + V LT 04/21 1423 Report Impression - Status: SIGNED Entered: 04/21/2023 1438 IMPRESSION: Interval progression of osteomyelitis involving the fifth metatarsal head and fifth proximal phalanx base about the MTP joint since the prior study from 04/16/2023. Impression By: [email or web address] - Brett Elizabeth M.D. 1. 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 2. Coronary artery disease. 6 3. For CABG 4. Ex-smoker 5.Left foot wound 6.Hypertension. 7. Hyperlipidemia Blood sugar 124-218 mg/dL. HbA1c 8.3%. Lipids elevated.This Adjust insulin dose. Diabetes dietary education. at 1417 RPT #:[id number] END OF REPORT [facility] 2023-04-22 12:46:00 [facility] Cardiology Progress Note REPORT#:[id number] REPORT STATUS: Signed REPORT INITIALIZATION DATE:04/22/23 TIME: 1245 PATIENT: JONG RIVAS UNIT #: [id number] [place] [facility] [place] AGE: 58 SEX: M ATTEND: Domenic Rainey MD ADM AUTHOR: Noemí Nieto MD REPT SERVICE DT/TIME: 04/22/23 1246 * ALL edits or amendments must be made on the electronic/computer document * Subjective HPI: 58-year-old male with past medical history of [id number] diabetes mellitus, hypertension, history of PE previously on anticoagulation, right lung cavitary lesion was seen at [facility] on 04/15/2023 with a complaint of shortness of breath for few weeks and chest pain. Patient was found to have initial troponin I of 0.045. In addition, his BNP was thousand 54 pg/mL. Initial EKG showed normal sinus rhythm with right bundle branch block. He was deemed to have NSTEMI. Subsequently, he underwent coronary angiogram via right femoral approach and was found to have multivessel CAD including severe proximal LAD stenosis, severe ostial to proximal circumflex stenosis and a dominant vessel, and nondominant RCA. LVEDP was 13 mmHg. During hospital stay, he was also diagnosed with left diabetic foot infection. Subsequently MRI of the foot showed osteomyelitis of the left fifth toe. Patient was started on IV antibiotics. Cultures grew Pseudomonas aeruginosa and Staph aureus. In addition, patient was deemed to have UTI. Patient was transferred to [facility] for further work-up including possible evaluation for CABG versus high risk PCI. Patient seen this afternoon. Denies any chest pain or shortness of breath at this point. Overall, poor historian. Not able to tell what medications he takes at home. EKG done today 2023 showed normal sinus rhythm with right bundle branch block. Echocardiogram done today showed normal EF, no wall motion normalities, no significant valvular abnormalities. Objective General VS/I O: 24 hour I O ending at 0700: 04/22 0700 04/21 1900 Intake Total 450.00 1360.00 Output Total 700 550 Balance -250.00 810.00 Intake, IV 250.00 560.00 Intake, Oral 200 800 Number 1 Bowel Movements Output, Urine 700 550 Patient 105.2 kg Weight Weight Standing scale Measurement Method Vital Signs: Date Time Temp Pulse Resp B/P B/P Pulse O2 O2 Flow FiO2 Mean Ox Delivery Rate 04/22 0351 97.7 69 14 111/73 0.0 97 Room air 04/21 2327 98.1 69 14 111/71 0.0 96 Room air 04/21 1827 98.4 75 14 110/67 0.0 98 Room air 04/21 1826 75 24 110/67 82 97 04/21 1600 98.2 70 20 101/66 0.0 96 Room air 04/21 1556 70 23 101/66 77 96 04/21 1402 71 35 106/71 84 98 PATIENT WEIGHT: Weight (lb): 231 Weight (oz): 14.82 Weight (kg): 105.200 Medications: Active Meds + DC'd Last 24 Hrs Metoprolol Tartrate (LOPRESSOR) 25 MG Q12HR PO (UNV) Vancomycin HCl (Vancomycin 1,250 mg Inj (B2)) 1,250 MG Q12H IV (DC) Sodium Chloride (SODIUM CHLORIDE 0.9%) 250 ML Mupirocin (BACTROBAN 2% 22 GM OINTMENT) 1 APPLIC BID NASAL Vancomycin HCl (VANCOMYCIN HCL) 2,500 MG ONCE ONE IV (DC) Sodium Chloride (NS 0.9%) 500 ML Cefepime HCl (MAXIPIME) 1 GM Q6H IV Sodium Chloride (SODIUM CHLORIDE) 10 ML Metronidazole (FLAGYL) 500 MG Q8H PO Miscellaneous Information (VANCOMYCIN PHARMACY TO DOSE) 1 EACH ASDIR IV (DC) Sodium Hypochlorite (DAKIN'S 1/2 STRENGTH 0.25% 480 ML TOP SOLN) 1 APPLIC BID TOPICAL Aspirin (ASPIRIN) 81 MG DAILY PO Lisinopril (ZESTRIL) 10 MG DAILY PO Polyethylene Glycol (MIRALAX) 17 GM DAILY PO Insulin Human Lispro (HUMALOG) 0 AC HS SUBQ Dextrose/Water (DEXTROSE 10% IN WATER) 125 ML ASDIR PRN IV (CKD) Dextrose/Water (DEXTROSE 10% IN WATER) 250 ML ASDIR PRN IV (CKD) Glucagon (GLUCAGON) 1 MG ASDIR PRN IM Atorvastatin Calcium (LIPITOR) 80 MG BEDTIME PO Metoprolol Tartrate (LOPRESSOR) 12.5 MG Q12HR PO (DCr) Enoxaparin Sodium (lovENOX) 40 MG Q24H SUBQ Gabapentin (NEURONTIN) 200 MG TID PO Miscellaneous Information (LOVENOX PHARMACY TO DOSE) 1 EACH ASDIR SUBQ ( DC) Acetaminophen (TYLENOL) 650 MG Q6H PRN PRN PO Docusate Sodium (COLACE) 100 MG Q12H PRN PRN PO Ondansetron HCl (ZOFRAN ODT) 4 MG Q6H PRN PRN PO Results Findings/Data: Laboratory Tests 04/22 1555 Chemistry Sodium (134 - 147 mEq/L) 139 Potassium (3.4 - 5.0 mEq/L) 4.3 Chloride (100 - 108 mEq/L) 108 Carbon Dioxide (21 - 33 mEq/l) 22 Anion Gap (0 - 20) 14 BUN (7 - 25 mg/dL) 17 Creatinine (0.6 - 1.3 mg/dL) 0.9 Glomerular Filtr Rate (90 - 95) 99.6 H Glucose (77 - 141 mg/dL) 124 POC Glucose (70 - 110 MG/DL) 232 H 133 H Calcium (8.0 - 10.5 mg/dL) 9.0 Laboratory Tests 04/22 421 Hematology WBC (4.5 - 11.0 x10 3/uL) 8.6 RBC (4.00 - 5.60 x10 6/uL) 3.89 L Hgb (12.5 - 16.9 g/dL) 11.5 L Hct (37.5 - 50.7 %) 36.2 L MCV (81.0 - 99.0 fL) 93.1 MCH (27.0 - 33.0 pg) 29.6 MCHC (33.0 - 37.0 g/dL) 31.8 L RDW (11.5 - 14.5 %) 12.5 Plt Count (150 - 400 x10 3/uL) 301 MPV (7.0 - 9.0 fL) 10.1 H Neut % (Auto) (56.0 - 77.0 %) 66.1 Lymph % (Auto) (14.0 - 32.0 %) 23.5 [place] % (Auto) (4.8 - 9.0 %) 7.4 Eos % (Auto) (0.3 - 3.7 %) 2.0 Baso % (Auto) (0.0 - 2.0 %) 0.6 Neut # (Auto) (2.0 - 7.6 x10 3/uL) 5.66 Lymph # (Auto) (1.0 - 3.8 x10 3/uL) 2.01 [place] # (Auto) (0.1 - 0.8 x10 3/uL) 0.63 Eos # (Auto) (0.0 - 0.2 x10 3/uL) 0.17 Baso # (Auto) (0.0 - 0.2 x10 3/uL) 0.05 Abs Immat Gran (auto) (0.00 - 0.03 x10 3/uL) 0.03 Immature Gran % (0.0 - 2.0 %) 0.4 Nucleated RBC % (0 - 0 %) 0.0 Nucleated RBCs # (Man) (0.0 - 0.1 x10 3/uL) 0.00 Radiology data: Recent Impressions: RADIOLOGY - XR FOOT 3 + V LT 04/21 1423 Report Impression - Status: SIGNED Entered: 04/21/2023 1438 IMPRESSION: Interval progression of osteomyelitis involving the fifth metatarsal head and fifth proximal phalanx base about the MTP joint since the prior study from 04/16/2023. Impression By: [email or web address] - Brett Elizabeth M.D. 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 -We will get arterial Doppler bilateral lower extremities to evaluate for PAD given left diabetic foot infection. -IV antibiotics per ID -Continue aspirin 81 mg daily. Increase atorvastatin from 40 mg to 80 mg nightly. Start metoprolol tartrate 12.5 mg twice daily. -Continue lisinopril 10 mg daily. 04/21/2023 -Patient seen and examined. Telemetry reviewed. Remains in sinus rhythm. Arterial duplex yesterday showed no evidence of any hemodynamically significant stenosis in the bilateral lower extremity arteries. LDL 92 mg/dL. Atorvastatin increased to 80 mg nightly yesterday. Continue aspirin 81 mg daily, lisinopril 10 mg daily, metoprolol tartrate 12.5 mg twice daily. ID on board for osteomyelitis. CT surgery on board for consideration of CABG. Timing will depend on treatment of foot infection. 04/22/2023: -Patient seen and examined. Telemetry reviewed. Remains in normal sinus rhythm. Increase metoprolol to tartrate to 25 mg twice daily. ID on board for osteomyelitis. Plan for CABG per CT surgery when medically stable and infection improved/resolved. Continue aspirin, high intensity atorvastatin, and lisinopril 10 mg daily. at 1248 at 1015 [facility] #:[id number] END OF REPORT [facility] 2023-04-22 10:49:00 [facility] ([facility] Infectious Dis. Progress Note REPORT#:[id number] REPORT STATUS: Signed REPORT INITIALIZATION DATE:04/22/23 TIME: 1049 PATIENT: JONG RIVAS UNIT #: [id number] ROOM/BED: [place] [id number] : [birth year] AGE: 58 SEX: M ATTEND: Domenic Rainey MD ADM AUTHOR: Kirk Wakefield MD REPT SERVICE DT/TIME: 04/22/23 1049 * ALL edits or amendments must be made on the electronic/computer document * Subjective Chief complaint: Left-sided diabetic foot infection with osteomyelitis HPI: Patient reports feeling okay subjectively and denies acute or new complaints currently. No major overnight events. Objective General VS/I O: Vital Signs Date Temp Pulse Resp B/P B/P Mean Pulse Ox FiO2 04/21-04/22 97.7-98.8 69-79 14-24 110-127/67-73 0.0-88.9 96-100 Last Documented: Result Date Time Pulse Ox 100 04/22 1743 B/P 127/70 04/22 1743 B/P Mean 88.9 04/22 1743 Temp 98.8 04/22 174 Pulse 79 04/22 1743 Resp 17 04/22 1743 O2 Delivery Room air 04/22 0351 Vital Signs: Date Time Temp Pulse Resp B/P B/P Pulse O2 O2 Flow FiO2 Mean Ox Delivery Rate 04/22 174 98.8 79 17 127/70 88.9 100 04/22 0351 97.7 69 14 111/73 0.0 97 Room air 04/21 2327 98.1 69 14 111/71 0.0 96 Room air 04/21 1827 98.4 75 14 110/67 0.0 98 Room air 04/21 1826 75 24 110/67 82 97 24 hour I O ending at 0700: 04/22 0700 04/21 1900 Intake Total 450.00 1360.00 Output Total 700 550 Balance -250.00 810.00 Intake, IV 250.00 560.00 Intake, Oral 200 800 Number 1 Bowel Movements Output, Urine 700 550 Patient 105.2 kg Weight Weight Standing scale Measurement Method PATIENT WEIGHT: Weight (lb): 231 Weight (oz): 14.82 Weight (kg): 104.78 Physical Exam General appearance: alert, awake, no acute distress Wound/incision: Location: patient has a deep ulcer on the lateral foot plantar to lateral aspect, which is foul-smelling with purulence Cardiovascular: normal heart sounds, regular rate rhythm, no murmur Respiratory: clear to auscultation, aerating well, symmetric expansion Abdomen: non-tender, soft, no distention Extremities: no cyanosis, no edema 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 Rivas is a 58-year-old male with history of diabetes mellitus type 2, hypertension, prior smoking history, chronic PE, chronic left foot ulcer. He was admitted at [facility] with complaints of chest pain. He had a coronary angiogram done which showed multivessel CAD and EF of 50%. Patient also has a right lower lobe cavitary lung lesion, which is suspected to be from prior PE. TB QuantiFERON has been requested at the outside facility and was pending at the time of transfer. Infectious disease consultation is requested because patient has a chronic, nonhealing wound in the left lateral foot for last 7 to 8 months according to him. The wound is obviously infected and foul-smelling on exam. He had an MRI done at the outside facility, which shows osteomyelitis of the fifth metatarsal. Patient has a PICC line in place, from outside facility. I was able to review blood cultures, which were reportedly negative at 48 hours. He did have a urine culture positive for Pseudomonas. Other culture data is not available to me. Infectious disease consultation is requested for left-sided diabetic foot infection with osteomyelitis. Patient is being evaluated for possible CABG versus high risk PCI *Left-sided diabetic foot infection with osteomyelitis *Left foot cellulitis *Multivessel CAD *RLL cavitary lung lesion, question due to prior PE *Pseudomonas UTI, treated with cefepime *Diabetes mellitus type 2 *Hypertension *Peripheral neuropathy *Prior PE -Afebrile. -Normal WBC count on today's CBC. -ESR 87; CRP 25 on 04/21/2023. -Blood cultures 04/21/23 and 09/27 negative so far x2. -MRSA screen negative. -Called [facility] today. Patient's blood cultures have been negative there. Wound culture is positive for MSSA and Pseudomonas ( pansensitive isolate). Plan: -Discontinue vancomycin. -Continue cefepime and metronidazole -Continue local wound care. -Glycemic control. -Awaiting podiatry's input. -Will discuss timing of CABG versus high risk PCI with cardiology and cardiothoracic surgery. Given active foot infection, it would be best to get the foot infection under control (with local debridement and antibiotics) before proceeding with surgery. However, that would also depend on risk versus benefit ratio of early versus late surgery. -Overall, plan for a 6-week course of antibiotic treatment, given osteomyelitis. CURRENT ANTIMICROBIALS: Cefepime + metronidazole, started 04/21/2023, day 2 at 1828 RPT #:[id number] END OF REPORT [facility] 2023-04-22 09:47:00 [facility] ([facility]) Pharmacy Prog.Note-Vancomycin REPORT#:[id number] REPORT STATUS: Signed REPORT INITIALIZATION DATE:04/22/23 TIME: 946 PATIENT: JONG RIVAS UNIT #: [id number] ROOM/BED: [place] [id number] : 67 AGE: 58 SEX: M ATTEND: Domenic Rainey MD ADM AUTHOR: Hedy Donaldson [facility] REPT SERVICE DT/TIME: 04/22/23 09 * ALL edits or amendments must be made on the electronic/computer document * Vancomycin Vancomycin Medication Therapy Goal: TROUGH 12-18 MCG/ML Indication for treatment: OM Day of therapy: 2 Weight: Actual weight (kg): 105.2 VS and I/O: Vital Signs Date Temp Pulse Resp B/P B/P Mean Pulse Ox FiO2 04/21-04/22 36.5-36.9 67-75 14-35 101-111/65-73 0.0-84 94-98 72 hours ending at 0700 04/22 0700 04/21 1900 04/21 0700 04/20 1900 04/20 04/19 0700 1900 Intake 450.00 1360.00 Total Output 700 550 425 900 Total Balance -250.00 810.00 -425 -900 Intake, IV 250.00 560.00 Intake, 200 800 Oral Number 1 Bowel Movements Output, 700 550 425 900 Urine Patient 105.2 kg 115.6 kg 106.6 kg Weight Weight Standing Standing Standing scale scale scale Measuremen t Method 72 Hour I O Total 04/22 0704/20 07 Intake Total 1810.00 Output Total 1250 425 900 Balance 560.00 -425 -900 Labs: Laboratory Test : 04/22 04/21 04/20 04/20 0421 0132 1055 0318 Chemistry BUN (7 - 25 mg/dL) 17 18 17 19 Creatinine (0.6 - 1.3 mg/dL) 0.9 1.1 1.0 1.1 Hematology WBC (4.5 - 11.0 x10 3/uL) 8.6 7.0 6.6 Microbiology: 04/21 153 BLOOD: Blood Culture - RECD 04/21 1535 BLOOD: Blood Culture Gram Stain - RECD 04/21 1535 BLOOD: Blood Culture - RECD 04/21 1535 BLOOD: Blood Culture Gram Stain - RECD 04/20 1015 NASAL: MSSA Surveillance Screen - COMP 04/20 1015 NASAL: MRSA DNA Surveillance Screen - COMP 04/20 0953 NASAL: MRSA DNA Surveillance Screen - COMP Treatment plan: cont current regimen/dose Regimen: Mr. Rivas is a 58-year-old male with history of diabetes mellitus type 2, hypertension, prior smoking history, chronic PE, chronic left foot ulcer. Infectious disease consultation is requested because patient has a chronic, nonhealing wound in the left lateral foot for last 7 to 8 months according to him. The wound is obviously infected and foul-smelling on exam. He had an MRI done at the outside facility, which shows osteomyelitis of the fifth metatarsal. Patient has a PICC line in place, from outside facility. I was able to review blood cultures, which were reportedly negative at 48 hours. He did have a urine culture positive for Pseudomonas. Other culture data is not available to me. Infectious disease consultation is requested for left-sided diabetic foot infection with osteomyelitis. Patient is being evaluated for possible CABG versus high risk PCI. Pharmacy is consulted by ID for the management of vancomycin. Consulting provider: Kirk Wakefield Indication: OM Goal trough: 12-18 mcg/ml A/P: * AF, WBC: 8.6, BUN/SCR: 17/0.9, CrCl > 100ml/min, UOP: 1250ml/24hr documented. * Micro: blood cs x2 (04/21): pending, MRSA screen (04/20): positive. * Imaging: MRI (at outside facility): Osteomyelitis of the fifth metatarsal. * Regimen: Day 2. Patient received loading dose of vanc 2,500 mg (22 mg/kg) IV once on 04/21. Currently on maintenance regimen of vanc 1250 mg (11 mg/kg) IV q 12hrs. * Plan for trough prior to 4th overall dose. * Will order for vancomycin trough prior to 4th dose tonight at 0230. Will hand off to night [facility] for f/u. * Pharmacy will continue to monitor and adjust dose as warranted. at 0949 RPT #:[id number] END OF REPORT [facility] 2023-04-21 17:36:00 [facility] ([facility]) Endocrinology Progress Note REPORT#:[id number] REPORT STATUS: Signed REPORT INITIALIZATION DATE:04/21/23 TIME: 1735 PATIENT: JONG RIVAS UNIT #: [id number] ROOM/BED: [place] [id number] : 66 AGE: 58 SEX: M ATTEND: Domenic Rainey MD ADM AUTHOR: Vlad Lay MD REPT SERVICE DT/TIME: 04/21/231735 * ALL edits or amendments must be made on the electronic/computer document * Subjective Patient reports: no complaints Objective General VS: Last Documented: Result Date Time Pulse Ox 96 04/21 1600 B/P 101/66 04/21 1600 B/P Mean 0.0 04/21 1600 O2 Delivery Room air 04/21 1600 Temp 36.8 04/21 1600 Pulse 70 04/21 1600 Resp 20 04/21 1600 PATIENT WEIGHT: Weight (lb): 254 Weight (oz): 13.67 Weight (kg): 115.600 Medications: Active Meds + DC'd Last 24 Hrs Vancomycin HCl (Vancomycin 1,250 mg Inj (B2)) 1,250 MG Q12H IV Sodium Chloride (SODIUM CHLORIDE 0.9%) 250 ML Mupirocin (BACTROBAN 2% 22 GM OINTMENT) 1 APPLIC BID NASAL Vancomycin HCl (VANCOMYCIN HCL) 2,500 MG ONCE ONE IV (DC) Sodium Chloride (NS 0.9%) 500 ML Cefepime HCl (MAXIPIME) 1 GM Q6H IV Sodium Chloride (SODIUM CHLORIDE) 10 ML Metronidazole (FLAGYL) 500 MG Q8H PO Miscellaneous Information (VANCOMYCIN PHARMACY TO DOSE) 1 EACH ASDIR IV (CKD) Sodium Hypochlorite (DAKIN'S 1/2 STRENGTH 0.25% 480 ML TOP SOLN) 1 APPLIC BID TOPICAL Aspirin (ASPIRIN) 81 MG DAILY PO Lisinopril (ZESTRIL) 10 MG DAILY PO Polyethylene Glycol (MIRALAX) 17 GM DAILY PO Polyethylene Glycol (MIRALAX) 17 GM DAILY PO (CAN) Insulin Human Lispro (HUMALOG) 0 AC HS SUBQ Dextrose/Water (DEXTROSE 10% IN WATER) 125 ML ASDIR PRN IV (CKD) Dextrose/Water (DEXTROSE 10% IN WATER) 250 ML ASDIR PRN IV (CKD) Glucagon (GLUCAGON) 1 MG ASDIR PRN IM Neomycin/Polymyxin/Bacitracin (NEOSPORIN) 0.94 GM ONCE ONE TOPICAL (DC) Atorvastatin Calcium (LIPITOR) 80 MG BEDTIME PO Metoprolol Tartrate (LOPRESSOR) 12.5 MG Q12HR PO Enoxaparin Sodium (lovENOX) 40 MG Q24H SUBQ Gabapentin (NEURONTIN) 200 MG TID PO Miscellaneous Information (LOVENOX PHARMACY TO DOSE) 1 EACH ASDIR SUBQ ( CKD) Acetaminophen (TYLENOL) 650 MG Q6H PRN PRN PO Docusate Sodium (COLACE) 100 MG Q12H PRN PRN PO Ondansetron HCl (ZOFRAN ODT) 4 MG Q6H PRN PRN PO Physical Exam General appearance: alert, awake Diagnosis, Assessment Plan Hospital course to date: Laboratory Tests: 04/21 04/21 04/21 04/21 1128 0931 0534 0132 Chemistry Sodium (134 - 147 mEq/L) 137 Potassium (3.4 - 5.0 mEq/L) 4.0 Chloride (100 - 108 mEq/L) 105 Carbon Dioxide (21 - 33 mEq/l) 24 Anion Gap (0 - 20) 12 BUN (7 - 25 mg/dL) 18 Creatinine (0.6 - 1.3 mg/dL) 1.1 Glomerular Filtr Rate (90 - 95) 78.3 L Glucose (77 - 141 mg/dL) 181 H POC Glucose (70 - 110 MG/DL) 172 H Calcium (8.0 - 10.5 mg/dL) 9.3 Magnesium (1.6 - 2.6 mg/dL) 1.61 C-Reactive Protein (<10.0 mg/L) 25.0 H Hematology WBC (4.5 - 11.0 x10 3/uL) 7.0 RBC (4.00 - 5.60 x10 6/uL) 4.05 Hgb (12.5 - 16.9 g/dL) 12.0 L Hct (37.5 - 50.7 %) 36.5 L MCV (81.0 - 99.0 fL) 90.1 MCH (27.0 - 33.0 pg) 29.6 MCHC (33.0 - 37.0 g/dL) 32.9 L RDW (11.5 - 14.5 %) 12.0 Plt Count (150 - 400 x10 3/uL) 305 MPV (7.0 - 9.0 fL) 10.5 H Neut % (Auto) (56.0 - 77.0 %) 61.3 Lymph % (Auto) (14.0 - 32.0 %) 27.0 [place] % (Auto) (4.8 - 9.0 %) 8.9 Eos % (Auto) (0.3 - 3.7 %) 1.7 Baso % (Auto) (0.0 - 2.0 %) 0.7 Neut # (Auto) (2.0 - 7.6 x10 3/uL) 4.28 Lymph # (Auto) (1.0 - 3.8 x10 3/uL) 1.89 [place] # (Auto) (0.1 - 0.8 x10 3/uL) 0.62 Eos # (Auto) (0.0 - 0.2 x10 3/uL) 0.12 Baso # (Auto) (0.0 - 0.2 x10 3/uL) 0.05 Abs Immat Gran (auto) (0.00 - 0.03 x10 3/uL) 0.03 Immature Gran % (0.0 - 2.0 %) 0.4 Nucleated RBC % (0 - 0 %) 0.0 Nucleated RBCs # (Man) (0.0 - 0.1 x10 3/uL) 0.00 ESR Westergren (0 - 15 mm/hr) 87 H Urines Urine Color (YEL/STRAW) YELLOW Urine Appearance (CLEAR) CLEAR Urine pH (5.0 - 7.0) 5.0 Ur Specific [place] (1.005 - 1.030) 1.011 Urine Protein (NEGATIVE) NEGATIVE Urine Glucose (UA) (NEGATIVE) 3+ H Urine Ketones (NEGATIVE) NEGATIVE Urine Blood (NEGATIVE) NEGATIVE Urine Nitrite (NEGATIVE) NEGATIVE Urine Bilirubin (NEGATIVE) NEGATIVE Urine Urobilinogen (0.2 - 1.0 mg/dL) 0.2 Ur Leukocyte Esterase (NEGATIVE) NEGATIVE Urine RBC (0 - 3 RBC/HPF) 0-3 Urine WBC (0 - 3 WBC/HPF) 0-3 Ur Squamous Epith Cells (NONE SEEN /HPF) 0-5 Ur Transition Epith Cell (NONE SEEN /HPF) TRACE Urine Bacteria (NONE SEEN /HPF) TRACE Urine Mucus (NONE SEEN /LPF) TRACE 04/20 Chemistry POC Glucose (70 - 110 MG/DL) 325 H Coagulation INR (0.8 - 1.2) 1.3 H PTT (Solano) (25.0 - 39.5 Seconds) 39.3 PT Patient/Control Mix (9.3 - 12.9 SECONDS) 14.5 H Microbiology: Date/Time Procedure - Status Source Growth 04/21 1535 Blood Culture - RECD BLOOD 04/21 1535 Blood Culture Gram Stain - RECD BLOOD 04/21 1535 Blood Culture - RECD BLOOD 04/21 1535 Blood Culture Gram Stain - RECD BLOOD Recent Impressions: RADIOLOGY - XR FOOT 3 + V LT 04/21 1423 Report Impression - Status: SIGNED Entered: 04/21/2023 1438 IMPRESSION: Interval progression of osteomyelitis involving the fifth metatarsal head and fifth proximal phalanx base about the MTP joint since the prior study from 04/16/2023. Impression By: [email or web address] Janiya Elizabeth M.D. 1. 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 2. Coronary artery disease. 6 3. For CABG 4. Ex-smoker 5.Left foot wound 6.Hypertension. 7. Hyperlipidemia Blood sugar 181-1 56 mg/dL. HbA1c 8.3%. Lipids elevated.This Adjust insulin dose. Diabetes dietary education. Consultants: cardiology, cardiovascular surgery, pulmonary at 1739 RPT #:[id number] END OF REPORT [facility] 2023-04-21 15:07:00 [id number] [address] PATIENT NAME: JONG RIVAS ADMIT DATE: 04/19/23 ACCOUNT NO: [id number] ROOM NO: [facility] AGE: 58 REPORT TYPE: CONSULTATION REPORT SEX: M ADMITTING PHYSICIAN:Domenic Rainey MD ATTENDING PHYSICIAN:Domenic Rainey MD CONSULTATION DATE: 04/21/2023 ENDOCRINE CONSULTATION PATIENT OF: Dr. Rainey Thank you very much for referring this patient. HISTORY OF PRESENT ILLNESS: This is a 58-year-old white male gentleman who is referred to me for evaluation of diabetes mellitus. The patient is a known diabetic for almost 8 years and takes a combination of metformin and glyburide at home. He has multiple complications from diabetes including diabetic sensorimotor neuropathy. The patient also has a history of hypertension and is an ex-smoker. He has a non-healing ulcer on the left foot. The patient was brought to the hospital because of chest pain and was found to have acute coronary syndrome. On further evaluation, the patient has multivessel coronary artery disease with ejection fraction of 50%. The patient is scheduled for possible bypass surgery. PHYSICAL EXAMINATION: GENERAL: Today, the patient is alert, awake, a little bit apprehensive. VITAL SIGNS: His heart rate is around 70, blood pressure 140/80 mmHg. HEENT: Essentially unremarkable. NECK: Thyroid is palpable. Clinically, he is near euthyroid. CHEST: Diminished bilateral vesicular breathing. He has mild bronchospasm. CARDIAC: Both first and second heart sounds. There is no third or fourth heart sound. Ejection sound, grade II/. EXTREMITIES: The patient has evidence of diabetic sensorimotor neuropathy in both lower extremities and he has a non-healing ulcer of the left foot. LABORATORY DATA: His blood sugars are in the ranges of 156-250. His glycohemoglobin is 8.3. His lipids are elevated. CLINICAL IMPRESSION: Diabetes mellitus type 2, uncontrolled with complications, coronary artery disease, multivessel blockage, hypertension, hyperlipidemia, left foot ulcer, chronic cavitary lesion on CT scan of the chest, diabetes mellitus type 2 with complications. PLAN: The plan at this time is to put him on Lantus and Humalog insulin, monitor his blood sugars closely and the patient needs extensive diabetic and dietary education. Thanks for referring this patient. I will be following this patient with you. PATIENT NAME: JONG RIVAS Dictated By: Vlad Lay MD Date Dictated: 04/21/2023 15:07:59 Date Transcribed: 04/21/2023 15:26:20 [place]A/[place]/YASMIN Receipt ID: [id number] Authenticated by Jacob Lay MD On 04/26/2023 08:06:10 PM at 0806 PATIENT NAME: JONG RIVAS [facility] 2023-04-21 15:04:00 [facility]) Pharmacy Prog.Note-Vancomycin REPORT#:[id number] REPORT STATUS: Signed REPORT INITIALIZATION DATE:04/21/23 TIME: 150 PATIENT: JONG RIVAS UNIT #: [id number] ROOM/BED: [place] [address] : 66 AGE: 58 SEX: M ATTEND: Domenic Rainey MD ADM [facility]: 04/21/23 1504 * ALL edits or amendments must be made on the electronic/computer document * See Addendum Vancomycin Vancomycin Medication Therapy Goal: TROUGH 12-18 MCG/ML Indication for treatment: OM VS and I/O: Vital Signs Date Temp Pulse Resp B/P B/P Mean Pulse Ox FiO2 04/20-04/21 36.7-36.9 66-81 13-20 101-168/65-88 0.0-111.8 93-100 72 hours ending at 0700 04/21 0700 04/20 1900 Intake Total Output 425 900 Total Balance -425 -900 Output, 425 900 Urine Patient 115.6 kg 106.6 kg Weight Weight Standing Standing scale scale Measuremen t Method 72 Hour I O Total 04/21/01 0700 04/19 07 Intake Total Output Total 425 900 Balance -425 -900 Labs: Laboratory Test : 04/21 04/20 04/20 0132 1055 0318 Chemistry BUN (7 - 25 mg/dL) 18 17 19 Creatinine (0.6 - 1.3 mg/dL) 1.1 1.0 1.1 Hematology WBC (4.5 - 11.0 x10 3/uL) 7.0 6.6 Microbiology: 04/21 132 BLOOD: Blood Culture - ORD 04/21 132 BLOOD: Blood Culture Gram Stain - ORD 04/21 132 BLOOD: Blood Culture - ORD 04/21 132 BLOOD: Blood Culture Gram Stain - ORD 04/20 1015 NASAL: MSSA Surveillance Screen - COMP 04/20 1015 NASAL: MRSA DNA Surveillance Screen - COMP 04/20 0953 NASAL: MRSA DNA Surveillance Screen - COMP Treatment plan: consult, initiation of therapy Regimen: Mr. Rivas is a 58-year-old male with history of diabetes mellitus type 2, hypertension, prior smoking history, chronic PE, chronic left foot ulcer. Infectious disease consultation is requested because patient has a chronic, nonhealing wound in the left lateral foot for last 7 to 8 months according to him. The wound is obviously infected and foul-smelling on exam. He had an MRI done at the outside facility, which shows osteomyelitis of the fifth metatarsal. Patient has a PICC line in place, from outside facility. I was able to review blood cultures, which were reportedly negative at 48 hours. He did have a urine culture positive for Pseudomonas. Other culture data is not available to me. Infectious disease consultation is requested for left-sided diabetic foot infection with osteomyelitis. Patient is being evaluated for possible CABG versus high risk PCI. Pharmacy is consulted by ID for the management of vancomycin. Consulting provider: Kirk Wakefield Indication: OM Goal trough: 12-18 mcg/ml A/P * Afebrile with Tmax 36.9 C. WBC 7 (WNL) * Renal: BUN/SrCr 18/1.1. eCrCl 93 ml/min (adj BW). UOP 425 ml/24hrs documented. * Micro: 04/20 MRSA screen positive. * Imaging: MRI (at outside facility): Osteomyelitis of the fifth metatarsal * Regimen: Day 1. Will load patient with vanc 2,500 mg (22 mg/kg) IV once. Will follow with a maintenance regimen of vanc 1250 mg (11 mg/kg) IV q 12hrs. * Plan for trough prior to 4th overall dose. * Pharmacy will continue to monitor and follow. at 1506 Addendum 1: 04/21/23 1558 by Priscilla Davis [facility] Correction: MRSA screen negative. at 1559 RPT #:[id number] END OF REPORT [facility] 2023-04-21 13:51:00 [facility] Cardiothoracic Surgery Prog REPORT#:[id number] REPORT STATUS: Signed REPORT INITIALIZATION DATE:04/21/23 TIME: 135 PATIENT: JONG RIVAS UNIT #: [id number] ROOM/BED: [place] [address] : 66 AGE: 58 SEX: M ATTEND: Domenic Rainey MD ADM AUTHOR: Mirian Robin NP REPT SERVICE DT/TIME: 04/21/23 1351 * ALL edits or amendments must be made on the electronic/computer document * General Status post: CABG Eval Subjective Chief complaint: Referral for CAD, CABG Eval Currently no complaints, resting comfortable HPI: 57-year-old male, poor historian, PMHx diabetes on metformin, neuropathy, HTN, former smoker, PE chronic nonhealing left foot ulcer at the fifth metatarsal located posterior lateral, with no known prior cardiovascular disease. Patient transferred from [facility], referred to us from Dr. Forde for acute coronary syndrome, unstable angina, ischemic heart disease status post coronary angiogram, with findings of multivessel CAD, EF 50%. Upon further chart review patient found to have chronic cavitary lung lesion on CT chest pending QuantiFERON, left lower extremity diabetic foot ulcer concerning for osteomyelitis MRI done at [place] and will upload imaging, foot wound culture with pseudomonas, UTI with urine culture Pseudomonas treated with cefepime. Patient reports dyspnea on exertion and mild chest pain x1 year. Patient reports: No: complaints. Review of Systems Constitutional: Reports: fatigue. Skin: Denies: bruising, contusion, diaphoresis, ecchymosis. Allergy/Immun: Denies: allergic reaction, itching, rhinorrhea, sneezing. Eyes: Denies: redness, discharge, visual loss/blurred. ENT: Denies: throat pain, throat swelling, tongue pain, tongue swelling, toothache. Respiratory: Reports: MENDES (dyspnea on exertion). Denies: SOB, wheezing. Cardiovascular: Denies: chest pain, edema, orthopnea, palpitations. GI: Denies: abdominal pain, nausea, vomiting. : Denies: dysuria, flank pain. Musculoskeletal: Denies: extremity pain, extremity swelling. Psych: Denies: agitation, anxiety, auditory hallucination, visual hallucination. All systems rev neg: except as marked Objective General VS/I O Last Documented: Result Date Time Pulse Ox 94 04/21 113 B/P 101/65 04/21 1133 B/P Mean 0.0 04/21 113 O2 Delivery Room air 04/21 1133 Temp 98.2 04/21 113 Pulse 67 04/21 1133 Resp 20 04/21 1133 24 hour I O ending at 0700: 04/21 0700 04/20 1900 Intake Total Output Total 425 Balance -425 Output, Urine 425 Patient 115.6 kg 106.6 kg Weight Weight Standing scale Standing scale Measurement Method PATIENT WEIGHT: Weight (lb): 254 Weight (oz): 13.67 Weight (kg): 115.600 Physical Exam General appearance: alert, awake, oriented, no acute distress Wound/incision: Location: Left foot ulcer HEENT: anicteric, mucosal membranes moist, pupils reactive to light Neck: full range of motion, non-tender Cardiovascular: normal heart sounds, regular rate rhythm Respiratory: aerating well, clear to auscultation, symmetric expansion, no distress Abdomen: soft, non-tender Genitourinary: no bladder distention, no flank pain Extremities: dry, moves all, normal capillary refill, normal temperature Musculoskeletal: full range of motion, painless range of motion 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, 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 X 3 Psychiatry: normal affect, normal judgment/insight Current Medications Medications: Active Meds + DC'd Last 24 Hrs Vancomycin HCl (VANCOMYCIN HCL) 2,500 MG ONCE ONE IV Sodium Chloride (NS 0.9%) 500 ML Cefepime HCl (MAXIPIME) 1 GM Q6H IV Sodium Chloride (SODIUM CHLORIDE) 10 ML Metronidazole (FLAGYL) 500 MG Q8H PO Miscellaneous Information (VANCOMYCIN PHARMACY TO DOSE) 1 EACH ASDIR IV (CKD) Sodium Hypochlorite (DAKIN'S 1/2 STRENGTH 0.25% 480 ML TOP SOLN) 1 APPLIC BID TOPICAL Aspirin (ASPIRIN) 81 MG DAILY PO Lisinopril (ZESTRIL) 10 MG DAILY PO Polyethylene Glycol (MIRALAX) 17 GM DAILY PO Polyethylene Glycol (MIRALAX) 17 GM DAILY PO (CAN) Insulin Human Lispro (HUMALOG) 0 AC HS SUBQ Dextrose/Water (DEXTROSE 10% IN WATER) 125 ML ASDIR PRN IV (CKD) Dextrose/Water (DEXTROSE 10% IN WATER) 250 ML ASDIR PRN IV (CKD) Glucagon (GLUCAGON) 1 MG ASDIR PRN IM Neomycin/Polymyxin/Bacitracin (NEOSPORIN) 0.94 GM ONCE ONE TOPICAL (DC) Atorvastatin Calcium (LIPITOR) 40 MG BEDTIME PO (DC) Atorvastatin Calcium (LIPITOR) 80 MG BEDTIME PO Metoprolol Tartrate (LOPRESSOR) 12.5 MG Q12HR PO Aspirin (ASPIRIN) 325 MG C BK PO (DC) Enoxaparin Sodium (lovENOX) 40 MG Q24H SUBQ Gabapentin (NEURONTIN) 200 MG TID PO Miscellaneous Information (LOVENOX PHARMACY TO DOSE) 1 EACH ASDIR SUBQ ( CKD) Acetaminophen (TYLENOL) 650 MG Q6H PRN PRN PO Docusate Sodium (COLACE) 100 MG Q12H PRN PRN PO Ondansetron HCl (ZOFRAN ODT) 4 MG Q6H PRN PRN PO Results Findings/Data: Laboratory Tests 04/21 04/21 04/21 04/20 04/20 1128 0931 7630 6075 7930 Chemistry Sodium (134 - 147 mEq/L) 137 Potassium (3.4 - 5.0 mEq/L) 4.0 Chloride (100 - 108 mEq/L) 105 Carbon Dioxide (21 - 33 mEq/l) 24 Anion Gap (0 - 20) 12 BUN (7 - 25 mg/dL) 18 Creatinine (0.6 - 1.3 mg/dL) 1.1 Glomerular Filtr Rate (90 - 95) 78.3 L Glucose (77 - 141 mg/dL) 181 H POC Glucose (70 - 110 MG/DL) 172 H 325 H 266 H Calcium (8.0 - 10.5 mg/dL) 9.3 Magnesium (1.6 - 2.6 mg/dL) 1.61 C-Reactive Protein (<10.0 mg/L) 25.0 H Laboratory Tests 04/20 2156 Coagulation INR (0.8 - 1.2) 1.3 H PTT (Solano) (25.0 - 39.5 Seconds) 39.3 PT Patient/Control Mix (9.3 - 12.9 SECONDS) 14.5 H Laboratory Tests 04/21 04/21 0931 0132 Hematology WBC (4.5 - 11.0 x10 3/uL) 7.0 RBC (4.00 - 5.60 x10 6/uL) 4.05 Hgb (12.5 - 16.9 g/dL) 12.0 L Hct (37.5 - 50.7 %) 36.5 L MCV (81.0 - 99.0 fL) 90.1 MCH (27.0 - 33.0 pg) 29.6 MCHC (33.0 - 37.0 g/dL) 32.9 L RDW (11.5 - 14.5 %) 12.0 Plt Count (150 - 400 x10 3/uL) 305 MPV (7.0 - 9.0 fL) 10.5 H Neut % (Auto) (56.0 - 77.0 %) 61.3 Lymph % (Auto) (14.0 - 32.0 %) 27.0 [place] % (Auto) (4.8 - 9.0 %) 8.9 Eos % (Auto) (0.3 - 3.7 %) 1.7 Baso % (Auto) (0.0 - 2.0 %) 0.7 Neut # (Auto) (2.0 - 7.6 x10 3/uL) 4.28 Lymph # (Auto) (1.0 - 3.8 x10 3/uL) 1.89 [place] # (Auto) (0.1 - 0.8 x10 3/uL) 0.62 Eos # (Auto) (0.0 - 0.2 x10 3/uL) 0.12 Baso # (Auto) (0.0 - 0.2 x10 3/uL) 0.05 Abs Immat Gran (auto) (0.00 - 0.03 x10 3/uL) 0.03 Immature Gran % (0.0 - 2.0 %) 0.4 Nucleated RBC % (0 - 0 %) 0.0 Nucleated RBCs # (Man) (0.0 - 0.1 x10 3/uL) 0.00 ESR Westergren (0 - 15 mm/hr) 87 H Laboratory Tests 04/21 0534 Urines Urine Color (YEL/STRAW) YELLOW Urine Appearance (CLEAR) CLEAR Urine pH (5.0 - 7.0) 5.0 Ur Specific [place] (1.005 - 1.030) 1.011 Urine Protein (NEGATIVE) NEGATIVE Urine Glucose (UA) (NEGATIVE) 3+ H Urine Ketones (NEGATIVE) NEGATIVE Urine Blood (NEGATIVE) NEGATIVE Urine Nitrite (NEGATIVE) NEGATIVE Urine Bilirubin (NEGATIVE) NEGATIVE Urine Urobilinogen (0.2 - 1.0 mg/dL) 0.2 Ur Leukocyte Esterase (NEGATIVE) NEGATIVE Urine RBC (0 - 3 RBC/HPF) 0-3 Urine WBC (0 - 3 WBC/HPF) 0-3 Ur Squamous Epith Cells (NONE SEEN /HPF) 0-5 Ur Transition Epith Cell (NONE SEEN /HPF) TRACE Urine Bacteria (NONE SEEN /HPF) TRACE Urine Mucus (NONE SEEN /LPF) TRACE Radiology data: Recent Impressions: ULTRASOUND - DOP ART SGL LEVEL ANALI 04/20 1608 Report Impression - Status: SIGNED Entered: 2023 4819 IMPRESSION: No hemodynamically significant narrowing noted involving the major arteries. Left PRUDENCE could not be calculated. Please refer to the findings section for additional details. Impression By: HelderAHLiliana Montgomery M.D. Diagnosis, Assessment Plan Free Text A P: 57-year-old male, poor historian, PMHx diabetes on metformin, neuropathy, HTN, former smoker, PE chronic nonhealing left foot ulcer at the fifth metatarsal located posterior lateral, with no known prior cardiovascular disease. Patient transferred from [facility], referred to us from Dr. Forde for acute coronary syndrome, unstable angina, ischemic heart disease status post coronary angiogram, with findings of multivessel CAD, EF 50%. Upon further chart review patient found to have chronic cavitary lung lesion on CT chest pending QuantiFERON, left lower extremity diabetic foot ulcer concerning for osteomyelitis MRI done at [place] and will upload imaging, foot wound culture with pseudomonas, UTI with urine culture Pseudomonas treated with cefepime. Patient reports dyspnea on exertion and mild chest pain x1 year. 04/18/23: Coronary angiogram done at [facility] Left main patent LAD with high-grade and tortuous calcified lesion just after the first diagonal estimated 95% stenosis first diagonal branch with severe calcified disease 99% Ramus 90 to 95% stenosis, left circumflex artery 99% proximal stenosis OM branches severe disease as well. RCA 90%. LVEDP 11 mmHg and angiography demonstrated preserved LV systolic function, EF 50%. Inferior wall demonstrated mild hypokinesis. 1-2+ MR on LV angio. RICHARDS patent Carotid angiogram, patent carotids Assessment: CAD, severe multivessel Left foot nonhealing foot ulcer Chronic cavitary lesion noted on CT chest UTI Pseudomonas 2023 Patient seen and evaluated by Dr. Rainey CABG eval underway -Consult pulmonology, cardiology, wound care -Lovenox DVT prophylaxis Continue supportive care Further recommendations to follow 04/21/2023 CABG eval underway Patient sitting up in bed, room air, no distress. No complaints Patient with multiple complex medical issues ongoing. Timing of major CV surgery pending medical optimization. We will discuss patient at high risk CV Case conference on Tuesday. -Continue supportive care Seen and examined by Dr. Rainey Consultants: cardiology, cardiovascular surgery, pulmonary Plan discussed with: patient, collaborating MD, nurse at 1408 at 0535 [facility] #:[id number] END OF REPORT [facility] 2023-04-21 11:49:00 [facility] ([facility] Infect Disease Consult Note REPORT#:[id number] REPORT STATUS: Signed REPORT INITIALIZATION DATE:04/21/23 TIME: 1149 PATIENT: JONG RIVAS UNIT #: [id number] ROOM/BED: [place] [address] : 66 AGE: 58 SEX: M ATTEND: Domenic Rainey MD ADM AUTHOR: Kirk Wakefield MD REPT SERVICE DT/TIME: 04/21/23 2846 * ALL edits or amendments must be made on the electronic/computer document * History of Present Illness Requesting Clinician: Mirian Robin NP Reason for consult: Recent culture positive wound, CABG eval HPI: Mr. Rivas is a 58-year-old male with history of diabetes mellitus type 2, hypertension, prior smoking history, chronic PE, chronic left foot ulcer. He was admitted at [facility] with complaints of chest pain. He had a coronary angiogram done which showed multivessel CAD and EF of 50%. Patient also has a right lower lobe cavitary lung lesion, which is suspected to be from prior PE. TB QuantiFERON has been requested at the outside facility and was pending at the time of transfer. Infectious disease consultation is requested because patient has a chronic, nonhealing wound in the left lateral foot for last 7 to 8 months according to him. The wound is obviously infected and foul-smelling on exam. He had an MRI done at the outside facility, which shows osteomyelitis of the fifth metatarsal. Patient has a PICC line in place, from outside facility. I was able to review blood cultures, which were reportedly negative at 48 hours. He did have a urine culture positive for Pseudomonas. Other culture data is not available to me. Infectious disease consultation is requested for left-sided diabetic foot infection with osteomyelitis. Patient is being evaluated for possible CABG versus high risk PCI History - Adult longitudinal Past medical history: Reports: Anemia, Diabetes mellitus, Hypertension. Past surgical history: Reports: Knee procedure. Family history: Reports: Diabetes, Heart disease. Alcohol use: Alcohol use (1-7 drinks per week) Drug use: Denies recreational drugs Smoking status for patients 13 years old or older: Never Smoker Allergies: Coded Allergies: No Known Allergies (04/20/23) Review of Systems Free Text ROS Notes Free Text ROS Notes: A 12-point review of systems was performed and the pertinent positives and negatives are detailed in HPI. Review of systems is negative otherwise. Objective General VS/I O: Vital Signs Date Temp Pulse Resp B/P B/P Mean Pulse Ox FiO2 04/20-04/21 98.1-98.4 66-81 13-20 101-168/65-88 0.0-111.8 93-100 Last Documented: Result Date Time Pulse Ox 94 04/21 1133 B/P 101/65 04/21 1133 B/P Mean 0.0 04/21 113 O2 Delivery Room air 04/21 1133 Temp 98.2 04/21 1133 Pulse 67 04/21 1133 Resp 20 04/21 1133 Vital Signs: Date Time Temp Pulse Resp B/P B/P Pulse O2 O2 Flow FiO2 Mean Ox Delivery Rate 04/21 113 98.2 67 20 101/65 0.0 94 Room air 04/21 0736 98.1 69 20 110/68 0.0 93 Room air 04/21 0526 98.4 71 13 114/65 0.0 95 Room air 04/21 0052 66 18 146/79 106 100 04/21 0021 98.1 69 13 168/81 0.0 99 Room air 04/20 2359 98.4 73 16 159/88 111.8 97 Room air 04/20 2013 98.4 81 16 156/85 108.4 100 Room air 04/20 1720 98.4 70 18 147/82 103.8 99 Room air 24 hour I O ending at 0700: 04/21 0700 04/20 1900 Intake Total Output Total 425 Balance -425 Output, Urine 425 Patient 115.6 kg 106.6 kg Weight Weight Standing scale Standing scale Measurement Method PATIENT WEIGHT: Weight (lb): 254 Weight (oz): 13.67 Weight (kg): 115.600 Physical Exam General appearance: alert, awake, no acute distress Wound/incision: Location: patient has a deep ulcer on the lateral foot plantar to lateral aspect, which is foul-smelling with purulence Head/Eyes: atraumatic, normocephalic Neck: supple/no meningismus, no JVD Cardiovascular: normal heart sounds, regular rate rhythm, no murmur Respiratory: clear to auscultation, aerating well, symmetric expansion Abdomen: non-tender, soft, no distention Extremities: no cyanosis, no edema 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, oriented X 3, no motor deficits Skin: normal turgor, no rash Psychiatry: normal affect, normal mood Results Findings/Data: Laboratory Tests 04/21 04/21 04/20 04/20 0931 0132 3048 1717 Chemistry Sodium (134 - 147 mEq/L) 137 Potassium (3.4 - 5.0 mEq/L) 4.0 Chloride (100 - 108 mEq/L) 105 Carbon Dioxide (21 - 33 mEq/l) 24 Anion Gap (0 - 20) 12 BUN (7 - 25 mg/dL) 18 Creatinine (0.6 - 1.3 mg/dL) 1.1 Glomerular Filtr Rate (90 - 95) 78.3 L Glucose (77 - 141 mg/dL) 181 H POC Glucose (70 - 110 MG/DL) 325 H 266 H Calcium (8.0 - 10.5 mg/dL) 9.3 Magnesium (1.6 - 2.6 mg/dL) 1.61 C-Reactive Protein (<10.0 mg/L) 25.0 H Laboratory Tests 04/20 2156 Coagulation INR (0.8 - 1.2) 1.3 H PTT ([place]) (25.0 - 39.5 Seconds) 39.3 PT Patient/Control Mix (9.3 - 12.9 SECONDS) 14.5 H Laboratory Tests 04/21 04/21 0931 0132 Hematology WBC (4.5 - 11.0 x10 3/uL) 7.0 RBC (4.00 - 5.60 x10 6/uL) 4.05 Hgb (12.5 - 16.9 g/dL) 12.0 L Hct (37.5 - 50.7 %) 36.5 L MCV (81.0 - 99.0 fL) 90.1 MCH (27.0 - 33.0 pg) 29.6 MCHC (33.0 - 37.0 g/dL) 32.9 L RDW (11.5 - 14.5 %) 12.0 Plt Count (150 - 400 x10 3/uL) 305 MPV (7.0 - 9.0 fL) 10.5 H Neut % (Auto) (56.0 - 77.0 %) 61.3 Lymph % (Auto) (14.0 - 32.0 %) 27.0 [place] % (Auto) (4.8 - 9.0 %) 8.9 Eos % (Auto) (0.3 - 3.7 %) 1.7 Baso % (Auto) (0.0 - 2.0 %) 0.7 Neut # (Auto) (2.0 - 7.6 x10 3/uL) 4.28 Lymph # (Auto) (1.0 - 3.8 x10 3/uL) 1.89 [place] # (Auto) (0.1 - 0.8 x10 3/uL) 0.62 Eos # (Auto) (0.0 - 0.2 x10 3/uL) 0.12 Baso # (Auto) (0.0 - 0.2 x10 3/uL) 0.05 Abs Immat Gran (auto) (0.00 - 0.03 x10 3/uL) 0.03 Immature Gran % (0.0 - 2.0 %) 0.4 Nucleated RBC % (0 - 0 %) 0.0 Nucleated RBCs # (Man) (0.0 - 0.1 x10 3/uL) 0.00 ESR Westergren (0 - 15 mm/hr) 87 H Laboratory Tests 04/21 0534 Urines Urine Color (YEL/STRAW) YELLOW Urine Appearance (CLEAR) CLEAR Urine pH (5.0 - 7.0) 5.0 Ur Specific [place] (1.005 - 1.030) 1.011 Urine Protein (NEGATIVE) NEGATIVE Urine Glucose (UA) (NEGATIVE) 3+ H Urine Ketones (NEGATIVE) NEGATIVE Urine Blood (NEGATIVE) NEGATIVE Urine Nitrite (NEGATIVE) NEGATIVE Urine Bilirubin (NEGATIVE) NEGATIVE Urine Urobilinogen (0.2 - 1.0 mg/dL) 0.2 Ur Leukocyte Esterase (NEGATIVE) NEGATIVE Urine RBC (0 - 3 RBC/HPF) 0-3 Urine WBC (0 - 3 WBC/HPF) 0-3 Ur Squamous Epith Cells (NONE SEEN /HPF) 0-5 Ur Transition Epith Cell (NONE SEEN /HPF) TRACE Urine Bacteria (NONE SEEN /HPF) TRACE Urine Mucus (NONE SEEN /LPF) TRACE Radiology data: Recent Impressions: CAT SCAN - CT CHEST W/O CONTRAST 04/20 1328 Report Impression - Status: SIGNED Entered: 2023 1340 IMPRESSION: No cardiomegaly or pericardial effusion seen. Aorta does not appear aneurysmal. Please refer to the findings section for additional details. Impression By: [email or web address] Janiya Montgomery M.D. ULTRASOUND - DOP ART SGL LEVEL ANALI 04/20 1608 Report Impression - Status: SIGNED Entered: 2023 1625 IMPRESSION: No hemodynamically significant narrowing noted involving the major arteries. Left PRUDENCE could not be calculated. Please refer to the findings section for additional details. Impression By: [email or web address] Janiya Montgomery M.D. Diagnosis, Assessment Plan Free Text DxA P Notes Free text DxA P notes: Assessment: Mr. Rivas is a 58-year-old male with: *Left-sided diabetic foot infection with osteomyelitis *Left foot cellulitis *Multivessel CAD *RLL cavitary lung lesion, question due to prior PE *Pseudomonas UTI, treated with cefepime *Diabetes mellitus type 2 *Hypertension *Peripheral neuropathy *Prior PE Plan: -Request MRSA screen. -Blood cultures were done at outside facility and were negative at 48 hours. -Will call [facility] to get updated culture results. -Would not repeat blood cultures here, since the yield would likely be low. -Patient already has had MRI at the outside facility. -Empirically, would start patient on a combination of cefepime, metronidazole and vancomycin. -Recommend podiatry evaluation. Would request podiatry to obtain deep tissue cultures, as it would help narrow down antimicrobial treatment. -Continue local wound care. -Glycemic control. -Will discuss timing of CABG versus high risk PCI with cardiology and cardiothoracic surgery. Given active foot infection, it would be best to get the foot infection under control before proceeding with surgery. However, that would also depend on risk versus benefit ratio of early versus late surgery. Discussed with Dr. oDwd at bedside. Thank you for the consult. We will follow the patient with you. at 1212 RPT #:[id number] END OF REPORT [facility] 2023-04-21 09:08:00 [facility] ([facility]) Pulmonary Consult Note - Brief REPORT#:[id number] REPORT STATUS: Signed REPORT INITIALIZATION DATE:04/21/23 TIME: 907 PATIENT: JONG RIVAS UNIT #: [id number] ROOM/BED: 3357[address]1 : 66 AGE: 58 SEX: M ATTEND: Domenic Rainey MD ADM AUTHOR: Gil Klein MD REPT SERVICE DT/TIME: 04/21/23 0908 * ALL edits or amendments must be made on the electronic/computer document * History of Present Illness HPI Requesting Clinician: Dr. Rainey Reason for consult: Abnormal CT chest, cyst Chief complaint: None PCP: PCP: Domenic Rainey MD HPI: A 58-year-old male with poorly controlled DM-2, HTN, PE previously on AC, anemia of chronic illness, CAD, and diabetic foot infection (OM), who was transferred for evaluation for CABG. He was found to have RLL cavitary lesion on the CT chest wo contrast and pulm was consulted. Denied MENDES, SOB, LL edema, rash, cough , hemoptysis, wt loss, night sweats, wheezing, URTI symptoms, hx of asthma/COPD, hx of malignancy, and hx f TB or atypical infections. 3.5 yrs ago, he was got COVID-19 PNA and stayed in the hospital doer 6 weeks on HFNC and had right chest tube to drain the pleural fluid. No other pulm infections. Denied smoking. History - Adult longitudinal Past medical history: Reports: Anemia, Diabetes mellitus, Hypertension. Past surgical history: Reports: Knee procedure. Family history: Reports: Diabetes, Heart disease. Alcohol use: Alcohol use (1-7 drinks per week) Drug use: Denies recreational drugs Smoking status for patients 13 years old or older: Never Smoker Allergies: Coded Allergies: No Known Allergies (04/20/23) Pulmonary Brief Consult Note Free Text A P: Assessment: RLL lung cyst 2.3 cm and minimal scarring. Probably old infection sequelae ( COVID-19 PNA and chest tube insertion 3.5 years ago) PLAN: No further w/u is needed Thank you Vitals: Last Documented: Result Date Time Pulse Ox 93 04/21 736 B/P 110/68 04/21 736 B/P Mean 0.0 04/21 736 O2 Delivery Room air 04/21 736 Temp 98.1 04/21 736 Pulse 69 04/21 736 Resp 20 04/21 736 General appearance: alert, awake, oriented, no acute distress, conversational, mental status normal, no respiratory distress Head/eyes: atraumatic, normocephalic ENT: ENT: normal pharynx Neck: no JVD Cardiovascular: normal heart sounds, normal S1/S2 Respiratory/chest: aerating well, clear to auscultation, symmetric expansion, no distress Abdomen: soft, non-tender, no distention Extremities: no edema Musculoskeletal: normal inspection 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, oriented X 3, CNII-XII intact, no motor deficits Skin: intact at 1009 RPT #:[id number] END OF REPORT [facility] 2023-04-21 08:46:00 [facility] ([facility]) Wound Care Consultation Note REPORT#:[id number] REPORT STATUS: Signed REPORT INITIALIZATION DATE:04/21/23 TIME: 845 PATIENT: JONG RIVAS UNIT #: [id number] ROOM/BED: [place] [address] : 66 AGE: 58 SEX: M ATTEND: Domenic Rainey MD ADM AUTHOR: Temo Iniguez MD REPT SERVICE DT/TIME: 04/21/23 0846 * ALL edits or amendments must be made on the electronic/computer document * HPI/History - Adult longitud Requesting clinician: Lobito Reason for consult: Left foot wound Chief complaint: Left foot wound HPI: 58-year-old male who is a very poor historian, has a history of diabetes with neuropathy, hypertension, former smoker, who has left foot lateral wound for approximately 6 to 8 months. He was seeing somebody for the wound aspect but has noticed that recently the wound has become worse with foul odor emanating from the site. Patient is admitted over here for cardiac evaluation and consultations obtained for wound management. Patient had arterial Doppler which did not reveal any significant narrowing of the major arteries in the lower extremity. Past medical history: Reports: Diabetes mellitus, Hypertension. Past surgical history: Reports: Knee procedure. Family history: Reports: Diabetes, Heart disease. Alcohol use: Alcohol use (1-7 drinks per week) Drug use: Denies recreational drugs Smoking status for patients 13 years old or older: Never Smoker Allergies: Coded Allergies: No Known Allergies (04/20/23) Review of Systems All systems rev neg: except as marked Objective General VS: Last Documented: Result Date Time Pulse Ox 93 04/21 736 B/P 110/68 04/21 736 B/P Mean 0.0 04/21 736 O2 Delivery Room air 04/21 736 Temp 36.7 04/21 736 Pulse 69 04/21 736 Resp 20 04/21 736 PATIENT WEIGHT: Weight (lb): 254 Weight (oz): 13.67 Weight (kg): 115.600 Medications: Active Meds + DC'd Last 24 Hrs Aspirin (ASPIRIN) 81 MG DAILY PO Lisinopril (ZESTRIL) 10 MG DAILY PO Polyethylene Glycol (MIRALAX) 17 GM DAILY PO Polyethylene Glycol (MIRALAX) 17 GM DAILY PO (CAN) Insulin Human Lispro (HUMALOG) 0 AC HS SUBQ Dextrose/Water (DEXTROSE 10% IN WATER) 125 ML ASDIR PRN IV (CKD) Dextrose/Water (DEXTROSE 10% IN WATER) 250 ML ASDIR PRN IV (CKD) Glucagon (GLUCAGON) 1 MG ASDIR PRN IM Neomycin/Polymyxin/Bacitracin (NEOSPORIN) 0.94 GM ONCE ONE TOPICAL (DC) Atorvastatin Calcium (LIPITOR) 40 MG BEDTIME PO (DC) Atorvastatin Calcium (LIPITOR) 80 MG BEDTIME PO Metoprolol Tartrate (LOPRESSOR) 12.5 MG Q12HR PO Aspirin (ASPIRIN) 325 MG C BK PO (DC) Enoxaparin Sodium (lovENOX) 40 MG Q24H SUBQ Gabapentin (NEURONTIN) 200 MG TID PO Miscellaneous Information (LOVENOX PHARMACY TO DOSE) 1 EACH ASDIR SUBQ ( CKD) Perflutren Lipid Microsphere (Definity) 0 .STK-MED ONE IV (DC) Acetaminophen (TYLENOL) 650 MG Q6H PRN PRN PO Docusate Sodium (COLACE) 100 MG Q12H PRN PRN PO Ondansetron HCl (ZOFRAN ODT) 4 MG Q6H PRN PRN PO Physical Exam General appearance: awake Respiratory: no distress Wound Assessment Wound Assessment 1: Type/cause: diabetic, bacterial Wound location: foot (left lateral 5th met) Tissue layers: with bone necrosis Site condition: dehiscence, drainage, necrotic tissue, odor, (palpable bone) Diagnosis, Assessment Plan Problem List/A P: 1. Diabetic foot ulcer with osteomyelitis 2. Diabetic peripheral neuropathy 3. Coronary artery disease 4. Diabetes mellitus with hyperglycemia 5. Hyperlipemia Free Text A P: We will apply Dakin solution to the left foot wound to reduce the odor and the drainage. We will obtain imaging of the left foot area. Recommend podiatry consultation because the wound will need surgical intervention. at 0855 RPT #:[id number] END OF REPORT [facility] 2023-04-21 07:09:00 [facility] ([facility]) Cardiology Progress Note REPORT#:[id number] REPORT STATUS: Signed REPORT INITIALIZATION DATE:04/21/23 TIME: 708 PATIENT: JONG RIVAS UNIT #: [id number] ROOM[address]BED: [address] : [birth year] AGE: 58 SEX: M ATTEND: Domenic Rainey MD ADM AUTHOR: Noemí Nieto MD REPT SERVICE DT/TIME: 04/21/23 0709 * ALL edits or amendments must be made on the electronic/computer document * Subjective HPI: 58-year-old male with past medical history of [id number] diabetes mellitus, hypertension, history of PE previously on anticoagulation, right lung cavitary lesion was seen at [facility] on 04/15/2023 with a complaint of shortness of breath for few weeks and chest pain. Patient was found to have initial troponin I of 0.045. In addition, his BNP was thousand 54 pg/mL. Initial EKG showed normal sinus rhythm with right bundle branch block. He was deemed to have NSTEMI. Subsequently, he underwent coronary angiogram via right femoral approach and was found to have multivessel CAD including severe proximal LAD stenosis, severe ostial to proximal circumflex stenosis and a dominant vessel, and nondominant RCA. LVEDP was 13 mmHg. During hospital stay, he was also diagnosed with left diabetic foot infection. Subsequently MRI of the foot showed osteomyelitis of the left fifth toe. Patient was started on IV antibiotics. Cultures grew Pseudomonas aeruginosa and Staph aureus. In addition, patient was deemed to have UTI. Patient was transferred to [facility] for further work-up including possible evaluation for CABG versus high risk PCI. Patient seen this afternoon. Denies any chest pain or shortness of breath at this point. Overall, poor historian. Not able to tell what medications he takes at home. EKG done today 2023 showed normal sinus rhythm with right bundle branch block. Echocardiogram done today showed normal EF, no wall motion normalities, no significant valvular abnormalities. Objective General VS/I O: 24 hour I O ending at 0700: 04/21 0700 04/20 1900 Intake Total Output Total 425 Balance -425 Output, Urine 425 Patient 115.6 kg 106.6 kg Weight Weight Standing scale Standing scale Measurement Method Vital Signs: Date Time Temp Pulse Resp B/P B/P Pulse O2 O2 Flow FiO2 Mean Ox Delivery Rate 04/21 1133 98.2 67 20 101/65 0.0 94 Room air 04/21 0736 98.1 69 20 110/68 0.0 93 Room air 04/21 0526 98.4 71 13 114/65 0.0 95 Room air 04/21 0052 66 18 146/79 106 100 04/21 0021 98.1 69 13 168/81 0.0 99 Room air 04/20 2359 98.4 73 16 159/88 111.8 97 Room air 04/20 2013 98.4 81 16 156/85 108.4 100 Room air 04/20 1720 98.4 70 18 147/82 103.8 99 Room air PATIENT WEIGHT: Weight (lb): 254 Weight (oz): 13.67 Weight (kg): 115.600 Medications: Active Meds + DC'd Last 24 Hrs Vancomycin HCl (VANCOMYCIN HCL) 2,500 MG ONCE ONE IV Sodium Chloride (NS 0.9%) 500 ML Cefepime HCl (MAXIPIME) 1 GM Q6H IV Sodium Chloride (SODIUM CHLORIDE) 10 ML Metronidazole (FLAGYL) 500 MG Q8H PO Miscellaneous Information (VANCOMYCIN PHARMACY TO DOSE) 1 EACH ASDIR IV (CKD) Sodium Hypochlorite (DAKIN'S 1/2 STRENGTH 0.25% 480 ML TOP SOLN) 1 APPLIC BID TOPICAL Aspirin (ASPIRIN) 81 MG DAILY PO Lisinopril (ZESTRIL) 10 MG DAILY PO Polyethylene Glycol (MIRALAX) 17 GM DAILY PO Polyethylene Glycol (MIRALAX) 17 GM DAILY PO (CAN) Insulin Human Lispro (HUMALOG) 0 AC HS SUBQ Dextrose/Water (DEXTROSE 10% IN WATER) 125 ML ASDIR PRN IV (CKD) Dextrose/Water (DEXTROSE 10% IN WATER) 250 ML ASDIR PRN IV (CKD) Glucagon (GLUCAGON) 1 MG ASDIR PRN IM Neomycin/Polymyxin/Bacitracin (NEOSPORIN) 0.94 GM ONCE ONE TOPICAL (DC) Atorvastatin Calcium (LIPITOR) 40 MG BEDTIME PO (DC) Atorvastatin Calcium (LIPITOR) 80 MG BEDTIME PO Metoprolol Tartrate (LOPRESSOR) 12.5 MG Q12HR PO Aspirin (ASPIRIN) 325 MG C BK PO (DC) Enoxaparin Sodium (lovENOX) 40 MG Q24H SUBQ Gabapentin (NEURONTIN) 200 MG TID PO Miscellaneous Information (LOVENOX PHARMACY TO DOSE) 1 EACH ASDIR SUBQ ( CKD) Acetaminophen (TYLENOL) 650 MG Q6H PRN PRN PO Docusate Sodium (COLACE) 100 MG Q12H PRN PRN PO Ondansetron HCl (ZOFRAN ODT) 4 MG Q6H PRN PRN PO Results Findings/Data: Laboratory Tests 04/21 04/21 04/21 04/20 04/20 1128 0903 0132 2014 9417 Chemistry Sodium (134 - 147 mEq/L) 137 Potassium (3.4 - 5.0 mEq/L) 4.0 Chloride (100 - 108 mEq/L) 105 Carbon Dioxide (21 - 33 mEq/l) 24 Anion Gap (0 - 20) 12 BUN (7 - 25 mg/dL) 18 Creatinine (0.6 - 1.3 mg/dL) 1.1 Glomerular Filtr Rate (90 - 95) 78.3 L Glucose (77 - 141 mg/dL) 181 H POC Glucose (70 - 110 MG/DL) 172 H 325 H 266 H Calcium (8.0 - 10.5 mg/dL) 9.3 Magnesium (1.6 - 2.6 mg/dL) 1.61 C-Reactive Protein (<10.0 mg/L) 25.0 H Laboratory Tests 04/20 2156 Coagulation INR (0.8 - 1.2) 1.3 H PTT (Jalen) (25.0 - 39.5 Seconds) 39.3 PT Patient/Control Mix (9.3 - 12.9 SECONDS) 14.5 H Laboratory Tests 04/21 04/21 0931 7412 Hematology WBC (4.5 - 11.0 x10 3/uL) 7.0 RBC (4.00 - 5.60 x10 6/uL) 4.05 Hgb (12.5 - 16.9 g/dL) 12.0 L Hct (37.5 - 50.7 %) 36.5 L MCV (81.0 - 99.0 fL) 90.1 MCH (27.0 - 33.0 pg) 29.6 MCHC (33.0 - 37.0 g/dL) 32.9 L RDW (11.5 - 14.5 %) 12.0 Plt Count (150 - 400 x10 3/uL) 305 MPV (7.0 - 9.0 fL) 10.5 H Neut % (Auto) (56.0 - 77.0 %) 61.3 Lymph % (Auto) (14.0 - 32.0 %) 27.0 [place] % (Auto) (4.8 - 9.0 %) 8.9 Eos % (Auto) (0.3 - 3.7 %) 1.7 Baso % (Auto) (0.0 - 2.0 %) 0.7 Neut # (Auto) (2.0 - 7.6 x10 3/uL) 4.28 Lymph # (Auto) (1.0 - 3.8 x10 3/uL) 1.89 [place] # (Auto) (0.1 - 0.8 x10 3/uL) 0.62 Eos # (Auto) (0.0 - 0.2 x10 3/uL) 0.12 Baso # (Auto) (0.0 - 0.2 x10 3/uL) 0.05 Abs Immat Gran (auto) (0.00 - 0.03 x10 3/uL) 0.03 Immature Gran % (0.0 - 2.0 %) 0.4 Nucleated RBC % (0 - 0 %) 0.0 Nucleated RBCs # (Man) (0.0 - 0.1 x10 3/uL) 0.00 ESR Westergren (0 - 15 mm/hr) 87 H Laboratory Tests 04/21 0534 Urines Urine Color (YEL/STRAW) YELLOW Urine Appearance (CLEAR) CLEAR Urine pH (5.0 - 7.0) 5.0 Ur Specific [place] (1.005 - 1.030) 1.011 Urine Protein (NEGATIVE) NEGATIVE Urine Glucose (UA) (NEGATIVE) 3+ H Urine Ketones (NEGATIVE) NEGATIVE Urine Blood (NEGATIVE) NEGATIVE Urine Nitrite (NEGATIVE) NEGATIVE Urine Bilirubin (NEGATIVE) NEGATIVE Urine Urobilinogen (0.2 - 1.0 mg/dL) 0.2 Ur Leukocyte Esterase (NEGATIVE) NEGATIVE Urine RBC (0 - 3 RBC/HPF) 0-3 Urine WBC (0 - 3 WBC/HPF) 0-3 Ur Squamous Epith Cells (NONE SEEN /HPF) 0-5 Ur Transition Epith Cell (NONE SEEN /HPF) TRACE Urine Bacteria (NONE SEEN /HPF) TRACE Urine Mucus (NONE SEEN /LPF) TRACE Laboratory Tests 04/21 0132 Chemistry Magnesium (1.6 - 2.6 mg/dL) 1.61 Radiology data: Recent Impressions: CAT SCAN - CT CHEST W/O CONTRAST 04/20 1328 Report Impression - Status: SIGNED Entered: 2023 1340 IMPRESSION: No cardiomegaly or pericardial effusion seen. Aorta does not appear aneurysmal. Please refer to the findings section for additional details. Impression By: Valentina Montgomery M.D. ULTRASOUND - DOP ART SGL LEVEL ANALI 04/20 1608 Report Impression - Status: SIGNED Entered: 2023 1625 IMPRESSION: No hemodynamically significant narrowing noted involving the major arteries. Left PRUDENCE could not be calculated. Please refer to the findings section for additional details. Impression By: Valentina Montgomery M.D. 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 -We will get arterial Doppler bilateral lower extremities to evaluate for PAD given left diabetic foot infection. -IV antibiotics per ID -Continue aspirin 81 mg daily. Increase atorvastatin from 40 mg to 80 mg nightly. Start metoprolol tartrate 12.5 mg twice daily. -Continue lisinopril 10 mg daily. 04/21/2023 -Patient seen and examined. Telemetry reviewed. Remains in sinus rhythm. Arterial duplex yesterday showed no evidence of any hemodynamically significant stenosis in the bilateral lower extremity arteries. LDL 92 mg/dL. Atorvastatin increased to 80 mg nightly yesterday. Continue aspirin 81 mg daily, lisinopril 10 mg daily, metoprolol tartrate 12.5 mg twice daily. ID on board for osteomyelitis. CT surgery on board for consideration of CABG. Timing will depend on treatment of foot infection. at 1325 at 1014 RPT #:[id number] END OF REPORT [facility] 2023 14:51:00 THIS REPORT HAS BEEN APPENDED [id number] [place] [address] PATIENT NAME: JONG RIVAS ADMIT DATE: 04/19/23 ACCOUNT NO: [id number] ROOM NO: 334 AGE: 58 REPORT TYPE: eECHOCARDIOGRAM REPORT SEX: M ADMITTING PHYSICIAN:Domenic Rainey MD ATTENDING PHYSICIAN:Domenic Rainey MD *[place] [address] Transthoracic Echocardiogram Patient: Jong Rivas Study Date: 2023 BP: 109 / 71 Location: [facility] URN: [id number] : 1965 Age: 58 Height: 69 in / 175.3 cm Gender: M Weight: 238.5 lb / 108.4 kg BMI/BSA: 35.3 kg/m 2 / 2.34 m 2 *Ordering Physician: * Mirian Robin *Interpreting Physician: * Noemí Nieto *Metal Extrusion Supervisor: * Jones Barrera, Hoa RCS Indications: CARDIAC SURGERY PRE OP. Study data: Transthoracic echocardiogram. Procedure: Transthoracic echocardiography was performed. Image quality was fair. Complete 2D, complete spectral Doppler, and color Doppler. Location: Bedside. Patient status: Inpatient. Patient room number: 4412. Study status: Routine. Findings Left ventricle: The cavity size is normal. Wall thickness is increased. Systolic function is normal. The estimated ejection fraction is 55-60%. Wall motion is normal; there are no regional wall motion abnormalities. Doppler parameters are consistent with abnormal left ventricular PATIENT NAME: JONG RIVAS relaxation (grade 1 diastolic dysfunction). Right ventricle: The cavity size is normal. Systolic function is normal. Left atrium: The atrium is normal in size. Right atrium: The atrium is normal in size. Aorta: Aortic root: The aortic root is normal in size. Aortic valve: The valve is trileaflet. The leaflets are mildly thickened. There is no evidence of stenosis. There is no regurgitation. Mitral valve: The annulus is calcified. There is no evidence of stenosis. There is trivial regurgitation. Tricuspid valve: The valve is structurally normal. There is no regurgitation. Pulmonic valve: The valve is structurally normal. There is no regurgitation. Pericardium: A prominent pericardial fat pad is present. There is no pericardial effusion. Pulmonary arteries: The main pulmonary artery is normal-sized. Systemic veins: Inferior vena cava: The vessel is normal in size. The respirophasic diameter changes are in the normal range (= 50%). Measurements Left ventricle Value Ref MINA, LAX 4.0 cm 4.2 - 5.8 ESD, LAX 2.7 cm 2.5 - 4.0 ESD/bsa, LAX 1.1 cm/m 2 1.3 - 2.1 FS, LAX 33 % 25 - 43 ESD/bsa major 2.4 cm/m 2 --------- ax, A4C MINA/bsa minor 2.4 cm/m 2 --------- ax, A4C MINA major ax, 7.6 cm --------- A2C ESD major ax, 6.3 cm --------- A2C MINA/bsa major 3.2 cm/m 2 --------- ax, A2C ESD/bsa major 2.7 cm/m 2 --------- ax, A2C PW, ED 1.2 cm 0.6 - 1.0 IVS/PW, ED 1.02 --------- EF 63 % 52 - 72 E', lat felicita, 9.3 cm/sec >=10.0 TDI E/e', lat felicita, 11 --------- TDI E', med felicita, 6.4 cm/sec >=7.0 TDI E/e', med felicita, 15 --------- TDI PATIENT NAME: JONG RIVAS E', avg, TDI 7.8 cm/sec --------- E/e', avg, TDI 12 <=14 LVOT Value Ref Diam, S 2.00 cm --------- Area 3.1 cm 2 --------- Peak ciera, S 1.04 m/sec --------- Mean ciera, S 0.75 m/sec --------- VTI, S 26.5 cm --------- Peak grad, S 4 mm Hg --------- Mean grad, S 2 mm Hg --------- SV 83 ml --------- Qs 5.38 L/min --------- Qs/bsa 2.3 L/(min-m 2) --------- SV/bsa 36 ml/m 2 --------- Ventricular septum Value Ref IVS, ED 1.2 cm 0.6 - 1.0 Right ventricle Value Ref MINA, LAX 2.8 cm --------- TAPSE, MM 2.6 cm 1.7 - 3.1 Left atrium Value Ref AP dim, ES 3.77 cm 3.00 - 4.00 Vol/bsa, ES, 18 ml/m 2 12 - 37 1-p A4C Vol, ES, 2-p 47 ml --------- Vol/bsa, ES, 20 ml/m 2 16 - 34 2-p Vol/bsa, ES, 18 ml/m 2 16 - 34 A/L Right atrium Value Ref Area, ES 9 cm 2 10 - 18 Aortic valve Value Ref Peak v, S 1.78 m/sec --------- Mean v, S 1.28 m/sec --------- VTI, S 35.4 cm --------- Mean grad, S 7.1 mm Hg --------- Peak grad, S 12.7 mm Hg --------- LVOT/AV, VTI 0.75 --------- ratio NADJA, VTI 2.35 cm 2 --------- LVOT/AV, Vpeak 0.58 --------- ratio NADJA, Vmax 1.83 cm 2 --------- Mitral valve Value Ref Peak E 0.08 m/sec --------- Peak A 0.92 m/sec --------- Mean v, D 0.69 m/sec --------- PATIENT NAME: JONG RIVAS VTI leaflet 33.9 cm --------- coapt Decel time 201 ms --------- PHT 74 ms --------- Mean grad, D 2.1 mm Hg --------- Peak grad, D 4.0 mm Hg --------- Peak E/A ratio 1.07 --------- MVA, PHT 3.0 cm 2 --------- Pulmonic valve Value Ref UT v, ED 0.65 m/sec --------- Aortic root Value Ref Root diam 2.8 cm <4.4 Ascending aorta Value Ref AAo AP diam, S 2.9 cm --------- AAo AP 1.3 cm/m 2 --------- diam/bsa, S Conclusions Summary: 1. Left ventricle: The cavity size is normal. Wall thickness is increased. Systolic function is normal. The estimated ejection fraction is 55-60%. Wall motion is normal; there are no regional wall motion abnormalities. Doppler parameters are consistent with abnormal left ventricular relaxation (grade 1 diastolic dysfunction). 2. Mitral valve: There is trivial regurgitation. Prepared and electronically signed by Noemí Nieto 2023 14:50 at 1451 SECTION 2 ADDENDUM 1: 07/05/23 1555 GCD.CPS *[facility] [address] [place] [address] Transthoracic Echocardiogram (Report amended [id number]) Patient: Jong Rivas PATIENT NAME: JONG RIVAS Study Date: 2023 BP: 109 / 71 Location: [facility] URN: [id number] : 1965 Age: 58 Height: 69 in / 175.3 cm Gender: M Weight: 238.5 lb / 108.4 kg BMI/BSA: 35.3 kg/m 2 / 2.34 m 2 *Ordering Physician: * Mirian Robin *Interpreting Physician: * Job Guerrero MD *Metal Extrusion Supervisor: * Hoa Osborn Indications: CARDIAC SURGERY PRE OP. Study data: Transthoracic echocardiogram. Procedure: Transthoracic echocardiography was performed. Image quality was fair. Complete 2D, complete spectral Doppler, and color Doppler. Location: Bedside. Patient status: Inpatient. Patient room number: 4412. Study status: Routine. Findings Left ventricle: The cavity size is normal. Wall thickness is increased. Systolic function is normal. The estimated ejection fraction is 55-60%. Wall motion is normal; there are no regional wall motion abnormalities. Doppler parameters are consistent with abnormal left ventricular relaxation (grade 1 diastolic dysfunction). Right ventricle: The cavity size is normal. Systolic function is normal. Left atrium: The atrium is normal in size. Right atrium: The atrium is normal in size. Aorta: Aortic root: The aortic root is normal in size. Aortic valve: The valve is trileaflet. The leaflets are mildly thickened. There is no evidence of stenosis. There is no regurgitation. Mitral valve: The annulus is calcified. There is no evidence of stenosis. There is trivial regurgitation. Tricuspid valve: The valve is structurally normal. There is no regurgitation. Pulmonic valve: The valve is structurally normal. There is no regurgitation. Pericardium: A prominent pericardial fat pad is present. There is no pericardial effusion. Pulmonary arteries: The main pulmonary artery is normal-sized. Systemic veins: Inferior vena cava: The vessel is normal in size. The respirophasic diameter changes are in the normal range (= 50%). Measurements Left ventricle Value Ref MINA, LAX 4.0 cm 4.2 - 5.8 PATIENT NAME: JONG RIVAS ESD, LAX 2.7 cm 2.5 - 4.0 ESD/bsa, LAX 1.1 cm/m 2 1.3 - 2.1 FS, LAX 33 % 25 - 43 ESD/bsa major ax, A4C 2.4 cm/m 2 MINA/bsa minor ax, A4C 2.4 cm/m 2 MINA major ax, A2C 7.6 cm ESD major ax, A2C 6.3 cm MINA/bsa major ax, A2C 3.2 cm/m 2 ESD/bsa major ax, A2C 2.7 cm/m 2 PW, ED 1.2 cm 0.6 - 1.0 IVS/PW, ED 1.02 EF 63 % 52 - 72 E', lat felicita, TDI 9.3 cm/sec >=10.0 E/e', lat felicita, TDI 11 E', med felicita, TDI 6.4 cm/sec >=7.0 E/e', med felicita, TDI 15 E', avg, TDI 7.8 cm/sec E/e', avg, TDI 12 <=14 LVOT Value Ref Diam, S 2.00 cm Area 3.1 cm 2 Peak ciera, S 1.04 m/sec Mean ciera, S 0.75 m/sec VTI, S 26.5 cm Peak grad, S 4 mm Hg Mean grad, S 2 mm Hg SV 83 ml Qs 5.38 L/min Qs/bsa 2.3 L/(min-m 2) SV/bsa 36 ml/m 2 Ventricular septum Value Ref IVS, ED 1.2 cm 0.6 - 1.0 Right ventricle Value Ref MINA, LAX 2.8 cm TAPSE, MM 2.6 cm 1.7 - 3.1 Left atrium Value Ref AP dim, ES 3.77 cm 3.00 - 4.00 Vol/bsa, ES, 1-p A4C 18 ml/m 2 12 - 37 Vol, ES, 2-p 47 ml Vol/bsa, ES, 2-p 20 ml/m 2 16 - 34 Vol/bsa, ES, A/L 18 ml/m 2 16 - 34 Right atrium Value Ref Area, ES 9 cm 2 10 - 18 Aortic valve Value Ref Peak v, S 1.78 m/sec Mean v, S 1.28 m/sec VTI, S 35.4 cm Mean grad, S 7.1 mm Hg PATIENT NAME: JONG RIVAS Peak grad, S 12.7 mm Hg LVOT/AV, VTI ratio 0.75 NADJA, VTI 2.35 cm 2 LVOT/AV, Vpeak ratio 0.58 NADJA, Vmax 1.83 cm 2 Mitral valve Value Ref Peak E 0.08 m/sec Peak A 0.92 m/sec Mean v, D 0.69 m/sec VTI leaflet coapt 33.9 cm Decel time 201 ms PHT 74 ms Mean grad, D 2.1 mm Hg Peak grad, D 4.0 mm Hg Peak E/A ratio 1.07 MVA, PHT 3.0 cm 2 Pulmonic valve Value Ref UT v, ED 0.65 m/sec Aortic root Value Ref Root diam 2.8 cm <4.4 Ascending aorta Value Ref AAo AP diam, S 2.9 cm AAo AP diam/bsa, S 1.3 cm/m 2 Conclusions Summary: 1. Left ventricle: The cavity size is normal. Wall thickness is increased. Systolic function is normal. The estimated ejection fraction is 55-60%. Wall motion is normal; there are no regional wall motion abnormalities. Doppler parameters are consistent with abnormal left ventricular relaxation (grade 1 diastolic dysfunction). 2. Mitral valve: There is trivial regurgitation. Amended Job Guerrero MD 07/05/2023 15:55 PATIENT NAME: JONG RIVAS [facility] 2023 13:46:00 [facility] Cardiology Consultation REPORT#:[id number] REPORT STATUS: Signed REPORT INITIALIZATION DATE:04/20/23 TIME: 1345 PATIENT: JONG RIVAS UNIT #: [id number] ROOM/BED: [place] [id number] : [birth year] AGE: 58 SEX: M ATTEND: Domenic Rainey MD ADM AUTHOR: Noemí Nieto MD REPT SERVICE DT/TIME: 04/20/23 1346 * ALL edits or amendments must be made on the electronic/computer document * History of Present Illness HPI HPI: 58-year-old male with past medical history of [id number] diabetes mellitus, hypertension, history of PE previously on anticoagulation, right lung cavitary lesion was seen at [facility] on 04/15/2023 with a complaint of shortness of breath for few weeks and chest pain. Patient was found to have initial troponin I of 0.045. In addition, his BNP was thousand 54 pg/mL. Initial EKG showed normal sinus rhythm with right bundle branch block. He was deemed to have NSTEMI. Subsequently, he underwent coronary angiogram via right femoral approach and was found to have multivessel CAD including severe proximal LAD stenosis, severe ostial to proximal circumflex stenosis and a dominant vessel, and nondominant RCA. LVEDP was 13 mmHg. During hospital stay, he was also diagnosed with left diabetic foot infection. Subsequently MRI of the foot showed osteomyelitis of the left fifth toe. Patient was started on IV antibiotics. Cultures grew Pseudomonas aeruginosa and Staph aureus. In addition, patient was deemed to have UTI. Patient was transferred to [facility] for further work-up including possible evaluation for CABG versus high risk PCI. Patient seen this afternoon. Denies any chest pain or shortness of breath at this point. Overall, poor historian. Not able to tell what medications he takes at home. EKG done today 2023 showed normal sinus rhythm with right bundle branch block. Echocardiogram done today showed normal EF, no wall motion normalities, no significant valvular abnormalities. History - Adult longitudinal Past medical history: Reports: Diabetes mellitus, Hypertension. Past surgical history: Reports: Knee procedure. Allergies: Coded Allergies: No Known Allergies (04/20/23) Review of Systems Constitutional: Denies: chills, fatigue, fever, generalized weakness, lethargy. Cardiovascular: Denies: chest pain, dyspnea on exertion, edema, orthopnea, palpitations, parox noctural dyspnea. Objective General VS/I O: Vital Signs: Date Time Temp Pulse Resp B/P B/P Pulse O2 O2 Flow FiO2 Mean Ox Delivery Rate 04/20 1144 98.2 68 18 119/75 89.9 98 Room air 04/20 0759 98.2 67 18 109/71 83.7 96 Room air 04/20 0429 98.2 67 16 123/79 94.0 98 04/19 2255 98.8 74 16 146/83 103.7 99 Room air 04/19 2017 98.1 75 16 134/82 99.0 100 Room air 24 hour I O ending at 0700: 04/20 0700 04/19 1900 Intake Total Output Total 900 Balance -900 Output, Urine 900 PATIENT WEIGHT: Weight (lb): 235 Weight (oz): 0.2 Weight (kg): 106.600 Results Findings/Data: Laboratory Tests 04/20 04/20 04/20 04/20 04/20 1142 1055 1055 0757 0318 Chemistry Sodium (134 - 147 mEq/L) 136 137 Potassium (3.4 - 5.0 mEq/L) 4.4 4.2 Chloride (100 - 108 mEq/L) 106 106 Carbon Dioxide (21 - 33 mEq/l) 22 22 Anion Gap (0 - 20) 13 14 BUN (7 - 25 mg/dL) 17 19 Creatinine (0.6 - 1.3 mg/dL) 1.0 1.1 Glomerular Filtr Rate (90 - 95) 87.8 L 78.3 L Glucose (77 - 141 mg/dL) 203 H 156 H POC Glucose (70 - 110 MG/DL) 207 H 127 H Hemoglobin A1c (4.8 - 6.0 %A1C) 8.3 H Calcium (8.0 - 10.5 mg/dL) 9.1 8.7 Total Bilirubin (0.0 - 1.0 mg/dL) 0.20 AST (8 - 34 IUnit/L) 62 H ALT (10 - 49 IUnit/L) 80 H Total Alk Phosphatase (20 - 125 IUnit/L) 101 Total Protein (6.4 - 8.2 g/dL) 7.3 Albumin (3.4 - 5.0 g/dL) 3.40 Triglycerides (40 - 150 mg/dL) 160 H Cholesterol (<200 mg/dL) 145 LDL Cholesterol Measurd (0 - 100 mg/dL) 92.0 HDL Cholesterol (40 - 60 MG/DL) 21.2 L Cholesterol/HDL Ratio (3.43 - 4.97 RATIO) 6.84 H 04/20 Chemistry POC Glucose (70 - 110 MG/DL) 123 H B-Natriuretic Peptide (0 - 100 PG/ML) 159.0 H Laboratory Tests 04/20 1055 Coagulation INR (0.8 - 1.2) 1.4 H PTT (Jalen) (25.0 - 39.5 Seconds) 35.6 PT Patient/Control Mix (9.3 - 12.9 SECONDS) 15.5 H Laboratory Tests 04/20 0318 Hematology WBC (4.5 - 11.0 x10 3/uL) 6.6 RBC (4.00 - 5.60 x10 6/uL) 3.91 L Hgb (12.5 - 16.9 g/dL) 11.9 L Hct (37.5 - 50.7 %) 35.4 L MCV (81.0 - 99.0 fL) 90.5 MCH (27.0 - 33.0 pg) 30.4 MCHC (33.0 - 37.0 g/dL) 33.6 RDW (11.5 - 14.5 %) 12.4 Plt Count (150 - 400 x10 3/uL) 289 MPV (7.0 - 9.0 fL) 10.4 H Neut % (Auto) (56.0 - 77.0 %) 61.7 Lymph % (Auto) (14.0 - 32.0 %) 25.9 [place] % (Auto) (4.8 - 9.0 %) 9.7 H Eos % (Auto) (0.3 - 3.7 %) 1.8 Baso % (Auto) (0.0 - 2.0 %) 0.6 Neut # (Auto) (2.0 - 7.6 x10 3/uL) 4.06 Lymph # (Auto) (1.0 - 3.8 x10 3/uL) 1.71 [place] # (Auto) (0.1 - 0.8 x10 3/uL) 0.64 Eos # (Auto) (0.0 - 0.2 x10 3/uL) 0.12 Baso # (Auto) (0.0 - 0.2 x10 3/uL) 0.04 Abs Immat Gran (auto) (0.00 - 0.03 x10 3/uL) 0.02 Immature Gran % (0.0 - 2.0 %) 0.3 Nucleated RBC % (0 - 0 %) 0.0 Nucleated RBCs # (Man) (0.0 - 0.1 x10 3/uL) 0.00 Laboratory Tests 04/20 0315 Chemistry B-Natriuretic Peptide (0 - 100 PG/ML) 159.0 H Radiology Data: Recent Impressions: ULTRASOUND - DUP EXTRACRANIAL ANALI 04/20 1010 Report Impression - Status: SIGNED Entered: 2023 1022 IMPRESSION: Mild stenosis in bilateral internal carotid arteries (less than 50%). Impression By: [email or web address] Janiya Christina M.D. RADIOLOGY - XR CHEST 1 V 04/20 1048 Report Impression - Status: SIGNED Entered: 2023 1054 IMPRESSION: Right PICC in place. No acute cardiopulmonary disease. Impression By: Yosi Christina M.D. ULTRASOUND - US EXTREM NON VASC COMP 04/20 1048 Report Impression - Status: SIGNED Entered: 2023 1220 IMPRESSION: Vein measurements as above without evidence of intraluminal thrombus. Impression By: Yosi Christina M.D. CAT SCAN - CT CHEST W/O CONTRAST 04/20 1328 Report Impression - Status: SIGNED Entered: 2023 1340 IMPRESSION: No cardiomegaly or pericardial effusion seen. Aorta does not appear aneurysmal. Please refer to the findings section for additional details. Impression By: [email or web address] Janiya Montgomery M.D. Free Text Obj Notes Free Text Obj Notes: GENERAL: Well developed, in no distress HEENT: Normocephalic, atraumatic NECK: JVP not raised LUNGS: Equal air entry bilaterally, normal vesicular breathing HEART: regular rate, normal S1 and S2, No murmurs, ABDOMEN: Soft, lax, non-tender, non-distended PERIPHERAL PULSES: 1+ dorsalis pedis pulses, left foot covered with dressing EXTREMITIES: No edema Diagnosis, Assessment Plan Free Text DxA P Notes Free Text DxA P Notes: #NSTEMI #Severe multivessel CAD #Left foot diabetic foot infection with osteomyelitis #Urinary tract infection #Hyperlipidemia #Diabetes mellitus-A1c 8.3 #Essential hypertension #Right lung cavitary lesion PLAN: -CABG work-up per CT surgery versus high risk PCI. -We will get arterial Doppler bilateral lower extremities to evaluate for PAD given left diabetic foot infection. -IV antibiotics per ID -Continue aspirin 81 mg daily. Increase atorvastatin from 40 mg to 80 mg nightly. Start metoprolol tartrate 12.5 mg twice daily. -Continue lisinopril 10 mg daily. - at 1441 at 1013 RPT #:[id number] END OF REPORT [facility] 2023 10:42:00 [id number] [address] PATIENT NAME: JONG RIVAS ADMIT DATE: 04/19/23 ACCOUNT NO: [id number] ROOM NO: [facility] AGE: 58 REPORT TYPE: eELECTROCARDIOGRAM REPORT SEX: M ADMITTING PHYSICIAN:Domenic Rainey MD ATTENDING PHYSICIAN:Domenic Rainey MD Order: [id number] Test Reason : PREOP Test Date/Time Stamp: TueApr 20 2023 10:42:54 Blood Pressure : / mmHG Vent. Rate : 070 BPM Atrial Rate : 070 BPM P-R Int : 176 ms QRS Dur : 130 ms QT Int : 424 ms P-R-T Axes : 049 -26 024 degrees QTc Int : 457 ms Normal sinus rhythm Right bundle branch block Abnormal ECG When compared with ECG of 19-APR-2023 22:36, Significant changes have occurred Confirmed by ESTELA GARCIA MD ([id number]) on 2023 11:26:23 AM Referred By: Domenic Rainey Confirmed by:ESTELA GARCIA MD at 1126 PATIENT NAME: JONG RIVAS [facility] 2023 10:16:00 [facility] ([facility]) History Physical - Adult REPORT#:[id number] REPORT STATUS: Signed REPORT INITIALIZATION DATE:04/20/23 TIME: 1016 PATIENT: JONG RIVAS UNIT #: [id number] ROOM/BED: [place] [address] : [birth year] AGE: 58 SEX: M ATTEND: Domenic Rainey MD ADM AUTHOR: Mirian Robin COPPER PLATER REPT SERVICE DT/TIME: 04/20/23 1016 * ALL edits or amendments must be made on the electronic/computer document * Mirian Robin 04/20/23 1016: History of Present Illness HPI Chief complaint: CABG Eval HPI: 57-year-old male, poor historian, PMHx diabetes on metformin, neuropathy, HTN, former smoker, PE chronic nonhealing left foot ulcer at the fifth metatarsal located posterior lateral, with no known prior cardiovascular disease. Patient transferred from [facility], referred to us from Dr. Forde for acute coronary syndrome, unstable angina, ischemic heart disease status post coronary angiogram, with findings of multivessel CAD, EF 50%. Upon further chart review patient found to have chronic cavitary lung lesion on CT chest pending QuantiFERON, left lower extremity diabetic foot ulcer concerning for osteomyelitis MRI done at [place] and will upload imaging, UTI with urine culture Pseudomonas treated with cefepime. Patient reports dyspnea on exertion and mild chest pain x1 year. History Past medical history: Reports: Diabetes mellitus, Hypertension. Past surgical history: Reports: Knee procedure. Family history: Reports: Diabetes, Heart disease. Alcohol use: Alcohol use (1-7 drinks per week) Drug use: Denies recreational drugs Smoking status for patients 13 years old or older: Never Smoker Medication/Allergy-Vaccine Hx Allergies: Coded Allergies: No Known Allergies (04/20/23) Review of Systems Constitutional: Reports: fatigue. Eyes: Denies: redness, discharge, visual loss/blurred. ENT: Denies: sore throat, throat pain, throat swelling, toothache. Respiratory: Reports: pneumonia, SOB. Cardiovascular: Reports: MENDES (dyspnea on exertion). Denies: chest pain. GI: Denies: abdominal pain, nausea, vomiting. : Denies: dysuria, flank pain. Musculoskeletal: Arthritis: Denies: bilateral. Extremity swelling: Denies: bilateral. Endocrine: Denies: weight gain, weight loss. Neuro: Denies: confusion, dizziness, focal weakness, gait problem, syncope, vision change, weakness. Psych: Denies: agitation, anxiety, auditory hallucination, visual hallucination. All systems rev neg: except as marked Physical Exam VS/I O Vital Signs: Date Time Temp Pulse Resp B/P B/P Pulse O2 O2 Flow FiO2 Mean Ox Delivery Rate 04/20 759 98.2 67 18 109/71 83.7 96 Room air 04/20 429 98.2 67 16 123/79 94.0 98 04/195 98.8 74 16 146/83 103.7 99 Room air 04/19 2017 98.1 75 16 134/82 99.0 100 Room air 24 hour I O ending at 0700: 04/20 0700 04/19 1900 Intake Total Output Total 900 Balance -900 Output, Urine 900 PATIENT WEIGHT: Weight (lb): Weight (oz): Weight (kg): General appearance: alert, awake, oriented, no acute distress Head/Eyes: atraumatic, clear cornea ENT: moist mucosal membranes, normal nose Neck: full range of motion, non-tender Cardiovascular: normal capillary refill, regular rate rhythm, normal heart sounds Respiratory: clear to auscultation, no distress, no tenderness, aerating well, symmetric expansion Abdomen/GI: soft, no distention, no CVA tenderness Genitourinary: no bladder distension, no flank pain Extremities: moves all, no edema-all extremities, normal capillary refill, normal range of motion Musculoskeletal: full range of motion, normal inspection 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, oriented X 3 Psychiatry: no hallucinations, normal affect, normal judgment/insight, normal mood Results Findings/Data: Laboratory Tests: 04/20 04/20 04/20 04/19 0757 0318 5 2022 Chemistry Sodium (134 - 147 mEq/L) 137 Potassium (3.4 - 5.0 mEq/L) 4.2 Chloride (100 - 108 mEq/L) 106 Carbon Dioxide (21 - 33 mEq/l) 22 Anion Gap (0 - 20) 14 BUN (7 - 25 mg/dL) 19 Creatinine (0.6 - 1.3 mg/dL) 1.1 Glomerular Filtr Rate (90 - 95) 78.3 L Glucose (77 - 141 mg/dL) 156 H POC Glucose (70 - 110 MG/DL) 127 H 123 H Calcium (8.0 - 10.5 mg/dL) 8.7 B-Natriuretic Peptide (0 - 100 PG/ML) 159.0 H Hematology WBC (4.5 - 11.0 x10 3/uL) 6.6 RBC (4.00 - 5.60 x10 6/uL) 3.91 L Hgb (12.5 - 16.9 g/dL) 11.9 L Hct (37.5 - 50.7 %) 35.4 L MCV (81.0 - 99.0 fL) 90.5 MCH (27.0 - 33.0 pg) 30.4 MCHC (33.0 - 37.0 g/dL) 33.6 RDW (11.5 - 14.5 %) 12.4 Plt Count (150 - 400 x10 3/uL) 289 MPV (7.0 - 9.0 fL) 10.4 H Neut % (Auto) (56.0 - 77.0 %) 61.7 Lymph % (Auto) (14.0 - 32.0 %) 25.9 [place] % (Auto) (4.8 - 9.0 %) 9.7 H Eos % (Auto) (0.3 - 3.7 %) 1.8 Baso % (Auto) (0.0 - 2.0 %) 0.6 Neut # (Auto) (2.0 - 7.6 x10 3/uL) 4.06 Lymph # (Auto) (1.0 - 3.8 x10 3/uL) 1.71 [place] # (Auto) (0.1 - 0.8 x10 3/uL) 0.64 Eos # (Auto) (0.0 - 0.2 x10 3/uL) 0.12 Baso # (Auto) (0.0 - 0.2 x10 3/uL) 0.04 Abs Immat Gran (auto) (0.00 - 0.03 0.02 x10 3/uL) Immature Gran % (0.0 - 2.0 %) 0.3 Nucleated RBC % (0 - 0 %) 0.0 Nucleated RBCs # (Man) (0.0 - 0.1 x10 3/uL) 0.00 Radiology data: Recent Impressions: ULTRASOUND - DUP EXTRACRANIAL ANALI 04/20 1010 Report Impression - Status: SIGNED Entered: 2023 1022 IMPRESSION: Mild stenosis in bilateral internal carotid arteries (less than 50%). Impression By: Yosi Christina M.D. RADIOLOGY - XR CHEST 1 V 04/20 1048 Report Impression - Status: SIGNED Entered: 2023 1054 IMPRESSION: Right PICC in place. No acute cardiopulmonary disease. Impression By: Yosi Christina M.D. ULTRASOUND - US EXTREM NON VASC COMP 04/20 1048 Report Impression - Status: SIGNED Entered: 2023 1220 IMPRESSION: Vein measurements as above without evidence of intraluminal thrombus. Impression By: Yosi Christina M.D. CAT SCAN - CT CHEST W/O CONTRAST 04/20 1328 Report Impression - Status: SIGNED Entered: 2023 1340 IMPRESSION: No cardiomegaly or pericardial effusion seen. Aorta does not appear aneurysmal. Please refer to the findings section for additional details. Impression By: [email or web address] Janiya Montgomery M.D. Diagnosis, Assessment Plan Orders: Procedure Date/time Status CULTURE BLOOD 04/21 1320 Active Podiatry Physician Consult 04/21 1023 Active PHYSICAL THERAPIST CONSULT 04/21 1002 Active Occupational Therapist Consult 04/21 1002 Active Infectious Disease Physician 04/21 0607 Active Educate/Teach Patient 04/21 526 Active Notify MD: Hypoglycemia 04/21 526 Active Hypoglycemia Orders 04/21 526 Active Educate/Teach Hypoglycemia 04/21 526 Active Endocrinology Physician Cons. 04/21 05 Active MAGNESIUM 04/21 0500 Complete Consultants: cardiology, cardiovascular surgery, pulmonary Plan discussed with: patient, collaborating MD, nurse Free Text DxA P Notes Free Text DxA P Notes: 57-year-old male, poor historian, PMHx diabetes on metformin, neuropathy, HTN, former smoker, PE chronic nonhealing left foot ulcer at the fifth metatarsal located posterior lateral, with no known prior cardiovascular disease. Patient transferred from [facility], referred to us from Dr. Forde for acute coronary syndrome, unstable angina, ischemic heart disease status post coronary angiogram, with findings of multivessel CAD, EF 50%. Upon further chart review patient found to have chronic cavitary lung lesion on CT chest pending QuantiFERON, left lower extremity diabetic foot ulcer concerning for osteomyelitis MRI done at [place] and will upload imaging, foot wound culture with pseudomonas, UTI with urine culture Pseudomonas treated with cefepime. Patient reports dyspnea on exertion and mild chest pain x1 year. 04/18/23: Coronary angiogram done at [facility] Left main patent LAD with high-grade and tortuous calcified lesion just after the first diagonal estimated 95% stenosis first diagonal branch with severe calcified disease 99% Ramus 90 to 95% stenosis, left circumflex artery 99% proximal stenosis OM branches severe disease as well. RCA 90%. LVEDP 11 mmHg and angiography demonstrated preserved LV systolic function, EF 50%. Inferior wall demonstrated mild hypokinesis. 1-2+ MR on LV angio. RICHARDS patent Carotid angiogram, patent carotids Assessment: CAD, severe multivessel Left foot nonhealing foot ulcer Chronic cavitary lesion noted on CT chest UTI Pseudomonas Patient seen and evaluated by Dr. Rainey CABG eval underway -Consult pulmonology, cardiology, wound care -Lovenox DVT prophylaxis Continue supportive care Further recommendations to follow Domenic Rainey 04/27/23 0531: Attestations Physician Attestation Agree w/findings plan: I have seen and examined Mr Rivas. I agree with the findings and plan as documented by ALEXANDRU Bowie. at 1351 at 0534 RPT #:[id number] END OF REPORT [facility] 2023-04-19 22:36:00 [id number] [place] [id number] PATIENT NAME: JONG RIVAS ADMIT DATE: 04/19/23 ACCOUNT NO: [id number] ROOM NO: [facility] AGE: 58 REPORT TYPE: eELECTROCARDIOGRAM REPORT SEX: M ADMITTING PHYSICIAN:Domenic Rainey MD ATTENDING PHYSICIAN:Domenic Rainey MD Order: [id number] Test Reason : cad Test Date/Time Stamp: TueApr 19 2023 22:36:09 Blood Pressure : / mmHG Vent. Rate : 074 BPM Atrial Rate : 074 BPM P-R Int : 176 ms QRS Dur : 132 ms QT Int : 410 ms P-R-T Axes : 062 -35 018 degrees QTc Int : 455 ms Normal sinus rhythm Left axis deviation Nonspecific intraventricular block Abnormal ECG When compared with ECG of 28-MAR-2017 19:37, Significant changes have occurred Confirmed by ESTELA GARCIA MD ([id number]) on 2023 11:26:38 AM Referred By: Domenic Rainey Confirmed by:ESTELA GARCIA MD at 1126 PATIENT NAME: JONG RIVAS [facility] 2023-01-20 17:41:01 Formatting of this n ote might be different from the original. Pt given printed and verbal discharge instructions regarding Hyperglycemia, encouraged hydration, NO Prescriptions provided Discussed ibuprofen and to take with food to avoid GI distress. Pt verbalized understanding of instructions, pt awake alert oriented, resp reg unlabored, skin w/d, color appropriate for race, moves all ext well,pt encouraged to follow up with pcp Advised to seek medical attention for new/prolonged/worsening of symptoms, No adverse reaction to meds given in ER noted upon discharge PIV d'cd, dressing to site, catheter in tact. Awake, alert oriented, resp reg unlabored, skin w/d, pt leaving amb with steady gait, in no apparent distress, Antonia Restrepo RN [facility] 2023-01-20 15:31:18 Formatting of this n ote might be different from the original. Pt arrived ambulatory with complaints of "feeling like shit." Pt reports his blood sugar has been running high in the 300-400s. Pt takes metformin and gliperide. Pt reports increased tiredness thirst and urination. Leah Breen RN [facility]
[2024-10-07] MEDS ORDERED: HYDROCODONE/APAP 7.5/325 MG TAB ONE (18:08)
--- NOTE | 2024-10-07 18:48 | RAD REPORT ---
EXAM: CT brain without contrast HISTORY: Headache status post trauma COMPARISON: None TECHNIQUE: Multiple contiguous axial images were obtained and a CT of the brain without contrast.. Sagittal and coronal reconstruction performed. Automated exposure control, adjustment of the mA and/or kV according to patient size, and/or iterative reconstruction. Unless otherwise specified, incidental f indings do not require dedicated imaging follow-up FINDINGS: An intracranial bleed is not seen Ventricles are normal caliber No extra-axial fluid collection noted No significant hypodensity within the brain No fluid within the visualized sinuses or mastoids noted. IMPRESSION: No acute intracranial abnormality noted. If the patient continues to have symptoms to suggest an acute intracranial abnormality then MRI of th e brain would be recommended.
--- NOTE | 2024-10-07 18:48 | RAD REPORT ---
EXAMINATION: CT MAXILLOFACIAL WITHOUT CONTRAST CLINICAL INDICATION: Facial pain status post trauma TECHNIQUE: Axial images were obtained through the facial bones and orbits without intravenous contras t. Sagittal and coronal reconstructions were created from the data. One or more of the following dose reduction techniques were used: Automated exposure control, adjustment of the mA and/or kV accor ding to patient size, and/or iterative reconstruction. Unless otherwise specified, incidental findings do not require dedicated imaging follow-up. COMPARISON: No prior exam. FINDINGS: Blowout fracture medial wall right orbit. Edema is not visualized within the adjacent fat. No fluid w ithin the sinuses seen. No additional fracture visualized. The right globe is normal size and density. No TMJ dislocation. IMPRESSION: Blowout fracture medial wall right orbit has more of the appearance of being chronic than acute and s hould be correlated clinically.
--- NOTE | 2024-10-07 19:10 | EDPHYS ---
Physician Documentation [facility] Name: Boyd Jones Age: 59 yrs Sex: Male : 1965 Arrival Date: 10/07/2024 Time: 17:25 Bed Treatment Private MD: Gonzalo Ronquillo HPI: 10/07 18:05 This 59 yrs old Male presents to ER via Ambulatory with complaints of Eye Injury. cp 18:05 The patient is experiencing blurred vision, decreased vision, pain, The patient cp sustained contusion, to the right eye. Onset: The symptoms/episode began/occurred 2 day(s) ago. 18:05 Patient does not utilize any form of vision correction. Patient reports he was working cp underneath car when a wrench socket fell and struck right lateral corner of eye 2 days ago, Tuesday night. Immediate blurry and decreased vision that has worsened. Historical: - Allergies: 17:42 No Known Allergies; hb - PMHx: 17:42 Diabetes - NIDDM; Gout; Hypertensive disorder; hb - PSHx: 17:42 triple bypass; r knee SX; hb - Immunization history:: Adult Immunizations up to date. - Infectious Disease History:: Denies. - Social history:: Smoking status: Patient denies any tobacco usage or history of. ROS: 18:10 Constitutional: Negative for body aches, chills, fever, poor PO intake, cp 18:10 ENT: Negative for injury, pain, and discharge, cp 18:10 Eyes: Positive for pain, vision loss, visual disturbance, of the right eye, Negative for discharge, pain, 18:10 Neck: Negative for pain with movement, pain at rest, stiffness, 18:10 Cardiovascular: Negative for chest pain, edema, palpitations, 18:10 Respiratory: Negative for cough, shortness of breath, wheezing, 18:10 Abdomen/GI: Negative for abdominal pain, vomiting, diarrhea, constipation, 18:10 Neuro: Negative for altered mental status, dizziness, headache, numbness, syncope, weakness, 18:10 All other systems are negative, Exam: 18:15 Constitutional: The patient appears in no acute distress, alert, awake, cp non-diaphoretic, non-toxic, well developed, well nourished, uncomfortable, 18:15 Head/face: Noted is tenderness, that is moderate, of the right lateral orbital area, cp small abrasion noted right lateral orbital area. 18:15 Eyes: Pupils: pinpoint, bilaterally, Extraocular movements: intact throughout, Conjunctiva: normal, no exudate, no injection, no subconjunctival hemorrhage Corneas: are normal, Anterior chamber: hyphema noted, absent bilaterally, Lids and lashes: appear normal, bilaterally, 18:15 ENT: External ear(s): are unremarkable, Nose: is normal, Mouth: Lips: moist, Oral mucosa: pink and intact, moist, Posterior pharynx: Airway: no evidence of obstruction, patent, 18:15 Neck: C-spine: vertebral tenderness, is not appreciated, crepitus, is not appreciated, 18:15 Chest/axilla: Inspection: normal, 18:15 Cardiovascular: Rate: normal, Rhythm: regular, 18:15 Respiratory: the patient does not display signs of respiratory distress, Respirations: normal, no use of accessory muscles, no retractions, labored breathing, is not present, Breath sounds: are clear throughout, no decreased breath sounds, no stridor, no wheezing, 18:15 Abdomen/GI: Inspection: obese Palpation: abdomen is soft and non-tender, in all quadrants, 18:15 Skin: cellulitis, is not appreciated, no rash present. 18:15 Neuro: Orientation: to person, place \T\ time. Mentation: is normal, Motor: no acute changes, Vital Signs: 18:21 BP 140 / 80; Pulse 78; Resp 16; Temp 97.1(O); Pulse Ox 100% on R/A; Pain 8/10; hb 20:09 BP 175 / 107; Pulse 82; Resp 16; Pulse Ox 95% on R/A; jb4 21:39 BP 133 / 85; Pulse 82; Resp 16; Pulse Ox 95% on R/A; jb4 18:21 Pain Scale: Adult hb Visual Acuity: 18:55 Left Eye Visual acuity 20/20, Pupil size 4 mm, Normal, Reactive To Accomodation; Right jb4 Eye Visual acuity 20/100, Pupil size 4 mm, Normal, Reactive To Accomodation; Both Eyes Visual acuity 20/25; Without Lenses; 18:56 Left Eye Visual acuity 20/20, ; Right Eye Visual acuity 20/100, ; Both Eyes Visual hb acuity 20/20; Without Lenses; AFTER TETRACAINE MDM: 18:00 Differential diagnosis: Corneal abrasion of Corneal ulcer of Foreign body in Acute cp glaucoma in right eye. globe rupture, hyphema, retinal detachment. 19:10 Medical Screening Exam initiated 19:10 Data reviewed: vital signs, nurses notes, radiologic studies, CT scan, I have discussed the patient's presentation/case with the attending Emergency Department Physician; and as a result, I will transfer patient. 19:10 I considered the following discharge prescriptions or medication management in the emergency department Medications were administered in the Emergency Department. See MAR. Care significantly affected by the following chronic conditions: Diabetes, Hypertension. Counseling: I had a detailed discussion with the patient and/or guardian regarding the historical points, exam findings, and any diagnostic results supporting the discharge/admit diagnosis, the need to transfer to another facility, [facility] does not immediately have the required specialist. 10/07 21:21 Order name: Glucose, Ancillary Testing; Complete Time: 21:25 EDMS 10/07 21:25 Interpretation: Reviewed. 10/07 17:59 Order name: CT Facial Bones W/O Con; Complete Time: 18:49 10/07 18:51 Interpretation: Report reviewed. 10/07 17:59 Order name: CT Head Brain wo Cont; Complete Time: 18:49 10/07 20:01 Interpretation: Report reviewed. 10/07 17:59 Order name: Visual Acuity; Complete Time: 18:53 10/07 20:41 Order name: Accucheck Blood Glucose; Complete Time: 21:22 Administered Medications: 18:18 Drug: Hydrocodone-Acetaminophen PO (7.5 mg-325 mg) 1 tabs PO once; RASS on ADMIN: hb Combtv4, Very Agttd3, Agttd2, Rstlss1, AlertClm0, Drwsy-1, Lt Sdtn-2, Mod Sdtn-3, Dp Sdtn-4, UnArsble-5 Route: PO; 19:00 Follow up: Response: No adverse reaction; Marked relief of symptoms; Pain is decreased; jb4 RASS: Alert and Calm (0) 21:43 Drug: HYDROcodone-acetaminophen PO 10 mg-325 mg 1 tabs PO once Route: PO; jb4 Disposition: 10/08 19:36 Chart complete. cp Disposition Summary: 10/07/24 19:10 Transfer Ordered Notes: Transfer Location: [facility] cp Reason: Higher level of care cp Condition: Stable cp Problem: new cp Symptoms: have improved cp Accepting Physician: doctor(10/07/24 22:57) jb4 Diagnosis - Other visual disturbances cp - Blowout Fracture Medial Wall Right Orbit cp Forms: - Medication Reconciliation Form cp - SBAR form cp Addendum: 10/09/2024 14:47 Co-signature as Attending Physician, Gonzalo Jones MD I agree with the assessment and c mcclure plan of care. Signatures: Dispatcher [employer] EDMS Gonzalo Jones MD MD cha Page, Corey, PA PA Zarina Epperson RN RN Mayco Vazquez RN RN jb4 Corrections: (The following items were deleted from the chart) 10/07 20:04 19:10 doctor cp cp 22:57 20:04 doctor cp jb4 10/08 19:35 10/07 18:00 Differential diagnosis: Corneal abrasion of Corneal ulcer of Foreign body cp in globe rupture, hyphema, retinal detachment cp
--- NOTE | 2024-10-07 19:10 | ER ---
Nurse's Notes [facility] Name: Boyd Jones Age: 59 yrs Sex: Male : 1965 Arrival Date: 10/07/2024 Time: 17:25 Bed Treatment Private MD: Diagnosis: Other visual disturbances;Blowout Fracture Medial Wall Right Orbit Presentation: 10/07 17:39 Chief complaint: Dropped socket onto right eye 2 days ago, c/o worsening eye pain and hb burred vision. Coronavirus screen: At this time, the client does not indicate any symptoms associated with coronavirus-19. Ebola Screen: No symptoms or risks identified at this time. Initial Sepsis Screen: Does the patient meet any 2 criteria? No. Patient's initial sepsis screen is negative. Does the patient have a suspected source of infection? No. Patient's initial sepsis screen is negative. Risk Assessment: Do you want to hurt yourself or someone else? Patient reports no desire to harm self or others. Onset of symptoms was October 05, 2024. 17:39 Method Of Arrival: Ambulatory hb 17:39 Acuity: LARISSA 2 hb Triage Assessment: 17:40 General: Appears in no apparent distress. uncomfortable, Behavior is calm, cooperative. hb Pain: Pain currently is 8 out of 10 on a pain scale. EENT: Reports left eye pain and blurred vison. Neuro: GCS 15. Historical: - Allergies: 17:42 No Known Allergies; hb - PMHx: 17:42 Diabetes - NIDDM; Gout; Hypertensive disorder; hb - PSHx: 17:42 triple bypass; r knee SX; hb - Immunization history:: Adult Immunizations up to date. - Infectious Disease History:: Denies. - Social history:: Smoking status: Patient denies any tobacco usage or history of. Screenin:58 [facility] ED Fall Risk Assessment (Adult) History of falling in the last 3 months, jb4 including since admission No falls in past 3 months (0 pts) Confusion or Disorientation No (0 pts) Intoxicated or Sedated No (0 pts) Impaired Gait No (0 pts) Mobility Assist Device Used No (0 pt) Altered Elimination No (0 pt) Score/Fall Risk Level 0 - 2 = Low Risk Oriented to surroundings, Maintained a safe environment. Abuse screen: Denies threats or abuse. Nutritional screening: No deficits noted. Tuberculosis screening: No symptoms or risk factors identified. Assessment: 17:45 General: Appears in no apparent distress. uncomfortable, Behavior is calm, cooperative, jb4 appropriate for age. Pain: Complains of pain in right eye Pain does not radiate. Pain currently is 8 out of 10 on a pain scale. Neuro: Level of Consciousness is awake, alert, obeys commands, Oriented to person, place, time, situation, Reports blurred vision in right eye since 2 days ago and worsened today. Cardiovascular: Patient's skin is warm and dry. Respiratory: Airway is patent Respiratory effort is even, unlabored, Respiratory pattern is regular, symmetrical. GI: No signs and/or symptoms were reported involving the gastrointestinal system. : No signs and/or symptoms were reported regarding the genitourinary system. EENT: Sclera/Cornea are reddened in outer aspect of conjuctiva of right eye and iris of right eye. Derm: Skin is intact, Skin is pink, warm \T\ dry. 17:45 Musculoskeletal: Circulation, motion, and sensation intact. Range of motion: intact in jb4 all extremities. 18:22 Reassessment: Patient appears in no apparent distress at this time. Patient and/or hb family updated on plan of care and expected duration. Pain level reassessed. Patient is alert, oriented x 3, equal unlabored respirations, skin warm/dry/pink. 20:09 Reassessment: Patient appears in no apparent distress at this time. Patient and/or jb4 family updated on plan of care and expected duration. Pain level reassessed. Patient is alert, oriented x 3, equal unlabored respirations, skin warm/dry/pink. 21:39 Reassessment: Patient appears in no apparent distress at this time. Patient and/or jb4 family updated on plan of care and expected duration. Pain level reassessed. Patient is alert, oriented x 3, equal unlabored respirations, skin warm/dry/pink. 21:48 Reassessment: attempted to call report twice, no answer. jb4 22:55 Reassessment: Patient appears in no apparent distress at this time. Patient and/or jb4 family updated on plan of care and expected duration. Pain level reassessed. Patient is alert, oriented x 3, equal unlabored respirations, skin warm/dry/pink. Vital Signs: 18:21 BP 140 / 80; Pulse 78; Resp 16; Temp 97.1(O); Pulse Ox 100% on R/A; Pain 8/10; hb 20:09 BP 175 / 107; Pulse 82; Resp 16; Pulse Ox 95% on R/A; jb4 21:39 BP 133 / 85; Pulse 82; Resp 16; Pulse Ox 95% on R/A; jb4 18:21 Pain Scale: Adult hb Visual Acuity: 18:55 Left Eye Visual acuity 20/20, Pupil size 4 mm, Normal, Reactive To Accomodation; Right jb4 Eye Visual acuity 20/100, Pupil size 4 mm, Normal, Reactive To Accomodation; Both Eyes Visual acuity 20/25; Without Lenses; 18:56 Left Eye Visual acuity 20/20, ; Right Eye Visual acuity 20/100, ; Both Eyes Visual hb acuity 20/20; Without Lenses; AFTER TETRACAINE ED Course: 17:30 Patient arrived in ED. sj2 17:42 Triage completed. hb 17:42 Arm band placed on. hb 17:50 Gonzalo Mark PA is PHCP. cp 17:50 Gonzalo Jones MD is Attending Physician. cp 18:15 CT Facial Bones W/O Con In Process Unspecified. EDMS 18:15 CT Head Brain wo Cont In Process Unspecified. EDMS 18:55 Mayco Vazquez, RN is Primary Nurse. jb4 19:52 initiated transfer with [facility] spoke with andrea. vk 22:55 Patient has correct armband on for positive identification. Bed in low position. Call jb4 light in reach. Side rails up X 1. Provided Education on: plan of care. 22:55 No provider procedures requiring assistance completed. Patient did not have IV access jb4 during this emergency room visit. Administered Medications: 18:18 Drug: Hydrocodone-Acetaminophen PO (7.5 mg-325 mg) 1 tabs PO once; RASS on ADMIN: hb Combtv4, Very Agttd3, Agttd2, Rstlss1, AlertClm0, Drwsy-1, Lt Sdtn-2, Mod Sdtn-3, Dp Sdtn-4, UnArsble-5 Route: PO; 19:00 Follow up: Response: No adverse reaction; Marked relief of symptoms; Pain is decreased; jb4 RASS: Alert and Calm (0) 21:43 Drug: HYDROcodone-acetaminophen PO 10 mg-325 mg 1 tabs PO once Route: PO; jb4 Medication: 22:55 VIS not applicable for this client. jb4 Outcome: 19:10 ER care complete, transfer ordered by . ashley 22:55 Transferred by ground EMS to [facility], Transfer form jb4 completed. X-rays sent w/ patient. 22:55 Condition: stable 22:55 Discharge instructions given to patient, Instructed on the need for transfer, Demonstrated understanding of instructions, 22:57 Patient left the ED. jb4 Signatures: Dispatcher [employer] EDMS Gonzalo Mark PA PA cp Baxter, Heather RN RN Mayco Vazquez RN RN jb4 Janel Green Sonceria sj2
[2024-10-07] MEDS ORDERED: HYDROCODONE/APAP 10/325 TAB ONE (21:36)
[2024-10-07 23:01] VITALS: TEMP 97.1
[2024-10-07 23:03] VITALS: O2SAT 95
[2024-10-07 23:05] VITALS: BP 133/85
== END 2024-10-07 22:57 | disposition short-term general hospital (02) ==
LOC: ER 17:25
DX: S02.31XA Fracture of orbital floor, right side, initial encounter for closed fracture (principal); W22.8XXA Striking against or struck by other objects, initial encounter
CPT/HCPCS: 70450; 70486; 76377; 82947; 99285

== ENCOUNTER 2025-01-23 14:59 | Emergency (ER) | payer OTHER ==
--- OUTSIDE RECORDS SUMMARY | 2025-01-23 15:14 | XMS REPORT | Continuity of Care Document ---
Author Name Unknown Address [address] [facility] [address] [place] [address] [facility] Address [address] [facility] [address] [place] [address] Care Team Providers Care Pre Wave Assembler Name Role Phone Ameya Quevedo Primary Care Physician [phone] TTAI GARCIA Attending Clinician Unavailable LUANA VELÁZQUEZ Attending Clinician Unavailable SERINA FRIAS Attending Clinician Unavailable Ameya Quevedo Attending Clinician Unavailable Segundo Sheffield MD Attending Clinician [phone] Doctor Unassigned, [place] Attending Clinician U Marcelino Jimenes MD Attending Clinician [phone] BETTYE FLOOD Attending Clinician Unavailable SOLE Attending Clinician Unavailable Domenic Rainey Attending Clinician UnavailGRACIE Cope Attending Clinician Unavailable Gracie Garcia Attending Clinician [phone] KAYLEIGH DAVIDSON Attending Clinician Unavailable GRAY CASAS Attending Clinician Unavail able SERINA FRIAS Admitting Clinician Unavailable BETTYE FLOOD Admitting Clinician Unavailable SOLE Admitting Clinician Unavailable Domenic Rainey Admitting Clinician UnavailGRAY Broussard Admitting Clinician Unavail able Payers Payer Name Policy Type Policy Number Effective Date Expirati on Date Source [facility] [employer] (O) [id number] 2022 00:00:00 [facility] [employer] [id number] 2023 00:00:00 Problems Condition Name Condition Details Condition Category Status Onset Date Resolution Date Last Treatment Date Treating Clinician Comments Source Hyperlipid emia Hyperlipid emia Problem Active 07-20 00:00: 00 [facility] Cellulitis of left foot Cellulitis of Left Foot Problem Active 06-29 00:00: 00 [facility] Cataract of right eye Cataract of Right Eye Problem Active 06-29 00:00: 00 [facility] Type 2 diabetes mellitus with diabetic polyneurop athy, without long-term current use of insulin Type 2 diabetes mellitus with diabetic polyneurop athy, without long-term current use of insulin Disease Active 10-30 00:00: 00 [facility] Constipati on, unspecifie d constipati on type Constipati on, unspecifie d constipati on type Disease Active 10-30 00:00: 00 [facility] Slow transit constipati on Slow transit constipati on Disease Active 10-30 00:00: 00 [facility] Gout Gout Disease Active 10-30 00:00: 00 [facility] Essential hypertensi on Essential hypertensi on Disease Active 10-30 00:00: 00 [facility] Type 2 diabetes mellitus with diabetic polyneurop athy, without long-term current use of insulin Type 2 diabetes mellitus with diabetic polyneurop athy, without long-term current use of insulin Disease Active 10-30 00:00: 00 [facility] History of coronary artery bypass grafting History of Coronary Artery Bypass Grafting Problem Active 2-27 00:00: 00 [facility] Coronary arterioscl erosis Coronary arterioscl erosis Disease Active 2022-06 00:00: 00 [facility] Hyperlipid emia Hyperlipid emia Disease Active 2022-06- 00:00: 00 [facility] Osteomyeli tis Osteomyeli tis Disease Active 2022-06- 00:00: 00 [facility] Type 2 diabetes mellitus with foot ulcer Type 2 diabetes mellitus with foot ulcer Disease Active 01-05 00:00: 00 [facility] Peripheral neuropathy Peripheral neuropathy Disease Active 01-05 00:00: 00 [facility] Type 2 diabetes mellitus with foot ulcer Type 2 diabetes mellitus with foot ulcer Disease Active 01-05 00:00: 00 [facility] Diabetes mellitus Diabetes Mellitus Problem Active 01-05 00:00: 00 [facility] Neuropathy Neuropathy Problem Active 01-05 00:00: 00 [facility] Hypertensi ve disorder Hypertensi ve Disorder Problem Active 01-05 00:00: 00 [facility] Dyspnea Dyspnea Disease Active 2016-06 00:00: 00 [facility] Chest pain Chest pain Disease Active 2016-06 00:00: 00 [facility] Allergies, Adverse Reactions, Alerts Allergy Name Allergy Type Status Severity Reaction(s) Onset Date Inactive Date Treating Clinician Comments Source No Known Allergie s DA Active U 2022-06 00:00: 00 [facility] No Known Allergie s DA Active U 2016-06 00:00: 00 [facility] NO KNOWN ALLERGIE S Drug Class Active [facility] Social History Social Habit Start Date Stop Date Quantity Comments Source Gender identity [facility] Sexual orientation [facility] History of Tobacco Use [facility] History of Social function 2023-10-13 00:00:00 2023-10-13 00:00:00 [facility] Sex assigned at 1965 00:00:00 1965 00:00:00 [facility] Smoking Status Start Date Stop Date Source Tobacco smoking consumption unknown [facility] Never Smoker [facility] Medications Ordered Medication Name Filled Medication Name Start Date Stop Date Current Medication? Ordering Clinician Indication Dosage Frequency Signature (SIG) Comments Components Source ibuprofen (IBU) tablet 600 mg ibuprofen (IBU) tablet 600 mg 10-08 08:15: 00 10-08 08:20 :00 No 600mg 600 mg, Oral, ONCE, 1 dose, On Tue10/08/24 at 0315, [facility] HYDROcodone -acetaminop hen (NORCO 5) tablet 1 tablet HYDROcodone -acetaminop hen (NORCO 5) tablet 1 tablet 10-08 08:15: 00 10-08 08:20 :00 No 1{tbl} 1 tablet, Oral, ONCE, 1 dose, On Tue10/08/24 at 0315, [facility] artificial tears,hypro mellose, 0.5 % ophthalmic drops 10-08 00:00: 00 Yes [id number] 1[drp] Place 1 Drop in both eyes as needed for Dry eyes. [facility] moxifloxaci n 0.5 % ophthalmic drops 10-08 00:00: 00 10-16 04:59 :00 No [id number] 1[drp] Place 1 Drop in right eye 4 (four) times daily for 7 days. [facility] ketorolac (TORADOL) injection 15 mg 10-30 23:00: 00 10-30 22:54 :00 No 15mg 15 mg, Intramuscu lar, ONCE, 1 dose, On Tue10/31/23 at 1800, FLASH [facility] Cholecalcif sangita, Vitamin D3, 50 mcg (2,000 unit) capsule 10-30 19:58: 23 Yes 2000U Take 1 capsule by mouth in the morning. [facility] metFORMIN 1,000 mg tablet 10-30 19:58: 23 Yes 1000mg Take 1 tablet by mouth in the morning and 1 tablet in the evening. Take with meals. [facility] indomethaci n 25 mg capsule 10-30 19:58: 23 10-30 00:00 :00 No 25mg Take 1 capsule by mouth 3 (three) times daily as needed. [facility] ketorolac 10 mg tablet 10-30 00:00: 00 Yes [id number] 10mg Take 1 tablet by mouth every 6 (six) hours as needed for Pain (scale 7-10) for up to 15 doses. [facility] metoprolol tartrate 25 mg tablet 2022-06 00:00: 00 Yes 25mg Take 1 tablet by mouth in the morning and 1 tablet in the evening. [facility] glimepiride 4 mg tablet 2022-06 00:00: 00 Yes 4mg Take 1 tablet by mouth daily with breakfast. [facility] gabapentin 600 mg tablet 2022-06 00:00: 00 Yes 600mg Take 1 tablet by mouth in the morning and 1 tablet at noon and 1 tablet in the evening. [facility] atorvastati n 40 mg tablet 08-03 00:00: 00 Yes 40mg Take 1 tablet by mouth at bedtime. [facility] Indomethaci n ER 75 MG Indomethaci n [...] Colchicine 0.6 MG meclizine 25 mg tablet 02-03 00:00: 00 Yes 25mg Take 1 tablet by mouth every 6 (six) hours. [facility] acetaminoph en-codeine (TYLENOL-CO DEINE #4) 300-60 mg tablet 01-10 00:00: 00 Yes 1{tbl} Take 1 tablet by mouth every 4 (four) hours as needed for Pain. [facility] ketorolac 10 mg tablet 01-10 00:00: 00 10-30 00:00 :00 No 10mg Take 1 tablet by mouth every 6 (six) hours as needed for Pain (scale 7-10). [facility] Glimepiride Glimepiride 08-19 00:00: 00 Yes Ameya Quevedo 1 tablet [facility] Lisinopril 20 MG Lisinopril 20 MG 08-19 [...] No 1{table t} TID Gabapentin 600 MG allopurinol 100 mg tablet Take 1 tablet every day by oral route. allopurinol 100 mg tablet Take 1 tablet every day by oral route. No 1 Q1D allopurino l 100 mg tablet Take 1 tablet every day by oral route. [facility] atorvastati n 40 mg tablet Take 1 tablet every day by oral route at bedtime for 90 days. atorvastati n 40 mg tablet Take 1 tablet every day by oral route at bedtime for 90 days. No 1 Q1D atorvastat in 40 mg tablet Take 1 tablet every day by oral route at bedtime for 90 days. [facility] gabapentin 600 mg tablet Take 1 tablet 3 times a day by oral route for 90 days. gabapentin 600 mg tablet Take 1 tablet 3 times a day by oral route for 90 days. No 1 TID gabapentin 600 mg tablet Take 1 tablet 3 times a day by oral route for 90 days. [facility] glimepiride 4 mg tablet Take 1 tablet twice a day by oral route for 90 days. glimepiride 4 mg tablet Take 1 tablet twice a day by oral route for 90 days. No 1 BID glimepirid e 4 mg tablet Take 1 tablet twice a day by oral route for 90 days. [facility] indomethaci n 25 mg capsule Take 1 [...] oral route as needed for 10 days. [facility] metformin 1,000 mg tablet TAKE 1 TABLET BY MOUTH TWICE DAILY metformin 1,000 mg tablet TAKE 1 TABLET BY MOUTH TWICE DAILY No 1 BID metformin 1,000 mg tablet TAKE 1 TABLET BY MOUTH TWICE DAILY [facility] albuterol sulfate HFA 90 mcg/actuati on aerosol [...] hours by inhalation route for 90 days. [facility] Trulance 3 mg tablet Trulance 3 mg tablet No Trulance 3 mg tablet [facility] aspirin 81 mg chewable tablet CHEW AND SWALLOW ONE TABLET BY MOUTH DAILY aspirin 81 mg chewable tablet CHEW AND SWALLOW ONE TABLET BY MOUTH DAILY No aspirin 81 mg chewable tablet CHEW AND SWALLOW ONE TABLET BY MOUTH DAILY [facility] clopidogrel 75 mg tablet TAKE 1 TABLET BY MOUTH DAILY clopidogrel 75 mg tablet TAKE 1 TABLET BY MOUTH DAILY No clopidogre l 75 mg tablet TAKE 1 TABLET BY MOUTH DAILY [facility] amlodipine 5 mg tablet TAKE 1 TABLET BY MOUTH EVERY DAY amlodipine 5 mg tablet TAKE 1 TABLET BY MOUTH EVERY DAY No amlodipine 5 mg tablet TAKE 1 TABLET BY MOUTH EVERY DAY [facility] Ozempic 2 mg/dose (8 mg/3 mL) subcutaneou [...] by subcutaneo us route for 84 days. Shay Adkins [facility] Thiamine Thiamine No Thiamine Vitamin D 50 [...] MG (48) No predniSONE 5 MG (48) Zinc 50 MG Zinc 50 MG No 1{ table t} QD Zinc 50 MG Vital Signs Vital Name Observation Time Observation Value Comments S ource Systolic blood pressure 2024-10-08 07:59:00 127 mm[Hg] [facility] Diastolic blood pressure 2024-10-08 07:59:00 84 mm[Hg] [facility] Heart rate 2024-10-08 07:59:00 71 /min [facility] Body temperature 2024-10-08 07:59:00 36.67 Consuelo [facility] Respiratory rate 2024-10-08 07:59:00 18 /min [facility] Oxygen saturation in Arterial blood by Pulse oximetry 2024-10-08 07:59:00 96 /min [facility] Body height 2024-10-08 05:01:[address] [facility] Body weight 2024-10-08 05:01:[address] [facility] BMI 2024-10-08 05:01:00 33.97 kg/m2 [facility] Height 2024-07-20 00:00:00 69 [in_i] [facility] BP Diastolic 2024-07-20 00:00:00 88 mm[Hg] [facility] BP Systolic 2024-07-20 00:00:00 146 mm[Hg] [facility] BMI (Body Mass Index) 2024-07-20 00:00:00 34.6 kg/m2 [facility] Body Weight 2024-07-20 00:00:00 3750 [oz_av] [facility] Height 2024-06-29 00:00:00 69 [in_i] [facility] BP Systolic 2024-06-29 00:00:00 126 mm[Hg] [facility] BP Diastolic 2024-06-29 00:00:00 77 mm[Hg] [facility] Body Weight 2024-06-29 00:00:00 3832 [oz_av] [facility] BMI (Body Mass Index) 2024-06-29 00:00:00 35.4 kg/m2 [facility] BP Diastolic 2024-02-28 00:00:00 82 mm[Hg] [facility] BP Systolic 2024-02-28 00:00:00 143 mm[Hg] [facility] Height 2024-02-28 00:00:00 69 [in_i] [facility] Body height 2023-12-09 13:19:[address] [facility] Body weight 2023-12-09 13:19:[address] [facility] BMI 2023-12-09 13:19:00 37.07 kg/m2 [facility] Body height 2023-11-01 14:05:[address] [facility] Body weight 2023-11-01 14:05:[address] [facility] BMI 2023-11-01 14:05:00 35.15 kg/m2 [facility] Systolic blood pressure 2023-11-01 00:42:00 142 mm[Hg] [facility] Diastolic blood pressure 2023-11-01 00:42:00 98 mm[Hg] [facility] Heart rate 2023-11-01 00:42:00 74 /min [facility] Body temperature 2023-11-01 00:42:00 36.89 Consuelo [facility] Respiratory rate 2023-11-01 00:42:00 18 /min [facility] Oxygen saturation in Arterial blood by Pulse oximetry 2023-11-01 00:42:00 100 /min [facility] Body height 2023-10-31 22:10:[address] [facility] Body weight 2023-10-31 22:10:[address] [facility] BMI 2023-10-31 22:10:00 35.15 kg/m2 [facility] Systolic blood pressure 2023-10-13 14:51:00 130 mm[Hg] [facility] Diastolic blood pressure 2023-10-13 14:51:00 87 mm[Hg] [facility] Heart rate 2023-10-13 14:51:00 77 /min [facility] Body height 2023-10-13 14:51:[address] [facility] Body weight 2023-10-13 14:51:[address] [facility] BMI 2023-10-13 14:51:00 35.44 kg/m2 [facility] Oxygen saturation in Arterial blood by Pulse oximetry 2023-10-13 14:51:00 99 /min [facility] BMI (Body Mass Index) 2023-08-16 00:00:00 34.8 kg/m2 [facility] Body Weight 2023-08-16 00:00:00 3770 [oz_av] [facility] Height 2023-08-16 00:00:00 69 [in_i] [facility] BP Systolic 2023-08-16 00:00:00 155 mm[Hg] [facility] BP Diastolic 2023-08-16 00:00:00 93 mm[Hg] [facility] Height 2023-04-06 00:00:00 69 [in_i] [facility] Systolic blood pressure 2023-01-20 22:00:00 132 mm[Hg] [facility] Diastolic blood pressure 2023-01-20 22:00:00 75 mm[Hg] [facility] Heart rate 2023-01-20 22:00:00 77 /min [facility] Respiratory rate 2023-01-20 22:00:00 18 /min [facility] Oxygen saturation in Arterial blood by Pulse oximetry 2023-01-20 22:00:00 96 /min [facility] Body temperature 2023-01-20 20:33:00 37.17 Consuelo [facility] Body height 2023-01-20 20:33:[address] [facility] Body weight 2023-01-20 20:33:[address] [facility] BMI 2023-01-20 20:33:00 35.59 kg/m2 [facility] BP Diastolic 2022-09-17 00:00:00 89 mm[Hg] [facility] Height 2022-09-17 00:00:00 69 [in_i] [facility] BMI (Body Mass Index) 2022-09-17 00:00:00 35.7 kg/m2 [facility] BP Systolic 2022-09-17 00:00:00 155 mm[Hg] [facility] Body Weight 2022-09-17 00:00:00 3872 [oz_av] [facility] BP Diastolic 2022-06-25 00:00:00 96 mm[Hg] [facility] Height 2022-06-25 00:00:00 69 [in_i] [facility] BMI (Body Mass Index) 2022-06-25 00:00:00 35.9 kg/m2 [facility] BP Systolic 2022-06-25 00:00:00 146 mm[Hg] [facility] Body Weight 2022-06-25 00:00:00 3888 [oz_av] [facility] BP Diastolic 2022-05-20 00:00:00 82 mm[Hg] [facility] Height 2022-05-20 00:00:00 69 [in_i] [facility] BMI (Body Mass Index) 2022-05-20 00:00:00 36.8 kg/m2 [facility] BP Systolic 2022-05-20 00:00:00 145 mm[Hg] [facility] Body Weight 2022-05-20 00:00:00 3984 [oz_av] [facility] BP Diastolic 2022-01-05 00:00:00 92 mm[Hg] [facility] Height 2022-01-05 00:00:00 69 [in_i] [facility] BMI (Body Mass Index) 2022-01-05 00:00:00 36.8 kg/m2 [facility] BP Systolic 2022-01-05 00:00:00 146 mm[Hg] [facility] Body Weight 2022-01-05 00:00:00 3984 [oz_av] [facility] height 2021-08-10 14:20:00 68 [in_i] [facility] weight 2021-08-10 14:20:00 240.8 [lb_av] [facility] temperature 2021-08-10 14:20:00 97.2 [degF] [facility] bmi 2021-08-10 14:20:00 36.61 kg/m2 [facility] oximetry 2021-08-10 14:20:00 98 % [facility] respiratory rate 2021-08-10 14:20:00 16 /min [facility] blood pressure systolic 2021-08-10 14:20:00 132 mm[Hg] [facility] blood pressure diastolic 2021-08-10 14:20:00 84 mm[Hg] [facility] height 2021-03-31 13:20:00 68 [in_i] [facility] weight 2021-03-31 13:20:00 220 [lb_av] [facility] temperature 2021-03-31 13:20:00 97.8 [degF] [facility] bmi 2021-03-31 13:20:00 33.45 kg/m2 [facility] oximetry 2021-03-31 13:20:00 94 % [facility] blood pressure systolic 2021-03-31 13:20:00 118 mm[Hg[facility] blood pressure diastolic 2021-03-31 13:20:00 88 mm[Hg] [facility] height 2021-02-11 11:00:00 68 [in_i] [facility] weight 2021-02-11 11:00:00 243 [lb_av] [facility] temperature 2021-02-11 11:00:00 98.2 [degF] [facility] bmi 2021-02-11 11:00:00 36.94 kg/m2 [facility] oximetry 2021-02-11 11:00:00 96 % [facility] respiratory rate 2021-02-11 11:00:00 16 /min [facility] blood pressure systolic 2021-02-11 11:00:00 125 mm[Hg] [facility] blood pressure diastolic 2021-02-11 11:00:00 63 mm[Hg] [facility] Body height 2023-11-01 14:05:[address] [facility] Body weight 2023-11-01 14:05:[address] [facility] BMI 2023-11-01 14:05:00 35.15 kg/m2 [facility] Systolic blood pressure 2023-11-01 00:42:00 142 mm[Hg] [facility] Diastolic blood pressure 2023-11-01 00:42:00 98 mm[Hg] [facility] Heart rate 2023-11-01 00:42:00 74 /min [facility] Body temperature 2023-11-01 00:42:00 36.89 Consuelo [facility] Respiratory rate 2023-11-01 00:42:00 18 /min [facility] Oxygen saturation in Arterial blood by Pulse oximetry 2023-11-01 00:42:00 100 /min [facility] Procedures Procedure Date / Time Performed Performing Clinician Source CT, chest, w/o contrast 2024-07-20 00:00:00 [facility] electrocardiogram 2024-07-17 00:00:00 [facility] XR, chest, 2 view 2024-07-17 00:00:00 [facility] Amputation of Lower Limb 2023-12-27 00:00:00 [facility] CT CERVICAL SPINE WO CONTRAST 2023-10-31 23:31:00 Bettye Flood [facility] CT CERVICAL SPINE WO CONTRAST 2023-10-31 23:31:00 Bettye Flood [facility] XR TIBIA FIBULA 2 VW RIGHT 2023-10-13 15:33:11 Marcelino Correa [facility] [id number] 2023-04-27 00:00:00 CHAAB.01 [facility] [id number] 2023-04-27 00:00:00 CHAAB.01 [facility] [id number] 2023-04-27 00:00:00 CHAAB.01 [facility] [id number] 2023-04-27 00:00:00 CHAAB.01 [facility] [id number] 2023-04-27 00:00:00 CHAAB.01 [facility] [id number] 2023-04-27 00:00:00 CHAAB.01 [facility] [id number] 2023-04-24 00:00:00 CHAAB.01 [facility] [id number] 2023-04-24 00:00:00 CHAAB.01 [facility] [id number] 2023-04-24 00:00:00 CHAAB.01 [facility] XR, foot, 2 view 2023-04-06 00:00:00 [facility] COMP. METABOLIC PANEL ([id number]) 2023-01-20 21:07:00 Gracie Walton [facility] COMP. METABOLIC PANEL ([id number]) 2023-01-20 21:07:00 Gracie Walton [facility] CBC WITH DIFF 2023-01-20 21:07:00 Gracie Walton [facility] ACUTE CARE VENOUS BLOOD GAS 2023-01-20 21:06:00 Gracie Walton [facility] POCT GLUCOSE (AUTOMATED) 2023-01-20 20:35:00 Kevin Walton [facility] CONSENT/REFUSAL FOR DIAGNOSIS AND TREATMENT 2023-01-20 20:19:28 Doctor Unassigned, [place] [facility] NOTICE OF PRIVACY PRACTICES 2023-01-20 20:18:25 Doctor Unassigned, [place] [facility] Encounters Start Date/Time End Date/Time Encounter Type Admission Type Attending Clinicians [facility] Facility Care Department Encounter ID Source 2024-07-25 14:53:01 Outpatient RADHATATI [facility] [id number] [place] [facility] 2023-05-03 10:00:00 Inpatient LUANA BRUNO [facility] [id number] [facility] 2023-04-26 09:00:00 Inpatient LUANA BRUNO [facility] [id number] [facility] 2023-04-15 15:14:00 Inpatient ER SERINA FRIAS [facility] [id number] [facility] 2021-07-15 12:23:22 Outpatient Ameya Quevedo [facility] [id number] [facility] 2021-07-15 12:03:01 Outpatient Ameya Quevedo [facility] [id number] [facility] 2021-07-15 11:16:16 Outpatient Ameya Quevedo [facility] [id number] [facility] 2024-10-08 00:03:00 2024-10-08 03:31:00 Emergency Mor[facility], Segundo Drew [facility] [id number] [facility] 2024-07-20 00:00:00 2024-07-20 00:00:00 Tati Garcia, MSN, TUBE DRAW HELPER, CHIEF INNOVATION OFFICER-C: [address], [address], [place] [address] , Ph. [facility], Tati Garcia, MSN, CHIEF INNOVATION OFFICER-C [id number] 2024-06-29 00:00:00 2024-06-29 00:00:00 Chanel Staples APRN-CHIEF INNOVATION OFFICER-B C: [address] [place] [address] , Ph. [facility] [address] [facility] 2024-02-28 00:00:00 2024-02-28 00:00:00 Tati Garcia, MSN, TUBE DRAW HELPER, CHIEF INNOVATION OFFICER-C: [address], [place] [address] , Ph. [facility], Tati Garcia, MSN, CHIEF INNOVATION OFFICER-C [id number] 0910 [facility] [facility] 2023-11-08 00:00:00 2023-12-10 18:20:16 Patient Secure Msg Doctor Unassigned, [place] [facility] 1.2.840.114 350.1.13.10 4.2.7.2.686 [id number] [facility] 2023-12-09 08:37:33 2023-12-09 23:59:00 Hospital [facility] 1.2.840.114 350.1.13.10 4.2.7.2.686 [id number] [facility] 2023-12-09 08:30:00 2023-12-09 09:03:19 Office [facility] 1.2.840.114 350.1.13.10 4.2.7.2.686 [id number] [facility] 2023-12-09 08:26:03 2023-12-09 08:36:00 Hospital En[facility] 1.2.840.114 350.1.13.10 4.2.7.2.686 [id number] [facility] 2023-11-24 00:00:00 2023-11-25 08:52:41 Telephone Marcel[facility] Clem[facility] 1.2.840.114 350.1.13.10 4.2.7.2.686 [id number] [facility] 2023-11-01 09:15:00 2023-11-01 09:31:38 Office Visit Mareclino Clemons [facility] OFF[facility] 1.2.840.114 350.1.13.10 4.2.7.2.686 [id number] [facility] 2023-10-31 17:11:00 2023-10-31 19:58:00 Emergency X BETTYE FLOOD [facility] ERT [id number] [facility] 2023-10-31 17:11:00 2023-10-31 19:58:00 Emergency Bettye Flood 1.2.840.1 05062.1.1 3.104.2.7 .3.561583 .8 [id number] [facility] 2023-10-31 15:20:15 2023-10-31 17:10:00 Hospital Encounter Marcelino Clemons Bobby 1.2.840.1 06660.1.1 3.104.2.7 .3.719301 .8 [id number] [facility] 2023-10-31 00:00:00 2023-10-31 00:00:00 Travel 1.2.840.1 92760.1.1 3.104.2.7 .3.277310 .8 1.2.840.114 350.1.13.10 4.2.7.3.698 [id number] [facility] 2023-10-13 10:26:07 2023-10-13 23:59:00 Hospital Encounter Marcelino Clemons Bobby 1.2.840.1 58672.1.1 3.104.2.7 .3.732405 .8 [id number] [facility] 2023-10-13 10:15:00 2023-10-13 10:42:57 Office Visit Marcelino Clemons Bobby 1.2.840.1 61062.1.1 3.104.2.7 .3.866940 .8 [id number] [facility] 2023-10-12 00:00:00 2023-10-12 00:00:00 Travel 1.2.840.1 40512.1.1 3.104.2.7 .3.757771 .8 1.2.840.114 350.1.13.10 4.2.7.3.698 [id number] [facility] 2023-08-16 00:00:00 2023-08-16 00:00:00 Tati Garcia, MSN, TUBE DRAW HELPER, CHIEF INNOVATION OFFICER-C: [address], [address], [place] [address] , Ph. [facility], Tati Garcia, MSN, CHIEF INNOVATION OFFICER-C [id number] [facility] 2023-04-19 20:05:00 2023-05-05 17:48:00 Inpatient UR Domenic Rainey HCACL INTE [id number] 42 [facility] 2023-04-16 11:19:00 2023-04-19 18:10:00 inpatient encounter [facility] [id number] [facility] [id number] 2023-04-16 11:19:00 2023-04-19 18:10:00 Inpatient ER SERINA FRIAS [facility] [id number] [facility] 2023-04-12 08:33:00 2023-04-12 08:33:00 Outpatient LUANA BRUNO [facility] [id number] [facility] 2023-04-11 10:08:00 2023-04-11 10:08:00 Outpatient LUANA BRUNO [facility] [id number] [facility] 2023-04-06 00:00:00 2023-04-06 00:00:00 Tati Garcia, MSN, TUBE DRAW HELPER, CHIEF INNOVATION OFFICER-C: [address], [address], [place] [address] , Ph. [facility], Tati Garcia, MSN, CHIEF INNOVATION OFFICER-C [id number] [place] [facility] 2023-01-20 15:35:00 2023-01-20 17:41:00 Emergency X GRACIE WALTON [facility] ERT [id number] [facility] 2023-01-20 15:35:00 2023-01-20 17:41:00 Emergency Gracie Walton [facility] 1.2.840.114 350.1.13.10 4.2.7.2.686 [id number] [facility] 2022-09-17 00:00:00 2022-09-17 00:00:00 Tati Garcia MSN, TUBE DRAW HELPER, CHIEF INNOVATION OFFICER-C: [address], [place] [address] , Ph. [facility], DONALDO Wren, CHIEF INNOVATION OFFICER-C [id number] [facility] 2022-07-29 00:00:00 2022-07-29 00:00:00 DONALDO Wren, TUBE DRAW HELPER, CHIEF INNOVATION OFFICER-C: [address], [place] [address] , Ph. [facility], DONALDO Wren, CHIEF INNOVATION OFFICER-C [id number] [facility] 2022-06-25 00:00:00 2022-06-25 00:00:00 DONALDO Wren, TUBE DRAW HELPER, CHIEF INNOVATION OFFICER-C: [address], [place] [address] , Ph. [facility], Tati Garcia MSN, CHIEF INNOVATION OFFICER-C [id number] [place] [facility] 2022-06-15 00:00:00 2022-06-15 00:00:00 Tati Garcia MSN, TUBE DRAW HELPER, CHIEF INNOVATION OFFICER-C: [address], [place] [address] , Ph. [facility], aTti Garcia, MSN, CHIEF INNOVATION OFFICER-C [id number] [facility] 2022-05-20 00:00:00 2022-05-20 00:00:00 Tati Garcia MSN, TUBE DRAW HELPER, CHIEF INNOVATION OFFICER-C: [address], [place] [address] , Ph. [facility], Tati Garcia MSN, CHIEF INNOVATION OFFICER-C [id number] [facility] 2022-01-22 00:00:00 2022-01-22 00:00:00 Outpatient RadhaTati [facility] [id number] 2022-01-22 00:00:00 2022-01-22 00:00:00 Tati Garcia MSN, TUBE DRAW HELPER, CHIEF INNOVATION OFFICER-C: [address], [place] [address] , Ph. [facility], Tati Garcia MSN, CHIEF INNOVATION OFFICER-C [id number] [facility] 2022-01-05 00:00:00 2022-01-05 00:00:00 Outpatient Tati Garcia [facility] [id number] 2022-01-05 00:00:00 2022-01-05 00:00:00 Tati Garcia MSN, TUBE DRAW HELPER, CHIEF INNOVATION OFFICER-C: [address], [place] [address] , Ph. [facility], Tati Garcia, MSN, CHIEF INNOVATION OFFICER-C [id number] [facility] 2021-09-22 00:00:00 2021-09-22 00:00:00 (TEL) STLMLC STLMLC [id number] [facility] 2021-08-10 00:00:00 2021-08-10 00:00:00 OFFICE VISIT EST PT LEVEL 3 STLMLC STLMLC [id number] [facility] 2021-08-10 00:00:00 2021-08-10 00:00:00 (TEL) STLMLC STLMLC [id number] [facility] 2021-08-10 00:00:00 2021-08-10 00:00:00 (TEL) STLMLC STLMLC [id number] [facility] 2021-08-07 00:00:00 2021-08-07 00:00:00 (TEL) STLMLC STLMLC [id number] [facility] 2021-05-25 13:57:00 2021-05-25 17:02:00 Emergency ER CELIOKAYLEIGH Drew [facility] [id number] [facility] 2021-05-01 00:00:00 2021-05-01 00:00:00 (TEL) STLMLC STLMLC [id number] [facility] 2021-04-14 13:35:00 2021-04-14 19:30:00 Emergency ER CELIOKAYLEIGH Drew [facility] [id number] [facility] 2021-03-31 00:00:00 2021-03-31 00:00:00 OFFICE VISIT EST PT LEVEL 3 STLMLC STLMLC [id number] [facility] 2021-03-21 16:13:00 2021-03-25 17:06:00 Inpatient ER GRAY CASAS [facility] [id number] [facility] 2021-02-11 00:00:00 2021-02-11 00:00:00 OFFICE VISIT ESTAB PT LEVEL 2 STLMLC STLMLC [id number] [facility] 2020-07-09 00:00:00 2020-07-09 00:00:00 Outpatient STLMLC STLMLC [id number] [facility] 2020-03-13 00:00:00 2020-03-13 00:00:00 Outpatient STLMLC STLC [id number] [facility] 2019-11-20 14:20:00 2019-11-20 14:20:00 Outpatient [facility] Medicine [facility] [id number] [facility] 2019-11-19 11:47:00 2019-11-19 11:47:00 Outpatient [facility] [id number] [facility] 2019-09-19 10:20:00 2019-09-19 10:20:00 Outpatient [facility] [id number] [facility] 2019-09-17 09:17:00 2019-09-17 09:17:00 Outpatient [facility] Medicine [id number] [facility] 2019-09-10 15:32:00 2019-09-10 15:32:00 [facility] Medicine [id number] [facility] 2018-09-04 15:00:00 2018-09-04 15:00:00 Outpatient [facility] Medicine [id number] [facility] Results Test Description Test Time Test Comments [...] level is C6-C7. The craniocervical junctionis intact. [facility] XR TIBIA FIBULA 2 VW RIGHT 20:44:24 XR TIBIA FIBULA 2 VW RIGHT INDICATION: right tib fibula Rm 6 COMPARISON: None FINDINGS: Mildly displaced spiral fracture of the proximal fibular diaphysis. Diffusesoft tissue swelling. Moderate knee joint osteoarthrosis is partiallyvisualized. External splint material obscures soft tissue and bony detail. [facility] GLUCOSE [id number] 08:26:00* Test Item Value Reference Range Interpretation Comme nts GLUCOSE BEDSIDE (test code = GLUBED) 177 MG/DL 70-110 H Performed by mila alexandra vehicle operator at [facility] BASIC METABOLIC [id number] 06:00:00* Test Item Value Reference Range Interpretation [...] code = CA) 8.9 mg/dL 8.0-10.5 N [id number] 06:00:00* Test Item Value Reference Range Interpretation Comme nts MAGNESIUM (test code = MAG) 1.39 mg/dL 1.6-2.6 L NOTE: NEW NORMAL RANGE CBC W/AUTO [id number] 04:30:00* Test Item Value Reference Range Interpretation [...] NRBC#) 0.00 x10 3/uL 0.0-0.1 N GLUCOSE [id number] 20:35:00* Test Item Value Reference Range Interpretation Comme nts GLUCOSE BEDSIDE (test code = GLUBED) 246 MG/DL 70-110 H Performed by [facility] vehicle operator at [facility] GLUCOSE [id number] 17:44:00* Test Item Value Reference Range Interpretation Comme nts GLUCOSE BEDSIDE (test code = GLUBED) 242 MG/DL 70-110 H Performed by [facility] vehicle operator at [facility] GLUCOSE [id number] 12:32:00* Test Item Value Reference Range Interpretation Comme nts GLUCOSE BEDSIDE (test code = GLUBED) 218 MG/DL 70-110 H Performed by [facility] vehicle operator at [facility] GLUCOSE [id number] 08:17:00* Test Item Value Reference Range Interpretation Comme nts GLUCOSE BEDSIDE (test code = GLUBED) 233 MG/DL 70-110 H Performed by [facility] vehicle operator at [facility] - XR CHEST 1 [id number] 07:43:00 [facility] : 1965 Sex: M FAX: Domenic Banerjee MD [phone] [place]: St: [facility] FAX: Viky Barbour [facility] [phone] --- Name: JONG RIVAS [facility] : 1965 Age/S: 58/M [address] [place] [address] Unit #: [id number] Loc: G.3343 [place] [address] Phys: Viky Mclaughlin Acct: [id number] Dis Date: Status: ADM IN PHONE #: [phone] Exam Date: 05/04/2023540 FAX #: [phone] Reason: S/P CABG, R/O EFFUSION EXAMS: CPT CODE: [id number] XR CHEST 1 V 09820 EXAM: - XR CHEST 1 V Location code:C3 HISTORY: S/P CABG, R/O EFFUSION COMPARISON: 05/03/2023 IMPRESSION: Single AP view of the chest is provided. Support lines and tubes are unchanged. Perihilar alveolar opacities have diminished. There is no pneumothorax. No a dditional interval change. at 0743 Reported and signed by: Oziel Bro M.D. CC: Domenic Rainey MD; Viky Mclaughlin Technologist: Winsome Minor, RT(R) Trnscrd Date/Time/By: 05/04/2023 (0743) : By: [email or web address] Orig Print D/T: S: 05/04/2023 (0790) PAGE 1 Signed ReportBASIC METABOLIC PANEL 2023-05-04 06:27:00* Test Item Value Reference Range Interpretation [...] code = CA) 8.5 mg/dL 8.0-10.5 N [id number] 06:27:00* Test Item Value Reference Range Interpretation Comme nts MAGNESIUM (test code = MAG) 1.52 mg/dL 1.6-2.6 L NOTE: NEW NORMAL RANGE CBC W/AUTO [id number] 06:12:00* Test Item Value Reference Range Interpretation [...] NRBC#) 0.00 x10 3/uL 0.0-0.1 N GLUCOSE [id number] 21:09:00* Test Item Value Reference Range Interpretation Comme nts GLUCOSE BEDSIDE (test code = GLUBED) 211 MG/DL 70-110 H Performed by cer tified vehicle operator at [facility] GLUCOSE [id number] 15:58:00* Test Item Value Reference Range Interpretation Comme nts GLUCOSE BEDSIDE (test code = GLUBED) 185 MG/DL 70-110 H Performed by [facility] tified vehicle operator at [facility] GLUCOSE [id number] 11:21:00* Test Item Value Reference Range Interpretation Comme nts GLUCOSE BEDSIDE (test code = GLUBED) 181 MG/DL 70-110 H Performed by [facility] tified vehicle operator at [facility] - XR CHEST 1 [id number] 08:21:00 [facility] : 1965 Sex: M FAX: Domenic Banerjee MD [phone] [place]: St: [facility] FAX: Viky Barbour y [phone] --- Name: JONG RIVAS [facility] : 1965 Age/S: 58/M [address] [place] [address] Unit #: [id number] Loc: [place] [address] Phys: Viky Mclaughlin Acct: [id number] Dis Date: Status: ADM IN PHONE #: [phone] Exam Date: 05/03/202346 FAX #: [phone] Reason: Cardiac Surgery Post Op EXAMS: CPT CODE: [id number] XR CHEST 1 V 21436 EXAMINATION: - XR CHEST 1 V CLINICAL INDICATION: Cardiac Surgery Post Op COMPARISON: Chest radiograph from May 02, 2023. FINDINGS: Right-sided PICC line is stable. Postcardiac changes with median sternotomy wires redemonstrated. No significant change compared to prior study. Decreased lung volumes with pulmonary vascular congestion and mild atelectasis involving the lung bases, left greater than right. No pneumothorax. Cardiac silhouette is enlarged. Otherwise, cardiac and mediastinal silhouettes are stable. No acute osseous abnormalities. IMPRESSION: No significant change compared to prior study. Postcardiac surgical changes and unchanged pulmonaryvascular congestion. Mild atelectasis of the lung bases, left greater than right. ElectronicallySigned by Bina Butler on 05/03/2023 at 0821 Reported and signed by: Phillip Butler D.O CC: Domenic Rainey MD; Viky Mclaughlin Technologist: RT Cheryl(Ayla) Trnscrd Date/Time/By: 05/03/2023 (08) : By: Orig Print D/T: S: 05/03/2023 (0879) PAGE 1 Signed ReportBASIC METABOLIC [id number] 03:03:00* Test Item Value Reference Range Interpretation [...] code = CA) 8.7 mg/dL 8.0-10.5 N [id number] 03:03:00* Test Item Value Reference Range Interpretation Comme nts MAGNESIUM (test code = MAG) 1.72 mg/dL 1.6-2.6 N NOTE: NEW NORMAL RANGE CBC W/AUTO [id number] 02:44:00* Test Item Value Reference Range Interpretation [...] NRBC#) 0.00 x10 3/uL 0.0-0.1 N GLUCOSE [id number] 19:54:00* Test Item Value Reference Range Interpretation Comme [facility] GLUCOSE BEDSIDE (test code = GLUBED) 160 MG/DL 70-110 H Performed by cer tified vehicle operator at [facility] GLUCOSE [id number] 16:59:00* Test Item Value Reference Range Interpretation Comme [facility] GLUCOSE BEDSIDE (test code = GLUBED) 109 MG/DL 70-110 N Performed by [facility] at [facility] - DUP VEIN [id number] 11:52:00 [facility] : 1965 Sex: M Name: JONG RIVAS [place] : 1965 Age/S: 58 / M [address] [place] [address] Bl Unit #: [id number] Loc: [place] [address] Phys: Viky Mclaughlin Acct: [id number] Dis Date: Status: ADM IN PHONE #: [phone] Exam Date: 05/02/2023 113 FAX #: [phone] Reason: R/O DVT EXAMS: CPT CODE: [id number] DUP VEIN ANALI 22310 EXAM: - DUP VEIN ANALI HISTORY: R/O DVT Location: T18 TECHNIQUE:Grayscale real-time B-mode imaging with color flow and spectral flow Doppler analysis was performedof bilateral lower extremities. COMPARISON: None available time [...] Radha Francis RDMS(AB) Trnscb Date/Time: 05/02/2023 (1152) [email or web address] Orig Print D/T: S: 05/02/2023 (1155) Probe: PAGE 1 Signed ReportGLUCOSE [id number] 11:51:00 * Test Item Value Reference Range Interpretation Comme nts GLUCOSE BEDSIDE (test code = GLUBED) 151 MG/DL 70-110 H Performed by mila alexandra vehicle operator at [facility] - XR CHEST 1 [id number] 08:25:00 [facility] : 1965 Sex: M FAX: Domenic Banerjee MD [phone] [place]: St: [place] FAX: Viky Barbour [facility] [phone] --- Name: JONG RIVAS [facility] : 1965 Age/S: 58/M [address] [place] [address] Unit #: [id number] Loc: G.[address] [place] [address] Phys: Viky Mclaughlin Acct: [id number] Dis Date: Status: ADM IN PHONE #: [phone] Exam Date: 05/02/2023 0500 FAX #: [phone] Reason: Cardiac Surgery Post Op EXAMS: CPT CODE: [id number] XR CHEST 1 V 20566 EXAMINATION: - XR CHEST 1 V HISTORY: Postop COMPARISON: X-ray performed the previous day LOCATION CODE: C3 FINDINGS: Single frontal view of the chest is submitted for evaluation. Right- sided PICC line is unchanged. Enlarged cardiac silhouette and pulmonary vascula ture congestion are stable, as are mild bibasilar linear changes. No new abnormalities are seen.. IMPRESSION: No significant change from the prior at 0831 Reported and signed by: Anu Amador M.D. CC: Domenic Rainey MD; Viky Mclaughlin Technologist: Winsome Minor, RT(R) Trnscrd Date/Time/By: 05/02/2023 (0866) : By: [email or web address] [facility] Print D/T: S: 05/02/2023 (6222) PAGE 1 Signed ReportGLUCOSE [id number] 07:47:00* Test Item Value Reference Range Interpretation Comme nts GLUCOSE BEDSIDE (test code = GLUBED) 154 MG/DL 70-110 H Performed by cer ibrahima vehicle operator at [facility] CBC W/AUTO [id number] 03:13:00* Test Item Value Reference Range Interpretation [...] 0.00 x10 3/uL 0.0-0.1 N SED RATE [id number] 03:13:00* Test Item Value Reference Range Interpretation Comme nts SED RATE WESTERGREN (test co de = SEDW) 106 mm/hr 0-15 H C REACTIVE [id number] 03:08:00* Test Item Value Reference Range Interpretation Comme nts C REACTIVE PROTEIN (test cod e = CRP) 77.0 mg/L <10.0 H BASIC METABOLIC [id number] 03:06:00* Test Item Value Reference Range Interpretation [...] code = CA) 8.7 mg/dL 8.0-10.5 N [id number] 03:06:00* Test Item Value Reference Range Interpretation Comme nts MAGNESIUM (test code = MAG) 1.84 mg/dL 1.6-2.6 N NOTE: NEW NORMAL RANGE GLUCOSE [id number] 19:42:00* Test Item Value Reference Range Interpretation Comme nts GLUCOSE BEDSIDE (test code = GLUBED) 163 MG/DL 70-110 H Performed by cer ibrahima vehicle operator at [facility] BASIC METABOLIC [id number] 15:49:00* Test Item Value Reference Range Interpretation [...] code = CA) 8.5 mg/dL 8.0-10.5 N [id number] 15:49:00* Test Item Value Reference Range Interpretation Comme nts PHOSPHOROUS (test code = PHOS) 3.0 MG/DL 2.5-4.9 N [id number] 15:49:00* Test Item Value Reference Range Interpretation Comme nts MAGNESIUM (test code = MAG) 1.63 mg/dL 1.6-2.6 NOTE: NEW NORMAL RANGE GLUCOSE [id number] 15:38:00* Test Item Value Reference Range Interpretation Comme nts GLUCOSE BEDSIDE (test code = GLUBED) 131 MG/DL 70-110 H Performed by cer tified vehicle operator at [facility] GLUCOSE [id number] 11:22:00* Test Item Value Reference Range Interpretation Comme nts GLUCOSE BEDSIDE (test code = GLUBED) 221 MG/DL 70-110 H Performed by [facility] tifQuery Hunter vehicle operator at [facility] GLUCOSE [id number] 09:33:00* Test Item Value Reference Range Interpretation Comme nts GLUCOSE BEDSIDE (test code = GLUBED) 170 MG/DL 70-110 H Performed by [facility] CicerOOs vehicle operator at [facility] - XR CHEST 1 [id number] 08:32:00 [facility] : 1965 Sex: M FAX: Domenic Banerjee MD [phone] [place]: St: ADM FAX: Viky Barbour [facility] [phone] --- Name: JONG RIVAS [facility] : 1965 Age/S: 58/M [address] [place] [address] Blvd Unit #: [id number] Loc: G.2201 [place] [address] Phys: Viky Mclaughlin Physic Acct: [id number] Dis Date: Status: ADM IN PHONE #: [phone] Exam Date: 05/01/2023720 FAX #: [phone] Reason: Cardiac Surgery Post Op EXAMS: CPT CODE: [id number] XR CHEST 1 V 96880 H 20 TIME OF STUDY: 05/01/2023 5:00 AM REASON FOR EXAM: Cardiac Surgery Post Op COMPARISON: 1 day prior. FINDINGS: AP view of the chest was obtained. Support devices: Stable support devices. Lungs: Minimal left basilar atelectasis with low lung volumes. Mild deonte tral vascular congestion. Pleura: No large pleural effusion or pneumothorax. Heart and Mediastinum:Stable cardiomegaly and calcific atherosclerosis. Bones: Post CABG changes are evident. The median sternotomy wires are in the expected configuration. IMPRESSION: 1. Expected post-CABG changes with mild central vascular congestion. at 0832 Reported and signed by: Silas Do M.D. CC: Domenic Rainey MD; Viky Mclaughlin Technologist: Mirian Contreras RT(R) Trnscrd Date/Time/By: 05/01/2023 (0832) : By: [email or web address] Orig Print D/T: S:05/01/2023 (9866) PAGE 1 Signed ReportBASIC METABOLIC [id number] 02:59:00* Test Item Value Reference Range Interpretation [...] code = CA) 8.8 mg/dL 8.0-10.5 N [id number] 02:59:00* Test Item Value Reference Range Interpretation Comme nts MAGNESIUM (test code = MAG) 2.03 mg/dL 1.6-2.6 N NOTE: NEW NORMAL RANGE CBC W/AUTO [id number] 02:43:00* Test Item Value Reference Range Interpretation [...] 0.00 x10 3/uL 0.0-0.1 N BASIC METABOLIC [id number] 20:41:00* Test Item Value Reference Range Interpretation [...] code = CA) 9.0 mg/dL 8.0-10.5 N [id number] 20:41:00* Test Item Value Reference Range Interpretation Comme nts MAGNESIUM (test code = MAG) 1.80 mg/dL 1.6-2.6 N NOTE: NEW NORMAL RANGE CALCIUM [id number] 20:41:00* Test Item Value Reference Range Interpretation Comme nts CALCIUM IONIZED (test code = MASSIMO) 1.09 MMOL/L 1.09-1.30 N GLUCOSE [id number] 19:14:00* Test Item Value Reference Range Interpretation Comme nts GLUCOSE BEDSIDE (test code = GLUBED) 157 MG/DL 70-110 H Performed by [employer] vehicle operator at [facility] GLUCOSE [id number] 16:44:00* Test Item Value Reference Range Interpretation Comme nts GLUCOSE BEDSIDE (test code = GLUBED) 188 MG/DL 70-110 H Performed by [employer] vehicle operator at [facility] GLUCOSE [id number] 13:54:00* Test Item Value Reference Range Interpretation Comme nts GLUCOSE BEDSIDE (test code = GLUBED) 217 MG/DL 70-110 H Performed by [employer] vehicle operator at [facility] GLUCOSE [id number] 08:29:00* Test Item Value Reference Range Interpretation Comme nts GLUCOSE BEDSIDE (test code = GLUBED) 181 MG/DL 70-110 H Performed by mila alexandra vehicle operator at [facility] - XR CHEST 1 [id number] 08:14:00 [facility] : 1965 Sex: M FAX: Domenic Banerjee MD [phone] [place]: St: ADM FAX: Viky Barbour [facility] [phone] --- Name: EVELYNJONG [facility] : 1965 Age/S: 58/M [address] [place] [address] Blvd Unit #: [id number] Loc: G.2201 [place] [address] Phys: Viky Mclaughlin Physic Acct: [id number] Dis Date: Status: ADM IN PHONE #: [phone] Exam Date: 04/30/2023745 FAX #: [phone] Reason: Cardiac Surgery Post Op EXAMS: CPT CODE: [id number] XR CHEST 1 V 94988 H 20 TIME OF STUDY: 04/30/2023 5:00 AM REASON FOR EXAM: CardiacSurgery Post Op COMPARISON: 1 day prior. FINDINGS: AP view of the chest was obtained. Support devices: Mediastinal drains have been removed. Stable remaining support devices. Lungs: Minimal left basil ar atelectasis with low lung volumes. Pleura: No large pleural effusion or pneumothorax. Heart and Mediastinum: Stable cardiomegaly and calcific atherosclerosis. Bones: Post CABG changes are evident.The median sternotomy wires are in the expected configuration. . IMPRESSION: 1. Expected post-CABG c hanges with interval removal of the mediastinal drains. No pneumothorax. at 0814 Reported and signed by: Silas Do M.D. CC: Domenic Rainey MD; Viky Mclaughlin Technologist: ZENY Dodd) Trnscrd Date/Time/By: 04/30/2023 (0814) : By: [email or web address] Orig Print D/T: S: 04/30/2023 (9101) PAGE 1 Signed ReportBASIC METABOLIC [id number] 03:34:00* Test Item Value Reference Range Interpretation [...] mg/dL 8.0-10.5 N COMMENTS: POD #1HEPATIC FUNCTION [id number] 03:34:00* Test Item Value Reference Range Interpretation [...] ALKP) 62 IUnit/L 20-125 N COMMENTS: POD #[id number] 03:34:00* Test Item Value Reference Range Interpretation Comme nts MAGNESIUM (test code = MAG) 1.87 mg/dL 1.6-2.6 N NOTE: NEW NORMAL RANGE COMMENTS: POD #1CALCIUM [id number] 03:25:00* Test Item Value Reference Range Interpretation Comme nts CALCIUM IONIZED (test code = MASSIMO) 1.05 MMOL/L 1.09-1.30 L CBC W/AUTO [id number] 03:06:00* Test Item Value Reference Range Interpretation [...] NRBC#) 0.00 x10 3/uL 0.0-0.1 N GLUCOSE [id number] 19:44:00* Test Item Value Reference Range Interpretation Comme nts GLUCOSE BEDSIDE (test code = GLUBED) 267 MG/DL 70-110 H Performed by cer tified vehicle operator at [facility] GLUCOSE [id number] 17:26:00* Test Item Value Reference Range Interpretation Comme nts GLUCOSE BEDSIDE (test code = GLUBED) 216 MG/DL 70-110 H Performed by cer tified vehicle operator at [facility] BASIC METABOLIC [id number] 15:00:00* Test Item Value Reference Range Interpretation [...] code = CA) 8.5 mg/dL 8.0-10.5 N [id number] 15:00:00* Test Item Value Reference Range Interpretation Comme nts PHOSPHOROUS (test code = PHOS) 1.9 MG/DL 2.5-4.9 L [id number] 15:00:00* Test Item Value Reference Range Interpretation Comme nts MAGNESIUM (test code = MAG) 1.84 mg/dL 1.6-2.6 NOTE: NEW NORMAL RANGE [id number] 13:08:00* Test Item Value Reference Range Interpretation Comments SURGICAL (test code = SR) RUN DATE: 04/29/23 [facility] PAGE 1 RUN TIME: 1308 Specimen Inquiry RUN USER: INTERFACE PATIENT: JONG RIVAS LOC: DHAVAL U #: [id number] AGE/SX: 58/M ROOM: [facility] RE04/19/23REG DR: Domenic Rainey MD : 67 BED: 1 DIS: STATUS: ADM IN TLOC: SPEC #: [id number] RECD: 04/28/23 STATUS: TERRA RESherron #: [id number] KIEL: 04/27/23- SUBM DR: Domenic Rainey MD ENTERED: 04/28/23 SP TYPE: SURGICAL OTHR DR: Nathen Wood MD,Janes B MD Abhi,JawdaJavier Mancuso DPM, MD, Mallika MD Kaul, Kuldip K MD Moosa, Abdul R MD Pillai,Radha Guerrero,Charissa Rousseau ProviderORDERED: 72974, ANATOMIC SPEC COPIES TO: Domenic Rainey MD [address] [place] [address]. [address] [place] [address] Nathen Wood MD [address] [place] [address] [address] [place] [address] Janes Amador MD [address] [place] [address] Betty Moe DPM [address] [place] [address] Javier Marques MD [address] [place] [address] Kaci Longo MD [address] [facility] [address] [place] [address] CONTINUED ON NEXT PAGE RUN DATE: 04/29/23 [facility] PAGE 2 RUN TIME: 1308 Specimen Inquiry RUN USER: INTERFACE SPEC #: [id number] PATIENT: JONG RIVAS #[id number] (Continued) - COPIES TO: (Continued) Vlad Lay MD [address] [facility] [address] [place] [address] Temo Iniguez MD [address] [place] [phone] Radha De La Cruz MD [address] [place] [phone] Charissa Guerrero MD [address] [place] [phone] Undefined Provider PROCEDURES: 40609 (04/28/23-1101) TISSUES: A. ATRIUM - LEFT ATRIAL APPENDAGE CLINICAL HISTORY SAME FINAL DIAGNOSIS Left atrial appendage, segment: Moderate intimal thickening and ischemic changes. GROSS DESCRIPTION Received in formalin and designated left atrial appendage is 1 segment of pink-spears yellowsoft tissue measuring 1.9 cm in largest dimension. Entirely submitted A. Technical component performed at [facility],[address] [place], [place] [id number] Unless gross only, the diagnosis is based upon microscopic examination.Immunohistochemistry: This test was developed and its performance characteristicsdetermined by this laboratory. It has not been approved nor does it need approvalby the [place] FDA. Appropriate positive and negative controls are reviewed and judgedto be acceptable for performedimmunohistochemistry and/or special stains. This laboratory CONTINUED ON NEXT PAGE RUN DATE: 04/29/23 [place] - LAB PAGE 3 RUN TIME: 1308 Specimen Inquiry RUN USER: INTERFACE SPEC #: [id number] PATIENT: JONG RIVAS #[id number] (Continued) - DANNY AMEZCUA (Continued) is certified under the Clinical Laboratory Improvement Amendments (CLIA-88) as qualified toperform high complexity clinical laboratory testing. CLINICAL INFORMATION CAD, HTM, DM Signed SIGNATURE ON FILE MorelandPoornima 04/29/23 1308 END OF REPORT GLUCOSE [id number] 12:30:00* Test Item Value Reference Range Interpretation Comme [facility] GLUCOSE BEDSIDE (test code = GLUBED) 171 MG/DL 70-110 H Performed by mila bell at [facility] GLUCOSE [id number] 10:20:00* Test Item Value Reference Range Interpretation Comme nts GLUCOSE BEDSIDE (test code = GLUBED) 186 MG/DL 70-110 H Performed by cer tified vehicle operator at [facility] GLUCOSE [id number] 08:14:00* Test Item Value Reference Range Interpretation Comme nts GLUCOSE BEDSIDE (test code = GLUBED) 184 MG/DL 70-110 H Performed by cer tified vehicle operator at [facility] - XR CHEST 1 [id number] 08:11:00 [facility] : 1965 Sex: M FAX: Domenic Banerjee MD [phone] [place]: St: ADM FAX: Viky Barbour [facility] [phone] --- Name: JONG RIVAS [facility] : 1965 Age/S: 58/M [address] [place] [address] Unit #: [id number] Loc: G.[address] [place] [address] Phys: Viky Mclaughlin [facility] Acct: [id number] Dis Date: Status: ADM IN PHONE #: [phone] Exam Date: 04/29/2023 0654 FAX #: [phone] Reason: Cardiac Surgery Post Op EXAMS: CPTCODE: [id number] XR CHEST 1 V 71582 EXAM: - XR CHEST 1 V CLINICAL HISTORY: Cardiac Surgery Post Op TECHNIQUE: Single frontal view. COMPARISON: Chest radiographs 04/28/2023 LOCATION: C4 FINDINGS: Sternotomy wires and mediastinal surgical clips are present. Left lung base chest tube and right- sided PICC line are unchanged. The trachea appears normal. The mediastinum and cardiac silhouette are withinnormal limits for size. Signs of trace vascular congestion and central pulmonary edema. Low lung volumes. Suspect trace pleural effusions, more pronounced on the left. Visualized soft tissues and osseous structures are grossly unremarkable. IMPRESSION: Signs of trace vascular congestion and centralpulmonary edema. Suspect trace bilateral pleural effusions. Stable lines and tubes. at 0811 Reported and signed by: Adilson Ordaz D.O. CC: Domenic Rainey MD; Viky Mclaughlin Technologist: RT Irena(Ayla) Trnscrd Date/Time/By: 04/29/2023 (11) : By: [email or web address] Orig Print D/T: S: 04/29/2023 (0814) PAGE 1 Signed ReportGLUCOSE [id number] 06:36:00* Test Item Value Reference Range Interpretation Comme nts GLUCOSE BEDSIDE (test code = GLUBED) 199 MG/DL 70-110 H Performed by mila bell at [facility] BASIC METABOLIC [id number] 03:28:00* Test Item Value Reference Range Interpretation [...] mg/dL 8.0-10.5 N COMMENTS: POD #1HEPATIC FUNCTION [id number] 03:28:00* Test Item Value Reference Range Interpretation [...] ALKP) 63 IUnit/L 20-125 N COMMENTS: POD #[id number] 03:28:00* Test Item Value Reference Range Interpretation Comme nts MAGNESIUM (test code = MAG) 2.23 mg/dL 1.6-2.6 N NOTE: NEW NORMAL RANGE COMMENTS: POD #1CBC W/AUTO [id number] 03:10:00* Test Item Value Reference Range Interpretation [...] NRBC#) 0.00 x10 3/uL 0.0-0.1 N GLUCOSE [id number] 00:39:00* Test Item Value Reference Range Interpretation Comme nts GLUCOSE BEDSIDE (test code = GLUBED) 217 MG/DL 70-110 H Performed by cer tified vehicle operator at [facility] GLUCOSE [id number] 21:44:00* Test Item Value Reference Range Interpretation Comme nts GLUCOSE BEDSIDE (test code = GLUBED) 253 MG/DL 70-110 H Performed by [facility] tified vehicle operator at [facility] - XR CHEST 1 [id number] 17:55:00 [facility] : 1965 Sex: M FAX: Domenic Banerjee MD [phone] [place]: St: ADM FAX: Javier Marques MD [phone] ------ Name: JONG RIVAS [facility] : 1965 Age/S: 58/M [address] [place] [address] Unit #: [id number] Loc: [address] [address] Phys: Javier Marques MD Acct: [id number] Dis Date: Status: ADM IN PHONE #: [phone] Exam Date: 04/28/2023 171 FAX #: [phone] Reason: RESPIRATORY DIFFICULTY EXAMS: CPT CODE: [id number] XR CHEST 1 V 79775 CHEST X-RAY 1 VIEW Dictation Location: N13 CLINICAL HISTORY: cardiac postop Technique: A single frontal view of the chest was obtained. Comparison made to study 0516 hours 11 hours prior FINDINGS: There has been prior [...] MD Technologist: RT Irene(Ayla) Trnscrd Date/Time/By: 04/28/2023 (5586) : By: Zane Orig Print D/T: S: 04/28/2023 (3450) PAGE 1 Signed ReportBASIC METABOLIC PANEL 2023-04-28 [...] code = CA) 8.7 mg/dL 8.0-10.5 N [id number] 15:49:00* Test Item Value Reference Range Interpretation Comme nts MAGNESIUM (test code = MAG) 2.19 mg/dL 1.6-2.6 NOTE: NEW NORMAL RANGE CALCIUM [id number] 15:49:00* Test Item Value Reference Range Interpretation Comme nts CALCIUM IONIZED (test code = MASSIMO) 1.13 MMOL/L 1.09-1.30 N GLUCOSE [id number] 14:00:00* Test Item Value Reference Range Interpretation Comme nts GLUCOSE BEDSIDE (test code = GLUBED) 144 MG/DL 70-110 H Performed by [facility] tifQuery Hunter vehicle operator at [facility] GLUCOSE [id number] 11:17:00* Test Item Value Reference Range Interpretation Comme nts GLUCOSE BEDSIDE (test code = GLUBED) 149 MG/DL 70-110 H Performed by [facility] tified vehicle operator at [facility] GLUCOSE [id number] 09:20:00* Test Item Value Reference Range Interpretation Comme nts GLUCOSE BEDSIDE (test code = GLUBED) 135 MG/DL 70-110 H Performed by [facility] CicerOOs vehicle operator at [facility] - XR CHEST 1 [id number] 08:27:00 [facility] : 1965 Sex: M FAX: Domenic Banerjee MD [phone] [place]: St: ADM FAX: Viky Barbour [facility] [phone] -- Name: JONG RIVAS [facility] [place] : 1965 Age/S: 58/M [address] [place] [address] Blvd Unit #: [id number] Loc: G.2201 [place] [address] Phys: Viky Mclaughlin Acct: [id number] Dis Date: Status: ADM IN PHONE #: [phone] Exam Date: 04/28/2023517 FAX #: [phone] Reason: Cardiac Surgery Post Op EXAMS: CPT CODE: [id number] XR CHEST 1 V 73066 Chest x-ray: Single frontal semierect view. Indication: Cardiac surgery post-op. Comparison: CXR dated 04/27/2023. FINDINGS: The visualized airway is unremarkable. The endotracheal tube has been removed in the interval. Right internal jugular vein sheath/CVC is again noted, with the tip overlying the expected location of the proximal SVC. Right upper extremityPICC is in place, in satisfactory position, with the catheter tip at the cavoatrial junction. The patient is status post median sternotomy. A left-sided chest tube is in place. The cardiomediastinal s ilhouette is enlarged. The thoracic aorta is tortuous [...] Rainey MD; Viky Mclaughlin Technologist: Winsome Minor, RT(R) [facility] Date/Time/By: 04/28/2023 (0816) : By: Orig Print D/T: S: 04/28/2023 (0505) PAGE 1 Signed ReportGLUCOSE [id number] 06:37:00* Test Item Value Reference Range Interpretation Comme nts GLUCOSE BEDSIDE (test code = GLUBED) 140 MG/DL 70-110 H Performed by cer tified vehicle operator at [facility] BASIC METABOLIC [id number] 02:43:00* Test Item Value Reference Range Interpretation [...] mg/dL 8.0-10.5 N COMMENTS: POD #1HEPATIC FUNCTION [id number] 02:43:00* Test Item Value Reference Range Interpretation [...] code = BILIND) 0.20 MG/DL COMMENTS: POD #[id number] 02:43:00* Test Item Value Reference Range Interpretation Comme nts MAGNESIUM (test code = MAG) 1.84 mg/dL 1.6-2.6 N NOTE: NEW NORMAL RANGE COMMENTS: POD #1POC ARTERIAL BLOOD [id number] 02:24:00* Test Item Value Reference Range Interpretation Comme nts POC ARTERIAL BLOOD GAS PH (t est code = POCPHA) 7.365 7.35-7.45 N POC ARTERIAL BLOOD GAS PCO2 (test code = JDHRXH2Q) 34.0 mmHg 35.0-45 L POC TCO2 ARTERIAL (test code = POCTCO2) 20.5 POC ARTERIAL BLOOD GAS PO2 ( test code = OHNDY9M) 73.3 mmHg 80-100.0 L POC HCO3 ARTERIAL (test code = UBTRLN1J) 19.4 MMOL/L 22.0-26.0 L POC BASE EXCESS (test code = POCBEA) -5.9 MMOL/L -4.0-4.0 L POC O2 SATURATION (test code = POCO2S) 94.0 % 90-100 N ABG DELIVERY (test code = MIRTA) Cannula ABG TEMPERATURE (test code = TEMPA) 99 F ABG SITE (test code = SITEA) Art Line BASIC METABOLIC [id number] 02:24:00* Test Item Value Reference Range Interpretation [...] = POCGLU) 138 MG/DL 70-110 H HEMOGLOBIN [id number] 02:24:00* Test Item Value Reference Range Interpretation Comme nts HEMOGLOBIN ABG (test code = HGB/ABG) 10.9 G/DL 12.5-16.9 L [id number] 02:24:00* Test Item Value Reference Range Interpretation Comme nts HEMATOCRIT (test code = HCT/ABG) 32 % 37.5-50.7 L POC LACTIC [id number] 02:24:00* Test Item Value Reference Range Interpretation Comme nts POC LACTIC ACID (test code = POCLAC) 0.5 mmol/l 0.9-1.7 L CBC W/AUTO [id number] 02:15:00* Test Item Value Reference Range Interpretation [...] NRBC#) 0.00 x10 3/uL 0.0-0.1 N GLUCOSE [id number] 01:18:00* Test Item Value Reference Range Interpretation Comme nts GLUCOSE BEDSIDE (test code = GLUBED) 121 MG/DL 70-110 H Performed by cer tified vehicle operator at [facility] POC ARTERIAL BLOOD [id number] 22:44:00* Test Item Value Reference Range Interpretation Comme nts POC ARTERIAL BLOOD GAS PH (t est code = POCPHA) 7.359 7.35-7.45 N POC ARTERIAL BLOOD GAS PCO2 (test code = KMJWUT3I) 34.7 mmHg 35.0-45 L POC TCO2 ARTERIAL (test code = POCTCO2) 20.7 POC ARTERIAL BLOOD GAS PO2 ( test code = KYTQN2N) 96.9 mmHg 80-100.0 N POC HCO3 ARTERIAL (test code = EXDFXU3J) 19.6 MMOL/L 22.0-26.0 L POC BASE EXCESS (test code = POCBEA) -5.8 MMOL/L -4.0-4.0 L POC O2 SATURATION (test code = POCO2S) 97.3 % 90-100 N ABG DELIVERY (test code = MIRTA) Cannula ABG TEMPERATURE (test code = TEMPA) 98.6 F ABG SITE (test code = SITEA) Art Line BASIC METABOLIC [id number] 22:44:00* Test Item Value Reference Range Interpretation [...] = POCGLU) 150 MG/DL 70-110 H HEMOGLOBIN [id number] 22:44:00* Test Item Value Reference Range Interpretation Comme nts HEMOGLOBIN ABG (test code = HGB/ABG) 10.9 G/DL 12.5-16.9 L [id number] 22:44:00* Test Item Value Reference Range Interpretation Comme nts HEMATOCRIT (test code = HCT/ABG) 32 % 37.5-50.7 L POC LACTIC [id number] 22:44:00* Test Item Value Reference Range Interpretation Comme nts POC LACTIC ACID (test code = POCLAC) 0.9 mmol/l 0.9-1.7 N GLUCOSE [id number] 22:27:00* Test Item Value Reference Range Interpretation Comme nts GLUCOSE BEDSIDE (test code = GLUBED) 145 MG/DL 70-110 H Performed by cer tified vehicle operator at [facility] GLUCOSE [id number] 20:16:00* Test Item Value Reference Range Interpretation Comme nts GLUCOSE BEDSIDE (test code = GLUBED) 157 MG/DL 70-110 H Performed by cer tified vehicle operator at [facility] PROTHROMBIN [id number] 17:45:00* Test Item Value Reference Range Interpretation Comme [facility] PROTHROMBIN TIME PATIENT (test code = [...] prevent recurrent infarct). COMMENTS: On arrivalTHROMBOPLASTIN TIME [id number] 17:45:00* Test Item Value Reference Range Interpretation [facility] THROMBOPLASTIN TIME PARTIAL (test code = PTT) 44.3 Seconds 25.0-39.5 H Therapeutic Rang e: 50.4 - 88.3 Seconds Effective 10/03/2018 COMMENTS: [facility] [id number] 17:40:00* Test Item Value Reference Range Interpretation [facility] POC ARTERIAL BLOOD GAS PH (t est code = POCPHA) 7.332 7.35-7.45 L POC ARTERIAL BLOOD GAS PCO2 (test code = AQDFNO1Y) 37.6 mmHg 35.0-45 N POC TCO2 ARTERIAL (test code = POCTCO2) 21.2 POC ARTERIAL BLOOD GAS PO2 ( test code = PRCLF4N) 104.6 mmHg 80-100.0 H POC HCO3 ARTERIAL (test code = BMNNKB5I) 20.0 MMOL/L 22.0-26.0 L POC BASE EXCESS (test code = POCBEA) -6.0 MMOL/L -4.0-4.0 L POC O2 SATURATION (test code = POCO2S) 97.8 % 90-100 N FIO2 (test code = FIO2A) 50 % PaO2/FiO2 (test code = CZJ4ZHS1) 209.20 mm/Hg ABG DELIVERY (test code = MIRTA) ET Tube ABG VENT MODE (test code = MODEA) CPAP/PS ABG TEMPERATURE (test code = TEMPA) 97.5 F ABG SITE (test code = SITEA) Art Line BASIC METABOLIC [id number] 17:40:00* Test Item Value Reference Range Interpretation [...] = POCGLU) 180 MG/DL 70-110 H HEMOGLOBIN [id number] 17:40:00* Test Item Value Reference Range Interpretation Comme nts HEMOGLOBIN ABG (test code = HGB/ABG) 12.6 G/DL 12.5-16.9 N [id number] 17:40:00* Test Item Value Reference Range Interpretation Comme nts HEMATOCRIT (test code = HCT/ABG) 37 % 37.5-50.7 L BASIC METABOLIC [id number] 17:31:00* Test Item Value Reference Range Interpretation [...] mg/dL 8.0-10.5 N COMMENTS: On arrivalComment: On [id number] 17:31:00* Test Item Value Reference Range Interpretation Comme nts MAGNESIUM (test code = MAG) 2.02 mg/dL 1.6-2.6 NOTE: NEW NORMAL RANGE COMMENTS: On arrivalComment: On arrival- XR CHEST 1 [id number] 17:22:00 [facility] 1965 Sex: M FAX: Domenic Banerjee MD [phone] [place]: St: ADM FAX: Viky Barbour [facility] [phone] -- Name: JONG RIVAS [facility] : 1965 Age/S: 58/M [address] [place] [address] Unit #: [id number] Loc: G.[address] [place] [address] Phys: Viky Mclaughlin Physic Acct: [id number] Dis Date: Status: ADM IN PHONE #: [phone] Exam Date: 04/27/2023 1705 FAX #: [phone] Reason: Cardiac Surgery Post Op EXAMS: CPT CODE: [id number] XR CHEST 1 V 40511 Dictation location: C4. CHEST, FRONTAL VIEW HISTORY: Cardiac Surgery Post Op FINDINGS: Since 04/20/23, endotracheal tube seen just above the anni in good position. Right IJ sheath within the SVC. Right PICC line in the SVC. Left pleural catheter. The lungs are underinflated. Cardiomegaly with mild pulmonary edema and probable small left pleural effusion. No pneumothorax. Sternotomy wires. Thoracic spondylosis. IMPRESSION: Interval postoperative changes withsupport tubes and lines in good position. No pneumothorax. Pulmonary edema and small left pleural effusion. at 1722 Reported and signed by: Indira Smiley M.D. CC: Domenic Rainey MD; Viky Mclaughlin Technologist: RT Ju(Ayla) Trnscrd Date/Time/By: 04/27/2023 (172) : By: [email or web address] Orig Print D/T:S: 04/27/2023 (7374) PAGE 1 Signed ReportCBC W/AUTO [id number] 17:14:00* Test Item Value Reference Range Interpretation [...] 0.00 x10 3/uL 0.0-0.1 N COMMENTS: [facility] [id number] 16:53:00* Test Item Value Reference Range Interpretation Comme nts POC ARTERIAL BLOOD GAS PH (t est code = POCPHA) 7.344 7.35-7.45 L POC ARTERIAL BLOOD GAS PCO2 (test code = CLREHZ7M) 38.4 mmHg 35.0-45 N POC TCO2 ARTERIAL (test code = POCTCO2) 22.1 POC ARTERIAL BLOOD GAS PO2 ( test code = ALTUQ7U) 80.6 mmHg 80-100.0 N POC HCO3 ARTERIAL (test code = ANMZLJ0V) 20.9 MMOL/L 22.0-26.0 L POC BASE EXCESS (test code = POCBEA) -4.8 MMOL/L -4.0-4.0 L POC O2 SATURATION (test code = POCO2S) 95.2 % 90-100 N FIO2 (test code = FIO2A) 50 % PaO2/FiO2 (test code = RHR8UTY1) 161.20 mm/Hg ABG DELIVERY (test code = MIRTA) Adult Vent ABG VENT MODE (test code = MODEA) AC ABG VENT RESP RATE (test cod e = RRA) 18 /MIN ABG TIDAL VOLUME (test code = TVA) 500 ml ABG PEEP (test code = PEEPA) 5 cmH2O ABG SITE (test code = SITEA) Art Line ALFIE'S TEST (test code = ALLENS) N/A BASIC METABOLIC [id number] 16:53:00* Test Item Value Reference Range Interpretation [...] = POCGLU) 181 MG/DL 70-110 H HEMOGLOBIN [id number] 16:53:00* Test Item Value Reference Range Interpretation Comme nts HEMOGLOBIN ABG (test code = HGB/ABG) 11.5 G/DL 12.5-16.9 L [id number] 16:53:00* Test Item Value Reference Range Interpretation Comme nts HEMATOCRIT (test code = HCT/ABG) 34 % 37.5-50.7 L [id number] 16:03:00* Test Item Value Reference Range Interpretation Comme nts ACT-ISTAT (test code = ACTI) 147 SEC 74-137 H Performed by [facility] vidhyaied vehicle operator at [facility] POC ARTERIAL BLOOD [id number] 15:58:00* Test Item Value Reference Range Interpretation Comme nts POC ARTERIAL BLOOD GAS PH (t est code = POCPHA) 7.364 7.35-7.45 N POC ARTERIAL BLOOD GAS PCO2 (test code = VUDARZ6F) 34.2 mmHg 35.0-45 L POC TCO2 ARTERIAL (test code = POCTCO2) 20.5 POC ARTERIAL BLOOD GAS PO2 ( test code = MTWFX6X) 104.1 mmHg 80-100.0 H POC HCO3 ARTERIAL (test code = LDZDZK1V) 19.5 MMOL/L 22.0-26.0 L POC BASE EXCESS (test code = POCBEA) -5.3 MMOL/L -4.0-4.0 L POC O2 SATURATION (test code = POCO2S) 97.9 % 90-100 N BASIC METABOLIC [id number] 15:58:00* Test Item Value Reference Range Interpretation [...] = POCGLU) 179 MG/DL 70-110 H HEMOGLOBIN [id number] 15:58:00* Test Item Value Reference Range Interpretation Comme nts HEMOGLOBIN ABG (test code = HGB/ABG) 9.3 G/DL 12.5-16.9 L [id number] 15:58:00* Test Item Value Reference Range Interpretation Comme nts HEMATOCRIT (test code = HCT/ABG) 27 % 37.5-50.7 L POC LACTIC [id number] 15:58:00* Test Item Value Reference Range Interpretation Comme nts POC LACTIC ACID (test code = POCLAC) 1.0 mmol/l 0.9-1.7 N [id number] 15:15:00* Test Item Value Reference Range Interpretation Comme nts ACT-ISTAT (test code = ACTI) 482 SEC 74-137 H Performed by cer ibrahima vehicle operator at [facility] POC ARTERIAL BLOOD [id number] 15:11:00* Test Item Value Reference Range Interpretation Comme nts POC ARTERIAL BLOOD GAS PH (t est code = POCPHA) 7.397 7.35-7.45 N POC ARTERIAL BLOOD GAS PCO2 (test code = ZAWARK4U) 38.1 mmHg 35.0-45 N POC TCO2 ARTERIAL (test code = POCTCO2) 24.6 POC ARTERIAL BLOOD GAS PO2 ( test code = OPFTB5M) 279.7 mmHg 80-100.0 HH POC HCO3 ARTERIAL (test code = ZXLNOU0V) 23.4 MMOL/L 22.0-26.0 N POC BASE EXCESS (test code = POCBEA) -1.2 MMOL/L -4.0-4.0 N POC O2 SATURATION (test code = POCO2S) 99.9 % 90-100 N BASIC METABOLIC [id number] 15:11:00* Test Item Value Reference Range Interpretation [...] = POCGLU) 174 MG/DL 70-110 H HEMOGLOBIN [id number] 15:11:00* Test Item Value Reference Range Interpretation Comme nts HEMOGLOBIN ABG (test code = HGB/ABG) 9.5 G/DL 12.5-16.9 L [id number] 15:11:00* Test Item Value Reference Range Interpretation Comme nts HEMATOCRIT (test code = HCT/ABG) 28 % 37.5-50.7 L POC LACTIC [id number] 15:11:00* Test Item Value Reference Range Interpretation Comme nts POC LACTIC ACID (test code = POCLAC) 0.6 mmol/l 0.9-1.7 L [id number] 14:47:00* Test Item Value Reference Range Interpretation Comme nts ACT-ISTAT (test code = ACTI) > 1000 SEC 74-137 H Performed by cer tified vehicle operator at [facility] POC ARTERIAL BLOOD [id number] 14:31:00* Test Item Value Reference Range Interpretation Comme nts POC ARTERIAL BLOOD GAS PH (t est code = POCPHA) 7.380 7.35-7.45 N POC ARTERIAL BLOOD GAS PCO2 (test code = NXKCUT5Y) 41.5 mmHg 35.0-45 N POC TCO2 ARTERIAL (test code = POCTCO2) 25.8 POC ARTERIAL BLOOD GAS PO2 ( test code = YZPHD5W) 381.1 mmHg 80-100.0 HH POC HCO3 ARTERIAL (test code = XPYBOX8T) 24.6 MMOL/L 22.0-26.0 N POC BASE EXCESS (test code = POCBEA) -0.6 MMOL/L -4.0-4.0 N POC O2 SATURATION (test code = POCO2S) 100.0 % 90-100 N BASIC METABOLIC [id number] 14:31:00* Test Item Value Reference Range Interpretation [...] = POCGLU) 155 MG/DL 70-110 H HEMOGLOBIN [id number] 14:31:00* Test Item Value Reference Range Interpretation Comme nts HEMOGLOBIN ABG (test code = HGB/ABG) 9.7 G/DL 12.5-16.9 L [id number] 14:31:00* Test Item Value Reference Range Interpretation Comme nts HEMATOCRIT (test code = HCT/ABG) 29 % 37.5-50.7 L POC LACTIC [id number] 14:31:00* Test Item Value Reference Range Interpretation Comme nts POC LACTIC ACID (test code = POCLAC) < 0.3 mmol/l 0.9-1.7 L [id number] 14:05:00* Test Item Value Reference Range Interpretation Comme nts ACT-ISTAT (test code = ACTI) 677 SEC 74-137 H Performed by cer tified vehicle operator at [facility] POC ARTERIAL BLOOD [id number] 13:54:00* Test Item Value Reference Range Interpretation Comme nts POC ARTERIAL BLOOD GAS PH (t est code = POCPHA) 7.257 7.35-7.45 LL POC ARTERIAL BLOOD GAS PCO2 (test code = QPPPVV5H) 45.1 mmHg 35.0-45 H POC TCO2 ARTERIAL (test code = POCTCO2) 21.5 POC ARTERIAL BLOOD GAS PO2 ( test code = EODBI5O) 238.6 mmHg 80-100.0 HH POC HCO3 ARTERIAL (test code = ZOXJWT6B) 20.1 MMOL/L 22.0-26.0 L POC BASE EXCESS (test code = POCBEA) -6.8 MMOL/L -4.0-4.0 L POC O2 SATURATION (test code = POCO2S) 99.7 % 90-100 N BASIC METABOLIC [id number] 13:54:00* Test Item Value Reference Range Interpretation [...] = POCGLU) 165 MG/DL 70-110 H HEMOGLOBIN [id number] 13:54:00* Test Item Value Reference Range Interpretation Comme nts HEMOGLOBIN ABG (test code = HGB/ABG) 11.3 G/DL 12.5-16.9 L [id number] 13:54:00* Test Item Value Reference Range Interpretation Comme nts HEMATOCRIT (test code = HCT/ABG) 33 % 37.5-50.7 L POC LACTIC [id number] 13:54:00* Test Item Value Reference Range Interpretation Comme nts POC LACTIC ACID (test code = POCLAC) 0.3 mmol/l 0.9-1.7 L [id number] 12:38:00* Test Item Value Reference Range Interpretation Comme nts ACT-ISTAT (test code = ACTI) 152 SEC 74-137 H Performed by cer tified vehicle operator at [facility] POC ARTERIAL BLOOD [id number] 12:35:00* Test Item Value Reference Range Interpretation Comme nts POC ARTERIAL BLOOD GAS PH (t est code = POCPHA) 7.331 7.35-7.45 L POC ARTERIAL BLOOD GAS PCO2 (test code = HFWHSX3N) 32.2 mmHg 35.0-45 L POC TCO2 ARTERIAL (test code = POCTCO2) 18.0 POC ARTERIAL BLOOD GAS PO2 ( test code = VSRMO2Z) 252.0 mmHg 80-100.0 HH POC HCO3 ARTERIAL (test code = BLEMKC0I) 17.0 MMOL/L 22.0-26.0 LL POC BASE EXCESS (test code = POCBEA) -8.0 MMOL/L -4.0-4.0 L POC O2 SATURATION (test code = POCO2S) 99.8 % 90-100 N BASIC METABOLIC [id number] 12:35:00* Test Item Value Reference Range Interpretation [...] = POCGLU) 139 MG/DL 70-110 H HEMOGLOBIN [id number] 12:35:00* Test Item Value Reference Range Interpretation Comme nts HEMOGLOBIN ABG (test code = HGB/ABG) 11.0 G/DL 12.5-16.9 L [id number] 12:35:00* Test Item Value Reference Range Interpretation [facility] HEMAT[facility]CRIT (test code = HCT/ABG) 32 % 37.5-50.7 L POC LACTIC [id number] 12:35:00* Test Item Value Reference Range Interpretation Comme [facility] POC LACTIC ACID (test code = POCLAC) < 0.3 mmol/l 0.9-1.7 L COVID 19 Asymptomatic IH [id number] 09:02:00* Test Item Value Reference Range Interpretation Comme nts COVID 19 Asymptomatic IH AG (test code [...] perform moderate, high or waivedcomplexity tests. PROTHROMBIN [id number] 08:56:00* Test Item Value Reference Range Interpretation [facility] PROTHROMBIN TIME PATIENT (test code = [...] Infarction (to prevent recurrent infarct). THROMBOPLASTIN TIME [id number] 08:56:00* Test Item Value Reference Range Interpretation Comme nts THROMBOPLASTIN TIME PARTIAL (test code = PTT) 32.7 Seconds 25.0-39.5 N Therapeutic Rang e: 50.4 - 88.3 Seconds Effective 10/03/2018 GLUCOSE [id number] 07:28:00* Test Item Value Reference Range Interpretation Comme nts GLUCOSE BEDSIDE (test code = GLUBED) 150 MG/DL 70-110 H Performed by cer ibrahima vehicle operator at [facility] BASIC METABOLIC [id number] 03:54:00* Test Item Value Reference Range Interpretation [...] code = CA) 9.2 mg/dL 8.0-10.5 N [id number] 03:54:00* Test Item Value Reference Range Interpretation Comme nts MAGNESIUM (test code = MAG) 1.66 mg/dL 1.6-2.6 N NOTE: NEW NORMAL RANGE CBC W/AUTO [id number] 03:38:00* Test Item Value Reference Range Interpretation [...] NRBC#) 0.00 x10 3/uL 0.0-0.1 N GLUCOSE [id number] 20:42:00* Test Item Value Reference Range Interpretation Comme nts GLUCOSE BEDSIDE (test code = GLUBED) 175 MG/DL 70-110 H Performed by cer tified vehicle operator at [facility] GLUCOSE [id number] 17:46:00* Test Item Value Reference Range Interpretation Comme nts GLUCOSE BEDSIDE (test code = GLUBED) 164 MG/DL 70-110 H Performed by cer tified vehicle operator at [facility] GLUCOSE [id number] 14:42:00* Test Item Value Reference Range Interpretation Comme nts GLUCOSE BEDSIDE (test code = GLUBED) 192 MG/DL 70-110 H Performed by cer tified vehicle operator at [facility] GLUCOSE [id number] 09:02:00* Test Item Value Reference Range Interpretation Comme nts GLUCOSE BEDSIDE (test code = GLUBED) 137 MG/DL 70-110 H Performed by cer tified vehicle operator at [facility] BASIC METABOLIC [id number] 07:06:00* Test Item Value Reference Range Interpretation [...] code = CA) 9.2 mg/dL 8.0-10.5 N [id number] 07:06:00* Test Item Value Reference Range Interpretation Comme nts MAGNESIUM (test code = MAG) 1.64 mg/dL 1.6-2.6 N NOTE: NEW NORMAL RANGE CBC W/AUTO [id number] 06:26:00* Test Item Value Reference Range Interpretation [...] NRBC#) 0.00 x10 3/uL 0.0-0.1 N GLUCOSE [id number] 04:10:00* Test Item Value Reference Range Interpretation Comme nts GLUCOSE BEDSIDE (test code = GLUBED) 214 MG/DL 70-110 H Performed by cer tified vehicle operator at [facility] GLUCOSE [id number] 17:53:00* Test Item Value Reference Range Interpretation Comme nts GLUCOSE BEDSIDE (test code = GLUBED) 212 MG/DL 70-110 H Performed by cer tified vehicle operator at [facility] GLUCOSE [id number] 12:59:00* Test Item Value Reference Range Interpretation Comme nts GLUCOSE BEDSIDE (test code = GLUBED) 214 MG/DL 70-110 H Performed by cer tified vehicle operator at [facility] GLUCOSE [id number] 08:30:00* Test Item Value Reference Range Interpretation Comme nts GLUCOSE BEDSIDE (test code = GLUBED) 158 MG/DL 70-110 H Performed by [facility] tified vehicle operator at [facility] BASIC METABOLIC [id number] 06:47:00* Test Item Value Reference Range Interpretation [...] code = CA) 9.2 mg/dL 8.0-10.5 N [id number] 06:47:00* Test Item Value Reference Range Interpretation Comme nts MAGNESIUM (test code = MAG) 1.60 mg/dL 1.6-2.6 N NOTE: NEW NORMAL RANGE CBC W/AUTO [id number] 06:05:00* Test Item Value Reference Range Interpretation [...] (test c ode = MDIFF) NO GLUCOSE [id number] 20:19:00* Test Item Value Reference Range Interpretation Comme nts GLUCOSE BEDSIDE (test code = GLUBED) 347 MG/DL 70-110 H Performed by cer tified vehicle operator at [facility] GLUCOSE [id number] 16:41:00* Test Item Value Reference Range Interpretation Comme nts GLUCOSE BEDSIDE (test code = GLUBED) 310 MG/DL 70-110 H Performed by cer tified vehicle operator at [facility] GLUCOSE [id number] 11:52:00* Test Item Value Reference Range Interpretation Comme nts GLUCOSE BEDSIDE (test code = GLUBED) 176 MG/DL 70-110 H Performed by cer tified vehicle operator at [facility] GLUCOSE [id number] 10:24:00* Test Item Value Reference Range Interpretation Comme nts GLUCOSE BEDSIDE (test code = GLUBED) 149 MG/DL 70-110 H Performed by cer tified vehicle operator at [facility] GLUCOSE [id number] 06:59:00* Test Item Value Reference Range Interpretation Comme nts GLUCOSE BEDSIDE (test code = GLUBED) 141 MG/DL 70-110 H Performed by cer tified vehicle operator at [facility] BASIC METABOLIC [id number] 04:19:00* Test Item Value Reference Range Interpretation [...] code = CA) 9.2 mg/dL 8.0-10.5 N [id number] 04:19:00* Test Item Value Reference Range Interpretation Comme nts MAGNESIUM (test code = MAG) 1.68 mg/dL 1.6-2.6 N NOTE: NEW NORMAL RANGE CBC W/AUTO [id number] 04:12:00* Test Item Value Reference Range Interpretation [...] NRBC#) 0.00 x10 3/uL 0.0-0.1 N GLUCOSE [id number] 20:48:00* Test Item Value Reference Range Interpretation Comme nts GLUCOSE BEDSIDE (test code = GLUBED) 276 MG/DL 70-110 H Performed by [facility] vehicle [facility] at [facility] GLUCOSE [id number] 17:27:00* Test Item Value Reference Range Interpretation Comme nts GLUCOSE BEDSIDE (test code = GLUBED) 265 MG/DL 70-110 H Performed by [facility] vehicle operator at [facility] GLUCOSE [id number] 12:42:00* Test Item Value Reference Range Interpretation Comme nts GLUCOSE BEDSIDE (test code = GLUBED) 284 MG/DL 70-110 H Performed by [facility] vehicle operator at [facility] - MRI LOW EXT W/O CONT [id number] 12:04:00 [facility] 1965 Sex: M FAX: Domenic Banerjee MD [phone] [place]: St: ADM FAX: Betty Askew DPM [phone] ------ Name: JONG RIVAS [facility] : 1965 Age/S: 58/M [address] [place] [address] Unit #: [id number] Loc: G.3357 [place] [address] Phys: Betty Moe DPM Acct: [id number] Dis Date: Status: ADM IN PHONE #: [phone] Exam Date: 04/23/2023 1034 FAX #: [phone] Reason: WOUND LEFT FOOT, OSTEOMYELITIS EXAMS: CPT CODE: [id number] MRI L[place] EX[place] W/[place] [address] Site ID: [id number] HISTORY: Left foot wound, [...] osteomyelitis type signal changes throughout the 5th metatarsal head and shaft and proximal 2/3rds of the [...] Rainey MD; Betty Moe DPM Technologist: RT Melissa(R)() Trnscrd Date/Time/By: 04/23/2023 (2208) : By: [email or web address] Orig Print D/T: S: 04/23/2023 (4193) PAGE 1 Signed [id number] 10:09:00* Test Item Value Reference Range Interpretation Comme nts MAGNESIUM (test code = MAG) 1.72 mg/dL 1.6-2.6 N NOTE: NEW NORMAL RANGE GLUCOSE [id number] 09:19:00* Test Item Value Reference Range Interpretation Comme nts GLUCOSE BEDSIDE (test code = GLUBED) 143 MG/DL 70-110 H Performed by cer ibrahima vehicle operator at [facility] BASIC METABOLIC [id number] 06:22:00* Test Item Value Reference Range Interpretation [...] CA) 9.4 mg/dL 8.0-10.5 N CBC W/AUTO [id number] 06:06:00* Test Item Value Reference Range Interpretation [...] NRBC#) 0.00 x10 3/uL 0.0-0.1 N VANCOMYCIN [id number] 03:56:00* Test Item Value Reference Range Interpretation Comme nts VANCOMYCIN TROUGH (test code = VANCT) 12.1 mcg/mL 10.0-20.0 N 10-15 mcg/mL - Cellulitis, Urinary Tract Infection. 15-20 mcg/mL - Bacteremia, Infective Endocarditis, Meningitis, Osteomyelitis, Pneumonia, Severe Skin/Soft-Tissue Infection, Spinal Abscess. GLUCOSE [id number] 21:34:00* Test Item Value Reference Range Interpretation Comme nts GLUCOSE BEDSIDE (test code = GLUBED) 197 MG/DL 70-110 H Performed by cer tified vehicle operator at [facility] GLUCOSE [id number] 17:54:00* Test Item Value Reference Range Interpretation Comme nts GLUCOSE BEDSIDE (test code = GLUBED) 182 MG/DL 70-110 H Performed by [facility] [employer] vehicle operator at [facility] - XR KNEE 1 OR 2 V [id number] 14:35:00 [facility] : 1965 Sex: M FAX: Mirian Robin NP [phone] [place]: St: ADM FAX: Domenic Banerjee MD [phone] Name: JONG RIVAS [facility] Rosy Pickering : 1965 Age/S: 58/M [address] [place] [address] Unit #: [id number] Loc: [address] [address] Phys: Mirian Robin NP Acct: [id number] Dis Date: Status: ADM IN PHONE #: [phone] Exam Date: 04/22/2023 1418 FAX #: [phone] Reason: PAIN ON LEFT KNEE EXAMS: CPT CODE: [id number] XR KNEE 1 OR 2 [place] [address] Left knee History: PAIN ON LEFT KNEE Comparison: None at this timeLocation: 5 2 views of the left knee are submitted. No acute fractures and no dislocations are identified. There is fragmentation of the anterior tibial tuberosity The joint space is unremarkable. There is soft tissue swelling anteriorly. IMPRESSION: There is no radiographic evidence of acute bone injury. There is fragmentation of the anterior tibial tuberosity, which could be due to an old orchronic injury. There is anterior soft tissue swelling. at 1435 Reported and signed by: Montana Salomon M.D. CC: Mirian Robin NP; Domenic Rainey MD Technologist: ZENY Steele) Trnscrd Date/Time/By: 04/22/2023 (1435) : By: HelderPMT Orig Print D/T: S: 04/22/2023 (5598) PAGE 1 Signed ReportBASIC METABOLIC [id number] 05:54:00* Test Item Value Reference Range Interpretation [...] CA) 9.0 mg/dL 8.0-10.5 N CBC W/AUTO [id number] 05:20:00* Test Item Value Reference Range Interpretation [...] NRBC#) 0.00 x10 3/uL 0.0-0.1 N GLUCOSE [id number] 21:11:00* Test Item Value Reference Range Interpretation Comme [facility] GLUCOSE BEDSIDE (test code = GLUBED) 232 MG/DL 70-110 H Performed by cer tified vehicle operator at [facility] GLUCOSE [id number] 17:54:00* Test Item Value Reference Range Interpretation Comme [facility] GLUCOSE BEDSIDE (test code = GLUBED) 133 MG/DL 70-110 H Performed by cer tified vehicle operator at [facility] - XR FOOT 3 + V [id number] 14:35:00 [facility] : 1965 Sex: M FAX: Domenic Banejree MD [phone] [place]: St: ADM FAX: Temo Browning MD [phone] ----- Name: JONG RIVAS [facility] : 1965 Age/S: 58/M [address] [place] [address] Unit #: [id number] Loc: G.3357 [place] [address] Phys: Temo Iniguez MD Acct: [id number] Dis Date: Status: ADM IN PHONE #: [phone] Exam Date: 04/21/2023 1423 FAX #: [phone] Reason: left foot ulcer with bone exposure EXAMS:CPT CODE: [id number] XR FOOT 3 + [place] [address] EXAM: - XR FOOT 3 + V [...] Domenic Rainey MD; Temo Iniguez MD Technologist: ZENY Trevizo) Trnscrd Date/Time/By: 04/21/2023 (3840) : By: [email or web address] Orig Print D/T: S: 04/21/2023 (7525) PAGE 1 SignedReportGLUCOSE [id number] 12:58:00* Test Item Value Reference Range Interpretation Comme nts GLUCOSE BEDSIDE (test code = GLUBED) 172 MG/DL 70-110 H Performed by cer tified vehicle operator at [facility] SED RATE [id number] 10:33:00* Test Item Value Reference Range Interpretation Comme nts SED RATE WESTERGREN (test co de = SEDW) 87 mm/hr 0-15 H C REACTIVE [id number] 10:30:00* Test Item Value Reference Range Interpretation Comme nts C REACTIVE PROTEIN (test cod e = CRP) 25.0 mg/L <10.0 H UA RFLX MICR CULT IF [id number] 05:51:00* Test Item Value Reference Range Interpretation [...] RiskForSepsis-no oth srcSpecimen Description: CLEAN CATCHBASIC METABOLIC [id number] 03:13:00* Test Item Value Reference Range Interpretation [...] code = CA) 9.3 mg/dL 8.0-10.5 N [id number] 03:13:00* Test Item Value Reference Range Interpretation Comme nts MAGNESIUM (test code = MAG) 1.61 mg/dL 1.6-2.6 N NOTE: NEW NORMAL RANGE CBC W/AUTO [id number] 02:56:00* Test Item Value Reference Range Interpretation [...] NRBC#) 0.00 x10 3/uL 0.0-0.1 N PROTHROMBIN [id number] 22:47:00* Test Item Value Reference Range Interpretation [...] Infarction (to prevent recurrent infarct). THROMBOPLASTIN TIME [id number] 22:47:00* Test Item Value Reference Range Interpretation Comme [facility] THROMBOPLASTIN TIME PARTIAL (test code = PTT) 39.3 Seconds 25.0-39.5 N Therapeutic Rang e: 50.4 - 88.3 Seconds Effective 10/03/2018 GLUCOSE [id number] 21:27:00* Test Item Value Reference Range Interpretation Comme nts GLUCOSE BEDSIDE (test code = GLUBED) 325 MG/DL 70-110 H Performed by cer tified vehicle operator at [facility] GLUCOSE [id number] 17:40:00* Test Item Value Reference Range Interpretation Comme nts GLUCOSE BEDSIDE (test code = GLUBED) 266 MG/DL 70-110 H Performed by [facility] tified vehicle operator at [facility] - DOP ART SGL LEVEL [id number] 16:22:00 [facility] : 1965 Sex: M Name: JONG RIVAS [facility]y [facility] : 1965 Age/S: 58 / M [address] Unit #: [id number] Loc: [place] [address] Phys: Mirian Robin NP Acct: [id number] Dis Date: Status: ADM INPHONE #: [phone] Exam Date: 2023 1608 FAX #: [phone] Reason: EVALUATE FOR PAD, HX FOOT ULCER EXAMS: CPT CODE: [id number] DOP ART SGL LEVEL ANALI 28558 EXAM: - DOP ART SGL LEVEL ANALI INDIC ATION: EVALUATE FOR PAD, HX FOOT ULCER Technique: [...] Technologist: Radha Francis RDMS(AB) Trnscb Date/Time: 2023 (264) [email or web address] Orig Print D/T: S: 2023 (6971) Probe: PAGE 1 Signed Report- CT CHEST W/O [id number] 13:36:00 [facility] : 1965 Sex: M Name: JONG RIVAS [facility] : 1965 Age/S: 58 / M [address] [place], [place] [address]vd Unit #: [id number] Loc: [place] [address] Phys: Mirian Robin NP Acct: [id number] Dis Date: Status: ADM IN PHONE #: [phone] Exam Date: 2023 1328 FAX #: [phone] Reason: Cardiac Surgery Pre Op EXAMS: CPT CODE: [id number] CT CHEST W/O CONTRAST 67969 EXAM: - CT CHEST W/O CONTRAST INDICATION: Cardiac Surgery Pre Op TECHNIQUE: Volumetric CT acquisition of the chest with no intravenous contrast. Location:T18 One or more of the following dose-optimizing techniques was utilized for this exam: automated exposure control, adjustment of the mA and/or [...] seen. Upper abdomen: Cholelithiasis. Right nephrolithiasis. Soft Tissues:No significant abnormality seen Bones:No acute or destructive osseous process seen. IMPRESSION: No c ardiomegaly or pericardial effusion seen. Aorta does not appear aneurysmal. Please refer to the findings section for additional details. at 1336 Reported and signed by: Ko Montgomery M.D. PAGE 1 Signed Report (CONTINUED) Name: JONG RIVAS [facility] : 1965 Age/S: 58 / M [address] [place] [address] Bl Unit #: [id number] Loc: [place] [address] Phys: Mirian Robin NP Acct: [id number] Dis Date: Status: ADM IN PHONE #: [phone] Exam Date: 2023 1328 FAX #: [phone] Reason: Cardiac Surgery Pre Op EXAMS: CPT CODE: [id number] CT CHEST W/O CONTRAST 22150 (Continued) CC: Miiran Robin NP; Domenic Saunders echnologist:Steven Fang Jr, RT(R)(CT) CTDI: DLP: Trnscb Date/Time: 2023 (1336) [email or web address] Orig Print D/T: S: 2023 (1340) PAGE 2 Signed Report GLUCOSE [id number] 12:46:00* Test Item Value Reference Range Interpretation Comme nts GLUCOSE BEDSIDE (test code = GLUBED) 207 MG/DL 70-110 H Performed by mila bell at [facility] - US EXTREM NON VASC [id number] 12:16:00 [facility] : 1965 Sex: M Name: JONG RIVAS : 1965 Age/S: 58 / M [address] [place] [address] Bl Unit #: [id number] Loc: [place] [address] Phys: Viky Mclaughlin Acct: [id number] Dis Date: Status: ADM IN PHONE #: [phone] Exam Date: 2023 1048 FAX #: [phone] Reason: bilateral vein mapping and marking EXAMS: CPT CODE: [id number] US EXTREM NON VASC COMP 88782 LOCATION: B2 EXAM: Bilateral lower extremity soft tissue ultrasound INDICATION: bilateral vein mapping and marking COMPARISON:None TECHNIQUE: Real time sonography was performed with a variable frequency linear transducer. FINDINGS: Greater saphenous vein diameters were measured bilaterally for vein mapping. All veins were compressible. Right: Proximal thigh: 0.25 cm Mid thigh: 0.24 cm Distal thigh: 0.19 cm Proximal calf:0.19 cm Mid calf: 0.13 cm Distal calf: 0.29 cm Left: Proximal thigh: 0.54 cm Mid thigh: 0.42 cm Distal thigh: 0.41 cm Proximal calf: 0.40 cm Mid calf: 0.36 cm Distal calf: 0.41 cm IMPRESSION: Vein julia surements as above without evidence of intraluminal thrombus. at 1216 Reported and signed by: Sylvain Christina M.D. CC: Domenic Rainey MD; Viky Mclaughlin Technologist: Ariadne Field RDMS(Claudia)(BR) Trnscb Date/Time: 2023 (1216) [email or web address] Orig Print D/T: S: 2023 (1220) Probe: PAGE 1 Signed ReportCOMPREHENSIVE METABOLIC [id number] 11:42:00* Test Item Value Reference Range Interpretation [...] = LDL) 92.0 mg/dL 0-100 N <100 OZXPJOC38 0-129 NEAR OPTIMAL/ABOVE [id number] HVMZBQGBXU510-460 HIGH>DY=640 VERY HIGH*Guidelines provided by the National Cholesterol EducationProgram Adult Treatment Panel III PROTHROMBIN [id number] 11:33:00* Test Item Value Reference Range Interpretation [...] Infarction (to prevent recurrent infarct). THROMBOPLASTIN TIME [id number] 11:33:00* Test Item Value Reference Range Interpretation Comme [facility] THROMBOPLASTIN TIME PARTIAL (test code = PTT) 35.6 Seconds 25.0-39.5 N Therapeutic Rang e: 50.4 - 88.3 Seconds Effective 10/03/2018 HGBA1C%2023 11:31:00* Test Item Value Reference Range Interpretation Comme nts HGBA1C% (test code = HGBA1C%) 8.3 %A1C 4.8-6.0 H - XR CHEST 1 [id number] 10:51:00 [facility] : 1965 Sex: M FAX: Mirian Robin NP [phone] [place]: St: ADM FAX: Domenic Banerjee MD [phone] Name: JONG [facility] : 1965 Age/S: 58/M [address] [place] [address] Unit #: [id number] Loc: G.[id number] [place] [address] Phys: Mirian Robin NP Acct: [id number] Dis Date: Status: ADM IN PHONE #: [phone] Exam Date: 2023 1048 FAX #: [phone] Reason: Cardiac Surgery Pre Op EXAMS: CPT CODE: [id number] XR CHEST 1 V 10231 LOCATION: B2 EXAM: - XR CHEST 1 [...] by: Sylvain Christina M.D. CC: Mirian Robin SCREEN MAKING TECHNICIAN; Domenic Rainey MD Technologist: ZENY Grubbs) Trnscrd Date/Time/By: 2023 ([id number]) : By: [email or web address] Orig Print D/T: S: 2023 (7360) PAGE 1 Signed Report- DUP EXTRACRANIAL [id number] 10:19:00 [facility] : 1965 Sex: M Name: JONG RIVAS [facility] : 1965 Age/S: 58 / M [address] [place] [address] Unit #: [id number] Loc: [place] [address] Phys: Viky Mclaughlin Acct: [id number] Dis Date: Status: ADM IN PHONE #: [phone] Exam Date: 2023 1010 FAX #: [phone] Reason: R/O stenosis EXAMS: CPT CODE: [id number] DUP EXTRACRANIAL ANALI [id number] LOCATION: B2 CAROTID DUPLEX ULTRASOUND HISTORY: R/O stenosis TECHNIQUE: Grayscale real-time B-mode imaging with spectral and color flow Doppler analysis was performed of the neck to evaluate the extracranial carotid system. COMPARISON: None FINDINGS: Degree of stenosis is based on velocity criteria as defined by the Society of Radiologists in Ultr asound Consensus Conference Radiology 2003. Peak systolic velocities [...] 1 Signed Report (CONTINUED) Name: JONG RIVAS [facility] : 1965 Age/S: 58 / M [address] [place] [address] Blvd Unit #: [id number] Loc: [place] [address] Phys: Viky Mclaughlin Acct: [id number] Dis Date: Status: ADM IN PHONE #: [phone] Exam Date: 2023 1010 FAX #: [phone] Reason: R/O stenosis EXAMS: CPT CODE: [id number] DUP EXTRACRANIAL ANALI 80701 (Continued) CC: Domenic Rainey MD; Viky Mclaughlin Technologist: MARY Enamorado)(BR) Trnscb Date/Time: 2023 (1019) [email or web address] Orig Print D/T: S: 2023 (1 022) Probe: PAGE 2 Signed ReportGLUCOSE [id number] 09:13:00* Test Item Value Reference Range Interpretation Comme nts GLUCOSE BEDSIDE (test code = GLUBED) 127 MG/DL 70-110 H Performed by mila alexandra vehicle operator at [facility] B-TYPE NATRIURETIC [id number] 07:00:00* Test Item Value Reference Range Interpretation Comme nts B-TYPE NATRIURETIC PEPTIDE ( test code = BNP) 159.0 PG/ML 0-100 H BASIC METABOLIC [id number] 05:06:00* Test Item Value Reference Range Interpretation [...] CA) 8.7 mg/dL 8.0-10.5 N CBC W/AUTO [id number] 04:57:00* Test Item Value Reference Range Interpretation [...] NRBC#) 0.00 x10 3/uL 0.0-0.1 N GLUCOSE [id number] 20:37:00* Test Item Value Reference Range Interpretation Comme nts GLUCOSE BEDSIDE (test code = GLUBED) 123 MG/DL 70-110 H Performed by cer tified vehicle operator at [facility] ACUTE CARE VENOUS BLOOD [id number] 21:10:57* Test Item Value Reference Range Interpretation Comme nts PH (test code = 5798654857) 7.39 7.32-7.42 PCO2 NATALIYA (test code = 8729231514) 37 See_Comment L [Automated messa ge] The system which generated this result transmitted reference range: 41 - 51 mmHg. The reference range was not used to interpret this result as normal/abnormal. PO2 NATALIYA (test code = 5160963813) 51 See_Comment H [Automated messa ge] The system which generated this result transmitted reference range: 25 - 40 mmHg. The reference range was not used to interpret this result as normal/abnormal. HCO3 NATALIYA (test code = 6054943533) 22 See_Comment L [Automated messa ge] The system which generated this result transmitted reference range: 24 - 28 mEq/L. The reference range was not used to interpret this result as normal/abnormal. AC VBE(BEAKER) (test code = 4165265775) -2.6 mEq/L Lab Interpretation (test code = 79318-8) [facility]-20 20:36:37* Test Item Value Reference Range Interpretation Comme [facility] POCT GLU (test code = 4345875790) 356 mg/dL 70-110 H Lab Interpretation (test cod e = 06922-5) [facility] [[facility]/volume] in Capillary blood 2022-05-20 11:06:00* Test Item Value Reference Range Interpretation Comme [facility] Blood Glucose: mg/dl (test c ode = Blood Glucose: mg/dl) [facility]ics[facility]MO[facility] [id number] 00:00:00* Test Item Value Reference Range Interpretation Comme [facility] A1C (test code = 4548-4) 8.4 HEMOGLOBIN [id number] 00:00:00* Test Item Value Reference Range Interpretation Comme [facility] A1C (test code = 4548-4) 10.9 Notes Date/Time Note Provider Source 2024-10-08 03:31:10 Patient given printed and verbal discharge instructions regarding eye drop use and optho follow-up, encouraged hydration and proper nutrition. Prescriptions provided: 2 Discussed indications, side effects and expected therapeutic response to medications. Advised to take until completed unless adverse reaction occurs - if occurs, discontinue medication and follow up with PCP /seek medical attention. Patient verbalized understanding of instructions. Patient is awake alert oriented, respirations even & unlabored, skin warm & dry, color appropriate for race, moves all extremities well, patient encouraged to follow up with PCP and keep all appropriate appointments as otherwise scheduled or to return to ED for new, prolonged, or worsening of symptoms. No adverse reaction to meds given in ER noted upon discharge. Patient departed ED ambulatory with steady gait, in possession of all belongings. AT Jonnathan Iqbal RN [facility] 2024-10-08 03:09:09 Discharge hold, registration at bedside T [facility] 2024-10-08 02:42:48 Patient back in room from eye room, NAD T [facility] 2024-10-08 00:21:39 Patient ambulatory to eye room with optho. NAD T [facility] 2024-10-08 00:15:00 Jong Rivas is a 59 year old male T [facility] 2024-10-08 00:14:34 Optho at bedside [facility] 2024-10-08 00:01:29 Jong Rivas is a 59 year old male who presents to the ED via EMS from [place] as Optho transport. Pt endorsing 7/10 eye pain in triage. Optho paged, notified of pt arrival to ED/room. ([phone]) AAOx4. VSS. RR E/U. Skin warm and dry. NAD noted. Roomed to 130 for eval. AT La Nena Hook RN [facility] 2024-10-07 23:59:[address] [facility] Emergency Department Note Patient Name: Jong Rivas Date of : 1965 59 year old male Treatment Room: 130/130 Primary Care Physician: Ameya Quevedo Pre- [facility] Patient Escorted by: Self [9] Mode of Arrival: EMS - [place] [51] EMS Treatment Prior to ED Arrival: ED Events Date/Time Event User Comments 10/08/244 Medical Screening Begins SEGUNDO SHEFFIELD MD -- 10/08/24 0005 First Provider Evaluation SEGUNDO SHEFFIELD MD -- Travel and Exposure Screening: Symptoms Does patient have any of these symptoms?: (not recorded) Exposure Screening Has patient had contact with someone with a communicable disease in the last month?: (not recorded) Diseases exposed to:: (not recorded) Is Patient ?: (not recorded) Exposure Date: (not recorded) Chief Complaint Chief Complaint Patient presents with Eye Problem Optho Transfer ED Triage Notes La Nena Hook RN 10/08/2024 00:04 Jong Rivas is a 59 year old male who presents to the ED via EMS from [place] as Optho transport. Pt endorsing 7/10 eye pain in triage. Optho paged, notified of pt arrival to ED/room. ([phone]) AAOx4. VSS. RR E/U. Skin warm and dry. NAD noted. Roomed to 130 for eval. HPI Exam Limited By: none EMS treatment prior to arrival: transport Chief Complaint: Eye Problem (Optho Transfer) Jong Rivas is a 59 year old male without reported significant PMH who presents to the Emergency Department with Eye Problem (Optho Transfer) Last night the patient accidentally dropped a socket ?wrench which struck him on the right eye. He was seen at an OSH and underwent workup including CT which demonstrated a right medial orbit fracture of unclear chronicity. He was transferred accepted by Optho for higher level of care. Additional history/information was obtained by me via: focused EMR review Past Medical History / Immunizations Past Medical History: Diagnosis Date DM (diabetes mellitus) Past Surgical History History reviewed. No pertinent surgical history. Allergies No Known Allergies Social History Substance & Sexual Activity No substance use or sexual activity history on file. Review of Systems Review of Systems Constitutional: Negative for fatigue and fever. Eyes: Positive for pain, redness and visual disturbance. Gastrointestinal: Negative for nausea and vomiting. Musculoskeletal: Negative for neck pain. Neurological: Negative for light-headedness and headaches. Physical Exam Vital signs reviewed, erroneous diastolic read entered, otherwise vs unremarkable Pulse Ox >94% and interpreted by me as normal. ED Triage Vitals [10/08/24 0001] Weight 104.3 kg (230 lb) Actual or estimated Estimated by patient/family report Height 1.753 m (5' 9") BP (!) 133/9 Pulse 76 Resp 20 Temp 36.7 ?C (98 ?F) Temp source Oral SpO2 95 % Measured on Room air Physical Exam Constitutional: General: He is not in acute distress. Appearance: He is well-developed. He is not diaphoretic. HENT: Head: Normocephalic and atraumatic. Eyes: General: Right eye: No discharge. Left eye: No discharge. Pupils: Pupils are equal, round, and reactive to light. Comments: Right conjunctival injection Neck: Trachea: No tracheal deviation. Cardiovascular: Comments: Gross peripheral perfusion intact, no pallor Pulmonary: Effort: Pulmonary effort is normal. No respiratory distress. Breath sounds: No stridor. Abdominal: General: There is no distension. Comments: No gross hernia/mass Musculoskeletal: General: No deformity. Cervical back: Normal range of motion. Skin: General: Skin is warm and dry. Coloration: Skin is not pale. Findings: No rash (no gross rash/lesion noted). Neurological: Mental Status: He is alert and oriented to person, place, and time. 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 Imaging No orders to display Labs Lab Results - No data to display Orders and Treatments No orders of the defined types were placed in this encounter. Orders Placed This Encounter Medications moxifloxacin 0.5 % ophthalmic drops artificial tears,hypromellose, 0.5 % ophthalmic drops HYDROcodone-acetaminophen (NORCO 5) tablet 1 tablet ibuprofen (IBU) tablet 600 mg Procedures Procedures Notes & MDM Medical Decision Making The patient presented to the Emergency Department to be evaluated for an emergency medical condition related to Eye Problem (Optho Transfer) Differential Diagnosis (including but not limited to and not necessarily in order of perceived liklihood): Orbit fracture Corneal foreign body Traumatic iritis Open globe highly unlikely Retrobulbar hematoma highly unlikely Last night the patient accidentally dropped a socket ?wrench which struck him on the right eye. He was seen at an OSH and underwent workup including CT which demonstrated a right medial orbit fracture of unclear chronicity. He was transferred accepted by Optho for higher level of care. OSH documentation reviewed. Ophthalmology consulted. Patient comorbidities/social determinants of health significant for encounter: None identified Additional MDM and clinical information may be found above and in the ED course below. Problems Addressed: Closed fracture of orbit, initial encounter: undiagnosed new problem with uncertain prognosis Foreign body of right cornea, initial encounter: acute illness or injury Amount and/or Complexity of Data Reviewed External Data Reviewed: radiology and notes. Discussion of management or test interpretation with external provider(s): See ED course Risk OTC drugs. Prescription drug management. ED COURSE Vitals: 10/08/24 0001 10/08/249 BP: (!) 133/9 127/84 Pulse: 76 71 Resp: 20 18 Temp: 36.7 ?C (98 ?F) 36.7 ?C (98 ?F) TempSrc: Oral SpO2: 95% 96% Weight: 104.3 kg (230 lb) Height: 1.753 m (5' 9") ED Course as of 10/08/24307Oct 08, 2024248 The patient was evaluated by ophthalmology. A metallic FB was removed from the cornea, recommend started vigamox. They suspect orbit fracture is chronic, either way non-operative (no entrapment). The patient has follow up with his Optho this week, I advised him to keep this appointment. The patient is appropriate for discharge. [SM] 0230 Pending Ophtho recommendations [] ED Course User Index [SM] Segundo Sheffield MD Diagnosis/Impression as of 10/08/24307 Foreign body of right cornea, initial encounter Closed fracture of orbit, initial encounter Assessment: As above Condition: Improved I personally counseled the patient regarding: results and treatment plan including disposition. Return precautions given. Patient agreeable with discharge from the Emergency Department. All questions were answered to the best of my abilities. I have considered medical emergencies that could be related to this patient's clinical presentation, including life and limb threatening disease processes. I am unable to find any evidence that one might be present at this time and the patient's condition is stabilized. In my medical judgment, there is no indication for further evaluation, treatment, or admission of the patient. Comprehensive verbal and written discharge and follow up instructions have been provided to the patient and/or family. Diagnosis/Impression ICD-10-CM 1. Foreign body of right cornea, initial encounter T15.01XA 2. Closed fracture of orbit, initial encounter S02.85XA Disposition/Condition: ED Disposition ED Disposition Discharge Condition Stable Comment -- Discharge Medications: Patient's Medications START taking these medications ARTIFICIAL TEARS,HYPROMELLOSE, 0.5 % OPHTHALMIC DROPS Place 1 Drop in both eyes as needed for Dry eyes. MOXIFLOXACIN 0.5 % OPHTHALMIC DROPS Place 1 Drop in right eye 4 (four) times daily for 7 days. CONTINUE taking these medications which have NOT CHANGED ACETAMINOPHEN-CODEINE (TYLENOL-CODEINE #4) 300-60 MG TABLET Take 1 tablet by mouth every 4 (four) hours as needed for Pain. ATORVASTATIN 40 MG TABLET Take 1 tablet by mouth at bedtime. CHOLECALCIFEROL, VITAMIN D3, 50 MCG (2,000 UNIT) CAPSULE Take 1 capsule by mouth in the morning. GABAPENTIN 600 MG TABLET Take 1 tablet by mouth in the morning and 1 tablet at noon and 1 tablet in the evening. GLIMEPIRIDE 4 MG TABLET Take 1 tablet by mouth daily with breakfast. KETOROLAC 10 MG TABLET Take 1 tablet by mouth every 6 (six) hours as needed for Pain (scale 7-10) for up to 15 doses. MECLIZINE 25 MG TABLET Take 1 tablet by mouth every 6 (six) hours. METFORMIN 1,000 MG TABLET Take 1 tablet by mouth in the morning and 1 tablet in the evening. Take with meals. METOPROLOL TARTRATE 25 MG TABLET Take 1 tablet by mouth in the morning and 1 tablet in the evening. START taking Modified Medications as Prescribed No medications on file STOP taking these medications No medications on file Follow-up: Electronically signed by: Segundo Sheffield MD 10/08/2024 12:05 AM Segundo Sheffield MD 10/08/24 0308 [facility] 2023-11-25 08:52:17 LVM, placed pt on waitlist Cynthia Nicolas [facility] 2023-11-24 16:21:07 Patient was last seen for a fibula fracture . Not sure what deformity this patient is referring to . [facility] 2023-11-24 15:12:40 Does pt need to be overbooked for his deformity? If so, please let PSS know T [facility] 2023-11-24 14:10:24 Patient is needing appointment as he is still having issues after recent visits and has complained of a deformity. Please call to schedule sooner than December 08. Gunner Jason [facility] 2023-10-31 19:56:20 Prescriptions provided Pt verbalized understanding [...] in no apparent distress. Dayan Szymanski RN [facility] 2023-10-31 17:11:56 Patient drove himself to ER and is unsure if he can get a ride home. [facility] 2023-10-31 17:08:54 CC: patient presents to the ER with complaints of neck pain that month ago and has worsened the past three weeks. Patient states he has been taking ibuprofen 800 mg with minimal relief. PMHx: none Awake, alert, oriented, resp reg unlabored, skin warm and dry, color appropriate for race, moves all ext without difficulty, amb without assistance. Appears in no distress. Alexandria Benavidez RN [facility] 2023-05-17 12:38:00 [phone] [place] [address] PATIENT NAME: JONG RIVAS ADMIT DATE: 04/19/23 ACCOUNT NO: [id number] ROOM NO: [id number] AGE: 58 REPORT TYPE: 360 - QUERY RESPONSE DOCUMENT SEX: M ADMITTING PHYSICIAN:Domenic Rainey MD ATTENDING PHYSICIAN:Domenic Rainey MD Provider Query QUERY TEXT: Condition General 360MD Query related questions should be directed to:[facility] Coding Query Helpline Based on your clinical [...] AM at 1238 PATIENT NAME: JONG RIVAS [facility] 2023-05-17 12:38:00 [phone] [address] PATIENT NAME: JONG RIVAS ADMIT DATE: 04/19/23 ACCOUNT NO: [id number] ROOM NO: G.[id number] AGE: 58 REPORT TYPE: 360 - QUERY RESPONSE DOCUMENT SEX: M ADMITTING PHYSICIAN:Domenic Rainey MD ATTENDING PHYSICIAN:Domenic Rainey MD Provider Query QUERY TEXT: Condition General 360MD Query related questions should be directed to:[facility] Coding Query Helpline Based on your clinical [...] Garth Espinoza on 05/09/2023 2:20 AM at 8546 PATIENT NAME: JONG RIVAS [facility] 2023-05-05 14:48:00 [facility] ([facility] Endocrinology Progress Note REPORT#:[id number] REPORT STATUS: Signed REPORT INITIALIZATION DATE:05/05/23 TIME: 1448 PATIENT: JONG RIVAS UNIT #: [id number] ROOM/BED: [facility]-1 : 66 AGE: 58 SEX: M ATTEND: [...] Lispro (HUMALOG) 7 UNIT AC SUBQ Ipratropium [place] (ATROVENT) 500 MCG RTQ2H PRN PRN INH [...] 05/05 05/04 05/04 1114 0659 0346 2016 1720 Chemistry Sodium (134 - 147 mEq/L) 138 [...] % (Auto) (14.0 - 32.0 %) 18.9 [place] % (Auto) (4.8 - 9.0 %) 6.8 Eos % (Auto) (0.3 - 3.7 %) 2.8 Baso % (Auto) (0.0 - 2.0 %) 0.4 Neut # (Auto) (2.0 - 7.6 x10 3/uL) 7.26 Lymph # (Auto) (1.0 - 3.8 x10 3/uL) 1.94 [place]osa # (Auto) (0.1 - 0.8 x10 3/uL) [...] 05/04 05/04 05/04 05/03 1157 0759 0328 2058 Chemistry Sodium (134 - 147 mEq/L) 137 [...] % (Auto) (14.0 - 32.0 %) 18.2 [place] % (Auto) (4.8 - 9.0 %) 8.4 Eos % (Auto) (0.3 - 3.7 %) 2.9 Baso % (Auto) (0.0 - 2.0 %) 0.5 Neut # (Auto) (2.0 - 7.6 x10 3/uL) 5.73 Lymph # (Auto) (1.0 - 3.8 x10 3/uL) 1.50 [place] # (Auto) (0.1 - 0.8 x10 3/uL) [...] RADIOLOGY - XR CHEST 1 V 05/04 0541 Report Impression - Status: SIGNED Entered: 05/04/2023 0746 IMPRESSION: Single AP view of the chest is provided. Support lines and tubes are unchanged. Perihilar alveolar opacities have diminished. There is no pneumothorax. No additional interval change. Impression By: [email or web address] - Oziel Bro M.D. Laboratory Tests: 05/03 05/03 05/02 05/02 1110 0554 9529 1647 Chemistry Sodium (134 - 147 mEq/L) [...] % (Auto) (14.0 - 32.0 %) 20.3 [place] % (Auto) (4.8 - 9.0 %) 7.8 Eos % (Auto) (0.3 - 3.7 %) 2.4 Baso % (Auto) (0.0 - 2.0 %) 0.4 Neut # (Auto) (2.0 - 7.6 x10 3/uL) 5.37 Lymph # (Auto) (1.0 - 3.8 x10 3/uL) 1.59 [place] # (Auto) (0.1 - 0.8 x10 3/uL) [...] RADIOLOGY - XR CHEST 1 V 05/03 7846 Report Impression - Status: SIGNED Entered: 05/03/2023 [...] % (Auto) (14.0 - 32.0 %) 17.5 [place] % (Auto) (4.8 - 9.0 %) 7.4 Eos % (Auto) (0.3 - 3.7 %) 2.8 Baso % (Auto) (0.0 - 2.0 %) 0.6 Neut # (Auto) (2.0 - 7.6 x10 3/uL) 6.44 Lymph # (Auto) (1.0 - 3.8 x10 3/uL) 1.59 [place] # (Auto) (0.1 - 0.8 x10 3/uL) [...] % (Auto) (14.0 - 32.0 %) 14.7 [place] % (Auto) (4.8 - 9.0 %) 8.3 Eos % (Auto) (0.3 - 3.7 %) 2.5 Baso % (Auto) (0.0 - 2.0 %) 0.5 Neut # (Auto) (2.0 - 7.6 x10 3/uL) 6.86 Lymph # (Auto) (1.0 - 3.8 x10 3/uL) 1.38 Mar[place] # (Auto) (0.1 - 0.8 x10 3/uL) [...] (Auto) (14.0 - 32.0 %) 11.3 L [place] % (Auto) (4.8 - 9.0 %) 8.3 Eos % (Auto) (0.3 - 3.7 %) 1.3 Baso % (Auto) (0.0 - 2.0 %) 0.2 Neut # (Auto) (2.0 - 7.6 x10 3/uL) 10.28 H Lymph # (Auto) (1.0 - 3.8 x10 3/uL) 1.49 Mar[place]osa # (Auto) (0.1 - 0.8 x10 3/uL) [...] (Man) (0.0 - 0.1 x10 3/uL) 0.00 11/10 11/10 1706 1413 Chemistry Sodium (134 - 147 [...] RADIOLOGY - XR CHEST 1 V 04/30 746 Report Impression - Status: SIGNED Entered: 04/30/2023 [...] (Auto) (14.0 - 32.0 %) 6.5 L [place] % (Auto) (4.8 - 9.0 %) 8.1 Eos % (Auto) (0.3 - 3.7 %) 0.1 L Baso % (Auto) (0.0 - 2.0 %) 0.1 Neut # (Auto) (2.0 - 7.6 x10 3/uL) 12.28 H Lymph # (Auto) (1.0 - 3.8 x10 3/uL) 0.94 L [place] # (Auto) (0.1 - 0.8 x10 3/uL) [...] tubes. Impression By: [email or web address] Janiya Ordaz D.O. Laboratory Tests: 04/28 04/28 04/28 [...] (Auto) (14.0 - 32.0 %) 4.0 L [place] % (Auto) (4.8 - 9.0 %) 6.7 Eos % (Auto) (0.3 - 3.7 %) 0.0 L Baso % (Auto) (0.0 - 2.0 %) 0.1 Neut # (Auto) (2.0 - 7.6 x10 3/uL) 12.23 H Lymph # (Auto) (1.0 - 3.8 x10 3/uL) 0.55 L [place] # (Auto) (0.1 - 0.8 x10 3/uL) [...] INR (0.8 - 1.2) 1.5 H PTT ([place]) (25.0 - 39.5 Seconds) 32.7 PT Patient/Control [...] % (Auto) (14.0 - 32.0 %) 29.4 [place] % (Auto) (4.8 - 9.0 %) 7.5 Eos % (Auto) (0.3 - 3.7 %) 1.8 Baso % (Auto) (0.0 - 2.0 %) 0.7 Neut # (Auto) (2.0 - 7.6 x10 3/uL) 4.27 Lymph # (Auto) (1.0 - 3.8 x10 3/uL) 2.09 Mar[place] # (Auto) (0.1 - 0.8 x10 3/uL) [...] NASAL Laboratory Tests: 04/26 04/26 04/26 04/25 5063 5658 7115 2028 Chemistry Sodium (134 - 147 mEq/L) [...] % (Auto) (14.0 - 32.0 %) 30.8 [place] % (Auto) (4.8 - 9.0 %) 7.8 Eos % (Auto) (0.3 - 3.7 %) 1.7 Baso % (Auto) (0.0 - 2.0 %) 0.5 Neut # (Auto) (2.0 - 7.6 x10 3/uL) 4.38 Lymph # (Auto) (1.0 - 3.8 x10 3/uL) 2.30 [place] # (Auto) (0.1 - 0.8 x10 3/uL) [...] Tests: 04/25 04/25 04/25 04/24 1126 0772 0224 2002 Chemistry Sodium (134 - 147 [...] (Auto) (14.0 - 32.0 %) 11.5 L [place] % (Auto) (4.8 - 9.0 %) 6.9 Eos % (Auto) (0.3 - 3.7 %) 0.2 L Baso % (Auto) (0.0 - 2.0 %) 0.2 Neut # (Auto) (2.0 - 7.6 x10 3/uL) 9.65 H Lymph # (Auto) (1.0 - 3.8 x10 3/uL) 1.37 [place] # (Auto) (0.1 - 0.8 x10 3/uL) [...] % (Auto) (14.0 - 32.0 %) 21.2 [place] % (Auto) (4.8 - 9.0 %) 7.9 Eos % (Auto) (0.3 - 3.7 %) 1.9 Baso % (Auto) (0.0 - 2.0 %) 0.4 Neut # (Auto) (2.0 - 7.6 x10 3/uL) 5.28 Lymph # (Auto) (1.0 - 3.8 x10 3/uL) 1.65 [place] # (Auto) (0.1 - 0.8 x10 3/uL) [...] % (Auto) (14.0 - 32.0 %) 18.0 [place] % (Auto) (4.8 - 9.0 %) 8.4 Eos % (Auto) (0.3 - 3.7 %) 0.8 Baso % (Auto) (0.0 - 2.0 %) 0.4 Neut # (Auto) (2.0 - 7.6 x10 3/uL) 7.28 Lymph # (Auto) (1.0 - 3.8 x10 3/uL) 1.82 [place] # (Auto) (0.1 - 0.8 x10 3/uL) [...] soft tissue abscess. Impression By: [email or web address] - Aaronlemuel Goldberg M.D. Laboratory Tests: 04/22 04/21 04/21 0421 7 1555 Chemistry Sodium (134 - 147 [...] % (Auto) (14.0 - 32.0 %) 23.5 [place] % (Auto) (4.8 - 9.0 %) 7.4 Eos % (Auto) (0.3 - 3.7 %) 2.0 Baso % (Auto) (0.0 - 2.0 %) 0.6 Neut # (Auto) (2.0 - 7.6 x10 3/uL) 5.66 Lymph # (Auto) (1.0 - 3.8 x10 3/uL) 2.01 [place] # (Auto) (0.1 - 0.8 x10 3/uL) [...] % (Auto) (14.0 - 32.0 %) 27.0 [place] % (Auto) (4.8 - 9.0 %) 8.9 Eos % (Auto) (0.3 - 3.7 %) 1.7 Baso % (Auto) (0.0 - 2.0 %) 0.7 Neut # (Auto) (2.0 - 7.6 x10 3/uL) 4.28 Lymph # (Auto) (1.0 - 3.8 x10 3/uL) 1.89 [place] # (Auto) (0.1 - 0.8 x10 3/uL) [...] pH (5.0 - 7.0) 5.0 Ur Specific Asher (1.005 - 1.030) 1.011 Urine Protein (NEGATIVE) [...] INR (0.8 - 1.2) 1.3 H PTT ([place]) (25.0 - 39.5 Seconds) 39.3 PT Patient/Control [...] dose. Diabetes dietary education. at 1449 RPT #:[id number] END OF REPORT [facility] 2023-05-05 13:12:00 [facility] ([facility]) Cardiology Progress Note REPORT#:[id number] REPORT STATUS: Signed REPORT INITIALIZATION DATE:05/05/23 TIME: 1311 PATIENT: JONG RIVAS UNIT #: [id number] ROOM/BED: [place] [address] : 67 AGE: 58 SEX: M ATTEND: [...] Lispro (HUMALOG) 7 UNIT AC SUBQ Ipratropium [place] (ATROVENT) 500 MCG RTQ2H PRN PRN INH [...] 05/05 05/05 05/05 05/04 05/04 1114 0659 345 2016 1726 Chemistry Sodium (134 - 147 [...] % (Auto) (14.0 - 32.0 %) 18.9 [place] % (Auto) (4.8 - 9.0 %) 6.8 Eos % (Auto) (0.3 - 3.7 %) 2.8 Baso % (Auto) (0.0 - 2.0 %) 0.4 Neut # (Auto) (2.0 - 7.6 x10 3/uL) 7.26 Lymph # (Auto) (1.0 - 3.8 x10 3/uL) 1.94 [place] # (Auto) (0.1 - 0.8 x10 3/uL) [...] to 2 weeks. at 1317 at 1501 RUST #:[id number] END OF REPORT [facility] 2023-05-05 12:10:00 [id number] [address] PATIENT NAME: JONG RIVAS ADMIT DATE: 04/19/23 ACCOUNT NO: [id number] ROOM NO: [facility] AGE: 58 REPORT TYPE: eELECTROCARDIOGRAM REPORT SEX: M ADMITTING PHYSICIAN:Domenic Rainey MD ATTENDING PHYSICIAN:Domenic Rainey MD Order: [id number] Test Reason : QTC MONITORING Test Date/Time [...] Abnormal ECG When compared with ECG of 05-MAY-2023 06:57, Significant changes have occurred Confirmed by CHARISSA GUERRERO MD ([id number]) on 05/19/2023 5:10:52 PM Referred By: Domenic Rainey Confirmed by:CHARISSA GUERRERO MD at 1710 PATIENT NAME: JONG RIVAS [facility] 2023-05-05 11:00:00 [facility] Infectious Dis. Progress Note REPORT#:[id number] REPORT STATUS: Signed REPORT INITIALIZATION DATE:05/05/23 TIME: 1100 PATIENT: JONG RIVAS UNIT #: [id number] ROOM/BED: [place] [address] : 66 AGE: 58 SEX: M ATTEND: [...] Mean Pulse Ox FiO2 05/04-05/05 98.1-98.6 73-80 12- 112-129/62-67 0.0 94-100 Last Documented: Result Date [...] edema noted pitting edema of legs noted Neuro/HARDWOOD SAWYER: alert, 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 Rivas is a 58-year-old male with history of diabetes mellitus type 2, hypertension, prior smoking history, chronic PE, chronic left foot ulcer. He was admitted at [facility] with complaints of chest pain. He had [...] negative x 2. -MRSA screen negative. -Called [facility] earlier. Patient's blood cultures have been negative [...] between 04/21/2023-04/27/2023 Piperacillin-tazobactam between 04/28/2023-05/04/2023) at 1107 RPT #:[id number] END OF REPORT [facility] 2023-05-05 06:57:00 [phone] [place] [address] PATIENT NAME: JONG RIVAS ADMIT DATE: 04/19/23 ACCOUNT NO: [id number] ROOM NO: [id number] AGE: 58 REPORT TYPE: eELECTROCARDIOGRAM REPORT SEX: M ADMITTING PHYSICIAN:Domenic Rainey MD ATTENDING PHYSICIAN:Domenic Rainey MD Order: [id number] Test Reason : QTc monitoring Test Date/Time [...] 20:48, Significant changes have occurred Confirmed by CHARISSA GUERRERO MD ([id number]) on 05/19/2023 5:10:04 PM Referred By: Domenic Rainey Confirmed by:CHARISSA GUERRERO MD at 1710 PATIENT NAME: JONG RIVAS [facility] 2023-05-05 06:15:00 [facility] ([facility]) Cardiothoracic Surgery Prog REPORT#:[id number] REPORT STATUS: Signed REPORT INITIALIZATION DATE:05/05/23 TIME: 614 PATIENT: JONG RIVAS UNIT #: [id number] ROOM/BED: [place] [address] : 66 AGE: 58 SEX: M ATTEND: Domenic Rainey MD ADM AUTHOR: Viky Mclaughlin Physic REPT SERVICE DT/TIME: 05/05/23614 * ALL edits or amendments must be [...] 0.0 05/05 316 O2 Delivery Room air 11/16 0316 Temp 98.2 05/05 031 Pulse 76 05/05 0316 Resp 20 05/05 031 FiO2 21 05/02 1527 O2 Flow Rate [...] range of motion, painless range of motion Neuro/HARDWOOD SAWYER: 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 Patient transferred from [facility], referred to us from Dr. Forde for acute coronary syndrome, unstable angina, ischemic heart disease status post coronary angiogram, with findings of multivessel CAD, EF 50%. 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 Patient reports dyspnea on exertion and mild chest pain x1 year. 04/18/23: Coronary angiogram done at [facility] Left main patent LAD with high-grade and [...] cardiology, cardiovascular surgery, pulmonary at 1412 at 0758 RUST #:[id number] END OF REPORT [facility] 2023-05-04 20:48:00 [phone] [place] [id number] PATIENT NAME: JONG RIVAS ADMIT DATE: 04/19/23 ACCOUNT NO: [id number] ROOM NO: [facility] [place] AGE: 58 REPORT TYPE: eELECTROCARDIOGRAM REPORT SEX: M ADMITTING PHYSICIAN:Domenic Rainey MD ATTENDING PHYSICIAN:Domenic Rainey MD Order: [id number] Test Reason : QTc monitoring Test Date/Time [...] Domenic Rainey Confirmed by:CHARISSA GUERRERO MD at 1709 PATIENT NAME: JONG RIVAS [facility] 2023-05-04 16:50:00 [facility] Endocrinology Progress Note REPORT#:[id number] REPORT STATUS: Signed REPORT INITIALIZATION DATE:05/04/23 TIME: 1649 PATIENT: JONG RIVAS UNIT #: [id number] ROOM/BED: [place] [address] : 66 AGE: 58 SEX: M ATTEND: [...] Lispro (HUMALOG) 7 UNIT AC SUBQ Ipratropium [place] (ATROVENT) 500 MCG RTQ2H PRN PRN INH [...] Tests: 05/04 05/04 05/04 05/03 1157 0759 0327 Chemistry Sodium (134 - 147 mEq/L) 137 [...] % (Auto) (14.0 - 32.0 %) 18.2 [place] % (Auto) (4.8 - 9.0 %) 8.4 Eos % (Auto) (0.3 - 3.7 %) 2.9 Baso % (Auto) (0.0 - 2.0 %) 0.5 Neut # (Auto) (2.0 - 7.6 x10 3/uL) 5.73 Lymph # (Auto) (1.0 - 3.8 x10 3/uL) 1.50 Mar[place]osa # (Auto) (0.1 - 0.8 x10 3/uL) [...] RADIOLOGY - XR CHEST 1 V 05/04 0507 Report Impression - Status: SIGNED Entered: 05/04/2023 [...] % (Auto) (14.0 - 32.0 %) 20.3 [place] % (Auto) (4.8 - 9.0 %) 7.8 Eos % (Auto) (0.3 - 3.7 %) 2.4 Baso % (Auto) (0.0 - 2.0 %) 0.4 Neut # (Auto) (2.0 - 7.6 x10 3/uL) 5.37 Lymph # (Auto) (1.0 - 3.8 x10 3/uL) 1.59 Mar[place]osa # (Auto) (0.1 - 0.8 x10 3/uL) [...] 0646 Report Impression - Status: SIGNED Entered: 05/03/202324 IMPRESSION: No significant change compared to prior [...] % (Auto) (14.0 - 32.0 %) 17.5 [place] % (Auto) (4.8 - 9.0 %) 7.4 Eos % (Auto) (0.3 - 3.7 %) 2.8 Baso % (Auto) (0.0 - 2.0 %) 0.6 Neut # (Auto) (2.0 - 7.6 x10 3/uL) 6.44 Lymph # (Auto) (1.0 - 3.8 x10 3/uL) 1.59 Mar[place] # (Auto) (0.1 - 0.8 x10 3/uL) [...] % (Auto) (14.0 - 32.0 %) 14.7 [place] % (Auto) (4.8 - 9.0 %) 8.3 Eos % (Auto) (0.3 - 3.7 %) 2.5 Baso % (Auto) (0.0 - 2.0 %) 0.5 Neut # (Auto) (2.0 - 7.6 x10 3/uL) 6.86 Lymph # (Auto) (1.0 - 3.8 x10 3/uL) 1.38 Mar[place]osa # (Auto) (0.1 - 0.8 x10 3/uL) [...] 04/30 04/30 04/30 04/29 0809 0221 220 1932 Chemistry Sodium (134 - 147 mEq/L) [...] (Auto) (14.0 - 32.0 %) 11.3 L [place] % (Auto) (4.8 - 9.0 %) 8.3 Eos % (Auto) (0.3 - 3.7 %) 1.3 Baso % (Auto) (0.0 - 2.0 %) 0.2 Neut # (Auto) (2.0 - 7.6 x10 3/uL) 10.28 H Lymph # (Auto) (1.0 - 3.8 x10 3/uL) 1.49 Mariposa # (Auto) (0.1 - 0.8 x10 3/uL) [...] (Auto) (14.0 - 32.0 %) 6.5 L [place] % (Auto) (4.8 - 9.0 %) 8.1 Eos % (Auto) (0.3 - 3.7 %) 0.1 L Baso % (Auto) (0.0 - 2.0 %) 0.1 Neut # (Auto) (2.0 - 7.6 x10 3/uL) 12.28 H Lymph # (Auto) (1.0 - 3.8 x10 3/uL) 0.94 L [place] # (Auto) (0.1 - 0.8 x10 3/uL) [...] 654 Report Impression - Status: SIGNED Entered: 04/29/202314 IMPRESSION: Signs of trace vascular congestion and central pulmonary edema. Suspect trace bilateral pleural effusions. Stable lines and tubes. Impression By: [email or web address] Janiya Ordaz D.O. Laboratory Tests: 04/28 04/28 04/28 [...] (Auto) (14.0 - 32.0 %) 4.0 L [place] % (Auto) (4.8 - 9.0 %) 6.7 Eos % (Auto) (0.3 - 3.7 %) 0.0 L Baso % (Auto) (0.0 - 2.0 %) 0.1 Neut # (Auto) (2.0 - 7.6 x10 3/uL) 12.23 H Lymph # (Auto) (1.0 - 3.8 x10 3/uL) 0.55 L [place] # (Auto) (0.1 - 0.8 x10 3/uL) [...] (0.0 - 0.1 0.00 x10 3/uL) 04/27 04/27 2215 2004 Chemistry POC Glucose (70 - 110 [...] INR (0.8 - 1.2) 1.5 H PTT ([place]) (25.0 - 39.5 Seconds) 32.7 PT Patient/Control [...] % (Auto) (14.0 - 32.0 %) 29.4 [place] % (Auto) (4.8 - 9.0 %) 7.5 Eos % (Auto) (0.3 - 3.7 %) 1.8 Baso % (Auto) (0.0 - 2.0 %) 0.7 Neut # (Auto) (2.0 - 7.6 x10 3/uL) 4.27 Lymph # (Auto) (1.0 - 3.8 x10 3/uL) 2.09 Mar[place] # (Auto) (0.1 - 0.8 x10 3/uL) [...] Tests: 04/26 04/26 04/26 04/25 1123 0714 0559 2028 Chemistry Sodium (134 - 147 mEq/L) [...] % (Auto) (14.0 - 32.0 %) 30.8 [place] % (Auto) (4.8 - 9.0 %) 7.8 Eos % (Auto) (0.3 - 3.7 %) 1.7 Baso % (Auto) (0.0 - 2.0 %) 0.5 Neut # (Auto) (2.0 - 7.6 x10 3/uL) 4.38 Lymph # (Auto) (1.0 - 3.8 x10 3/uL) 2.30 Mar[place] # (Auto) (0.1 - 0.8 x10 3/uL) [...] (Auto) (14.0 - 32.0 %) 11.5 L [place] % (Auto) (4.8 - 9.0 %) 6.9 Eos % (Auto) (0.3 - 3.7 %) 0.2 L Baso % (Auto) (0.0 - 2.0 %) 0.2 Neut # (Auto) (2.0 - 7.6 x10 3/uL) 9.65 H Lymph # (Auto) (1.0 - 3.8 x10 3/uL) 1.37 [place] # (Auto) (0.1 - 0.8 x10 3/uL) [...] % (Auto) (14.0 - 32.0 %) 21.2 [place] % (Auto) (4.8 - 9.0 %) 7.9 Eos % (Auto) (0.3 - 3.7 %) 1.9 Baso % (Auto) (0.0 - 2.0 %) 0.4 Neut # (Auto) (2.0 - 7.6 x10 3/uL) 5.28 Lymph # (Auto) (1.0 - 3.8 x10 3/uL) 1.65 [place] # (Auto) (0.1 - 0.8 x10 3/uL) 0.61 Eos # (Auto) (0.0 - 0.2 x10 3/uL) 0.15 Baso # (Auto) (0.0 - 0.2 x10 3/uL) 0.03 Abs Immat Gran (auto) (0.00 - 0.03 0.05 H x10 3/uL) Immature Gran % (0.0 - 2.0 %) 0.6 Nucleated RBC % (0 - 0 %) 0.0 Nucleated RBCs # (Man) (0.0 - 0.1 0.00 x10 3/uL) 11/04 2019 Chemistry POC Glucose (70 - 110 [...] % (Auto) (14.0 - 32.0 %) 18.0 [place] % (Auto) (4.8 - 9.0 %) 8.4 Eos % (Auto) (0.3 - 3.7 %) 0.8 Baso % (Auto) (0.0 - 2.0 %) 0.4 Neut # (Auto) (2.0 - 7.6 x10 3/uL) 7.28 Lymph # (Auto) (1.0 - 3.8 x10 3/uL) 1.82 [place] # (Auto) (0.1 - 0.8 x10 3/uL) [...] % (Auto) (14.0 - 32.0 %) 23.5 [place] % (Auto) (4.8 - 9.0 %) 7.4 Eos % (Auto) (0.3 - 3.7 %) 2.0 Baso % (Auto) (0.0 - 2.0 %) 0.6 Neut # (Auto) (2.0 - 7.6 x10 3/uL) 5.66 Lymph # (Auto) (1.0 - 3.8 x10 3/uL) 2.01 Mar[place]osa # (Auto) (0.1 - 0.8 x10 3/uL) [...] Report Impression - Status: SIGNED Entered: 04/21/2023 7769 IMPRESSION: Interval progression of osteomyelitis involving the fifth metatarsal head and fifth proximal phalanx base about the MTP joint since the prior study from 04/16/2023. Impression By: [email or web address] - Brett Elizaebth M.D. Laboratory Tests: 04/21 04/21 04/21 04/21 [...] % (Auto) (14.0 - 32.0 %) 27.0 Marip[place] % (Auto) (4.8 - 9.0 %) 8.9 Eos % (Auto) (0.3 - 3.7 %) 1.7 Baso % (Auto) (0.0 - 2.0 %) 0.7 Neut # (Auto) (2.0 - 7.6 x10 3/uL) 4.28 Lymph # (Auto) (1.0 - 3.8 x10 3/uL) 1.89 Mariposa # (Auto) (0.1 - 0.8 x10 3/uL) [...] pH (5.0 - 7.0) 5.0 Ur Specific Asher (1.005 - 1.030) 1.011 Urine Protein (NEGATIVE) [...] dose. Diabetes dietary education. at 1652 RPT #:[id number] END OF REPORT [facility] 2023-05-04 13:59:00 [facility] Cardiology Progress Note REPORT#:[id number] REPORT STATUS: Signed REPORT INITIALIZATION DATE:05/04/23 TIME: 1358 PATIENT: JONG RIVAS UNIT #: [id number] ROOM/BED: [place] [address] : 66 AGE: 58 SEX: M ATTEND: [...] Lispro (HUMALOG) 7 UNIT AC SUBQ Ipratropium [place] (ATROVENT) 500 MCG RTQ2H PRN PRN INH [...] % (Auto) (14.0 - 32.0 %) 18.2 [place] % (Auto) (4.8 - 9.0 %) 8.4 Eos % (Auto) (0.3 - 3.7 %) 2.9 Baso % (Auto) (0.0 - 2.0 %) 0.5 Neut # (Auto) (2.0 - 7.6 x10 3/uL) 5.73 Lymph # (Auto) (1.0 - 3.8 x10 3/uL) 1.50 [place] # (Auto) (0.1 - 0.8 x10 3/uL) [...] RADIOLOGY - XR CHEST 1 V 05/04 0526 Report Impression - Status: SIGNED Entered: 05/04/2023 8546 IMPRESSION: Single AP view of the chest [...] high intensity statin. at 1412 at 0310 RPT #:[id number] END OF REPORT [facility] 2023-05-04 13:58:00 [id number] [address] PATIENT NAME: JONG RIVAS ADMIT DATE: 04/19/23 ACCOUNT NO: [id number] ROOM NO: [facility] [place] AGE: 58 REPORT TYPE: eELECTROCARDIOGRAM REPORT SEX: M ADMITTING PHYSICIAN:Domenic Rainey MD ATTENDING PHYSICIAN:Domenic Rainey MD Order: [id number] Test Reason : Monitor QTc Test Date/Time [...] (2121) on 05/19/2023 5:09:01 PM Referred By: Domenic Rainey Confirmed by:CHARISSA GUERRERO MD at 1709 PATIENT NAME: JONG RIVAS [facility] 2023-05-04 12:52:00 [facility] ([facility]) Infectious Dis. Progress Note REPORT#:[id number] REPORT STATUS: Signed REPORT INITIALIZATION DATE:05/04/23 TIME: 1251 PATIENT: JONG RIVAS UNIT #: [id number] ROOM/BED: [facility] [place]3-1 : 66 AGE: 58 SEX: M ATTEND: [...] edema noted pitting edema of legs noted Neuro/HARDWOOD SAWYER: alert, 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 Rivas is a 58-year-old male with history of diabetes mellitus type 2, hypertension, prior smoking history, chronic PE, chronic left foot ulcer. He was admitted at [facility] with complaints of chest pain. He had [...] negative x 2. -MRSA screen negative. -Called [facility] earlier. Patient's blood cultures have been negative [...] patient's pharmacy. -I called patient's pharmacy in [place], [place] and canceled amiodarone. Spoke to the [...] on: Cefepime + metronidazole between 04/21/2023-04/27/2023) at 1258 Addendum 1: 05/04/23 1449 by Kirk Wakefield [...] cannot be discharged on oral ciprofloxacin. at 1451 RPT #:[id number] END OF REPORT [facility] 2023-05-04 09:50:00 [facility] ([facility]) Discharge Summary REPORT#:[id number] REPORT STATUS: Signed REPORT INITIALIZATION DATE:05/04/23 TIME: 949 PATIENT: JONG RIVAS UNIT #: [id number] ROOM/BED: [address] : 66 AGE: 58 SEX: M ATTEND: [...] known prior cardiovascular disease. Patient transferred from [facility], referred to us from Dr. Forde for acute coronary syndrome, unstable angina, ischemic heart disease status post coronary angiogram, with findings of multivessel CAD, EF 50%. 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 Patient reports dyspnea on exertion and mild chest pain x1 year. 04/18/23: Coronary angiogram done at [facility] Left main patent LAD with high-grade and [...] timeframe: In 1-2 weeks at 0955 at 0850 RPT #:[id number] END OF REPORT [facility] 2023-05-04 05:42:00 [facility] Cardiothoracic Surgery Prog REPORT#:[id number] REPORT STATUS: Signed REPORT INITIALIZATION DATE:05/04/23 TIME: 05 PATIENT: JONG RIVAS UNIT #: [id number] ROOM[address]BED: [address] : 66 AGE: 58 SEX: M ATTEND: Domenic Rainey MD ADM AUTHOR: Viky Mclaughlin Physic REPT SERVICE DT/TIME: 05/04/23541 * ALL edits or amendments must be [...] range of motion, painless range of motion Neuro/HARDWOOD SAWYER: 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 Patient transferred from [facility], referred to us from Dr. Forde for acute coronary syndrome, unstable angina, ischemic heart disease status post coronary angiogram, with findings of multivessel CAD, EF 50%. 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 Patient reports dyspnea on exertion and mild chest pain x1 year. 04/18/23: Coronary angiogram done at [facility] Left main patent LAD with high-grade and [...] chest completed Consider surgery this afternoon. Will keeo NPO. Patient seen and Examined with Dr. [...] cardiovascular surgery, pulmonary at 0955 at 1050 RPT #:[id number] END OF REPORT [facility] 2023-05-03 14:38:00 [facility] Endocrinology Progress Note REPORT#:[id number] REPORT STATUS: Signed REPORT INITIALIZATION DATE:05/03/23 TIME: 1437 PATIENT: JONG RIVAS UNIT #: [id number] ROOM/BED: [place] [address] : 66 AGE: 58 SEX: M ATTEND: [...] Lispro (HUMALOG) 7 UNIT AC SUBQ Ipratropium [place] (ATROVENT) 500 MCG RTQ2H PRN PRN INH [...] % (Auto) (14.0 - 32.0 %) 20.3 [place] % (Auto) (4.8 - 9.0 %) 7.8 Eos % (Auto) (0.3 - 3.7 %) 2.4 Baso % (Auto) (0.0 - 2.0 %) 0.4 Neut # (Auto) (2.0 - 7.6 x10 3/uL) 5.37 Lymph # (Auto) (1.0 - 3.8 x10 3/uL) 1.59 [place] # (Auto) (0.1 - 0.8 x10 3/uL) [...] % (Auto) (14.0 - 32.0 %) 17.5 [place] % (Auto) (4.8 - 9.0 %) 7.4 Eos % (Auto) (0.3 - 3.7 %) 2.8 Baso % (Auto) (0.0 - 2.0 %) 0.6 Neut # (Auto) (2.0 - 7.6 x10 3/uL) 6.44 Lymph # (Auto) (1.0 - 3.8 x10 3/uL) 1.59 [place] # (Auto) (0.1 - 0.8 x10 3/uL) [...] % (Auto) (14.0 - 32.0 %) 14.7 [place] % (Auto) (4.8 - 9.0 %) 8.3 Eos % (Auto) (0.3 - 3.7 %) 2.5 Baso % (Auto) (0.0 - 2.0 %) 0.5 Neut # (Auto) (2.0 - 7.6 x10 3/uL) 6.86 Lymph # (Auto) (1.0 - 3.8 x10 3/uL) 1.38 [place] # (Auto) (0.1 - 0.8 x10 3/uL) [...] (Auto) (14.0 - 32.0 %) 11.3 L [place] % (Auto) (4.8 - 9.0 %) 8.3 Eos % (Auto) (0.3 - 3.7 %) 1.3 Baso % (Auto) (0.0 - 2.0 %) 0.2 Neut # (Auto) (2.0 - 7.6 x10 3/uL) 10.28 H Lymph # (Auto) (1.0 - 3.8 x10 3/uL) 1.49 [place] # (Auto) (0.1 - 0.8 x10 3/uL) [...] 0746 Report Impression - Status: SIGNED Entered: 04/30/2023816 IMPRESSION: 1. Expected post-CABG changes with interval [...] (Auto) (14.0 - 32.0 %) 6.5 L [place] % (Auto) (4.8 - 9.0 %) 8.1 Eos % (Auto) (0.3 - 3.7 %) 0.1 L Baso % (Auto) (0.0 - 2.0 %) 0.1 Neut # (Auto) (2.0 - 7.6 x10 3/uL) 12.28 H Lymph # (Auto) (1.0 - 3.8 x10 3/uL) 0.94 L [place] # (Auto) (0.1 - 0.8 x10 3/uL) [...] (Auto) (14.0 - 32.0 %) 4.0 L [place] % (Auto) (4.8 - 9.0 %) 6.7 Eos % (Auto) (0.3 - 3.7 %) 0.0 L Baso % (Auto) (0.0 - 2.0 %) 0.1 Neut # (Auto) (2.0 - 7.6 x10 3/uL) 12.23 H Lymph # (Auto) (1.0 - 3.8 x10 3/uL) 0.55 L [place] # (Auto) (0.1 - 0.8 x10 3/uL) [...] Report Impression - Status: SIGNED Entered: 04/28/2023 3822 IMPRESSION: Lines and tubes, as detailed above. Pulmonary edema and small left pleural effusion again noted. Enlarged cardiomediastinal silhouette. Impression By: DR.SHEAL Janiya Jiménez M.D. RADIOLOGY - XR CHEST 1 V 04/28 1716 Report Impression - Status: SIGNED Entered: 04/28/2023 1719 IMPRESSION: Improved mild bilateral interstitial infiltrates. Trace [...] 152 H 04/27 04/27 04/27 04/27 1233 0850 0633 0322 Blood Gas O2 Saturation (90 - [...] INR (0.8 - 1.2) 1.5 H PTT ([place]) (25.0 - 39.5 Seconds) 32.7 PT Patient/Control [...] % (Auto) (14.0 - 32.0 %) 29.4 [place] % (Auto) (4.8 - 9.0 %) 7.5 Eos % (Auto) (0.3 - 3.7 %) 1.8 Baso % (Auto) (0.0 - 2.0 %) 0.7 Neut # (Auto) (2.0 - 7.6 x10 3/uL) 4.27 Lymph # (Auto) (1.0 - 3.8 x10 3/uL) 2.09 [place] # (Auto) (0.1 - 0.8 x10 3/uL) [...] % (Auto) (14.0 - 32.0 %) 30.8 [place] % (Auto) (4.8 - 9.0 %) 7.8 Eos % (Auto) (0.3 - 3.7 %) 1.7 Baso % (Auto) (0.0 - 2.0 %) 0.5 Neut # (Auto) (2.0 - 7.6 x10 3/uL) 4.38 Lymph # (Auto) (1.0 - 3.8 x10 3/uL) 2.30 [place] # (Auto) (0.1 - 0.8 x10 3/uL) [...] (Auto) (14.0 - 32.0 %) 11.5 L [place] % (Auto) (4.8 - 9.0 %) 6.9 Eos % (Auto) (0.3 - 3.7 %) 0.2 L Baso % (Auto) (0.0 - 2.0 %) 0.2 Neut # (Auto) (2.0 - 7.6 x10 3/uL) 9.65 H Lymph # (Auto) (1.0 - 3.8 x10 3/uL) 1.37 [place] # (Auto) (0.1 - 0.8 x10 3/uL) [...] % (Auto) (14.0 - 32.0 %) 21.2 [place] % (Auto) (4.8 - 9.0 %) 7.9 Eos % (Auto) (0.3 - 3.7 %) 1.9 Baso % (Auto) (0.0 - 2.0 %) 0.4 Neut # (Auto) (2.0 - 7.6 x10 3/uL) 5.28 Lymph # (Auto) (1.0 - 3.8 x10 3/uL) 1.65 [place] # (Auto) (0.1 - 0.8 x10 3/uL) [...] % (Auto) (14.0 - 32.0 %) 18.0 [place] % (Auto) (4.8 - 9.0 %) 8.4 Eos % (Auto) (0.3 - 3.7 %) 0.8 Baso % (Auto) (0.0 - 2.0 %) 0.4 Neut # (Auto) (2.0 - 7.6 x10 3/uL) 7.28 Lymph # (Auto) (1.0 - 3.8 x10 3/uL) 1.82 [place] # (Auto) (0.1 - 0.8 x10 3/uL) [...] % (Auto) (14.0 - 32.0 %) 23.5 [place] % (Auto) (4.8 - 9.0 %) 7.4 Eos % (Auto) (0.3 - 3.7 %) 2.0 Baso % (Auto) (0.0 - 2.0 %) 0.6 Neut # (Auto) (2.0 - 7.6 x10 3/uL) 5.66 Lymph # (Auto) (1.0 - 3.8 x10 3/uL) 2.01 [place] # (Auto) (0.1 - 0.8 x10 3/uL) [...] % (Auto) (14.0 - 32.0 %) 27.0 [place] % (Auto) (4.8 - 9.0 %) 8.9 Eos % (Auto) (0.3 - 3.7 %) 1.7 Baso % (Auto) (0.0 - 2.0 %) 0.7 Neut # (Auto) (2.0 - 7.6 x10 3/uL) 4.28 Lymph # (Auto) (1.0 - 3.8 x10 3/uL) 1.89 [place] # (Auto) (0.1 - 0.8 x10 3/uL) [...] pH (5.0 - 7.0) 5.0 Ur Specific Asher (1.005 - 1.030) 1.011 Urine Protein (NEGATIVE) [...] INR (0.8 - 1.2) 1.3 H PTT ([place]) (25.0 - 39.5 Seconds) 39.3 PT Patient/Control [...] dose. Diabetes dietary education. at 1439 RPT #:[id number] END OF REPORT [facility] 2023-05-03 14:07:00 [facility] ([facility] Heart Failure Progress Note REPORT#:[id number] REPORT STATUS: Signed REPORT INITIALIZATION DATE:05/03/23 TIME: 1407 PATIENT: JONG RIVAS UNIT #: [id number] ROOM/BED: [place] [address] : 66 AGE: 58 SEX: M ATTEND: Domenic Rainey MD ADM AUTHOR: Domingo Irving SCREEN MAKING TECHNICIAN REPT SERVICE DT/TIME: 05/03/23 1030 * ALL edits or amendments must be made on the electronic/computer document * Domingo Irving 05/03/23 1407: Subjective HPI: This is a 58 year old male with a past medical history of DM type II, hypertension PE on anticoagulation, right lung lesion, and hypertension that presented initially to [facility] as an NSTEMI, he underwent angiogram and transffered to [facility] after patient was found to have multivessel [...] Q12HR 04/29 2100 AC 05/03 Monohydrate PO 12/21 2059 0746 Piperacillin Sod/ 3.375 GM Q8H 04/28 1100 AC 05/03 Tazobactam Sod IV 06/09 1059 1212 Sodium Chloride 100 ML Autonomic Drugs Sig/Katie Start time Last Medication Dose Route Stop Time Status Admin Ipratropium [place] 500 MCG RTQ2H PRN PRN 04/30 1438 [...] 1459 0746 Nitroglycerin/ 250 ML ASDIR 04/27 144 AC [...] BEDTIME 04/27 2100 AC 05/01 PO 07/26 2059 1940 Pantoprazole 40 MG DAILY@0600 04/27 1600 [...] HS 04/29 2100 AC 05/03 SUBQ 07/28 2058 1211 Insulin Human Regular 100 UNIT ASDIR [...] APPLIC BID 04/30 900 AC 05/03 NASAL 05/04 210 0747 Silver Sulfadiazine 1 APPLIC Q12HR 04/22 2100 AC 05/03 TOPICAL 07/21 2058 0747 Vitamins Sig/Katie Start time Last Medication Dose Route Stop Time Status Admin Cyanocobalamin 500 MCG DAILY 04/30 900 AC 05/03 PO 07/29 0859 0746 Physical Exam General appearance: alert, awake, oriented, no acute distress, conversational, no respiratory distress Neck: full range of motion, non-tender, no bruit/NL carotids, no JVD Cardiovascular: regular rate and rhythm, no ectopy Respiratory: no distress Abdomen: soft, non-tender Extremities: moves all, edema (pitting edema) Neuro/HARDWOOD SAWYER: alert, oriented X 3, normal speech Skin: [...] 0646 Report Impression - Status: SIGNED Entered: 05/03/202324 IMPRESSION: No significant change compared to prior study. Postcardiac surgical changes and unchanged pulmonary vascular congestion. Mild atelectasis of the lung bases, left greater than right. Impression By: DR.BAGAR Janiya Butler, [place].O Telemetry interpretation: SR rate 72 Diagnosis, Assessment [...] or failing: Cardiac at 1412 at 1522 RUST #:[id number] END OF REPORT [facility] 2023-05-03 12:35:00 [facility] ([facility]) Infectious Dis. Progress Note REPORT#:[id number] REPORT STATUS: Signed REPORT INITIALIZATION DATE:05/03/23 TIME: 1235 PATIENT: JONG RIVAS UNIT #: [id number] ROOM/BED: [place] [address] : 66 AGE: 58 SEX: M ATTEND: [...] edema noted, pitting edema of legs noted Neuro/HARDWOOD SAWYER: alert, 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 Rivas is a 58-year-old male with history of diabetes mellitus type 2, hypertension, prior smoking history, chronic PE, chronic left foot ulcer. He was admitted at [facility] with complaints of chest pain. He had [...] negative x 2. -MRSA screen negative. -Called [facility] earlier. Patient's blood cultures have been negative [...] cardiology, cardiovascular surgery, pulmonary at 1239 RPT #:[id number] END OF REPORT [facility] 2023-05-03 09:27:00 THIS REPORT HAS BEEN APPENDED [id number] [place] [address] PATIENT NAME: JONG RIVAS ADMIT DATE: 04/19/23 ACCOUNT NO: [id number] ROOM NO: [id number] AGE: 58 REPORT TYPE: eECHOCARDIOGRAM REPORT SEX: M ADMITTING PHYSICIAN:Domenic Rainey MD ATTENDING PHYSICIAN:Domenic Rainey MD *[place] [address] Limited Transthoracic Echocardiogram Patient: Jong Rivas Study Date: 05/02/2023 BP: 130 / 78 Location: [facility] URN: [id number] : 1965 Age: 58 Height: 69 in / 175.3 cm Gender: M Weight: 238.5 lb / 108.4 kg BMI/BSA: 35.3 kg/m 2 / 2.34 m 2 *Ordering Physician: * Viky Mclaughlin Physic *Interpreting Physician: * Noemí Nieto *Cable Stretcher And Tester: * Vera Gómez [facility] Indications: R/O EFFUSION. Study data: Transthoracic echocardiogram, limited study. Procedure: Transthoracic echocardiography was performed. Images were obtained using a [employer] cardiac ultrasound machine. Limited 2D and limited [...] 1.83 ---- Pulmonic valve Value 2023 Ref MO v, ED 2.24 m/sec 0.65 ---- MO grad, 20 mm Hg ---- ED Aortic root Value 2023 Ref Root diam 3.8 cm 2.8 <4.4 Conclusions Summary: 1. Left ventricle: Systolic function is normal. The estimated ejection fraction is 55-59%. 2. Pericardium, extracardiac: There is no pericardial effusion. Prepared and electronically signed by Noemí Nieto 05/03/2023 09:27 at 0927 SECTION 2 ADDENDUM 1: 07/06/23 0947 GCD.CPS *[facility] [address] [address] Limited Transthoracic Echocardiogram PATIENT NAME: JONG RIVAS (Report amended [id number]) Patient: Jong Rivas Study Date: 05/02/2023 BP: 130 / 78 [facility] URN: [id number] : 1965 Age: 58 Height: 69 in / 175.3 cm Gender: M Weight: 238.5 lb / 108.4 kg BMI/BSA: 35.3 kg/m 2 / 2.34 m 2 *Ordering Physician: * Viky Mclaughlin *Interpreting Physician: * Job Guerrero MD *Cable Stretcher And Tester: * Vera Gómez [facility] Indications: R/O EFFUSION. Study data: Transthoracic echocardiogram, limited study. Procedure: Transthoracic echocardiography was performed. Images were obtained using a [employer] cardiac ultrasound machine. Limited 2D and limited [...] 2 1.83 Pulmonic valve Value 2023 Ref MO v, ED 2.24 m/sec 0.65 MO grad, ED 20 mm Hg Aortic root Value 2023 Ref Root diam 3.8 cm 2.8 <4.4 Conclusions Summary: 1. Left ventricle: Systolic function is normal. The estimated ejection fraction is 55-59%. 2. Pericardium, extracardiac: There is no pericardial effusion. Amended Job Guerrero MD 07/06/2023 09:46 PATIENT NAME: JONG RIVAS [facility] 2023-05-03 09:23:00 [facility] Cardiology Progress Note REPORT#:[id number] REPORT STATUS: Signed REPORT INITIALIZATION DATE:05/03/23 TIME: 922 PATIENT: JONG RIVAS UNIT #: [id number] ROOM/BED: [place] [address] : 66 AGE: 58 SEX: M ATTEND: [...] Flow FiO2 Mean Ox Delivery Rate 05/03 621 84 31 101/60 79 95 05/03 0601 [...] Lispro (HUMALOG) 7 UNIT AC SUBQ Ipratropium Brussels (ATROVENT) 500 MCG RTQ2H PRN PRN INH [...] TID PO Results Findings/Data: Laboratory Tests 05/03 1929 1647 1140 Chemistry Sodium (134 - [...] - 2.6 mg/dL) 1.72 Laboratory Tests 05/03 224 Hematology WBC (4.5 - 11.0 x10 3/uL) [...] % (Auto) (14.0 - 32.0 %) 20.3 Mariposa % (Auto) (4.8 - 9.0 %) 7.8 Eos % (Auto) (0.3 - 3.7 %) 2.4 Baso % (Auto) (0.0 - 2.0 %) 0.4 Neut # (Auto) (2.0 - 7.6 x10 3/uL) 5.37 Lymph # (Auto) (1.0 - 3.8 x10 3/uL) 1.59 Mariposa # (Auto) (0.1 - 0.8 x10 3/uL) [...] structures of bilateral lower extremities. Impression By: Joyce Smiley M.D. RADIOLOGY - XR CHEST 1 [...] upon discharge. at 0931 at 0310 RPT #:[id number] END OF REPORT [facility] 2023-05-03 06:53:00 [facility] Cardiothoracic Surgery Prog REPORT#:[id number] REPORT STATUS: Signed REPORT INITIALIZATION DATE:05/03/23 TIME: 652 PATIENT: JONG RIVAS UNIT #: [id number] ROOM/BED: [place] [address] : 66 AGE: 58 SEX: M ATTEND: [...] range of motion, painless range of motion Neuro/HARDWOOD SAWYER: 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 Patient transferred from [facility], referred to us from Dr. Forde for acute coronary syndrome, unstable angina, ischemic heart disease status post coronary angiogram, with findings of multivessel CAD, EF 50%. 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 Patient reports dyspnea on exertion and mild chest pain x1 year. 04/18/23: Coronary angiogram done at [facility] Left main patent LAD with high-grade and [...] surgery, pulmonary at 1508 at 1050 RPT #:[id number] END OF REPORT [facility] 2023-05-02 15:04:00 [facility] ([facility] Heart Failure Progress Note REPORT#:[id number] REPORT STATUS: Signed REPORT INITIALIZATION DATE:05/02/23 TIME: 150 PATIENT: JONG RIVAS UNIT #: [id number] ROOM/BED: [place] [address] : 66 AGE: 58 SEX: M ATTEND: Domenic Rainey MD ADM AUTHOR: Domingo Irving SCREEN MAKING TECHNICIAN REPT SERVICE DT/TIME: 05/02/23 1504 * ALL edits or amendments must be made on the electronic/computer document * See Addendum Domingo Irving 05/02/23 1504: Subjective HPI: This is a 58 year old male with a past medical history of DM type II, hypertension PE on anticoagulation, right lung lesion, and hypertension that presented initially to [facility] as an NSTEMI, he underwent angiogram and transffered to [facility] after patient was found to have multivessel [...] Dose Route Stop Time Status Admin Ipratropium Brussels 500 MCG RTQ2H PRN PRN 04/30 1438 AC INH 07/29 1437 Epinephrine 4 MG ASDIR 04/27 1445 AC Dextrose/Water 246 ML IV 07/26 1444 Norepinephrine 250 ML TITRATE 04/27 1445 AC Bitartrate IV 07/26 1444 Blood Formation,Coagulation Sig/Katie Start time Last Medication Dose Route Stop Time Status Admin Ferrous Sulfate 325 MG DAILY 04/30 900 AC 05/02 PO 07/29 0759 0802 Clopidogrel Bisulfate 75 MG DAILY 04/28 900 AC 05/02 PO 07/27 0859 0802 Cardiovascular Drugs Sig/Katie Start time Last Medication Dose Route Stop Time Status Admin Atorvastatin Calcium 40 MG 2100 04/28 2100 AC 05/01 PO 05/28 205 1939 Metoprolol Tartrate 12.5 MG Q12HR 04/27 2100 AC 05/02 PO 07/26 2059 0802 Amiodarone HCl 200 MG TID 04/27 1500 AC 05/02 PO 07/26 1459 0803 Nitroglycerin/ 250 ML ASDIR 04/27 1445 AC Dextrose IV 07/26 1444 Central Nervous System Agents Sig/Katie Start time Last Medication Dose Route Stop Time Status Admin Magnesium Sulfate 50 ML ONCE ONE 05/01 1845 DC IV 05/01 2044 Aspirin 81 MG DAILY 04/27 2038 AC 05/02 PO 07/26 203 0802 Acetaminophen 650 MG Q4H PRN PRN [...] BEDTIME 05/01 2100 AC 05/01 SUBQ 07/30 2059 1942 Insulin Human Lispro 7 UNIT AC 05/01 1630 AC 05/02 SUBQ 07/30 1629 1150 Insulin Human Lispro 0 AC HS 04/29 2100 AC 05/02 SUBQ 07/28 205 1149 Insulin Human Regular 100 UNIT ASDIR [...] BID 04/30 900 AC 05/02 NASAL 05/04 210 0804 Silver Sulfadiazine 1 APPLIC Q12HR 04/22 2100 AC 05/02 TOPICAL 07/21 2058 0946 Vitamins Sig/Katie Start time Last Medication Dose Route Stop Time Status Admin Cyanocobalamin 500 MCG DAILY 04/30 0900 AC 05/02 PO 07/29 0859 0802 Physical Exam General appearance: alert, awake, oriented, no acute distress, pleasant, conversational, no respiratory distress Cardiovascular: regular rate and rhythm, no ectopy Respiratory: no distress Abdomen: soft, non-tender Neuro/HARDWOOD SAWYER: alert, oriented X 3, normal speech Skin: [...] this AM was 2.5 at 1523 RPT #:[id number] END OF REPORT [facility] 2023-05-02 14:00:00 [facility] ([facility]) Critical Care Progress Note REPORT#:[id number] REPORT STATUS: Signed REPORT INITIALIZATION DATE:05/02/23 TIME: 1400 PATIENT: JONG RIVAS UNIT #: [id number] ROOM/BED: [place] [address] : 66 AGE: 58 SEX: M ATTEND: [...] (Semglee) 18 UNIT BEDTIME SUBQ (DC) Ipratropium Brussels (ATROVENT) 500 MCG RTQ2H PRN PRN INH [...] non-tender, normal bowel sounds Extremities: moves all Neuro/HARDWOOD SAWYER: alert, oriented X 3, CNII-XII intact, normal [...] % (Auto) (14.0 - 32.0 %) 17.5 Mariposa % (Auto) (4.8 - 9.0 %) 7.4 Eos % (Auto) (0.3 - 3.7 %) 2.8 Baso % (Auto) (0.0 - 2.0 %) 0.6 Neut # (Auto) (2.0 - 7.6 x10 3/uL) 6.44 Lymph # (Auto) (1.0 - 3.8 x10 3/uL) 1.59 Mariposa # (Auto) (0.1 - 0.8 x10 3/uL) [...] prophylaxis. Continue antibiotic per ID recommendation. 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 Case was discussed at bedside with the [...] with the nursing staff, respiratory therapist, pharmacist, transition social worker and cardiothoracic surgery team. 05/01 Pain is [...] 1: 05/02/23 1436 by Carole Mccauley MD [facility] above plan is for date 05/02 at 1437 RPT #:[id number] END OF REPORT [facility] 2023-05-02 13:20:00 [facility] ([facility]) Endocrinology Progress Note REPORT#:[id number] REPORT STATUS: Signed REPORT INITIALIZATION DATE:05/02/23 TIME: 1320 PATIENT: JONG RIVAS UNIT #: [id number] [address] AGE: 58 SEX: M ATTEND: Domenic [...] (Semglee) 18 UNIT BEDTIME SUBQ (DC) Ipratropium Brussels (ATROVENT) 500 MCG RTQ2H PRN PRN INH [...] % (Auto) (14.0 - 32.0 %) 17.5 Mariposa % (Auto) (4.8 - 9.0 %) 7.4 Eos % (Auto) (0.3 - 3.7 %) 2.8 Baso % (Auto) (0.0 - 2.0 %) 0.6 Neut # (Auto) (2.0 - 7.6 x10 3/uL) 6.44 Lymph # (Auto) (1.0 - 3.8 x10 3/uL) 1.59 Mariposa # (Auto) (0.1 - 0.8 x10 3/uL) [...] significant change from the prior Impression By: HelderAGDevan - Anu Amador M.D. ULTRASOUND - DUP [...] % (Auto) (14.0 - 32.0 %) 14.7 [place] % (Auto) (4.8 - 9.0 %) 8.3 Eos % (Auto) (0.3 - 3.7 %) 2.5 Baso % (Auto) (0.0 - 2.0 %) 0.5 Neut # (Auto) (2.0 - 7.6 x10 3/uL) 6.86 Lymph # (Auto) (1.0 - 3.8 x10 3/uL) 1.38 Mariposa # (Auto) (0.1 - 0.8 x10 3/uL) [...] (Auto) (14.0 - 32.0 %) 11.3 L [place] % (Auto) (4.8 - 9.0 %) 8.3 Eos % (Auto) (0.3 - 3.7 %) 1.3 Baso % (Auto) (0.0 - 2.0 %) 0.2 Neut # (Auto) (2.0 - 7.6 x10 3/uL) 10.28 H Lymph # (Auto) (1.0 - 3.8 x10 3/uL) 1.49 Mariposa # (Auto) (0.1 - 0.8 x10 3/uL) [...] Laboratory Tests: 04/29 04/29 04/29 04/29 04/29 170 1413 1207 1007 0802 Chemistry Sodium (134 [...] (Auto) (14.0 - 32.0 %) 6.5 L [place] % (Auto) (4.8 - 9.0 %) 8.1 Eos % (Auto) (0.3 - 3.7 %) 0.1 L Baso % (Auto) (0.0 - 2.0 %) 0.1 Neut # (Auto) (2.0 - 7.6 x10 3/uL) 12.28 H Lymph # (Auto) (1.0 - 3.8 x10 3/uL) 0.94 L Mar[place]osa # (Auto) (0.1 - 0.8 x10 3/uL) [...] 04/28 04/28 04/28 04/27 0211 0201 0104 2235 Blood Gas Puncture Site Art Line Art [...] (Auto) (14.0 - 32.0 %) 4.0 L [place] % (Auto) (4.8 - 9.0 %) 6.7 Eos % (Auto) (0.3 - 3.7 %) 0.0 L Baso % (Auto) (0.0 - 2.0 %) 0.1 Neut # (Auto) (2.0 - 7.6 x10 3/uL) 12.23 H Lymph # (Auto) (1.0 - 3.8 x10 3/uL) 0.55 L Mar[place] # (Auto) (0.1 - 0.8 x10 3/uL) [...] Report Impression - Status: SIGNED Entered: 04/28/2023 175 IMPRESSION: Improved mild bilateral interstitial infiltrates. Trace [...] % (Auto) (14.0 - 32.0 %) 29.4 Mariposa % (Auto) (4.8 - 9.0 %) 7.5 Eos % (Auto) (0.3 - 3.7 %) 1.8 Baso % (Auto) (0.0 - 2.0 %) 0.7 Neut # (Auto) (2.0 - 7.6 x10 3/uL) 4.27 Lymph # (Auto) (1.0 - 3.8 x10 3/uL) 2.09 Mar[place]osa # (Auto) (0.1 - 0.8 x10 3/uL) [...] Tests: 04/26 04/26 04/26 04/25 1123 0714 0575 2028 Chemistry Sodium (134 - 147 mEq/L) [...] % (Auto) (14.0 - 32.0 %) 30.8 Mariposa % (Auto) (4.8 - 9.0 %) 7.8 Eos % (Auto) (0.3 - 3.7 %) 1.7 Baso % (Auto) (0.0 - 2.0 %) 0.5 Neut # (Auto) (2.0 - 7.6 x10 3/uL) 4.38 Lymph # (Auto) (1.0 - 3.8 x10 3/uL) 2.30 Mariposa # (Auto) (0.1 - 0.8 x10 3/uL) [...] (Auto) (14.0 - 32.0 %) 11.5 L [place] % (Auto) (4.8 - 9.0 %) 6.9 Eos % (Auto) (0.3 - 3.7 %) 0.2 L Baso % (Auto) (0.0 - 2.0 %) 0.2 Neut # (Auto) (2.0 - 7.6 x10 3/uL) 9.65 H Lymph # (Auto) (1.0 - 3.8 x10 3/uL) 1.37 Mar[place]osa # (Auto) (0.1 - 0.8 x10 3/uL) [...] % (Auto) (14.0 - 32.0 %) 21.2 [place] % (Auto) (4.8 - 9.0 %) 7.9 Eos % (Auto) (0.3 - 3.7 %) 1.9 Baso % (Auto) (0.0 - 2.0 %) 0.4 Neut # (Auto) (2.0 - 7.6 x10 3/uL) 5.28 Lymph # (Auto) (1.0 - 3.8 x10 3/uL) 1.65 Mar[place]osa # (Auto) (0.1 - 0.8 x10 3/uL) [...] % (Auto) (14.0 - 32.0 %) 18.0 [place] % (Auto) (4.8 - 9.0 %) 8.4 Eos % (Auto) (0.3 - 3.7 %) 0.8 Baso % (Auto) (0.0 - 2.0 %) 0.4 Neut # (Auto) (2.0 - 7.6 x10 3/uL) 7.28 Lymph # (Auto) (1.0 - 3.8 x10 3/uL) 1.82 Mariposa # (Auto) (0.1 - 0.8 x10 3/uL) [...] % (Auto) (14.0 - 32.0 %) 23.5 [place] % (Auto) (4.8 - 9.0 %) 7.4 Eos % (Auto) (0.3 - 3.7 %) 2.0 Baso % (Auto) (0.0 - 2.0 %) 0.6 Neut # (Auto) (2.0 - 7.6 x10 3/uL) 5.66 Lymph # (Auto) (1.0 - 3.8 x10 3/uL) 2.01 Mariposa # (Auto) (0.1 - 0.8 x10 3/uL) [...] % (Auto) (14.0 - 32.0 %) 27.0 [place] % (Auto) (4.8 - 9.0 %) 8.9 Eos % (Auto) (0.3 - 3.7 %) 1.7 Baso % (Auto) (0.0 - 2.0 %) 0.7 Neut # (Auto) (2.0 - 7.6 x10 3/uL) 4.28 Lymph # (Auto) (1.0 - 3.8 x10 3/uL) 1.89 Mariposa # (Auto) (0.1 - 0.8 x10 3/uL) [...] pH (5.0 - 7.0) 5.0 Ur Specific Asher (1.005 - 1.030) 1.011 Urine Protein (NEGATIVE) [...] INR (0.8 - 1.2) 1.3 H PTT ([place]) (25.0 - 39.5 Seconds) 39.3 PT Patient/Control [...] dose. Diabetes dietary education. at 1320 RPT #:[id number] END OF REPORT [facility] 2023-05-02 12:36:00 [facility] Infectious Dis. Progress Note REPORT#:[id number] REPORT STATUS: Signed REPORT INITIALIZATION DATE:05/02/23 TIME: 123 PATIENT: JONG RIVAS UNIT #: [id number] ROOM/BED: [place] [address] : 66 AGE: 58 SEX: M ATTEND: [...] for exam bilateral legs pitting edema noted Neuro/HARDWOOD SAWYER: alert, 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 Rivas is a 58-year-old male with history of diabetes mellitus type 2, hypertension, prior smoking history, chronic PE, chronic left foot ulcer. He was admitted at [facility] with complaints of chest pain. He had [...] negative x 2. -MRSA screen negative. -Called [facility] earlier. Patient's blood cultures have been negative [...] on: Cefepime + metronidazole between 04/21/2023-04/27/2023) at 1755 RPT #:[id number] END OF REPORT [facility] 2023-05-02 11:24:00 [facility] ([facility]) Cardiology Progress Note REPORT#:[id number] REPORT STATUS: Signed REPORT INITIALIZATION DATE:05/02/23 TIME: 1123 PATIENT: JNOG RIVAS UNIT #: [id number] ROOM/BED: [facility] : 66 AGE: 58 SEX: M ATTEND: [...] Rate 05/02 0955 74 16 98 05/02 0900 74 22 130/78 98 96 05/02 0803 [...] (Semglee) 18 UNIT BEDTIME SUBQ (DC) Ipratropium [place] (ATROVENT) 500 MCG RTQ2H PRN PRN INH [...] % (Auto) (14.0 - 32.0 %) 17.5 [place] % (Auto) (4.8 - 9.0 %) 7.4 Eos % (Auto) (0.3 - 3.7 %) 2.8 Baso % (Auto) (0.0 - 2.0 %) 0.6 Neut # (Auto) (2.0 - 7.6 x10 3/uL) 6.44 Lymph # (Auto) (1.0 - 3.8 x10 3/uL) 1.59 Mariposa # (Auto) (0.1 - 0.8 x10 3/uL) [...] Impression By: [email or web address] - Anu Amador M.D. Free Text Obj Notes Free Text [...] upon discharge. at 1127 at 0305 RPT #:[id number] END OF REPORT [facility] 2023-05-02 07:09:00 [facility] Cardiothoracic Surgery Prog REPORT#:[id number] REPORT STATUS: Signed REPORT INITIALIZATION DATE:05/02/23 TIME: 07 PATIENT: JONG RIVAS UNIT #: [id number] [address]BED: [address] : [birth year] AGE: 58 SEX: M ATTEND: Doemnic Rainey MD ADM AUTHOR: Viky Mclaughlin Physic [...] Ox 95 05/02 501 B/P 114/60 05/02 050 B/P Mean 81 05/02 050 Pulse 82 05/02 501 Resp 28 05/02 [...] range of motion, painless range of motion Neuro/HARDWOOD SAWYER: 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 Patient transferred from [facility], referred to us from Dr. Forde for acute coronary syndrome, unstable angina, ischemic heart disease status post coronary angiogram, with findings of multivessel CAD, EF 50%. 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 Patient reports dyspnea on exertion and mild chest pain x1 year. 04/18/23: Coronary angiogram done at [facility] Left main patent LAD with high-grade and [...] the chest completed Consider surgery this afternoon. yRan brown NPO. Patient seen and Examined with [...] surgery, pulmonary at 1403 at 1725 RPT #:[id number] END OF REPORT [facility] 2023-05-02 06:58:00 [facility] ([facility]) Rehab Progress Note REPORT#:[id number] REPORT STATUS: Signed REPORT INITIALIZATION DATE:05/02/23 TIME: 06 PATIENT: JONG RIVAS UNIT #: [id number] ROOM/BED: [place] [address] : 67 AGE: 58 SEX: M ATTEND: [...] (Semglee) 18 UNIT BEDTIME SUBQ (DC) Ipratropium [place] (ATROVENT) 500 MCG RTQ2H PRN PRN INH [...] - general: joints normal, normal muscle mass Neuro/HARDWOOD SAWYER: alert, oriented X 3, CNII-XII intact Results [...] % (Auto) (14.0 - 32.0 %) 17.5 [place] % (Auto) (4.8 - 9.0 %) 7.4 Eos % (Auto) (0.3 - 3.7 %) 2.8 Baso % (Auto) (0.0 - 2.0 %) 0.6 Neut # (Auto) (2.0 - 7.6 x10 3/uL) 6.44 Lymph # (Auto) (1.0 - 3.8 x10 3/uL) 1.59 [place] # (Auto) (0.1 - 0.8 x10 3/uL) [...] pulmonary Rehab attestation: . at 1646 RPT #:[id number] END OF REPORT [facility] 2023-05-01 14:56:00 [facility] Endocrinology Progress Note REPORT#:[id number] REPORT STATUS: Signed REPORT INITIALIZATION DATE:05/01/23 TIME: 1455 PATIENT: JONG RIVAS UNIT #: [id number] ROOM/BED: [place] [address] : 66 AGE: 58 SEX: M ATTEND: Domenic Rainey MD ADM AUTHOR: Vlad Lay MD REPT SERVICE DT/TIME: 05/01/23 145 * ALL edits or amendments must be [...] Glargine (Semglee) 18 UNIT BEDTIME SUBQ Ipratropium [place] (ATROVENT) 500 MCG RTQ2H PRN PRN INH [...] % (Auto) (14.0 - 32.0 %) 14.7 [place] % (Auto) (4.8 - 9.0 %) 8.3 Eos % (Auto) (0.3 - 3.7 %) 2.5 Baso % (Auto) (0.0 - 2.0 %) 0.5 Neut # (Auto) (2.0 - 7.6 x10 3/uL) 6.86 Lymph # (Auto) (1.0 - 3.8 x10 3/uL) 1.38 [place] # (Auto) (0.1 - 0.8 x10 3/uL) [...] (Auto) (14.0 - 32.0 %) 11.3 L [place] % (Auto) (4.8 - 9.0 %) 8.3 Eos % (Auto) (0.3 - 3.7 %) 1.3 Baso % (Auto) (0.0 - 2.0 %) 0.2 Neut # (Auto) (2.0 - 7.6 x10 3/uL) 10.28 H Lymph # (Auto) (1.0 - 3.8 x10 3/uL) 1.49 [place]osa # (Auto) (0.1 - 0.8 x10 3/uL) [...] (Auto) (14.0 - 32.0 %) 6.5 L [place] % (Auto) (4.8 - 9.0 %) 8.1 Eos % (Auto) (0.3 - 3.7 %) 0.1 L Baso % (Auto) (0.0 - 2.0 %) 0.1 Neut # (Auto) (2.0 - 7.6 x10 3/uL) 12.28 H Lymph # (Auto) (1.0 - 3.8 x10 3/uL) 0.94 L [place] # (Auto) (0.1 - 0.8 x10 3/uL) [...] (Auto) (14.0 - 32.0 %) 4.0 L [place] % (Auto) (4.8 - 9.0 %) 6.7 Eos % (Auto) (0.3 - 3.7 %) 0.0 L Baso % (Auto) (0.0 - 2.0 %) 0.1 Neut # (Auto) (2.0 - 7.6 x10 3/uL) 12.23 H Lymph # (Auto) (1.0 - 3.8 x10 3/uL) 0.55 L [place] # (Auto) (0.1 - 0.8 x10 3/uL) [...] Report Impression - Status: SIGNED Entered: 04/28/2023 1368 IMPRESSION: Lines and tubes, as detailed above. Pulmonary edema and small left pleural effusion again noted. Enlarged cardiomediastinal silhouette. Impression By: DR.SHEAL Janiya Jiménez, M.D. RADIOLOGY - XR CHEST 1 V 04/28 1716 Report Impression - Status: SIGNED Entered: 04/28/2023 7922 IMPRESSION: Improved mild bilateral interstitial infiltrates. Trace [...] 152 H 04/27 04/27 04/27 04/27 1233 0806 0699 0322 Blood Gas O2 Saturation (90 - [...] INR (0.8 - 1.2) 1.5 H PTT ([place]) (25.0 - 39.5 Seconds) 32.7 PT Patient/Control [...] % (Auto) (14.0 - 32.0 %) 29.4 [place] % (Auto) (4.8 - 9.0 %) 7.5 Eos % (Auto) (0.3 - 3.7 %) 1.8 Baso % (Auto) (0.0 - 2.0 %) 0.7 Neut # (Auto) (2.0 - 7.6 x10 3/uL) 4.27 Lymph # (Auto) (1.0 - 3.8 x10 3/uL) 2.09 [place] # (Auto) (0.1 - 0.8 x10 3/uL) [...] % (Auto) (14.0 - 32.0 %) 30.8 [place] % (Auto) (4.8 - 9.0 %) 7.8 Eos % (Auto) (0.3 - 3.7 %) 1.7 Baso % (Auto) (0.0 - 2.0 %) 0.5 Neut # (Auto) (2.0 - 7.6 x10 3/uL) 4.38 Lymph # (Auto) (1.0 - 3.8 x10 3/uL) 2.30 [place] # (Auto) (0.1 - 0.8 x10 3/uL) [...] Laboratory Tests: 04/25 04/25 04/25 04/24 1126 6213 0220 2002 Chemistry Sodium (134 - 147 mEq/L) [...] (Auto) (14.0 - 32.0 %) 11.5 L [place] % (Auto) (4.8 - 9.0 %) 6.9 Eos % (Auto) (0.3 - 3.7 %) 0.2 L Baso % (Auto) (0.0 - 2.0 %) 0.2 Neut # (Auto) (2.0 - 7.6 x10 3/uL) 9.65 H Lymph # (Auto) (1.0 - 3.8 x10 3/uL) 1.37 [place] # (Auto) (0.1 - 0.8 x10 3/uL) [...] % (Auto) (14.0 - 32.0 %) 21.2 [place] % (Auto) (4.8 - 9.0 %) 7.9 Eos % (Auto) (0.3 - 3.7 %) 1.9 Baso % (Auto) (0.0 - 2.0 %) 0.4 Neut # (Auto) (2.0 - 7.6 x10 3/uL) 5.28 Lymph # (Auto) (1.0 - 3.8 x10 3/uL) 1.65 [place] # (Auto) (0.1 - 0.8 x10 3/uL) [...] % (Auto) (14.0 - 32.0 %) 18.0 [place] % (Auto) (4.8 - 9.0 %) 8.4 Eos % (Auto) (0.3 - 3.7 %) 0.8 Baso % (Auto) (0.0 - 2.0 %) 0.4 Neut # (Auto) (2.0 - 7.6 x10 3/uL) 7.28 Lymph # (Auto) (1.0 - 3.8 x10 3/uL) 1.82 [place] # (Auto) (0.1 - 0.8 x10 3/uL) [...] % (Auto) (14.0 - 32.0 %) 23.5 [place] % (Auto) (4.8 - 9.0 %) 7.4 Eos % (Auto) (0.3 - 3.7 %) 2.0 Baso % (Auto) (0.0 - 2.0 %) 0.6 Neut # (Auto) (2.0 - 7.6 x10 3/uL) 5.66 Lymph # (Auto) (1.0 - 3.8 x10 3/uL) 2.01 [place] # (Auto) (0.1 - 0.8 x10 3/uL) [...] % (Auto) (14.0 - 32.0 %) 27.0 [place] % (Auto) (4.8 - 9.0 %) 8.9 Eos % (Auto) (0.3 - 3.7 %) 1.7 Baso % (Auto) (0.0 - 2.0 %) 0.7 Neut # (Auto) (2.0 - 7.6 x10 3/uL) 4.28 Lymph # (Auto) (1.0 - 3.8 x10 3/uL) 1.89 [place] # (Auto) (0.1 - 0.8 x10 3/uL) [...] pH (5.0 - 7.0) 5.0 Ur Specific [place] (1.005 - 1.030) 1.011 Urine Protein (NEGATIVE) [...] INR (0.8 - 1.2) 1.3 H PTT ([place]) (25.0 - 39.5 Seconds) 39.3 PT Patient/Control [...] dose. Diabetes dietary education. at 1457 RPT #:[id number] END OF REPORT [facility] 2023-05-01 08:56:00 [facility]) Critical Care Progress Note REPORT#:[id number] REPORT STATUS: Signed REPORT INITIALIZATION DATE:05/01/23 TIME: 855 PATIENT: JONG RIVAS UNIT #: [id number] ROOM/BED: [place] [address] : 67 AGE: 58 SEX: M ATTEND: [...] Glargine (Semgle[place]) 18 UNIT BEDTIME SUBQ Ipratropium [place] (ATROVENT) 500 MCG RTQ2H PRN PRN INH [...] Aspirin (ASPIRIN) 81 MG DAILY PO Ipratropium [place] (ATROVENT) 500 MCG RTQ4H INH (DC) Pantoprazole [...] non-tender, normal bowel sounds Extremities: moves all Neuro/HARDWOOD SAWYER: alert, oriented X 3, CNII-XII intact, normal [...] - 110 MG/DL) 217 H Laboratory Tests 05/01 0203 Hematology WBC (4.5 - 11.0 x10 3/uL) [...] % (Auto) (14.0 - 32.0 %) 14.7 [place] % (Auto) (4.8 - 9.0 %) 8.3 Eos % (Auto) (0.3 - 3.7 %) 2.5 Baso % (Auto) (0.0 - 2.0 %) 0.5 Neut # (Auto) (2.0 - 7.6 x10 3/uL) 6.86 Lymph # (Auto) (1.0 - 3.8 x10 3/uL) 1.38 [place] # (Auto) (0.1 - 0.8 x10 3/uL) [...] Report Impression - Status: SIGNED Entered: 05/01/2023 9565 IMPRESSION: 1. Expected post-CABG changes with mild [...] prophylaxis. Continue antibiotic per ID recommendation. 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 Case was discussed at bedside with the [...] with the nursing staff, respiratory therapist, pharmacist, transition social worker and cardiothoracic surgery team. 05/01 Pain is [...] cardiology, cardiovascular surgery, pulmonary at 0858 RPT #:[id number] END OF REPORT [facility] 2023-05-01 08:18:00 [facility] Cardiothoracic Surgery Prog REPORT#:[id number] REPORT STATUS: Signed REPORT INITIALIZATION DATE:05/01/23 TIME: 817 PATIENT: JONG RIVAS UNIT #: [id number] ROOM/BED: [place] [address] : [birth year] AGE: 58 SEX: M ATTEND: [...] Result Date Time Pulse Ox 95 05/01 600 B/P 128/75 05/01 600 B/P Mean 96 05/01 600 Pulse 94 05/01 600 Resp 24 05/01 600 FiO2 21 05/01 0413 O2 Delivery Room [...] range of motion, painless range of motion Neuro/HARDWOOD SAWYER: 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 Patient transferred from [facility], referred to us from Dr. Forde for acute coronary syndrome, unstable angina, ischemic heart disease status post coronary angiogram, with findings of multivessel CAD, EF 50%. 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 Patient reports dyspnea on exertion and mild chest pain x1 year. 04/18/23: Coronary angiogram done at [facility] Left main patent LAD with high-grade and [...] cardiology, cardiovascular surgery, pulmonary at 0826 at 0903 RPT #:[id number] END OF REPORT [facility] 2023-04-30 18:21:00 [facility] ([facility]) Critical Care Progress Note REPORT#:[id number] REPORT STATUS: Signed REPORT INITIALIZATION DATE:04/30/23 TIME: 1820 PATIENT: JONG RIVSA UNIT #: [id number] ROOM/BED: [place] [address] : 66 AGE: 58 SEX: M ATTEND: [...] Glargine (Semglee) 18 UNIT BEDTIME SUBQ Ipratropium Brussels (ATROVENT) 500 MCG RTQ2H PRN PRN INH [...] Aspirin (ASPIRIN) 81 MG DAILY PO Ipratropium Brussels (ATROVENT) 500 MCG RTQ4H INH (DC) Pantoprazole [...] non-tender, normal bowel sounds Extremities: moves all Neuro/HARDWOOD SAWYER: alert, oriented X 3, CNII-XII intact, normal speech Results Findings/data: Laboratory Tests 04/30 04/30 04/30 04/30 1632 1340 0809 0221 Chemistry POC Glucose (70 - 110 MG/DL) 188 H 217 H 181 H Ionized Calcium Ryley (1.09 - 1.30 MMOL/L) 1.05 L 04/30 1932 Chemistry Sodium (134 - 147 mEq/L) [...] 5.0 g/dL) 3.20 L Laboratory Tests 04/30 221 Hematology WBC (4.5 - 11.0 x10 3/uL) [...] (Auto) (14.0 - 32.0 %) 11.3 L Mariposa % (Auto) (4.8 - 9.0 %) 8.3 Eos % (Auto) (0.3 - 3.7 %) 1.3 Baso % (Auto) (0.0 - 2.0 %) 0.2 Neut # (Auto) (2.0 - 7.6 x10 3/uL) 10.28 H Lymph # (Auto) (1.0 - 3.8 x10 3/uL) 1.49 Mariposa # (Auto) (0.1 - 0.8 x10 3/uL) [...] prophylaxis. Continue antibiotic per ID recommendation. 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 Case was discussed at bedside with the [...] with the nursing staff, respiratory therapist, pharmacist, transition social worker and cardiothoracic surgery team. 04/30 Pain control. [...] cardiology, cardiovascular surgery, pulmonary at 1825 RPT #:[id number] END OF REPORT [facility] 2023-04-30 13:47:00 [facility] Endocrinology Progress Note REPORT#:[id number] REPORT STATUS: Signed REPORT INITIALIZATION DATE:04/30/23 TIME: 1346 PATIENT: JONG RIVAS UNIT #: [id number] ROOM/BED: [place] [address] : 66 AGE: 58 SEX: M ATTEND: [...] Meds + DC'd Last 24 Hrs Ipratropium Brussels (ATROVENT) 500 MCG RTQ2H PRN PRN INH [...] Aspirin (ASPIRIN) 81 MG DAILY PO Ipratropium Brussels (ATROVENT) 500 MCG RTQ4H INH Pantoprazole (PROTONIX) [...] (Auto) (14.0 - 32.0 %) 11.3 L Mar[place]osa % (Auto) (4.8 - 9.0 %) 8.3 Eos % (Auto) (0.3 - 3.7 %) 1.3 Baso % (Auto) (0.0 - 2.0 %) 0.2 Neut # (Auto) (2.0 - 7.6 x10 3/uL) 10.28 H Lymph # (Auto) (1.0 - 3.8 x10 3/uL) 1.49 Mariposa # (Auto) (0.1 - 0.8 x10 3/uL) [...] (Auto) (14.0 - 32.0 %) 6.5 L [place] % (Auto) (4.8 - 9.0 %) 8.1 Eos % (Auto) (0.3 - 3.7 %) 0.1 L Baso % (Auto) (0.0 - 2.0 %) 0.1 Neut # (Auto) (2.0 - 7.6 x10 3/uL) 12.28 H Lymph # (Auto) (1.0 - 3.8 x10 3/uL) 0.94 L Mar[place]osa # (Auto) (0.1 - 0.8 x10 3/uL) [...] (Auto) (14.0 - 32.0 %) 4.0 L [place] % (Auto) (4.8 - 9.0 %) 6.7 Eos % (Auto) (0.3 - 3.7 %) 0.0 L Baso % (Auto) (0.0 - 2.0 %) 0.1 Neut # (Auto) (2.0 - 7.6 x10 3/uL) 12.23 H Lymph # (Auto) (1.0 - 3.8 x10 3/uL) 0.55 L Mariposa # (Auto) (0.1 - 0.8 x10 3/uL) [...] Report Impression - Status: SIGNED Entered: 04/28/2023 1362 IMPRESSION: Lines and tubes, as detailed above. Pulmonary edema and small left pleural effusion again noted. Enlarged cardiomediastinal silhouette. Impression By: DR.SHEAL Janiya Jiménez M.D. RADIOLOGY - XR CHEST 1 V 04/28 1716 Report Impression - Status: SIGNED Entered: 04/28/2023 6886 IMPRESSION: Improved mild bilateral interstitial infiltrates. Trace [...] 152 H 04/27 04/27 04/27 04/27 1233 0859 0680 0322 Blood Gas O2 Saturation (90 - [...] INR (0.8 - 1.2) 1.5 H PTT ([place]) (25.0 - 39.5 Seconds) 32.7 PT Patient/Control [...] % (Auto) (14.0 - 32.0 %) 29.4 Mariposa % (Auto) (4.8 - 9.0 %) 7.5 Eos % (Auto) (0.3 - 3.7 %) 1.8 Baso % (Auto) (0.0 - 2.0 %) 0.7 Neut # (Auto) (2.0 - 7.6 x10 3/uL) 4.27 Lymph # (Auto) (1.0 - 3.8 x10 3/uL) 2.09 Mariposa # (Auto) (0.1 - 0.8 x10 3/uL) [...] % (Auto) (14.0 - 32.0 %) 30.8 Mar[place] % (Auto) (4.8 - 9.0 %) 7.8 Eos % (Auto) (0.3 - 3.7 %) 1.7 Baso % (Auto) (0.0 - 2.0 %) 0.5 Neut # (Auto) (2.0 - 7.6 x10 3/uL) 4.38 Lymph # (Auto) (1.0 - 3.8 x10 3/uL) 2.30 Mariposa # (Auto) (0.1 - 0.8 x10 3/uL) [...] Tests: 04/25 04/25 04/25 04/24 1126 0720 1372 2002 Chemistry Sodium (134 - 147 mEq/L) [...] (Auto) (14.0 - 32.0 %) 11.5 L [place] % (Auto) (4.8 - 9.0 %) 6.9 Eos % (Auto) (0.3 - 3.7 %) 0.2 L Baso % (Auto) (0.0 - 2.0 %) 0.2 Neut # (Auto) (2.0 - 7.6 x10 3/uL) 9.65 H Lymph # (Auto) (1.0 - 3.8 x10 3/uL) 1.37 Mariposa # (Auto) (0.1 - 0.8 x10 3/uL) [...] % (Auto) (14.0 - 32.0 %) 21.2 [place] % (Auto) (4.8 - 9.0 %) 7.9 Eos % (Auto) (0.3 - 3.7 %) 1.9 Baso % (Auto) (0.0 - 2.0 %) 0.4 Neut # (Auto) (2.0 - 7.6 x10 3/uL) 5.28 Lymph # (Auto) (1.0 - 3.8 x10 3/uL) 1.65 Mar[place]osa # (Auto) (0.1 - 0.8 x10 3/uL) [...] % (Auto) (14.0 - 32.0 %) 18.0 Mar[place] % (Auto) (4.8 - 9.0 %) 8.4 Eos % (Auto) (0.3 - 3.7 %) 0.8 Baso % (Auto) (0.0 - 2.0 %) 0.4 Neut # (Auto) (2.0 - 7.6 x10 3/uL) 7.28 Lymph # (Auto) (1.0 - 3.8 x10 3/uL) 1.82 Mar[place]osa # (Auto) (0.1 - 0.8 x10 3/uL) [...] % (Auto) (14.0 - 32.0 %) 23.5 Mar[place] % (Auto) (4.8 - 9.0 %) 7.4 Eos % (Auto) (0.3 - 3.7 %) 2.0 Baso % (Auto) (0.0 - 2.0 %) 0.6 Neut # (Auto) (2.0 - 7.6 x10 3/uL) 5.66 Lymph # (Auto) (1.0 - 3.8 x10 3/uL) 2.01 Mariposa # (Auto) (0.1 - 0.8 x10 3/uL) [...] % (Auto) (14.0 - 32.0 %) 27.0 Mar[place] % (Auto) (4.8 - 9.0 %) 8.9 Eos % (Auto) (0.3 - 3.7 %) 1.7 Baso % (Auto) (0.0 - 2.0 %) 0.7 Neut # (Auto) (2.0 - 7.6 x10 3/uL) 4.28 Lymph # (Auto) (1.0 - 3.8 x10 3/uL) 1.89 Mar[place]osa # (Auto) (0.1 - 0.8 x10 3/uL) [...] pH (5.0 - 7.0) 5.0 Ur Specific Asher (1.005 - 1.030) 1.011 Urine Protein (NEGATIVE) [...] INR (0.8 - 1.2) 1.3 H PTT ([place]) (25.0 - 39.5 Seconds) 39.3 PT Patient/Control [...] dose. Diabetes dietary education. at 1348 RPT #[id number] END OF REPORT [facility] 2023-04-30 05:45:00 [facility] Cardiothoracic Surgery Prog REPORT#:[id number] REPORT STATUS: Signed REPORT INITIALIZATION DATE:04/30/23 TIME: 544 PATIENT: JONG RIVAS UNIT #: [id number] ROOM/BED: [address] : 66 AGE: 58 SEX: M ATTEND: Domenic Rainey MD ADM AUTHOR: Viky Mclaughlin Physic REPT SERVICE DT/TIME: 04/30/23544 * ALL edits or amendments must be [...] Documented: Result Date Time Temp 98.0 04/30 400 Pulse Ox 95 04/30 400 B/P 120/76 04/30 400 B/P Mean 93 04/30 400 Pulse 86 04/30 040 Resp 27 04/30 040 O2 Delivery Room air 04/30 319 O2 Flow Rate 2 04/29 2000 FiO2 28 04/287 24 hour I O ending at 0700: [...] range of motion, painless range of motion Neuro/HARDWOOD SAWYER: 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 Patient transferred from [facility], referred to us from Dr. Forde for acute coronary syndrome, unstable angina, ischemic heart disease status post coronary angiogram, with findings of multivessel CAD, EF 50%. 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 Patient reports dyspnea on exertion and mild chest pain x1 year. 04/18/23: Coronary angiogram done at [facility] Left main patent LAD with high-grade and [...] cardiology, cardiovascular surgery, pulmonary at 0828 at 1725 RPT #:[id number] END OF REPORT [facility] 2023-04-29 17:38:00 [facility]) Endocrinology Progress Note REPORT#:[id number] REPORT STATUS: Signed REPORT INITIALIZATION DATE:04/29/23 TIME: 1737 PATIENT: JONG RIVAS UNIT #: [id number] ROOM/BED: [place] [address] : 66 AGE: 58 SEX: M ATTEND: [...] Meds + DC'd Last 24 Hrs Ipratropium Brussels (ATROVENT) 500 MCG RTQ2H PRN PRN INH [...] Aspirin (ASPIRIN) 81 MG DAILY PO Ipratropium Brussels (ATROVENT) 500 MCG RTQ4H INH Pantoprazole (PROTONIX) [...] 04/29 04/29 04/29 04/28 0624 0228 0026 4431 Chemistry Sodium (134 - 147 mEq/L) 135 [...] (Auto) (14.0 - 32.0 %) 6.5 L Mariposa % (Auto) (4.8 - 9.0 %) 8.1 Eos % (Auto) (0.3 - 3.7 %) 0.1 L Baso % (Auto) (0.0 - 2.0 %) 0.1 Neut # (Auto) (2.0 - 7.6 x10 3/uL) 12.28 H Lymph # (Auto) (1.0 - 3.8 x10 3/uL) 0.94 L Mariposa # (Auto) (0.1 - 0.8 x10 3/uL) [...] 2.19 04/28 04/28 04/28 04/27 0211 0201 0101 2230 Blood Gas Puncture Site Art Line Art [...] (Auto) (14.0 - 32.0 %) 4.0 L [place] % (Auto) (4.8 - 9.0 %) 6.7 Eos % (Auto) (0.3 - 3.7 %) 0.0 L Baso % (Auto) (0.0 - 2.0 %) 0.1 Neut # (Auto) (2.0 - 7.6 x10 3/uL) 12.23 H Lymph # (Auto) (1.0 - 3.8 x10 3/uL) 0.55 L Mar[place] # (Auto) (0.1 - 0.8 x10 3/uL) [...] Report Impression - Status: SIGNED Entered: 04/28/2023 175 IMPRESSION: Improved mild bilateral interstitial infiltrates. Trace [...] % (Auto) (14.0 - 32.0 %) 29.4 [place] % (Auto) (4.8 - 9.0 %) 7.5 Eos % (Auto) (0.3 - 3.7 %) 1.8 Baso % (Auto) (0.0 - 2.0 %) 0.7 Neut # (Auto) (2.0 - 7.6 x10 3/uL) 4.27 Lymph # (Auto) (1.0 - 3.8 x10 3/uL) 2.09 [place] # (Auto) (0.1 - 0.8 x10 3/uL) [...] 0.00 Serology SARS-CoV-2 Ag (Rapid) (Negative) Negative 11/07 11/07 2023 1601 Chemistry POC Glucose (70 - 110 MG/DL) 175 H 164 H Microbiology: Date/Time Procedure - Status Source Growth 04/27 828 MSSA Surveillance Screen - RECD NASAL 04/27 828 MRSA DNA Surveillance Screen - RECD NASAL Laboratory Tests: 04/26 04/26 04/26 04/25 1123 0714 0581 2028 Chemistry Sodium (134 - 147 mEq/L) [...] % (Auto) (14.0 - 32.0 %) 30.8 [place] % (Auto) (4.8 - 9.0 %) 7.8 Eos % (Auto) (0.3 - 3.7 %) 1.7 Baso % (Auto) (0.0 - 2.0 %) 0.5 Neut # (Auto) (2.0 - 7.6 x10 3/uL) 4.38 Lymph # (Auto) (1.0 - 3.8 x10 3/uL) 2.30 Mar[place]osa # (Auto) (0.1 - 0.8 x10 3/uL) [...] (Auto) (14.0 - 32.0 %) 11.5 L [place] % (Auto) (4.8 - 9.0 %) 6.9 Eos % (Auto) (0.3 - 3.7 %) 0.2 L Baso % (Auto) (0.0 - 2.0 %) 0.2 Neut # (Auto) (2.0 - 7.6 x10 3/uL) 9.65 H Lymph # (Auto) (1.0 - 3.8 x10 3/uL) 1.37 Mar[place] # (Auto) (0.1 - 0.8 x10 3/uL) [...] % (Auto) (14.0 - 32.0 %) 21.2 [place] % (Auto) (4.8 - 9.0 %) 7.9 Eos % (Auto) (0.3 - 3.7 %) 1.9 Baso % (Auto) (0.0 - 2.0 %) 0.4 Neut # (Auto) (2.0 - 7.6 x10 3/uL) 5.28 Lymph # (Auto) (1.0 - 3.8 x10 3/uL) 1.65 Mar[place]osa # (Auto) (0.1 - 0.8 x10 3/uL) [...] % (Auto) (14.0 - 32.0 %) 18.0 [place] % (Auto) (4.8 - 9.0 %) 8.4 Eos % (Auto) (0.3 - 3.7 %) 0.8 Baso % (Auto) (0.0 - 2.0 %) 0.4 Neut # (Auto) (2.0 - 7.6 x10 3/uL) 7.28 Lymph # (Auto) (1.0 - 3.8 x10 3/uL) 1.82 Mar[place]osa # (Auto) (0.1 - 0.8 x10 3/uL) [...] % (Auto) (14.0 - 32.0 %) 23.5 [place] % (Auto) (4.8 - 9.0 %) 7.4 Eos % (Auto) (0.3 - 3.7 %) 2.0 Baso % (Auto) (0.0 - 2.0 %) 0.6 Neut # (Auto) (2.0 - 7.6 x10 3/uL) 5.66 Lymph # (Auto) (1.0 - 3.8 x10 3/uL) 2.01 [place] # (Auto) (0.1 - 0.8 x10 3/uL) [...] % (Auto) (14.0 - 32.0 %) 27.0 [place] % (Auto) (4.8 - 9.0 %) 8.9 Eos % (Auto) (0.3 - 3.7 %) 1.7 Baso % (Auto) (0.0 - 2.0 %) 0.7 Neut # (Auto) (2.0 - 7.6 x10 3/uL) 4.28 Lymph # (Auto) (1.0 - 3.8 x10 3/uL) 1.89 Mar[place] # (Auto) (0.1 - 0.8 x10 3/uL) [...] pH (5.0 - 7.0) 5.0 Ur Specific Asher (1.005 - 1.030) 1.011 Urine Protein (NEGATIVE) [...] cardiology, cardiovascular surgery, pulmonary at 1739 RPT #:[id number] END OF REPORT [facility] 2023-04-29 16:05:00 [facility] ([facility]) Critical Care Progress Note REPORT#:[id number] REPORT STATUS: Signed REPORT INITIALIZATION DATE:04/29/23 TIME: 1604 PATIENT: JONG RIVAS UNIT #: [id number] ROOM/BED: [place] [address] : 67 AGE: 58 SEX: M ATTEND: Domenic Rainey MD ADM AUTHOR: Mayito Encarnacion Jr, MD REPT SERVICE DT/TIME: 04/29/23 1605 [...] O2 Delivery High flow nasal cannula 04/29 08 O2 Flow Rate 2 04/29 08 FiO2 28 04/28 2047 24 hour I [...] non-tender, normal bowel sounds Extremities: moves all Neuro/HARDWOOD SAWYER: alert, oriented X 3, CNII-XII intact, normal [...] L Magnesium (1.6 - 2.6 mg/dL) 1.84 04/298 0026 2131 Chemistry Sodium (134 - 147 [...] (Auto) (14.0 - 32.0 %) 6.5 L Mar[place] % (Auto) (4.8 - 9.0 %) 8.1 Eos % (Auto) (0.3 - 3.7 %) 0.1 L Baso % (Auto) (0.0 - 2.0 %) 0.1 Neut # (Auto) (2.0 - 7.6 x10 3/uL) 12.28 H Lymph # (Auto) (1.0 - 3.8 x10 3/uL) 0.94 L [place] # (Auto) (0.1 - 0.8 x10 3/uL) [...] prophylaxis. Continue antibiotic per ID recommendation. 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 Case was discussed at bedside with the [...] with the nursing staff, respiratory therapist, pharmacist, transition social worker and cardiothoracic surgery team. 04/29 Neuro: Pain [...] - replace electrolytes Heme: Stable ID: Continue intermodal customer service antibiotics per ID Total critical care team: 35 minutes Consultants: cardiology, cardiovascular surgery, pulmonary at 1617 RPT #:[id number] END OF REPORT [facility] 2023-04-29 15:38:00 [facility] ([facility]) Heart Failure Progress Note REPORT#:[id number] REPORT STATUS: Signed REPORT INITIALIZATION DATE:04/29/23 TIME: 1537 PATIENT: JONG RIVAS UNIT #: [id number] ROOM/BED: 2201-1 : 66 AGE: 58 SEX: M ATTEND: Domenic Rainey MD ADM AUTHOR: Domingo Irving NP REPT SERVICE DT/TIME: 04/29/23 153 * ALL edits or amendments must be made on the electronic/computer document * Krysten Irvingh T 04/29/23 1538: Subjective HPI: This is a 58 year old male with a past medical history of DM type II, hypertension PE on anticoagulation, right lung lesion, and hypertension that presented initially to [facility] as an NSTEMI, he underwent angiogram and transffered to [facility] after patient was found to have multivessel [...] Q12HR 04/29 2100 AC Monohydrate PO 06/09 2059 Piperacillin Sod/ 3.375 GM Q8H 04/28 1100 AC 04/29 Tazobactam Sod IV 06/09 1059 1040 Sodium Chloride 100 ML Doxycycline Hyclate 100 MG Q12H 04/27 1200 DC 04/29 Sodium Chloride 100 ML IV 05/25 1159 1213 Autonomic Drugs Sig/Katie Start time Last Medication Dose Route Stop Time Status Admin Ipratropium Brussels 500 MCG RTQ2H PRN PRN 04/30 1438 AC INH 07/29 1437 Ipratropium [place] 500 MCG RTQ4H 04/27 1600 AC 04/29 INH 04/30 1438 0745 Epinephrine 4 MG ASDIR 04/27 1445 AC Dextrose/Water 246 ML IV 07/26 1444 Norepinephrine 250 ML TITRATE 04/27 144 AC Bitartrate IV 07/26 1444 Blood Derivatives Sig/Katie Start time Last Medication Dose Route Stop Time Status Admin Albumin Human 250 ML ONCE ONE 04/28 1630 DC 04/28 IV 04/28 1659 1829 Blood Formation,Coagulation Sig/Katie Start time Last Medication Dose Route Stop Time Status Admin Ferrous Sulfate 325 MG DAILY 04/30 900 AC PO 07/29 0859 Alteplase, 4 MG ONCE ONE 04/29 1000 DC Recombinant I-CATHETER 04/29 100 Alteplase, 2 MG ONCE ONE 04/29 0945 DC Recombinant I-CATHETER 04/29 0946 Alteplase, 2 MG ONCE ONE 04/28 1745 DC 04/28 Recombinant I-CATHETER 04/28 1746 1825 Clopidogrel Bisulfate 75 MG DAILY 04/28 900 AC 04/29 PO 07/27 0859 0954 Cardiovascular Drugs Sig/Katie Start time Last Medication Dose Route Stop Time Status Admin Hydralazine HCl 5 MG ONCE ONE 04/28 2250 DC IV 04/28 225 Atorvastatin Calcium 40 MG 2100 04/28 2100 AC 04/28 PO 05/28 Metoprolol Tartrate 12.5 MG Q12HR 04/27 2100 AC 04/29 PO 07/26 2058 0953 Amiodarone HCl 200 MG TID 04/27 1500 AC 04/29 PO 07/26 1459 0952 Nitroglycerin/ 250 ML ASDIR 04/27 144 AC Dextrose IV 07/26 1444 Central Nervous System Agents Sig/Katie Start time Last Medication Dose Route Stop Time Status Admin Aspirin 81 MG DAILY 04/27 2038 AC 04/29 PO 07/26 2036 0953 Acetaminophen 650 MG Q4H PRN PRN 04/27 144 AC PO 07/26 1444 Acetaminophen 650 MG [...] Admin Furosemide 40 MG ONCE ONE 04/29 07 DC 04/29 IV 04/29 07 0807 Dextrose/Water 250 ML ASDIR PRN 04/28 [...] Glycol 17 GM DAILY 04/28 900 AC 04/29 PO 07/27 0859 0952 Docusate Sodium 100 MG BID 04/27 2100 AC 04/29 PO 07/26 205 0955 Sennosides 17.2 MG BEDTIME 04/27 2100 AC PO 07/26 2058 Pantoprazole 40 MG DAILY@0600 04/27 1600 AC [...] no distress Extremities: moves all, no edema Neuro/HARDWOOD SAWYER: alert, oriented X 3, normal speech Skin: [...] Report Impression - Status: SIGNED Entered: 04/28/2023 3228 IMPRESSION: Improved mild bilateral interstitial infiltrates. Trace effusions. Impression By: Zane Powers M.D. RADIOLOGY - XR CHEST 1 V 04/29 0654 Report Impression - Status: SIGNED Entered: 04/29/2023 0814 IMPRESSION: Signs of trace vascular congestion and central pulmonary edema. Suspect trace bilateral pleural effusions. Stable lines and tubes. Impression By: [email or web address] - Adilson Ordaz D.O. Results: no new labs, labs [...] failing: Cardiac at 1553 at 1352 RPT #:[id number] END OF REPORT [facility] 2023-04-29 10:46:00 [facility] ([facility] Infectious Dis. Progress Note REPORT#:[id number] REPORT STATUS: Signed REPORT INITIALIZATION DATE:04/29/23 TIME: 104 PATIENT: JONG RIVAS UNIT #: [id number] ROOM/BED: [place] [address] : 67 AGE: 58 SEX: M ATTEND: [...] for exam, bilateral legs pitting edema noted Neuro/HARDWOOD SAWYER: alert, 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 Rivas is a 58-year-old male with history of diabetes mellitus type 2, hypertension, prior smoking history, chronic PE, chronic left foot ulcer. He was admitted at [facility] with complaints of chest pain. He had [...] negative x 2. -MRSA screen negative. -Called [facility] earlier. Patient's blood cultures have been negative [...] + metronidazole between 04/21/2023-04/27/2023) at 1051 RPT #:[id number] END OF REPORT [facility] 2023-04-29 07:16:00 [facility]) Rehab Progress Note REPORT#:[id number] REPORT STATUS: Signed REPORT INITIALIZATION DATE:04/29/23 TIME: 715 PATIENT: JONG RIVAS UNIT #: [id number] ROOM/BED: [place] [address] : 67 AGE: 58 SEX: M ATTEND: [...] Meds + DC'd Last 24 Hrs Ipratropium Brussels (ATROVENT) 500 MCG RTQ2H PRN PRN INH [...] Aspirin (ASPIRIN) 81 MG DAILY PO Ipratropium [place] (ATROVENT) 500 MCG RTQ4H INH Pantoprazole (PROTONIX) [...] FT Progression: Forward Assistance Level: Minimal Assistance [facility] Mobility: No Document Pain/Education: No Advanced Progression: [...] - general: joints normal, normal muscle mass Neuro/HARDWOOD SAWYER: alert, oriented X 3, CNII-XII intact Results [...] (Auto) (14.0 - 32.0 %) 6.5 L [place] % (Auto) (4.8 - 9.0 %) 8.1 Eos % (Auto) (0.3 - 3.7 %) 0.1 L Baso % (Auto) (0.0 - 2.0 %) 0.1 Neut # (Auto) (2.0 - 7.6 x10 3/uL) 12.28 H Lymph # (Auto) (1.0 - 3.8 x10 3/uL) 0.94 L [place] # (Auto) (0.1 - 0.8 x10 3/uL) [...] week Rehab attestation: . at 0501 RPT #:[id number] END OF REPORT [facility] 2023-04-29 06:57:00 [facility] ([facility]) Cardiology Progress Note REPORT#:[id number] REPORT STATUS: Signed REPORT INITIALIZATION DATE:04/29/23 TIME: 656 PATIENT: JONG RIVAS UNIT #: [id number] ROOM[address]BED: [address] : 67 AGE: 58 SEX: M ATTEND: Domenic Rainey MD ADM AUTHOR: Noemí Nieto MD REPT SERVICE DT/TIME: 04/29/23656 * ALL edits or amendments must be [...] 04/28 2200 91 26 179/84 120 97 04/280 94 30 98 04/28 2100 102 32 164/82 113 95 04/287 93 Nasal 2 28 cannula 04/28 2030 109 31 11/09 2003 101 33 149/73 104 97 04/28 [...] 0700 98.6 65 15 97/49 62 95 PATIENT WEIGHT: Weight (lb): 242 Weight (oz): 1.08 Weight (kg): 109.800 Medications: Active Meds + DC'd Last 24 Hrs Ipratropium [place] (ATROVENT) 500 MCG RTQ2H PRN PRN INH [...] Aspirin (ASPIRIN) 81 MG DAILY PO Ipratropium [place] (ATROVENT) 500 MCG RTQ4H INH Pantoprazole (PROTONIX) [...] (Auto) (14.0 - 32.0 %) 6.5 L [place] % (Auto) (4.8 - 9.0 %) 8.1 Eos % (Auto) (0.3 - 3.7 %) 0.1 L Baso % (Auto) (0.0 - 2.0 %) 0.1 Neut # (Auto) (2.0 - 7.6 x10 3/uL) 12.28 H Lymph # (Auto) (1.0 - 3.8 x10 3/uL) 0.94 L [place] # (Auto) (0.1 - 0.8 x10 3/uL) [...] Report Impression - Status: SIGNED Entered: 04/28/2023 1501 IMPRESSION: Improved mild bilateral interstitial infiltrates. Trace effusions. Impression By: Zane Powers M.D. Free Text Obj Notes Free [...] times daily. at 0700 at 0137 RPT #:[id number] END OF REPORT [facility] 2023-04-29 06:09:00 [facility] Cardiothoracic Surgery Prog REPORT#:[id number] REPORT STATUS: Signed REPORT INITIALIZATION DATE:04/29/23 TIME: 608 PATIENT: JONG RIVAS UNIT #: [id number] ROOM/BED: 3343-1 : 66 AGE: 58 SEX: [...] Ox 93 04/29 557 Pulse 79 04/29 0557 Resp 22 04/29 0557 B/P 133/67 04/29 0500 B/P Mean 93 04/29 0500 O2 Delivery Nasal cannula 04/291 O2 Flow Rate 2 04/291 FiO2 28 04/28 2047 Temp 99.4 04/28 2000 24 hour I [...] range of motion, painless range of motion Neuro/[facility] SAWYER: 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 Patient transferred from [facility], referred to us from Dr. Forde for acute coronary syndrome, unstable angina, ischemic heart disease status post coronary angiogram, with findings of multivessel CAD, EF 50%. 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 Patient reports dyspnea on exertion and mild chest pain x1 year. 04/18/23: Coronary angiogram done at [facility] Left main patent LAD with high-grade and [...] cardiovascular surgery, pulmonary at 1111 at 1724 RUST #:[id number] END OF REPORT [facility] 2023-04-29 02:41:00 [id number] [place] [address] PATIENT NAME: JONG RIVAS ADMIT DATE: 04/19/23 ACCOUNT NO: [id number] ROOM NO: [id number] AGE: 58 REPORT TYPE: eELECTROCARDIOGRAM REPORT SEX: M ADMITTING PHYSICIAN:Domenic Rainey MD ATTENDING PHYSICIAN:Domenic Rainey MD Order: [id number] Test Reason : Cardiac Surgery Post Op [...] 04:12, Significant changes have occurred Confirmed by CHARISSA GUERRERO MD ([id number]) on 05/19/2023 5:04:22 PM Referred By: Domenic Rainey Confirmed by:CHARISSA GUERRERO MD at 1704 PATIENT NAME: JONG RIVAS [facility] 2023-04-28 18:26:00 [facility] Endocrinology Progress Note REPORT#:[id number] REPORT STATUS: Signed REPORT INITIALIZATION DATE:04/28/23 TIME: 1825 PATIENT: JONG RIVAS UNIT #: [id number] ROOM/BED: [place] [address] : 66 AGE: 58 SEX: M ATTEND: [...] Pulse 79 04/28 1130 Resp 29 04/28 113 Temp 37.1 04/28 1100 FiO2 28 04/28 418 O2 Delivery Nasal cannula 04/28 418 O2 Flow Rate 2 04/28 418 PATIENT WEIGHT: Weight (lb): 213 Weight (oz): 10.05 Weight (kg): 96.900 Medications: Active Meds + DC'd Last 24 Hrs Ipratropium Brussels (ATROVENT) 500 MCG RTQ2H PRN PRN INH [...] 25 MCG ONCE ONE IV (DC) Ipratropium [place] (ATROVENT) 500 MCG RTQ4H INH Pantoprazole (PROTONIX) [...] (Auto) (14.0 - 32.0 %) 4.0 L [place] % (Auto) (4.8 - 9.0 %) 6.7 Eos % (Auto) (0.3 - 3.7 %) 0.0 L Baso % (Auto) (0.0 - 2.0 %) 0.1 Neut # (Auto) (2.0 - 7.6 x10 3/uL) 12.23 H Lymph # (Auto) (1.0 - 3.8 x10 3/uL) 0.55 L Mar[place]osa # (Auto) (0.1 - 0.8 x10 3/uL) [...] Report Impression - Status: SIGNED Entered: 04/28/2023 8966 IMPRESSION: Improved mild bilateral interstitial infiltrates. Trace [...] INR (0.8 - 1.2) 1.5 H PTT ([place]) (25.0 - 39.5 Seconds) 32.7 PT Patient/Control [...] % (Auto) (14.0 - 32.0 %) 29.4 [place]osa % (Auto) (4.8 - 9.0 %) 7.5 Eos % (Auto) (0.3 - 3.7 %) 1.8 Baso % (Auto) (0.0 - 2.0 %) 0.7 Neut # (Auto) (2.0 - 7.6 x10 3/uL) 4.27 Lymph # (Auto) (1.0 - 3.8 x10 3/uL) 2.09 [place] # (Auto) (0.1 - 0.8 x10 3/uL) [...] % (Auto) (14.0 - 32.0 %) 30.8 [place] % (Auto) (4.8 - 9.0 %) 7.8 Eos % (Auto) (0.3 - 3.7 %) 1.7 Baso % (Auto) (0.0 - 2.0 %) 0.5 Neut # (Auto) (2.0 - 7.6 x10 3/uL) 4.38 Lymph # (Auto) (1.0 - 3.8 x10 3/uL) 2.30 [place]osa # (Auto) (0.1 - 0.8 x10 3/uL) [...] Laboratory Tests: 04/25 04/25 04/25 04/24 1126 4820 0255 2002 Chemistry Sodium (134 - 147 mEq/L) [...] (Auto) (14.0 - 32.0 %) 11.5 L [place] % (Auto) (4.8 - 9.0 %) 6.9 Eos % (Auto) (0.3 - 3.7 %) 0.2 L Baso % (Auto) (0.0 - 2.0 %) 0.2 Neut # (Auto) (2.0 - 7.6 x10 3/uL) 9.65 H Lymph # (Auto) (1.0 - 3.8 x10 3/uL) 1.37 [place] # (Auto) (0.1 - 0.8 x10 3/uL) [...] % (Auto) (14.0 - 32.0 %) 21.2 [place] % (Auto) (4.8 - 9.0 %) 7.9 Eos % (Auto) (0.3 - 3.7 %) 1.9 Baso % (Auto) (0.0 - 2.0 %) 0.4 Neut # (Auto) (2.0 - 7.6 x10 3/uL) 5.28 Lymph # (Auto) (1.0 - 3.8 x10 3/uL) 1.65 [place] # (Auto) (0.1 - 0.8 x10 3/uL) [...] % (Auto) (14.0 - 32.0 %) 18.0 [place] % (Auto) (4.8 - 9.0 %) 8.4 Eos % (Auto) (0.3 - 3.7 %) 0.8 Baso % (Auto) (0.0 - 2.0 %) 0.4 Neut # (Auto) (2.0 - 7.6 x10 3/uL) 7.28 Lymph # (Auto) (1.0 - 3.8 x10 3/uL) 1.82 [place] # (Auto) (0.1 - 0.8 x10 3/uL) [...] % (Auto) (14.0 - 32.0 %) 23.5 [place] % (Auto) (4.8 - 9.0 %) 7.4 Eos % (Auto) (0.3 - 3.7 %) 2.0 Baso % (Auto) (0.0 - 2.0 %) 0.6 Neut # (Auto) (2.0 - 7.6 x10 3/uL) 5.66 Lymph # (Auto) (1.0 - 3.8 x10 3/uL) 2.01 [place] # (Auto) (0.1 - 0.8 x10 3/uL) [...] 04/21 1535 Blood Culture - RECD BLOOD 11/02 1535 Blood Culture Gram Stain - RECD [...] % (Auto) (14.0 - 32.0 %) 27.0 [place] % (Auto) (4.8 - 9.0 %) 8.9 Eos % (Auto) (0.3 - 3.7 %) 1.7 Baso % (Auto) (0.0 - 2.0 %) 0.7 Neut # (Auto) (2.0 - 7.6 x10 3/uL) 4.28 Lymph # (Auto) (1.0 - 3.8 x10 3/uL) 1.89 [place] # (Auto) (0.1 - 0.8 x10 3/uL) [...] pH (5.0 - 7.0) 5.0 Ur Specific Asher (1.005 - 1.030) 1.011 Urine Protein (NEGATIVE) [...] INR (0.8 - 1.2) 1.3 H PTT ([place]) (25.0 - 39.5 Seconds) 39.3 PT Patient/Control [...] drip Diabetes dietary education. at 1827 RPT #:[id number] END OF REPORT [facility] 2023-04-28 16:05:00 [facility] Cardiology Progress Note REPORT#:[id number] REPORT STATUS: Signed REPORT INITIALIZATION DATE:04/28/23 TIME: 160 PATIENT: JONG RIVAS UNIT #: [id number] ROOM/BED: [place] [address] : 66 AGE: 58 SEX: M ATTEND: Domenic Rainey MD ADM AUTHOR: Noemí Nieto MD REPT SERVICE DT/TIME: 04/28/23 1605 * ALL edits or amendments must be made on the electronic/computer document * Subjective HPI: 58-year-old male with past medical history of [id number]-[id number] diabetes mellitus, hypertension, history of PE previously on anticoagulation, right lung cavitary lesion was seen at [facility] on 04/15/2023 with a complaint of shortness [...] to have UTI. Patient was transferred to [facility] for further work-up including possible evaluation [...] hour I O ending at 0700: 04/28 1900 Intake Total 1936.00 388.00 Output Total [...] 65 95 04/28 0800 94/57 69 04/28 800 99.0 69 8 106/53 67 95 04/28 0730 98.8 67 23 97/48 61 95 04/28 0700 83/48 60 04/28 700 98.6 65 15 97/49 62 95 11/09 0631 98.6 68 26 95/46 60 96 11/09 0630 98.6 64 25 88/43 60 95 11/09 0629 83/52 62 11/09 0629 98.6 66 27 95/45 58 94 11/09 0623 86/54 65 11/09 0623 98.6 67 25 98/47 61 94 11/09 0600 99/59 74 11/09 0600 98.8 66 25 117/54 71 95 11/09 0543 87/55 65 11/09 0543 98.8 68 22 99/48 62 94 [...] 2300 98.8 72 21 92/55 64 100 04/27 2235 114/68 85 04/27 2235 98.6 74 23 113/58 75 100 04/270 98.6 73 22 105/55 69 100 04/279 80/57 64 04/279 98.6 71 19 86/48 58 98 04/27 2200 83/59 66 04/270 98.4 73 23 98/52 65 99 04/27 2153 98.4 74 19 98/51 65 98 04/27 2147 90/61 70 04/27 2147 98.4 75 22 96/51 64 99 04/27 2130 98.2 75 25 99/53 66 99 [...] 62 99 04/27 1916 90/60 71 04/27 191 97.5 74 24 101/50 64 100 04/27 [...] Meds + DC'd Last 24 Hrs Ipratropium [place] (ATROVENT) 500 MCG RTQ2H PRN PRN INH [...] 25 MCG ONCE ONE IV (DC) Ipratropium [place] (ATROVENT) 500 MCG RTQ4H INH Pantoprazole (PROTONIX) [...] 1.13 Magnesium (1.6 - 2.6 mg/dL) 2.19 04/281 0201 0104 5908 1326 Chemistry Sodium (134 - 147 mEq/L) 139 [...] - 12.9 SECONDS) 17.3 H Laboratory Tests 04/28 04/27 0201 1643 [...] - 32.0 %) 4.0 L 5.1 L [place] % (Auto) (4.8 - 9.0 %) 6.7 4.9 Eos % (Auto) (0.3 - 3.7 %) 0.0 L 0.2 L Baso % (Auto) (0.0 - 2.0 %) 0.1 0.3 Neut # (Auto) (2.0 - 7.6 x10 3/uL) 12.23 H 18.07 H Lymph # (Auto) (1.0 - 3.8 x10 3/uL) 0.55 L 1.04 Mar[place] # (Auto) (0.1 - 0.8 x10 3/uL) [...] times daily. at 1609 at 0137 RPT #:[id number] END OF REPORT [facility] 2023-04-28 13:20:00 [facility] ([facility] Adult General Consultation REPORT#:[id number] REPORT STATUS: Signed REPORT INITIALIZATION DATE:04/28/23 TIME: 1320 PATIENT: JONG RIVAS UNIT #: [id number] ROOM/BED: [place] [address] : 66 AGE: 58 SEX: M ATTEND: [...] known prior cardiovascular disease. Patient transferred from [facility], referred to us from Dr. Forde for acute coronary syndrome, unstable angina, ischemic heart disease status post coronary angiogram, with findings of multivessel CAD, EF 50%. Upon further chart review patient found to have chronic cavitary lung lesion on CT chest pending QuantiFERON, left lower extremity diabetic foot ulcer concerning for osteomyelitis MRI done at [facility] and will upload imaging, foot wound culture [...] Dose Route Stop Time Status Admin Ipratropium [place] 500 MCG RTQ2H PRN PRN 04/30 1438 AC (ATROVENT) INH 07/29 1437 Ipratropium [place] 500 MCG RTQ4H 04/27 1600 AC 04/28 (ATROVENT) INH 04/30 1438 1557 Epinephrine 4 MG ASDIR 04/27 1445 AC (ADRENALIN CHLORIDE) IV 07/26 1444 Dextrose/Water 246 ML (DEXTROSE 5% WATER) Norepinephrine 250 ML TITRATE 04/27 1445 AC Bitartrate IV 07/26 1444 (NOREPINEPHRINE 8 MG/ NS 250 ML) Blood Derivatives Sig/Katie Start time Last Medication Dose Route Stop Time Status Admin Albumin Human 250 ML ONCE ONE 04/28 1630 DC 04/28 (ALBUMINAR 5% 12.5GM/ IV 04/28 1659 1829 250ML) Albumin Human 250 ML ONCE ONE 04/27 2300 DC 04/27 (ALBUMINAR 5% 12.5GM/ IV 04/27 2329 2304 250ML) Albumin Human 250 ML ONCE ONE 04/27 2015 DC 04/27 (ALBUMINAR 5% 12.5GM/ IV 04/27 204 2020 250ML) Albumin Human 25 GM ASDIR PRN 04/27 1445 DC (ALBUMINAR 25%) IV 04/28 1438 Blood Formation,Coagulation Sig/Katie Start time Last Medication [...] 1459 1445 Nitroglycerin/ 250 ML ASDIR 04/27 1445 AC Dextrose IV 07/26 1444 (NITROGLYCERIN 50,000MCG/D5W 250ML) Central Nervous System Agents Sig/Katie Start time Last Medication Dose Route Stop Time Status Admin Acetaminophen 100 ML Q6H 04/27 2115 DC 04/28 (OFIRMEV 10MG/ML) IV 04/28 929 0741 Aspirin 81 MG DAILY 04/27 2038 AC 04/28 (ASPIRIN) PO 07/26 2036 0743 Acetaminophen 650 MG Q4H PRN PRN 04/27 1445 AC (TYLENOL) PO 07/26 1444 Acetaminophen 650 MG Q4H [...] 1444 Dextrose/Water 125 ML ASDIR PRN 04/27 144 CKD (DEXTROSE 10% IN IV 07/26 144 WATER) Dextrose/Water 250 ML ASDIR PRN 04/27 1445 CKD (DEXTROSE 10% IN IV 07/26 144 WATER) Potassium Chloride 100 ML ASDIR PRN 04/27 1445 AC (KCL 20MEQ/SWFI IV 07/26 1444 100ML) Sodium Bicarbonate 50 MEQ ASDIR PRN 04/27 1445 AC (SODIUM BICARBONATE) IV 07/26 144 Sodium Chloride 1,000 ML .Q20H 04/27 1445 AC 04/28 (SODIUM CHLORIDE IV 07/26 144 0341 0.9%) Sodium Chloride 250 ML Q24H 04/27 144 AC (SODIUM CHLORIDE IV 07/26 144 0.9%) Gastrointestinal Drugs Sig/Katie Start time Last Medication Dose Route Stop Time Status Admin Bisacodyl 10 MG ONCE PRN 04/29 1200 AC (DULCOLAX) RECTAL 07/28 1159 Magnesium Hydroxide 30 ML ONCE PRN 04/29 1200 AC (MILK OF MAGNESIA) PO Polyethylene Glycol 17 GM DAILY 04/28 0900 AC 04/28 (MIRALAX) PO 07/27 0859 0745 Docusate Sodium 100 MG BID 04/27 2100 AC 04/28 (COLACE) PO 07/26 2058 0744 Sennosides 17.2 MG BEDTIME 04/27 2100 AC (Senna Lax 8.6 MG PO 07/26 2058 TABLET) Pantoprazole 40 MG DAILY@0600 04/27 1600 AC 04/28 (PROTONIX) PO 07/26 1559 0554 Ondansetron HCl 4 MG Q6H PRN PRN 04/27 144 AC (ZOFRAN) IV 07/26 144 Hormones And Synthetic Substit Sig/Katie Start time Last Medication Dose Route Stop Time Status Admin Insulin Human Regular 100 UNIT ASDIR 04/28 1830 CKD (HumuLIN R) IV 07/27 1829 Sodium Chloride 99 ML (SODIUM CHLORIDE 0.9%) Glucagon 1 MG ASDIR PRN 04/27 1445 AC (GLUCAGON) IM 07/26 1444 Insulin Human Regular 100 UNIT ASDIR 04/27 1445 CKD (HumuLIN R) IV 07/26 144 Sodium Chloride 99 ML (SODIUM CHLORIDE 0.9%) Pharmaceutical Aids Sig/Katie Start time Last Medication Dose Route Stop Time Status Admin Sterile Water 2.2 ML ASDIR PRN 04/28 174 AC (WATER FOR INJECTION) IV 04/29 1634 Respiratory Tract Agents Sig/Katie Start time Last Medication Dose Route Stop Time Status Admin Benzonatate 200 MG Q8H PRN PRN 04/28 174 AC (TESSALON PERLE) PO 07/27 1744 Skin And Mucous Membrane Agent Sig/Katie Start [...] 04/28 1130 Resp 29 04/28 1130 Temp 98.8 04/28 1100 FiO2 28 04/28 0418 O2 Delivery Nasal cannula 04/28 418 O2 [...] of motion, edema (BLE), moves all Musculoskeletal: res habilitation assistant -4/5 BLE -4/5 Neuro/HARDWOOD SAWYER: alert, oriented X 3 Skin: dry, intact, [...] (Auto) (14.0 - 32.0 %) 4.0 L [place] % (Auto) (4.8 - 9.0 %) 6.7 Eos % (Auto) (0.3 - 3.7 %) 0.0 L Baso % (Auto) (0.0 - 2.0 %) 0.1 Neut # (Auto) (2.0 - 7.6 x10 3/uL) 12.23 H Lymph # (Auto) (1.0 - 3.8 x10 3/uL) 0.55 L [place] # (Auto) (0.1 - 0.8 x10 3/uL) [...] 0.1 x10 3/uL) 0.00 04/27 04/27 04/27 4821 1942 2004 Blood Gas Puncture Site Art Line [...] environment with family assistance at 1849 RPT #:[id number] END OF REPORT [facility] 2023-04-28 12:52:00 [facility] ([facility]) Heart Failure Consultation REPORT#:[id number] REPORT STATUS: Signed REPORT INITIALIZATION DATE:04/28/23 TIME: 1252 PATIENT: JONG RIVAS UNIT #: [id number] ROOM/BED: [place] [address] : 66 AGE: 58 SEX: M ATTEND: Domenic Rainey MD ADM AUTHOR: Deniz Steward NP REPT SERVICE DT/TIME: 04/28/23 1252 * ALL edits or amendments must [...] lesion, and hypertension that presented initially to [facility] as an NSTEMI, he underwent angiogram and transffered to [facility] after patient was found to have multivessel [...] 37 106/52 66 95 04/28 1000 75 / 0930 37.2 70 18 106/51 66 95 04/28 0900 37.2 73 9 101/52 65 95 04/28 0800 94/57 69 04/28 0800 37.2 69 8 106/53 67 95 04/28 0730 37.1 67 23 97/48 61 95 / 0700 83/48 60 11/ 0700 37.0 65 15 97/49 62 95 04/28 0631 37.0 68 26 95/46 60 96 04/28 0630 37.0 64 25 88/43 60 95 11/ 0629 83/52 62 11/ 0629 37.0 66 27 95/45 58 94 / 0623 86/54 65 11/ 0623 37.0 67 25 98/47 61 94 / 0600 99/59 74 / 0600 37.1 66 25 117/54 71 95 / 0543 87/55 65 / 0543 37.1 68 22 99/48 62 94 04/28 0530 37.1 70 27 109/53 69 96 / 0520 116/61 82 / 0520 37.2 68 25 122/63 75 95 / 0514 84/54 65 / 0514 37.2 68 25 92/46 59 / 0508 72/48 55 / 0508 69 25 58/38 44 / 0500 68 33 / 0430 37.2 69 28 92/46 62 96 04/28 0424 37.2 69 16 112/51 68 97 04/28 0418 96 Nasal 2 28 cannula 04/28 0403 96/53 68 / 0403 37.2 71 27 105/47 65 97 [...] 0100 37.2 76 26 120/56 74 99 11/09 0030 37.2 74 22 122/56 74 100 11/09 0000 103/59 75 11/09 0000 37.2 83 18 103/51 67 99 11/08 2330 37.2 73 22 107/53 68 100 11/08 2300 102/60 74 11/08 2300 37.1 72 21 92/55 64 100 11/08 2235 114/68 85 11/08 2235 37.0 74 23 113/58 75 100 11/08 2230 37.0 73 22 105/55 69 100 /08 2219 80/57 64 /08 2219 37.0 71 19 86/48 58 98 /08 2200 83/59 66 /08 2200 36.9 73 23 98/52 65 99 /08 2153 36.9 74 19 98/51 65 98 /08 2147 90/61 70 08 2147 36.9 75 22 96/51 64 99 /08 2130 36.8 75 25 99/53 66 99 11/08 2100 81/58 65 /08 2100 36.7 74 23 83/48 58 99 /08 2056 84/57 65 /08 2056 36.7 74 23 80/48 57 99 /08 2044 83/55 64 /08 2044 36.6 74 20 88/49 61 100 /08 2030 100 Nasal 5 40 cannula 04/27 2030 36.5 73 20 94/52 64 99 08 1999 High flow 7 nasal cannula 04/27 2000 93/58 70 08 1999 36.4 81 25 98/50 63 100 / 1930 36.3 74 21 98/49 62 99 04/27 1916 90/60 71 04/27 1916 36.4 74 24 101/50 64 100 04/27 1900 84/53 63 04/27 1900 36.4 72 21 76/50 58 98 04/27 1817 High flow 7 nasal cannula 04/275 76 28 98 04/27 1725 79 98 [...] no CVA tenderness, no midline vertebral tend Neuro/HARDWOOD SAWYER: alert, oriented X 3 Skin: dry Results [...] impaired or failing: Cardiac at 1426 at 1451 RPT #:[id number] END OF REPORT [facility] 2023-04-28 11:00:00 [facility] ([facility]) Critical Care Progress Note REPORT#:[id number] REPORT STATUS: Signed REPORT INITIALIZATION DATE:04/28/23 TIME: 1100 PATIENT: JONG RIVAS UNIT #: [id number] ROOM/BED: 2201-1 : 66 AGE: 58 SEX: [...] Meds + DC'd Last 24 Hrs Ipratropium Brussels (ATROVENT) 500 MCG RTQ2H PRN PRN INH [...] 25 MCG ONCE ONE IV (DC) Ipratropium [place] (ATROVENT) 500 MCG RTQ4H INH Pantoprazole (PROTONIX) [...] CHLORIDE 0.9%) 250 ML Q24H IV Rocuronium Brussels (ZEMURON) 0 .STK-MED ONE IV (DC) Doxycycline [...] (ZOFRAN) 0 .STK-MED ONE .ROUTE (DC) Rocuronium Brussels (ZEMURON) 0 .STK-MED ONE IV (DC) Albumin [...] 500 PEEP (cmH2O) 5 04/27 04/27 04/27 11/08 1552 1500 1422 1347 Blood Gas O2 [...] Laboratory Tests 04/28 04/28 04/28 04/28 04/28 0908 0626 0211 0201 0104 Chemistry Sodium (134 [...] - 32.0 %) 4.0 L 5.1 L [place] % (Auto) (4.8 - 9.0 %) 6.7 4.9 Eos % (Auto) (0.3 - 3.7 %) 0.0 L 0.2 L Baso % (Auto) (0.0 - 2.0 %) 0.1 0.3 Neut # (Auto) (2.0 - 7.6 x10 3/uL) 12.23 H 18.07 H Lymph # (Auto) (1.0 - 3.8 x10 3/uL) 0.55 L 1.04 [place] # (Auto) (0.1 - 0.8 x10 3/uL) [...] sluggish Extremities left leg dressing, no edema HARDWOOD SAWYER alert, oriented, no FND Diagnosis, Assessment Plan [...] prophylaxis. Continue antibiotic per ID recommendation. 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 Case was discussed at bedside with the [...] with the nursing staff, respiratory therapist, pharmacist, transition social worker and cardiothoracic surgery team. Critical care time spent in excess of 41 minutes, excluding a procedure time Consultants: cardiology, cardiovascular surgery, pulmonary at 0636 RPT #:[id number] END OF REPORT [facility] 2023-04-28 10:36:00 [facility] ([facility]) Infectious Dis. Progress Note REPORT#:[id number] REPORT STATUS: Signed REPORT INITIALIZATION DATE:04/28/23 TIME: 103 PATIENT: JONG RIVAS UNIT #: [id number] ROOM/BED: [place] [address] : 67 AGE: 58 SEX: M ATTEND: [...] 98.6 64 25 88/43 60 95 04/28 629 83/52 62 04/28 629 98.6 66 27 95/45 58 94 11/09 0623 86/54 65 11/09 0623 98.6 67 25 98/47 61 94 11/09 0600 99/59 74 11/09 0600 98.8 66 25 117/54 71 95 11/09 0543 87/55 65 11/09 0543 98.8 68 22 99/48 62 94 [...] 92/55 64 100 11/08 2235 114/68 85 11/ 2235 98.6 74 23 113/58 75 100 11/08 2230 98.6 73 22 105/55 69 100 / 2219 80/57 64 11/ 221 98.6 71 19 86/48 58 98 04/270 83/59 66 04/27 2200 98.4 73 23 98/52 65 99 04/27 2153 98.4 74 19 98/51 65 98 04/27 2147 90/61 70 04/27 2147 98.4 75 22 96/51 64 99 04/27 2130 98.2 75 25 99/53 66 99 [...] 97.3 74 21 98/49 62 99 04/27 191 90/60 71 04/27 191 97.5 74 24 101/50 64 100 04/27 1900 84/53 63 04/27 1900 97.5 72 21 76/50 58 98 04/27 1817 [...] and intact; dressing not removed for exam Neuro/HARDWOOD SAWYER: alert, 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 Rivas is a 58-year-old male with history of diabetes mellitus type 2, hypertension, prior smoking history, chronic PE, chronic left foot ulcer. He was admitted at [facility] with complaints of chest pain. He had [...] negative x 2. -MRSA screen negative. -Called [facility] today. Patient's blood cultures have been negative [...] + metronidazole between 04/21/2023-04/27/2023) at 1043 RPT #:[id number] END OF REPORT [facility] 2023-04-28 10:05:00 [facility] Cardiothoracic Surgery Prog REPORT#:[id number] REPORT STATUS: Signed REPORT INITIALIZATION DATE:04/28/23 TIME: 100 PATIENT: JONG RIVAS UNIT #: [id number] ROOM/BED: [place] [address] : 66 AGE: 58 SEX: M ATTEND: [...] range of motion, painless range of motion Neuro/HARDWOOD SAWYER: 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 Patient transferred from [facility], referred to us from Dr. Forde for acute coronary syndrome, unstable angina, ischemic heart disease status post coronary angiogram, with findings of multivessel CAD, EF 50%. 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 Patient reports dyspnea on exertion and mild chest pain x1 year. 04/18/23: Coronary angiogram done at [facility] Left main patent LAD with high-grade and [...] surgery, pulmonary at 1028 at 2242 RPT #:[id number] END OF REPORT [facility] 2023-04-28 08:49:00 [facility] Clinical Note REPORT#:[id number] REPORT STATUS: Signed REPORT INITIALIZATION DATE:04/28/23 TIME: 08 PATIENT: JONG RIVAS UNIT #: [id number] ROOM/BED: [place] [address] : 67 AGE: 58 SEX: M ATTEND: [...] STS with complete data at 0850 RPT #:[id number] END OF REPORT [facility] 2023-04-28 04:12:00 [id number] [place] [id number] PATIENT NAME: JONG RIVAS ADMIT DATE: 04/19/23 ACCOUNT NO: [id number] ROOM NO: G.3343 AGE: 58 REPORT TYPE: eELECTROCARDIOGRAM REPORT SEX: M ADMITTING PHYSICIAN:Domenic Rainey MD ATTENDING PHYSICIAN:Domenic Rainey MD Order: [id number] Test Reason : Cardiac Surgery Post Op [...] MD at 1654 PATIENT NAME: JONG RIVAS [facility] 2023-04-27 21:30:00 [id number] [place] [id number] PATIENT NAME: JONG RIVAS ADMIT DATE: 04/19/23 ACCOUNT NO: [id number] ROOM NO: G.2201 AGE: 58 REPORT TYPE: [...] greater saphenous vein). SURGEON: Deepti Rainey M.D. STILL CLEANER TUBE: Marcy Prince M.D. ANESTHESIOLOGIST: Dr. Hernandez. ANESTHESIA: [...] mm in size. Arteriotomy was performed with [place] blade and extended with Fitzgerald scissors. A [...] in size. Arteriotomy was performed with a [place] blade and extended with Fitzgerald scissors. A [...] in size. Arteriotomy was performed with a [place] blade and extended with Fitzgerald scissors. A [...] in size. Arteriotomy was performed with a [place] blade and extended with Fitzgerald scissors. RICHARDS was sized. Arteriotomy was performed on the RICHARDS at appropriate site and wjxs-ue-[id number] anastomosis was created between RICHARDS and diagonal using running 8-0 Prolene suture. Finally, LAD was explored. This was a good quality artery, measuring 2 mm in size. Arteriotomy was performed with a [place] blade and extended with Fitzgerald scissors. RICHARDS [...] released. One ventricular wire was placed. A 28-Albanian chest tube was placed in the mediastinum [...] Dictated: 04/27/2023 21:30:26 Date Transcribed: 04/27/2023 22:07:30 /MARILUZ Receipt ID: [id number] Authenticated by Domenic Rainey MD On 04/28/2023 09:48:03 PM at 0948 PATIENT NAME: JONG RIVAS [facility] 2023-04-27 17:32:00 [facility] ([facility]) Critical Care Consult Note REPORT#:[id number] REPORT STATUS: Signed REPORT INITIALIZATION DATE:04/27/23 TIME: 1731 PATIENT: JONG RIVAS UNIT #: [id number] ROOM/BED: 2201-1 : 67 AGE: 58 SEX: M ATTEND: Domenic Rainey MD ADM AUTHOR: Javier Marques MD REPT SERVICE DT/TIME: 04/27/23 7382 * ALL edits or amendments must be made on the electronic/computer document * History of Present Illness HPI Requesting clinician: Dr Rainey Reason for consult: Critical care management Chief complaint: CABG x 5 (RICHARDS-LAD, Seq-diag, SVG-OM1, SVG-OM2, SVG-PDA) EVH (LGSV) YULIA PCP: PCP: Undefined Provider HPI: 58-year-old male, [...] Meds + DC'd Last 24 Hrs Ipratropium [place] (ATROVENT) 500 MCG RTQ2H PRN PRN INH [...] Aspirin (ASPIRIN) 81 MG DAILY PO Ipratropium [place] (ATROVENT) 500 MCG RTQ4H INH Pantoprazole (PROTONIX) [...] CHLORIDE 0.9%) 250 ML Q24H IV Rocuronium [place] (ZEMURON) 0 .STK-MED ONE IV (DC) Doxycycline [...] (ZOFRAN) 0 .STK-MED ONE .ROUTE (DC) Rocuronium [place] (ZEMURON) 0 .STK-MED ONE IV (DC) Albumin [...] (14.0 - 32.0 %) 5.1 L 29.4 [place] % (Auto) (4.8 - 9.0 %) 4.9 7.5 Eos % (Auto) (0.3 - 3.7 %) 0.2 L 1.8 Baso % (Auto) (0.0 - 2.0 %) 0.3 0.7 Neut # (Auto) (2.0 - 7.6 x10 3/uL) 18.07 H 4.27 Lymph # (Auto) (1.0 - 3.8 x10 3/uL) 1.04 2.09 [place] # (Auto) (0.1 - 0.8 x10 3/uL) [...] Report Impression - Status: SIGNED Entered: 04/27/2023 3266 IMPRESSION: Interval postoperative changes with support tubes and lines in good position. No pneumothorax. Pulmonary edema and small left pleural effusion. Impression By: [email or web address] - Indira Smiley M.D. Free Text Obj Notes Free Text Obj Notes: Middle-age male lying in bed on ventilatory support Pupil equal reactive to light Neck supple Chest with sternotomy dressing, [address] Heart S1-S2 Abdomen soft, could not appreciate bowel sound Extremities left leg dressing, no edema HARDWOOD SAWYER sedated Diagnosis, Assessment Plan Free text DxA [...] prophylaxis. Continue antibiotic per ID recommendation. 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 Case was discussed at bedside with the nursing staff and respiratory therapist. Critical care time spent in excess of 45 minutes, excluding a procedure time at 0820 RPT #:[id number] END OF REPORT [facility] 2023-04-27 16:59:00 [id number] [place] [id number] PATIENT NAME: JONG RIVAS ADMIT DATE: 04/19/23 ACCOUNT NO: [id number] ROOM NO: 3343 AGE: 58 REPORT TYPE: eELECTROCARDIOGRAM REPORT SEX: M ADMITTING PHYSICIAN:Domenic Rainey MD ATTENDING PHYSICIAN:Domenic Rainey MD Order: [id number] Test Reason : Cardiac Surgery Post Op [...] MD at 1654 PATIENT NAME: JONG RIVAS [facility] 2023-04-27 16:09:00 [facility] Brief Op Note REPORT#:[id number] REPORT STATUS: Signed REPORT INITIALIZATION DATE:04/27/23 TIME: 1609 PATIENT: JONG RIVAS UNIT #: [id number] ROOM/BED: 2201-1 : 66 AGE: 58 SEX: [...] SVG-PDA) EVH (LGSV) ALAA Primary Surgeon: Brigid Qualification Engineer(s): Marcy Prince Findings: LAD-2mm Complications: none Estimated blood loss in ml's: 100 cc Specimens removed/altered: ANNA at 0610 RPT #:[id number] END OF REPORT [facility] 2023-04-27 15:05:00 [id number] [place] [id number] PATIENT NAME: JONG RIVAS ADMIT DATE: 04/19/23 ACCOUNT NO: [id number] ROOM NO: [id number] AGE: 58 REPORT TYPE: OPERATIVE REPORT SEX: M ADMITTING PHYSICIAN:Domenic Rainey MD ATTENDING PHYSICIAN:Domenic Rainey MD OPERATION DATE: 04/27/2023 PREOPERATIVE DIAGNOSIS: Coronary artery disease. POSTOPERATIVE DIAGNOSIS: Coronary artery disease. PROCEDURE: Coronary artery bypass grafting. SURGEON: Deepti Rainey MD. STILL CLEANER TUBE SURGEON: Marcy Prince MD. ANESTHESIA: PROCEDURE IN DETAIL: Please refer to the detailed operative note by Dr. Rainey. I assisted Dr. Rainey during all the critical portions of the surgery including conduits, .. Dictated By: Marcy Prince MD Date Dictated: 04/27/2023 15:05:28 Date Transcribed: 04/27/2023 15:16:42 ABILIO/MONISHA Receipt ID: [id number] Authenticated by Marcy Prince MD, FACS On 04/28/2023 10:00:59 AM at 1000 PATIENT NAME: JONG RIVAS [facility] 2023-04-27 15:01:00 [facility] ([facility]) Endocrinology Progress Note REPORT#:[id number] REPORT STATUS: Signed REPORT INITIALIZATION DATE:04/27/23 TIME: 150 PATIENT: JONG RIVAS UNIT #: [id number] ROOM/BED: [place] [address] : 66 AGE: 58 SEX: M ATTEND: [...] Meds + DC'd Last 24 Hrs Ipratropium [place] (ATROVENT) 500 MCG RTQ2H PRN PRN INH [...] Aspirin (ASPIRIN) 81 MG DAILY PO Ipratropium [place] (ATROVENT) 500 MCG RTQ4H INH (UNV) Amiodarone [...] CHLORIDE 0.9%) 250 ML Q24H IV Rocuronium [place] (ZEMURON) 0 .STK-MED ONE IV (DC) Doxycycline [...] (ZOFRAN) 0 .STK-MED ONE .ROUTE (DC) Rocuronium [place] (ZEMURON) 0 .STK-MED ONE IV (DC) Albumin [...] INR (0.8 - 1.2) 1.5 H PTT ([place]) (25.0 - 39.5 Seconds) 32.7 PT Patient/Control [...] % (Auto) (14.0 - 32.0 %) 29.4 Mar[place]osa % (Auto) (4.8 - 9.0 %) 7.5 Eos % (Auto) (0.3 - 3.7 %) 1.8 Baso % (Auto) (0.0 - 2.0 %) 0.7 Neut # (Auto) (2.0 - 7.6 x10 3/uL) 4.27 Lymph # (Auto) (1.0 - 3.8 x10 3/uL) 2.09 Mar[place]osa # (Auto) (0.1 - 0.8 x10 3/uL) [...] Laboratory Tests: 04/26 04/26 04/26 04/25 1123 0755 0501 2028 Chemistry Sodium (134 - 147 mEq/L) [...] % (Auto) (14.0 - 32.0 %) 30.8 Mar[place] % (Auto) (4.8 - 9.0 %) 7.8 Eos % (Auto) (0.3 - 3.7 %) 1.7 Baso % (Auto) (0.0 - 2.0 %) 0.5 Neut # (Auto) (2.0 - 7.6 x10 3/uL) 4.38 Lymph # (Auto) (1.0 - 3.8 x10 3/uL) 2.30 Mariposa # (Auto) (0.1 - 0.8 x10 3/uL) [...] (Auto) (14.0 - 32.0 %) 11.5 L [place] % (Auto) (4.8 - 9.0 %) 6.9 Eos % (Auto) (0.3 - 3.7 %) 0.2 L Baso % (Auto) (0.0 - 2.0 %) 0.2 Neut # (Auto) (2.0 - 7.6 x10 3/uL) 9.65 H Lymph # (Auto) (1.0 - 3.8 x10 3/uL) 1.37 Mar[place]osa # (Auto) (0.1 - 0.8 x10 3/uL) [...] % (Auto) (14.0 - 32.0 %) 21.2 [place] % (Auto) (4.8 - 9.0 %) 7.9 Eos % (Auto) (0.3 - 3.7 %) 1.9 Baso % (Auto) (0.0 - 2.0 %) 0.4 Neut # (Auto) (2.0 - 7.6 x10 3/uL) 5.28 Lymph # (Auto) (1.0 - 3.8 x10 3/uL) 1.65 Mar[place]osa # (Auto) (0.1 - 0.8 x10 3/uL) [...] % (Auto) (14.0 - 32.0 %) 18.0 [place] % (Auto) (4.8 - 9.0 %) 8.4 Eos % (Auto) (0.3 - 3.7 %) 0.8 Baso % (Auto) (0.0 - 2.0 %) 0.4 Neut # (Auto) (2.0 - 7.6 x10 3/uL) 7.28 Lymph # (Auto) (1.0 - 3.8 x10 3/uL) 1.82 Mar[place]osa # (Auto) (0.1 - 0.8 x10 3/uL) [...] % (Auto) (14.0 - 32.0 %) 23.5 [place] % (Auto) (4.8 - 9.0 %) 7.4 Eos % (Auto) (0.3 - 3.7 %) 2.0 Baso % (Auto) (0.0 - 2.0 %) 0.6 Neut # (Auto) (2.0 - 7.6 x10 3/uL) 5.66 Lymph # (Auto) (1.0 - 3.8 x10 3/uL) 2.01 Mar[place] # (Auto) (0.1 - 0.8 x10 3/uL) [...] % (Auto) (14.0 - 32.0 %) 27.0 [place] % (Auto) (4.8 - 9.0 %) 8.9 Eos % (Auto) (0.3 - 3.7 %) 1.7 Baso % (Auto) (0.0 - 2.0 %) 0.7 Neut # (Auto) (2.0 - 7.6 x10 3/uL) 4.28 Lymph # (Auto) (1.0 - 3.8 x10 3/uL) 1.89 Mariposa # (Auto) (0.1 - 0.8 x10 3/uL) [...] pH (5.0 - 7.0) 5.0 Ur Specific Asher (1.005 - 1.030) 1.011 Urine Protein (NEGATIVE) [...] INR (0.8 - 1.2) 1.3 H PTT ([place]) (25.0 - 39.5 Seconds) 39.3 PT Patient/Control [...] op. Diabetes dietary education. at 1503 RPT #:[id number] END OF REPORT [facility] 2023-04-27 10:49:00 [facility] Cardiology Progress Note REPORT#:[id number] REPORT STATUS: Signed REPORT INITIALIZATION DATE:04/27/23 TIME: 104 PATIENT: JONG RIVAS UNIT #: [id number] ROOM/BED: [facility] [place]-1 : 66 AGE: 58 SEX: M ATTEND: Domenic Rainey MD ADM AUTHOR: Noemí Nieto MD REPT SERVICE DT/TIME: 04/27/23 1049 * ALL edits or amendments must be made on the electronic/computer document * Subjective HPI: 58-year-old male with past medical history of yka-kemvaor-nuhxbbegi diabetes mellitus, hypertension, history of PE previously on anticoagulation, right lung cavitary lesion was seen at [facility] on 04/15/2023 with a complaint of shortness [...] to have UTI. Patient was transferred to [facility] for further work-up including possible evaluation [...] INR (0.8 - 1.2) 1.5 H PTT ([place]) (25.0 - 39.5 Seconds) 32.7 PT Patient/Control [...] % (Auto) (14.0 - 32.0 %) 29.4 Mariposa % (Auto) (4.8 - 9.0 %) 7.5 Eos % (Auto) (0.3 - 3.7 %) 1.8 Baso % (Auto) (0.0 - 2.0 %) 0.7 Neut # (Auto) (2.0 - 7.6 x10 3/uL) 4.27 Lymph # (Auto) (1.0 - 3.8 x10 3/uL) 2.09 Mariposa # (Auto) (0.1 - 0.8 x10 3/uL) [...] Ag (Rapid) (Negative) Negative Laboratory Tests 04/27 322 Chemistry Magnesium (1.6 - 2.6 mg/dL) 1.66 [...] 12 hourly. at 1051 at 0129 RPT #:[id number] END OF REPORT [facility] 2023-04-27 10:40:00 [facility] ([facility] Infectious Dis. Progress Note REPORT#:[id number] REPORT STATUS: Signed REPORT INITIALIZATION DATE:04/27/23 TIME: 104 PATIENT: JONG RIVAS UNIT #: [id number] ROOM/BED: [facility] [place]-1 : 66 AGE: 58 SEX: M ATTEND: [...] Pulse Ox 98 04/27 0650 B/P 130/77 / 0650 B/P Mean 0.0 04/27 0650 O2 [...] and intact; dressing not removed for exam Neuro/HARDWOOD SAWYER: alert, 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 Rivas is a 58-year-old male with history of diabetes mellitus type 2, hypertension, prior smoking history, chronic PE, chronic left foot ulcer. He was admitted at [facility] with complaints of chest pain. He had [...] negative x 2. -MRSA screen negative. -Called [facility] today. Patient's blood cultures have been negative [...] started 04/27/2023, day 1 at 1044 RPT #:[id number] END OF REPORT [facility] 2023-04-27 09:25:00 [facility] ([facility]) Clinical Note REPORT#:[id number] REPORT STATUS: Signed REPORT INITIALIZATION DATE:04/27/23 TIME: 924 PATIENT: JONG RIVAS UNIT #: [id number] ROOM/BED: [facility] [place] : 66 AGE: 58 SEX: M ATTEND: Domenic Rianey MD ADM AUTHOR: Mehran Jewell MD REPT SERVICE DT/TIME: 04/27/23924 * ALL edits or amendments must be made on the electronic/computer document * See Addendum Clinical Note Note: STS SCORES MORT 0.47% CVA 0.83% JOZEF 0.49% VENT 1.38% DSWI 0.22% LOS 1.74% at 0928 Addendum 1: 04/27/23 1303 by Mehran Jewell MD please see ammended STS scores based on additional data at 1304 RPT #:[id number] END OF REPORT [facility] 2023-04-27 07:13:00 [facility] ([facility]) Cardiothoracic Surgery Prog REPORT#:[id number] REPORT STATUS: Signed REPORT INITIALIZATION DATE:04/27/23 TIME: 712 PATIENT: JONG RIVAS UNIT #: [id number] [place]: [facility] [place] : 66 AGE: 58 SEX: M ATTEND: [...] range of motion, painless range of motion Neuro/HARDWOOD SAWYER: alert, oriented X 3 Psychiatry: normal affect, normal judgment/insight Diagnosis, Assessment Plan Free Text Claudia P: 57-year-old male, poor historian, PMHx diabetes on metformin, neuropathy, HTN, former smoker, PE chronic nonhealing left foot ulcer at the fifth metatarsal located posterior lateral, with no known prior cardiovascular disease. Patient transferred from [facility], referred to us from Dr. Forde for acute coronary syndrome, unstable angina, ischemic heart disease status post coronary angiogram, with findings of multivessel CAD, EF 50%. 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 Patient reports dyspnea on exertion and mild chest pain x1 year. 04/18/23: Coronary angiogram done at [facility] Left main patent LAD with high-grade and [...] surgery. Consultants: cardiology, cardiovascular surgery, pulmonary at 1232 at 0652 RPT #:[id number] END OF REPORT [facility] 2023-04-26 17:35:00 [facility] ([facility]) Endocrinology Progress Note REPORT#:[id number] REPORT STATUS: Signed REPORT INITIALIZATION DATE:04/26/23 TIME: 1734 PATIENT: JONG RIVAS UNIT #: [id number] ROOM/BED: [place] [address] : 66 AGE: 58 SEX: M ATTEND: Domenic Rainey MD ADM AUTHOR: Vlad Lay MD REPT SERVICE DT/TIME: 04/26/231734 * ALL edits or amendments must be made on the electronic/computer document * Subjective Patient reports: no complaints Objective General VS: Last Documented: Result Date Time Pulse Ox 96 04/26 1606 B/P 120/71 04/26 1606 B/P Mean 0.0 04/26 160 O2 Delivery Room air 04/26 1606 Temp 36.8 04/26 1606 Pulse 96 04/26 1606 Resp 12 04/26 1606 O2 Flow Rate 7 04/24 1013 PATIENT [...] % (Auto) (14.0 - 32.0 %) 30.8 [place] % (Auto) (4.8 - 9.0 %) 7.8 Eos % (Auto) (0.3 - 3.7 %) 1.7 Baso % (Auto) (0.0 - 2.0 %) 0.5 Neut # (Auto) (2.0 - 7.6 x10 3/uL) 4.38 Lymph # (Auto) (1.0 - 3.8 x10 3/uL) 2.30 [place] # (Auto) (0.1 - 0.8 x10 3/uL) [...] Laboratory Tests: 04/25 04/25 04/25 04/24 1126 4547 4538 2002 Chemistry Sodium (134 - 147 mEq/L) [...] (Auto) (14.0 - 32.0 %) 11.5 L [place] % (Auto) (4.8 - 9.0 %) 6.9 Eos % (Auto) (0.3 - 3.7 %) 0.2 L Baso % (Auto) (0.0 - 2.0 %) 0.2 Neut # (Auto) (2.0 - 7.6 x10 3/uL) 9.65 H Lymph # (Auto) (1.0 - 3.8 x10 3/uL) 1.37 [place] # (Auto) (0.1 - 0.8 x10 3/uL) [...] % (Auto) (14.0 - 32.0 %) 21.2 [place] % (Auto) (4.8 - 9.0 %) 7.9 Eos % (Auto) (0.3 - 3.7 %) 1.9 Baso % (Auto) (0.0 - 2.0 %) 0.4 Neut # (Auto) (2.0 - 7.6 x10 3/uL) 5.28 Lymph # (Auto) (1.0 - 3.8 x10 3/uL) 1.65 [place] # (Auto) (0.1 - 0.8 x10 3/uL) [...] % (Auto) (14.0 - 32.0 %) 18.0 [place] % (Auto) (4.8 - 9.0 %) 8.4 Eos % (Auto) (0.3 - 3.7 %) 0.8 Baso % (Auto) (0.0 - 2.0 %) 0.4 Neut # (Auto) (2.0 - 7.6 x10 3/uL) 7.28 Lymph # (Auto) (1.0 - 3.8 x10 3/uL) 1.82 [place] # (Auto) (0.1 - 0.8 x10 3/uL) [...] tissue abscess. Impression By: [email or web address] - Aaron J Katrina Goldberg Laboratory Tests: 04/22 04/21 04/21 0421 1956 [...] % (Auto) (14.0 - 32.0 %) 23.5 [place] % (Auto) (4.8 - 9.0 %) 7.4 Eos % (Auto) (0.3 - 3.7 %) 2.0 Baso % (Auto) (0.0 - 2.0 %) 0.6 Neut # (Auto) (2.0 - 7.6 x10 3/uL) 5.66 Lymph # (Auto) (1.0 - 3.8 x10 3/uL) 2.01 [place] # (Auto) (0.1 - 0.8 x10 3/uL) [...] % (Auto) (14.0 - 32.0 %) 27.0 [place] % (Auto) (4.8 - 9.0 %) 8.9 Eos % (Auto) (0.3 - 3.7 %) 1.7 Baso % (Auto) (0.0 - 2.0 %) 0.7 Neut # (Auto) (2.0 - 7.6 x10 3/uL) 4.28 Lymph # (Auto) (1.0 - 3.8 x10 3/uL) 1.89 [place] # (Auto) (0.1 - 0.8 x10 3/uL) [...] pH (5.0 - 7.0) 5.0 Ur Specific Asher (1.005 - 1.030) 1.011 Urine Protein (NEGATIVE) [...] INR (0.8 - 1.2) 1.3 H PTT ([place]) (25.0 - 39.5 Seconds) 39.3 PT Patient/Control [...] dose. Diabetes dietary education. at 1736 RPT #:[id number] END OF REPORT [facility] 2023-04-26 15:20:00 [facility] Cardiothoracic Surgery Prog REPORT#:[id number] REPORT STATUS: Signed REPORT INITIALIZATION DATE:04/26/23 TIME: 1519 PATIENT: JONG RIVAS UNIT #: [id number] ROOM/BED: [place] [address] : 66 AGE: 58 SEX: M ATTEND: [...] range of motion, painless range of motion Neuro/HARDWOOD SAWYER: alert, oriented X 3 Psychiatry: normal affect, [...] % (Auto) (14.0 - 32.0 %) 30.8 Mar[place]osa % (Auto) (4.8 - 9.0 %) 7.8 Eos % (Auto) (0.3 - 3.7 %) 1.7 Baso % (Auto) (0.0 - 2.0 %) 0.5 Neut # (Auto) (2.0 - 7.6 x10 3/uL) 4.38 Lymph # (Auto) (1.0 - 3.8 x10 3/uL) 2.30 Mar[place] # (Auto) (0.1 - 0.8 x10 3/uL) [...] known prior cardiovascular disease. Patient transferred from [facility], referred to us from Dr. Forde for acute coronary syndrome, unstable angina, ischemic heart disease status post coronary angiogram, with findings of multivessel CAD, EF 50%. 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 Patient reports dyspnea on exertion and mild chest pain x1 year. 04/18/23: Coronary angiogram done at [facility] Left main patent LAD with high-grade and [...] MD, nurse at 1521 at 0536 RPT #:[id number] END OF REPORT [facility] 2023-04-26 12:22:00 [facility] Cardiology Progress Note REPORT#:[id number] REPORT STATUS: Signed REPORT INITIALIZATION DATE:04/26/23 TIME: 1221 PATIENT: JONG RIVAS UNIT #: [id number] ROOM/BED: 3343-1 : 66 AGE: 58 SEX: M ATTEND: Domenic Rainey MD ADM AUTHOR: Noemí Nieto MD REPT SERVICE DT/TIME: 04/26/23 1222 * ALL edits or amendments must be made on the electronic/computer document * Subjective HPI: 58-year-old male with past medical history of tcr-lualkcv-spizqitdv diabetes mellitus, hypertension, history of PE previously on anticoagulation, right lung cavitary lesion was seen at [facility] on 04/15/2023 with a complaint of shortness [...] to have UTI. Patient was transferred to [facility] for further work-up including possible evaluation [...] Findings/Data: Laboratory Tests 04/26 04/26 04/25 04/25 0744 3303 0696 1627 Chemistry Sodium (134 - 147 mEq/L) [...] % (Auto) (14.0 - 32.0 %) 30.8 Mariposa % (Auto) (4.8 - 9.0 %) 7.8 Eos % (Auto) (0.3 - 3.7 %) 1.7 Baso % (Auto) (0.0 - 2.0 %) 0.5 Neut # (Auto) (2.0 - 7.6 x10 3/uL) 4.38 Lymph # (Auto) (1.0 - 3.8 x10 3/uL) 2.30 Mariposa # (Auto) (0.1 - 0.8 x10 3/uL) [...] 12 hourly. at 1223 at 0714 RPT #:[id number] END OF REPORT [facility] 2023-04-25 17:38:00 [facility] Endocrinology Progress Note REPORT#:[id number] REPORT STATUS: Signed REPORT INITIALIZATION DATE:04/25/23 TIME: 1737 PATIENT: JONG RIVAS UNIT #: [id number] ROOM/BED: [place] [address] : 66 AGE: 58 SEX: M ATTEND: [...] Laboratory Tests: 04/25 04/25 04/25 04/24 1126 0774 0226 2002 Chemistry Sodium (134 - 147 mEq/L) [...] (Auto) (14.0 - 32.0 %) 11.5 L [place] % (Auto) (4.8 - 9.0 %) 6.9 Eos % (Auto) (0.3 - 3.7 %) 0.2 L Baso % (Auto) (0.0 - 2.0 %) 0.2 Neut # (Auto) (2.0 - 7.6 x10 3/uL) 9.65 H Lymph # (Auto) (1.0 - 3.8 x10 3/uL) 1.37 [place] # (Auto) (0.1 - 0.8 x10 3/uL) [...] % (Auto) (14.0 - 32.0 %) 21.2 [place] % (Auto) (4.8 - 9.0 %) 7.9 Eos % (Auto) (0.3 - 3.7 %) 1.9 Baso % (Auto) (0.0 - 2.0 %) 0.4 Neut # (Auto) (2.0 - 7.6 x10 3/uL) 5.28 Lymph # (Auto) (1.0 - 3.8 x10 3/uL) 1.65 [place] # (Auto) (0.1 - 0.8 x10 3/uL) [...] % (Auto) (14.0 - 32.0 %) 18.0 [place] % (Auto) (4.8 - 9.0 %) 8.4 Eos % (Auto) (0.3 - 3.7 %) 0.8 Baso % (Auto) (0.0 - 2.0 %) 0.4 Neut # (Auto) (2.0 - 7.6 x10 3/uL) 7.28 Lymph # (Auto) (1.0 - 3.8 x10 3/uL) 1.82 [place] # (Auto) (0.1 - 0.8 x10 3/uL) [...] % (Auto) (14.0 - 32.0 %) 23.5 [place] % (Auto) (4.8 - 9.0 %) 7.4 Eos % (Auto) (0.3 - 3.7 %) 2.0 Baso % (Auto) (0.0 - 2.0 %) 0.6 Neut # (Auto) (2.0 - 7.6 x10 3/uL) 5.66 Lymph # (Auto) (1.0 - 3.8 x10 3/uL) 2.01 [place] # (Auto) (0.1 - 0.8 x10 3/uL) [...] % (Auto) (14.0 - 32.0 %) 27.0 [place] % (Auto) (4.8 - 9.0 %) 8.9 Eos % (Auto) (0.3 - 3.7 %) 1.7 Baso % (Auto) (0.0 - 2.0 %) 0.7 Neut # (Auto) (2.0 - 7.6 x10 3/uL) 4.28 Lymph # (Auto) (1.0 - 3.8 x10 3/uL) 1.89 [place] # (Auto) (0.1 - 0.8 x10 3/uL) [...] pH (5.0 - 7.0) 5.0 Ur Specific Asher (1.005 - 1.030) 1.011 Urine Protein (NEGATIVE) [...] INR (0.8 - 1.2) 1.3 H PTT ([place]) (25.0 - 39.5 Seconds) 39.3 PT Patient/Control [...] insulin dose. Diabetes dietary education. at 1739 RPT #:[id number] END OF REPORT [facility] 2023-04-25 14:41:00 [facility] Cardiothoracic Surgery Prog REPORT#:[id number] REPORT STATUS: Signed REPORT INITIALIZATION DATE:04/25/23 TIME: 144 PATIENT: JONG RIVAS UNIT #: [id number] ROOM/BED: [place] [address] : 66 AGE: 58 SEX: M ATTEND: Domenic Rainey MD ADM AUTHOR: Mirian Robin SCREEN MAKING TECHNICIAN REPT SERVICE DT/TIME: 04/25/23 1441 * ALL [...] 98/56 04/25 1130 B/P Mean 0.0 04/25 113 O2 Delivery Room air 04/25 1130 Temp 97.3 04/25 113 Pulse 64 04/25 113 Resp 16 04/25 113 O2 Flow Rate [...] range of motion, painless range of motion Neuro/HARDWOOD SAWYER: alert, oriented X 3 Psychiatry: normal affect, [...] 04/25 04/25 04/25 04/24 04/24 1126 0720 221 2002 153 Chemistry Sodium (134 - 147 mEq/L) 134 [...] - 2.6 mg/dL) 1.60 Laboratory Tests 04/25 222 Hematology WBC (4.5 - 11.0 x10 3/uL) [...] (Auto) (14.0 - 32.0 %) 11.5 L [place] % (Auto) (4.8 - 9.0 %) 6.9 Eos % (Auto) (0.3 - 3.7 %) 0.2 L Baso % (Auto) (0.0 - 2.0 %) 0.2 Neut # (Auto) (2.0 - 7.6 x10 3/uL) 9.65 H Lymph # (Auto) (1.0 - 3.8 x10 3/uL) 1.37 [place] # (Auto) (0.1 - 0.8 x10 3/uL) [...] known prior cardiovascular disease. Patient transferred from [facility], referred to us from Dr. Forde for acute coronary syndrome, unstable angina, ischemic heart disease status post coronary angiogram, with findings of multivessel CAD, EF 50%. 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 Patient reports dyspnea on exertion and mild chest pain x1 year. 04/18/23: Coronary angiogram done at [facility] Left main patent LAD with high-grade and [...] discussed with: patient, collaborating MD, nurse at 0024 at 0229 RPT #:[id number] END OF REPORT [facility] 2023-04-25 12:14:00 [facility] Cardiology Progress Note REPORT#:[id number] REPORT STATUS: Signed REPORT INITIALIZATION DATE:04/25/23 TIME: 1213 PATIENT: JONG RIVAS UNIT #: [id number] ROOM/BED: 3343-1 : 66 AGE: 58 SEX: M ATTEND: Domenic Rainey MD ADM AUTHOR: Noemí Nieto MD REPT SERVICE DT/TIME: 04/25/23 1214 * ALL edits or amendments must be made on the electronic/computer document * Subjective HPI: 58-year-old male with past medical history of ulw-jivzvjs-dfbatsqpd diabetes mellitus, hypertension, history of PE previously on anticoagulation, right lung cavitary lesion was seen at [facility] on 04/15/2023 with a complaint of shortness [...] to have UTI. Patient was transferred to [facility] for further work-up including possible evaluation [...] PRN PRN PO Results Findings/Data: Laboratory Tests 04/2520 221 2002 1532 Chemistry Sodium (134 - 147 [...] - 2.6 mg/dL) 1.60 Laboratory Tests 04/25 222 Hematology WBC (4.5 - 11.0 x10 3/uL) [...] (Auto) (14.0 - 32.0 %) 11.5 L [place] % (Auto) (4.8 - 9.0 %) 6.9 Eos % (Auto) (0.3 - 3.7 %) 0.2 L Baso % (Auto) (0.0 - 2.0 %) 0.2 Neut # (Auto) (2.0 - 7.6 x10 3/uL) 9.65 H Lymph # (Auto) (1.0 - 3.8 x10 3/uL) 1.37 [place] # (Auto) (0.1 - 0.8 x10 3/uL) [...] 0.1 x10 3/uL) 0.00 Laboratory Tests 04/25 0222 Chemistry Magnesium (1.6 - 2.6 mg/dL) 1.60 [...] 12 hourly. at 1218 at 0713 RPT #:[id number] END OF REPORT [facility] 2023-04-25 10:02:00 [facility] ([facility] Infectious Dis. Progress Note REPORT#:[id number] REPORT STATUS: Signed REPORT INITIALIZATION DATE:04/25/23 TIME: 1002 PATIENT: JONG RIVAS UNIT #: [id number] ROOM/BED: 3357-1 : 66 AGE: 58 SEX: [...] no distention Extremities: no cyanosis, no edema Neuro/HARDWOOD SAWYER: alert, 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 Rivas is a 58-year-old male with history of diabetes mellitus type 2, hypertension, prior smoking history, chronic PE, chronic left foot ulcer. He was admitted at [facility] with complaints of chest pain. He had [...] negative x 2. -MRSA screen negative. -Called [facility] today. Patient's blood cultures have been negative [...] started 04/21/2023, day 5 at 1656 RPT #:[id number] END OF REPORT [facility] 2023-04-24 17:33:00 [facility] ([facility]) Endocrinology Progress Note REPORT#:[id number] REPORT STATUS: Signed REPORT INITIALIZATION DATE:04/24/23 TIME: 1732 PATIENT: JONG RIVAS UNIT #: [id number] ROOM/BED: [place] [address] : 67 AGE: 58 SEX: M ATTEND: Domenic Rainey MD ADM AUTHOR: Vlad Lay MD REPT SERVICE DT/TIME: 04/24/231732 * ALL edits or amendments must be made on the electronic/computer document * Subjective Patient reports: no complaints Objective General VS: Last Documented: Result Date Time Pulse Ox 97 04/24 170 Pulse 84 04/24 1709 Resp 25 04/24 [...] % (Auto) (14.0 - 32.0 %) 21.2 [place] % (Auto) (4.8 - 9.0 %) 7.9 Eos % (Auto) (0.3 - 3.7 %) 1.9 Baso % (Auto) (0.0 - 2.0 %) 0.4 Neut # (Auto) (2.0 - 7.6 x10 3/uL) 5.28 Lymph # (Auto) (1.0 - 3.8 x10 3/uL) 1.65 [place] # (Auto) (0.1 - 0.8 x10 3/uL) [...] % (Auto) (14.0 - 32.0 %) 18.0 [place] % (Auto) (4.8 - 9.0 %) 8.4 Eos % (Auto) (0.3 - 3.7 %) 0.8 Baso % (Auto) (0.0 - 2.0 %) 0.4 Neut # (Auto) (2.0 - 7.6 x10 3/uL) 7.28 Lymph # (Auto) (1.0 - 3.8 x10 3/uL) 1.82 [place] # (Auto) (0.1 - 0.8 x10 3/uL) [...] % (Auto) (14.0 - 32.0 %) 23.5 [place] % (Auto) (4.8 - 9.0 %) 7.4 Eos % (Auto) (0.3 - 3.7 %) 2.0 Baso % (Auto) (0.0 - 2.0 %) 0.6 Neut # (Auto) (2.0 - 7.6 x10 3/uL) 5.66 Lymph # (Auto) (1.0 - 3.8 x10 3/uL) 2.01 [place] # (Auto) (0.1 - 0.8 x10 3/uL) [...] % (Auto) (14.0 - 32.0 %) 27.0 [place] % (Auto) (4.8 - 9.0 %) 8.9 Eos % (Auto) (0.3 - 3.7 %) 1.7 Baso % (Auto) (0.0 - 2.0 %) 0.7 Neut # (Auto) (2.0 - 7.6 x10 3/uL) 4.28 Lymph # (Auto) (1.0 - 3.8 x10 3/uL) 1.89 [place] # (Auto) (0.1 - 0.8 x10 3/uL) [...] pH (5.0 - 7.0) 5.0 Ur Specific [place] (1.005 - 1.030) 1.011 Urine Protein (NEGATIVE) [...] dose. Diabetes dietary education. at 1733 RPT #:[id number] END OF REPORT [facility] 2023-04-24 13:06:00 [id number] [place] [address] PATIENT NAME: JONG RIVAS ADMIT DATE: 04/19/23 ACCOUNT NO: [id number] ROOM NO: [facility] [place] AGE: 58 REPORT TYPE: OPERATIVE REPORT SEX: [...] metatarsal head resection. SURGEON: Betty Moe DPM. STILL CLEANER TUBE: , DPM, PGY-1. ANESTHESIA: General and local block. HEMOSTASIS: [...] the plantar and dorsal foot. Using a [place], the subcutaneous tissue layers were explored with any sinus tract gross debris and to free up any remaining fluid matter bone, capsule, tendon and other deep structures. PROCEDURE #2: Left foot fifth proximal phalanx and fifth metatarsal head resection. Attention was directed to the left foot fifth proximal phalanx and fifth metatarsal head. Using a [place], all periosteum was lifted off the bone. [...] PATIENT NAME: JONG RIVAS /BENNETT/HEM/NAG Receipt ID: [id number] Authenticated by Betty Moe DPM On 05/23/2023 09:42:34 PM at 0942 PATIENT NAME: JONG RIVAS [facility] 2023-04-24 12:50:00 [facility]g REPORT#:[id number] REPORT STATUS: Signed REPORT INITIALIZATION DATE:04/24/23 TIME: 1250 PATIENT: JONG RIVAS UNIT #: [id number] ROOM/BED: [place] [address] : 66 AGE: 58 SEX: M ATTEND: Domenic Rainey MD ADM AUTHOR: Mirian Robin SCREEN MAKING TECHNICIAN REPT SERVICE DT/TIME: 04/24/23 1250 * ALL [...] Ox 97 04/24 111 B/P 123/77 04/24 1113 B/P Mean 92.5 04/24 1113 Temp 98.8 04/24 1113 Pulse 74 04/24 1113 Resp 16 04/24 1113 O2 Delivery Room air 04/24 1025 O2 [...] range of motion, painless range of motion Neuro/HARDWOOD SAWYER: alert, oriented X 3 Psychiatry: normal affect, [...] 04/24 04/24 04/24 04/23 1108 1013 0645 0301 2019 Chemistry Sodium (134 - 147 mEq/L) [...] % (Auto) (14.0 - 32.0 %) 21.2 Mariposa % (Auto) (4.8 - 9.0 %) 7.9 Eos % (Auto) (0.3 - 3.7 %) 1.9 Baso % (Auto) (0.0 - 2.0 %) 0.4 Neut # (Auto) (2.0 - 7.6 x10 3/uL) 5.28 Lymph # (Auto) (1.0 - 3.8 x10 3/uL) 1.65 Mariposa # (Auto) (0.1 - 0.8 x10 3/uL) [...] known prior cardiovascular disease. Patient transferred from [facility], referred to us from Dr. Forde for acute coronary syndrome, unstable angina, ischemic heart disease status post coronary angiogram, with findings of multivessel CAD, EF 50%. 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 Patient reports dyspnea on exertion and mild chest pain x1 year. 04/18/23: Coronary angiogram done at [facility] Left main patent LAD with high-grade and [...] full code Plan discussed with: patient, collaborating , nurse at 1259 at 0519 RPT #:[id number] END OF REPORT [facility] 2023-04-24 11:55:00 [facility] Internal Medicine Prog. Note REPORT#:[id number] REPORT STATUS: Signed REPORT INITIALIZATION DATE:04/24/23 TIME: 1155 PATIENT: JONG RIVAS UNIT #: [id number] ROOM/BED: [facility]-1 : 66 AGE: 58 SEX: M ATTEND: [...] Pulse 74 04/24 1113 Resp 16 04/24 1113 O2 Delivery Room air 04/24 1025 O2 [...] no cyanosis Results Findings/Data: Laboratory Tests 04/24/23 0301: [Embedded Image Not Available] Laboratory Tests 04/24 04/24 04/24 04/24 04/23 1108 1013 0645 0301 2019 Chemistry Sodium (134 - 147 mEq/L) [...] % (Auto) (14.0 - 32.0 %) 21.2 Mariposa % (Auto) (4.8 - 9.0 %) 7.9 Eos % (Auto) (0.3 - 3.7 %) 1.9 Baso % (Auto) (0.0 - 2.0 %) 0.4 Neut # (Auto) (2.0 - 7.6 x10 3/uL) 5.28 Lymph # (Auto) (1.0 - 3.8 x10 3/uL) 1.65 Mariposa # (Auto) (0.1 - 0.8 x10 3/uL) [...] and all concerns addressed at 1156 RPT #:[id number] END OF REPORT [facility] 2023-04-23 17:47:00 [facility]) Endocrinology Progress Note REPORT#:[id number] REPORT STATUS: Signed REPORT INITIALIZATION DATE:04/23/23 TIME: 1746 PATIENT: JONG RIVAS UNIT #: [id number] ROOM/BED: [place] [address] : 67 AGE: 58 SEX: M ATTEND: Domenic Rainey MD ADM AUTHOR: Vlad Lay MD REPT SERVICE DT/TIME: 04/23/231746 * ALL edits or amendments must be made on the electronic/computer document * Subjective Patient reports: no complaints Objective General VS: Last Documented: Result Date Time Pulse Ox 96 04/23 155 B/P 127/72 04/23 1555 B/P Mean 0.0 04/23 155 O2 Delivery Room air 04/23 155 Temp 36.9 04/23 155 Pulse 61 04/23 155 Resp 12 04/23 155 PATIENT WEIGHT: Weight (lb): 230 Weight (oz): [...] % (Auto) (14.0 - 32.0 %) 18.0 Mariposa % (Auto) (4.8 - 9.0 %) 8.4 Eos % (Auto) (0.3 - 3.7 %) 0.8 Baso % (Auto) (0.0 - 2.0 %) 0.4 Neut # (Auto) (2.0 - 7.6 x10 3/uL) 7.28 Lymph # (Auto) (1.0 - 3.8 x10 3/uL) 1.82 Mariposa # (Auto) (0.1 - 0.8 x10 3/uL) [...] % (Auto) (14.0 - 32.0 %) 23.5 Mariposa % (Auto) (4.8 - 9.0 %) 7.4 Eos % (Auto) (0.3 - 3.7 %) 2.0 Baso % (Auto) (0.0 - 2.0 %) 0.6 Neut # (Auto) (2.0 - 7.6 x10 3/uL) 5.66 Lymph # (Auto) (1.0 - 3.8 x10 3/uL) 2.01 Mariposa # (Auto) (0.1 - 0.8 x10 3/uL) [...] % (Auto) (14.0 - 32.0 %) 27.0 Mariposa % (Auto) (4.8 - 9.0 %) 8.9 Eos % (Auto) (0.3 - 3.7 %) 1.7 Baso % (Auto) (0.0 - 2.0 %) 0.7 Neut # (Auto) (2.0 - 7.6 x10 3/uL) 4.28 Lymph # (Auto) (1.0 - 3.8 x10 3/uL) 1.89 Mariposa # (Auto) (0.1 - 0.8 x10 3/uL) [...] pH (5.0 - 7.0) 5.0 Ur Specific Asher (1.005 - 1.030) 1.011 Urine Protein (NEGATIVE) [...] INR (0.8 - 1.2) 1.3 H PTT (Clarendon) (25.0 - 39.5 Seconds) 39.3 PT Patient/Control [...] dose. Diabetes dietary education. at 1747 RPT #:[id number] END OF REPORT [facility] 2023-04-23 14:14:00 [facility] Cardiothoracic Surgery Prog REPORT#:[id number] REPORT STATUS: Signed REPORT INITIALIZATION DATE:04/23/23 TIME: 1413 PATIENT: JONG RIVAS UNIT #: [id number] ROOM/BED: 3357-1 : 66 AGE: 58 SEX: M ATTEND: Domenic Rainey MD ADM AUTHOR: Mirian Robin SCREEN MAKING TECHNICIAN REPT SERVICE DT/TIME: 04/23/231413 * ALL edits or amendments must be [...] Ox 96 04/23 1114 B/P 134/79 04/23 1114 B/P Mean 0.0 04/23 1114 O2 Delivery Room air 04/23 1114 Temp 97.9 04/23 1114 Pulse 62 04/23 1114 Resp 16 04/23 1114 24 hour I O ending at 0700: [...] range of motion, painless range of motion Neuro/HARDWOOD SAWYER: alert, oriented X 3 Psychiatry: normal affect, [...] 04/23 04/23 04/22 1110 0703 0330 0330 2121 Chemistry Sodium (134 - 147 mEq/L) 137 [...] % (Auto) (14.0 - 32.0 %) 18.0 Mariposa % (Auto) (4.8 - 9.0 %) 8.4 Eos % (Auto) (0.3 - 3.7 %) 0.8 Baso % (Auto) (0.0 - 2.0 %) 0.4 Neut # (Auto) (2.0 - 7.6 x10 3/uL) 7.28 Lymph # (Auto) (1.0 - 3.8 x10 3/uL) 1.82 Mariposa # (Auto) (0.1 - 0.8 x10 3/uL) [...] tissue swelling. Impression By: Norm Salomon M.D. [facility] - MRI [...] known prior cardiovascular disease. Patient transferred from [facility], referred to us from Dr. Forde for acute coronary syndrome, unstable angina, ischemic heart disease status post coronary angiogram, with findings of multivessel CAD, EF 50%. 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 Patient reports dyspnea on exertion and mild chest pain x1 year. 04/18/23: Coronary angiogram done at [facility] Left main patent LAD with high-grade and [...] cardiovascular surgery, pulmonary at 1419 at 0535 RUST #:[id number] END OF REPORT [facility] 2023-04-23 09:31:00 [facility] Internal Medicine Prog. Note REPORT#:[id number] REPORT STATUS: Signed REPORT INITIALIZATION DATE:04/23/23 TIME: 930 PATIENT: JONG RIVAS UNIT #: [id number] ROOM/BED: [place] [address] : 66 AGE: 58 SEX: M ATTEND: Domenic Rainey MD ADM AUTHOR: Mal Baez DO REPT SERVICE DT/TIME: 04/23/23930 * ALL edits or [...] Ox 95 04/23 0708 B/P 105/66 04/23 07 B/P Mean 0.0 04/23 708 O2 Delivery Room air 04/23 708 Temp 98.4 04/23 708 Pulse 66 04/23 07 Resp 15 04/23 708 24 hour I O ending at 0700: [...] Tests 04/23 04/23 04/22 04/22 0703 0330 6811 1119 Chemistry Sodium (134 - 147 mEq/L) 137 [...] % (Auto) (14.0 - 32.0 %) 18.0 Mariposa % (Auto) (4.8 - 9.0 %) 8.4 Eos % (Auto) (0.3 - 3.7 %) 0.8 Baso % (Auto) (0.0 - 2.0 %) 0.4 Neut # (Auto) (2.0 - 7.6 x10 3/uL) 7.28 Lymph # (Auto) (1.0 - 3.8 x10 3/uL) 1.82 Mariposa # (Auto) (0.1 - 0.8 x10 3/uL) [...] -Follow-up with morning labs at 0934 RPT #:[id number] END OF REPORT [facility] 2023-04-22 17:51:00 [facility] ([facility]) Podiatry Consult Note REPORT#:[id number] REPORT STATUS: Signed REPORT INITIALIZATION DATE:04/22/23 TIME: 1750 PATIENT: JONG RIVAS UNIT #: [id number] ROOM/BED: 3343-1 : 66 AGE: 58 SEX: [...] % (Auto) (14.0 - 32.0 %) 23.5 Mariposa % (Auto) (4.8 - 9.0 %) 7.4 Eos % (Auto) (0.3 - 3.7 %) 2.0 Baso % (Auto) (0.0 - 2.0 %) 0.6 Neut # (Auto) (2.0 - 7.6 x10 3/uL) 5.66 Lymph # (Auto) (1.0 - 3.8 x10 3/uL) 2.01 Mariposa # (Auto) (0.1 - 0.8 x10 3/uL) [...] cardiology, cardiovascular surgery, pulmonary at 2150 RPT #:[id number] END OF REPORT [facility] 2023-04-22 14:16:00 [facility] ([facility]) Endocrinology Progress Note REPORT#:[id number] REPORT STATUS: Signed REPORT INITIALIZATION DATE:04/22/23 TIME: 1415 PATIENT: JONG RIVAS UNIT #: [id number] ROOM/BED: [place] [address] : 66 AGE: 58 SEX: M ATTEND: Domenic Rainey MD ADM AUTHOR: Vlad Lay MD REPT SERVICE DT/TIME: 04/22/23 141 * ALL edits or amendments must be [...] % (Auto) (14.0 - 32.0 %) 23.5 Mariposa % (Auto) (4.8 - 9.0 %) 7.4 Eos % (Auto) (0.3 - 3.7 %) 2.0 Baso % (Auto) (0.0 - 2.0 %) 0.6 Neut # (Auto) (2.0 - 7.6 x10 3/uL) 5.66 Lymph # (Auto) (1.0 - 3.8 x10 3/uL) 2.01 Mariposa # (Auto) (0.1 - 0.8 x10 3/uL) [...] % (Auto) (14.0 - 32.0 %) 27.0 Mariposa % (Auto) (4.8 - 9.0 %) 8.9 Eos % (Auto) (0.3 - 3.7 %) 1.7 Baso % (Auto) (0.0 - 2.0 %) 0.7 Neut # (Auto) (2.0 - 7.6 x10 3/uL) 4.28 Lymph # (Auto) (1.0 - 3.8 x10 3/uL) 1.89 Mariposa # (Auto) (0.1 - 0.8 x10 3/uL) [...] pH (5.0 - 7.0) 5.0 Ur Specific Asher (1.005 - 1.030) 1.011 Urine Protein (NEGATIVE) [...] dose. Diabetes dietary education. at 1417 RPT #:[id number] END OF REPORT [facility] 2023-04-22 12:46:00 [facility] Cardiology Progress Note REPORT#:[id number] REPORT STATUS: Signed REPORT INITIALIZATION DATE:04/22/23 TIME: 1245 PATIENT: JONG RIVAS UNIT #: [id number] ROOM[address]BED: [address] : 66 AGE: 58 SEX: M ATTEND: Domenic Rainey MD ADM AUTHOR: Noemí Nieto MD REPT SERVICE DT/TIME: 04/22/23 1246 * ALL edits or amendments must be made on the electronic/computer document * Subjective HPI: 58-year-old male with past medical history of fon-meqarru-xdncnpeoz diabetes mellitus, hypertension, history of PE previously on anticoagulation, right lung cavitary lesion was seen at [facility] on 04/15/2023 with a complaint of shortness [...] to have UTI. Patient was transferred to [facility] for further work-up including possible evaluation [...] PRN PRN PO Results Findings/Data: Laboratory Tests 04/221 1957 1555 Chemistry Sodium (134 - [...] - 10.5 mg/dL) 9.0 Laboratory Tests 04/22 0421 Hematology WBC (4.5 - 11.0 x10 3/uL) [...] % (Auto) (14.0 - 32.0 %) 23.5 Mariposa % (Auto) (4.8 - 9.0 %) 7.4 Eos % (Auto) (0.3 - 3.7 %) 2.0 Baso % (Auto) (0.0 - 2.0 %) 0.6 Neut # (Auto) (2.0 - 7.6 x10 3/uL) 5.66 Lymph # (Auto) (1.0 - 3.8 x10 3/uL) 2.01 Mariposa # (Auto) (0.1 - 0.8 x10 3/uL) [...] XR FOOT 3 + V LT 04/21 0895 Report Impression - Status: SIGNED Entered: 04/21/2023 [...] 10 mg daily. at 1248 at 1015 RUST #:[id number] END OF REPORT [facility] 2023-04-22 10:49:00 [facility] ([facility]) Infectious Dis. Progress Note REPORT#:[id number] REPORT STATUS: Signed REPORT INITIALIZATION DATE:04/22/23 TIME: 104 PATIENT: JONG RIVAS UNIT #: [id number] ROOM/BED: [place] [address] : 66 AGE: 58 SEX: M ATTEND: [...] 04/22 1743 O2 Delivery Room air 04/22 035 Vital Signs: Date Time Temp Pulse Resp [...] no distention Extremities: no cyanosis, no edema Neuro/HARDWOOD SAWYER: alert, 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 Rivas is a 58-year-old male with history of diabetes mellitus type 2, hypertension, prior smoking history, chronic PE, chronic left foot ulcer. He was admitted at [facility] with complaints of chest pain. He had [...] so far x2. -MRSA screen negative. -Called [facility] today. Patient's blood cultures have been negative [...] started 04/21/2023, day 2 at 1828 RPT #:[id number] END OF REPORT [facility] 2023-04-22 09:47:00 [facility] ([facility]) Pharmacy Prog.Note-Vancomycin REPORT#:[id number] REPORT STATUS: Signed REPORT INITIALIZATION DATE:04/22/23 TIME: 946 PATIENT: JONG RIVAS UNIT #: [id number] ROOM/BED: [place] [address] : 66 AGE: 58 SEX: M ATTEND: Domenic Rainey MD ADM AUTHOR: Hedy Donaldson [facility] REPT SERVICE DT/TIME: 04/22/23 0947 * ALL edits or amendments must be [...] at 0700 04/22 0700 04/21 1900 04/21 0704/20 19004/20 0700 1900 Intake 450.00 1360.00 Total Output 700 550 425 900 Total Balance -250.00 810.00 -425 -900 Intake, IV 250.00 560.00 Intake, 200 800 Oral Number 1 Bowel Movements Output, 700 550 425 900 Urine Patient 105.2 kg 115.6 kg 106.6 kg Weight Weight Standing Standing Standing scale scale scale Measuremen t Method 72 Hour I O Total 04/22 07 Intake Total 1810.00 Output Total 1250 425 900 Balance 560.00 -425 -900 Labs: Laboratory Test : 04/22 04/21 04/20 04/20 0421 0132 1055 0318 Chemistry BUN (7 - 25 mg/dL) 17 18 17 19 Creatinine (0.6 - 1.3 mg/dL) 0.9 1.1 1.0 1.1 Hematology WBC (4.5 - 11.0 x10 3/uL) 8.6 7.0 6.6 Microbiology: 04/21 1535 BLOOD: Blood Culture - RECD [...] at 0230. Will hand off to night [facility] for f/u. * Pharmacy will continue to monitor and adjust dose as warranted. at 0949 RPT #:[id number] END OF REPORT [facility] 2023-04-21 17:36:00 [facility] Endocrinology Progress Note REPORT#:[id number] REPORT STATUS: Signed REPORT INITIALIZATION DATE:04/21/23 TIME: 1735 PATIENT: JONG RIVAS UNIT #: [id number] [address]BED: [address] : 66 AGE: 58 SEX: M [...] % (Auto) (14.0 - 32.0 %) 27.0 Mariposa % (Auto) (4.8 - 9.0 %) 8.9 Eos % (Auto) (0.3 - 3.7 %) 1.7 Baso % (Auto) (0.0 - 2.0 %) 0.7 Neut # (Auto) (2.0 - 7.6 x10 3/uL) 4.28 Lymph # (Auto) (1.0 - 3.8 x10 3/uL) 1.89 Mariposa # (Auto) (0.1 - 0.8 x10 3/uL) [...] pH (5.0 - 7.0) 5.0 Ur Specific Asher (1.005 - 1.030) 1.011 Urine Protein (NEGATIVE) [...] INR (0.8 - 1.2) 1.3 H PTT ([place]) (25.0 - 39.5 Seconds) 39.3 PT Patient/Control [...] Consultants: cardiology, cardiovascular surgery, pulmonary at 1739 RUST #:[id number] END OF REPORT [facility] 2023-04-21 15:07:00 [id number] [place] [address] PATIENT NAME: JONG RIVAS ADMIT DATE: 04/19/23 ACCOUNT NO: [id number] [place] [facility] AGE: 58 REPORT TYPE: CONSULTATION REPORT SEX: [...] Dictated: 04/21/2023 15:07:59 Date Transcribed: 04/21/2023 15:26:20 /REMINGTON/YASMIN Receipt ID: [id number] Authenticated by Jacob Lay MD On 04/26/2023 08:06:10 PM at 0806 PATIENT NAME: JONG RIVAS [facility] 2023-04-21 15:04:00 [facility]) Pharmacy Prog.Note-Vancomycin REPORT#:[id number] REPORT STATUS: Signed REPORT INITIALIZATION DATE:04/21/23 TIME: 150 PATIENT: JONG RIVAS UNIT #: [id number] ROOM/BED: [place] [address] : 66 AGE: 58 SEX: M ATTEND: Domenic Rainey MD ADM [facility]: [facility]: 04/21/23 1504 * ALL edits or amendments must be made on the electronic/computer document * See Addendum Vancomycin Vancomycin Medication Therapy Goal: TROUGH 12-18 MCG/ML Indication for treatment: OM VS and I/O: Vital Signs Date Temp Pulse Resp B/P B/P Mean Pulse Ox FiO2 04/20-04/21 36.7-36.9 66-81 13-20 101-168/65-88 0.0-111.8 93-100 72 hours ending at 0700 04/21 1900 Intake Total Output 425 900 Total Balance -425 -900 Output, 425 900 Urine Patient 115.6 kg 106.6 kg Weight Weight Standing Standing scale scale Measuremen t Method 72 Hour I O Total 04/21 Intake Total Output Total 425 900 Balance -425 -900 Labs: Laboratory Test : 04/21 04/20 04/20 0132 1055 0318 Chemistry BUN (7 - 25 mg/dL) 18 17 19 Creatinine (0.6 - 1.3 mg/dL) 1.1 1.0 1.1 Hematology WBC (4.5 - 11.0 x10 3/uL) 7.0 6.6 Microbiology: 04/21 1320 BLOOD: Blood Culture - ORD 04/21 1320 BLOOD: Blood Culture Gram Stain - ORD 04/21 1320 BLOOD: Blood Culture - ORD 04/21 1320 BLOOD: Blood Culture Gram Stain - ORD [...] Addendum 1: 04/21/23 1558 by Priscilla Davis [facility] Correction: MRSA screen negative. at 1559 RPT #:[id number] END OF REPORT [facility] 2023-04-21 13:51:00 [facility] Cardiothoracic Surgery Prog REPORT#:[id number] REPORT STATUS: Signed REPORT INITIALIZATION DATE:04/21/23 TIME: 1350 PATIENT: JONG RIVAS UNIT #: [id number] ROOM/BED: [place] [address] : 66 AGE: 58 SEX: M ATTEND: [...] known prior cardiovascular disease. Patient transferred from [facility], referred to us from Dr. Forde for acute coronary syndrome, unstable angina, ischemic heart disease status post coronary angiogram, with findings of multivessel CAD, EF 50%. Upon further chart review patient found to have chronic cavitary lung lesion on CT chest pending QuantiFERON, left lower extremity diabetic foot ulcer concerning for osteomyelitis MRI done at [facility] and will upload imaging, foot wound culture [...] 04/21 113 O2 Delivery Room air 04/21 113 Temp 98.2 04/21 1133 Pulse 67 04/21 [...] range of motion, painless range of motion Neuro/HARDWOOD SAWYER: alert, oriented X 3 Psychiatry: normal affect, [...] Tests 04/21 04/21 04/21 04/20 04/20 1128 0926 5526 2014 8507 Chemistry Sodium (134 - 147 mEq/L) 137 [...] Protein (<10.0 mg/L) 25.0 H Laboratory Tests 04/206 Coagulation INR (0.8 - 1.2) 1.3 H PTT (Cla[place]on) (25.0 - 39.5 Seconds) 39.3 PT Patient/Control [...] % (Auto) (14.0 - 32.0 %) 27.0 Mariposa % (Auto) (4.8 - 9.0 %) 8.9 Eos % (Auto) (0.3 - 3.7 %) 1.7 Baso % (Auto) (0.0 - 2.0 %) 0.7 Neut # (Auto) (2.0 - 7.6 x10 3/uL) 4.28 Lymph # (Auto) (1.0 - 3.8 x10 3/uL) 1.89 Mariposa # (Auto) (0.1 - 0.8 x10 3/uL) [...] pH (5.0 - 7.0) 5.0 Ur Specific Asher (1.005 - 1.030) 1.011 Urine Protein (NEGATIVE) [...] Report Impression - Status: SIGNED Entered: 2023 8077 IMPRESSION: No hemodynamically significant narrowing noted involving [...] known prior cardiovascular disease. Patient transferred from [facility], referred to us from Dr. Forde for acute coronary syndrome, unstable angina, ischemic heart disease status post coronary angiogram, with findings of multivessel CAD, EF 50%. 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 Patient reports dyspnea on exertion and mild chest pain x1 year. 04/18/23: Coronary angiogram done at [facility] Left main patent LAD with high-grade and [...] discussed with: patient, collaborating MD, nurse at 0345 at 3287 RPT #:[id number] END OF REPORT [facility] 2023-04-21 11:49:00 [facility] ([facility]) Infect Disease Consult Note REPORT#:[id number] REPORT STATUS: Signed REPORT INITIALIZATION DATE:04/21/23 TIME: 114 PATIENT: JONG RIVAS UNIT #: [id number] ROOM/BED: [place] [address] : 67 AGE: 58 SEX: M ATTEND: Domenic Rainey MD ADM AUTHOR: Kirk Wakefield MD REPT SERVICE DT/TIME: 04/21/23 1149 * ALL edits or amendments must be made on the electronic/computer document * History of Present Illness Requesting Clinician: Mirian Robin NP Reason for consult: Recent culture positive wound, CABG eval HPI: Mr. Rivas is a 58-year-old male with history of diabetes mellitus type 2, hypertension, prior smoking history, chronic PE, chronic left foot ulcer. He was admitted at [facility] with complaints of chest pain. He had [...] 101/65 04/21 1133 B/P Mean 0.0 04/21 1133 O2 Delivery Room air 04/21 1133 Temp [...] no distention Extremities: no cyanosis, no edema Neuro/HARDWOOD SAWYER: alert, oriented X 3, no motor deficits Skin: normal turgor, no rash Psychiatry: normal affect, normal mood Results Findings/Data: Laboratory Tests 04/21 04/21 04/20 04/20 0931 0132014 Chemistry Sodium (134 - 147 mEq/L) 137 [...] Protein (<10.0 mg/L) 25.0 H Laboratory Tests 04/206 Coagulation INR (0.8 - 1.2) 1.3 H PTT (Jalen) (25.0 - 39.5 Seconds) 39.3 PT Patient/Control Mix (9.3 - 12.9 SECONDS) 14.5 H Laboratory Tests 04/2131 013 Hematology WBC (4.5 - 11.0 x10 3/uL) [...] % (Auto) (14.0 - 32.0 %) 27.0 Mariposa % (Auto) (4.8 - 9.0 %) 8.9 Eos % (Auto) (0.3 - 3.7 %) 1.7 Baso % (Auto) (0.0 - 2.0 %) 0.7 Neut # (Auto) (2.0 - 7.6 x10 3/uL) 4.28 Lymph # (Auto) (1.0 - 3.8 x10 3/uL) 1.89 Mariposa # (Auto) (0.1 - 0.8 x10 3/uL) [...] pH (5.0 - 7.0) 5.0 Ur Specific Asher (1.005 - 1.030) 1.011 Urine Protein (NEGATIVE) [...] additional details. Impression By: Valentina Montgomery M.D. Diagnosis, Assessment Plan Free Text [...] were negative at 48 hours. -Will call [facility] to get updated culture results. -Would not [...] early versus late surgery. Discussed with Dr. Dowd at bedside. Thank you for the consult. We will follow the patient with you. at 1212 RPT #:[id number] END OF REPORT [facility] 2023-04-21 09:08:00 [facility] ([facility]) Pulmonary Consult Note - Brief REPORT#:[id number] REPORT STATUS: Signed REPORT INITIALIZATION DATE:04/21/23 TIME: 907 PATIENT: JONG RIVAS UNIT #: [id number] ROOM/BED: 3357-1 : 67 AGE: 58 SEX: M ATTEND: Domenic Rainey MD ADM AUTHOR: Gil Klein MD REPT SERVICE DT/TIME: 04/21/23907 * ALL edits or amendments must be [...] Result Date Time Pulse Ox 93 04/21 0736 B/P 110/68 04/21 0736 B/P Mean 0.0 04/21 736 O2 Delivery [...] distention Extremities: no edema Musculoskeletal: normal inspection Neuro/HARDWOOD SAWYER: alert, oriented X 3, CNII-XII intact, no motor deficits Skin: intact at 1009 RPT #:[id number] END OF REPORT [facility] 2023-04-21 08:46:00 [facility] ([facility]) Wound Care Consultation Note REPORT#:[id number] REPORT STATUS: Signed REPORT INITIALIZATION DATE:04/21/23 TIME: 845 PATIENT: JONG RIVAS UNIT #: [id number] ROOM/BED: [place] [address] : 67 AGE: 58 SEX: M ATTEND: [...] will need surgical intervention. at 0855 RPT #:[id number] END OF REPORT [facility] 2023-04-21 07:09:00 [facility] Cardiology Progress Note REPORT#:[id number] REPORT STATUS: Signed REPORT INITIALIZATION DATE:04/21/23 TIME: 708 PATIENT: JONG RIVAS UNIT #: [id number] ROOM/BED: [place] [address] : 67 AGE: 58 SEX: M ATTEND: Domenic Rainey MD ADM AUTHOR: Noemí Nieto MD REPT SERVICE DT/TIME: 04/21/23 0709 * ALL edits or amendments must be made on the electronic/computer document * Subjective HPI: 58-year-old male with past medical history of fyn-hemprdx-xexlwewgb diabetes mellitus, hypertension, history of PE previously on anticoagulation, right lung cavitary lesion was seen at [facility] on 04/15/2023 with a complaint of shortness [...] to have UTI. Patient was transferred to [facility] for further work-up including possible evaluation [...] Tests 04/21 04/21 04/21 04/20 04/20 1128 0963 0230 9234 3767 Chemistry Sodium (134 - 147 mEq/L) 137 [...] % (Auto) (14.0 - 32.0 %) 27.0 Mariposa % (Auto) (4.8 - 9.0 %) 8.9 Eos % (Auto) (0.3 - 3.7 %) 1.7 Baso % (Auto) (0.0 - 2.0 %) 0.7 Neut # (Auto) (2.0 - 7.6 x10 3/uL) 4.28 Lymph # (Auto) (1.0 - 3.8 x10 3/uL) 1.89 Mariposa # (Auto) (0.1 - 0.8 x10 3/uL) [...] pH (5.0 - 7.0) 5.0 Ur Specific Asher (1.005 - 1.030) 1.011 Urine Protein (NEGATIVE) [...] foot infection. at 1325 at 1014 RPT #:[id number] END OF REPORT [facility] 2023 14:51:00 THIS REPORT HAS BEEN APPENDED [id number] [place] [address] PATIENT NAME: JONG RIVAS ADMIT DATE: 04/19/23 ACCOUNT NO: [id number] ROOM NO: [id number] AGE: 58 REPORT TYPE: eECHOCARDIOGRAM REPORT SEX: M ADMITTING PHYSICIAN:Domenic Rainey MD ATTENDING PHYSICIAN:Domenic Rainey MD *[place] [address] Transthoracic Echocardiogram Patient: Jong Rivas Study Date: 2023 BP: 109 / 71 Location: [facility] URN: [id number] : 1965 Age: 58 Height: 69 in / 175.3 cm Gender: M Weight: 238.5 lb / 108.4 kg BMI/BSA: 35.3 kg/m 2 / 2.34 m 2 *Ordering Physician: * Mirian Robin *Interpreting Physician: * Noemí Nieto *Cable Stretcher And Tester: * Hoa Osborn Indications: CARDIAC SURGERY PRE [...] cm 2 --------- Pulmonic valve Value Ref MO v, ED 0.65 m/sec --------- Aortic root [...] SECTION 2 ADDENDUM 1: 07/05/23 1555 GCD.CPS *[address] [address] Transthoracic Echocardiogram (Report amended [id number]:30) Patient: Jong Rivas PATIENT NAME: JONG RIVAS Study Date: 2023 BP: 109 / 71 Location: [facility] URN: [id number] : 1965 Age: 58 Height: 69 in / 175.3 cm Gender: M Weight: 238.5 lb / 108.4 kg BMI/BSA: 35.3 kg/m 2 / 2.34 m 2 *Ordering Physician: * Mirian Robin *Interpreting Physician: * Job Guerrero MD *Cable Stretcher And Tester: * Hoa Osborn Indications: CARDIAC SURGERY PRE [...] 3.0 cm 2 Pulmonic valve Value Ref MO v, ED 0.65 m/sec Aortic root Value [...] MD 07/05/2023 15:55 PATIENT NAME: JONG RIVAS [facility] 2023 13:46:00 [facility] ([facility] Cardiology Consultation REPORT#:[id number] REPORT STATUS: Signed REPORT INITIALIZATION DATE:04/20/23 TIME: 1345 PATIENT: JONG RIVAS UNIT #: [id number] ROOM/BED: [address] : [address] AGE: 58 SEX: M ATTEND: Domenic Rainey MD ADM AUTHOR: Noemí Nieto MD REPT SERVICE DT/TIME: 04/20/23 1346 * ALL edits or amendments must be made on the electronic/computer document * History of Present Illness HPI HPI: 58-year-old male with past medical history of [id number] diabetes mellitus, hypertension, history of PE previously on anticoagulation, right lung cavitary lesion was seen at [facility] on 04/15/2023 with a complaint of shortness [...] to have UTI. Patient was transferred to [facility] for further work-up including possible evaluation [...] - 12.9 SECONDS) 15.5 H Laboratory Tests 04/208 Hematology WBC (4.5 - 11.0 x10 3/uL) [...] % (Auto) (14.0 - 32.0 %) 25.9 [place]osa % (Auto) (4.8 - 9.0 %) 9.7 H Eos % (Auto) (0.3 - 3.7 %) 1.8 Baso % (Auto) (0.0 - 2.0 %) 0.6 Neut # (Auto) (2.0 - 7.6 x10 3/uL) 4.06 Lymph # (Auto) (1.0 - 3.8 x10 3/uL) 1.71 Mariposa # (Auto) (0.1 - 0.8 x10 3/uL) [...] - 0.1 x10 3/uL) 0.00 Laboratory Tests 11/01 0315 Chemistry B-Natriuretic Peptide (0 - 100 [...] daily. - at 1441 at 1013 RPT #:[id number] END OF REPORT [facility] 2023 10:42:00 [id number] [place] [address] PATIENT NAME: JONG RIVAS ADMIT DATE: 04/19/23 ACCOUNT NO: [id number] ROOM NO: [facility] AGE: 58 REPORT TYPE: eELECTROCARDIOGRAM REPORT SEX: M ADMITTING PHYSICIAN:Domenic Rainey MD ATTENDING PHYSICIAN:Domenic Rainey MD Order: [id number] Test Reason : PREOP Test Date/Time Stamp: [...] MD at 1126 PATIENT NAME: JONG RIVAS [facility] 2023 10:16:00 [facility] ([facility]) History Physical - Adult REPORT#:[id number] REPORT STATUS: Signed REPORT INITIALIZATION DATE:04/20/23 TIME: 1016 PATIENT: JONG RIVAS UNIT #: [id number] ROOM/BED: [place] [address] : 67 AGE: 58 SEX: M ATTEND: Domenic Rainey MD ADM AUTHOR: Mirian Robin SCREEN MAKING TECHNICIAN REPT SERVICE DT/TIME: 04/20/23 1016 * ALL edits or amendments must be made on the electronic/computer document * Mirian Robin Ayla 04/20/23 1016: History of Present Illness HPI Chief complaint: CABG Eval HPI: 57-year-old male, poor historian, PMHx diabetes on metformin, neuropathy, HTN, former smoker, PE chronic nonhealing left foot ulcer at the fifth metatarsal located posterior lateral, with no known prior cardiovascular disease. Patient transferred from [facility], referred to us from Dr. Forde for acute coronary syndrome, unstable angina, ischemic heart disease status post coronary angiogram, with findings of multivessel CAD, EF 50%. Upon further chart review patient found to have chronic cavitary lung lesion on CT chest pending QuantiFERON, left lower extremity diabetic foot ulcer concerning for osteomyelitis MRI done at [facility] and will upload imaging, UTI with urine [...] 429 98.2 67 16 123/79 94.0 98 04/19 [...] Musculoskeletal: full range of motion, normal inspection Neuro/HARDWOOD SAWYER: alert, oriented X 3 Psychiatry: no hallucinations, normal affect, normal judgment/insight, normal mood Results Findings/Data: Laboratory Tests: 04/20 04/20 04/20 04/19 0757 0318 [id number] 2022 Chemistry Sodium (134 - 147 mEq/L) [...] % (Auto) (14.0 - 32.0 %) 25.9 Mariposa % (Auto) (4.8 - 9.0 %) 9.7 H Eos % (Auto) (0.3 - 3.7 %) 1.8 Baso % (Auto) (0.0 - 2.0 %) 0.6 Neut # (Auto) (2.0 - 7.6 x10 3/uL) 4.06 Lymph # (Auto) (1.0 - 3.8 x10 3/uL) 1.71 Mariposa # (Auto) (0.1 - 0.8 x10 3/uL) [...] carotid arteries (less than 50%). Impression By: HelderVBMonica Christina M.D. RADIOLOGY - XR CHEST 1 [...] Physician 04/21 0607 Active Educate/Teach Patient 04/21 0526 Active Notify MD: Hypoglycemia 04/21 0526 Active Hypoglycemia Orders 04/21 0526 Active Educate/Teach Hypoglycemia 04/21 0526 Active Endocrinology Physician Cons. 04/21 0524 Active MAGNESIUM 04/21 0500 Complete Consultants: cardiology, cardiovascular surgery, pulmonary Plan discussed with: patient, collaborating MD, nurse Free Text DxA P Notes Free Text DxA P Notes: 57-year-old male, poor historian, PMHx diabetes on metformin, neuropathy, HTN, former smoker, PE chronic nonhealing left foot ulcer at the fifth metatarsal located posterior lateral, with no known prior cardiovascular disease. Patient transferred from [facility], referred to us from Dr. Forde for acute coronary syndrome, unstable angina, ischemic heart disease status post coronary angiogram, with findings of multivessel CAD, EF 50%. 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 Patient reports dyspnea on exertion and mild chest pain x1 year. 04/18/23: Coronary angiogram done at [facility] Left main patent LAD with high-grade and [...] ALEXANDRU Bowie. at 1351 at 0534 RPT #:[id number] END OF REPORT [facility] 2023-04-19 22:36:00 [id number] [place] [address] PATIENT NAME: JONG RIVAS ADMIT DATE: 04/19/23 ACCOUNT NO: [id number] ROOM NO: [id number] AGE: 58 REPORT TYPE: eELECTROCARDIOGRAM REPORT SEX: M ADMITTING PHYSICIAN:Domenic Rainey MD ATTENDING PHYSICIAN:Domenic Rainey MD Order: [id number] Test Reason : cad Test Date/Time Stamp: [...] MD at 1126 PATIENT NAME: JONG RIVAS [facility] 2023-01-20 17:41:01 Formatting of this n ote [...] in no apparent distress, Antonia Restrepo RN [facility] 2023-01-20 15:31:18 Formatting of this n ote might be different from the original. Pt arrived ambulatory with complaints of "feeling like shit." Pt reports his blood sugar has been running high in the 300-400s. Pt takes metformin and gliperide. Pt reports increased tiredness thirst and urination. Leah Breen RN [facility]
--- NOTE | 2025-01-23 15:37 | ER ---
Nurse's Notes [facility] [place] Name: Boyd Jones Age: 59 yrs Sex: Male : 1965 Arrival Date: 01/23/2025 Time: 14:59 Bed 16 Private MD: Diagnosis: Diabetic foot wound Presentation: 01/23 15:12 Chief complaint: Patient states: he has had a wound to left foot/great toe for a while me1 but it started changing about a week ago. Here to have it checked. Coronavirus screen: At this time, the client does not indicate any symptoms associated with coronavirus-19. Ebola Screen: No symptoms or risks identified at this time. Initial Sepsis Screen: Does the patient meet any 2 criteria? No. Patient's initial sepsis screen is negative. Does the patient have a suspected source of infection? No. Patient's initial sepsis screen is negative. Risk Assessment: Do you want to hurt yourself or someone else? Patient reports no desire to harm self or others. Onset of symptoms is unknown. 15:12 Method Of Arrival: Ambulatory [facility] 15:12 Acuity: LARISSA 3 me1 Historical: - Allergies: 15:15 No Known Allergies; me1 - PMHx: 15:15 Diabetes - NIDDM; Gout; Hypertensive disorder; me1 - PSHx: 15:15 triple bypass; Operative procedure on knee; right BKA; me1 - Immunization history:: Adult Immunizations up to date. - Infectious Disease History:: Denies. - Social history:: Smoking status: Patient denies any tobacco usage or history of. Screenin:46 [facility] ED Fall Risk Assessment (Adult) History of falling in the last 3 months, kc6 including since admission No falls in past 3 months (0 pts) Confusion or Disorientation No (0 pts) Intoxicated or Sedated No (0 pts) Impaired Gait No (0 pts) Mobility Assist Device Used No (0 pt) Altered Elimination No (0 pt) Score/Fall Risk Level 0 - 2 = Low Risk Oriented to surroundings. Abuse screen: Denies threats or abuse. Denies injuries from another. Nutritional screening: No deficits noted. Tuberculosis screening: No symptoms or risk factors identified. Assessment: 15:45 General: Appears in no apparent distress. comfortable, well groomed, well developed, kc6 Behavior is calm, cooperative, appropriate for age, Denies fever, chills. Pain: Denies pain. Neuro: Level of Consciousness is awake, alert, obeys commands, Oriented to person, place, time, situation, Appropriate for age. Cardiovascular: Capillary refill < 3 seconds. Respiratory: Airway is patent Trachea midline Respiratory effort is even, unlabored, Respiratory pattern is regular, symmetrical. GI: No signs and/or symptoms were reported involving the gastrointestinal system. : No signs and/or symptoms were reported regarding the genitourinary system. EENT: No signs and/or symptoms were reported regarding the EENT system. Derm: Skin is healthy with good turgor, Skin is pink, warm \T\ dry. Wound noted ball of left foot Wound is open, without redness, swelling or drainage. Musculoskeletal: Amputation of right leg. Vital Signs: 15:12 BP 162 / 96; Pulse 86; Resp 18; Temp 98.3; Pulse Ox 100% ; Weight 58.97 kg; Height 5 me1 ft. 9 in. ; Pain 0/10; 15:12 Body Mass Index 19.20 (58.97 kg, 175.26 cm) me1 15:12 Pain Scale: Adult me1 ED Course: 15:04 Patient arrived in ED. al6 15:05 Liset Goldberg MD is Attending Physician. sp3 15:14 Triage completed. me1 15:15 Arm band placed on Patient placed in an exam room. me1 15:17 Selina Greco, RN is Primary Nurse. kc6 15:46 Patient has correct armband on for positive identification. Bed in low position. Call kc6 light in reach. Side rails up X 1. Pulse ox on. NIBP on. Door closed. Noise minimized. Lights dimmed. Pillow given. Verbal reassurance given. 15:46 No provider procedures requiring assistance completed. Patient did not have IV access kc6 during this emergency room visit. Patient maintains SpO2 saturation greater than 95% on room air. Administered Medications: No medications were administered Medication: 15:46 VIS not applicable for this client. kc6 Outcome: 15:36 Discharge ordered by . sp3 15:46 Discharged to home ambulatory, kc6 15:46 Condition: good 15:46 Discharge instructions given to patient, Instructed on discharge instructions, follow up and referral plans. medication usage, wound care, Demonstrated understanding of instructions, follow-up care, medications, wound care, Prescriptions given X 1, 15:46 Patient left the ED. kc6 Signatures: Liset Goldberg MD MD sp3 Selina Greco RN RN kc6 Nelida Ash RN RN me1 Arcelia Cr6 Corrections: (The following items were deleted from the chart) 15:15 15:15 PSHx: r knee SX; me1 me1
--- NOTE | 2025-01-23 15:37 | EDPHYS ---
Physician Documentation [facility] Name: Boyd Jones Age: 59 yrs Sex: Male : 1965 Arrival Date: 01/23/2025 Time: 14:59 Bed 16 Private MD: ED Physician Liset Goldberg HPI: 01/23 15:25 This 59 yrs old Male presents to ER via Ambulatory with complaints of Wound Check. sp3 15:25 59-year-old male with left plantar diabetic wound for evaluation. Patient states she sp3 does not have enough money to get it seen at the wound care center and wants to make sure it is not infected. Denies any fever, deep foot pain, ankle or joint pain or any other signs or symptoms on ROS at this time.. Historical: - Allergies: 15:15 No Known Allergies; me1 - PMHx: 15:15 Diabetes - NIDDM; Gout; Hypertensive disorder; me1 - PSHx: 15:15 triple bypass; Operative procedure on knee; right BKA; me1 - Immunization history:: Adult Immunizations up to date. - Infectious Disease History:: Denies. - Social history:: Smoking status: Patient denies any tobacco usage or history of. ROS: 15:25 Constitutional: Negative for fever, chills, and weight loss, Eyes: Negative for injury, sp3 pain, redness, and discharge, ENT: Negative for injury, pain, and discharge, Neck: Negative for injury, pain, and swelling, Cardiovascular: Negative for chest pain, palpitations, and edema, Respiratory: Negative for shortness of breath, cough, wheezing, and pleuritic chest pain, Abdomen/GI: Negative for abdominal pain, nausea, vomiting, diarrhea, and constipation, Back: Negative for injury and pain, Neuro: Negative for headache, weakness, numbness, tingling, and seizure, Psych: Negative for depression, anxiety, suicide ideation, homicidal ideation, and hallucinations, Allergy/Immunology: Negative for hives, rash, and allergies, Endocrine: Negative for neck swelling, polydipsia, polyuria, polyphagia, and marked weight changes, 15:25 All other systems are negative, Exam: 15:25 Constitutional: This is a well developed, well nourished patient who is awake, alert, sp3 and in no acute distress. Head/Face: Normocephalic, atraumatic. Chest/axilla: Normal chest wall appearance and motion. Nontender with no deformity. No lesions are appreciated. Cardiovascular: Regular rate and rhythm with a normal S1 and S2. No gallops, murmurs, or rubs. Normal PMI, no JVD. No pulse deficits. Respiratory: Lungs have equal breath sounds bilaterally, clear to auscultation and percussion. No rales, rhonchi or wheezes noted. No increased work of breathing, no retractions or nasal flaring. Abdomen/GI: Soft, non-tender, with normal bowel sounds. No distension or tympany. No guarding or rebound. No evidence of tenderness throughout. 15:25 Musculoskeletal/extremity: 1 cm plantar diabetic wound noted. No obvious erythema. Proximately 3 to 4 mm deep. No bony exposure. Vital signs are normal and patient is afebrile.. Vital Signs: 15:12 BP 162 / 96; Pulse 86; Resp 18; Temp 98.3; Pulse Ox 100% ; Weight 58.97 kg; Height 5 me1 ft. 9 in. ; Pain 0/10; 15:12 Body Mass Index 19.20 (58.97 kg, 175.26 cm) me1 15:12 Pain Scale: Adult me1 MDM: 15:13 Medical Screening Exam initiated sp3 15:26 Data reviewed: vital signs, nurses notes. ED course: Diabetic wound evaluation. Patient sp3 is not infected and I am not highly suspicious for any other processes including osteomyelitis. Will place on Augmentin prophylactically and I will refer him to surgery for follow-up.. Administered Medications: No medications were administered Disposition Summary: 01/23/25 15:36 Discharge Ordered Notes: Location: Home sp3 Condition: Stable sp3 Diagnosis - Diabetic foot wound sp3 Followup: sp3 - With: Private Physician - When: Upon discharge from the Emergency Department - Reason: Continuance of care Discharge Instructions: - Discharge Summary Sheet sp3 - Diabetes Mellitus and Foot Care sp3 Forms: - Medication Reconciliation Form sp3 - Antibiotic Education sp3 - Prescription Opioid Use sp3 - Patient Portal Instructions sp3 - Leadership Thank You Letter sp3 Prescriptions: - Augmentin 875-125 mg Oral Tablet - take 1 tablet ORAL route every 12 hours for 10 days; 20 tablet; Refills: 0, sp3 Product Selection Permitted Signatures: Liset Goldberg MD MD sp3 Nelida Ash RN RN me1 Corrections: (The following items were deleted from the chart) 15:15 15:15 PSHx: r knee SX; me1 me1
[2025-01-23 15:52] VITALS: BP 162/96; TEMP 98.3; O2SAT 100
== END 2025-01-23 15:46 | disposition home or self-care (01) ==
LOC: ER 14:59
DX: E11.621 Type 2 diabetes mellitus with foot ulcer (principal)
CPT/HCPCS: 99283